=== PATIENT | male | born 1935 | race Caucasian/White ===

== ENCOUNTER 2023-03-10 00:33 | Outpatient (REF) | payer MEDICARE, MEDICAID, SELFPAY ==
[2023-03-10 08:22] LABS: Basophils Absolute Auto 0.1 10^3/uL (0.0-0.1); Basophils Percent Auto 1.4 % (0.2-2.0); Eosinophils Absolute Auto 0.4 10^3/uL (0.0-0.7); Hematocrit 34.1 % (42.0-54.0); Hemoglobin 9.3 g/dL (14.0-18.0); Immature Granulocytes Abs Auto 0.02 10^3/uL (0.00-0.03); Immature Granulocytes Pct Auto 0.3 % (0.0-0.5); Lymphocytes Absolute Auto 2.3 10^3/uL (1.2-3.8); Lymphocytes Percent Auto 32.1 % (20.5-60.0); Mean Corpuscular HGB Conc 27.3 g/dL (29.9-35.2); Mean Corpuscular Hemoglobin 21.5 pg (25.9-34.0); Mean Corpuscular Volume 78.8 fL (80.0-94.0); Mean Platelet Volume 11.3 fL (9.5-13.5); Monocytes Absolute Auto 0.7 10^3/uL (0.3-0.8); Monocytes Percent Auto 9.1 % (1.7-12.0); Neutrophils Absolute Auto 3.7 10^3/uL (1.4-6.5); Neutrophils Percent Auto 52.1 % (43.0-75.0); Platelet Count 313 10^3/uL (150-450); Red Blood Count 4.33 10^6/uL (4.70-6.10); Red Cell Distribution Width 19.9 % (11.0-15.0); White Blood Count 7.1 10^3/uL (4.0-11.0)
[2023-03-10 09:04] LABS: Anion Gap 17.4; BUN Creatinine Ratio 12.2; Carbon Dioxide 26.3 mmol/L (21.0-32.0); Chloride 106 mmol/L (98-107); Estimated GFR (African America 55 (>=60); Estimated GFR (Non-African Ame 45 (>=60); Glucose 89 mg/dL (74-106); Potassium 3.7 mmol/L (3.5-5.1); Sodium 146 mmol/L (136-145)
== END 2023-03-10 00:34 | disposition home or self-care (01) ==
LOC: LAB 00:33
DX: K92.2 Gastrointestinal hemorrhage, unspecified (principal); N17.9 Acute kidney failure, unspecified
CPT/HCPCS: 36415; 80048; 82306; 85025

== ENCOUNTER 2023-03-17 08:45 | Outpatient (OUT) | payer MEDICARE, MEDICAID, SELFPAY ==
[2023-03-17 10:56] LABS: Basophils Absolute Auto 0.1 10^3/uL (0.0-0.1); Eosinophils Absolute Auto 0.4 10^3/uL (0.0-0.7); Eosinophils Percent Auto 7.9 % (0.9-7.0); Hematocrit 29.7 % (42.0-54.0); Hemoglobin 8.2 g/dL (14.0-18.0); Immature Granulocytes Abs Auto 0.02 10^3/uL (0.00-0.03); Immature Granulocytes Pct Auto 0.4 % (0.0-0.5); Lymphocytes Absolute Auto 1.1 10^3/uL (1.2-3.8); Lymphocytes Percent Auto 23.3 % (20.5-60.0); Mean Corpuscular HGB Conc 27.6 g/dL (29.9-35.2); Mean Corpuscular Hemoglobin 21.4 pg (25.9-34.0); Mean Corpuscular Volume 77.3 fL (80.0-94.0); Monocytes Absolute Auto 0.6 10^3/uL (0.3-0.8); Neutrophils Absolute Auto 2.7 10^3/uL (1.4-6.5); Neutrophils Percent Auto 55.4 % (43.0-75.0); Platelet Count 172 10^3/uL (150-450); Red Blood Count 3.84 10^6/uL (4.70-6.10); Red Cell Distribution Width 19.9 % (11.0-15.0); White Blood Count 4.8 10^3/uL (4.0-11.0)
[2023-03-17 10:58] LABS: Percent Iron Saturation 4.3 %
[2023-03-17 11:14] LABS: Alanine Aminotransferase 21 U/L (16-63); Albumin Globulin Ratio 0.9; Albumin Level 3.1 g/dL (3.4-5.0); Alkaline Phosphatase 57 U/L (46-116); Anion Gap 12.2; Aspartate Amino Transferase 18 U/L (15-37); BUN Creatinine Ratio 14.6; Bilirubin Total 0.4 mg/dL (0.2-1.0); Calcium 8.5 mg/dL (8.5-10.1); Carbon Dioxide 28.3 mmol/L (21.0-32.0); Chloride 108 mmol/L (98-107); Estimated GFR (African America 56 (>=60); Estimated GFR (Non-African Ame 46 (>=60); Globulin 3.6 g/dL; Glucose 105 mg/dL (74-106); Potassium 3.5 mmol/L (3.5-5.1); Sodium 145 mmol/L (136-145); Total Protein 6.7 g/dL (6.4-8.2)
[2023-03-18 12:09] LABS: Transferrin 303 mg/dL (149-313)
== END 2023-03-17 08:46 | disposition home or self-care (01) ==
DX: R06.09 Other forms of dyspnea (principal); D64.9 Anemia, unspecified
CPT/HCPCS: 36415; 80053; 82728; 82746; 83540; 83550; 84466; 85025

== ENCOUNTER 2024-01-13 07:51 | Inpatient (IN) | payer MEDICARE, MEDICAID, SELFPAY ==
[2024-01-13] VITALS (68 sets, daily range): BP systolic 82–185; BP diastolic 54–123; PULSE 65–168; RESP 12–20; TEMP 36.3–37.7; O2SAT 89–99; BMI 29.8; BMI 29.7
--- NOTE | 2024-01-13 07:54 | ECG_ITS ---
[facility] Test Date: 2024-01-13 Pat Name: THANH ESPINOZA Department: Room: - Gender: Male [employer]or: : 1935 Requested By: [id number] Order Number: [id number] Reading MD: DOMO SCHROEDER Measurements Intervals [place] Rate: 155 P: -[id number] MO: -98808 QRS: 29 QRSD: 100 T: -77 QT: 326 QTc: 413 Interpretive Statements 01853 Atrial fibrillation with rapid ventricular response 43857 Electronic ventricular pacemaker [address] depression, probably digitalis effect 48928 Twave abnormality, possible inferior ischemia or digitalis effect 0201 -- Analysis based on intrinsic rhythm 9150 abnormal ECG No previous ECG available for comparison Electronically Signed On 01-13-2024 22:31:31 EDT by DOMO SCHROEDER
--- NOTE | 2024-01-13 07:55 | XR_ITS ---
The [address] [address] Patient Name: THANH ESPINOZA MRN: [id number] date: 1935 Sex: M Assigned Patient Location: ER Current Patient Location: ER Accession/Order Number: [id number] Exam Date: 01/13/2024 08:09 Report Date: 01/13/2024 08:29 At the request of: RUDI REGALADO Procedure: XR chest 1V EXAM: Chest one view HISTORY: sob COMPARISON: None. TECHNIQUE: Chest, one view. FINDINGS: There is aortic atherosclerosis and mild to moderate cardiomegaly with cardiac pacemaker device. There is interstitial pulmonary edema with small left effusion and probably a trace right effusion. Bibasilar opacities noted. No pneumothorax. XR/XR chest 1V IMPRESSION: 1. Cardiomegaly with cardiac pacemaker and mild interstitial pulmonary edema with small left effusion. 2. Bibasilar opacities likely related to atelectasis or congestive changes. No lobar consolidation. Electronically authenticated by: NICHOLAS LUND Date: 01/13/2024 08:29
[2024-01-13] MEDS: IPRATROPIUM BROMIDE 0.5 MG/2.5 ML VIAL.NEB IH (08:16)
[2024-01-13] MEDS: METHYLPREDNISOLONE SOD SUCC PF 125 MG/2 ML VIAL IVP (08:22)
--- OUTSIDE RECORDS SUMMARY | 2024-01-13 08:23 | XMS_ITS | CCD ---
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 Name Role Phone CECILIO, YONI E Unavailable Unavailable CECILIO, YONI E Unavailable Unavailable CECILIO, YONI E Unavailable Unavailable CECILIO, YONI E Unavailable Unavailable CECILIO, YONI Unavailable Unavailable CECILIO, YONI Unavailable Unavailable MARINA, BOO L Unavailable Unavailable CECILIO, YONI Unavailable Unavailable CECILIO, YONI Unavailable Unavailable SALAS BOO L Unavailable Unavailable CECILIO, YONI Unavailable Unavailable MARINA BOO L Unavailable Unavailable CECILIO, YONI Unavailable Unavailable Wartmann, Turner Unavailable Unavailable Marina Boo Unavailable Unavailable Warsherwinann, Turner Unavailable Unavailable Boo Marina DO Primary Care Provider Luke Beach DO Unavailable Boo Marina DO Primary Care Provider Luke Beach DO Unavailable BOO MARINA DO Primary Care Physician Boo Marina DO Primary Care Provider CAMRYN DAVILA Attending Unavailable CAMRYN DAVILA Admitting Unavailable BOO MARINA Primary Care Unavailable Boo Marina DO Primary Care Provider Luke Beach DO Unavailable KAREEM SHEN MD Attending Unavailable BOO MARINA DO Primary Care Unavailable KAREEM SHEN MD Admitting Unavailable KAREEM SHEN MD Attending Unavailable BOO MARINA DO Primary Care Unavailable KAREEM SHEN MD Admitting Unavailable PRZYBYSZ MD, SILVIA Consulting Unavailable AC PILLAI, KAREEM Consulting Unavailable MARINA DO, BOO Primary Care Unavailable APRYL METCALF DO Admitting Unavailable DAYLIN PILLAI, COLBY Consulting Unavailable SONU RUEDA DO Attending Unavailable Luke Beach DO Unavailable [phone] John RN, Femi Unavailable Unavailabl e MARINA, BOO DO Referring Unavailable IHEONUNEKWU, CHIZITE Attending Unavailable IHEONUNEKWU, CHIZITE Primary Care Unavailable IHEONUNEKWU, CHIZITE Admitting Unavailable MARINA, BOO DO Consulting Unavailable PROVIDER, UNKNOWN Consulting Unavailable CASS WHARTON MD Attending Unavailable CASS WHARTON MD Primary Care Unavailable CASS WHARTON MD Admitting Unavailable MARINA, BOO DO Consulting Unavailable MARINA, BOO DO Referring Unavailable PROVIDER, UNKNOWN Consulting Unavailable CLEM CARRION MD Attending Unavailable CLEM CARRION MD Primary Care Unavailable CLEM CARRION MD Admitting Unavailable MARINA, BOO DO Consulting Unavailable MARINA, BOO DO Referring Unavailable PROVIDER, UNKNOWN Consulting Unavailable MARINA, BOO DO Referring Unavailable WAYNE, COLBY DO Attending Unavailable WAYNE, COLBY DO Primary Care Unavailable LYLERASHANTI, COLBY DO Admitting Unavailable MARINA, BOO DO Consulting Unavailable PROVIDER, UNKNOWN Consulting Unavailable SATNAM MADRID Attending Unavailable SATNAM MADRID Primary Care Unavailable SATNAM MADRID Admitting Unavailable MARINA, BOO DO Referring Unavailable MARINA, BOO DO Consulting Unavailable PROVIDER, UNKNOWN Consulting Unavailable COLBY MURRAY J Referring Unavailable MARINA, BOO L Primary Care Unavailable ERIC HOFFMAN Admitting Unavailable ERIC HOFFMAN Attending Unavailable TRACEE ESCALONA Referring Unavailable MARINA, BOO David Primary Care Unavailable LUKE SUN Attending Unavailable LUKE SUN Primary Care Unavailable Luke Sun DO Primary Care Provider Nanci Jarvis Primary Care Physician MARINA, BOO L Primary Care Unavailable MARINA, BOO L Referring Unavailable MARINA, BOO L Primary Care Unavailable MARINA, BOO L Attending Unavailable JUAN CARLOS CUADRA Attending Unavailable JUAN CARLOS CUADRA Referring Unavailable MARINA, BOO L Primary Care Unavailable EKTA MANDUJANO Referring Unavailable MARINA, BOO L Primary Care Unavailable EKTA MANDUJANO Attending Unavailable MARINA, BOO L Primary Care Unavailable MARINA, BOO L Primary Care Unavailable CAMRYN DAVILA Attending Unavailable DAVILA CAMRYN Referring Unavailable MARINA, BOO L Referring Unavailable MARINA, BOO L Primary Care Unavailable ZORAIDA HODGE Attending Unavailable MARINA, BOO L Primary Care Unavailable CAMRYN DAVILA Attending Unavailable NIMA DAVILAE Referring Unavailable DAVILACAMRYN Attending Unavailable MARINA, BOO L Primary Care Unavailable ANA MARIA JOLLY Attending Unavailable MARINA, BOO L Primary Care Unavailable DAVILACAMRYN JACINTO Attending Unavailable RIK, ANA MARIA Referring Unavailable MARINA, BOO L Primary Care Unavailable MARINA, BOO L Primary Care Unavailable ZORAIDA HODGE Attending Unavailable MARINA, BOO L Primary Care Unavailable MARINA, BOO L Referring Unavailable Johnny VILLEDA Attending Unavailable Johnny VILLEDA Admitting Unavailable Johnny VILLEDA Referring Unavailable Johnny VILLEDA Attending Unavailable Johnny VILLEDA Admitting Unavailable Pat Castro Attending Unavailable Matheus, Nanci Attending Unavailable Matheus, Nanci Attending Unavailable Nanci Jarvis Attending Unavailable Nanci Jarvis Attending Unavailable Johnny VILLEDA Admitting Unavailable Johnny VILLEDA Attending Unavailable Souleymane BUCK Admitting Unavailable Sourav Canales Attending Unavailable Bela Suero Talal Consulting Unavaila MD Bela Ayers Talal Consulting Unava ilable Bela Suero Talal Consulting Unavaila Bela Ayers Talal Consulting Unavaila ble Johnny VILLEDA Admitting Unavailable Johnny VILLEDA Attending Unavailable Matheus, Nanci Referring Unavailable Johnny VILLEDA Attending Unavailable Johnny VILLEDA Admitting Unavailable NONE, XXXX Referring Unavailable NONE, XXXX Referring Unavailable Elijah Turner Attending Unavailable Elijah Turner Admitting Unavailable Johnny VILLEDA Admitting Unavailable Johnny VILLEDA Attending Unavailable NONE, XXXX Referring Unavailable Johnny VILLEDA Attending Unavailable Johnny VILLEDA Admitting Unavailable NONE, XXXX Referring Unavailable Johnny VILLEDA Admitting Unavailable Johnny VILLEDA Referring Unavailable Johnny VILLEDA Attending Unavailable Johnny VILLEDA Attending Unavailable Johnny VILLEDA Admitting Unavailable Johnny VILLEDA Referring Unavailable Johnny VILLEDA Referring Unavailable Lavell Winters Attending Unavailable Lavell Winters Admitting Unavailable Pat Castro Attending Unavailable Johnny Villeda Referring Unavailable Johnny Villeda Attending Unavailable Johnny Villeda Admitting Unavailable Kareem Epperson Consulting Unavaila Kareem Javier Consulting Unavaila Kareem Javier Consulting Unavaila ble ERIC WILLOUGHBY Attending Unavailable ERIC WILLOUGHBY Attending Unavailable ERIC WILLOUGHBY Attending Unavailable NATALIE TURK Attending Unavailable ERIC WILLOUGHBY Attending Unavailable NATALIE TURK Attending Unavailable ANTONINA ARENAS Attending Unavailable Allergies Allergy Classification Reported Allergen(s) Allergy Type Date of Onset Reaction(s) Facility (20 sources) Dust; 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: [DUST] Propensity to adverse reactions (disorder) 8 Other: See Comments [facility] Repository (20 sources) Grass pollen; 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: [GRASS POLLEN] Propensity to adverse reactions to drug (disorder) 8 Other: See Comments [facility] Repository (20 sources) Mold spore; 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: [MOLD SPORES] Propensity to adverse reactions (disorder) 8 Other: See Comments [facility] Repository (9 sources) Banana Extract; 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: [BANANA] Drug Allergy 3 Itching [facility] (1 source) No Known Medication Allergies; 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: [No Known Medication Allergies] Propensity to adverse reactions (disorder) [facility] Repository Medications Current Medications Medication Drug Class(es) Dates Sig (Normalized) Sig (Original) Adult nebulizer with mask and tubing (8 sources) Start: 03-14-2023 Adult nebulizer with mask and tubing Adult nebulizer with mask and tubing, See Instructions, 1 EA, 0, Adult nebulizer with mask and tubing, uses q4h prn, Supply Start Date: 03/14/23 Status: Ordered Albuterol / Ipratropium (6 sources) Anticholinergic, beta2-Adrenergic Agonist Start: 04-10-2023 take 3 mL by inhalation every six hours as needed albuterol-ipratr opium See Instructions, Refill(s) 0, 3 ml inhale q6h PRN SOB Start Date: 04/10/23 Status: Ordered amiodarone hydrochloride 100 mg oral tablet (1 source) Antiarrhythmic Start: 03-07-2022 amiodarone 100 mg oral tablet Dose : 100 mg = 1 tab(s), Oral, qDay, # 30 tab(s), 11 Refill(s), Pharmacy: [id number], A-fib, 177, cm, 03/07/22 14:11:00 EST, Height Start Date: 03/07/22 Status: Ordered apixaban 2.5 mg oral tablet (20 sources) Factor Xa Inhibitor Start: 12-10-2022 End: 01-09-2023 take 1 tablet by mouth twice daily Eliquis 2.5 mg oral tablet 2.5 mg = 1 tab(s), Oral, BID, # 60 EA, Refills(s) 5, Pharmacy: [facility][id number], 175, cm, 01/03/23 13:27:00 EDT, Height/Length Dosing, 88.4, kg, 01/03/23 13:27:00 EDT, Weight Dosing Start Date: 01/07/23 Status: Ordered Start: 10-06-2020 End: 07-08-2022 take 1 tablet by mouth twice daily apixaban (ELIQUIS) 2.5 mg tab(s) Take 1 tablet by mouth twice daily. 180 tablet 3 07/08/2022 Suspended Comment on above: Take 1 tablet by chris th twice daily. TAKE 1 TABLET BY CHRIS TH TWICE A DAY aspirin 81 mg delayed release oral tablet (20 sources) Platelet Aggregation Inhibitor, Nonsteroidal Anti-inflammatory Drug Start: 12-24-2022 take 1 tablet by mouth once daily aspirin 81 mg Oral EC Tab 81 mg = 1 tab(s), Oral, Daily, # 90 tab(s), Refills(s) 0 Start Date: 12/24/22 Status: Ordered Start: 12-11-2022 End: 01-10-2023 take 1 tablet by mouth once daily aspirin 81 mg chewable tablet Chew 1 tablet by mouth once daily. 30 tablet 0 12/11/2022 Active Start: 03-07-2022 aspirin 81 mg oral delayed release tablet Dose : 81 mg = 1 tab(s), Oral, Daily, 0 Refill(s) Start Date: 03/07/22 Status: Ordered Comment on above: Take 81 mg by mouth once daily. Chew 1 tablet by chris th once daily. atorvastatin 40 mg oral tablet (20 sources) HMG-CoA Reductase Inhibitor Start: 3 End: 3 take 1 tablet by mouth once daily atorvastatin 40 mg Tab 40 mg = 1 tab(s), Oral, Daily, # 30 tab(s), Refills(s) 5, Pharmacy: [id number], 175, cm, 01/03/23 13:27:00 EDT, Height/Length Dosing, 88.4, kg, 01/03/23 13:27:00 EDT, Weight Dosing Start Date: 01/07/23 Status: Ordered Start: 02-06-2021 End: 07-08-2022 take 1 tablet by mouth once daily atorvastatin (LIPITOR) 40 mg tablet Indications: Dyslipidemia Take 1 tablet by mouth once daily. 90 tablet 3 07/08/2022 Suspended Comment on above: Take 1 tablet by chris th once daily. Take 1 tablet by chris th daily at bedtime. benoxinate hydrochloride 4 mg/ml / fluorescein sodium 2.5 mg/ml ophthalmic solution (2 sources) Diagnostic Dye Start: 01-30-20 End: 01-31-20 fluorescein-benox inate 0.25-0.4 % 1 Drop (FLURESS) cefdinir 300 mg oral capsule (1 source) Cephalosporin Antibacterial Start: 07-05-19 End: 07-15-19 take 1 capsule by mouth twice daily cefdinir (OMNICEF) 300 mg capsule Indications: Acute infective otitis externa, bilateral Take 1 capsule by mouth twice daily for 10 days. 20 capsule 0 07/04/2021 07/14/2021 Active Comment on above: Take [address] [facility] twice daily for 10 days. cholecalciferol 0.05 mg oral capsule (18 sources) Vitamin D Start: 07-24-19 End: 03-12-20 take 1 capsule by mouth once daily Cholecalciferol, Vitamin D3, 50 mcg (2,000 unit) cap Take 1 capsule by mouth once daily. 30 capsule 3 12/12/2022 03/12/2023 Active Comment on above: Take [address] [facility] once daily. donepezil hydrochloride 10 mg oral tablet (11 sources) Start: 02-02-20 take 1 tablet by mouth once daily at bedtime donepezil 10 mg Tab 10 mg = 1 tab(s), Oral, Once a day (at bedtime), Refills(s) 0 Start Date: 02/01/23 Status: Ordered Ensure (11 sources) Start: 02-22-20 Ensure 237 mL, Oral, BIDWM, Refill(s) 0 Start Date: 02/21/23 Status: Ordered ezetimibe 10 mg oral tablet (20 sources) Dietary Cholesterol Absorption Inhibitor Start: 12-25-19 take 1 tablet by mouth once daily ezetimibe 10 mg Tab 10 mg = 1 tab(s), Oral, Daily, # 90 tab(s), Refills(s) 0 Start Date: 12/24/22 Status: Ordered Start: 04-05-2021 End: 12-12-2022 take 1 tablet by mouth once daily ezetimibe 10 mg Tab 10 mg = 1 tab(s), Oral, Daily, # 90 tab(s), Refills(s) 0 Start Date: 12/24/22 Status: Ordered Comment on above: Take 1 tablet by chris th once daily. fenofibrate 54 mg oral tablet (20 sources) Peroxisome Proliferator Receptor alpha Agonist Start: take 1 tablet by mouth once daily fenofibrate 54 mg oral tablet 54 mg = 1 tab(s), Oral, Daily, # 90 tab(s), Refills(s) 0 Start Date: 12/24/22 Status: Ordered Start: 06-25-2021 End: 12-12-2022 take 1 tablet by mouth once daily fenofibrate 54 mg oral tablet 54 mg = 1 tab(s), Oral, Daily, # 90 tab(s), Refills(s) 0 Start Date: 12/24/22 Status: Ordered Comment on above: Take 1 tablet by chris th once daily. Johanna (9 sources) Histamine-1 Receptor Antagonist Start: 03-11-2023 Johanna Refills(s) 0 Start Date: 03/11/23 Status: Ordered furosemide 20 mg oral tablet (20 sources) Loop Diuretic Start: 12-24-2022 take 1 tablet by mouth once daily as needed for edema furosemide 20 mg Tab 20 mg = 1 tab(s), Oral, Daily, PRN Edema, # 90 tab(s), Refills(s) 0 Start Date: 12/24/22 Status: Ordered Start: 04-05-2021 End: 12-12-2022 take 1 tablet by mouth once daily as needed for edema furosemide 20 mg Tab 20 mg = 1 tab(s), Oral, Daily, PRN Edema, # 90 tab(s), Refills(s) 0 Start Date: 12/24/22 Status: Ordered Comment on above: Take 1 tablet by chris th daily after breakfast. For swelling TAKE 1 TABLET BY CHRIS TH DAILY AFTER BREAKFAST *FOR SWELLING memantine hydrochloride 10 mg oral tablet (1 source) E-ujuqvq-Y-aspartate Receptor Antagonist Start: 11-13-2023 memantine 10 mg Tab 30 tab(s), 0 Refill(s), Refills(s) 0 Start Date: 11/13/23 Status: Ordered 24 hr nicotine 0.875 mg/hr transdermal system (11 sources) Cholinergic Nicotinic Agonist Start: 09-11-2023 nicotine 21 mg/24 hr Transderm ER Film 1 patch(es), Topical, Daily, 90 EA, Refill(s) 0, [facility], 175, cm, 09/11/23 15:11:00 EDT, Height/Length Dosing, 94.7, kg, 09/11/23 15:29:00 EDT, Weight Dosing Start Date: 09/11/23 Status: Ordered Start: 02-21-2023 nicotine 14 mg /24 hr Transderm ER Film TransDermal, Daily, Refill(s) 0 Start Date: 02/21/23 Status: Ordered nitroglycerin 0.4 mg sublingual tablet (20 sources) Nitrate Vasodilator Start: 12-24-2022 nitroglyce rin 0.4 mg sublingual Tab 0.4 mg = 1 tab(s), SubLingual, q5min, PRN for chest pain, # 100 tab(s), Refills(s) 0 Start Date: 12/24/22 Status: Ordered Start: 04-23-2021 End: 12-12-2022 nitroglycerin 0.4 mg subling ual Tab 0.4 mg = 1 tab(s), SubLingual, q5min, PRN for chest pain, # 100 tab(s), Refills(s) 0 Start Date: 12/24/22 Status: Ordered Comment on above: Dissolve 1 tablet un ranjana the tongue every 5 minutes as needed. pantoprazole 40 mg delayed release oral tablet (20 sources) Proton Pump Inhibitor Start: 3 take 1 tablet by mouth twice daily Pantoprazole [address] Tab 40 mg = 1 tab(s), Oral, BID, # 60 tab(s), Refills(s) 5, Pharmacy: [id number], 175, cm, 01/03/23 13:27:00 EDT, Height/Length Dosing, 88.4, kg, 01/03/23 13:27:00 EDT, Weight Dosing Start Date: 01/07/23 Status: Ordered Start: 12-11-2022 End: 01-10-2023 take 1 tablet by mouth once daily, then take 6 tablets by mouth in the morning pantoprazole DR (PROTONIX) 40 mg tablet Take 1 tablet by mouth DAILY (6 AM). 30 tablet 0 12/11/2022 Active Comment on above: Take 1 tablet by chris th DAILY (6 AM). phenylephrine hydrochloride 25 mg/ml ophthalmic solution (2 sources) alpha-1 Adrenergic Agonist Start: 01-29-2022 End: 01-30-2022 PHENYLephrine 2.5 % 1 Drop (AK-DILATE, RAKESH-SYNEPHRINE) proparacaine hydrochloride 5 mg/ml ophthalmic solution (3 sources) Local Anesthetic Start: 04-10-2022 End: 04-11-2022 proparacaine 0.5 % 1 Drop (ALCAINE) Start: 01-29-2022 End: 01-30-2022 proparacaine 0.5 % 1 Drop (A LCAINE) Psyllium (6 sources) Start: 04-10-2023 Metamucil Refills(s) 0 Start Date: 04/10/23 Status: Ordered tropicamide 10 mg/ml ophthalmic solution (2 sources) Anticholinergic Start: 01-29-2022 End: 01-30-2022 tropicamide 1 % 1 Drop (MYDRIACYL) Vitamin D3 2000 intl units oral Tab (14 sources) Start: 12-24-2022 take 1 tablet by mouth once daily Vitamin D3 2000 intl units oral Tab 50 mcg, Oral, Daily, tab(s), Refills(s) 0 Start Date: 12/24/22 Status: Ordered Completed/Discontinued Medications Medication Drug Class(es) Dates Sig (Normalized) Sig (Original) [id number] 200 actuat albuterol 0.09 mg/actuat metered dose inhaler (20 sources) beta2-Adrenergic Agonist Start: 10-11-2020 End: 12-12-2022 take 2 puff(s) by inhalation every four hours as needed for wheezing albuterol HFA (VENTOLIN HFA) 90 mcg/actuation inhaler Inhale 2 Puffs as instructed every 4 hours as needed for wheezing/shortness of breath. 18 g 2 10/11/2020 12/12/2022 Discontinued Comment on above: Inhale 2 Puffs as in structed every 4 hours as needed for wheezing/shortness of breath. doxycycline hyclate 100 mg oral capsule (3 sources) Tetracycline-class Drug Start: 04-10-2022 End: 04-24-2022 take 1 capsule by mouth twice daily doxycycline hyclate (VIBRAMYCIN) 100 mg capsule Take 1 capsule by mouth twice daily for 14 days. 28 capsule 0 04/10/2022 04/24/2022 Comment on above: Take 1 capsule by [facility] twice daily for 14 days. erythromycin 0.005 mg/mg ophthalmic ointment (20 sources) Macrolide, Macrolide Antimicrobial Start: 03-06-2022 apply 5 mg into the eye(s) twice daily erythromycin (ROMYCIN) 5 mg/gram (0.5 %) ophthalmic ointment In both eyes and on incisions four times a day X 1 wk then twice a day x 1 wk 7 g 2 03/06/2022 Suspended Start: 02-27-2022 erythromycin ( ROMYCIN) 5 mg/gram (0.5 %) ophthalmic ointment Apply 1/2 inch ribbon per application to incision and in eye four times a day X 1 wk then twice a day x 1 wk 7 g 2 02/27/2022 Suspended Comment on above: Apply 1/2 inch ribbo n per application to incision and in eye four times a day X 1 wk then twice a day x 1 wk In both eyes and on incisions four times a day X 1 wk then twice a day x 1 wk fluticasone propionate 0.05 mg/actuat metered dose nasal spray (20 sources) Corticosteroid Start: 07-09-19 19 take 1 spray(s) nasal route once daily at bedtime fluticasone (FLONASE) 50 mcg/actuation nasal spray Indications: Chronic seasonal allergic rhinitis due to pollen Use 1 [place] in each nostril daily at bedtime. 1 Bottle 6 07/08/2018 Suspended Comment on above: Use 1 [place] in each nostril daily at bedtime. gramicidin 0.025 mg/ml / neomycin 1.75 mg/ml / polymyxin b [id number] unt/ml ophthalmic solution (20 sources) Aminoglycoside Antibacterial, Polymyxin-class Antibacterial Start: 09-29-19 neomycin-polymyxin- gramicidin (NEOMYCIN) 1.75 mg-10,000 unit-0.025mg/mL drop Indications: Eczema of both external ears , Chronic eczematous otitis externa of both ears Apply 3 drops to each ear twice daily. 10 mL 2 09/28/2021 Active Comment on above: Apply 3 drops to eac h ear twice daily. hydrocortisone 10 mg/ml / neomycin 3.5 mg/ml / polymyxin b [id number] unt/ml otic suspension (20 sources) Aminoglycoside Antibacterial, Polymyxin-class Antibacterial, Corticosteroid Start: 09-29-19 neomycin-polymyxin- hydrocortisone (CORTISPORIN) 3.5-10,000-1 mg/mL-unit/mL-% otic suspension Indications: Eczema of both external ears , Chronic eczematous otitis externa of both ears Use 4 Drops in the ears four times daily. 10 mL 2 09/28/2021 Active Comment on above: Use 4 Drops in the e ars four times daily. ketoconazole 20 mg/ml topical cream (20 sources) Azole Antifungal Start: 01-08-20 ketoconazole (NIZORAL) 2 % shampoo Indications: Seborrheic dermatitis of scalp Apply to affected area once daily as needed for itching/rash. 120 mL 1 01/07/2022 Suspended Start: 01-07-2022 ketoconazole ( NIZORAL) 2 % cream Indications: Seborrheic dermatitis of scalp Apply to affected area twice daily. To the ear for rash 30 g 1 01/07/2022 Suspended Comment on above: Apply to affected ar ea twice daily. To the ear for rash Apply to affected ar ea once daily as needed for itching/rash. lisinopril 5 mg oral tablet (20 sources) Angiotensin Converting Enzyme Inhibitor Start: 3 take 1 tablet by mouth once daily lisinopril (ZESTRIL) 5 mg tablet Indications: Essential hypertension Take 1 tablet by mouth once daily. For blood pressure 90 tablet 1 10/08/2022 Suspended Start: 12-03-2021 End: 07-08-2022 take 1 tablet by mouth once daily lisinopril (ZESTRIL) 20 mg tablet Indications: Atrial fibrillation, persistent (HCC) Take 1 tablet by mouth once daily. 28 tablet 3 07/08/2022 Active Start: 04-05-2021 End: 10-12-2021 take 1 tablet by mouth once daily lisinopril (ZESTRIL, PRINIVIL) 20 mg tablet Indications: Atrial fibrillation, persistent (HCC) TAKE 1 TABLET BY MOUTH DAILY 30 tablet 2 10/12/2021 Active Comment on above: Take 1 tablet by chris th once daily. TAKE 1 TABLET BY CHRIS TH DAILY Take 1 tablet by chris th once daily. For blood pressure Magnesium (20 sources) take 1 tablet by mouth once daily Magnesium 250 mg tab Take 250 mg by mouth once daily. 0 Suspended take 1 tablet by mouth once hammad y Magnesium 250 mg tab Take 250 mg by mouth once daily. 0 Active Comment on above: Take 250 mg by mouth once daily. metoprolol tartrate 100 mg oral tablet (20 sources) beta-Adrenergic Isha Start: 1 End: 3 take 1 tablet by mouth twice daily metoprolol tartrate, short acting, (LOPRESSOR) 100 mg tablet Indications: Atrial fibrillation, persistent (HCC) Take 1 tablet by mouth twice daily. 180 tablet 3 07/08/2022 Suspended Comment on above: Take 1 tablet by chris th twice daily. mupirocin 0.02 mg/mg topical ointment (3 sources) RNA Synthetase Inhibitor Antibacterial Start: 2 End: 3 mupirocin (BACTROBAN) 2 % ointment Apply to affected area three times daily for 14 days. 15 g 0 04/10/2022 04/24/2022 Comment on above: Apply to affected ar ea three times daily for 14 days. potassium chloride 10 meq extended release oral tablet (20 sources) Start: Potassium Chloride (Eqv-K-Tab) 20 mEq oral tablet, extended release Dose : 20 mEq = 1 tab(s), Oral, qDay, Take with food, # 30 tab(s), 0 Refill(s) Start Date: 12/03/21 Status: Ordered Start: 10-15-2021 End: 07-08-2022 take 1 tablet by mouth once daily potassium chloride (KLOR-CON 10) 10 mEq tablet Take 1 tablet by mouth once daily. 30 tablet 11 07/08/2022 Suspended Start: 12-19-2020 End: 10-12-2021 take 1 tablet by mouth once daily potassium chloride (KLOR-CON 10) 10 mEq tablet Take 1 tablet by mouth once daily. 90 tablet 3 12/19/2020 10/12/2021 Discontinued Comment on above: Take 1 tablet by chris th once daily. POTASSIUM-99 ORAL (3 sources) Start: 12-04-19 POTASSIUM-99 ORAL Take by mouth. 0 12/03/2021 Active Comment on above: Take by mouth. predniSONE 20 mg oral tablet (3 sources) Start: 12-17-19 take 1 tablet by mouth once daily predniSONE (DELTASONE) 20 mg tablet Indications: Pain and swelling of toe of right foot Take 1 tablet by mouth once daily. 5 tablet 0 12/16/2022 Active Comment on above: Take 1 tablet by chris th once daily. sennosides, halfway 8.6 mg oral tablet (20 sources) take 1 tablet by mouth once daily as needed senna (SENOKOT) 8.6 mg tab Take 8.6 mg by mouth once daily as needed. 0 Active Comment on above: Take 8.6 mg by mouth once daily as needed. sertraline 50 mg oral tablet (20 sources) Serotonin Reuptake Inhibitor Start: 10-09-19 End: 12-04-19 take 1 tablet by mouth once daily at dinner sertraline (ZOLOFT) 50 mg tablet Indications: DANIEL (generalized anxiety disorder) Take 1 tablet by mouth daily with dinner. 90 tablet 1 12/04/2022 Suspended Comment on above: Take 1 tablet by chris th daily with dinner. triamcinolone acetonide 1 mg/ml topical lotion (20 sources) Corticosteroid Start: 06-10-20 22 triamcinolone (KENALOG) 0.1 % lotion Indications: Eczema of both external ears , Chronic eczematous otitis externa of both ears Apply to affected area three times daily. 60 mL 2 09/28/2021 Suspended Comment on above: Apply to affected ar ea three times daily. warfarin sodium 4 mg oral tablet (20 sources) Vitamin K Antagonist Start: 01-18-20 12 take 1 tablet by mouth once daily warfarin (COUMADIN) 4 mg tablet Take 1 tablet by mouth once daily. 0 01/18/2012 Suspended Comment on above: Take 1 tablet by chris once daily. Problems Active Problems Problem Classification Problem Date Documented Da te Episodic/Chronic Acute cerebrovascular disease (12 sources) Cerebrovascular accident; 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: [Cerebral infarction, unspecified] Onset: 12-06-2022 12-06-2022 Chronic Administrative/social admission (5 sources) Patient encounter status; 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: [Persons encountering health services in other specified circumstances] Onset: 12-24-2022 Episodic Anxiety disorders (20 sources) Generalized anxiety disorder; 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: [Generalized anxiety disorder] Onset: 10-09-2021 10-09-2021 Chronic Comment on above: noted in 01/16/2023 Transfer In Records page 17. added per [facility] policy. Aortic; peripheral; and visceral artery aneurysms (7 sources) Abdominal aortic aneurysm, without rupture; 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: [Abdominal aortic aneurysm without rupture] Onset: 07-09-2016 12-03-2021 Chronic Cardiac dysrhythmias (20 sources) Paroxysmal atrial fibrillation; 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: [Sick sinus syndrome] Onset: 08-10-2015 08-10-2015 Chronic Cardiac dysrhythmias (20 sources) Palpitations; 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: [Palpitations] Onset: 12-23-2019 09-19-2021 Episodic Cataract (2 sources) Bilateral pseudophakia; 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: [Presence of intraocular lens] Chronic Chronic kidney disease (20 sources) Chronic kidney disease stage 3B ; 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: [Stage 3b chronic kidney disease] Onset: 12-21-2015 07-02-2021 Chronic Comment on above: noted in 01/16/2023 Transfer In Records page 17. added per [facility] policy. Chronic kidney disease (1 source) Chronic kidney disease; 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: [Chronic kidney disease, stage 3 unspecified] Onset: 08-08-2022 Chronic obstructive pulmonary disease and bronchiectasis (20 sources) Chronic obstructive lung disease; 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: [Chronic obstructive pulmonary disease, unspecified] Onset: 01-29-2016 01-29-2016 Chronic Comment on above: noted in 01/16/2023 Transfer In Records page 17. added per [facility] policy. Coagulation and hemorrhagic disorders (20 sources) Platelet count below reference range; 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: [Thrombocytopenia, unspecified] 07-09-2016 Chronic Complication of device; implant or graft (1 source) Pacemaker battery depletion 12-03-2021 Episodic Complications of surgical procedures or medical care (1 source) Wound dehiscence; 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: [Disruption of wound, unspecified, initial encounter] Episodic Conduction disorders (20 sources) Cardiac pacemaker in situ; 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: [Presence of cardiac pacemaker] Onset: 08-10-2015 03-03-2020 Chronic Congestive heart failure; nonhypertensive (20 sources) Chronic combined systolic and diastolic heart failure; 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: [Chronic combined systolic (congestive) and diastolic (congestive) heart failure] Onset: 09-26-2020 09-26-2020 Chronic Coronary atherosclerosis and other heart disease (20 sources) Atherosclerotic heart disease of [place] coronary artery without angina pectoris; 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: [History of myocardial infarction] Onset: 08-10-2015 03-03-2020 Chronic Comment on above: noted in 01/02/2023 Cardiology Consult Note. added per [facility] policy. Deficiency and other anemia (11 sources) Anemia; 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: [Anemia, unspecified] Onset: 03-11-2023 Episodic Delirium, dementia, and amnestic and other cognitive disorders (20 sources) Senile asthenia; 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: [Age-related physical debility] Onset: 12-12-2022 12-12-2022 Chronic Comment on above: noted in 01/08/2023 Neurology Consult Note page 2. added per [facility] policy. Developmental disorders (2 sources) Intellectual disability; 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: [Unspecified intellectual disabilities] Onset: 12-12-2022 12-13-2022 Chronic Diabetes mellitus without complication (20 sources) Impaired fasting glycemia; 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: [Impaired fasting glucose] Onset: 10-09-2021 10-09-2021 Episodic Comment on above: noted in 01/16/2023 Transfer In Records page 17. added per [facility] policy. Disorders of lipid metabolism (20 sources) Other hyperlipidemia; 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: [Dyslipidemia] Onset: 08-10-2015 08-10-2015 Chronic Essential hypertension (20 sources) Essential hypertension; 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: [Essential (primary) hypertension] Onset: 06-19-2016 06-19-2016 Chronic Hyperplasia of prostate (20 sources) Benign prostatic hyperplasia; 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: [Benign prostatic hyperplasia without lower urinary tract symptoms] Onset: 12-30-2020 12-30-2020 Chronic Hypertension with complications and secondary hypertension (20 sources) Hypertensive heart AND chronic kidney disease stage 3; 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: [Hypertensive heart and chronic kidney disease with heart failure and stage 1 through stage 4 chronic kidney disease, or unspecified chronic kidney disease] Onset: 12-23-2019 07-02-2021 Chronic Immunizations and screening for infectious disease (2 sources) Needs influenza immunization; 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: [Encounter for immunization] Episodic Inflammation; infection of eye (except that caused by tuberculosis or sexually transmitteddisease) (2 sources) Squamous blepharitis; 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: [Squamous blepharitis right eye, upper and lower eyelids] Episodic Neoplasms of unspecified nature or uncertain behavior (1 source) Neoplastic disease; 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: [Neoplasm of unspecified behavior of bone, soft tissue, and skin] Episodic Nutritional deficiencies (20 sources) Vitamin D deficiency; 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: [Vitamin D deficiency, unspecified] Onset: 01-09-2022 Chronic Comment on above: noted in 01/16/2023 Transfer In Records page 9. added per [facility] policy. Occlusion or stenosis of precerebral arteries (20 sources) Right carotid artery stenosis; 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: [Occlusion and stenosis of right carotid artery] Onset: 08-10-2015 08-10-2015 Chronic Other and ill-defined heart disease (20 sources) Left ventricular cardiac dysfunction; 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: [Heart disease, unspecified] Onset: 08-10-2015 03-03-2020 Chronic Other circulatory disease (20 sources) Past history of procedure; 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: [Presence of other vascular implants and grafts] Onset: 08-10-2015 03-03-2020 Chronic Other circulatory disease (20 sources) History of insertion of iliac stent; 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: [Presence of other vascular implants and grafts] Onset: 08-10-2015 03-03-2020 Chronic Other circulatory disease (1 source) History of transient ischemic attack; 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: [Personal history of transient ischemic attack (TIA), and cerebral infarction without residual deficits] Onset: 12-24-2022 Episodic Other connective tissue disease (20 sources) Muscle weakness; 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: [Muscle weakness (generalized)] Onset: 10-08-2022 10-08-2022 Episodic Comment on above: noted in 01/16/2023 Transfer In Records page 9. added per [facility] policy. Other connective tissue disease (7 sources) Weakness of face muscles; 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: [Facial weakness] Onset: 12-06-2022 12-06-2022 Episodic Other connective tissue disease (1 source) Pain in right toe(s); 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: [Pain and swelling of toe of right foot] Onset: 12-16-2022 Episodic Other connective tissue disease (1 source) Other specified soft tissue disorders; 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: [Pain and swelling of toe of right foot] Onset: 12-16-2022 Episodic Other connective tissue disease (1 source) Pain in toe; 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: [Pain in right toe(s)] 12-16-2022 Episodic Other connective tissue disease (1 source) Pain in lower limb; 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: [Pain in unspecified lower leg] Onset: 11-13-2023 Episodic Other ear and sense organ disorders (20 sources) Chronic otitis externa; 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: [Unspecified chronic otitis externa, unspecified ear] Onset: 06-30-2014 06-30-2014 Chronic Other ear and sense organ disorders (2 sources) Chronic eczema of external auditory canal; 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: [Other otitis externa, bilateral] Chronic Other eye disorders (1 source) Bilateral vitreous degeneration of eyes; 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: [Vitreous degeneration, bilateral] Chronic Other eye disorders (2 sources) Corneal guttata; 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: [Corneal guttata of both eyes] Episodic Other gastrointestinal disorders (1 source) Abnormal feces; 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: [Other fecal abnormalities] Onset: 03-11-2023 Episodic Other gastrointestinal disorders (9 sources) Loose stool 03-11-2023 Episodic Other nervous system disorders (20 sources) Neuropathy; 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: [Polyneuropathy, unspecified] 07-09-2016 Chronic Comment on above: noted in 01/16/2023 Transfer In Records page 8. added per [facility] policy. Other nervous system disorders (1 source) Polyneuropathy, unspecified; 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: [Neuropathy] Onset: 07-09-2016 Chronic Other nervous system disorders (2 sources) Polyneuropathy; 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: [Polyneuropathy, unspecified] Onset: 02-24-2023 Chronic Other nervous system disorders (20 sources) Abnormal gait; 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: [Unspecified abnormalities of gait and mobility] Onset: 10-08-2022 10-08-2022 Episodic Comment on above: noted in 01/16/2023 Transfer In Records page 9. added per [facility] policy. Other nutritional; endocrine; and metabolic disorders (20 sources) Cholesterol level - finding; 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: [Lipoprotein deficiency] 07-09-2016 Chronic Other nutritional; endocrine; and metabolic disorders (1 source) Obese class I; 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: [Body mass index (BMI) 30.0-30.9, adult] Onset: 09-11-2023 Chronic Other nutritional; endocrine; and metabolic disorders (1 source) Obesity; 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: [Other obesity due to excess calories] Onset: 09-11-2023 Chronic Other nutritional; endocrine; and metabolic disorders (3 sources) Body mass index 30+ - obesity 09-11-2023 Chronic Other nutritional; endocrine; and metabolic disorders (3 sources) Obesity caused by energy imbalance 09-11-2023 Chronic Other nutritional; endocrine; and metabolic disorders (10 sources) Overweight; 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: [Overweight] Onset: 12-24-2022 Episodic Other nutritional; endocrine; and metabolic disorders (2 sources) Overweight in adulthood with body mass index of 25 or more but less than 30; 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: [Body mass index (BMI) 29.0-29.9, adult] Onset: 12-24-2022 Episodic Other screening for suspected conditions (not mental disorders or infectious disease) (20 sources) Hormone level - finding; 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: [Other specified abnormal findings of blood chemistry] Onset: 12-30-2020 12-30-2020 Episodic Other upper respiratory disease (20 sources) Chronic rhinitis; 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: [Chronic rhinitis] Onset: 06-30-2014 06-30-2014 Chronic Other upper respiratory disease (20 sources) Allergic rhinitis due to pollen; 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: [Allergic rhinitis due to pollen] Onset: 07-08-2017 07-08-2017 Chronic Other upper respiratory infections (20 sources) Chronic sinusitis, unspecified; 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: [Chronic sinusitis] Onset: 05-09-2017 09-19-2021 Chronic Peripheral and visceral atherosclerosis (20 sources) Peripheral vascular disease; 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: [Peripheral vascular disease, unspecified] Onset: 10-08-2022 Chronic Comment on above: noted in 01/02/2023 Cardiology Consult Note. added per [facility] policy. Pulmonary heart disease (1 source) Pulmonary hypertension; 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: [Pulmonary hypertension, unspecified] Onset: 09-11-2023 Chronic Residual codes; unclassified (1 source) Postoperative state; 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: [Other specified postprocedural states] Episodic Residual codes; unclassified (1 source) Memory impairment; 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: [Other amnesia] 12-12-2022 Episodic Residual codes; unclassified (1 source) Forgetful; 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: [Other general symptoms and signs] 12-12-2022 Episodic Residual codes; unclassified (1 source) Amnesia; 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: [Other amnesia] Onset: 12-24-2022 Episodic Residual codes; unclassified (1 source) Other amnesia; 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: [Memory changes] Onset: 12-12-2022 Episodic Residual codes; unclassified (1 source) Other general symptoms and signs; 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: [Forgetfulness] Onset: 12-12-2022 Episodic Respiratory failure; insufficiency; arrest (adult) (14 sources) Chronic hypoxemic respiratory failure; 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: [Chronic respiratory failure with hypoxia] Onset: 02-25-2023 Chronic Comment on above: added per 02/24/2023 query response. Retinal detachments; defects; vascular occlusion; and retinopathy (4 sources) Epiretinal membrane of right eye; 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: [Puckering of macula, right eye] Chronic Substance-related disorders (20 sources) Tobacco user; 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: [Nicotine dependence, unspecified, uncomplicated] Onset: 08-10-2015 12-06-2022 Chronic Comment on above: Added secondary to d ocumentation in Social History. Unclassified (1 source) Unknown / UNK(Unknown) Onset: 07-09-2016 Unclassified (1 source) Other persistent atrial fibrillation; 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: [Atrial fibrillation, persistent (HCC)] Onset: 01-09-2022 Unclassified (3 sources) Mild pulmonary hypertension 09-11-2023 Comment on above: Added per Dr. Oumar richardson query response, per outpatient [facility] policy. Past or Other Problems Problem Classification Problem Date Documented Date Episodic/Chronic Coronary atherosclerosis and other heart disease (20 sources) Drug coated stent in circumflex branch of left coronary artery; 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: [Presence of coronary angioplasty implant and graft] Onset: 08-10-2015 03-03-2020 Episodic Malaise and fatigue (20 sources) Fatigue; 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: [Other fatigue] Onset: 10-09-2021 10-09-2021 Episodic Mycoses (20 sources) Tinea corporis; 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: [Tinea corporis] Onset: 09-26-2020 09-26-2020 Episodic Nutritional deficiencies (20 sources) Cobalamin deficiency; 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: [Deficiency of other specified B group vitamins] Onset: 01-09-2022 Episodic Other aftercare (20 sources) Long-term current use of anticoagulant; 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: [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] Onset: 09-19-2021 09-19-2021 Episodic Other aftercare (1 source) 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; 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: [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] Onset: 08-08-2022 Episodic Other connective tissue disease (3 sources) Pain in right leg; 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: [Pain in right leg] Onset: 08-24-2022 Episodic Other disorders of stomach and duodenum (20 sources) Gastrointestinal hemorrhage; 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: [Angiodysplasia of stomach and duodenum with bleeding] Onset: 08-10-2015 08-10-2015 Episodic Other ear and sense organ disorders (20 sources) Eczema of external auditory canal; 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: [Acute eczematoid otitis externa, bilateral] Onset: 04-08-2018 04-08-2018 Episodic Other eye disorders (20 sources) Lesion of eyelid; 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: [Unspecified disorder of eyelid] Onset: 10-09-2021 Episodic Other inflammatory condition of skin (20 sources) Seborrheic dermatitis of scalp; 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: [Seborrheic dermatitis, unspecified] Onset: 01-09-2022 Episodic Other nervous system disorders (20 sources) Numbness of toe; 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: [Anesthesia of skin] Onset: 10-09-2021 Episodic Other nervous system disorders (20 sources) Paresthesia of foot ; 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: [Paresthesia of skin] Onset: 10-09-2021 10-09-2021 Episodic Other non-epithelial cancer of skin (20 sources) Basal cell carcinoma of lower eyelid; 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: [Basal cell carcinoma of skin of left lower eyelid, including canthus] Onset: 02-25-2022 Episodic Other non-traumatic joint disorders (3 sources) Pain in left knee; 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: [Pain in left knee] Onset: 08-08-2022 Episodic Other non-traumatic joint disorders (1 source) Pain in right knee; 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: [Pain in right knee] Onset: 08-08-2022 Episodic Other nutritional; endocrine; and metabolic disorders (13 sources) Weight loss; 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: [Abnormal weight loss] Onset: 10-08-2022 10-08-2022 Episodic Other nutritional; endocrine; and metabolic disorders (1 source) Abnormal weight loss; 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: [Weight loss] Onset: 10-08-2022 Episodic Other skin disorders (20 sources) Actinic keratosis; 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: [Actinic keratosis] Onset: 09-26-2020 09-26-2020 Episodic Residual codes; unclassified (13 sources) Tobacco user; 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: [Tobacco use] Onset: 08-10-2015 08-10-2015 Episodic Residual codes; unclassified (20 sources) History of repair of aneurysm of abdominal aorta; 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: [Other specified postprocedural states] Onset: 08-10-2015 08-10-2015 Episodic Residual codes; unclassified (20 sources) Other specified personal risk factors, not elsewhere classified; 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: [Other specified personal history presenting hazards to health] Onset: 09-19-2021 09-19-2021 Episodic Residual codes; unclassified (20 sources) Tobacco use and exposure - finding; 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: [Tobacco use] Onset: 08-10-2015 10-09-2021 Episodic Residual codes; unclassified (13 sources) Poor short-term memory ; 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: [Other amnesia] Onset: 10-08-2022 10-08-2022 Episodic Residual codes; unclassified (1 source) Other specified postprocedural states; 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: [Post-operative state] Onset: 04-10-2022 Episodic Superficial injury; contusion (20 sources) Tick bite; 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: [Insect bite (nonvenomous) of abdominal wall, initial encounter] Onset: 09-26-2020 09-26-2020 Episodic Tuberculosis (1 source) Personal history of tuberculosis; 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: [Personal history of tuberculosis] Onset: 08-24-2022 Episodic Results Test Name Value Interpretation Reference Range Facil ity Heart and Vascular Office/Cl inic Noteon 11-14-2023 Heart and Vascular Office/Clinic Note Heart and Vascular Office/Clinic Note Chief Complaint 4 month F/U History of Present Illness Patient is an 88-year-old male with past medical history for current smoker with [id number] history, CKD stage III, COPD, CAD with prior PCI, AAA repair, chronic atrial fibrillation status post pacemaker placement, CVA, bilateral carotid stenosis. Patient comes into the office for 4-month follow-up today. Patient comes in with his daughter, who provides some of the history today At last visit, patient saw Dr. Villeda at which time he had patient continue with current medication and patient declined pursuing cardiac cath. Patient reports that he has been feeling pretty well overall other than lower lower extremity pain. Patient states that his legs hurt from his knees down to his ankles. Patient's daughter states that patient has arthritis in his feet and ankles that is known. Patient reports that he has not had any lower extremity testing such as ABIs or PVRs in the past and declines them today. Patient has known CAD with prior PCI although cannot recall when his stents were placed. He did have abnormal stress test in 03/2023 and declined cardiac catheterization at that time. Upon inquiry, patient declines cardiac cath at this time. He does not have any chest pains or significant shortness of breath. Patient has chronic A-fib status post pacemaker placement. He is following with device clinic here at [facility] and his last check was 10/30/2023. Patient had EKG in the office today in which he was ventricularly paced throughout the entirety of the EKG with a heart rate of 70 bpm. Patient denies any dizziness or lightheadedness. Patient also has history of carotid stenosis which she does not want to pursue any further treatment of. He has known 70% blockages in bilateral carotid arteries. Does not want to do anything about it so does not want to get any further ultrasound to assess for a sac currently Blood pressure is elevated in the office today. However, it is usually pretty well-controlled. On her percent sure why his blood pressure would be higher today in the office. Not currently taking any medications for blood pressure. Patient denies swelling to lower extremities and heart palpitations Review of Systems PHQ Score Initial Depression Screen Score: 0 SCORE ROS - Provider Constitutional: no fever, no chills, no sweats, no weakness Respiratory: no shortness of breath, no cough Cardiovascular: no chest pain Neuro: no dizziness. no loss of consciousness Physical Exam Vitals & Measurements HR: 76(Peripheral) RR: 18 BP: 178/52 SpO2: 94% HT: 69 in HT: 175 cm WT: 97.6 kg WT: 214.72 lb BMI: 31.87 General: alert, no acute distress Cardiovascular: regular rate and rhythm, no murmur normal peripheral perfusion Respiratory: Lungs CTAB, respirations non labored Extremities: no edema left lower extremity. no edema right lower extremity Neurological: oriented x 4, LOC appropriate for age, speech normal Skin: Warm, dry, intact- no rash or concerning lesions Cardiac Diagnostics (03/27/2023 15:27 EST NM Myocardial Spect Rest/Stress 1 Day) CONCLUSIONS: 1. Abnormal adequate Lexiscan/MPI. The patient has baseline severe left ventricular dysfunction with severe left ventricular enlargement with severe inferior hypokinesis at rest. 2. The patient has dynamic inferior hypoperfusion demonstrated in two views totalling 18% which is 8% over baseline. 3. Normal TID of 0.99. 4. Based upon these images, this is a high risk study and the results will be conveyed to the Cardiovascular Team. 5. The patient tolerated procedure well. No complications. [1] (01/24/2023 16:10 EDT Echo Transthoracic Complete) Interpretation Summary Ejection Fraction = 60-65%. Normal LV and RV. Pacemaker in RV. No significant valve disease. Mild PA hypertension. Pseudonormal diastolic filling pattern. Dilated aorta. [2] Assessment/Plan 1. Paroxysmal atrial fibrillation (I48.0: Paroxysmal atrial fibrillation) Patient has history of paroxysmal A-fib and is status post pacemaker which is pacing him almost all the time. He is asymptomatic from an A-fib standpoint. He has not any anticoagulation due to his history of anemia. Patient aware of risks of A-fib and not being anticoagulated. He is not taking any rate control medication at this time. Will continue to monitor patient 2. Carotid stenosis, bilateral (I65.23: Occlusion and stenosis of bilateral carotid arteries) Patient was told during hospitalization that he had 70% blockage in one of his carotid arteries. Offered surveillance with ultrasound at this time, but patient declines as he is not having any symptoms at this time. 3. Abnormal stress test (R94.39: Abnormal result of other cardiovascular function study) Patient had abnormal stress test in 03/2023 and was offered left heart cath at that time. Patient is not having anginal symptoms and has declined heart cath again at this time. 4. Lower leg pain (M79.669: Pain (more content not included)... [facility] Comment on above: Result Comment: Elec tronically Signed By: Johnny THOMAS, Elijah Ballesteros\.johana\Date and Time Signed: 11/14/23 14:42 EDT Interdisciplinary Note - Soc ial Workeron 10-07-2023 Interdisciplinary Note - Environmental Engineer Consult received due to patient being in need of transition to a new SNF. At the time of the consult, patient was in a SNF and there would have been a SW/program planner there to assist with identifying a new facility for patient, as they would have had to ensure a safe discharge plan. SW will remain available. [facility] Correction Recordson 09-15 Correction Records [id number] FF [facility] Correction Recordson 09-11 Correction Records [id number] FF [facility] Ambulatory Visit Summaryon 0 09-11-2023 Ambulatory Visit Summary THANH COLEMAN :1935 Visit Date:09/11/2023 Ambulatory Visit Instructions Your Diagnosis Mild pulmonary hypertension BMI 30.0-30.9,adult Alzheimer's disease, unspecified Chronic obstructive pulmonary disease (COPD) Chronic respiratory failure with hypoxia Dementia in other diseases classified elsewhere, unspecified severity, without behavioral disturbance, psychotic disturbance, mood disturbance, and anxiety, Dementia in other diseases classified elsewhere, unspecified severity, without behavioral disturbance, psychotic disturbance, mood disturbance, and anxiety Paroxysmal atrial fibrillation Peripheral vascular disease Stage 3b chronic kidney disease (CKD) Vascular dementia without behavioral disturbance, psychotic disturbance, mood disturbance, or anxiety long-term resident Encounter for smoking cessation counseling Your Care Team Attending Physician - Nanci Jarvis MD Primary Care Physician - Nanci Jarvis MD This Is Your Medications List nicotine (nicotine 21 mg/24 hr Transderm ER Film) Contact prescribing physician if questions or concerns Ensure Misc Prescription (Adult nebulizer with mask and tubing) albuterol-ipratropium atorvastatin (atorvastatin 40 mg Tab) cholecalciferol (Vitamin D3 2000 intl units oral Tab) donepezil (donepezil 10 mg Tab) ezetimibe (ezetimibe 10 mg Tab) fenofibrate (fenofibrate 54 mg oral tablet) fexofenadine (Johanna) furosemide (furosemide 20 mg Tab) nitroglycerin (nitroglycerin 0.4 mg sublingual Tab) pantoprazole (Pantoprazole [address] Tab) psyllium (Metamucil) Procedures Performed Colonoscopy (02/17/2023), EGD - esophagogastroduodenosc opy (02/16/2023), Cardiac pacemaker. Discharge Vitals Temperature (Temporal Artery) 37.1 ?C Heart Rate (Peripheral) 63 Respiratory Rate 15 Blood Pressure 138/82 Height 175 cm Height 69 in Weight 94.7 kg Weight 208.34 lb BMI 30.92 What to do next Scheduled Follow-Up Appointments 2023 2:30 PM EDT Where: [facility] Medications What How Much When Why Instructions Changed nicotine (nicotine 21 mg/ 24 hr Transderm ER Film) 1 Patches Topical Every day Encounter for smoking cessation counseling Pickup at [facility] Unchanged albuterol-ipratropium See instructions 3 ml inhale q6h PRN SOB Contact prescribing physician if questions or concerns Unchanged atorvastatin (atorvastatin 40 mg Tab) 1 Tablets By Mouth Every day Contact prescribing physician if questions or concerns Unchanged cholecalciferol (Vitamin D3 2000 intl units oral Tab) 50 Microgram By Mouth Every day Contact prescribing physician if questions or concerns Unchanged donepezil (donepezil 10 mg Tab) 1 Tablets By Mouth Once a day (at bedtime) Contact prescribing physician if questions or concerns Unchanged Ensure 237 Milliliter By Mouth Twice a day (with meals) Contact prescribing physician if questions or concerns Unchanged ezetimibe (ezetimibe 10 mg Tab) 1 Tablets By Mouth Every day Contact prescribing physician if questions or concerns Unchanged fenofibrate (fenofibrate 54 mg oral tablet) 1 Tablets By Mouth Every day Contact prescribing physician if questions or concerns Unchanged fexofenadine (Johanna) Contact prescribing physician if questions or concerns Unchanged furosemide (furosemide 20 mg Tab) 1 Tablets By Mouth Every day as needed for Edema Contact prescribing physician if questions or concerns Unchanged Misc Prescription (Adult nebulizer with mask and tubing) See instructions Chronic obstructive pulmonary disease (COPD) Adult nebulizer with mask and tubing, uses q4h prn Contact prescribing physician if questions or concerns Unchanged nitroglycerin (nitroglycerin 0.4 mg sublingual Tab) 1 Tablets Sublingual Every 5 minutes as needed for for chest pain Contact prescribing physician if questions or concerns Unchanged pantoprazole (Pantoprazole [address] Tab) 1 Tablets By Mouth 2 times a day Contact prescribing physician if questions or concerns Unchanged psyllium (Metamucil) Contact prescribing physician if questions or concerns Pharmacy Information [facility]: [address] [place], [place] [id number] [phone] Allergies No Known Medication Allergies Problems Ongoing - Any problem that you are currently receiving treatment for. Alzheimer's disease, unspecified Anemia BMI 30.0-30.9,adult Carotid stenosis, bilateral Chronic obstructive pulmonary disease (COPD) Chronic respiratory failure with hypoxia Coronary artery disease Dementia in other diseases classified elsewhere, unspecified severity, without behavioral disturbance, psychotic disturbance, mood disturbance, and anxiety DANIEL (generalized anxiety disorder) Gait disorder Hyperlipidemia IFG (impaired fasting glucose) Loose stools Mild pulmonary hypertension Muscle weakness Neuropathy long-term resident Genna (more content not included)... Normal [facility] Pre-Visit Planningon 024 Pre-Visit Planning - From: Amanda RN, Laurel To: Nanci Jarvis MD; Sent: 09/10/2023 14:04:57 EDT Subject: Pre-Visit Planning Due Date/Time: 09/10/2023 14:04:00 EDT Caller Name: THANH COLEMAN; Caller Number: Bartolo , Sd Dr. Jarvis, *Based on your response below, can you please update the chronic problem list and address during this visit if appropriate?* During a pre-visit planning chart review, I noted the following documentation in the medical record: 01/24/2023 echo- mild pa hypertension Based on your medical judgment, can you please clarify which, if any, of the following conditions are present? -Mild pulmonary hypertension -Other (Please Specify): I can update the problem list with your specified response if you would like. In responding to this request, please exercise your independent professional judgement. The fact that a question is asked does not imply that any particular answer is desired or expected. If you have any questions, please feel free to contact me at [phone]. Thank you! KENROY Pierce, RN, CCM, CCDS, CCDS-O From: Nanci Jarvis MD To: Amanda SPRAGUE, Laurel; Sent: 09/11/2023 08:30:42 EDT Subject: RE: Pre-Visit Planning Caller Name: THANH COLEMAN; Caller Number: Bartolo , Carina please add the following to the problem list -Mild pulmonary hypertension Normal [address] [facility] Formson 09-03-2023 Forms [id number]#1.00T IFF Normal [facility] Consultation Noteon 07-15-19 Consultation Note [id number]#1.00 TIFF [facility] Physician Orderon 07-09-2023 Physician Order [id number]#1.00T IFF [facility] Physician Order [id number]#1.00 TIFF [facility] Consent for Treatmenton 06-19 Consent for Treatment [id number]#1.00T IFF Normal [facility] Heart and Vascular Office/Cl inic Noteon 07-07-2023 Heart and Vascular Office/Clinic Note History of Present Illness Patient is a very pleasant 87-year-old patient of Dr. Schulte and was seen for the first time in December 2022 as an outpatient, nondiabetic current smoker of approximately 75 pack years, with chronic kidney deficiency stage III, COPD, coronary disease status postcardiac stents although he cannot recall where or when, status post open AAA repair, chronic atrial fibrillation previously on Eliquis therapy, status post pacemaker placement. The patient was recently admitted to [facility] in [place] after being transferred from [facility] in the [facility] after presenting with new onset left-sided facial droop. Patient was found to have a CVA, and CT of his carotids demonstrated bilateral carotid stenosis of approximately 7 0%. Patient was treated with Eliquis and aspirin and subsequently discharged. He used to live in the [facility] but recently relocated back up to this area to be with his daughters and 4 assisted living. From a cardiac standpoint he denies any chest pain, angina, shortness of breath or dyspnea on exertion over baseline. He is compliant with his medications. He has had no presyncope or syncopal episodes. Patient claims that he had an echocardiogram in [facility] but he does not have that included in his paperwork today. Unfortunately he continues to smoke. Patient went a 2D echo with Doppler on 01/24/2023 with the following results: (01/24/2023 16:10 EDT Echo Transthoracic Complete) Interpretation Summary Ejection Fraction = 60-65%. Normal LV and RV. Pacemaker in RV. No significant valve disease. Mild PA hypertension. Pseudonormal diastolic filling pattern. Dilated aorta. [1] Patient was admitted and seen in consultation on 02/16/2023 after several days of progressively worsening fatigue, weakness, shortness of breath and recently black tarry stools. He came into the emergency room for evaluation and was found to have a hemoglobin of 4.7. His Eliquis and aspirin have been held. EKG on admission showed normal sinus rhythm with occasional paced ventricular beats, PVCs, no acute changes. Troponins were mildly elevated most likely secondary to his significant anemia. Patient received PRBCs and replenishment. No stress testing or echocardiogram were performed due to his anemia. Patient is now here in follow-up. His last hemoglobin was 8.3 on 02/20/2023. [place]. He is no longer on anticoagulation. Patient underwent a stress test on 03/27/2023 with the following results: (03/27/2023 15:27 EST NM Myocardial Spect Rest/Stress 1 Day) CONCLUSIONS: 1. Abnormal adequate Lexiscan/MPI. The patient has baseline severe left ventricular dysfunction with severe left ventricular enlargement with severe inferior hypokinesis at rest. 2. The patient has dynamic inferior hypoperfusion demonstrated in two views totalling 18% which is 8% over baseline. 3. Normal TID of 0.99. 4. Based upon these images, this is a high risk study and the results will be conveyed to the Cardiovascular Team. 5. The patient tolerated procedure well. No complications. [1] Patient is now here in follow-up to go over his testing. Testing results given to the patient. Patient denies any chest pain, angina, and currently lives in an assisted living center walks with a wheeled walker. He denies any bright red blood per rectum or hematochezia or black tarry stools. Despite his abnormal stress test decision was made for medical management. Unfortunately he continues to smoke.. In our office today's blood pressure is 122/78 and pulse is 86 and regular. Physical exam demonstrates 2+ carotid upstroke with bilateral carotid bruits, irregularly irregular rate and rhythm, normal S1/S2, no S3, S4 or murmurs are noted, he has no edema. Lipids dated 01/04/2023 show an HDL 35 and LDL of 44. EKG dated 01/03/2023 shows background atrial fibrillation with paced ventricular response and PAC. [1] Review of Systems Constitutional: no fever, no chills, no weakness, no fatigue Respiratory: no shortness of breath, no cough, no orthopnea, no wheezing Cardiovascular: no chest pain, no palpitations, no edema Neuro: no dizziness no light headed no syncope Additional ROS info: Except as noted in the above Review of Systems and in the History of Present Illness all other systems have been reviewed and are negative or noncontributory. Physical Exam General: alert, no acute distress Neck: Supple, noJVD yescarotid bruit Cardiovascular: regular rate and rhythm, no murmur normal peripheral perfusion Respiratory: Lungs CTA, respirations non labored Extremities: no edema Neurological: oriented x 4, LOC appropriate for age, sensation equal & normal bilaterally, speech normal Skin: Warm, dry, intact- no rash or concerning lesions Assessment/Plan 1. Atrial fibrillation: Patient is status post pacemaker and is pacing well without any difficulty. He is asymptomatic from an A-fib standpoint. He will continue his current medications of Las (more content not included)... Normal [facility] Comment on above: Result Comment: Elec tronically Signed By: RONAL PILLAI, Johnny Tom.br\Date and Time Signed: 07/07/23 16:28 EDT Physician Orderon 07-07-2023 Physician Order [id number]#1.00 TIFF Normal [facility] Consultation Noteon 07-01-19 Consultation Note [id number]#1.00T IFF Normal [facility] Physician Orderon 06-20-2023 Physician Order [id number]#1.00T IFF Normal [facility] Retail - Clinical Noteon Retail - Clinical Note [id number]#1.00T IFF Normal [facility] Reminderson 05-22-2023 Reminders - From: Domo SPRAGUE, Stanley Hough To: Stanley Oliveros RN; Sent: 05/22/2023 13:34:05 EST Show up: 05/22/2023 13:34:00 EST Subject: check transfer status Reminder/Recall Check pt's carelink transfer status and schedule 10/29/2023 [facility] Consent for Treatmenton 04-21 Consent for Treatment [id number]#1.00T IFF Normal [facility] 04-23-2023 Forms [id number]#1.00T IFF Normal [facility] 04-22-2023 Forms [id number]#1.00T IFF Normal [facility] Auto Diffon 04-10-2023 Basophils/100 WBC (Bld) 1.3 % Normal 0.0-2.0 [facility] Comment on above: Order Comment: Order Added by Discern Expert. Performed By: #### 1 [id number], [id number], [id number], 3736230, [id number] #### [facility] [address] [place] [address] Basophils/Leukocyte s Auto (Bld) [Pure # fraction] 0.1 E9/L Normal 0.0-0.2 [facility] Comment on above: Order Comment: Order Added by Discern Expert. Performed By: #### 1 [id number], [id number], 9791815, 4934405, [id number] #### [facility] [address] [place] [address] Eosinophils/100 WBC (Bld) 3.5 % Normal 0.0-8.0 [facility] Comment on above: Order Comment: Order Added by Cam Expert. Performed By: #### 1 [id number], [id number], 2874752, 7012660, [id number] #### [facility] [address] [place] [address] Eosinophils/Leukocy rosanna Auto (Bld) [Pure # fraction] 0.2 E9/L Normal 0.0-0.5 [facility] Comment on above: Order Comment: Order Added by Cam Expert. Performed By: #### 1 [id number], [id number], 3060451, 7155457, [id number] #### [facility] [address] [place] [address] Lymphocytes/100 WBC (Bld) 26.6 % Normal 14.0-50.0 [facility] Comment on above: Order Comment: Order Added by Discern Expert. Performed By: #### 1 [id number], [id number], 8432845, 6117486, 87140293 #### [facility] [address] [place] [address] Lymphocytes/Leukocy rosanna Auto (Bld) [Pure # fraction] 1.8 E9/L Normal 1.0-4.0 [facility] Comment on above: Order Comment: Order Added by Cam Expert. Performed By: #### 1 [id number], 98621623, 9395044, 8663518, [id number] #### [facility] [address] [place] [address] Monocytes/100 WBC (Bld) 11.1 % Normal 4.0-14.0 [facility] Comment on above: Order Comment: Order Added by Discern Expert. Performed By: #### 1 [id number], 27715203, 0370423, 4619784, [id number] #### [facility] [address] [place] [address] Monocytes/Leukocyte s Auto (Bld) [Pure # fraction] 0.7 E9/L Normal 0.2-1.0 [facility] Comment on above: Order Comment: Order Added by Discern Expert. Performed By: #### 1 [id number], 28837066, 3771986, 6003763, [id number] #### [facility] [address] [place] [address] Neutrophils/100 WBC (Bld) 57.5 % Normal 36.0-75.0 [facility] Comment on above: Order Comment: Order Added by Discern Expert. Performed By: #### 1 [id number], 19080812, 7060757, 0870324, 41391355 #### [facility] [address] [place] [address] Neutrophils/Leukocy rosanna Auto (Bld) [Pure # fraction] 3.8 E9/L Normal 2.0-7.5 [facility] Comment on above: Order Comment: Order Added by Discern Expert. Performed By: #### 1 [id number], 37528570, 5768654, 7221648, [id number] #### [facility] [address] [place] [address] CBC w/ Auto Diffon 3 Erythrocyte distribution width (RBC) [Ratio] 20.9 % High 10.9-14.2 [facility] Comment on above: Performed By: #### 1 [id number], 71025363, 0229491, 3194619, 51216408 #### [facility] [address] [place] [address] Hematocrit (Bld) [Volume fraction] 31.5 % Low 37.7-49.0 [facility] Comment on above: Performed By: #### 1 [id number], 17467141, 3830779, 5808453, 77519195 #### [facility] [address] [place] [address] Hemoglobin (Bld) [Mass/Vol] 9.3 g/dL Low 13.5-17.5 [facility] Comment on above: Performed By: #### 1 [id number], 73817402, 0322702, 1343788, 61198143 #### [facility] [address] [place] [address] MCH (RBC) [Entitic mass] 20.2 pg Low 27.0-34.0 [facility] Comment on above: Performed By: #### 1 [id number], 49807897, 7600575, 0180154, 38177788 #### [facility] [address] [place] [address] MCHC (RBC) [Mass/Vol] 29.4 g/dL Low 31.4-36.0 [facility] Comment on above: Performed By: #### 1 5976752, 82041453, 3770062, 4181065, 67190869 #### [facility] [address] [place] [address] MCV (RBC) [Entitic vol] 68.7 fL Low 80.0-100.0 [facility] Comment on above: Performed By: #### 1 5289475, 02645948, 5271596, 1479119, 13333613 #### [facility] [address] [place] [address] Platelet mean volume (Bld) [Entitic vol] 9.0 fL Normal 6.4-10.8 [facility] Comment on above: Performed By: #### 1 8302889, 76942210, 3026562, 9377378, 80763813 #### [facility] [address] [place] [address] Platelets (Bld) [#/Vol] 217.0 E9/L Normal 150.0-500.0 [facility] Comment on above: Performed By: #### 1 5564487, 22912394, 6467907, 2571464, 90589208 #### [facility] [address] [place] [address] RBC (Bld) [#/Vol] 4.6 E12/L Normal 4.3-5.9 [facility] Comment on above: Performed By: #### 1 [id number], 56525342, 5819889, 9017857, 63069601 #### [facility] [address] [place] [address] WBC corrected for nucl RBC Auto (Bld) [#/Vol] 6.6 E9/L Normal 4.0-11.0 [facility] Comment on above: Performed By: #### 1 7040035, 37315492, 4098923, 6097508, 96744327 #### [facility] [address] [place] [address] Consent for Treatmenton 03-22 Consent for Treatment [id number]#1.00T IFF Normal [facility] Consent for Treatment [id number]#1.00T IFF Normal [facility] HEMATOLOGYOrdered By: Rishi Coulter on 04-10-2023 Anisocytosis Ql (Bld) Present (04/10/23 2:19 PM) Normal [facility] HemeManSS Erythrocyte distribution width (RBC) [Ratio] 20.9 % High 10.9 - 14.2 % [facility] Hematocrit (Bld) [Volume fraction] 31.5 % Low 37.7 - 49.0 % [facility] Hemoglobin (Bld) [Mass/Vol] 9.3 g/dL Low 13.5 - 17.5 gm/dL [facility] Hypochromia Auto Ql (Bld) Present (04/10/23 2:19 PM) Normal [facility] MCH (RBC) [Entitic mass] 20.2 pg Low 27.0 - 34.0 pg [facility] MCHC (RBC) [Mass/Vol] 29.4 g/dL Low 31.4 - 36.0 gm/dL [facility] MCV (RBC) [Entitic vol] 68.7 fL Low 80.0 - 100.0 fL [facility] Microcytes Ql (Bld) Present (04/10/23 2:19 PM) Normal [facility] Morphology Jose (Bld) [Interp] See Morphology 1 (04/10/23 2:19 PM) Normal [facility] Comment on above: Result Comment: Resu lts are consistent with previous path review performed on 02-15-23. Reviewed by RAMBO. Ovalocytes LM Ql (Bld) Present (04/10/23 2:19 PM) Normal [facility] Platelet mean volume (Bld) [Entitic vol] 9.0 fL Normal 6.4 - 10.8 fL [facility] Platelets (Bld) [#/Vol] 217.0 E9/L Normal 150.0 - 500.0 E9/L [facility] Polychromasia LM Ql (Bld) Present (04/10/23 2:19 PM) Normal [facility] RBC (Bld) [#/Vol] 4.6 E12/L Normal 4.3 - 5.9 E12/L [facility] WBC corrected for nucl RBC Auto (Bld) [#/Vol] 6.6 E9/L Normal 4.0 - 11.0 E9/L [facility] HEMATOLOGYOrdered By: SYSTEM SYSTEM on 04-10-2023 Basophils/100 WBC (Bld) 1.3 % Normal 0.0 - 2.0 % [facility] Basophils/Leukocyte s Auto (Bld) [Pure # fraction] 0.1 E9/L Normal 0.0 - 0.2 E9/L [facility] Eosinophils/100 WBC (Bld) 3.5 % Normal 0.0 - 8.0 % [facility] Eosinophils/Leukocy rosanna Auto (Bld) [Pure # fraction] 0.2 E9/L Normal 0.0 - 0.5 E9/L [facility] Lymphocytes/100 WBC (Bld) 26.6 % Normal 14.0 - 50.0 % [facility] Lymphocytes/Leukocy rosanna Auto (Bld) [Pure # fraction] 1.8 E9/L Normal 1.0 - 4.0 E9/L [facility] Monocytes/100 WBC (Bld) 11.1 % Normal 4.0 - 14.0 % [facility] Monocytes/Leukocyte s Auto (Bld) [Pure # fraction] 0.7 E9/L Normal 0.2 - 1.0 E9/L [facility] Neutrophils/100 WBC (Bld) 57.5 % Normal 36.0 - 75.0 % [facility] Neutrophils/Leukocy rosanna Auto (Bld) [Pure # fraction] 3.8 E9/L Normal 2.0 - 7.5 E9/L [facility] Heart and Vascular Office/ in Noteon 04-10-2023 Heart and Vascular Office/Clinic Note History of Present Illness Patient is a very pleasant 87-year-old patient of Dr. Villeda's and was seen for the first time in December 2022 as an outpatient, nondiabetic current smoker of approximately 75 pack years, with chronic kidney deficiency stage III, COPD, coronary disease status postcardiac stents although he cannot recall where or when, status post open AAA repair, chronic atrial fibrillation previously on Eliquis therapy, status post pacemaker placement. The patient was recently admitted to [facility] in [place] after being transferred from [facility] in the [facility] after presenting with new onset left-sided facial droop. Patient was found to have a CVA, and CT of his carotids demonstrated bilateral carotid stenosis of approximately 7 0%. Patient was treated with Eliquis and aspirin and subsequently discharged. He used to live in the [facility] but recently relocated back up to this area to be with his daughters and 4 assisted living. From a cardiac standpoint he denies any chest pain, angina, shortness of breath or dyspnea on exertion over baseline. He is compliant with his medications. He has had no presyncope or syncopal episodes. Patient claims that he had an echocardiogram in [facility] but he does not have that included in his paperwork today. Unfortunately he continues to smoke. Patient went a 2D echo with Doppler on 01/24/2023 with the following results: (01/24/2023 16:10 EDT Echo Transthoracic Complete) Interpretation Summary Ejection Fraction = 60-65%. Normal LV and RV. Pacemaker in RV. No significant valve disease. Mild PA hypertension. Pseudonormal diastolic filling pattern. Dilated aorta. [1] Patient was admitted and seen in consultation on 02/16/2023 after several days of progressively worsening fatigue, weakness, shortness of breath and recently black tarry stools. He came into the emergency room for evaluation and was found to have a hemoglobin of 4.7. His Eliquis and aspirin have been held. EKG on admission showed normal sinus rhythm with occasional paced ventricular beats, PVCs, no acute changes. Troponins have been mildly elevated most likely secondary to his significant anemia. Patient received PRBCs and replenishment. No stress testing or echocardiogram were performed due to his anemia. Patient is now here in follow-up. His last hemoglobin was 8.3 on 02/20/2023. [place]. He is no longer on anticoagulation. Patient underwent a stress test on 03/27/2023 with the following results: (03/27/2023 15:27 EST NM Myocardial Spect Rest/Stress 1 Day) CONCLUSIONS: 1. Abnormal adequate Lexiscan/MPI. The patient has baseline severe left ventricular dysfunction with severe left ventricular enlargement with severe inferior hypokinesis at rest. 2. The patient has dynamic inferior hypoperfusion demonstrated in two views totalling 18% which is 8% over baseline. 3. Normal TID of 0.99. 4. Based upon these images, this is a high risk study and the results will be conveyed to the Cardiovascular Team. 5. The patient tolerated procedure well. No complications. [1] Patient is now here in follow-up to go over his testing. Testing results given to the patient. Patient denies any chest pain, angina, and currently lives in an assisted living center walks with a wheeled walker. He denies any bright red blood per rectum or hematochezia or black tarry stools. Patient does complain of bilateral calf pain, right greater than left. In our office today's blood pressure is 89/50 and pulse is 100 and irregular. Physical exam demonstrates 2+ carotid upstroke with bilateral carotid bruits, irregularly irregular rate and rhythm, normal S1/S2, no S3, S4 or murmurs are noted, he has no edema. Lipids dated 01/04/2023 show an HDL 35 and LDL of 44. EKG dated 01/03/2023 shows background atrial fibrillation with paced ventricular response and PAC. [1] Review of Systems Constitutional: no fever, no chills, no weakness, no fatigue Respiratory: no shortness of breath, no cough, no orthopnea, no wheezing Cardiovascular: no chest pain, no palpitations, no edema Neuro: no dizziness no light headed no syncope Additional ROS info: Except as noted in the above Review of Systems and in the History of Present Illness all other systems have been reviewed and are negative or noncontributory. Physical Exam General: alert, no acute distress Neck: Supple, noJVD nocarotid bruit Cardiovascular: regular rate and rhythm, no murmur normal peripheral perfusion Respiratory: Lungs CTA, respirations non labored Extremities: no edema Neurological: oriented x 4, LOC appropriate for age, sensation equal & normal bilaterally, speech normal Skin: Warm, dry, intact- no rash or concerning lesions Assessment/Plan 1. Abnormal stress test: I had a long and thorough discussion with the patient and his family member regarding going forward with heart catheterization given the fact that he recently was admitted with anemia he is probably not (more content not included)... Normal [facility] Comment on above: Result Comment: Elec tronically Signed By: RONAL PILLAI, Johnny Vega\.br\Date and Time Signed: 04/10/23 14:01 EST Morphon 04-10-2023 Anisocytosis Ql (Bld) Present Normal [facility] Comment on above: Order Comment: Order Added by Discern Expert. Performed By: #### 1 [id number] #### [facility] [address] [place] [address] Hypochromia Auto Ql (Bld) Present Normal [facility] Comment on above: Order Comment: Order Added by Discern Expert. Performed By: #### 1 [id number] #### [facility] [address] [place] [address] Microcytes Ql (Bld) Present Normal [facility] Comment on above: Order Comment: Order Added by Discern Expert. Performed By: #### 1 [id number] #### [facility] [address] [place] [address] Morphology Jose (Bld) [Interp] See Morphology Normal [facility] Comment on above: Order Comment: Order Added by Discern Expert. Result Comment: Resu lts are consistent with previous path review performed on 02-15-23. Reviewed by MA. Performed By: #### 1 [id number] #### [facility] [address] [place] [address] Ovalocytes LM Ql (Bld) Present Normal [facility] Comment on above: Order Comment: Order Added by Discern Expert. Performed By: #### 1 [id number] #### [facility] [address] [place] [address] Polychromasia LM Ql (Bld) Present Normal [facility] Comment on above: Order Comment: Order Added by Discern Expert. Performed By: #### 1 [id number] #### [facility] [address] [place] [address] Physician Orderon 04-10-2023 Physician Order [id number]#1.00 TIFF Normal [facility] Prescriptions/Work Noteson 1 06-04-2022 Prescriptions/Work Notes [id number]#1.00 TIFF Normal [facility] Stress EKG Tracingson 2022 Stress EKG Tracings [id number]#1.00 TIFF Normal [facility] NM Myocardial Spect Rest/Str ess 1 Dayon 03-28-2023 NM Myocardial Spect Rest/Stress 1 Day Exam Date/Time: 03/27/2023 15:27 EST Reason for Exam: Chest pain/anginal equiv, high CAD risk, not treadmill candidate;Other (please specify) Report INDICATIONS: Chest pain and previous coronary disease. STUDY: After informed consent was obtained, the patient was injected with 10.4 mCi of Cardiolite for rest SPECT imaging. The patient then underwent Lexiscan infusion per protocol receiving an additional 28.6 mCi of Cardiolite for stress SPECT imaging. RESTING EKG: The patient has AV pacing with rare premature atrial contractions noted. LEXISCAN EKG: During infusion, the patient's heart rate remained about the same. The patient had AV pacing through most of the study but then transitioned to sinus rhythm with paced ventricular response. IMAGING: The patient appears to have severe left ventricular dilatation with a left ventricular end-diastolic volume of 168 with severe left ventricular dysfunction with an ejection fraction of 32% with severe inferior hypokinesis. TID is normal at 0.99. Rest perfusion imaging demonstrates adequate uptake in all regional lee except for subtle inferior hypoperfusion totalling 10%. With Lexiscan infusion, this worsened to around 18% with significant inferior hypoperfusion seen in two views. CONCLUSIONS: 1. Abnormal adequate Lexiscan/MPI. The patient has baseline severe left ventricular dysfunction with severe left ventricular enlargement with severe inferior hypokinesis at rest. 2. The patient has dynamic inferior hypoperfusion demonstrated in two views totalling 18% which is 8% over baseline. 3. Normal TID of 0.99. 4. Based upon these images, this is a high risk study and the results will be conveyed to the Cardiovascular Team. 5. The patient tolerated procedure well. No complications. FINAL REPORT Signed (Electronic Signature): 03/28/2023 4:39 pm Signed by: Johnny VILLEDA MD Transcribed by: anup Technologist: KEITH Technical Comments Rest Dose (mCi Tc99m Cardiolite): 10.4 Stress Dose (mCi Tc99M Cardiolite): 28.6 Normal [facility] Consent for Treatmenton Consent for Treatment [id number]#1.00T IFF Normal [facility] Home Recordson 03-26 Correction Records [id number]#1.00T IFF Normal [facility] Retail - Clinical Noteon Retail - Clinical Note [id number]#1.00T IFF Normal [facility] Retail - Clinical Noteon Retail - Clinical Note [id number]#1.00T IFF Normal [facility] Outside Labson 03-18-2023 Outside Labs [id number]#1.00T IFF Normal [facility] Consent for Procedure/Surger yon 03-14-2023 Consent for Procedure/Surgery [id number]#1.00 TIFF Normal [facility] Family Medicine Office/Clini c Noteon 03-14-2023 Family Medicine Office/Clinic Note Chief Complaint TCM HPI Staff TCM: Hospital:[facility] Admission date:02/21/23 Discharge date:03/10/23 Symptoms the patient presented with:PT/OT, paperwork Current concerns:issues with breathing and needing rx for nebulizer. overall check up for leaving [facility]. History of Present Illness The patient is coming in for hospital follow-up. He was seen at [facility]. He was admitted from 02/21/2023 to 03/10/2023. He does need a nebulizer. He was admitted to the [place] [facility] with anemia and weakness, diagnosed with shortness of breath, hypertension, CAD, SUMMER secondary to ATN, upper GI bleed requiring IV therapy and blood transfusion. He was at the rehab center for 17 days. The rehab center recommended a repeat chest x-ray due to the history of his TB. He was to also have donepezil prescribed. The patient is a smoker as well. He has a history of TB and had a lobectomy of the left lung at 14 years old. He has a past medical history of A. 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 He does see cardiology. He is accompanied by an adult female. The adult female states they need a prescription for a nebulizer. He has an appointment with his legislative director today at 3:45 PM. The GI doctor was going to check with his legislative director because they want him to take iron supplements. He is able to walk on his own. He is not on a specific diet. He does not wear hearing aids. He wears glasses. He denies any issues with his bowels, constipation, or diarrhea. He denies any issues urinating. He denies any open wounds or sores. He denies any other skin issues. He does feel confused sometimes. He is able to follow instructions. He denies feeling depressed or sad. He does not feel like he lainez a lot. He gets aggravated once in a while. He denies any substance abuse. He smokes 3 cigarettes a day. He was at the [place] [facility] for 2 weeks and then he fell and got the internal bleeding. He is back to the assisted living. He is able to dress himself, eat, take a shower, and go to the bathroom by himself. He uses a walker sometimes if he is going long distances. He needs help taking his medications. He took all of his medications this morning. He feels better and more active. Yesterday, they thought they had to call the ambulance for him because he was pale. His eyes were bulging and his legs were hurting. He was given Tylenol and he was able to get up and eat dinner. He is taking Ensure once a day at lunch. When he went to the GI doctor, they wanted to do a colonoscopy. He has 17 polyps in his colon. They felt it was going to do more harm than good, so they canceled it. Review of Systems PHQ Score Initial Depression Screen Score: 0 SCORE Negative except as above Physical Exam Vitals & Measurements HR: 97(Peripheral) BP: 160/60 SpO2: 98% HT: 69 in HT: 175 cm WT: 88 kg WT: 193.6 lb BMI: 28.73 Gen: No acute distress, sitting comfortably in chair Cardio: RRR, no murmur/rubs/gallops Resp: CTAB, no wheezing/rales/rhonchi Psych: Pleasant, normal mood, normal affect Neuro: CN II-XII intact, normal gait Assessment/Plan 1. Coronary artery disease (I25.10: Atherosclerotic heart disease of [place] coronary artery without angina pectoris) sees cardiology, defer mgmt to them cont atorvastatin 40 mg daily, ezetimibe 10 mg daily, and fenofibrate 54 mg daily cont nitroglycerin prn 2. Peripheral vascular disease (I73.9: Peripheral vascular disease, unspecified) cont atorvastatin 40 mg daily, ezetimibe 10 mg daily, and fenofibrate 54 mg daily 3. Neuropathy (G62.9: Polyneuropathy, unspecified) stable 4. Vitamin D deficiency (E55.9: Vitamin D deficiency, unspecified) cont vit D 2000 units daily 5. Muscle weakness (M62.81: Muscle weakness (generalized)) cont with PT/OT uses can or walker for ambulation occasionally takes lasix 20 mg prn, will likely need to increase potassium in his diet 6. 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 Chronic obstructive pulmonary disease (COPD) (J44.9: Chronic obstructive pulmonary disease, unspecified) nebulizer script given cont albuterol prn Ordered: [facility] Prescription, Adult nebulizer with mask and tubing, See Instructions, 1 EA, 0, Adult nebulizer with mask and tubing, uses q4h prn, Supply 8. IFG (impaired fasting glucose) (R73.01: Impaired fasting glucose) diet controlled 9. DANIEL (generalized anxiety disorder) (F41.1: Generalized anxiety disorder) stable 10. Stage 3b chronic kidney disease (CKD) (N18.32: Chronic kidney disease, stage 3b) eGFR: 53 mL/min/1.73 m2 Low (02/20/23 06:16:00) Creatinine: 1.3 mg/dL (02/20/23 06:16:00) avoid nephrotoxic agents 11. Alzheimer's disease, unspecified (G30.9: Alzheimer's disease, unspecified) cont donepezil 10 mg, refilled today 12. D (more content not included)... Normal [facility] Comment on above: Result Comment: Elec tronically Signed By: Nanci Jarvis MD\.br\Date and Time Signed: 03/14/23 10:25 EST Correction Recordson 03-14 Correction Records [id number]#1.00T IFF Normal [facility] Correction Records [id number]#1.00T IFF Normal [facility] Correction Records [id number]#1.00TI FF [facility] Ambulatory Visit Summaryon 1 05-11-2022 Ambulatory Visit Summary THANH COLEMAN :1935 Visit Date:03/11/2023 Ambulatory Visit Instructions Your Diagnosis Anemia Loose stools Your Care Team Attending Physician - Pat Castro CNP Primary Care Physician - Nanci Jarvis MD This Is Your Medications List Contact prescribing physician if questions or concerns Ensure atorvastatin (atorvastatin 40 mg Tab) cholecalciferol (Vitamin D3 2000 intl units oral Tab) donepezil (donepezil 10 mg Tab) ezetimibe (ezetimibe 10 mg Tab) fenofibrate (fenofibrate 54 mg oral tablet) fexofenadine (Johanna) furosemide (furosemide 20 mg Tab) nicotine (nicotine 14 mg/24 hr Transderm ER Film) nitroglycerin (nitroglycerin 0.4 mg sublingual Tab) pantoprazole (Pantoprazole [address] Tab) Procedures Performed Colonoscopy (02/17/2023), EGD - esophagogastroduodenosc opy (02/16/2023), Cardiac pacemaker. Discharge Vitals Temperature (Temporal Artery) 36.6 ?C Heart Rate (Peripheral) 69 Blood Pressure 117/51 Height 175 cm Height 69 in Weight 87 kg Weight 191.4 lb BMI 28.41 What to do next Scheduled Follow-Up Appointments Friday 9:40 AM EST With: Nanci Jarvis MD Where: [facility] Family Medicine [facility] Gastroenterology Office/Clin ic Noteon 03-11-2023 Gastroenterology Office/Clinic Note Chief Complaint Hospital Follow up. HPI Staff This is a 87 year old male who was seen as a consult on 02/15/23, presents today for a follow up inpatient. Patient had colonoscopy 02/17/23 and EGD 02/16/23. Patient is here today with hie daughter Michelle. Patient lives at [facility] assisted living in [place]. He denies previous EGD or colonoscopy. History of Present Illness Patient is a 87-year-old male who presents for follow-up from inpatient stay at [facility] 02/15/23. Presents with his daughter today. Patient with history of atrial fibrillation, COPD, CKD, CVA. Hx. cardiac pacemaker. ED note indicated patient with hemoglobin of 4.5. Patient was evaluated and had normal EGD 02/16/2023. Patient had colonoscopy with Dr. Israel that revealed no active bleed however showed 17 polyps that were unable to be removed. Patient to have repeat colonoscopy in less than 3 months. Labs completed 02/20/2023 revealed improved H&H of 8.3/27.1. Is currently taking pantoprazole 40mg BID. Family history of colon cancer: Denies. Family history of colon polyps: Denies. Anticoagulation therapy: Denies. Antiplatelet therapy: Denies. During today's visit, patient's daughter reports he is not currently taking blood thinners. Is having 1 BM daily that are loose in consistency. Denies acid reflux, abdominal pain, nausea/vomiting, fevers/chills, and denies having any other GI complaints. Review of Systems PHQ Score Initial Depression Screen Score: 0 SCORE ROS - Provider Constitutional: no fever, no chills. Skin: no Jaundice. ENMT: Denies dysphagia and heartburn. Respiratory: no shortness of breath. Cardiovascular: no chest pain. Gastrointestinal: no nausea, no vomiting, yes loose stools, no GI bleeding. Physical Exam Vitals & Measurements T: 36.6 ?C(Temporal Artery) HR: 69(Peripheral) BP: 117/51 HT: 69 in HT: 175 cm WT: 87 kg WT: 191.4 lb BMI: 28.41 General: Well developed, well nourished, in no acute distress Head: Normocephalic/atraumati c Lungs: Normal respiratory effort and clear to auscultation Cardio: Regular rate and rhythm, normal S1 and S2, no murmur, no rub Abdomen: Soft, non-distended, non-tender. Normoactive bowel sounds present in all 4 abdominal quadrants, bilaterally. Mental Status: Alert and oriented x3. Normal mood and affect Assessment/Plan 1. Anemia (D64.9: Anemia, unspecified) Previous normal EGD 02/16/2023. Patient had colonoscopy with Dr. Israel that revealed no active bleed however showed 17 polyps that were unable to be removed. Patient to have repeat colonoscopy in less than 3 months. Ordered iron studies to evaluate for JANNIE. Labs completed 02/20/2023 revealed improved H&H of 8.3/27.1. Ordered Colonoscopy. Denies anticoagulation therapy. Will request pre-op cardiac clearance prior to colonoscopy. Ordered: Colonoscopy (Hospital Procedure) Ferritin Folate Level Iron Level Iron Percent Saturation TIBC Calculated Transferrin 2. Loose stools (R19.5: Other fecal abnormalities) Is having loose stools daily. Patient had colonoscopy with Dr. Israel that revealed no active bleed however showed 17 polyps that were unable to be removed. Patient to have repeat colonoscopy in less than 3 months. Ordered iron studies to evaluate for JANNIE. Educated to start fiber supplementation daily- 2 capsules of metamucil fiber daily- separate 2 hours from other medications. Labs completed 02/20/2023 revealed improved H&H of 8.3/27.1. Ordered Colonoscopy. Denies anticoagulation therapy. Ordered: Colonoscopy (Hospital Procedure) Educated regarding miralax colon prep. Follow-up With When Contact Information Pat Castro CNP Within 1 to 2 weeks Additional Instructions: Following Colonoscopy. Patient Education Anemia Problem List/Past Medical History Ongoing Alzheimer's disease, unspecified Anemia Carotid stenosis, bilateral Chronic obstructive pulmonary disease (COPD) Chronic respiratory failure with hypoxia Coronary artery disease Dementia in other diseases classified elsewhere, unspecified severity, without behavioral disturbance, psychotic disturbance, mood disturbance, and anxiety DANIEL (generalized anxiety disorder) Gait disorder Hyperlipidemia IFG (impaired fasting glucose) Loose stools Muscle weakness Neuropathy Pacemaker Paroxysmal atrial fibrillation Peripheral vascular disease Smoker 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 Medications Johanna atorvastatin 40 mg Tab, 40 mg= 1 tab(s), Oral, Daily, 5 refills donepezil 10 mg Tab, 10 mg= 1 tab(s), Oral, Once a day (at bedtime) Ensure, 237 mL, Oral, BIDWM ezetimibe 10 mg Tab, 10 mg= 1 tab(s), Oral, Daily fenofibrate 54 m (more content not included)... Normal [facility] Comment on above: Result Comment: Elec tronically Signed By: Pat Castro CNP\.johana\Date and Time Signed: 03/11/23 13:19 EST Patient Educationon 03-11-20 Patient Education Hematology Anemia Anemia is a condition in which there is not enough red blood cells or hemoglobin in the blood. Hemoglobin is a substance in red blood cells that carries oxygen. When you do not have enough red blood cells or hemoglobin (are anemic), your body cannot get enough oxygen and your organs may not work properly. As a result, you may feel very tired or have other problems. What are the causes? Common causes of anemia include: ? Excessive bleeding. Anemia can be caused by excessive bleeding inside or outside the body, including bleeding from the intestines or from heavy menstrual periods in females. ? Poor nutrition. ? Long-lasting (chronic) kidney, thyroid, and liver disease. ? Bone marrow disorders, spleen problems, and blood disorders. ? Cancer and treatments for cancer. ? HIV (human immunodeficiency virus) and AIDS (acquired immunodeficiency syndrome). ? Infections, medicines, and autoimmune disorders that destroy red blood cells. What are the signs or symptoms? Symptoms of this condition include: ? Minor weakness. ? Dizziness. ? Headache, or difficulties concentrating and sleeping. ? Heartbeats that feel irregular or faster than normal (palpitations). ? Shortness of breath, especially with exercise. ? Pale skin, lips, and nails, or cold hands and feet. ? Indigestion and nausea. Symptoms may occur suddenly or develop slowly. If your anemia is mild, you may not have symptoms. How is this diagnosed? This condition is diagnosed based on blood tests, your medical history, and a physical exam. In some cases, a test may be needed in which cells are removed from the soft tissue inside of a bone and looked at under a microscope (bone marrow biopsy). Your health care provider may also check your stool (feces) for blood and may do additional testing to look for the cause of your bleeding. Other tests may include: ? Imaging tests, such as a CT scan or MRI. ? A procedure to see inside your esophagus and stomach (endoscopy). ? A procedure to see inside your colon and rectum (colonoscopy). How is this treated? Treatment for this condition depends on the cause. If you continue to lose a lot of blood, you may need to be treated at a hospital. Treatment may include: ? Taking supplements of iron, vitamin B12, or folic acid. ? Taking a hormone medicine (erythropoietin) that can help to stimulate red blood cell growth. ? Having a blood transfusion. This may be needed if you lose a lot of blood. ? Making changes to your diet. ? Having surgery to remove your spleen. Follow these instructions at home: ? Take ouib-llx-gscqkrw and prescription medicines only as told by your health care provider. ? Take supplements only as told by your health care provider. ? Follow any diet instructions that you were given by your health care provider. ? Keep all follow-up visits as told by your health care provider. This is important. Contact a health care provider if: ? You develop new bleeding anywhere in the body. Get help right away if: ? You are very weak. ? You are short of breath. ? You have pain in your abdomen or chest. ? You are dizzy or feel faint. ? You have trouble concentrating. ? You have bloody stools, black stools, or tarry stools. ? You vomit repeatedly or you vomit up blood. These symptoms may represent a serious problem that is an emergency. Do not wait to see if the symptoms will go away. Get medical help right away. Call your local emergency services (911 in the [place] Do not drive yourself to the hospital. Summary ? Anemia is a condition in which you do not have enough red blood cells or enough of a substance in your red blood cells that carries oxygen (hemoglobin). ? Symptoms may occur suddenly or develop slowly. ? If your anemia is mild, you may not have symptoms. ? This condition is diagnosed with blood tests, a medical history, and a physical exam. Other tests may be needed. ? Treatment for this condition depends on the cause of the anemia. This information is not intended to replace advice given to you by your health care provider. Make sure you discuss any questions you have with your health care provider. Document Revised: 02/19/2022 Document Reviewed: 03/14/2020 Elsevier Patient Education ? 2022 [employer] Normal [facility] Pulmonary Function Studieson 03-10-2023 Pulmonary Function Studies PULMONARY FUNCTION TEST: 03/07/2023 REQUESTING PHYSICIAN: Johnny Villeda M.D. REASON FOR TESTING: Dyspnea on exertion. Spirometry results are acceptable and reproducible. FVC was 3.12 liters or 89% of predicted. FEV1 was 2.33 liters or 91% of predicted with a ratio of 75%. Lung volumes showed a total lung capacity of 59% of predicted, residual volume of 47% of predicted with a ratio of 35%. Diffusion capacity of carbon monoxide was 58% of predicted and when adjusted to alveolar volume at 76% of predicted. IMPRESSION: Pulmonary function test results are suggestive of a moderate degree of restrictive lung disease with a mild decrease in the diffusion capacity. This can be seen in intrinsic lung disease such as pulmonary fibrosis. Clinical correlation is recommended. READ BY: Tova Gore M.D. ca Dictated: 03/08/2023 [id number] Transcribed: 03/08/2023 cc:Johnny Villeda M.D. [facility] Comment on above: Result Comment: Elec tronically Signed By: Sofía PILLAI, Tova Finn\.br\Date and Time Signed: 03/10/23 09:16 EST Consent for Treatmenton 02-19 Consent for Treatment [id number]#1.00T IFF [facility] Outside Recordson 03-07-2023 Outside Records [id number]#1.00 TIFF Normal [facility] Pulmonary Function Testson 05-07-2022 Pulmonary Function Tests [id number]#1.00 TIFF [facility] Coding Queryon 03-01-2023 Coding Query - From: Stephania Stephen RN To: Sourav Canales DO; Sent: 02/28/2023 10:32:06 EST ! Subject: Coding Query Due Date/Time: 03/01/2023 10:32:00 EST Caller Name: THANH COLEMAN; Caller Number: Bartolo , M Documentation per a business analysis consultant in the medical record indicates this patient has been diagnosed as having: CKD stage 3 The following is also documented in the medical record: 02/16 History of Present Illness Patient is a very pleasant 87-year-old patient of Dr. Villeda's and was seen for the first time in December 2022 as an outpatient, nondiabetic current smoker of approximately 75 pack years, with chronic kidney deficiency stage III, COPD, coronary disease status postcardiac stents although he cannot recall where or when, status post open AAA repair, chronic atrial fibrillation on Eliquis therapy, status post pacemaker placement. Dr Villeda Based on your medical judgment of the documented diagnoses by the business analysis consultant, do you agree with the diagnosis? [___]Yes, I agree with the diagnosis documented by the business analysis consultant. [___]No, I do not agree with the diagnosis documented by the business analysis consultant. Reason: In responding to this request, please exercise your independent professional judgement. The fact that a question is asked does not imply that any particular answer is desired or expected. Thank you!stephania [id number] From: Sourav Canales DO To: Stephania Stephen RN; Sent: 03/01/2023 07:21:41 EST Subject: RE: Coding Query Caller Name: THANH COLEMAN; Caller Number: Bartolo , Carina Yes, I agree with the diagnosis documented by the business analysis consultant. Normal [facility] Insurance Correspondenceon 1 04-30-2022 Insurance Correspondence [id number]#1.00 TIFF Normal [facility] Coding Queryon 02-27-2023 Coding Query - From: Stephania Stephen RN To: Sourav Canales DO; Sent: 02/20/2023 09:03:35 EDT ! Subject: Coding Query Due Date/Time: 02/21/2023 09:03:00 EDT Caller Name: THANH COLEMAN; Caller Number: Bartolo , M Documentation in the medical record indicates that this patient has been identified to have and/or is being treated for GI Bleeding. The following is also documented in the medical record: Acute blood loss anemia due to GI bleed -EGD showed normal esophagus and stomach with normal duodenum and examined jejunum; colonoscopy yesterday the showed no obvious source of lower GI bleed; there were 17 polyps noted but no polypectomy was performed as polypectomy would lead to potential bleeding and confound clinical picture Continue holding Eliquis and aspirin Based on your medical judgment, can you further clarify possible/probable cause of the GI bleed ? ____Hemorrhagic disorder d/t anticoagulants [___]Gastrointestinal hemorrhage, unspecified [___]Other: In responding to this request, please exercise your independent professional judgement. The fact that a question is asked does not imply that any particular answer is desired or expected. Thank you!stephania [id number] From: Sourav Canales DO To: Stephania Stephen RN; Sent: 02/27/2023 09:28:13 EST Subject: RE: Coding Query Caller Name: THANH COLEMAN; Caller Number: Bartolo , Carina Gastrointestinal hemorrhage, unspecified Normal [facility] Pre-Visit Planningon 023 Pre-Visit Planning - From: Jojo Watson To: Matheus PILLAI, Nanci; Sent: 02/24/2023 14:41:16 EST Subject: Pre-Visit Planning Due Date/Time: 02/24/2023 14:41:00 EST Caller Name: THANH COLEMAN; Caller Number: Bartolo , Carina Sd Dr. Jarvis. During an annual wellness pre-visit planning chart review, I noted the following documentation in the medical record: Current Problem List: COPD and Smoker. Current Medication List: nicotine patch. 02/19/2023 Oxygen Desaturation Study: Based on your medical judgment, can you please clarify which, if any, of the following conditions are present? I can update the Chronic Problem List with your response if you would like. -Chronic respiratory failure with hypoxia -Chronic respiratory failure with hypercapnia -Other: In responding to this request, please exercise your independent professional judgment. The fact that a question is asked does not imply that any particular answer is desired or expected. If you have any questions, please feel free to contact me at extension [phone]. Thank you! Jojo Watson LPN From: Nanci Jarvis MD To: Jojo Watson; Sent: 02/25/2023 08:11:29 EST Subject: RE: Pre-Visit Planning Caller Name: THANH COLEMAN; Caller Number: Bartolo , Carina please add the following Chronic respiratory failure with hypoxia Normal [address] [place] [address] Blood Bank Slipon 02-24-2023 Blood Bank Slip [id number]#1.00 TIFF Normal [facility] Blood Bank Slip [id number]#1.00 TIFF Normal [facility] Blood Bank Slip [id number]#1.00 TIFF Normal [facility] Consent for Blood Transfusio non 02-24-2023 Consent for Blood Transfusion [id number]#1.00 TIFF Normal [facility] Discharge Instructionson Discharge Instructions [id number]#1.00 TIFF Normal [facility] Medication Listson Medication Lists [id number]#1.00 TIFF Normal [facility] Outside Cardiovascularon Outside Cardiovascular [id number]#1.00 TIFF Normal [facility] Transfer Documentson 023 Transfer Documents [id number]#1.00 TIFF Normal [facility] Transfer Documents [id number]#1.00 TIFF Normal [facility] Transfer Documents [id number]#1.00 TIFF Normal [facility] Ammoniaon 02-21-2023 Ammonia (P) [Moles/Vol] 21 mcmol Normal [facility] Comment on above: Performed By: #### 1 [id number], [id number] #### [facility] [address] [place] [id number] C Urineon 02-21-2023 Bacteria identified Cx Nom (U) Microbiology PROCEDURE: Urine Culture [R1] SOURCE: U CleanCatch BODY SITE: COLLECTED DATE/TIME: 02/19/2023 20:23 EDT RECEIVED DATE/TIME: 02/19/2023 23:27 EDT START DATE/TIME: 02/19/2023 23:27 EDT FREE TEXT SOURCE: Sourav Canales DO, DO, Alexander M. FINAL REPORTS Final Report [] Verified Date/Time: 02/21/2023 09:44 EDT <10,000 cfu/ml Mixed skin contaminants Performing Locations R1: This test was performed at: [facility], [address] [place] [address], [id number] , , [facility] Comment on above: Performed By: #### 2 [id number], [id number] ####[facility] [address] [place] [address] Discharge Note-Nursingon Discharge Note-Nursing THANH COLEMAN :1935 Visit Date:02/15/2023 Inpatient Discharge Instructions Your Care Team Admitting Physician - Lavell Siegel DO Consulting Physician - Pio PILLAI, Bela Cano Reason for Your Visit patient c/o generalized weakness and fatigue that started a few weeks ago and has gotten worse over the past few days. denies chest pain or SOB. hx afib. pt appears pale and easily fatigued. denies blood in stool Your Diagnosis Acute blood loss anemia GI bleed SUMMER (acute kidney injury) Elevated troponin Dyspnea Generalized weakness Atelectasis of both lungs Carotid stenosis, bilateral Smoker Hyperlipidemia Hypertension Coronary artery disease History of cerebrovascular accident Obesity Paroxysmal atrial fibrillation Pacemaker On deep vein thrombosis (DVT) prophylaxis Tachycardia Weakness or fatigue Tests Performed ABO/Rh ABO/Rh Retype Ammonia Level Antibody Screen Automated Diff BMP BMP Capillary Glucose POC CBC w/ Auto Diff CBC w/ Indices CMP Crossmatch eGFR Hemoglobin and Hematocrit Hepatic Function Panel Lytes Magnesium Level Morphology Occult Blood Stl Path. Review PT & PTT Stool Occult Blood -- Results Pending -- Troponin 0 Hr. Troponin 3 Hr. Troponin 6 Hr. Troponin 9 Hr. UA With Cult Reflex Urinalysis with Culture Reflex XR Chest Single View Please visit your patient portal for your results or contact your primary care physician. This Is Your Medications List Ensure atorvastatin (atorvastatin 40 mg Tab) cholecalciferol (Vitamin D3 2000 intl units oral Tab) donepezil (donepezil 10 mg Tab) ezetimibe (ezetimibe 10 mg Tab) fenofibrate (fenofibrate 54 mg oral tablet) furosemide (furosemide 20 mg Tab) nicotine (nicotine 14 mg/24 hr Transderm ER Film) nitroglycerin (nitroglycerin 0.4 mg sublingual Tab) pantoprazole (Pantoprazole [address] Tab) [Image Removed: STOP]Stop taking these medications apixaban (Eliquis 2.5 mg oral tablet) aspirin (aspirin 81 mg Oral EC Tab) Procedure History Colonoscopy (02/17/2023), EGD - esophagogastroduodenosc opy (02/16/2023), Cardiac pacemaker. Discharge Vitals Temperature (Oral) 36.8 ?C Heart Rate (Monitored) 90 Respiratory Rate 18 Blood Pressure 138/64 Weight 87.5 kg What to do next Instructions From Your Doctor Event Name Event Result Discharge Activity Ambulate as tolerated Discharge Diet(s) Fat Modified- Low cholesterol Discharge Instructions HOLD Eliquis and aspirin til F/U with GI Previously Scheduled Follow-Up Appointments Friday 10:00 AM EST With: Nanci Jarvis MD Where: [facility] Medicine [facility] [address] Medical [place] [address] [place] [id number]- \.br\ Friday 3:45 PM EST \.br\ With: RONAL PILLAI, Johnny Vega\.br\ Where: Cardiology Clinic\.br\ New Follow Up Appointments after Discharge\.br\ Follow Up with Blea Suero When: 02/27/2023 10:00 AM EST\.br\ Comments:\.br\ Will be seeing Pat Castro CNP at this appointment.\.br\ Where:\.br\ [address]\.br\ [facility] [address]\.br\ [place] [address]-\.br\ [phone] Business (1)\.br\ Follow Up with Nanci Jarvis When: 02/26/2023 10:00 AM EST\.br\ Where:\.br\ [address] [facility]\.br\ [place] [address]-\.br\ [phone] Business (1)\.br\ Medications\.br\ What How Much When Instructions Next Dose\.br\ New Ensure 237 Milliliter By Mouth Twice a day (with meals) Dinner time\.br\ New nicotine (nicotine 14 mg/ 24 hr Transderm ER Film) Transdermal Every day 02/22\.br\ Changed donepezil (donepezil 10 mg Tab) 1 Tablets By Mouth Once a day (at bedtime) 02/21 9pm\.br\ Changed pantoprazole (Pantoprazole [address] Tab) 1 Tablets By Mouth 2 times a day 02/21 9pm\.br\ Unchanged atorvastatin (atorvastatin 40 mg Tab) 1 Tablets By Mouth Every day 02/22 9am\.br\ Unchanged cholecalciferol (Vitamin D3 2000 intl units oral Tab) 50 Microgram By Mouth Every day 02/22\.br\ Unchanged ezetimibe (ezetimibe 10 mg Tab) 1 Tablets By Mouth Every day 02/22\.br\ Unchanged fenofibrate (fenofibrate 54 mg oral tablet) 1 Tablets By Mouth Every day 02/22\.br\ Unchanged furosemide (furosemide 20 mg Tab) 1 Tablets By Mouth Every day as needed for Edema 02/22\.br\ Unchanged nitroglycerin (nitroglycerin 0.4 mg sublingual Tab) 1 Tablets Sublingual Every 5 minutes as needed for for chest pain as needed for chest pain\.br\ \.br\ What How Much When Comments\.br\ Stop Taking apixaban (Eliquis 2.5 mg oral tablet) 1 Tablets By Mouth 2 times a day\.br\ Stop Taking aspirin (aspirin 81 mg Oral EC Tab) 1 Tablets By Mouth Every day\.br\ Test Results\.br\ CBC \.br\ BMP \.br\ WBC: 5.8 E9/L (02/20/23 06:16:00)\.br\ Glucose Lvl: 97 mg/dL (02/20/23 06:16:00)\.br\ RBC: 3.6 E12/L Low (02/20/23 06:16:00)\.br\ BUN: 21 mg/dL (02/20/23 06:16:00)\.br\ HGB: 8.3 gm/dL Low (02/20/23 06:16:00)\.br\ Creatinine: 1.3 mg/dL (02/20/23 06:16:00)\.br\ Hct: 27.1 % Low (02/20/23 06:16:00)\.br\ BUN/Creat Ratio: 16 (02/20/23 06:16:00)\.br\ MCV: 76.4 fL Low (02/20/23 06:16:00)\.br\ Sodium Lvl: 147 mmol/L High (02/20/23 18:51:00)\.br\ MCH: 23.2 pg Low (02/20/23 06:16:00)\.br\ Potassium Lvl: 4 mmol/L (02/20/23 18:51:00)\.br\ MCHC: 30.4 gm/dL Low (02/20/23 06:16:00)\.br\ Chloride: 109 mmol/L (02/20/23 18:51:00)\.br\ RDW: 24.4 % High (02/20/23 06:16:00)\.br\ CO2: 34 mmol/L High (02/20/23 18:51:00)\.br\ Platelet: 153 E9/L (02/20/23 06:16:00)\.br\ AGAP: 8 mEq/L (02/20/23 18:51:00)\.br\ MPV: 8.9 fL (02/20/23 06:16:00)\.br\ Calcium Lvl: 8.7 mg/dL Low (02/20/23 06:16:00)\.br\ Allergies\.br\ No Known Medication Allergies\.br\ Problems\.br\ Ongoing - Any problem that you are currently receiving treatment for.\.br\ Carotid stenosis, bilateral\.br\ Smoker\.br\ Education Materials\.br\ Anemia\.br\ \.br\ Anemia is a condition in which there is not enough red blood cells or hemoglobin in the blood. Hemoglobin is a substance in red blood cells that carries oxygen.\.br\ When you do not have enough red blood cells or hemoglobin (are anemic), your body cannot get enough oxygen and your organs may not work properly. As a result, you may feel very tired or have other problems.\.br\ What are the causes?\.br\ Common causes of anemia include:\.br\ ? \.br\ Excessive bleeding. Anemia can be caused by excessive bleeding inside or outside the body, including bleeding from the intestines or from heavy menstrual periods in females.\.br\ ? \.br\ Poor nutrition.\.br\ ? \.br\ Long-lasting (chronic) kidney, thyroid, and liver disease.\.br\ ? \.br\ Bone marrow disorders, spleen problems, and blood disorders.\.br\ ? \.br\ Cancer and treatments for cancer.\.br\ ? \.br\ HIV (human immunodeficiency virus) and AIDS (acquired immunodeficiency syndrome).\.br\ ? \.br\ Infections, medicines, and autoimmune disorders that destroy red blood cells.\.br\ What are the signs or symptoms?\.br\ Symptoms of this condition include:\.br\ ? \.br\ Minor weakness.\.br\ ? \.br\ Dizziness.\.br\ ? \.br\ Headache, or difficulties concentrating and sleeping.\.br\ ? \.br\ Heartbeats that feel irregular or faster than normal (palpitations).\. br\ ? \.br\ Shortness of breath, especially with exercise.\.br\ ? \.br\ Pale skin, lips, and nails, or cold hands and feet.\.br\ ? \.br\ Indigestion and nausea.\.br\ Symptoms may occur suddenly or develop slowly. If your anemia is mild, you may not have symptoms.\.br\ How is this diagnosed?\.br\ This condition is diagnosed based on blood tests, your medical history, and a physical exam. In some cases, a test may be needed in which cells are removed from the soft tissue inside of a bone and looked at under a microscope (bone marrow biopsy). Your health care provider may also check your stool (feces) for blood and may do additional testing to look for the cause of your bleeding.\.br\ Other tests may include:\.br\ ? \.br\ Imaging tests, such as a CT scan or MRI.\.br\ ? \.br\ A procedure to see inside your esophagus and stomach (endoscopy).\.br\ ? \.br\ A procedure to see inside your colon and rectum (colonoscopy).\.b r\ How is this treated?\.br\ Treatment for this condition depends on the cause. If you continue to lose a lot of blood, you may need to be treated at a hospital. Treatment may include:\.br\ ? \.br\ Taking supplements of iron, vitamin B12, or folic acid.\.br\ ? \.br\ Taking a hormone medicine (erythropoietin) that can help to stimulate red blood cell growth.\.br\ ? \.br\ Having a blood transfusion. This may be needed if you lose a lot of blood.\.br\ ? \.br\ Making changes to your diet.\.br\ ? \.br\ Having surgery to remove your spleen.\.br\ Follow these instructions at home:\.br\ ? \.br\ Take bneh-dwa-xbaizwf and prescription medicines only as told by your health care provider.\.br\ ? \.br\ Take supplements only as told by your health care provider.\.br\ ? \.br\ Follow any diet instructions that you were given by your health care provider.\.br\ ? \.br\ Keep all follow-up visits as told by your health care provider. This is important.\.br\ Contact a health care provider if:\.br\ ? \.br\ You develop new bleeding anywhere in the body.\.br\ Get help right away if:\.br\ ? \.br\ You are very weak.\.br\ ? \.br\ You are short of breath.\.br\ ? \.br\ You have pain in your abdomen or chest.\.br\ ? \.br\ You are dizzy or feel faint.\.br\ ? \.br\ You have trouble concentrating.\.b r\ ? \.br\ You have bloody stools, black stools, or tarry stools.\.br\ ? \.br\ You vomit repeatedly or you vomit up blood.\.br\ These symptoms may represent a serious problem that is an emergency. Do not wait to see if the symptoms will go away. Get medical help right away. Call your local emergency services (911 in the [place] Do not drive yourself to the hospital.\.br\ Summary\.br\ ? \.br\ Anemia is a condition in which you do not have enough red blood cells or enough [facility] Inpatient Clinical Summaryon 02-21-2023 Inpatient Clinical Summary [place] [id number] Clinical Summary Person Information: Name: THANH COLEMAN Age: 87 Years : 1935 Sex: Male PCP: Nanci Jarvis MD Marital Status: Phone: [phone] Race: White Ethnicity: Non- or Language: Samoan Visit Id: Visit Reason: Tachycardia; Weakness or fatigue; poss asthenia Speciality: Acuity: Enc Type: Inpatient Med Service: Medical Arrival: 02/15/2023 13:33:36 Discharge: Dispo Type: Admitted as IP to this Hosp Address: [address] [place] [id number] Provider Notes: Diagnosis: 1:Acute blood loss anemia; 2:GI bleed; 3:SUMMER (acute kidney injury); 4:Elevated troponin; 5:Dyspnea; 6:Generalized weakness; 7:Atelectasis of both lungs; 8:Carotid stenosis, bilateral; 9:Smoker; 10:Hyperlipidemia; 11:Hypertension; 12:Coronary artery disease; 13:History of cerebrovascular accident; 14:Obesity; 15:Paroxysmal atrial fibrillation; 16:Pacemaker; 17:On deep vein thrombosis (DVT) prophylaxis Problems Active Smoker Carotid stenosis, bilateral Smoking Status: Former Smoker Functional Status: Sensory Deficits: History of Falls: Mobility Assistance Prior to Admission: ADLs: Complete assist Current Level of Assistance for Self-Care/Mobility: Cognitive Status: Oriented x 3 Allergies No Known Medication Allergies Measurements: Height: 180 cm Weight: 87.5 kg Blood Pressure: 138 mmHg / 64 mmHg BMI: 28.4 kg/m2 Procedures Colonoscopy (02/17/2023) EGD - esophagogastroduodenosc opy (02/16/2023) Immunizations No Immunizations Documented This Visit Final Med List: atorvastatin (atorvastatin 40 mg Tab) 1 Tablets By Mouth every day. Refills: 5. cholecalciferol (Vitamin D3 2000 intl units oral Tab) 50 Microgram By Mouth every day. donepezil (donepezil 10 mg Tab) 1 Tablets By Mouth once a day (at bedtime). Ensure 237 Milliliter By Mouth twice a day (with meals). ezetimibe (ezetimibe 10 mg Tab) 1 Tablets By Mouth every day. fenofibrate (fenofibrate 54 mg oral tablet) 1 Tablets By Mouth every day. furosemide (furosemide 20 mg Tab) 1 Tablets By Mouth every day as needed Edema. nicotine (nicotine 14 mg/24 hr Transderm ER Film) Transdermal every day. nitroglycerin (nitroglycerin 0.4 mg sublingual Tab) 1 Tablets Sublingual every 5 minutes as needed for chest pain. pantoprazole (Pantoprazole [address] Tab) 1 Tablets By Mouth 2 times a day. Refills: 5. Care Team Members: Attending Physician: Lavell Siegel DO Physician: Pio PILLAI, Bela Cano Referring Physician: Follow up: With: Address: When: Bela Suero [address] [place] [address], [facility] [address], [address] [address] [phone] Business (1) 02/27/2023 10:00 AM Comments: Will be seeing Pat Castro CNP at this appointment. With: Address: When: Nanci Jarvis [address] [place] [id number] [phone] Business (1) 02/26/2023 10:00 AM Type Location Start [facility] ER/Hospital Follow Up [facility] 02/26/2023 10:00 AM 02/26/2023 10:20 AM Confirmed BADH Follow Up [facility] 02/27/2023 10:00 AM 02/27/2023 10:20 AM Confirmed Cardiology Follow Up (FT) .[facility] 03/14/2023 3:45 PM 03/14/2023 4:00 PM Confirmed Patient Education Information: Normal [facility] Inpatient Patient Summaryon 02-21-2023 Inpatient Patient Summary [address] [address] Patient Discharge Instructions PERSON INFORMATION Name: THANH COLEMAN Date of : 1935 Current Date: 02/21/2023 12:52:01 PHYSICIANS Admitting Physician: Lavell Siegel DO Primary Care Physician: Nanci Jarvis MD PCP Phone Number: [phone] Comment: Discharge Diagnosis: 1:Acute blood loss anemia; 2:GI bleed; 3:SUMMER (acute kidney injury); 4:Elevated troponin; 5:Dyspnea; 6:Generalized weakness; 7:Atelectasis of both lungs; 8:Carotid stenosis, bilateral; 9:Smoker; 10:Hyperlipidemia; 11:Hypertension; 12:Coronary artery disease; 13:History of cerebrovascular accident; 14:Obesity; 15:Paroxysmal atrial fibrillation; 16:Pacemaker; 17:On deep vein thrombosis (DVT) prophylaxis Condition at Discharge: Stable THANH COLEMAN has been given the following list of follow-up instructions, prescriptions, and patient education materials: PATIENT FOLLOW-UP INFORMATION Diet: Fat Modified- Low cholesterol Discharge Activity: Ambulate as tolerated Discharge Restrictions: Wound Care Instructions: Remove Your Dressing In Days Call Your Doctor For: IF UNABLE TO CONTACT YOUR PHYSICIAN AND YOU FEEL IT IS AN EMERGENCY, GO TO THE NEAREST EMERGENCY ROOM OR CALL 911 Home Treatment: Devices/Equipment: Cane Special Services: Additional Instructions: HOLD Eliquis and aspirin til F/U with GI Primary Care Physician to provide the following pending test results: Follow up: With: Address: When: Bela Suero [address] [place] [address], [address], [address] [id number] [phone] Dissolve (1) 02/27/2023 10:00 AM Comments: Will be seeing Pat Castro CNP at this appointment. With: Address: When: Nanci Jarvis [address] [place] [phone] Dissolve () 02/26/2023 10:00 AM In the event that this physician does not participate in your insurance network, please consult with your insurance company to find a nearby participating provider. Type Location Start [facility] ER/Hospital Follow Up [facility] 02/26/2023 10:00 AM 02/26/2023 10:20 AM Confirmed BADH Follow Up [facility] 02/27/2023 10:00 AM 02/27/2023 10:20 AM Confirmed [facility] 03/14/2023 3:45 PM 03/14/2023 4:00 PM Confirmed Comment: VIRGINIA Hopkins DONALD, have received the attached patient education materials/instructions and have verbalized understanding: Patient Signature Date Clinican/Nurse Signature _ Date HERE ARE THE MEDICATION CHANGES THAT OCCURRED DURING YOUR HOSPITAL STAY New Medications Other Medications Ensure 237 Milliliter By Mouth twice a day (with meals). Last Dose: __Next Dose: __ nicotine (nicotine 14 mg/24 hr Transderm ER Film) Transdermal every day. Last Dose: __Next Dose: __ Medications to Continue Taking That Have Changed Other Medications START: donepezil (donepezil 10 mg Tab) 1 Tablets By Mouth once a day (at bedtime)., to take this after taking the 5mg for 30 days Last Dose: __Next Dose: __ STOP: donepezil (donepezil 5 mg Tab) 1 Tablets By Mouth once a day (at bedtime). START: pantoprazole (Pantoprazole [address] Tab) 1 Tablets By Mouth 2 times a day. Refills: 5. Last Dose: __Next Dose: __ STOP: pantoprazole (Pantoprazole [address] Tab) 1 Tablets By Mouth every day. Refills: 5. Medications to Continue with No Changes Other Medications atorvastatin (atorvastatin 40 mg Tab) 1 Tablets By Mouth every day. Refills: 5. Last Dose: __Next Dose: __ cholecalciferol (Vitamin D3 2000 intl units oral Tab) 50 Microgram By Mouth every day. Last Dose: __Next Dose: __ ezetimibe (ezetimibe 10 mg Tab) 1 Tablets By Mouth every day. Last Dose: __Next Dose: __ fenofibrate (fenofibrate 54 mg oral tablet) 1 Tablets By Mouth every day. Last Dose: __Next Dose: __ furosemide (furosemide 20 mg Tab) 1 Tablets By Mouth every day as needed Edema. Last Dose: __Next Dose: __ nitroglycerin (nitroglycerin 0.4 mg sublingual Tab) 1 Tablets Sublingual every 5 minutes as needed for chest pain. Last Dose: __Next Dose: __ No Longer Take the Following Medications apixaban (Eliquis 2.5 mg oral tablet) 1 Tablets By Mouth 2 times a day. Refills: 5. aspirin (aspirin 81 mg Oral EC Tab) 1 Tablets By Mouth every day. Comment: MEDICATION LIST PROVIDED FOR YOU IS A LIST OF YOUR CURRENT MEDICATIONS. PLEASE CARRY THIS WITH YOU AT ALL TIMES. atorvastatin (atorvastatin 40 mg Tab) 1 Tablets By Mouth every day. (more content not included)... Normal [facility] Interdisciplinary Note - Ron e Manageron 02-21-2023 Interdisciplinary Note - Submarine Cable Equipment Technician CRM to room to discuss DC Planning. Patient is drowsy and only opens his eyes to CRM once his name is spoken. Reported to CRM increased confusion and decreased mobility. Patient is from there [facility]. Patient will need transport at [place] . Patient verified PCP, home DME and insurance on admit. Patient is here as inpatient. Patient is here for Anemia, Black Stool. Patient had elevated troponin on admission. Patient is assigned to Dr Canales, see notes. Patient has Cardiology and GI consults on case. Patient on 02/16 had EGD. On 02/17 Colonoscopy. Patient has had blood transfusion this stay. PT/ OT recs HH Vs SNF. Patient is now with referral to [facility] and he is pending precert. Patient would like a FWW and Toilet Riser, this will need arranged post SNF now.. . Patient was provided CRM contact, white board updated. Anticipated DC once cert obtained. CRM following Auth is back, Dr Canales called Daughter and provided her update of DC Normal [facility] Comment on above: Result Comment: Elec tronically Signed By: Natalya Rivas\.br\Date and Time Signed: 02/21/23 13:10 EDT Auto Diffon 02-20-2023 Basophils/100 WBC (Bld) 1.0 % Normal 0.0-2.0 [facility] Comment on above: Order Comment: Order Added by Discern Expert. Performed By: #### 1 [id number], 35107942, 5013643, 9170962, [id number] #### [facility] [address] [place] [address] Basophils/Leukocyte s Auto (Bld) [Pure # fraction] 0.1 E9/L Normal 0.0-0.2 [facility] Comment on above: Order Comment: Order Added by Discern Expert. Performed By: #### 1 [id number], 29791069, 3575786, 6531476, 70850895 #### [facility] [address] [place] [address] Eosinophils/100 WBC (Bld) 3.7 % Normal 0.0-8.0 [facility] Comment on above: Order Comment: Order Added by Discern Expert. Performed By: #### 1 [id number], 90157362, 7452979, 9631413, 57293674 #### [facility] [address] [place] [address] Eosinophils/Leukocy rosanna Auto (Bld) [Pure # fraction] 0.2 E9/L Normal 0.0-0.5 [facility] Comment on above: Order Comment: Order Added by Discern Expert. Performed By: #### 1 3243279, 81387530, 6706373, 4091366, 29052340 #### [facility] [address] [place] [address] Lymphocytes/100 WBC (Bld) 15.0 % Normal 14.0-50.0 [facility] Comment on above: Order Comment: Order Added by Discern Expert. Performed By: #### 1 8939118, 77777671, 1361148, 1053360, 41273310 #### [facility] [address] [place] [address] Lymphocytes/Leukocy rosanna Auto (Bld) [Pure # fraction] 0.9 E9/L Low 1.0-4.0 [facility] Comment on above: Order Comment: Order Added by Discern Expert. Performed By: #### 1 1544432, 32530770, 2558327, 4397736, 73649102 #### [facility] [address] [place] [address] Monocytes/100 WBC (Bld) 12.5 % Normal 4.0-14.0 [facility] Comment on above: Order Comment: Order Added by Discern Expert. Performed By: #### 1 9170015, 48477435, 4801827, 1282526, 22750597 #### [facility] [address] [place] [address] Monocytes/Leukocyte s Auto (Bld) [Pure # fraction] 0.7 E9/L Normal 0.2-1.0 [facility] Comment on above: Order Comment: Order Added by Cam Expert. Performed By: #### 1 7822911, 53332614, 4449949, 7209911, 04182851 #### [facility] [address] [place] [address] Neutrophils/100 WBC (Bld) 67.8 % Normal 36.0-75.0 [facility] Comment on above: Order Comment: Order Added by Discern Expert. Performed By: #### 1 2493637, 21012344, 4110799, 2416994, 20312803 #### [facility] [address] [place] [address] Neutrophils/Leukocy rosanna Auto (Bld) [Pure # fraction] 3.9 E9/L Normal 2.0-7.5 [facility] Comment on above: Order Comment: Order Added by Discern Expert. Performed By: #### 1 0594980, 27545114, 7598865, 6010653, 72263407 #### [facility] [address] [place] [address] CBC w/ Auto Diffon 3 Erythrocyte distribution width (RBC) [Ratio] 24.4 % High 10.9-14.2 [facility] Comment on above: Performed By: #### 1 7368544, 22226151, 0217708, 3434571, 94793242 #### [facility] [address] [place] [address] Hematocrit (Bld) [Volume fraction] 27.1 % Low 37.7-49.0 [facility] Comment on above: Performed By: #### 1 5748435, 12377672, 7053504, 7291363, 30778631 #### [facility] [address] [place] [address] Hemoglobin (Bld) [Mass/Vol] 8.3 g/dL Low 13.5-17.5 [facility] Comment on above: Performed By: #### 1 5525013, 74834122, 6531019, 8106235, 86973935 #### [facility] [address] [place] [address] 45398 MCH (RBC) [Entitic mass] 23.2 pg Low 27.0-34.0 [facility] Comment on above: Performed By: #### 1 7946269, 51535078, 6720424, 5529993, 90390489 #### [facility] [address] [place] [address] MCHC (RBC) [Mass/Vol] 30.4 g/dL Low 31.4-36.0 [facility] Comment on above: Performed By: #### 1 1467594, 98172225, 8551516, 4804992, 77570987 #### [facility] [address] [place] [address] MCV (RBC) [Entitic vol] 76.4 fL Low 80.0-100.0 [facility] Comment on above: Performed By: #### 1 6116605, 57204027, 9440236, 8655416, 78412998 #### [facility] [address] [place] [address] Platelet mean volume (Bld) [Entitic vol] 8.9 fL Normal 6.4-10.8 [facility] Comment on above: Performed By: #### 1 7413175, 27719862, 4842503, 8882838, 69079703 #### [facility] [address] [place] [address] Platelets (Bld) [#/Vol] 153.0 E9/L Normal 150.0-500.0 [facility] Comment on above: Performed By: #### 1 3565348, 95657740, 5016212, 1977950, 06546323 #### [facility] [address] [place] [address] RBC (Bld) [#/Vol] 3.6 E12/L Low 4.3-5.9 [facility] Comment on above: Performed By: #### 1 7680441, 68236810, 3308336, 1112510, 48536388 #### [facility] [address] [place] [address] WBC corrected for nucl RBC Auto (Bld) [#/Vol] 5.8 E9/L Normal 4.0-11.0 [facility] Comment on above: Performed By: #### 1 6848628, 22518112, 8958671, 1667782, 68235485 #### [facility] [address] [place] [address] CMPon 02-20-2023 Albumin [Mass/Vol] 3.2 g/dL Low 3.3-5.0 [facility] Comment on above: Performed By: #### 1 5679608, 82983348, 0844837, 9344499, 92254689 #### [facility] [address] [place] [address] Albumin/Globulin (S) [Mass conc ratio] 1.0 Low 1.1-2.2 [facility] Comment on above: Performed By: #### 1 0944577, 18908465, 4325692, 5029980, 46627345 #### [facility] [address] [place] [address] ALP [Catalytic activity/Vol] 57 Int._Unit/L Normal 21-98 [facility] Comment on above: Performed By: #### 1 1057577, 81403091, 3446594, 7547385, 18486223 #### [facility] [address] [place] [address] ALT No additional P-5'-P [Catalytic activity/Vol] 48 Int._Unit/L High 6-46 [facility] Comment on above: Performed By: #### 1 2685994, 49016890, 3338552, 7351669, 92526757 #### [facility] [address] [place] [address] Anion gap [Moles/Vol] 4 mmol/L Low 6-16 [facility] Comment on above: Performed By: #### 1 0009271, 47443340, 3636073, 6129282, 18212303 #### [facility] [address] [place] [address] AST [Catalytic activity/Vol] 21 Int._Unit/L Normal 5-43 [facility] Comment on above: Performed By: #### 1 2472126, 44987853, 8940718, 0441245, 90197351 #### [facility] [address] [place] [address] Bilirubin [Mass/Vol] 0.9 mg/dL Normal 0.0-1.1 [facility] Comment on above: Performed By: #### 1 0645203, 19260781, 1074127, 0423003, 39683527 #### [facility] [address] [place] [address] Calcium [Mass/Vol] 8.7 mg/dL Low 8.9-11.1 [facility] Comment on above: Performed By: #### 1 8319303, 42126317, 4842767, 0469420, 54873634 #### [facility] [address] [place] [address] Chloride [Moles/Vol] 114 mmol/L High 101-111 [facility] Comment on above: Performed By: #### 1 0176918, 15865035, 3180707, 8996978, 83406845 #### [facility] [address] [place] [address] CO2 [Moles/Vol] 31 mmol/L Normal 21-31 [facility] Comment on above: Performed By: #### 1 6402877, 79038780, 6611068, 0594318, 73688004 #### [facility] [address] [place] [address] Creatinine [Mass/Vol] 1.3 mg/dL Normal 0.5-1.3 [facility] Comment on above: Performed By: #### 1 4325331, 49456669, 4488178, 3353425, 48560884 #### [facility] [address] [place] [address] Globulin (S) [Mass/Vol] 3.2 g/dL Normal 1.4-4.0 [facility] Comment on above: Performed By: #### 1 3872813, 84746335, 8940046, 6719960, 62460460 #### [facility] [address] [place] [address] Glucose [Mass/Vol] 97 mg/dL Normal 55-199 [facility] Comment on above: Result Comment: If t his glucose result represents a fasting glucose, interpretation should refer to the following reference range: 55-99 mg/dL Performed By: #### 1 8142531, 18926691, 1814067, 6229238, 58230448 #### [facility] [address] [place] [address] Potassium [Moles/Vol] 4.4 mmol/L Normal 3.5-5.3 [facility] Comment on above: Performed By: #### 1 4446919, 82976636, 4592980, 2759228, 71667856 #### [facility] [address] [place] [address] Protein [Mass/Vol] 6.4 g/dL Normal 6.0-7.8 [facility] Comment on above: Performed By: #### 1 6023211, 40506506, 3250847, 3674079, 93900411 #### [facility] [address] [place] [address] Sodium [Moles/Vol] 145 mmol/L Normal 135-145 [facility] Comment on above: Performed By: #### 1 4116569, 24488065, 0010347, 5170026, 83753068 #### [facility] [address] [place] [address] Urea nitrogen [Mass/Vol] 21 mg/dL Normal 5-21 [facility] Comment on above: Performed By: #### 1 1902217, 51615559, 4329878, 1881257, 77194569 #### [facility] [address] [place] [address] Urea nitrogen/Creatinine [Mass ratio] 16 No Units Normal 10-20 [facility] Comment on above: Performed By: #### 1 0445842, 66513762, 3569972, 5007757, 58778255 #### [facility] [address] [place] [address] Interdisciplinary Note - Ron e Manageron 02-20-2023 Interdisciplinary Note - Submarine Cable Equipment Technician CRM to room to discuss DC Planning. Patient is drowsy and only opens his eyes to CRM once his name is spoken. Reported to CRM increased confusion and decreased mobility. Dr Canales is aware of confusion and mobility concerns. Patient is from there [facility]. Patient will need transport at [place] . Patient verified PCP, home DME and insurance on admit. Patient is here as inpatient. Patient is here for Anemia, Black Stool. Patient had elevated troponin on admission. Patient is assigned to Dr Canales, see notes. Patient has Cardiology and GI consults on case. Patient on 02/16 had EGD. On 02/17 Colonoscopy. Patient has had blood transfusion this stay. PT/ OT recs HH Vs SNF. Patient is now with referral to [facility] and he is pending precert. Patient would like a FWW and Toilet Riser, this will need arranged post SNF now.. . Patient was provided CRM contact, stacey board updated. Anticipated DC 02/21 or 02/22? CRM following Daughter Michelle Called to provide an update. Normal [facility] Comment on above: Result Comment: Elec tronically Signed By: Natalya Rivas\.br\Date and Time Signed: 02/20/23 11:37 EDT Interdisciplinary Note - Nut ritelliotton 02-20-2023 Interdisciplinary Note - Nutrition Pt rescreened due to LOS. Pt rescreened due to LOS. Pt adm with GIB, has received blood and Hgb stable. Weight reviewed and gain noted 2.3 kg. Tolerating oral diet, but has had a decrease in appetite over the last 2 days. On cardiac diet, will change to regular. Now making arrangement for SNF. No nutrition needs identified at this time. Normal [facility] Comment on above: Result Comment: Elec tronically Signed By: Nichole MEYER, Shelia MACKEY\.br\Date and Time Signed: 02/20/23 09:13 EDT IntraOperative Documentson 04-22-2022 IntraOperative Documents [id number] TIFF Normal [facility] IntraOperative Documents [id number]#1.00 TIFF Normal [facility] Lyteson 02-20-2023 Anion gap [Moles/Vol] 8 mmol/L Normal 6-16 [facility] Comment on above: Performed By: #### 1 5567140, 22210887, 5517218, 3224310, 26290979 #### [facility] [address] [place] [address] Chloride [Moles/Vol] 109 mmol/L Normal 101-111 [facility] Comment on above: Performed By: #### 1 0689567, 45858836, 4674733, 6018387, 16644613 #### [facility] [address] [place] [address] CO2 [Moles/Vol] 34 mmol/L High 21-31 [facility] Comment on above: Performed By: #### 1 4094346, 46928654, 2173860, 8077165, 31372302 #### [facility] [address] [place] [address] Potassium [Moles/Vol] 4.0 mmol/L Normal 3.5-5.3 [facility] Comment on above: Performed By: #### 1 5249993, 53209341, 3637677, 7932104, 88691561 #### [facility] [address] [place] [address] Sodium [Moles/Vol] 147 mmol/L High 135-145 [facility] Comment on above: Performed By: #### 1 8494229, 96049317, 4365898, 8930545, 20176504 #### [facility] [address] [place] [address] Magnesiumon 02-20-2023 Magnesium [Mass/Vol] 1.9 mg/dL Normal 1.3-2.4 [facility] Comment on above: Performed By: #### 1 3231897, 46768558, 5464969, 5374706, 87682708 #### [facility] [address] [place] [address] Main OR Intraoperative Recor don 02-20-2023 Main OR Intraoperative Record IntraOp Document Type FT Summary Primary Physician: Stefan Israel MD Finalized Date/Time: 02/20/23 13:48:50 Pt. Name: THANH COLEMAN/Sex: 1935 Male Med Rec #: [id number] Physician: Lavell Siegel DO Financial #: [id number] Pt. Type: I Room/Bed: N305/01 Admit/Disch: 02/15/23 13:33:36 - Institution: Case Times FT Entry 1 Patient Times In Room 02/17/23 07:24:00 Out Room 02/17/23 07:50:00 Procedure Times Start 02/17/23 07:29:00 Stop 02/17/23 07:45:00 Anesthesia Times Start 02/17/23 07:24:00 Stop 02/17/23 07:50:00 Time at [place] 02/17/23 07:36:00 Last Modified By: Natalie Maki RN 02/17/23 07:50:20 General Comments: 02/18/23 Chart opened to review and send charges LRoth CSFA Case Attendance FT Entry 1 Entry 2 Entry 3 Case Attendee Lindy PILLAI, Stefan AYALA, Stefan Maki RN, Natalie Role Performed Surgeon - Primary Anesthesiologist Zigzag Elastic Attacher - Primary Director Of Leadership Development Time In 02/17/23 07:24:00 02/17/23 07:24:00 02/17/23 07:24:00 Time Out 02/17/23 07:50:00 02/17/23 07:50:00 02/17/23 07:50:00 Procedure COLONOSCOPY(.) COLONOSCOPY(.) COLONOSCOPY(.) Comments Dr. Kolb supervising Last Modified By: Glynn SPRAGUE, Natalie Maki RN, Natalie Ferrara RN 02/17/23 07:50:21 02/17/23 07:50:21 02/17/23 07:50:21 Entry 4 Case Attendee Nettie Wellington Role Performed Scrub - Primary Time In 02/17/23 07:24:00 Time Out 02/17/23 07:50:00 Procedure COLONOSCOPY(.) Comments Last Modified By: Natalie Maki RN 02/17/23 07:50:21 Perioperative Protocols FT Pre-Care Text: Implements protective measures prior to operative or invasive procedure, confirms identity before the operative or invasive procedure, verifies operative procedure, surgical site, and laterality Entry 1 Procedure(s) COLONOSCOPY(.) Patient Identity Birthday, ID Band Verified (select at Check, Patient least 2): Participation Consents / H and P Anesthesia Consent, Operative Site N/A Verified HandP, Surgery/Procedure Marking Verified Consent Surgical Site No Laterality Verified n/a Verified Procedure Verified Yes Correct Patient Yes Position Verified Availability Equipment, Medication Prep Dry n/a Verified (If Applicable) PreOp Antibiotic No Time Out Lindy PILLAI, Stefan Kendrick, Given Participants Stefan Blue Workman RNNatalie Miles, Kirstyn K Time Out Complete 02/17/23 07:28:00 Outcomes Met? Yes Last Modified By: Natalie Maki RN 02/17/23 07:31:50 Post-Care Text: The patient is free from signs and symptoms of injury caused by extraneous objects Allergy Information FT Pre-Care Text: Verifies allergies Entry 1 Allergies Reviewed? Yes Allergies Reviewed Self/Patient With Outcomes Met? Yes Last Modified By: Natalie Maki RN 02/17/23 07:31:56 Post-Care Text: The patient received appropriate medication(s) safely administered during the perioperative period Surgical Procedures FT Entry 1 Procedure Description Procedure COLONOSCOPY Modifiers . Surgeon Description Colonoscopy with tattooing of sigmoid colon polyp x 1 Primary Procedure Yes Primary Surgeon Stefan Israel MD 02/17/23 07:29:00 Stop 02/17/23 07:45:00 Anesthesia Type General Surgical Service General Wound Class 2 - Clean-Contaminated Last Modified By: Natalie Maki RN 02/20/23 13:46:11 General Case Data FT Pre-Care Text: Classifies surgical wound, implements aseptic technique, initiates traffic control Entry 1 Case Information OR ENDO 1 FT Case Level Level 2 Wound Class 2 - Clean-Contaminated Specialty General ASA Class 4 Preop Diagnosis Melena Postop Same As Preop No Postop Diagnosis Cecal polyp, cecal Outcomes Met? Yes lipoma, ascending colon polypsx2, descending colon polyps x9, rectal polyps x2, right sided and sigmoid colon diverticulosis, sigmoid colon polyps x3 Last Modified By: Natalie Maki RN 02/17/23 07:50:15 Post-Care Text: The patient is free from signs and symptoms of infection Skin Assessment (Pre Procedure) FT Pre-Care Text: Implements protective measures to prevent skin/ tissue injury due to thermal or mechanical sources Evaluates for signs and symptoms of physical injury to skin and tissue Entry 1 Skin Integrity Bruised, Cool, [place], Skin Abnormality No Intact Abnormality Location bilat. arms bruised Outcomes Met? Yes Last Modified By: Natalie Maki RN 02/17/23 07:32:47 Post-Care Text: The patient is free from signs and symptoms of injury caused by extraneous objects Patient Positioning FT Pre-Care Text: Identifies physical alterations that require additional precautions for procedure-specific positioning, verifies presence of prosthetics or corrective devices, positions the patient, evaluates the patient for signs and symptoms of injury as a result of positioning Entry 1 Procedure COLONOSCOPY(.) Body Position Lateral, right side up Feet Uncrossed? Yes Left Arm Position (more content not included)... Normal [facility] Message from Medicareon 11-0 Message from Medicare [id number] IFF Normal [facility] Monitor Recordon 02-20-2023 Monitor Record [id number]#1.00 TIFF Normal [facility] Monitor Record [id number] TIFF Normal [facility] Monitor Record [id number]#1.00 TIFF Normal [facility] Monitor Record [id number]#1.00 TIFF Normal [facility] Monitor Record [id number]#1.00 TIFF Normal [facility] Morphon 02-20-2023 Anisocytosis Ql (Bld) Present Normal [facility] Comment on above: Order Comment: Order Added by Discern Expert. Performed By: #### 1 6896571, 89306512, 5734511, 0226516, 32629025 #### [facility] [address] [place] [address] Hypochromia Auto Ql (Bld) Present Normal [facility] Comment on above: Order Comment: Order Added by Discern Expert. Performed By: #### 1 2648775, 76416256, 3773078, 4235665, 43124781 #### [facility] [address] [place] [address] Microcytes Ql (Bld) Present Normal [facility] Comment on above: Order Comment: Order Added by Discern Expert. Performed By: #### 1 3550705, 88859303, 1427689, 0874938, 91821958 #### [facility] [address] [place] [address] Morphology Jose (Bld) [Interp] See Morphology Normal [facility] Comment on above: Order Comment: Order Added by Discern Expert. Performed By: #### 1 9064485, 44325374, 9216584, 7653075, 91666879 #### [facility] [address] [place] [address] Ovalocytes LM Ql (Bld) Present Normal [facility] Comment on above: Order Comment: Order Added by Discern Expert. Performed By: #### 1 8808707, 58781326, 2763091, 3219732, 11558418 #### [facility] [address] [place] [address] Polychromasia LM Ql (Bld) Present Normal [facility] Comment on above: Order Comment: Order Added by Discern Expert. Performed By: #### 1 9120865, 42480145, 5807021, 7454024, 80406239 #### [facility] [address] [place] [address] Schistocytes LM Ql (Bld) Present Normal [facility] Comment on above: Order Comment: Order Added by Discern Expert. Performed By: #### 1 2098132, 60707173, 1874013, 0998073, 85550991 #### [facility] [address] [place] [address] Progress Note-Physicianon Progress Note-Physician Subjective Seen earlier voicing no complaints but he is confused Objective Vitals & Measurements T: 36.2 ?C(Axillary) TMIN: 36.2 ?C(Axillary) TMAX: 36.9 ?C(Oral) HR: 98(Monitored) RR: 21 BP: 120/71 SpO2: 92% WT: 94.3 kg Intake & Output This visit (24 hour periods starting at 07:00 EDT) 02/20/23 * 02/19/23 02/18/23 Total Summary Intake mL 10 730 1,502.69 Output mL -- 400 150 Fluid Balance 10 330 1,352.69 Intake (3) Oral Intake mL -- 710 770 Sodium Chloride 0.9% intravenous solution 1,000 mL mL -- -- 712.69 pantoprazole mL 10 20 20 Total 10 730 1,502.69 Output (1) Urine Voided mL -- 400 150 Total -- 400 150 Counts (1) Urine Count -- 4 -- * This column has not completed the indicated time period. Physical Exam Constitutional: Awake and alert; oriented to person currently but not place or event with no apparent distress or respiratory distress appearing stated age Head/neck: Neck supple with no palpable lymphadenopathy, bruits or masses; trachea midline Chest/lungs: Initial but clear with no wheezes or rhonchi bilaterally Cardiovascular: Regular rate and rhythm; normal S1 and S2 with no murmur; no pitting edema and 1+ pulses bilaterally Gastrointestinal: Soft, nontender, nondistended, positive bowel sounds Neurological: Nonfocal; cranial nerves II through XII appear intact Psychological: Pleasantly confused Lab Results WBC: 5.8 E9/L (02/20/23 06:16:00) RBC: 3.6 E12/L Low (02/20/23 06:16:00) HGB: 8.3 gm/dL Low (02/20/23 06:16:00) Hct: 27.1 % Low (02/20/23 06:16:00) MCV: 76.4 fL Low (02/20/23 06:16:00) MCH: 23.2 pg Low (02/20/23 06:16:00) MCHC: 30.4 gm/dL Low (02/20/23 06:16:00) RDW: 24.4 % High (02/20/23 06:16:00) Platelet: 153 E9/L (02/20/23 06:16:00) MPV: 8.9 fL (02/20/23 06:16:00) Neutro Auto: 67.8 % (02/20/23 06:16:00) Lymph Auto: 15 % (02/20/23 06:16:00) [place] Auto: 12.5 % (02/20/23 06:16:00) Eos Auto: 3.7 % (02/20/23 06:16:00) Basophil Auto: 1 % (02/20/23 06:16:00) Neutro Absolute: 3.9 E9/L (02/20/23 06:16:00) Lymph Absolute: 0.9 E9/L Low (02/20/23 06:16:00) [place] Absolute: 0.7 E9/L (02/20/23 06:16:00) Eos Absolute: 0.2 E9/L (02/20/23 06:16:00) Basophil Absolute: 0.1 E9/L (02/20/23 06:16:00) RBC Morph: See Morphology (02/20/23:16:00) Anisocytosis: Present (02/20/23 06:16:00) Microcyte: Present (02/20/23 06:16:00) Hypochromasia: Present (02/20/23:16:00) Polychromasia: Present (02/20/23:16:00) Schistocytes: Present (02/20/23:16:00) Ovalocytes: Present (02/20/23 06:16:00) Glucose Lvl: 97 mg/dL (02/20/23 06:16:00) BUN: 21 mg/dL (02/20/23 06:16:00) Creatinine: 1.3 mg/dL (02/20/23 06:16:00) eGFR: 53 mL/min/1.73 m2 Low (02/20/23 06:16:00) BUN/Creat Ratio: 16 (02/20/23 06:16:00) Sodium Lvl: 145 mmol/L (02/20/23 06:16:00) Potassium Lvl: 4.4 mmol/L (02/20/23 06:16:00) Chloride: 114 mmol/L High (02/20/23 06:16:00) CO2: 31 mmol/L (02/20/23 06:16:00) AGAP: 4 mEq/L Low (02/20/23 06:16:00) Calcium Lvl: 8.7 mg/dL Low (02/20/23 06:16:00) Alk Phos: 57 Int._Unit/L (02/20/23 06:16:00) ALT: 48 Int._Unit/L High (02/20/23 06:16:00) AST: 21 Int._Unit/L (02/20/23 06:16:00) Total Protein: 6.4 gm/dL (02/20/23 06:16:00) Albumin Lvl: 3.2 gm/dL Low (02/20/23 06:16:00) Globulin: 3.2 gm/dL (02/20/23 06:16:00) A/G Ratio: 1 Low (02/20/23 06:16:00) Bili Total: 0.9 mg/dL (02/20/23 06:16:00) UA Spec Desc: Clean Catch (02/19/23 20:23:00) UA Color: Yellow2 (02/19/23 20:23:00) UA Clarity: SL CLOUDY (02/19/23 20:23:00) UA Spec Grav: 1.025 (02/19/23 20:23:00) UA pH: 6.5 (02/19/23 20:23:00) UA Protein: 1+ Abnormal (02/19/23 20:23:00) UA Glucose: NEGATIVE1 (02/19/23 20:23:00) UA Ketones: NEGATIVE1 (02/19/23 20:23:00) UA Bili: NEGATIVE1 (02/19/23 20:23:00) UA Blood: NEGATIVE1 (02/19/23 20:23:00) UA Nitrite: Positive1 Abnormal (02/19/23 20:23:00) UA Urobilinogen: 0.2 (02/19/23 20:23:00) UA Leuk Est: NEGATIVE1 (02/19/23 20:23:00) UA RBC: 0-3 (02/19/23 20:23:00) UA Squam Epithelial: 0-2 (02/19/23 20:23:00) UA WBC: 0-5 (02/19/23 20:23:00) UA Bacteria: 1+ Abnormal (02/19/23 20:23:00) UA Hyal Cast: 0-3 (02/19/23 20:23:00) Assessment/Plan 87-year-old male admitted for acute blood loss anemia secondary to GI bleed -EGD showed normal esophagus and stomach with normal duodenum and examined jejunum; colonoscopy on the showed no obvious source of lower GI bleed; there were 17 polyps noted but no polypectomy was performed as polypectomy would lead to potential bleeding and confound clinical picture. He has developed some confusion over the last day or so which may be owning. Work-up thus far is unremarkable including urinalysis and CBC and CMP this morning. His comorbidities include tobacco use, hypertension, hyperlipidemia, CAD status post stent placement, history of CVA, carotid artery stenosis, PAF status post pacemaker placement on Eliquis and obesity. 1. Acute blood loss a (more content not included)... Normal [facility] Comment on above: Result Comment: Elec tronically Signed By: Sourav Canales DO\.johana\Date and Time Signed: 02/20/23 15:08 EDT eGFRon 02-20-2023 GFR/1.73 sq M.predicted among non-blacks MDRD (S/P/Bld) [Vol rate/Area] 53 mL/min/1.73 m2 Low >=59 [facility] Comment on above: Order Comment: Order Added by Discern Expert. Result Comment: Prosthodontist/Educator jees kidney disease could be indicated at eGFR's of less than 60 mL/min/1.73m2. Kidney failure is indicated at less than 15 mL/min/1.73m2. Performed By: #### 1 [id number], [id number], 4338467, 8067760, [id number] #### [facility] [address] [place] [address] BMPon 02-19-2023 Anion gap [Moles/Vol] 5 mmol/L Low 6-16 [facility] Comment on above: Performed By: #### 1 [id number], 08013654, 6071222, 5535805, [id number] #### [facility] [address] [place] [address] Calcium [Mass/Vol] 8.2 mg/dL Low 8.9-11.1 [facility] Comment on above: Performed By: #### 1 [id number], 58073433, 9523636, 0763549, [id number] #### [facility] [address] [place] [address] Chloride [Moles/Vol] 110 mmol/L Normal 101-111 [facility] Comment on above: Performed By: #### 1 [id number], 15102954, 1615100, 9316602, 41392021 #### [facility] [address] [place] [address] CO2 [Moles/Vol] 31 mmol/L Normal 21-31 [facility] Comment on above: Performed By: #### 1 3966245, 48200727, 5374695, 5191259, 83971694 #### [facility] [address] [place] [address] Creatinine [Mass/Vol] 1.4 mg/dL High 0.5-1.3 [facility] Comment on above: Performed By: #### 1 3848044, 20128137, 9682509, 1591108, 92738970 #### [facility] [address] [place] [address] Glucose [Mass/Vol] 107 mg/dL Normal 55-199 [facility] Comment on above: Result Comment: If t his glucose result represents a fasting glucose, interpretation should refer to the following reference range: 55-99 mg/dL Performed By: #### 1 [id number], 64678784, 0196492, 4639387, 72368425 #### [facility] [address] [place] [address] Potassium [Moles/Vol] 4.3 mmol/L Normal 3.5-5.3 [facility] Comment on above: Performed By: #### 1 8113235, 81476090, 0495712, 8802334, 18342315 #### [facility] [address] [place] [address] Sodium [Moles/Vol] 142 mmol/L Normal 135-145 [facility] Comment on above: Performed By: #### 1 4977239, 67712326, 1523362, 1658462, 00001120 #### [facility] [address] [place] [address] Urea nitrogen [Mass/Vol] 17 mg/dL Normal 5-21 [facility] Comment on above: Performed By: #### 1 1718194, 73917695, 2789081, 4300491, 08950623 #### [facility] [address] [place] [address] Urea nitrogen/Creatinine [Mass ratio] 12 No Units Normal 10- [facility] Comment on above: Performed By: #### 1 4948538, 86909435, 8489939, 2097655, 41739116 #### [facility] [address] [place] [address] Consenton 02-19-2023 Consent [id number]#[id number] TIFF Normal [facility] Hct & Hgbon 02-19-2023 Hematocrit (Bld) [Volume fraction] 26.3 % Low 37.7-49.0 [facility] Comment on above: Performed By: #### 1 3321560, 68997100, 9505637, 4588472, 46839162 #### [facility] [address] [place] [address] Hemoglobin (Bld) [Mass/Vol] 8.1 g/dL Low 13.5-17.5 [facility] Comment on above: Performed By: #### 1 0405252, 98781474, 4411322, 5508760, 70438597 #### [facility] [address] [place] [address] Interdisciplinary Note - Ron e Manageron 02-19-2023 Interdisciplinary Note - [employer] Equipment Technician CRM to room to discuss DC Planning. Patient is awake , alert and oriented. Patient daughter is in room. They [facility] or [facility] to transport if they can at DC. Patient is from there [place]. Patient verified PCP, home DME and insurance. Patient is here as inpatient, medicare form reviewed. Patient is here for Anemia, Black Stool. Patient had elevated troponin on admission. Patient is assigned to Dr Canales, see notes. Patient has Cardiology and GI consults on case. Patient on 02/16 had EGD. On 02/17 Colonoscopy. Patient has had blood transfusion this stay. PT/ OT recs HH and patient denied. Patient would like a FWW and Toilet Riser. This was ordered 02/17. Awaiting delivery of FWW to room. . Patient was provided CRM contact, white board updated. Anticipated DC 02/19. CRM following Patient will need a desaturation Patient with increased weakness today, now with SNF recommendation Referral to [facility] which is next door to [facility] Comment on above: Result Comment: Elec tronically Signed By: Natalya Rivas\.br\Date and Time Signed: 02/19/23 13:07 EDT Monitor Recordon 02-19-2023 Monitor Record [id number]#1.00 TIFF [facility] Progress Note-Physicianon Progress Note-Physician Subjective Seen earlier this morning for similar complaints Later in the day he was weak per nursing so had PT reevaluated him Review of Systems Constitutional: no fever, no chills, no sweats, no weakness Respiratory: no shortness of breath, no cough, no orthopnea, no wheezing Cardiovascular: no chest pain, no palpitations, no edema Additional ROS info: Except as noted in the above Review of Systems and in the History of Present Illness all other systems have been reviewed and are negative or noncontributory. Objective Vitals & Measurements T: 37.4 ?C(Axillary) TMIN: 36.9 ?C(Axillary) TMAX: 37.8 ?C(Axillary) HR: 74(Monitored) RR: 18 BP: 161/72 SpO2: 92% WT: 93 kg Intake & Output This visit (24 hour periods starting at 07:00 EDT) 02/19/23 * 02/18/23 02/17/23 Total Summary Intake mL 10 1,502.69 791 Output mL -- 150 200 Fluid Balance 10 1,352.69 591 Intake (6) Oral Intake mL -- 770 550 Sodium Chloride 0.9% mL -- -- 200 Sodium Chloride 0.9% intravenous solution 1,000 mL mL -- 712.69 -- lidocaine mL -- -- 3 pantoprazole mL 10 20 20 propofol mL -- -- 18 Total 10 1,502.69 791 Output (1) Urine Voided mL -- 150 200 Total -- 150 200 Counts (1) Urine Count -- -- 4 * This column has not completed the indicated time period. Physical Exam Constitutional: Awake and alert; oriented x3 with no apparent distress or respiratory distress appearing stated age Head/neck: Neck supple with no palpable lymphadenopathy, bruits or masses; trachea midline Chest/lungs: Initial but clear with no wheezes or rhonchi bilaterally Cardiovascular: Regular rate and rhythm; normal S1 and S2 with no murmur; no pitting edema and 1+ pulses bilaterally Gastrointestinal: Soft, nontender, nondistended, positive bowel sounds Neurological: Nonfocal; cranial nerves II through XII appear intact Psychological: Pleasant affect Lab Results HGB: 8.1 gm/dL Low (02/19/23 05:51:00) Hct: 26.3 % Low (02/19/23 05:51:00) Glucose Lvl: 107 mg/dL (02/19/23 05:51:00) BUN: 17 mg/dL (02/19/23 05:51:00) Creatinine: 1.4 mg/dL High (02/19/23 05:51:00) eGFR: 49 mL/min/1.73 m2 Low (02/19/23 05:51:00) BUN/Creat Ratio: 12 (02/19/23 05:51:00) Sodium Lvl: 142 mmol/L (02/19/23 05:51:00) Potassium Lvl: 4.3 mmol/L (02/19/23 05:51:00) Chloride: 110 mmol/L (02/19/23 05:51:00) CO2: 31 mmol/L (02/19/23 05:51:00) AGAP: 5 mEq/L Low (02/19/23 05:51:00) Calcium Lvl: 8.2 mg/dL Low (02/19/23 05:51:00) Glucose Cap: 120 mg/dL High (02/18/23 18:16:00) POC Device SN: [id number] (02/18/23 18:16:00) POC User ID: [id number] (02/18/23 18:16:00) POC Username: POC Username (02/18/23 18:16:00) Assessment/Plan 87-year-old male admitted for acute blood loss anemia secondary to GI bleed -EGD showed normal esophagus and stomach with normal duodenum and examined jejunum; colonoscopy yesterday the showed no obvious source of lower GI bleed; there were 17 polyps noted but no polypectomy was performed as polypectomy would lead to potential bleeding and confound clinical picture. His comorbidities include tobacco use, hypertension, hyperlipidemia, CAD status post stent placement, history of CVA, carotid artery stenosis, PAF status post pacemaker placement on Eliquis and obesity. 1. Acute blood loss anemia (D62: Acute posthemorrhagic anemia) H&H stable today at 8.1 and 26.3 and no further signs of bleeding He did get a liter normal saline overnight mainly for his acute kidney injury (see #3 below) Continue holding Eliquis and aspirin Continue PPI Protonix 40 mg IV push twice daily Ordered: [facility] Care/Day Moderate 35 Minutes 98618 2. GI bleed (K92.2: Gastrointestinal hemorrhage, unspecified) H&H stable Ordered: [facility] Care/Day Moderate 35 Minutes 90426 3. SUMMER (acute kidney injury) (N17.9: Acute kidney failure, unspecified) Serum creatinine better at 1.4 Ordered: [facility] Care/Day Moderate 35 Minutes 90462 4. Elevated troponin (R79.89: Other specified abnormal findings of blood chemistry) Stable Ordered: [facility] Care/Day Moderate 35 Minutes 04403 5. Dyspnea (R06.00: Dyspnea, unspecified) Satting in the 90 to 93% range on 3 L Ordered: [facility] Care/Day Moderate 35 Minutes 94521 6. Generalized weakness (R53.1: Weakness) Continue PT Ordered: [facility] Care/Day Moderate 35 Minutes 37179 7. Atelectasis of both lungs (J98.11: Atelectasis) ICS at the bedside Ordered: [facility] Care/Day Moderate 35 Minutes 38812 8. Carotid stenosis, bilateral (I65.23: Occlusion and stenosis of bilateral carotid arteries) Chronic; continue holding aspirin and Eliquis due to the GI blood loss anemia nicotine replacement therapy Ordered: [facility] Care/Day Moderate 35 Minutes 12599 9. Smoker (F17.200: Nicotine dependence, unspecified, uncomplicated) Ordered: [facility] Care/Day Moderate 35 Min (more content not included)... Normal [facility] Comment on above: Result Comment: Elec tronically Signed By: Sourav Canales DO\Date and Time Signed: 02/19/23 13:58 EDT UA With Cult Reflexon 2022 Bacteria LM Ql (Urine sed) 1+ /HPF Abnormal Trace [facility] Comment on above: Performed By: #### 2 463982, [id number] #### [facility] [address] [place] [address] Bilirubin Ql (U) Negative Normal Negative [facility] Comment on above: Performed By: #### 2 103509, [id number] #### [facility] [address] [place] [address] Clarity (U) SL CLOUDY Invalid Interpretation Code [facility] Comment on above: Performed By: #### 2 048257, [id number] #### [facility] [address] [place] [address] Color (U) YELLOW Normal Yellow [facility] Comment on above: Performed By: #### 2 434013, [id number] #### [facility] [address] [place] [address] Epithelial cells.squamous LM.HPF (Urine sed) [#/Area] 0-2 Normal 0-2 [facility] Comment on above: Performed By: #### 2 546496, [id number] #### [facility] [address] [place] [address] Glucose Test strip (U) [Mass/Vol] Negative Normal Negative [facility] Comment on above: Performed By: #### 2 782428, 74195229 #### [facility] [address] [place] [address] Hemoglobin Ql (U) Negative Normal Negative [facility] Comment on above: Performed By: #### 2 167509, [id number] #### [facility] [address] [place] [address] Ketones (U) [Mass/Vol] Negative Normal Negative [facility] Comment on above: Performed By: #### 2 889020, [id number] #### [facility] [address] [place] [address] Duson.plasma/Lith ium.RBC (Bld) [Mass ratio] 0-3 Normal 0-3 [facility] Comment on above: Performed By: #### 2 384864, 36239849 #### [facility] [address] [place] [address] Nitrite Ql (U) Positive Abnormal Negative [facility] Comment on above: Performed By: #### 2 977934, [id number] #### [facility] [address] [place] [address] pH (U) 6.5 [pH] Invalid Interpretation Code 5.0-9.0 [facility] Comment on above: Performed By: #### 2 891066, [id number] #### [facility] [address] [place] [address] Protein (U) [Mass/Vol] 1+ Abnormal Negative [facility] Comment on above: Performed By: #### 2 221764, 52578886 #### [facility] [address] [place] [address] Specific gravity (U) [Rel density] 1.025 Invalid Interpretation Code 1.005-1.030 [facility] Comment on above: Performed By: #### 2 627846, [id number] #### [facility] [address] [place] [address] Type of Urine collection method Clean Catch Normal [facility] Comment on above: Performed By: #### 2 145418, [id number] #### [facility] [address] [place], [place] [address] Urobilinogen Qn (U) 0.2 {Kenroy'U}/dL Normal 0.0-1.0 [facility] Comment on above: Performed By: #### 2 699412, [id number] #### [facility] [address] [place], [place] [address] WBC Auto Ql (U) Negative Normal Negative [facility] Comment on above: Performed By: #### 2 972432, 38066807 #### [facility] [address] [place], [place] [address] WBC casts LM.LPF (Urine sed) [#/Area] 0-3 Normal [facility] Comment on above: Performed By: #### 2 778119, 39064550 #### [facility] [address] [place] [address] WBC LM.HPF (Urine sed) [#/Area] 0-5 Normal 0-5 [facility] Comment on above: Performed By: #### 2 662790, 71371054 #### [facility] [address] [place] [address] eGFRon 02-19-2023 GFR/1.73 sq M.predicted among non-blacks MDRD (S/P/Bld) [Vol rate/Area] 49 mL/min/1.73 m2 Low >=59 [facility] Comment on above: Order Comment: Order added by Discern Expert. Result Comment: Prosthodontist/Educator jese kidney disease could be indicated at eGFR's of less than 60 mL/min/1.73m2. Kidney failure is indicated at less than 15 mL/min/1.73m2. Performed By: #### 1 [id number], 70951386, 9986178, 1560945, 15563414 #### [facility] [address] [place] [address] BMPon 02-18-2023 Anion gap [Moles/Vol] 5 mmol/L Low 6-16 [facility] Comment on above: Performed By: #### 2 [id number] #### [facility] [address] [place] [address] Calcium [Mass/Vol] 8.1 mg/dL Low 8.9-11.1 [facility] Comment on above: Performed By: #### 2 [id number] #### [facility] [address] [place] [address] Chloride [Moles/Vol] 114 mmol/L High 101-111 [facility] Comment on above: Performed By: #### 2 [id number] #### [facility] [address] [place] [address] CO2 [Moles/Vol] 28 mmol/L Normal 21-31 [facility] Comment on above: Performed By: #### 2 [id number] #### [facility] [address] [place] [address] Creatinine [Mass/Vol] 1.7 mg/dL High 0.5-1.3 [facility] Comment on above: Performed By: #### 2 [id number] #### [facility] [address] [place] [address] Glucose [Mass/Vol] 98 mg/dL Normal 55-199 [facility] Comment on above: Result Comment: If t his glucose result represents a fasting glucose, interpretation should refer to the following reference range: 55-99 mg/dL Performed By: #### 2 [id number] #### [facility] [address] [place] [address] Potassium [Moles/Vol] 4.0 mmol/L Normal 3.5-5.3 [facility] Comment on above: Performed By: #### 2 [id number] #### [facility] [address] [place] [address] Sodium [Moles/Vol] 143 mmol/L Normal 135-145 [facility] Comment on above: Performed By: #### 2 35846975 #### [facility] [address] [place] [address] Urea nitrogen [Mass/Vol] 23 mg/dL High 5-21 [facility] Comment on above: Performed By: #### 2 [id number] #### [facility] [address] [place] [address] Urea nitrogen/Creatinine [Mass ratio] 14 No Units Normal 10-20 [facility] Comment on above: Performed By: #### 2 [id number] #### [facility] [address] [place] [address] CBC w/Indiceson 02-18-2023 Erythrocyte distribution width (RBC) [Ratio] 24.3 % High 10.9-14.2 [facility] Comment on above: Performed By: #### 1 3089282, 25718411, 0173330, 6246936, 47294786 #### [facility] [address] [place] [address] Hematocrit (Bld) [Volume fraction] 25.6 % Low 37.7-49.0 [facility] Comment on above: Performed By: #### 1 4519596, 42559744, 1387275, 9275227, 62491886 #### [facility] [address] [place] [address] Hemoglobin (Bld) [Mass/Vol] 7.9 g/dL Low 13.5-17.5 [facility] Comment on above: Performed By: #### 1 6732060, 85838046, 7016254, 0886119, 90838398 #### [facility] [address] [place] [address] MCH (RBC) [Entitic mass] 23.4 pg Low 27.0-34.0 [facility] Comment on above: Performed By: #### 1 3745191, 64645757, 1863521, 1932079, 98996195 #### [facility] [address] [place] [address] MCHC (RBC) [Mass/Vol] 31.0 g/dL Low 31.4-36.0 [facility] Comment on above: Performed By: #### 1 3105069, 47952036, 4287111, 7495830, 95744459 #### [facility] [address] [place] [address] MCV (RBC) [Entitic vol] 75.7 fL Low 80.0-100.0 [facility] Comment on above: Performed By: #### 1 9978761, 12173420, 0028489, 3618149, 11308651 #### [facility] [address] [place] [address] Platelet mean volume (Bld) [Entitic vol] 9.2 fL Normal 6.4-10.8 [facility] Comment on above: Performed By: #### 1 8317648, 86567809, 8855804, 7443348, 17480394 #### [facility] [address] [place] [address] Platelets (Bld) [#/Vol] 184.0 E9/L Normal 150.0-500.0 [facility] Comment on above: Performed By: #### 1 5033550, 50871302, 9931571, 1378268, 06609712 #### [facility] [address] [place] [address] RBC (Bld) [#/Vol] 3.4 E12/L Low 4.3-5.9 [facility] [facility] Comment on above: Performed By: #### 1 [id number], [id number], [id number], [id number], [id number] #### [facility] [address] [place] [address] WBC corrected for nucl RBC Auto (Bld) [#/Vol] 6.6 E9/L Normal 4.0-11.0 [facility] Comment on above: Performed By: #### 1 [id number], [id number], [id number], [id number], [id number] #### [facility] [address] [place] [address] Capillary Glucose POCon 01-21 Glucose [Mass/Vol] 120 mg/dL High 55-99 [facility] Comment on above: Result Comment: Emmanuelle saldivar RN/ Performed By: #### 2 [id number] #### [facility] [address] [place] [address] Insurance Correspondence Off iceon 02-18-2023 Insurance Correspondence Office [id number]#[id number] TIFF Normal [facility] Interdisciplinary Note - Ron e Manageron 02-18-2023 Interdisciplinary Note - Submarine Cable Equipment Technician Pt is awake in bed, previously rounded with Dr. Canales. Pt is aware of plan to stay in hospital, possible transfer to tertiary facility due to continued GI bleeding. Pt is from [facility] and plan to return at [place]. PT/OT= HH, pt states he does not need, has enough assistance at assisted living. Pt is on 3L oxygen, does not have home oxygen . PCP verified and insurance information reviewed and DME discussed. Contact information provided and white board updated. Normal [facility] Comment on above: Result Comment: Elec tronically Signed By: Sarah SPRAGUE, Jojo\.johana\Date and Time Signed: 02/18/23 10:36 EDT Main OR Intraoperative Recor beto 02-18-2023 Main OR Intraoperative Record IntraOp Document Type FT Summary Primary Physician: Pio PILLAI, Bela Cano Finalized Date/Time: 02/18/23 12:27:24 Pt. Name: THANH COLEMAN /Sex: 1935 Male Med Rec #: [id number] Physician: Lavell Siegel DO Financial #: [id number] Pt. Type: I Room/Bed: [place] [address] Admit/Disch: 02/15/23 13:33:36 - Institution: Case Times FT Entry 1 Patient Times In Room 02/16/23 11:13:00 Out Room 02/16/23 11:32:00 Procedure Times Start 02/16/23 11:19:00 Stop 02/16/23 11:30:00 Anesthesia Times Start 02/16/23 11:13:00 Stop 02/16/23 11:32:00 Last Modified By: Cruzito Schaeffer RN 02/16/23 11:38:12 General Comments: 02/18/23 Chart opened to review and send charges [facility]oth CSFA Case Attendance FT Entry 1 Entry 2 Entry 3 Case Attendee Pio PILLAI, Bela Schaeffer RN, Boom Tran Jr, DO Role Performed Surgeon - Primary Zigzag Elastic Attacher - Primary Anesthesiologist of Record Time In 02/16/23 11:13:00 02/16/23 11:13:00 02/16/23 11:13:00 Time Out 02/16/23 11:32:00 02/16/23 11:32:00 02/16/23 11:32:00 Procedure PUSH ENTEROSCOPY PUSH ENTEROSCOPY PUSH ENTEROSCOPY Comments Last Modified By: Laury SPRAGUE, Cruzito Schaeffer RN, Cruzito Chavis RN 02/16/23 11:38:12 02/16/23 11:38:12 02/16/23 11:38:12 Entry 4 Case Attendee John Rahman Role Performed Scrub - Primary Time In 02/16/23 11:13:00 Time Out 02/16/23 11:32:00 Procedure PUSH ENTEROSCOPY Comments Last Modified By: Cruzito Schaeffer RN 02/16/23 11:38:12 Perioperative Protocols FT Pre-Care Text: Implements protective measures prior to operative or invasive procedure, confirms identity before the operative or invasive procedure, verifies operative procedure, surgical site, and laterality Entry 1 Procedure(s) PUSH ENTEROSCOPY Patient Identity Birthday, ID Band Verified (select at Check, Patient least 2): Participation Consents / H and P Anesthesia Consent, Operative Site N/A Verified HandP, Surgery/Procedure Marking Verified Consent Surgical Site No Laterality Verified n/a Verified Procedure Verified Yes Correct Patient Yes Position Verified Availability Equipment, Medication Prep Dry n/a Verified (If Applicable) PreOp Antibiotic No Time Out Bela Suero MD Given Participants Laury Cano RN, Morgan E, Marsh Jr DO, Josiah Mckeon Micala E Time Out Complete 02/16/23 11:14:00 Outcomes Met? Yes Last Modified By: Cruzito Schaeffer RN 02/16/23 11:30:40 Post-Care Text: The patient is free from signs and symptoms of injury caused by extraneous objects Allergy Information FT Pre-Care Text: Verifies allergies Entry 1 Allergies Reviewed? Yes Allergies Reviewed Self/Patient With Outcomes Met? Yes Last Modified By: Cruzito Schaeffer RN 02/16/23 11:16:58 Post-Care Text: The patient received appropriate medication(s) safely administered during the perioperative period Surgical Procedures FT Entry 1 Procedure Description Procedure PUSH ENTEROSCOPY Surgeon Description Push enteroscopy Primary Procedure Yes Primary Surgeon Bela Suero MD Start 02/16/23 11:19:00 Stop 02/16/23 11:30:00 Anesthesia Type General Surgical Service Gastroenterology Wound Class 2 - Clean-Contaminated Last Modified By: Cruzito Schaeffer RN 02/16/23 11:30:52 General Case Data FT Pre-Care Text: Classifies surgical wound, implements aseptic technique, initiates traffic control Entry 1 Case Information OR ENDO 1 FT Case Level Level 2 Wound Class 2 - Clean-Contaminated Specialty Gastroenterology ASA Class 3E Preop Diagnosis Melena Postop Same As Preop No Postop Diagnosis Hiatal hernia, Schatzki Outcomes Met? Yes ring Last Modified By: Cruzito Schaeffer RN 02/16/23 11:30:02 Post-Care Text: The patient is free from signs and symptoms of infection Skin Assessment (Pre Procedure) FT Pre-Care Text: Implements protective measures to prevent skin/ tissue injury due to thermal or mechanical sources Evaluates for signs and symptoms of physical injury to skin and tissue Entry 1 Skin Integrity Dry, Warm Skin Abnormality No Outcomes Met? Yes Last Modified By: Cruzito Schaeffer RN 02/16/23 11:17:41 Post-Care Text: The patient is free from signs and symptoms of injury caused by extraneous objects Patient Positioning FT Pre-Care Text: Identifies physical alterations that require additional precautions for procedure-specific positioning, verifies presence of prosthetics or corrective devices, positions the patient, evaluates the patient for signs and symptoms of injury as a result of positioning Entry 1 Procedure PUSH ENTEROSCOPY Body Position Lateral, right side up Feet Uncrossed? Yes Left Arm Position Resting at Side Right Arm Position Resting at Side Left Leg Position Extended Right Leg Position Extended Positioning Device Safety Strap, Pillow Under Head Large Press Points Checked Yes By Cruzito Schaeffer RN Outcomes Met? Y (more content not included)... Normal [facility] Monitor Recordon 02-18-2023 Monitor Record [id number]#1.00 TIFF Normal [facility] Monitor Record [id number]#1.00 TIFF Normal [facility] Monitor Record [id number]#1.00 TIFF Normal [facility] Morphon 02-18-2023 Anisocytosis Ql (Bld) Present Normal [facility] Comment on above: Order Comment: Order Added by Discern Expert. Performed By: #### 1 [id number], [id number], [id number], [id number], [id number] #### [facility] [address] [place] [address] Hypochromia Auto Ql (Bld) Present Normal [facility] Comment on above: Order Comment: Order Added by Discern Expert. Performed By: #### 1 [id number], [id number], [id number], [id number], [id number] #### [facility] [address] [place] [address] Microcytes Ql (Bld) Present Normal [facility] Comment on above: Order Comment: Order Added by Discern Expert. Performed By: #### 1 [id number], [id number], 4923553, 8326274, [id number] #### [facility] [address] [place] [address] Morphology Jose (Bld) [Interp] See Morphology Normal [facility] Comment on above: Order Comment: Order Added by Cam Expert. Performed By: #### 1 [id number], [id number], 3505017, 5943452, [id number] #### [facility] [address] [place] [address] Ovalocytes LM Ql (Bld) Present Normal [facility] Comment on above: Order Comment: Order Added by Discern Expert. Performed By: #### 1 [id number], [id number], 8395273, 3664177, [id number] #### [facility] [address] [place] [address] Polychromasia LM Ql (Bld) Present Normal [facility] Comment on above: Order Comment: Order Added by Discern Expert. Performed By: #### 1 [id number], [id number], 4731641, 4333850, [id number] #### [facility] [address] [place] [address] Outside Cardiovascularon Outside Cardiovascular [id number]#[id number] IFF Normal [facility] Progress Note-Nurseon 2022 Progress Note-Nurse This nurse spoke wit h patient's daughter, Michelle, and updated here about the patient's status. This nurse informed Michelle that patient was having confusion and as per her patient is taking a medication for patient's dementia. This nurse asked her then for consent to view and import patient's external Rx history and she consented. This nurse updated the medication history of the patient and Dr. Canales informed. [facility] Progress Note-Physicianon Progress Note-Physician Patient: THANH COLEMAN Age: 87 years Sex: Male : 1935 Associated Diagnoses: None Author: Bomo Kolb Jr, DO Preoperative Information Anesthesia Preop Info: Time patient last ate or drank 02/17/2023 00:00:00. Anesthesia history: Patient history: None. Family history+: None. Informed consent: Signed by patient. Re-evaluation prior to induction: Initial evaluation reviewed: No significant change. Review of Systems Eye: Negative except as documented in history of present illness. Ear/Nose/Mouth/Throat: Negative except as documented in history of present illness. Respiratory: Negative except as documented in history of present illness. Cardiovascular: Negative except as documented in history of present illness. Musculoskeletal: Negative except as documented in history of present illness. Neurologic: Negative except as documented in history of present illness. Health Status Allergies: Allergic Reactions (Selected) No Known Medication Allergies Problem list: All Problems At risk for falls / SNOMED CT 679034482 / Possible Problem added when Risk for Falls Careplan was initiated. Carotid stenosis, bilateral / SNOMED CT 0205890725 / Confirmed Smoker / SNOMED CT 894916870 / Confirmed Added secondary to documentation in Social History. Histories Procedure history: EGD - esophagogastroduodenosc opy (4176624237) on 02/16/2023 at 87 Years. Cardiac pacemaker (00887048). Social History Social & Psychosocial Habits Alcohol 02/15/2023 Risk Assessment: Denies Alcohol Use Substance Abuse 02/15/2023 Risk Assessment: Denies Substance Abuse Tobacco 02/15/2023 Tobacco Use: 10 or more cigarettes (1/ Smokeless tobacco use: Never Type: Cigarettes Ready to change: No Concerns about tobacco use in household: No Smoking Cessation Yes 02/15/2023 Risk Assessment: High Risk . Physical Examination Airway: Mallampati classification: II (soft palate, fauces, uvula visible). Respiratory: adequate air exchange. Cardiovascular: Regular rhythm. Plan [place] [employer]esthesiologists (ASA) physical status classification: Class III, E. Anesthetic Preoperative Plan: Anesthesia General. [facility] Comment on above: Result Comment: Elec tronically Signed By: Boom Kolb Jr, DO\.br\Date and Time Signed: 02/18/23 16:29 EDT Progress Note-Physician Patient: THANH COLEMAN Age: 87 years Sex: Male : 1935 Associated Diagnoses: None Author: Boom Kolb Jr, DO Postoperative Information Postoperative disposition: Postoperative disposition: To PACU. Optimetrix number: Optimetrix number [id number]. Anesthetic utilized: General. Health Status Allergies: Allergic Reactions (Selected) No Known Medication Allergies Physical Examination Vital Signs 02/17/2023 9:18 EDT Hourly Rounding Yes Promise to Return Yes 02/17/2023 8:55 EDT Temperature Oral 36.7 DegC Heart Rate Monitored 89 bpm Respiratory Rate 21 br/min HI Systolic Blood Pressure 152 mmHg HI Diastolic Blood Pressure 80 mmHg Blood Pressure Location Left arm Mean Arterial Pressure, Cuff 104 mmHg Hourly Rounding Yes Pain Assessment: Controlled. General: Awake, Alert, Appropriate. Respiratory: Adequate air exchange. Cardiovascular: Stable, Normal peripheral perfusion. Neurological: Normal sensory function, Normal motor function. Assessment Anesthetic outcome No anesthetic complications noted. Adequate pain relief. able to void without difficulty, able to ambulate with assist, tolerating PO intake, no N/V. Review / Management Condition: Stable. Plan Transfer/Discharge: Transfer/Discharge Discharge when meets criteria ( To home ). [facility] Comment on above: Result Comment: Elec tronically Signed By: Boom Kolb Jr, DO\.br\Date and Time Signed: 02/18/23 16:29 EDT Progress Note-Physician Subjective Seen earlier this AM - no complaints Review of Systems Constitutional: no fever, no chills, no sweats, no weakness Respiratory: no shortness of breath, no cough, no orthopnea, no wheezing Cardiovascular: no chest pain, no palpitations, no edema Additional ROS info: Except as noted in the above Review of Systems and in the History of Present Illness all other systems have been reviewed and are negative or noncontributory. Objective Vitals & Measurements T: 37.3 ?C(Axillary) TMIN: 36.4 ?C(Axillary) TMAX: 37.4 ?C(Axillary) HR: 93(Monitored) RR: 22 BP: 125/72 SpO2: 96% WT: 91.3 kg Intake & Output This visit (24 hour periods starting at 07:00 EDT) 02/18/23 * 02/17/23 02/16/23 Total Summary Intake mL 10 791 949 Output mL 150 200 975 Fluid Balance -140 591 -26 Intake (9) Blood Unit #4 Volume Infused mL -- -- 320 Oral Intake mL -- 550 -- Sodium Chloride 0.9% mL -- 200 190 Sodium Chloride 0.9% intravenous solution 1,000 mL mL -- -- 50 furosemide mL -- -- 2 lidocaine mL -- 3 1 magnesium/potassium/sod ium sulfates mL -- -- 354 pantoprazole mL 10 20 20 propofol mL -- 18 12 Total 10 791 949 Output (1) Urine Voided mL 150 200 975 Total 150 200 975 Counts (2) Stool Count -- -- 3 Urine Count -- 4 -- * This column has not completed the indicated time period. Physical Exam Constitutional: Awake and alert; oriented x3 with no apparent distress or respiratory distress appearing stated age Head/neck: Neck supple with no palpable lymphadenopathy, bruits or masses; trachea midline Chest/lungs: Initial but clear with no wheezes or rhonchi bilaterally Cardiovascular: Regular rate and rhythm; normal S1 and S2 with no murmur; no pitting edema and 1+ pulses bilaterally Gastrointestinal: Soft, nontender, nondistended, positive bowel sounds Neurological: Nonfocal; cranial nerves II through XII appear intact Psychological: Pleasant affect Lab Results WBC: 6.6 E9/L (02/18/23 06:06:00) RBC: 3.4 E12/L Low (02/18/23 06:06:00) HGB: 7.9 gm/dL Low (02/18/23 06:06:00) Hct: 25.6 % Low (02/18/23 06:06:00) MCV: 75.7 fL Low (02/18/23 06:06:00) MCH: 23.4 pg Low (02/18/23 06:06:00) MCHC: 31 gm/dL Low (02/18/23 06:06:00) RDW: 24.3 % High (02/18/23 06:06:00) Platelet: 184 E9/L (02/18/23 06:06:00) MPV: 9.2 fL (02/18/23 06:06:00) RBC Morph: See Morphology (02/18/23 06:06:00) Anisocytosis: Present (02/18/23 06:06:00) Microcyte: Present (02/18/23 06:06:00) Hypochromasia: Present (02/18/23 06:06:00) Polychromasia: Present (02/18/23 06:06:00) Ovalocytes: Present (02/18/23 06:06:00) Glucose Lvl: 98 mg/dL (02/18/23 06:06:00) BUN: 23 mg/dL High (02/18/23:06:00) Creatinine: 1.7 mg/dL High (02/18/23 06:06:00) eGFR: 39 mL/min/1.73 m2 Low (02/18/23:06:00) BUN/Creat Ratio: 14 (02/18/23:06:00) Sodium Lvl: 143 mmol/L (02/18/23 06:06:00) Potassium Lvl: 4 mmol/L (02/18/23 06:06:00) Chloride: 114 mmol/L High (02/18/23:06:00) CO2: 28 mmol/L (02/18/23 06:06:00) AGAP: 5 mEq/L Low (02/18/23 06:06:00) Calcium Lvl: 8.1 mg/dL Low (02/18/23 06:06:00) Assessment/Plan 87-year-old male admitted for acute blood loss anemia secondary to GI bleed -EGD showed normal esophagus and stomach with normal duodenum and examined jejunum; colonoscopy yesterday the showed no obvious source of lower GI bleed; there were 17 polyps noted but no polypectomy was performed as polypectomy would lead to potential bleeding and confound clinical picture. His comorbidities include tobacco use, hypertension, hyperlipidemia, CAD status post stent placement, history of CVA, carotid artery stenosis, PAF status post pacemaker placement on Eliquis and obesity. 1. Acute blood loss anemia (D62: Acute posthemorrhagic anemia) H&H dropped to 7.9 and 25.6 this morning I did talk with him and his daughter by telephone regarding possible transfer to facility that has IR and GI and they agreed Eliquis and aspirin held Continue PPI Protonix 40 mg IV push twice daily Ordered: [facility] Care/Day Moderate 35 Minutes 40744 2. GI bleed (K92.2: Gastrointestinal hemorrhage, unspecified) H&H did drop overnight but there is no overt signs of GI bleed and vital signs are stable Continue IV PPI as above Continue to hold aspirin and Eliquis Ordered: [facility] Care/Day Moderate 35 Minutes 38000 3. SUMMER (acute kidney injury) (N17.9: Acute kidney failure, unspecified) Creatinine did bump up to 1.7 Ordered: [facility] Care/Day Moderate 35 Minutes 02010 4. Elevated troponin (R79.89: Other specified abnormal findings of blood chemistry) May be secondary to type II ischemia secondary to acute blood loss; stable Ordered: [facility] Care/Day Moderate 35 Minutes 22428 5. Dyspnea (R06.00: Dyspnea, unspecified) On 3 L nasal cannula satting into the mid to upper 90s Ordered: [facility] Care/ (more content not included)... Normal [facility] Comment on above: Result Comment: Elec tronically Signed By: Sourav Canales DO\.br\Date and Time Signed: 02/18/23 14:14 EDT eGFRon 02-18-2023 GFR/1.73 sq M.predicted among non-blacks MDRD (S/P/Bld) [Vol rate/Area] 39 mL/min/1.73 m2 Low >=59 [facility] Comment on above: Order Comment: Order added by Discern Expert. Result Comment: Prosthodontist/Educator jese kidney disease could be indicated at eGFR's of less than 60 mL/min/1.73m2. Kidney failure is indicated at less than 15 mL/min/1.73m2. Performed By: #### 1 [id number], [id number], 7898362, 6375484, [id number] #### [facility] [address] [place] [address] BMPon 02-17-2023 Anion gap [Moles/Vol] 8 mmol/L Normal 6-16 [facility] Comment on above: Performed By: #### 1 [id number], 10510970, 3573006, 3548422, [id number] #### [facility] [address] [place] [address] Calcium [Mass/Vol] 8.5 mg/dL Low 8.9-11.1 [facility] Comment on above: Performed By: #### 1 [id number], 01017820, 0845543, 2561674, [id number] #### [facility] [address] [place] [address] Chloride [Moles/Vol] 117 mmol/L High 101-111 [facility] Comment on above: Performed By: #### 1 [id number], 42356616, 5697014, 6574077, [id number] #### [facility] [address] [place] [address] CO2 [Moles/Vol] 26 mmol/L Normal 21-31 [facility] Comment on above: Performed By: #### 1 [id number], 28359667, 9913141, 2323529, [id number] #### [facility] [address] [place] [address] Creatinine [Mass/Vol] 1.6 mg/dL High 0.5-1.3 [facility] Comment on above: Performed By: #### 1 [id number], [id number], 4665601, 1112158, 18574760 #### [facility] [address] [place] [address] Glucose [Mass/Vol] 96 mg/dL Normal 55-199 [facility] Comment on above: Result Comment: If t his glucose result represents a fasting glucose, interpretation should refer to the following reference range: 55-99 mg/dL Performed By: #### 1 [id number], 27258128, 1057100, 2483733, [id number] #### [facility] [address] [place] [address] Potassium [Moles/Vol] 3.7 mmol/L Normal 3.5-5.3 [facility] Comment on above: Performed By: #### 1 [id number], 99555021, 6051342, 5565875, [id number] #### [facility] [address] [place] [address] Sodium [Moles/Vol] 147 mmol/L High 135-145 [facility] Comment on above: Performed By: #### 1 [id number], 62232132, 1376344, 9564473, 47065381 #### [facility] [address] [place] [address] Urea nitrogen [Mass/Vol] 23 mg/dL High 5-21 [facility] Comment on above: Performed By: #### 1 [id number], 81769524, 9835158, 3364926, [id number] #### [facility] [address] [place] [address] Urea nitrogen/Creatinine [Mass ratio] 14 No Units Normal 10-20 [facility] Comment on above: Performed By: #### 1 [id number], [id number], 6816449, 6569831, [id number] #### [facility] [address] [place] [address] Consenton 02-17-2023 Consent [id number]#1.00 TIFF Normal [facility] Hct & Hgbon 02-17-2023 Hematocrit (Bld) [Volume fraction] 26.8 % Low 37.7-49.0 [facility] Comment on above: Performed By: #### 1 [id number], 74269260, 7893587, 6736699, 53259611 #### [facility] [address] [place] [address] Hemoglobin (Bld) [Mass/Vol] 8.4 g/dL Low 13.5-17.5 [facility] Comment on above: Performed By: #### 1 [id number], 25431799, 3911179, 9488441, [id number] #### [facility] [address] [place] [address] Interdisciplinary Note - Ron e Manageron 02-17-2023 Interdisciplinary Note - Submarine Cable Equipment Technician CRM to room to discuss DC Planning. Patient is awake , alert and oriented. Patient daughter is in room. They prefer [facility] to transport if they can at [place]. Patient is from there [place]. Patient verified PCP, home DME and insurance. Patient is here as inpatient, medicare form completed. Patient is here for Anemia, Black Stool. Patient had elevated troponin on admission. Patient is assigned to Dr Canales, see notes. Patient has Cardiology and GI consults on case. Patient on 02/16 had EGD. On 02/17 Colonoscopy. Patient has had blood transfusion this stay. Patient is pending PT/ OT recs. Patient would like a FWW and Toilet Riser. Patient would be okay with HH therapy if recommended. Patient was provided CRM contact, white board updated. Anticipated DC 02/18. CRM following Patient will need weaned off oxygen or desat at [facility] Comment on above: Result Comment: Elec tronically Signed By: Natalya Rivas\.br\Date and Time Signed: 02/17/23 10:08 EDT Interdisciplinary Note - Maggie n 02-17-2023 Interdisciplinary Note - OT OT [facility] six clicks score 17/24 = SNF vs HH services. Patient requires Min A w/ LE self care and cga w/ transfers. Pt is mildly impulsive w/ functional tasks. Inpatient OT services to follow daily to progress as tolerates w/ self help tasks and transfers. [facility] Main OR PACU I Recordon 01-21 Main OR PACU I Record PACU Phase I Document Type FT Summary Primary Physician: Lindy PILLAI, Stefan Kendrick Finalized Date/Time: 02/17/23 09:19:24 Pt. Name: THANH COLEMAN/Sex: 1935 Male Med Rec #: [id number] Physician: Lavell Siegel DO Financial #: [id number] Pt. Type: I Room/Bed: N305/ Admit/Disch: 02/15/23 13:33:36 - Institution: Case Times PACU I FT Pre-Care Text: Identifies barriers to communication and implements measures to provide psychological support Develops individualized plan of care, and ensures continuity of care Maintains patient's dignity and privacy, and maintains patient confidentiality Identifies and reports philosophical, cultural, and spiritual beliefs and values Identifies individual values and wishes concerning care Implements aseptic technique, and administers prescribed antibiotic therapy and immunizing agents as ordered Evaluates postoperative tissue perfusion Implements thermoregulation measures, and monitors body temperature Evaluates postoperative respiratory status Evaluates postoperative cardiac status Evaluates postoperative neurological status Assesses pain control, collaborated in initiating patient-controlled analgesia and implements alternative methods of pain control Verifies allergies, administers prescribed medications and solutions, evaluates response to medications Entry 1 In PACU I 02/17/23 07:51:00 Discharge from PACU 02/17/23 08:21:00 I Outcomes Met? Yes Last Modified By: Darlin Rubi RN 02/17/23 09:19:06 Post-Care Text: The patient demonstrates knowledge of the expected response to the operative or invasive procedure The patient's care is consistent with the individualized perioperative plan of care The patient's right to privacy is maintained The patient's value system, lifestyle, ethnicity, and culture are considered, respected, and incorporated into the perioperative plan of care The patient participates in decisions affecting his or her perioperative plan of care The patient is free from signs and symptoms of infection The patient has wound/tissue perfusion consistent with or improved from baseline levels established preoperatively The patient is at or returning to normothermia at the conclusion of the immediate postoperative period The patient's respiratory function is consistent with or improved from baseline levels established preoperatively The patient's cardiovascular status is consistent with or improved from baseline levels established preoperatively The patient's cardiovascular status is consistent with or improved from baseline levels established preoperatively The patient demonstrates and/or reports adequate pain control throughout the perioperative period The patient received appropriate medication(s), safely administered during the perioperative period Acuity Level PACU I FT Entry 1 Start Time 02/17/23 07:51:00 Stop Time 02/17/23 08:21:00 Acuity Level Acuity Level I Last Modified By: Darlin Rubi RN 02/17/23 09:19:20 Finalized By: Darlin Rubi RN Document Signatures Signed By: Darlin Rubi RN 02/17/23 09:19 Trina [facility] Main OR Preoperative Recordo n 02-17-2023 Main OR Preoperative Record Holding Area Document Type FT Summary Primary Physician: Stefan Israel MD Finalized Date/Time: 02/17/23 06:54:52 Pt. Name: THANH COLEMANO.B./Sex: 1935 Male Med Rec #: [id number] Physician: Lavell Siegel DO Financial #: [id number] Pt. Type: I Room/Bed: N305/01 Admit/Disch: 02/15/23 13:33:36 - Institution: Case Times Holding FT Pre-Care Text: Verifies consent for planned procedure, identifies individual values and wishes concerning care, includes family members in perioperative teaching Secures patient's records' belongings, and valuables, maintains patient's dignity and privacy, and maintains patient confidentiality Entry 1 In Holding 02/17/23 06:49:00 Outcomes Met? Yes Last Modified By: Kerry Mares RN 02/17/23 06:53:31 Post-Care Text: The patient participates in decisions affecting his or her perioperative plan of care The patient's right to privacy is maintained Surgery Checklist FT Entry 1 Patient Birthday, ID Band Procedure History and Physical, Identification: Check, Patient Verification: Surgical Consent, With Participation Patient NPO after Midnight: Yes Date/Time: 02/17/23 04:45:00 Personal Items: Defibrilator, Pacemaker Personal Items pacemaker, defibrilator Comment: Limitations: n/a Complaints of Pain: No Pain Comment: denies Operative Site n/a Marking: Marked By: n/a Availability Equipment Verified: Does Patient Smoke Yes If Yes to Smoking. 3 cigarettes per day Cigars or Cigarettes. How much per day? Patient states Yes Comment - Adult inpatient postop adult Supervision supervision available Case Cancelled in No Holding Area see comments below for reason Last Modified By: Kerry Mares RN 02/17/23 06:54:50 General Comments: Per bedside nurse, pt finished colon prep by 0445, stool is liquid green /,RN Finalized By: Kerry Mares RN Document Signatures Signed By: Kerry Mares RN 02/17/23 06:54 Normal [facility] Message from Medicareon 01-21 Message from Medicare [id number]#1.00TI FF Normal [facility] Monitor Recordon 02-17-2023 Monitor Record [id number]#1.00 TIFF Normal [facility] Monitor Record [id number]#1.00 TIFF Normal [facility] Monitor Record [id number]#1.00 TIFF Normal [facility] Monitor Record [id number]#1.00 TIFF Normal [facility] Monitor Record [id number]#1.00TI FF Normal [facility] Monitor Record [id number]#1.00 TIFF Normal [facility] Monitor Record [id number]#1.00 TIFF Normal [facility] Operative Reporton Operative Report Patient: CHRISS COLEMAN Age: 87 years Sex: Male : 1935 Associated Diagnoses: None Author: Stefan Israel MD Pre-Procedure Procedure Date 02/17/2023 09:34:00 . Procedure Type: Colonoscopy. Procedure provider Performed by Stefan sIrael MD. Current history and physical Documented on chart. Colonoscopy ([id number]) on 02/17/2023 at 87 Years. EGD - esophagogastroduodenosc opy ([id number]) on 02/16/2023 at 87 Years. Cardiac pacemaker ([id number]).. Past Medical History No active or resolved past medical history items have been selected or recorded.. Family History Diabetes mellitus type 2 Father Alcoholism Father . Procedure History Colonoscopy ([id number]) on 02/17/2023 at 87 Years. EGD - esophagogastroduodenosc opy ([id number]) on 02/16/2023 at 87 Years. Cardiac pacemaker ([id number]).. Colorectal neoplasm risk assessment Average risk. Informed Consent After discussing the rationale, risks and benefits, and alternatives to this procedure, the patient provided signed consent for the procedure. Pre-procedure diagnosis: melena, unexplained Medications (Selected) Inpatient Medications Ordered Ambien 5 mg Tab: 5 mg = 1 tab(s), Tab, Oral, Bedtime PRN Sleep, Routine, Start date 02/15/23 16:30:00 EDT, 02/15/23 16:30:00 EDT Benadryl 25 mg Cap: 25 mg = 1 cap(s), Cap, Oral, q6hr PRN Itching, Routine, Start date 02/15/23 16:30:00 EDT, 02/15/23 16:30:00 EDT DuoNeb 2.5 mg-0.5 mg/3 mL Soln-Inh: 3 mL, Soln-Inh, Inhalation, QID PRN Shortness of breath or wheezing, Routine, Start date 02/15/23 16:44:00 EDT Phenergan 25 mg/mL Injection: 12.5 mg = 0.5 mL, Injection, IV Push, q6hr PRN Nausea, Routine, Start date 02/15/23 16:30:00 EDT, 02/15/23 16:30:00 EDT Sodium Chloride 0.9% IV Cherry 1000 mL 1,000 mL: 1,000 mL, IV, 20 mL/hr, STAT, Start date 02/15/23 13:57:00 EDT, 50 hour(s), Total volume (mL): 1,000, 93 kg, 2.13, m2 Sodium Chloride 0.9% IV Cherry 500 mL 500 mL: 500 mL, IV, 20 mL/hr, PRN Other (see comment), STAT, Start date 02/15/23 15:16:00 EDT, 25 hour(s), Total volume (mL): 500, 93 kg, 2.13, m2 Suprep Bowel Prep Kit oral liquid: 177 mL, Liquid, Oral, q8hr for 2 dose(s), Stop date 02/17/23 11:59:00 EDT, Routine, Start date 02/16/23 20:00:00 EDT, Follow Directions on the package. Zofran 4 mg/2 mL Injection: 4 mg = 2 mL, Injection, IV Push, q6hr PRN Nausea, Routine, Start date 02/15/23 16:30:00 EDT, 02/15/23 16:30:00 EDT acetaminophen 325 mg Tab: 650 mg = 2 tab(s), Tab, Oral, q6hr PRN Pain, Routine, Start date 02/15/23 16:30:00 EDT, 02/15/23 16:30:00 EDT hydrALAZINE 20 mg/mL Inj: 10 mg = 0.5 mL, Injection, IV Push, q6hr PRN Other (see comment), Routine, Start date 02/15/23 16:30:00 EDT, 02/15/23 16:30:00 EDT morphine 2 mg/mL Inj: 2 mg = 1 mL, Injection, IV Push, q4hr PRN Pain for 5 day(s), Stop date 02/20/23 16:29:00 EDT, Routine, Start date 02/15/23 16:30:00 EDT, 02/15/23 16:30:00 EDT nicotine 14 mg/24 hr Transderm ER Film: 14 mg, 1 patch(es), Patch-ER, TransDermal, Daily, Routine, Start date 02/16/23 9:00:00 EDT pantoprazole 40 mg IV Inj: 40 mg = 10 mL, Injection, IV Push, BID, Routine, Start date 02/15/23 21:00:00 EDT, 02/15/23 16:26:00 EDT Prescriptions Prescribed Eliquis 2.5 mg oral tablet: 2.5 mg = 1 tab(s), Oral, BID, # 60 EA, Refills(s) 5, Pharmacy: [facility], 175, cm, 01/03/23 13:27:00 EDT, Height/Length Dosing, 88.4, kg, 01/03/23 13:27:00 EDT, Weight Dosing Pantoprazole [address] Tab: 40 mg = 1 tab(s), Oral, Daily, # 30 tab(s), Refills(s) 5, Pharmacy: [facility], 175, cm, 01/03/23 13:27:00 EDT, Height/Length Dosing, 88.4, kg, 01/03/23 13:27:00 EDT, Weight Dosing atorvastatin 40 mg Tab: 40 mg = 1 tab(s), Oral, Daily, # 30 tab(s), Refills(s) 5, Pharmacy: [facility], 175, cm, 01/03/23 13:27:00 EDT, Height/Length Dosing, 88.4, kg, 01/03/23 13:27:00 EDT, Weight Dosing Documented Medications Documented Vitamin D3 2000 intl units oral Tab: 50 mcg, Oral, Daily, tab(s), Refills(s) 0 aspirin 81 mg Oral EC Tab: 81 mg = 1 tab(s), Oral, Daily, # 90 tab(s), Refills(s) 0 ezetimibe 10 mg Tab: 10 mg = 1 tab(s), Oral, Daily, # 90 tab(s), Refills(s) 0 fenofibrate 54 mg oral tablet: 54 mg = 1 tab(s), Oral, Daily, # 90 tab(s), Refills(s) 0 furosemide 20 mg Tab: 20 mg = 1 tab(s), Oral, Daily, PRN Edema, # 90 tab(s), Refills(s) 0 nitroglycerin 0.4 mg sublingual Tab: 0.4 mg = 1 tab(s), SubLingual, q5min, PRN for chest pain, # 100 tab(s), Refills(s) 0 ASA Classification: Class III. . Monitoring: See anesthesia record. . Procedure The procedure was performed in the hospital. See anesthesia record for sedation given during procedure. Rectal exam was performed and was normal. The patient was positioned starting in the left lateral decubitus position. Endoscope type used was an adult-size. The endoscope was lubricated then introduced through the anus. The scope was advanced to the cecum. No difficulties encountered during the procedure. The bowel pr (more content not included)... Normal [facility] Comment on above: Result Comment: Elec tronically Signed By: Lindy PILLAI, Stefan Carney.br\Date and Time Signed: 02/17/23 09:38 EDT Path. Reviewon 02-17-2023 Path Review Microcytic hypochrom ic anemia with anisocytosis, occasional ovalocytes, target cells and polychromasia. Clinical correlation and iron studies are indicated to rule out iron deficiency anemia or blood loss as clinically indicated. Invalid Interpretation Code [facility] Comment on above: Order Comment: Order Added by Discern Expert. Performed By: #### 1 [id number] #### [facility] [address] [place] [address] [place] [address] Progress Note-Physicianon Progress Note-Physician Subjective S/P colonoscopy this AM Doing well overnight and this AM voicing no complaints Review of Systems Constitutional: no fever, no chills, no sweats, no weakness Respiratory: no shortness of breath, no cough, no orthopnea, no wheezing Cardiovascular: no chest pain, no palpitations, no edema Additional ROS info: Except as noted in the above Review of Systems and in the History of Present Illness all other systems have been reviewed and are negative or noncontributory. Objective Vitals & Measurements T: 36.4 ?C(Axillary) TMIN: 36.4 ?C(Axillary) TMAX: 37 ?C(Axillary) HR: 87(Monitored) RR: 21 BP: 116/67 SpO2: 99% WT: 90.8 kg Intake & Output This visit (24 hour periods starting at 07:00 EDT) 02/17/23 * 02/16/23 02/15/23 Total Summary Intake mL 231 949 1,185.51 Output mL -- 975 650 Fluid Balance 231 -26 535.51 Intake (13) Blood Unit #1 Volume Infused mL -- -- 330 Blood Unit #2 Volume Infused mL -- -- 330 Blood Unit #3 Volume Infused mL -- -- 330 Blood Unit #4 Volume Infused mL -- 320 -- Oral Intake mL -- -- -- Sodium Chloride 0.45% intravenous solution 1,000 mL mL -- -- 175.51 Sodium Chloride 0.9% mL 200 190 -- Sodium Chloride 0.9% intravenous solution 1,000 mL mL -- 50 -- furosemide mL -- 2 -- lidocaine mL 3 1 -- magnesium/potassium/sod ium sulfates mL -- 354 -- pantoprazole mL 10 20 20 propofol mL 18 12 -- Total 231 949 1,185.51 Output (1) Urine Voided mL -- 975 650 Total -- 975 650 Counts (1) Stool Count -- 3 1 * This column has not completed the indicated time period. Physical Exam Constitutional: Awake and alert; oriented x3 with no apparent distress or respiratory distress appearing stated age Head/neck: Neck supple with no palpable lymphadenopathy, bruits or masses; trachea midline Chest/lungs: Initial but clear with no wheezes or rhonchi bilaterally Cardiovascular: Regular rate and rhythm; normal S1 and S2 with no murmur; no pitting edema and 1+ pulses bilaterally Gastrointestinal: Soft, nontender, nondistended, positive bowel sounds Neurological: Nonfocal; cranial nerves II through XII appear intact Psychological: Pleasant affect Lab Results HGB: 8.4 gm/dL Low (02/17/23 06:00:00) Hct: 26.8 % Low (02/17/23 06:00:00) Glucose Lvl: 96 mg/dL (02/17/23 06:00:00) BUN: 23 mg/dL High (02/17/23 06:00:00) Creatinine: 1.6 mg/dL High (02/17/23 06:00:00) eGFR: 41 mL/min/1.73 m2 Low (02/17/23 06:00:00) BUN/Creat Ratio: 14 (02/17/23 06:00:00) Sodium Lvl: 147 mmol/L High (02/17/23 06:00:00) Potassium Lvl: 3.7 mmol/L (02/17/23 06:00:00) Chloride: 117 mmol/L High (02/17/23 06:00:00) CO2: 26 mmol/L (02/17/23 06:00:00) AGAP: 8 mEq/L (02/17/23 06:00:00) Calcium Lvl: 8.5 mg/dL Low (02/17/23 06:00:00) Assessment/Plan 87-year-old male admitted for acute blood loss anemia secondary to GI bleed -EGD showed normal esophagus and stomach with normal duodenum and examined jejunum; colonoscopy this morning no obvious source of lower GI bleed; there were 17 polyps noted but no polypectomy was performed as polypectomy would lead to potential bleeding and confound clinical picture. His comorbidities include tobacco use, hypertension, hyperlipidemia, CAD status post stent placement, history of CVA, carotid artery stenosis, PAF status post pacemaker placement on Eliquis and obesity. 1. Acute blood loss anemia (D62: Acute posthemorrhagic anemia) H&H stable this morning and vital signs are stable; no evidence of GI bleed at this time Eliquis and aspirin held at this time 2. GI bleed (K92.2: Gastrointestinal hemorrhage, unspecified) EGD and colonoscopy noted H&H stable Off Eliquis 3. SUMMER (acute kidney injury) (N17.9: Acute kidney failure, unspecified) That need down to 1.6 4. Elevated troponin (R79.89: Other specified abnormal findings of blood chemistry) Elevated troponin secondary to type II non-ST segment elevation myocardial infarction from above acute blood loss anemia 5. Dyspnea (R06.00: Dyspnea, unspecified) Improved; room air satting well 6. Generalized weakness (R53.1: Weakness) Continue PT 7. Atelectasis of both lungs (J98.11: Atelectasis) Is status post right bedside 8. Carotid stenosis, bilateral (I65.23: Occlusion and stenosis of bilateral carotid arteries) Chronic 9. Smoker (F17.200: Nicotine dependence, unspecified, uncomplicated) Nicotine replacement therapy and smoking cessation 10. Hyperlipidemia (E78.5: Hyperlipidemia, unspecified) On Lipitor 11. Hypertension (I10: Essential (primary) hypertension) Diet controlled 12. Coronary artery disease (I25.10: Atherosclerotic heart disease of [place] coronary artery without angina pectoris) Status post stent placement; maintain Lipitor 13. History of cerebrovascular accident (Z86.73: Personal history of transient ischemic attack (TIA), and cerebral infarction without res (more content not included)... Normal [facility] Comment on above: Result Comment: Elec tronically Signed By: Sourav Canales DO.br\Date and Time Signed: 02/17/23 13:34 EDT Progress Note-Physician Patient: THANH COLEMAN Age: 87 years Sex: Male : 1935 Associated Diagnoses: None Author: Boom Kolb Jr, DO Preoperative Information Anesthesia Preop Info: Time patient last ate or drank 02/16/2023 00:00:00. Anesthesia history: Patient history: None. Family history+: None. Informed consent: Signed by patient. Re-evaluation prior to induction: Initial evaluation reviewed: No significant change. Review of Systems Eye: Negative except as documented in history of present illness. Ear/Nose/Mouth/Throat: Negative except as documented in history of present illness. Respiratory: Negative except as documented in history of present illness. Cardiovascular: Negative except as documented in history of present illness. Musculoskeletal: Negative except as documented in history of present illness. Neurologic: Negative except as documented in history of present illness. Health Status Allergies: Allergic Reactions (Selected) No Known Medication Allergies Problem list: All Problems At risk for falls / SNOMED CT 388073800 / Possible Problem added when Risk for Falls Careplan was initiated. Carotid stenosis, bilateral / SNOMED CT 6384700696 / Confirmed Smoker / SNOMED CT 859726639 / Confirmed Added secondary to documentation in Social History. Histories Procedure history: Cardiac pacemaker ([id number]). Social History Social & Psychosocial Habits Alcohol 02/15/2023 Risk Assessment: Denies Alcohol Use Substance Abuse 02/15/2023 Risk Assessment: Denies Substance Abuse Tobacco 02/15/2023 Tobacco Use: 10 or more cigarettes (1/ Smokeless tobacco use: Never Type: Cigarettes Ready to change: No Concerns about tobacco use in household: No Smoking Cessation Yes 02/15/2023 Risk Assessment: High Risk . Physical Examination Airway: Mallampati classification: II (soft palate, fauces, uvula visible). Respiratory: adequate air exchange. Cardiovascular: Regular rhythm. Plan [place] [employer]hesi[employer] (ASA) physical status classification: Class III, E. Anesthetic Preoperative Plan: Anesthesia General. [facility] Comment on above: Result Comment: Elec tronically Signed By: Boom Kolb Jr, DO\.br\Date and Time Signed: 02/17/23 10:42 EDT Progress Note-Physician Patient: THANH COLEMAN Age: 87 years Sex: Male : 1935 Associated Diagnoses: None Author: Boom Kolb Jr, DO Postoperative Information Postoperative disposition: Postoperative disposition: To PACU. Optimetrix number: Optimetrix number [id number]. Anesthetic utilized: General. Health Status Allergies: Allergic Reactions (Selected) No Known Medication Allergies Physical Examination Vital Signs 02/16/2023 11:47 EDT Heart Rate Monitored 88 bpm Respiratory Rate Monitored 25 br/min Systolic Blood Pressure 144 mmHg HI Diastolic Blood Pressure 77 mmHg Blood Pressure Location Left arm Mean Arterial Pressure, Cuff 99 mmHg SpO2 96 % Pain Assessment: Controlled. General: Awake, Alert, Appropriate. Respiratory: Adequate air exchange. Cardiovascular: Stable, Normal peripheral perfusion. Neurological: Normal sensory function, Normal motor function. Assessment Anesthetic outcome No anesthetic complications noted. Adequate pain relief. able to void without difficulty, able to ambulate with assist, tolerating PO intake, no N/V. Review / Management Condition: Stable. Plan Transfer/Discharge: Transfer/Discharge Discharge when meets criteria ( To home ). Normal [facility] Comment on above: Result Comment: Elec tronically Signed By: Boom Kolb Jr, DO\Sarabr\Date and Time Signed: 02/17/23 10:42 EDT Progress Note-Physician Colonoscopy complete, no obvious source of lower GI bleeding detected no evidence of recent bleeding noted in the colon however there were 17 polyps noted. No polypectomy was performed as polypectomy would lead to potential bleeding which would confound clinical picture. The patient will follow-up in close order for outpatient in order to have polypectomies done. Advance to clear liquid diet for today. Should hemoglobin remain stable no signs of bleeding may advance regular diet tomorrow Should patient develop repeat signs of GI bleeding then he will need to be transferred to a center with interventional radiology capability Normal [facility] Comment on above: Result Comment: Elec tronically Signed By: Lindy PILLAI, Stefan Kendrick\.br\Date and Time Signed: 02/17/23 09:40 EDT eGFRon 02-17-2023 GFR/1.73 sq M.predicted among non-blacks MDRD (S/P/Bld) [Vol rate/Area] 41 mL/min/1.73 m2 Low >=59 [facility] Comment on above: Order Comment: Order Added by Discern Expert. Result Comment: Prosthodontist/Educator jese kidney disease could be indicated at eGFR's of less than 60 mL/min/1.73m2. Kidney failure is indicated at less than 15 mL/min/1.73m2. Performed By: #### 1 [id number], [id number], [id number], [id number] #### [facility] [address] [place] [address] Auto Diffon 02-16-2023 Basophils/100 WBC (Bld) 1.1 % Normal 0.0-2.0 [facility] Comment on above: Order Comment: Order Added by Discern Expert. Performed By: #### 1 [id number], [id number], [id number], [id number], [id number] #### [facility] [address] [place] [address] Basophils/Leukocyte s Auto (Bld) [Pure # fraction] 0.1 E9/L Normal 0.0-0.2 [facility] Comment on above: Order Comment: Order Added by Discern Expert. Performed By: #### 1 [id number], [id number], [id number], [id number], [id number] #### [facility] [address] [place] [address]842 Eosinophils/100 WBC (Bld) 2.6 % Normal 0.0-8.0 [facility] Comment on above: Order Comment: Order Added by Cam Expert. Performed By: #### 1 [id number], [id number], 1345643, 6379832, [id number] #### [facility] [address] [place] [address] Eosinophils/Leukocy rosanna Auto (Bld) [Pure # fraction] 0.2 E9/L Normal 0.0-0.5 [facility] Comment on above: Order Comment: Order Added by Cam Expert. Performed By: #### 1 [id number], [id number], [id number], 1331442, [id number] #### [facility] [address] [place] [address] Lymphocytes/100 WBC (Bld) 17.8 % Normal 14.0-50.0 [facility] Comment on above: Order Comment: Order Added by Cam Expert. Performed By: #### 1 [id number], [id number], 1341579, 2282858, [id number] #### [facility] [address] [place] [address] Lymphocytes/Leukocy rosanna Auto (Bld) [Pure # fraction] 1.2 E9/L Normal 1.0-4.0 [facility] Comment on above: Order Comment: Order Added by Cam Expert. Performed By: #### 1 [id number], [id number], 7240504, 0805054, [id number] #### [facility] [address] [place] [address] Monocytes/100 WBC (Bld) 11.0 % Normal 4.0-14.0 [facility] Comment on above: Order Comment: Order Added by Discern Expert. Performed By: #### 1 [id number], [id number], 9185075, [id number], [id number] #### [facility] [address] [place] [address] Monocytes/Leukocyte s Auto (Bld) [Pure # fraction] 0.7 E9/L Normal 0.2-1.0 [facility] Comment on above: Order Comment: Order Added by Discern Expert. Performed By: #### 1 [id number], [id number], 8360664, 5042351, [id number] #### [facility] [address] [place] [address] 20941 Neutrophils/100 WBC (Bld) 67.5 % Normal 36.0-75.0 [facility] Comment on above: Order Comment: Order Added by Discern Expert. Performed By: #### 1 [id number], [id number], 9141016, 6200410, [id number] #### [facility] [address] [place] [address] Neutrophils/Leukocy rosanna Auto (Bld) [Pure # fraction] 4.5 E9/L Normal 2.0-7.5 [facility] Comment on above: Order Comment: Order Added by Discern Expert. Performed By: #### 1 [id number], [id number], 4797597, 0003141, [id number] #### [facility] [address] [place] [address] BMPon 02-16-2023 Anion gap [Moles/Vol] 4 mmol/L Low 6-16 [facility] Comment on above: Performed By: #### 1 [id number], 20057777, 9178578, 3087646, [id number] #### [facility] [address] [place] [address] Calcium [Mass/Vol] 7.8 mg/dL Low 8.9-11.1 [facility] Comment on above: Performed By: #### 1 [id number], [id number], 9557795, 7649551, [id number] #### [facility] [address] [place] [address] Chloride [Moles/Vol] 111 mmol/L Normal 101-111 [facility] [facility] Comment on above: Performed By: #### 1 [id number], [id number], [id number], [id number], [id number] #### [facility] [address] [place] [address] CO2 [Moles/Vol] 25 mmol/L Normal 21-31 [facility] Comment on above: Performed By: #### 1 [id number], [id number], 1526098, [id number], [id number] #### [facility] [address] [place] [address] Creatinine [Mass/Vol] 1.9 mg/dL High 0.5-1.3 [facility] Comment on above: Performed By: #### 1 [id number], [id number], 9956319, 4829963, [id number] #### [facility] [address] [place] [address] Glucose [Mass/Vol] 101 mg/dL Normal 55-199 [facility] Comment on above: Result Comment: If t his glucose result represents a fasting glucose, interpretation should refer to the following reference range: 55-99 mg/dL Performed By: #### 1 [id number], [id number], 7514908, 1507124, [id number] #### [facility] [address] [place] [address] Potassium [Moles/Vol] 3.6 mmol/L Normal 3.5-5.3 [facility] Comment on above: Performed By: #### 1 [id number], [id number], 1295692, 3839933, 32669759 #### [facility] [address] [place] [address] Sodium [Moles/Vol] 136 mmol/L Normal 135-145 [facility] Comment on above: Performed By: #### 1 [id number], [id number], 7612493, 2471746, [id number] #### [facility] [address] [place] [address] Urea nitrogen [Mass/Vol] 31 mg/dL High 5-21 [facility] Comment on above: Performed By: #### 1 [id number], 37344550, 2185374, 5252138, [id number] #### [facility] [address] [place] [address] Urea nitrogen/Creatinine [Mass ratio] 16 No Units Normal 10-20 [facility] Comment on above: Performed By: #### 1 [id number], 68980508, 5982825, 3940523, 73531451 #### [facility] [address] [place] [address] CBC w/ Auto Diffon Erythrocyte distribution width (RBC) [Ratio] 24.0 % High 10.9-14.2 [facility] Comment on above: Performed By: #### 1 [id number], 38456562, 2696533, 7384519, [id number] #### [facility] [address] [place] [address] Hematocrit (Bld) [Volume fraction] 19.3 % Low 37.7-49.0 [facility] Comment on above: Performed By: #### 1 [id number], 10434509, 8872605, 3329559, 46876472 #### [facility] [address] [place] [address] Hemoglobin (Bld) [Mass/Vol] 5.9 g/dL Abnormal 13.5-17.5 [facility] Comment on above: Result Comment: Resu lts Verified By Repeat Analysis Results Called To Celi Mei By Ruma Pinto And Read Back For Confirmation On 02/16/2023 03:05:18 EDT. Performed By: #### 1 [id number], [id number], 4658314, 1347622, [id number] #### [facility] [address] [place] [address] MCH (RBC) [Entitic mass] 21.6 pg Low 27.0-34.0 [facility] Comment on above: Performed By: #### 1 5145947, 62082959, 5075677, 3398173, 58195574 #### [facility] [address] [place] [address] MCHC (RBC) [Mass/Vol] 30.4 g/dL Low 31.4-36.0 [facility] Comment on above: Performed By: #### 1 2298062, 15037183, 8827780, 2628264, 91330684 #### [facility] [address] [place] [address] MCV (RBC) [Entitic vol] 71.1 fL Low 80.0-100.0 [facility] Comment on above: Performed By: #### 1 [id number], 96526833, 8571620, 2143664, 92080094 #### [facility] [address] [place] [address] Platelet mean volume (Bld) [Entitic vol] 8.6 fL Normal 6.4-10.8 [facility] Comment on above: Performed By: #### 1 [id number], 29564918, 2795326, 4134116, 52843393 #### [facility] [address] [place] [address] Platelets (Bld) [#/Vol] 222.0 E9/L Normal 150.0-500.0 [facility] Comment on above: Performed By: #### 1 3106896, 26432896, 5949087, 2026610, 99300153 #### [facility] [address] [place] [address] RBC (Bld) [#/Vol] 2.7 E12/L Low 4.3-5.9 [facility] Comment on above: Performed By: #### 1 9629072, 13776152, 2557990, 6011771, 47709492 #### [facility] [address] [place] [address] WBC corrected for nucl RBC Auto (Bld) [#/Vol] 6.7 E9/L Normal 4.0-11.0 [facility] Comment on above: Performed By: #### 1 [id number], 16654789, 2737379, 2412395, 62237082 #### [facility] [address] [place] [address] Consultation Noteon 02-17-20 Endoscopic Procedure Report - Other Patient: THANH COLEMAN Age: 87 years Sex: Male : 1935 Associated Diagnoses: None Author: Bela Suero MD Pre-Procedure Procedure Date 02/16/2023 11:32:00 . Procedure Type: Esophagogastroduodenosc opy. Procedure provider Performed by Bela Suero MD. Current history and physical Documented on chart. Informed Consent After discussing the rationale, risks and benefits, and alternatives to this procedure, the patient provided signed consent for the procedure. Pre-procedure diagnosis: GI bleeding. Medications Anticoagulant/antiplate let Eliquis 2 days ago. ASA Classification: Class III. . Monitoring: See anesthesia record. . Procedure The procedure was performed in the hospital. See anesthesia record for sedation given during procedure. The patient was positioned starting in the left lateral decubitus position and with safety measures. Endoscope type used was an adult-size, introduced orally, advanced to the 3rd portion of the duodenum. No difficulty was encountered during the procedure. Views were excellent. The patient tolerated the procedure well. Extent reached: Proximal jejunum Findings 1. Normal esophagus 2. Normal examined stomach. No signs of bleeding or old blood noted 3. Normal duodenum and examined jejunum Images Procedure images: Rec1_hd_video__2 [id number].jpg Rec_hd_video__2 [id number]_[id number].jpg Rec1_hd_video__2 9_33_[id number].jpg Rec1_hd_video_2 9T10__34_033.jpg Rec1_hd_video_ 9T10__23_528.jpg Rec1_hd_video_ 9T10_32_39_[id number].jpg Rec1_hd_video_2 9T1__36_364.jpg Rec1_hd_video_2 9T10_25_58_[id number].jpg Rec1_hd_video_2 9T1__21_961.jpg . Post-Procedure Complications: none. Estimated blood loss: minimal. Specimens: sent to pathology. Devices/ implants: none left in place. Impression and Plan 1. Normal esophagus 2. Normal examined stomach. No signs of bleeding or old blood noted 3. Normal duodenum and examined jejunum Recommendations -Clear liquids today, start bowel prep today, n.p.o. after midnight except for bowel prep if needed finish 4 hours before the procedure -Continue to hold anticoagulation if okay from cardiology standpoint -Colonoscopy tomorrow with Dr. Gordon -Can decrease PPI to daily -If severe GI bleeding, consider CTA and notify GI and surgery . Normal [facility] Comment on above: Result Comment: Elec tronically Signed By: Pio PILLAI, Bela Cano\.br\Date and Time Signed: 02/16/23 11:44 EDT Other Comment: Johanna hough Attachment - attachment storage system not supported [id number] Can be viewed in source systemMissing Attachment - attachment storage system not supported [id number] Can be viewed in source systemMissing Attachment - attachment storage system not supported [id number] Can be viewed in source systemMissing Attachment - attachment storage system not supported [id number] Can be viewed in source systemMissing Attachment - attachment storage system not supported [id number] Can be viewed in source systemMissing Attachment - attachment storage system not supported [id number] Can be viewed in source systemMissing Attachment - attachment storage system not supported [id number] Can be viewed in source systemMissing Attachment - attachment storage system not supported [id number] Can be viewed in source systemMissing Attachment - attachment storage system not supported [id number] Can be viewed in source system Consultation Note Patient: CHRISS COLEMAN Age: 87 years Sex: Male : 1935 Associated Diagnoses: None Author: Bela Suero MD Pre-Procedure Procedure Date 02/16/2023 11:32:00 . Procedure Type: Esophagogastroduodenosc opy. Procedure provider Performed by Bela Suero MD. Current history and physical Documented on chart. Informed Consent After discussing the rationale, risks and benefits, and alternatives to this procedure, the patient provided signed consent for the procedure. Pre-procedure diagnosis: GI bleeding. Medications Anticoagulant/antiplate let Eliquis 2 days ago. ASA Classification: Class III. . Monitoring: See anesthesia record. . Procedure The procedure was performed in the hospital. See anesthesia record for sedation given during procedure. The patient was positioned starting in the left lateral decubitus position and with safety measures. Endoscope type used was an adult-size, introduced orally, advanced to the 3rd portion of the duodenum. No difficulty was encountered during the procedure. Views were excellent. The patient tolerated the procedure well. Extent reached: Proximal jejunum Findings 1. Normal esophagus 2. Normal examined stomach. No signs of bleeding or old blood noted 3. Normal duodenum and examined jejunum Images Procedure images: Rec_hd_video_2 [id number].jpg Rec_hd_video_2 9T1_[id number].jpg Rec_hd_video_2 __54_711.jpg Rec_hd_video_2 9T1__34_033.jpg Rec_hd_video_2 9__23_528.jpg Rec1_hd_video__2 [id number]_[id number].jpg Rec1_hd_video_2 9T1__36_364.jpg Rec1_hd_video_ 9T10_25_58_[id number].jpg Rec1_hd_video_2 9T1__21_961.jpg . Post-Procedure Complications: none. Estimated blood loss: minimal. Specimens: sent to pathology. Devices/ implants: none left in place. Impression and Plan 1. Normal esophagus 2. Normal examined stomach. No signs of bleeding or old blood noted 3. Normal duodenum and examined jejunum Recommendations -Clear liquids today, start bowel prep today, n.p.o. after midnight except for bowel prep if needed finish 4 hours before the procedure -Continue to hold anticoagulation if okay from cardiology standpoint -Colonoscopy tomorrow with Dr. Gordon -Can decrease PPI to daily -If severe GI bleeding, consider CTA and notify GI and surgery Normal [facility] Comment on above: Result Comment: Elec tronically Signed By: Pio PILLAI, Bela Cano\.br\Date and Time Signed: 02/16/23 11:44 EDT Other Comment: Johanna hough Attachment - attachment storage system not supported [id number] Can be viewed in source systemMissing Attachment - attachment storage system not supported [id number] Can be viewed in source systemMissing Attachment - attachment storage system not supported [id number] Can be viewed in source systemMissing Attachment - attachment storage system not supported [id number] Can be viewed in source systemMissing Attachment - attachment storage system not supported [id number] Can be viewed in source systemMissing Attachment - attachment storage system not supported [id number] Can be viewed in source systemMissing Attachment - attachment storage system not supported [id number] Can be viewed in source systemMissing Attachment - attachment storage system not supported [id number] Can be viewed in source systemMissing Attachment - attachment storage system not supported [id number] Can be viewed in source system Consultation Note Patient: CHRISS COLEMAN Age: 87 years Sex: Male : 1935 Associated Diagnoses: None Author: Bela Suero MD Basic Information melena History of Present Illness This is an 87-year-old gentleman with past medical history of hypertension, CAD status post stenting, CVA, carotid artery stenosis, A-fib status post pacemaker on Eliquis who presented due to shortness of breath and fatigue. He also reported few weeks of black tarry stools. Does started few weeks ago when he started to have worsening fatigue and shortness of breath. Denies any abdominal pain, nausea, vomiting, fever or chills. No NSAIDs use On admission, hemoglobin was 4.7, normal platelets, INR 2, Vitals were stable He denies previous EGD or colonoscopy Review of Systems All systems reviewed, negative except as mentioned above Physical Examination General: in Nad Abdomen: Soft, NTND Vital Signs (last 24 hrs) Last Charted Temp Oral 37 DegC (FEB 16 06:55) Heart Rate Peripheral 75 bpm (FEB 16 06:55) Resp Rate 15 br/min (FEB 15 15:40) SBP 135 mmHg (FEB 16 06:55) DBP 64 mmHg (FEB 16 06:55) SpO2 93 % (FEB 16 10:14) Weight 93.9 kg (FEB 16 05:19) BMI 28.4 (FEB 15 16:20) Impression and Plan This is an 87-year-old gentleman with past medical history of hypertension, CAD status post stenting, CVA, carotid artery stenosis, A-fib status post pacemaker on Eliquis who presented due to shortness of breath and fatigue. He also reported few weeks of black tarry stools. Does started few weeks ago when he started to have worsening fatigue and shortness of breath. Denies any abdominal pain, nausea, vomiting, fever or chills. No NSAIDs use On admission, hemoglobin was 4.7, normal platelets, INR 2, Responded to transfusion, hemoglobin above 8 this morning, hemodynamically stable, reported melena this morning again -N.p.o. -Trend CBC every 6 hours if continues to bleed, daily BMP -Transfuse as needed -Continue IV PPI twice daily -Avoid NSAIDs -Will proceed with EGD -If severe GI bleed please notify me and consult general surgery Normal [facility] Comment on above: Result Comment: Elec tronically Signed By: Pio PILLAI, Bela Cano\.johana\Date and Time Signed: 02/16/23 10:42 EDT Consultation Note Chief Complaint patient c/o generalized weakness and fatigue that started a few weeks ago and has gotten worse over the past few days. denies chest pain or SOB. hx afib. pt appears pale and easily fatigued. denies blood in stool Reason for Consultation Abnormal troponin, anemia History of Present Illness Patient is a very pleasant 87-year-old patient of Dr. Villeda's and was seen for the first time in December 2022 as an outpatient, nondiabetic current smoker of approximately 75 pack years, with chronic kidney deficiency stage III, COPD, coronary disease status postcardiac stents although he cannot recall where or when, status post open AAA repair, chronic atrial fibrillation on Eliquis therapy, status post pacemaker placement. The patient was recently admitted to [facility] in [place] after being transferred from [facility] in the [facility] after presenting with new onset left-sided facial droop. Patient was found to have a CVA, and CT of his carotids demonstrated bilateral carotid stenosis of approximately 7 0%. Patient was treated with Eliquis and aspirin and subsequently discharged. He used to live in the [facility] but recently relocated back up to this area to be with his daughters and 4 assisted living. From a cardiac standpoint he denies any chest pain, angina, shortness of breath or dyspnea on exertion over baseline. He is compliant with his medications. He has had no presyncope or syncopal episodes. Patient claims that he had an echocardiogram in [facility] but he does not have that included in his paperwork today. Unfortunately he continues to smoke. Patient went a 2D echo with Doppler on 01/24/2023 with the following results: (01/24/2023 16:10 EDT Echo Transthoracic Complete) Interpretation Summary Ejection Fraction = 60-65%. Normal LV and RV. Pacemaker in RV. No significant valve disease. Mild PA hypertension. Pseudonormal diastolic filling pattern. Dilated aorta. [1] Over the last few days the patient has had progressively worsening fatigue, weakness, shortness of breath and recently black tarry stools. He came into the emergency room for evaluation and was found to have a hemoglobin of 4.7. His Eliquis and aspirin have been held. EKG on admission showed normal sinus rhythm with occasional paced ventricular beats, PVCs, no acute changes. Troponins have been mildly elevated most likely secondary to his significant anemia. Patient received PRBCs and replenishment. Review of Systems Constitutional: no fever, no sweats, severe weakness Skin: no rash, no lesions, nobruising/petechiae ENMT: no sore throat, no congestion, no hoarseness Respiratory: no shortness of breath, no cough, no orthopnea, no wheezing Cardiovascular: no chest pain, no palpitations, no edema Gastrointestinal: no nausea, no vomiting, no diarrhea, mild GI bleeding Genitourinary: no anuria/oliguria no hematuria Musculoskeletal: no back pain, no trauma Neurologic: no headache, no dizziness, no numbness, no weakness Psychiatric: no sleeping problems, no irritability, no anxiety/depression. Heme/Lymph: no bleeding tendency, no bruising tendency Allergy/Immunologic: no recurrent infections, no impaired immunity Additional ROS info: Except as noted in the above Review of Systems and in the History of Present Illness all other systems have been reviewed and are negative or noncontributory. Physical Exam Vitals & Measurements T: 37 ?C(Oral) TMIN: 36.2 ?C(Oral) TMAX: 37.3 ?C(Oral) HR: 75(Peripheral) RR: 20 BP: 135/64 SpO2: 92% HT: 180 cm WT: 93.9 kg General: alert, no acute distress Skin: warm, dry intact Head: atraumatic, normocephalic Neck: Trachea midline, no JVD, no bruit Eye: normal conjunctiva, sclera clear ENMT: oral mucosa moist Cardiovascular: regular rate and rhythm, nomurmur normal peripheral perfusion Respiratory: Lungs CTA, respirations non labored Chest wall: no deformity. Gastrointestinal: soft, non distended, no tenderness, no guarding. Back: No tenderness, Normal ROM, Normal alignment. Extremities: no edema, no deformity, no trauma Neurological: oriented x 4, LOC appropriate for agesensation equal & normal bilaterally, speech normal Psychiatric: cooperative, affect appropriate for age, normal judgement, normal psychiatric thoughts. Assessment/Plan 1. Acute blood loss anemia (D62: Acute posthemorrhagic anemia) 2. GI bleed (K92.2: Gastrointestinal hemorrhage, unspecified) 3. SUMMER (acute kidney injury) (N17.9: Acute kidney failure, unspecified) 4. Elevated troponin (R79.89: Other specified abnormal findings of blood chemistry) Patient has minimally elevated troponin superimposed on severe anemia. Would not pursue repeat echocardiogram or stress test at this time. We will hold his baby aspirin and Eliquis. Would recommend replenishing his hemoglobin to at least above 8.0. Patient had evidence of black tarry stools and may require GI assessment. Continue PPI therapy. Patient's recent echocardiogra (more content not included)... Normal [facility] Comment on above: Result Comment: Elec tronically Signed By: RONAL PILLAI, Johnny Tom.br\Date and Time Signed: 02/16/23 08:39 EDT Hct & Hgbon 02-16-2023 Hematocrit (Bld) [Volume fraction] 26.0 % Low 37.7-49.0 [facility] Comment on above: Performed By: #### 2 [id number] #### [facility] [address] [place] [address] Hemoglobin (Bld) [Mass/Vol] 8.2 g/dL Low 13.5-17.5 [facility] Comment on above: Performed By: #### 2 [id number] #### [facility] [address] [place] [address] Hematocrit (Bld) [Volume fraction] 25.1 % Low 37.7-49.0 [facility] Comment on above: Performed By: #### 1 [id number] ####[facility] [id number] [place] [address] Hemoglobin (Bld) [Mass/Vol] 7.9 g/dL Low 13.5-17.5 [facility] Comment on above: Performed By: #### 1 [id number] ####[facility] [id number] [place] [address] Interdisciplinary Note - Ron e Manageron 02-16-2023 Interdisciplinary Note - [employer] Equipment Technician CRM to room and patient is not present in room will have to see patient 02/17, CRM did attempt this date Normal [facility] Comment on above: Result Comment: Elec tronically Signed By: Natalya Rvias\.johana\Date and Time Signed: 02/16/23 15:05 EDT Main OR PACU I Recordon 10 Main OR PACU I Record PACU Phase I Document Type FT Summary Primary Physician: Bela Suero MD Finalized Date/Time: 02/16/23 13:45:45 Pt. Name: THANH COLEMAN /Sex: 1935 Male Med Rec #: [id number] Physician: Lavell Siegel DO Financial #: [id number] Pt. Type: I Room/Bed: [facility] Admit/Disch: 02/15/23 13:33:36 - Institution: Case Times PACU I FT Pre-Care Text: Identifies barriers to communication and implements measures to provide psychological support Develops individualized plan of care, and ensures continuity of care Maintains patient's dignity and privacy, and maintains patient confidentiality Identifies and reports philosophical, cultural, and spiritual beliefs and values Identifies individual values and wishes concerning care Implements aseptic technique, and administers prescribed antibiotic therapy and immunizing agents as ordered Evaluates postoperative tissue perfusion Implements thermoregulation measures, and monitors body temperature Evaluates postoperative respiratory status Evaluates postoperative cardiac status Evaluates postoperative neurological status Assesses pain control, collaborated in initiating patient-controlled analgesia and implements alternative methods of pain control Verifies allergies, administers prescribed medications and solutions, evaluates response to medications Entry 1 In PACU I 02/16/23 11:35:00 Discharge from PACU 02/16/23 12:05:00 I Outcomes Met? Yes Last Modified By: Stephania Abdul RN 02/16/23 13:45:32 Post-Care Text: The patient demonstrates knowledge of the expected response to the operative or invasive procedure The patient's care is consistent with the individualized perioperative plan of care The patient's right to privacy is maintained The patient's value system, lifestyle, ethnicity, and culture are considered, respected, and incorporated into the perioperative plan of care The patient participates in decisions affecting his or her perioperative plan of care The patient is free from signs and symptoms of infection The patient has wound/tissue perfusion consistent with or improved from baseline levels established preoperatively The patient is at or returning to normothermia at the conclusion of the immediate postoperative period The patient's respiratory function is consistent with or improved from baseline levels established preoperatively The patient's cardiovascular status is consistent with or improved from baseline levels established preoperatively The patient's cardiovascular status is consistent with or improved from baseline levels established preoperatively The patient demonstrates and/or reports adequate pain control throughout the perioperative period The patient received appropriate medication(s), safely administered during the perioperative period Acuity Level PACU I FT Entry 1 Start Time 02/16/23 11:35:00 Stop Time 02/16/23 12:05:00 Acuity Level Acuity Level I Last Modified By: Stephania Abdul RN 02/16/23 13:45:44 Finalized By: Stephania Abdul RN Document Signatures Signed By: Stephania Abdul RN 02/16/23 13:45 Normal [facility] Main OR Preoperative Recordo n 02-16-2023 Main OR Preoperative Record Holding Area Document Type FT Summary Primary Physician: Bela Suero MD Finalized Date/Time: 02/16/23 12:32:13 Pt. Name: THANH COLEMAN /Sex: 1935 Male Med Rec #: [id number] Physician: Lavell Siegel DO Financial #: [id number] Pt. Type: I Room/Bed: N3/ Admit/Disch: 02/15/23 13:33:36 - Institution: Case Times Holding FT Pre-Care Text: Verifies consent for planned procedure, identifies individual values and wishes concerning care, includes family members in perioperative teaching Secures patient's records' belongings, and valuables, maintains patient's dignity and privacy, and maintains patient confidentiality Entry 1 In Holding 02/16/23 10:04:00 Outcomes Met? Yes Last Modified By: Cruzito Schaeffer RN 02/16/23 12:29:44 Post-Care Text: The patient participates in decisions affecting his or her perioperative plan of care The patient's right to privacy is maintained Surgery Checklist FT Entry 1 Patient Birthday, ID Band Procedure History and Physical, Identification: Check, Patient Verification: Surgical Consent, With Participation Patient NPO after Midnight: Yes Results Reviewed n/a Comments: Personal Items: Pacemaker Personal Items heart stents, pacemaker Comment: (unknown if defibrilator) Limitations: confused at time. Complaints of Pain: No daughter present at bedside to assist to questions Pain Comment: denies pain at this time Operative Site n/a Marking: Marked By: n/a Location: n/a Availability Equipment Verified: Does Patient Smoke Yes If Yes to Smoking. 3 cigarettes per day Cigars or Cigarettes. How much per day? Patient states Yes Comment - Adult daughter at bedside. postop adult Supervision inpatient room-305 supervision available Case Cancelled in No Holding Area see comments below for reason Last Modified By: Cruzito Schaeffer RN 02/16/23 12:32:10 Finalized By: Cruzito Schaeffer RN Document Signatures Signed By: Cruzito Schaeffer RN 02/16/23 12:32 Normal [facility] Monitor Recordon 02-16-2023 Monitor Record [id number] 000 [id number] TIFF Normal [facility] Monitor Record [id number] 000 [id number] TIFF Normal [facility] Morphon 02-16-2023 Anisocytosis Ql (Bld) Present Normal [facility] Comment on above: Order Comment: Order Added by Discern Expert. Performed By: #### 1 [id number], 00515186, 8004351, 5821849, 64688440 #### [facility] [address] [place] [address] Hypochromia Auto Ql (Bld) Present Normal [facility] Comment on above: Order Comment: Order Added by Discern Expert. Performed By: #### 1 3960523, 73439614, 7859119, 2990018, 03775036 #### [facility] [address] [place] [address] Microcytes Ql (Bld) Present Normal [facility] Comment on above: Order Comment: Order Added by Discern Expert. Performed By: #### 1 2778906, 76319801, 0575848, 5365534, 08346770 #### [facility] [address] [place] [address] Morphology Jose (Bld) [Interp] See Morphology Normal [facility] Comment on above: Order Comment: Order Added by Discern Expert. Performed By: #### 1 0402478, 09331744, 4762815, 7753082, 73626765 #### [facility] [address] [place] [address] Polychromasia LM Ql (Bld) Present Normal [facility] Comment on above: Order Comment: Order Added by Discern Expert. Performed By: #### 1 5081390, 63650206, 6389479, 0493333, 89632027 #### [facility] [address] [place] [address] Progress Note-Physicianon Progress Note-Physician Assessment/Plan 87-year-old male cigarette smoker with history of hypertension, hyperlipidemia, coronary artery disease status post stent, history of cerebrovascular accident, carotid artery stenosis, paroxysmal atrial fibrillation status post pacemaker placement on Eliquis, obesity presented with complaints of generalized weakness, shortness of breath of several weeks duration and black stool today and admitted with acute blood loss anemia secondary to gastrointestinal bleed, suspected acute kidney injury, dyspnea, generalized weakness, elevated troponin. 1. Acute blood loss anemia (D62: Acute posthemorrhagic anemia) Acute blood loss anemia?while on anticoagulation?suspect secondary to upper gastrointestinal bleed. Patient is status post 4 units of packed red blood cell transfusion?hemoglobin improved to 7.9. Eliquis suspended. I spoke with reaming machine operator?cristina ent will undergo EGD today. Ordered: pantoprazole, 40 mg = 10 mL, Injection, IV Push, BID, Routine, Start date 02/15/23 21:00:00 EDT, 02/15/23 16:26:00 EDT Consult to Gastroenterology Hemoglobin and Hematocrit [facility] Care/Day Moderate 35 Minutes 43451 2. GI bleed (K92.2: Gastrointestinal hemorrhage, unspecified) Suspected upper gastrointestinal bleed with black stool?while on Eliquis. Etiologies include gastric ulcer, peptic ulcer AVMs. Gastroenterology following with plans for EGD today. Ordered: pantoprazole, 40 mg = 10 mL, Injection, IV Push, BID, Routine, Start date 02/15/23 21:00:00 EDT, 02/15/23 16:26:00 EDT Consult to Gastroenterology Hemoglobin and Hematocrit [facility] Care/Day Moderate 35 Minutes 76111 Stool Occult Blood Stool Occult Blood Stool Occult Blood 3. SUMMER (acute kidney injury) (N17.9: Acute kidney failure, unspecified) Suspected acute kidney injury?secondary to ATN from gastrointestinal bleed and transient hypotension. Unknown baseline creatinine?no records here. Bladder scan showed 319 mils of urine Patient was able to void 350 mils. Repeat BMP in AM. Creatinine remains the same despite IV hydration and IV blood transfusion. Ordered: Basic Metabolic Panel Bladder Scan [facility]/Day Moderate 35 Minutes 01442 4. Elevated troponin (R79.89: Other specified abnormal findings of blood chemistry) Elevated troponin?secondary to type II non-ST segment elevation myocardial infarction from above acute blood loss anemia. Cardiology consult pending. Ordered: Consult to Cardiology [facility]/Day Moderate 35 Minutes 04334 5. Dyspnea (R06.00: Dyspnea, unspecified) Secondary to acute blood loss anemia. Slowly improving. Ordered: [facility]/Day Moderate 35 Minutes 76017 6. Generalized weakness (R53.1: Weakness) Secondary to generalized debility and acute blood loss anemia. Physical therapy evaluation pending. 7. Atelectasis of both lungs (J98.11: Atelectasis) Incentive spirometry. 8. Carotid stenosis, bilateral (I65.23: Occlusion and stenosis of bilateral carotid arteries) Chronic. Supportive care. 9. Smoker (F17.200: Nicotine dependence, unspecified, uncomplicated) Recommend cessation. Continue nicotine patch. 10. Hyperlipidemia (E78.5: Hyperlipidemia, unspecified) On Lipitor. 11. Hypertension (I10: Essential (primary) hypertension) Diet controlled. 12. Coronary artery disease (I25.10: Atherosclerotic heart disease of kot[place] coronary artery without angina pectoris) Status post stent. Continue on aspirin and Lipitor. 13. History of cerebrovascular accident (Z86.73: Personal history of transient ischemic attack (TIA), and cerebral infarction without residual deficits) Recent cerebrovascular accident with no deficits. 14. Obesity (E66.9: Obesity, unspecified) Recommend therapeutic lifestyle modification changes. 15. Paroxysmal atrial fibrillation (I48.0: Paroxysmal atrial fibrillation) Rate controlled?status post pacemaker placement. Eliquis temporarily on hold. Cardiology consult pending. Ordered: Consult to Cardiology 16. Pacemaker (Z95.0: Presence of cardiac pacemaker) Stable. 17. On deep vein thrombosis (DVT) prophylaxis (Z79.899: Other long goods drier (current) drug therapy) SCDs. Disposition: Pending gastroenterology evaluation with EGD today and possible colonoscopy in a.m. cardiology consult. I discussed the diagnosis and plan of care with the patient at the bedside. Moderate level of MDM based on addressing above issues. This documentation was transcribed using voice recognition software. Several attempts were made to ensure accuracy. However inadvertent computerized reimbursement counselor errors may be present. Souleymane Buck. Hospitalist. Orders: acetaminophen, 650 mg = 2 tab(s), Tab, Oral, q6hr PRN Pain, Routine, Start date 02/15/23 16:30:00 EDT, 02/15/23 16:30:00 EDT albuterol-ipratropium, 3 mL, Soln-Inh, Inhalation, QID PRN Shortness of breath or wheezing, Routine, Start date 02/15/23 16:44:00 EDT dip (more content not included)... Normal [facility] Comment on above: Result Comment: Elec tronically Signed By: LILI PILLAI, Souleymane\.br\Date and Time Signed: 02/16/23 08:27 EDT [facility] 02-16-2023 # of Units 2 Invalid Interpretation Code [facility] Comment on above: Performed By: #### 1 [id number] ####[facility] [address] [place] [address] Date Required [id number] Invalid Interpretation Code [facility] Comment on above: Performed By: #### 1 [id number] ####[facility] [address] [place] [address] Order to Transfuse Yes Normal [facility] Comment on above: Performed By: #### 1 6235657 ####[facility] [address] [place] [address] Product Type None Required Invalid Interpretation Code [facility] Comment on above: Performed By: #### 1 [id number] ####[facility] [address] [place] [address] Stl Oclt [place] 02-16-2023 Occult Bld Stl Positive Abnormal Negative [facility] Comment on above: Performed By: #### 1 8433683, 57988063, 4640423, 9326619, 08555321 #### [facility] [address] [place] [address] Troponin 9 Hr.on 02-16-2023 Troponin I.cardiac [Mass/Vol] 76.90 pg/mL Abnormal 15.90-38.40 [facility] Comment on above: Result Comment: Crit ical Result verified by previous result\ Critical Result I_hsTnI:76.9 Called to CELI HOFFMANN at 3N by RUMA PINTO and read back for confirmation at 02/16/2023 00:07:43 The 95% CI (Confidence Interval) PPV (Positive Predictive Value) for myocardial infarction in females is 38 pg/mL, in males 51 pg/mL. The results should be used in conjunction with clinical conditions of myocardial infarction. (Access High Sensitivity Troponin I Instructions For Use, [employer], November 2017) Performed By: #### 1 0213455, 76158252, 5365366, 3441872, 52715766 #### [facility] [address] [place] [address] UA With Cult Reflexon 2022 Bacteria LM Ql (Urine sed) TRACE Normal Trace [facility] Comment on above: Performed By: #### 1 5167872, 29238870, 3555729, 3113437, 59779350 #### [facility] [address] [place] [address] Bilirubin Ql (U) Negative Normal Negative [facility] Comment on above: Performed By: #### 1 9804956, 32790647, 5449978, 0419389, 12322254 #### [facility] [address] [place] [address] Clarity (U) CLEAR Normal Clear [facility] Comment on above: Performed By: #### 1 6398390, 36990492, 3531986, 8666825, 04435243 #### [facility] [address] [place] [address] Color (U) YELLOW Normal Yellow [facility] Comment on above: Performed By: #### 1 8130979, 98731265, 3513207, 1400437, 86996399 #### [facility] [address] [place] [address] Epithelial cells.squamous LM.HPF (Urine sed) [#/Area] 0-2 Normal 0-2 [facility] Comment on above: Performed By: #### 1 1880248, 01519255, 6670581, 9420248, 73261983 #### [facility] [address] [place] [address] Glucose Test strip (U) [Mass/Vol] Negative Normal Negative [facility] Comment on above: Performed By: #### 1 7804282, 93635119, 6027152, 9772369, 80592177 #### [facility] [address] [place] [address] Hemoglobin Ql (U) Negative Normal Negative [facility] Comment on above: Performed By: #### 1 1938426, 50111073, 3008038, 1755205, 69777749 #### [facility] [address] [place] [address] Ketones (U) [Mass/Vol] Negative Normal Negative [facility] Comment on above: Performed By: #### 1 4583979, 81908312, 8649499, 3341730, 49302434 #### [facility] [address] [place] [address] Duson.plasma/Lith ium.RBC (Bld) [Mass ratio] 0-3 Normal 0-3 [facility] Comment on above: Performed By: #### 1 2358504, 72712115, 5631770, 5289718, 15208464 #### [facility] [address] [place] [address] Nitrite Ql (U) Negative Normal Negative [facility] Comment on above: Performed By: #### 1 6598359, 36786469, 4468093, 3436524, 12668298 #### [facility] [address] [place] [address] pH (U) 5.0 [pH] Invalid Interpretation Code 5.0-9.0 [facility] Comment on above: Performed By: #### 1 6652002, 21689847, 6418384, 8547039, 08681435 #### [facility] [address] [place] [address] Protein (U) [Mass/Vol] Negative Normal Negative [facility] Comment on above: Performed By: #### 1 0608927, 19243077, 4527675, 0764448, 30184587 #### [facility] [address] [place], [place] [address] Specific gravity (U) [Rel density] 1.015 Invalid Interpretation Code 1.005-1.030 [facility] Comment on above: Performed By: #### 1 5724991, 48028467, 1800275, 0000811, 01642795 #### [facility] [address] [place], [place] [address] Type of Urine collection method Clean Catch Normal [facility] Comment on above: Performed By: #### 1 3603899, 16771034, 7195710, 0067813, 27887447 #### [facility] [address] [place] [address] Urobilinogen Qn (U) 0.2 {Kenroy'U}/dL Normal 0.0-1.0 [facility] Comment on above: Performed By: #### 1 4046294, 42308624, 1128986, 6936814, 63250553 #### [facility] [address] [place] [address] WBC Auto Ql (U) Negative Normal Negative [facility] Comment on above: Performed By: #### 1 1664334, 32689755, 4933933, 4763129, 44282281 #### [facility] [address] [place] [address] WBC LM.HPF (Urine sed) [#/Area] 0-5 Normal 0-5 [facility] Comment on above: Performed By: #### 1 1984877, 36921067, 4764369, 0746715, 68365041 #### [facility] [address] [place] [address] eGFRon 02-16-2023 GFR/1.73 sq M.predicted among non-blacks MDRD (S/P/Bld) [Vol rate/Area] 34 mL/min/1.73 m2 Low >=59 [facility] Comment on above: Order Comment: Order Added by Discern Expert. Result Comment: Prosthodontist/Educator jese kidney disease could be indicated at eGFR's of less than 60 mL/min/1.73m2. Kidney failure is indicated at less than 15 mL/min/1.73m2. Performed By: #### 1 1365815, 10703719, 5311394, 1692401, 42149648 #### [facility] [address] [place] [address] ABO/Rhon 02-15-2023 ABO/Rh Positive Invalid Interpretation Code [facility] Comment on above: Performed By: #### 1 5481045, 34934865, 93388143, 9617499 ####[facility] [address] [place] [address] ABO/Rh History Checkon 02-15 ABO/Rh History Check Type verified by second s Normal [facility] Comment on above: Performed By: #### 1 1649838, 57630951, 36786421, 4064775 ####[facility] [address] [place] [address] ABO/Rh Retypeon 02-15-2023 ABO/Rh Retype Interp Positive Invalid Interpretation Code [facility] Comment on above: Performed By: #### 1 6653552, 00626746, 6858206, 1281242, 18842205 #### [facility] [address] [place] [address] ABSCon 02-15-2023 ABSC Gel Interp Negative Normal [facility] Comment on above: Performed By: #### 1 7491378, 04477963, 57869728, 6096482 ####[facility] [address] [place] [address] Auto Diffon 02-15-2023 Basophils/100 WBC (Bld) 1.6 % Normal 0.0-2.0 [facility] Comment on above: Order Comment: Order Added by Discern Expert. Performed By: #### 1 0597361, 80788508, 3313464, 6048541, 12468122 #### [facility] [address] [place] [address] Basophils/Leukocyte s Auto (Bld) [Pure # fraction] 0.1 E9/L Normal 0.0-0.2 [facility] Comment on above: Order Comment: Order Added by Discern Expert. Performed By: #### 1 4344554, 08528748, 8162831, 5971005, 13634125 #### [facility] [address] [place] [address] Eosinophils/100 WBC (Bld) 2.6 % Normal 0.0-8.0 [facility] Comment on above: Order Comment: Order Added by Discern Expert. Performed By: #### 1 7925829, 11220204, 3385038, 7604457, 24881005 #### [facility] [address] [place] [address] Eosinophils/Leukocy rosanna Auto (Bld) [Pure # fraction] 0.2 E9/L Normal 0.0-0.5 [facility] Comment on above: Order Comment: Order Added by Discern Expert. Performed By: #### 1 1432306, 02736147, 1191347, 3595864, 00837766 #### [facility] [address] [place] [address] Lymphocytes/100 WBC (Bld) 17.0 % Normal 14.0-50.0 [facility] Comment on above: Order Comment: Order Added by Discern Expert. Performed By: #### 1 6613150, 82143078, 0577357, 0276414, 57742664 #### [facility] [address] [place] [address] Lymphocytes/Leukocy rosanna Auto (Bld) [Pure # fraction] 1.2 E9/L Normal 1.0-4.0 [facility] Comment on above: Order Comment: Order Added by Discern Expert. Performed By: #### 1 9935738, 05667218, 8927082, 2812451, 36183108 #### [facility] [address] [place] [address] Monocytes/100 WBC (Bld) 14.0 % Normal 4.0-14.0 [facility] Comment on above: Order Comment: Order Added by Discern Expert. Performed By: #### 1 7363040, 05530384, 5583360, 0635918, 82922118 #### [facility] [address] [place] [address] Monocytes/Leukocyte s Auto (Bld) [Pure # fraction] 1.0 E9/L Normal 0.2-1.0 [facility] Comment on above: Order Comment: Order Added by Discern Expert. Performed By: #### 1 0762710, 54345851, 4606250, 3382205, 68827791 #### [facility] [address] [place] [address] Neutrophils/100 WBC (Bld) 64.8 % Normal 36.0-75.0 [facility] Comment on above: Order Comment: Order Added by Discern Expert. Performed By: #### 1 5530421, 72742765, 0952306, 7893022, 39696452 #### [facility] [address] [place] [address] Neutrophils/Leukocy rosanna Auto (Bld) [Pure # fraction] 4.6 E9/L Normal 2.0-7.5 [facility] Comment on above: Order Comment: Order Added by Discern Expert. Performed By: #### 1 2745393, 63909197, 6487069, 6147826, 38868498 #### [facility] [address] [place] [address] BMPon 02-15-2023 Creatinine [Mass/Vol] 1.9 mg/dL High 0.5-1.3 [facility] Comment on above: Performed By: #### 1 8578128, 64957047, 4985016, 0402421, 70816236 #### [facility] [address] [place] [address] Urea nitrogen [Mass/Vol] 33 mg/dL High 5-21 [facility] Comment on above: Performed By: #### 1 0149594, 64760378, 8009897, 5745889, 71486427 #### [facility] [address] [place] [address] Urea nitrogen/Creatinine [Mass ratio] 17 No Units Normal 10-20 [facility] Comment on above: Performed By: #### 1 9839753, 03309497, 0183674, 7005894, 02319166 #### [facility] [address] [place] [address] Anion gap [Moles/Vol] 11 mmol/L Normal 6-16 [facility] Comment on above: Performed By: #### 1 0350824, 25523849, 7783309, 0610827, 21931117 #### [facility] [address] [place] [address] Calcium [Mass/Vol] 8.3 mg/dL Low 8.9-11.1 [facility] Comment on above: Performed By: #### 1 2886859, 42366488, 8932668, 9019035, 81875194 #### [facility] [address] [place] [address] Chloride [Moles/Vol] 107 mmol/L Normal 101-111 [facility] Comment on above: Performed By: #### 1 0566347, 56174741, 5251685, 8615190, 15547960 #### [facility] [address] [place] [address] CO2 [Moles/Vol] 21 mmol/L Normal 21-31 [facility] Comment on above: Performed By: #### 1 0898289, 30540773, 1052195, 9635413, 12899730 #### [facility] [address] [place] [address] Glucose [Mass/Vol] 117 mg/dL Normal 55-199 [facility] Comment on above: Result Comment: If t his glucose result represents a fasting glucose, interpretation should refer to the following reference range: 55-99 mg/dL Performed By: #### 1 2380313, 36292893, 0576120, 6741492, 05378899 #### [facility] [address] [place] [address] Potassium [Moles/Vol] 3.6 mmol/L Normal 3.5-5.3 [facility] Comment on above: Performed By: #### 1 8815174, 92407040, 9341297, 5281929, 16941438 #### [facility] [address] [place] [address] Sodium [Moles/Vol] 135 mmol/L Normal 135-145 [facility] Comment on above: Performed By: #### 1 5050020, 21364643, 8582705, 2003478, 10693154 #### [facility] [address] [place] [address] Blood Bank ID#on 02-15-2023 BBID# [id number] Invalid Interpretation Code [facility] Comment on above: Performed By: #### 1 8148283, 16253563, 62159772, 1810102 ####[facility] [address] [place] [address] CBC w/ Auto Diffon 3 Erythrocyte distribution width (RBC) [Ratio] 24.0 % High 10.9-14.2 [facility] Comment on above: Performed By: #### 1 9658276, 61244249, 6139539, 2485474, 75507908 #### [facility] [address] [place] [address] Hematocrit (Bld) [Volume fraction] 16.3 % Low 37.7-49.0 [facility] Comment on above: Performed By: #### 1 6739074, 30802434, 6049356, 7960444, 89039211 #### [facility] [address] [place] [address] Hemoglobin (Bld) [Mass/Vol] 4.7 g/dL Abnormal 13.5-17.5 [facility] Comment on above: Result Comment: Resu lts Called To Huong Parsons By [facility]_ And Read Back For Confirmation On 02/15/2023 14:54:48 EDT Results Verified By Repeat Analysis_. Performed By: #### 1 9401715, 19011178, 7036158, 5355430, 97306044 #### [facility] [address] [place] [address] MCH (RBC) [Entitic mass] 19.7 pg Low 27.0-34.0 [facility] Comment on above: Performed By: #### 1 1525826, 80902259, 0020138, 6397715, 65376342 #### [facility] [address] [place] [address] MCHC (RBC) [Mass/Vol] 28.8 g/dL Low 31.4-36.0 [facility] Comment on above: Performed By: #### 1 8207724, 00630513, 7724265, 6760057, 00977311 #### [facility] [address] [place] [address] MCV (RBC) [Entitic vol] 68.6 fL Low 80.0-100.0 [facility] Comment on above: Performed By: #### 1 0138280, 55049932, 1213385, 8609171, 38555618 #### [facility] [address] [place] [address] Platelet mean volume (Bld) [Entitic vol] 9.3 fL Normal 6.4-10.8 [facility] Comment on above: Performed By: #### 1 9289077, 35177761, 7555443, 7306401, 58313070 #### [facility] [address] [place] [address] Platelets (Bld) [#/Vol] 273.0 E9/L Normal 150.0-500.0 [facility] Comment on above: Performed By: #### 1 0995276, 66401286, 0647128, 5329593, 12931459 #### [facility] [address] [place] [address] RBC (Bld) [#/Vol] 2.4 E12/L Low 4.3-5.9 [facility] Comment on above: Performed By: #### 1 9509370, 61597352, 8527267, 7085887, 95542026 #### [facility] [address] [place] [address] WBC corrected for nucl RBC Auto (Bld) [#/Vol] 7.0 E9/L Normal 4.0-11.0 [facility] Comment on above: Performed By: #### 1 1940180, 21659899, 5210871, 0619008, 52277916 #### [facility] [address] [place] [address] Consent for Treatmenton 01-20 Consent for Treatment [id number] IFF Normal [facility] ED Clinical Summaryon 2022 ED Clinical Summary (Inserted Image. Deborah ble to display) [address] [address] ED Clinical Summary Person Information Name: THANH COLEMNA/[facility] Age: 87 Years : 1935 Sex: Male Language: Samoan PCP: Nanci Jarvis MD Marital Status: Phone: [phone] Visit Id: Visit Reason: Tachycardia; Weakness or fatigue; poss asthenia Speciality: Acuity: 2 Enc Type: Emergency Med Service: Emergency Arrival: 02/15/2023 13:33:36 Discharge: LOS: 000 02:32 Checkin: 02/15/2023 13:33:36 Checkout: 02/15/2023 16:05:17 Dispo Type: Admitted as IP to this Hosp EVENTS: Event Name Event Status Request Date/Time Start Date/Time Complete Date/Time Arrive Complete 02/15/2023 13:33:36 02/15/2023 13:33:36 02/15/2023 13:33:36 Document Home Meds Request 02/15/2023 13:33:36 Triage Complete 02/15/2023 13:33:36 02/15/2023 13:49:19 02/15/2023 13:49:19 Registration Complete 02/15/2023 13:39:40 02/15/2023 13:39:40 02/15/2023 13:39:40 Reg Complete Request 02/15/2023 13:39:40 Reg Bed Request Complete 02/15/2023 13:39:40 02/15/2023 13:39:40 02/15/2023 13:39:40 Bed Assign Complete 02/15/2023 13:42:34 02/15/2023 13:42:34 02/15/2023 13:42:34 Dr Exam Complete 02/15/2023 13:42:34 02/15/2023 13:44:26 02/15/2023 13:44:26 RN Exam Complete 02/15/2023 13:42:34 02/15/2023 15:39:36 02/15/2023 15:39:36 Registration Request 02/15/2023 13:44:26 Dr Exam Complete 02/15/2023 13:44:51 02/15/2023 13:44:51 02/15/2023 13:44:51 EKG Complete 02/15/2023 13:48:36 02/15/2023 13:56:30 Meds Admin Request 02/15/2023 13:58:09 Pending Labs Request 02/15/2023 13:58:09 Lab Request 02/15/2023 13:58:09 Urine Collect Request 02/15/2023 13:58:09 X-Ray Complete 02/15/2023 13:58:09 02/15/2023 14:22:03 02/15/2023 14:33:46 Pending Labs Complete 02/15/2023 14:13:46 02/15/2023 14:13:46 02/15/2023 14:41:49 Lab Complete 02/15/2023 14:13:46 02/15/2023 14:13:46 02/15/2023 14:41:49 Pending Labs Complete 02/15/2023 14:28:24 02/15/2023 15:31:46 Lab Complete 02/15/2023 14:28:24 02/15/2023 15:31:46 Wet Read Complete 02/15/2023 14:33:46 02/15/2023 14:34:03 02/15/2023 14:34:03 Pending Labs Complete 02/15/2023 14:54:54 02/15/2023 14:54:54 02/15/2023 15:31:46 Pending Labs Complete 02/15/2023 14:54:55 02/15/2023 14:54:55 02/15/2023 15:31:53 Lab Complete 02/15/2023 14:54:55 02/15/2023 14:54:55 02/15/2023 15:31:53 Consult Request 02/15/2023 15:16:38 Meds Admin Request 02/15/2023 15:16:51 Pending Labs Inlab 02/15/2023 15:16:51 02/15/2023 15:16:51 Blood Collect Request 02/15/2023 15:16:51 02/15/2023 15:16:51 Patient Care Request 02/15/2023 15:16:51 Hospitalist Consult Request 02/15/2023 15:16:51 Bed Request Request 02/15/2023 15:24:45 Reg Bed Request Request 02/15/2023 15:24:45 Admit Request 02/15/2023 15:24:45 Meds Admin Complete 02/15/2023 15:26:49 02/15/2023 15:36:37 Pending Labs Inlab 02/15/2023 15:31:53 02/15/2023 15:31:53 Pending Labs Complete 02/15/2023 15:56:40 02/15/2023 15:56:40 02/15/2023 15:56:40 Pending Labs Complete 02/15/2023 15:58:21 02/15/2023 15:58:21 02/15/2023 15:58:21 Inpatient Bed Ready Complete 02/15/2023 16:05:17 02/15/2023 16:05:17 02/15/2023 16:05:17 ADDRESS: [address] [place] [phone] PHYS DOC NOTES: MEDICAL INFORMATION: Prescriptions Given: Medications to Continue with No Changes Other Medications apixaban (Eliquis 2.5 mg oral tablet) 1 Tablets By Mouth 2 times a day. Refills: 5. aspirin (aspirin 81 mg Oral EC Tab) 1 Tablets By Mouth every day. atorvastatin (atorvastatin 40 mg Tab) 1 Tablets By Mouth every day. Refills: 5. cholecalciferol (Vitamin D3 2000 intl units oral Tab) 50 Microgram By Mouth every day. ezetimibe (ezetimibe 10 mg Tab) 1 Tablets By Mouth every day. fenofibrate (fenofibrate 54 mg oral tablet) 1 Tablets By Mouth every day. furosemide (furosemide 20 mg Tab) 1 Tablets By Mouth every day as needed Edema. nitroglycerin (nitroglycerin 0.4 mg sublingual Tab) 1 Tablets Sublingual every 5 minutes as needed for chest pain. pantoprazole (Pantoprazole [address] Tab) 1 Tablets By Mouth every day. Refills: 5. PATIENT EDUCATION INFORMATION: Instructions: Follow up: DIAGNOSIS: SUMMER (acute kidney injury); Abnormal cardiac enzyme level; Anemia; Dyspnea; GI bleed Normal [facility] ED Note-Physicianon 02-16-20 23 ED Note-Physician Basic Information Time Seen: Stefan Grimm DO 02/15/2023 13:44 Chief Complaint patient c/o generalized weakness and fatigue that started a few weeks ago and has gotten worse over the past few days. denies chest pain or SOB. hx afib. pt appears pale and easily fatigued. denies blood in stool History of Present Illness Thanh Coleman is a 87 y/o M with PMHx of Afib, COPD, CKD, and recent stroke in November 2022 presenting for worsening weakness, fatigue, and SOB x2 weeks. His daughter is present in the room, she states she received a call from his [place] [facility] facility that he is having worsening weakness and SOB especially when walking. States he is not able to keep his balance. Thanh states that he feels worn out . 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 He has history of Afib, daughter states he has been in Afib for a while now. He denies chest pain, radiating pain, headaches, fever, chills, and abd pain. He does have a cough, but believes this is from smoking. He does not use oxygen at home. Daughter also notes he is developing signs of dementia. Further questioning: Patient does take Eliquis for his history of A-fib. He is denying any sources of bleeding no bloody stools but after specific questioning he did state that he had some black stools today. No history of GI bleed no history of blood transfusion required. Review of Systems Constitutional: no fever, no chills, no sweats, moderate weakness Skin: no Jaundice, no rash, no lesions, nopetechiae Respiratory: mild shortness of breath, chronic mild cough, no orthopnea, no wheezing Cardiovascular: no chest pain, no palpitations, no edema Gastrointestinal: no nausea, no vomiting, no diarrhea, no GI bleeding Genitourinary: no dysuria, no hematuria, no discharge, no pain Musculoskeletal: no back pain, no trauma Neurologic: no headache, no dizziness, no numbness, mild weakness Allergy/Immunologic: no seasonal allergies, no food allergies, no recurrent infections, no impaired immunity Additional ROS info: Except as noted in the above Review of Systems and in the History of Present Illness all other systems have been reviewed and are negative or noncontributory. Physical Exam Vitals & Measurements T: 36.5 ?C(Oral) HR: 116(Peripheral) RR: 20 BP: 128/74 SpO2: 100% HT: 175 cm WT: 93 kg BMI: 30.37 General: alert, no acute distress Skin: warm, dry moderate to severe pallor Head: no trauma, normocephalic Neck: Trachea midline, no adenopathy, no tenderness Eye: normal conjunctiva, sclera clear Cardiovascular: +tachycardia, irregular rhythm (known Afib), normal peripheral perfusion Respiratory: Lungs CTA, respirations non labored Chest wall: no deformity. Gastrointestinal: soft, non distended, no tenderness, no guarding. Neurological: Alert and oriented, LOC appropriate for age, speech normal Psychiatric: cooperative, affect appropriate for age, Medical Decision Making Work-up in the ER has been reviewed and noted. Patient is found to have anemia with hemoglobin of 4.5. Blood transfusion is ordered here. Chest x-ray does reveal bilateral atelectasis versus infiltrate. He reports no cough or fever with this. Case discussed with hospitalist patient is admitted for additional evaluation and treatment. Critical care time 30 minutes exclusive from separate billable procedures I, Dr. Grimm had a [id number] interaction with the patient. I personally performed a physical exam and medical decision making. I have verified the documentation by the student as accurately representing the information obtained. Assessment/Plan Abnormal cardiac enzyme level (R74.8: Abnormal levels of other serum enzymes) SUMMER (acute kidney injury) (N17.9: Acute kidney failure, unspecified) Anemia (D64.9: Anemia, unspecified) Dyspnea (R06.00: Dyspnea, unspecified) GI bleed (K92.2: Gastrointestinal hemorrhage, unspecified) Orders: Sodium Chloride 0.9% intravenous solution 1,000 mL, 1,000 mL, IV, 20 mL/hr, STAT, Start date 02/15/23 13:57:00 EDT, 50 hour(s), Total volume (mL): 1,000, 93 kg, 2.13, m2 Sodium Chloride 0.9% intravenous solution 500 mL, 500 mL, IV, 20 mL/hr, PRN Other (see comment), STAT, Start date 02/15/23 15:16:00 EDT, 25 hour(s), Total volume (mL): 500, 93 kg, 2.13, m2 ABO/Rh ABO/Rh History Check Antibody Screen Automated Diff Basic Metabolic Panel Blood Bank ID# CBC w/ Auto Diff ED Physician consult Hospitalist for continued care eGFR Hepatic Function Panel Morphology PT & PTT Red Cell Order Troponin 0 Hr. Troponin 3 Hr. Troponin 6 Hr. Troponin 9 Hr. UA With Cult Reflex XR Chest Single View Disposition Plan Discharge Prescription List Prescriptions No active prescription medications Follow-up No qualifying data available Problem List/Past Medical History Ongoing Carotid stenosis, bilateral Historical No qualifying data Procedure/Surgical History (more content not included)... Normal [facility] Comment on above: Result Comment: Elec tronically Signed By: Yamileth Chang\.br\Date and Time Signed: 02/15/23 14:36 EDT\.br\Electronically Co-Signed By: Stefan Grimm DO\.br\Date and Time Co-Signed: 02/15/23 15:19 EDT ED Patient Education Noteon 02-15-2023 ED Patient Education Note Normal [facility] ED Patient Summaryon 023 ED Patient Summary (Inserted Image. Deborah ble to display) [place] [id number] Patient Discharge Instructions Person Information Name: THANH COLEMAN Age: 87 Years Arrival Date: 02/15/2023 13:33:36 Discharge Diagnosis: SUMMER (acute kidney injury); Abnormal cardiac enzyme level; Anemia; Dyspnea; GI bleed Primary Care Physician: Nanci Jarvis MD Provider Information Primary Provider: Stefan Grimm DO Advanced Entertainment Dancer:None The exam and treatment you received in the Emergency Department were for an urgent problem and are not intended as complete care. It is important that you follow up with a doctor, nurse practitioner, or physician?s permit review assistant for ongoing care. If your symptoms become worse or you do not improve as expected and you are unable to reach your usual health care provider, you should return to the Emergency Department. We are available 24 hours a day. THANH COLEMAN has been given the following list of patient education materials, prescriptions and follow-up instructions: Follow-up Instructions: In the event that this physician does not participate in your insurance network, please consult with your insurance company to find a nearby participating provider. Patient Education Materials: A MESSAGE TO ALL PATIENTS REGARDING OPIOIDS PRESCRIPTION OPIOIDS: WHAT YOU NEED TO KNOW Prescription opioids can be used to help relieve hguqocfv-fo-jcymgk pain and are often prescribed following a surgery or injury, or for certain health conditions. These medications can be an important part of the treatment but also come with serious risks. It is important to work with your healthcare provider to make sure you are getting the safest, most effective care. WHAT ARE THE RISKS AND SIDE EFFECTS OF OPIOID USE? Prescription opioids carry serious risks of addiction and overdose, especially with prolonged use. An opioid overdose, often marked by slowed breathing, can cause sudden . The use of prescription opioids can have a number of side effects as well, even when taken as directed: ? Tolerance?meaning you might need to take more of the medication for the same pain relief ? Physical dependence?meaning you have symptoms of withdrawal when a medication is stopped ? Increased sensitivity to pain ? Constipation ? Nausea, vomiting, and dry mouth ? Sleepiness and dizziness ? Confusion ? Depression ? Low levels of testosterone that can result in lower sex drive, energy, and strength ? Itching and sweating RISKS ARE GREATER WITH: ? History of drug misuse, substance use disorder, or overdose ? Mental health conditions (such as depression or anxiety) ? Sleep apnea ? Older age (65 years and older) ? Avoid alcohol while taking prescription opioids. Also, unless specifically advised by your health care provider, medications to avoid include: ? Benzodiazepines (such as Xanax or Valium) ? Muscle relaxants (such as Soma or Flexeril) ? Hypnotics (such as Ambien or Lunesta) ? Other prescription opioids KNOW YOUR OPTIONS Talk to your health care provider about ways to manage your pain that don?t involve prescription opioids. Some of these options may actually work better and have fewer risks and side effects. Options may include: ? Pain relievers such as acetaminophen, ibuprofen, and naproxen ? Some medication that are also used for depression or seizures ? Physical therapy and exercise ? Cognitive behavioral therapy, a psychological, goal-directed approach, in which patients learn how to modify physical, behavioral, and emotional triggers of pain and stress. IF YOU ARE PRESCRIBED OPIOIDS FOR PAIN: ? Never take opioids in greater amounts or more often than prescribed. ? Follow up with your primary health care provider. o Work together to create a plan on how to manage your pain. o Talk about ways to help manage your pain that don?t involve prescription opioids. o Talk about any and all concerns and side effects. ? Help prevent misuse and abuse o Never sell or share prescription opioids. o Never use another person?s prescription opioids. ? Store prescription opioids in a secure place and out of reach of others (this may include visitors, children, friends, and family). ? Safely dispose of unused prescription opioids: Find your community drug take-back program or your pharmacy mail-back program, or flush them down the toilet, following guidance from the Food and Drug Administration (www.fda.gov/Drugs/Reso urcesForYou). ? Visit www.cdc.gov/drugoverdos e to learn about the risks of opioids abuse and overdose. ? If you believe you may be struggling with addiction, tell your health post acute care registered nurse and ask for guidance or call [facility]?S National Helpline at 1-180-677-SDCM. s Source: [place] Department of Health and Human Services/Center for Disease Control & Prevention [facility] (more content not included)... Normal [facility] Hep Func Panelon 02-15-2023 Albumin [Mass/Vol] 3.5 g/dL Normal 3.3-5.0 [facility] Comment on above: Performed By: #### 1 [id number], [id number], 0657238, 8296315, [id number] #### [facility] [address] [place] [address] Albumin/Globulin (S) [Mass conc ratio] 1.0 Low 1.1-2.2 [facility] Comment on above: Performed By: #### 1 [id number], [id number], 0478124, 4641925, [id number] #### [facility] [address] [place] [address] ALP [Catalytic activity/Vol] 59 Int._Unit/L Normal 21-98 [facility] Comment on above: Performed By: #### 1 [id number], 44798968, 9007439, 7192744, [id number] #### [facility] [address] [place] [address] ALT No additional P-5'-P [Catalytic activity/Vol] 117 Int._Unit/L High 6-46 [facility] Comment on above: Performed By: #### 1 [id number], [id number], 5450902, 7497296, 58943956 #### [facility] [address] [place] [address] AST [Catalytic activity/Vol] 173 Int._Unit/L High 5-43 [facility] Comment on above: Performed By: #### 1 [id number], 86205323, 8466150, 7715406, 51888846 #### [facility] [address] [place] [address] Bilirubin [Mass/Vol] 0.8 mg/dL Normal 0.0-1.1 [facility] Comment on above: Performed By: #### 1 4570887, 80428662, 8962362, 1624641, 93380368 #### [facility] [address] [place] [address] Bilirubin.direct [Mass/Vol] 0.2 mg/dL Normal 0.1-0.4 [facility] Comment on above: Performed By: #### 1 1999192, 33474345, 1340784, 0656699, 92403249 #### [facility] [address] [place] [address] Bilirubin.indirect [Mass or moles/Vol] 0.6 mg/dL Normal 0.1-0.9 [facility] Comment on above: Performed By: #### 1 7683409, 18205118, 7757806, 7151807, 58371274 #### [facility] [address] [place] [address] Globulin (S) [Mass/Vol] 3.5 g/dL Normal 1.4-4.0 [facility] Comment on above: Performed By: #### 1 7150663, 63850330, 0690292, 9964589, 27221332 #### [facility] [address] [place] [address] Protein [Mass/Vol] 7.0 g/dL Normal 6.0-7.8 [facility] Comment on above: Performed By: #### 1 1843775, 50751730, 1277139, 0927997, 30307870 #### [facility] [address] [place] [address] Monitor Recordon 02-15-2023 Monitor Record [id number]#1.00 TIFF Normal [facility] Monitor Record [id number]#1.00 TIFF Normal [facility] Morphon 02-15-2023 Anisocytosis Ql (Bld) Present Normal [facility] Comment on above: Order Comment: Order Added by Discern Expert. Performed By: #### 1 [id number], 13130237, 6629111, 9350131, 57122568 #### [facility] [address] [place] [address] Hypochromia Auto Ql (Bld) Present Normal [facility] Comment on above: Order Comment: Order Added by Discern Expert. Performed By: #### 1 3937546, 20956072, 1202199, 8015088, 24848533 #### [facility] [address] [place] [address] Microcytes Ql (Bld) Present Normal [facility] Comment on above: Order Comment: Order Added by Discern Expert. Performed By: #### 1 [id number], 45610733, 4727281, 6852910, 76856131 #### [facility] [address] [place] [address] Morphology Jose (Bld) [Interp] See Morphology Normal [facility] Comment on above: Order Comment: Order Added by Discern Expert. Performed By: #### 1 8625132, 91195342, 1528494, 4297079, 48840134 #### [facility] [address] [place] [address] Polychromasia LM Ql (Bld) Present Normal [facility] Comment on above: Order Comment: Order Added by Discern Expert. Performed By: #### 1 [id number], 01239241, 3312986, 9701629, 06471109 #### [facility] [address] [place] [address] Correction Recordson 02-15 Correction Records [id number]#1.00TIF F Normal [facility] PT & PTTon 02-15-2023 aPTT Coag (PPP) [Time] 35.2 second(s) Normal 25.1-36.5 [facility] Comment on above: Result Comment: Para meter 15 days - 4 weeks 1 - 5 months 6 - 11 months 1 - 5 years 6 - 10 years 11 - 17 years PTT Mean: 35.4 (27.6-45.6) Mean: 33.5 (24.8-40.7) Mean: 32.4 (25.1-40.7) Mean: 31.6 (24.0-39.2) Mean: 31.6 (26.9-38.7) Mean: 31.0 (24.6-38.4) Pediatric Reference ranges were obtained from a study by giacomo Wetzel. prepared from 1437 samples obtained at 7 different centers using the same coagulation reagent and instrumentation as [facility]. Currently there are no coagulation studies available worldwide for children to 14 days, and no normal ranges. Heparin therapeutic range (represented by Anti-Factor Xa activity of 0.2 - 0.4 U/mL) corresponds to PTT of 56.6 - 109.0 sec. Performed By: #### 1 [id number], 33374883, 1194121, 2514111, 78849523 #### [facility] [address] [place] [address] INR Coag (PPP) [Relative time] 2.0 {INR} Invalid Interpretation Code [facility] Comment on above: Result Comment: INR results are specifically intended to assess patients stabilized on long-term Anticoagulation therapy suggested INR?s ?Less Intensive Anticoagulation? 2.0 ? 3.0 Conventional Range 3.0 ? 4.5 Performed By: #### 1 3924001, 42764633, 9294092, 8342690, 36751354 #### [facility] [address] [place] [address] PT Coag (PPP) [Time] 23.3 second(s) High 9.4-12.5 [facility] Comment on above: Result Comment: 15 d ays - 4 weeks 1 - 5 months 6 -11 months 1- 5 years 6-10 years 11 -17 years Mean: 11.2 (9.5-12.6) Mean: 11.0 (9.7-12.8) Mean: 11.0 (9.8-13.0) Mean: 11.3 (9.9-13.4) Mean: 11.7 (10.0-14.6) Mean: 11.8 (10.0 - 14.1) Pediatric Reference ranges were obtained from a study by Jose Antonio Loyalton, et al. prepared from 1437 samples obtained at 7 different centers using the same coagulation reagent and instrumentation as [facility]. Currently there are no coagulation studies available worldwide for children to 14 days, and no normal ranges. Performed By: #### 1 [id number], 56171382, 0209026, 5641382, 41351181 #### [facility] [address] [place] [address] RCOon 02-15-2023 # of Units 2 Invalid Interpretation Code [facility] Comment on above: Performed By: #### 1 [id number] ####[facility] [id number] [place] [address] Date Required [id number] Invalid Interpretation Code [facility] Comment on above: Performed By: #### 1 [id number] ####[facility] [id number] [place] [address] Order to Transfuse Yes Normal [facility] Comment on above: Performed By: #### 1 9866530 ####[facility] [id number] [place] [address] Product Type None Required Invalid Interpretation Code [facility] Comment on above: Performed By: #### 1 [id number] ####[facility] [id number] [place] [address] Troponin 0 Hr.on 02-15-2023 Troponin I.cardiac [Mass/Vol] 61.10 pg/mL Abnormal 15.90-38.40 [facility] Comment on above: Result Comment: Crit ical Result I_hsTnI:61.1 Called to CRUZITO DELVALLE at ER by PEEWEE CARLISLE and read back for confirmation at 02/15/2023 15:10:47\Critical Result verified by repeat analysis The 95% CI (Confidence Interval) PPV (Positive Predictive Value) for myocardial infarction in females is 38 pg/mL, in males 51 pg/mL. The results should be used in conjunction with clinical conditions of myocardial infarction. (Access High Sensitivity Troponin I Instructions For Use, Candice Denton, November 2017) Performed By: #### 1 [id number], 44243895, 9520475, 3946385, [id number] #### [facility] [address] [place] [address] Troponin 3 Hr.on 02-15-2023 Troponin I.cardiac [Mass/Vol] 68.40 pg/mL Abnormal 15.90-38.40 [facility] Comment on above: Order Comment: Pt mo penelope to 305. Tape Rules Printing Machine Operator on the floor has been notified, [id number] 02/15/2023 16:08:43 EDT Result Comment: Crit ical Result I_hsTnI:68.4 Called to CRUZITO GERBER at 3N by PEEWEE CARLISLE and read back for confirmation at 02/15/2023 17:37:12\Critical Result verified by previous result The 95% CI (Confidence Interval) PPV (Positive Predictive Value) for myocardial infarction in females is 38 pg/mL, in males 51 pg/mL. The results should be used in conjunction with clinical conditions of myocardial infarction. (Access High Sensitivity Troponin I Instructions For Use, [employer], November 2017) Performed By: #### 1 [id number], 05386494, 7656986, 1145298, 89450089 #### [facility] [address] [place] [address] Troponin 6 Hr.on 02-15-2023 Troponin I.cardiac [Mass/Vol] 68.90 pg/mL Abnormal 15.90-38.40 [facility] Comment on above: Result Comment: Crit ical Result I_hsTnI:68.9 Called to DYLON BRITO at 3S by PEEWEE CARLISLE and read back for confirmation at 02/15/2023 20:25:58\Critical Result verified by previous result The 95% CI (Confidence Interval) PPV (Positive Predictive Value) for myocardial infarction in females is 38 pg/mL, in males 51 pg/mL. The results should be used in conjunction with clinical conditions of myocardial infarction. (Access High Sensitivity Troponin I Instructions For Use, [employer], November 2017) Performed By: #### 1 [id number] #### [facility] [address] [place] [address] XR Chest Single Viewon 02-15 XR Chest Single View Exam Date/Time: 02/15/2023 14:33 EDT Reason for Exam: Shortness of breath (SOB) Report IMPRESSION: Areas of patchy opacity versus atelectasis. Coarsened interstitial lung markings, which could be chronic or seen with interstitial pulmonary edema. EXAMINATION: XR Chest Single View Clinical History: Shortness of breath (SOB) weakness. Comparison: None RESULT: Areas of patchy opacity versus atelectasis, especially at the right lung base. Coarsened interstitial lung markings. Possible trace left pleural effusion versus pleural thickening. No pneumothorax. Borderline enlarged cardiomediastinal silhouette, accentuated by technique. Aortic vascular calcifications. No distinct acute osseous findings. Left-sided pacemaker. Ordering Provider: Stefan Grimm FINAL REPORT Dictated: 02/15/2023 3:22 pm Johnny Roebrts MD. Signed (Electronic Signature): 02/15/2023 3:22 pm Signed by: Johnny oRberts MD Transcribed by: ADELAIDE Technologist: KAYLIE Technical Comments Radiation Dose: Ka,r in mGy = na DAP = na Normal [facility] eGFRon 02-15-2023 GFR/1.73 sq M.predicted among non-blacks MDRD (S/P/Bld) [Vol rate/Area] 34 mL/min/1.73 m2 Low >=59 [facility] Comment on above: Order Comment: Order added by Discern Expert. Result Comment: Prosthodontist/Educator jese kidney disease could be indicated at eGFR's of less than 60 mL/min/1.73m2. Kidney failure is indicated at less than 15 mL/min/1.73m2. Performed By: #### 1 [id number] #### [facility] [address] [place] [address] Consent for Treatmenton 01-20 Consent for Treatment [id number]#1.00T IFF Normal [facility] Heart and Vascular Office/Cl inic Noteon 02-11-2023 Heart and Vascular Office/Clinic Note History of Present Illness Patient is a very pleasant 87-year-old nondiabetic current smoker of approximately 75 pack years, with chronic kidney deficiency stage III, COPD, coronary disease status post cardiac stents although he cannot recall where or when, status post open AAA repair, chronic atrial fibrillation on Eliquis therapy, status post pacemaker placement. The patient was recently admitted to [facility] in [place] after being transferred from [facility] in the [facility] after presenting with new onset left-sided facial droop. Patient was found to have a CVA, and CT of his carotids demonstrated bilateral carotid stenosis of approximately 70%. Patient was treated with Eliquis and aspirin and subsequently discharged. He used to live in the [facility] but recently relocated back up to this area to be with his daughters and 4 assisted living. Patient underwent 2D echo with Doppler on 01/24/2023 with the following results: (01/24/2023 16:10 EDT Echo Transthoracic Complete) Interpretation Summary Ejection Fraction = 60-65%. Normal LV and RV. Pacemaker in RV. No significant valve disease. Mild PA hypertension. Pseudonormal diastolic filling pattern. Dilated aorta. [1] Patient is now here in follow-up. From a cardiac standpoint he denies any chest pain, angina, but does complain of worsening fatigue, tiredness, and dyspnea on exertion. Patient looks slightly pale and today's visit. He is compliant with his medications. He has had no presyncope or syncopal episodes. Patient claims that he had an echocardiogram in [facility] but he does not have that included in his paperwork today. Unfortunately he continues to smoke. In our office today's blood pressure is 126/64 and pulse is 88 and irregular. Physical exam demonstrates 2+ carotid upstroke with bilateral carotid bruits, regular rate and rhythm, normal S1/S2, no S3, S4 or murmurs are noted, he has no edema. Lipids dated 01/04/2023 show an HDL 35 and LDL of 44. EKG dated 01/03/2023 shows background atrial fibrillation with paced ventricular response and PAC. [1] Review of Systems Constitutional: no fever, no chills, no weakness, no fatigue Respiratory: no shortness of breath, no cough, no orthopnea, no wheezing Cardiovascular: no chest pain, no palpitations, no edema Neuro: no dizziness no light headed no syncope Additional ROS info: Except as noted in the above Review of Systems and in the History of Present Illness all other systems have been reviewed and are negative or noncontributory. Physical Exam General: alert, no acute distress Neck: Supple, noJVD nocarotid bruit Cardiovascular: regular rate and rhythm, no murmur normal peripheral perfusion Respiratory: Lungs CTA, respirations non labored Extremities: no edema Neurological: oriented x 4, LOC appropriate for age, sensation equal & normal bilaterally, speech normal Skin: Warm, dry, intact- no rash or concerning lesions Assessment/Plan 1. Dyspnea on exertion: I am concerned the patient may have undiagnosed coronary artery disease, would recommend he undergo a Lexiscan/MPI. In addition he will undergo a CBC today to determine if he has anemia as he appears to be somewhat pale on today's visit. In addition he is on Eliquis therapy. If this is grossly abnormal, the patient may require diagnostic coronary angiogram. 2. Hyperlipidemia: His LDL and HDL cholesterol are fairly well controlled. Continue antilipid therapy. 3. Atrial fibrillation: Patient's heart rate is fairly well controlled. We will check a CBC today to ensure he is not anemic. Continue Eliquis therapy. His heart rate is fairly well controlled. He does have a pacemaker. 4. Return office with Dr. Villeda in 1 month. Follow-up No qualifying data available Problem List/Past Medical History Ongoing Carotid stenosis, bilateral Historical No qualifying data Procedure/Surgical History Cardiac pacemaker. Medications aspirin 81 mg Oral EC Tab, 81 mg= 1 tab(s), Oral, Daily atorvastatin 40 mg Tab, 40 mg= 1 tab(s), Oral, Daily, 5 refills Eliquis 2.5 mg oral tablet, 2.5 mg= 1 tab(s), Oral, BID, 5 refills ezetimibe 10 mg Tab, 10 mg= 1 tab(s), Oral, Daily fenofibrate 54 mg oral tablet, 54 mg= 1 tab(s), Oral, Daily furosemide 20 mg Tab, 20 mg= 1 tab(s), Oral, Daily, PRN nitroglycerin 0.4 mg sublingual Tab, 0.4 mg= 1 tab(s), SubLingual, q5min, PRN Pantoprazole [address] Tab, 40 mg= 1 tab(s), Oral, Daily, 5 refills Vitamin D3 2000 intl units oral Tab, 50 mcg, Oral, Daily Allergies No Known Medication Allergies Social History Alcohol - Denies Alcohol Use, 12/24/2022 Substance Abuse - Denies Substance Abuse, 12/24/2022 Tobacco 10 or more cigarettes (1/2 pack or more)/day in last 30 days Tobacco Use:. Never Smokeless Tobacco Use:. Cigarettes, Ready to change: No. Household tobacco concerns: No. Yes, 01/03/2023 Family History Alcoholism: Father. Diabetes mellitus type 2: Father. Immunizations Vaccine Date Status Comments i (more content not included)... [facility] Comment on above: Result Comment: Elec tronically Signed By: RONAL PILLAI, Johnny Tom.br\Date and Time Signed: 02/11/23 16:08 EDT Physician Orderon 02-11-2023 Physician Order [id number]#1.00T IFF [facility] RAD - MISCon 02-05-2023 RAD - MISC [id number]#1.00T IFF [facility] Formson 01-30-2023 Forms [id number]#1.00T IFF [facility] Consultation Noteon 01-30-20 Consultation Note [id number]#1.00T IFF [facility] Consent for Treatmenton Consent for Treatment [id number]#1.00T IFF [facility] Transfer Inon 01-16-2023 Transfer In [id number]#1.00C D:127 [facility] CNPLatanya 01-14-2023 CNPN Telephone (FAMPWS) THANH [id number]) 1935 M Date Time Provider Department 01/14/23 BOO MARINA During your visit today, we recorded the following information about you: Allergies As of Date: 01/14/2023 Noted Allergy Reaction BANANA 12/10/2022 9 - Itching DUST 05/29/2017 14 - Other: See Comments GRASS POLLEN 05/29/2017 14 - Other: See Comments MOLD SPORES 05/29/2017 14 - Other: See Comments Date Reviewed: 12/16/2022 Reviewed by: Shelia Sharp MA - Fully Assessed Prescriptions as of 02/24/2023 - POTASSIUM-99 ORAL Take by mouth. - predniSONE (DELTASONE) 20 mg tablet Take 1 tablet by mouth once daily. - nitroglycerin sublingual (NITROQUICK) 0.4 mg SL tablet Dissolve 1 tablet under the tongue every 5 minutes as needed. - ezetimibe (ZETIA) 10 mg tablet Take 1 tablet by mouth once daily. - Cholecalciferol, Vitamin D3, 50 mcg (2,000 unit) cap Take 1 capsule by mouth once daily. - furosemide (LASIX) 20 mg tablet TAKE 1 TABLET BY MOUTH DAILY AFTER BREAKFAST *FOR SWELLING - Fenofibrate (LOFIBRA) 54 mg tablet Take 1 tablet by mouth once daily. - aspirin 81 mg chewable tablet Chew 1 tablet by mouth once daily. - atorvastatin (LIPITOR) 40 mg tablet Take 1 tablet by mouth daily at bedtime. - pantoprazole DR (PROTONIX) 40 mg tablet Take 1 tablet by mouth DAILY (6 AM). Problem List As Of Date 01/14/2023 Noted Resolved Chronic rhinitis [J31.0] 06/30/2014 Cerumen impaction [H61.20] 06/30/2014 06/22/2020 Chronic otitis externa [H60.60] 06/30/2014 Presence of drug coated stent in left circumfle*08/10/2015 Asymptomatic LV dysfunction [I51.9] 08/10/2015 History of AR (myocardial infarction) [I25.2] 08/10/2015 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] 08/10/2015 S/P insertion of iliac artery stent [Z95.828] 08/10/2015 Presence of cardiac pacemaker [Z95.0] 08/10/2015 Sick sinus syndrome (HCC) [I49.5] 08/10/2015 Atrial fibrillation (HCC) [I48.91] 08/10/2015 Gastrointestinal hemorrhage associated with ang*08/10/2015 Dyslipidemia [E78.5] 08/10/2015 Tobacco use disorder [F17.200] 08/10/2015 Encounter for monitoring anti-arrhythmic therap*08/10/2015 06/22/2020 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] 08/10/2015 Chronic obstructive pulmonary disease (HCC) [J4*01/29/2016 CKD (chronic kidney disease) [N18.9] 06/19/2016 06/22/2020 Allergic rhinitis [J30.9] 06/19/2016 06/22/2020 Essential hypertension [I10] 06/19/2016 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] 12/21/2015 CAD (coronary artery disease) [I25.10] 12/23/2019 Aortic aneurysm (HCC) [I71.9] 06/22/2020 Abnormal cholesterol test [E78.9] 06/22/2020 COPD (chronic obstructive pulmonary disease) (H* 06/22/2020 H/O right heart catheterization [Z98.890] 06/22/2020 High blood pressure [I10] 07/29/2016 History of heart attack [I25.2] 06/22/2020 Neuropathy (HCC) [G62.9] Thrombocytopenia (HCC) [D69.6] Hypertriglyceridemia [E78.1] Low HDL (under 40) [E78.6] 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]07/29/2016 06/22/2020 History of abdominal aortic aneurysm repair [Z9*07/29/2016 06/22/2020 COPD (chronic obstructive pulmonary disease) wi*07/08/2017 Chronic seasonal allergic rhinitis due to polle*07/08/2017 Stage 3 chronic kidney disease (HCC) [N18.30] 10/08/2017 06/22/2020 Coronary artery disease due to lipid rich plaqu*10/08/2017 06/22/2020 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] 04/08/2018 Albuminuria [R80.9] 05/18/2018 06/22/2020 Paroxysmal atrial fibrillation (HCC) [I48.0] 01/14/2020 06/22/2020 Atrial flutter (HCC) [I48.92] 03/03/2020 Chronic combined systolic and diastolic congest*09/26/2020 Tinea corporis [B35.4] 09/26/2020 Tick bite of abdomen [S30.861A, W57.XXXA] 09/26/2020 Actinic keratosis [L57.0] 09/26/2020 Benign prostatic hyperplasia without lower urin*12/30/2020 Elevated brain natriuretic peptide (BNP) level *12/30/2020 Hypertensive heart and kidney disease with certified ethical hacker*07/02/2021 Palpitations [R00.2] 12/23/2019 Hypertensive chronic kidney disease with stage *12/23/2019 Chronic sinusitis, unspecified [J32.9] 05/09/2017 Hyperlipidemia, unspecified [E78.5] 12/23/2019 At risk for stroke [Z91.89] 09/19/2021 Anticoagulant long-term use [Z79.01] 09/19/2021 Numbness of toes [R20.0] 10/09/2021 IFG (impaired fasting glucose) [R73.01] 10/09/2021 DANIEL (generalized anxiety disorder) [F41.1] 10/09/2021 Fatigue [R53.83] 10/09/2021 Paresthesia of foot, bilateral [R20.2] 10/09/2021 Eyelid lesion [H02.9] 10/09/2021 Atrial fibrillation, persistent (HCC) [I48.19] 01/09/2022 Vitamin D deficiency [E55.9] 01/09/2022 Vitamin B12 deficiency [E53.8] 01/09/2022 Seborrheic dermatitis of scalp [L21.9] 01/09/2022 Basal cell carcinoma (BCC) of skin of left lowe*02/27/2022 Memory loss, short term [R41.3] 10/08/2022 Gait disorder [R26.9] 10/08/2022 Muscle weakness [M62.81] 10/08/2022 Weight (more content not included)... Normal [facility] Consultation Noteon 01-11-20 Consultation Note [id number]#1.00C D:127 Normal [facility] Echocardiographyon Echocardiography [id number]#1.00C D:127 [facility] Outside HPon 01-10-2023 Outside HP [id number]#1.00C D:127 Normal [facility] Outside Progress Noteon 12-21 Outside Progress Note [id number]#1.00C D:127 Normal [facility] Outside Progress Note [id number]#1.00C D:127 Normal [facility] Outside Progress Note [id number]#1.00C D:127 Normal [facility] Outside Recordson 01-10-2023 Outside Records [id number]#1.00C D:127 [facility] Auth for Release of Medical Recordson 01-08-2023 Auth for Release of Medical Records [id number]#1.00C D:127 [facility] Insurance Correspondenceon 0 01-08-2023 Insurance Correspondence [id number]#1.0 0CD:127 [facility] Consent for Treatmenton 12-20 Consent for Treatment [id number]#1.00C D:127 [facility] Lipid Panelon 01-04-2023 Cholesterol [Mass/Vol] 101 mg/dL Low 120-200 [facility] Comment on above: Performed By: #### 2 [id number] #### [facility] [address] [place] [address] Cholesterol in HDL [Mass/Vol] 35 mg/dL Invalid Interpretation Code [facility] Comment on above: Result Comment: HDL > or equal to 60 mg/dL: Low cardiovascular risk HDL < 40 mg/dL : High cardiovascular risk Performed By: #### 2 [id number] #### [facility] [address] [place] [address] Cholesterol in LDL [Mass/Vol] 44 mg/dL Normal <=129 [facility] Comment on above: Performed By: #### 2 [id number] #### [facility] [address] [place] [address] Cholesterol in VLDL [Mass/Vol] 21 mg/dL Normal 7-40 [facility] Comment on above: Performed By: #### 2 [id number] #### [facility] [address] [facility] [place] [address] Triglyceride [Mass/Vol] 105 mg/dL Normal <=149 [facility] Comment on above: Performed By: #### 2 [id number] #### [facility] [address] [place] [address] Consent for Treatmenton 12-20 Consent for Treatment [id number]#1.00C D:127 Normal [facility] Heart and Vascular Office/Cl inic Noteon 01-03-2023 Heart and Vascular Office/Clinic Note History of Present Illness Patient is a very pleasant 87-year-old nondiabetic current smoker of approximately 75 pack years, with chronic kidney deficiency stage III, COPD, coronary disease status postcardiac stents although he cannot recall where or when, status post open AAA repair, chronic atrial fibrillation on Eliquis therapy, status post pacemaker placement. The patient was recently admitted to [facility] in [place] after being transferred from [facility] in the [facility] after presenting with new onset left-sided facial droop. Patient was found to have a CVA, and CT of his carotids demonstrated bilateral carotid stenosis of approximately 7 0%. Patient was treated with Eliquis and aspirin and subsequently discharged. He used to live in the [facility] but recently relocated back up to this area to be with his daughters and 4 assisted living. From a cardiac standpoint he denies any chest pain, angina, shortness of breath or dyspnea on exertion over baseline. He is compliant with his medications. He has had no presyncope or syncopal episodes. Patient claims that he had an echocardiogram in [facility] but he does not have that included in his paperwork today. Unfortunately he continues to smoke. In our office today's blood pressure is 126/64 and pulse is 88 and regular. Physical exam demonstrates 2+ carotid upstroke with bilateral carotid bruits, regular rate and rhythm, normal S1/S2, no S3, S4 or murmurs are noted, he has no edema. Lipids are pending.. EKG dated 01/03/2023 shows background atrial fibrillation with paced ventricular response and PAC. Review of Systems Constitutional: no fever, no sweats, no weakness Skin: no rash, no lesions, nobruising/petechiae ENMT: no sore throat, no congestion, no hoarseness Respiratory: no shortness of breath, no cough, no orthopnea, no wheezing Cardiovascular: no chest pain, no palpitations, no edema Gastrointestinal: no nausea, no vomiting, no diarrhea, no GI bleeding Genitourinary: no anuria/oliguria no hematuria Musculoskeletal: no back pain, no trauma Neurologic: no headache, no dizziness, no numbness, no weakness Psychiatric: no sleeping problems, no irritability, no anxiety/depression. Heme/Lymph: no bleeding tendency, no bruising tendency Allergy/Immunologic: no recurrent infections, no impaired immunity Additional ROS info: Except as noted in the above Review of Systems and in the History of Present Illness all other systems have been reviewed and are negative or noncontributory. Physical Exam General: alert, no acute distress Skin: warm, dry intact Head: atraumatic, normocephalic Neck: Trachea midline, no JVD, mild bruit Eye: normal conjunctiva, sclera clear ENMT: oral mucosa moist Cardiovascular: regular rate and rhythm, nomurmur normal peripheral perfusion Respiratory: Lungs CTA, respirations non labored Chest wall: no deformity. Gastrointestinal: soft, non distended, no tenderness, no guarding. Back: No tenderness, Normal ROM, Normal alignment. Extremities: no edema, no deformity, no trauma Neurological: oriented x 4, LOC appropriate for agesensation equal & normal bilaterally, speech normal Psychiatric: cooperative, affect appropriate for age, normal judgement, normal psychiatric thoughts. Assessment/Plan 1. Coronary artery disease: Patient comes with a diagnosis of coronary artery disease and cardiac stents although I do not have any documentation of that. He denies any chest pain or anginal symptoms. We will hold off on stress testing at this time. In the meantime we will continue his baby aspirin, Lasix. 2. Peripheral vascular disease: Patient has significant peripheral vascular disease including AAA repair, iliac stent, and bilateral carotid stenosis in the face of recent CVA. He has residual left-sided facial droop. He may require carotid endarterectomy. He is going to see neurology in the near future and determine next course of action. Patient wishes to go back to [facility] in [place] for any carotid endarterectomy. 3. Hyperlipidemia: We will obtain a fasting lipid profile. His LDL should be less than 70. Continue Lipitor, Zetia and fenofibrate. 4. Atrial fibrillation: Patient is status post pacemaker placement and is asymptomatic from an atrial fibrillation standpoint. He will continue lifelong Eliquis therapy given his recent CVA. 5. Tobacco cessation: I strongly recommended the patient discontinue all tobacco products. Patient does not wish to quit. 6. Return office in [address] Villeda. Thank you very much for the opportunity to participate in cardiac care of your patient. HTN (hypertension) (I10: Essential (primary) hypertension) Ordered: ECG 12 Lead Adult Follow-up No qualifying data available Problem List/Past Medical History Ongoing Carotid stenosis, bilateral Historical No qualifying data Procedure/Surgical History Cardiac pacemaker. Medications aspirin 81 mg Oral EC Tab, 81 mg= 1 tab(s), Oral, Daily a (more content not included)... Normal [facility] Comment on above: Result Comment: Elec tronically Signed By: RONAL PILLAI, Johnny Vega\.br\Date and Time Signed: 01/03/23 13:53 EDT Outside Recordson 01-03-2023 Outside Records [id number]#1.00 CD:127 Normal [facility] Physician Orderon 01-03-2023 Physician Order [id number]#1.00 CD:127 [facility] Physician Referralon 023 Physician Referral [id number]#1.00C D:127 Normal [facility] Physician Referral [id number]#1.00C D:127 [facility] Ambulatory Visit Summaryon 0 12-24-2022 Ambulatory Visit Summary THANH COLEMAN :1935 Visit Date:12/24/2022 Ambulatory Visit Instructions Your Diagnosis Establishing care with new doctor, encounter for Hx of stroke without residual deficits Hx of myocardial infarction Pacemaker Hypertension Hyperlipidemia Memory loss Carotid stenosis, bilateral BMI 29.0-29.9,adult Smoker Overweight Your Care Team Attending Physician - Nanci Jarvis MD Primary Care Physician - Nanci Jarvis MD This Is Your Medications List Contact prescribing physician if questions or concerns apixaban (Eliquis 2.5 mg oral tablet) aspirin (aspirin 81 mg Oral EC Tab) atorvastatin (atorvastatin 40 mg Tab) cholecalciferol (Vitamin D3 2000 intl units oral Tab) ezetimibe (ezetimibe 10 mg Tab) fenofibrate (fenofibrate 54 mg oral tablet) furosemide (furosemide 20 mg Tab) nitroglycerin (nitroglycerin 0.4 mg sublingual Tab) pantoprazole (Pantoprazole [address] Tab) Procedures Performed Cardiac pacemaker. Discharge Vitals Heart Rate (Peripheral) 68 Blood Pressure 120/84 Height 175 cm Height 69 in Weight 89.2 kg Weight 196.24 lb BMI 29.13 What to do next You Need to Schedule the Following Appointments Follow Up with Nanci Jarvis MD, FAM, MED When: In 3 months Where: [address] [place] [phone] [facility] (1) Someone Will Contact You Regarding These Appointments [facility] External Ambulatory Referral, Neurology, 12/24/22 14:18:00 EDT, Hx of stroke without residual deficits [facility] Auth for Release of Medical Recordson 12-24-2022 Auth for Release of Medical Records [id number]#1.00CD :127 [facility] Consent for Flu Vaccineon Consent for Flu Vaccine [id number]#1.00C D:127 Normal [facility] Family Medicine Office/Clini c Noteon 12-24-2022 Family Medicine Office/Clinic Note Chief Complaint est care HPI Staff Establish Care: History: Last provider:Dr. Marina Any recent labs:UTD Acute: Current issues/complaints:[facility] 12/06-12/10 for stroke. would like to discuss referrals. Was told he can not live alone and is looking for assisted living. Needs to find a new legislative director and neurologist. History of Present Illness THANH COLEMAN is a 87 Years White Male presenting to clinic today for establishing care PMHx: Afib on Eliquis, HTN, CKD stage 3, COPD, CHF, CAD with multiple stents, AR x4, hx of CVA, descending AAA with stent placement, pacemaker admitted to hospital in [place], [place] for stroke CT brain negative CTA head mild irregular narrowing at right M1 segment of MCA and carotid calcification CTA carotid showed >70% right carotid artery Hx of TB, had lobectomy of left lung at 14yo Review of Systems PHQ Score Initial Depression Screen Score: 0 Negative except as above Physical Exam Vitals & Measurements HR: 68(Peripheral) BP: 120/84 SpO2: 97% HT: 69 in HT: 175 cm WT: 89.2 kg WT: 196.24 lb BMI: 29.13 Gen: No acute distress, sitting comfortably in chair Cardio: RRR, no murmur/rubs/gallops Resp: CTAB, no wheezing/rales/rhonchi Psych: Pleasant, normal mood, normal affect Neuro: CN II-XII intact, normal gait Assessment/Plan 1. Establishing care with new doctor, encounter for (Z76.89: Persons encountering health services in other specified circumstances) flu shot given today patient to go to assisted living, waiting on housing case manager to start placement process 2. Hx of stroke without residual deficits (Z86.73: Personal history of transient ischemic attack (TIA), and cerebral infarction without residual deficits) referral to cardiology and neurology placed cont aspirin 81 mg, eliquis 2.5 mg bid, atorvastatin 40 mg, fenofibrate Ordered: [facility] External Ambulatory Referral [facility] Internal Ambulatory Referral 3. Hx of myocardial infarction (I25.2: Old myocardial infarction) referral to cardiology placed cont aspirin 81 mg, eliquis 2.5 mg bid, atorvastatin 40 mg, fenofibrate Ordered: [facility] Internal Ambulatory Referral 4. Pacemaker (Z95.0: Presence of cardiac pacemaker) referral to cardiology placed cont aspirin 81 mg, eliquis 2.5 mg bid, atorvastatin 40 mg, fenofibrate Ordered: [facility] Internal Ambulatory Referral 5. Hypertension (I10: Essential (primary) hypertension) referral to cardiology placed well controlled diet controlled Ordered: [facility] Internal Ambulatory Referral 6. Hyperlipidemia (E78.5: Hyperlipidemia, unspecified) referral to cardiology placed cont ezetimibe, atorvastatin, fenofibrate Ordered: [facility] Internal Ambulatory Referral 7. Memory loss (R41.3: Other amnesia) referral to neurology placed Ordered: [facility] External Ambulatory Referral 8. Carotid stenosis, bilateral (I65.23: Occlusion and stenosis of bilateral carotid arteries) >70% stenosis bilaterally cont aspirin, eliquis, ezetimibe, fenofibrate, atorvastatin referral to cardiology placed 9. BMI 29.0-29.9,adult (Z68.29: Body mass index [BMI] 29.0-29.9, adult) The standard range for ages 18 and older is >=18.5 and < 25 kg/m2. Your BMI today was above this range, this falls in the overweight to obese category and there are medical benefits to weight loss. We can offer counselling, referral, and/or medical support in addressing this problem. Your BMI and weight management will be followed at subsequent visits. 10. Smoker (F17.200: Nicotine dependence, unspecified, uncomplicated) smoking cigarettes more, declines quitting 11. Overweight (E66.3: Overweight) increase whole foods, decrease processed foods exercise at least 2.5 hours weekly Follow-up With When Contact Information Nanci Jarvis MD, FAM, MED In [address] [place] [phone] Business (1) Additional Instructions: Problem List/Past Medical History Ongoing Carotid stenosis, bilateral Historical No qualifying data Procedure/Surgical History Cardiac pacemaker. Medications aspirin 81 mg Oral EC Tab, 81 mg= 1 tab(s), Oral, Daily atorvastatin 40 mg Tab, 40 mg= 1 tab(s), Oral, Daily Eliquis 2.5 mg oral tablet, 2.5 mg= 1 tab(s), Oral, BID ezetimibe 10 mg Tab, 10 mg= 1 tab(s), Oral, Daily fenofibrate 54 mg oral tablet, 54 mg= 1 tab(s), Oral, Daily furosemide 20 mg Tab, 20 mg= 1 tab(s), Oral, Daily, PRN nitroglycerin 0.4 mg sublingual Tab, 0.4 mg= 1 tab(s), SubLingual, q5min, PRN Pantoprazole [address] Tab, 40 mg= 1 tab(s), Oral, Daily Vitamin D3 2000 intl units oral Tab, 50 mcg, Oral, Daily Allergies No Known Medication Allergies Social History Alcohol - Denies Alcohol Use, 12/24/2022 Substance Abuse - Denies Substance Abuse, 12/24/2022 Tobacco 10 or more cigarettes (1/2 pack or more)/day in last 30 days Tobacco Use:. Never Smokeless Tobacco Use:. Cigarettes, Ready to change: No. Household tobacco concerns: No. Yes, 12/24/2022 Fa (more content not included)... Normal [facility] Comment on above: Result Comment: Elec tronically Signed By: Nanci Jarvis MD\.br\Date and Time Signed: 12/24/22 14:47 EDT Formson 12-24-2022 Forms [id number] :127 [facility] CNOVon 12-16-2022 CNOV Office Visit (DOMINICKSTP ) THANH COLEMAN ([id number]) 1935 M Date Time Provider Department 12/16/22 11:00 AM LUKE SUN During your visit today, we recorded the following information about you: Pulse Respiration Blood pressure Weight 91/minute 18/minute 120/78 86.7 kg Height 1.803 m Luke Sun DO 12/16/2022 1:59 PM Signed Subjective Thanh Coleman is a 87 year old male. 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 Dyslipidemia Tobacco Use Disorder H/O Abdominal Aortic Aneurysm Repair Chronic Obstructive Pulmonary Disease (Hcc) Essential Hypertension Stage 3b Chronic Kidney Disease (Hcc) Cad (Coronary Artery Disease) Neuropathy Thrombocytopenia (Hcc) Hypertriglyceridemia Low Hdl (Under 40) Copd (Chronic Obstructive Pulmonary Disease) With Chronic Bronchitis (Hcc) 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 Atrial Flutter (Hcc) Chronic Combined Systolic and Diastolic Congestive Heart Failure (Hcc) Tinea Corporis Tick Bite of Abdomen Actinic Keratosis Benign Prostatic Hyperplasia Without Lower Urinary Tract Symptoms Elevated Brain Natriuretic Peptide (Bnp) Level Hypertensive Heart and Kidney Disease With Chronic Combined Systolic and Diastolic Congestive Heart Failure and Stage 3b Chronic Kidney Disease (Hcc) Palpitations Hypertensive Chronic Kidney Disease With Stage 1 Through Stage 4 Chronic Kidney Disease, Or Unspecified Chronic Kidney Disease Chronic Sinusitis, Unspecified Hyperlipidemia, Unspecified At Risk for Stroke Anticoagulant Long-Term Use Numbness of Toes Ifg (Impaired Fasting Glucose) Daniel (Generalized Anxiety Disorder) Fatigue Paresthesia of Foot, Bilateral Eyelid Lesion Atrial Fibrillation, Persistent (Hcc) Vitamin D Deficiency Vitamin B12 Deficiency 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 Including [place]hus Memory Loss, Short Term Gait Disorder Muscle Weakness Weight Loss Pvd (Peripheral Vascular Disease) (Hcc) Cva (Cerebral Vascular Accident) (Hcc) Atherosclerosis of Both Carotid Arteries Facial Weakness Abdominal Aortic Aneurysm (Aaa) (Hcc) Bradycardia Pacemaker Battery Depletion PAST MEDICAL HISTORY Diagnosis Date Anticoagulant long-term use Aortic aneurysm (HCC) s/p repair AAA Atrial flutter (HCC) 03/03/2020 CAD (coronary artery disease) pacemaker, hyperlipidemia, hyperlipidemia Chronic combined systolic and diastolic congestive heart failure (HCC) 09/26/2020 CKD (chronic kidney disease) stage 3, GFR 30-59 ml/min ([facility]) 12/2015 COPD (chronic obstructive pulmonary disease) (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) 07/02/2021 Hypertriglyceridemia Low HDL (under 40) Neuropathy Palpitations 12/23/2019 Permanent atrial fibrillation ([facility]) 08/10/2015 Presence of cardiac pacemaker 08/10/2015 Presence of drug coated stent in left circumflex coronary artery 08/10/2015 Sick sinus syndrome ([facility]) 08/10/2015 Stage 3b chronic kidney disease ([facility]) 12/21/2015 TB (pulmonary tuberculosis) Thrombocytopenia ([facility]) PAST SURGICAL HISTORY Procedure Laterality Date ABD AORTIC ANEURYSM REPAIR CORONARY STENT EA VESSEL 3-2008 x 2, drug eluting ILIAC SLEEPING BAG FILLER W/WO STENT PACEMAKER DUAL CHAMBER TIER 0 -2012 PAST SURGICAL HISTORY OF resection lobe of lung,,AAA FAMILY HISTORY Problem Relation Age of Onset No Ocular Disease Mother other (TB) Mother Stroke Father No Ocular Disease Father Cancer Brother Kidney Disease Sister Social History Tobacco Use Smoking status: Every Day Types: Cigarettes Smokeless tobacco: Never Tobacco comments: PK EVERY 3 DAYS Vaping Use Vaping Use: Former Substances: Nicotine Devices: Disposable Substance Use Topics Alcohol use: No Drug (more content not included)... Normal [facility] EMERGENCY REPORTon 3 EMERGENCY REPORT [facility] EMERGENCY ROOM REPORT NAME ACCOUNT SEX AGE ADMIT DISCHARGE PT MED. RECORD# NUMBER DATE DATE TYPE THANH COLEMAN [id number] M 87 12/05/22 3 [id number] ROOM: [facility] DATE OF : 1935 DICTATING PHYSICIAN: Colby Murray CHIEF COMPLAINT: Possible stroke. HISTORY OF PRESENT ILLNESS: This is an 87-year-old male brought in by EMS from home with possible stroke. The patient was not answering the door. Apparently, a visiting nurse came to check on the patient, could not get in the room. The neighbor across the lopez had a cabello. She opened the door and let them in. They found him sitting there not really very responsive, with some slurred speech and left facial droop. Last known well time was sometime yesterday, unclear exactly when yesterday. The patient was transported here. On arrival, his symptoms seem to have improved somewhat. The patient denies any headache, denies any chest pain or shortness of breath. He denies abdominal pain, nausea or vomiting. He states that he does smoke half a pack of cigarettes per day. It is unclear whether he is on a blood thinner. He says he takes an aspirin, but then he also stated Yes when we asked him if he took Eliquis. I do not have a medication list at this time. PAST MEDICAL HISTORY: Hypertension, hyperlipidemia, cardiac disease, previous AR and pacemaker. PAST SURGICAL HISTORY: No recent surgeries. He had previous surgery for TB as a child, and he had previous abdominal surgery he thinks for an aneurysm but he is uncertain. ALLERGIES: The patient denies any significant allergies. FAMILY HISTORY: Denied. SOCIAL HISTORY: Positive for half pack of cigarettes per day. He denies alcohol use, denies marijuana use or recreational drug use. REVIEW OF SYSTEMS: The patient denies any fever or chills, cough, sore throat, runny nose. No nausea, vomiting, diarrhea, constipation. He denies any pain in general. A complete review of systems is otherwise negative, except as noted above. PHYSICAL EXAMINATION: Vital signs: Initial vital signs obtained, BP was 142/80 on arrival, pulse 58, respirations 18 and unlabored, pulse oximetry 97% on room air, temperature 97.7. Head is normocephalic, atraumatic. Eyes: PERRLA, EOMI. Conjunctival are clear. No icterus, no jaundice. Neck: Supple. No gross adenopathy. Page 1 of 3 THANH COLEMAN Emergency Room Report THANH COLEMAN : 1935 Trachea is midline. No obvious carotid bruits are heard. Heart: Regular. No murmur, click, gallop or rub. He does have a pacemaker. Lungs: Essentially clear. No rales, rhonchi or wheezes. No accessory muscles of respiration used. No conversational dyspnea. Abdomen: Soft, nontender. No masses, guarding, rigidity, rebound. No hepatosplenomegaly. NIH initial score is 3. He missed one question. Initially, he was unable to tell us the month, but then later he did tell us the month after we told him what it was. He also got one point for minor asymmetry of the left face, and he also got one point for mild dysarthria. The remainder of his NIH scale is unremarkable. DIAGNOSTIC DATA: The patient was taken urgently to CT on arrival. CT of the brain without contrast was interpreted by radiology and reviewed by me. This showed no evidence of acute intracranial abnormality. CTA of the head showed mild irregular narrowing of the right M1 segment of the MCA. There is no significant stenosis or aneurysmal dilatation. There is carotid calcification present in the paraclinoid portion. A CT angiography of the neck was obtained. Impression of that as read by radiology reveals hard plaque present at the carotid bulb and the origin of the internal carotid arteries bilaterally. There is severe narrowing at the origin of the right carotid artery, which is greater than 70%. The patient is given aspirin 325 mg orally after passing a swallow test. The patient is also given Plavix 75 mg orally x1. The patient's EKG showed a paced dual-chamber paced rhythm. There is good capture, no evidence of acute ischemia. Rate is 61 beats per minute. CBC is unremarkable, white count 7.4, hemoglobin 13, hematocrit 40, platelet count 209,000. BUN 24, creatinine 1.31, sodium 144, potassium 4.1, chloride 106, bicarbonate 27.4. GFR is greater than 60. LFTs are unremarkable. EMERGENCY DEPARTMENT COURSE AND TREATMENT: The patient was seen by the stroke expert via Skype. The patient was examined, and neurology felt that the patient probably had a stroke/transient ischemic attack. They recommended that we get a CTA of the head and neck. I discussed the case with Dr. Morejon from [facility]. The patient was accepted in transfer there to [facility]. DIAGNOSES: 1. Stroke with left facial droop. 2. Hypertension. 3. Carotid disease. 4. Tobacco use. PLAN/DISPOSITION: I have explained to the patient he needs transfer to prevent possible further stroke. He needs (more content not included)... Normal [facility] CNOVon 12-12-2022 CNOV Office Visit (FAMPWS ) THANH COLEMAN ([id number]) 1935 M Date Time Provider Department 12/12/22 1:00 PM ZORAIDA HODGE During your visit today, we recorded the following information about you: Pulse Respiration Blood pressure Weight 90/minute 20/minute 128/80 87.8 kg Zoraida Hodge, RIDGE.HEALTH INFORMATION SPECIALIST 12/13/2022 9:40 AM Signed Chief Complaint Patient presents with: Hospital F/U: Stroke, Dementia, needs 11/11 home care HPI Thanh Coleman is a 87 year old male who presents here today for Above Complaints.. Today: Was admitted to [facility] for stroke, has 75% blockage in his carotid artery. Was there from 12/06 to 12/10/2022. Originally one side of his face was drooping, arm and leg wasn't working well. Asked him questions and he didn't know simple answers-such as how many kids he had and their names. Called two of his sisters his daughters' names. Memory changes. Short term memory is 1/2 and 1/2. skilled nursing memory is confused, specifically with people. Is very repetitive. Patient does not think there are any concerns and does not recognize he is having any of the sx but daughter is present and states she and her sister have noticed these significant changes that have been progressing over the past several months. Is not able to cook for himself, clean house, do his laundry. Does shower, dress self, basic ADLs. Neighbor Nanci was helping take care of him. Kept his family away from him. She was throwing pills away. Home care nurse knew x2 months and was reporting in her paperwork. clean up worker was aware as well and family was not informed. Neighbor was controlling and made it difficult for family to be involved in patient's care. Family is requesting guardianship. Was recommended that he move to assisted living and needs help making sure he takes his medications, etc. Seeing heart doctor in 4 days-Dr. Sun in [place]. Past medical history, appointments, medications, allergies reviewed. Previous Medical History PAST MEDICAL HISTORY Diagnosis Date Anticoagulant long-term use Aortic aneurysm ([facility]) s/p repair AAA Atrial flutter ([facility]) 03/03/2020 CAD (coronary artery disease) pacemaker, hyperlipidemia, hyperlipidemia Chronic combined systolic and diastolic congestive heart failure (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) 12/2015 COPD (chronic obstructive pulmonary disease) (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) 07/02/2021 Hypertriglyceridemia Low HDL (under 40) Neuropathy Palpitations 12/23/2019 Permanent atrial fibrillation ([facility]) 08/10/2015 Presence of cardiac pacemaker 08/10/2015 Presence of drug coated stent in left circumflex coronary artery 08/10/2015 Sick sinus syndrome ([facility]) 08/10/2015 Stage 3b chronic kidney disease ([facility]) 12/21/2015 TB (pulmonary tuberculosis) Thrombocytopenia ([facility]) Previous Surgical History PAST SURGICAL HISTORY Procedure Laterality Date ABD AORTIC ANEURYSM REPAIR CORONARY STENT EA VESSEL 3-2008 x 2, drug eluting ILIAC SLEEPING BAG FILLER W/WO STENT PACEMAKER DUAL CHAMBER TIER 0 4-2012 PAST SURGICAL HISTORY OF resection lobe of lung,,AAA Family History FAMILY HISTORY Problem Relation Age of Onset No Ocular Disease Mother other (TB) Mother Stroke Father No Ocular Disease Father Cancer Brother Kidney Disease Sister Patient Allergies ALLERGIES Allergen Reactions Banana Itching Dust Other: See Comments Grass Pollen Other: See Comments Mold Spores Other: See Comments Current Medications Current Outpatient Medications on File Prior to Visit Medication Sig aspirin 81 mg chewable tablet Chew 1 tablet by mouth once daily. atorvastatin (LIPITOR) 40 mg tablet Take 1 tablet by mouth daily at bedtime. pantoprazole DR (PROTONIX) 40 mg tablet Take 1 tablet by mouth DAILY (6 AM). apixaban (ELIQUIS) 2.5 mg tab(s) Take 1 tablet by mouth twice daily. furosemide (LASIX) 20 mg tablet TAKE 1 TABLET BY MOUTH DAILY AFTER BREAKFAST *FOR SWELLING Cholecalciferol, Vitamin D3, 50 mcg (2,000 unit) cap Take 1 capsule by mouth once daily. ezetimibe (ZETIA) 10 mg tablet Take 1 tablet by mouth once daily. Fenofibrate (LOFIBRA) 54 mg tablet Take 1 tablet by mouth once daily. nitroglycerin sublingual (NITROQUICK) 0.4 mg SL tablet Dissolve 1 tablet under the tongue every 5 minutes as needed. albuterol HFA (VENTOL (more content not included)... Normal [facility] 12-12-2022 [facility] Telephone (JESUSITAWST) THANH COLEMAN ([id number]) 1935 M Date Time Provider Department 12/12/22 CHERY FREITAS During your visit today, we recorded the following information about you: Chery Freitas MSW 12/12/2022 3:49 PM Signed Andre called and briefly spoke with patient daughter Tiffany. Tiffany asks that Andre reach back out to her in the morning. Tiffany reports that she is driving home and there is high water in some areas, so wants to watch where she is going. Andre will try call again tomorrow morning. Chery Freitas MSW 12/13/2022 10:21 AM Signed Andre spoke with patient daughter Tiffany about older adult programs. Tiffany notes that patient is staying with her right now in [place]. Patient has been a resident of [place], until now going to [place]. Tiffany notes that patient reports that he would like to be located between Tiffany and her sister Peggy. Ty would be in between. Tiffany reports that she has been able to cardroom worker doing her medical billing. Concerns from patient stroke: falls/memory impairment. Andre and Tiffany discussed that some [place] accept Medicaid/Waiver upon entry. Tiffany and Andre also discussed Guardianship and probate court. Discussed benefits by utilizing [employer] Environmental Field Office Manager. Tiffany notes that one of her sisters used to be patient POA. This sister though now does not have contact with family. Andre discussed with Tiffany that [employer] also may provide assistance for guardianship corporate associate attorney needs. Andre provided Tiffany with AAA 9 phone number for [facility]. Patient has been [facility] resident and this would be a good place to start searching for patient resources. Andre provided Tiffany with her direct number for further patient care needs. Tiffany also noted that she would pass along direct number to her sister Peggy. Peggy is listed as a patient contact as well. Allergies As of Date: 12/12/2022 Noted Allergy Reaction BANANA 12/10/2022 9 - Itching DUST 05/29/2017 14 - Other: See Comments GRASS POLLEN 05/29/2017 14 - Other: See Comments MOLD SPORES 05/29/2017 14 - Other: See Comments Date Reviewed: 12/12/2022 Reviewed by: Meseret Reyes - Fully Assessed Prescriptions as of 12/13/2022 - nitroglycerin sublingual (NITROQUICK) 0.4 mg SL tablet Dissolve 1 tablet under the tongue every 5 minutes as needed. - ezetimibe (ZETIA) 10 mg tablet Take 1 tablet by mouth once daily. - Cholecalciferol, Vitamin D3, 50 mcg (2,000 unit) cap Take 1 capsule by mouth once daily. - furosemide (LASIX) 20 mg tablet TAKE 1 TABLET BY MOUTH DAILY AFTER BREAKFAST *FOR SWELLING - Fenofibrate (LOFIBRA) 54 mg tablet Take 1 tablet by mouth once daily. - aspirin 81 mg chewable tablet Chew 1 tablet by mouth once daily. - atorvastatin (LIPITOR) 40 mg tablet Take 1 tablet by mouth daily at bedtime. - pantoprazole DR (PROTONIX) 40 mg tablet Take 1 tablet by mouth DAILY (6 AM). - apixaban (ELIQUIS) 2.5 mg tab(s) Take 1 tablet by mouth twice daily. 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] 08/10/2015 S/P insertion of iliac artery stent [Z95.828] 08/10/2015 Presence of cardiac pacemaker [Z95.0] 08/10/2015 Sick sinus syndrome (HCC) [I49.5] 08/10/2015 Atrial fibrillation (HCC) [I48.91] 08/10/2015 Gastrointestinal hemorrhage associated with ang*08/10/2015 Dyslipidemia [E78.5] 08/10/2015 Tobacco use disorder [F17.200] 08/10/2015 Encounter for monitoring anti-arrhythmic therap*08/10/2015 06/22/2020 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] 08/10/2015 Chronic obstructive pulmonary disease (HCC) [J4*01/29/2016 CKD (chronic kidney disease) [N18.9] 06/19/2016 06/22/2020 Allergic rhinitis [J30.9] 06/19/2016 06/22/2020 Essential hypertension [I10] 06/19/2016 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] 12/21/2015 CAD (coronary artery disease) [I25.10] 12/23/2019 Aortic aneurysm (HCC) [I71.9] 06/22/2020 Abnormal cholesterol test [E78.9] 06/22/2020 COPD (chronic obstructive pulmonary disease) (H* 06/22/2020 H/O right heart catheterization [Z98.890] 06/22/2020 High blood pressure [I10] 07/29/2016 History of heart attack [I25.2] 06/22/2020 Neuropathy (HCC) [G62.9] Thrombocytopenia (HCC) [D69.6] Hypertriglyceridemia [E78.1] Low HDL (under 40) [E78.6] 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]07/29/2016 06/22/2020 History of abdominal aortic aneurysm repair [Z9*07/29/2016 06/22/2020 COPD (chronic obstructive pulmonary disease) wi*07/08/2017 Chronic seasonal allergic rhinitis due to polle*07/08/2017 Stage 3 c (more content not included)... [facility] CASE MANAGEMon 12-10-2022 CASE MANAGEM HNO ID: [id number] Author: Mulu Willoughby RN Service: ? Author Type: Registered Nurse Type: Care Mgt Progress Note Filed: 12/10/2022 12:45 PM Note Text: CARE MANAGEMENT DISCHARGE NOTE SERVICE DATE: December 10, 2022 SERVICE TIME: 12:40 PM Admission Date: 12/06/2022 LOS: 4 days Discharge Arrangement Discharge Arrangement: Home with Relative Services Arranged PCP appointment Provider Name: N/A Phone: N/A Caregiver Assessment Caregiver is ready, willing and able to meet the patient's needs as recommended by the inter-professional team: Yes Name of Caregiver: mesha Purdy Transportation Arrangements Transportation Arrangements: Car Date of Trip: 12/10/22 Destination: home Handoff Communication: Handoff to: Necktie Stitcher Necktie Stitcher Name/Phone: Dr Marina Additional Information: N/A Discharge Information Row Name Admission (Current) from 12/06/2022 in [facility] PEDS/ADULT Medical Follow-Up Appointment Specialty primary care Provider Name Dr Luke Sun Address [address] [place] [address], [place] [address] Appointment Date 12/16/22 Appointment Time 10:45AM Additional Instructions please arrive 15 minutes early, bring photo ID, insurance card, discharge instructions. Patient discharged this date home with daughterMichelle, Mesha to transport home this date. DaughterMichelle, resides in [place], [place], so family requested this CM to set up new PCP in [place], [place]. CM set patient up with new PCP. Since patient will be set up with new PCP, if family wanting skilled home care, home care will need set up through new PCP, or set up through [facility] case management coordinator since [facility] CM is the one who has set up current [facility] services. Since patient going from his home in [place] to [place], his current HHC company does not service the [place] area so HHC unable to be set up. Family notified. Family also provided assisted living facility list per request. Medications sent to [facility] for family to chart picker on the way out of the hospital. No further needs noted. Case closed. SIGNATURE: Mulu Willoughby RN PATIENT NAME: Thanh Coleman DATE: December 10, 2022 TIME: 12:40 PM CONTACT #: [id number] [facility] Enrrique 12-10-2022 CNDS HNO ID: [id number] Author: Rudy Bang MD Service: Hospital Medicine Author Type: Physician Type: Discharge Summary Filed: 12/10/2022 1:31 PM Note Text: DISCHARGE SUMMARY PATIENT NAME: Thanh Coleman ADMISSION DATE: 12/06/2022 DISCHARGE DATE: 12/10/2022 ATTENDING PHYSICIAN: Rudy Bang MD Code Status: Full Code Highest Readmission Risk Score: 14 The 30 day readmissions risk score is derived from an internally validated risk model which evaluates patient level characteristics, utilization history, medication orders and lab results up until the day of discharge. Patients with a score of 40 or above are considered highest risk for readmission. Specific patient level drivers will be listed at the bottom of the summary. CONSULTING TEAMS DURING HOSPITALIZATION: Neurology: Treatment Team: Attending Provider: Rudy Bang MD Attending: MR CHAGO COLBY Consulting: Young Magallon MD Attending: Dennis Navarrete MD Consulting: Anil Red, PhD REASON FOR HOSPITALIZATION: slurred speech DIAGNOSIS: Slurred speech Concern for CVA/TIA Hypertension Atrial fibrillation on Eliquis CKD stage III COPD History of CHF, not in exacerbation History of descending AAA. HOSPITAL COURSE: This is an 87-year-old male. The patient was admitted with a chief complaint as follows: Left-sided facial droop, slurred speech. PMH is as follows: HTN, CKD stage III, COPD, CHF, CAD, A-fib on Eliquis, descending AAA. He was transferred as an admission from [facility], where he went with a chief complaint of left-sided facial droop and slurred speech.In the ER, initial NIH was at 3. Teleneurology evaluated the patient and felt that the patient needed to be transferred to higher level of care for further neurological work-up. Therefore he was transferred to [facility]. CT brain showed no acute abnormalities. CTA head and neck showed mild irregular narrowing at right M1 segment of MCA. There was also hard plaque present at the carotid bulb and origin of the ICA bilaterally. 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 Here at [facility], the patient was evaluated by neurology. Per neurology, the patient is unable to get MRI, due to iliac stents. However, it is felt that this is unlikely to private branch exchange service advisor. It is thought that he had TIA versus small stroke. Currently on Eliquis 2.5 Mg twice daily, as prescribed on an outpatient basis. He has also been placed on aspirin 81 mg daily, as well as Lipitor 40 Mg daily. During hospital stay, the patient was evaluated by vascular surgery. per vascular surgery, I will see him as a vascular surgical candidate and would recommend compliance with his medical therapy be happy to see the patient in follow-up to review films and long-term surveillance however I think medical therapy long-term is good to be the best option for the patient . Cardiac echocardiogram done while in-house showed results as follows: CONCLUSIONS: - Exam indication: Stroke - The left ventricle is normal in size. There is mild concentric left ventricular hypertrophy. Left ventricular systolic function is mildly decreased. EF = 52 ? 5% (2D 4-ch.) Grade I left ventricular diastolic dysfunction due to normal for age. - The right ventricle is normal in size. Right ventricular systolic function is normal. - There is no patent foramen ovale as detected by agitated saline contrast. - No significant valvular dysfunction. - The patient has not had a prior CC echocardiographic exam for comparison. At this time, the patient is doing well. He is being discharged in stable condition, in the care of his daughter. Physical exam: General: Laying in bed, in no distress HEENT: Head atraumatic, PERRLA, no icterus Cardiovascular: S1-S2 normal, no murmurs Chest: Bilateral air entry equal, chest clear bilaterally , no crackles distinguished Abdomen: soft, non tender Neuro: Aox3, moving all 4 extremities well Extremities: no edema Transitions of Care Critical Issues: PATIENT CONDITION AT DISCHARGE: Stable DISCHARGE DISPOSITION: Home DIET: Resume pre-hospital diet ACTIVITY: Resume pre-hospital activity ALLERGIES Allergen Reactions Dust Other: See Comments Grass Pollen Other: See Comments Mold Spores Other: See Comments DISCHARGE MEDICATION: Medication List START taking these medications aspirin 81 mg chewable tablet Chew 1 tablet by mouth once daily. Start taking on: December 11, 2022 Replaces: aspirin, enteric coated 81 mg EC tablet pantoprazole DR 40 mg tablet Commonly known as: PROTONIX Take 1 tablet by mouth DAILY (6 AM). Start taking on: December 11, 2022 CHANGE how you take these medications atorvastatin 40 mg tablet Commonly known as: LIPITOR Take 1 tablet by mouth daily at bedtime. What changed: when to take this CONTINUE taking these medicat (more content not included)... [facility] THERAPY NTon 12-10-2022 THERAPY NT HNO ID: [id number] Author: Tracee Allen PTA Service: Physical Therapy Author Type: Sales Floor Team Leader Type: Therapy (PT/OT/Speech/Resp) Filed: 12/10/2022 12:59 PM Note Text: Attestation signed by Cristal Salazar PT at 12/10/2022 1:19 PM I reviewed and agree with the documentation corresponding to this therapy visit. SIGNATURE: Cristal Salazar PT DATE: December 10, 2022 TIME: 1:19 PM Physical Therapy Treatment SERVICE DATE: 12/10/2022 SERVICE TIME: 937 to 1010 ROOM: [place] [id number] Total Joint Replacement Discharge Readiness: Not Applicable Recommended Discharge Disposition: Home PT Recommended Discharge Disposition Comments: Pt would benefit from HHPT to improve independence and decrease fall risk. Anticipated Discharge Needs: Supervision at Home Supervision at Home due to: Decreased safety awareness Recommended Discharge Equipment: To Be Determined PT 6 Clicks Score: 24 Precautions/Activity Restrictions: Fall Risk Current Hospital Course: stroke work up Reason for Hospital Admission: CVA Relevant Past Medical History: hypertension, hypercholesterolemia, pacemaker in place, coronary artery disease, chronic kidney disease, COPD, descending AAA Response to Therapy Interventions: Good Participation in Activities Assessment Comments: Patient did well with standing balance activities. He had no LOB with amb and was pleasant. 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 CURRENT FUNCTIONAL STATUS: Most recent performance Current Functional Mobility Assist Level Additional Information Rolling Independent Supine to Sit Independent Sit to Supine Independent Scooting Supervision Sit to Stand Supervision Stand to Sit Supervision Bed to Chair Supervision Bed To Chair Transfer Type: Stepping Bed To Chair Transfer Equipment: (none) Toilet/Commode Supervision Gait Supervision Gait Device: None Gait Distance (feet): >300ft Stairs Supervision Stairs Device: Rail Number of Stairs: 9 Curb Step Car Transfer Blank tomlinson indicate activity not attempted General Deviations/Observations : Constance decreased, Narrow Base of Support, Step length decreased Balance: Static Sitting, Dynamic Sitting, Static Standing, Dynamic Standing Static Sitting Balance: Normal Patient able to maintain steady balance without handhold support Dynamic Sitting Balance: Normal Patient accepts maximal challenge and can shift weight easily within full range in all directions Static Standing Balance: Good Patient able to maintain balance without handhold support, limited postural sway Dynamic Standing Balance: Good Patient accepts moderate challenge, able to maintain balance while picking up object off floor Activity Tolerance: Sitting Activity Sitting Activity: B LE exercises including ankle pumps, marches, and LAQ. JH-HLM: 8: Walk 250 feet or more Learning/Educational Needs: Functional Activities/Mobility, Plan of Care, Rehabilitation Techniques and Procedures Goals for Plan of Care: Patient/Caregiver Goals: Go Home Goals: Patient will demonstrate progress to optimize functional mobility, maximize activity tolerance and endurance to maximize function upon discharge. Able to Perform HEP with: Independent Rolling with: Modified Independent Transfer Supine to/from Sit with: Modified Independent Transfer Sit to/from Stand with: Modified Independent Ambulate with: Modified Independent Distance: 80ft Device: Wheeled Walker Ambulate Up and Down Steps with: Modified Independent Number of Steps: 8 Device: Rail Progress Toward Goals: Progressing as expected Rehab Potential: Good Patient will be discontinued from Physical Therapy when no further skilled needs are identified in this setting. PLAN: PT Frequency: 6 Times Per Week Plan of Care developed with: Patient TREATMENT INTERVENTIONS: Therapy Diagnosis: Reduced mobility-other, Muscle Weakness (generalized), Unsteadiness on feet Interventions Provided: Therapeutic Activity (48450), (more content not included)... [facility] CASE MANAGEMon 12-09-2022 CASE MANAGEM HNO ID: [id number] Author: Mulu Willoughby RN Service: ? Author Type: Registered Nurse Type: Care Mgt Progress Note Filed: 12/09/2022 1:59 PM Note Text: CARE MANAGEMENT PROGRESS NOTE SERVICE DATE: 12/09/2022 SERVICE TIME: 1:48 PM LOS: 3 days Patient admitted from home alone for CVS workup d/t left facial droop, slurred speech. Neuro and vascular consults following. Pending echo. PT/OT recommending [facility] CM attempted to call [facility] to find phone number for daughter, Ana Maria Church, as per daughter, Ana Maria Morales has medical POA but Ana Maria has been unable to be found for 10+ years, last known where abouts were in [place]. [facility] provided this CM phone numbers as follows; [phone] (Left VM, went straight to VM) [phone] CM called all numbers and all were disconnected aside from the one CM listed above that VM was left. Since reported HCPOA unable to be found, CM will need to obtain decision from majority of patient's children. 4/5 children met this CM for a meeting at 1pm to discuss dc planning. Children Garret, Jannie, michelle, peggy present in room. CM informed children about CM concerns, documented confusion, documented concerns from home care about the neighbor intentionally sabotaging patient medication regimen. Patient did not recognize 2 of the children in the room and repeatedly stated he was going home. CM expressed concerns for home going and need for 24/7 care. CM explained options of patient returning home with [facility] as previous to admission, or going home with a family member to manage medications/medical issues. Family concerned about patient returning home alone and will have discussion as to what is the best option. CM recommended family seek an elder law corporate associate attorney to seek potential guardianship of patient due to confusion and also assisted living facility placement as patient has [place] medicaid with likely waiver program to pay for [facility]. Family to make decision on dc planning. Patient able to answer orientation questions for this CM this date but still unable to recognize 2 children in the room, displays confusion for this CM in regards to medical care and confusion as to how he will get home or where he lives. MD updated and planning for dc tomorrow. CM will follow. SIGNATURE: Mulu Willoughby RN PATIENT NAME: Thanh Keens DATE: December 09, 2022 TIME: 1:48 PM PAGER/CONTACT #: [phone] [facility] 12-09-2022 [facility] Telephone ([id number]) VIRGINIATHANH Shelton ([id number]) 1935 M Date Time Provider Department 12/09/22 [facility] During your visit today, we recorded the following information about you: Carina Keyes RN 12/11/2022 2:46 PM Addendum Daughter, Michelle Quach, reports patient was transported via ambulance to [facility] early Friday morning. [facility] [place] transferred patient to [facility] to r/o stroke. CT showed patient had stroke and blockage in the neck. MRI was not done b/c patient has stents, but he, or family do not know where the stents are. [facility] was doing an ECHO today when family left. Hospital informed family today, patient will be d/c'd tomorrow, and will need 11/11 care. Family is trying to work on this. Reports patient needs a dementia test, so family can file for guardianship, and make needed decisions. Reports patient may need to go to assisted living. Reports patient still drives, so that will need to be addressed. Reports patient has a [facility] case management coordinator, and [facility] case management coordinator. Reports the biggest problem is patient is not taking his medications correctly. Reports patient is confused and doesn't always know his family members. Reports patient is able to walk and able to take himself to the bathroom. Scheduled hosp f/u appt with Senior Online Marketing Manager on , this week. Ekta Mandujano APRN.MADY 12/12/2022 2:00 PM Signed Being addressed in office today. Closing this encounter. Thank you, Ekta Mandujano APRN.HEALTH INFORMATION SPECIALIST Allergies As of Date: 12/09/2022 Noted Allergy Reaction DUST 05/29/2017 14 - Other: See Comments GRASS POLLEN 05/29/2017 14 - Other: See Comments MOLD SPORES 05/29/2017 14 - Other: See Comments Date Reviewed: 12/09/2022 Reviewed by: Marbiel Liu RN - Fully Assessed Reason for Visit: [facility] Main follow up [Other] Prescriptions as of 12/12/2022 - aspirin 81 mg chewable tablet Chew 1 tablet by mouth once daily. - atorvastatin (LIPITOR) 40 mg tablet Take 1 tablet by mouth daily at bedtime. - pantoprazole DR (PROTONIX) 40 mg tablet Take 1 tablet by mouth DAILY (6 AM). - apixaban (ELIQUIS) 2.5 mg tab(s) Take 1 tablet by mouth twice daily. - furosemide (LASIX) 20 mg tablet TAKE 1 TABLET BY MOUTH DAILY AFTER BREAKFAST *FOR SWELLING - Cholecalciferol, Vitamin D3, 50 mcg (2,000 unit) cap Take 1 capsule by mouth once daily. - ezetimibe (ZETIA) 10 mg tablet Take 1 tablet by mouth once daily. - Fenofibrate (LOFIBRA) 54 mg tablet Take 1 tablet by mouth once daily. - nitroglycerin sublingual (NITROQUICK) 0.4 mg SL tablet Dissolve 1 tablet under the tongue every 5 minutes as needed. - albuterol HFA (VENTOLIN HFA) 90 mcg/actuation inhaler Inhale 2 Puffs as instructed every 4 hours as needed for wheezing/shortness of breath. 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] 08/10/2015 S/P insertion of iliac artery stent [Z95.828] 08/10/2015 Presence of cardiac pacemaker [Z95.0] 08/10/2015 Sick sinus syndrome (HCC) [I49.5] 08/10/2015 Atrial fibrillation (HCC) [I48.91] 08/10/2015 Gastrointestinal hemorrhage associated with ang*08/10/2015 Dyslipidemia [E78.5] 08/10/2015 Tobacco use disorder [F17.200] 08/10/2015 Encounter for monitoring anti-arrhythmic therap*08/10/2015 06/22/2020 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] 08/10/2015 Chronic obstructive pulmonary disease (HCC) [J4*01/29/2016 CKD (chronic kidney disease) [N18.9] 06/19/2016 06/22/2020 Allergic rhinitis [J30.9] 06/19/2016 06/22/2020 Essential hypertension [I10] 06/19/2016 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] 12/21/2015 CAD (coronary artery disease) [I25.10] 12/23/2019 Aortic aneurysm (HCC) [I71.9] 06/22/2020 Abnormal cholesterol test [E78.9] 06/22/2020 COPD (chronic obstructive pulmonary disease) (H* 06/22/2020 H/O right heart catheterization [Z98.890] 06/22/2020 High blood pressure [I10] 07/29/2016 History of heart attack [I25.2] 06/22/2020 Neuropathy (HCC) [G62.9] Thrombocytopenia (HCC) [D69.6] Hypertriglyceridemia [E78.1] Low HDL (under 40) [E78.6] 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]07/29/2016 06/22/2020 History of abdominal aortic aneurysm repair [Z9*07/29/2016 06/22/2020 COPD (chronic obstructive pulmonary disease) wi*07/08/2017 Chronic seasonal allergic rhinitis due to polle*07/08/2017 Stage 3 chronic kidney disease (HCC) [N18.30] 10/08/2017 06/22/2020 Coronary artery disease due to lipid rich plaqu*10/08/2017 06/22/2020 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 [facility] ECHOon 12-09-2022 Echocardiography Echocardiography Report: Transthoracic Echo [facility] Date of service: 12/09/2022 1:58:22 PM Ordering physician: TRACEE ESCALONA Indication: Stroke Technologist: Silvia Frey RDCS Interpreting physician: Luke Daniel MD PATIENT: Name: MR. THANH COLEMAN : 1935 Age: 87 years Gender: M History of hypertension and arrhythmia. Previous cardiovascular interventions: AV pacemaker implant Primary rhythm: sinus. Height: 180.30 cm BSA: 2.13 m Weight: 90.63 kg BMI: 27.9 kg/m Heart rate 79 bpm Blood pressure 144/71 mmHg Agitated saline was administered to assess source of emboli. Color Doppler was utilized to interrogate the cardiac valves assessed and spectral Doppler was utilized to determine the flow velocities and pressure gradients reported in this exam. MEASUREMENTS: Value Indexed Normal Max aortic dimension 3.2 cm Ao < 3.8 Left atrium diameter 3.2 cm (M-Mode) Left atrial volume 45 ml (biplane A-L) 21 ml/m Billie <= 34 LV ID (diastole) 3.3 cm (2D) 1.55 cm/m LV ID (systole) 2.4 cm (2D) 1.13 cm/m IVS, leaflet tips 1.3 cm (2D) Posterior wall thickness 1.1 cm (2D) Left ventricular mass 125 g (2D) 59 g/m LV stroke volume 27 ml (2D 4-ch.) LVOT stroke volume 59 ml 28 ml/m LV end diastolic volume 53 ml (2D 4-ch.) 25.0 ml/m 34<=EDVi<75 LV end systolic volume 26 ml (2D 4-ch.) 12.1 ml/m Ejection Fraction 52 % (2D 4-ch.) EF > 52 FINDINGS: LEFT VENTRICLE The left ventricle is normal in size. There is mild concentric left ventricular hypertrophy. Left ventricular systolic function is mildly decreased. Grade I left ventricular diastolic dysfunction due to normal for age. Mitral annular lateral E/e': 3.9. Mitral annular septal E/e': 9.1. Wall Motion: All scored segments are normal. RIGHT VENTRICLE The right ventricle is normal in size. Pacer wires are noted in the right ventricle. Right ventricular systolic function is normal. RV systolic tissue Doppler velocity is 12.9 cm/s. Tricuspid annular displacement is 1.4 cm. Estimated right ventricular systolic pressure is 29 mmHg consistent with normal pulmonary artery pressures. Estimated right atrial pressure is 3 mmHg based on IVC assessment. LEFT ATRIUM The left atrial cavity is normal in size. RIGHT ATRIUM The right atrial cavity is normal in size. Inferior Vena Cava: The inferior vena cava appears normal measuring 1.1 cm. The vessel decreases greater than 50 percent with inspiration. MITRAL VALVE There is no mitral stenosis. There is trace mitral valve regurgitation. The peak mitral valve gradient is 3 mmHg. The mean mitral valve gradient is 2 mmHg. The pressure half time is 75 msec. The peak mitral E/A ratio is 0.78. The average mitral E/e' ratio is 6.5. The mitral flow deceleration time is 259 msec. TRICUSPID VALVE There is no tricuspid stenosis. There is mild (1+) tricuspid valve regurgitation. AORTIC VALVE There is no aortic valve stenosis. There is no aortic valve regurgitation. There is mild thickening. There is mild calcification. The peak gradient is 9 mmHg (peak velocity = 154.0 cm/s). The mean gradient is 5 mmHg. The LVOT mean velocity is 59.7 cm/s. The LVOT diameter is 2.1 cm. The aortic VTI is 29.4 cm. The mean velocity in the aortic valve is 104.0 cm/s. The dimensionless valve index is 0.58. AV area is 2.00 cm (0.94 cm /m ) by continuity, VTI. The LVOT stroke volume index is 28 ml/m . PULMONIC VALVE There is no pulmonic stenosis. There is trace pulmonic valve regurgitation. The peak gradient is 3 mmHg. AORTA The visualized aorta is normal in size. Measurements - Sinus: 3.2 cm. Sinotubular junction 2.3 cm. Mid ascending aorta 3.2 cm. INTERATRIAL SEPTUM There is no patent foramen ovale as detected by agitated saline contrast. PERICARDIUM There is no pericardial effusion. CONCLUSIONS: - Exam indication: Stroke - The left ventricle is normal in size. There is mild concentric left ventricular hypertrophy. Left ventricular systolic function is mildly decreased. EF = 52 5% (2D 4-ch.) Grade I left ventricular diastolic dysfunction due to normal for age. - The right ventricle is normal in size. Right ventricular systolic function is normal. - There is no patent foramen ovale as detected by agitated saline contrast. - No significant valvular dysfunction. - The patient has not had a prior CC echocardiographic exam for comparison. * * * Final * * * CC [facility] Medical Image : [id number] [facility] THERAPY NTon 12-09-2022 THERAPY NT HNO ID: [id number] Author: Sydnee Domingo PTA Service: Physical Therapy Author Type: Sales Floor Team Leader Type: Therapy (PT/OT/Speech/Resp) Filed: 12/09/2022 1:41 PM Note Text: Attestation signed by Young Henry PT at 12/09/2022 6:19 PM I reviewed and agree with the documentation corresponding to this therapy visit. SIGNATURE: Young Henry, PT DATE: December 09, 2022 TIME: 6:19 PM PHYSICAL THERAPY MISSED VISIT SERVICE DATE: 12/09/2022 SERVICE TIME: 1338 to 1338 ROOM: [place] [address] Patient not seen due to Test / Procedure (Echo). SIGNATURE: Sydnee Domingo PTA PATIENT NAME: Thanh Coleman DATE: December 09, 2022 TIME: 1:[address] [facility] THERAPY NTon 12-08-2022 THERAPY NT HNO ID: [id number] Author: Jayjay Nixon PTA Service: Physical Therapy Author Type: Sales Floor Team Leader Type: Therapy (PT/OT/Speech/Resp) Filed: 12/08/2022 9:38 AM Note Text: Attestation signed by Nataliya Flower PT at 12/08/2022 12:16 PM I reviewed and agree with the documentation corresponding to this therapy visit. SIGNATURE: Nataliya Flower PT DATE: December 08, 2022 TIME: 12:16 PM Physical Therapy Treatment SERVICE DATE: 12/08/2022 SERVICE TIME: 921 to 933 ROOM: [id number] Total Joint Replacement Discharge Readiness: Not Applicable Recommended Discharge Disposition: Home PT Recommended Discharge Disposition Comments: Pt would benefit from HHPT to improve independence and decrease fall risk. Anticipated Discharge Needs: Supervision at Home Supervision at Home due to: Decreased safety awareness Recommended Discharge Equipment: To Be Determined PT 6 Clicks Score: 23 Precautions/Activity Restrictions: Fall Risk Current Hospital Course: stroke work up Reason for Hospital Admission: CVA Relevant Past Medical History: hypertension, hypercholesterolemia, pacemaker in place, coronary artery disease, chronic kidney disease, COPD, descending AAA Response to Therapy Interventions: Good Participation in Activities Assessment Comments: Pt tolerated session well. Pt is WALLY/SUPV for all aspects of functioanl mobility. Pt is safe for home going upon discharge. Continued Skilled Needs Due to: Functional Mobility/Skill Impairments Physical Therapy Problem List: Decreased Activity Tolerance Treatment Interventions: Strengthening, Functional Mobility Training Plan for Next Visit: Gait Training Home Environment Patient Lives With: Self/Alone Assistance Available: PRN, Pan Puller Entry To Home: No Stairs Number Of Stairs To Bed/Bath: 0 Tub/Shower Type: tub/shower combo Laundry: aide completes Equipment Owned: Cane Prior Functional Level: Within Functional Limits Prior Functional Level Comments: pt reports independence with ADLs, [employer] completes IADLs, pt denies device use, denies falls, drives and completes is own grocery shopping Baseline Cognition: Oriented to self, Oriented to time, Oriented to place, Oriented to situation Subjective: Pt agreeable to therapy CURRENT FUNCTIONAL STATUS: Most recent performance Current Functional Mobility Assist Level Additional Information Rolling Independent Supine to Sit Modified Independent Sit to Supine Modified Independent Scooting Sit to Stand Supervision Stand to Sit Supervision Bed to Chair Supervision Bed To Chair Transfer Type: Stepping Bed To Chair Transfer Equipment: (none) Toilet/Commode Gait Supervision Gait Device: None Gait Distance (feet): >300ft Stairs Supervision Stairs Device: Rail Number of Stairs: 8 Curb Step Car Transfer Blank tomlinson indicate activity not attempted General Deviations/Observations : Constance decreased, Narrow Base of Support, Step length decreased Balance: Static Sitting, Dynamic Sitting, Static Standing, Dynamic Standing Static Sitting Balance: Normal Patient able to maintain steady balance without handhold support Dynamic Sitting Balance: Normal Patient accepts maximal challenge and can shift weight easily within full range in all directions Static Standing Balance: Good Patient able to maintain balance without handhold support, limited postural sway Dynamic Standing Balance: Good Patient accepts moderate challenge, able to maintain balance while picking up object off floor Activity Tolerance: Sitting Activity Sitting Activity: B LE exercises including ankle pumps, marches, and LAQ. JH-HLM: 8: Walk 250 feet or more Learning/Educational Needs: Functional Activities/Mobility, Plan of Care, Rehabilitation Techniques and Procedures Goals for Plan of Care: Patient/Caregiver Goals: Go Home Goals: Patient will demonstrate progress to optimize functional mobility, maximize activity tolerance and endurance to maximize function upon discharge. Able to Perform HEP with: Independent Rolling with: Modified Independent Transfer Supine to/from Sit with: Modified Independent Transfer Sit to/from Stand with: Modified Independent Ambulate with: Modified Independent Distance: 80ft Device: Wheeled Walker Ambulate Up and Down Steps with: Modified Independent Number of Steps: 8 Device: Rail Progress Toward Goals: Progressing as expected Rehab Potential: Good Patient will be discontinued from Physical Therapy when no further skilled needs are identified in this setting. PLAN: PT Frequency: 6 Times Per Week Plan of Care developed with: Patient TREATMENT INTERVENTIONS: Therapy Diagnosis: Reduced mobility-other Interventions Provided: Gait Training (60974) Gait Training (18554 (more content not included)... Normal [facility] Basic metabolic 2000 panelon 12-07-2022 Anion gap [Moles/Vol] 9 mmol/L Normal -16 [facility] Comment on above: Order Comment: Speci men Type: BLOOD SPECIMEN Ordering Facility: [facility] Address: [address] [place] [address] Performed By: #### 5 7021-8, 58309-5 #### [facility] CLIA [id number] [address] [place] [address] [place] Calcium [Mass/Vol] 9.1 mg/dL Normal 8.5-10.5 [facility] Comment on above: Order Comment: Speci men Type: BLOOD SPECIMEN Ordering Facility: [facility] Address: [address] [place] [address] Performed By: #### 5 7021-8, 68742-3 #### [facility] CLIA [id number] [address] [place] [address] [place] Chloride [Moles/Vol] 109 mmol/L High 98-107 [facility] Comment on above: Order Comment: Speci men Type: BLOOD SPECIMEN Ordering Facility: [facility] Address: [address] [place] [address] Performed By: #### 5 7021-8, 82769-0 #### [facility] CLIA [id number] [address] [place] [address] [place] CO2 [Moles/Vol] 26 mmol/L Normal 21-32 [facility] Comment on above: Order Comment: Speci men Type: BLOOD SPECIMEN Ordering Facility: [facility] Address: [address] [place] [address] Performed By: #### 5 7021-8, 86849-3 #### [facility] CLIA [id number] [address] [place] [address] [place] Creatinine [Mass/Vol] 1.28 mg/dL Normal 0.50-1.40 [facility] Comment on above: Order Comment: Speci men Type: BLOOD SPECIMEN Ordering Facility: [facility] Address: [address] [place] [address] Result Comment: Cristina ents receiving either N-Acetylcysteine (NAC) or Metamizole prior to venipuncture, may have falsely depressed results. Performed By: #### 5 7021-8, 44093-6 #### [facility] CLIA [id number] [address] [place] [address] [place] Creatinine and Glomerular filtration rate.predicted panel (S/P/Bld) 54 mL/min/1.73m??? Low >=60 [facility] Comment on above: Order Comment: Speci men Type: BLOOD SPECIMEN Ordering Facility: [facility] Address: [address] [place] [address] Result Comment: Rosalba mated Glomerular Filtration Rate (eGFR) is calculated using the 2020 CKD-EPI creatinine equation. This equation utilizes serum creatinine, sex, and age as parameters. The creatinine assay has traceable calibration to isotope dilution-mass spectrometry. Refer to KDIGO guidelines for clinical interpretation. In patients with unstable renal function, e.g. those with acute kidney injury, the eGFR may not accurately reflect actual GFR. Performed By: #### 5 7021-8, 42020-7 #### [facility] CLIA [id number] [address] [place] [address] [place] Glucose [Mass/Vol] 90 mg/dL Normal 70-100 [facility] Comment on above: Order Comment: Fariba vivar Type: BLOOD SPECIMEN Ordering Facility: [facility] Address: [address] [place], [place] [address] Result Comment: The [place] Diabetes Association (ADA) provides guidance for cutoff values for fasting glucose and random glucose. The ADA defines fasting as no caloric intake for at least 8 hours. Fasting plasma glucose results between 100 to 125 mg/dL indicate increased risk for diabetes (prediabetes). Fasting plasma glucose results greater than or equal to 126 mg/dL meet the criteria for diagnosis of diabetes. In the absence of unequivocal hyperglycemia, results should be confirmed by repeat testing. In a patient with classic symptoms of hyperglycemia or hyperglycemic crisis, random plasma glucose results greater than or equal to 200 mg/dL meet the criteria for diagnosis of diabetes. Reference: Standards of Medical Care in Diabetes 2016, [place] Diabetes Association. Diabetes Care. 2016.39(Suppl 1). Results may be falsely elevated after the administration of Sulfapyridine. Results may be falsely depressed after the administration of Sulfasalazine. Performed By: #### 5 7021-8, 73265-2 #### [facility] CLIA [id number] [address] [place], [place] [address] [place] Potassium [Moles/Vol] 3.9 mmol/L Normal 3.5-5.1 [facility] Comment on above: Order Comment: Fariba vivar Type: BLOOD SPECIMEN Ordering Facility: [facility] Address: [address] [place] [address] Performed By: #### 5 7021-8, 21581-9 #### [facility] CLIA [id number] [address] [place] [address] [place] Sodium [Moles/Vol] 144 mmol/L Normal 136-145 [facility] Comment on above: Order Comment: Speci men Type: BLOOD SPECIMEN Ordering Facility: [facility] Address: [address] [place] [address] Performed By: #### 5 7021-8, 99799-0 #### [facility] CLIA [id number] [address] [place] [address] [place] Urea nitrogen [Mass/Vol] 22 mg/dL Normal 7- [facility] Comment on above: Order Comment: Speci men Type: BLOOD SPECIMEN Ordering Facility: [facility] Address: [address] [place] [address] Performed By: #### 5 7021-8, 79773-9 #### [facility] CLIA [id number] [address] [place] [address] [place] CBC W Auto Differential pane l (Bld)on 12-07-2022 Basophils (Bld) [#/Vol] 0.07 10*3/uL Normal <0.11 [facility] Comment on above: Order Comment: Speci men Type: BLOOD SPECIMEN Ordering Facility: [facility] Address: [address] [place] [address] Performed By: #### 5 7021-8, 00274-9 #### [facility] CLIA [id number] [address] [place] [address] [place] Basophils/100 WBC (Bld) 1.0 % Normal [facility] Comment on above: Order Comment: Speci men Type: BLOOD SPECIMEN Ordering Facility: [facility] Address: [address] [place] [address] Performed By: #### 5 7021-8, 95865-3 #### [facility] CLIA [id number] [address] [place] [address] [place] Differential cell count method Nom (Bld) Auto Normal [facility] Comment on above: Order Comment: Speci men Type: BLOOD SPECIMEN Ordering Facility: [facility] Address: [address] [place] [address] Performed By: #### 5 7021-8, 69052-4 #### [facility] CLIA [id number] [address] [place] [address] [place] Eosinophils (Bld) [#/Vol] 0.33 10*3/uL Normal <0.46 [facility] Comment on above: Order Comment: Speci men Type: BLOOD SPECIMEN Ordering Facility: [facility] Address: [address] [place] [address] Performed By: #### 5 7021-8, 02248-0 #### [facility] CLIA [id number] [address] [place] [address] [place] Eosinophils/100 WBC (Bld) 4.5 % Normal [facility] Comment on above: Order Comment: Speci men Type: BLOOD SPECIMEN Ordering Facility: [facility] Address: [address] [place] [address] Performed By: #### 5 7021-8, 92882-6 #### [facility] CLIA [id number] [address] [place] [address] [place] Erythrocyte distribution width (RBC) [Ratio] 13.0 % Normal 11.5-15.0 [facility] Comment on above: Order Comment: Speci men Type: BLOOD SPECIMEN Ordering Facility: [facility] Address: [address] [place] [address] Performed By: #### 5 7021-8, 51366-2 #### [facility] CLIA [id number] [address] [place] [address] [place] Hematocrit (Bld) [Volume fraction] 37.9 % Low 39.0-51.0 [facility] Comment on above: Order Comment: Speci men Type: BLOOD SPECIMEN Ordering Facility: [facility] Address: [address] [place] [address] Performed By: #### 5 7021-8, 57259-3 #### [facility] CLIA [id number] [address] [place] [address] [place] Hemoglobin (Bld) [Mass/Vol] 12.2 g/dL Low 13.0-17.0 [facility] Comment on above: Order Comment: Speci men Type: BLOOD SPECIMEN Ordering Facility: [facility] Address: [address] [place] [address] Performed By: #### 5 7021-8, 60794-4 #### [facility] CLIA [id number] [address] [place] [address] [place] Immature granulocytes (Bld) [#/Vol] 0.04 10*3/uL Normal <0.10 [facility] Comment on above: Order Comment: Speci men Type: BLOOD SPECIMEN Ordering Facility: [facility] Address: [address] [place] [address] Performed By: #### 5 7021-8, 38986-6 #### [facility] CLIA [id number] [address] [place] [address] [place] Immature granulocytes/100 WBC (Bld) 0.6 % Normal [facility] Comment on above: Order Comment: Speci men Type: BLOOD SPECIMEN Ordering Facility: [facility] Address: [address] [place] [address] Performed By: #### 5 7021-8, 48265-4 #### [facility] CLIA [id number] [address] [place] [address] [place] Lymphocytes (Bld) [#/Vol] 1.57 10*3/uL Normal 1.00-4.00 [facility] Comment on above: Order Comment: Speci men Type: BLOOD SPECIMEN Ordering Facility: [facility] Address: [address] [place] [address] Performed By: #### 5 7021-8, 86702-8 #### [facility] CLIA [id number] [address] [place] [address] [place] Lymphocytes/100 WBC (Bld) 21.6 % Normal [facility] Comment on above: Order Comment: Speci men Type: BLOOD SPECIMEN Ordering Facility: [facility] Address: [address] [place] [address] Performed By: #### 5 7021-8, 16988-8 #### [facility] CLIA [id number] [address] [place] [address] MCH (RBC) [Entitic mass] 28.6 pg Normal 26.0-34.0 [facility] Comment on above: Order Comment: Speci men Type: BLOOD SPECIMEN Ordering Facility: [facility] Address: [address] [place] [address] Performed By: #### 5 7021-8, 91294-6 #### [facility] CLIA [id number] [address] [place] [address] [place] MCHC (RBC) [Mass/Vol] 32.2 g/dL Normal 30.5-36.0 [facility] Comment on above: Order Comment: Speci men Type: BLOOD SPECIMEN Ordering Facility: [facility] Address: [address] [address] Performed By: #### 5 7021-8, 78220-8 #### [facility] CLIA [id number] [address] [place] [address] [place] MCV (RBC) [Entitic vol] 89.0 fL Normal 80.0-100.0 [facility] Comment on above: Order Comment: Speci men Type: BLOOD SPECIMEN Ordering Facility: [facility] Address: [address] [place] [address] Performed By: #### 5 7021-8, 88905-9 #### [facility] CLIA [id number] [address] [place] [address] [place] Monocytes (Bld) [#/Vol] 0.77 10*3/uL Normal <0.87 [facility] Comment on above: Order Comment: Speci men Type: BLOOD SPECIMEN Ordering Facility: [facility] Address: [address] [place] [address] Performed By: #### 5 7021-8, 90562-9 #### [facility] CLIA [id number] [address] [place] [address] [place] Monocytes/100 WBC (Bld) 10.6 % Normal [facility] Comment on above: Order Comment: Speci men Type: BLOOD SPECIMEN Ordering Facility: [facility] Address: [address] [address] Performed By: #### 5 7021-8, 15125-5 #### [facility] CLIA [id number] [address] [place] [address] [place] Neutrophils (Bld) [#/Vol] 4.48 10*3/uL Normal 1.45-7.50 [facility] Comment on above: Order Comment: Speci men Type: BLOOD SPECIMEN Ordering Facility: [facility] Address: [address] [place] [address] Performed By: #### 5 7021-8, 39335-7 #### [facility] CLIA [id number] [address] [place] [address] [place] Neutrophils/100 WBC (Bld) 61.7 % Normal [facility] Comment on above: Order Comment: Speci men Type: BLOOD SPECIMEN Ordering Facility: [facility] Address: [address] [place] [address] Performed By: #### 5 7021-8, 17008-4 #### [facility] CLIA [id number] [address] [place] [address] [place] Nucleated RBC (Bld) [#/Vol] 10*3/uL Normal <0.01 [facility] Comment on above: Order Comment: Speci men Type: BLOOD SPECIMEN Ordering Facility: [facility] Address: [address] [place] [address] Performed By: #### 5 7021-8, 70131-9 #### [facility] CLIA [id number] [address] [place] [address] [place] Nucleated RBC/100 WBC (Bld) [Ratio] 0.0 /100 WBC Normal [facility] Comment on above: Order Comment: Speci men Type: BLOOD SPECIMEN Ordering Facility: [facility] Address: [address] [place] [address] Performed By: #### 5 7021-8, 57072-3 #### [facility] CLIA [id number] [address] [place] [address] [place] Platelet mean volume (Bld) [Entitic vol] 11.2 fL Normal 9.0-12.7 [facility] Comment on above: Order Comment: Speci men Type: BLOOD SPECIMEN Ordering Facility: [facility] Address: [address] [place] [address] Performed By: #### 5 7021-8, 70402-8 #### [facility] CLIA [id number] [address] [place] [address] [place] Platelets (Bld) [#/Vol] 175 10*3/uL Normal 150-400 [facility] Comment on above: Order Comment: Speci men Type: BLOOD SPECIMEN Ordering Facility: [facility] Address: [address] [place] [address] Performed By: #### 5 7021-8, 03562-9 #### [facility] CLIA [id number] [address] [place] [address] [place] RBC (Bld) [#/Vol] 4.26 10*6/uL Normal 4.20-6.00 [facility] Comment on above: Order Comment: Speci men Type: BLOOD SPECIMEN Ordering Facility: [facility] Address: [address] [place] [address] Performed By: #### 5 7021-8, 07286-0 #### [facility] CLIA [id number] [address] [place] [address] [place] WBC (Bld) [#/Vol] 7.26 10*3/uL Normal 3.70-11.00 [facility] Comment on above: Order Comment: Speci men Type: BLOOD SPECIMEN Ordering Facility: [facility] Address: [address] [place] [address] [place] [address] Performed By: #### 5 7021-8, 31573-4 #### [facility] CLIA [id number] [address] [place], [place] [address] [facility] [place] CONSULTon 12-07-2022 CONSULT HNO ID: [id number] Author: Sebas Garcia MD Service: Vascular Surgery Author Type: Physician Type: Consults Filed: 12/07/2022 9:40 AM Note Text: VASCULAR SURGERY CONSULT HISTORY AND PHYSICAL SERVICE DATE: 12/07/2022 SERVICE TIME: 830a Subjective CHIEF COMPLAINT: None HPI: Thanh Coleman is a 87 year old White male is being seen at the request of Dr. Dubose for a consultation and evaluation/management of carotid vascular disease possible TIA versus CVA. he reports the following symptoms: Reported to have some Dinah facial drooping and weakness. Found at home he lives independently. Patient's symptoms are resolved seen by neurology as well known carotid disease previous work-up at [facility] . no films to resume review however are on our system. . CARDIOVASCULAR RISK FACTORS: hypertension and hyperlipidemia PAST MEDICAL HISTORY: PAST MEDICAL HISTORY Diagnosis Date Anticoagulant long-term use Aortic aneurysm ([facility]) s/p repair AAA Atrial flutter (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) 12/2015 COPD (chronic obstructive pulmonary disease) (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 (HCC) 07/02/2021 Hypertriglyceridemia Low HDL (under 40) Neuropathy Palpitations 12/23/2019 Permanent atrial fibrillation (HCC) 08/10/2015 Presence of cardiac pacemaker 08/10/2015 Presence of drug coated stent in left circumflex coronary artery 08/10/2015 Sick sinus syndrome (HCC) 08/10/2015 Stage 3b chronic kidney disease (HCC) 12/21/2015 TB (pulmonary tuberculosis) Thrombocytopenia (HCC) PAST SURGICAL HISTORY: PAST SURGICAL HISTORY Procedure Laterality Date ABD AORTIC ANEURYSM REPAIR CORONARY STENT EA VESSEL 3-2008 x 2, drug eluting ILIAC SLEEPING BAG FILLER W/WO STENT PACEMAKER DUAL CHAMBER TIER 0 -2012 PAST SURGICAL HISTORY OF resection lobe of lung,,AAA FAMILY HISTORY: FAMILY HISTORY Problem Relation Age of Onset No Ocular Disease Mother other (TB) Mother Stroke Father No Ocular Disease Father Cancer Brother Kidney Disease Sister SOCIAL HISTORY: Social History Tobacco Use Smoking status: Every Day Types: Cigarettes Smokeless tobacco: Never Tobacco comments: PK EVERY 3 DAYS Vaping Use Vaping Use: Former Substances: Nicotine Devices: Disposable Substance Use Topics Alcohol use: No Drug use: No MEDICATIONS: Prior to Admission Medications: furosemide (LASIX) 20 mg tabletTAKE 1 TABLET BY MOUTH DAILY AFTER BREAKFAST *FOR SWELLINGDisp: 30 tabletRfl: 2 ezetimibe (ZETIA) 10 mg tabletTake 1 tablet by mouth once daily.Disp: 90 tabletRfl: 3 atorvastatin (LIPITOR) 40 mg tabletTake 1 tablet by mouth once daily.Disp: 90 tabletRfl: 3 metoprolol tartrate, short acting, (LOPRESSOR) 100 mg tabletTake 1 tablet by mouth twice daily.Disp: 180 tabletRfl: 3 potassium chloride (KLOR-CON 10) 10 mEq tabletTake 1 tablet by mouth once daily.Disp: 30 tabletRfl: 11 Fenofibrate (LOFIBRA) 54 mg tabletTake 1 tablet by mouth once daily.Disp: 90 tabletRfl: 3 apixaban (ELIQUIS) 2.5 mg tab(s)Take 1 tablet by mouth twice daily.Disp: 180 tabletRfl: 3 Cholecalciferol, Vitamin D3, 50 mcg (2,000 unit) capTake 1 capsule by mouth once daily.Disp: 30 capsuleRfl: 3 nitroglycerin sublingual (NITROQUICK) 0.4 mg SL tabletDissolve 1 tablet under the tongue every 5 minutes as needed.Disp: 1 Bottle of 25Rfl: 4 albuterol HFA (VENTOLIN HFA) 90 mcg/actuation inhalerInhale 2 Puffs as instructed every 4 hours as needed for wheezing/shortness of breath.Disp: 18 gRfl: 2 aspirin, enteric coated (ASPIRIN, ENTERIC COATED) 81 mg EC tabletTake 81 mg by mouth once daily.Disp: Rfl: Current Facility-Administered Medications Medication Dose Route Frequency NaCl 0.9% iv flush bag 20 mL INTRAVENOUS PRN aspirin 81 mg chewable tab(s) 81 mg ORAL/FEEDING TUBE DAILY pantoprazole DR 40 mg tab(s) (PROTONIX) 40 mg ORAL DAILY (6 AM) ondansetron (PF) 4 mg injection (ZOFRAN) 4 mg INTRAVENOUS q 6 H PRN nicotine 14 mg/24 hr 1 Patch (NICODERM) 1 Patch TRANSDERMAL DAILY And nicotine -- REMOVE patch OTHER DAILY And nicotine - verify patch OTHER q 8 H sodium chloride 0.9 % (flush) 2-10 mL (BD POSIFLUSH) 2-10 mL INTRAVENOUS DIRECTED PRN And perflutren lipid microspheres 1.1 mg/mL 1.3 mL in (more content not included)... Normal [facility] Magnesium SerPl-mCncon 12-07 Magnesium [Mass/Vol] 1.9 mg/dL Normal 1.6-2.6 [facility] Comment on above: Order Comment: Speci men Type: BLOOD SPECIMEN Ordering Facility: [facility] Address: [address] [place] [id number] Performed By: #### 5 7021-8, 27615-9 #### [facility] CLIA [id number] [address] [place] [address] [place] THERAPY NTon 12-07-2022 THERAPY NT HNO ID: [id number] Author: Jayjay Nixon PTA Service: Physical Therapy Author Type: Sales Floor Team Leader Type: Therapy (PT/OT/Speech/Resp) Filed: 12/07/2022 9:51 AM Note Text: Attestation signed by Nataliya Flower PT at 12/07/2022 3:52 PM I reviewed and agree with the documentation corresponding to this therapy visit. SIGNATURE: Nataliya Flower PT DATE: December 07, 2022 TIME: 3:52 PM Physical Therapy Treatment SERVICE DATE: 12/07/2022 SERVICE TIME: 935 to 45 ROOM: [place] [address] Total Joint Replacement Discharge Readiness: Not Applicable Recommended Discharge Disposition: Home PT Recommended Discharge Disposition Comments: Pt would benefit from HHPT to improve independence and decrease fall risk. Anticipated Discharge Needs: Supervision at Home Supervision at Home due to: Decreased safety awareness Recommended Discharge Equipment: To Be Determined PT 6 Clicks Score: 22 Precautions/Activity Restrictions: Fall Risk Current Hospital Course: stroke work up Reason for Hospital Admission: CVA Relevant Past Medical History: hypertension, hypercholesterolemia, pacemaker in place, coronary artery disease, chronic kidney disease, COPD, descending AAA Response to Therapy Interventions: Good Participation in Activities Assessment Comments: Pt tolerated session well. Pt SUPV/SBA for all aspects of fucntional mobility. Pt is demonstrating fair overall safety with minimal cues, slight instability no true LOB noted. Pt would benefit from continued HHPT to increase safety, strength/endurance to improve overall functional mobility. 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, pt denies device use, denies falls, drives and completes is own grocery shopping Baseline Cognition: Oriented to self, Oriented to time, Oriented to place, Oriented to situation Subjective: Pt agreeable to therapy CURRENT FUNCTIONAL STATUS: Most recent performance Current Functional Mobility Assist Level Additional Information Rolling Independent Supine to Sit Modified Independent Sit to Supine Modified Independent Scooting Sit to Stand Supervision Stand to Sit Supervision Bed to Chair Toilet/Commode Gait Supervision Gait Device: None, Wheeled Walker Gait Distance (feet): [id number] Stairs Supervision Stairs Device: Rail Number of Stairs: 8 Curb Step Car Transfer Blank tomlinson indicate activity not attempted General Deviations/Observations : Constance decreased, Narrow Base of Support, Step length decreased Balance: Static Sitting, Dynamic Sitting, Static Standing, Dynamic Standing Static Sitting Balance: Normal Patient able to maintain steady balance without handhold support Dynamic Sitting Balance: Normal Patient accepts maximal challenge and can shift weight easily within full range in all directions Static Standing Balance: Good Patient able to maintain balance without handhold support, limited postural sway Dynamic Standing Balance: Good Patient accepts moderate challenge, able to maintain balance while picking up object off floor Activity Tolerance: Sitting Activity Sitting Activity: B LE exercises including ankle pumps, marches, and LAQ. -M: 7: Walk 25 feet or more Learning/Educational Needs: Functional Activities/Mobility, Plan of Care, Rehabilitation Techniques and Procedures Goals for Plan of Care: Patient/Caregiver Goals: Go Home Goals: Patient will demonstrate progress to optimize functional mobility, maximize activity tolerance and endurance to maximize function upon discharge. Able to Perform HEP with: Independent Rolling with: Modified Independent Transfer Supine to/from Sit with: Modified Independent Transfer Sit to/from Stand with: Modified Independent Ambulate with: Modified Independent Distance: 80ft Device: Wheeled Walker Ambulate Up and Down Steps with: Modified Independent Number of Steps: 8 Device: Rail Progress Toward Goals: Progressing as expected Rehab Potential: Good Patient will be discontinued from Physical Therapy when no further skilled needs are identified in this setting. PLAN: PT Frequency: 6 Times Per Week Plan of Care developed with: Patient TREATMENT INTERVENTIONS: Th (more content not included)... Normal [facility] Urinalysis complete panel (U )on 12-07-2022 Bacteria LM.HPF (Urine sed) [#/Area] None Seen Normal None Seen [facility] Comment on above: Order Comment: Speci men Type: BLOOD SPECIMEN Ordering Facility: [facility] Address: [address] [place] [id number] Performed By: #### 5 7021-8, 89555-5 #### [facility] CLIA [id number] [address] [place] [address] [place] Bilirubin Ql (U) Negative Normal Negative [facility] Comment on above: Order Comment: Speci men Type: BLOOD SPECIMEN Ordering Facility: [facility] Address: [address] [place] [address] Performed By: #### 5 7021-8, 69010-4 #### [facility] CLIA [id number] [address] [place] [address] [place] Clarity (Unsp spec) Clear Normal Clear [facility] Comment on above: Order Comment: Speci men Type: BLOOD SPECIMEN Ordering Facility: [facility] Address: [address] [place] [address] Performed By: #### 5 7021-8, 36001-0 #### [facility] CLIA [id number] [address] [place] [address] [place] Color (U) Yellow Normal Yellow [facility] Comment on above: Order Comment: Speci men Type: BLOOD SPECIMEN Ordering Facility: [facility] Address: [address] [place] [address] Performed By: #### 5 7021-8, 62403-8 #### [facility] CLIA [id number] [address] [place] [address] [place] Epithelial cells LM.HPF (Urine sed) [#/Area] None Seen Normal [facility] Comment on above: Order Comment: Speci men Type: BLOOD SPECIMEN Ordering Facility: [facility] Address: [address] [place] [address] Performed By: #### 5 7021-8, 57171-8 #### [facility] CLIA [id number] [address] [place] [address] [place] Glucose Test strip (U) [Mass/Vol] Negative Normal Negative [facility] Comment on above: Order Comment: Speci men Type: BLOOD SPECIMEN Ordering Facility: [facility] Address: [address] [address] Performed By: #### 5 7021-8, 51189-7 #### [facility] CLIA [id number] [address] [place] [address] Hemoglobin Ql (U) 1+ Abnormal Negative [facility] Comment on above: Order Comment: Speci men Type: BLOOD SPECIMEN Ordering Facility: [facility] Address: [address] [address] Performed By: #### 5 7021-8, 47335-5 #### [facility] CLIA [id number] [address] [place] [address] Ketones Ql (U) Negative Normal Negative [facility] Comment on above: Order Comment: Speci men Type: BLOOD SPECIMEN Ordering Facility: [facility] Address: [address] [place] [address] Performed By: #### 5 7021-8, 74896-0 #### [facility] CLIA [id number] [address] [place] [address] [place] Leukocyte esterase Test strip Ql (U) Negative Normal Negative [facility] Comment on above: Order Comment: Speci men Type: BLOOD SPECIMEN Ordering Facility: [facility] Address: [address] [place] [address] Performed By: #### 5 7021-8, 58084-8 #### [facility] CLIA [id number] [address] [place] [address] [place] Nitrite Ql (U) Negative Normal Negative [facility] Comment on above: Order Comment: Speci men Type: BLOOD SPECIMEN Ordering Facility: [facility] Address: [address] [place] [address] Performed By: #### 5 7021-8, 21535-9 #### [facility] CLIA [id number] [address] [place] [address] [place] pH (U) 6.0 [pH] Normal 5.0-8.0 [facility] Comment on above: Order Comment: Speci men Type: BLOOD SPECIMEN Ordering Facility: [facility] Address: [address] [address] Performed By: #### 5 7021-8, 42033-3 #### [facility] CLIA [id number] [address] [place] [address] Protein (U) [Mass/Vol] Negative Normal Negative [facility] Comment on above: Order Comment: Speci men Type: BLOOD SPECIMEN Ordering Facility: [facility] Address: [address] [address] Performed By: #### 5 7021-8, 51851-3 #### [facility] CLIA [id number] [address] [place] [address] [place] RBC LM.HPF (Urine sed) [#/Area] 0-3 /HPF Normal 0-3 /HPF [facility] Comment on above: Order Comment: Speci men Type: BLOOD SPECIMEN Ordering Facility: [facility] Address: [address] [place] [address] Performed By: #### 5 7021-8, 86412-2 #### [facility] CLIA [id number] [address] [place] [address] [place] Specific gravity (U) [Rel density] 1.011 Normal 1.005-1.030 [facility] Comment on above: Order Comment: Speci men Type: BLOOD SPECIMEN Ordering Facility: [facility] Address: [address] [address] Performed By: #### 5 7021-8, 37832-4 #### [facility] CLIA [id number] [address] [place] [address] [place] Urobilinogen Ql (U) Negative Normal Negative [facility] Comment on above: Order Comment: Speci men Type: BLOOD SPECIMEN Ordering Facility: [facility] Address: [address] [address] Performed By: #### 5 7021-8, 32868-3 #### [facility] CLIA [id number] [address] WBC LM.HPF (Urine sed) [#/Area] 0-5 /HPF Normal 0-5 /HPF [facility] Comment on above: Order Comment: Speci men Type: BLOOD SPECIMEN Ordering Facility: [facility] Address: [address] [place], [place] [id number] Performed By: #### 5 7021-8, 75273-6 #### [facility] CLIA [id number] [address] [address] [facility] CASE MGT INIT ASSESon 2022 CASE MGT INIT ASSES HNO ID: [id number] Author: Mulu Willoughby RN Service: ? Author Type: Registered Nurse Type: Care Mgt Initial Assessment Filed: 12/06/2022 1:50 PM Note Text: CARE MANAGEMENT: ASSESSMENT AND DISCHARGE PLAN SERVICE DATE: December 06, 2022 SERVICE TIME: 1:15 PM PCP: Boo Marina DO Primary Contact: Extended Emergency Contact Information Primary Emergency Contact: JonaPriyanka Mobile Relation: Friend Secondary Emergency Contact: Peggy Harrington Mobile Relation: Daughter Admission Status: Inpatient Insurance Provider: [place] Discharge Planning requested by: Per Department Practice Potential Transition Plans To Be Determined Advance Directives Current Advance Directive: Health Care Power of Environmental Field Office Manager In Chart: No Current Living Arrangements and Support Lives with: Alone Type of Residence: Private Residence (House) Support: Home care staff How do you manage to accomplish the following: Independent: Ambulation;Bathe/Shower ;Dress;Meals/Meal Prep;Going to the bathroom;Transportation to appointments/community Dependent: Medication Management Current Services/Equipment Current Post-Acute Service(s): DME Current DME Type: Other: See Comment (electronic medication dispenser) Discharge Planning Patient Goal(s): General wellness [place] of Choice Explained: Are you interested in bedside delivery of your medications? No Discharge Planning Participant(s): Patient;Children Patient/Family Comments: Caregiver Assessment: Caregiver is ready, willing and able to meet the patient's needs as recommended by the inter-professional team: No Transport at Discharge: TBD Needs Prior to Discharge: Discharge plan Post-Acute Discharge Plan: Chart reviewed Patient admitted from home alone for CVA workup d/t left facial droop, slurred speech. Per documentation, patient found by neighbor who called EMS. Neuro, vascular consulted Psych consulted for competency eval. CM met with patient to perform initial assessment this AM. Patient able to answer name, that he was in a hospital, and the year. Patient unable to explain how he got to this hospital or why he is here. As conversation goes on, patient displayed confusion, stating, I don't know multiple times. Patient was able to tell this CM he resides home alone, no DME use ,drives. Patient could tell this CM he has someone who comes to the house every so often but was unsure why or what they did when they were there. Patient stated he has 6 children, could only remember 4 of their names, and stated he is estranged form children for >6 years CM and HEALTH INFORMATION SPECIALIST with neuroNicole, performed chart review. It was discovered that patient is active with HHC through [facility] (used to be called [facility]). CM got number for a case management coordinator through that [facility] agency through our [facility] liason, Sydni, here at hospital for a Lucinda Araujo ([phone]). There were documents from home care nurse, Ellen Taylor RN, expressing concern for patient mental capacity from 10/08/22 stating [employer] Administrator calls and states that they are only able to do a level of care if it is requested by patient. Even if they could it would not get kicked up to state. They have to abide by patient's wishes. Patient would need a guardian appointment. That would require a mental competency test as well as a Statement of Expert Evaluation to help courts to redeem patient unfit and unable to care for himself. APS would then have to contacted and provider would have to provide this information. Tia states that APS would have a hard time seeing issues. From the outside looking in everything looks good. CM called CM with HHC, Lucindabarry Araujo ([phone]) in regards to patient. Lucinda explained that patient is active with [facility] SN once weekly for pill box fills. Ela expressed concern in regards to a neighbor, Nanci, as every time patient pill box alarms, the neighbor comes over to empty the pill box and takes certain pills out because the neighbor feels the medications harm the patient. Lucinda, the case management coordinator, states nursing staff have physically watched the neighbor do this and have educated the neighbor against this. CM asked Lucinda if APS has been called and she stated, No we didn't think it was that bad yet and we were instructed by her direction home case management coordinator, Balbina, not to call because it won't help. CM instructed Lucinda APS needs called by their [facility] agency as they are mandated reporters and they have witnessed things first hand. Lucinda stated she will call APS today. ____ Around 1200, CM notified that a daughter, Peggy, showed up to bedside. CM met with daughter whom reported she was called by the neighbor and notified about patient being admitted to hospital. Daughter, Peggy, reports there are 6 siblings including herself, none of which live close, everyone resides >3 hours away (more content not included)... Normal [facility] CBC W Auto Differential pane l (Bld)on 12-06-2022 Basophils (Bld) [#/Vol] 0.06 10*3/uL Normal <0.11 [facility] Comment on above: Order Comment: Speci men Type: BLOOD SPECIMEN Ordering Facility: [facility] Address: [address] [id number] Performed By: #### 5 7021-8, 79009-0 #### [facility] CLIA [id number] [address] [place] [address] [place] Basophils/100 WBC (Bld) 0.8 % Normal [facility] Comment on above: Order Comment: Speci men Type: BLOOD SPECIMEN Ordering Facility: [facility] Address: [address] [phone] Performed By: #### 5 7021-8, 96550-8 #### [facility] CLIA [id number] [address] [place] [address] [place] Differential cell count method Nom (Bld) Auto Normal [facility] Comment on above: Order Comment: Speci men Type: BLOOD SPECIMEN Ordering Facility: [facility] Address: [address] [address] Performed By: #### 5 7021-8, 20129-6 #### [facility] CLIA [id number] [address] [place] [address] [place] Eosinophils (Bld) [#/Vol] 0.35 10*3/uL Normal <0.46 [facility] Comment on above: Order Comment: Speci men Type: BLOOD SPECIMEN Ordering Facility: [facility] Address: [address] [address] Performed By: #### 5 7021-8, 08175-6 #### [facility] CLIA [id number] [address] [place] [address] [place] Eosinophils/100 WBC (Bld) 4.6 % Normal [facility] Comment on above: Order Comment: Speci men Type: BLOOD SPECIMEN Ordering Facility: [facility] Address: [address] [address] Performed By: #### 5 7021-8, 80095-4 #### [facility] CLIA [id number] [address] [place] [address] [place] Erythrocyte distribution width (RBC) [Ratio] 13.2 % Normal 11.5-15.0 [facility] Comment on above: Order Comment: Speci men Type: BLOOD SPECIMEN Ordering Facility: [facility] Address: [address] [address] Performed By: #### 5 7021-8, 95089-1 #### [facility] CLIA [id number] [address] [place] [address] [place] Hematocrit (Bld) [Volume fraction] 40.8 % Normal 39.0-51.0 [facility] Comment on above: Order Comment: Speci men Type: BLOOD SPECIMEN Ordering Facility: [facility] Address: [address] [address] Performed By: #### 5 7021-8, 69031-5 #### [facility] CLIA [id number] [address] [place] [address] [place] Hemoglobin (Bld) [Mass/Vol] 13.2 g/dL Normal 13.0-17.0 [facility] Comment on above: Order Comment: Speci men Type: BLOOD SPECIMEN Ordering Facility: [facility] Address: [address] [place] [address] Performed By: #### 5 7021-8, 83755-8 #### [facility] CLIA [id number] [address] [place] [address] [place] Immature granulocytes (Bld) [#/Vol] 0.05 10*3/uL Normal <0.10 [facility] Comment on above: Order Comment: Speci men Type: BLOOD SPECIMEN Ordering Facility: [facility] Address: [address] [place] [address] Performed By: #### 5 7021-8, 67331-5 #### [facility] CLIA [id number] [address] [place] [address] [place] Immature granulocytes/100 WBC (Bld) 0.7 % Normal [facility] Comment on above: Order Comment: Speci men Type: BLOOD SPECIMEN Ordering Facility: [facility] Address: [address] [place] [address] Performed By: #### 5 7021-8, 64844-7 #### [facility] CLIA [id number] [address] [place] [address] [place] Lymphocytes (Bld) [#/Vol] 1.66 10*3/uL Normal 1.00-4.00 [facility] Comment on above: Order Comment: Speci men Type: BLOOD SPECIMEN Ordering Facility: [facility] Address: [address] [place] [address] Performed By: #### 5 7021-8, 31351-3 #### [facility] CLIA [id number] [address] [place] [address] [place] Lymphocytes/100 WBC (Bld) 21.9 % Normal [facility] Comment on above: Order Comment: Speci men Type: BLOOD SPECIMEN Ordering Facility: [facility] Address: [address] [address] Performed By: #### 5 7021-8, 66791-3 #### [facility] CLIA [id number] [address] [place] [address] [place] MCH (RBC) [Entitic mass] 28.8 pg Normal 26.0-34.0 [facility] Comment on above: Order Comment: Speci men Type: BLOOD SPECIMEN Ordering Facility: [facility] Address: [address] [address] Performed By: #### 5 7021-8, 28582-7 #### [facility] CLIA [id number] [address] [place] [address] [place] MCHC (RBC) [Mass/Vol] 32.4 g/dL Normal 30.5-36.0 [facility] Comment on above: Order Comment: Speci men Type: BLOOD SPECIMEN Ordering Facility: [facility] Address: [address] [address] Performed By: #### 5 7021-8, 68326-1 #### [facility] CLIA [id number] [address] [place] [address] [place] MCV (RBC) [Entitic vol] 89.1 fL Normal 80.0-100.0 [facility] Comment on above: Order Comment: Speci men Type: BLOOD SPECIMEN Ordering Facility: [facility] Address: [address] [address] Performed By: #### 5 7021-8, 21431-3 #### [facility] CLIA [id number] [address] [place] [address] [place] Monocytes (Bld) [#/Vol] 0.71 10*3/uL Normal <0.87 [facility] Comment on above: Order Comment: Speci men Type: BLOOD SPECIMEN Ordering Facility: [facility] Address: [address] [address] Performed By: #### 5 7021-8, 00047-8 #### [facility] CLIA [id number] [address] [place] [address] [place] Monocytes/100 WBC (Bld) 9.4 % Normal [facility] Comment on above: Order Comment: Speci men Type: BLOOD SPECIMEN Ordering Facility: [facility] Address: [address] [address] Performed By: #### 5 7021-8, 47070-0 #### [facility] CLIA [id number] [address] [place] [address] [place] Neutrophils (Bld) [#/Vol] 4.75 10*3/uL Normal 1.45-7.50 [facility] Comment on above: Order Comment: Speci men Type: BLOOD SPECIMEN Ordering Facility: [facility] Address: [address] [address] Performed By: #### 5 7021-8, 05240-8 #### [facility] CLIA [id number] [address] [place] [address] [place] Neutrophils/100 WBC (Bld) 62.6 % Normal [facility] Comment on above: Order Comment: Speci men Type: BLOOD SPECIMEN Ordering Facility: [facility] Address: [address] [address] Performed By: #### 5 7021-8, 71392-8 #### [facility] CLIA [id number] [address] [place] [address] [place] Nucleated RBC (Bld) [#/Vol] 10*3/uL Normal <0.01 [facility] Comment on above: Order Comment: Speci men Type: BLOOD SPECIMEN Ordering Facility: [facility] Address: [address] [place] [address] Performed By: #### 5 7021-8, 25261-5 #### [facility] CLIA [id number] [address] [place] [address] [place] Nucleated RBC/100 WBC (Bld) [Ratio] 0.0 /100 WBC Normal [facility] Comment on above: Order Comment: Speci men Type: BLOOD SPECIMEN Ordering Facility: [facility] Address: [address] [address] Performed By: #### 5 7021-8, 08877-7 #### [facility] CLIA [id number] [address] [place] [address] [place] Platelet mean volume (Bld) [Entitic vol] 11.3 fL Normal 9.0-12.7 [facility] Comment on above: Order Comment: Speci men Type: BLOOD SPECIMEN Ordering Facility: [facility] Address: [address] [place] [address] Performed By: #### 5 7021-8, 92028-3 #### [facility] CLIA [id number] [address] [place] [address] [place] Platelets (Bld) [#/Vol] 201 10*3/uL Normal 150-400 [facility] Comment on above: Order Comment: Speci men Type: BLOOD SPECIMEN Ordering Facility: [facility] Address: [address] [address] Performed By: #### 5 7021-8, 28151-7 #### [facility] CLIA [id number] [address] [place] [address] [place] RBC (Bld) [#/Vol] 4.58 10*6/uL Normal 4.20-6.00 [facility] Comment on above: Order Comment: Speci men Type: BLOOD SPECIMEN Ordering Facility: [facility] Address: [address] Performed By: #### 5 7021-8, 74302-7 #### [facility] CLIA [id number] [address] [place] [address] [place] WBC (Bld) [#/Vol] 7.58 10*3/uL Normal 3.70-11.00 [facility] Comment on above: Order Comment: Speci men Type: BLOOD SPECIMEN Ordering Facility: [facility] Address: [address], [place] [address] Performed By: #### 5 7021-8, 34480-2 #### [facility] CLIA [id number] [address] [place] [address] [place] CONSULTon 12-06-2022 CONSULT HNO ID: [id number] Author: Matias Lebron MD Service: Neurology General Author Type: Physician Type: Consults Filed: 12/06/2022 3:32 PM Note Text: NEUROLOGY CONSULT NOTE SERVICE DATE: 12/06/2022 Current Attending Provider: Raffy Daly MD Subjective HPI: Patient is a 87 year old male for whom neurology was consulted to evaluate for stroke symptoms. Patient lives alone at baseline but there are reports of concerns for his memory for at least a year. Also concerns about his compliance. He has atrial fibrillation and supposed to be taking Eliquis 2.5 mg twice daily but he seems to forget to take his medication. He also has known carotid stenosis, coronary artery disease, pacemaker, hypertension, hyperlipidemia. He was found yesterday by a neighbor with slurred speech and a left-sided facial droop. He was taken to [facility] where head CT was unremarkable. CTA demonstrated 70% stenosis of left ICA and greater than 70% stenosis of right ICA. Also mild narrowing in left M1. He was transferred here for further evaluation. His symptoms seem mostly resolved though he does have mild left nasolabial flattening. Patient does not recall having symptoms yesterday. He lives in [place] thought he was taken directly to a hospital in [place]. He does not know who his legislative director is or where their office is located. He said he knows he has been told he has memory issues but does not think it is an issue. He said it has been a while since he saw his legislative director and that is why he does not remember who exactly they are. 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) 12/2015 COPD (chronic obstructive pulmonary disease) (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) 07/02/2021 Hypertriglyceridemia Low HDL (under 40) Neuropathy Palpitations 12/23/2019 Permanent atrial fibrillation ([facility]) 08/10/2015 Presence of cardiac pacemaker 08/10/2015 Presence of drug coated stent in left circumflex coronary artery 08/10/2015 Sick sinus syndrome ([facility]) 08/10/2015 Stage 3b chronic kidney disease ([facility]) 12/21/2015 TB (pulmonary tuberculosis) Thrombocytopenia ([facility]) PAST SURGICAL HISTORY Procedure Laterality Date ABD AORTIC ANEURYSM REPAIR CORONARY STENT EA VESSEL 3-2008 x 2, drug eluting ILIAC SLEEPING BAG FILLER W/WO STENT PACEMAKER DUAL CHAMBER TIER 0 -2012 PAST SURGICAL HISTORY OF resection lobe of lung,,AAA Social History Tobacco Use Smoking status: Every Day Types: Cigarettes Smokeless tobacco: Never Tobacco comments: PK EVERY 3 DAYS Vaping Use Vaping Use: Former Substances: Nicotine Devices: Disposable Substance Use Topics Alcohol use: No Drug use: No FAMILY HISTORY Problem Relation Age of Onset No Ocular Disease Mother other (TB) Mother Stroke Father No Ocular Disease Father Cancer Brother Kidney Disease Sister ALLERGIES Allergen Reactions Dust Other: See Comments Grass Pollen Other: See Comments Mold Spores Other: See Comments Prior to Admission Medications Prescriptions Last Dose Informant Patient Reported? Taking? Cholecalciferol, Vitamin D3, 50 mcg (2,000 unit) cap No No Sig: Take 1 capsule by mouth once daily. Fenofibrate (LOFIBRA) 54 mg tablet No Yes Sig: Take 1 tablet by mouth once daily. albuterol HFA (VENTOLIN HFA) 90 mcg/actuation inhaler No No Sig: Inhale 2 Puffs as instructed every 4 hours as needed for wheezing/shortness of breath. apixaban (ELIQUIS) 2.5 mg tab(s) No Yes Sig: Take 1 tablet by mouth twice daily. aspirin, enteric coated (ASPIRIN, ENTERIC COATED) 81 mg EC tablet Yes No Sig: Take 81 mg by mouth once daily. atorvastatin (LIPITOR) 40 mg tablet No Yes Sig: Take 1 tablet by mouth once daily. ezetimibe (ZETIA) 10 mg tablet No Yes Sig: Take 1 tablet by mouth once daily. furosemide (LASIX) 20 mg tablet No Yes Sig: TAKE 1 TABLET BY MOUTH DAILY AFTER BREAKFAST *FOR SWELLING metoprolol tartrate, short acting, (LOPRESSOR) 100 mg tablet No Yes Sig: Take 1 tablet by mouth twice daily. nitroglycerin sublingual (NITROQUICK) 0.4 mg SL tablet No No Sig: Dissolve 1 tablet under the tongue every 5 minutes as neede (more content not included)... Normal [facility] CONSULT HNO ID: [id number] Author: Nicole Muniz APRN.HEALTH INFORMATION SPECIALIST Service: Neurology Stroke Author Type: Nurse Practitioner Type: Consults Filed: 12/06/2022 11:02 AM Note Text: Legal Research Analyst Note SERVICE DATE: 12/06/2022 SERVICE TIME: 10:10 AM PCP: Boo Marina DO REASON FOR STROKE EVALUATION: facial droop Subjective HPI: 87 year old WM who didn't answer the door for his home health aide yesterday. His neighbor (Priyanka), who lives across the [place], unlocked the door and he was found with left facial weakness and dysarthria. EMS was called. He was [facility] and then transferred here for further evaluation. He continues with left facial weakness. No hemiparesis reported. CTA from [facility] obtained yesterday reporting 70% stenosis of the left ICA and greater than 70% stenosis of the right ICA. I called his pharmacy ([facility]) who reported that they ship him blister packs of his medications. Lucinda Araujo RN Clinical Fisheries Diver for his Home Care Agency says they load the pills into a medication dispensing machine with alarm reminders. She expressed concerns that the neighbor/friend removes some of the pills from the dispenser and he does not take them. His medication list from the pharmacy includes, to name a few, Eliquis 2.5mg, Atorvastatin 40mg and Zetia 10mg, however it is unclear if he is taking these ad Mr. Coleman cannot tell me. Lucinda lara shared that her staff has expressed concerns about his memory for more than a year. PAST MEDICAL HISTORY Diagnosis Date Anticoagulant long-term use Aortic aneurysm ([facility]) s/p repair AAA Atrial flutter ([facility]) 03/03/2020 CAD (coronary artery disease) pacemaker, hyperlipidemia, hyperlipidemia Chronic combined systolic and diastolic congestive heart failure (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) 12/2015 COPD (chronic obstructive pulmonary disease) (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) 07/02/2021 Hypertriglyceridemia Low HDL (under 40) Neuropathy Palpitations 12/23/2019 Permanent atrial fibrillation ([facility]) 08/10/2015 Presence of cardiac pacemaker 08/10/2015 Presence of drug coated stent in left circumflex coronary artery 08/10/2015 Sick sinus syndrome ([facility]) 08/10/2015 Stage 3b chronic kidney disease ([facility]) 12/21/2015 TB (pulmonary tuberculosis) Thrombocytopenia ([facility]) PAST SURGICAL HISTORY Procedure Laterality Date ABD AORTIC ANEURYSM REPAIR CORONARY STENT EA VESSEL 3-2008 x 2, drug eluting ILIAC SLEEPING BAG FILLER W/WO STENT PACEMAKER DUAL CHAMBER TIER 0 4-2012 PAST SURGICAL HISTORY OF resection lobe of lung,,AAA SOCIAL HISTORY Social History Tobacco Use Smoking status: Every Day Types: Cigarettes Smokeless tobacco: Never Tobacco comments: PK EVERY 3 DAYS Vaping Use Vaping Use: Former Substances: Nicotine Devices: Disposable Substance Use Topics Alcohol use: No Drug use: No FAMILY HISTORY Problem Relation Age of Onset No Ocular Disease Mother other (TB) Mother Stroke Father No Ocular Disease Father Cancer Brother Kidney Disease Sister ALLERGIES Allergen Reactions Dust Other: See Comments Grass Pollen Other: See Comments Mold Spores Other: See Comments MEDICATION Pre-admission sertraline (ZOLOFT) 50 mg tablet, Take 1 tablet by mouth daily with dinner., Disp: 90 tablet, Rfl: 1 furosemide (LASIX) 20 mg tablet, TAKE 1 TABLET BY MOUTH DAILY AFTER BREAKFAST *FOR SWELLING, Disp: 30 tablet, Rfl: 2 lisinopril (ZESTRIL) 5 mg tablet, Take 1 tablet by mouth once daily. For blood pressure, Disp: 90 tablet, Rfl: 1 Cholecalciferol, Vitamin D3, 50 mcg (2,000 unit) cap, Take 1 capsule by mouth once daily., Disp: 30 capsule, Rfl: 3 ezetimibe (ZETIA) 10 mg tablet, Take 1 tablet by mouth once daily., Disp: 90 tablet, Rfl: 3 atorvastatin (LIPITOR) 40 mg tablet, Take 1 tablet by mouth once daily., Disp: 90 tablet, Rfl: 3 metoprolol tartrate, short acting, (LOPRESSOR) 100 mg tablet, Take 1 tablet by mouth twice daily., Disp: 180 tablet, Rfl: 3 potassium chloride (KLOR-CON 10) 10 mEq tablet, Take 1 tablet by mouth once daily., Disp: 30 tablet, Rfl: 11 Fenofibrate (LOFIBRA) 54 mg tablet, Take 1 tablet by mouth once daily., Disp: 90 tablet, Rfl: 3 apixaban (ELIQUIS) 2.5 mg tab(s), Take 1 tablet by mouth twice daily., Disp: 180 tablet, Rfl: 3 erythromycin (ROMYCIN) 5 mg/gram (0.5 %) ophthalmic ointment, In both eye (more content not included)... Normal [facility] Comprehensive metabolic 2000 panelon 12-06-2022 Albumin [Mass/Vol] 3.4 g/dL Normal 3.2-5.0 [facility] Comment on above: Order Comment: Specmarsha vivar Type: BLOOD SPECIMEN Ordering Facility: [facility] Address: [address] [place], [place] [address] Performed By: #### 2 4323-8, LIPNF, , 3 #### [facility] CLIA [id number] [address] [place] [address] [place] ALP [Catalytic activity/Vol] 68 U/L Normal 45-117 [facility] Comment on above: Order Comment: Speci men Type: BLOOD SPECIMEN Ordering Facility: [facility] Address: [address] [place] [address] Performed By: #### 2 4323-8, LIPNF, , 3 #### [facility] CLIA [id number] [address] [place], [place] [address] [place] ALT [Catalytic activity/Vol] 10 U/L Low 13-61 [facility] Comment on above: Order Comment: Speci men Type: BLOOD SPECIMEN Ordering Facility: [facility] Address: [address] [place] [address] Result Comment: Resu lts may be falsely depressed after the administration of Sulfasalazine and/or Sulfapyridine. Performed By: #### 2 4323-8, LIPNF, 33087-5, 6-3 #### [facility] CLIA [id number] [address] [place] [address] [place] Anion gap [Moles/Vol] 7 mmol/L Normal 5-16 [facility] Comment on above: Order Comment: Namitai cb Type: BLOOD SPECIMEN Ordering Facility: [facility] Address: [address] [place] [address] Performed By: #### 2 4323-8, LIPNF, , 6-3 #### [facility] CLIA [id number] [address] [place] [address] [place] AST [Catalytic activity/Vol] 15 U/L Normal 8-34 [facility] Comment on above: Order Comment: Speci cb Type: BLOOD SPECIMEN Ordering Facility: [facility] Address: [address] [place] [address] Result Comment: Resu lts may be falsely depressed after the administration of Sulfasalazine and/or Sulfapyridine. Performed By: #### 2 4323-8, LIPNF, 49329-4, 6-3 #### [facility] CLIA [id number] [address] [place] [address] [place] Bilirubin [Mass/Vol] 0.6 mg/dL Normal 0.2-1.0 [facility] Comment on above: Order Comment: Namitai cb Type: BLOOD SPECIMEN Ordering Facility: [facility] Address: [address] [place] [address] Performed By: #### 2 4323-8, LIPNF, 18438-0, 3015-3 #### [facility] CLIA [id number] [address] [place], [place] [address] [place] Calcium [Mass/Vol] 9.6 mg/dL Normal 8.5-10.5 [facility] Comment on above: Order Comment: Speci men Type: BLOOD SPECIMEN Ordering Facility: [facility] Address: [address] [place] [address] Performed By: #### 2 4323-8, LIPNF, , 3 #### [facility] CLIA [id number] [address] [place], [place] [address] [place] Chloride [Moles/Vol] 110 mmol/L High 98-107 [facility] Comment on above: Order Comment: Speci men Type: BLOOD SPECIMEN Ordering Facility: [facility] Address: [address] [place] [address] Performed By: #### 2 4323-8, LIPNF, , 3 #### [facility] CLIA [id number] [address] [place], [place] [address] [place] CO2 [Moles/Vol] 27 mmol/L Normal 21-32 [facility] Comment on above: Order Comment: Speci men Type: BLOOD SPECIMEN Ordering Facility: [facility] Address: [address] [place] [address] Performed By: #### 2 4323-8, LIPNF, , 3 #### [facility] CLIA [id number] [address] [place], [place] [address] [place] Creatinine [Mass/Vol] 1.30 mg/dL Normal 0.50-1.40 [facility] Comment on above: Order Comment: Speci men Type: BLOOD SPECIMEN Ordering Facility: [facility] Address: [address] [place] [address] Result Comment: Cristina ents receiving either N-Acetylcysteine (NAC) or Metamizole prior to venipuncture, may have falsely depressed results. Performed By: #### 2 4323-8, LIPNF, 88063-9, 3016-3 #### [facility] CLIA [id number] [address] [place] [address] [place] Creatinine and Glomerular filtration rate.predicted panel (S/P/Bld) 53 mL/min/1.73m??? Low >=60 [facility] Comment on above: Order Comment: Fariba vivar Type: BLOOD SPECIMEN Ordering Facility: [facility] Address: [address] [place], [place] [address] Result Comment: Rosalba mated Glomerular Filtration Rate (eGFR) is calculated using the 2020 CKD-EPI creatinine equation. This equation utilizes serum creatinine, sex, and age as parameters. The creatinine assay has traceable calibration to isotope dilution-mass spectrometry. Refer to KDIGO guidelines for clinical interpretation. In patients with unstable renal function, e.g. those with acute kidney injury, the eGFR may not accurately reflect actual GFR. Performed By: #### 2 4323-8, LIPJAME, 86223-6, 3016-3 #### [facility] CLIA [id number] [address] [place] [address] [place] Glucose [Mass/Vol] 94 mg/dL Normal 70-100 [facility] Comment on above: Order Comment: Fariba vivar Type: BLOOD SPECIMEN Ordering Facility: [facility] Address: [address] [place], [place] [address] Result Comment: The [place] Diabetes Association (ADA) provides guidance for cutoff values for fasting glucose and random glucose. The ADA defines fasting as no caloric intake for at least 8 hours. Fasting plasma glucose results between 100 to 125 mg/dL indicate increased risk for diabetes (prediabetes). Fasting plasma glucose results greater than or equal to 126 mg/dL meet the criteria for diagnosis of diabetes. In the absence of unequivocal hyperglycemia, results should be confirmed by repeat testing. In a patient with classic symptoms of hyperglycemia or hyperglycemic crisis, random plasma glucose results greater than or equal to 200 mg/dL meet the criteria for diagnosis of diabetes. Reference: Standards of Medical Care in Diabetes 2016, [place] Diabetes Association. Diabetes Care. 2016.39(Suppl 1). Results may be falsely elevated after the administration of Sulfapyridine. Results may be falsely depressed after the administration of Sulfasalazine. Performed By: #### 2 4323-8, LIPNF, 82954-9, 6-3 #### [facility] CLIA [id number] [address] [place], [place] [address] [place] Potassium [Moles/Vol] 3.5 mmol/L Normal 3.5-5.1 [facility] Comment on above: Order Comment: Speci men Type: BLOOD SPECIMEN Ordering Facility: [facility] Address: [address] [address] Performed By: #### 2 4323-8, LIPNF, 92858-6, 6-3 #### [facility] CLIA [id number] [address] [place], [place] [address] [place] Protein [Mass/Vol] 6.6 g/dL Normal 6.0-8.5 [facility] Comment on above: Order Comment: Speci men Type: BLOOD SPECIMEN Ordering Facility: [facility] Address: [address] [address] Performed By: #### 2 4323-8, LIPNF, , 6-3 #### [facility] CLIA [id number] [address] [place], [place] [address] [place] Sodium [Moles/Vol] 144 mmol/L Normal 136-145 [facility] Comment on above: Order Comment: Speci men Type: BLOOD SPECIMEN Ordering Facility: [facility] Address: [address] [address] Performed By: #### 2 4323-8, LIPNF, 20366-9, 6-3 #### [facility] CLIA [id number] [address] [place], [place] [address] [place] Urea nitrogen [Mass/Vol] 23 mg/dL Normal 7-26 [facility] Comment on above: Order Comment: Speci men Type: BLOOD SPECIMEN Ordering Facility: [facility] Address: [address] [address] Performed By: #### 2 4323-8, LIPNF, 70470-9, 6-3 #### [facility] CLIA [id number] [address] [place], [place] [address] [place] HIGH SENSITIVITY TROPONIN Io n 12-06-2022 Tropinin I.cardiac panel High sensitivity method 10.6 pg/mL Normal 0.0-54.0 [facility] Comment on above: Order Comment: Speci men Type: BLOOD SPECIMEN Ordering Facility: [facility] Address: [address], [place] [address] Result Comment: This assay uses different antibodies than our current assay, and assays, even by the same pipe organ technician may recognize different regions of the antibody and cannot be used interchangeably. Expect results of this assay to run higher than the previous assay. Performed By: #### H KOSTAS #### [facility] CLIA [id number] [address] [place], [place] [id number] [place] HISTORY PHYSICALon HISTORY PHYSICAL HNO ID: [id number] Author: Tracee Escalona APRN.HEALTH INFORMATION SPECIALIST Service: Hospital Medicine Author Type: Nurse Practitioner Type: HANDP Filed: 12/06/2022 3:31 AM Note Text: Attestation signed by Eric Hoffman DO at 12/06/2022 3:37 AM Attending Note I have personally performed a face to face assessment of the patient and have reviewed the KETAN note. I performed a substantive portion of the visit. Presents as a transfer for stroke work-up from outside facility. He was experiencing left-sided facial droop and slurred speech. Work-up did show showed right carotid artery stenosis at 70%. Patient does have an ultrasound from 2019 that showed 60 to 79% stenosis. He will continue stroke work-up and obtain MRI of the brain, echocardiogram, and consult neurology. He will need to follow-up with vascular surgery outpatient if he were to need elective carotid endarterectomy performed for his carotid stenosis. Signature: Eric Hoffman DO Date: 12/06/2022 Time: 3:35 AM HISTORY AND PHYSICAL EXAMINATION SERVICE DATE: 12/06/2022 SERVICE TIME: 3:06 AM PRIMARY CARE PHYSICIAN: Boo Marina DO SUBJECTIVE: CHIEF COMPLAINT: Left-sided facial droop, slurred speech HPI: This is a 87 year old male with a past medical history significant for atrial fibrillation on Eliquis, hypertension, stage III chronic kidney disease, COPD, heart failure, coronary artery disease, and descending AAA who presents as a direct admission from [facility] after he presented there with sided facial droop and slurred speech. Patient lives alone but has neighbors and caregivers he frequently check on him. He did not answer the door yesterday when home health came to visit her for neighbor gained access to apartment via [place] and patient was found to be sitting in a chair with left-sided facial droop and slurred speech. Unknown last time normal but neighbor seen patient afternoon of December 04, 2022 in his normal state of health. The patient currently alert and oriented. He denies any fever, chills, shortness of breath, chest pain, abdominal pain, or dysuria. Symptoms have subsequently resolved. In the ER, initial NIH score noted to be a 3. Telehealth did evaluate the patient and felt the patient needed transfer to higher level of care for further neurological work-up. Twelve-lead EKG showed AV dual paced rhythm with a rate of 61. Lab work significant for BUN 24, creatinine 1.31, GFR 52. Glucose 91. INR 1.2. CT of the brain showed no acute intercranial abnormality. CT angiogram of the head showed mild irregular narrowing at right M1 segment of the MCA and carotid calcification. CT angiogram of the carotids demonstrated hard plaque present at the carotid bulb and origin of the ICA bilaterally. There is also severe narrowing at the origin of the right carotid artery greater than 70%. Patient was given 324 mg aspirin x1 and 75 mg of Plavix. He was subsequently transferred here as a direct admission to the telemetry unit for further evaluation and treatment for MRI imaging of the brain and consultation to neurology. FUNCTIONAL STATUS: Independent PAST MEDICAL HISTORY Diagnosis Date Abnormal cholesterol test Anticoagulant long-term use Aortic aneurysm ([facility]) s/p repair AAA Arteriosclerosis of coronary artery 12/23/2019 pacemaker, hyperlipidemia, hyperlipidemia At risk for stroke Atrial flutter ([facility]) 03/03/2020 CAD (coronary artery disease) pacemaker, hyperlipidemia, hyperlipidemia Chronic combined systolic and diastolic congestive heart failure (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) 12/2015 COPD (chronic obstructive pulmonary disease) (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) 07/02/2021 Hypertriglyceridemia Low HDL (under 40) Neuropathy Palpitations 12/23/2019 Permanent atrial fibrillation ([facility]) 08/10/2015 Presence of cardiac pacemaker 08/10/2015 Presence of drug coated stent in left circumflex coronary artery 08/10/2015 Sick sinus syndrome ([facility]) 08/10/2015 Stage 3b chronic kidney disease ([facility]) 12/21/2015 TB (pulmonary tuberculosis) Thrombocytopenia ([facility]) PAST SURGICAL HISTORY Procedure Late (more content not included)... Normal [facility] HbA1c (Bld)on 12-06-2022 Average glucose Estimated from glycated hemoglobin (Bld) [Mass/Vol] 103 mg/dL Normal [facility] Comment on above: Order Comment: Speci men Type: BLOOD SPECIMEN Ordering Facility: [facility] Address: [place] [address] Result Comment: eAG: (Estimated average glucose) is a calculated value from HgbA1c and is payable representative of the average blood glucose level in the last 2-3 month period. Performed By: #### 5 7021-8, 00953-7 #### [facility] CLIA [id number] [address] [place] [address] [place] HbA1c (Bld) [Mass fraction] 5.2 % Normal 4.3-6.0 [facility] Comment on above: Order Comment: Fariba vivar Type: BLOOD SPECIMEN Ordering Facility: [facility] Address: [address] [address] Result Comment: Amer ican Diabetes Association guidelines indicate that patients with HgbA1c in the range 5.7-6.4% are at increased risk for development of diabetes, and intervention by lifestyle modification may be beneficial. HgbA1c greater or equal to 6.5% is considered diagnostic of diabetes. Performed By: #### 5 7021-8, 52848-6 #### [facility] CLIA [id number] [address] [place] [address] [place] LIPID PANEL, NONFASTINGon Cholesterol [Mass/Vol] 103 mg/dL Normal <200 [facility] Comment on above: Order Comment: Fariba vivar Type: BLOOD SPECIMEN Ordering Facility: [facility] Address: [address] [address] Result Comment: <200 mg/dL, Desirable 200-239 mg/dL, Borderline high >239 mg/dL, High Performed By: #### 2 4323-8, LIPNF, 21556-6, 6-3 #### [facility] CLIA [id number] [address] [place] [address] [place] HDL CHOLESTEROL, NF 34 mg/dL Low >39 [facility] Comment on above: Order Comment: Fariba [facility] Type: BLOOD SPECIMEN Ordering Facility: [facility] Address: [address] [id number] Result Comment: 40-5 9 mg/dL, Acceptable >59 mg/dL, High: Negative risk factor for coronary heart disease <40 mg/dL, Low: Positive risk factor for coronary heart disease Performed By: #### 2 4323-8, LIPNF, , 6-3 #### [facility] CLIA [id number] [address] [place], [place] [address] [place] LDL CHOLESTEROL, NF 41 mg/dL Normal <100 [facility] Comment on above: Order Comment: Fariba vivar Type: BLOOD SPECIMEN Ordering Facility: [facility] Address: [address] [place], [place] [address] Result Comment: <100 mg/dL, Optimal 100-129 mg/dL, Near optimal/above optimal 130-159 mg/dL, Borderline high 160-189 mg/dL, High >189 mg/dL, Very high Secondary prevention optimal LDL Cholesterol levels are recommended to be < 70 mg/dL Performed By: #### 2 4323-8, LIPNF, 52982-2, 6-3 #### [facility] CLIA [id number] [address] [place] [address] LDL/HDL RATIO, NF 1.21 mg/dL Normal <2.54 [facility] Comment on above: Order Comment: Fariba vivar Type: BLOOD SPECIMEN Ordering Facility: [facility] Address: [address] [place], [place] [address] Result Comment: Refe rence: 1. National Cholesterol Education Program ATP III Guideline At-A-Glance Quick Desk Reference: National Heart, Lung, and Blood [place]. National Institutes of Health. 2001: NIH Publication No. 01-3305. 2. An International Atherosclerosis Society position paper: global recommendations for the management of dyslipidemia: executive summary, Atherosclerosis. 2014: 232(2):410-413. Performed By: #### 2 4323-8, LIPNF, 88089-7, 3015-3 #### [facility] CLIA [id number] [address] [place], [place] [address] [place] NON HDL CHOL, NF 69 mg/dL Normal <130 [facility] Comment on above: Order Comment: Fariba vivar Type: BLOOD SPECIMEN Ordering Facility: [facility] Address: [address] [place], [place] [address] Result Comment: <130 mg/dL, Optimal 130-159 mg/dL, Near optimal/above optimal 160-189 mg/dL, Borderline high 190-219 mg/dL, High >219 mg/dL, Very high Secondary prevention optimal non HDL Cholesterol levels are recommended to be <100 mg/dL Performed By: #### 2 4323-8, LIPNF, 96201-4, 6-3 #### [facility] CLIA [id number] [address] [place] [address] [place] T CHOL/HDL RATIO NF 3.03 mg/dL Normal <5.10 [facility] Comment on above: Order Comment: Speci men Type: BLOOD SPECIMEN Ordering Facility: [facility] Address: [address] [place] [address] Performed By: #### 2 4323-8, LIPNF, 44696-8, 3015-3 #### [facility] CLIA [id number] [address] [place] [address] [place] TRIGLYCERIDES, NF 139 mg/dL Normal <150 [facility] Comment on above: Order Comment: Speci men Type: BLOOD SPECIMEN Ordering Facility: [facility] Address: [address] [place] [address] Result Comment: <150 mg/dL, Normal 150-199 mg/dL, Borderline high 200-499 mg/dL, High >499 mg/dL, Very high Performed By: #### 2 4323-8, LIPNF, 82015-6, 3015-3 #### [facility] CLIA [id number] [address] [place] [address] [place] VLDL CHOLESTEROL, NF 28 mg/dL Normal <30 [facility] Comment on above: Order Comment: Speci men Type: BLOOD SPECIMEN Ordering Facility: [facility] Address: [address] [place] [address] Performed By: #### 2 4323-8, LIPNF, 57949-3, 3015-3 #### [facility] CLIA [id number] [address] [place] [address] [place] Magnesium SerPl-mCncon 12-06 Magnesium [Mass/Vol] 1.8 mg/dL Normal 1.6-2.6 [facility] Comment on above: Order Comment: Speci men Type: BLOOD SPECIMEN Ordering Facility: [facility] Address: [place] [address] Performed By: #### 2 4323-8, LIPNF, 54021-1, 3016-3 #### [facility] CLIA [id number] [address] [place], [place] [address] [place] THERAPY NTon 12-06-2022 THERAPY NT HNO ID: [id number] Author: Claritza Roman, OTR/L Service: Occupational Therapy Author Type: Occupational Therapist Type: Therapy (PT/OT/Speech/Resp) Filed: 12/06/2022 1:59 PM Note Text: Occupational Therapy Evaluation SERVICE DATE: 12/06/2022 SERVICE TIME: 1331 to 1356 ROOM: [place] [address] Recommended Discharge Disposition: Home OT Recommended Discharge Disposition Comments: pt presents at supervision level for all ADLs, funcitonal transfers and safety. pt scored a 16/30 on the SLUMs exam indiciating dementia. pt would benefit from further dementia work up. no further skilled OT needs Anticipated Discharge Needs: Supervision at Home Supervision at Home due to: Decreased safety awareness OT 6 Clicks Score: 19 Precautions/Activity Restrictions: Fall Risk Current Hospital Course: stroke work up Reason for Hospital Admission: CVA Relevant Past Medical History: hypertension, hypercholesterolemia, pacemaker in place, coronary artery disease, chronic kidney disease, COPD, descending AAA Response to Therapy Interventions: Good Participation in Activities Cognition/Communication Deficits Responsiveness: Alert Follows Commands: 3-step Commands Cognitive Clinical Tests and Screens: SLUMS SLUMS Level of Education: High school Orientation (week): 1 Orientation (year): 1 Orientation (state): 1 Calculations: 1 Namin Short-Term Memory: 3 Attention/Sequencin Visual-Spatial Skills (clock): 0 Visual-Spatial Skills: 2 Attention/Memory: 4 SLUMS Total Score ( /30): 16 Treatment Interventions: Education, Self Care/Home Management Home Environment Patient Lives With: Self/Alone Assistance Available: PRN, Pan Puller Entry To Home: No Stairs Number Of Stairs To Bed/Bath: 0 Tub/Shower Type: tub/shower combo Laundry: aide completes Equipment Owned: Cane Prior Functional Level: Within Functional Limits Prior Functional Level Comments: pt reports independence with ADLs, [employer] completes IADLs, pt denies device use, denies falls, drives and completes is own grocery shopping Baseline Cognition: Oriented to self, Oriented to time, Oriented to place, Oriented to situation Current and/or Former Occupation: retired Highest Level of Education: High School Occupational Factors Life Roles: Family Member, Parent Identified Strengths: Good Support System Identified Barriers: Difficulty with ADLs/IADLs Subjective: I feel normal CURRENT FUNCTIONAL STATUS: Most recent performance Current Activities of Daily Living Assist Level Additional Information Feeding Independent Grooming Supervision Bathing Upper Body Supervision Bathing Lower Body Supervision Dressing Upper Body Supervision Dressing Lower Body Supervision Toileting Supervision Instrumental Activities of Daily Living Assist Level Additional Information Meal/Beverage Prep Cleaning Laundry Medication Management with Strategies Functional Mobility Assist Level Additional Information Rolling Supine to Sit Independent Sit to Supine Scooting Sit to Stand Supervision Stand to Sit Supervision Bed to Chair Toilet/Commode Shower Functional Mobility Supervision, Additional Information None no LOB, denied dizziness; in home funcitonal distances ~60ft x2 Blank tomlinson indicate activity not attempted Hand Dominance: Right Range of Motion: WFL Strength: WFL Coordination Deficits: In hand manipulation, Finger opposition Finger Opposition Impairment: Right Hand Manipulation Impairment: Right (pt demos gross tremors when attempting to hold pen - limiting his ability to hold objects or write - pt notes this has been going on for many years) Balance: Dynamic Sitting, Static Sitting, Static Standing, Dynamic Standing Static Sitting Balance: Normal Patient able to maintain steady balance without handhold support Dynamic Sitting Balance: Good Patient accepts moderate challenge, able to maintain balance while picking up object off floor Static Standing Balance: Good Patient able to maintain balance without handhold support, limited postural sway Dynamic Standing Balance: Fair Patient accepts minimal challenge, able to maintain balance while turning head/trunk Activity Tolerance: Sitting Activity Sitting Activity: pt sitting on EOB to complete SLUMs assessment unsupported Sitting Activity Tolerance (in minutes): 8 Learning/Educational Needs: Safety, Self Care, Plan of Care, Precautions Goals for Plan of Care: Patient/Caregiver Goals: Participate in meaningful activities Goals: Patient will demonstrate understanding of importance of mobility during hospital stay and resolve all self-care, cognitive and/or coping needs identified. Rehab Potential: Good Patient will be discontinued from Occupational Therapy when no further skilled needs are identified in this setting. PLAN: OT Frequency: Discontinue Therapy Services Reasons Therapy Services Discontinued: Goals met Plan of (more content not included)... Normal [facility] THERAPY NT HNO ID: [id number] Author: Malinda Yoo PT Service: ? Author Type: Physical Therapist Type: Therapy (PT/OT/Speech/Resp) Filed: 12/06/2022 10:49 AM Note Text: Physical Therapy Evaluation SERVICE DATE: 12/06/2022 SERVICE TIME: 1019 to 1035 ROOM: [place] [address] Total Joint Replacement Discharge Readiness: Not Applicable Recommended Discharge Disposition: Home PT Recommended Discharge Disposition Comments: Pt would benefit from HHPT to improve independence and decrease fall risk. Anticipated Discharge Needs: Supervision at Home Supervision at Home due to: Decreased safety awareness Recommended Discharge Equipment: To Be Determined PT 6 Clicks Score: 19 Precautions/Activity Restrictions: Fall Risk, Pacemaker Current Hospital Course: stroke work up Reason for Hospital Admission: CVA Relevant Past Medical History: hypertension, hypercholesterolemia, pacemaker in place, coronary artery disease, chronic kidney disease, COPD, descending AAA Response to Therapy Interventions: Good Participation in Activities Assessment Comments: Pt tolerated eval well. He demonstrates minimal balance impairments, SOB upon exertion, and confusion. Pt educated on use of WW as needed. Pt performed mobility with supervision. Recommend HHPT upon discharge. Continued Skilled Needs Due to: Functional Mobility/Skill Impairments Physical Therapy Problem List: Decreased Activity Tolerance Treatment Interventions: Strengthening, Functional Mobility Training Plan for Next Visit: Gait Training, Exercise Instruction/Handout, Stair Training Home Environment Patient Lives With: Self/Alone Assistance Available: PRN, Pan Puller (Pt reports an aide comes to perform cleaning/laundry) Entry To Home: No Stairs Number Of Stairs To Bed/Bath: 0 Tub/Shower Type: tub/shower combo Laundry: aide completes Equipment Owned: Cane Prior Functional Level: Within Functional Limits Prior Functional Level Comments: Pt reports IND with ADLs; aide completes laundry/cleaning; driving; denies recent falls; ambulation without device CURRENT FUNCTIONAL STATUS: Most recent performance Current Functional Mobility Assist Level Additional Information Rolling Independent Supine to Sit Modified Independent (use of bedrail) Sit to Supine Scooting Sit to Stand Supervision Stand to Sit Supervision Bed to Chair Toilet/Commode Gait Supervision Gait Device: None Gait Distance (feet): 100ft Stairs Supervision (step to pattern) Stairs Device: Rail Number of Stairs: 8 Curb Step Car Transfer Blank tomlinson indicate activity not attempted General Deviations/Observations : Lateral sway increased (SOB upon exertion) Range of Motion: WFL Strength: Strength Limitation Comments Strength Limitation Comments: B LE strength grossly 4+/5 Balance: Static Sitting, Dynamic Sitting, Static Standing, Dynamic Standing Static Sitting Balance: Normal Patient able to maintain steady balance without handhold support Dynamic Sitting Balance: Normal Patient accepts maximal challenge and can shift weight easily within full range in all directions Static Standing Balance: Good Patient able to maintain balance without handhold support, limited postural sway Dynamic Standing Balance: Good Patient accepts moderate challenge, able to maintain balance while picking up object off floor Activity Tolerance: Sitting Activity Sitting Activity: B LE exercises including ankle pumps, marches, and LAQ. JH-HLM: 7: Walk 25 feet or more Learning/Educational Needs: Functional Activities/Mobility, Plan of Care, Rehabilitation Techniques and Procedures Goals for Plan of Care: Patient/Caregiver Goals: Go Home Goals: Patient will demonstrate progress to optimize functional mobility, maximize activity tolerance and endurance to maximize function upon discharge. Able to Perform HEP with: Independent Rolling with: Modified Independent Transfer Supine to/from Sit with: Modified Independent Transfer Sit to/from Stand with: Modified Independent Ambulate with: Modified Independent Distance: 80ft Device: Wheeled Walker Ambulate Up and Down Steps with: Modified Independent Number of Steps: 8 Device: Rail Rehab Potential: Good Patient will be discontinued from Physical Therapy when no further skilled needs are identified in this setting. PLAN: PT Frequency: 6 Times Per Week Plan of Care developed with: Patient TREATMENT INTERVENTIONS: Therapy Diagnosis: Reduced mobility-other Interventions Provided: Evaluation $ Evaluation-Low (96740) Billed Units: 1 unit Training AND Education Provided in: Benefits of In-Hospital Mobility, Discharge Planning, Falls Prevention, Gait Pattern, Reduction of Deviations, Home Safety, Transfers, Role of Physical Therapy The Following Therapeutic Skills Were Used: Cues for Sequencing/Proper Technique for Activity, Cuing Tactile, Cuing Verbal, Cuing Visual Skilled Treatment Time (minutes): 16 P (more content not included)... Normal [facility] TSH SerPl-aCncon 12-06-2022 TSH Qn 1.792 m[IU]/L Normal 0.358-3.740 [facility] Comment on above: Order Comment: Speci men Type: BLOOD SPECIMEN Ordering Facility: [facility] Address: [place] [address] Result Comment: 3rd generation ultra sensitive TSH. Performed By: #### 2 4323-8, LIPNF, 96146-8, 3016-3 #### [facility] CLIA [id number] [address] [place] [address] [place] CBC + DIFFon 12-05-2022 Baso # 0.00 x10EE3/UL Normal 0.00 - 0.10 [facility] Comment on above: Performed By: #### 2 61943 #### [facility],[address] [place] [address] Basophils/100 WBC (Bld) 0.1 % Normal 0.0 - 2.0 [facility] Comment on above: Performed By: #### 2 18634 #### [facility],[address] [place] [address] CBC + DIFF Normal [facility] Comment on above: Result Comment: CBC- COMPLETE BLOOD COUNT Performed By: #### 2 99824 #### [facility],[address] [place] [address] EO # 0.40 x10EE3/UL Normal 0.00 - 0.50 [facility] Comment on above: Performed By: #### 2 24070 #### [facility],[address] [place] [address] Eosinophils/100 WBC (Bld) 5.1 % Normal 0.0 - 7.0 [facility] Comment on above: Performed By: #### 2 08742 #### [facility],[address] [place], [place] [id number] Erythrocyte distribution width (RBC) [Ratio] 14.3 % Normal 12.0 - 15.6 [facility] Comment on above: Performed By: #### 2 00325 #### [facility],[address] [place] [address] Hematocrit (Bld) [Volume fraction] 40.6 % Normal 40.0 - 52.0 [facility] Comment on above: Performed By: #### 2 49609 #### [facility],[address] [place] [address] Hemoglobin (Bld) [Mass/Vol] 13.1 g/dL Normal 13.0 - 17.5 [facility] Comment on above: Performed By: #### 2 37218 #### [facility],[address] [place] [address] Lymph # 1.60 x10EE3/UL Normal 0.80 - 2.80 [facility] Comment on above: Performed By: #### 2 05706 #### [facility],[address] [place] [address] Lymphocytes/100 WBC (Bld) 21.4 % Normal 20.0 - 45.0 [facility] Comment on above: Performed By: #### 2 73550 #### [facility],[address] [place] [address] MANUAL DIFF N/A Normal [facility] Comment on above: Performed By: #### 2 72292 #### [facility] [facility],[address] [place] [address] MCH (RBC) [Entitic mass] 29 pg Normal 27 - 33 [facility] Comment on above: Performed By: #### 2 16858 #### [facility],[address] [place] [address] MCHC 32 X10 3 Normal 32 - 36 [facility] Comment on above: Performed By: #### 2 08338 #### [facility],[address] [place], [place] [id number] MCV (RBC) [Entitic vol] 90 fL Normal 81 - 98 [facility] Comment on above: Performed By: #### 2 19077 #### [facility],[address] [place] [address] [place]oula # 0.90 x10EE3/UL Normal 0.20 - 1.00 [facility] Comment on above: Performed By: #### 2 88212 #### [place] [address] MONOS % 12.7 % High 0.0 - 10.0 [facility] Comment on above: Performed By: #### 2 50060 #### [facility],[address] [place] [address] Morphology Jose (Bld) [Interp] N/A Normal [facility] Comment on above: Result Comment: {CD] Performed By: #### 2 75459 #### [place] [address] Neut # 4.50 x10EE3/UL Normal 1.50 - 7.10 [facility] Comment on above: Performed By: #### 2 41599 #### [place] [address] Neutrophils/100 WBC (Bld) 60.7 % Normal 46.0 - 76.0 [facility] Comment on above: Performed By: #### 2 16719 #### [place] [address] PLATELET 209 x10EE3/UL Normal 150 - 450 [facility] Comment on above: Performed By: #### 2 44840 #### [place] [address] Platelet mean volume (Bld) [Entitic vol] 9.3 fL Normal 6.4 - 10.5 [facility] Comment on above: Result Comment: AUTO MATED DIFFERENTIAL Performed By: #### 2 61558 #### [place] [address] RBC 4.54 x 10EE6/UL Normal 4.50 - 6.00 [facility] Comment on above: Performed By: #### 2 93157 #### [facility],[address] [place] [address] WBC 7.4 x 10EE3/UL Normal 4.5 - 10.8 [facility] Comment on above: Performed By: #### 2 14674 #### [facility],[address] [place] [address] CMP with eGFRon 12-05-2022 AGE 87 years Normal [facility] Comment on above: Performed By: #### 2 82790 #### [facility],[address] [place] [address] Albumin [Mass/Vol] 3.4 g/dL Normal 3.4 - 5.0 [facility] Comment on above: Performed By: #### 2 90182 #### [facility],[address] [place] [address] Albumin/Globulin [Mass ratio] 0.9 {ratio} Normal 0.9 - 1.6 [facility] Comment on above: Performed By: #### 2 10063 #### [facility],[address] [place] [address] ALK PHOS 69 U/L Normal 46 - 116 [facility] Comment on above: Performed By: #### 2 36727 #### [facility],[address] [place] [address] ALT [Catalytic activity/Vol] 8 U/L Low 16 - 63 [facility] Comment on above: Performed By: #### 2 22862 #### [facility],[address] [place] [address] Anion gap [Moles/Vol] 15 mmol/L Normal 10 - 20 [facility] Comment on above: Performed By: #### 2 26461 #### [facility],[address] [place] [address] AST [Catalytic activity/Vol] 21 U/L Normal 15 - 37 [facility] Comment on above: Performed By: #### 2 21748 #### [facility],[address] [place] [address] B/C RATIO 18 ratio Normal 0 - 30 [facility] Comment on above: Performed By: #### 2 69823 #### [facility],[address] [place], [place] [id number] Bilirubin [Mass/Vol] 0.3 mg/dL Normal 0.2 - 1.0 [facility] Comment on above: Performed By: #### 2 73258 #### [facility],[address] [place] [address] Calcium [Mass/Vol] 9.2 mg/dL Normal 8.5 - 10.1 [facility] Comment on above: Performed By: #### 2 60271 #### [facility],[address] [place] [address] Chloride [Moles/Vol] 106 mmol/L Normal 98 - 107 [facility] Comment on above: Performed By: #### 2 31542 #### [facility],[address] [place] [address] CMP with eGFR Normal [facility] Comment on above: Result Comment: COMP REHENSIVE METABOLIC PANEL Performed By: #### 2 08717 #### [facility],[address] [place] [address] CO2 [Moles/Vol] 27.4 mmol/L Normal 21.0 - 32.0 [facility] Comment on above: Performed By: #### 2 04981 #### [facility],[address] [place], [place] [id number] Creatinine [Mass/Vol] 1.31 mg/dL High 0.70 - 1.30 [facility] Comment on above: Performed By: #### 2 15349 #### [facility],[address] [place] [address] eGFR 52 ML/MINUTE Low 60 - 999 [facility] Comment on above: Performed By: #### 2 52201 #### [facility],[address],[place] [address] GFR/1.73 sq M.predicted among non-blacks MDRD (S/P/Bld) [Vol rate/Area] mL/min/{1.73_m2} Normal 60 - 999 [facility] Comment on above: Result Comment: ACCO RDING TO THE NATIONAL KIDNEY DISEASE EDUCATION PROGRAM(NKDE), A NORMAL eGFR IS A VALUE GREATER THAN OR EQUAL TO 60 ML/MIN/1.73 SQ METERS. CHRONIC KIDNEY DISEASE: <60mL/MIN/1.73 SQ METERS KIDNEY FAILURE: <15mL/MIN/1.73 SQ METERS THIS TEST SHOULD ONLY BE USED FOR PATIENTS 18 YEARS OF AGE AND OLDER. Performed By: #### 2 82709 #### [address] [address] Globulin (S) [Mass/Vol] 4.0 g/dL High 1.5 - 3.8 [facility] Comment on above: Performed By: #### 2 16098 #### [address] [address] Glucose [Mass/Vol] 88 mg/dL Normal 74 - 106 [facility] Comment on above: Performed By: #### 2 78873 #### [address] [address] Potassium [Moles/Vol] 4.1 mmol/L Normal 3.5 - 5.1 [facility] Comment on above: Performed By: #### 2 65400 #### [address] [address] Protein [Mass/Vol] 7.4 g/dL Normal 6.4 - 8.2 [facility] Comment on above: Performed By: #### 2 49003 #### [address] [address] Sodium [Moles/Vol] 144 mmol/L Normal 136 - 145 [facility] Comment on above: Performed By: #### 2 06966 #### [address] [address] Urea nitrogen [Mass/Vol] 24 mg/dL High 7 - 18 [facility] Comment on above: Performed By: #### 2 69481 #### [facility],[address] [place] [address] Rissa 12-05-2022 CNPN Telephone (FAMPWS) THANH COLEMAN ([id number]) 1935 M Date Time Provider Department 12/05/22 BOO MARINA FAMPWS During your visit today, we recorded the following information about you: Vivienne Villarreal RN 12/05/2022 2:49 PM Signed Lucinda SPRAGUEmarine photographer with [facility] calls to let provider know that today when home health aide showed up to home patient was disoriented with slurred speech. 911 was contacted and patient was transported to [facility] where he is currently at for evaluation. CELESTINE Kaur Alyson, APRN.MADY 12/05/2022 3:37 PM Signed Noted. Thank you for update. Ekta Mandujano APRN.HEALTH INFORMATION SPECIALIST Allergies As of Date: 12/05/2022 Noted Allergy Reaction DUST 05/29/2017 14 - Other: See Comments GRASS POLLEN 05/29/2017 14 - Other: See Comments MOLD SPORES 05/29/2017 14 - Other: See Comments Date Reviewed: 10/08/2022 Reviewed by: Graciela Manzano LPN - Fully Assessed Reason for Visit: Patient Update [1234] Prescriptions as of 12/05/2022 - sertraline (ZOLOFT) 50 mg tablet Take 1 tablet by mouth daily with dinner. - furosemide (LASIX) 20 mg tablet TAKE 1 TABLET BY MOUTH DAILY AFTER BREAKFAST *FOR SWELLING - lisinopril (ZESTRIL) 5 mg tablet Take 1 tablet by mouth once daily. For blood pressure - Cholecalciferol, Vitamin D3, 50 mcg (2,000 unit) cap Take 1 capsule by mouth once daily. - ezetimibe (ZETIA) 10 mg tablet Take 1 tablet by mouth once daily. - atorvastatin (LIPITOR) 40 mg tablet Take 1 tablet by mouth once daily. - metoprolol tartrate, short acting, (LOPRESSOR) 100 mg tablet Take 1 tablet by mouth twice daily. - potassium chloride (KLOR-CON 10) 10 mEq tablet Take 1 tablet by mouth once daily. - Fenofibrate (LOFIBRA) 54 mg tablet Take 1 tablet by mouth once daily. - apixaban (ELIQUIS) 2.5 mg tab(s) Take 1 tablet by mouth twice daily. - erythromycin (ROMYCIN) 5 mg/gram (0.5 %) ophthalmic ointment In both eyes and on incisions four times a day X 1 wk then twice a day x 1 wk - erythromycin (ROMYCIN) 5 mg/gram (0.5 %) ophthalmic ointment Apply 1/2 inch ribbon per application to incision and in eye four times a day X 1 wk then twice a day x 1 wk - ketoconazole (NIZORAL) 2 % cream Apply to affected area twice daily. To the ear for rash - ketoconazole (NIZORAL) 2 % shampoo Apply to affected area once daily as needed for itching/rash. - triamcinolone (KENALOG) 0.1 % lotion Apply to affected area three times daily. - warfarin (COUMADIN) 4 mg tablet Take 1 tablet by mouth once daily. - nitroglycerin sublingual (NITROQUICK) 0.4 mg SL tablet Dissolve 1 tablet under the tongue every 5 minutes as needed. - albuterol HFA (VENTOLIN HFA) 90 mcg/actuation inhaler Inhale 2 Puffs as instructed every 4 hours as needed for wheezing/shortness of breath. - fluticasone (FLONASE) 50 mcg/actuation nasal spray Use 1 [place] in each nostril daily at bedtime. - aspirin, enteric coated (ASPIRIN, ENTERIC COATED) 81 mg EC tablet Take 81 mg by mouth once daily. - Magnesium 250 mg tab Take 250 mg by mouth once daily. 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] 08/10/2015 S/P insertion of iliac artery stent [Z95.828] 08/10/2015 Presence of cardiac pacemaker [Z95.0] 08/10/2015 Sick sinus syndrome (HCC) [I49.5] 08/10/2015 Permanent atrial fibrillation (HCC) [I48.21] 08/10/2015 Gastrointestinal hemorrhage associated with ang*08/10/2015 Dyslipidemia [E78.5] 08/10/2015 Tobacco use [Z72.0] 08/10/2015 Encounter for monitoring anti-arrhythmic therap*08/10/2015 06/22/2020 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] 08/10/2015 Chronic obstructive pulmonary disease (HCC) [J4*01/29/2016 CKD (chronic kidney disease) [N18.9] 06/19/2016 06/22/2020 Allergic rhinitis [J30.9] 06/19/2016 06/22/2020 Essential hypertension [I10] 06/19/2016 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] 12/21/2015 Arteriosclerosis of coronary artery [I25.10] 12/23/2019 Aortic aneurysm (HCC) [I71.9] 06/22/2020 Abnormal cholesterol test [E78.9] 06/22/2020 COPD (chronic obstructive pulmonary disease) (H* 06/22/2020 H/O right heart catheterization [Z98.890] 06/22/2020 High blood pressure [I10] 07/29/2016 History of heart attack [I25.2] 06/22/2020 Neuropathy (HCC) [G62.9] Thrombocytopenia (HCC) [D69.6] Hypertriglyceridemia [E78.1] Low HDL (under 40) [E78.6] 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]07/29/2016 06/22/2020 History of abdominal aortic aneurysm repair [Z9*07/29/2016 06/22/2020 COPD (chronic obstructive pul (more content not included)... Normal [facility] CT ANGIOGRAPHY HEAD W/CONTRA STon 12-05-2022 CT ANGIOGRAPHY HEAD W/CONTRAST [address] [address] Patient: THANH COLEMAN Phone#: : 1935 Age: 87 Gender: M Pt. Type: ER Account: [id number] Location: 052 Ordering: COLBY MURRAY Exam Date: 12/05/2022/16:46 Family Phys: DR. BOO MARINA D.O. Charge Code: [id number] Physician: [place] Order #: [id number] Dose#: 8.60 PROCEDURE: CT ANGIOGRAPHY HEAD WITH CONTRAST COMPARISON: None. INDICATIONS: Slurred speech. TECHNIQUE: After obtaining the patient's consent, CT images of the head were obtained with non- ionic contrast, and MPR and 3D imaging were created and interpreted to optimize visualization of vascular anatomy. All CT scans at this facility use dose modulation, iterative reconstruction, and/or weight based dosing when appropriate to reduce radiation dose to as low as reasonably achievable. IV CONTRAST: Omnipaque 350,100ml TOTAL DOSE: 8.60 CTDIvol(mGy) FINDINGS: VASCULATURE: Calcification is present involving the paraclinoid carotid arteries. There is mild irregular thinning of the right M1 segment of the MCA. No other focal stenosis or aneurysmal dilatation is identified. VENTRICLES: Normal for age. No enlargement or displacement. CEREBRUM: Normal for age. No excessive atrophy, mass, or hemorrhage, or abnormal enhancement. CEREBELLUM: Normal for age. No excessive atrophy, mass, or hemorrhage, or abnormal enhancement. BRAINSTEM: Normal for age. No excessive atrophy, mass, or hemorrhage, or abnormal enhancement. BASAL CISTERNS: Normal. No subarachnoid hemorrhage or effacement. SKULL: Negative. CONCLUSION: 1. There is mild irregular narrowing of the right M1 segment of the MCA. There is no significant stenosis or aneurysmal dilatation. 2. Carotid calcification is present at the paraclinoid portion. Continued Report - Page 2 of 2 Patient: THANH COLEMAN Phone#: : 1935 Age: 87 Gender: M Pt. Type: ER Account: [id number] Location: 052 Ordering: COLBY MURRAY Exam Date: 12/05/2022/16:46 Family Phys: DR. BOO MARINA D.O. Charge Code: [id number] Physician: [place] Order #: [id number] Dose#: 8.60 Dictated by: Francine Rosas MD on 12/05/2022 at 17:39 Approved by: Francine Rosas MD on 12/05/2022 at 17:46 Normal [facility] CT ANGIOGRAPHY [facility] 2022 CT ANGIOGRAPHY [place] [address] Patient: THANH COLEMAN Phone#: : 1935 Age: 87 Gender: M Pt. Type: ER Account: [id number] Location: 052 Ordering: COLBY MURRAY Exam Date: 12/05/2022/16:46 Family Phys: DR. BOO MARINA D.O. Charge Code: [id number] Physician: [place] Order #: [id number] Dose#: 8.60 PROCEDURE: CT ANGIOGRAPHY CAROTIDS WITH CONTRAST COMPARISON: None. INDICATIONS: Slurred speech. TECHNIQUE: After obtaining the patient's consent, CT images of the neck were obtained with non- ionic intravenous contrast material. MPR/MIPS and 3D images were created to optimize visualization of vascular anatomy. All CT scans at this facility use dose modulation, iterative reconstruction, and/or weight based dosing when appropriate to reduce radiation dose to as low as reasonably achievable. IV CONTRAST: Omnipaque 350,100ml TOTAL DOSE: 8.60 CTDIvol(mGy) FINDINGS: LEFT INTERNAL CAROTID: Hard plaque is present at the carotid bulb and origin the internal carotid artery. There is approximately 70% narrowing of the origin of the internal carotid artery. EXTERNAL CAROTID: No hemodynamically significant stenosis or dissection. COMMON CAROTID: Hard plaque is present at the bulb. VERTEBRAL: No hemodynamically significant stenosis or dissection. RIGHT INTERNAL CAROTID: Hard plaque is present at the origin the internal carotid artery with greater than 70% stenosis. Degenerative changes are present at the temporomandibular joints. EXTERNAL CAROTID: No hemodynamically significant stenosis or dissection. COMMON CAROTID: No hemodynamically significant stenosis or dissection. VERTEBRAL: No hemodynamically significant stenosis or dissection. OTHER: The visualized soft tissues of the neck are also unremarkable. 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 Attenuation is heterogeneous in the right thyroid lobe. Continued Report - Page 2 of 2 Patient: THANH COLEMAN Phone#: : 1935 Age: 87 Gender: M Pt. Type: ER Account: [id number] Location: 052 Ordering: COLBY WAYNE Exam Date: 12/05/2022/16:46 Family Phys: DR. BOO MARINA D.O. Charge Code: [id number] Physician: [place] Order #: [id number] Dose#: 8.60 CONCLUSION: 1. Hard plaque is present at the carotid bulb in origin of the internal carotid arteries bilaterally. 2. There is severe narrowing at the origin of the right carotid artery, greater than 70%. Dictated by: Francine Rosas MD on 12/05/2022 at 17:30 Approved by: Francine Rosas MD on 12/05/2022 at 17:39 Normal [facility] CT BRAIN W/O CONTRASTon 08- CT BRAIN W/O CONTRAST [place] [address] Patient: THANH COLEMAN Phone#: : 1935 Age: 87 Gender: M Pt. Type: ER Account: [id number] Location: 052 Ordering: COLBY WAYNE Exam Date: 12/05/2022/14:51 Family Phys: DR. BOO MARINA D.O. Charge Code: [id number] Physician: [place] Order #: [id number] Dose#: 52.30 mGy PROCEDURE: CT BRAIN WITHOUT CONTRAST COMPARISON: None. INDICATIONS: Slurred speech. TECHNIQUE: CT images were obtained without contrast material. All CT scans at this facility use dose modulation, iterative reconstruction, and/or weight based dosing when appropriate to reduce radiation dose to as low as reasonably achievable. IV CONTRAST: No IV contrast used,ml TOTAL DOSE: 52.30 CTDIvol(mGy) FINDINGS: CEREBRUM: Age-appropriate atrophy is present, without visible acute hemorrhage or lesion. Small vessel disease changes are present. CEREBELLUM: No edema, hemorrhage, mass, acute infarction, or inappropriate atrophy. BRAINSTEM: No edema, hemorrhage, mass, acute infarction, or inappropriate atrophy. CSF SPACES: Ventricles, cisterns, and sulci are appropriate for age. No hydrocephalus, subarachnoid hemorrhage, or mass. SKULL: No mass or other significant visible lesion. SINUSES: Mucosal thickening is present in the maxillary sinuses. ORBITS: Limited views are unremarkable. OTHER: Negative. CONCLUSION: 1. There is no evidence of acute intracranial abnormality. Dictated by: Francine Rosas MD on 12/05/2022 at 15:01 Approved by: Francine Rosas MD on 12/05/2022 at 15:03 Normal [facility] PROTHROMBIN TIME AND INRon 0 12-05-2022 INR Coag (PPP) [Relative time] 1.2 {INR} Normal 0.8 - 1.2 [facility] Comment on above: Result Comment: T HE HEMOSIL THROMBOPLASTIN REAGENT USED IN THE PROTHROMBIN TIME TEST INTERACTS WITH THE DRUG CUBICIN (DAPTOMYCIN) AND WILL RESULT IN FALSELY ELEVATED PT / INR RESULTS INR INTERPRETATION INR INDICATION PREVENTION AND TREATMENT OF THROMBOEMBOLISM ASSOCIATED WITH: 2.0 - 3.0 ATRIAL FIBRILLATION, BIOPROSTHETIC HEART VALVES, PULMONARY EMBOLISM, VENOUS THROMBOSIS, SYSTEMIC EMBOLISM POST MYOCARDIAL INFARCTION 2.5 - 3.5 MECHANICAL HEART VALVES Performed By: #### 2 82414 #### [facility],[address] [place] [address] PROTHROMBIN TIME AND INR Normal [facility] Comment on above: Result Comment: PROT HROMBIN TIME AND INR Performed By: #### 2 90823 #### [facility],[address] [place], [place] [id number] PT-COUMADIN 14.1 sec Normal 9.3 - 14.1 [facility] Comment on above: Performed By: #### 2 12618 #### [facility],[address] [place] [address] Rissa 10-21-2022 [place] Telephone (ZAIDWS) VIRGINIATHANH Yee ([id number]) 1935 M Date Time Provider Department 10/21/22 ZORAIDA HODGE During your visit today, we recorded the following information about you: Zoraida Hodge APRN.MADY 10/21/2022 3:33 PM Signed Please let him know that his kidney function has improved. He does still need to get in to see nephrology as soon as he can as well as continue to push fluids as she instructed in her previous telephone message. Zoraida Hodge APRN.MADY Manzano LPN 10/21/2022 5:18 PM Signed Pt. informed. Allergies As of Date: 10/21/2022 Noted Allergy Reaction DUST 05/29/2017 14 - Other: See Comments GRASS POLLEN 05/29/2017 14 - Other: See Comments MOLD SPORES 05/29/2017 14 - Other: See Comments Date Reviewed: 10/08/2022 Reviewed by: Graciela Manzano LPN - Fully Assessed Reason for Visit: Results [95] Prescriptions as of 10/21/2022 - furosemide (LASIX) 20 mg tablet TAKE 1 TABLET BY MOUTH DAILY AFTER BREAKFAST *FOR SWELLING - lisinopril (ZESTRIL) 5 mg tablet Take 1 tablet by mouth once daily. For blood pressure - Cholecalciferol, Vitamin D3, 50 mcg (2,000 unit) cap Take 1 capsule by mouth once daily. - ezetimibe (ZETIA) 10 mg tablet Take 1 tablet by mouth once daily. - atorvastatin (LIPITOR) 40 mg tablet Take 1 tablet by mouth once daily. - metoprolol tartrate, short acting, (LOPRESSOR) 100 mg tablet Take 1 tablet by mouth twice daily. - potassium chloride (KLOR-CON 10) 10 mEq tablet Take 1 tablet by mouth once daily. - sertraline (ZOLOFT) 50 mg tablet Take 1 tablet by mouth daily with dinner. - Fenofibrate (LOFIBRA) 54 mg tablet Take 1 tablet by mouth once daily. - apixaban (ELIQUIS) 2.5 mg tab(s) Take 1 tablet by mouth twice daily. - erythromycin (ROMYCIN) 5 mg/gram (0.5 %) ophthalmic ointment In both eyes and on incisions four times a day X 1 wk then twice a day x 1 wk - erythromycin (ROMYCIN) 5 mg/gram (0.5 %) ophthalmic ointment Apply 1/2 inch ribbon per application to incision and in eye four times a day X 1 wk then twice a day x 1 wk - ketoconazole (NIZORAL) 2 % cream Apply to affected area twice daily. To the ear for rash - ketoconazole (NIZORAL) 2 % shampoo Apply to affected area once daily as needed for itching/rash. - triamcinolone (KENALOG) 0.1 % lotion Apply to affected area three times daily. - warfarin (COUMADIN) 4 mg tablet Take 1 tablet by mouth once daily. - nitroglycerin sublingual (NITROQUICK) 0.4 mg SL tablet Dissolve 1 tablet under the tongue every 5 minutes as needed. - albuterol HFA (VENTOLIN HFA) 90 mcg/actuation inhaler Inhale 2 Puffs as instructed every 4 hours as needed for wheezing/shortness of breath. - fluticasone (FLONASE) 50 mcg/actuation nasal spray Use 1 [place] in each nostril daily at bedtime. - aspirin, enteric coated (ASPIRIN, ENTERIC COATED) 81 mg EC tablet Take 81 mg by mouth once daily. - Magnesium 250 mg tab Take 250 mg by mouth once daily. 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] 08/10/2015 Sick sinus syndrome (HCC) [I49.5] 08/10/2015 Permanent atrial fibrillation (HCC) [I48.21] 08/10/2015 Gastrointestinal hemorrhage associated with ang*08/10/2015 Dyslipidemia [E78.5] 08/10/2015 Tobacco use [Z72.0] 08/10/2015 Encounter for monitoring anti-arrhythmic therap*08/10/2015 06/22/2020 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] 08/10/2015 Chronic obstructive pulmonary disease (HCC) [J4*01/29/2016 CKD (chronic kidney disease) [N18.9] 06/19/2016 06/22/2020 Allergic rhinitis [J30.9] 06/19/2016 06/22/2020 Essential hypertension [I10] 06/19/2016 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] 12/21/2015 Arteriosclerosis of coronary artery [I25.10] 12/23/2019 Aortic aneurysm (HCC) [I71.9] 06/22/2020 Abnormal cholesterol test [E78.9] 06/22/2020 COPD (chronic obstructive pulmonary disease) (H* 06/22/2020 H/O right heart catheterization [Z98.890] 06/22/2020 High blood pressure [I10] 07/29/2016 History of heart attack [I25.2] 06/22/2020 Neuropathy (HCC) [G62.9] Thrombocytopenia (HCC) [D69.6] Hypertriglyceridemia [E78.1] Low HDL (under 40) [E78.6] 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 Normal [facility] Basic metabolic 2000 panelon 10-18-2022 Anion gap [Moles/Vol] 16 mmol/L 9 - 18 mmol/L [facility] Calcium [Mass/Vol] 9.7 mg/dL 8.5 - 10.2 mg/dL [facility] Chloride [Moles/Vol] 103 mmol/L 97 - 105 mmol/L [facility] [facility] CO2 [Moles/Vol] 24 mmol/L 22 - 30 mmol/L [facility] Creatinine [Mass/Vol] 2.05 mg/dL High 0.73 - 1.22 mg/dL [facility] Estimated Glomerular Filtration Rate 31 mL/min/1.73m Low >=60 mL/min/1.73m [facility] Glucose [Mass/Vol] 90 mg/dL 74 - 99 mg/dL [facility] Potassium [Moles/Vol] 5.1 mmol/L 3.7 - 5.1 mmol/L [facility] Sodium [Moles/Vol] 143 mmol/L 136 - 144 mmol/L [facility] Urea nitrogen [Mass/Vol] 43 mg/dL High 9 - 24 mg/dL [facility] Anion gap [Moles/Vol] 16 mmol/L Normal 9-18 [facility] Comment on above: Order Comment: Speci men Type: BLOOD SPECIMENOrdering Facility: [facility] Address: [address] [address] Performed By: #### 2 885-2, 41366-5 ####[facility] LABCLIA [id number] [place] [address] [place] Calcium [Mass/Vol] 9.7 mg/dL Normal 8.5-10.2 [facility] Comment on above: Order Comment: Speci men Type: BLOOD SPECIMENOrdering Facility: [facility] Address: [address] [address] Performed By: #### 2 885-2, 10922-0 ####[facility] LABCLIA [id number] [facility] [place] [address] [place] Chloride [Moles/Vol] 103 mmol/L Normal 97-105 [facility] Comment on above: Order Comment: Speci men Type: BLOOD SPECIMENOrdering Facility: [facility] Address: [address] [place] [address] Performed By: #### 2 885-2, 23870-8 ####[facility] LABCLIA [id number] [place] [address] [place] CO2 [Moles/Vol] 24 mmol/L Normal 22-30 [facility] Comment on above: Order Comment: Speci men Type: BLOOD SPECIMENOrdering Facility: [facility] Address: [address] [place] [address] Performed By: #### 2 885-2, 33313-3 ####[facility] LABIA [id number] [place] [address] [place] Creatinine [Mass/Vol] 2.05 mg/dL High 0.73-1.22 [facility] Comment on above: Order Comment: Speci men Type: BLOOD SPECIMENOrdering Facility: [facility] Address: [address] [place] [address] Performed By: #### 2 885-2, 00618-5 ####[facility] LABIA [id number] [address] [place] ESTIMATED GLOMERULAR FILTRATION RATE 31 mL/min/1.73m??? Low >=60 [facility] Comment on above: Order Comment: Speci men Type: BLOOD SPECIMENOrdering Facility: [facility] Address: [address] [place] [address] Result Comment: Rosalba mated Glomerular Filtration Rate (eGFR) is calculated using the 2020 CKD-EPI creatinine equation. This equation utilizes serum creatinine, sex, and age as parameters. The creatinine assay has traceable calibration to isotope dilution-mass spectrometry. Refer to KDIGO guidelines for clinical interpretation. In patients with unstable renal function, e.g. those with acute kidney injury, the eGFR may not accurately reflect actual GFR. Performed By: #### 2 885-2, 86229-0 ####[facility] LABCLIA [id number] [place] [address] [place] Glucose [Mass/Vol] 90 mg/dL Normal 74-99 [facility] Comment on above: Order Comment: Speci men Type: BLOOD SPECIMENOrdering Facility: [facility] Address: [address] [place] [address] Result Comment: The [place] Diabetes Association (ADA) provides guidance for cutoff values for fasting glucose and random glucose. The ADA defines fasting as no caloric intake for at least 8 hours. Fasting plasma glucose results between 100 to 125 mg/dL indicate increased risk for diabetes (prediabetes). Fasting plasma glucose results greater than or equal to 126 mg/dL meet the criteria for diagnosis of diabetes. In the absence of unequivocal hyperglycemia, results should be confirmed by repeat testing. In a patient with classic symptoms of hyperglycemia or hyperglycemic crisis, random plasma glucose results greater than or equal to 200 mg/dL meet the criteria for diagnosis of diabetes. Reference: Standards of Medical Care in Diabetes 2016, [place] Diabetes Association. Diabetes Care. 2016.39(Suppl 1). Performed By: #### 2 885-2, 33100-9 ####[facility] LABIA [id number] [place] [address] [place] Potassium [Moles/Vol] 5.1 mmol/L Normal 3.7-5.1 [facility] Comment on above: Order Comment: Speci men Type: BLOOD SPECIMENOrdering Facility: [facility] Address: [address] [place] [address] Performed By: #### 2 885-2, 17442-6 ####[facility] LABIA [id number] [place] [address] [place] Sodium [Moles/Vol] 143 mmol/L Normal 136-144 [facility] Comment on above: Order Comment: Speci men Type: BLOOD SPECIMENOrdering Facility: [facility] Address: [address] [place] [address] Performed By: #### 2 885-2, 60796-8 ####[facility] LABCLIA [id number] [place] [address] [place] Urea nitrogen [Mass/Vol] 43 mg/dL High 9-24 [facility] Comment on above: Order Comment: Speci men Type: BLOOD SPECIMENOrdering Facility: [facility] Address: [address] [place] [address] Performed By: #### 2 885-2, 64541-2 ####[facility] LABCLIA [id number] [place] [address] [place] PROTEIN ELECTROPHORESIS SERU M (P)on 10-18-2022 Albumin [Mass/Vol] 3.91 g/dL Normal 3.43-5.41 [facility] Comment on above: Order Comment: Speci men Type: BLOOD SPECIMENOrdering Facility: [facility] Address: [address] [place] [address] Performed By: #### L [id number] ####[facility] LABIA [id number] [place] [address] [place] Alpha 1 globulin Elph [Mass/Vol] 0.44 g/dL High 0.18-0.43 [facility] Comment on above: Order Comment: Speci men Type: BLOOD SPECIMENOrdering Facility: [facility] Address: [address] [place] [address] Performed By: #### L [id number] ####[facility] LABCLIA [id number] [place] [address] [place] Alpha 2 globulin Elph [Mass/Vol] 0.90 g/dL Normal 0.42-0.98 [facility] Comment on above: Order Comment: Speci men Type: BLOOD SPECIMENOrdering Facility: [facility] Address: [address] [place] [address] Performed By: #### L [id number] ####[facility] LABIA [id number] [address] Beta globulin Elph [Mass/Vol] 1.04 g/dL Normal 0.61-1.17 [facility] Comment on above: Order Comment: Speci men Type: BLOOD SPECIMENOrdering Facility: [facility] Address: [address] [place] [address] Performed By: #### L [id number] ####[facility] LABCLIA [id number] [address] Gamma globulin Elph [Mass/Vol] 0.90 g/dL Normal 0.53-1.51 [facility] Comment on above: Order Comment: Speci men Type: BLOOD SPECIMENOrdering Facility: [facility] Address: [address] [place] [address] Performed By: #### L [id number] ####[facility] LABCLIA [id number] [address] M-PROTEIN LOCATION Normal [facility] Comment on above: Order Comment: Speci men Type: BLOOD SPECIMENOrdering Facility: [facility] Address: [address] [place] [address] Result Comment: Not Applicable. Performed By: #### L [id number] ####[facility] LABCLIA [id number] [address] [place] Protein Fractions [Interp] No definitive M protein is identified on protein electrophoresis. Normal No definitive M protein is identified on protein electrophoresis. [facility] Comment on above: Order Comment: Speci men Type: BLOOD SPECIMENOrdering Facility: [facility] Address: [address] [place] [address] Performed By: #### L [id number] ####[facility] LABCLIA [id number] [address] [place] Protein.monoclonal Elph [Mass/Vol] 0.00 g/dL Normal <=0.00 [facility] Comment on above: Order Comment: Speci men Type: BLOOD SPECIMENOrdering Facility: [facility] Address: [address] [place] [address] Performed By: #### L [id number] ####[facility] LABIA [id number] [address] SPE STAFF REVIEW Reviewed by Heike Jenkins MD [facility] Comment on above: Order Comment: Speci men Type: BLOOD SPECIMENOrdering Facility: [facility] Address: [address] [place] [address] Performed By: #### L [id number] ####[facility] LABIA [id number] [address] Prot SerPl-mCncon 10-18-2022 Protein [Mass/Vol] 7.2 g/dL Normal 6.3-8.0 [facility] Comment on above: Order Comment: Speci men Type: BLOOD SPECIMENOrdering Facility: [facility] Address: [address] [place] [address] Performed By: #### 2 885-2, 75886-2 ####[facility] LABIA [id number] [address] CNPLatanya 10-17-20[facility] COLEMAN ([id number]) 1935 M Date Time Provider Department 10/17/22 BOO MARINA During your visit today, we recorded the following information about you: Boo Marina DO 10/17/2022 9:45 AM Signed Please inform patient that his recent labs are showing high BUN and creatinine. He needs to have these repeated this week and get opinion by Retail Sales Clerk as soon as possible Avoid NSAIDs, needs to be drinking 40-60 oz of water a day as well as limiting sodium and eating renal diet. DO Wanda Lyles LPN 10/17/2022 11:41 AM Signed T/c to pt voicemail not set up yet. Will need to try back. Wanda Lim ANDRESSA Mccollum 10/17/2022 2:02 PM Signed Spoke with pt gave information provided. Explained these are kidney function labs. Importance of getting more water in as suggested by doctor and cuitting as much salt out of diet as possible. He voices understanding and will come for labs tomorrow. Please assist in getting in with nephrology young as Suggests. Allergies As of Date: 10/17/2022 Noted Allergy Reaction DUST 05/29/2017 14 - Other: See Comments GRASS POLLEN 05/29/2017 14 - Other: See Comments MOLD SPORES 05/29/2017 14 - Other: See Comments Date Reviewed: 10/08/2022 Reviewed by: Graciela Manzano LPN - Fully Assessed Reason for Visit: Results [95] Primary Visit Diagnosis:Elevated serum creatinine [R79.89] Order(s):BASIC METABOLIC PNL [SQBMP] Order #: [id number] FUTURE CONSULT TO NEPHROLOGY [9018] Order #: [id number]: 1 FUTURE Prescriptions as of 10/21/2022 - furosemide (LASIX) 20 mg tablet TAKE 1 TABLET BY MOUTH DAILY AFTER BREAKFAST *FOR SWELLING - lisinopril (ZESTRIL) 5 mg tablet Take 1 tablet by mouth once daily. For blood pressure - Cholecalciferol, Vitamin D3, 50 mcg (2,000 unit) cap Take 1 capsule by mouth once daily. - ezetimibe (ZETIA) 10 mg tablet Take 1 tablet by mouth once daily. - atorvastatin (LIPITOR) 40 mg tablet Take 1 tablet by mouth once daily. - metoprolol tartrate, short acting, (LOPRESSOR) 100 mg tablet Take 1 tablet by mouth twice daily. - potassium chloride (KLOR-CON 10) 10 mEq tablet Take 1 tablet by mouth once daily. - sertraline (ZOLOFT) 50 mg tablet Take 1 tablet by mouth daily with dinner. - Fenofibrate (LOFIBRA) 54 mg tablet Take 1 tablet by mouth once daily. - apixaban (ELIQUIS) 2.5 mg tab(s) Take 1 tablet by mouth twice daily. - erythromycin (ROMYCIN) 5 mg/gram (0.5 %) ophthalmic ointment In both eyes and on incisions four times a day X 1 wk then twice a day x 1 wk - erythromycin (ROMYCIN) 5 mg/gram (0.5 %) ophthalmic ointment Apply 1/2 inch ribbon per application to incision and in eye four times a day X 1 wk then twice a day x 1 wk - ketoconazole (NIZORAL) 2 % cream Apply to affected area twice daily. To the ear for rash - ketoconazole (NIZORAL) 2 % shampoo Apply to affected area once daily as needed for itching/rash. - triamcinolone (KENALOG) 0.1 % lotion Apply to affected area three times daily. - warfarin (COUMADIN) 4 mg tablet Take 1 tablet by mouth once daily. - nitroglycerin sublingual (NITROQUICK) 0.4 mg SL tablet Dissolve 1 tablet under the tongue every 5 minutes as needed. - albuterol HFA (VENTOLIN HFA) 90 mcg/actuation inhaler Inhale 2 Puffs as instructed every 4 hours as needed for wheezing/shortness of breath. - fluticasone (FLONASE) 50 mcg/actuation nasal spray Use 1 [place] in each nostril daily at bedtime. - aspirin, enteric coated (ASPIRIN, ENTERIC COATED) 81 mg EC tablet Take 81 mg by mouth once daily. - Magnesium 250 mg tab Take 250 mg by mouth once daily. 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] 08/10/2015 Sick sinus syndrome (HCC) [I49.5] 08/10/2015 Permanent atrial fibrillation (HCC) [I48.21] 08/10/2015 Gastrointestinal hemorrhage associated with ang*08/10/2015 Dyslipidemia [E78.5] 08/10/2015 Tobacco use [Z72.0] 08/10/2015 Encounter for monitoring anti-arrhythmic therap*08/10/2015 06/22/2020 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] 08/10/2015 Chronic obstructive pulmonary disease (HCC) [J4*01/29/2016 CKD (chronic kidney disease) [N18.9] 06/19/2016 06/22/2020 Allergic rhinitis [J30.9] 06/19/2016 06/22/2020 Essential hypertension [I10] 06/19/2016 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] 12/21/2015 Arteriosclerosis of coronary artery [I25.10] 12/23/2019 Aortic aneurysm (HCC) [I71.9 (more content not included)... Normal [facility] CBC W Auto Differential pane l (Bld)on 10-08-2022 Basophils (Bld) [#/Vol] 0.10 10*3/uL Normal <0.11 [facility] Comment on above: Order Comment: Speci men Type: BLOOD SPECIMENOrdering Facility: [facility] Address: [address] [address] Performed By: #### 5 7021-8 ####[facility] LABCLIA [id number] [place] [address] [place] Basophils/100 WBC (Bld) 0.9 % Normal [facility] Comment on above: Order Comment: Speci men Type: BLOOD SPECIMENOrdering Facility: [facility] Address: [address] [address] Performed By: #### 5 7021-8 ####[facility] LABCLIA [id number] [place] [address] [place] Differential cell count method Nom (Bld) Auto Normal [facility] Comment on above: Order Comment: Speci men Type: BLOOD SPECIMENOrdering Facility: [facility] Address: [address] Performed By: #### 5 7021-8 ####[facility] LABCLIA [id number] [place] [address] [place] Eosinophils (Bld) [#/Vol] 0.24 10*3/uL Normal <0.46 [facility] Comment on above: Order Comment: Speci men Type: BLOOD SPECIMENOrdering Facility: [facility] Address: [address] Performed By: #### 5 7021-8 ####[facility] LABCLIA [id number] [address] [place] Eosinophils/100 WBC (Bld) 2.1 % Normal [facility] Comment on above: Order Comment: Speci men Type: BLOOD SPECIMENOrdering Facility: [facility] Address: [address] [place], [place] [address] Performed By: #### 5 7021-8 ####[facility] LABCLIA [id number] [place] [address] [place] Erythrocyte distribution width (RBC) [Ratio] 13.6 % Normal 11.5-15.0 [facility] Comment on above: Order Comment: Speci men Type: BLOOD SPECIMENOrdering Facility: [facility] Address: [address] Performed By: #### 5 7021-8 ####[facility] LABCLIA [id number] [address] [place] Hematocrit (Bld) [Volume fraction] 46.1 % Normal 39.0-51.0 [facility] Comment on above: Order Comment: Speci men Type: BLOOD SPECIMENOrdering Facility: [facility] Address: [address] [place], [place] [address] Performed By: #### 5 7021-8 ####[facility] LABCLIA [id number] [place] [address] [place] Hemoglobin (Bld) [Mass/Vol] 14.4 g/dL Normal 13.0-17.0 [facility] Comment on above: Order Comment: Speci men Type: BLOOD SPECIMENOrdering Facility: [facility] Address: [address] [place] [address] Performed By: #### 5 7021-8 ####[facility] LABCLIA [id number] [place] [address] [place] Immature granulocytes (Bld) [#/Vol] 0.16 10*3/uL High <0.10 [facility] Comment on above: Order Comment: Speci men Type: BLOOD SPECIMENOrdering Facility: [facility] Address: [address] [place] [address] Performed By: #### 5 7021-8 ####[facility] LABIA [id number] [place] [address] [place] Immature granulocytes/100 WBC (Bld) 1.4 % Normal [facility] Comment on above: Order Comment: Speci men Type: BLOOD SPECIMENOrdering Facility: [facility] Address: [address] [place] [address] Performed By: #### 5 7021-8 ####[facility] LABIA [id number] [place] [address] [place] Lymphocytes (Bld) [#/Vol] 2.46 10*3/uL Normal 1.00-4.00 [facility] Comment on above: Order Comment: Speci men Type: BLOOD SPECIMENOrdering Facility: [facility] Address: [address] [place] [address] Performed By: #### 5 7021-8 ####[facility] LABIA [id number] [place] [address] [place] Lymphocytes/100 WBC (Bld) 21.4 % Normal [facility] Comment on above: Order Comment: Speci men Type: BLOOD SPECIMENOrdering Facility: [facility] Address: [address] [place], [place] [address] Performed By: #### 5 7021-8 ####[facility] LABIA [id number] [address] [place] [facility] MCH (RBC) [Entitic mass] 30.3 pg Normal 26.0-34.0 [facility] Comment on above: Order Comment: Speci men Type: BLOOD SPECIMENOrdering Facility: [facility] Address: [address] [place], [place] [address] Performed By: #### 5 7021-8 ####[facility] LABCLIA [id number] [address] [place] MCHC (RBC) [Mass/Vol] 31.2 g/dL Normal 30.5-36.0 [facility] Comment on above: Order Comment: Speci men Type: BLOOD SPECIMENOrdering Facility: [facility] Address: [address] [place], [place] [address] Performed By: #### 5 7021-8 ####[facility] LABIA [id number] [place] [address] [place] MCV (RBC) [Entitic vol] 97.1 fL Normal 80.0-100.0 [facility] Comment on above: Order Comment: Speci men Type: BLOOD SPECIMENOrdering Facility: [facility] Address: [address] [place], [place] [address] Performed By: #### 5 7021-8 ####[facility] LABIA [id number] [place] [address] [place] Monocytes (Bld) [#/Vol] 1.46 10*3/uL High <0.87 [facility] Comment on above: Order Comment: Speci men Type: BLOOD SPECIMENOrdering Facility: [facility] Address: [address] Performed By: #### 5 7021-8 ####[facility] LABCLIA [id number] [place] [address] [place] Monocytes/100 WBC (Bld) 12.7 % Normal [facility] Comment on above: Order Comment: Speci men Type: BLOOD SPECIMENOrdering Facility: [facility] Address: [address] Performed By: #### 5 7021-8 ####[facility] LABCLIA [id number] [place] [address] [place] Neutrophils (Bld) [#/Vol] 7.05 10*3/uL Normal 1.45-7.50 [facility] Comment on above: Order Comment: Speci men Type: BLOOD SPECIMENOrdering Facility: [facility] Address: [address] Performed By: #### 5 7021-8 ####[facility] LABCLIA [id number] [place] [address] [place] Neutrophils/100 WBC (Bld) 61.5 % Normal [facility] Comment on above: Order Comment: Speci men Type: BLOOD SPECIMENOrdering Facility: [facility] Address: [address] Performed By: #### 5 7021-8 ####[facility] LABCLIA [id number] [place] [address] [place] Nucleated RBC (Bld) [#/Vol] 10*3/uL Normal <0.01 [facility] Comment on above: Order Comment: Speci men Type: BLOOD SPECIMENOrdering Facility: [facility] Address: [address] Performed By: #### 5 7021-8 ####[facility] LABCLIA [id number] [place] [address] [place] Nucleated RBC/100 WBC (Bld) [Ratio] 0.0 /100 WBC Normal [facility] Comment on above: Order Comment: Speci men Type: BLOOD SPECIMENOrdering Facility: [facility] Address: [address] [place] [address] Performed By: #### 5 7021-8 ####[facility] LABIA [id number] [place] [address] [place] Platelet mean volume (Bld) [Entitic vol] 11.9 fL Normal 9.0-12.7 [facility] Comment on above: Order Comment: Speci men Type: BLOOD SPECIMENOrdering Facility: [facility] Address: [address] [place] [address] Performed By: #### 5 7021-8 ####[facility] LABCLIA [id number] [place] [address] [place] Platelets (Bld) [#/Vol] 251 10*3/uL Normal 150-400 [facility] Comment on above: Order Comment: Speci men Type: BLOOD SPECIMENOrdering Facility: [facility] Address: [address] [place], [place] [address] Performed By: #### 5 7021-8 ####[facility] LABIA [id number] [place] [address] [place] RBC (Bld) [#/Vol] 4.75 10*6/uL Normal 4.20-6.00 [facility] Comment on above: Order Comment: Speci men Type: BLOOD SPECIMENOrdering Facility: [facility] Address: [address] [place], [place] [address] Performed By: #### 5 7021-8 ####[facility] LABCLIA [id number] [place] [address] [place] WBC (Bld) [#/Vol] 11.47 10*3/uL High 3.70-11.00 [facility] Comment on above: Order Comment: Speci men Type: BLOOD SPECIMENOrdering Facility: [facility] Address: [address] [id number] Performed By: #### 5 7021-8 ####[facility] LABCLIA [id number] [id number] [id number] [facility] CNOVon 10-08-2022 CNOV Office Visit (FAMPWS ) THANH COLMEAN ([id number]) 1935 M Date Time Provider Department 10/08/22 2:20 PM [facility] visit today, we recorded the following information about you: Temperature Pulse Respiration Blood pressure 97.6 degrees 64/minute 24/minute 85/49 Weight 89.8 kg Boo Marina DO 10/08/2022 3:12 PM Addendum STOP the Sennakot for now since you are having loose stools. Only take this medication if you have constipation STOP the lisinopril 20 mg a day START the lisinopril 5 mg a day For blood pressure Boo Marina DO 10/08/2022 5:30 PM Signed CC: Thanhmariah Coleman is a 87 year old male who presents to the office for follow up HPI: Mood, he is currently taking Zoloft 50 mg daily. Stable and well controlled on this regimen. He does admit that he is frustrated with lack of help and contact from his 6 grown children whom don't come to help him or visit him routinely ADLs-- Lives alone in his apartment- does have help from his friend Priyanka but she feels that he is really recently struggling with difficulty in being able to get out of his chair, is developing muscle weakness in his arms and legs since he doesn't do any routine exercise or movement. He admits that she isn't cooking many meals and sometimes not eating regularly at all Also Priyanka is helping him with trying to shower once a week because otherwise he is refusing to do this and not taking good care of his hygiene recently. Has cleaning company clean apartment once per week. Uses [facility] for medicaiton management. No recent falls. Reports minimal support system as he is not in contact with his children much anymore even thought they live nearby. HLD -- Lipitor 40 mg daily, zetia 10 mg daily, and fenofibrate 54 mg daily. Stable. No symptoms. Willing to recheck with blood work. Hx of Afib -- Well controlled, on eliquis routinely. 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 PAST MEDICAL HISTORY Diagnosis Date Abnormal cholesterol test Anticoagulant long-term use Aortic aneurysm ([facility]) s/p repair AAA Arteriosclerosis of coronary artery 12/23/2019 pacemaker, hyperlipidemia, hyperlipidemia At risk for stroke Atrial flutter ([facility]) 03/03/2020 CAD (coronary artery disease) pacemaker, hyperlipidemia, hyperlipidemia Chronic combined systolic and diastolic congestive heart failure (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) 12/2015 COPD (chronic obstructive pulmonary disease) (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) 08/10/2015 Presence of cardiac pacemaker 08/10/2015 Presence of drug coated stent in left circumflex coronary artery 08/10/2015 Sick sinus syndrome (HCC) 08/10/2015 Stage 3b chronic kidney disease ([facility]) 12/21/2015 TB (pulmonary tuberculosis) Thrombocytopenia ([facility]) PAST SURGICAL HISTORY Procedure Laterality Date ABD AORTIC ANEURYSM REPAIR CORONARY STENT EA VESSEL 3-2009 x 2, drug eluting ILIAC SLEEPING BAG FILLER W/WO STENT PACEMAKER DUAL CHAMBER TIER 0 -2012 PAST SURGICAL HISTORY OF resection lobe of lung,,AAA Current Outpatient Medications Medication Sig Cholecalciferol, Vitamin D3, 50 mcg (2,000 unit) cap Take 1 capsule by mouth once daily. ezetimibe (ZETIA) 10 mg tablet Take 1 tablet by mouth once daily. atorvastatin (LIPITOR) 40 mg tablet Take 1 tablet by mouth once daily. metoprolol tartrate, short acting, (LOPRESSOR) 100 mg tablet Take 1 tablet by mouth twice daily. potassium chloride (KLOR-CON 10) 10 mEq tablet Take 1 tablet by mouth once daily. sertraline (ZOLOFT) 50 mg tablet Take 1 tablet by mouth daily with dinner. furosemide (LASIX) 20 mg tablet TAKE 1 TABLET BY MOUTH DAILY AFTER BREAKFAST *FOR SWELLING Fenofibrate (LOFIBRA) 54 mg tablet Take 1 tablet by mouth once daily. apixaban (ELIQUIS) 2.5 mg tab(s) Take 1 tablet by mouth twice daily. ketoconazole (NIZORAL) 2 % cream Apply to affected area twice daily. To the ear for rash ketoconazole (NIZORAL) 2 % shampoo Apply to affected area once daily as needed for itching/rash. triamcinolone (KENALOG) 0.1 % lotion Apply to (more content not included)... Normal [facility] 10-08-2022 [facility] Telephone (FAMPWS) THANH COLEMAN ([id number]) 1935 M Date Time Provider Department 10/08/22 BOO MARINA During your visit today, we recorded the following information about you: Boo Marina DO 10/08/2022 5:32 PM Signed Please call home health agency and let them know that I am concerned that he needs to be in a rehab facility such as at [place] [facility] close to his home. He is struggling with her ADLs and IADLs at home, hygiene, has lost 15 lbs in 6 months and not doing great self care. DO Raya Lyles Ma 10/09/2022 3:00 PM Signed Spoke to [facility] and they agree he is struggling with ADLs. Advised he is not taking medication like he is supposed to. They did order him an alert med box. Nurse advised they do not have high school social science teacher who can step in for patient to go to rehab facility. Called [facility] 9 and spoke to Balbina [phone]. Requested level of care assessment. Balbina is going to look into this an call office back Raya Taylor RN 10/09/2022 4:00 PM Signed Balbina [employer] Senior [employer] Systems Administrator calls and states that they are only able to do a level of care if it is requested by patient. Even if they could it would not get kicked up to state. They have to abide by patient's wishes. Patient would need a guardian appointment. That would require a mental competency test as well as a Statement of Expert Evaluation to help courts to redeem patient unfit and unable to care for himself. APS would then have to contacted and provider would have to provide this information. Balbina states that APS would have a hard time seeing issues. From the outside looking in everything looks good. CELESTINE Nguyen DO 10/10/2022 6:26 AM Signed Noted Boo Marina DO Allergies As of Date: 10/08/2022 Noted Allergy Reaction DUST 05/29/2017 14 - Other: See Comments GRASS POLLEN 05/29/2017 14 - Other: See Comments MOLD SPORES 05/29/2017 14 - Other: See Comments Date Reviewed: 10/08/2022 Reviewed by: Graciela Manzano LPN - Fully Assessed Reason for Visit: Patient Update [1234] Prescriptions as of 10/10/2022 - furosemide (LASIX) 20 mg tablet TAKE 1 TABLET BY MOUTH DAILY AFTER BREAKFAST *FOR SWELLING - lisinopril (ZESTRIL) 5 mg tablet Take 1 tablet by mouth once daily. For blood pressure - Cholecalciferol, Vitamin D3, 50 mcg (2,000 unit) cap Take 1 capsule by mouth once daily. - ezetimibe (ZETIA) 10 mg tablet Take 1 tablet by mouth once daily. - atorvastatin (LIPITOR) 40 mg tablet Take 1 tablet by mouth once daily. - metoprolol tartrate, short acting, (LOPRESSOR) 100 mg tablet Take 1 tablet by mouth twice daily. - potassium chloride (KLOR-CON 10) 10 mEq tablet Take 1 tablet by mouth once daily. - sertraline (ZOLOFT) 50 mg tablet Take 1 tablet by mouth daily with dinner. - Fenofibrate (LOFIBRA) 54 mg tablet Take 1 tablet by mouth once daily. - apixaban (ELIQUIS) 2.5 mg tab(s) Take 1 tablet by mouth twice daily. - erythromycin (ROMYCIN) 5 mg/gram (0.5 %) ophthalmic ointment In both eyes and on incisions four times a day X 1 wk then twice a day x 1 wk - erythromycin (ROMYCIN) 5 mg/gram (0.5 %) ophthalmic ointment Apply 1/2 inch ribbon per application to incision and in eye four times a day X 1 wk then twice a day x 1 wk - ketoconazole (NIZORAL) 2 % cream Apply to affected area twice daily. To the ear for rash - ketoconazole (NIZORAL) 2 % shampoo Apply to affected area once daily as needed for itching/rash. - triamcinolone (KENALOG) 0.1 % lotion Apply to affected area three times daily. - warfarin (COUMADIN) 4 mg tablet Take 1 tablet by mouth once daily. - nitroglycerin sublingual (NITROQUICK) 0.4 mg SL tablet Dissolve 1 tablet under the tongue every 5 minutes as needed. - albuterol HFA (VENTOLIN HFA) 90 mcg/actuation inhaler Inhale 2 Puffs as instructed every 4 hours as needed for wheezing/shortness of breath. - fluticasone (FLONASE) 50 mcg/actuation nasal spray Use 1 [place] in each nostril daily at bedtime. - aspirin, enteric coated (ASPIRIN, ENTERIC COATED) 81 mg EC tablet Take 81 mg by mouth once daily. - Magnesium 250 mg tab Take 250 mg by mouth once daily. 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 Normal [facility] Telephone (PERN) THANH COLEMAN ([id number]) 1935 M Date Time Provider Department 10/08/[address] [facility] [address] [facility] During your visit today, we recorded the following information about you: Jojo Arango 10/08/2022 6:46 PM Signed October 08, 2022 Patient Contact Number: [phone] (home) Reason For Call: Followed up on consult order to [facility] dated 11/29/21 by Zoraida Hodge APRN, CMP STATUS: declined ( already scheduled / no answer / Scheduled, sent to Desk F14 / Declined / No Answer ) Pt had difficulty hearing me and was unable to schedule. Jojo [id number] Allergies As of Date: 10/08/2022 Noted Allergy Reaction DUST 05/29/2017 14 - Other: See Comments GRASS POLLEN 05/29/2017 14 - Other: See Comments MOLD SPORES 05/29/2017 14 - Other: See Comments Date Reviewed: 10/08/2022 Reviewed by: Graciela Manzano LPN - Fully Assessed Reason for Visit: Appointment [186] Cmt: Prescriptions as of 10/08/2022 - lisinopril (ZESTRIL) 5 mg tablet Take 1 tablet by mouth once daily. For blood pressure - Cholecalciferol, Vitamin D3, 50 mcg (2,000 unit) cap Take 1 capsule by mouth once daily. - ezetimibe (ZETIA) 10 mg tablet Take 1 tablet by mouth once daily. - atorvastatin (LIPITOR) 40 mg tablet Take 1 tablet by mouth once daily. - metoprolol tartrate, short acting, (LOPRESSOR) 100 mg tablet Take 1 tablet by mouth twice daily. - potassium chloride (KLOR-CON 10) 10 mEq tablet Take 1 tablet by mouth once daily. - sertraline (ZOLOFT) 50 mg tablet Take 1 tablet by mouth daily with dinner. - furosemide (LASIX) 20 mg tablet TAKE 1 TABLET BY MOUTH DAILY AFTER BREAKFAST *FOR SWELLING - Fenofibrate (LOFIBRA) 54 mg tablet Take 1 tablet by mouth once daily. - apixaban (ELIQUIS) 2.5 mg tab(s) Take 1 tablet by mouth twice daily. - erythromycin (ROMYCIN) 5 mg/gram (0.5 %) ophthalmic ointment In both eyes and on incisions four times a day X 1 wk then twice a day x 1 wk - erythromycin (ROMYCIN) 5 mg/gram (0.5 %) ophthalmic ointment Apply 1/2 inch ribbon per application to incision and in eye four times a day X 1 wk then twice a day x 1 wk - ketoconazole (NIZORAL) 2 % cream Apply to affected area twice daily. To the ear for rash - ketoconazole (NIZORAL) 2 % shampoo Apply to affected area once daily as needed for itching/rash. - triamcinolone (KENALOG) 0.1 % lotion Apply to affected area three times daily. - warfarin (COUMADIN) 4 mg tablet Take 1 tablet by mouth once daily. - nitroglycerin sublingual (NITROQUICK) 0.4 mg SL tablet Dissolve 1 tablet under the tongue every 5 minutes as needed. - albuterol HFA (VENTOLIN HFA) 90 mcg/actuation inhaler Inhale 2 Puffs as instructed every 4 hours as needed for wheezing/shortness of breath. - fluticasone (FLONASE) 50 mcg/actuation nasal spray Use 1 [place] in each nostril daily at bedtime. - aspirin, enteric coated (ASPIRIN, ENTERIC COATED) 81 mg EC tablet Take 81 mg by mouth once daily. - Magnesium 250 mg tab Take 250 mg by mouth once daily. 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] 08/10/2015 S/P insertion of iliac artery stent [Z95.828] 08/10/2015 Presence of cardiac pacemaker [Z95.0] 08/10/2015 Sick sinus syndrome (HCC) [I49.5] 08/10/2015 Permanent atrial fibrillation (HCC) [I48.21] 08/10/2015 Gastrointestinal hemorrhage associated with ang*08/10/2015 Dyslipidemia [E78.5] 08/10/2015 Tobacco use [Z72.0] 08/10/2015 Encounter for monitoring anti-arrhythmic therap*08/10/2015 06/22/2020 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] 08/10/2015 Chronic obstructive pulmonary disease (HCC) [J4*01/29/2016 CKD (chronic kidney disease) [N18.9] 06/19/2016 06/22/2020 Allergic rhinitis [J30.9] 06/19/2016 06/22/2020 Essential hypertension [I10] 06/19/2016 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] 12/21/2015 Arteriosclerosis of coronary artery [I25.10] 12/23/2019 Aortic aneurysm (HCC) [I71.9] 06/22/2020 Abnormal cholesterol test [E78.9] 06/22/2020 COPD (chronic obstructive pulmonary disease) (H* 06/22/2020 H/O right heart catheterization [Z98.890] 06/22/2020 High blood pressure [I10] 07/29/2016 History of heart attack [I25.2] 06/22/2020 Neuropathy (HCC) [G62.9] Thrombocytopenia (HCC) [D69.6] Hypertriglyceridemia [E78.1] Low HDL (under 40) [E78.6] 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]07/29/2016 06/22/2020 History of abdominal aortic aneurysm repair [Z9*07/29/2016 06/22/2020 COPD (chronic obstructive pulmonary disease) wi*07/08/2017 Chronic seasonal al (more content not included)... Normal [facility] Comprehensive metabolic 2000 panelon 10-08-2022 Albumin [Mass/Vol] 4.1 g/dL Normal 3.9-4.9 [facility] Comment on above: Order Comment: Speci men Type: BLOOD SPECIMENOrdering Facility: [facility] Address: [address] [place] [address] Performed By: #### 3 024-7, 3016-3, 23473-0, 2131-12 ####[facility] LABCLIA [id number] [place] [address] [place] ALP [Catalytic activity/Vol] 65 U/L Normal 38-113 [facility] Comment on above: Order Comment: Speci men Type: BLOOD SPECIMENOrdering Facility: [facility] Address: [address] [place] [address] Performed By: #### 3 024-7, 3016-3, 94085-1, 2131-12 ####[facility] LABCLIA [id number] [place] [id number] [place] ALT [Catalytic activity/Vol] 13 U/L Normal 10-54 [facility] Comment on above: Order Comment: Speci men Type: BLOOD SPECIMENOrdering Facility: [facility] Address: [address] [address] Performed By: #### 3 024-7, 3016-3, 29961-2, 9 ####[facility] LABCLIA [id number] [place] [address] [place] Anion gap [Moles/Vol] 14 mmol/L Normal 9-18 [facility] Comment on above: Order Comment: Speci men Type: BLOOD SPECIMENOrdering Facility: [facility] Address: [address] [place] [address] Performed By: #### 3 024-7, 3016-3, 94199-3, 2131-12 ####[facility] LABCLIA [id number] [place] [address] [place] AST [Catalytic activity/Vol] 15 U/L Normal 14-40 [facility] Comment on above: Order Comment: Speci men Type: BLOOD SPECIMENOrdering Facility: [facility] Address: [address] [place] [address] Performed By: #### 3 024-7, 3016-3, 95415-3, 2131-12 ####[facility] LABCLIA [id number] [place] [address] [place] Bilirubin [Mass/Vol] 0.4 mg/dL Normal 0.2-1.3 [facility] Comment on above: Order Comment: Speci men Type: BLOOD SPECIMENOrdering Facility: [facility] Address: [address] [place] [address] Performed By: #### 3 024-7, 3016-3, 70095-3, 2131-12 ####[facility] LABCLIA [id number] [place] [address] [place] Calcium [Mass/Vol] 10.2 mg/dL Normal 8.5-10.2 [facility] Comment on above: Order Comment: Speci men Type: BLOOD SPECIMENOrdering Facility: [facility] Address: [address] [place] [address] Performed By: #### 3 024-7, 3016-3, 81787-0, 9 ####[facility] LABCLIA [id number] [place] [address] [place] Chloride [Moles/Vol] 103 mmol/L Normal 97-105 [facility] Comment on above: Order Comment: Speci men Type: BLOOD SPECIMENOrdering Facility: [facility] Address: [address] [place] [address] Performed By: #### 3 024-7, 3016-3, 76361-9, 2131-12 ####[facility] LABIA [id number] [place] [address] [place] CO2 [Moles/Vol] 23 mmol/L Normal 22-30 [facility] Comment on above: Order Comment: Speci men Type: BLOOD SPECIMENOrdering Facility: [facility] Address: [address] [place] [address] Performed By: #### 3 024-7, 3016-3, 71599-5, 2131-12 ####[facility] LABIA [id number] [place] [address] [place] Creatinine [Mass/Vol] 3.49 mg/dL High 0.73-1.22 [facility] Comment on above: Order Comment: Speci men Type: BLOOD SPECIMENOrdering Facility: [facility] Address: [address] [place] [address] Performed By: #### 3 024-7, 3016-3, 90341-1, 2131-12 ####[facility] LABIA [id number] [place] [address] [place] ESTIMATED GLOMERULAR FILTRATION RATE 16 mL/min/1.73m??? Low >=60 [facility] Comment on above: Order Comment: Speci men Type: BLOOD SPECIMENOrdering Facility: [facility] Address: [address] [place] [address] Result Comment: Rosalba mated Glomerular Filtration Rate (eGFR) is calculated using the 2020 CKD-EPI creatinine equation. This equation utilizes serum creatinine, sex, and age as parameters. The creatinine assay has traceable calibration to isotope dilution-mass spectrometry. Refer to KDIGO guidelines for clinical interpretation. In patients with unstable renal function, e.g. those with acute kidney injury, the eGFR may not accurately reflect actual GFR. Performed By: #### 3 024-7, 6-3, 64329-4, 2131-12 ####[facility] LABCLIA [id number] [address] [address] [place] Glucose [Mass/Vol] 89 mg/dL Normal 74-99 [facility] Comment on above: Order Comment: Fariba vivar Type: BLOOD SPECIMENOrdering Facility: [facility] Address: [address] [place] [address] Result Comment: The [place] Diabetes Association (ADA) provides guidance for cutoff values for fasting glucose and random glucose. The ADA defines fasting as no caloric intake for at least 8 hours. Fasting plasma glucose results between 100 to 125 mg/dL indicate increased risk for diabetes (prediabetes). Fasting plasma glucose results greater than or equal to 126 mg/dL meet the criteria for diagnosis of diabetes. In the absence of unequivocal hyperglycemia, results should be confirmed by repeat testing. In a patient with classic symptoms of hyperglycemia or hyperglycemic crisis, random plasma glucose results greater than or equal to 200 mg/dL meet the criteria for diagnosis of diabetes. Reference: Standards of Medical Care in Diabetes 2016, [place] Diabetes Association. Diabetes Care. 2016.39(Suppl 1). Performed By: #### 3 024-7, 6-3, , 2131-12 ####[facility] LABCLIA [id number] [place] [id number] [place] Potassium [Moles/Vol] 5.2 mmol/L High 3.7-5.1 [facility] Comment on above: Order Comment: Fariba vivar Type: BLOOD SPECIMENOrdering Facility: [facility] Address: [address] [id number] Performed By: #### 3 024-7, 6-3, 41191-9, 2131-12 ####[facility] LABCLIA [id number] [place] [address] [place] Protein [Mass/Vol] 7.4 g/dL Normal 6.3-8.0 [facility] Comment on above: Order Comment: Speci men Type: BLOOD SPECIMENOrdering Facility: [facility] Address: [address] [place] [address] Performed By: #### 3 024-7, 3016-3, 58351-0, 2131-12 ####[facility] LABCLIA [id number] [place] [address] [place] Sodium [Moles/Vol] 140 mmol/L Normal 136-144 [facility] Comment on above: Order Comment: Speci men Type: BLOOD SPECIMENOrdering Facility: [facility] Address: [address] [place] [address] Performed By: #### 3 024-7, 3016-3, , 2131-12 ####[facility] LABCLIA [id number] [place] [address] [place] Urea nitrogen [Mass/Vol] 47 mg/dL High 9-24 [facility] Comment on above: Order Comment: Speci men Type: BLOOD SPECIMENOrdering Facility: [facility] Address: [address] [place] [address] Performed By: #### 3 024-7, 3016-3, 33692-5, 2131-12 ####[facility] LABCLIA [id number] [place] [address] [place] T4 Free SerPl-mCncon 20-2 023 Free T4 [Mass/Vol] 1.3 ng/dL Normal 0.9-1.7 [facility] Comment on above: Order Comment: Speci men Type: BLOOD SPECIMENOrdering Facility: [facility] Address: [address] [place], [place] [address] Performed By: #### 3 024-7, 3016-3, 11222-1, 2131-12 ####[facility] LABCLIA [id number] [address] [place] TSH SerPl-aCncon 10-08-2022 TSH Qn 1.970 m[IU]/L Normal 0.270-4.200 [facility] Comment on above: Order Comment: Speci men Type: BLOOD SPECIMENOrdering Facility: [facility] Address: [address] [place] [address] Performed By: #### 3 024-7, 3016-3, 05618-6, 2131-12 ####[facility] [id number] [address] Vit B12 SerPl-mCncon 023 Cobalamin (Vitamin B12) [Mass/Vol] 647 pg/mL Normal 232-1245 [facility] Comment on above: Order Comment: Speci men Type: BLOOD SPECIMENOrdering Facility: [facility] Address: [address] [place] [address] Performed By: #### 3 024-7, 3016-3, 82374-3, 2131-12 ####[facility] [id number] [address] CNPLatanya 09-20-2022 CNPN Telephone (FAMWS) THANH COLEMAN ([id number]) 1935 M Date Time Provider Department [facility]/20[facility]22 [facility] During your visit today, we recorded the following information about you: Vivienne Villarreal RN 09/20/2022 3:15 PM Signed [facility] calls to report patient was admitted to their services today for HH d/t previous HH company closing. They will be faxing over orders with a request for PT eval and TX for ambulation d/t weakness and leg pain. No verbal call back needed if provider agrees forms can be faxed back to number on request. Vivienne Villarreal RN Allergies As of Date: 09/20/2022 Noted Allergy Reaction DUST 05/29/2017 14 - Other: See Comments GRASS POLLEN 05/29/2017 14 - Other: See Comments MOLD SPORES 05/29/2017 14 - Other: See Comments Date Reviewed: 08/06/2022 Reviewed by: Juan Carlos Cuadra OD - Fully Assessed Reason for Visit: Patient Update [1234] Prescriptions as of 09/27/2022 - Cholecalciferol, Vitamin D3, 50 mcg (2,000 unit) cap Take 1 capsule by mouth once daily. - lisinopril (ZESTRIL) 20 mg tablet Take 1 tablet by mouth once daily. - ezetimibe (ZETIA) 10 mg tablet Take 1 tablet by mouth once daily. - atorvastatin (LIPITOR) 40 mg tablet Take 1 tablet by mouth once daily. - metoprolol tartrate, short acting, (LOPRESSOR) 100 mg tablet Take 1 tablet by mouth twice daily. - potassium chloride (KLOR-CON 10) 10 mEq tablet Take 1 tablet by mouth once daily. - sertraline (ZOLOFT) 50 mg tablet Take 1 tablet by mouth daily with dinner. - furosemide (LASIX) 20 mg tablet TAKE 1 TABLET BY MOUTH DAILY AFTER BREAKFAST *FOR SWELLING - Fenofibrate (LOFIBRA) 54 mg tablet Take 1 tablet by mouth once daily. - apixaban (ELIQUIS) 2.5 mg tab(s) Take 1 tablet by mouth twice daily. - erythromycin (ROMYCIN) 5 mg/gram (0.5 %) ophthalmic ointment In both eyes and on incisions four times a day X 1 wk then twice a day x 1 wk - erythromycin (ROMYCIN) 5 mg/gram (0.5 %) ophthalmic ointment Apply 1/2 inch ribbon per application to incision and in eye four times a day X 1 wk then twice a day x 1 wk - ketoconazole (NIZORAL) 2 % cream Apply to affected area twice daily. To the ear for rash - ketoconazole (NIZORAL) 2 % shampoo Apply to affected area once daily as needed for itching/rash. - triamcinolone (KENALOG) 0.1 % lotion Apply to affected area three times daily. - ejlbdots-ryjyqxlrb-zmvg icidin (NEOMYCIN) 1.75 mg-10,000 unit-0.025mg/mL drop Apply 3 drops to each ear twice daily. - pnvhksio-lextwrgtu-llmp ocortisone (CORTISPORIN) 3.5-10,000-1 mg/mL-unit/mL-% otic suspension Use 4 Drops in the ears four times daily. - warfarin (COUMADIN) 4 mg tablet Take 1 tablet by mouth once daily. - nitroglycerin sublingual (NITROQUICK) 0.4 mg SL tablet Dissolve 1 tablet under the tongue every 5 minutes as needed. - albuterol HFA (VENTOLIN HFA) 90 mcg/actuation inhaler Inhale 2 Puffs as instructed every 4 hours as needed for wheezing/shortness of breath. - fluticasone (FLONASE) 50 mcg/actuation nasal spray Use 1 [place] in each nostril daily at bedtime. - aspirin, enteric coated (ASPIRIN, ENTERIC COATED) 81 mg EC tablet Take 81 mg by mouth once daily. - senna (SENOKOT) 8.6 mg tab Take 8.6 mg by mouth once daily as needed. - Magnesium 250 mg tab Take 250 mg by mouth once daily. 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] 08/10/2015 S/P insertion of iliac artery stent [Z95.828] 08/10/2015 Presence of cardiac pacemaker [Z95.0] 08/10/2015 Sick sinus syndrome (HCC) [I49.5] 08/10/2015 Permanent atrial fibrillation (HCC) [I48.21] 08/10/2015 Gastrointestinal hemorrhage associated with ang*08/10/2015 Dyslipidemia [E78.5] 08/10/2015 Tobacco use [Z72.0] 08/10/2015 Encounter for monitoring anti-arrhythmic therap*08/10/2015 06/22/2020 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] 08/10/2015 Chronic obstructive pulmonary disease (HCC) [J4*01/29/2016 CKD (chronic kidney disease) [N18.9] 06/19/2016 06/22/2020 Allergic rhinitis [J30.9] 06/19/2016 06/22/2020 Essential hypertension [I10] 06/19/2016 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 Normal [facility] EMERGENCY REPORTon 3 EMERGENCY REPORT [facility] EMERGENCY ROOM REPORT NAME ACCOUNT SEX AGE ADMIT DISCHARGE PT MED. RECORD# NUMBER DATE DATE TYPE THANH COLEMAN [id number] M 86 08/29/22 3 [id number] ROOM: ER DATE OF : 1935 DICTATING PHYSICIAN: Satnam Madrid CHIEF COMPLAINT: Abdominal pain weak lower extremities and back pain. HISTORY OF PRESENT ILLNESS: Patient is a somewhat poor historian. His main complaint seems to be abdominal pain that has developed over the last couple of days. He basically states that his symptoms had started a couple of weeks ago. He was seen in the Emergency Department about a week ago for some lower leg pain. Had an x-ray that was negative. He states that he has had persistent pain in his legs but they seem to have become painful. He has been able to get up and ambulate until today when today he could not walk because his 'legs would not work'. He states that he has not really been able urinate since yesterday and is complaining of abdominal pain. He states that it feels like his bladder is full. Additionally, he is complaining of some pain to his upper back radiating just to the right of the midline area of the scapula. Did not have any fall or injuries. He said no fever or chills. No chest pain of shortness of breath. PAST MEDICAL HISTORY: Significant for multiple medical problems. Has known coronary artery disease with a previous AR. Known CHF, hypertension. 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 Does have a history of aortic aneurysm with some sort of patch to that. Has had previous pacemaker placed. MEDICATIONS: A number of medications including Eliquis. SOCIAL HISTORY: He lives at home although he has a neighbor that lives right beside him that is a partner that stays with him a lot and is with him much of the time. He smokes a half a pack a day. He does not drink alcohol. REVIEW OF SYSTEMS: He has not had fever or chills. No headache or dizziness. No diarrhea or bleeding disorders. No swelling to his extremities. States he has not had any recent illnesses or immunizations. Patient was admitted to the hospital about 3 weeks ago with bilateral knee pain. He had a significantly elevated sed rate, the concern was possible polymyalgia rheumatica or rheumatoid arthritis. Was referred to Rheumatology. Unsure if whether he has seen them yet. PHYSICAL EXAMINATION: Elderly 86-year-old male who is awake and alert. He appears quite uncomfortable but is able to respond appropriately to questions and commands. His skin is pink, warm and dry. HEENT exam: No acute abnormalities . His neck is supple without adenopathy. Moves it well without pain. No masses or Page 1 of 2 THANH COLEMAN Emergency Room Report THANH COLEMAN : 1935 bruits. He has some tenderness with palpation to the right scapular area but no midline back pain focal to any areas. No masses noted. His lungs are clear without crackles or wheezes. Cardiac: Regular rhythm without ectopy or murmurs. Abdomen is somewhat distended, particularly to the lower abdomen and is somewhat tender but no masses or rebound. He moves upper extremities well. He really has limited movement of his lower legs; is unable to extend them. He does seem to have good sensation and can plantar flex somewhat but is unable to dorsiflex. I cannot really elicit any significant deep tendon reflexes to his ankles or knees bilaterally. EMERGENCY DEPARTMENT COURSE AND TREATMENT: IV was placed. We did a bladder scan which showed greater than 800 mL. Garcia catheter was placed and he felt very much improved after his bladder was emptied with greater than 800 mL of urine. CBC showed a white count of 9,100. Unremarkable differential. Normal H&H. His sed rate was 53. PT and PT INR were unremarkable . Sodium 128. Potassium 3.8. BUN and creatinine 25 and 1.37. These are a bit lower than what they were a couple of weeks ago. CPK is 30. CRP is 4.3. Urinalysis generally unremarkable. Chest and abdominal CT showed extensive aortic calcifications. Thrombus present but unchanged from any previous exam. No evidence of any acute hemorrhage or acute dissection. Cholelithiasis was noted. IMPRESSION: Patient presents with leg weakness with diminished deep tendon reflexes and urinary retention. The cause of this is unclear, but I would think Guillain [place] would certainly need to be in the differential. Feel that admission where special availability would be indicated. He has been in [place] previously. I talked to Dr. Metcalf, the hospitalist there, who did accept the patient in transfer. DIAGNOSIS: 1. Bilateral leg weakness . 2. Urinary retention. Dictated By: Satnam Madrid MD 08/29/22 19:32 JOB #: [id number] Transcribed By: israel 08/29/22 20:59 Electronically signed by: CHEMO Madrid M.D. 09/12/22 07:31 Page 2 of 2 THANH COLEMAN Emergency Room Report Normal [facility] 09-10-2022 [facility] Telephone (ZAIDWS) THANH COLEMAN ([id number]) 1935 M Date Time Provider Department 09/10/22 [facility] During your visit today, we recorded the following information about you: Pat Miranda [facility] 09/10/2022 11:26 AM Signed Patient friend Kavitha calling asking for order for Transfer bench to use sits outside tub and he can slide over to get in the tub to shower, his legs are very painful. Asking to have [facility] Is [phone] and also copy of last office notes to be faxed. Pending order Please advise Boo Marina DO 09/11/2022 8:28 PM Signed Order printed, please fax and notify Boo Marina DO Wanda Mccollum [employer]ISTER[employer] MIDWIFE 09/13/2022 10:34 AM Signed Order and notes faxed as requested. Allergies As of Date: 09/10/2022 Noted Allergy Reaction DUST 05/29/2017 14 - Other: See Comments GRASS POLLEN 05/29/2017 14 - Other: See Comments MOLD SPORES 05/29/2017 14 - Other: See Comments Date Reviewed: 08/06/2022 Reviewed by: Juan Carlos Cuadra OD - Fully Assessed Reason for Visit: Orders [681] Primary Visit Diagnosis:Neuropathy [G62.9] Other Visit Diagnosis:PVD (peripheral vascular disease) ([facility]) [I73.9] Order(s):TRANS W/WO COMM OPEN [[id number]] Order #: [id number] Prescriptions as of 09/13/2022 - Cholecalciferol, Vitamin D3, 50 mcg (2,000 unit) cap Take 1 capsule by mouth once daily. - lisinopril (ZESTRIL) 20 mg tablet Take 1 tablet by mouth once daily. - ezetimibe (ZETIA) 10 mg tablet Take 1 tablet by mouth once daily. - atorvastatin (LIPITOR) 40 mg tablet Take 1 tablet by mouth once daily. - metoprolol tartrate, short acting, (LOPRESSOR) 100 mg tablet Take 1 tablet by mouth twice daily. - potassium chloride (KLOR-CON 10) 10 mEq tablet Take 1 tablet by mouth once daily. - sertraline (ZOLOFT) 50 mg tablet Take 1 tablet by mouth daily with dinner. - furosemide (LASIX) 20 mg tablet TAKE 1 TABLET BY MOUTH DAILY AFTER BREAKFAST *FOR SWELLING - Fenofibrate (LOFIBRA) 54 mg tablet Take 1 tablet by mouth once daily. - apixaban (ELIQUIS) 2.5 mg tab(s) Take 1 tablet by mouth twice daily. - erythromycin (ROMYCIN) 5 mg/gram (0.5 %) ophthalmic ointment In both eyes and on incisions four times a day X 1 wk then twice a day x 1 wk - erythromycin (ROMYCIN) 5 mg/gram (0.5 %) ophthalmic ointment Apply 1/2 inch ribbon per application to incision and in eye four times a day X 1 wk then twice a day x 1 wk - ketoconazole (NIZORAL) 2 % cream Apply to affected area twice daily. To the ear for rash - ketoconazole (NIZORAL) 2 % shampoo Apply to affected area once daily as needed for itching/rash. - triamcinolone (KENALOG) 0.1 % lotion Apply to affected area three times daily. - fpjhazlj-ihflweiiz-qydg icidin (NEOMYCIN) 1.75 mg-10,000 unit-0.025mg/mL drop Apply 3 drops to each ear twice daily. - slksvwef-oqkqhnsns-hsjd ocortisone (CORTISPORIN) 3.5-10,000-1 mg/mL-unit/mL-% otic suspension Use 4 Drops in the ears four times daily. - warfarin (COUMADIN) 4 mg tablet Take 1 tablet by mouth once daily. - nitroglycerin sublingual (NITROQUICK) 0.4 mg SL tablet Dissolve 1 tablet under the tongue every 5 minutes as needed. - albuterol HFA (VENTOLIN HFA) 90 mcg/actuation inhaler Inhale 2 Puffs as instructed every 4 hours as needed for wheezing/shortness of breath. - fluticasone (FLONASE) 50 mcg/actuation nasal spray Use 1 [place] in each nostril daily at bedtime. - aspirin, enteric coated (ASPIRIN, ENTERIC COATED) 81 mg EC tablet Take 81 mg by mouth once daily. - senna (SENOKOT) 8.6 mg tab Take 8.6 mg by mouth once daily as needed. - Magnesium 250 mg tab Take 250 mg by mouth once daily. 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] 08/10/2015 S/P insertion of iliac artery stent [Z95.828] 08/10/2015 Presence of cardiac pacemaker [Z95.0] 08/10/2015 Sick sinus syndrome (HCC) [I49.5] 08/10/2015 Permanent atrial fibrillation (HCC) [I48.21] 08/10/2015 Gastrointestinal hemorrhage associated with ang*08/10/2015 Dyslipidemia [E78.5] 08/10/2015 Tobacco use [Z72.0] 08/10/2015 Encounter for monitoring anti-arrhythmic therap*08/10/2015 06/22/2020 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] 08/10/2015 Chronic obstructive pulmonary disease (HCC) [J4*01/29/2016 CKD (chronic kidney disease) [N18.9] 06/19/2016 06/22/2020 Allergic rhinitis [J30.9] 06/19/2016 06/22/2020 Essential hypertension [I10] 06/19/2016 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 Normal [facility] .Auto Diffon 09-04-2022 Basophil, Absolute 0.0 10 3/mcL Normal 0.0-0.3 [facility] [place] Comment on above: Performed By: #### G , BMP #### [address] [address] Basophils/100 WBC (Bld) 0.1 % Normal 0.0-2.5 [facility] ([place]) Comment on above: Performed By: #### G FR, BMP #### [facility] [address] [place] [address] Eosinophil, Absolute 0.1 10 3/mcL Normal 0.0-0.7 [facility] ([place] Comment on above: Performed By: #### G , BMP #### [address] [address] Eosinophils/100 WBC (Bld) 1.1 % Normal 0.0-6.0 [facility] ([place] Comment on above: Performed By: #### [place] FR, BMP #### [address] [address] Lymphocyte, Absolute 1.8 10 3/mcL Normal 0.9-4.3 [facility] ([place] Comment on above: Performed By: #### [place] KHAN, BMP #### [address] [address] Lymphocytes/100 WBC (Bld) 15.1 % Low 20.0-40.0 [facility] ([place] Comment on above: Performed By: #### [place] KHAN, BMP #### [address] [address] Monocyte, Absolute 1.1 10 3/mcL Normal 0.1-1.4 [facility] [place] Comment on above: Performed By: #### [place] KHAN, BMP #### [address] [address] Monocytes/100 WBC (Bld) 9.5 % Normal 2.0-13.0 [facility] ([place] Comment on above: Performed By: #### [place] KHAN, BMP #### [address] [address] Neutrophils/100 WBC (Bld) 74.2 % Normal 50.0-75.0 [facility] ([place] Comment on above: Performed By: #### [place] KHAN, BMP #### [address] [address] .GFRon 09-04-2022 GFR Non- 54 ml/min/1.73sqm Normal [facility] ([place] Comment on above: Result Comment: GFR Population mean for , Non- Americans Ages 20-29 = 116 mL/min/1.73 sq.m. Ages 30-39 = 107 mL/min/1.73 sq.m. Ages 40-49 = 99 mL/min/1.73 sq.m. Ages 50-59 = 93 mL/min/1.73 sq.m. Ages 60-69 = 85 mL/min/1.73 sq.m. Ages 70+ = 75 mL/min/1.73 sq.m. Chronic Kidney Disease: Less than 60 mL/min/1.73 square meters End Stage Renal Disease: Less than 15 mL/min/1.73 square meters Performed By: #### P RO #### [address] [address] GFR >60 Normal [facility] [place] Comment on above: Result Comment: GFR Population mean for , Non- Americans Ages 20-29 = 116 mL/min/1.73 sq.m. Ages 30-39 = 107 mL/min/1.73 sq.m. Ages 40-49 = 99 mL/min/1.73 sq.m. Ages 50-59 = 93 mL/min/1.73 sq.m. Ages 60-69 = 85 mL/min/1.73 sq.m. Ages 70+ = 75 mL/min/1.73 sq.m. Chronic Kidney Disease: Less than 60 mL/min/1.73 square meters End Stage Renal Disease: Less than 15 mL/min/1.73 square meters Performed By: #### P RO #### [address] [address] .NEUABSon 09-04-2022 Neutrophil, Absolute 8.7 10 3/mcL High 2.3-8.1 [facility] ([place] Comment on above: Performed By: #### P RO #### [address] [address] CBCon 09-04-2022 Erythrocyte distribution width (RBC) [Ratio] 14.6 % Normal 11.5-15.5 [facility] ([place] Comment on above: Performed By: #### CHLOE SINGH #### [address] [address] Hematocrit (Bld) [Volume fraction] 42.0 % Normal 40.0-52.0 [facility] ([place] Comment on above: Performed By: #### G FR BMP #### [address] [address] Hgb 13.1 G/dL Normal 13.0-17.5 [facility] ([place] Comment on above: Performed By: #### [place] KHAN, BMP #### [place] [id number] MCH (RBC) [Entitic mass] 30.9 pg Normal 27.0-33.0 [facility] ([place] Comment on above: Performed By: #### Savannah FR, BMP #### [place] [address] MCHC 31.2 G/dL Low 32.0-36.0 [facility] ([place] Comment on above: Performed By: #### Savannah KHAN, BMP #### [place] [address] MCV (RBC) [Entitic vol] 99.0 fL Normal 81.0-100.0 [facility] ([place] Comment on above: Performed By: #### [place] FR, BMP #### [place] [address] Platelet 188 10 3/mcL Normal 150-450 [facility] ([place] Comment on above: Performed By: #### [place] FR, BMP #### [place] [address] Platelet mean volume (Bld) [Entitic vol] 9.0 fL Normal 6.4-10.5 [facility] ([place] Comment on above: Performed By: #### [place] FR, BMP #### [place] [address] RBC 4.24 10 6/mcL Low 4.50-6.00 [facility] ([place] Comment on above: Performed By: #### G FR, BMP #### [place] [address] WBC 11.8 10 3/mcL High 4.5-10.8 [facility] ([place] Comment on above: Performed By: #### [place] FR, BMP #### [place] [address] CMPon 09-04-2022 Albumin Level 3.1 G/dL Low 3.2-4.8 [facility] ([place] Comment on above: Performed By: #### P RO #### [address] [address] Albumin/Globulin [Mass ratio] 1.0 {ratio} Normal 0.9-1.6 [facility] ([place] Comment on above: Performed By: #### P RO #### [address] [address] ALP [Catalytic activity/Vol] 52 U/L Normal 38-126 [facility] ([place] Comment on above: Performed By: #### P RO #### [address] [address] ALT [Catalytic activity/Vol] 28 U/L Normal 12-55 [facility] ([place] Comment on above: Performed By: #### P RO #### [place] [id number] AST [Catalytic activity/Vol] 20 U/L Normal 8-34 [facility] ([place] Comment on above: Performed By: #### P RO #### [address] [address] Bili Total 0.30 mg/dL Normal 0.20-1.20 [facility] ([place] Comment on above: Result Comment: Use of this assay is not recommended for patients undergoing treatment with eltrombopag due to the potential for falsely elevated results. Performed By: #### P RO #### [place] [id number] BUN/Creatinine Ratio 32.3 ratio High 10.0-22.0 [facility] ([place] Comment on above: Performed By: #### P RO #### [address] [address] Calcium [Mass/Vol] 9.0 mg/dL Normal 8.7-10.4 [facility] ([place]) Comment on above: Performed By: #### P RO #### [address] [address] Chloride [Moles/Vol] 109 mmol/L Normal 98-110 [facility] ([place] Comment on above: Performed By: #### P RO #### [address] [address] CO2 [Moles/Vol] 30 mmol/L Normal 22-32 [facility] ([place] Comment on above: Performed By: #### P RO #### [address] [address] Creatinine [Mass/Vol] 1.27 mg/dL Normal 0.60-1.40 [facility] ([place] Comment on above: Performed By: #### P RO #### [address] [address] Electrolyte Balance 5.0 mEq/L Normal 4.0-15.0 [facility] [place] Comment on above: Performed By: #### P RO #### [address] [address] Globulin 3.1 G/dL Normal 1.5-3.8 [facility] ([place] Comment on above: Performed By: #### P RO #### [address] [address] Glucose [Mass/Vol] 89 mg/dL Normal 82-115 [facility] ([place]) Comment on above: Performed By: #### P RO #### [address] [address] Potassium [Moles/Vol] 4.5 mmol/L Normal 3.5-5.0 [facility] ([place] Comment on above: Performed By: #### P RO #### [address] [address] Sodium [Moles/Vol] 144 mmol/L Normal 136-145 [facility] ([place] Comment on above: Performed By: #### P RO #### [address] [address] Total Protein 6.2 G/dL Normal 5.7-8.2 [facility] ([place] Comment on above: Result Comment: No te - New Reference Range in effect 19 Performed By: #### P RO #### [address] [address] Urea nitrogen [Mass/Vol] 41.0 mg/dL High 8.0-22.0 [facility] ([place] Comment on above: Performed By: #### P RO #### [address] [address] MGon 09-04-2022 Magnesium [Mass/Vol] 1.9 mg/dL Normal 1.6-2.4 [facility] ([place] Comment on above: Performed By: #### P RO #### [address] [address] .GFRon 09-03-2022 GFR 58 ml/min/1.73sqm Normal [facility] ([place] Comment on above: Result Comment: GFR Population mean for , Non- Americans Ages 20-29 = 116 mL/min/1.73 sq.m. Ages 30-39 = 107 mL/min/1.73 sq.m. Ages 40-49 = 99 mL/min/1.73 sq.m. Ages 50-59 = 93 mL/min/1.73 sq.m. Ages 60-69 = 85 mL/min/1.73 sq.m. Ages 70+ = 75 mL/min/1.73 sq.m. Chronic Kidney Disease: Less than 60 mL/min/1.73 square meters End Stage Renal Disease: Less than 15 mL/min/1.73 square meters Performed By: #### P RO #### [address] [address] GFR Non- 48 ml/min/1.73sqm Normal [facility] ([place] Comment on above: Result Comment: GFR Population mean for , Non- Americans Ages 20-29 = 116 mL/min/1.73 sq.m. Ages 30-39 = 107 mL/min/1.73 sq.m. Ages 40-49 = 99 mL/min/1.73 sq.m. Ages 50-59 = 93 mL/min/1.73 sq.m. Ages 60-69 = 85 mL/min/1.73 sq.m. Ages 70+ = 75 mL/min/1.73 sq.m. Chronic Kidney Disease: Less than 60 mL/min/1.73 square meters End Stage Renal Disease: Less than 15 mL/min/1.73 square meters Performed By: #### P RO #### [address] [address] [facility] BUN/Creatinine Ratio 29.8 ratio High 10.0-22.0 [facility] ([place] Comment on above: Performed By: #### P RO #### [address] [address] Calcium [Mass/Vol] 8.9 mg/dL Normal 8.7-10.4 [facility] ([place]) Comment on above: Performed By: #### P RO #### [address] [address] Chloride [Moles/Vol] 108 mmol/L Normal 98-110 [facility] ([place] Comment on above: Performed By: #### P RO #### [place] [id number] CO2 [Moles/Vol] 26 mmol/L Normal 22-32 [facility] ([place] Comment on above: Performed By: #### P RO #### [place] [id number] Creatinine [Mass/Vol] 1.41 mg/dL High 0.60-1.40 [facility] ([place] Comment on above: Performed By: #### P RO #### [address] [address] Electrolyte Balance 9.0 mEq/L Normal 4.0-15.0 [facility] [place] Comment on above: Performed By: #### P RO #### [place] [id number] Glucose [Mass/Vol] 106 mg/dL Normal 82-115 [facility] ([place]) Comment on above: Performed By: #### P RO #### [address] [address] Potassium [Moles/Vol] 4.6 mmol/L Normal 3.5-5.0 [facility] ([place] Comment on above: Result Comment: Spec imen slightly hemolyzed. Performed By: #### P RO #### [address] [address] Sodium [Moles/Vol] 143 mmol/L Normal 136-145 [facility] ([place]) Comment on above: Performed By: #### P RO #### [address] [address] Urea nitrogen [Mass/Vol] 42.0 mg/dL High 8.0-22.0 [facility] ([place] Comment on above: Performed By: #### P RO #### [place] [address] SPEon 09-03-2022 SPE Interpretation The total protein and/or albumin is/are decreased. This may occur in liver disease, malnutrition, malabsorption syndromes, selective renal loss and following removal of large effusions, hemodialysis or apheresis. Normal [facility] ([place] Comment on above: Result Comment: Elec tronically Signed by: CANDY JAMA 09/03/2022 14:50 EDT Performed By: #### B MP, GFR #### [address] [address] Albumin 3.1 G/dL Low 3.3-5.0 [facility] ([place] Comment on above: Performed By: #### B MP, GFR #### [place] [id number] Alpha 1 0.3 G/dL Normal 0.1-0.4 [facility] ([place] Comment on above: Performed By: #### B MP, GFR #### [place] [id number] Alpha 2 1.0 G/dL Normal 0.6-1.2 [facility] ([place]) Comment on above: Performed By: #### B MP, GFR #### [address] [address] Beta 1.1 G/dL Normal 0.6-1.3 [facility] ([place]) Comment on above: Performed By: #### B MP, GFR #### [place] [id number] Gamma 1.0 G/dL Normal 0.7-1.6 [facility] ([place] Comment on above: Performed By: #### B MP, GFR #### [place] [address] Rissa 09-02-2022 CNPN Telephone (FAMPWS) VIRGINIATHANH E ([id number]) 1935 M Date Time Provider Department 09/02/22 [facility] During your visit today, we recorded the following information about you: Sahara Pathak RN 09/02/2022 9:20 AM Signed Jocelyn with [facility] called and asked to have Pts last OV note faxed to them. Faxed to # [phone]. Allergies As of Date: 09/02/2022 Noted Allergy Reaction DUST 05/29/2017 14 - Other: See Comments GRASS POLLEN 05/29/2017 14 - Other: See Comments MOLD SPORES 05/29/2017 14 - Other: See Comments Date Reviewed: 08/06/2022 Reviewed by: Juan Carlos Cuadra OD - Fully Assessed Reason for Visit: Fax Last OV note [Other] Prescriptions as of 09/02/2022 - Cholecalciferol, Vitamin D3, 50 mcg (2,000 unit) cap Take 1 capsule by mouth once daily. - lisinopril (ZESTRIL) 20 mg tablet Take 1 tablet by mouth once daily. - ezetimibe (ZETIA) 10 mg tablet Take 1 tablet by mouth once daily. - atorvastatin (LIPITOR) 40 mg tablet Take 1 tablet by mouth once daily. - metoprolol tartrate, short acting, (LOPRESSOR) 100 mg tablet Take 1 tablet by mouth twice daily. - potassium chloride (KLOR-CON 10) 10 mEq tablet Take 1 tablet by mouth once daily. - sertraline (ZOLOFT) 50 mg tablet Take 1 tablet by mouth daily with dinner. - furosemide (LASIX) 20 mg tablet TAKE 1 TABLET BY MOUTH DAILY AFTER BREAKFAST *FOR SWELLING - Fenofibrate (LOFIBRA) 54 mg tablet Take 1 tablet by mouth once daily. - apixaban (ELIQUIS) 2.5 mg tab(s) Take 1 tablet by mouth twice daily. - erythromycin (ROMYCIN) 5 mg/gram (0.5 %) ophthalmic ointment In both eyes and on incisions four times a day X 1 wk then twice a day x 1 wk - erythromycin (ROMYCIN) 5 mg/gram (0.5 %) ophthalmic ointment Apply 1/2 inch ribbon per application to incision and in eye four times a day X 1 wk then twice a day x 1 wk - ketoconazole (NIZORAL) 2 % cream Apply to affected area twice daily. To the ear for rash - ketoconazole (NIZORAL) 2 % shampoo Apply to affected area once daily as needed for itching/rash. - triamcinolone (KENALOG) 0.1 % lotion Apply to affected area three times daily. - rgimnbba-qxrbknars-ydbg icidin (NEOMYCIN) 1.75 mg-10,000 unit-0.025mg/mL drop Apply 3 drops to each ear twice daily. - lekgyvfx-tbnwyjjah-fhwv ocortisone (CORTISPORIN) 3.5-10,000-1 mg/mL-unit/mL-% otic suspension Use 4 Drops in the ears four times daily. - warfarin (COUMADIN) 4 mg tablet Take 1 tablet by mouth once daily. - nitroglycerin sublingual (NITROQUICK) 0.4 mg SL tablet Dissolve 1 tablet under the tongue every 5 minutes as needed. - albuterol HFA (VENTOLIN HFA) 90 mcg/actuation inhaler Inhale 2 Puffs as instructed every 4 hours as needed for wheezing/shortness of breath. - fluticasone (FLONASE) 50 mcg/actuation nasal spray Use 1 [place] in each nostril daily at bedtime. - aspirin, enteric coated (ASPIRIN, ENTERIC COATED) 81 mg EC tablet Take 81 mg by mouth once daily. - senna (SENOKOT) 8.6 mg tab Take 8.6 mg by mouth once daily as needed. - Magnesium 250 mg tab Take 250 mg by mouth once daily. 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] 08/10/2015 Sick sinus syndrome (HCC) [I49.5] 08/10/2015 Permanent atrial fibrillation (HCC) [I48.21] 08/10/2015 Gastrointestinal hemorrhage associated with ang*08/10/2015 Dyslipidemia [E78.5] 08/10/2015 Tobacco use [Z72.0] 08/10/2015 Encounter for monitoring anti-arrhythmic therap*08/10/2015 06/22/2020 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] 08/10/2015 Chronic obstructive pulmonary disease (HCC) [J4*01/29/2016 CKD (chronic kidney disease) [N18.9] 06/19/2016 06/22/2020 Allergic rhinitis [J30.9] 06/19/2016 06/22/2020 Essential hypertension [I10] 06/19/2016 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] 12/21/2015 Arteriosclerosis of coronary artery [I25.10] 12/23/2019 Aortic aneurysm (HCC) [I71.9] 06/22/2020 Abnormal cholesterol test [E78.9] 06/22/2020 COPD (chronic obstructive pulmonary disease) (H* 06/22/2020 H/O right heart catheterization [Z98.890] 06/22/2020 High blood pressure [I10] 07/29/2016 History of heart attack [I25.2] 06/22/2020 Neuropathy (HCC) [G62.9] Thrombocytopenia (HCC) [D69.6] Hypertriglyceridemia [E78.1] Low HDL (under 40) [E78.6] 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 Normal [facility] IFESon 09-02-2022 IFES Interpretation Immunofixation electrophoresis of serum shows the presence of only polyclonal immunoglobulins (IgG,A,M,[place] and Lambda), No monoclonal protein detected. Normal [facility] ([place]) Comment on above: Result Comment: Elec tronically Signed by: CANDY JAMA 09/02/2022 14:04 EDT Performed By: #### B MP, GFR #### [address] [address] .GFRon 09-01-2022 GFR >60 Normal [facility] ([place]) Comment on above: Result Comment: GFR Population mean for , Non- Americans Ages 20-29 = 116 mL/min/1.73 sq.m. Ages 30-39 = 107 mL/min/1.73 sq.m. Ages 40-49 = 99 mL/min/1.73 sq.m. Ages 50-59 = 93 mL/min/1.73 sq.m. Ages 60-69 = 85 mL/min/1.73 sq.m. Ages 70+ = 75 mL/min/1.73 sq.m. Chronic Kidney Disease: Less than 60 mL/min/1.73 square meters End Stage Renal Disease: Less than 15 mL/min/1.73 square meters Performed By: #### G FR, BMP #### [place] [address] GFR Non- 52 ml/min/1.73sqm Normal [facility] ([place]) Comment on above: Result Comment: GFR Population mean for , Non- Americans Ages 20-29 = 116 mL/min/1.73 sq.m. Ages 30-39 = 107 mL/min/1.73 sq.m. Ages 40-49 = 99 mL/min/1.73 sq.m. Ages 50-59 = 93 mL/min/1.73 sq.m. Ages 60-69 = 85 mL/min/1.73 sq.m. Ages 70+ = 75 mL/min/1.73 sq.m. Chronic Kidney Disease: Less than 60 mL/min/1.73 square meters End Stage Renal Disease: Less than 15 mL/min/1.73 square meters Performed By: #### [place] KHAN, BMP #### [address] [address] [facility] BUN/Creatinine Ratio 24.4 ratio High 10.0-22.0 [facility] ([place]) Comment on above: Performed By: #### [place] KHAN, BMP #### [address] [address] Calcium [Mass/Vol] 8.7 mg/dL Normal 8.7-10.4 [facility] ([place]) Comment on above: Performed By: #### [place] KHAN, BMP #### [address] [address] Chloride [Moles/Vol] 109 mmol/L Normal 98-110 [facility] ([place]) Comment on above: Performed By: #### [place] KHAN, BMP #### [address] [address] CO2 [Moles/Vol] 26 mmol/L Normal 22-32 [facility] ([place] Comment on above: Performed By: #### [place] KHAN, BMP #### [address] [address] Creatinine [Mass/Vol] 1.31 mg/dL Normal 0.60-1.40 [facility] ([place] Comment on above: Performed By: #### [place] KHAN, BMP #### [address] [address] Electrolyte Balance 6.0 mEq/L Normal 4.0-15.0 [facility] [place] Comment on above: Performed By: #### [place] KHAN, BMP #### [address] [address] Glucose [Mass/Vol] 217 mg/dL High 82-115 [facility] ([place]) Comment on above: Performed By: #### [place] KHAN, BMP #### [address] [address] Potassium [Moles/Vol] 4.6 mmol/L Normal 3.5-5.0 [facility] ([place]) Comment on above: Performed By: #### [place] FR, BMP #### [address] [address] Sodium [Moles/Vol] 141 mmol/L Normal 136-145 [facility] ([place]) Comment on above: Performed By: #### G FR, BMP #### [address] [address] Urea nitrogen [Mass/Vol] 32.0 mg/dL High 8.0-22.0 [facility] ([place] Comment on above: Performed By: #### [place] KHAN, BMP #### [address] [address] .GFRon 08-31-2022 GFR >60 Normal [facility] ([place]) Comment on above: Result Comment: GFR Population mean for , Non- Americans Ages 20-29 = 116 mL/min/1.73 sq.m. Ages 30-39 = 107 mL/min/1.73 sq.m. Ages 40-49 = 99 mL/min/1.73 sq.m. Ages 50-59 = 93 mL/min/1.73 sq.m. Ages 60-69 = 85 mL/min/1.73 sq.m. Ages 70+ = 75 mL/min/1.73 sq.m. Chronic Kidney Disease: Less than 60 mL/min/1.73 square meters End Stage Renal Disease: Less than 15 mL/min/1.73 square meters Performed By: #### B MP, GFR #### [address] [address] GFR Non- 51 ml/min/1.73sqm Normal [facility] ([place]) Comment on above: Result Comment: GFR Population mean for , Non- Americans Ages 20-29 = 116 mL/min/1.73 sq.m. Ages 30-39 = 107 mL/min/1.73 sq.m. Ages 40-49 = 99 mL/min/1.73 sq.m. Ages 50-59 = 93 mL/min/1.73 sq.m. Ages 60-69 = 85 mL/min/1.73 sq.m. Ages 70+ = 75 mL/min/1.73 sq.m. Chronic Kidney Disease: Less than 60 mL/min/1.73 square meters End Stage Renal Disease: Less than 15 mL/min/1.73 square meters Performed By: #### B MP, GFR #### [address] [address] ALDOon 08-31-2022 Aldolase 3.0 U/L Normal 1.5-8.1 [facility] ([place]) Comment on above: Result Comment: This test was developed and its performance characteristics determined by [facility] [place] ([facility]). It has not been cleared or approved by the FDA. -[facility] is regulated under CLIA as qualified to perform high-complexity testing. This test is used for clinical purposes. It should not be regarded as investigational or for research. Performed By: [facility] [address] [place] [address] Production Material Handler: Reggie Seth III, M.D. CLIA#: [id number] Performed By: #### B MP, GFR #### [address] [address] BMPon 08-31-2022 BUN/Creatinine Ratio 20.3 ratio Normal 10.0-22.0 [facility] ([place]) Comment on above: Performed By: #### B MP, GFR #### [address] [address] Calcium [Mass/Vol] 8.8 mg/dL Normal 8.7-10.4 [facility] ([place]) Comment on above: Performed By: #### B MP, GFR #### [address] [address] Chloride [Moles/Vol] 111 mmol/L High 98-110 [facility] ([place] Comment on above: Performed By: #### B MP, GFR #### [address] [address] CO2 [Moles/Vol] 29 mmol/L Normal 22-32 [facility] ([place] Comment on above: Performed By: #### B MP, GFR #### [address] [address] Creatinine [Mass/Vol] 1.33 mg/dL Normal 0.60-1.40 [facility] ([place] Comment on above: Performed By: #### B MP, GFR #### [address] [address] Electrolyte Balance 1.0 mEq/L Low 4.0-15.0 [facility] [place] Comment on above: Performed By: #### B MP, GFR #### [address] [address] Glucose [Mass/Vol] 155 mg/dL High 82-115 [facility] ([place]) Comment on above: Performed By: #### B MP, GFR #### [place] [address] Potassium [Moles/Vol] 4.2 mmol/L Normal 3.5-5.0 [facility] ([place] Comment on above: Performed By: #### B MP, GFR #### [address] [address] Sodium [Moles/Vol] 141 mmol/L Normal 136-145 [facility] ([place]) Comment on above: Performed By: #### B MP, GFR #### [address] [address] Urea nitrogen [Mass/Vol] 27.0 mg/dL High 8.0-22.0 [facility] ([place] Comment on above: Performed By: #### B MP, GFR #### [address] [address] CRYOon 08-31-2022 Cryoglobulin Negative Normal Negative [facility] ([place] Comment on above: Performed By: #### B MP, GFR #### [address] [address] .Auto Diffon 08-30-2022 Basophil, Absolute 0.0 10 3/mcL Normal 0.0-0.3 [facility] [place] Comment on above: Performed By: #### C BC, GFR, BMP, ANEU, ADIFF #### [address] [address] Basophils/100 WBC (Bld) 0.6 % Normal 0.0-2.5 [facility] ([place]) Comment on above: Performed By: #### C BC, GFR, BMP, ANEU, ADIFF #### [address] [address] Eosinophil, Absolute 0.2 10 3/mcL Normal 0.0-0.7 [facility] ([place]) Comment on above: Performed By: #### C BC, GFR, BMP, ANEU, ADIFF #### [address] [address] Eosinophils/100 WBC (Bld) 2.5 % Normal 0.0-6.0 [facility] ([place]) Comment on above: Performed By: #### C BC, GFR, BMP, ANEU, ADIFF #### [address] [address] Lymphocyte, Absolute 1.3 10 3/mcL Normal 0.9-4.3 [facility] ([place]) Comment on above: Performed By: #### C BC, GFR, BMP, ANEU, ADIFF #### [address] [address] Lymphocytes/100 WBC (Bld) 15.7 % Low 20.0-40.0 [facility] ([place] Comment on above: Performed By: #### C BC, GFR, BMP, ANEU, ADIFF #### [address] [address] Monocyte, Absolute 1.1 10 3/mcL Normal 0.1-1.4 [facility] [place] Comment on above: Performed By: #### C BC, GFR, BMP, ANEU, ADIFF #### [address] [address] Monocytes/100 WBC (Bld) 13.3 % High 2.0-13.0 [facility] ([place] Comment on above: Performed By: #### C BC, GFR, BMP, ANEU, ADIFF #### [address] [address] Neutrophils/100 WBC (Bld) 67.9 % Normal 50.0-75.0 [facility] ([place] Comment on above: Performed By: #### C BC, GFR, BMP, ANEU, ADIFF #### [address] [address] .GFRon 08-30-2022 GFR >60 Normal [facility] ([place] Comment on above: Result Comment: GFR Population mean for , Non- Americans Ages 20-29 = 116 mL/min/1.73 sq.m. Ages 30-39 = 107 mL/min/1.73 sq.m. Ages 40-49 = 99 mL/min/1.73 sq.m. Ages 50-59 = 93 mL/min/1.73 sq.m. Ages 60-69 = 85 mL/min/1.73 sq.m. Ages 70+ = 75 mL/min/1.73 sq.m. Chronic Kidney Disease: Less than 60 mL/min/1.73 square meters End Stage Renal Disease: Less than 15 mL/min/1.73 square meters Performed By: #### C BC, GFR, BMP, ANEU, ADIFF #### [place] [address] GFR Non- 56 ml/min/1.73sqm Normal [facility] ([place] Comment on above: Result Comment: GFR Population mean for , Non- Americans Ages 20-29 = 116 mL/min/1.73 sq.m. Ages 30-39 = 107 mL/min/1.73 sq.m. Ages 40-49 = 99 mL/min/1.73 sq.m. Ages 50-59 = 93 mL/min/1.73 sq.m. Ages 60-69 = 85 mL/min/1.73 sq.m. Ages 70+ = 75 mL/min/1.73 sq.m. Chronic Kidney Disease: Less than 60 mL/min/1.73 square meters End Stage Renal Disease: Less than 15 mL/min/1.73 square meters Performed By: #### C BC, GFR, BMP, ANEU, ADIFF #### [address] [address] .NEUABSon 08-30-2022 Neutrophil, Absolute 5.4 10 3/mcL Normal 2.3-8.1 [facility] ([place] Comment on above: Performed By: #### C BC, GFR, BMP, ANEU, ADIFF #### [address] [address] A1Con 08-30-2022 HbA1c (Bld) [Mass fraction] 5.5 % Normal 4.0-6.0 [facility] ([place] Comment on above: Performed By: #### B MP, GFR #### [address] [address] HbA1c (Bld) [Mass fraction] 5.5 % Normal 4.0-6.0 [facility] ([place] Comment on above: Performed By: #### B MP, GFR #### [address] [address] B12on 08-30-2022 Cobalamin (Vitamin B12) [Mass/Vol] 339 pg/mL Normal 211-911 [facility] ([place] Comment on above: Performed By: #### B MP, GFR #### [address] [address] BMPon 08-30-2022 BUN/Creatinine Ratio 20.5 ratio Normal 10.0-22.0 [facility] ([place] Comment on above: Performed By: #### C BC, GFR, BMP, ANEU, ADIFF #### [address] [address] Calcium [Mass/Vol] 8.6 mg/dL Low 8.7-10.4 [facility] ([place]) Comment on above: Performed By: #### C BC, GFR, BMP, ANEU, ADIFF #### [address] [address] Chloride [Moles/Vol] 110 mmol/L Normal 98-110 [facility] ([place] Comment on above: Performed By: #### C BC, GFR, BMP, ANEU, ADIFF #### [address] [address] CO2 [Moles/Vol] 27 mmol/L Normal 22-32 [facility] ([place] Comment on above: Performed By: #### C BC, GFR, BMP, ANEU, ADIFF #### [address] [address] Creatinine [Mass/Vol] 1.22 mg/dL Normal 0.60-1.40 [facility] ([place] Comment on above: Performed By: #### C BC, GFR, BMP, ANEU, ADIFF #### [address] [address] Electrolyte Balance 7.0 mEq/L Normal 4.0-15.0 [facility] [place] Comment on above: Performed By: #### C BC, GFR, BMP, ANEU, ADIFF #### [address] [address] Glucose [Mass/Vol] 94 mg/dL Normal 82-115 [facility] ([place]) Comment on above: Performed By: #### C BC, GFR, BMP, ANEU, ADIFF #### [address] [address] Potassium [Moles/Vol] 4.0 mmol/L Normal 3.5-5.0 [facility] ([place] Comment on above: Performed By: #### C BC, GFR, BMP, ANEU, ADIFF #### [address] [address] Sodium [Moles/Vol] 144 mmol/L Normal 136-145 [facility] ([place]) Comment on above: Performed By: #### C BC, GFR, BMP, ANEU, ADIFF #### [address] [address] Urea nitrogen [Mass/Vol] 25.0 mg/dL High 8.0-22.0 [facility] ([place] Comment on above: Performed By: #### C BC, GFR, BMP, ANEU, ADIFF #### [address] [address] CBCon 08-30-2022 Erythrocyte distribution width (RBC) [Ratio] 14.0 % Normal 11.5-15.5 [facility] ([place] Comment on above: Performed By: #### C BC, GFR, BMP, ANEU, ADIFF #### [place] [address] Hematocrit (Bld) [Volume fraction] 39.2 % Low 40.0-52.0 [facility] ([place] Comment on above: Performed By: #### C BC, GFR, BMP, ANEU, ADIFF #### [place] [address] Hgb 13.0 G/dL Normal 13.0-17.5 [facility] ([place] Comment on above: Performed By: #### C BC, GFR, BMP, ANEU, ADIFF #### [place] [address] MCH (RBC) [Entitic mass] 30.4 pg Normal 27.0-33.0 [facility] ([place] Comment on above: Performed By: #### C BC, GFR, BMP, ANEU, ADIFF #### [place] [address] MCHC 33.3 G/dL Normal 32.0-36.0 [facility] ([place] Comment on above: Performed By: #### C BC, GFR, BMP, ANEU, ADIFF #### [place] [address] MCV (RBC) [Entitic vol] 91.5 fL Normal 81.0-100.0 [facility] ([place] Comment on above: Performed By: #### C BC, GFR, BMP, ANEU, ADIFF #### [place] [address] Platelet 161 10 3/mcL Normal 150-450 [facility] ([place] Comment on above: Performed By: #### C BC, GFR, BMP, ANEU, ADIFF #### [place] [address] Platelet mean volume (Bld) [Entitic vol] 8.9 fL Normal 6.4-10.5 [facility] ([place] Comment on above: Performed By: #### C BC, GFR, BMP, ANEU, ADIFF #### [place] [address] RBC 4.28 10 6/mcL Low 4.50-6.00 [facility] ([place] Comment on above: Performed By: #### C BC, GFR, BMP, ANEU, ADIFF #### [facility] [address] [place] [address] WBC 8.0 10 3/mcL Normal 4.5-10.8 [facility] ([place] Comment on above: Performed By: #### C BC, GFR, BMP, ANEU, ADIFF #### [facility] [address] [place] [address] CKon 08-30-2022 CK [Catalytic activity/Vol] 114 U/L Normal 7-185 [facility] ([place] Comment on above: Performed By: #### B MP, GFR #### [address] [address] CNPNon 08-30-2022 [facility] Telephone (FAMWS) THANH COLEMAN ([id number]) 1935 M Date Time Provider Department 08/30/22 [facility] During your visit today, we recorded the following information about you: Pam Goff RN 08/30/2022 2:09 PM Signed Jocelyn Lopez LPN with [facility] calling and requesting pt's most recent PCP OV note be faxed to her at [phone]. Contacted patient to verify services being received by this company and pt reports he does receive services from them and gives his consent to fax information as requested. Faxed as requested. Pam Goff RN Allergies As of Date: 08/30/2022 Noted Allergy Reaction DUST 05/29/2017 14 - Other: See Comments GRASS POLLEN 05/29/2017 14 - Other: See Comments MOLD SPORES 05/29/2017 14 - Other: See Comments Date Reviewed: 08/06/2022 Reviewed by: Juan Carlos Cuadra OD - Fully Assessed Reason for Visit: Request [Other] Prescriptions as of 08/30/2022 - Cholecalciferol, Vitamin D3, 50 mcg (2,000 unit) cap Take 1 capsule by mouth once daily. - lisinopril (ZESTRIL) 20 mg tablet Take 1 tablet by mouth once daily. - ezetimibe (ZETIA) 10 mg tablet Take 1 tablet by mouth once daily. - atorvastatin (LIPITOR) 40 mg tablet Take 1 tablet by mouth once daily. - metoprolol tartrate, short acting, (LOPRESSOR) 100 mg tablet Take 1 tablet by mouth twice daily. - potassium chloride (KLOR-CON 10) 10 mEq tablet Take 1 tablet by mouth once daily. - sertraline (ZOLOFT) 50 mg tablet Take 1 tablet by mouth daily with dinner. - furosemide (LASIX) 20 mg tablet TAKE 1 TABLET BY MOUTH DAILY AFTER BREAKFAST *FOR SWELLING - Fenofibrate (LOFIBRA) 54 mg tablet Take 1 tablet by mouth once daily. - apixaban (ELIQUIS) 2.5 mg tab(s) Take 1 tablet by mouth twice daily. - erythromycin (ROMYCIN) 5 mg/gram (0.5 %) ophthalmic ointment In both eyes and on incisions four times a day X 1 wk then twice a day x 1 wk - erythromycin (ROMYCIN) 5 mg/gram (0.5 %) ophthalmic ointment Apply 1/2 inch ribbon per application to incision and in eye four times a day X 1 wk then twice a day x 1 wk - ketoconazole (NIZORAL) 2 % cream Apply to affected area twice daily. To the ear for rash - ketoconazole (NIZORAL) 2 % shampoo Apply to affected area once daily as needed for itching/rash. - triamcinolone (KENALOG) 0.1 % lotion Apply to affected area three times daily. - awueykvm-qanwilzto-nkaq icidin (NEOMYCIN) 1.75 mg-10,000 unit-0.025mg/mL drop Apply 3 drops to each ear twice daily. - dwtkoemo-aytixtalp-muyj ocortisone (CORTISPORIN) 3.5-10,000-1 mg/mL-unit/mL-% otic suspension Use 4 Drops in the ears four times daily. - warfarin (COUMADIN) 4 mg tablet Take 1 tablet by mouth once daily. - nitroglycerin sublingual (NITROQUICK) 0.4 mg SL tablet Dissolve 1 tablet under the tongue every 5 minutes as needed. - albuterol HFA (VENTOLIN HFA) 90 mcg/actuation inhaler Inhale 2 Puffs as instructed every 4 hours as needed for wheezing/shortness of breath. - fluticasone (FLONASE) 50 mcg/actuation nasal spray Use 1 [place] in each nostril daily at bedtime. - aspirin, enteric coated (ASPIRIN, ENTERIC COATED) 81 mg EC tablet Take 81 mg by mouth once daily. - senna (SENOKOT) 8.6 mg tab Take 8.6 mg by mouth once daily as needed. - Magnesium 250 mg tab Take 250 mg by mouth once daily. 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] 08/10/2015 Sick sinus syndrome (HCC) [I49.5] 08/10/2015 Permanent atrial fibrillation (HCC) [I48.21] 08/10/2015 Gastrointestinal hemorrhage associated with ang*08/10/2015 Dyslipidemia [E78.5] 08/10/2015 Tobacco use [Z72.0] 08/10/2015 Encounter for monitoring anti-arrhythmic therap*08/10/2015 06/22/2020 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] 08/10/2015 Chronic obstructive pulmonary disease (HCC) [J4*01/29/2016 CKD (chronic kidney disease) [N18.9] 06/19/2016 06/22/2020 Allergic rhinitis [J30.9] 06/19/2016 06/22/2020 Essential hypertension [I10] 06/19/2016 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) [G62.9] Thrombocytopenia (HCC) [D69.6] Hypertr (more content not included)... Normal [facility] CRPon 08-30-2022 C-Reactive Protein 9.4 mg/dL High 0.0-1.0 [facility] ([place]) Comment on above: Result Comment: No te - New Reference Range in effect 19 Performed By: #### B MP, GFR #### [address] [address] ESRon 08-30-2022 Erythrocyte Sed Rate 82 mm/hr High 0-20 [facility] ([place]) Comment on above: Performed By: #### B MP, GFR #### [address] [address] LIPIDon 08-30-2022 Cholesterol [Mass/Vol] 102 mg/dL Normal 50-199 [facility] ([place] Comment on above: Result Comment: Chol esterol Reference Interval: Less than 200 Desirable 200-239 Borderline high risk 240 and above High risk Performed By: #### B MP, GFR #### [address] [address] Cholesterol in HDL [Mass/Vol] 33 mg/dL Low 40-59 [facility] ([place]) Comment on above: Performed By: #### B MP, GFR #### [address] [address] Cholesterol in LDL [Mass/Vol] 41 mg/dL Normal 0-129 [facility] ([place]) Comment on above: Performed By: #### B MP, GFR #### [facility] [address] [place] [address] Triglyceride [Mass/Vol] 138 mg/dL Normal 3-149 [facility] ([place]) Comment on above: Performed By: #### B MP, GFR #### [facility] [address] [place] [address] SPEon 08-30-2022 Total Protein 6.6 G/dL Normal 5.7-8.2 [facility] ([place]) Comment on above: Result Comment: No te - New Reference Range in effect 19 Performed By: #### B MP, GFR #### [address] [address] APTTon 08-29-2022 aPTT Coag (Bld) [Time] 29.6 s Normal 25.4 - 38.4 [facility] Comment on above: Performed By: #### 2 71653 #### [facility],[address] [place] [address] C-REACTIVE PROTEINon 023 CRP 4.30 mg/dl High 0.00 - 0.90 [facility] Comment on above: Performed By: #### 2 98839 #### [facility],[address] [place] [address] CBC + DIFFon 08-29-2022 Baso # 0.00 x10EE3/UL Normal 0.00 - 0.10 [facility] Comment on above: Performed By: #### 2 12521 #### [facility],[address] [place] [address] Basophils/100 WBC (Bld) 0.5 % Normal 0.0 - 2.0 [facility] Comment on above: Performed By: #### 2 70303 #### [facility],[address] [place] [address] CBC + DIFF Normal [facility] Comment on above: Result Comment: CBC- COMPLETE BLOOD COUNT Performed By: #### 2 90698 #### [facility],[address] [place] [address] EO # 0.20 x10EE3/UL Normal 0.00 - 0.50 [facility] Comment on above: Performed By: #### 2 48052 #### [facility],[address] [place] [address] Eosinophils/100 WBC (Bld) 2.0 % Normal 0.0 - 7.0 [facility] Comment on above: Performed By: #### 2 31908 #### [facility],[address] [place] [address] Erythrocyte distribution width (RBC) [Ratio] 14.0 % Normal 12.0 - 15.6 [facility] Comment on above: Performed By: #### 2 51266 #### [facility],[address] [place] [address] Hematocrit (Bld) [Volume fraction] 46.0 % Normal 40.0 - 52.0 [facility] Comment on above: Performed By: #### 2 00622 #### [facility],[address] [place] [address] Hemoglobin (Bld) [Mass/Vol] 15.2 g/dL Normal 13.0 - 17.5 [facility] Comment on above: Performed By: #### 2 71517 #### [facility],[address] [place] [address] Lymph # 1.00 x10EE3/UL Normal 0.80 - 2.80 [facility] Comment on above: Performed By: #### 2 86420 #### [facility],[address] [place] [address] Lymphocytes/100 WBC (Bld) 11.3 % Low 20.0 - 45.0 [facility] Comment on above: Performed By: #### 2 71385 #### [facility],[address] [place], [place] [address] MANUAL DIFF N/A Normal [facility] Comment on above: Performed By: #### 2 83309 #### [facility],[address] [place] [address]773 MCH (RBC) [Entitic mass] 30 pg Normal 27 - 33 [facility] Comment on above: Performed By: #### 2 63992 #### [facility],[address] [place] [address] MCHC 33 X10 3 Normal 32 - 36 [facility] Comment on above: Performed By: #### 2 34585 #### [facility],[address] [place] [address] MCV (RBC) [Entitic vol] 92 fL Normal 81 - 98 [facility] Comment on above: Performed By: #### 2 36640 #### [facility],[address] [place] [address] [place] # 0.90 x10EE3/UL Normal 0.20 - 1.00 [facility] Comment on above: Performed By: #### 2 78748 #### [facility],[address] [place] [address] MONOS % 9.6 % Normal 0.0 - 10.0 [facility] Comment on above: Performed By: #### 2 25148 #### [facility],[address] [place] [address] Morphology Jose (Bld) [Interp] N/A Normal [facility] Comment on above: Performed By: #### 2 87442 #### [facility],[address] [place] [address] Neut # 7.00 x10EE3/UL Normal 1.50 - 7.10 [facility] Comment on above: Performed By: #### 2 41341 #### [facility],[address] [place] [address] Neutrophils/100 WBC (Bld) 76.6 % High 46.0 - 76.0 [facility] Comment on above: Performed By: #### 2 41363 #### [facility],[address] [place] [address] PLATELET 206 x10EE3/UL Normal 150 - 450 [facility] Comment on above: Performed By: #### 2 12792 #### [facility],[address] [place] [address] Platelet mean volume (Bld) [Entitic vol] 9.2 fL Normal 6.4 - 10.5 [facility] Comment on above: Result Comment: AUTO MATED DIFFERENTIAL Performed By: #### 2 57335 #### [facility],[address] [place] [address] RBC 5.03 x 10EE6/UL Normal 4.50 - 6.00 [facility] Comment on above: Performed By: #### 2 69510 #### [facility],[address] [place] [address] WBC 9.1 x 10EE3/UL Normal 4.5 - 10.8 [facility] Comment on above: Performed By: #### 2 39136 #### [facility],[address] [place], [place] [phone] CMP with eGFRon 08-29-2022 AGE 86 years Normal [facility] Comment on above: Performed By: #### 2 26160 #### [facility],[address] [place] [address] Albumin [Mass/Vol] 3.8 g/dL Normal 3.4 - 5.0 [facility] Comment on above: Performed By: #### 2 85032 #### [facility],[address] [place] [address] Albumin/Globulin [Mass ratio] 0.9 {ratio} Normal 0.9 - 1.6 [facility] Comment on above: Performed By: #### 2 70308 #### [facility],[address] [place], [place] [phone] ALK PHOS 84 U/L Normal 46 - 116 [facility] Comment on above: Performed By: #### 2 10176 #### [facility],[address] [place] [address] ALT [Catalytic activity/Vol] 16 U/L Normal 16 - 63 [facility] Comment on above: Performed By: #### 2 28036 #### [facility],[address] [place], [place] [address] Anion gap [Moles/Vol] 9 mmol/L Low 10 - 20 [facility] Comment on above: Performed By: #### 2 37226 #### [facility],[address] [place] [address] AST [Catalytic activity/Vol] 19 U/L Normal 15 - 37 [facility] Comment on above: Performed By: #### 2 81492 #### [facility],[address] [place] [address] B/C RATIO 18 ratio Normal 0 - 30 [facility] Comment on above: Performed By: #### 2 14748 #### [facility],[address] [place] [address] Bilirubin [Mass/Vol] 0.8 mg/dL Normal 0.2 - 1.0 [facility] Comment on above: Performed By: #### 2 55392 #### [facility],[address] [place] [address] Calcium [Mass/Vol] 9.5 mg/dL Normal 8.5 - 10.1 [facility] Comment on above: Performed By: #### 2 04194 #### [facility],[address] [place] [address] Chloride [Moles/Vol] 94 mmol/L Low 98 - 107 [facility] Comment on above: Performed By: #### 2 12613 #### [facility],[address] [place] [address] CMP with eGFR Normal [facility] Comment on above: Result Comment: COMP REHENSIVE METABOLIC PANEL Performed By: #### 2 31173 #### [facility],[address] [place] [address] CO2 [Moles/Vol] 28.8 mmol/L Normal 21.0 - 32.0 [facility] Comment on above: Performed By: #### 2 22325 #### [place] [address] Creatinine [Mass/Vol] 1.37 mg/dL High 0.70 - 1.30 [facility] Comment on above: Performed By: #### 2 66514 #### [place] [address] eGFR 49 ML/MINUTE Low 60 - 999 [facility] Comment on above: Performed By: #### 2 04757 #### [place] [address] eGFR(AA) 60 ML/MINUTE Normal 60 - 999 [facility] Comment on above: Result Comment: ACCO RDING TO THE NATIONAL KIDNEY DISEASE EDUCATION PROGRAM(NKDE), A NORMAL eGFR IS A VALUE GREATER THAN OR EQUAL TO 60 ML/MIN/1.73 SQ METERS. CHRONIC KIDNEY DISEASE: <60mL/MIN/1.73 SQ METERS KIDNEY FAILURE: <15mL/MIN/1.73 SQ METERS THIS TEST SHOULD ONLY BE USED FOR PATIENTS 18 YEARS OF AGE AND OLDER. Performed By: #### 2 18812 #### [facility],[address] [place], [place] [address] Globulin (S) [Mass/Vol] 4.4 g/dL High 1.5 - 3.8 [facility] Comment on above: Performed By: #### 2 14342 #### [place] [id number] Glucose [Mass/Vol] 102 mg/dL Normal 74 - 106 [facility] Comment on above: Performed By: #### 2 71623 #### [facility],[address] [place] [address] Potassium [Moles/Vol] 3.8 mmol/L Normal 3.5 - 5.1 [facility] Comment on above: Performed By: #### 2 69535 #### [facility],[address] [place] [address] Protein [Mass/Vol] 8.2 g/dL Normal 6.4 - 8.2 [facility] Comment on above: Performed By: #### 2 30666 #### [facility],[address] [place] [address] Sodium [Moles/Vol] 128 mmol/L Low 136 - 145 [facility] Comment on above: Performed By: #### 2 48916 #### [facility],[address] [place] [address] Urea nitrogen [Mass/Vol] 25 mg/dL High 7 - 18 [facility] Comment on above: Performed By: #### 2 49653 #### [facility],[address] [place] [address] CPKon 08-29-2022 CPK 30 U/L Low 39 - 308 [facility] Comment on above: Performed By: #### 2 64737 #### [facility],[address] [place] [address] [address] CHEST/ABD/PELVIS C+on CT CHEST/ABD/PELVIS C+ [place] [address] Patient: THANH COLEMAN Phone#: : 1935 Age: 86 Gender: M Pt. Type: ER Account: [id number] Location: [facility] Ordering: SATNAM MADRID Exam Date: 08/29/2022/14:59 Family Phys: DR. BOO MARINA D.O. Charge Code: 041665 Physician: [place] Order #: [id number] Dose#: 26.10 mGy PROCEDURE: CT CHEST/ABD/PELVIS W COMPARISON: [facility], CT, CHEST/ABDOMEN/PELVIS W CON, 12/23/2019, 19:53. INDICATIONS: Pain. TECHNIQUE: After obtaining the patient's consent, CT images were obtained with intravenous contrast material. All CT scans at this facility use dose modulation, iterative reconstruction, and/or weight based dosing when appropriate to reduce radiation dose to as low as reasonably achievable. IV CONTRAST: Omnipaque 350,80ml CHEST DOSE: 8.30 CTDIvol(mGy) ABDOMEN DOSE: 17.8 CTDIvol(mGy) FINDINGS: LUNGS: Bullous changes are present. No visible pulmonary disease. VASCULATURE: Normal. No visible pulmonary arterial thrombus or attenuation. JENNY: Normal. No mass or adenopathy. MEDIASTINUM: Normal. No mass or adenopathy. CARDIAC: Normal. No enlargement, pericardial thickening, or significant calcification. PLEURA: Normal. No mass or effusion. CHEST WALL: Normal. No mass or axillary adenopathy. LIVER: Normal. No enlargement, atrophy, abnormal density, or significant focal lesion. BILIARY: Gallbladder calculi are present. PANCREAS: Normal. No lesion, fluid collection, ductal dilatation, or atrophy. SPLEEN: Normal. No enlargement or focal lesion. KIDNEYS: Bilateral renal cysts are present.. No mass, obstruction, or calcification. ADRENALS: Normal. No mass or enlargement. AORTA/VASCULAR: The ascending aorta measures 4.3 centimeters in diameter and unchanged from prior exam. Extensive peripheral calcification is present. 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 Type: ER Account: [id number] Location: 052 Ordering: SATNAM MADRID Exam Date: 08/29/2022/14:59 Family Phys: DR. BOO MARINA D.O. Charge Code: 151942 Physician: [place] Order #: [id number] Dose#: 26.10 mGy prior exam of 4.5 centimeters. Calcification is present within the thrombus and similar to previous exam. RETROPERITONEUM: Normal. No mass or adenopathy. BOWEL/MESENTERY: There is a large amount of stool at the rectosigmoid colon.. No visible mass, obstruction, or bowel wall thickening. ABDOMINAL WALL: Tiny midline abdominal wall defects are present with herniation of fat but unchanged from previous exam. URINARY BLADDER: The bladder is decompressed. Garcia catheter is present. PELVIC NODES: Normal. No adenopathy. PELVIC ORGANS: Normal. No visible mass. Pelvic organs appropriate for patient age. BONES: Degenerative changes are present at the lumbar level.. No bony lesion or fracture. OTHER: Negative. CONCLUSION: 1. Extensive aortic calcifications present. 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 There is calcification within the thrombus but unchanged from prior exam. There is no evidence of acute hemorrhage. 2. Cholelithiasis. 3. Fecal impaction at the rectosigmoid colon. Dictated by: Francine Rosas MD on 08/29/2022 at 15:24 Approved by: Francine Rosas MD on 08/29/2022 at 15:33 Normal [facility] LIPASEon 08-29-2022 Lipase [Catalytic activity/Vol] 88.0 U/L Normal 73.0 - 393 [facility] Comment on above: Performed By: #### 2 18252 #### [place] [address] PROTHROMBIN TIME AND INRon 0 08-29-2022 INR Coag (PPP) [Relative time] 1.1 {INR} Normal 0.8 - 1.2 [facility] Comment on above: Result Comment: T HE HEMOSIL THROMBOPLASTIN REAGENT USED IN THE PROTHROMBIN TIME TEST INTERACTS WITH THE DRUG CUBICIN (DAPTOMYCIN) AND WILL RESULT IN FALSELY ELEVATED PT / INR RESULTS INR INTERPRETATION INR INDICATION PREVENTION AND TREATMENT OF THROMBOEMBOLISM ASSOCIATED WITH: 2.0 - 3.0 ATRIAL FIBRILLATION, BIOPROSTHETIC HEART VALVES, PULMONARY EMBOLISM, VENOUS THROMBOSIS, SYSTEMIC EMBOLISM POST MYOCARDIAL INFARCTION 2.5 - 3.5 MECHANICAL HEART VALVES Performed By: #### 2 71372 #### [place] [address] PROTHROMBIN TIME AND INR Normal [facility] Comment on above: Result Comment: PROT HROMBIN TIME AND INR Performed By: #### 2 47971 #### [facility],[address] [place] [address] PT-COUMADIN 13.2 sec Normal 9.3 - 14.1 [facility] Comment on above: Performed By: #### 2 20036 #### [facility],[address] [place] [address] SEDRATEon 08-29-2022 SEDRATE 53 mm/hr High 0 - 20 [facility] Comment on above: Performed By: #### 2 19743 #### [facility],[address] [place] [address] URINALYSISon 08-29-2022 Amorphous NONE Normal [facility] Comment on above: Performed By: #### 2 71128 #### [facility],[address] [place] [address] Bacteria 1+ Normal [facility] Comment on above: Performed By: #### 2 15378 #### [facility],[address] [place], [place] [address] Bilirubin Ql (U) Negative Normal NORMAL: NEGATIVE [facility] Comment on above: Performed By: #### 2 10318 #### [facility],[address] [place] [address] Casts NONE Normal [facility] Comment on above: Performed By: #### 2 86764 #### [facility],[address] [place], [place] [address] Clarity (U) clear Normal NORMAL: CLEAR [facility] Comment on above: Performed By: #### 2 05816 #### [facility],[address] [place], [place] [address] Color (U) p.yel Normal NORMAL: YELLOW [facility] Comment on above: Performed By: #### 2 89652 #### [facility],[address] [place] [address] Crystals LM Nom (Urine sed) NONE Normal [facility] Comment on above: Performed By: #### 2 90276 #### [facility],[address] [place] [address] 50015 Epi Cells NONE Normal [facility] Comment on above: Performed By: #### 2 81672 #### [facility],[address] [place] [address]107 Glucose Ql (U) NORM Normal NORMAL: NORMAL [facility] Comment on above: Performed By: #### 2 96916 #### [facility],[address] [place] [address]277 Hemoglobin Ql (U) 50 Abnormal NORMAL: NEGATIVE [facility] Comment on above: Performed By: #### 2 71251 #### [facility],[address] [place] [address] 52673 Ketone Negative Normal NORMAL: NEGATIVE [facility] Comment on above: Performed By: #### 2 89579 #### [facility],[address] [place] [address]47[address] Leukocytes Negative Normal NORMAL: NEGATIVE [facility] Comment on above: Performed By: #### 2 80957 #### [facility],[address] [place] [address] 88339 Mucous NONE Normal [facility] Comment on above: Performed By: #### 2 80893 #### [facility],[address] [place] [address] 22511 Nitrite Ql (U) Negative Normal NORMAL: NEGATIVE [facility] Comment on above: Performed By: #### 2 31960 #### [facility],[address] [place] [address] 26468 pH (U) 8 [pH] Normal NORMAL: 5.0-8.0 [facility] Comment on above: Performed By: #### 2 81718 #### [facility],[address] [place] [address] Protein Ql (U) Negative Normal NORMAL: NEGATIVE [facility] Comment on above: Performed By: #### 2 16521 #### [facility],[address] [place] [address] Rbc 5-10 Normal 0-3/hpf [facility] Comment on above: Performed By: #### 2 73783 #### [facility],[address] [place] [address] Sp [place] 1.010 Normal NORMAL: 1.010-1.030 [facility] Comment on above: Performed By: #### 2 80355 #### [facility],[address] [place] [address] Specimen Type Void Normal [facility] Comment on above: Performed By: #### 2 15487 #### [facility],[address] [place] [address] Urinalysis dipstick W Reflex Microscopic panel (U) SEE BELOW Normal [facility] Comment on above: Result Comment: MICR OSCOPIC Performed By: #### 2 70680 #### [facility],[address] [place] [address] Urobilinog NORM Normal NORMAL: NORMAL [facility] Comment on above: Performed By: #### 2 53332 #### [facility],[address] [place] [address] Wbc NONE Normal 0-5/hpf [facility] Comment on above: Performed By: #### 2 98691 #### [facility],[address] [place] [address] Yeast NONE Normal [facility] Comment on above: Performed By: #### 2 42139 #### [facility],[address] [place] [address] FOOT 2 VIEW RTon 08-24-2022 FOOT 2 VIEW RT [address] [address] Patient: THANH COLEMAN Phone#: : 1935 Age: 86 Gender: M Pt. Type: ER Account: [id number] Location: 052 Ordering: DR. LADAN REYES Exam Date: 08/24/2022/0:53 Family Phys: DR. BOO MARINA D.O. Charge Code: [id number] Physician: [place] Order #: [id number] Dose#: PROCEDURE: X-RAY FOOT RT 2 VIEWS COMPARISON: None. INDICATIONS: Pain FINDINGS: Study limited by patient inability to position for exam. BONES: Diffuse bony demineralization. Evidence of remote healed 5th metatarsal fracture. No acute osseous abnormality. Prominent posterior process of the talus. SOFT TISSUES: Negative. No visible soft tissue swelling. EFFUSION: None visible. OTHER: Negative. CONCLUSION: 1. No acute osseous abnormality Dictated by: Jewels Martinez MD on 08/24/2022 at 16:51 Approved by: Jewels Martinez MD on 08/24/2022 at 16:53 Normal [facility] TIBIA-FIBULA RTon 08-24-2022 TIBIA-FIBULA RT [address] [address] Patient: THANH COLEMAN Phone#: : [phone] Age: 86 Gender: M Pt. Type: ER Account: [id number] Location: 052 Ordering: DR. LADAN REYES Exam Date: 08/24/2022/0:49 Family Phys: DR. BOO MARINA D.O. Charge Code: [id number] Physician: [place] Order #: [id number] Dose#: PROCEDURE: X-RAY TIB FIB RT 2 VIEWS COMPARISON: None. INDICATIONS: Pain. FINDINGS: BONES: Normal. No significant arthropathy or acute abnormality. Prominent posterior process of the talus. SOFT TISSUES: Negative. No visible soft tissue swelling. EFFUSION: None visible. OTHER: Negative. CONCLUSION: 1. No acute osseous abnormality Dictated by: Jewels Martinez MD on 08/24/2022 at 16:46 Approved by: Jewels Martinez MD on 08/24/2022 at 16:48 Normal [facility] EMERGENCY REPORTon 3 EMERGENCY REPORT [facility] EMERGENCY ROOM REPORT NAME ACCOUNT SEX AGE ADMIT DISCHARGE PT MED. RECORD# NUMBER DATE DATE TYPE THANH COLEMAN [id number] M 86 08/08/22 2 [id number] ROOM: [facility] DATE OF : 1935 DICTATING PHYSICIAN: Mitra Walalce HISTORY OF PRESENT ILLNESS: The patient is an 86-year-old male with a history significant for high blood pressure, coronary artery disease status post stenting, high cholesterol, who presents for the inability to ambulate after about 1 week of worsening bilateral knee pain, left shoulder pain, and right wrist pain. The patient states that the pain has progressed to the point where he was unable to get out of his chair to go to bed today. He feels that the pain is slightly worse in his right knee compared to his left knee. He denies fevers, local swelling, trauma/falls, numbness, weakness, tingling, back pain, inability to urinate or change in bowel or bladder habits, or sick contacts. The patient has never had this happen to him before. He has not been having headaches or vision changes. REVIEW OF SYSTEMS: The patient denies other specific complaints. PHYSICAL EXAMINATION: VITAL SIGNS: Temperature 98.4, blood pressure 171/103, pulse 89, respirations 15, and saturation 95% on room air. GENERAL APPEARANCE: The patient is an elderly male in no distress. HEENT: Head is normocephalic and atraumatic. The patient has palpable cord without tenderness over the left temporal artery distribution. Eyes: Normal sclerae. Normal conjunctivae. Extraocular motions intact. Nose is normal. Mouth: Moist mucous membranes. NECK: No JVD. Trachea is midline. CARDIOVASCULAR: Irregular rhythm with normal rate and 2+ bilateral radial and DP pulse. RESPIRATORY: No increased work of breathing. No tachypnea. The patient has scattered wheezes with deep inspiration, but has no rhonchi, rales, or decreased breath sounds. ABDOMEN: Soft, nontender, and nondistended. MUSCULOSKELETAL: The patient has pain with palpation of the left shoulder, bilateral knees right greater than left, and with right wrist. There is no swelling at these joints. There is no erythema. The patient does have intact range of motion despite pain at shoulder, wrist, and left knee, but does not allow me to range the right knee. Distal strength at the feet is intact on neurologic examination with intact sensation to face, proximal and distal upper and lower extremities. NIHSS of 0 with the patient having no significant dysmetria on [id number] testing. The patient does have baseline tremor to right hand that is apparently unchanged. SKIN: No erythema, warmth, or rashes. DIAGNOSTIC DATA: EKG, interpreted by me, shows AV dual-paced rhythm at 61 beats per minute. There is no significant ST elevations or depressions. There appears to be a non-paced PVC present. The patient's blood work showed a very elevated ESR at 80 without leukocytosis, Page 1 of 2 THANH COLEMAN Emergency Room Report THANH COLEMAN : 1935 anemia, electrolyte disturbance, and his renal function was improved from last time. MEDICAL DECISION MAKING/EMERGENCY DEPARTMENT COURSE AND TREATMENT: This is an 86-year-old male who presents with polyarthropathy in mainly knees, left shoulder, and right wrist joints. The patient is afebrile, hypertensive, but not tachycardic. The patient does not appear acutely ill. He has been unable to ambulate due to this pain. There is no appreciable swelling or erythema to suggest septic joints, and I do not believe that he would have multiple septic joints. The only area of range of motion I am unable to test is his right knee because he does not want me to move it. I do not suspect clear vascular or neurologic cause. The patient does not have back pain or midline cervical tenderness to suggest a cause such as cauda equina or spinal epidural abscess. The patient will be treated for pain with Tylenol and low-dose of Toradol IV. He will be assessed for the above causes and also possible polymyalgia rheumatica with screening laboratories of CBC, BMP, and ESR. Reassessment/evaluation : The patient has persistent pain after Tylenol, Toradol, and will be given Roxicodone. PLAN/DISPOSITION: I suspect that the patient may indeed have polymyalgia rheumatic and steroids will be initiated in the ER. The patient still feels unable to ambulate, and will be admitted for this. Dictated By: Mitra Wallace, 08/08/22 02:20 JOB #: [id number] Transcribed By: am 08/08/22 08:00 Electronically signed by: Dr. Mitra Wallace, 08/18/22 19:28 Page 2 of 2 THANH COLEMAN Emergency Room Report Normal [facility] BMP with eGFRon 08-09-2022 AGE 86 years Normal [facility] Comment on above: Performed By: #### 2 65228 #### [facility],[address] [place] [address] 11091 Anion gap [Moles/Vol] 14 mmol/L Normal 10 - 20 [facility] Comment on above: Performed By: #### 2 54367 #### [facility],[address] [place] [address] 75643 BMP with eGFR Normal [facility] Comment on above: Result Comment: BASI C METABOLIC PANEL Performed By: #### 2 33384 #### [facility],[address] [place] [address] 73120 Calcium [Mass/Vol] 9.0 mg/dL Normal 8.5 - 10.1 [facility] Comment on above: Performed By: #### 2 18875 #### [facility],[address] [place] [address] 40893 Chloride [Moles/Vol] 103 mmol/L Normal 98 - 107 [facility] Comment on above: Performed By: #### 2 89870 #### [facility],[address] [place] [address] 99340 CO2 [Moles/Vol] 23.9 mmol/L Normal 21.0 - 32.0 [facility] Comment on above: Performed By: #### 2 02856 #### [facility],[address] [place] [address] 65675 Creatinine [Mass/Vol] 1.65 mg/dL High 0.70 - 1.30 [facility] Comment on above: Performed By: #### 2 45757 #### [facility],[address] [place] [address] 33084 eGFR 40 ML/MINUTE Low 60 - 999 [facility] Comment on above: Performed By: #### 2 34478 #### [facility],[address] [place] [address] 82241 eGFR(AA) 48 ML/MINUTE Low 60 - 999 [facility] Comment on above: Result Comment: ACCO RDING TO THE NATIONAL KIDNEY DISEASE EDUCATION PROGRAM(NKDE), A NORMAL eGFR IS A VALUE GREATER THAN OR EQUAL TO 60 ML/MIN/1.73 SQ METERS. CHRONIC KIDNEY DISEASE: <60mL/MIN/1.73 SQ METERS KIDNEY FAILURE: <15mL/MIN/1.73 SQ METERS THIS TEST SHOULD ONLY BE USED FOR PATIENTS 18 YEARS OF AGE AND OLDER. Performed By: #### 2 24402 #### [address] [address] Glucose [Mass/Vol] 90 mg/dL Normal 74 - 106 [facility] Comment on above: Performed By: #### 2 01122 #### [address] [address] Potassium [Moles/Vol] 4.0 mmol/L Normal 3.5 - 5.1 [facility] Comment on above: Performed By: #### 2 75868 #### [address] [address] Sodium [Moles/Vol] 137 mmol/L Normal 136 - 145 [facility] Comment on above: Performed By: #### 2 15597 #### [address] [address] Urea nitrogen [Mass/Vol] 51 mg/dL High 7 - 18 [facility] Comment on above: Performed By: #### 2 40150 #### [address] [address] CBC + DIFFon 04-21-2023 Baso # 0.10 x10EE3/UL Normal 0.00 - 0.10 [facility] Comment on above: Performed By: #### 2 77156 #### [facility],[address] [place] [address] 02536 Basophils/100 WBC (Bld) 0.6 % Normal 0.0 - 2.0 [facility] Comment on above: Performed By: #### 2 21486 #### [facility],[address] [place] [address] 81055 CBC + DIFF Normal [facility] Comment on above: Result Comment: CBC- COMPLETE BLOOD COUNT Performed By: #### 2 47443 #### [facility],[address] [place] [address] 39312 EO # 0.10 x10EE3/UL Normal 0.00 - 0.50 [facility] Comment on above: Performed By: #### 2 17090 #### [facility],[address] [place] [address] 14343 Eosinophils/100 WBC (Bld) 1.6 % Normal 0.0 - 7.0 [facility] Comment on above: Performed By: #### 2 39601 #### [facility],[address] [place] [address] 40800 Erythrocyte distribution width (RBC) [Ratio] 14.4 % Normal 12.0 - 15.6 [facility] Comment on above: Performed By: #### 2 45755 #### [facility],[address] [place] [address] 75924 Hematocrit (Bld) [Volume fraction] 39.9 % Low 40.0 - 52.0 [facility] Comment on above: Performed By: #### 2 49689 #### [facility],[address] [place] [address] 94574 Hemoglobin (Bld) [Mass/Vol] 13.5 g/dL Normal 13.0 - 17.5 [facility] Comment on above: Performed By: #### 2 35006 #### [facility],[address] [place] [address] 33378 Lymph # 2.00 x10EE3/UL Normal 0.80 - 2.80 [facility] Comment on above: Performed By: #### 2 48609 #### [facility],[address] [place] [address] 45226 Lymphocytes/100 WBC (Bld) 21.9 % Normal 20.0 - 45.0 [facility] Comment on above: Performed By: #### 2 07353 #### [facility],[address] [place] [address] 41833 MANUAL DIFF N/A Normal [facility] Comment on above: Performed By: #### 2 52490 #### [facility],[address] [place], [place] [address] MCH (RBC) [Entitic mass] 31 pg Normal 27 - 33 [facility] Comment on above: Performed By: #### 2 00105 #### [facility],[address] [place] [address] 99318 MCHC 34 X10 3 Normal 32 - 36 [facility] Comment on above: Performed By: #### 2 36223 #### [facility],[address] [place] [address] 36029 MCV (RBC) [Entitic vol] 93 fL Normal 81 - 98 [facility] Comment on above: Performed By: #### 2 84161 #### [facility],[address] [place] [address] 78461 Catahoula # 0.80 x10EE3/UL Normal 0.20 - 1.00 [facility] Comment on above: Performed By: #### 2 22195 #### [facility],[address] [place] [address] 86895 MONOS % 8.8 % Normal 0.0 - 10.0 [facility] Comment on above: Performed By: #### 2 84721 #### [facility],[address] [place] [address] 52984 Morphology Jose (Bld) [Interp] N/A Normal [facility] Comment on above: Performed By: #### 2 61880 #### [facility],[address] [place] [address] 37071 Neut # 6.00 x10EE3/UL Normal 1.50 - 7.10 [facility] Comment on above: Performed By: #### 2 19633 #### [facility],[address] [place] [address] 64864 Neutrophils/100 WBC (Bld) 67.1 % Normal 46.0 - 76.0 [facility] Comment on above: Performed By: #### 2 54975 #### [facility],[address] [place] [address] 85853 PLATELET 171 x10EE3/UL Normal 150 - 450 [facility] Comment on above: Performed By: #### 2 18460 #### [facility],[address] [place] [address] 32592 Platelet mean volume (Bld) [Entitic vol] 9.8 fL Normal 6.4 - 10.5 [facility] Comment on above: Result Comment: AUTO MATED DIFFERENTIAL Performed By: #### 2 26174 #### [facility],[address] [place] [address] 93152 RBC 4.30 x 10EE6/UL Low 4.50 - 6.00 [facility] Comment on above: Performed By: #### 2 92707 #### [facility],[address] [place] [address] 43660 WBC 8.9 x 10EE3/UL Normal 4.5 - 10.8 [facility] Comment on above: Performed By: #### 2 69354 #### [facility],[address] [place] [address] 94734 BMP with eGFRon 08-08-2022 AGE 86 years Normal [facility] Comment on above: Performed By: #### 2 38163 #### [facility],[address] [place] [address] 94097 Anion gap [Moles/Vol] 15 mmol/L Normal 10 - 20 [facility] Comment on above: Performed By: #### 2 11109 #### [facility],[address] [place] [address] 40385 BMP with eGFR Normal [facility] Comment on above: Result Comment: BASI C METABOLIC PANEL Performed By: #### 2 93550 #### [facility],[address] [place] [address] 08950 Calcium [Mass/Vol] 9.2 mg/dL Normal 8.5 - 10.1 [facility] Comment on above: Performed By: #### 2 87641 #### [facility],[address] [place] [address] 81587 Chloride [Moles/Vol] 106 mmol/L Normal 98 - 107 [facility] Comment on above: Performed By: #### 2 81700 #### [facility],[address] [place] [address] 61901 CO2 [Moles/Vol] 26.0 mmol/L Normal 21.0 - 32.0 [facility] Comment on above: Performed By: #### 2 40362 #### [facility],[address] [place] [address] 85165 Creatinine [Mass/Vol] 1.49 mg/dL High 0.70 - 1.30 [facility] Comment on above: Performed By: #### 2 47126 #### [facility],[address] [place] [address] 31217 eGFR 45 ML/MINUTE Low 60 - 999 [facility] Comment on above: Performed By: #### 2 97528 #### [facility],[address] [place] [address] 80144 eGFR(AA) 54 ML/MINUTE Low 60 - 999 [facility] Comment on above: Result Comment: ACCO RDING TO THE NATIONAL KIDNEY DISEASE EDUCATION PROGRAM(NKDE), A NORMAL eGFR IS A VALUE GREATER THAN OR EQUAL TO 60 ML/MIN/1.73 SQ METERS. CHRONIC KIDNEY DISEASE: <60mL/MIN/1.73 SQ METERS KIDNEY FAILURE: <15mL/MIN/1.73 SQ METERS THIS TEST SHOULD ONLY BE USED FOR PATIENTS 18 YEARS OF AGE AND OLDER. Performed By: #### 2 11271 #### [address] [address] Glucose [Mass/Vol] 92 mg/dL Normal 74 - 106 [facility] Comment on above: Performed By: #### 2 62174 #### [address] [address] Potassium [Moles/Vol] 4.2 mmol/L Normal 3.5 - 5.1 [facility] Comment on above: Performed By: #### 2 24802 #### [address] [address] Sodium [Moles/Vol] 143 mmol/L Normal 136 - 145 [facility] Comment on above: Performed By: #### 2 20753 #### [address] [address] Urea nitrogen [Mass/Vol] 34 mg/dL High 7 - 18 [facility] Comment on above: Performed By: #### 2 75318 #### [address] [address] CBC + DIFFon 08-08-2022 Baso # 0.10 x10EE3/UL Normal 0.00 - 0.10 [facility] Comment on above: Performed By: #### 2 63043 #### [address] [address] Basophils/100 WBC (Bld) 1.0 % Normal 0.0 - 2.0 [facility] Comment on above: Performed By: #### 2 30023 #### [place] [address],[place] [address] CBC + DIFF Normal [facility] Comment on above: Result Comment: CBC- COMPLETE BLOOD COUNT Performed By: #### 2 66480 #### [facility],[address] [place] [address] 02372 EO # 0.30 x10EE3/UL Normal 0.00 - 0.50 [facility] Comment on above: Performed By: #### 2 05319 #### [facility],[address] [place] [address] 43460 Eosinophils/100 WBC (Bld) 3.0 % Normal 0.0 - 7.0 [facility] Comment on above: Performed By: #### 2 31579 #### [facility],[address] [place] [address] 07022 Erythrocyte distribution width (RBC) [Ratio] 13.9 % Normal 12.0 - 15.6 [facility] Comment on above: Performed By: #### 2 91410 #### [facility],[address] [place] [address] 06111 Hematocrit (Bld) [Volume fraction] 45.6 % Normal 40.0 - 52.0 [facility] Comment on above: Performed By: #### 2 69168 #### [facility],[address] [place] [address] 69980 Hemoglobin (Bld) [Mass/Vol] 15.2 g/dL Normal 13.0 - 17.5 [facility] Comment on above: Performed By: #### 2 68910 #### [facility],[address] [place] [address] 20851 Lymph # 1.20 x10EE3/UL Normal 0.80 - 2.80 [facility] Comment on above: Performed By: #### 2 05375 #### [facility],[address] [place] [address] 73954 Lymphocytes/100 WBC (Bld) 13.6 % Low 20.0 - 45.0 [facility] Comment on above: Performed By: #### 2 46031 #### [facility],[address] [place] [address] 81021 MANUAL DIFF N/A Normal [facility] Comment on above: Performed By: #### 2 25268 #### [facility],[address] [place] [address] MCH (RBC) [Entitic mass] 31 pg Normal 27 - 33 [facility] Comment on above: Performed By: #### 2 51077 #### [facility],[address] [place] [address] MCHC 33 X10 3 Normal 32 - 36 [facility] Comment on above: Performed By: #### 2 57683 #### [facility],[address] [place] [address] MCV (RBC) [Entitic vol] 92 fL Normal 81 - 98 [facility] Comment on above: Performed By: #### 2 78006 #### [facility],[address] [place] [address] Catahoula # 0.90 x10EE3/UL Normal 0.20 - 1.00 [facility] Comment on above: Performed By: #### 2 37939 #### [facility],[address] [place] [address] MONOS % 10.9 % High 0.0 - 10.0 [facility] Comment on above: Performed By: #### 2 74720 #### [facility],[address] [place] [address] 27786 Morphology Jose (Bld) [Interp] N/A Normal [facility] Comment on above: Performed By: #### 2 70618 #### [facility],[address] [place] [address] Neut # 6.00 x10EE3/UL Normal 1.50 - 7.10 [facility] Comment on above: Performed By: #### 2 69860 #### [facility],[address] [place] [address] 06858 Neutrophils/100 WBC (Bld) 71.5 % Normal 46.0 - 76.0 [facility] Comment on above: Performed By: #### 2 73343 #### [facility],[address] [place], [place] [address] PLATELET 177 x10EE3/UL Normal 150 - 450 [facility] Comment on above: Performed By: #### 2 31362 #### [facility],[address] [place] [address] Platelet mean volume (Bld) [Entitic vol] 9.3 fL Normal 6.4 - 10.5 [facility] Comment on above: Result Comment: AUTO MATED DIFFERENTIAL Performed By: #### 2 69555 #### [place] [address] RBC 4.94 x 10EE6/UL Normal 4.50 - 6.00 [facility] Comment on above: Performed By: #### 2 17222 #### [facility],[address] [place], [place] [address] WBC 8.4 x 10EE3/UL Normal 4.5 - 10.8 [facility] Comment on above: Performed By: #### 2 46492 #### [facility],[address] [place], [place] [address] CORONAVIRUS PCR - [facility] 08-08-2022 SARS-CoV-2 (COVID-19) RNA LAURA+probe Ql (Unsp spec) Negative Normal NORMAL: NEGATIVE [facility] Comment on above: Performed By: #### 2 61752 #### [facility],[address] [place], [place] [address] SEND TO IC? NO Normal [facility] Comment on above: Result Comment: RESU LTS FAXED TO INFECTION CONTROL. SARS-CoV-2 THIS TEST IS BEING USED UNDER THE FDA EUA PROCEDURE. THIS ASSAY HAS BEEN VALIDATED IN THE [facility] FOR USE WITH NASOPHARYNGEAL SPECIMENS IN [facility]. INTERPRETIVE DATA LABORATORY TEST RESULTS SHOULD ALWAYS BE CONSIDERED IN THE CONTEXT OF CLINICAL OBSERVATIONS AND EPIDEMIOLOGICAL DATA IN MAKING FINAL DIAGNOSIS AND PATIENT MANAGEMENT DECISIONS. PATIENT MANAGEMENT SHOULD FOLLOW CURRENT CDC GUIDELINES. A POSITIVE TEST RESULT FOR COVID-19 INDICATES THAT RNA FROM SARS-CoV-2 WAS DETECTED, AND THE PATIENT IS INFECTED WITH THE VIRUS AND PRESUMED TO BE CONTAGIOUS. A NEGATIVE TEST RESULT FOR THIS TEST MEANS THAT SARS-CoV-2 RNA WAS NOT PRESENT IN THE SPECIMEN ABOVE THE LIMIT OF DETECTION. HOWEVER, A NEGATVIE RESULT DOES NOT RULE OUT COVID-19 AND SHOULD NOT BE USED THE SOLE BASIS FOR TREATMENT OR PATIENT MANAGEMENT DECISIONS. A NEGATIVE RESULT DOES NOT EXCLUDE THE POSSIBILITY OF COVID-19. WHEN DIAGNOSTIC TESTING IS NEGATIVE, THE POSSIBLILTY OF A FALSE NEGATIVE RESULT SHOULD BE CONSIDERED IN THE CONTEXT OF A PATIENT'S RECENT EXPOSURES AND THE PRESENCE OF CLINICAL SIGNS AND SYMPTOMS CONSISTENT WITH COVID-19. THE POSSIBILITY OF A FALSE NEGATIVE RESULT SHOULD ESPECIALLY BE CONSIDERED IF THE PATIENT'S RECENT EXPOSURES OR CLINICAL PRESENTATION INDICATE THAT COVID-19 IS LIKELY, AND DIAGNOSTIC TESTS FOR OTHER CAUSES OF ILLNESS (e.g., OTHER RESPIRATORY ILLNESS) ARE NEGATIVE. IF COVID-19 IS STILL SUSPECTED BASED ON EXPOSURE HISTORY TOGETHER WITH OTHER CLINICAL FINDINGS, RE-TESTED SHOULD BE CONSIDERED BY HEALTHCARE PROVIDERS IN CONSULTATION WITH PUBLIC HEALTH AUTHORITIES. Performed By: #### 2 68215 #### [place] [address] KNEE 2 VIEWS RTon 08-08-2022 KNEE 2 VIEWS [place] [address] Patient: THANH COLEMAN Phone#: : [phone] Age: 86 Gender: M Pt. Type: ER Account: [id number] Location: [facility] Ordering: DR. MITRA WALLACE Exam Date: 08/08/2022/1:22 Family Phys: DR. BOO MARINA D.O. Charge Code: [id number] Physician: [place] Order #: [id number] Dose#: PROCEDURE: X-RAY KNEE RT 2 VIEWS COMPARISON: None. INDICATIONS: Pain. FINDINGS: BONES: Mild degenerative changes of knee are present. There is narrowing of the medial compartment. SOFT TISSUES: Negative. No visible soft tissue swelling. EFFUSION: Small suprapatellar effusion is present. OTHER: Negative. CONCLUSION: No acute disease. Dictated by: Francine Rosas MD on 08/08/2022 at 7:05 Approved by: Francine Rosas MD on 08/08/2022 at 7:06 Normal [facility] SEDRATEon 08-08-2022 SEDRATE 80 mm/hr High 0 - 20 [facility] Comment on above: Performed By: #### 2 94139 #### [facility],[address] [place] [address] [place] 07-23-2022 [place] Telephone (TRACIE) THANH COLEMAN ([id number]) 1935 M Date Time Provider Department 07/23/22 ZORAIDA HODGE During your visit today, we recorded the following information about you: Zoraida Hodge APRN.CNP 07/23/2022 9:13 PM Signed Please let Thanh know that we received his lab results. His kidney function is stable. His vitamin D level is low. I'm sending in a daily vitamin D3 supplement for him to begin taking. His lipid/cholesterol levels have improved. No other concerns. The following approved medication requests have been transmitted electronically. Requested Prescriptions Signed Prescriptions Disp Refills Cholecalciferol, Vitamin D3, 50 mcg (2,000 unit) cap 30 capsule 3 Sig: Take 1 capsule by mouth once daily. Authorizing Provider: ZORAIDA HODGE APRN.CNP Susan Detwiler-Green LPN 07/24/2022 9:40 AM Signed Attempted to notify Cell phone off. Celi Anshul CRISOSTOMO 07/24/2022 4:08 PM Signed Attempted to reach pt, recording states 'the Jesscia customer is not avail at this time, try again later.' Celi Landers ANDRESSA Allergies As of Date: 07/23/2022 Noted Allergy Reaction DUST 05/29/2017 14 - Other: See Comments GRASS POLLEN 05/29/2017 14 - Other: See Comments MOLD SPORES 05/29/2017 14 - Other: See Comments Date Reviewed: 07/08/2022 Reviewed by: Ekta Mandujano APRN.HEALTH INFORMATION SPECIALIST - Fully Assessed Reason for Visit: Results [95] Order(s):Cholecalcifero l, Vitamin D3, 50 mcg (2,000 unit) capTake 1 capsule by mouth once daily.Disp: 30 capsuleRfl: 3 Prescriptions as of 07/24/2022 - Cholecalciferol, Vitamin D3, 50 mcg (2,000 unit) cap Take 1 capsule by mouth once daily. - lisinopril (ZESTRIL) 20 mg tablet Take 1 tablet by mouth once daily. - ezetimibe (ZETIA) 10 mg tablet Take 1 tablet by mouth once daily. - atorvastatin (LIPITOR) 40 mg tablet Take 1 tablet by mouth once daily. - metoprolol tartrate, short acting, (LOPRESSOR) 100 mg tablet Take 1 tablet by mouth twice daily. - potassium chloride (KLOR-CON 10) 10 mEq tablet Take 1 tablet by mouth once daily. - sertraline (ZOLOFT) 50 mg tablet Take 1 tablet by mouth daily with dinner. - furosemide (LASIX) 20 mg tablet TAKE 1 TABLET BY MOUTH DAILY AFTER BREAKFAST *FOR SWELLING - Fenofibrate (LOFIBRA) 54 mg tablet Take 1 tablet by mouth once daily. - apixaban (ELIQUIS) 2.5 mg tab(s) Take 1 tablet by mouth twice daily. - erythromycin (ROMYCIN) 5 mg/gram (0.5 %) ophthalmic ointment In both eyes and on incisions four times a day X 1 wk then twice a day x 1 wk - erythromycin (ROMYCIN) 5 mg/gram (0.5 %) ophthalmic ointment Apply 1/2 inch ribbon per application to incision and in eye four times a day X 1 wk then twice a day x 1 wk - ketoconazole (NIZORAL) 2 % cream Apply to affected area twice daily. To the ear for rash - ketoconazole (NIZORAL) 2 % shampoo Apply to affected area once daily as needed for itching/rash. - triamcinolone (KENALOG) 0.1 % lotion Apply to affected area three times daily. - wqebsyey-jijvpeihu-oros icidin (NEOMYCIN) 1.75 mg-10,000 unit-0.025mg/mL drop Apply 3 drops to each ear twice daily. - ataaoclk-jspjbtykj-acha ocortisone (CORTISPORIN) 3.5-10,000-1 mg/mL-unit/mL-% otic suspension Use 4 Drops in the ears four times daily. - warfarin (COUMADIN) 4 mg tablet Take 1 tablet by mouth once daily. - nitroglycerin sublingual (NITROQUICK) 0.4 mg SL tablet Dissolve 1 tablet under the tongue every 5 minutes as needed. - albuterol HFA (VENTOLIN HFA) 90 mcg/actuation inhaler Inhale 2 Puffs as instructed every 4 hours as needed for wheezing/shortness of breath. - fluticasone (FLONASE) 50 mcg/actuation nasal spray Use 1 [place] in each nostril daily at bedtime. - aspirin, enteric coated (ASPIRIN, ENTERIC COATED) 81 mg EC tablet Take 81 mg by mouth once daily. - senna (SENOKOT) 8.6 mg tab Take 8.6 mg by mouth once daily as needed. - Magnesium 250 mg tab Take 250 mg by mouth once daily. 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 Normal [facility] 25(OH)D3 SerPl-mCncon 2022 25-hydroxyvitamin D3 [Mass/Vol] 26.8 ng/mL Low 31.0-80.0 [facility] Comment on above: Order Comment: Speci men Type: BLOOD SPECIMENOrdering Facility: [facility] Address: [address] [place] [address] Result Comment: Clas sification of 25 OH Vitamin D status: Deficiency/Insufficiency: < or = 30 ng/ml. Sufficiency/Optimal Levels: 31-80 ng/mL Toxicity: > 100 ng/mL. Test performed by chemiluminescent immunoassay. Performed By: #### 1 989-3 ####[facility] [id number] [place] [address] [place] CBC W Auto Differential pane l (Bld)on 07-22-2022 Basophils (Bld) [#/Vol] 0.07 10*3/uL Normal <0.11 [facility] Comment on above: Order Comment: Speci men Type: BLOOD SPECIMENOrdering Facility: [facility] Address: [address] [address] Performed By: #### 5 7021-8 ####[facility] [id number] [address] [place] Basophils/100 WBC (Bld) 0.9 % Normal [facility] Comment on above: Order Comment: Speci men Type: BLOOD SPECIMENOrdering Facility: [facility] Address: [address] [address] Performed By: #### 5 7021-8 ####[facility] LABCLIA [id number] [place] [address] [place] Differential cell count method Nom (Bld) Auto Normal [facility] Comment on above: Order Comment: Speci men Type: BLOOD SPECIMENOrdering Facility: [facility] Address: [address] [place], [place] [address] Performed By: #### 5 7021-8 ####[facility] LABCLIA [id number] [place] [address] [place] Eosinophils (Bld) [#/Vol] 0.27 10*3/uL Normal <0.46 [facility] Comment on above: Order Comment: Speci men Type: BLOOD SPECIMENOrdering Facility: [facility] Address: [address] [place], [place] [address] Performed By: #### 5 7021-8 ####[facility] LABCLIA [id number] [place] [address] [place] Eosinophils/100 WBC (Bld) 3.4 % Normal [facility] Comment on above: Order Comment: Speci men Type: BLOOD SPECIMENOrdering Facility: [facility] Address: [address] [place], [place] [address] Performed By: #### 5 7021-8 ####[facility] LABCLIA [id number] [place] [address] [place] Erythrocyte distribution width (RBC) [Ratio] 13.8 % Normal 11.5-15.0 [facility] Comment on above: Order Comment: Speci men Type: BLOOD SPECIMENOrdering Facility: [facility] Address: [address] [place], [place] [address] Performed By: #### 5 7021-8 ####[facility]CLIA [id number] [place] [address] [place] Hematocrit (Bld) [Volume fraction] 47.8 % Normal 39.0-51.0 [facility] Comment on above: Order Comment: Speci men Type: BLOOD SPECIMENOrdering Facility: [facility] Address: [address] [place], [place] [address] Performed By: #### 5 7021-8 ####[facility] LABCLIA [id number] [place] [address] [place] Hemoglobin (Bld) [Mass/Vol] 15.3 g/dL Normal 13.0-17.0 [facility] Comment on above: Order Comment: Speci men Type: BLOOD SPECIMENOrdering Facility: [facility] Address: [address] [place] [address] Performed By: #### 5 7021-8 ####[facility] LABCLIA [id number] [place] [address] [place] Immature granulocytes (Bld) [#/Vol] 0.04 10*3/uL Normal <0.10 [facility] Comment on above: Order Comment: Speci men Type: BLOOD SPECIMENOrdering Facility: [facility] Address: [address] [place], [place] [address] Performed By: #### 5 7021-8 ####[facility] LABCLIA [id number] [place] [address] [place] Immature granulocytes/100 WBC (Bld) 0.5 % Normal [facility] Comment on above: Order Comment: Speci men Type: BLOOD SPECIMENOrdering Facility: [facility] Address: [address] [place], [place] [address] Performed By: #### 5 7021-8 ####[facility]CLIA [id number] [place] [address] [place] Lymphocytes (Bld) [#/Vol] 1.61 10*3/uL Normal 1.00-4.00 [facility] Comment on above: Order Comment: Speci men Type: BLOOD SPECIMENOrdering Facility: [facility] Address: [address] Performed By: #### 5 7021-8 ####[facility] LABIA [id number] [address] [place] [facility] Lymphocytes/100 WBC (Bld) 20.1 % Normal [facility] Comment on above: Order Comment: Speci men Type: BLOOD SPECIMENOrdering Facility: [facility] Address: [address] Performed By: #### 5 7021-8 ####[facility] LABIA [id number] [address] [place] MCH (RBC) [Entitic mass] 30.6 pg Normal 26.0-34.0 [facility] Comment on above: Order Comment: Speci men Type: BLOOD SPECIMENOrdering Facility: [facility] Address: [address] [place], [place] [address] Performed By: #### 5 7021-8 ####[facility] LABIA [id number] [address] [place] MCHC (RBC) [Mass/Vol] 32.0 g/dL Normal 30.5-36.0 [facility] Comment on above: Order Comment: Speci men Type: BLOOD SPECIMENOrdering Facility: [facility] Address: [address] Performed By: #### 5 7021-8 ####[facility] LABIA [id number] [address] [place] MCV (RBC) [Entitic vol] 95.6 fL Normal 80.0-100.0 [facility] Comment on above: Order Comment: Speci men Type: BLOOD SPECIMENOrdering Facility: [facility] Address: [address] [place], [place] [address] Performed By: #### 5 7021-8 ####[facility] LABIA [id number] [place] [address] [place] Monocytes (Bld) [#/Vol] 0.94 10*3/uL High <0.87 [facility] Comment on above: Order Comment: Speci men Type: BLOOD SPECIMENOrdering Facility: [facility] Address: [address] [place] [address] Performed By: #### 5 7021-8 ####[facility]CLIA [id number] [place] [address] [place] Monocytes/100 WBC (Bld) 11.8 % Normal [facility] Comment on above: Order Comment: Speci men Type: BLOOD SPECIMENOrdering Facility: [facility] Address: [address] [place] [address] Performed By: #### 5 7021-8 ####[facility]CLIA [id number] [place] [address] [place] Neutrophils (Bld) [#/Vol] 5.07 10*3/uL Normal 1.45-7.50 [facility] Comment on above: Order Comment: Speci men Type: BLOOD SPECIMENOrdering Facility: [facility] Address: [address] [place], [place] [address] Performed By: #### 5 7021-8 ####[facility] LABCLIA [id number] [place] [address] [place] Neutrophils/100 WBC (Bld) 63.3 % Normal [facility] Comment on above: Order Comment: Speci men Type: BLOOD SPECIMENOrdering Facility: [facility] Address: [address] [place], [place] [address] Performed By: #### 5 7021-8 ####[facility]CLIA [id number] [place] [address] [place] Nucleated RBC (Bld) [#/Vol] 10*3/uL Normal <0.01 [facility] Comment on above: Order Comment: Speci men Type: BLOOD SPECIMENOrdering Facility: [facility] Address: [address] Performed By: #### 5 7021-8 ####[facility] [id number] [place] [address] [place] Nucleated RBC/100 WBC (Bld) [Ratio] 0.0 /100 WBC Normal [facility] Comment on above: Order Comment: Speci men Type: BLOOD SPECIMENOrdering Facility: [facility] Address: [address] Performed By: #### 5 7021-8 ####[facility] [id number] [place] [address] [place] Platelet mean volume (Bld) [Entitic vol] 12.4 fL Normal 9.0-12.7 [facility] Comment on above: Order Comment: Speci men Type: BLOOD SPECIMENOrdering Facility: [facility] Address: [address] [place], [place] [address] Performed By: #### 5 7021-8 ####[facility] LABIA [id number] [place] [address] [place] Platelets (Bld) [#/Vol] 144 10*3/uL Low 150-400 [facility] Comment on above: Order Comment: Speci men Type: BLOOD SPECIMENOrdering Facility: [facility] Address: [address] Performed By: #### 5 7021-8 ####[facility] [id number] [place] [address] [place] RBC (Bld) [#/Vol] 5.00 10*6/uL Normal 4.20-6.00 [facility] Comment on above: Order Comment: Speci men Type: BLOOD SPECIMENOrdering Facility: [facility] Address: [address] [place], [place] [address] Performed By: #### 5 7021-8 ####[facility] LABCLIA [id number] [place] [address] [place] WBC (Bld) [#/Vol] 8.00 10*3/uL Normal 3.70-11.00 [facility] Comment on above: Order Comment: Speci men Type: BLOOD SPECIMENOrdering Facility: [facility] Address: [address] [address] Performed By: #### 5 7021-8 ####[facility] LABCLIA [id number] [place] [address] [facility] Comprehensive metabolic 2000 panelon 07-22-2022 Albumin [Mass/Vol] 4.2 g/dL Normal 3.9-4.9 [facility] Comment on above: Order Comment: Speci men Type: BLOOD SPECIMENOrdering Facility: [facility] Address: [address] [place] [address] Performed By: #### 2 4331-1, 77253-2 ####[facility] LABCLIA [id number] [place] [address] [place] ALP [Catalytic activity/Vol] 60 U/L Normal 38-113 [facility] Comment on above: Order Comment: Speci men Type: BLOOD SPECIMENOrdering Facility: [facility] Address: [address] Performed By: #### 2 4331-1, 47069-7 ####[facility] LABCLIA [id number] [address] [place] ALT [Catalytic activity/Vol] 13 U/L Normal 10-54 [facility] Comment on above: Order Comment: Speci men Type: BLOOD SPECIMENOrdering Facility: [facility] Address: [address] Performed By: #### 2 4331-1, 65997-9 ####[facility] LABCLIA [id number] [place] [address] [place] Anion gap [Moles/Vol] 12 mmol/L Normal 9-18 [facility] Comment on above: Order Comment: Speci men Type: BLOOD SPECIMENOrdering Facility: [facility] Address: [address] [place] [address] Performed By: #### 2 4331-1, 50397-4 ####[facility] LABCLIA [id number] [place] [address] [place] AST [Catalytic activity/Vol] 18 U/L Normal 14-40 [facility] Comment on above: Order Comment: Speci men Type: BLOOD SPECIMENOrdering Facility: [facility] Address: [address] [place] [address] Performed By: #### 2 4331-1, 42543-3 ####[facility] LABCLIA [id number] [place] [address] [place] Bilirubin [Mass/Vol] 0.6 mg/dL Normal 0.2-1.3 [facility] Comment on above: Order Comment: Speci men Type: BLOOD SPECIMENOrdering Facility: [facility] Address: [address] [place], [place] [address] Performed By: #### 2 4331-1, 39651-1 ####[facility]CLIA [id number] [place] [address] [place] Calcium [Mass/Vol] 9.8 mg/dL Normal 8.5-10.2 [facility] Comment on above: Order Comment: Speci men Type: BLOOD SPECIMENOrdering Facility: [facility] Address: [address] [place], [place] [address] Performed By: #### 2 4331-1, 15373-8 ####[facility]CLIA [id number] [place] [address] [place] Chloride [Moles/Vol] 103 mmol/L Normal 97-105 [facility] Comment on above: Order Comment: Speci men Type: BLOOD SPECIMENOrdering Facility: [facility] Address: [address] [address] Performed By: #### 2 4331-1, 12891-5 ####[facility] LABCLIA [id number] [place] [address] [place] CO2 [Moles/Vol] 27 mmol/L Normal 22-30 [facility] Comment on above: Order Comment: Speci men Type: BLOOD SPECIMENOrdering Facility: [facility] Address: [address] [address] Performed By: #### 2 4331-, ####[facility] LABCLIA [id number] [address] [place] [facility] Creatinine [Mass/Vol] 1.59 mg/dL High 0.73-1.22 [facility] Comment on above: Order Comment: Speci men Type: BLOOD SPECIMENOrdering Facility: [facility] Address: [address] [address] Performed By: #### 2 4331-, 67312-5 ####[facility] LABCLIA [id number] [address] ESTIMATED GLOMERULAR FILTRATION RATE 42 mL/min/1.73m??? Low >=60 [facility] Comment on above: Order Comment: Speci men Type: BLOOD SPECIMENOrdering Facility: [facility] Address: [address] [place] [address] Result Comment: Rosalba mated Glomerular Filtration Rate (eGFR) is calculated using the 2020 CKD-EPI creatinine equation. This equation utilizes serum creatinine, sex, and age as parameters. The creatinine assay has traceable calibration to isotope dilution-mass spectrometry. Refer to KDIGO guidelines for clinical interpretation. In patients with unstable renal function, e.g. those with acute kidney injury, the eGFR may not accurately reflect actual GFR. Performed By: #### 2 4331-1, 38234-5 ####[facility]CLIA [id number] [place] [address] [place] Glucose [Mass/Vol] 81 mg/dL Normal 74-99 [facility] Comment on above: Order Comment: Speci men Type: BLOOD SPECIMENOrdering Facility: [facility] Address: [address] [place] [address] Result Comment: The [place] Diabetes Association (ADA) provides guidance for cutoff values for fasting glucose and random glucose. The ADA defines fasting as no caloric intake for at least 8 hours. Fasting plasma glucose results between 100 to 125 mg/dL indicate increased risk for diabetes (prediabetes). Fasting plasma glucose results greater than or equal to 126 mg/dL meet the criteria for diagnosis of diabetes. In the absence of unequivocal hyperglycemia, results should be confirmed by repeat testing. In a patient with classic symptoms of hyperglycemia or hyperglycemic crisis, random plasma glucose results greater than or equal to 200 mg/dL meet the criteria for diagnosis of diabetes. Reference: Standards of Medical Care in Diabetes 2016, [place] Diabetes Association. Diabetes Care. 2016.39(Suppl 1). Performed By: #### 2 4331-1, 39046-1 ####[facility] LABCLIA [id number] [place] [address] [place] Potassium [Moles/Vol] 4.7 mmol/L Normal 3.7-5.1 [facility] Comment on above: Order Comment: Speci men Type: BLOOD SPECIMENOrdering Facility: [facility] Address: [address] [place], [place] [address] Performed By: #### 2 4331-, 04024-1 ####[facility]CLIA [id number] [place] [address] [place] Protein [Mass/Vol] 7.5 g/dL Normal 6.3-8.0 [facility] Comment on above: Order Comment: Speci men Type: BLOOD SPECIMENOrdering Facility: [facility] Address: [address] [place] [address] Performed By: #### 2 4331-, ####[facility] LABIA [id number] [place] [address] [place] Sodium [Moles/Vol] 142 mmol/L Normal 136-144 [facility] Comment on above: Order Comment: Speci men Type: BLOOD SPECIMENOrdering Facility: [facility] Address: [address] [place] [address] Performed By: #### 2 4331-1, 42097-3 ####[facility] LABIA [id number] [place] [address] [place] Urea nitrogen [Mass/Vol] 29 mg/dL High 9-24 [facility] Comment on above: Order Comment: Speci men Type: BLOOD SPECIMENOrdering Facility: [facility] Address: [address] [place] [address] Performed By: #### 2 4331-1, 27504-3 ####[facility] [id number] [place] [address] [place] HbA1c (Bld)on 07-22-2022 Average glucose Estimated from glycated hemoglobin (Bld) [Mass/Vol] 111 mg/dL Normal [facility] Comment on above: Order Comment: Speci men Type: BLOOD SPECIMENOrdering Facility: [facility] Address: [address] [place] [address] Result Comment: eAG: (Estimated average glucose) is a calculated value from HgbA1c and is payable representative of the average blood glucose level in the last 2-3 month period. Performed By: #### 5 5454-3 ####[facility] [id number] [place] [address] [place] HbA1c (Bld) [Mass fraction] 5.5 % Normal 4.3-5.6 [facility] Comment on above: Order Comment: Speci men Type: BLOOD SPECIMENOrdering Facility: [facility] Address: [address] [place] [address] Result Comment: [place] Diabetes Association guidelines indicate that patients with HgbA1c in the range 5.7-6.4% are at increased risk for development of diabetes, and intervention by lifestyle modification may be beneficial. HgbA1c greater or equal to 6.5% is considered diagnostic of diabetes. Performed By: #### 5 5454-3 ####[facility] LABCLIA [id number] [address] [place] Lipid 1996 panelon 3 Cholesterol [Mass/Vol] 117 mg/dL Normal <200 [facility] Comment on above: Order Comment: Fariba vivar Type: BLOOD SPECIMENOrdering Facility: [facility] Address: [address] [place] [address] Result Comment: <200 mg/dL, Desirable 200-239 mg/dL, Borderline high >239 mg/dL, High Performed By: #### 2 4331-1, 08874-0 ####[facility]CLIA [id number] [address] Cholesterol in HDL [Mass/Vol] 39 mg/dL Low >39 [facility] Comment on above: Order Comment: Fariba vivar Type: BLOOD SPECIMENOrdering Facility: [facility] Address: [address] Result Comment: 40-5 9 mg/dL, Acceptable >59 mg/dL, High: Negative risk factor for coronary heart disease <40 mg/dL, Low: Positive risk factor for coronary heart disease Performed By: #### 2 4331-1, 82420-1 ####[facility]CL[facility] [id number] [address] Cholesterol in LDL [Mass/Vol] 50 mg/dL Normal <100 [facility] Comment on above: Order Comment: Fariba vivar Type: BLOOD SPECIMENOrdering Facility: [facility] Address: [address] Result Comment: <100 mg/dL, Optimal 100-129 mg/dL, Near optimal/above optimal 130-159 mg/dL, Borderline high 160-189 mg/dL, High >189 mg/dL, Very high Secondary prevention optimal LDL Cholesterol levels are recommended to be < 70 mg/dL Performed By: #### 2 433-, ####[facility] LABCLIA [id number] [address] [place] Cholesterol in LDL/Cholesterol in HDL [Mass ratio] 1.28 {ratio} Normal <2.54 [facility] Comment on above: Order Comment: Speci men Type: BLOOD SPECIMENOrdering Facility: [facility] Address: [address] [place] [address] Result Comment: Refe rence: 1. National Cholesterol Education Program ATP III Guideline At-A-Glance Quick Desk Reference: National Heart, Lung, and Blood [place]. National Institutes of Health. 2001: NIH Publication No. 01-3305. 2. An International Atherosclerosis Society position paper: global recommendations for the management of dyslipidemia: executive summary, Atherosclerosis. 2014: 232(2):410-413. Performed By: #### 2 433-, ####[facility] LABCLIA [id number] [place] [address] [place] Cholesterol in VLDL [Mass/Vol] 28 mg/dL Normal <30 [facility] Comment on above: Order Comment: Speci men Type: BLOOD SPECIMENOrdering Facility: [facility] Address: [address] [place] [address] Performed By: #### 2 4331-, ####[facility] LABIA [id number] [place] [address] [place] Cholesterol non HDL [Mass/Vol] 78 mg/dL Normal <130 [facility] Comment on above: Order Comment: Speci men Type: BLOOD SPECIMENOrdering Facility: [facility] Address: [address] [place] [address] Result Comment: <130 mg/dL, Optimal 130-159 mg/dL, Near optimal/above optimal 160-189 mg/dL, Borderline high 190-219 mg/dL, High >219 mg/dL, Very high Secondary prevention optimal non HDL Cholesterol levels are recommended to be <100 mg/dL Performed By: #### 2 4331-1, 86053-5 ####[facility] LABCLIA [id number] [place] [address] [place] Cholesterol.total/C holesterol in HDL [Mass ratio] 3.00 {ratio} Normal <5.10 [facility] Comment on above: Order Comment: Speci men Type: BLOOD SPECIMENOrdering Facility: [facility] Address: [address] [address] Performed By: #### 2 4331-1, 31412-2 ####[facility] LABCLIA [id number] [place] [address] [place] FASTING TIME 12 hrs Normal [facility] Comment on above: Order Comment: Speci men Type: BLOOD SPECIMENOrdering Facility: [facility] Address: [address] [address] Performed By: #### 2 4331-1, ####[facility] LABCLIA [id number] [address] [place] Triglyceride [Mass/Vol] 139 mg/dL Normal <150 [facility] Comment on above: Order Comment: Speci men Type: BLOOD SPECIMENOrdering Facility: [facility] Address: [address] [place] [address] Result Comment: <150 mg/dL, Normal 150-199 mg/dL, Borderline high 200-499 mg/dL, High >499 mg/dL, Very high Performed By: #### 2 4331-1, 79312-5 ####[facility] LABCLIA [id number] [place] [address] [place] PSA/PROSTSPECAG SCRNon 07-22 Prostate specific Ag [Mass/Vol] 1.03 ng/mL Normal <2.60 [facility] Comment on above: Order Comment: Speci men Type: BLOOD SPECIMENOrdering Facility: [facility] Address: [address] [place] [address] Result Comment: Raúl l PSA test methodology used is the Electrochemiluminescence Immunoassay by [employer]. Total PSA values by differing methodologies cannot be interchanged. Performed By: #### P SAS1 ####[facility] LABCLIA [id number] [id number] [id number] [place] CNCOon 07-17-2022 CNCO Letter Text Normal [facility] CNOVon 07-08-2022 CNOV Office Visit (FAMPWS ) VIRGINIATHANH ([id number]) 1935 M Date Time Provider Department 07/08/22 1:20 PM EKTA MANDUJANO During your visit today, we recorded the following information about you: Pulse Respiration Blood pressure Weight 80/minute 14/minute 120/68 94.2 kg Ekta Mandujano APRN.HEALTH INFORMATION SPECIALIST 07/08/2022 2:58 PM Signed Chief Complaint Patient presents with: 3 month f/up HPI Thanh Nakia Coleman is a 86 year old male who presents here today for Above Complaints.. Thanh is an established patient of Dr. Salas DO. He is a new patient to me today. Concerns today.... HTN -- Metorpolol 100 mg BID and lisinopril 20 mg daily. He states compliant with current blood pressure medication(s). He does check BP at home, normally on Tuesdays and Fridays. Average home readings: 120s/60s. He denies chest pain, shortness of breath, palpitations, dizziness, leg edema, headaches, or vision changes. Last 14 Encounter BP Readings: Date: BP: 07/08/2022 120/68 04/08/2022 110/70 02/27/2022 156/89 02/20/2022 141/74 01/07/2022 100/60 10/08/2021 90/60 09/28/2021 102/68 07/04/2021 100/60 06/21/2021 122/76 06/15/2021 124/60 04/23/2021 114/60 12/29/2020 90/60 10/30/2020 110/60 10/19/2020 100/66 Mood--- Zoloft 50 mg daily. Stable and well controlled on this regimen. ADLs-- Lives alone in his apartment. Has cleaning company clean apartment once per week. Uses [facility] for medicaiton management. No recent falls. Hygiene and cooking is done independently on his own. Reports minimal support system as he is not in contact with his children much anymore even thought they live nearby. HLD -- Lipitor 40 mg daily, zetia 10 mg daily, and fenofibrate 54 mg daily. Stable. No symptoms. Willing to recheck with blood work. Hx of Afib -- Well controlled, on eliquis routinely. 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 Past medical history, appointments, medications, allergies reviewed. Previous Medical History PAST MEDICAL HISTORY Diagnosis Date Abnormal cholesterol test Anticoagulant long-term use Aortic aneurysm ([facility]) s/p repair AAA Arteriosclerosis of coronary artery 12/23/2019 pacemaker, hyperlipidemia, hyperlipidemia At risk for stroke Atrial flutter (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) 12/2015 COPD (chronic obstructive pulmonary disease) (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 (HCC) 07/02/2021 Hypertriglyceridemia Low HDL (under 40) Neuropathy Palpitations 12/23/2019 Permanent atrial fibrillation (HCC) 08/10/2015 Presence of cardiac pacemaker 08/10/2015 Presence of drug coated stent in left circumflex coronary artery 08/10/2015 Sick sinus syndrome (HCC) 08/10/2015 Stage 3b chronic kidney disease (HCC) 12/21/2015 TB (pulmonary tuberculosis) Thrombocytopenia (HCC) Previous Surgical History PAST SURGICAL HISTORY Procedure Laterality Date ABD AORTIC ANEURYSM REPAIR CORONARY STENT EA VESSEL 3-2009 x 2, drug eluting ILIAC SLEEPING BAG FILLER W/WO STENT PACEMAKER DUAL CHAMBER TIER 0 4-2012 PAST SURGICAL HISTORY OF resection lobe of lung,,AAA Family History FAMILY HISTORY Problem Relation Age of Onset No Ocular Disease Mother other (TB) Mother Stroke Father No Ocular Disease Father Cancer Brother Kidney Disease Sister Patient Allergies ALLERGIES Allergen Reactions Dust Other: See Comments Grass Pollen Other: See Comments Mold Spores Other: See Comments Current Medications Current Outpatient Medications on File Prior to Visit Medication Sig Fenofibrate (LOFIBRA) 54 mg tablet Take 1 tablet by mouth once daily. furosemide (LASIX) 20 mg tablet TAKE 1 TABLET BY MOUTH DAILY AFTER BREAKFAST *FOR SWELLING lisinopril (ZESTRIL, PRINIVIL) 20 mg tablet Take 1 tablet by mouth once daily. erythromycin (ROMYCIN) 5 mg/gram (0.5 %) ophthalmic ointment In both eyes and on incisions four times a day X 1 wk then twice a day x 1 wk ezetimibe (ZETIA) 10 mg tablet Take 1 tablet by mouth once daily. erythromycin (ROMYCIN) 5 mg/gram (0.5 %) ophthalmic ointment Apply 1 (more content not included)... Normal [facility]issa [facility]-03-2022 [facility] THANH COLEMAN ([id number]) 1935 M Date Time Provider Department 07/03/22 [facility] During your visit today, we recorded the following information about you: Vivienne Villarreal RN 07/03/2022 2:44 PM Signed Jocelyn with [facility] calls to let provider know that on Friday06/30/2022 patient had a fall. Patient was lying down, woke up, went to get up and his legs gave out, falling to the ground landing on knees then buttocks. Patient reports knee was hurting prior to falling. Jocelyn reports knee is slightly swollen, warm to touch, and patient is having difficulty standing and walking. Patient is able to walk around his apartment but not longer distances outside per his normal. Patient is using a heating pad, tylenol, and an analgesic pain rub with some relief. Patient reports he is slowly getting better. Jocelyn was with patient. Had her offer an appointment for evaluation and possible x-ray but patient declines at this time. CELESTINE Kaur APRN.MADY 07/03/2022 6:37 PM Signed Agree with below. Ekta Mandujano APRN.MADY Allergies As of Date: 07/03/2022 Noted Allergy Reaction DUST 05/29/2017 14 - Other: See Comments GRASS POLLEN 05/29/2017 14 - Other: See Comments MOLD SPORES 05/29/2017 14 - Other: See Comments Date Reviewed: 04/10/2022 Reviewed by: Camryn Davila MD - Fully Assessed Reason for Visit: Patient Update [1234] Prescriptions as of 07/03/2022 - Fenofibrate (LOFIBRA) 54 mg tablet Take 1 tablet by mouth once daily. - furosemide (LASIX) 20 mg tablet TAKE 1 TABLET BY MOUTH DAILY AFTER BREAKFAST *FOR SWELLING - lisinopril (ZESTRIL, PRINIVIL) 20 mg tablet Take 1 tablet by mouth once daily. - erythromycin (ROMYCIN) 5 mg/gram (0.5 %) ophthalmic ointment In both eyes and on incisions four times a day X 1 wk then twice a day x 1 wk - ezetimibe (ZETIA) 10 mg tablet Take 1 tablet by mouth once daily. - erythromycin (ROMYCIN) 5 mg/gram (0.5 %) ophthalmic ointment Apply 1/2 inch ribbon per application to incision and in eye four times a day X 1 wk then twice a day x 1 wk - ketoconazole (NIZORAL) 2 % cream Apply to affected area twice daily. To the ear for rash - ketoconazole (NIZORAL) 2 % shampoo Apply to affected area once daily as needed for itching/rash. - atorvastatin (LIPITOR) 40 mg tablet Take 1 tablet by mouth once daily. - metoprolol tartrate, short acting, (LOPRESSOR) 100 mg tablet Take 1 tablet by mouth twice daily. - potassium chloride (KLOR-CON 10) 10 mEq tablet Take 1 tablet by mouth once daily. - sertraline (ZOLOFT) 50 mg tablet Take 1 tablet by mouth daily with dinner. - triamcinolone (KENALOG) 0.1 % lotion Apply to affected area three times daily. - iinprmay-xlaleyogk-drhr icidin (NEOMYCIN) 1.75 mg-10,000 unit-0.025mg/mL drop Apply 3 drops to each ear twice daily. - mdcolxcv-sijfkyjkd-uwkl ocortisone (CORTISPORIN) 3.5-10,000-1 mg/mL-unit/mL-% otic suspension Use 4 Drops in the ears four times daily. - warfarin (COUMADIN) 4 mg tablet Take 1 tablet by mouth once daily. - ELIQUIS 2.5 mg tab(s) TAKE 1 TABLET BY MOUTH TWICE A DAY - nitroglycerin sublingual (NITROQUICK) 0.4 mg SL tablet Dissolve 1 tablet under the tongue every 5 minutes as needed. - albuterol HFA (VENTOLIN HFA) 90 mcg/actuation inhaler Inhale 2 Puffs as instructed every 4 hours as needed for wheezing/shortness of breath. - fluticasone (FLONASE) 50 mcg/actuation nasal spray Use 1 [place] in each nostril daily at bedtime. - aspirin, enteric coated (ASPIRIN, ENTERIC COATED) 81 mg EC tablet Take 81 mg by mouth once daily. - senna (SENOKOT) 8.6 mg tab Take 8.6 mg by mouth once daily as needed. - Magnesium 250 mg tab Take 250 mg by mouth once daily. 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] 08/10/2015 S/P insertion of iliac artery stent [Z95.828] 08/10/2015 Presence of cardiac pacemaker [Z95.0] 08/10/2015 Sick sinus syndrome (HCC) [I49.5] 08/10/2015 Permanent atrial fibrillation (HCC) [I48.21] 08/10/2015 Gastrointestinal hemorrhage associated with ang*08/10/2015 Dyslipidemia [E78.5] 08/10/2015 Tobacco use [Z72.0] 08/10/2015 Encounter for monitoring anti-arrhythmic therap*08/10/2015 06/22/2020 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] 08/10/2015 Chronic obstructive pulmonary disease (HCC) [J4*01/29/2016 CKD (chronic kidney disease) [N18.9] 06/19/2016 06/22/2020 Allergic rhinitis [J30.9] 06/19/2016 06/22/2020 Essential hypertension [I10] 06/19/2016 Stage 3b chronic kidney disease ( (more content not included)... Normal [facility] .Auto Diffon 04-23-2022 Basophil, Absolute 0.1 10 3/mcL Normal 0.0-0.3 [facility] [place] Comment on above: Performed By: #### P RO #### [address] [address] Basophils/100 WBC (Bld) 0.7 % Normal 0.0-2.5 [facility] ([place]) Comment on above: Performed By: #### P RO #### [address] [address] Eosinophil, Absolute 0.3 10 3/mcL Normal 0.0-0.7 [facility] ([place]) Comment on above: Performed By: #### P RO #### [address] [address] Eosinophils/100 WBC (Bld) 3.7 % Normal 0.0-6.0 [facility] ([place] Comment on above: Performed By: #### P RO #### [id number] [place] [address] Lymphocyte, Absolute 1.5 10 3/mcL Normal 0.9-4.3 [facility] ([place] Comment on above: Performed By: #### P RO #### [id number] [place] [address] Lymphocytes/100 WBC (Bld) 19.7 % Low 20.0-40.0 [facility] ([place] Comment on above: Performed By: #### P RO #### [address] [address] Monocyte, Absolute 0.7 10 3/mcL Normal 0.1-1.4 [facility] [place] Comment on above: Performed By: #### P RO #### [address] [address] Monocytes/100 WBC (Bld) 9.8 % Normal 2.0-13.0 [facility] ([place] Comment on above: Performed By: #### P RO #### [address] [address] Neutrophils/100 WBC (Bld) 66.1 % Normal 50.0-75.0 [facility] ([place] Comment on above: Performed By: #### P RO #### [address] [address] .GFRon 04-23-2022 GFR 50 ml/min/1.73sqm Normal [facility] ([place] Comment on above: Result Comment: GFR Population mean for , Non- Americans Ages 20-29 = 116 mL/min/1.73 sq.m. Ages 30-39 = 107 mL/min/1.73 sq.m. Ages 40-49 = 99 mL/min/1.73 sq.m. Ages 50-59 = 93 mL/min/1.73 sq.m. Ages 60-69 = 85 mL/min/1.73 sq.m. Ages 70+ = 75 mL/min/1.73 sq.m. Chronic Kidney Disease: Less than 60 mL/min/1.73 square meters End Stage Renal Disease: Less than 15 mL/min/1.73 square meters Performed By: #### B MP, GFR #### [address] [address] GFR Non- 41 ml/min/1.73sqm Normal [facility] ([place] Comment on above: Result Comment: GFR Population mean for , Non- Americans Ages 20-29 = 116 mL/min/1.73 sq.m. Ages 30-39 = 107 mL/min/1.73 sq.m. Ages 40-49 = 99 mL/min/1.73 sq.m. Ages 50-59 = 93 mL/min/1.73 sq.m. Ages 60-69 = 85 mL/min/1.73 sq.m. Ages 70+ = 75 mL/min/1.73 sq.m. Chronic Kidney Disease: Less than 60 mL/min/1.73 square meters End Stage Renal Disease: Less than 15 mL/min/1.73 square meters Performed By: #### B MP, GFR #### [address] [address] .NEUABSon 04-23-2022 Neutrophil, Absolute 5.0 10 3/mcL Normal 2.3-8.1 [facility] ([place] Comment on above: Performed By: #### P RO #### [address] [address] ABO/Rh (Gel)on 04-23-2022 ABO/Rh Interp Positive Invalid Interpretation Code [facility] ([place] Comment on above: Performed By: #### B MP, GFR #### [address] [address] ABS (Gel)on 04-23-2022 ABSC Interp (Gel) Negative Normal [facility] ([place] Comment on above: Performed By: #### B MP, GFR #### [address] [address] BMPon 04-23-2022 BUN/Creatinine Ratio 21.2 ratio Normal 10.0-22.0 [facility] ([place] Comment on above: Performed By: #### B MP, GFR #### [address] [address] Calcium [Mass/Vol] 9.8 mg/dL Normal 8.7-10.4 [facility] ([place]) Comment on above: Performed By: #### B MP, GFR #### [address] [address] Chloride [Moles/Vol] 111 mmol/L High 98-110 [facility] ([place] Comment on above: Performed By: #### B MP, GFR #### [address] [address] CO2 [Moles/Vol] 28 mmol/L Normal 22-32 [facility] ([place] Comment on above: Performed By: #### B MP, GFR #### [address] [address] Creatinine [Mass/Vol] 1.60 mg/dL High 0.60-1.40 [facility] ([place] Comment on above: Performed By: #### B MP, GFR #### [address] [address] Electrolyte Balance 6.0 mEq/L Normal 4.0-15.0 [facility] [place] Comment on above: Performed By: #### B MP, GFR #### [address] [address] Glucose [Mass/Vol] 97 mg/dL Normal 82-115 [facility] ([place]) Comment on above: Performed By: #### B MP, GFR #### [address] [address] Potassium [Moles/Vol] 4.4 mmol/L Normal 3.5-5.0 [facility] ([place] Comment on above: Performed By: #### B MP, GFR #### [address] [address] Sodium [Moles/Vol] 145 mmol/L Normal 136-145 [facility] ([place]) Comment on above: Performed By: #### B MP, GFR #### [address] [address] Urea nitrogen [Mass/Vol] 34.0 mg/dL High 8.0-22.0 [facility] ([place] Comment on above: Performed By: #### B MP, GFR #### [place] [address] CBCon 04-23-2022 Erythrocyte distribution width (RBC) [Ratio] 14.5 % Normal 11.5-15.5 [facility] ([place] Comment on above: Performed By: #### P RO #### [address] [place] [address] Hematocrit (Bld) [Volume fraction] 50.5 % Normal 40.0-52.0 [facility] ([place] Comment on above: Performed By: #### P RO #### [address] [place] [address] Hgb 16.7 G/dL Normal 13.0-17.5 [facility] ([place] Comment on above: Performed By: #### P RO #### [address] [place] [address] MCH (RBC) [Entitic mass] 30.7 pg Normal 27.0-33.0 [facility] ([place] Comment on above: Performed By: #### P RO #### [address] [place] [address] MCHC 33.2 G/dL Normal 32.0-36.0 [facility] ([place] Comment on above: Performed By: #### P RO #### [place] [address] MCV (RBC) [Entitic vol] 92.4 fL Normal 81.0-100.0 [facility] ([place] Comment on above: Performed By: #### P RO #### [place] [address] Platelet 116 10 3/mcL Low 150-450 [facility] ([place] Comment on above: Performed By: #### P RO #### [place] [address] Platelet mean volume (Bld) [Entitic vol] 9.8 fL Normal 6.4-10.5 [facility] ([place] Comment on above: Performed By: #### P RO #### [address] [place] [id number] [place] [address] RBC 5.46 10 6/mcL Normal 4.50-6.00 [facility] ([place] Comment on above: Performed By: #### P RO #### [facility] [address] [place] [address] WBC 7.5 10 3/mcL Normal 4.5-10.8 [facility] ([place] Comment on above: Performed By: #### P RO #### [address] [place] [id number] [place] [address] LABORATORYOrdered By: Kateryna Khan on 04-23-2022 INR Coag (PPP) [Relative time] 1.1 {INR} Invalid Interpretation Code AH Auto Coag SS PT Coag (PPP) [Time] 12.9 s Invalid Interpretation Code 9.0 - 14.9 seconds AH Auto Coag SS LABORATORYOrdered By: Khanh Mascorro on 04-23-2022 ABO and Rh group Nom (Bld) Blood group A Rh(D) positive Invalid Interpretation Code BB Auto SS Blood group antibody screen Ql NEG (04/23/22 9:24 AM) Invalid Interpretation Code AH BB Auto SS LABORATORYOrdered By: [employer] on 04-23-2022 Basophils (Bld) [#/Vol] 0.1 103/mcL Invalid Interpretation Code 0.0 - 0.3 10^3/mcL Workflow SS Basophils/100 WBC (Bld) 0.7 % Invalid Interpretation Code 0.0 - 2.5 % AH Workflow SS Calcium [Mass/Vol] 9.8 mg/dL Invalid Interpretation Code 8.7 - 10.4 mg/dL ADM SS Chloride [Moles/Vol] 111 mmol/L Invalid Interpretation Code 98 - 110 mEq/L ADM SS CO2 [Moles/Vol] 28 mmol/L Invalid Interpretation Code 22 - 32 mEq/L ADM SS Creatinine [Mass/Vol] 1.60 mg/dL Invalid Interpretation Code 0.60 - 1.40 mg/dL ADM SS Electrolyte Balance 6.0 mEq/L Invalid Interpretation Code 4.0 - 15.0 mEq/L ADM SS Eosinophils (Bld) [#/Vol] 0.3 103/mcL Invalid Interpretation Code 0.0 - 0.7 10^3/mcL Workflow SS Eosinophils/100 WBC (Bld) 3.7 % Invalid Interpretation Code 0.0 - 6.0 % AH Workflow SS Erythrocyte distribution width (RBC) [Ratio] 14.5 % Invalid Interpretation Code 11.5 - 15.5 % AH Workflow SS GFR/1.73 sq M.predicted among blacks MDRD (S/P/Bld) [Vol rate/Area] 50 ml/min/1.73sqm Invalid Interpretation Code Chemistry S GFR/1.73 sq M.predicted among non-blacks MDRD (S/P/Bld) [Vol rate/Area] 41 ml/min/1.73sqm Invalid Interpretation Code Chemistry S Glucose [Mass/Vol] 97 mg/dL Invalid Interpretation Code 82 - 115 mg/dL AH ADM SS Hematocrit (Bld) [Volume fraction] 50.5 % Invalid Interpretation Code 40.0 - 52.0 % AH Workflow SS Hemoglobin (Bld) [Mass/Vol] 16.7 G/dL Invalid Interpretation Code 13.0 - 17.5 G/dL AH Workflow SS Lymphocytes (Bld) [#/Vol] 1.5 103/mcL Invalid Interpretation Code 0.9 - 4.3 10^3/mcL AH Workflow SS Lymphocytes/100 WBC (Bld) 19.7 % Invalid Interpretation Code 20.0 - 40.0 % AH Workflow SS MCH (RBC) [Entitic mass] 30.7 pg Invalid Interpretation Code 27.0 - 33.0 pg AH Workflow SS MCHC 33.2 G/dL Invalid Interpretation Code 32.0 - 36.0 G/dL AH Workflow SS MCV (RBC) [Entitic vol] 92.4 fL Invalid Interpretation Code 81.0 - 100.0 fL AH Workflow SS Monocytes (Bld) [#/Vol] 0.7 103/mcL Invalid Interpretation Code 0.1 - 1.4 10^3/mcL AH Workflow SS Monocytes/100 WBC (Bld) 9.8 % Invalid Interpretation Code 2.0 - 13.0 % AH Workflow SS Neutrophils (Bld) [#/Vol] 5.0 103/mcL Invalid Interpretation Code 2.3 - 8.1 10^3/mcL AH Workflow SS Neutrophils/100 WBC (Bld) 66.1 % Invalid Interpretation Code 50.0 - 75.0 % AH Workflow SS Platelet mean volume (Bld) [Entitic vol] 9.8 fL Invalid Interpretation Code 6.4 - 10.5 fL AH Workflow SS Platelets (Bld) [#/Vol] 116 103/mcL Invalid Interpretation Code 150 - 450 10^3/mcL AH Workflow SS Potassium [Moles/Vol] 4.4 mmol/L Invalid Interpretation Code 3.5 - 5.0 mEq/L AH ADM SS RBC (Bld) [#/Vol] 5.46 106/mcL Invalid Interpretation Code 4.50 - 6.00 10^6/mcL AH Workflow SS Sodium [Moles/Vol] 145 mmol/L Invalid Interpretation Code 136 - 145 mEq/L AH ADM SS Urea nitrogen [Mass/Vol] 34.0 mg/dL Invalid Interpretation Code 8.0 - 22.0 mg/dL AH ADM SS Urea nitrogen/Creatinine [Mass ratio] 21.2 ratio Invalid Interpretation Code 10.0 - 22.0 ratio AH ADM SS WBC (Bld) [#/Vol] 7.5 103/mcL Invalid Interpretation Code 4.5 - 10.8 10^3/mcL Workflow SS PROon 04-23-2022 INR Coag (PPP) [Relative time] 1.1 {INR} Normal [facility] ([place] Comment on above: Result Comment: The [employer] (CHEST, 1992, 102:312S-25S) recommended therapeutic range for oral anticoagulant therapy is: LOW RISK: Prophylaxis of venous thrombosis INR: 2.0-3.0 Treatment of pulmonary embolism 2.0-3.0 Prevention of systemic embolism 2.0-3.0 HIGH RISK: Mechanical prosthetic valves 2.5-3.5 Performed By: #### P RO #### [address] [address] PT Coag (PPP) [Time] 12.9 s Normal 9.0-14.9 [facility] ([place]) Comment on above: Result Comment: Effe ctive 11/03/07, Protime results may be affected by some antibiotics (i.e. Ciprofloxacin, Azithromycin, Bactrim) which may potentiate the action of oral anticoagulants, with further increases in Protime/INR. Performed By: #### P RO #### [address] [address] Rissa 04-12-2022 CNPN Telephone ([facility]) THANH COLEMAN ([id number]) 1935 M Date Time Provider Department 04/12/22 JOB MORRISON During your visit today, we recorded the following information about you: Job Morrison PA-C 04/12/2022 11:30 AM Signed Called pt with updated culture results. He states he is doing well, currently on Doxycycline. Will call back if any new or worsening symptoms. WOUND CULTURE Moderate Staphylococcus aureus Abnormal For wound culture, tissue or aspirates are superior to swab specimens. If a swab must be used, eSwab is preferred ([place] No. [id number]). This test was developed and its performance characteristics determined by the [facility] [place] ([facility]). It has not been cleared or approved by the FDA. [facility] is regulated under CLIA as qualified to perform high-complexity testing. This test is used for clinical purposes. It should not be regarded as investigational or for research. Smear Result Abnormal Few Gram positive cocci No Polymorphonuclear Leukocytes Resulting Agency: [facility] Susceptibility Staphylococcus aureus MINIMUM INHIBITORY CONCENTRATION(VITEK) Clindamycin Resistant Doxycycline Susceptible Erythromycin Resistant Gentamicin Susceptible Oxacillin Susceptible 1 Rifampin Susceptible 2 Tetracycline Susceptible Trimeth sulfameth Susceptible Vancomycin Susceptible Job Morrison PA-C Allergies As of Date: 04/12/2022 Noted Allergy Reaction DUST 05/29/2017 14 - Other: See Comments GRASS POLLEN 05/29/2017 14 - Other: See Comments MOLD SPORES 05/29/2017 14 - Other: See Comments Date Reviewed: 04/10/2022 Reviewed by: Camryn Davila MD - Fully Assessed Reason for Visit: Patient Update [1234] Prescriptions as of 04/12/2022 - doxycycline hyclate (VIBRAMYCIN) 100 mg capsule Take 1 capsule by mouth twice daily for 14 days. - mupirocin (BACTROBAN) 2 % ointment Apply to affected area three times daily for 14 days. - erythromycin (ROMYCIN) 5 mg/gram (0.5 %) ophthalmic ointment In both eyes and on incisions four times a day X 1 wk then twice a day x 1 wk - ezetimibe (ZETIA) 10 mg tablet Take 1 tablet by mouth once daily. - furosemide (LASIX) 20 mg tablet TAKE 1 TABLET BY MOUTH DAILY AFTER BREAKFAST *FOR SWELLING - erythromycin (ROMYCIN) 5 mg/gram (0.5 %) ophthalmic ointment Apply 1/2 inch ribbon per application to incision and in eye four times a day X 1 wk then twice a day x 1 wk - ketoconazole (NIZORAL) 2 % cream Apply to affected area twice daily. To the ear for rash - ketoconazole (NIZORAL) 2 % shampoo Apply to affected area once daily as needed for itching/rash. - lisinopril (ZESTRIL, PRINIVIL) 20 mg tablet TAKE 1 TABLET BY MOUTH DAILY - atorvastatin (LIPITOR) 40 mg tablet Take 1 tablet by mouth once daily. - metoprolol tartrate, short acting, (LOPRESSOR) 100 mg tablet Take 1 tablet by mouth twice daily. - potassium chloride (KLOR-CON 10) 10 mEq tablet Take 1 tablet by mouth once daily. - sertraline (ZOLOFT) 50 mg tablet Take 1 tablet by mouth daily with dinner. - triamcinolone (KENALOG) 0.1 % lotion Apply to affected area three times daily. - vhmgddmk-yzuecgxrm-ejab icidin (NEOMYCIN) 1.75 mg-10,000 unit-0.025mg/mL drop Apply 3 drops to each ear twice daily. - eaerooeh-edjiynrqr-uesu ocortisone (CORTISPORIN) 3.5-10,000-1 mg/mL-unit/mL-% otic suspension Use 4 Drops in the ears four times daily. - warfarin (COUMADIN) 4 mg tablet Take 1 tablet by mouth once daily. - ELIQUIS 2.5 mg tab(s) TAKE 1 TABLET BY MOUTH TWICE A DAY - Fenofibrate (LOFIBRA) 54 mg tablet Take 1 tablet by mouth once daily. - nitroglycerin sublingual (NITROQUICK) 0.4 mg SL tablet Dissolve 1 tablet under the tongue every 5 minutes as needed. - albuterol HFA (VENTOLIN HFA) 90 mcg/actuation inhaler Inhale 2 Puffs as instructed every 4 hours as needed for wheezing/shortness of breath. - fluticasone (FLONASE) 50 mcg/actuation nasal spray Use 1 [place] in each nostril daily at bedtime. - aspirin, enteric coated (ASPIRIN, ENTERIC COATED) 81 mg EC tablet Take 81 mg by mouth once daily. - senna (SENOKOT) 8.6 mg tab Take 8.6 mg by mouth once daily as needed. - Magnesium 250 mg tab Take 250 mg by mouth once daily. Problem List As Of Date 04/12/2022 Noted Resolved Chronic rhinitis [J31.0] 06/30/2014 Cerumen impaction [H61.20] 06/30/2014 06/22/2020 Chronic otitis externa [H60.60] 06/30/2014 Presence of drug coated stent in left circumfle*08/10/2015 Asymptomatic LV dysfunction [I51.9] 08/10/2015 History of AR (myocardial infarction) [I25.2] 08/10/2015 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] 08/10/2015 S/P insertion of iliac artery stent [Z95.828] 08/10/2015 Presence of cardiac pacemaker [Z95.0] 08/10/2015 Sick sinus syndrome (HCC) [I49.5] 08/10/2015 Permanent atrial fibrillat (more content not included)... [facility] THANH COLEMAN ([id number]) 1935 M Date Time Provider Department 04/11/22 JOB MORRISON During your visit today, we recorded the following information about you: Job Morrison PA-C 04/11/2022 12:23 PM Signed Called pt to inform him of prelim culture results Smear Result Abnormal Few Gram positive cocci No Polymorphonuclear Leukocytes For wound culture, tissue or aspirates are superior to swab specimens. If a swab must be used, eSwab is preferred ([place] No. [id number]). Pt doing well Covered with oral Doxycycline, no sensitivity results yet Pt understands, will call back if any new or worsening symptoms Will update pt on further results Job Morrison PA-C Allergies As of Date: 04/11/2022 Noted Allergy Reaction DUST 05/29/2017 14 - Other: See Comments GRASS POLLEN 05/29/2017 14 - Other: See Comments MOLD SPORES 05/29/2017 14 - Other: See Comments Date Reviewed: 04/10/2022 Reviewed by: Camryn Davila MD - Fully Assessed Reason for Visit: Results [95] Prescriptions as of 04/11/2022 - doxycycline hyclate (VIBRAMYCIN) 100 mg capsule Take 1 capsule by mouth twice daily for 14 days. - mupirocin (BACTROBAN) 2 % ointment Apply to affected area three times daily for 14 days. - erythromycin (ROMYCIN) 5 mg/gram (0.5 %) ophthalmic ointment In both eyes and on incisions four times a day X 1 wk then twice a day x 1 wk - ezetimibe (ZETIA) 10 mg tablet Take 1 tablet by mouth once daily. - furosemide (LASIX) 20 mg tablet TAKE 1 TABLET BY MOUTH DAILY AFTER BREAKFAST *FOR SWELLING - erythromycin (ROMYCIN) 5 mg/gram (0.5 %) ophthalmic ointment Apply 1/2 inch ribbon per application to incision and in eye four times a day X 1 wk then twice a day x 1 wk - ketoconazole (NIZORAL) 2 % cream Apply to affected area twice daily. To the ear for rash - ketoconazole (NIZORAL) 2 % shampoo Apply to affected area once daily as needed for itching/rash. - lisinopril (ZESTRIL, PRINIVIL) 20 mg tablet TAKE 1 TABLET BY MOUTH DAILY - atorvastatin (LIPITOR) 40 mg tablet Take 1 tablet by mouth once daily. - metoprolol tartrate, short acting, (LOPRESSOR) 100 mg tablet Take 1 tablet by mouth twice daily. - potassium chloride (KLOR-CON 10) 10 mEq tablet Take 1 tablet by mouth once daily. - sertraline (ZOLOFT) 50 mg tablet Take 1 tablet by mouth daily with dinner. - triamcinolone (KENALOG) 0.1 % lotion Apply to affected area three times daily. - hljimnxh-amilwdujb-gcxt icidin (NEOMYCIN) 1.75 mg-10,000 unit-0.025mg/mL drop Apply 3 drops to each ear twice daily. - fbiofuxc-emlgvhiuf-ywgt ocortisone (CORTISPORIN) 3.5-10,000-1 mg/mL-unit/mL-% otic suspension Use 4 Drops in the ears four times daily. - warfarin (COUMADIN) 4 mg tablet Take 1 tablet by mouth once daily. - ELIQUIS 2.5 mg tab(s) TAKE 1 TABLET BY MOUTH TWICE A DAY - Fenofibrate (LOFIBRA) 54 mg tablet Take 1 tablet by mouth once daily. - nitroglycerin sublingual (NITROQUICK) 0.4 mg SL tablet Dissolve 1 tablet under the tongue every 5 minutes as needed. - albuterol HFA (VENTOLIN HFA) 90 mcg/actuation inhaler Inhale 2 Puffs as instructed every 4 hours as needed for wheezing/shortness of breath. - fluticasone (FLONASE) 50 mcg/actuation nasal spray Use 1 [place] in each nostril daily at bedtime. - aspirin, enteric coated (ASPIRIN, ENTERIC COATED) 81 mg EC tablet Take 81 mg by mouth once daily. - senna (SENOKOT) 8.6 mg tab Take 8.6 mg by mouth once daily as needed. - Magnesium 250 mg tab Take 250 mg by mouth once daily. 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] 08/10/2015 S/P insertion of iliac artery stent [Z95.828] 08/10/2015 Presence of cardiac pacemaker [Z95.0] 08/10/2015 Sick sinus syndrome (HCC) [I49.5] 08/10/2015 Permanent atrial fibrillation (HCC) [I48.21] 08/10/2015 Gastrointestinal hemorrhage associated with ang*08/10/2015 Dyslipidemia [E78.5] 08/10/2015 Tobacco use [Z72.0] 08/10/2015 Encounter for monitoring anti-arrhythmic therap*08/10/2015 06/22/2020 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] 08/10/2015 Chronic obstructive pulmonary disease (HCC) [J4*01/29/2016 CKD (chronic kidney disease) [N18.9] 06/19/2016 06/22/2020 Allergic rhinitis [J30.9] 06/19/2016 06/22/2020 Essential hypertension [I10] 06/19/2016 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] 12/21/2015 Arteriosclerosis of coronary artery [I25.10] 12/23/2019 Aortic aneurysm (HCC) [I71.9] 06/22/2020 Abnormal cholesterol test [E78.9] 06/22/2020 COPD (chronic obstructive (more content not included)... Normal [facility] Bacteria d Culton 04-10-20 Bacteria identified Cx Nom (Wound) ORGANISM ID: 1 Moderate Staphylococcus aureus GRAM STAIN: Few Gram positive cocci No Polymorphonuclear Leukocytes ORGANISM ID: 1 (STAPHYLOCOCCUS AUREUS) ANTIBIOTIC INTERPRETATION MODESTO STATUS REFERENCE RANGE Oxacillin S <=0.25 F Susceptible <=2 , Resistant >2 Oxacillin-susceptible staphylococci are susceptible to other penicilllinase-stable penicillins, beta-lactam/beta-lactam ase inhibitor combinations, anti-staphylococcal cephems, and carbapenems. Gentamicin S <=0.5 F Susceptible <=4 , Intermediate >4 , Resistant >8 Erythromycin R >=8 F Susceptible <=0.5 , Intermediate >.5 , Resistant >4 Clindamycin R >=4 F Susceptible <=0.5 , Intermediate >.5 , Resistant >2 Trimeth sulfameth S <=10 F Susceptible <=40 , Resistant >40 Vancomycin S 1 F Susceptible <=2 , Intermediate >2 , Resistant >8 Rifampin S <=0.5 F Susceptible <=1 , Intermediate >1 , Resistant >2 Rifampin should not be used alone for antimicrobial therapy. Tetracycline S <=1 F Susceptible <=4 , Intermediate >4 , Resistant >8 Doxycycline S <=0.5 F Susceptible <=4 , Intermediate >4 , Resistant >8 Abnormal [facility] Comment on above: Performed By: #### [id number] ####[facility] [id number] [address] [facility] CNOVon 04-08-2022 CNOV Office Visit (FAMWS ) THANH COLEMAN ([id number]) 1935 M Date Time Provider Department 04/08/22 3:00 PM [facility] During your visit today, we recorded the following information about you: Pulse Respiration Blood pressure Weight 72/minute 16/minute 110/70 96.8 kg Zoraida Hodge APRN.CNP 04/10/2022 4:48 PM Signed Chief Complaint Patient presents with: F/U 3 Month HPI Thanh Yee [place] is a 86 year old male who presents here today for Above Complaints.. Today: Here for a 3 months check up. Denies any concerns, is doing well. Is still smoking, but has cut way back. Has only had 2 today. Past medical history, appointments, medications, allergies reviewed. Previous Medical History PAST MEDICAL HISTORY Diagnosis Date Abnormal cholesterol test Anticoagulant long-term use Aortic aneurysm ([facility]) s/p repair AAA Arteriosclerosis of coronary artery 12/23/2019 pacemaker, hyperlipidemia, hyperlipidemia At risk for stroke Atrial flutter ([facility]) 03/03/2020 CAD (coronary artery disease) pacemaker, hyperlipidemia, hyperlipidemia Chronic combined systolic and diastolic congestive heart failure (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) 12/2015 COPD (chronic obstructive pulmonary disease) (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) 07/02/2021 Hypertriglyceridemia Low HDL (under 40) Neuropathy Palpitations 12/23/2019 Permanent atrial fibrillation ([facility]) 08/10/2015 Presence of cardiac pacemaker 08/10/2015 Presence of drug coated stent in left circumflex coronary artery 08/10/2015 Sick sinus syndrome ([facility]) 08/10/2015 Stage 3b chronic kidney disease ([facility]) 12/21/2015 TB (pulmonary tuberculosis) Thrombocytopenia ([facility]) Previous Surgical History PAST SURGICAL HISTORY Procedure Laterality Date ABD AORTIC ANEURYSM REPAIR CORONARY STENT EA VESSEL 3-2008 x 2, drug eluting ILIAC SLEEPING BAG FILLER W/WO STENT PACEMAKER DUAL CHAMBER TIER 0 4-2012 PAST SURGICAL HISTORY OF resection lobe of lung,,AAA Family History FAMILY HISTORY Problem Relation Age of Onset No Ocular Disease Mother other (TB) Mother Stroke Father No Ocular Disease Father Cancer Brother Kidney Disease Sister Patient Allergies ALLERGIES Allergen Reactions Dust Other: See Comments Grass Pollen Other: See Comments Mold Spores Other: See Comments Current Medications Current Outpatient Medications on File Prior to Visit Medication Sig erythromycin (ROMYCIN) 5 mg/gram (0.5 %) ophthalmic ointment In both eyes and on incisions four times a day X 1 wk then twice a day x 1 wk ezetimibe (ZETIA) 10 mg tablet Take 1 tablet by mouth once daily. furosemide (LASIX) 20 mg tablet TAKE 1 TABLET BY MOUTH DAILY AFTER BREAKFAST *FOR SWELLING erythromycin (ROMYCIN) 5 mg/gram (0.5 %) ophthalmic ointment Apply 1/2 inch ribbon per application to incision and in eye four times a day X 1 wk then twice a day x 1 wk ketoconazole (NIZORAL) 2 % cream Apply to affected area twice daily. To the ear for rash ketoconazole (NIZORAL) 2 % shampoo Apply to affected area once daily as needed for itching/rash. lisinopril (ZESTRIL, PRINIVIL) 20 mg tablet TAKE 1 TABLET BY MOUTH DAILY atorvastatin (LIPITOR) 40 mg tablet Take 1 tablet by mouth once daily. metoprolol tartrate, short acting, (LOPRESSOR) 100 mg tablet Take 1 tablet by mouth twice daily. potassium chloride (KLOR-CON 10) 10 mEq tablet Take 1 tablet by mouth once daily. sertraline (ZOLOFT) 50 mg tablet Take 1 tablet by mouth daily with dinner. triamcinolone (KENALOG) 0.1 % lotion Apply to affected area three times daily. jeuvaafo-fmlkzhjcw-umvn icidin (NEOMYCIN) 1.75 mg-10,000 unit-0.025mg/mL drop Apply 3 drops to each ear twice daily. iutrjjta-jucmwybsd-kznj ocortisone (CORTISPORIN) 3.5-10,000-1 mg/mL-unit/mL-% otic suspension Use 4 Drops in the ears four times daily. warfarin (COUMADIN) 4 mg tablet Take 1 tablet by mouth once daily. ELIQUIS 2.5 mg tab(s) TAKE 1 TABLET BY MOUTH TWICE A DAY Fenofibrate (LOFIBRA) 54 mg tablet Take 1 tablet by mouth once daily. nitroglycerin sublingual (NITROQUICK) 0.4 mg SL tablet Dissolve 1 tablet under the tongue every 5 minutes as needed. albuterol HFA (VENTOLIN HFA) 90 mcg/actuation inhaler Inhale 2 Puffs (more content not included)... Normal [facility] Rissa 03-13-2022 MADYN Telephone ([facility]) THANH COLEMAN ([id number]) 1935 M Date Time Provider Department 03/13/22 BOO MARINA During your visit today, we recorded the following information about you: Ellen Taylor RN 03/13/2022 8:42 AM Signed Jocelyn from [facility] calls and states that she had faxed over a plan of care that she needs provider to sign and fax back. Jocelyn states to make sure to fax all 3 pages back. CELESTINE Nguyen RN 03/18/2022 10:13 AM Signed Jocelyn with [facility] calls to check on status of request. Jocelyn giving a second fax number to fax POC to if first one doesn't go through. Fax number is [phone]. CELESTINE Kaur LPN 03/18/2022 3:06 PM Signed Forms were faxed to other fax number below. Allergies As of Date: 03/13/2022 Noted Allergy Reaction DUST 05/29/2017 14 - Other: See Comments GRASS POLLEN 05/29/2017 14 - Other: See Comments MOLD SPORES 05/29/2017 14 - Other: See Comments Date Reviewed: 03/06/2022 Reviewed by: Camryn Davila MD - Fully Assessed Reason for Visit: Plan of Care [Other] Prescriptions as of 03/18/2022 - erythromycin (ROMYCIN) 5 mg/gram (0.5 %) ophthalmic ointment In both eyes and on incisions four times a day X 1 wk then twice a day x 1 wk - ezetimibe (ZETIA) 10 mg tablet Take 1 tablet by mouth once daily. - furosemide (LASIX) 20 mg tablet TAKE 1 TABLET BY MOUTH DAILY AFTER BREAKFAST *FOR SWELLING - erythromycin (ROMYCIN) 5 mg/gram (0.5 %) ophthalmic ointment Apply 1/2 inch ribbon per application to incision and in eye four times a day X 1 wk then twice a day x 1 wk - ketoconazole (NIZORAL) 2 % cream Apply to affected area twice daily. To the ear for rash - ketoconazole (NIZORAL) 2 % shampoo Apply to affected area once daily as needed for itching/rash. - lisinopril (ZESTRIL, PRINIVIL) 20 mg tablet TAKE 1 TABLET BY MOUTH DAILY - atorvastatin (LIPITOR) 40 mg tablet Take 1 tablet by mouth once daily. - metoprolol tartrate, short acting, (LOPRESSOR) 100 mg tablet Take 1 tablet by mouth twice daily. - potassium chloride (KLOR-CON 10) 10 mEq tablet Take 1 tablet by mouth once daily. - sertraline (ZOLOFT) 50 mg tablet Take 1 tablet by mouth daily with dinner. - triamcinolone (KENALOG) 0.1 % lotion Apply to affected area three times daily. - jczpznxq-milmpcrkf-rras icidin (NEOMYCIN) 1.75 mg-10,000 unit-0.025mg/mL drop Apply 3 drops to each ear twice daily. - cwcrtnsy-eqnbxsjhc-zwcu ocortisone (CORTISPORIN) 3.5-10,000-1 mg/mL-unit/mL-% otic suspension Use 4 Drops in the ears four times daily. - warfarin (COUMADIN) 4 mg tablet Take 1 tablet by mouth once daily. - ELIQUIS 2.5 mg tab(s) TAKE 1 TABLET BY MOUTH TWICE A DAY - Fenofibrate (LOFIBRA) 54 mg tablet Take 1 tablet by mouth once daily. - nitroglycerin sublingual (NITROQUICK) 0.4 mg SL tablet Dissolve 1 tablet under the tongue every 5 minutes as needed. - albuterol HFA (VENTOLIN HFA) 90 mcg/actuation inhaler Inhale 2 Puffs as instructed every 4 hours as needed for wheezing/shortness of breath. - fluticasone (FLONASE) 50 mcg/actuation nasal spray Use 1 [place] in each nostril daily at bedtime. - aspirin, enteric coated (ASPIRIN, ENTERIC COATED) 81 mg EC tablet Take 81 mg by mouth once daily. - senna (SENOKOT) 8.6 mg tab Take 8.6 mg by mouth once daily as needed. - Magnesium 250 mg tab Take 250 mg by mouth once daily. 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] 08/10/2015 Sick sinus syndrome (HCC) [I49.5] 08/10/2015 Permanent atrial fibrillation (HCC) [I48.21] 08/10/2015 Gastrointestinal hemorrhage associated with ang*08/10/2015 Dyslipidemia [E78.5] 08/10/2015 Tobacco use [Z72.0] 08/10/2015 Encounter for monitoring anti-arrhythmic therap*08/10/2015 06/22/2020 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] 08/10/2015 Chronic obstructive pulmonary disease (HCC) [J4*01/29/2016 CKD (chronic kidney disease) [N18.9] 06/19/2016 06/22/2020 Allergic rhinitis [J30.9] 06/19/2016 06/22/2020 Essential hypertension [I10] 06/19/2016 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 Normal [facility] EMERGENCY REPORTon 2 EMERGENCY REPORT [facility] EMERGENCY ROOM REPORT NAME ACCOUNT SEX AGE ADMIT DISCHARGE PT MED. RECORD# NUMBER DATE DATE TYPE THANH COLEMAN [id number] M 86 02/26/22 02/26/22 3 [id number] ROOM: ER DATE OF : 1935 DICTATING PHYSICIAN: Cass Wharton COMPLETION OF CHART: I was unable to complete the previous dictation but most of the dictation should be present. EMERGENCY DEPARTMENT COURSE AND TREATMENT: Patient tolerated the procedure well. He will have the Gelfoam dressing in place and is to keep that in place until he sees the plastic surgeon tomorrow and he will hold pressure 15 - 20 minutes if he has any further bleeding. DIAGNOSIS: Postoperative bleeding. Status post skin cancer excision. Dictated By: Cass Wharton MD 02/26/22 16:14 JOB #: [id number] Transcribed By: israel 02/26/22 19:06 Electronically signed by: Cass Wharton M.D. 03/03/22 19:05 Page 1 of 1 THANH COLEMAN Emergency Room Report Normal [facility] EMERGENCY REPORT [facility] EMERGENCY ROOM REPORT NAME ACCOUNT SEX AGE ADMIT DISCHARGE PT MED. RECORD# NUMBER DATE DATE TYPE THANH COLEMAN [id number] Carina 86 02/26/22 02/26/22 3 [id number] ROOM: ER DATE OF : 1935 DICTATING PHYSICIAN: Cass Wharton CHIEF COMPLAINT: Postoperative bleeding. HISTORY OF PRESENT ILLNESS: 86-year-old gentleman who had an excision of a skin cancer just below the left eye earlier this morning at the [facility]. This afternoon it started bleeding and he could not get it stopped so he came to the Emergency Department. He indicates he is on Eliquis as well as Coumadin and did not stop the medication for the surgery. He is due to follow up with Plastic Surgery at the [facility] tomorrow for revision of the surgery. He denies any pain associated with this. He could just not get the bleeding stopped. No change in his vision. PAST MEDICAL HISTORY: Significant for him being on anticoagulants as well as the recent excision of the skin cancer. SOCIAL HISTORY: Does not smoke or drink excessively. REVIEW OF SYSTEMS: He complains of the bleeding from the excision site on the face. Chest: No pain. Cardiovascular: No shortness of breath. Abdomen: No abdominal pain. All other review of systems are negative except as noted above. PHYSICAL EXAMINATION: On examination he has a dime sized cutaneous excision site just below the left lower eyelid. There is some bleeding at the superior margin of the excision that can not be stopped with direct pressure. Extraocular movements are intact and pupils are equal and reactive. Mouth and pharynx is clear. The neck shows no JVD. The chest is clear. Cardiovascular examination: Regular rate and rhythm. Abdomen is soft and nontender. EMERGENCY DEPARTMENT COURSE AND TREATMENT: Procedure note: The area of excision with bleeding was anesthetized using 1% lidocaine. Verbal permission was obtained for repair of the wound. Once anesthetized and prepared with Chlorhexidine the wound was then sutured on the superior aspect of the excision line with 3 x 5-O Rapide sutures. This controlled the bleeding and hemostasis was obtained. Patient tolerated the procedure well. A Gelfoam dressing was then placed over the wound. DIAGNOSIS: Postoperative bleeding after skin cancer excision. PLAN/DISPOSITION: Discharge instructions were discussed with the patient and his Page 1 of 2 THANH COLEMAN Emergency Room Report THANH COLEMAN : 1935 and they include: 1. He is to keep the Gelfoam on until seen tomorrow. 2. If any further bleeding hold direct pressure for at least 15 minutes. 3. Follow up with his plastic surgeon tomorrow as scheduled. Dictated By: Cass Wharton MD 02/26/22 16:08 JOB #: [id number] Transcribed By: israel 02/26/22 18:10 Electronically signed by: Cass Wharton M.D. 03/03/22 19:04 Page 2 of 2 THANH COLEMAN Emergency Room Report Normal [facility] 03-01-2022 [place] Tele[place] (OPHTLN) THANH COLEMAN ([id number]) 1935 M Date Time Provider Department 03/01/22 JACKY SANCHEZ During your visit today, we recorded the following information about you: Jacky Sanchez APRN.CNP 03/05/2022 1:56 PM Addendum Returning patient's phone call regarding eye patch. Discussed with and patient that it's ok the patch came off. He needs to start using the ointment four times a day. Offered to be seen today, patient declined. Offered to video, patient declined. They will send us a photo of the eye to Nupur's email ([email or web address]) Patient states he is doing well, no issues. All questions answered, return precautions given. Call office at with any questions or concerns. This is a telephone encounter initiated for an established patient, parent or guardian not originating from a related Evaluation AND Management service provided within the previous 7 days nor leading to an Evaluation AND Management service or procedure within the next 24 hours or soonest available appointment. Thanh Coleman consented to this telephone encounter. The following people were present for the encounter: patient. Chief complaint and HPI have been documented and reviewed. Total Time Spent: 5-10 minutes Allergies As of Date: 03/01/2022 Noted Allergy Reaction DUST 05/29/2017 14 - Other: See Comments GRASS POLLEN 05/29/2017 14 - Other: See Comments MOLD SPORES 05/29/2017 14 - Other: See Comments Date Reviewed: 02/27/2022 Reviewed by: Kristi Ledezma RN - Fully Assessed Reason for Visit: Returning Patient's Call [408] Prescriptions as of 03/05/2022 - ezetimibe (ZETIA) 10 mg tablet Take 1 tablet by mouth once daily. - furosemide (LASIX) 20 mg tablet TAKE 1 TABLET BY MOUTH DAILY AFTER BREAKFAST *FOR SWELLING - erythromycin (ROMYCIN) 5 mg/gram (0.5 %) ophthalmic ointment Apply 1/2 inch ribbon per application to incision and in eye four times a day X 1 wk then twice a day x 1 wk - ketoconazole (NIZORAL) 2 % cream Apply to affected area twice daily. To the ear for rash - ketoconazole (NIZORAL) 2 % shampoo Apply to affected area once daily as needed for itching/rash. - lisinopril (ZESTRIL, PRINIVIL) 20 mg tablet TAKE 1 TABLET BY MOUTH DAILY - atorvastatin (LIPITOR) 40 mg tablet Take 1 tablet by mouth once daily. - metoprolol tartrate, short acting, (LOPRESSOR) 100 mg tablet Take 1 tablet by mouth twice daily. - potassium chloride (KLOR-CON 10) 10 mEq tablet Take 1 tablet by mouth once daily. - sertraline (ZOLOFT) 50 mg tablet Take 1 tablet by mouth daily with dinner. - triamcinolone (KENALOG) 0.1 % lotion Apply to affected area three times daily. - mwklnqrt-ntmwrojty-yvot icidin (NEOMYCIN) 1.75 mg-10,000 unit-0.025mg/mL drop Apply 3 drops to each ear twice daily. - maonojie-eaargynen-zqps ocortisone (CORTISPORIN) 3.5-10,000-1 mg/mL-unit/mL-% otic suspension Use 4 Drops in the ears four times daily. - warfarin (COUMADIN) 4 mg tablet Take 1 tablet by mouth once daily. - ELIQUIS 2.5 mg tab(s) TAKE 1 TABLET BY MOUTH TWICE A DAY - Fenofibrate (LOFIBRA) 54 mg tablet Take 1 tablet by mouth once daily. - nitroglycerin sublingual (NITROQUICK) 0.4 mg SL tablet Dissolve 1 tablet under the tongue every 5 minutes as needed. - albuterol HFA (VENTOLIN HFA) 90 mcg/actuation inhaler Inhale 2 Puffs as instructed every 4 hours as needed for wheezing/shortness of breath. - fluticasone (FLONASE) 50 mcg/actuation nasal spray Use 1 [place] in each nostril daily at bedtime. - aspirin, enteric coated (ASPIRIN, ENTERIC COATED) 81 mg EC tablet Take 81 mg by mouth once daily. - senna (SENOKOT) 8.6 mg tab Take 8.6 mg by mouth once daily as needed. - Magnesium 250 mg tab Take 250 mg by mouth once daily. 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] 08/10/2015 Sick sinus syndrome (HCC) [I49.5] 08/10/2015 Permanent atrial fibrillation (HCC) [I48.21] 08/10/2015 Gastrointestinal hemorrhage associated with ang*08/10/2015 Dyslipidemia [E78.5] 08/10/2015 Tobacco use [Z72.0] 08/10/2015 Encounter for monitoring anti-arrhythmic therap*08/10/2015 06/22/2020 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] 08/10/2015 Chronic obstructive pulmonary disease (HCC) [J4*01/29/2016 CKD (chronic kidney disease) [N18.9] 06/19/2016 06/22/2020 Allergic rhinitis [J30.9] 06/19/2016 06/22/2020 Essential hypertension [I10] 06/19/2016 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 [facility] ([id number]) 1935 M Date Time Provider Department 02/28/22 AKILAH ESPINOSA [facility] During your visit today, we recorded the following information about you: Akilah Espinosa PA-C 02/28/2022 8:50 AM Signed POD#1 Attempted to call and check on patient. Went straight to voicemail and mailbox is full. Call office at with any questions or concerns. Akilah Espinosa PA-C February 28, 2022 Allergies As of Date: 02/28/2022 Noted Allergy Reaction DUST 05/29/2017 14 - Other: See Comments GRASS POLLEN 05/29/2017 14 - Other: See Comments MOLD SPORES 05/29/2017 14 - Other: See Comments Date Reviewed: 02/27/2022 Reviewed by: Kristi Ledezma RN - Fully Assessed Reason for Visit: Post Op Call [1185] Prescriptions as of 02/28/2022 - erythromycin (ROMYCIN) 5 mg/gram (0.5 %) ophthalmic ointment Apply 1/2 inch ribbon per application to incision and in eye four times a day X 1 wk then twice a day x 1 wk - ketoconazole (NIZORAL) 2 % cream Apply to affected area twice daily. To the ear for rash - ketoconazole (NIZORAL) 2 % shampoo Apply to affected area once daily as needed for itching/rash. - lisinopril (ZESTRIL, PRINIVIL) 20 mg tablet TAKE 1 TABLET BY MOUTH DAILY - furosemide (LASIX) 20 mg tablet TAKE 1 TABLET BY MOUTH DAILY AFTER BREAKFAST *FOR SWELLING - atorvastatin (LIPITOR) 40 mg tablet Take 1 tablet by mouth once daily. - metoprolol tartrate, short acting, (LOPRESSOR) 100 mg tablet Take 1 tablet by mouth twice daily. - potassium chloride (KLOR-CON 10) 10 mEq tablet Take 1 tablet by mouth once daily. - sertraline (ZOLOFT) 50 mg tablet Take 1 tablet by mouth daily with dinner. - triamcinolone (KENALOG) 0.1 % lotion Apply to affected area three times daily. - viwjazfz-zlizuvwer-fxhy icidin (NEOMYCIN) 1.75 mg-10,000 unit-0.025mg/mL drop Apply 3 drops to each ear twice daily. - jnatcryk-gsqysmnsk-xhzf ocortisone (CORTISPORIN) 3.5-10,000-1 mg/mL-unit/mL-% otic suspension Use 4 Drops in the ears four times daily. - warfarin (COUMADIN) 4 mg tablet Take 1 tablet by mouth once daily. - ELIQUIS 2.5 mg tab(s) TAKE 1 TABLET BY MOUTH TWICE A DAY - Fenofibrate (LOFIBRA) 54 mg tablet Take 1 tablet by mouth once daily. - nitroglycerin sublingual (NITROQUICK) 0.4 mg SL tablet Dissolve 1 tablet under the tongue every 5 minutes as needed. - ezetimibe (ZETIA) 10 mg tablet Take 1 tablet by mouth once daily. - albuterol HFA (VENTOLIN HFA) 90 mcg/actuation inhaler Inhale 2 Puffs as instructed every 4 hours as needed for wheezing/shortness of breath. - fluticasone (FLONASE) 50 mcg/actuation nasal spray Use 1 [place] in each nostril daily at bedtime. - aspirin, enteric coated (ASPIRIN, ENTERIC COATED) 81 mg EC tablet Take 81 mg by mouth once daily. - senna (SENOKOT) 8.6 mg tab Take 8.6 mg by mouth once daily as needed. - Magnesium 250 mg tab Take 250 mg by mouth once daily. 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] 08/10/2015 Sick sinus syndrome (HCC) [I49.5] 08/10/2015 Permanent atrial fibrillation (HCC) [I48.21] 08/10/2015 Gastrointestinal hemorrhage associated with ang*08/10/2015 Dyslipidemia [E78.5] 08/10/2015 Tobacco use [Z72.0] 08/10/2015 Encounter for monitoring anti-arrhythmic therap*08/10/2015 06/22/2020 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] 08/10/2015 Chronic obstructive pulmonary disease (HCC) [J4*01/29/2016 CKD (chronic kidney disease) [N18.9] 06/19/2016 06/22/2020 Allergic rhinitis [J30.9] 06/19/2016 06/22/2020 Essential hypertension [I10] 06/19/2016 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] 12/21/2015 Arteriosclerosis of coronary artery [I25.10] 12/23/2019 Aortic aneurysm (HCC) [I71.9] 06/22/2020 Abnormal cholesterol test [E78.9] 06/22/2020 COPD (chronic obstructive pulmonary disease) (H* 06/22/2020 H/O right heart catheterization [Z98.890] 06/22/2020 High blood pressure [I10] 07/29/2016 History of heart attack [I25.2] 06/22/2020 Neuropathy (HCC) [G62.9] Thrombocytopenia (HCC) [D69.6] Hypertriglyceridemia [E78.1] Low HDL (under 40) [E78.6] 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 [facility] VIRGINIATHANH Nakia ([id number]) 1935 M Date Time Provider Department 02/28/22 ANA MARIA JOLLY [facility] During your visit today, we recorded the following information about you: Hallie Sánchez RN 02/28/2022 9:47 AM Signed ----- Message from Ana Maria Jolly MD sent at 02/28/2022 7:38 AM EST ----- Please call patient - inflammation of a hair follicle. No additional treatment needed. Thanks Hallie Sánchez RN 02/28/2022 9:48 AM Signed Attempted to call patient to inform of results from biopsy on neck. Phone number went straight to voicemail, stating you were unable to leave message. Hallie Sánchez RN Allergies As of Date: 02/28/2022 Noted Allergy Reaction DUST 05/29/2017 14 - Other: See Comments GRASS POLLEN 05/29/2017 14 - Other: See Comments MOLD SPORES 05/29/2017 14 - Other: See Comments Date Reviewed: 02/27/2022 Reviewed by: Kristi Ledezma RN - Fully Assessed Reason for Visit: Post Op Call [1185] Prescriptions as of 02/28/2022 - erythromycin (ROMYCIN) 5 mg/gram (0.5 %) ophthalmic ointment Apply 1/2 inch ribbon per application to incision and in eye four times a day X 1 wk then twice a day x 1 wk - ketoconazole (NIZORAL) 2 % cream Apply to affected area twice daily. To the ear for rash - ketoconazole (NIZORAL) 2 % shampoo Apply to affected area once daily as needed for itching/rash. - lisinopril (ZESTRIL, PRINIVIL) 20 mg tablet TAKE 1 TABLET BY MOUTH DAILY - furosemide (LASIX) 20 mg tablet TAKE 1 TABLET BY MOUTH DAILY AFTER BREAKFAST *FOR SWELLING - atorvastatin (LIPITOR) 40 mg tablet Take 1 tablet by mouth once daily. - metoprolol tartrate, short acting, (LOPRESSOR) 100 mg tablet Take 1 tablet by mouth twice daily. - potassium chloride (KLOR-CON 10) 10 mEq tablet Take 1 tablet by mouth once daily. - sertraline (ZOLOFT) 50 mg tablet Take 1 tablet by mouth daily with dinner. - triamcinolone (KENALOG) 0.1 % lotion Apply to affected area three times daily. - wciyxiyp-qkqvrshif-eqjp icidin (NEOMYCIN) 1.75 mg-10,000 unit-0.025mg/mL drop Apply 3 drops to each ear twice daily. - sesmqqhl-rcivehhtq-zxem ocortisone (CORTISPORIN) 3.5-10,000-1 mg/mL-unit/mL-% otic suspension Use 4 Drops in the ears four times daily. - warfarin (COUMADIN) 4 mg tablet Take 1 tablet by mouth once daily. - ELIQUIS 2.5 mg tab(s) TAKE 1 TABLET BY MOUTH TWICE A DAY - Fenofibrate (LOFIBRA) 54 mg tablet Take 1 tablet by mouth once daily. - nitroglycerin sublingual (NITROQUICK) 0.4 mg SL tablet Dissolve 1 tablet under the tongue every 5 minutes as needed. - ezetimibe (ZETIA) 10 mg tablet Take 1 tablet by mouth once daily. - albuterol HFA (VENTOLIN HFA) 90 mcg/actuation inhaler Inhale 2 Puffs as instructed every 4 hours as needed for wheezing/shortness of breath. - fluticasone (FLONASE) 50 mcg/actuation nasal spray Use 1 [place] in each nostril daily at bedtime. - aspirin, enteric coated (ASPIRIN, ENTERIC COATED) 81 mg EC tablet Take 81 mg by mouth once daily. - senna (SENOKOT) 8.6 mg tab Take 8.6 mg by mouth once daily as needed. - Magnesium 250 mg tab Take 250 mg by mouth once daily. 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] 08/10/2015 Sick sinus syndrome (HCC) [I49.5] 08/10/2015 Permanent atrial fibrillation (HCC) [I48.21] 08/10/2015 Gastrointestinal hemorrhage associated with ang*08/10/2015 Dyslipidemia [E78.5] 08/10/2015 Tobacco use [Z72.0] 08/10/2015 Encounter for monitoring anti-arrhythmic therap*08/10/2015 06/22/2020 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] 08/10/2015 Chronic obstructive pulmonary disease (HCC) [J4*01/29/2016 CKD (chronic kidney disease) [N18.9] 06/19/2016 06/22/2020 Allergic rhinitis [J30.9] 06/19/2016 06/22/2020 Essential hypertension [I10] 06/19/2016 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] 12/21/2015 Arteriosclerosis of coronary artery [I25.10] 12/23/2019 Aortic aneurysm (HCC) [I71.9] 06/22/2020 Abnormal cholesterol test [E78.9] 06/22/2020 COPD (chronic obstructive pulmonary disease) (H* 06/22/2020 H/O right heart catheterization [Z98.890] 06/22/2020 High blood pressure [I10] 07/29/2016 History of heart attack [I25.2] 06/22/2020 Neuropathy (HCC) [G62.9] Thrombocytopenia (HCC) [D69.6] Hypertriglyceridemia [E78.1] Low HDL (under 40) [E78.6] 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 Normal [facility] [place] Tele[place] ([place]) THANH COLEMAN ([id number]) 1935 M Date Time Provider Department 02/28/22 CAMRYN DAVILA During your visit today, we recorded the following information about you: Nupur Rudy Hines 02/28/2022 4:17 PM Signed They'd like to have his post op at the [facility] location on Fri instead of at the [place] Location on Friday. The [facility] schedule is locked. They were looking at coming in anytime after 3:00 for his follow up. Okay to add? Nupur Hines 03/01/2022 8:36 AM Signed Camryn Davila MD You; Jacky Sanchez APRN.HEALTH INFORMATION SPECIALIST; Job Morrison PA-C; Pamela Dave MD; Akilah Espinosa PA-C; Ana Cespedes; Luke Lange Mgr 15 hours ago (4:34 PM) Ok sure ok to add 4:15pm Thanks Jamie [facility] 03/01/2022 8:36 AM Signed Attempted to call the patient back but the mailbox was full and not accepting messages. Nupur [facility] 03/01/2022 1:30 PM Signed His is calling today stating that his bandage came off in bed last night. She tried to put it back on and use the tape, but it's not really staying. What should she do? 's cell: [phone] [place]upur [facility] 03/01/2022 1:56 PM Signed Jacky Sanchez APRN.HEALTH INFORMATION SPECIALIST You; Camryn Davila MD; Job Morrison PA-C; Pamela Dave MD; Akilah Espinosa PA-C 3 minutes ago (1:51 PM) RH I spoke with him and his . They do not want to come out in this weather. I asked if they would like to do a video, she laughed and said no sweetie, I'm sorry, I don't know how to figure that out. So sweet. He says he feels great, no bleeding. I told him to start using the ointment. They are going to send a picture of his eye through Nupur's email. Mana Davila MD You; Job Morrison PA-C; Jacky Sanchez APRN.HEALTH INFORMATION SPECIALIST; Pamela Dave MD; Akilah Espinosa PA-C 14 minutes ago (1:40 PM) Have him come to [place] to see me today Or I think job in [place] Before 2:30pm Allergies As of Date: 02/28/2022 Noted Allergy Reaction DUST 05/29/2017 14 - Other: See Comments GRASS POLLEN 05/29/2017 14 - Other: See Comments MOLD SPORES 05/29/2017 14 - Other: See Comments Date Reviewed: 02/27/2022 Reviewed by: Kristi Ledezma RN - Fully Assessed Reason for Visit: Follow Up [171] Prescriptions as of 03/05/2022 - ezetimibe (ZETIA) 10 mg tablet Take 1 tablet by mouth once daily. - furosemide (LASIX) 20 mg tablet TAKE 1 TABLET BY MOUTH DAILY AFTER BREAKFAST *FOR SWELLING - erythromycin (ROMYCIN) 5 mg/gram (0.5 %) ophthalmic ointment Apply 1/2 inch ribbon per application to incision and in eye four times a day X 1 wk then twice a day x 1 wk - ketoconazole (NIZORAL) 2 % cream Apply to affected area twice daily. To the ear for rash - ketoconazole (NIZORAL) 2 % shampoo Apply to affected area once daily as needed for itching/rash. - lisinopril (ZESTRIL, PRINIVIL) 20 mg tablet TAKE 1 TABLET BY MOUTH DAILY - atorvastatin (LIPITOR) 40 mg tablet Take 1 tablet by mouth once daily. - metoprolol tartrate, short acting, (LOPRESSOR) 100 mg tablet Take 1 tablet by mouth twice daily. - potassium chloride (KLOR-CON 10) 10 mEq tablet Take 1 tablet by mouth once daily. - sertraline (ZOLOFT) 50 mg tablet Take 1 tablet by mouth daily with dinner. - triamcinolone (KENALOG) 0.1 % lotion Apply to affected area three times daily. - ululdddv-xlxudrrrd-ogeb icidin (NEOMYCIN) 1.75 mg-10,000 unit-0.025mg/mL drop Apply 3 drops to each ear twice daily. - lapdesok-snyclicqx-gvpe ocortisone (CORTISPORIN) 3.5-10,000-1 mg/mL-unit/mL-% otic suspension Use 4 Drops in the ears four times daily. - warfarin (COUMADIN) 4 mg tablet Take 1 tablet by mouth once daily. - ELIQUIS 2.5 mg tab(s) TAKE 1 TABLET BY MOUTH TWICE A DAY - Fenofibrate (LOFIBRA) 54 mg tablet Take 1 tablet by mouth once daily. - nitroglycerin sublingual (NITROQUICK) 0.4 mg SL tablet Dissolve 1 tablet under the tongue every 5 minutes as needed. - albuterol HFA (VENTOLIN HFA) 90 mcg/actuation inhaler Inhale 2 Puffs as instructed every 4 hours as needed for wheezing/shortness of breath. - fluticasone (FLONASE) 50 mcg/actuation nasal spray Use 1 [place] in each nostril daily at bedtime. - aspirin, enteric coated (ASPIRIN, ENTERIC COATED) 81 mg EC tablet Take 81 mg by mouth once daily. - senna (SENOKOT) 8.6 mg tab Take 8.6 mg by mouth once daily as needed. - Magnesium 250 mg tab Take 250 mg by mouth once daily. Problem List As Of Date 02/28/2022 Noted Resolved Chronic rhinitis [J31.0] 06/30/2014 Cerumen impaction [H61.20] 06/30/2014 06/22/2020 Chronic otitis externa [H60.60] 06/30/2014 Presence of drug coated stent in left circumfle*08/10/2015 Asymptomatic LV dysfunction [I51.9] 08/10/2015 History of AR (myocardial infarction) [I25.2] 08/10/2015 Stenosis of right (more content not included)... Normal [facility] ANES POSTPROC EVALon 022 ANES POSTPROC EVAL HNO ID: [id number] Author: Juan Carlos Huffman MD Service: Anesthesiology Author Type: Physician Type: Anesthesia Postprocedure Evaluation Filed: 02/27/2022 1:31 PM Note Text: POST ANESTHESIA EVALUATION NOTE : 1935 Procedure Summary Date: 02/27/22 Room / Location: OR / AV OR Anesthesia Start: 1022 Anesthesia Stop: 1135 Procedures: EXCISION/REPAIR EYELID W/ADJACENT TISSUE TRANSFER /UP TO 1/4 LID MARGIN (Left: Eye lid) TRANSFER / REARRANGEMENT ADJACENT TISSUE EYELIDS 10SQCM OR LESS (Left: Eye lid) TEMPORARY CLOSURE OF EYELIDS BY SUTURE (Left: Eye lid) PROBING NASOLACRIMAL DUCT W/ INSERTION LACRIMAL TUBE OR LACRIMAL STENT (Left: Eye lid) GRAFT SKIN FULL THICKNESS FREE, INCL DIRECT CLOSURE DONOR SITE, NOSE, EARS, EYELIDS, AND/OR LIPS; 20 SQ CM OR LESS (Left: Face) Diagnosis: Basal cell carcinoma (BCC) of skin of left lower eyelid including canthus (Basal cell carcinoma (BCC) of skin of left lower eyelid including canthus [C44.1192]) Surgeons: Camryn Davila MD Responsible Provider: Juan Carlos Huffman MD Anesthesia Type: MAC ASA Status: 3 Anesthesia Type: MAC Last Vitals Vitals Value Taken Time BP 141/74 02/27/22 1215 Temp 36.4 ?C (97.6 ?F) 02/27/22 1136 HR SpO2 116 02/27/22 1136 Resp 26 02/27/22 1217 SpO2 96 % 02/27/22 1217 Vitals shown include unvalidated device data. Post Anesthesia Patient Status Patient Evaluation: PACU. PACU/ICU Patient Condition: stable. Anticipated Disposition: phase 2 then home. Neurological Status: aware and responsive. Pulmonary Status: breathing comfortably on room air Airway Control: returned to baseline unsupported. Cardiovascular Status: stable. Pain Management: satisfactory to patient Postoperative Hydration: acceptable. Intraoperative Events: no significant anesthesia events Recommendation: continue current plan of care. Anesthesia Observations No Documentation SIGNATURE: Juan Carlos Huffman MD PATIENT NAME: Thanh Coleman DATE: February 27, 2022 TIME: 1:31 PM CSN: [id number] [facility] ANES PRE-OPon 02-27-2022 ANES PRE-OP HNO ID: [id number] Author: Juan Carlos Huffman MD Service: Anesthesiology Author Type: Physician Type: Anesthesia Preprocedure Evaluation Filed: 02/27/2022 9:24 AM Note Text: ANESTHESIOLOGY DAY OF SURGERY NOTE : 1935 Procedure Information Date/Time: 02/27/22 1005 Procedures: EXCISION/REPAIR EYELID W/ADJACENT TISSUE TRANSFER /UP TO 1/4 LID MARGIN (Left: Eye lid) TRANSFER / REARRANGEMENT ADJACENT TISSUE EYELIDS 10SQCM OR LESS (Left: Eye lid) TEMPORARY CLOSURE OF EYELIDS BY SUTURE (Left: Eye lid) PROBING NASOLACRIMAL DUCT W/ INSERTION LACRIMAL TUBE OR LACRIMAL STENT (Left: Eye lid) GRAFT SKIN FULL THICKNESS FREE, INCL DIRECT CLOSURE DONOR SITE, NOSE, EARS, EYELIDS, AND/OR LIPS; 20 SQ CM OR LESS (Left: Face) Location: AV OR / AV OR Surgeons: Camryn Davila MD Estimated body mass index is 30.42 kg/m? as calculated from the following: Height as of 04/23/21: 177.8 cm (5' 10 ). Weight as of this encounter: 96.2 kg (212 lb). Most recent hematocrit and potassium results: HCT 48.5 01/07/2022 K 4.5 01/07/2022 Relevant Problems CARDIO (+) Arteriosclerosis of coronary artery (+) Atrial fibrillation, persistent (HCC) (+) Atrial flutter (HCC) (+) Chronic combined systolic and diastolic congestive heart failure (HCC) (+) Essential hypertension (+) Permanent atrial fibrillation (HCC) (+) Presence of cardiac pacemaker (+) Presence of drug coated stent in left circumflex coronary artery (+) Sick sinus syndrome (HCC) (+) Stenosis of right carotid artery -RENAL (+) Hypertensive chronic kidney disease with stage 1 through stage 4 chronic kidney disease, or unspecified chronic kidney disease (+) 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 Tracheostomy tube not present Mallampati: II. TM distance: >3 FB. Neck ROM: full. Mouth opening: adequate. Short neck: no. Thick neck: no Weathers present: no DENTAL Normal dental observations. Dental findings: teeth intact. Additional exam findings: no II - ANESTHESIA PLAN ASA Score: 3 Anesthetic Plan: MAC NPO Status: adequate Beta Isha Monitoring Plan Monitoring plan: Standard ASA. Post Procedure Analgesic Plan Postoperative analgesic plan: parenteral or oral opioids. Informed Consent Anesthetic risks, benefits, alternatives, personnel and consent discussed: yes. Patient / Responsible Constitution Party agrees to proceed: yes Patient / Surrogate agrees to blood products: blood products not planned Significant changes in the patient condition since the History and Physical, not otherwise documented in primary service progress note: no. Potential Anesthesia issues that may suggest increased risk of complications or contraindication to planned procedure: none. Vitals Value Taken Time BP Pulse 111 02/27/22 0857 Resp 18 02/27/22 0857 Temp 36.1 ?C (97 ?F) 02/27/22 0857 SpO2 99 % 02/27/22 0857 Facility-Administered Medications as of 02/27/2022 Medication Dose Route Frequency - lactated ringers iv infusion 30 mL/hr INTRAVENOUS CONTINUOUS - ceFAZolin iv piggyback 2 g in D5W (iso-osmotic) 100 mL (ANCEF) 2 g INTRAVENOUS ONCE Outpatient Medications as of 02/27/2022 Medication Sig - ketoconazole (NIZORAL) 2 % cream Apply to affected area twice daily. To the ear for rash - ketoconazole (NIZORAL) 2 % shampoo Apply to affected area once daily as needed for itching/rash. - lisinopril (ZESTRIL, PRINIVIL) 20 mg tablet TAKE 1 TABLET BY MOUTH DAILY - furosemide (LASIX) 20 mg tablet TAKE 1 TABLET BY MOUTH DAILY AFTER BREAKFAST *FOR SWELLING - atorvastatin (LIPITOR) 40 mg tablet Take 1 tablet by mouth once daily. - metoprolol tartrate, short acting, (LOPRESSOR) 100 mg tablet Take 1 tablet by mouth twice daily. - potassium chloride (KLOR-CON 10) 10 mEq tablet Take 1 tablet by mouth once daily. - sertraline (ZOLOFT) 50 mg tablet Take 1 tablet by mouth daily with dinner. - triamcinolone (KENALOG) 0.1 % lotion Apply to affected area three times daily. - gfudybpe-rxsdnhatx-ibty icidin (NEOMYCIN) 1.75 mg-10,000 unit-0.025mg/mL drop Apply 3 drops to each ear twice daily. - inumfaoy-invpwwqba-ooet ocortisone (CORTISPORIN) 3.5-10,000-1 mg/mL-unit/mL-% otic suspension Use 4 Drops in the ears four times daily. - warfarin (COUMADIN) 4 mg tablet Take 1 tablet by mouth once daily. - ELIQUIS 2.5 mg tab(s) TAKE 1 TABLET BY MOUTH TWICE A DAY - Fenofibrate (LOFIBRA) 54 mg tablet Take 1 tablet by mouth once daily. - nitroglycerin sublingual (NITROQUICK) 0.4 mg SL tablet Dissolve 1 tablet under the tongue every 5 minutes as needed. - ezetimibe (ZETIA) 10 mg tablet Take 1 tablet by mouth once daily. (more content not included)... [facility] BRIEF OP NOTon 02-27-2022 BRIEF OP NOT HNO ID: [id number] Author: Camryn Davila MD Service: Ophthalmology Author Type: Physician Type: Brief Op Note Filed: 02/27/2022 11:30 AM Note Text: BRIEF OP NOTE LOG ID: [id number] Surgery/Procedure Date: 02/27/2022 Incision/Procedure Start Time: 10:35 AM Incision Close/Procedure End Time: 11:28AM Surgeon(s)/Proceduralis t(s) and Director Of Leadership Development(s): Surgeon(s) and Role: * Camryn Davila MD - Primary * Benita Mccormack MD - Resident - Assisting * Pamela Dave MD - Resident - Assisting Procedure(s): left lower lid mohs reconstruction with horizontal eyelid tightening, skin graft from right postauricular Anesthesia: Monitored Anesthesia Care Findings: Mohs defect left lower medial eyelid Estimated Blood Loss: <10 cc Specimens: None Complications: None Pre-Op/Pre-Procedure Diagnosis: mohs defect left lower lid medial and ectropion Post-Op/Post-Procedure Diagnosis: same SIGNATURE: Camryn Davila MD PATIENT NAME: Thanh Keens DATE: February 27, 2022 TIME: PAGER/CONTACT #: [facility] VIRGINIATHANH Shelton ([id number]) 1935 M Date Time Provider Department 02/27/22 JAYJAY SWEENEY During your visit today, we recorded the following information about you: Ana Thomas RN 02/27/2022 12:13 PM Signed Called patient, no answer, unable to leave message, will attempt again later. Per Dr Sweeney: BB This pt's PPM was at the elective replacement interval (KYLAH) as of September 2021. Typically we estimate 3 month of battery left at that point. Our last communication with him was as follows: KYLAH was triggered on 10/02/21. Patient was previously scheduled for a change out, then canceled in favor of having device change done locally. Called patient today and he reports having an appointment on 12/03/21 with a local EP. Apparently this was not done. Can you check with him to see what is going on and if he wants the PPM change to be rescheduled with us. thanks bb Ana Thomas RN 02/28/2022 4:50 PM Signed Called patient, no answer, unable to leave message, will attempt again later. Ana Thomas RN 03/01/2022 3:22 PM Signed Spoke to patient who reports getting device done locally, he thinks at [place]. Patient asks if he still needs home monitor from old device. Recommended following up with whoever placed device to obtain new home monitor. Ana Thomas RN Allergies As of Date: 02/27/2022 Noted Allergy Reaction DUST 05/29/2017 14 - Other: See Comments GRASS POLLEN 05/29/2017 14 - Other: See Comments MOLD SPORES 05/29/2017 14 - Other: See Comments Date Reviewed: 02/27/2022 Reviewed by: Kristi Ledezma RN - Fully Assessed Reason for Visit: Patient Update [1234] Prescriptions as of 03/01/2022 - erythromycin (ROMYCIN) 5 mg/gram (0.5 %) ophthalmic ointment Apply 1/2 inch ribbon per application to incision and in eye four times a day X 1 wk then twice a day x 1 wk - ketoconazole (NIZORAL) 2 % cream Apply to affected area twice daily. To the ear for rash - ketoconazole (NIZORAL) 2 % shampoo Apply to affected area once daily as needed for itching/rash. - lisinopril (ZESTRIL, PRINIVIL) 20 mg tablet TAKE 1 TABLET BY MOUTH DAILY - furosemide (LASIX) 20 mg tablet TAKE 1 TABLET BY MOUTH DAILY AFTER BREAKFAST *FOR SWELLING - atorvastatin (LIPITOR) 40 mg tablet Take 1 tablet by mouth once daily. - metoprolol tartrate, short acting, (LOPRESSOR) 100 mg tablet Take 1 tablet by mouth twice daily. - potassium chloride (KLOR-CON 10) 10 mEq tablet Take 1 tablet by mouth once daily. - sertraline (ZOLOFT) 50 mg tablet Take 1 tablet by mouth daily with dinner. - triamcinolone (KENALOG) 0.1 % lotion Apply to affected area three times daily. - zjxkhhmz-zujphixia-yiyj icidin (NEOMYCIN) 1.75 mg-10,000 unit-0.025mg/mL drop Apply 3 drops to each ear twice daily. - csxfdzlx-rvawfldoe-zjxj ocortisone (CORTISPORIN) 3.5-10,000-1 mg/mL-unit/mL-% otic suspension Use 4 Drops in the ears four times daily. - warfarin (COUMADIN) 4 mg tablet Take 1 tablet by mouth once daily. - ELIQUIS 2.5 mg tab(s) TAKE 1 TABLET BY MOUTH TWICE A DAY - Fenofibrate (LOFIBRA) 54 mg tablet Take 1 tablet by mouth once daily. - nitroglycerin sublingual (NITROQUICK) 0.4 mg SL tablet Dissolve 1 tablet under the tongue every 5 minutes as needed. - ezetimibe (ZETIA) 10 mg tablet Take 1 tablet by mouth once daily. - albuterol HFA (VENTOLIN HFA) 90 mcg/actuation inhaler Inhale 2 Puffs as instructed every 4 hours as needed for wheezing/shortness of breath. - fluticasone (FLONASE) 50 mcg/actuation nasal spray Use 1 [place] in each nostril daily at bedtime. - aspirin, enteric coated (ASPIRIN, ENTERIC COATED) 81 mg EC tablet Take 81 mg by mouth once daily. - senna (SENOKOT) 8.6 mg tab Take 8.6 mg by mouth once daily as needed. - Magnesium 250 mg tab Take 250 mg by mouth once daily. Problem List As Of Date 02/27/2022 Noted Resolved Chronic rhinitis [J31.0] 06/30/2014 Cerumen impaction [H61.20] 06/30/2014 06/22/2020 Chronic otitis externa [H60.60] 06/30/2014 Presence of drug coated stent in left circumfle*08/10/2015 Asymptomatic LV dysfunction [I51.9] 08/10/2015 History of AR (myocardial infarction) [I25.2] 08/10/2015 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] 08/10/2015 S/P insertion of iliac artery stent [Z95.828] 08/10/2015 Presence of cardiac pacemaker [Z95.0] 08/10/2015 Sick sinus syndrome (HCC) [I49.5] 08/10/2015 Permanent atrial fibrillation (HCC) [I48.21] 08/10/2015 Gastrointestinal hemorrhage associated with ang*08/10/2015 Dyslipidemia [E78.5] 08/10/2015 Tobacco use [Z72.0] 08/10/2015 Encounter for monitoring anti-arrhythmic therap*08/10/2015 06/22/2020 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] 08/10/2015 Chronic obstructive pulmonary disease (HCC) [J4*01/29/2016 CKD (chronic kidney disease) [N18.9] 06/19/2016 06/22/2020 (more content not included)... [facility] CNPN Telephone (OPHTMN) THANH COLEMAN ([id number]) 1935 M Date Time Provider Department 02/27/22 PAMELA DIAZ During your visit today, we recorded the following information about you: Pamela Dave MD 02/27/2022 8:39 PM Signed Called patient re: restarting Eliquis after oculoplastic surgery earlier today. Informed patient that he should restart it 2 days after surgery. He understood. Allergies As of Date: 02/27/2022 Noted Allergy Reaction DUST 05/29/2017 14 - Other: See Comments GRASS POLLEN 05/29/2017 14 - Other: See Comments MOLD SPORES 05/29/2017 14 - Other: See Comments Date Reviewed: 02/27/2022 Reviewed by: Kristi Ledezma RN - Fully Assessed Reason for Visit: Medication Problem [65] Prescriptions as of 02/27/2022 - erythromycin (ROMYCIN) 5 mg/gram (0.5 %) ophthalmic ointment Apply 1/2 inch ribbon per application to incision and in eye four times a day X 1 wk then twice a day x 1 wk - ketoconazole (NIZORAL) 2 % cream Apply to affected area twice daily. To the ear for rash - ketoconazole (NIZORAL) 2 % shampoo Apply to affected area once daily as needed for itching/rash. - lisinopril (ZESTRIL, PRINIVIL) 20 mg tablet TAKE 1 TABLET BY MOUTH DAILY - furosemide (LASIX) 20 mg tablet TAKE 1 TABLET BY MOUTH DAILY AFTER BREAKFAST *FOR SWELLING - atorvastatin (LIPITOR) 40 mg tablet Take 1 tablet by mouth once daily. - metoprolol tartrate, short acting, (LOPRESSOR) 100 mg tablet Take 1 tablet by mouth twice daily. - potassium chloride (KLOR-CON 10) 10 mEq tablet Take 1 tablet by mouth once daily. - sertraline (ZOLOFT) 50 mg tablet Take 1 tablet by mouth daily with dinner. - triamcinolone (KENALOG) 0.1 % lotion Apply to affected area three times daily. - qxqsvyrs-ccsxmwxyx-btvu icidin (NEOMYCIN) 1.75 mg-10,000 unit-0.025mg/mL drop Apply 3 drops to each ear twice daily. - jahbjkzk-zfuarcmbl-yxuy ocortisone (CORTISPORIN) 3.5-10,000-1 mg/mL-unit/mL-% otic suspension Use 4 Drops in the ears four times daily. - warfarin (COUMADIN) 4 mg tablet Take 1 tablet by mouth once daily. - ELIQUIS 2.5 mg tab(s) TAKE 1 TABLET BY MOUTH TWICE A DAY - Fenofibrate (LOFIBRA) 54 mg tablet Take 1 tablet by mouth once daily. - nitroglycerin sublingual (NITROQUICK) 0.4 mg SL tablet Dissolve 1 tablet under the tongue every 5 minutes as needed. - ezetimibe (ZETIA) 10 mg tablet Take 1 tablet by mouth once daily. - albuterol HFA (VENTOLIN HFA) 90 mcg/actuation inhaler Inhale 2 Puffs as instructed every 4 hours as needed for wheezing/shortness of breath. - fluticasone (FLONASE) 50 mcg/actuation nasal spray Use 1 [place] in each nostril daily at bedtime. - aspirin, enteric coated (ASPIRIN, ENTERIC COATED) 81 mg EC tablet Take 81 mg by mouth once daily. - senna (SENOKOT) 8.6 mg tab Take 8.6 mg by mouth once daily as needed. - Magnesium 250 mg tab Take 250 mg by mouth once daily. Problem List As Of Date 02/27/2022 Noted Resolved Chronic rhinitis [J31.0] 06/30/2014 Cerumen impaction [H61.20] 06/30/2014 06/22/2020 Chronic otitis externa [H60.60] 06/30/2014 Presence of drug coated stent in left circumfle*08/10/2015 Asymptomatic LV dysfunction [I51.9] 08/10/2015 History of AR (myocardial infarction) [I25.2] 08/10/2015 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] 08/10/2015 S/P insertion of iliac artery stent [Z95.828] 08/10/2015 Presence of cardiac pacemaker [Z95.0] 08/10/2015 Sick sinus syndrome (HCC) [I49.5] 08/10/2015 Permanent atrial fibrillation (HCC) [I48.21] 08/10/2015 Gastrointestinal hemorrhage associated with ang*08/10/2015 Dyslipidemia [E78.5] 08/10/2015 Tobacco use [Z72.0] 08/10/2015 Encounter for monitoring anti-arrhythmic therap*08/10/2015 06/22/2020 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] 08/10/2015 Chronic obstructive pulmonary disease (HCC) [J4*01/29/2016 CKD (chronic kidney disease) [N18.9] 06/19/2016 06/22/2020 Allergic rhinitis [J30.9] 06/19/2016 06/22/2020 Essential hypertension [I10] 06/19/2016 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] 12/21/2015 Arteriosclerosis of coronary artery [I25.10] 12/23/2019 Aortic aneurysm (HCC) [I71.9] 06/22/2020 Abnormal cholesterol test [E78.9] 06/22/2020 COPD (chronic obstructive pulmonary disease) (H* 06/22/2020 H/O right heart catheterization [Z98.890] 06/22/2020 High blood pressure [I10] 07/29/2016 History of heart attack [I25.2] 06/22/2020 Neuropathy (HCC) [G62.9] Thrombocytopenia (HCC) [D69.6] Hypertriglyceridemia [E78.1] Low HDL (under 40) [E78.6] 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]07/29/2016 06/22/2020 History of abdominal aortic aneurysm repair [Z9*07/29/2016 06/22/2020 COPD (chronic obstructive pulmonary disease) wi*07/08/2017 Chronic seasonal allergic rhinitis due to polle*07/08/2017 Stage 3 chronic kidney disease (HCC) [N18.30] 10/08/2017 06/22/2020 Coronary a (more content not included)... [facility] CNPN Telephone (OPHTMN) VIRGINIATHANH Yee ([id number]) 1935 M Date Time Provider Department 02/27/22 BENITA MCCORMACK During your visit today, we recorded the following information about you: Benita Mccormack MD 02/27/2022 2:24 PM Signed Called senior oracle developer ([place], [place]) to discuss patient's post-op instructions for resuming anticoagulation. Patient's legislative director is Dr. Shen. Discussed with Bee Flores RN, one of Dr. Shen's nurses. Patient reported he is taking both Eliquis and Coumadin. Per Bee, patient should only be taking Eliquis 2.5mg BID. OK for patient to hold Eliquis for 5 days after surgery. Called patient to discuss. However, voicemail box was full. Attempted call to Priyanka Tenorio, other point of contact for patient, however voicemail unavailable. Will call again later. Benita Mccormack MD Ophthalmology Resident Allergies As of Date: 02/27/2022 Noted Allergy Reaction DUST 05/29/2017 14 - Other: See Comments GRASS POLLEN 05/29/2017 14 - Other: See Comments MOLD SPORES 05/29/2017 14 - Other: See Comments Date Reviewed: 02/27/2022 Reviewed by: Kristi Ledezma RN - Fully Assessed Reason for Visit: Post-op Instructions [Other] Prescriptions as of 02/27/2022 - erythromycin (ROMYCIN) 5 mg/gram (0.5 %) ophthalmic ointment Apply 1/2 inch ribbon per application to incision and in eye four times a day X 1 wk then twice a day x 1 wk - ketoconazole (NIZORAL) 2 % cream Apply to affected area twice daily. To the ear for rash - ketoconazole (NIZORAL) 2 % shampoo Apply to affected area once daily as needed for itching/rash. - lisinopril (ZESTRIL, PRINIVIL) 20 mg tablet TAKE 1 TABLET BY MOUTH DAILY - furosemide (LASIX) 20 mg tablet TAKE 1 TABLET BY MOUTH DAILY AFTER BREAKFAST *FOR SWELLING - atorvastatin (LIPITOR) 40 mg tablet Take 1 tablet by mouth once daily. - metoprolol tartrate, short acting, (LOPRESSOR) 100 mg tablet Take 1 tablet by mouth twice daily. - potassium chloride (KLOR-CON 10) 10 mEq tablet Take 1 tablet by mouth once daily. - sertraline (ZOLOFT) 50 mg tablet Take 1 tablet by mouth daily with dinner. - triamcinolone (KENALOG) 0.1 % lotion Apply to affected area three times daily. - ejyxxgvx-jonehwcid-wauy icidin (NEOMYCIN) 1.75 mg-10,000 unit-0.025mg/mL drop Apply 3 drops to each ear twice daily. - mujwjjgn-eyypcbxqk-sjbh ocortisone (CORTISPORIN) 3.5-10,000-1 mg/mL-unit/mL-% otic suspension Use 4 Drops in the ears four times daily. - warfarin (COUMADIN) 4 mg tablet Take 1 tablet by mouth once daily. - ELIQUIS 2.5 mg tab(s) TAKE 1 TABLET BY MOUTH TWICE A DAY - Fenofibrate (LOFIBRA) 54 mg tablet Take 1 tablet by mouth once daily. - nitroglycerin sublingual (NITROQUICK) 0.4 mg SL tablet Dissolve 1 tablet under the tongue every 5 minutes as needed. - ezetimibe (ZETIA) 10 mg tablet Take 1 tablet by mouth once daily. - albuterol HFA (VENTOLIN HFA) 90 mcg/actuation inhaler Inhale 2 Puffs as instructed every 4 hours as needed for wheezing/shortness of breath. - fluticasone (FLONASE) 50 mcg/actuation nasal spray Use 1 [place] in each nostril daily at bedtime. - aspirin, enteric coated (ASPIRIN, ENTERIC COATED) 81 mg EC tablet Take 81 mg by mouth once daily. - senna (SENOKOT) 8.6 mg tab Take 8.6 mg by mouth once daily as needed. - Magnesium 250 mg tab Take 250 mg by mouth once daily. Facility-Administered Medications as of 02/27/2022 - fentaNYL 50 mcg/mL 50 mcg injection (SUBLIMAZE) - HYDROmorphone 0.5 mg injection (DILAUDID) - oxyCODONE-acetaminophen 5-325 mg 1-2 tablet (PERCOCET) - ondansetron 4 mg tab(s) (ZOFRAN) - ondansetron (PF) 4 mg injection (ZOFRAN) - prochlorperazine 10 mg injection (COMPAZINE) - meperidine (PF) 12.5 mg injection (DEMEROL) - acetaminophen 650 mg tab(s) (TYLENOL) Problem List As Of Date 02/27/2022 Noted Resolved Chronic rhinitis [J31.0] 06/30/2014 Cerumen impaction [H61.20] 06/30/2014 06/22/2020 Chronic otitis externa [H60.60] 06/30/2014 Presence of drug coated stent in left circumfle*08/10/2015 Asymptomatic LV dysfunction [I51.9] 08/10/2015 History of AR (myocardial infarction) [I25.2] 08/10/2015 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] 08/10/2015 S/P insertion of iliac artery stent [Z95.828] 08/10/2015 Presence of cardiac pacemaker [Z95.0] 08/10/2015 Sick sinus syndrome (HCC) [I49.5] 08/10/2015 Permanent atrial fibrillation (HCC) [I48.21] 08/10/2015 Gastrointestinal hemorrhage associated with ang*08/10/2015 Dyslipidemia [E78.5] 08/10/2015 Tobacco use [Z72.0] 08/10/2015 Encounter for monitoring anti-arrhythmic therap*08/10/2015 06/22/2020 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] 08/10/2015 Chronic obstructive pulmonary disease (HCC) [J4*01/29/2016 CKD (chronic kidney disease) [N18.9] 06/19/2016 06/22/2020 Allergic rhinitis [J30.9] 06/19/2016 06/22/2020 Essential hypertension [I10] 06/19/2016 S (more content not included)... [facility] HISTORY PHYSICALon HISTORY PHYSICAL HNO ID: [id number] Author: Benita Mccormack MD Service: Ophthalmology Author Type: Resident Type: HANDP Filed: 02/27/2022 10:12 AM Note Text: Attestation signed by Camryn Davila MD at 02/27/2022 10:26 AM This is a resident/fellow only encounter. I have reviewed the chart and agree with the assessment and plan as stated above and agree with all of its relevant components. Pre-Operative History and Physical CC: pre-operative history and physical exam HPI: A 86 year old male will be undergoing left lower eyelid Mohs reconstruction. Functional Status: Can climb two flights of stairs without getting short of breath. 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 CV: Denies angina, recent AR/PCI/CABG, dyspnea on exertion, peripheral edema Abdomen: Denies diarrhea, constipation, melena, hematemesis, ascities Endo: Denies recent steroid use and diabetes Hematologic: Denies easy bruising/bleeding, antiplatelet/anticoagul ation use. Denies history of cancer. PMH PAST MEDICAL HISTORY Diagnosis Date Abnormal cholesterol test Anticoagulant long-term use Aortic aneurysm (HCC) s/p repair AAA Arteriosclerosis of coronary artery 12/23/2019 pacemaker, hyperlipidemia, hyperlipidemia At risk for stroke Atrial flutter ([facility]) 03/03/2020 CAD (coronary artery disease) pacemaker, hyperlipidemia, hyperlipidemia Chronic combined systolic and diastolic congestive heart failure (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) 12/2015 COPD (chronic obstructive pulmonary disease) (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) 07/02/2021 Hypertriglyceridemia Low HDL (under 40) Neuropathy Palpitations 12/23/2019 Permanent atrial fibrillation ([facility]) 08/10/2015 Presence of cardiac pacemaker 08/10/2015 Presence of drug coated stent in left circumflex coronary artery 08/10/2015 Sick sinus syndrome ([facility]) 08/10/2015 Stage 3b chronic kidney disease ([facility]) 12/21/2015 TB (pulmonary tuberculosis) Thrombocytopenia ([facility]) PSH PAST SURGICAL HISTORY Procedure Laterality Date ABD AORTIC ANEURYSM REPAIR CORONARY STENT EA VESSEL 3-2008 x 2, drug eluting ILIAC SLEEPING BAG FILLER W/WO STENT PACEMAKER DUAL CHAMBER TIER 0 4-2012 PAST SURGICAL HISTORY OF resection lobe of lung,,AAA SOCIAL HISTORY Social History Tobacco Use Smoking status: Every Day Types: Cigarettes Smokeless tobacco: Never Tobacco comments: PK EVERY 3 DAYS Vaping Use Vaping Use: Former Substances: Nicotine Devices: Disposable Substance Use Topics Alcohol use: No Drug use: No MEDICATIONS Prior to Admission erythromycin (ROMYCIN) 5 mg/gram (0.5 %) ophthalmic ointmentApply 1/2 inch ribbon per application to incision and in eye four times a day X 1 wk then twice a day x 1 wkDisp: 7 gRfl: 2 ketoconazole (NIZORAL) 2 % creamApply to affected area twice daily. To the ear for rashDisp: 30 gRfl: 1 ketoconazole (NIZORAL) 2 % shampooApply to affected area once daily as needed for itching/rash.Disp: 120 mLRfl: 1 lisinopril (ZESTRIL, PRINIVIL) 20 mg tabletTAKE 1 TABLET BY MOUTH DAILYDisp: 28 tabletRfl: 3 furosemide (LASIX) 20 mg tabletTAKE 1 TABLET BY MOUTH DAILY AFTER BREAKFAST *FOR SWELLINGDisp: 30 tabletRfl: 2 atorvastatin (LIPITOR) 40 mg tabletTake 1 tablet by mouth once daily.Disp: 90 tabletRfl: 3 metoprolol tartrate, short acting, (LOPRESSOR) 100 mg tabletTake 1 tablet by mouth twice daily.Disp: 180 tabletRfl: 3 potassium chloride (KLOR-CON 10) 10 mEq tabletTake 1 tablet by mouth once daily.Disp: 30 tabletRfl: 11 sertraline (ZOLOFT) 50 mg tabletTake 1 tablet by mouth daily with dinner.Disp: 90 tabletRfl: 1 triamcinolone (KENALOG) 0.1 % lotionApply to affected area three times daily.Disp: 60 mLRfl: 2 vxvaoruh-eanwamsqw-zzon icidin (NEOMYCIN) 1.75 mg-10,000 unit-0.025mg/mL dropApply 3 drops to each ear twice daily.Disp: 10 mLRfl: 2 xmsdrecw-uypojcfoo-ejhi ocortisone (CORTISPORIN) 3.5-10,000-1 mg/mL-unit/mL-% otic suspensionUse 4 Drops in the ears four times daily.Disp: 10 mLRfl: 2 warf (more content not included)... [facility] HISTORY PHYSICAL HNO ID: [id number] Author: Pallavi Barrett PA-C Service: ? Author Type: Physician Director Of Leadership Development Type: HANDP Filed: 02/27/2022 10:10 AM Note Text: Preoperative HISTORY AND PHYSICAL EXAM SERVICE DATE: 02/27/2022 SERVICE TIME: 9:04 AM Subjective HPI: Patient is a 86 year old male who is a poor historian presents for excision of BCC of left lower eyelid. Denies any pain or other skin changes besides Mohs procedure yesterday. PAST MEDICAL HISTORY Diagnosis Date Abnormal cholesterol test Anticoagulant long-term use Aortic aneurysm (HCC) s/p repair AAA Arteriosclerosis of coronary artery 12/23/2019 pacemaker, hyperlipidemia, hyperlipidemia At risk for stroke Atrial flutter ([facility]) 03/03/2020 CAD (coronary artery disease) pacemaker, hyperlipidemia, hyperlipidemia Chronic combined systolic and diastolic congestive heart failure (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) 12/2015 COPD (chronic obstructive pulmonary disease) (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) 07/02/2021 Hypertriglyceridemia Low HDL (under 40) Neuropathy Palpitations 12/23/2019 Permanent atrial fibrillation ([facility]) 08/10/2015 Presence of cardiac pacemaker 08/10/2015 Presence of drug coated stent in left circumflex coronary artery 08/10/2015 Sick sinus syndrome ([facility]) 08/10/2015 Stage 3b chronic kidney disease ([facility]) 12/21/2015 TB (pulmonary tuberculosis) Thrombocytopenia ([facility]) PAST SURGICAL HISTORY Procedure Laterality Date ABD AORTIC ANEURYSM REPAIR CORONARY STENT EA VESSEL 3-2008 x 2, drug eluting ILIAC SLEEPING BAG FILLER W/WO STENT PACEMAKER DUAL CHAMBER TIER 0 4-2012 PAST SURGICAL HISTORY OF resection lobe of lung,,AAA FAMILY HISTORY Problem Relation Age of Onset No Ocular Disease Mother other (TB) Mother Stroke Father No Ocular Disease Father Cancer Brother Kidney Disease Sister Social History Tobacco Use Smoking status: Every Day Types: Cigarettes Smokeless tobacco: Never Tobacco comments: PK EVERY 3 DAYS Vaping Use Vaping Use: Former Substances: Nicotine Devices: Disposable Substance Use Topics Alcohol use: No Drug use: No No current facility-administered medications on file prior to encounter. Current Outpatient Medications on File Prior to Encounter Medication Sig ketoconazole (NIZORAL) 2 % cream Apply to affected area twice daily. To the ear for rash ketoconazole (NIZORAL) 2 % shampoo Apply to affected area once daily as needed for itching/rash. lisinopril (ZESTRIL, PRINIVIL) 20 mg tablet TAKE 1 TABLET BY MOUTH DAILY furosemide (LASIX) 20 mg tablet TAKE 1 TABLET BY MOUTH DAILY AFTER BREAKFAST *FOR SWELLING atorvastatin (LIPITOR) 40 mg tablet Take 1 tablet by mouth once daily. metoprolol tartrate, short acting, (LOPRESSOR) 100 mg tablet Take 1 tablet by mouth twice daily. potassium chloride (KLOR-CON 10) 10 mEq tablet Take 1 tablet by mouth once daily. sertraline (ZOLOFT) 50 mg tablet Take 1 tablet by mouth daily with dinner. triamcinolone (KENALOG) 0.1 % lotion Apply to affected area three times daily. qbxeguct-dxpocbcnv-fuak icidin (NEOMYCIN) 1.75 mg-10,000 unit-0.025mg/mL drop Apply 3 drops to each ear twice daily. kmrvjqxp-acpvqsibl-kmpg ocortisone (CORTISPORIN) 3.5-10,000-1 mg/mL-unit/mL-% otic suspension Use 4 Drops in the ears four times daily. warfarin (COUMADIN) 4 mg tablet Take 1 tablet by mouth once daily. ELIQUIS 2.5 mg tab(s) TAKE 1 TABLET BY MOUTH TWICE A DAY Fenofibrate (LOFIBRA) 54 mg tablet Take 1 tablet by mouth once daily. nitroglycerin sublingual (NITROQUICK) 0.4 mg SL tablet Dissolve 1 tablet under the tongue every 5 minutes as needed. ezetimibe (ZETIA) 10 mg tablet Take 1 tablet by mouth once daily. albuterol HFA (VENTOLIN HFA) 90 mcg/actuation inhaler Inhale 2 Puffs as instructed every 4 hours as needed for wheezing/shortness of breath. fluticasone (FLONASE) 50 mcg/actuation nasal spray Use 1 [place] in each nostril daily at bedtime. aspirin, enteric coated (ASPIRIN, ENTERIC COATED) 81 mg EC tablet Take 81 mg by mouth once daily. senna (SENOKOT) 8.6 mg tab Take 8.6 mg by mouth once daily as needed. Magnesium 250 mg tab Take 250 mg by mouth once daily. ALLERGIES Allergen Reactions Dust Other: See Comments Grass Pollen Other: See Comments Mold Spores Other: See Comments REVIEW (more content not included)... [facility] OPERATIVE NOon 02-27-2022 OPERATIVE NO HNO ID: [id number] Author: Camryn Davila MD Service: Ophthalmology Author Type: Physician Type: Operative Report Filed: 02/27/2022 11:42 AM Note Text: OPERATIVE/PROCEDURE REPORT LOG ID: [id number] Surgery/Procedure Date: 02/27/2022 Incision/Procedure Start Time: 10:35 AM Incision Close/Procedure End Time: 11:28 AM Surgeon(s)/Proceduralis t(s) and Director Of Leadership Development(s): Surgeon(s) and Role: * Camryn Davila MD - Primary * Benita Mccormack MD - Resident - Assisting * Pamela Dave MD - Resident - Assisting No Additional Staff Preoperative Diagnosis: left lower lid medial defect after excision of cutaneous malignancy initial defect 3.0 x 1.2 cm , left lower lid ectropion Postoperative Diagnosis: SAME Procedure(s): right postauricular full thickness skin graft 3 x 1.2 cm to left lower lid adjacent tissue transfer flap right postauricular 4x2cm Left full thickness excision and repair greater than one-quarter mohs repair left lower lid medial initial defect 3.0 x 1.2 cm, left lower lid horizontal tightening > 1/4 eyelid, full thickness skin graft from right postauricular for Basal cell carcinoma Procedure indication(s): -The patient requires a full thickness skin graft to correct a left lower lid medial full thickness defect. -The patient requires adjacent tissue transpfer flap postauricular 4x2cm (8 cm2) to close the postauricular site that could not be close primarily. The patient requires full thickness excision and repair left lower lid to repair a full thickness eyelid defect Anesthesia: [facility] Procedure Details: After the risks and benefits of the planned procedure were explained to the patient, fully informed consent was obtained. The patient was then identified by the attending surgeon, Dr. Camryn Davila, and taken to the operating room, where a sign-in and time-out was performed. Local anesthesia was achieved with a total of approximately 4 mL of 2% lidocaine with 1:100,000 epinephrine containing 50 units per 10 mL of hyaluronidase solution. The patient was then prepped and draped in standard sterile fashion. Patient had a defect of the left lower lid that could not be closed primarily. In addition patient had mohamud ectropion. Attention was then turned to left lower eyelid full-thickness excision and repair greater than one-quarter. A lateral canthotomy and cantholysis was created in the standard fashion. Full-thickness eyelid was excised approximately 5 mm in horizontal length. A tongue of tarsus was created and the mucocutaneous junction was excised. The tongue of tarsus was reapproximated at the inner aspect of the zygomatic periosteum with 5-0 PDS suture in mattress fashion such that the eyelid was in the appropriate height, contour, and tension. Next attention was placed to the lateral canthus. A 6-0 vicryl suture was used to reform the canthal angle thru the upper and lower eyelid turk line, with the knot laterally. The previously placed double armed 5-0 PDS suture was then tied to physiologic tension. The angle was symmetric to the other side. A deep orbicularis suture was used to close the incision over the maxon suture. The lateral canthus skin was then closed with several interrupted 6-0 plain gut sutures. Attention was turned to full thickness skin graft from the right postauricular area to the left lower lid medial. The graft was taken from the right postauricular area by making an incision in an ellipse. The graft measured 3 x 1.2 cm in the postauricular region. The skin graft was excised with a #15 blade and Ginette scissors. The graft was then fashioned trimmed and sutured into position with 6-0 plain gut sutures in the left lower lid medially. Attention was then turned to right adjacent tissue transfer flap postauricular 4x2cm (8cm2) to close the postauricular site that could not be close primarily. Extensive undermining was undertaken subcutaneously for 4 x 2cm (8cm2) posterior to the wound to create an adavancment flap that was then advanced to the anterior edge with deep 4-0 polysorb sutures. The cutaneous incision was closed with running 4-0 mild chromic suture and wound was dressed with antibiotic ointment. The eye and wounds were dressed with antibiotic ointment, telfa and a light patch. A sign-out was performed. The patient returned to recovery room in stable condition having tolerated the procedure well. Participation: Dr. Mccormack performed local infiltration, prep and drape under indirect supervision with staff out of room and immediately available. Dr. Camryn Davila was then scrubbed with assistance for the entire remainder of the case. SIGNATURE: Camryn Davila MD PATIENT NAME: Thanh Coleman DATE: February 27, 2022 TIME: PAGER/CONTACT #: [facility] 02-26-2022 [facility] Office Visit ([facility] ) THANH COLEMAN ([id number]) 1935 M Date Time Provider Department 02/26/22 9:40 AM ANA MARIA JOLLY [facility] During your visit today, we recorded the following information about you: Ana Maria Jolly MD 02/26/2022 1:01 PM Signed MOHS MICROGRAPHIC OPERATIVE REPORT - 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 DAVILA) SERVICE DATE: 02/26/2022 SERVICE TIME: 939 LOCATION: [address] [place] [address] REFERRING PROVIDER: Dr Kang PROCEDURE START TIME: 939 PROCEDURE END TIME: 1139 SURGEON: Dr. Ana Maria Jolly RESIDENT: Dr. Eric Crowe (observation only) REGISTERED NURSE: Jaz Vaughn RN ANTICOAGULANTS: ASA Coumadin Eliquis IMPLANTED DEVICES: Pacemaker ANTIBIOTIC PROPHYLAXIS: Not required TRANSPLANT PATIENT: No PHOTOS: Photos taken VERIFICATION OF PROCEDURE: Procedure to be Performed: Mohs Surgery Patient Verified By: Name and Date of Site(s) Confirmed: Patient confirmed site from image in the EMR. Patient verbalized agreement of surgical site(s). Site(s) Marked: Provider marking the site with patient involvement. Relevant documentation, images, implants or special equipment present: Yes SIGN IN COMMUNICATION: Completed Time Out: Team Confirms the Correct Patient, Correct Procedure, Correct Site(s) and Site Marked, Correct Position (if applicable). Time: 940 Affirmation of Time Out: Yes Sign out Discussion: Completed UNIVERSAL PROTOCOL / SAFETY CHECKLIST Procedure to be Performed: MOHS Sign In: A Moment of CARE was completed. Personnel directly involved with the procedure wore the appropriate PPE (Personal Protective Equipment). Patient/Surrogate Stated/Verified: PATIENT VERIFIED(optional for EMERGENT procedures): Patient name, Date of , Relevant allergies, and The intended procedure Time Out Communication: Intended patient and procedure match the source documents. Consent documented and matches the intended procedure. Sign Out: SIGN OUT (optional for EMERGENT procedures): All specimen containers correctly labeled. All instruments, equipment, possible retained foreign bodies accounted for. 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 Anesthesia was obtained with local infiltration. The clinically apparent tumor was then debulked with a curette. A 1-2 mm rim of tissue was marked circumferentially around the defect. The area thus outlined was excised deep to the subcutis. Hemostasis was achieved with electrocautery. The specimen was oriented, subdivided into 2 sections, chromacoded and submitted for horizontal frozen sections. The patient tolerated the procedure well and no complications were noted. Upon review of the horizontal frozen sections for Layer A, residual Basal Cell Carcinoma was identified in pieces A1 and A2 Depth of Invasion:dermis Perineural invasion: No LVI: No . MICRONODULAR BASAL CELL CARCINOMA: Emanating from the epidermis and infiltrating the dermis are irregularly shaped islands of basaloid keratinocytes. The cells have scant cytoplasm and round dark nuclei. Mitotic figures and apoptotic bodies are evident. The nuclei at the periphery of the islands have a palisaded arrangement. The islands are associated with a fibromyxoid stroma and there is cleft formation between some of the islands and stroma. In areas the tumor breaks up into a small, micronodular, infiltrative growth pattern with deeper extension into the. LAYER B A 1-2 mm rim of tissue was marked to encompass the positive margins noted in the frozen section. The area thus outlined was excised deep to the subcutis. Hemostasis was achieved with electrocautery. The specimen was oriented, subdivided into 2 sections, chromacoded and submitted for horizontal frozen sections. The patient tolerated the procedure well and no complications were noted. Upon review of the horizontal frozen sections for Layer B, no residual tumor was identified . B1 and B2 negative CLOSURE Rationale for DELAYED REPAIR WITH DR. DAVILA Diagnosis: Surgical defect secondary to Mohs micrographic surgery on a Primary tumor type from left malar cheek (location of tumor). Post-op Defect Size: 2.0 x 1.2cm Closure Type/Final Size: TBD by Dr. Davila at closure tomorrow 02/27/22 SCC Staging N/A N/A LOCAL ANESTHETIC: 4cc 1 (more content not included)... [facility] CNPNon 02-26-2022 CNPN Telephone (JOANIE) THANH COLEMAN ([id number]) 1935 M Date Time Provider Department 02/26/22 SOTO NAILS During your visit today, we recorded the following information about you: Allergies As of Date: 02/26/2022 Noted Allergy Reaction DUST 05/29/2017 14 - Other: See Comments GRASS POLLEN 05/29/2017 14 - Other: See Comments MOLD SPORES 05/29/2017 14 - Other: See Comments Date Reviewed: 02/26/2022 Reviewed by: Jaz Vaughn RN - Fully Assessed Reason for Visit: Pre-Op Teaching [134] Prescriptions as of 02/26/2022 - ketoconazole (NIZORAL) 2 % cream Apply to affected area twice daily. To the ear for rash - ketoconazole (NIZORAL) 2 % shampoo Apply to affected area once daily as needed for itching/rash. - lisinopril (ZESTRIL, PRINIVIL) 20 mg tablet TAKE 1 TABLET BY MOUTH DAILY - furosemide (LASIX) 20 mg tablet TAKE 1 TABLET BY MOUTH DAILY AFTER BREAKFAST *FOR SWELLING - atorvastatin (LIPITOR) 40 mg tablet Take 1 tablet by mouth once daily. - metoprolol tartrate, short acting, (LOPRESSOR) 100 mg tablet Take 1 tablet by mouth twice daily. - potassium chloride (KLOR-CON 10) 10 mEq tablet Take 1 tablet by mouth once daily. - sertraline (ZOLOFT) 50 mg tablet Take 1 tablet by mouth daily with dinner. - triamcinolone (KENALOG) 0.1 % lotion Apply to affected area three times daily. - uazodinr-lhcwcndno-jtgw icidin (NEOMYCIN) 1.75 mg-10,000 unit-0.025mg/mL drop Apply 3 drops to each ear twice daily. - fctonxzg-mwnfpnbts-pqak ocortisone (CORTISPORIN) 3.5-10,000-1 mg/mL-unit/mL-% otic suspension Use 4 Drops in the ears four times daily. - warfarin (COUMADIN) 4 mg tablet Take 1 tablet by mouth once daily. - ELIQUIS 2.5 mg tab(s) TAKE 1 TABLET BY MOUTH TWICE A DAY - Fenofibrate (LOFIBRA) 54 mg tablet Take 1 tablet by mouth once daily. - nitroglycerin sublingual (NITROQUICK) 0.4 mg SL tablet Dissolve 1 tablet under the tongue every 5 minutes as needed. - ezetimibe (ZETIA) 10 mg tablet Take 1 tablet by mouth once daily. - albuterol HFA (VENTOLIN HFA) 90 mcg/actuation inhaler Inhale 2 Puffs as instructed every 4 hours as needed for wheezing/shortness of breath. - fluticasone (FLONASE) 50 mcg/actuation nasal spray Use 1 [place] in each nostril daily at bedtime. - aspirin, enteric coated (ASPIRIN, ENTERIC COATED) 81 mg EC tablet Take 81 mg by mouth once daily. - senna (SENOKOT) 8.6 mg tab Take 8.6 mg by mouth once daily as needed. - Magnesium 250 mg tab Take 250 mg by mouth once daily. 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] 08/10/2015 Sick sinus syndrome (HCC) [I49.5] 08/10/2015 Permanent atrial fibrillation (HCC) [I48.21] 08/10/2015 Gastrointestinal hemorrhage associated with ang*08/10/2015 Dyslipidemia [E78.5] 08/10/2015 Tobacco use [Z72.0] 08/10/2015 Encounter for monitoring anti-arrhythmic therap*08/10/2015 06/22/2020 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] 08/10/2015 Chronic obstructive pulmonary disease (HCC) [J4*01/29/2016 CKD (chronic kidney disease) [N18.9] 06/19/2016 06/22/2020 Allergic rhinitis [J30.9] 06/19/2016 06/22/2020 Essential hypertension [I10] 06/19/2016 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] 12/21/2015 Arteriosclerosis of coronary artery [I25.10] 12/23/2019 Aortic aneurysm (HCC) [I71.9] 06/22/2020 Abnormal cholesterol test [E78.9] 06/22/2020 COPD (chronic obstructive pulmonary disease) (H* 06/22/2020 H/O right heart catheterization [Z98.890] 06/22/2020 High blood pressure [I10] 07/29/2016 History of heart attack [I25.2] 06/22/2020 Neuropathy (HCC) [G62.9] Thrombocytopenia (HCC) [D69.6] Hypertriglyceridemia [E78.1] Low HDL (under 40) [E78.6] 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]07/29/2016 06/22/2020 History of abdominal aortic aneurysm repair [Z9*07/29/2016 06/22/2020 COPD (chronic obstructive pulmonary disease) wi*07/08/2017 Chronic seasonal allergic rhinitis due to polle*07/08/2017 Stage 3 chronic kidney disease (HCC) [N18.30] 10/08/2017 06/22/2020 Coronary artery disease due to lipid rich plaqu*10/08/2017 06/22/2020 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 [facility] CNPN Telephone ([place]) THANH COLEMAN ([id number]) 1935 M Date Time Provider Department 02/26/22 SOTO NAILS During your visit today, we recorded the following information about you: Soto Nails RN 02/26/2022 1:12 PM Signed PACC appt 02-25-22 and NO SHOW. No appts available today for procedure scheduled tomorrow, 02-27-22 @ [facility]. Per Malathi Brody: HANDP to be completed on DOS. Received message from Sangeeta-due diligence coordinator: Please note for pt instructions- since he was not aware to stop pt did take his eliquis today, but Dr Davila is aware and said to just have him stop tomorrow. ADDENDUM 02/26/22: Ok per Dr. Sweeney to hold Eliquis. Jacky Sanchez APRN.[facility] [employer] PPM-check in [facility] 11-17-21 BATTERY STATUS: KYLAH was triggered on 10/02/21. Patient was previously scheduled for a change out, then canceled in favor of having device change done locally. Called patient today and he reports having an appointment on 12/03/21 with a local EP. Chart reviewed by Dr. Dougherty (anesthesia), he did have the battery/generator changed in November, so we're definitely good to go! Patient contacted and preoperative instructions given. Soto Nails RN PACC February 26, 2022 1:12 PM Allergies As of Date: 02/26/2022 Noted Allergy Reaction DUST 05/29/2017 14 - Other: See Comments GRASS POLLEN 05/29/2017 14 - Other: See Comments MOLD SPORES 05/29/2017 14 - Other: See Comments Date Reviewed: 02/26/2022 Reviewed by: Jaz Vaughn RN - Fully Assessed Reason for Visit: Preparations For Surgery [898] Prescriptions as of 02/26/2022 - ketoconazole (NIZORAL) 2 % cream Apply to affected area twice daily. To the ear for rash - ketoconazole (NIZORAL) 2 % shampoo Apply to affected area once daily as needed for itching/rash. - lisinopril (ZESTRIL, PRINIVIL) 20 mg tablet TAKE 1 TABLET BY MOUTH DAILY - furosemide (LASIX) 20 mg tablet TAKE 1 TABLET BY MOUTH DAILY AFTER BREAKFAST *FOR SWELLING - atorvastatin (LIPITOR) 40 mg tablet Take 1 tablet by mouth once daily. - metoprolol tartrate, short acting, (LOPRESSOR) 100 mg tablet Take 1 tablet by mouth twice daily. - potassium chloride (KLOR-CON 10) 10 mEq tablet Take 1 tablet by mouth once daily. - sertraline (ZOLOFT) 50 mg tablet Take 1 tablet by mouth daily with dinner. - triamcinolone (KENALOG) 0.1 % lotion Apply to affected area three times daily. - texwfcvq-hbsccpuct-zlyu icidin (NEOMYCIN) 1.75 mg-10,000 unit-0.025mg/mL drop Apply 3 drops to each ear twice daily. - siulblhs-tiynvtvmv-cczv ocortisone (CORTISPORIN) 3.5-10,000-1 mg/mL-unit/mL-% otic suspension Use 4 Drops in the ears four times daily. - warfarin (COUMADIN) 4 mg tablet Take 1 tablet by mouth once daily. - ELIQUIS 2.5 mg tab(s) TAKE 1 TABLET BY MOUTH TWICE A DAY - Fenofibrate (LOFIBRA) 54 mg tablet Take 1 tablet by mouth once daily. - nitroglycerin sublingual (NITROQUICK) 0.4 mg SL tablet Dissolve 1 tablet under the tongue every 5 minutes as needed. - ezetimibe (ZETIA) 10 mg tablet Take 1 tablet by mouth once daily. - albuterol HFA (VENTOLIN HFA) 90 mcg/actuation inhaler Inhale 2 Puffs as instructed every 4 hours as needed for wheezing/shortness of breath. - fluticasone (FLONASE) 50 mcg/actuation nasal spray Use 1 [place] in each nostril daily at bedtime. - aspirin, enteric coated (ASPIRIN, ENTERIC COATED) 81 mg EC tablet Take 81 mg by mouth once daily. - senna (SENOKOT) 8.6 mg tab Take 8.6 mg by mouth once daily as needed. - Magnesium 250 mg tab Take 250 mg by mouth once daily. 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] 08/10/2015 Sick sinus syndrome (HCC) [I49.5] 08/10/2015 Permanent atrial fibrillation (HCC) [I48.21] 08/10/2015 Gastrointestinal hemorrhage associated with ang*08/10/2015 Dyslipidemia [E78.5] 08/10/2015 Tobacco use [Z72.0] 08/10/2015 Encounter for monitoring anti-arrhythmic therap*08/10/2015 06/22/2020 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] 08/10/2015 Chronic obstructive pulmonary disease (HCC) [J4*01/29/2016 CKD (chronic kidney disease) [N18.9] 06/19/2016 06/22/2020 Allergic rhinitis [J30.9] 06/19/2016 06/22/2020 Essential hypertension [I10] 06/19/2016 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] 12/21/2015 Arteriosclerosis of coronary artery [I25.10] 12/23/2019 Aortic aneurysm (HCC) [I71.9] 06/22/2020 Abnormal cholesterol test [E78.9] 06/22/2020 COPD (chroni (more content not included)... [facility] NURSING PROGon 02-26-2022 NURSING PROG HNO ID: [id number] Author: Soto Nails RN Service: Anesthesiology Author Type: Registered Nurse Type: Nursing Progress Note Filed: 02/26/2022 12:50 PM Note Text: PATIENT PREOPERATIVE INSTRUCTIONS Dr. Davila has scheduled you for your procedure at this surgery center: [facility]: [phone] --[address] [place] [address]. Please enter through the entrance closest to [facility]. Please read below carefully for your personalized instructions. Dietary Restrictions: - No solid food after midnight. - You may have 12 ounces of clear liquids (water, clear juices such as apple juice or gatorade, carbonated beverages, clear tea, black coffee, jello) until 2 hours before scheduled arrival at facility. - Do not drink any alcohol after midnight the night before your surgery. Medications: Unless instructed differently below, stay on all of your medications until your surgery. Approved medications to take the morning of surgery with a sip of water: Metoprolol If you start any new medications after today's visit, please contact the surgeon's office. Blood Thinning Medications: ADDENDUM 02/26/22: Ok per Dr. Sweeney to hold Lyn. Jacky Sanchez APRN.HEALTH INFORMATION SPECIALIST Important Reminders: - If you use CPAP/BIPAP, bring the machine with you to the surgery center. - If you are prescribed inhalers for breathing, continue using them. - Candy, mints, and tobacco products are NOT permitted the morning of surgery. - Hearing aids, dentures and glasses may be worn the morning of surgery. - NO jewelry, body piercings, makeup, hairpins or contacts are to be worn the day of surgery. If you develop symptoms such as a fever, cold, or flu, or have other changes to your health within TWO DAYS of scheduled surgery or the morning of surgery, please contact the surgery center above. Personal Belongings: -Please have photo ID and insurance cards. -If you do not have a copy of advance directives on file with us, please bring a copy with you on the day of surgery. - Leave ALL valuables and money at home or with family members. For Outpatient Procedures: - YOU MUST HAVE A RESPONSIBLE JIG GRINDER TAKE YOU HOME. A PHARMACOVIGILANCE SPECIALIST OR SOLUTION ENGINEER CANNOT BE MADE A RESPONSIBLE JIG GRINDER. - We recommend that a responsible person stays with you overnight to take care of you. - You cannot stay in a hotel alone after outpatient surgery. You will not be permitted to have your surgery, if you do not have someone to take care of you. Arrival Time for Surgery: - The Surgery Center or hospital where you are having surgery will call the afternoon before surgery (or Friday for Friday surgery) with a scheduled arrival time. - If you have not heard by 4 pm, please contact the surgery center above. Please be aware that emergency situations arise, which may delay or change your surgical time. If this happens, we will notify you as soon as possible and regret any inconvenience. If you already have an Advance Directive, please fax a copy to [phone] or email to [email or web address] for it to be added to your chart. If you do not have an Advance Directive, you can find the appropriate form and more information at [email or web address]. We recommend that you complete the Advance Directive form found on the website and bring it with you the day of your surgery. It can be witnessed and scanned into your chart that day. Soto Nails RN Normal [facility] SURGICAL PATHOLOGYon CASE REPORT Normal [facility] Comment on above: Order Comment: Speci men Type: TISSUE SPECIMENOrdering Facility: [facility] Address: [address] [place] [address] Result Comment: Surg ica Pathology Report Case: [id number] Authorizing Provider: Ana Maria Jolly MD Collected: 02/26/2022 11:52 AM Ordering Location: Dermatology Received: 02/26/2022 09:30 PM Pathologist: Baldemar Nails MD, PhD Specimen: SKIN SHAVE BIOPSY, A) left neck, R/O BCC Performed By: #### S ####[facility] LABCLIA [id number] [place] [address] [place] CLINICAL HISTORY n/a Normal [facility] Comment on above: Order Comment: Speci men Type: TISSUE SPECIMENOrdering Facility: [facility] Address: [address] [place] [address] Performed By: #### S ####[facility] LABCLIA [id number] [address] [place] FINAL DIAGNOSIS Normal [facility] Comment on above: Order Comment: Speci men Type: TISSUE SPECIMENOrdering Facility: [facility] Address: [address] [place] [address] Result Comment: A. S kin, left neck, shave biopsy: -Chronic folliculitis. AF/CK 02/27/2022 Performed By: #### S ####[facility] LABCLIA [id number] [address] [place] FINAL PERFORMING LAB Normal [facility] Comment on above: Order Comment: Speci men Type: TISSUE SPECIMENOrdering Facility: [facility] Address: [address] [place] [address] Result Comment: Diag nostic interpretation performed at [facility], [address] [address] CLIA# [id number] Junior Java Developer: Reggie Seth M.D. Performed By: #### S ####[facility] LABCLIA [id number] [place] [address] [place] GROSS DESCRIPTION Normal [facility] Comment on above: Order Comment: Speci men Type: TISSUE SPECIMENOrdering Facility: [facility] Address: [address] [place], [place] [address] [place] [address] Result Comment: A. S KIN SHAVE BIOPSY Received in alcoholic formalin is a 0.8 x 0.6 x 0.2 cm shave of skin. On the skin surface there is a 0.8 cm morgan, slightly elevated area. The specimen is bisected. Totally submitted in one cassette. Gross examination performed at [facility], [address] [facility], [place] [id number] [facility] 02/27/2022 12:54 AM Performed By: #### S ####[facility] LABCLIA [id number] [facility] [id number] [id number] [facility] Rissa 02-25-2022 [place] Telephone (BAN) THANH COLEMAN ([id number]) 1935 M Date Time Provider Department 02/25/22 ILEANA TORRES During your visit today, we recorded the following information about you: Tonia Tobin LPN 02/25/2022 3:58 PM Signed Called and spoke to both patient and friend Priyanka. They were not aware patient had an appointment today with [facility]. Please call them on the home number to reschedule today's appointment. Tonia Tobin LPN Allergies As of Date: 02/25/2022 Noted Allergy Reaction DUST 05/29/2017 14 - Other: See Comments GRASS POLLEN 05/29/2017 14 - Other: See Comments MOLD SPORES 05/29/2017 14 - Other: See Comments Date Reviewed: 01/29/2022 Reviewed by: Raya Dorsey LPN - Fully Assessed Reason for Visit: Appointment [186] Cmt: Missed appointment Prescriptions as of 02/27/2022 - ketoconazole (NIZORAL) 2 % cream Apply to affected area twice daily. To the ear for rash - ketoconazole (NIZORAL) 2 % shampoo Apply to affected area once daily as needed for itching/rash. - lisinopril (ZESTRIL, PRINIVIL) 20 mg tablet TAKE 1 TABLET BY MOUTH DAILY - furosemide (LASIX) 20 mg tablet TAKE 1 TABLET BY MOUTH DAILY AFTER BREAKFAST *FOR SWELLING - atorvastatin (LIPITOR) 40 mg tablet Take 1 tablet by mouth once daily. - metoprolol tartrate, short acting, (LOPRESSOR) 100 mg tablet Take 1 tablet by mouth twice daily. - potassium chloride (KLOR-CON 10) 10 mEq tablet Take 1 tablet by mouth once daily. - sertraline (ZOLOFT) 50 mg tablet Take 1 tablet by mouth daily with dinner. - triamcinolone (KENALOG) 0.1 % lotion Apply to affected area three times daily. - ktilqiqy-qlfwxdhpl-rkjv icidin (NEOMYCIN) 1.75 mg-10,000 unit-0.025mg/mL drop Apply 3 drops to each ear twice daily. - pjtcbpox-jjhojbggj-glnm ocortisone (CORTISPORIN) 3.5-10,000-1 mg/mL-unit/mL-% otic suspension Use 4 Drops in the ears four times daily. - warfarin (COUMADIN) 4 mg tablet Take 1 tablet by mouth once daily. - ELIQUIS 2.5 mg tab(s) TAKE 1 TABLET BY MOUTH TWICE A DAY - Fenofibrate (LOFIBRA) 54 mg tablet Take 1 tablet by mouth once daily. - nitroglycerin sublingual (NITROQUICK) 0.4 mg SL tablet Dissolve 1 tablet under the tongue every 5 minutes as needed. - ezetimibe (ZETIA) 10 mg tablet Take 1 tablet by mouth once daily. - albuterol HFA (VENTOLIN HFA) 90 mcg/actuation inhaler Inhale 2 Puffs as instructed every 4 hours as needed for wheezing/shortness of breath. - fluticasone (FLONASE) 50 mcg/actuation nasal spray Use 1 [place] in each nostril daily at bedtime. - aspirin, enteric coated (ASPIRIN, ENTERIC COATED) 81 mg EC tablet Take 81 mg by mouth once daily. - senna (SENOKOT) 8.6 mg tab Take 8.6 mg by mouth once daily as needed. - Magnesium 250 mg tab Take 250 mg by mouth once daily. 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] 08/10/2015 Sick sinus syndrome (HCC) [I49.5] 08/10/2015 Permanent atrial fibrillation (HCC) [I48.21] 08/10/2015 Gastrointestinal hemorrhage associated with ang*08/10/2015 Dyslipidemia [E78.5] 08/10/2015 Tobacco use [Z72.0] 08/10/2015 Encounter for monitoring anti-arrhythmic therap*08/10/2015 06/22/2020 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] 08/10/2015 Chronic obstructive pulmonary disease (HCC) [J4*01/29/2016 CKD (chronic kidney disease) [N18.9] 06/19/2016 06/22/2020 Allergic rhinitis [J30.9] 06/19/2016 06/22/2020 Essential hypertension [I10] 06/19/2016 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] 12/21/2015 Arteriosclerosis of coronary artery [I25.10] 12/23/2019 Aortic aneurysm (HCC) [I71.9] 06/22/2020 Abnormal cholesterol test [E78.9] 06/22/2020 COPD (chronic obstructive pulmonary disease) (H* 06/22/2020 H/O right heart catheterization [Z98.890] 06/22/2020 High blood pressure [I10] 07/29/2016 History of heart attack [I25.2] 06/22/2020 Neuropathy (HCC) [G62.9] Thrombocytopenia (HCC) [D69.6] Hypertriglyceridemia [E78.1] Low HDL (under 40) [E78.6] 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 Normal [facility] CBC W Auto Differential pane l (Bld)on 01-08-2022 Abs Immature Gran 0.03 k/uL <0.10 k/uL [facility] Basophils (Bld) [#/Vol] 0.07 10*3/uL <0.11 k/uL [facility] Basophils/100 WBC (Bld) 1.0 % [facility] Differential cell count method Nom (Bld) Auto [facility] Eosinophils (Bld) [#/Vol] 0.43 10*3/uL <0.46 k/uL [facility] Eosinophils/100 WBC (Bld) 5.9 % [facility] Erythrocyte distribution width (RBC) [Ratio] 13.5 % 11.5 - 15.0 % [facility] Hematocrit (Bld) [Volume fraction] 48.5 % 39.0 - 51.0 % [facility] Hemoglobin (Bld) [Mass/Vol] 15.6 g/dL 13.0 - 17.0 g/dL [facility] Immature Gran % 0.4 % [facility] Lymphocytes (Bld) [#/Vol] 2.21 10*3/uL 1.00 - 4.00 k/uL [facility] Lymphocytes/100 WBC (Bld) 30.5 % [facility] MCH (RBC) [Entitic mass] 31.3 pg 26.0 - 34.0 pg [facility] MCHC (RBC) [Mass/Vol] 32.2 g/dL 30.5 - 36.0 g/dL [facility] MCV (RBC) [Entitic vol] 97.4 fL 80.0 - 100.0 fL [facility] Monocytes (Bld) [#/Vol] 0.70 10*3/uL <0.87 k/uL [facility] Monocytes/100 WBC (Bld) 9.7 % [facility] Neutrophils (Bld) [#/Vol] 3.80 10*3/uL 1.45 - 7.50 k/uL [facility] Neutrophils/100 WBC (Bld) 52.5 % [facility] Nucleated RBC (Bld) [#/Vol] <0.01 k/uL [facility] Nucleated RBC/100 WBC (Bld) [Ratio] 0.0 /100 WBC [facility] Platelet mean volume (Bld) [Entitic vol] 12.7 fL 9.0 - 12.7 fL [facility] Platelets (Bld) [#/Vol] 135 10*3/uL Low 150 - 400 k/uL [facility] RBC (Bld) [#/Vol] 4.98 10*6/uL 4.20 - 6.00 m/uL [facility] WBC (Bld) [#/Vol] 7.24 10*3/uL 3.70 - 11.00 k/u L [facility] Comprehensive metabolic 2000 panelon 01-08-2022 Albumin [Mass/Vol] 4.3 g/dL 3.9 - 4.9 g/dL [facility] ALP [Catalytic activity/Vol] 54 U/L 38 - 113 U/L [facility] ALT [Catalytic activity/Vol] 21 U/L 10 - 54 U/L [facility] Anion gap [Moles/Vol] 11 mmol/L 9 - 18 mmol/L [facility] AST [Catalytic activity/Vol] 25 U/L 14 - 40 U/L [facility] Bilirubin [Mass/Vol] 0.5 mg/dL 0.2 - 1.3 mg/dL [facility] Calcium [Mass/Vol] 9.7 mg/dL 8.5 - 10.2 mg/dL [facility] Chloride [Moles/Vol] 104 mmol/L 97 - 105 mmol/L [facility] CO2 [Moles/Vol] 27 mmol/L 22 - 30 mmol/L [facility] Creatinine [Mass/Vol] 1.80 mg/dL High 0.73 - 1.22 mg/dL [facility] Estimated Glomerular Filtration Rate 36 mL/min/1.73m Low >=60 mL/min/1.73m [facility] Glucose [Mass/Vol] 117 mg/dL High 74 - 99 mg/dL [facility] Potassium [Moles/Vol] 4.5 mmol/L 3.7 - 5.1 mmol/L [facility] Protein [Mass/Vol] 7.3 g/dL 6.3 - 8.0 g/dL [facility] Sodium [Moles/Vol] 142 mmol/L 136 - 144 mmol/L [facility] Urea nitrogen [Mass/Vol] 29 mg/dL High 9 - 24 mg/dL [facility] NT PRO BNPon 01-08-2022 Natriuretic peptide.B prohormone N-Terminal [Mass/Vol] 1295 pg/mL High <450 pg/mL [facility] VITAMIN B12 BLOODon 01-09-20 Cobalamin (Vitamin B12) [Mass/Vol] 353 pg/mL 232 - 1,245 pg/mL [facility] VITAMIN D 25 HYDROXYon 01-08 25-hydroxyvitamin D3 [Mass/Vol] 27.3 ng/mL Low 31.0 - 80.0 ng/mL [facility] XR CHEST 2 VIEWSon 2 XR CHEST 2 VIEWS ORIGINAL EXAMINATION: TWO XRAY VIEWS OF THE CHEST 12/04/2021 6:29 pm COMPARISON: None. HISTORY: ORDERING SYSTEM PROVIDED HISTORY: Reason for Exam: Evaluate for pneumothorax/lead position post pacer/ICD insertion FINDINGS: Left-sided cardiac pacemaker with leads projecting at the right atrium and right ventricle. Cardiomediastinal silhouette is within normal limits. Atherosclerotic aorta. No focal lung consolidation, pleural effusion, or pneumothorax. Mild bibasilar linear opacities favor atelectasis. No acute osseous abnormality. IMPRESSION: Left-sided cardiac pacemaker and leads projecting at the right atrium and right ventricle. No pneumothorax. Mild bibasilar atelectasis. I have personally reviewed the images of this examination and agree with the resident's findings and interpretation. Interpreted by: Pavan Valencia MD Preliminary Report By: Kareem Escobar Electronically signed By Pavan Valencia MD Dictated Date: 12/05/2021 4:07:25 AM Prelim Date: 12/05/2021 4:10:23 AM Sign Date: 12/05/2021 6:35:07 AM Ordering Provider: KAREEM KOENE [facility] ([place]) .Auto Diffon 12-04-2021 Basophil, Absolute 0.1 10 3/mcL Normal 0.0-0.3 [facility] [place] Comment on above: Performed By: #### Savannah FR, BMP #### [address] [address] Basophils/100 WBC (Bld) 0.9 % Normal 0.0-2.5 [facility] ([place]) Comment on above: Performed By: #### [place] FR, BMP #### [address] [address] Eosinophil, Absolute 0.4 10 3/mcL Normal 0.0-0.7 [facility] ([place] Comment on above: Performed By: #### [place] FR, BMP #### [address] [address] Eosinophils/100 WBC (Bld) 4.5 % Normal 0.0-6.0 [facility] ([place] Comment on above: Performed By: #### Sav[place] FR, BMP #### [address] [address] Lymphocyte, Absolute 1.9 10 3/mcL Normal 0.9-4.3 [facility] ([place] Comment on above: Performed By: #### [place] FR, BMP #### [address] [address] Lymphocytes/100 WBC (Bld) 24.0 % Normal 20.0-40.0 [facility] ([place] Comment on above: Performed By: #### [place] FR, BMP #### [address] [address] Monocyte, Absolute 0.9 10 3/mcL Normal 0.1-1.4 [facility] [place] Comment on above: Performed By: #### G FR, BMP #### [address] [address] Monocytes/100 WBC (Bld) 11.1 % Normal 2.0-13.0 [facility] ([place] Comment on above: Performed By: #### G FR, BMP #### [address] [address] Neutrophils/100 WBC (Bld) 59.5 % Normal 50.0-75.0 [facility] ([place]) Comment on above: Performed By: #### G FR, BMP #### [facility] [address] [place] [address] .GFRon 12-04-2021 GFR Non- 37 ml/min/1.73sqm Normal [facility] ([place] Comment on above: Result Comment: GFR Population mean for , Non- Americans Ages 20-29 = 116 mL/min/1.73 sq.m. Ages 30-39 = 107 mL/min/1.73 sq.m. Ages 40-49 = 99 mL/min/1.73 sq.m. Ages 50-59 = 93 mL/min/1.73 sq.m. Ages 60-69 = 85 mL/min/1.73 sq.m. Ages 70+ = 75 mL/min/1.73 sq.m. Chronic Kidney Disease: Less than 60 mL/min/1.73 square meters End Stage Renal Disease: Less than 15 mL/min/1.73 square meters Performed By: #### G FR, BMP #### [address] [address] GFR 45 ml/min/1.73sqm Normal [facility] ([place] Comment on above: Result Comment: GFR Population mean for , Non- Americans Ages 20-29 = 116 mL/min/1.73 sq.m. Ages 30-39 = 107 mL/min/1.73 sq.m. Ages 40-49 = 99 mL/min/1.73 sq.m. Ages 50-59 = 93 mL/min/1.73 sq.m. Ages 60-69 = 85 mL/min/1.73 sq.m. Ages 70+ = 75 mL/min/1.73 sq.m. Chronic Kidney Disease: Less than 60 mL/min/1.73 square meters End Stage Renal Disease: Less than 15 mL/min/1.73 square meters Performed By: #### G FR, BMP #### [place] [address] [place] [address] .MDWon 08-16-2022 Monocyte Distribution Width Not performed Normal 0.00-20.00 [facility] ([place] Comment on above: Result Comment: MDW testing performed only on adult ER patients between the ages of 18-89 years. Performed By: #### Savannah KHAN, BMP #### [address] [address] .NEUABSon 12-04-2021 Neutrophil, Absolute 4.8 10 3/mcL Normal 2.3-8.1 [facility] ([place]) Comment on above: Performed By: #### Savannah KHAN, BMP #### [address] [address] ABO/Rh (Gel)on 12-04-2021 ABO/Rh Interp Positive Invalid Interpretation Code [facility] ([place] Comment on above: Performed By: #### Savannah KHAN, BMP #### [address] [address] ABS (Gel)on 12-04-2021 ABSC Interp (Gel) Negative Normal [facility] ([place] Comment on above: Performed By: #### Savannah KHAN, BMP #### [address] [address] BMPon 12-04-2021 BUN/Creatinine Ratio 25.3 ratio High 10.0-22.0 [facility] ([place] Comment on above: Performed By: #### Savannah KHAN, BMP #### [address] [address] Calcium [Mass/Vol] 9.6 mg/dL Normal 8.7-10.4 [facility] ([place]) Comment on above: Performed By: #### Savannah KHAN, BMP #### [address] [address] Chloride [Moles/Vol] 112 mmol/L High 98-110 [facility] ([place]) Comment on above: Performed By: #### Savannah KHAN, BMP #### [address] [address] CO2 [Moles/Vol] 30 mmol/L Normal 22-32 [facility] ([place] Comment on above: Performed By: #### Savannah KHAN, BMP #### [address] [address] Creatinine [Mass/Vol] 1.74 mg/dL High 0.60-1.40 [facility] ([place] Comment on above: Performed By: #### Savannah KHAN, BMP #### [address] [address] Electrolyte Balance 5.0 mEq/L Normal 4.0-15.0 [facility] [place] Comment on above: Performed By: #### Savannah KHAN, BMP #### [address] [address] Glucose [Mass/Vol] 93 mg/dL Normal 82-115 [facility] ([place]) Comment on above: Performed By: #### Savannah KHAN, BMP #### [place] [id number] Potassium [Moles/Vol] 4.1 mmol/L Normal 3.5-5.0 [facility] ([place] Comment on above: Performed By: #### Savannah KHAN, BMP #### [place] [id number] Sodium [Moles/Vol] 147 mmol/L High 136-145 [facility] ([place]) Comment on above: Performed By: #### Savannah KHAN, BMP #### [address] [address] Urea nitrogen [Mass/Vol] 44.0 mg/dL High 8.0-22.0 [facility] ([place]) Comment on above: Performed By: #### Savannah KHAN, BMP #### [address] [address] CBCon 12-04-2021 Erythrocyte distribution width (RBC) [Ratio] 14.2 % Normal 11.5-15.5 [facility] ([place] Comment on above: Performed By: #### Savannah KHAN, BMP #### [address] [address] Hematocrit (Bld) [Volume fraction] 48.0 % Normal 40.0-52.0 [facility] ([place] Comment on above: Performed By: #### Savannah KHAN, BMP #### [address] [address] Hgb 16.0 G/dL Normal 13.0-17.5 [facility] ([place] Comment on above: Performed By: #### Savannah KHAN, BMP #### [place] [address] MCH (RBC) [Entitic mass] 31.4 pg Normal 27.0-33.0 [facility] ([place] Comment on above: Performed By: #### Savannah KHAN, BMP #### [place] [address] MCHC 33.3 G/dL Normal 32.0-36.0 [facility] ([place] Comment on above: Performed By: #### Savannah KHAN, BMP #### [place] [address] MCV (RBC) [Entitic vol] 94.3 fL Normal 81.0-100.0 [facility] ([place] Comment on above: Performed By: #### Savannah KHAN, BMP #### [place] [address] Platelet 122 10 3/mcL Low 150-450 [facility] ([place] Comment on above: Performed By: #### Savannah KHAN, BMP #### [place] [address] Platelet mean volume (Bld) [Entitic vol] 9.7 fL Normal 6.4-10.5 [facility] ([place] Comment on above: Performed By: #### Savannah KHAN, BMP #### [place] [address] RBC 5.09 10 6/mcL Normal 4.50-6.00 [facility] ([place] Comment on above: Performed By: #### Savannah FR, BMP #### [place] [address] WBC 8.1 10 3/mcL Normal 4.5-10.8 [facility] ([place] Comment on above: Performed By: #### Savannah KHAN, BMP #### [place] [address] LABORATORYOrdered By: Ginny Anderson on 12-04-2021 ABO and Rh group Nom (Bld) Blood group A Rh(D) positive Invalid Interpretation Code BB Auto SS Blood group antibody screen Ql NEG (12/04/21 7:41 AM) Invalid Interpretation Code BB Auto SS LABORATORYOrdered By: SYSTEM SYSTEM on 12-04-2021 Basophils (Bld) [#/Vol] 0.1 103/mcL Invalid Interpretation Code 0.0 - 0.3 10^3/mcL AH Workflow SS Basophils/100 WBC (Bld) 0.9 % Invalid Interpretation Code 0.0 - 2.5 % AH Workflow SS Calcium [Mass/Vol] 9.6 mg/dL Invalid Interpretation Code 8.7 - 10.4 mg/dL ADM SS Chloride [Moles/Vol] 112 mmol/L Invalid Interpretation Code 98 - 110 mEq/L ADM SS CO2 [Moles/Vol] 30 mmol/L Invalid Interpretation Code 22 - 32 mEq/L ADM SS Creatinine [Mass/Vol] 1.74 mg/dL Invalid Interpretation Code 0.60 - 1.40 mg/dL ADM SS Electrolyte Balance 5.0 mEq/L Invalid Interpretation Code 4.0 - 15.0 mEq/L ADM SS Eosinophils (Bld) [#/Vol] 0.4 103/mcL Invalid Interpretation Code 0.0 - 0.7 10^3/mcL Workflow SS Eosinophils/100 WBC (Bld) 4.5 % Invalid Interpretation Code 0.0 - 6.0 % Workflow SS Erythrocyte distribution width (RBC) [Ratio] 14.2 % Invalid Interpretation Code 11.5 - 15.5 % Workflow SS GFR/1.73 sq M.predicted among blacks MDRD (S/P/Bld) [Vol rate/Area] 45 ml/min/1.73sqm Invalid Interpretation Code Chemistry S GFR/1.73 sq M.predicted among non-blacks MDRD (S/P/Bld) [Vol rate/Area] 37 ml/min/1.73sqm Invalid Interpretation Code Chemistry S Glucose [Mass/Vol] 93 mg/dL Invalid Interpretation Code 82 - 115 mg/dL ADM SS Hematocrit (Bld) [Volume fraction] 48.0 % Invalid Interpretation Code 40.0 - 52.0 % Workflow SS Hemoglobin (Bld) [Mass/Vol] 16.0 G/dL Invalid Interpretation Code 13.0 - 17.5 G/dL AH Workflow SS Lymphocytes (Bld) [#/Vol] 1.9 103/mcL Invalid Interpretation Code 0.9 - 4.3 10^3/mcL AH Workflow SS Lymphocytes/100 WBC (Bld) 24.0 % Invalid Interpretation Code 20.0 - 40.0 % AH Workflow SS MCH (RBC) [Entitic mass] 31.4 pg Invalid Interpretation Code 27.0 - 33.0 pg AH Workflow SS MCHC 33.3 G/dL Invalid Interpretation Code 32.0 - 36.0 G/dL AH Workflow SS MCV (RBC) [Entitic vol] 94.3 fL Invalid Interpretation Code 81.0 - 100.0 fL AH Workflow SS Monocyte distribution width Auto (Bld) [Entitic vol] Not Performed 1 *NA* (12/04/21 7:41 AM) Invalid Interpretation Code 0.00 - 20.00 Hematology S Comment on above: Result Comment: MDW testing performed only on adult ER patients between the ages of 18-89 years. Monocytes (Bld) [#/Vol] 0.9 103/mcL Invalid Interpretation Code 0.1 - 1.4 10^3/mcL AH Workflow SS Monocytes/100 WBC (Bld) 11.1 % Invalid Interpretation Code 2.0 - 13.0 % AH Workflow SS Neutrophils (Bld) [#/Vol] 4.8 103/mcL Invalid Interpretation Code 2.3 - 8.1 10^3/mcL AH Workflow SS Neutrophils/100 WBC (Bld) 59.5 % Invalid Interpretation Code 50.0 - 75.0 % AH Workflow SS Platelet mean volume (Bld) [Entitic vol] 9.7 fL Invalid Interpretation Code 6.4 - 10.5 fL AH Workflow SS Platelets (Bld) [#/Vol] 122 103/mcL Invalid Interpretation Code 150 - 450 10^3/mcL AH Workflow SS Potassium [Moles/Vol] 4.1 mmol/L Invalid Interpretation Code 3.5 - 5.0 mEq/L AH ADM SS RBC (Bld) [#/Vol] 5.09 106/mcL Invalid Interpretation Code 4.50 - 6.00 10^6/mcL AH Workflow SS Sodium [Moles/Vol] 147 mmol/L Invalid Interpretation Code 136 - 145 mEq/L ADM SS Urea nitrogen [Mass/Vol] 44.0 mg/dL Invalid Interpretation Code 8.0 - 22.0 mg/dL AH ADM SS Urea nitrogen/Creatinine [Mass ratio] 25.3 ratio Invalid Interpretation Code 10.0 - 22.0 ratio AH ADM SS WBC 8.1 103/mcL Invalid Interpretation Code 4.5 - 10.8 10^3/mcL AH Workflow SS No Panel Informationon 11-20 BLANK _ [facility] Implant Date 08/17/2012 [facility] Model 5086MRI CapSureFix M RI SureScan [facility] PACEMAKER REMOTE CHECKon Battery Voltage (volts) 2.8 V [facility] Filipe RA Sensing Amplitude (mvolts) 0.15 mV [facility] Filipe RA Sensing Blanking Period (ms) 150 ms [facility] Filipe RA Sensing Polarity BI [facility] Filipe RV Pacing Amplitude (volts) 2 V [facility] Filipe RV Pacing Polarity BI [facility] Filipe RV Pacing Pulse Width (ms) 0.4 ms [facility] Filipe RV Sensing Amplitude (mvolts) 2.8 mV [facility] Filipe RV Sensing Blanking Period (ms) 200 ms [facility] Filipe RV Sensing Polarity UNI [facility] Hysteresis Rate (bpm) DISABLED [facility] Lead1 Mfg MDT [facility] Lead2 Mfg MDT [facility] Location RA [facility] Location RV [facility] Lower Rate (bpm) 65 {beats}/min [facility] Model [id number] DUNN [facility] Pacing Mode VVI [facility] PM-Device Mfg MDT [facility] PM-Percent Pacing (A) 0 % [facility] PM-Percent Pacing (V) 98.41 % [facility] RA Bipolar Impedance ohms 361 ohm [facility] RA Unipolar Impedance ohms 285 ohm [facility] RV Bipolar Impedance ohms 551 ohm [facility] RV Unipolar Impedance 475 ohm [facility] Serial Number [id number] [facility] Serial Number [id number] [facility] Serial Number [id number] [facility] Thresh RA Capture Amplitude (volts) 1.125 V [facility] Thresh RA Capture Duration (ms) 0.4 ms [facility] Thresh RA Sensing Amplitude (mvolts) 0.5 mV [facility] Thresh RV Capture Amplitude (volts) 0.75 V [facility] Thresh RV Capture Duration (ms) 0.4 ms [facility] Thresh RV Sensing Amplitude (mvolts) 11.25 mV [facility] No Panel Informationon 09-13 BLANK _ [facility] Implant Date 08/17/2012 [facility] Model 5086MRI CapSureFix M RI Pepper [facility] PACEMAKER REMOTE CHECKon AV Delay Adaptive Paced Minimum (ms) 180 ms [facility] AV Delay Adaptive Status DISABLED [facility] Battery Voltage (volts) 2.81 V [facility] Filipe RA Pacing Amplitude (volts) 2.25 V [facility] Filipe RA Pacing Polarity BI [facility] Filipe RA Pacing Pulse Width (ms) 0.4 ms [facility] Filipe RA Sensing Amplitude (mvolts) 0.15 mV [facility] Filipe RA Sensing Blanking Period (ms) 150 ms [facility] Filipe RA Sensing Polarity BI [facility] Filipe RA Sensing Refractory Period (ms) Auto [facility] Filipe RV Pacing Amplitude (volts) 2 V [facility] Filipe RV Pacing Polarity BI [facility] Filipe RV Pacing Pulse Width (ms) 0.4 ms [facility] Filipe RV Sensing Amplitude (mvolts) 2.8 mV [facility] Filipe RV Sensing Blanking Period (ms) 200 ms [facility] Filipe RV Sensing Polarity UNI [facility] Hysteresis Rate (bpm) DISABLED [facility] Lead1 Mfg MDT [facility] Lead2 Mfg MDRd [facility] Location RA [facility] Location RV [facility] Lower Rate (bpm) 60 {beats}/min [facility] Max Sensor Rate (bmp) 110 {beats}/min [facility] Model [id number] MONA [facility] Pacing Mode DDIR [facility] PM-Device Mfg MDT [facility] PM-Percent Pacing (A) 19.72 % [facility] PM-Percent Pacing (V) 41.17 % [facility] PM-PVC Intervention ENABLED [facility] PM-Rate Modulation Acceleration Reaction 30 s [facility] PM-Rate Modulation ADL Rate (bpm) 95 {beats}/min [facility] PM-Rate Modulation Deceleration Exercise [facility] PM-Rate Modulation Zavala 3 [facility] PM-Rate Modulation Threshold MediumLow [facility] RA Bipolar Impedance ohms 380 ohm [facility] RA Unipolar Impedance ohms 304 ohm [facility] RV Bipolar Impedance ohms 570 ohm [facility] RV Unipolar Impedance 475 ohm [facility] Serial Number [id number] [facility] Serial Number [id number] [facility] Serial Number [id number] [facility] Thresh RA Capture Amplitude (volts) 1.125 V [facility] Thresh RA Capture Duration (ms) 0.4 ms [facility] Thresh RA Sensing Amplitude (mvolts) 1 mV [facility] Thresh RV Capture Amplitude (volts) 0.75 V [facility] Thresh RV Capture Duration (ms) 0.4 ms [facility] Thresh RV Sensing Amplitude (mvolts) 14.25 mV [facility] No Panel Informationon 09-04 BLANK _ [facility] Implant Date 08/17/2012 [facility] Model 5086MRI CapSureFix M RI SureScan [facility] PACEMAKER REMOTE CHECKon AV Delay Adaptive Paced Minimum (ms) 180 ms [facility] AV Delay Adaptive Status DISABLED [facility] Battery Voltage (volts) 2.81 V [facility] Filipe RA Pacing Amplitude (volts) 2.25 V [facility] Filipe RA Pacing Polarity BI [facility] Filipe RA Pacing Pulse Width (ms) 0.4 ms [facility] Filipe RA Sensing Amplitude (mvolts) 0.15 mV [facility] Filipe RA Sensing Blanking Period (ms) 150 ms [facility] Filipe RA Sensing Polarity BI [facility] Filipe RA Sensing Refractory Period (ms) Auto [facility] Filipe RV Pacing Amplitude (volts) 2 V [facility] Filipe RV Pacing Polarity BI [facility] Filipe RV Pacing Pulse Width (ms) 0.4 ms [facility] Filipe RV Sensing Amplitude (mvolts) 2.8 mV [facility] Filipe RV Sensing Blanking Period (ms) 200 ms [facility] Filipe RV Sensing Polarity UNI [facility] Hysteresis Rate (bpm) DISABLED [facility] Lead1 Mfg MDT [facility] Lead2 Mfg MDT [facility] Location RA [facility] Location RV [facility] Lower Rate (bpm) 60 {beats}/min [facility] Max Sensor Rate (bmp) 110 {beats}/min [facility] Model [id number] DUNN [facility] Pacing Mode DDIR [facility] PM-Device Mfg ANNA [facility] PM-Percent Pacing (A) 94.79 % [facility] PM-Percent Pacing (V) 98.22 % [facility] PM-PVC Intervention ENABLED [facility] PM-Rate Modulation Acceleration Reaction 30 s [facility] PM-Rate Modulation ADL Rate (bpm) 95 {beats}/min [facility] PM-Rate Modulation Deceleration Exercise [facility] PM-Rate Modulation Zavala 3 [facility] PM-Rate Modulation Threshold MediumLow [facility] RA Bipolar Impedance ohms 361 ohm [facility] RA Unipolar Impedance ohms 304 ohm [facility] RV Bipolar Impedance ohms 532 ohm [facility] RV Unipolar Impedance 456 ohm [facility] Serial Number [id number] [facility] Serial Number [id number] [facility] Serial Number [id number] [facility] Thresh RA Capture Amplitude (volts) 1.125 V [facility] Thresh RA Capture Duration (ms) 0.4 ms [facility] Thresh RA Sensing Amplitude (mvolts) 0.625 mV [facility] Thresh RV Capture Amplitude (volts) 0.75 V [facility] Thresh RV Capture Duration (ms) 0.4 ms [facility] Thresh RV Sensing Amplitude (mvolts) 15.25 mV [facility] No Panel Informationon 08-16 BLANK _ [facility] Implant Date 08/17/2012 [facility] Model 5086MRI CapSureFix M RI SureScan [facility] PACEMAKER REMOTE CHECKon AV Delay Adaptive Paced Minimum (ms) 180 ms [facility] AV Delay Adaptive Status DISABLED [facility] Battery Voltage (volts) 2.82 V [facility] Filipe RA Pacing Amplitude (volts) 2.25 V [facility] Filipe RA Pacing Polarity BI [facility] Filipe RA Pacing Pulse Width (ms) 0.4 ms [facility] Filipe RA Sensing Amplitude (mvolts) 0.15 mV [facility] Filipe RA Sensing Blanking Period (ms) 150 ms [facility] Filipe RA Sensing Polarity BI [facility] Filipe RA Sensing Refractory Period (ms) Auto [facility] Filipe RV Pacing Amplitude (volts) 2 V [facility] Filipe RV Pacing Polarity BI [facility] Filipe RV Pacing Pulse Width (ms) 0.4 ms [facility] Filipe RV Sensing Amplitude (mvolts) 2.8 mV [facility] Filipe RV Sensing Blanking Period (ms) 200 ms [facility] Filipe RV Sensing Polarity UNI [facility] Hysteresis Rate (bpm) DISABLED [facility] Lead1 Mfg MDT [facility] Lead2 Mfg MDT [facility] Location RA [facility] Location RV [facility] Lower Rate (bpm) 60 {beats}/min [facility] Max Sensor Rate (bmp) 110 {beats}/min [facility] Model [id number] DUNN [facility] Pacing Mode DDIR [facility] PM-Device Mfg MDT [facility] PM-Percent Pacing (A) 53.9 % [facility] PM-Percent Pacing (V) 69.39 % [facility] PM-PVC Intervention ENABLED [facility] PM-Rate Modulation Acceleration Reaction 30 s [facility] PM-Rate Modulation ADL Rate (bpm) 95 {beats}/min [facility] PM-Rate Modulation Deceleration Exercise [facility] PM-Rate Modulation Zavala 3 [facility] PM-Rate Modulation Threshold MediumLow [facility] RA Bipolar Impedance ohms 361 ohm [facility] RA Unipolar Impedance ohms 304 ohm [facility] RV Bipolar Impedance ohms 532 ohm [facility] RV Unipolar Impedance 456 ohm [facility] Serial Number [id number] [facility] Serial Number [id number] [facility] Serial Number [id number] [facility] Thresh RA Capture Amplitude (volts) 1.125 V [facility] Thresh RA Capture Duration (ms) 0.4 ms [facility] Thresh RA Sensing Amplitude (mvolts) 0.875 mV [facility] Thresh RV Capture Amplitude (volts) 0.75 V [facility] Thresh RV Capture Duration (ms) 0.4 ms [facility] Thresh RV Sensing Amplitude (mvolts) 14.125 mV [facility] Coronavirus 2019on 1 COVID 19 Result [employer] Abnormal Negative for COVID19 (SARS CoV2) by PCR. [facility] Comment on above: Result Comment: Posi tive for This test was developed and its performance characteristics determined by [facility] [place]. This test has been authorized by FDA under an Emergency Use Authorization (EUA). This test has been validated in accordance with the FDA's Guidance Document Policy for Diagnostics Testing in Laboratories Certified to Perform High Complexity Testing under CLIA prior to Emergency use Authorization for Coronavirus Disease 2019 during the Public Health Emergency issued on June 19, 2019. COVID19 (SARS This test was developed and its performance characteristics determined by [facility] [place]. This test has been authorized by FDA under an Emergency Use Authorization (EUA). This test has been validated in accordance with the FDA's Guidance Document Policy for Diagnostics Testing in Laboratories Certified to Perform High Complexity Testing under CLIA prior to Emergency use Authorization for Coronavirus Disease 2019 during the Public Health Emergency issued on June 19, 2019. CoV2) by This test was developed and its performance characteristics determined by [facility] [place]. This test has been authorized by FDA under an Emergency Use Authorization (EUA). This test has been validated in accordance with the FDA's Guidance Document Policy for Diagnostics Testing in Laboratories Certified to Perform High Complexity Testing under CLIA prior to Emergency use Authorization for Coronavirus Disease 2019 during the Public Health Emergency issued on June 19, 2019. PCR.(*) This test was developed and its performance characteristics determined by [facility] [place]. This test has been authorized by FDA under an Emergency Use Authorization (EUA). This test has been validated in accordance with the FDA's Guidance Document Policy for Diagnostics Testing in Laboratories Certified to Perform High Complexity Testing under CLIA prior to Emergency use Authorization for Coronavirus Disease 2019 during the Public Health Emergency issued on June 19, 2019. COVID 19 Source [employer] Normal [facility] Comment on above: Result Comment: Naso pharyngeal Corrected on 04/26 AT 0234: Previously reported as [employer] SWAB Swab Corrected on 04/26 AT 0234: Previously reported as [employer] SWAB ANES POSTPROC EVALon 020 ANES POSTPROC EVAL HNO ID: [id number] Author: Jose Soriano Service: ? Author Type: Anesthesiologist Type: Anesthesia Postprocedure Evaluation Filed: 03/03/2020 11:03 AM Note Text: POST ANESTHESIA EVALUATION NOTE : 1935 Procedure Summary Date: 03/03/20 Room / Location: [facility] PACU / [facility] Anesthesia Start: 1039 Anesthesia Stop: 1052 Procedure: CARDIOVERSION EXTERNAL ELECTIVE (N/A ) Diagnosis: Atrial fibrillation, persistent (HCC) Surgeons: Merline Noland Responsible Provider: Jose Soriano Anesthesia Type: MAC ASA Status: 3 Anesthesia Type: MAC Last vitals Vitals Value Taken Time BP 97/55 03/03/20 1100 Temp 37 03/03/20 1103 Pulse 77 03/03/20 1101 Resp 20 03/03/20 1101 SpO2 99 % 03/03/20 1101 Vitals shown include unvalidated device data. Post Anesthesia Patient Status Patient Evaluation: PACU. PACU/ICU Patient Condition: stable. Anticipated Disposition: inpatient floor planned admission. Neurological Status: aware and responsive. Pulmonary Status: breathing comfortably on room air Airway Control: returned to baseline unsupported. Cardiovascular Status: stable. Pain Management: clinically adequate - multimodal analgesia pain management approach Postoperative Hydration: acceptable. Intraoperative Events: no significant anesthesia events Post Operative Nausea/Vomiting Status: Anesthetic Observations: no significant anesthetic observations Recommendation: continue current plan of care and further care per PACU/ICU/floor team. SIGNATURE: Jose Soriano MD PATIENT NAME: Thanh Coleman DATE: March 03, 2020 TIME: 11:03 AM CSN: [id number] [facility] ANES PRE-OPon 03-03-2020 ANES PRE-OP HNO ID: [id number] Author: Jose Soriano Service: ? Author Type: Anesthesiologist Type: Anesthesia Preprocedure Evaluation Filed: 03/03/2020 10:30 AM Note Text: ANESTHESIOLOGY DAY OF SURGERY NOTE : 1935 Procedure(s) (LRB): CARDIOVERSION EXTERNAL ELECTIVE (N/A) Surgeon(s): Merline Noland Estimated body mass index is 29.41 kg/m? as calculated from the following: Height as of this encounter: 177.8 cm (5' 10 ). Weight as of this encounter: 93 kg (205 lb). 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 Tracheostomy tube not present Mallampati: II. TM distance: >3 FB. Neck ROM: full ROM without neurological symptoms. Mouth opening: adequate. Additional exam findings: no II - ANESTHESIA PLAN ASA Score: 3 Anesthetic Plan: MAC NPO Status: adequate Monitoring plan: standard ASA. Postoperative analgesic plan: parenteral or oral opioids and multimodal analgesia. Anesthetic Risks, Benefits, Alternatives, Personnel Discussed. Consent obtained from: patient. Patient / Surrogate agrees to blood products: blood products not planned Significant changes in the patient condition since the History and Physical, not otherwise documented in primary service progress note: no. Vitals Value Taken Time BP 125/90 03/03/20 0858 Pulse Resp 18 03/03/20 0858 Temp 36.7 ?C (98.1 ?F) 03/03/20 0858 SpO2 95 % 03/03/20 0858 Facility-Administered Medications as of 03/03/2020 Medication Dose Route Frequency - [COMPLETED] apixaban 2.5 mg tab(s) (ELIQUIS) 2.5 mg ORAL ONCE Outpatient Medications as of 03/03/2020 Medication Sig - amiodarone (PACERONE) 200 mg tablet Take 1 tablet by mouth once daily. - metoprolol tartrate, short acting, (LOPRESSOR) 50 mg tablet Take 1 tablet by mouth twice daily. - Fenofibrate (LOFIBRA) 54 mg tablet Take 1 tablet by mouth once daily. - potassium chloride (KLOR-CON 10) 10 mEq tablet Take 1 tablet by mouth once daily. - apixaban (ELIQUIS) 2.5 mg tab tab(s) Take 1 tablet by mouth twice daily. - lisinopril (ZESTRIL, PRINIVIL) 20 mg tablet Take 1 tablet by mouth once daily. - ezetimibe (ZETIA) 10 mg tablet Take 1 tablet by mouth once daily. - albuterol HFA (VENTOLIN HFA) 90 mcg/actuation inhaler Inhale 2 Puffs as instructed every 4 hours as needed for Wheezing/Shortness of Breath. - fluticasone (FLONASE) 50 mcg/actuation nasal spray Use 1 [place] in each nostril daily at bedtime. - nitroglycerin sublingual (NITROQUICK) 0.4 mg SL tablet Dissolve 0.4 mg under the tongue every 5 minutes as needed. - aspirin, enteric coated (ASPIRIN, ENTERIC COATED) 81 mg EC tablet Take 81 mg by mouth once daily. - senna (SENOKOT) 8.6 mg tab Take 8.6 mg by mouth once daily as needed. - Magnesium 250 mg tab Take 250 mg by mouth once daily. I have interviewed and examined the patient. I have reviewed the medical record and/or the pre-anesthesia evaluation, pertinent labs, and test results. This contains updated information obtained within 48 hours of Surgery/Procedure. SIGNATURE: Jose Soriano MD PATIENT NAME: Thanh Coleman DATE: March 03, 2020 TIME: 10:29 AM CSN: [id number] Normal [facility] Basic Metabolic Panlon 03-03 Anion gap [Moles/Vol] 13 mmol/L Normal 9-18 [facility] Comment on above: Performed By: #### C BC, BMP ####[facility] [address] [place] [address] Calcium [Mass/Vol] 9.6 mg/dL Normal 8.5-10.2 [facility] Comment on above: Performed By: #### C BC, BMP ####[facility] [address] [place] [address] Chloride [Moles/Vol] 107 mmol/L High 97-105 [facility] Comment on above: Performed By: #### C BC, BMP ####[facility] [address] [place] [address] CO2 [Moles/Vol] 26 mmol/L Normal 22-30 [facility] Comment on above: Performed By: #### C BC, BMP ####[facility] [address] [place] [address] Creatinine [Mass/Vol] 1.39 mg/dL High 0.73-1.22 [facility] Comment on above: Performed By: #### C BC, BMP ####[facility] [address] [place] [id number] eGFR- Amer. 59 [facility] Comment on above: Performed By: #### C MARK, BMP ####[facility] [address] [place] [id number] GFR/1.73 sq M predicted among non-blacks MDRD (S/P/Bld) [Vol rate/Area] 49 . Normal [facility] Comment on above: Result Comment: eGFR (Estimated GFR) Units of measure: mL/min/1.73 meters squared eGFR is derived from the reexpressed MDRD Study equation using the following parameters: serum creatinine, age, gender and race. The creatinine assay has been calibrated to be traceable to IDMS. An eGFR <60 mL/min/1.73m2 for >3 months is consistent with chronic kidney disease. Refer to KDOQI guidelines for clinical interpretation. In patients with unstable renal function, e.g. those with acute kidney injury, the eGFR may not accurately reflect actual GFR. Performed By: #### C MARK, BMP ####[facility] [address] [place] [id number] Glucose [Mass/Vol] 103 mg/dL High 74-99 [facility] Comment on above: Result Comment: The [place] Diabetes Association (ADA) provides guidance for cutoff values for fasting glucose and random glucose. The ADA defines fasting as no caloric intake for at least 8 hours. Fasting plasma glucose results between 100 to 125 mg/dL indicate increased risk for diabetes (prediabetes). Fasting plasma glucose results greater than or equal to 126 mg/dL meet the criteria for diagnosis of diabetes. In the absence of unequivocal hyperglycemia, results should be confirmed by repeat testing. In a patient with classic symptoms of hyperglycemia or hyperglycemic crisis, random plasma glucose results greater than or equal to 200 mg/dL meet the criteria for diagnosis of diabetes. Reference: Standards of Medical Care in Diabetes 2016, [place] Diabetes Association. Diabetes Care. 2016.39(Suppl 1). Performed By: #### C BC, BMP ####[facility] [address] [place] [id number] Potassium [Moles/Vol] 4.4 mmol/L Normal 3.7-5.1 [facility] Comment on above: Performed By: #### C BC, BMP ####[facility] [address] [place] [phone] Sodium [Moles/Vol] 146 mmol/L High 136-144 [facility] Comment on above: Performed By: #### C BC, BMP ####[facility] [address] [place] [address] Urea nitrogen [Mass/Vol] 28 mg/dL High 9-24 [facility] Comment on above: Performed By: #### C BC, BMP ####[facility] [address] [place] [address] CBCon 03-03-2020 Absolute nRBC <0.01 Normal <0.01 [facility] Comment on above: Performed By: #### C MARK, BMP ####[facility] [address] [place] [address] Erythrocyte distribution width (RBC) [Ratio] 13.2 % Normal 11.5-15.0 [facility] Comment on above: Performed By: #### C MARK, BMP ####[facility] [address] [place] [address] Hematocrit (Bld) [Volume fraction] 52.6 % High 39.0-51.0 [facility] Comment on above: Performed By: #### C MARK, BMP ####[facility] [address] [place] [address] Hemoglobin (Bld) [Mass/Vol] 16.4 g/dL Normal 13.0-17.0 [facility] Comment on above: Performed By: #### C BC, BMP ####[facility] [address] [place] [address] MCH (RBC) [Entitic mass] 29.4 pG Normal 26.0-34.0 [facility] Comment on above: Performed By: #### C BC, BMP ####[facility] [address] [place] [address] MCHC (RBC) [Mass/Vol] 31.2 g/dL Normal 30.5-36.0 [facility] Comment on above: Performed By: #### C BC, BMP ####[facility] [address] [place] [address] MCV (RBC) [Entitic vol] 94.3 fL Normal 80.0-100.0 [facility] Comment on above: Performed By: #### C BC, BMP ####[facility] [address] Platelet mean volume (Bld) [Entitic vol] 12.2 fL Normal 9.0-12.7 [facility] Comment on above: Performed By: #### C BC, BMP ####[facility] [address] Platelets (Bld) [#/Vol] 123 10*3/uL Low 150-400 [facility] Comment on above: Result Comment: No c lot detected. Performed By: #### C BC, BMP ####[facility] [address] [place] [id number] RBC (Bld) [#/Vol] 5.58 10*6/uL Normal 4.20-6.00 [facility] Comment on above: Performed By: #### C MARK, BMP ####[facility] [address] [place] [id number] WBC (Bld) [#/Vol] 8.55 10*3/uL Normal 3.70-11.00 [facility] Comment on above: Performed By: #### C MARK, BMP ####[facility] [address] HISTORY PHYSICALon 0 HISTORY PHYSICAL HNO ID: [id number] Author: Merline Noland Service: Cardiovascular Disease Author Type: Physician Type: HANDP Filed: 03/03/2020 9:19 AM Note Text: HANDP: CARDIOLOGY SERVICE SERVICE DATE: 03/03/2020 SERVICE TIME: 9:07 AM Consult requested by: Merline Noland PCP: Boo Marina DO REASON FOR CONSULT: Atrial fibrillation, persistent. HISTORY OF PRESENT ILLNESS: Mr. Coleman is 84 year old male who is here today for follow up with a history of persistent atrial fibrillation and subsequent [employer] pacemaker in July 2012 due to sinus pauses up to 10 seconds. Atrial fibrillation had been controlled with amiodarone and metoprolol. Known 70% right carotid stenosis. He had an acute coronary syndrome in June 2008 with MISAEL to the first diagonal and mid circumflex. Right coronary artery was totally occluded. LAD 25%. Ejection fraction 45%. Nuclear stress test 09/2014 demonstrated a small area of mid basal myocardial infarction and small area of inferolateral ischemia. Ejection fraction 42% with recommendation for continued medical therapy. Previous abdominal aortic aneurysm repair and bilateral iliac stenting. Despite all this he continued to smoke approximately one half pack daily. ? Denies exertional chest discomfort, unusual shortness of breath, signs or symptoms of congestive heart failure nor palpitations. No near-syncope or syncopal episodes. No focal neurologic deficits. ?TSH was mildly elevated. ?He also remains on digoxin with some mild renal insufficiency. ?Additional risk factors include hypertension, dyslipidemia, age. Additional comorbidities include COPD, neuropathy, thrombocytopenia, GI bleed secondary to AV malformations. ? The patient is involved in sporadic irregular exercise Patient is currently asymptomatic. Patient denies SOB, chest pain, dizziness, lightheadedness, palpitations, lower extremity edema, PND, orthopnea, presyncope, syncope or claudication symptoms. 84 y/o with CAD, iCM EF 47% and SND s/p placement of a PPM at an OSH 2012. Last device check demonstrated a low burden of PAF. He presents today to establish PPM care. Last device check with a small burden of PAF - maintained on Amio. Primarily AP. QRS 1.6 msec. Today he is noted to be in persistent AF - not acutely symptomatic - but more fatigued as of recent. CHADS VASc - HTN, Agex2, Vasc - 4 - he is not on AC. Rate control marginal. Prior creatinine 1.52 He had prior DCCV on 01/14/20. Patient is not currently having any symptoms. He denies any epistaxis, hematuria, or blood in the stool. PAST MEDICAL HISTORY Diagnosis Date - Abnormal cholesterol test - Aortic aneurysm (HCC) s/p repair AAA - CAD (coronary artery disease) pacemaker, hyperlipidemia, hyperlipidemia - CKD (chronic kidney disease) stage 3, GFR 30-59 ml/min ([facility]) 12/2015 - COPD (chronic obstructive pulmonary disease) ([facility]) - H/O right heart catheterization - High blood pressure - History of heart attack - Hypertriglyceridemia - Low HDL (under 40) - Neuropathy - TB (pulmonary tuberculosis) - Thrombocytopenia ([facility]) PAST SURGICAL HISTORY Procedure Laterality Date - ABD AORTIC ANEURYSM REPAIR - CORONARY STENT EA VESSEL 3-2008 x 2, drug eluting - ILIAC SLEEPING BAG FILLER W/WO STENT - PACEMAKER DUAL CHAMBER TIER 0 -2012 - PAST SURGICAL HISTORY OF resection lobe of lung,,AAA FAMILY HISTORY Problem Relation Age of Onset - No Ocular Disease Mother - other (TB) Mother - Stroke Father - No Ocular Disease Father - Cancer Brother - Kidney Disease Sister Social History Tobacco Use - Smoking status: Current Every Day Smoker Types: Cigarettes - Smokeless tobacco: Never Used - Tobacco comment: PK EVERY 3 DAYS Substance Use Topics - Alcohol use: No - Drug use: No Prior to Admission Medications Prescriptions Last Dose Informant Patient Reported? Taking? Fenofibrate (LOFIBRA) 54 mg tablet 03/02/2020 at 0800 No Yes Sig: Take 1 tablet by mouth once daily. Magnesium 250 mg tab 03/02/2020 at 0800 Yes Yes Sig: Take 250 mg by mouth once daily. albuterol HFA (VENTOLIN HFA) 90 mcg/actuation inhaler Past Week at Unknown time No Yes Sig: Inhale 2 Puffs as instructed every 4 hours as needed for Wheezing/Shortness of Breath. amiodarone (PACERONE) 200 mg tablet 03/02/2020 at 0800 No Yes Sig: Take 1 tablet by mouth once daily. apixaban (ELIQUIS) 2.5 mg tab tab(s) 03/02/2020 at 2100 No Yes Sig: Take 1 tablet by mouth twice daily. aspirin, enteric coated (ASPIRIN, ENTERIC COATED) 81 mg EC tablet 03/02/2020 at 0800 Yes Yes Sig: Take 81 mg by mouth once daily. atorvastatin (LIPITOR) 40 mg tablet 03/02/2020 at 0800 No Yes Sig: Take 1 tablet by mouth once daily. ezetimibe (ZETIA) 10 mg tablet 03/02/2020 at 0800 No Yes Sig: Take 1 tablet by mouth once daily. fluticasone (FLONASE) 50 mcg/actuation nasal spray 03/02/2020 at 0800 No Yes Sig: Use 1 [place] in each nostril daily at bedtime. lisinopril (ZESTRIL, PRINIVIL) 20 mg tablet 03/02/2020 at 0800 No Yes Sig: Take 1 tablet by mouth once daily. metoprolol tartrate, short acting, (LOPRESSOR) 50 mg tablet 03/02/2020 at 2100 No Yes Sig: Take 1 tablet by mouth twice daily. nitroglycerin sublingual (NITROQUICK) 0.4 mg SL tablet Yes Yes Sig: Dissolve 0.4 mg under the tongue every 5 minutes as needed. potassium chloride (KLOR-CON 10) 10 mEq tablet 03/02/2020 at 0800 No Yes Sig: Take 1 tablet by mouth once daily. senna (SENOKOT) 8.6 mg tab 03/02/2020 at 0800 Yes Yes Sig: Take 8.6 mg by mouth once daily as needed. Facility-Administered Medications: None Current Facility-Administered Medications Medication Dose Route Frequency - apixaban 2.5 mg tab(s) (ELIQUIS) 2.5 mg ORAL ONCE ALLERGIES Allergen Reactions - Dust Other: See Comments - Grass Pollen Other: See Comments - Mold Spores Other: See Comments REVIEW OF SYSTEMS: SYSTEMIC: No fever, chills, or change in weight or appetite HEENT: No recent change in vision or hearing. Respiratory: No hemoptysis, cough. Mild exertional SOB is present CARDIOVASCULAR: See HPI. GI: No recent nausea, vomiting or diarrhea. : No recent hematuria or dysuria. SKIN: No recent itching or eruption. PSYCH: No recent active anxiety or depression. HEMATOLOGY/ONCOLOGY: No recent diagnosis of bleeding or cancer. ENDOCRINE: No recent polyuria or heat intolerance. NEURO: No recent TIA, stroke or seizures. RHEUMATOLOGY: No recent active connective tissue disease. REST OF THE REVIEW OF SYSTEMS IS UNREMARKABLE. Objective PHYSICAL EXAM: Patient Vitals for the past 24 hrs: BP Temp Temp src Resp SpO2 Height Weight 03/03/20 0858 125/90 36.7 ?C (98.1 ?F) Temporal Art 18 95 % 177.8 cm (5' 10 ) 93 kg (205 lb) Body mass index is 29.41 kg/m?. No intake or output data in the 24 hours ending 03/03/20 0918 General: Pt is able to communicate. Patient is not in acute respiratory distress. SKIN: No rash or lumps. Eyes. Pupils are round and accommodative to light. HEENT: Normocephalic, face symmetrical. Normal pinna. Throat is without congestion. NECK: Supple, no JVD, no carotid bruit, no thyromegaly. LUNGS: Clear to auscultation bilaterally. CARDIAC:Regular rhythm with normal S1 and S2, LSB systolic murmur. ABDOMEN: Soft, nontender, bowel sounds present. EXTREMITIES: No cyanosis, clubbing, edema. PULSES: Peripheral pulses are palpable in Dorsalis pedis and Posterior tibial arteries bilaterally. NEURO: Non-focal. Awake, alert and oriented. Moves all extremities. MUSCULOSKELETAL: No fracture or dislocation of the bones or joints. Labs: TSH 4.960 10/06/2018 Triglycerides, Nonfasting 211 04/01/2019 HDL Cholesterol, Nonfasting 32 04/01/2019 LDL Cholesterol, Nonfasting 41 04/01/2019 Total Cholesterol, Nonfasting 115 04/01/2019 Diagnostic tests reviewed by me personally. DUAL LEAD PACEMAKER EVALUATION 02/21/20 PRESENTS FOR: routine device check PRESENTING EGM: AFL/VS UNDERLYING RHYTHM: AFL with 2:1 conduction, ventricular rate ~150bpm. Dr. Sweeney aware and he attempted to atrial ATP (lowest interval 140ms), unsuccessful, however converted rhythm to AF with slightly better rate control in 120-130s. Pt to increase lopressor and Amio and return for cardioversion. Undersensing pf PVCs noted, so RV sensitivity changed to unipolar, 2.8mV. Undersensing of AF also noted, sensitivity adjusted from 0.3mV to 0.15mV. BATTERY STATUS: Normal with no significant depletion, longevity remaining 15 months COUNTERS SINCE 12/06/19 ATRIAL ARRHYTHMIAS: AF burden 87.1%. Anticoagulants listed: eliquis VENTRICULAR ARRHYTHMIAS: There have been 1458 VT and 2179 Fast A/V detections, available EGMs show AFL with RVR. LEAD MEASUREMENTS: Capture and sensing are appropriate. The pacing outputs maintain safety margin. Review of the lead impedance trends are normal. IMPLANT SITE/ SYMPTOMS: The incision and pocket are pain-free (0/10), well healed and without signs of erosion or infection. No arm swelling, syncope, pre-syncope or device related pocket stimulation. OTHER DIAGNOSTICS: RV pacing 8.2 %. ? Stress Echo The exercise stress echo was non-diagnostic due to sub-optimal heart rate response at 79 % of MPHR (4.1 METS). Fair functional capacity for age and gender. - The left ventricle is normal in size. There is moderate upper septal left ventricular hypertrophy. Left ventricular systolic function is mildly decreased. EF = 47 ? 5% (2D 4-ch.) Definity contrast used for endocardial border detection. - Exam was compared with the prior CC 2 D echocardiographic exam performed on 06/11/17, no significant change is noted. EKG 06/21/19 ELECTRONIC ATRIAL PACEMAKER INFERIOR MYOCARDIAL INFARCTION , AGE UNDETERMINED Impression/Recommendati ons Patient Active Hospital Problem List: Presence of drug coated stent in left circumflex coronary artery (08/10/2015) Asymptomatic LV dysfunction (08/10/2015) History of AR (myocardial infarction) (08/10/2015) S/P insertion of iliac artery stent (08/10/2015) Pacemaker (08/10/2015) Atrial flutter (HCC) (03/03/2020) Pt has remained in persistent AF and has been on Amio plus Eliquis He has given consent for DCCV. SIGNATURE: Merline Noland MD [facility] PATIENT NAME: Thanh Coleman DATE: March 03, 2020 TIME: 9:07 AM Cell phone #: [phone] [facility] NURSING PROGon 03-03-2020 NURSING PROG HNO ID: [id number] Author: Santo (Rn) CELESTINE Willams Service: Nursing Author Type: Registered Nurse Type: Nursing Progress Note Filed: 03/03/2020 9:26 AM Note Text: 12 lead ekg complete . Labs drawn and sent [facility] OPERATIVE NOon 03-03-2020 OPERATIVE NO HNO ID: [id number] Author: Merline Noland Service: Cardiovascular Testing Author Type: Physician Type: Operative Report Filed: 03/03/2020 10:53 AM Note Text: OPERATIVE/PROCEDURE REPORT LOG ID: [id number] Surgery/Procedure Date: 03/03/2020 Incision/Procedure Start Time: 10:41 AM Incision Close/Procedure End Time: 10:45 AM Surgeon(s)/Proceduralis t(s) and Director Of Leadership Development(s): Surgeon(s) and Role: * Merline Noland - Primary No Additional Staff Procedure(s): DC Cardioversion Anesthesia: Monitored Anesthesia Care Procedure Details: The patient was monitored and administered supplemental oxygen. The NPO status and anticoagulation status were confirmed. Pt has been compliant with anticoagulation. Functioning intravenous access was in place. Adjunct airway equipment and suction were at the bedside and ready to use. Pacemaker equipment was at the bedside and ready to use. Self-adhesive countershock/pacing pads were applied in the anterior/posterior configuration. The patient was sedated with propofol. The patient underwent a single external synchronized biphasic countershock with a maximal energy of 200 J. The patient converted to normal sinus rhythm. The patient tolerated the procedure without apparent complications. Pre-Op/Pre-Procedure Diagnosis: A Flutter Post-Op/Post-Procedure Diagnosis: NSR with sinus tracking and V pacing Impression: Successful Cardioversion. Plan. Continue Anticoagulation and present medical therapy. Pt to see Dr Rizzo on Friday next week Estimated Blood Loss: 0 ml Specimens: None Implantable Devices: None Drains: None Complications: None Implantable Devices: None Drains: None Complications: None I performed the entire procedure without any resident or fellow trainee. SIGNATURE: Merline Noland MD [facility] PATIENT NAME: Thanh Coleman DATE: March 03, 2020 TIME: 10:51 AM MOBILE / CONTACT #: [phone] [facility] 02-22-2020 [facility] Patient:Thanh Coleman MRN: Height:5' 10 (1.778 m) Weight:No patient weight recorded within the last 30 days. Outpatient Medications as of 03/03/20: atorvastatin (LIPITOR) 40 mg tablet amiodarone (PACERONE) 200 mg tablet metoprolol tartrate, short acting, (LOPRESSOR) 50 mg tablet Fenofibrate (LOFIBRA) 54 mg tablet potassium chloride (KLOR-CON 10) 10 mEq tablet apixaban (ELIQUIS) 2.5 mg tab tab(s) lisinopril (ZESTRIL, PRINIVIL) 20 mg tablet ezetimibe (ZETIA) 10 mg tablet albuterol HFA (VENTOLIN HFA) 90 mcg/actuation inhaler fluticasone (FLONASE) 50 mcg/actuation nasal spray nitroglycerin sublingual (NITROQUICK) 0.4 mg SL tablet aspirin, enteric coated (ASPIRIN, ENTERIC COATED) 81 mg EC tablet senna (SENOKOT) 8.6 mg tab Magnesium 250 mg tab Admission/Clinic Administered Medications as of 03/03/20: Patient has no admission medications. 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 [K31.811] Dyslipidemia [E78.5] Tobacco abuse [Z72.0] Encounter for monitoring anti-arrhythmic therapy [Z51.81, Z79.899] 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] Chronic obstructive pulmonary disease (HCC) [J44.9] CKD (chronic kidney disease) [N18.9] Allergic rhinitis [J30.9] Essential hypertension [I10] CKD (chronic kidney disease) stage 3, GFR 30-59 ml/min [N18.30] CAD (coronary artery disease) [I25.10] Aortic aneurysm (HCC) [I71.9] Abnormal cholesterol test [E78.9] COPD (chronic obstructive pulmonary disease) (HCC) [J44.9] H/O right heart catheterization [Z98.890] History of heart attack [I25.2] Neuropathy [G62.9] Thrombocytopenia (HCC) [D69.6] Hypertriglyceridemia [E78.1] Low HDL (under 40) [E78.6] 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] History of abdominal aortic aneurysm repair [Z98.890] COPD (chronic obstructive pulmonary disease) with chronic bronchitis (HCC) [J44.9] Chronic seasonal allergic rhinitis due to pollen [J30.1] Stage 3 chronic kidney disease [N18.30] Coronary artery disease due to lipid rich plaque [I25.10, I25.83] 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 Lab Values No results within the last 30 days for the following basenames: K,HCT Progress Notes ([facility]): Delphine Nur Ma 02/25/2020 3:05 PM Signed Patient has been identified by name and date of : Yes Pending Prescriptions Disp Refills ATORVASTATIN 40 MG TABLET 90 tablet 3 Sig: Take 1 tablet by mouth once daily. MEENA: No RX INSTRUCTIONS: Patient aware RX will be sent to pharmacy. No need to notify patient. Delphine Nur Ma Last ov: 12/2019 Last refill; 03/2019 Nov: 03/2020 Progress Notes ([facility]): Jayjay Sweeney MD, 02/21/2020 4:20 PM Signed presented to device clinic today - in AFL with RVR at 150 bpm. Not acutely symptomatic Reviewed management - agreed to the following Increase Amio to 200 mg daily Increase Metoprolol to 50 mg BId Repeat DCC attempted - tentatively scheduled for 03-03-20. 2 week nurse follow up after that with EKG to assess rhythm control. Jayjay Sweeney MD [facility] ANE POSTPROC EVALon 020 ANES POSTPROC EVAL HNO ID: [id number] Author: Jose Soriano Service: ? Author Type: Anesthesiologist Type: Anesthesia Postprocedure Evaluation Filed: 01/14/2020 2:04 PM Note Text: POST ANESTHESIA EVALUATION NOTE : 1935 Procedure Summary Date: 01/14/20 Room / Location: [facility] PACU / [facility] Anesthesia Start: 1250 Anesthesia Stop: 1301 Procedure: CARDIOVERSION EXTERNAL ELECTIVE (N/A Chest) Diagnosis: Atrial fibrillation, persistent (HCC) Surgeons: Tk Zambrano DO Responsible Provider: Jose Soriano Anesthesia Type: MAC ASA Status: 3 Anesthesia Type: MAC Last vitals Vitals Value Taken Time BP 112/69 01/14/20 1345 Temp 36.7 ?C (98.1 ?F) 01/14/20 1310 HR SpO2 67 01/14/20 1345 Resp 16 01/14/20 1345 SpO2 95 % 01/14/20 1345 Post Anesthesia Patient Status Patient Evaluation: PACU. PACU/ICU Patient Condition: stable. Anticipated Disposition: phase 2 then home. Neurological Status: aware and responsive. Pulmonary Status: breathing comfortably on room air Airway Control: returned to baseline unsupported. Cardiovascular Status: stable. Pain Management: clinically adequate - multimodal analgesia pain management approach Postoperative Hydration: acceptable. Intraoperative Events: no significant anesthesia events Post Operative Nausea/Vomiting Status: Anesthetic Observations: no significant anesthetic observations Recommendation: continue current plan of care. SIGNATURE: Jose Soriano MD PATIENT NAME: Thanh Coleman DATE: January 14, 2020 TIME: 2:04 PM CSN: [id number] [facility] ANES PRE-OPon 01-14-2020 ANES PRE-OP HNO ID: [id number] Author: Jose Soriano Service: ? Author Type: Anesthesiologist Type: Anesthesia Preprocedure Evaluation Filed: 01/14/2020 11:42 AM Note Text: ANESTHESIOLOGY DAY OF SURGERY NOTE : 1935 Procedure(s) (LRB): CARDIOVERSION EXTERNAL ELECTIVE (N/A) Surgeon(s): Tk Zambrano DO Estimated body mass index is 29.41 kg/m? as calculated from the following: Height as of this encounter: 177.8 cm (5' 10 ). Weight as of this encounter: 93 kg (205 lb). Most recent hematocrit and potassium results: Hematocrit 48.5 12/23/2019 Potassium 3.9 12/23/2019 Relevant Problems CARDIO (+) Aortic aneurysm (HCC) (+) Atrial fibrillation, persistent (HCC) (+) CAD (coronary artery disease) (+) Coronary artery disease due to lipid rich plaque (+) Essential hypertension (+) Multiple vessel coronary artery disease (+) Pacemaker (+) Presence of drug coated stent in left circumflex coronary artery (+) Sick sinus syndrome (HCC) (+) Stenosis of right carotid artery -RENAL (+) CKD (chronic kidney disease) (+) CKD (chronic kidney disease) stage 3, GFR 30-59 ml/min (+) Stage 3 chronic kidney disease NEURO-PSYCH (+) History of AR (myocardial infarction) (+) History of heart attack PULMONARY (+) COPD (chronic obstructive pulmonary disease) (HCC) (+) Chronic obstructive pulmonary disease (HCC) I - PHYSICAL EVALUATION AIRWAY Patient intubated: No. Tracheostomy tube not present Mallampati: II. TM distance: >3 FB. Neck ROM: full ROM without neurological symptoms. Mouth opening: adequate. Additional exam findings: no II - ANESTHESIA PLAN ASA Score: 3 Anesthetic Plan: MAC NPO Status: adequate Monitoring plan: standard ASA. Postoperative analgesic plan: parenteral or oral opioids and multimodal analgesia. Anesthetic Risks, Benefits, Alternatives, Personnel Discussed. Consent obtained from: patient. Patient / Surrogate agrees to blood products: blood products not planned Significant changes in the patient condition since the History and Physical, not otherwise documented in primary service progress note: no. Vitals Value Taken Time BP 136/84 01/14/20 1121 Pulse 152 01/14/20 1121 Resp 16 01/14/20 1121 Temp 36.3 ?C (97.3 ?F) 01/14/20 1121 SpO2 97 % 01/14/20 1121 Facility-Administered Medications as of 01/14/2020 Medication Dose Route Frequency - lidocaine 10 mg/mL (1 %) 1-2 mg injection (XYLOCAINE) 0.1-0.2 mL INTRADERMAL PRN - lactated ringers infusion 5-30 mL/hr INTRAVENOUS CONTINUOUS - apixaban 2.5 mg tab(s) (ELIQUIS) 2.5 mg ORAL ONCE - metoprolol tartrate (short acting) 25 mg tab(s) (LOPRESSOR) 25 mg ORAL ONCE Outpatient Medications as of 01/14/2020 Medication Sig - potassium chloride (KLOR-CON 10) 10 mEq tablet Take 1 tablet by mouth once daily. - apixaban (ELIQUIS) 2.5 mg tab tab(s) Take 1 tablet by mouth twice daily. - lisinopril (ZESTRIL, PRINIVIL) 20 mg tablet Take 1 tablet by mouth once daily. - amiodarone (PACERONE) 100 mg tablet Take 1 tablet by mouth once daily. - atorvastatin (LIPITOR) 40 mg tablet Take 1 tablet by mouth once daily. - metoprolol tartrate, short acting, (LOPRESSOR) 25 mg tablet Take 1 tablet by mouth twice daily. - ezetimibe (ZETIA) 10 mg tablet Take 1 tablet by mouth once daily. - albuterol HFA (VENTOLIN HFA) 90 mcg/actuation inhaler Inhale 2 Puffs as instructed every 4 hours as needed for Wheezing/Shortness of Breath. - Fenofibrate (LOFIBRA) 54 mg tablet Take 1 tablet by mouth once daily. - fluticasone (FLONASE) 50 mcg/actuation nasal spray Use 1 [place] in each nostril daily at bedtime. - nitroglycerin sublingual (NITROQUICK) 0.4 mg SL tablet Dissolve 0.4 mg under the tongue every 5 minutes as needed. - aspirin, enteric coated (ASPIRIN, ENTERIC COATED) 81 mg EC tablet Take 81 mg by mouth once daily. - senna (SENOKOT) 8.6 mg tab Take 8.6 mg by mouth once daily as needed. - Magnesium 250 mg tab Take 250 mg by mouth once daily. I have interviewed and examined the patient. I have reviewed the medical record and/or the pre-anesthesia evaluation, pertinent labs, and test results. This contains updated information obtained within 48 hours of Surgery/Procedure. SIGNATURE: Jose Soriano MD PATIENT NAME: Thanh Coleman DATE: January 14, 2020 TIME: 11:41 AM CSN: [id number] [facility] HISTORY PHYSICALon 0 HISTORY PHYSICAL HNO ID: [id number] Author: Tk Zambrano DO Service: Cardiovascular Medicine Author Type: Physician Type: HANDP Filed: 01/14/2020 12:54 PM Note Text: Plan: For CV for persistent A. Fib. No changes in HANDP. HPI: Thanh Coleman is (an) 83 year old male who is here today for follow up with a history of persistent atrial fibrillation and subsequent [employer] pacemaker in July 2012 due to sinus pauses up to 10 seconds. Atrial fibrillation had been controlled with amiodarone and metoprolol. No anticoagulation due to a GI bleed. Known 70% right carotid stenosis. He had an acute coronary syndrome and June 2008 with MISAEL to the first diagonal and mid circumflex. Right coronary artery was totally occluded. LAD 25%. Ejection fraction 45%. Nuclear stress test 09/2014 demonstrated a small area of mid basal myocardial infarction and small area of inferolateral ischemia. Ejection fraction 42% with recommendation for continued medical therapy. Previous abdominal aortic aneurysm repair and bilateral iliac stenting. Despite all this he continued to smoke approximately one half pack daily. ? Denies exertional chest discomfort, unusual shortness of breath, signs or symptoms of congestive heart failure nor palpitations. No near-syncope or syncopal episodes. No focal neurologic deficits. ?TSH was mildly elevated. ?He also remains on digoxin with some mild renal insufficiency. ?Additional risk factors include hypertension, dyslipidemia, age. Additional comorbidities include COPD, neuropathy, thrombocytopenia, GI bleed secondary to AV malformations. ? He did see Dr. Patel and Dr. Tapia remotely. ? The patient is involved in sporadic irregular exercise Patient is currently asymptomatic. Patient denies SOB, chest pain, dizziness, lightheadedness, palpitations, lower extremity edema, PND, orthopnea, presyncope, syncope or claudication symptoms. ? PAST MEDICAL HISTORY PAST MEDICAL HISTORY Diagnosis Date - Abnormal cholesterol test ? - Aortic aneurysm (HCC) ? ? s/p repair AAA - CAD (coronary artery disease) ? ? pacemaker, hyperlipidemia, hyperlipidemia - CKD (chronic kidney disease) stage 3, GFR 30-59 ml/min ([facility]) 12/2015 - COPD (chronic obstructive pulmonary disease) ([facility]) ? - H/O right heart catheterization ? - High blood pressure ? - History of heart attack ? - Hypertriglyceridemia ? - Low HDL (under 40) ? - Neuropathy (HCC) ? - TB (pulmonary tuberculosis) ? - Thrombocytopenia (HCC) ? ? PAST SURGICAL HISTORY PAST SURGICAL HISTORY Procedure Laterality Date - ABD AORTIC ANEURYSM REPAIR ? ? - CORONARY STENT EA VESSEL ? 3-2008 ? x 2, drug eluting - ILIAC SLEEPING BAG FILLER W/WO STENT ? ? - PACEMAKER DUAL CHAMBER TIER 0 ? 4-2012 - PAST SURGICAL HISTORY OF ? ? ? resection lobe of lung,,AAA ? FAMILY HISTORY FAMILY HISTORY Problem Relation Age of Onset - No Ocular Disease Mother ? - other (TB) Mother ? - Stroke Father ? - No Ocular Disease Father ? - Cancer Brother ? - Kidney Disease Sister ? ? SOCIAL HISTORY SOCIAL HISTORY Social History ? Tobacco Use - Smoking status: Current Every Day Smoker - Smokeless tobacco: Never Used - Tobacco comment: PK EVERY 4 DAYS Substance Use Topics - Alcohol use: No - Drug use: No ? ALLERGIES: Dust; Grass Pollen; Mold Spores ? CURRENT MEDICATIONS: CURRENT MEDICATIONS Current Outpatient Medications Medication Sig - atorvastatin (LIPITOR) 40 mg tablet Take 1 tablet by mouth once daily. - metoprolol tartrate, short acting, (LOPRESSOR) 25 mg tablet Take 1 tablet by mouth twice daily. - ezetimibe (ZETIA) 10 mg tablet Take 1 tablet by mouth once daily. - albuterol HFA (VENTOLIN HFA) 90 mcg/actuation inhaler Inhale 2 Puffs as instructed every 4 hours as needed for Wheezing/Shortness of Breath. - lisinopril (ZESTRIL, PRINIVIL) 20 mg tablet Take 1 tablet by mouth once daily. - Fenofibrate (LOFIBRA) 54 mg tablet Take 1 tablet by mouth once daily. - potassium chloride (KLOR-CON 10) 10 mEq tablet Take 1 tablet by mouth once daily. - fluticasone (FLONASE) 50 mcg/actuation nasal spray Use 1 [place] in each nostril daily at bedtime. - PACERONE 100 mg tablet TAKE ONE TABLET BY MOUTH ONCE DAILY - nitroglycerin sublingual (NITROQUICK) 0.4 mg SL tablet Dissolve 0.4 mg under the tongue every 5 minutes as needed. - aspirin, enteric coated (ASPIRIN, ENTERIC COATED) 81 mg EC tablet Take 81 mg by mouth once daily. - senna (SENOKOT) 8.6 mg tab Take 8.6 mg by mouth once daily as needed. - Magnesium 250 mg tab Take 250 mg by mouth once daily. - triamcinolone acetonide (KENALOG) 0.1 % cream Apply 1 application to affected area three times daily. Apply sparingly to area for rash/itching. (Patient not taking: Reported on 06/21/2019 ) ? No current facility-administered medications for this visit. ? ? ? ROS: Card: See present history. Pulm: Negative for cough, hemoptysis, wheezing, COPD, dyspnea or shortness of breath Gastro: No nausea, vomiting, or diarrhea GenUr: No history of dysuria, frequency or incontinence Endo: Negative for cold or heat intolerance, polyuria or polydipsia. Neuro: no focal weakness, focal sensory loss, headache, visual changes, seizure activity, ataxia, speech/language loss. Musculoskeletal: Negative for joint or muscle pain, back pain, or swelling. Infect: no fevers, chills, rigors or night sweats. Skin: Negative for lesions, rash, and itching. Heme: Negative for prolonged bleeding, bruising easily or swollen nodes. The remainder of the review of systems is negative. ? PHYSICAL EXAMINATION: GENERAL: alert cooperative, pleasant oriented x 3 (self, time and place) in no acute distress overweight BP 116/82 Resp 16 Ht 177.8 cm (5' 10 ) Wt 94.3 kg (208 lb) BMI 29.84 kg/m? ? Last 3 Encounter BP Readings: Date: BP: 12/14/2018 110/60 10/09/2018 90/60 07/08/2018 90/60 Last 3 Encounter Pulse Readings: Date: Pulse: 12/14/2018 66 10/09/2018 80 07/08/2018 80 Last 3 Encounter Wt Readings: Date: Wt: 12/14/2018 92.8 kg (204 lb 8 oz) 10/09/2018 93.9 kg (207 lb) 07/08/2018 92.1 kg (203 lb) ? SKIN: warm, dry, no rash. NECK: supple, no palpable masses, no JVD, carotids well felt, no bruits. CARDIAC: Gibson palpable in the 5th intercostal space mid clavicular line, normal S1 and S2, no murmurs, gallops, or rubs. CHEST: Normal respiratory efforts, lungs clear to auscultation bilaterally. ABDOMEN: Soft, no tenderness, rigidity, or masses. No palpable liver or spleen. Normal bowel sounds, no bruits. NEURO: intact cranial nerves II through XII, no motor or sensory deficits in all 4 extremities. EXTREMITIES: No cyanosis, clubbing, or edema. Peripheral pulses well felt. CARDIAC (AND OTHER IMPORTANT) TESTING: PPM Interrogation 07/20/18 Dual lead Pacemaker EVALUATION UNDERLYING RHYTHM: ?Sinus Bradycardia? BATTERY STATUS: Normal with no significant depletion/ longevity remaining 3 years. COUNTERS SINCE 11/24/17: ATRIAL ARRHYTHMIAS: There have been 2 triggered episodes of atrial high rates with no EGMs each lasting VENTRICULAR ARRHYTHMIAS: There have been no ventricular detections since the last evaluation. LEAD MEASUREMENTS: Capture and sensing are appropriate. The pacing outputs maintain safety margin. Review of the lead impedance trends are normal. ? IMPLANT SITE/ SYMPTOMS: The incision and pocket are pain-free (0/10), well healed and without signs of erosion or infection. No arm swelling, syncope, pre-syncope or device related pocket stimulation.? OTHER DIAGNOSTICS: RV pacing ???<1%.? PROGRAMMING CHANGES MADE TODAY: None FOLLOW UP: 6 month in clinic. ?skruchanRN ? ? Carotid 06/15/18: IMPRESSION ? RIGHT?SIDE Common carotid artery: Plaque visualized without evidence of hemodynamically significant stenosis. Internal carotid artery: 60-79% stenosis. Vertebral artery: Patent and antegrade flow noted.? Subclavian artery: Plaque visualized without evidence of hemodynamically significant stenosis. LEFT SIDE ? Common carotid artery: Plaque visualized without evidence of hemodynamically significant stenosis. Internal carotid artery: 20-39% stenosis. Vertebral artery: Patent and antegrade flow noted. Technologist: Tiffany Ahuja RVT, [facility] Ordering physician: YONI TAPIA Interpreting physician: Shen Barriga MD, RVT ? ? ECHO 06/11/17: CONCLUSIONS: - Technically difficult exam due to body habitus. - Exam indication: Atrial fibrillation - The left ventricle is normal in size. There is moderate septal left ventricular hypertrophy. Left ventricular systolic function is mildly decreased. EF = 46 ? 5% (2D biplane) Left ventricular diastolic function was not evaluated due to AF. - The right ventricle is normal in size. Right ventricular systolic function is mildly decreased. - There is aortic valve sclerosis, no stenosis - Ascending aorta measures 4.2 cm - Patient was tachycardic throughout the exam with HR 110-125 bpm - The patient has not had a prior CC echocardiographic exam for comparison. ? LABS: Cholesterol, Total (mg/dL) Date Value 04/01/2019 115 ? HDL Cholesterol (mg/dL) Date Value 04/01/2019 32 ? LDL Cholesterol (mg/dL) Date Value 04/01/2019 41 ? Triglyceride (mg/dL) Date Value 04/01/2019 211 ? Normal [facility] OPERATIVE NOon 01-14-2020 OPERATIVE NO HNO ID: [id number] Author: Tk Zambrano DO Service: Cardiovascular Medicine Author Type: Physician Type: Operative Report Filed: 01/14/2020 1:01 PM Note Text: OPERATIVE/PROCEDURE REPORT LOG ID: [id number] Surgery/Procedure Date: 01/14/2020 Incision/Procedure Start Time: Incision Close/Procedure End Time: Surgeon(s)/Proceduralis t(s) and Director Of Leadership Development(s): Surgeon(s) and Role: * Tk Zambrano DO - Primary No Additional Staff Procedure(s): DC Cardioversion Anesthesia: Monitored Anesthesia Care Procedure Details: The patient was monitored and administered supplemental oxygen. The NPO status and anticoagulation status were confirmed. Pt has been compliant with anticoagulation. Functioning intravenous access was in place. Adjunct airway equipment and suction were at the bedside and ready to use. Pacemaker equipment was at the bedside and ready to use. Self-adhesive countershock/pacing pads were applied in the anterior/posterior configuration. The patient was sedated with propofol. The patient underwent a single external synchronized biphasic countershock with a maximal energy of 200 J. The patient converted to normal sinus rhythm. The patient tolerated the procedure without apparent complications. Pre-Op/Pre-Procedure Diagnosis: AF Post-Op/Post-Procedure Diagnosis: NSR Estimated Blood Loss: 0 ml Specimens: None Implantable Devices: None Drains: None Complications: None I performed the entire procedure without any resident or fellow trainee. SIGNATURE: Tk Zambrano DO [facility] PATIENT NAME: Thanh Coleman DATE: January 14, 2020 TIME: 1:01 PM MOBILE / CONTACT #: [facility] PT EDon 01-14-2020 PT ED HNO ID: [id number] Author: Johnna StylesRn) CELESTINE Wang Service: Nursing Author Type: Registered Nurse Type: Patient Education Filed: 01/14/2020 2:21 PM Note Text: POST OP LEARNING RESPONSE INSTRUCTION PROVIDED TO: Patient METHOD OF INSTRUCTION: Written instruction - handouts Verbal instruction PATIENT / FAMILY RESPONSE: Information received as demonstrated by interest and questions FOLLOW-UP PLAN: Patient instructed to call with any further issues SUPPLEMENTAL MATERIAL: None REFERRAL (RECOMMENDATION): None Electronically Signed By: Johnna Wang RN In Department: [facility] PT ED HNO ID: [id number] Author: Coral StylesRn) CELESTINE Manzo Service: ? Author Type: Registered Nurse Type: Patient Education Filed: 01/14/2020 11:10 AM Note Text: PRE OP LEARNING ASSESSMENT PROCEDURE/SURGERY: Cardioversion READINESS TO LEARN COGNITIVE ABILITY: Alert and oriented MOTIVATION TO LEARN: Interested FAMILY SUPPORT: Unable to assess - Family not present PATIENT LEARNS BEST BY: Verbal Instruction FACTORS AFFECTING LEARNING: None PHYSICAL LIMITATIONS AFFECTING LEARNING: None Electronically Signed By: Coral Manzo RN In Department: [facility] HOSPon 01-04-2020 HOSP Patient:Thanh Coleman MRN: Height:5' 10 (1.778 m) Weight:No patient weight recorded within the last 30 days. Outpatient Medications as of 01/14/20: potassium chloride (KLOR-CON 10) 10 mEq tablet apixaban (ELIQUIS) 2.5 mg tab tab(s) lisinopril (ZESTRIL, PRINIVIL) 20 mg tablet amiodarone (PACERONE) 100 mg tablet atorvastatin (LIPITOR) 40 mg tablet metoprolol tartrate, short acting, (LOPRESSOR) 25 mg tablet ezetimibe (ZETIA) 10 mg tablet albuterol HFA (VENTOLIN HFA) 90 mcg/actuation inhaler Fenofibrate (LOFIBRA) 54 mg tablet fluticasone (FLONASE) 50 mcg/actuation nasal spray nitroglycerin sublingual (NITROQUICK) 0.4 mg SL tablet aspirin, enteric coated (ASPIRIN, ENTERIC COATED) 81 mg EC tablet senna (SENOKOT) 8.6 mg tab Magnesium 250 mg tab Admission/Clinic Administered Medications as of 01/14/20: Patient has no admission medications. 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 [K31.811] Dyslipidemia [E78.5] Tobacco abuse [Z72.0] Encounter for monitoring anti-arrhythmic therapy [Z51.81, Z79.899] 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] Chronic obstructive pulmonary disease (HCC) [J44.9] CKD (chronic kidney disease) [N18.9] Allergic rhinitis [J30.9] Essential hypertension [I10] CKD (chronic kidney disease) stage 3, GFR 30-59 ml/min (HCC) [N18.3] CAD (coronary artery disease) [I25.10] Aortic aneurysm (HCC) [I71.9] Abnormal cholesterol test [E78.9] COPD (chronic obstructive pulmonary disease) (HCC) [J44.9] H/O right heart catheterization [Z98.890] History of heart attack [I25.2] Neuropathy [G62.9] Thrombocytopenia (HCC) [D69.6] Hypertriglyceridemia [E78.1] Low HDL (under 40) [E78.6] 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] History of abdominal aortic aneurysm repair [Z98.890] COPD (chronic obstructive pulmonary disease) with chronic bronchitis (HCC) [J44.9] Chronic seasonal allergic rhinitis due to pollen [J30.1] Stage 3 chronic kidney disease (HCC) [N18.3] Coronary artery disease due to lipid rich plaque [I25.10, I25.83] 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 His BP was 107/64 HR 120 and irregularly irregular. Patient is asymptomatic. She is aware patient is scheduled for cardioversion on 01/13. Leslie Marina DO 01/05/2020 5:13 PM Signed Noted Boo Marina DO Progress Notes ([facility]): Lucrecia Kruger RN, RN 01/03/2020 1:33 PM Signed Pt scheduled for cardioversion 01/12 at 1pm in [place]. Reminded to be NPO after midnight and continue to take eliquis every day and to let us know if he misses a dose. Pt states understanding. 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 Lucrecia Kruger RN, RN 01/03/2020 1:57 PM Signed Pt called to reschedule cardioversion to the 25th d/t ride Normal [facility] STRESS TEST EXERCISEon 07-07 STRESS TEST EXERCISE NAME : THANH COLEMAN PID : [id number] : 1935 Gender : Male Race : ORD : [id number] Procedure Date : Jul 08 2019 13:03:23 Edit Date : Jul 12 2019 14:44:05 Protocol Name : MODBRUCE Time In Exercise Phase : 00:07:14 Max. Systolic BP : 140 mmHg Max Diastolic BP : 86 mmHg Max Heart Rate : 112 BPM Max Predicted Heart Rate : 137 BPM Recovery ECG Response (OLD) : Reason For Termination : Shortness of breath Test Reason : CAD without Angina Location :[facility] Overread By : MD JORGE,QARAB Edited By : Keli Ovalle Referred By : LUKE [place]ACH Acquired by : BRITTANY HOBBS [facility] 07-07-2019 [facility] Telephone ([facility]) THANH COLEMAN ([id number]) 1935 M Date Time Provider Department 07/07/19 SANGEETA MERINO (RN) [facility] During your visit today, we recorded the following information about you: Sangeeta Merino RN, RN 07/07/2019 12:37 PM Signed Spoke with patient regarding reminder for stress test tomorrow and given instructions. Allergies As of Date: 07/07/2019 Noted Allergy Reaction DUST 05/29/2017 14 - Other: See Comments GRASS POLLEN 05/29/2017 14 - Other: See Comments MOLD SPORES 05/29/2017 14 - Other: See Comments Date Reviewed: 06/21/2019 Reviewed by: Darlin Magallon - Fully Assessed Reason for Visit: Reminder Call [[id number]] Prescriptions as of 07/07/2019 Sig: PERFLUTREN LIPID MICROSPHERES* Inject 1.3 mL intravenously a* ATORVASTATIN 40 MG TABLET Take 1 tablet by mouth once d* METOPROLOL TARTRATE 25 MG TAB* Take 1 tablet by mouth twice * EZETIMIBE 10 MG TABLET Take 1 tablet by mouth once d* ALBUTEROL SULFATE HFA 90 MCG/* Inhale 2 Puffs as instructed * LISINOPRIL 20 MG TABLET Take 1 tablet by mouth once d* FENOFIBRATE 54 MG TABLET Take 1 tablet by mouth once d* POTASSIUM CHLORIDE ER 10 MEQ * Take 1 tablet by mouth once d* FLUTICASONE PROPIONATE 50 MCG* Use 1 [place] in each nostril d* PACERONE 100 MG TABLET TAKE ONE TABLET BY MOUTH ONCE* TRIAMCINOLONE ACETONIDE 0.1 %* Apply 1 application to affect* Patient not taking: Reported on 06/21/2019 NITROGLYCERIN 0.4 MG SUBLINGU* Dissolve 0.4 mg under the ton* ASPIRIN 81 MG TABLET,DELAYED * Take 81 mg by mouth once hammad* SENNOSIDES 8.6 MG TABLET Take 8.6 mg by mouth once niko* MAGNESIUM 250 MG TABLET Take 250 mg by mouth once niko* Problem List As Of Date 07/07/2019 Noted Resolved Chronic rhinitis [J31.0] 06/30/2014 Cerumen impaction [H61.20] 06/30/2014 Chronic otitis externa [H60.60] 06/30/2014 Presence of drug coated stent in left circumfle*08/10/2015 Asymptomatic LV dysfunction [I51.9] 08/10/2015 History of AR (myocardial infarction) [I25.2] 08/10/2015 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] 08/10/2015 S/P insertion of iliac artery stent [Z95.828] 08/10/2015 Pacemaker [Z95.0] 08/10/2015 Sick sinus syndrome (HCC) [I49.5] 08/10/2015 Atrial fibrillation, persistent (HCC) [I48.19] 08/10/2015 Gastrointestinal hemorrhage associated with ang*08/10/2015 Dyslipidemia [E78.5] 08/10/2015 Tobacco abuse [Z72.0] 08/10/2015 Encounter for monitoring anti-arrhythmic therap*08/10/2015 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] 08/10/2015 Chronic obstructive pulmonary disease (HCC) [J4*01/29/2016 CKD (chronic kidney disease) [N18.9] 06/19/2016 Allergic rhinitis [J30.9] 06/19/2016 Essential hypertension [I10] 06/19/2016 CKD (chronic kidney disease) stage 3, GFR 30-59*12/21/2015 CAD (coronary artery disease) [I25.10] More... Aortic aneurysm (HCC) [I71.9] More... 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]07/29/2016 History of abdominal aortic aneurysm repair [Z9*07/29/2016 COPD (chronic obstructive pulmonary disease) wi*07/08/2017 Chronic seasonal allergic rhinitis due to polle*07/08/2017 Stage 3 chronic kidney disease (HCC) [N18.3] 10/08/2017 Coronary artery disease due to lipid rich plaqu*10/08/2017 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] 04/08/2018 Albuminuria [R80.9] 05/18/2018 Encounter Status:Closed by SANGEETA MERINO on 07/07/19 [facility] 07-05-2019 [facility] Telephone ([facility]) THANH COLEMAN ([id number]) 1935 M Date Time Provider Department 07/05/19 SANGEETA MERINO (RN) [facility] During your visit today, we recorded the following information about you: Allergies As of Date: 07/05/2019 Noted Allergy Reaction DUST 05/29/2017 14 - Other: See Comments GRASS POLLEN 05/29/2017 14 - Other: See Comments MOLD SPORES 05/29/2017 14 - Other: See Comments Date Reviewed: 06/21/2019 Reviewed by: Darlin Magallon - Fully Assessed Reason for Visit: Reminder Call [[id number]] Prescriptions as of 07/05/2019 Sig: PERFLUTREN LIPID MICROSPHERES* Inject 1.3 mL intravenously a* ATORVASTATIN 40 MG TABLET Take 1 tablet by mouth once d* METOPROLOL TARTRATE 25 MG TAB* Take 1 tablet by mouth twice * EZETIMIBE 10 MG TABLET Take 1 tablet by mouth once d* ALBUTEROL SULFATE HFA 90 MCG/* Inhale 2 Puffs as instructed * LISINOPRIL 20 MG TABLET Take 1 tablet by mouth once d* FENOFIBRATE 54 MG TABLET Take 1 tablet by mouth once d* POTASSIUM CHLORIDE ER 10 MEQ * Take 1 tablet by mouth once d* FLUTICASONE PROPIONATE 50 MCG* Use 1 [place] in each nostril d* PACERONE 100 MG TABLET TAKE ONE TABLET BY MOUTH ONCE* TRIAMCINOLONE ACETONIDE 0.1 %* Apply 1 application to affect* Patient not taking: Reported on 06/21/2019 NITROGLYCERIN 0.4 MG SUBLINGU* Dissolve 0.4 mg under the ton* ASPIRIN 81 MG TABLET,DELAYED * Take 81 mg by mouth once hammad* SENNOSIDES 8.6 MG TABLET Take 8.6 mg by mouth once niko* MAGNESIUM 250 MG TABLET Take 250 mg by mouth once niko* Problem List As Of Date 07/05/2019 Noted Resolved Chronic rhinitis [J31.0] 06/30/2014 Cerumen impaction [H61.20] 06/30/2014 Chronic otitis externa [H60.60] 06/30/2014 Presence of drug coated stent in left circumfle*08/10/2015 Asymptomatic LV dysfunction [I51.9] 08/10/2015 History of AR (myocardial infarction) [I25.2] 08/10/2015 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] 08/10/2015 S/P insertion of iliac artery stent [Z95.828] 08/10/2015 Pacemaker [Z95.0] 08/10/2015 Sick sinus syndrome (HCC) [I49.5] 08/10/2015 Atrial fibrillation, persistent (HCC) [I48.19] 08/10/2015 Gastrointestinal hemorrhage associated with ang*08/10/2015 Dyslipidemia [E78.5] 08/10/2015 Tobacco abuse [Z72.0] 08/10/2015 Encounter for monitoring anti-arrhythmic therap*08/10/2015 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] 08/10/2015 Chronic obstructive pulmonary disease (HCC) [J4*01/29/2016 CKD (chronic kidney disease) [N18.9] 06/19/2016 Allergic rhinitis [J30.9] 06/19/2016 Essential hypertension [I10] 06/19/2016 CKD (chronic kidney disease) stage 3, GFR 30-59*12/21/2015 CAD (coronary artery disease) [I25.10] More... Aortic aneurysm (HCC) [I71.9] More... 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]07/29/2016 History of abdominal aortic aneurysm repair [Z9*07/29/2016 COPD (chronic obstructive pulmonary disease) wi*07/08/2017 Chronic seasonal allergic rhinitis due to polle*07/08/2017 Stage 3 chronic kidney disease (HCC) [N18.3] 10/08/2017 Coronary artery disease due to lipid rich plaqu*10/08/2017 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] 04/08/2018 Albuminuria [R80.9] 05/18/2018 Encounter Status:Closed by SANGEETA MERINO on 07/05/19 [facility] 06-16-2017 [facility] Office Visit (AGCARDWST) S THANH LOPEZ ([id number]) 1935 MDate Time Provider Department06/16/17 3:00 PM YONI TAPIA During your visit today, we recorded the following information about you: Pulse Blood pressure Weight Height 84/minute 114/80 93 kg 1.803 Latonia Tapia MD 06/16/2017 4:36 PM SignedPERTINENT CARDIAC HISTORYASHD - PCI Cx, D1 2008Cardiomyopathy - ischemic EF 45%Carotid artery diseasePAFSSS - PPM 08/01GI bleed - angiodysplasia of stomach and duodenum, no a/cHTNHLTobaccoismAAA - repair, including iliacsADHERENCE TO GUIDELINESACE-I or ARB for HF with prior LVEFANDlt;40 (NQF 0081) - N/AASA or Plavix for ASHD (NQF 0067) - metBeta isha for ASHD with prior AR or prior LVEFANDlt;40 (NQF 0070) - N/ABeta isha for HF with prior LVEFANDlt;40 (NQF 0083) - N/AACE-I or ARB for ASHD with DM or prior LVEFANDlt;40 (NQF 0066) - metStatin therapy for ASHD or FHL or DM - metBMI documented and plan if ANDgt;25 (NQF 0421) - lifestyle recommendation formTobacco use screening and referral (NQF 0028) - lifestyle recommendation formRecommendation for whole food, plant based diet - lifestyle recommendation formCLINICAL IMPRESSION/PLAN:Thanh Coleman had an episode of tachycardia which was picked up duringechocardiogram. Most recent pacemaker checks have shown no events. He is a poorcandidate for warfarin anyway due to angiodysplasia of the stomach. We willcontinue to monitor for arrhythmias during his pacemaker checks. We will notrestart digoxin at this timeHe's been advised to continue his current medication. He will continueamiodarone at the current dose. If he has palpitations, he has been advised tocontact me.Written and verbal health teaching given to patient, patient verbalizesunderstanding and agrees with treatment plan.This note was generated using Encision voice recognition system, and there may besome incorrect words, spellings, and punctuation that were not noted inchecking the note before saving.DIAGNOSIS FOR VISIT:TachycardiaASHDHI STORY OF PRESENT ILLNESSThanh Coleman returns for follow-up of his atrial arrhythmia. He was notedduring his echocardiogram last week to have a heart rate in the 120 range. Hewas unaware of this. Upon discussion, he has discontinued his amiodarone andhas not picked up his refill. He was advised to load load himself with 200milligrams twice daily over the weekend and then restart at 100 milligramsdaily. He reports that he did just. He was unaware of any irregular heartbeat.He reports that his numbness in his toes is better. He has had no chestdiscomfort. He denies orthopnea, edema, palpitations, TIAs, amaurosis. Hisexercise tolerance has been stable.ALLERGIES:ALLERG IESAllergen Reactions- Dust Other: See Comments- Grass Pollen Other: See Comments- Mold Spores Other: See CommentsCURRENT OUTPATIENT MEDICATIONS:amiodarone (PACERONE) 100 mg tablet Take 1 tablet by mouth once daily.amoxicillin-clavu lanic acid (AUGMENTIN) 875-125 mg per tablet Take 1 tablet bymouth twice daily for 7 days.lisinopril (ZESTRIL, PRINIVIL) 20 mg tablet TAKE ONE TABLET BY MOUTH ONCE DAILYKLOR-CON M10 10 mEq tablet TAKE ONE TABLET BY MOUTH ONCE DAILYfluticasone (FLONASE) 50 mcg/actuation nasal spray Use 1 [place] in each nostrildaily at bedtime.atorvastatin (LIPITOR) 40 mg tablet Take 1 tablet by mouth once daily.Fenofibrate (LOFIBRA) 54 mg tablet Take 1 tablet by mouth once daily.metoprolol tartrate, short acting, (LOPRESSOR) 25 mg tablet Take 1 tablet bymouth twice daily.albuterol HFA (PROAIR HFA) 90 mcg/actuation inhaler Inhale 2 Puffs asinstructed.nitroglyce rin sublingual (NITROQUICK) 0.4 mg SL tablet Dissolve 0.4 mg underthe tongue every 5 minutes as needed.aspirin, enteric coated (ASPIRIN, ENTERIC COATED) 81 mg EC tablet Take 81 mg bymouth once daily.senna (SENOKOT) 8.6 mg tab Take 8.6 mg by mouth once daily as needed.POTASSIUM CHLORIDE (KLOR-CON 10 ORAL) Take by mouth.Magnesium 250 mg tab Take 250 mg by mouth once daily.PHYSICAL EXAMINATION:VITAL SIGNS: BP 114/80 Pulse 84 Ht 5' 11ANDquot; (1.80m) Wt 205 lb 1.6 oz(93.0kg) BMI 28.62 kg/(m2).Chest: Clear to percussion and auscultation. Trachea is midline. Air entry isequal. Cardiac: Regular rhythm. S1 and S2 are normal. PMI is nondisplaced.There is a 2/6 systolic ejection murmur. Carotids are brisk with soft earlybilateral bruits. JVP is less than 10 cm. Abdomen: Soft and nontender. Thereare no pulsatile masses or bruits. No liver enlargement. Bowel sounds areactive. Extremities: No edema. Pulses are diminished but symmetrical.EKG today shows atrial pacemaker. There is no change in QRS.Echocardiogram shows slight improvement in his ejection fraction. Heart ratewas 120 during the study.Electronically Signed:Yoni Tapia MDFebruary 2017 3:10 PMCC: Jose Lyles MD 06/16/2017 3:10 PM SignedLIFESTYLE CHANGEA healthy lifestyle is the most important component of your overall treatmentplan. Please give serious thought to the following areas and commit to makinglong term changes.EAT A WHOLE FOOD, PLANT BASED DIETThe nutrition your body gets is more important than the medicine you take.What matters most is the overall way you eat. We encourage you to minimize theuse of animal products (which include dairy and all meats except fatty fish)and use whole, unprocessed plant foods to provide your protein, vitamins andother nutrients. We have a lot of information to share with you on this topic. We also hold Shared Medical Appointments, where you can come visit with in the company of other patients and spend over an hour talking aboutthe challenges of changing the way you eat. This is not a ANDquot;dietANDquot;.It is a way of life that you will keep with you.EXERCISE REGULARLYIt is not important to spend hours in the gym, lifting weights and perspiringheavily. A total of 2-3 hours per week of aerobic (causing you to bemoderately short of breath) exercise is sufficient to improve your health.Talk to us before you begin a new exercise program, if you have heart diseaseor experience shortness of breath or chest pain.REDUCE STRESSChronic emotional and physical stress leads to disease. Ways of reducingstress include meditation, visualization, prayer, yoga and other forms ofrelaxation therapy. Consistency is the cabello. Find a technique that works foryou and do it every day.CULTIVATE RELATIONSHIPSLoneliness and isolation have a major negative impact on health. Seek outothers who can love, care for and nurture you. Avoid hurtful relationships.MAINTAIN IDEAL BODY WEIGHTThe best way to do this is to do all the things above. Our bodies naturallyfind the right weight if we keep moving and feed ourselves the right food. Ifyour BMI is greater than 25, we strongly recommend a referral to a weightmanagement program. Please speak to us or your family physician aboutavailable programs.AVOID NICOTINE IN ALL FORMSThis includes all tobacco products, whether chewed, smoked, vaped, or rubbed onthe skin. Smoking cessation programs, which can make use of tobaccosubstitutes, medications to suppress cravings and behavior management, areavailable. Please contact your family physician about programs in your area.Referring Provider: YONI TAPIA [[id number]]Allergies As of Date: 06/16/2017 Noted Allergy ReactionDUST 05/29/2017 14 - Other: See CommentsGRASS POLLEN 05/29/2017 14 - Other: See CommentsMOLD SPORES 05/29/2017 14 - Other: See CommentsDate Reviewed: 06/16/2017Reviewed by: Juan Carlos (Rn) CELESTINE Hammond - Fully AssessedReason for Visit: Follow Up [171]Primary Visit Diagnosis:PAF (paroxysmal atrial fibrillation) ([facility]) [I48.0]Order(s):ECG B/O W INTERP (MED OFFICE) [ECG06] Order #: [id number] as of 06/16/2017 Sig: AMIODARONE 100 MG TABLET Take 1 tablet by mouth once d* AMOXICILLIN 875 MG-POTASSIUM * Take 1 tablet by mouth twice * LISINOPRIL 20 MG TABLET TAKE ONE TABLET BY MOUTH ONCE* KLOR-CON M10 MEQ TABLET,EXTEN* TAKE ONE TABLET BY MOUTH ONCE* FLUTICASONE 50 MCG/ACTUATION * Use 1 [place] in each nostril d* ATORVASTATIN 40 MG TABLET Take 1 tablet by mouth once d* FENOFIBRATE 54 MG TABLET Take 1 tablet by mouth once d* METOPROLOL TARTRATE 25 MG TAB* Take 1 tablet by mouth twice * ALBUTEROL SULFATE HFA 90 MCG/* Inhale 2 Puffs as instructed. NITROGLYCERIN 0.4 MG SUBLINGU* Dissolve 0.4 mg under the ton* ASPIRIN 81 MG TABLET,DELAYED * Take 81 mg by mouth once hammad* SENNOSIDES 8.6 MG TABLET Take 8.6 mg by mouth once niko* KLOR-CON 10 ORAL Take by mouth. 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] INVALID FOR* S/P insertion of iliac artery stent [Z95.828] INVALID FOR* Pacemaker [Z95.0] INVALID FOR* Sick sinus syndrome (HCC) [I49.5] INVALID FOR* Atrial fibrillation, persistent (HCC) [I48.1] INVALID FOR* Gastrointestinal hemorrhage associated with ang*INVALID FOR* Dyslipidemia [E78.5] INVALID FOR* Tobacco abuse [Z72.0] INVALID FOR* Encounter for monitoring anti-arrhythmic therap*INVALID FOR* 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] INVALID FOR* Chronic obstructive pulmonary disease (HCC) [J4*INVALID FOR* CKD (chronic kidney disease) [N18.9] INVALID FOR* Allergic rhinitis [J30.9] INVALID FOR* Essential hypertension [I10] INVALID FOR* CKD (chronic kidney disease) stage 3, GFR 30-59*INVALID FOR* CAD (coronary artery disease) [I25.10] More... Aortic aneurysm (HCC) [I71.9] More... 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 Please give serious thought to the following areas and commit to making long goods drier changes. EAT A WHOLE FOOD, PLANT BASED DIET The nutrition your body gets is more important than the medicine you take. What matters most is the overall way you eat. We encourage you to minimize the use of animal products (which include dairy and all meats except fatty fish) and use whole, unprocessed plant foods to provide your protein, vitamins and other nutrients. We have a lot of information to share with you on this topic. We also hold Shared Medical Appointments, where you can come visit with Dr. Tapia in the company of other patients and spend over an hour talking about the challenges of changing the way you eat. This is not a diet . It is a way of life that you will keep with you. EXERCISE REGULARLY It is not important to spend hours in the gym, lifting weights and perspiring heavily. A total of 2-3 hours per week of aerobic (causing you to be moderately short of breath) exercise is sufficient to improve your health. Talk to us before you begin a new exercise program, if you have heart disease or experience shortness of breath or chest pain. REDUCE STRESS Chronic emotional and physical stress leads to disease. Ways of reducing stress include meditation, visualization, prayer, yoga and other forms of relaxation therapy. Consistency is the cabello. Find a technique that works for you and do it every day. CULTIVATE RELATIONSHIPS Loneliness and isolation have a major negative impact on health. Seek out others who can love, care for and nurture you. Avoid hurtful relationships. MAINTAIN IDEAL BODY WEIGHT The best way to do this is to do all the things above. Our bodies naturally find the right weight if we keep moving and feed ourselves the right food. If your BMI is greater than 25, we strongly recommend a referral to a weight management program. Please speak to us or your family physician about available programs. AVOID NICOTINE IN ALL FORMS This includes all tobacco products, whether chewed, smoked, vaped, or rubbed on the skin. Smoking cessation programs, which can make use of tobacco substitutes, medications to suppress cravings and behavior management, are available. Please contact your family physician about programs in your area.Classic SmartForms filed during this visit:Extended VitalsEncounter Number: [id number] Status:Closed by YONI TAPIA MD on 06/16/17 [facility] PROGRESSon 06-16-2017 PROGRESS HNO ID: [id number]: Yoni Dunaway: (none)Author Type: PhysicianType: Progress NotesFiled: 06/16/2017 4:36 PMNote Text:PERTINENT CARDIAC HISTORYASHD - PCI Cx, D1 2009Cardiomyopathy - ischemic EF 45%Carotid artery diseasePAFSSS - PPM 08/01GI bleed - angiodysplasia of stomach and duodenum, no a/cHTNHLTobaccoismAAA - repair, including iliacsADHERENCE TO GUIDELINESACE-I or ARB for HF with prior LVEF<40 (NQF 0081) - N/AASA or Plavix for ASHD (NQF 0067) - metBeta isha for ASHD with prior AR or prior LVEF<40 (NQF 0070) - N/ABeta isha for HF with prior LVEF<40 (NQF 0083) - N/AACE-I or ARB for ASHD with DM or prior LVEF<40 (NQF 0066) - metStatin therapy for ASHD or FHL or DM - metBMI documented and plan if >25 (NQF 0421) - lifestyle recommendation formTobacco use screening and referral (NQF 0028) - lifestyle recommendationformRecom mendation for whole food, plant based diet - lifestyle recommendationformCLINI EFRAIN IMPRESSION/PLAN:Thanh Coleman had an episode of tachycardia which was picked up duringechocardiogram. Most recent pacemaker checks have shown no events. He is apoor candidate for warfarin anyway due to angiodysplasia of the stomach.We will continue to monitor for arrhythmias during his pacemaker checks.We will not restart digoxin at this timeHe's been advised to continue his current medication. He will continueamiodarone at the current dose. If he has palpitations, he has beenadvised to contact me.Written and verbal health teaching given to patient, patient verbalizesunderstanding and agrees with treatment plan.This note was generated using Flypad recognition system, and theremay be some incorrect words, spellings, and punctuation that were notnoted in checking the note before saving.DIAGNOSIS FOR VISIT:TachycardiaASHDHI STORY OF PRESENT ILLNESSThanh Coleman returns for follow-up of his atrial arrhythmia. He was notedduring his echocardiogram last week to have a heart rate in the 120 range.He was unaware of this. Upon discussion, he has discontinued hisamiodarone and has not picked up his refill. He was advised to load loadhimself with 200 milligrams twice daily over the weekend and then restartat 100 milligrams daily. He reports that he did just. He was unaware ofany irregular heartbeat.He reports that his numbness in his toes is better. He has had no chestdiscomfort. He denies orthopnea, edema, palpitations, TIAs, amaurosis. Hisexercise tolerance has been stable.ALLERGIES:ALLERG IESAllergen Reactions- Dust Other: See Comments- Grass Pollen Other: See Comments- Mold Spores Other: See CommentsCURRENT OUTPATIENT MEDICATIONS:amiodarone (PACERONE) 100 mg tablet Take 1 tablet by mouth once daily.amoxicillin-clavu lanic acid (AUGMENTIN) 875-125 mg per tablet Take 1tablet by mouth twice daily for 7 days.lisinopril (ZESTRIL, PRINIVIL) 20 mg tablet TAKE ONE TABLET BY MOUTH ONCEDAILYKLOR-CON M10 10 mEq tablet TAKE ONE TABLET BY MOUTH ONCE DAILYfluticasone (FLONASE) 50 mcg/actuation nasal spray Use 1 [place] in eachnostril daily at bedtime.atorvastatin (LIPITOR) 40 mg tablet Take 1 tablet by mouth once daily.Fenofibrate (LOFIBRA) 54 mg tablet Take 1 tablet by mouth once daily.metoprolol tartrate, short acting, (LOPRESSOR) 25 mg tablet Take 1 tabletby mouth twice daily.albuterol HFA (PROAIR HFA) 90 mcg/actuation inhaler Inhale 2 Puffs asinstructed.nitroglyce rin sublingual (NITROQUICK) 0.4 mg SL tablet Dissolve 0.4 mgunder the tongue every 5 minutes as needed.aspirin, enteric coated (ASPIRIN, ENTERIC COATED) 81 mg EC tablet Take 81mg by mouth once daily.senna (SENOKOT) 8.6 mg tab Take 8.6 mg by mouth once daily as needed.POTASSIUM CHLORIDE (KLOR-CON 10 ORAL) Take by mouth.Magnesium 250 mg tab Take 250 mg by mouth once daily.PHYSICAL EXAMINATION:VITAL SIGNS: BP 114/80 Pulse 84 Ht 5' 11 (1.80m) Wt 205 lb 1.6 oz(93.0kg) BMI 28.62 kg/(m2).Chest: Clear to percussion and auscultation. Trachea is midline. Airentry is equal. Cardiac: Regular rhythm. S1 and S2 are normal. PMI isnondisplaced. There is a 2/6 systolic ejection murmur. Carotids arebrisk with soft early bilateral bruits. JVP is less than 10 cm. Abdomen:Soft and nontender. There are no pulsatile masses or bruits. No liverenlargement. Bowel sounds are active. Extremities: No edema. Pulses arediminished but symmetrical.EKG today shows atrial pacemaker. There is no change in QRS.Echocardiogram shows slight improvement in his ejection fraction. Heartrate was 120 during the study.Electronically Signed:Trinity Ramirezuary 2017 3:10 [facility]: DO Trina Lyles [facility] Rissa 06-11-2017 [facility] Telephone (AGCARDWST) THANH Shelton AMS ([id number]) 1935 [facility] YNOI TAPIA AGCARDWST During your visit today, we recorded the following information about you:Hudson Hagen LPN 06/11/2017 4:10 PM SignedPatient states that he has been noticing some numbness type feeling in histoes. He states that if you brush against them you can feel that, however theyjust feel different. He denies injury, discoloration or other complaints. Hestates that they look 'normal'. Came on about a week ago. He states he wasconcerned that this could be from medication. Please advise further. Advised tocall promptly or to go to the ER for discoloration or other major changes inthe toes.Jered Dorsey MD 06/11/2017 4:44 PM SignedNoted and agree. He mentioned this in the office. He is likely developing aneuropathy and I recommended that he be seen in primary care for this.Hardy Ramirez RN 06/12/2017 9:[address] S[address]Patient notified of Dr. Tapia's instructions.Jimbo Rocha RN 06/12/2017 11:07 AM SignedPatient returned call and was notified of Dr Tapia's recommendations.Ronald Phamergies As of Date: 06/11/2017 Noted Allergy ReactionDUST 05/29/2017 14 - Other: See CommentsGRASS POLLEN 05/29/2017 14 - Other: See CommentsMOLD SPORES 05/29/2017 14 - Other: See CommentsDate Reviewed: 05/29/2017Reviewed by: Hudson Hagen - Fully AssessedReason for Visit: toe problem [Other]Prescriptions as of 06/11/2017 Sig: AMIODARONE 100 MG TABLET Take 1 tablet by mouth once d* LISINOPRIL 20 MG TABLET TAKE ONE TABLET BY MOUTH ONCE* KLOR-CON M10 MEQ TABLET,EXTEN* TAKE ONE TABLET BY MOUTH ONCE* DIGOXIN 125 MCG TABLET Take 0.125 mg by mouth once d* FLUTICASONE 50 MCG/ACTUATION * Use 1 [place] in each nostril d* ATORVASTATIN 40 MG TABLET Take 1 tablet by mouth once d* FENOFIBRATE 54 MG TABLET Take 1 tablet by mouth once d* METOPROLOL TARTRATE 25 MG TAB* Take 1 tablet by mouth twice * ALBUTEROL SULFATE HFA 90 MCG/* Inhale 2 Puffs as instructed. NITROGLYCERIN 0.4 MG SUBLINGU* Dissolve 0.4 mg under the ton* ASPIRIN 81 MG TABLET,DELAYED * Take 81 mg by mouth once hammad* SENNOSIDES 8.6 MG TABLET Take 8.6 mg by mouth once niko* KLOR-CON 10 ORAL Take by mouth. MAGNESIUM 250 MG TABLET Take 250 mg by mouth once niko*Problem List As Of Date 06/11/2017 Noted Resolved Chronic rhinitis [J31.0] INVALID FOR* Cerumen impaction [H61.20] INVALID FOR* Chronic otitis externa [H60.60] INVALID FOR* Presence of drug coated stent in left circumfle*INVALID FOR* Asymptomatic LV dysfunction [I51.9] INVALID FOR* History of AR (myocardial infarction) [I25.2] INVALID FOR* 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] INVALID FOR* S/P insertion of iliac artery stent [Z95.828] INVALID FOR* Pacemaker [Z95.0] INVALID FOR* Sick sinus syndrome (HCC) [I49.5] INVALID FOR* Atrial fibrillation, persistent (HCC) [I48.1] INVALID FOR* Gastrointestinal hemorrhage associated with ang*INVALID FOR* Dyslipidemia [E78.5] INVALID FOR* Tobacco abuse [Z72.0] INVALID FOR* Encounter for monitoring anti-arrhythmic therap*INVALID FOR* 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] INVALID FOR* Chronic obstructive pulmonary disease (HCC) [J4*INVALID FOR* CKD (chronic kidney disease) [N18.9] INVALID FOR* Allergic rhinitis [J30.9] INVALID FOR* Essential hypertension [I10] INVALID FOR* CKD (chronic kidney disease) stage 3, GFR 30-59*INVALID FOR* CAD (coronary artery disease) [I25.10] More... Aortic aneurysm (HCC) [I71.9] More... 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]INVALID FOR* History of abdominal aortic aneurysm repair [Z9*INVALID FOR* Status:Closed by CELI CORNELIUS on 06/12/17 [facility] Miguel 05-29-2017 OV [facility]AGCARDWST[facility] ([id number][facility] 1935 MDate Time Provider Department05/29/17 1:30 PM YONI TAPIA AGCARDWST During your visit today, we recorded the following information about you: Pulse Blood pressure Weight 78/minute 107/68 92.8 kgYoni Tapia MD 05/29/2017 5:53 PM SignedPERTINENT CARDIAC HISTORYASHD - PCI Cx, D1 2009Cardiomyopathy - ischemic EF 45%Carotid artery diseasePAFSSS - PPM 08/01GI bleed - angiodysplasia of stomach and duodenum, no a/cHTNHLTobaccoismAAA - repair, including iliacsADHERENCE TO GUIDELINESACE-I or ARB for HF with prior LVEFANDlt;40 (NQF 0081) - N/AASA or Plavix for ASHD (NQF 0067) - metBeta isha for ASHD with prior AR or prior LVEFANDlt;40 (NQF 0070) - N/ABeta isha for HF with prior LVEFANDlt;40 (NQF 0083) - N/AACE-I or ARB for ASHD with DM or prior LVEFANDlt;40 (NQF 0066) - metStatin therapy for ASHD or FHL or DM - metBMI documented and plan if ANDgt;25 (NQF 0421) - lifestyle recommendation formTobacco use screening and referral (NQF 0028) - lifestyle recommendation formRecommendation for whole food, plant based diet - lifestyle recommendation formCLINICAL IMPRESSION/PLAN:Thanh Coleman has multiple vascular and cardiac issues, all of which appearstable. He will undergo echocardiogram for reassessment of LV function andvalvular heart disease. Abdominal aortic aneurysm will be assessed withultrasound. Carotid Doppler will be done in the future. His exam today does notsuggest severe disease.We will consider discontinuing digoxin. The indication for this is not clear jose antonio.I advised him to continue his other medication. Blood pressure iswell-controlled. He will continue his active lifestyle. There is no evidence ofactive ischemia.Pacemaker therapy is well tolerated and effective.He's been encouraged to discontinue smoking.I've advised him to contact primary care regarding workup of his peripheralneuropathy.I will see him in 6 months or as needed. If there is increased chest pain orshortness of breath, he is advised to contact me.Written and verbal health teaching given to patient, patient verbalizesunderstanding and agrees with treatment plan.This note was generated using Encision voice recognition system, and there may besome incorrect words, spellings, and punctuation that were not noted inchecking the note before saving.DIAGNOSIS FOR VISIT:ASHDHypertensionH ISTORY OF PRESENT ILLNESSThanh Coleman is a 81-year-old gentleman who is seen in follow-up for multiplecardiac issues, as noted above. He was previously a patient of Dr. aPtel.He reports that he has been very active. He is shoveling snow. He denies chestdiscomfort. Exercise tolerance has been stable. He's had no orthopnea. Hedenies edema, syncope, palpitations, TIAs, amaurosis and claudication.He has developed some numbness in his toes. [facility] . He is not known to be diabetic.He reportedly had pacemaker evaluation done earlier this week at [place].ALLERGIES:ALLERG IESAllergen Reactions- Dust Other: See Comments- Grass Pollen Other: See Comments- Mold Spores Other: See CommentsCURRENT OUTPATIENT MEDICATIONS:amiodarone (PACERONE) 100 mg tablet Take 1 tablet by mouth once daily.lisinopril (ZESTRIL, PRINIVIL) 20 mg tablet TAKE ONE TABLET BY MOUTH ONCE DAILYKLOR-CON M10 10 mEq tablet TAKE ONE TABLET BY MOUTH ONCE DAILYfluticasone (FLONASE) 50 mcg/actuation nasal spray Use 1 [place] in each nostrildaily at bedtime.atorvastatin (LIPITOR) 40 mg tablet Take 1 tablet by mouth once daily.Fenofibrate (LOFIBRA) 54 mg tablet Take 1 tablet by mouth once daily.metoprolol tartrate, short acting, (LOPRESSOR) 25 mg tablet Take 1 tablet bymouth twice daily.albuterol HFA (PROAIR HFA) 90 mcg/actuation inhaler Inhale 2 Puffs asinstructed.nitroglyce rin sublingual (NITROQUICK) 0.4 mg SL tablet Dissolve 0.4 mg underthe tongue every 5 minutes as needed.aspirin, enteric coated (ASPIRIN, ENTERIC COATED) 81 mg EC tablet Take 81 mg bymouth once daily.senna (SENOKOT) 8.6 mg tab Take 8.6 mg by mouth once daily as needed.Magnesium 250 mg tab Take 250 mg by mouth once daily.digoxin (LANOXIN) 125 mcg tablet Take 0.125 mg by mouth once dailyPOTASSIUM CHLORIDE (KLOR-CON 10 ORAL) Take by mouth.PAST MEDICAL HISTORYDiagnosis Date- Abnormal cholesterol test- Aortic aneurysm (HCC) s/p repair AAA- CAD (coronary artery disease) pacemaker, hyperlipidemia, hyperlipidemia- CKD (chronic kidney disease) stage 3, GFR 30-59 ml/min 12/2015- COPD (chronic obstructive pulmonary disease) ([facility])- H/O right heart catheterization- High blood pressure- History of heart attack- Hypertriglyceridemia- Low HDL (under 40)- Neuropathy (HCC)- TB (pulmonary tuberculosis)- Thrombocytopenia (HCC)PAST SURGICAL HISTORYProcedure Laterality Date- ABD AORTIC ANEURYSM REPAIR- CORONARY STENT EA VESSEL 3-2008 x 2, drug eluting- ILIAC SLEEPING BAG FILLER W/WO STENT- PACEMAKER DUAL CHAMBER TIER 0 -2012- PAST SURGICAL HISTORY OF resection lobe of lung,,AAAFAMILY HISTORYProblem Relation Age of Onset- TB [Other] [OTHER] Mother- Stroke Father- Cancer Brother- Kidney Disease SisterSocial History Marital status: Spouse name: Years of education: Number of children:Social History Main Topics Smoking status: Current Every Day Smoker Packs/day: 0.00 Years: 0.00 Smokeless status: Never Used Comment: PK EVERY 3 DAYS Alcohol use: No Drug use: NoREVIEW OF SYSTEMS: General: No chills, fever, weight loss, night sweats.Respiratory: No productive cough. Cardiac: As noted above. GI: No melena.: No dysuria. Musculoskeletal: No myalgias.PHYSICAL EXAMINATION: S/he is alert and in no distress.VITAL SIGNS: BP 107/68 Pulse 78 Wt 204 lb 8 oz (92.8kg)SHEENT: Skin is warm and dry. No xanthelasmas appreciated. Pharynx isbenign. There is no oral cyanosis. Neck: supple. No adenopathy or thyroidenlargement. Chest: Clear to percussion and auscultation. Trachea is midline. Air entry is equal. There is no chest wall tenderness. Cardiac: Regularrhythm. S1 and S2 are normal. PMI is nondisplaced. There is a 2/6 systolicejection murmur. Carotids are brisk with soft bilateral early systolic bruits. JVP is less than 10 cm. Abdomen: Soft and nontender. Obesity limits theexamination. There are no pulsatile masses or bruits. No liver enlargement.Bowel sounds are active. Extremities: Trace edema. Pulses are diminished butsymmetrical. No clubbing or cyanosis. No femoral bruits. Neurologic: Thereis decreased sensation to light touch in the feet. Exam is otherwise grosslynormal S/he is alert and oriented x4.Labs were reviewed. Renal function is moderately impaired. CBC is normal. TSHis normal. LDL was 87.Most recent device check is not available. Prior report describes no episodesof atrial high rate. He has minimal right ventricular pacing.EKG today shows atrial pacing with normal conduction. There is no evidence ofischemia.Electronical ly Signed:Yoni Tapia MDFeuary 2017 2:03 PMCC:Jose Lyles MD 05/29/2017 2:03 PM SignedLIFESTYLE CHANGEA healthy lifestyle is the most important component of your overall treatmentplan. Please give serious thought to the following areas and commit to makinglong term changes.EAT A WHOLE FOOD, PLANT BASED DIETThe nutrition your body gets is more important than the medicine you take.What matters most is the overall way you eat. We encourage you to minimize theuse of animal products (which include dairy and all meats except fatty fish)and use whole, unprocessed plant foods to provide your protein, vitamins andother nutrients. We have a lot of information to share with you on this topic. We also hold Shared Medical Appointments, where you can come visit with in the company of other patients and spend over an hour talking aboutthe challenges of changing the way you eat. This is not a ANDquot;dietANDquot;.It is a way of life that you will keep with you.EXERCISE REGULARLYIt is not important to spend hours in the gym, lifting weights and perspiringheavily. A total of 2-3 hours per week of aerobic (causing you to bemoderately short of breath) exercise is sufficient to improve your health.Talk to us before you begin a new exercise program, if you have heart diseaseor experience shortness of breath or chest pain.REDUCE STRESSChronic emotional and physical stress leads to disease. Ways of reducingstress include meditation, visualization, prayer, yoga and other forms ofrelaxation therapy. Consistency is the cabello. Find a technique that works foryou and do it every day.CULTIVATE RELATIONSHIPSLoneliness and isolation have a major negative impact on health. Seek outothers who can love, care for and nurture you. Avoid hurtful relationships.MAINTAIN IDEAL BODY WEIGHTThe best way to do this is to do all the things above. Our bodies naturallyfind the right weight if we keep moving and feed ourselves the right food. Ifyour BMI is greater than 25, we strongly recommend a referral to a weightmanagement program. Please speak to us or your family physician aboutavailable programs.AVOID NICOTINE IN ALL FORMSThis includes all tobacco products, whether chewed, smoked, vaped, or rubbed onthe skin. Smoking cessation programs, which can make use of tobaccosubstitutes, medications to suppress cravings and behavior management, areavailable. Please contact your family physician about programs in your area.Referring Provider: YONI TAPIA [[id number]]Allergies As of Date: 05/29/2017 Noted Allergy ReactionDUST 05/29/2017 14 - Other: See CommentsGRASS POLLEN 05/29/2017 14 - Other: See CommentsMOLD SPORES 05/29/2017 14 - Other: See CommentsDate Reviewed: 05/29/2017Reviewed by: Hudson Hagen - Fully AssessedReason for Visit: Recheck [92]Primary Visit Diagnosis:ASHD (arteriosclerotic heart disease) [I25.10] Other Visit Diagnoses:Other hyperlipidemia [E78.4] PAF (paroxysmal atrial fibrillation) (HCC) [I48.0] Abdominal aortic aneurysm (AAA) without rupture (HCC) [I71.4]Order(s):ECG B/O W INTERP (MED OFFICE) [ECG06] Order #: [id number] US ABD AORTA COMPLETE VAS LAB [6432040] Order #: [id number] FUTURE ECHO [[id number]] Order #: [id number]: 1 FUTUREPrescriptions as of 05/29/2017 Sig: AMIODARONE 100 MG TABLET Take 1 tablet by mouth once d* LISINOPRIL 20 MG TABLET TAKE ONE TABLET BY MOUTH ONCE* KLOR-CON M10 MEQ TABLET,EXTEN* TAKE ONE TABLET BY MOUTH ONCE* FLUTICASONE 50 MCG/ACTUATION * Use 1 [place] in each nostril d* ATORVASTATIN 40 MG TABLET Take 1 tablet by mouth once d* FENOFIBRATE 54 MG TABLET Take 1 tablet by mouth once d* METOPROLOL TARTRATE 25 MG TAB* Take 1 tablet by mouth twice * ALBUTEROL SULFATE HFA 90 MCG/* Inhale 2 Puffs as instructed. NITROGLYCERIN 0.4 MG SUBLINGU* Dissolve 0.4 mg under the ton* ASPIRIN 81 MG TABLET,DELAYED * Take 81 mg by mouth once hammad* SENNOSIDES 8.6 MG TABLET Take 8.6 mg by mouth once niko* MAGNESIUM 250 MG TABLET Take 250 mg by mouth once niko* DIGOXIN 125 MCG TABLET Take 0.125 mg by mouth once d* KLOR-CON 10 ORAL Take by mouth.Medication notes this encounter DIGOXIN 125 MCG TABLET >> Hudson Hagen LPN 05/29/2017 1:37 PM >> HUDSON HAGEN LPN [facility] May 29, 2017 1:37 PM Not takingProblem List As Of Date 05/29/2017 Noted Resolved Chronic rhinitis [J31.0] INVALID FOR* Cerumen impaction [H61.20] INVALID FOR* Chronic otitis externa [H60.60] INVALID FOR* Presence of drug coated stent in left circumfle*INVALID FOR* Asymptomatic LV dysfunction [I51.9] INVALID FOR* History of AR (myocardial infarction) [I25.2] INVALID FOR* 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] INVALID FOR* S/P insertion of iliac artery stent [Z95.828] INVALID FOR* Pacemaker [Z95.0] INVALID FOR* Sick sinus syndrome (HCC) [I49.5] INVALID FOR* Atrial fibrillation, persistent (HCC) [I48.1] INVALID FOR* Gastrointestinal hemorrhage associated with ang*INVALID FOR* Dyslipidemia [E78.5] INVALID FOR* Tobacco abuse [Z72.0] INVALID FOR* Encounter for monitoring anti-arrhythmic therap*INVALID FOR* 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] INVALID FOR* Chronic obstructive pulmonary disease (HCC) [J4*INVALID FOR* CKD (chronic kidney disease) [N18.9] INVALID FOR* Allergic rhinitis [J30.9] INVALID FOR* Essential hypertension [I10] INVALID FOR* CKD (chronic kidney disease) stage 3, GFR 30-59*INVALID FOR* CAD (coronary artery disease) [I25.10] More... Aortic aneurysm (HCC) [I71.9] More... 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 Please give serious thought to the following areas and commit to making residential changes. EAT A WHOLE FOOD, PLANT BASED DIET The nutrition your body gets is more important than the medicine you take. What matters most is the overall way you eat. We encourage you to minimize the use of animal products (which include dairy and all meats except fatty fish) and use whole, unprocessed plant foods to provide your protein, vitamins and other nutrients. We have a lot of information to share with you on this topic. We also hold Shared Medical Appointments, where you can come visit with Dr. Tapia in the company of other patients and spend over an hour talking about the challenges of changing the way you eat. This is not a diet . It is a way of life that you will keep with you. EXERCISE REGULARLY It is not important to spend hours in the gym, lifting weights and perspiring heavily. A total of 2-3 hours per week of aerobic (causing you to be moderately short of breath) exercise is sufficient to improve your health. Talk to us before you begin a new exercise program, if you have heart disease or experience shortness of breath or chest pain. REDUCE STRESS Chronic emotional and physical stress leads to disease. Ways of reducing stress include meditation, visualization, prayer, yoga and other forms of relaxation therapy. Consistency is the cabello. Find a technique that works for you and do it every day. CULTIVATE RELATIONSHIPS Loneliness and isolation have a major negative impact on health. Seek out others who can love, care for and nurture you. Avoid hurtful relationships. MAINTAIN IDEAL BODY WEIGHT The best way to do this is to do all the things above. Our bodies naturally find the right weight if we keep moving and feed ourselves the right food. If your BMI is greater than 25, we strongly recommend a referral to a weight management program. Please speak to us or your family physician about available programs. AVOID NICOTINE IN ALL FORMS This includes all tobacco products, whether chewed, smoked, vaped, or rubbed on the skin. Smoking cessation programs, which can make use of tobacco substitutes, medications to suppress cravings and behavior management, are available. Please contact your family physician about programs in your area. Status:Closed by YONI TAPIA MD on 05/29/17 [facility] PROGRESSon 05-29-2017 PROGRESS HNO ID: [id number]: Yoni Dunaway: (none)Author Type: PhysicianType: Progress NotesFiled: 05/29/2017 5:53 PMNote Text:PERTINENT CARDIAC HISTORYASHD - PCI Cx, D1 2009Cardiomyopathy - ischemic EF 45%Carotid artery diseasePAFSSS - PPM 08/01GI bleed - angiodysplasia of stomach and duodenum, no a/cHTNHLTobaccoismAAA - repair, including iliacsADHERENCE TO GUIDELINESACE-I or ARB for HF with prior LVEF<40 (NQF 0081) - N/AASA or Plavix for ASHD (NQF 0067) - metBeta isha for ASHD with prior AR or prior LVEF<40 (NQF 0070) - N/ABeta isha for HF with prior LVEF<40 (NQF 0083) - N/AACE-I or ARB for ASHD with DM or prior LVEF<40 (NQF 0066) - metStatin therapy for ASHD or FHL or DM - metBMI documented and plan if >25 (NQF 0421) - lifestyle recommendation formTobacco use screening and referral (NQF 0028) - lifestyle recommendationformRecom mendation for whole food, plant based diet - lifestyle recommendationformCLINI EFRAIN IMPRESSION/PLAN:Thanh Coleman has multiple vascular and cardiac issues, all of whichappear stable. He will undergo echocardiogram for reassessment of LVfunction and valvular heart disease. Abdominal aortic aneurysm will beassessed with ultrasound. Carotid Doppler will be done in the future. Hisexam today does not suggest severe disease.We will consider discontinuing digoxin. The indication for this is notclear to me.I advised him to continue his other medication. Blood pressure iswell-controlled. He will continue his active lifestyle. There is noevidence of active ischemia.Pacemaker therapy is well tolerated and effective.He's been encouraged to discontinue smoking.I've advised him to contact primary care regarding workup of hisperipheral neuropathy.I will see him in 6 months or as needed. If there is increased chest painor shortness of breath, he is advised to contact me.Written and verbal health teaching given to patient, patient verbalizesunderstanding and agrees with treatment plan.This note was generated using Encision voice recognition system, and theremay be some incorrect words, spellings, and punctuation that were notnoted in checking the note before saving.DIAGNOSIS FOR VISIT:ASHDHypertensionH ISTORY OF PRESENT ILLNESSThanh Coleman is a 81-year-old gentleman who is seen in follow-up formultiple cardiac issues, as noted above. He was previously a patient ofDr. Patel.He reports that he has been very active. He is shoveling snow. He denieschest discomfort. Exercise tolerance has been stable. He's had noorthopnea. He denies edema, syncope, palpitations, TIAs, amaurosis andclaudication.He has developed some numbness in his toes. He has not discussed this withprimary care . He is not known to be diabetic.He reportedly had pacemaker evaluation done earlier this week at [place].ALLERGIES:ALLERG IESAllergen Reactions- Dust Other: See Comments- Grass Pollen Other: See Comments- Mold Spores Other: See CommentsCURRENT OUTPATIENT MEDICATIONS:amiodarone (PACERONE) 100 mg tablet Take 1 tablet by mouth once daily.lisinopril (ZESTRIL, PRINIVIL) 20 mg tablet TAKE ONE TABLET BY MOUTH ONCEDAILYKLOR-CON M10 10 mEq tablet TAKE ONE TABLET BY MOUTH ONCE DAILYfluticasone (FLONASE) 50 mcg/actuation nasal spray Use 1 [place] in eachnostril daily at bedtime.atorvastatin (LIPITOR) 40 mg tablet Take 1 tablet by mouth once daily.Fenofibrate (LOFIBRA) 54 mg tablet Take 1 tablet by mouth once daily.metoprolol tartrate, short acting, (LOPRESSOR) 25 mg tablet Take 1 tabletby mouth twice daily.albuterol HFA (PROAIR HFA) 90 mcg/actuation inhaler Inhale 2 Puffs asinstructed.nitroglyce rin sublingual (NITROQUICK) 0.4 mg SL tablet Dissolve 0.4 mgunder the tongue every 5 minutes as needed.aspirin, enteric coated (ASPIRIN, ENTERIC COATED) 81 mg EC tablet Take 81mg by mouth once daily.senna (SENOKOT) 8.6 mg tab Take 8.6 mg by mouth once daily as needed.Magnesium 250 mg tab Take 250 mg by mouth once daily.digoxin (LANOXIN) 125 mcg tablet Take 0.125 mg by mouth once dailyPOTASSIUM CHLORIDE (KLOR-CON 10 ORAL) Take by mouth.PAST MEDICAL HISTORYDiagnosis Date- Abnormal cholesterol test- Aortic aneurysm ([facility]) s/p repair AAA- CAD (coronary artery disease) pacemaker, hyperlipidemia, hyperlipidemia- CKD (chronic kidney disease) stage 3, GFR 30-59 ml/min 12/2015- COPD (chronic obstructive pulmonary disease) ([facility])- H/O right heart catheterization- High blood pressure- History of heart attack- Hypertriglyceridemia- Low HDL (under 40)- Neuropathy ([facility])- TB (pulmonary tuberculosis)- Thrombocytopenia ([facility])PAST SURGICAL HISTORYProcedure Laterality Date- ABD AORTIC ANEURYSM REPAIR- CORONARY STENT EA VESSEL 3-2008 x 2, drug eluting- ILIAC SLEEPING BAG FILLER W/WO STENT- PACEMAKER DUAL CHAMBER TIER 0 -2012- PAST SURGICAL HISTORY OF resection lobe of lung,,AAAFAMILY HISTORYProblem Relation Age of Onset- TB [Other] [OTHER] Mother- Stroke Father- Cancer Brother- Kidney Disease SisterSocial History Marital status: Spouse name: Years of education: Number of children:Social History Main Topics Smoking status: Current Every Day Smoker Packs/day: 0.00 Years: 0.00 Smokeless status: Never Used Comment: PK EVERY 3 DAYS Alcohol use: No Drug use: NoREVIEW OF SYSTEMS: General: No chills, fever, weight loss, night sweats. Respiratory: No productive cough. Cardiac: As noted above. GI: Nomelena. : No dysuria. Musculoskeletal: No myalgias.PHYSICAL EXAMINATION: S/he is alert and in no distress.VITAL SIGNS: BP 107/68 Pulse 78 Wt 204 lb 8 oz (92.8kg)SHEENT: Skin is warm and dry. No xanthelasmas appreciated. Pharynx isbenign. There is no oral cyanosis. Neck: supple. No adenopathy orthyroid enlargement. Chest: Clear to percussion and auscultation.Trachea is midline. Air entry is equal. There is no chest walltenderness. Cardiac: Regular rhythm. S1 and S2 are normal. PMI isnondisplaced. There is a 2/6 systolic ejection murmur. Carotids arebrisk with soft bilateral early systolic bruits. JVP is less than 10 cm.Abdomen: Soft and nontender. Obesity limits the examination. There are nopulsatile masses or bruits. No liver enlargement. Bowel sounds areactive. Extremities: Trace edema. Pulses are diminished butsymmetrical. No clubbing or cyanosis. No femoral bruits. Neurologic:There is decreased sensation to light touch in the feet. Exam is otherwisegrossly normal S/he is alert and oriented x4.Labs were reviewed. Renal function is moderately impaired. CBC is normal.TSH is normal. LDL was 87.Most recent device check is not available. Prior report describes noepisodes of atrial high rate. He has minimal right ventricular pacing.EKG today shows atrial pacing with normal conduction. There is no evidenceof ischemia.Electronically Signed:Yoni Tapia MDFebruary 2017 2:03 [facility]:Boo Marina, DO [facility] OBSOLETEon 05-14-2017 OBSOLETE Refill (AGCARDWST) S THANH LOPEZ ([id number]) 1935 MDate Time Provider Department05/14/17 YONI TAPIAWST During your visit today, we recorded the following information about you:Hudson Hagen LPN 05/14/2017 3:50 PM SignedPatient will be seeing you early May and needs a refill of amiodarone. is wanting to know if they make a 100mg tablet? I could not find this inEpic. Please advise and send RX.Jered Dorsey MD 05/14/2017 3:54 PM SignedThe following approved medication requests have been transmitted electronically.Signed Prescriptions Disp Refills amiodarone (PACERONE) 100 mg tablet 30 tablet 11 Sig: Take 1 tablet by mouth once daily. MEENA: No Authorizing Provider: YONI TAPIA MDAllergies As of Date: 05/14/2017(No Known Allergies)Date Reviewed: 01/01/2017Reviewed by: Graciela Manzano LPN - Fully AssessedReason for Visit: Refill Request [94]Order(s):amiodarone (PACERONE) 100 mg tabletTake 1 tablet by mouth once daily.Disp: 30 tabletRfl: 11Prescriptions as of 05/14/2017 Sig: AMIODARONE 100 MG TABLET Take 1 tablet by mouth once d* LISINOPRIL 20 MG TABLET TAKE ONE TABLET BY MOUTH ONCE* KLOR-CON M10 MEQ TABLET,EXTEN* TAKE ONE TABLET BY MOUTH ONCE* DIGOXIN 125 MCG TABLET Take 0.125 mg by mouth once d* FLUTICASONE 50 MCG/ACTUATION * Use 1 [place] in each nostril d* ATORVASTATIN 40 MG TABLET Take 1 tablet by mouth once d* FENOFIBRATE 54 MG TABLET Take 1 tablet by mouth once d* METOPROLOL TARTRATE 25 MG TAB* Take 1 tablet by mouth twice * ALBUTEROL SULFATE HFA 90 MCG/* Inhale 2 Puffs as instructed. NITROGLYCERIN 0.4 MG SUBLINGU* Dissolve 0.4 mg under the ton* ASPIRIN 81 MG TABLET,DELAYED * Take 81 mg by mouth once hammad* SENNOSIDES 8.6 MG TABLET Take 8.6 mg by mouth once niko* KLOR-CON 10 ORAL Take by mouth. MAGNESIUM 250 MG TABLET Take 250 mg by mouth once niko*Problem List As Of Date 05/14/2017 Noted Resolved Chronic rhinitis [J31.0] INVALID FOR* Cerumen impaction [H61.20] INVALID FOR* Chronic otitis externa [H60.60] INVALID FOR* Presence of drug coated stent in left circumfle*INVALID FOR* Asymptomatic LV dysfunction [I51.9] INVALID FOR* History of AR (myocardial infarction) [I25.2] INVALID FOR* 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] INVALID FOR* S/P insertion of iliac artery stent [Z95.828] INVALID FOR* Pacemaker [Z95.0] INVALID FOR* Sick sinus syndrome (HCC) [I49.5] INVALID FOR* Atrial fibrillation, persistent (HCC) [I48.1] INVALID FOR* Gastrointestinal hemorrhage associated with ang*INVALID FOR* Dyslipidemia [E78.5] INVALID FOR* Tobacco abuse [Z72.0] INVALID FOR* Encounter for monitoring anti-arrhythmic therap*INVALID FOR* 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] INVALID FOR* Chronic obstructive pulmonary disease (HCC) [J4*INVALID FOR* CKD (chronic kidney disease) [N18.9] INVALID FOR* Allergic rhinitis [J30.9] INVALID FOR* Essential hypertension [I10] INVALID FOR* CKD (chronic kidney disease) stage 3, GFR 30-59*INVALID FOR* CAD (coronary artery disease) [I25.10] More... Aortic aneurysm (HCC) [I71.9] More... 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]INVALID FOR* History of abdominal aortic aneurysm repair [Z9*INVALID FOR*Prescriptions ordered this encounter Disp Refills Start End AMIODARONE 100 MG TABLET 30 t* 11 05/14/2017 Route: ORAL Sig: Take 1 tablet by mouth once daily.Medications Discontinued During This Encounter amiodarone (PACERONE) 200 mg tablet 0 01/29/2016 05/14/2017 Class: Med Update Route: ORAL Sig: Take 0.5 tablets by mouth once daily. Disc: Reason for discontinue is not on file. Status:Closed by HUDSON HAGEN LPN on 05/14/17 [facility] Sinus/Facial Boneon 04-29-19 Sinus/Facial Bone [facility] [id number] [place], [place] [address]Fwgsh/Facial BoneMR#: [id number] Acct: [id number]: THANH COLEMAN Rep #: [id number]: 1935 M 81 From: Cedric Lee MDPCP: Boo Marina DO Status: REG CLIStudy: Sinus/Facial Bone Date of Exam: 04/29/17Exam# [id number] Ordering Dr: Turner Syed MDSTUDY: CT MAXILLOFACIAL SINUSESREASON FOR EXAM: Male, 81 years old. Sinusitis. Palpable abnormalityalong the posterior aspect of the left side of the neck.RADIATION DOSAGE (If Supplied By Facility): CTDIvol = ( 33.06 ) mGy, DLP =( 862.77 ) mGycmTECHNIQUE: The patient was scanned in a multi detector CT scanner. Highresolution axial imaging was performed without the administration ofintravenous contrast material. Sagittal and coronal images werereconstructed.Indiv idualized dose optimization techniques were used for this CT.COMPARISON: None. FINDIN GS:FRONTAL SINUSES: Partial opacification of the left frontal sinus.ETHMOIDAL SINUSES: Partial opacification of the ethmoid sinusesbilaterally.MAXI LLARY SINUSES: Partial opacification of the left maxillary sinus.Focal mucosal thickening along the medial wall of the right maxillarysinus.SPHENOID AL SINUSES: Normal aeration, without mucosal inflammatory disease.There is obliteration of the left ostiomeatal complex as well as the rightostiomeatal complex due to mucosal hypertrophy.Normal bilateral middle turbinates. Normal bilateral inferior turbinates.There is a left sided nasal septal deviation, but without a nasal septalspur. There is patency of the bilateral nasal airways.The visualized osseous structures are normal. The visualized bilateralorbital contents are normal. ORDE R #: [id number] CT/Sinus/Facial BoneIMPRESSION:Sinusiti s as described above.Electronically Signed:Cedric Lee MD at 14:28 ESTTel [phone], Service support , XY: Randell Syed MD; Boo Marina DO Nonprofit Fundraiser:Signed Normal [facility] No Panel Information [facility] Vital Signs Date Time Vital Sign Value Performing Clinician Facility 11-13-2023 16:00-0400 Diastolic blood pressure 52 mm[Hg] Elijah Turner [facility] 11-13-2023 16:00-0400 Mean blood pressure 94 mm[Hg] Elijah Turner [facility] 11-13-2023 16:00-0400 Systolic blood pressure 178 mm[Hg] Elijah Turner [facility] 11-13-2023 15:48-0400 Blood Pressure Location Elijah Turner [facility] 11-13-2023 15:48-0400 Diastolic blood pressure 80 mm[Hg] Elijah Turner [facility] 11-13-2023 15:48-0400 Heart rate 76 /min Elijah Turner [facility] 11-13-2023 15:48-0400 Respiratory rate 18 /min Elijah Turner [facility] 11-13-2023 15:48-0400 SaO2% (BldA) [Mass fraction] 94 % Elijah Turner [facility] 11-13-2023 15:48-0400 Systolic blood pressure 169 mm[Hg] Elijah Turner [facility] 09-11-2023 15:10-0400 Blood Pressure Location Nanci Gudimella [facility] 09-11-2023 15:10-0400 Body temperature 98.78 [degF] Nanci Gudimella [facility] 09-11-2023 15:10-0400 Diastolic blood pressure 82 mm[Hg] Nanci Gudimella [facility] 09-11-2023 15:10-0400 Heart rate 63 /min Nanci Gudimella [facility] 09-11-2023 15:10-0400 Respiratory rate 15 /min Nanci Gudimella [facility] 09-11-2023 15:10-0400 SaO2% (BldA) [Mass fraction] 92 % Nanci Gudimella [facility] 09-11-2023 15:10-0400 Systolic blood pressure 138 mm[Hg] Nanci Gudimella [facility] 07-07-2023 15:43-0400 Diastolic blood pressure 78 mm[Hg] Johnny VILLEDA [facility] 07-07-2023 15:43-0400 Heart rate 86 /min Johnny VILLEDA [facility] 07-07-2023 15:43-0400 SaO2% (BldA) [Mass fraction] 97 % Johnny VILLEDA [facility] 07-07-2023 15:43-0400 Systolic blood pressure 122 mm[Hg] Johnny VILLEDA [facility] 04-10-2023 13:40-0500 Blood Pressure Location Johnny VILLEDA [facility] 04-10-2023 13:40-0500 Diastolic blood pressure 50 mm[Hg] Johnny VILLEDA [facility] 04-10-2023 13:40-0500 Heart rate 100 /min Johnny VILLEDA [facility] 04-10-2023 13:40-0500 SaO2% (BldA) [Mass fraction] 100 % Johnny VILLEDA [facility] 04-10-2023 13:40-0500 Systolic blood pressure 89 mm[Hg] Johnny VILLEDA [facility] 03-14-2023 09:33-0500 Blood Pressure Location Nanci Gudimella [facility] 03-14-2023 09:33-0500 Diastolic blood pressure 60 mm[Hg] Nanci Gudimella [facility] 03-14-2023 09:33-0500 Heart rate 97 /min Nanci Gudimella [facility] 03-14-2023 09:33-0500 SaO2% (BldA) [Mass fraction] 98 % Nanci Gudimella [facility] 03-14-2023 09:33-0500 Systolic blood pressure 160 mm[Hg] Nanci Gudimella [facility] 03-11-2023 12:52-0500 Blood Pressure Location Pat Castro [facility] 03-11-2023 12:52-0500 Body temperature 97.88 [degF] Pat Castro [facility] 03-11-2023 12:52-0500 Diastolic blood pressure 51 mm[Hg] Pat Castro [facility] 03-11-2023 12:52-0500 Heart rate 69 /min Pat Castro [facility] 03-11-2023 12:52-0500 Systolic blood pressure 117 mm[Hg] Pat Castro [facility] 02-11-2023 15:39-0400 Diastolic blood pressure 76 mm[Hg] Johnny VILLEDA [facility] 02-11-2023 15:39-0400 Heart rate 105 /min Johnny VILLEDA [facility] 02-11-2023 15:39-0400 SaO2% (BldA) [Mass fraction] 98 % Johnny VILLEDA [facility] 02-11-2023 15:39-0400 Systolic blood pressure 126 mm[Hg] Johnny VILLEDA [facility] 01-03-2023 13:18-0400 Diastolic blood pressure 64 mm[Hg] Johnny VILLEDA [facility] 01-03-2023 13:18-0400 Heart rate 88 /min Johnny VILLEDA [facility] 01-03-2023 13:18-0400 SaO2% (BldA) [Mass fraction] 97 % Johnny VILLEDA [facility] 01-03-2023 13:18-0400 Systolic blood pressure 126 mm[Hg] Johnny VILLEDA [facility] 12-24-2022 13:56-0400 Blood Pressure Location Nanci Gudimella [facility] 12-24-2022 13:56-0400 Diastolic blood pressure 84 mm[Hg] Nanci Gudimella [facility] 12-24-2022 13:56-0400 Heart rate 68 /min Nanci Gudimella [facility] 12-24-2022 13:56-0400 SaO2% (BldA) [Mass fraction] 97 % Nanci Gudimella [facility] 12-24-2022 13:56-0400 Systolic blood pressure 120 mm[Hg] Nanci Gudimella [facility] 12-16-2022 10:25-0400 Body height 180.3 cm Luke Sun DO Work Phone: [facility] 12-16-2022 10:25-0400 Body weight 86.73 kg Luke Sun DO Work Phone: [facility] 12-16-2022 10:25-0400 Diastolic blood pressure 78 mm[Hg] Luke uSn DO Work Phone: [facility] 12-16-2022 10:25-0400 Heart rate 91 /min Luke Sun DO Work Phone: [facility] 12-16-2022 10:25-0400 Respiratory rate 18 /min Luke Sun DO Work Phone: [facility] 12-16-2022 10:25-0400 SaO2% (BldA) [Mass fraction] 99 % Luke Sun DO Work Phone: [facility] 12-16-2022 10:25-0400 Systolic blood pressure 120 mm[Hg] Luke Corinne DO Work Phone: [facility] 12-12-2022 13:20-0400 Body weight 87.82 kg Zoraida Christiano SPA EXPERIENCE COORDINATOR.HEALTH INFORMATION SPECIALIST Work Phone: [facility] 12-12-2022 13:20-0400 Diastolic blood pressure 80 mm[Hg] Zoraida Christiano SPA EXPERIENCE COORDINATOR.HEALTH INFORMATION SPECIALIST Work Phone: [facility] 12-12-2022 13:20-0400 Heart rate 90 /min Zoraida Christiano SPA EXPERIENCE COORDINATOR.HEALTH INFORMATION SPECIALIST Work Phone: [facility] 12-12-2022 13:20-0400 Respiratory rate 20 /min Zoraida Christiano SPA EXPERIENCE COORDINATOR.HEALTH INFORMATION SPECIALIST Work Phone: [facility] 12-12-2022 13:20-0400 SaO2% (BldA) [Mass fraction] 97 % Zoraida Christiano SPA EXPERIENCE COORDINATOR.HEALTH INFORMATION SPECIALIST Work Phone: [facility] 12-12-2022 13:20-0400 Systolic blood pressure 128 mm[Hg] Zoraida Christiano SPA EXPERIENCE COORDINATOR.HEALTH INFORMATION SPECIALIST Work Phone: [facility] 07-08-2022 13:27-0400 Body weight 94.17 kg Ekta Mandujnao SPA EXPERIENCE COORDINATOR.HEALTH INFORMATION SPECIALIST Work Phone: [facility] 07-08-2022 13:27-0400 Diastolic blood pressure 68 mm[Hg] Ekta Mandujano SPA EXPERIENCE COORDINATOR.HEALTH INFORMATION SPECIALIST Work Phone: [facility] 07-08-2022 13:27-0400 Heart rate 80 /min Ekta Mandujano SPA EXPERIENCE COORDINATOR.HEALTH INFORMATION SPECIALIST Work Phone: [facility] 07-08-2022 13:27-0400 Respiratory rate 14 /min Ekta Mandujano SPA EXPERIENCE COORDINATOR.HEALTH INFORMATION SPECIALIST Work Phone: [facility] 07-08-2022 13:27-0400 Systolic blood pressure 120 mm[Hg] Ekta Mandujano SPA EXPERIENCE COORDINATOR.HEALTH INFORMATION SPECIALIST Work Phone: [facility] 04-24-2022 09:03-0500 Body temperature 97.88 [degF] KAREEM SHEN MD [facility] 04-24-2022 09:03-0500 Diastolic Blood Pressure Non-Invasive 66 1 KAREEM SHEN MD [address] [place] [address] 04-24-2022 09:03-0500 Heart rate 66 /min KAREEM SHEN MD [address] [place] [address] 04-24-2022 09:03-0500 Respiratory rate 18 /min KAREEM SHEN MD [address] [place] [address] 04-24-2022 09:03-0500 Systolic Blood Pressure Non-Invasive 120 1 KAREEM SHEN MD [address] [place] [address] 04-24-2022 03:30-0500 Body temperature 98.06 [degF] KAREEM SHEN MD [address] [place] [address] 04-24-2022 03:30-0500 Diastolic Blood Pressure Non-Invasive 61 1 KAREEM SHEN MD [address] [place] [address] 04-24-2022 03:30-0500 Heart rate 65 /min KAREEM SHEN MD [address] [place] [address] 04-24-2022 03:30-0500 Reason For Taking VItal Signs KAREEM SHEN MD [address] [place] [address] 04-24-2022 03:30-0500 Respiratory rate 16 /min KAREEM SHEN MD [address] [place] [address] 04-24-2022 03:30-0500 Systolic Blood Pressure Non-Invasive 110 1 KAREEM SHEN MD [address] [place] [address] 04-24-2022 02:35-0500 Heart rate 64 /min KAREEM SHEN MD [address] [place] [address] 04-24-2022 02:35-0500 Respiratory rate 16 /min KAREEM SHEN MD [address] [place] [address] 04-23-2022 23:05-0500 Heart rate 60 /min KAREEM SHEN MD [address] [place] [address] 04-23-2022 21:31-0500 Heart rate 86 /min KAREEM SHEN MD [address] [place] [address] 01-03-2023 21:26-0500 Diastolic Blood Pressure Non-Invasive 70 1 KAREEM SHEN MD [address] [place] [address] 04-23-2022 21:26-0500 Heart rate 83 /min KAREEM SHEN MD [address] [place] [address] 04-23-2022 21:26-0500 Systolic Blood Pressure Non-Invasive 124 1 KAREEM SHEN MD [address] [place] [address] 04-23-2022 19:30-0500 Body temperature 97.52 [degF] KAREEM SHEN MD [address] [place] [address] 04-23-2022 19:30-0500 Reason For Taking VItal Signs KAREEM SHEN MD [address] [place] [address] 04-23-2022 14:15-0500 Body temperature 97.34 [degF] KAREEM SHEN MD [address] [place] [address] 04-23-2022 14:05-0500 Respiratory Rate - Anes 0 br/min KAREEM SHEN MD [address] [place] [address] 04-23-2022 14:00-0500 Respiratory Rate - Anes 11 br/min KAREEM SHEN MD [address] [place] [address] 04-23-2022 13:55-0500 Respiratory Rate - Anes 31 br/min KAREEM SHEN MD [address] [place] [address] 04-23-2022 13:40-0500 Body temperature 96.24 [degF] KAREEM SHEN MD [address] [place] [address] 04-23-2022 13:35-0500 Body temperature 96.69 [degF] KAREEM SHEN MD [address] [place] [address] 04-23-2022 13:30-0500 Body temperature 96.53 [degF] KAREEM SHEN MD [address] [place] [address] 04-23-2022 09:28-0500 Blood Pressure Cuff Size KAREEM SHEN MD [address] [place] [address] 04-23-2022 09:28-0500 Blood Pressure Location KAREEM SHEN MD [facility] 04-23-2022 09:28-0500 Blood Pressure Method KAREEM SHEN MD [address] 04-23-2022 09:28-0500 Body height 180 cm KAREEM SHEN MD [address] [place] [address] 04-23-2022 09:28-0500 Body temperature 97.88 [degF] KAREEM SHEN MD [address] [place] [address] 04-23-2022 09:28-0500 Body weight 97.3 kg KAREEM SHEN MD [address] [place] [address] 04-23-2022 09:28-0500 Body weight 30.03 kg/m2 KAREEM SHEN MD [address] 04-23-2022 09:28-0500 Heart rate 93 /min KAREEM SHEN MD [facility] 01-07-2022 15:04-0400 Body temperature 96.8 [degF] Boo Marina DO Work Phone: [facility] 01-07-2022 15:04-0400 Body weight 96.16 kg Boo Marina DO Work Phone: [facility] 01-07-2022 15:04-0400 Diastolic blood pressure 60 mm[Hg] Boo Marina DO Work Phone: [facility] 01-07-2022 15:04-0400 Heart rate 64 /min Boo Marina DO Work Phone: [facility] 01-07-2022 15:04-0400 Respiratory rate 24 /min Boo Marina DO Work Phone: [facility] 01-07-2022 15:04-0400 Systolic blood pressure 100 mm[Hg] Boo Marina DO Work Phone: [facility] 12-05-2021 10:03-0400 Heart rate 62 /min KAREEM SHEN MD [facility] 12-05-2021 09:45-0400 Heart rate 62 /min KAREEM SHEN MD [address] [place] [address] 12-05-2021 09:45-0400 Reason For Taking VItal Signs KAREEM SHEN MD [address] [place] [address] 12-05-2021 04:30-0400 Body temperature 96.8 [degF] KAREEM SHEN MD [address] [place] [address] 12-05-2021 04:30-0400 Diastolic Blood Pressure NBP 66 1 KAREEM SHEN MD [address] [place] [address] 12-05-2021 04:30-0400 Heart rate 61 /min KAREEM SHEN MD [address] [place] [address] 12-05-2021 04:30-0400 Reason For Taking VItal Signs KAREEM SHEN MD [address] [place] [address] 12-05-2021 04:30-0400 Respiratory rate 18 /min KAREEM SHEN MD [address] [place] [address] 12-05-2021 04:30-0400 Systolic Blood Pressure NBP 144 1 KAREEM SHEN MD [address] [place] [address] 12-05-2021 03:40-0400 Heart rate 60 /min KAREEM SHEN MD [address] [place] [address] 12-05-2021 03:40-0400 Reason For Taking VItal Signs KAREEM SHEN MD [address] [place] [address] 12-04-2021 19:37-0400 Body temperature 97.52 [degF] KAREEM SHEN MD [address] [place] [address] 12-04-2021 19:37-0400 Diastolic Blood Pressure NBP 64 1 KAREEM SHEN MD [address] [place] [address] 12-04-2021 19:37-0400 Respiratory rate 18 /min KAREEM SHEN MD [address] [place] [address] 12-04-2021 19:37-0400 Systolic Blood Pressure NBP 113 1 KAREEM SHEN MD [address] [place] [address] 12-04-2021 17:50-0400 Heart rate 60 /min KAREEM SHEN MD [address] [place] [address] 12-04-2021 17:13-0400 Heart rate 62 /min KAREEM SHEN MD [address] [place] [address] 12-04-2021 17:11-0400 Diastolic blood pressure 72 mm[Hg] KAREEM SHEN MD [address] [place] [address] 12-04-2021 17:11-0400 Mean blood pressure 94 mm[Hg] KAREEM SHEN MD [address] [place] [address] 12-04-2021 17:11-0400 Systolic blood pressure 137 mm[Hg] KAREEM SHEN MD [address] [place] [address] 12-04-2021 12:45-0400 diastolic 66 mm[Hg] KAREEM SHEN MD [address] [place] [address] 12-04-2021 12:45-0400 systolic 131 mm[Hg] KAREEM SHEN MD [address] [place] [address] 12-04-2021 12:26-0400 diastolic 66 mm[Hg] KAREEM SHEN MD [address] [place] [address] 12-04-2021 12:26-0400 Respiratory rate 16 /min KAREEM SHEN MD [address] [place] [address] 12-04-2021 12:26-0400 systolic 129 mm[Hg] KAREEM SHEN MD [address] [place] [address] 12-04-2021 12:15-0400 diastolic 72 mm[Hg] KAREEM SHEN MD [address] [place] [address] 12-04-2021 12:15-0400 systolic 130 mm[Hg] KAREEM SHEN MD [address] [place] [address] 12-04-2021 07:42-0400 Body height 182.9 cm KAREEM SHEN MD [address] [place] [address] 12-04-2021 07:42-0400 Body temperature 98.06 [degF] KAREEM SHEN MD [facility] 12-04-2021 07:42-0400 Body weight 95.1 kg KAREEM SHEN MD [facility] 09-28-2021 14:06-0400 Body weight 96.16 kg Zoraida Christiano SPA EXPERIENCE COORDINATOR.HEALTH INFORMATION SPECIALIST Work Phone: [facility] 09-28-2021 14:06-0400 Diastolic blood pressure 68 mm[Hg] Zoraida Christiano SPA EXPERIENCE COORDINATOR.HEALTH INFORMATION SPECIALIST Work Phone: [facility] 09-28-2021 14:06-0400 Heart rate 79 /min Zoraida Christiano SPA EXPERIENCE COORDINATOR.HEALTH INFORMATION SPECIALIST Work Phone: [facility] 09-28-2021 14:06-0400 Respiratory rate 16 /min Zoraida Christiano SPA EXPERIENCE COORDINATOR.HEALTH INFORMATION SPECIALIST Work Phone: [facility] 09-28-2021 14:06-0400 SaO2% (BldA) [Mass fraction] 95 % Zoraida Christiano SPA EXPERIENCE COORDINATOR.HEALTH INFORMATION SPECIALIST Work Phone: [facility] 09-28-2021 14:06-0400 Systolic blood pressure 102 mm[Hg] Zoraida Christiano SPA EXPERIENCE COORDINATOR.HEALTH INFORMATION SPECIALIST Work Phone: [facility] Encounters Encounter Date Encounter Type Care Provider Facility Start: 01-06-2024 End: 01-06-2024 ambulatory ANTONINA ARENAS Not Available Start: 11-17-2023 End: 11-17-2023 ambulatory NATALIE TURK Not Available Start: 11-13-2023 End: 11-13-2023 ambulatory XXXX NONE Facility:[facility] Start: 11-13-2023 End: 11-13-2023 Patient encounter procedure Elijah Turner [facility] Start: 10-30-2023 End: 10-30-2023 ambulatory Johnny VILLEDA Facility:[facility] Start: 10-30-2023 End: 10-30-2023 Patient encounter procedure Lavell Winters [facility] Start: 09-11-2023 End: 09-11-2023 ambulatory Nanci Gudimella Facility:[facility] Start: 09-11-2023 End: 09-11-2023 Patient encounter procedure Nanci Gudimella [facility] Start: 09-10-2023 End: 09-10-2023 ambulatory ERIC WILLOUGHBY Not Available Start: 09-04-2023 End: 09-04-2023 ambulatory NATALIE TEALTHEA Not Available Start: 08-27-2023 End: 08-27-2023 ambulatory ERIC WILLOUGHBY Not Available Start: 08-13-2023 End: 08-13-2023 ambulatory ERIC Ballesteros BROWN Not Available Start: 07-22-2023 End: 07-22-2023 ambulatory ERIC WILLOUGHBY Not Available Start: 07-07-2023 End: 07-07-2023 ambulatory Johnny VILLEDA Facility:[facility] Start: 07-07-2023 End: 07-07-2023 Patient encounter procedure Johnny VILLEDA [facility] Start: 05-01-2023 End: 05-01-2023 ambulatory Johnny VILLEDA Facility:[facility] Start: 04-10-2023 End: 04-10-2023 ambulatory Johnny VILLEDA Facility:[facility] Start: 04-10-2023 End: 04-10-2023 Patient encounter procedure Johnny VILLEDA [facility] Start: 03-27-2023 End: 03-27-2023 ambulatory Johnny VILLEDA Facility:[facility] Start: 03-27-2023 End: 03-27-2023 Patient encounter procedure Johnny VILLEDA [facility] Start: 03-14-2023 End: 03-14-2023 ambulatory Nanci Gudimella Facility:[facility] Start: 03-14-2023 End: 03-14-2023 Patient encounter procedure Nanci Gudimella [facility] Start: 03-12-2023 ambulatory Johnny VILLEDA Facility: [facility] Start: 03-11-2023 End: 03-11-2023 ambulatory Pat Castro Facility:[facility] Start: 03-11-2023 End: 03-11-2023 Patient encounter procedure Pat Castro [facility] Start: 03-07-2023 End: 03-07-2023 ambulatory Johnny VILLEDA Facility:[facility] Start: 03-07-2023 End: 03-07-2023 Patient encounter procedure Johnny VILLEDA [facility] Start: 02-27-2023 ambulatory Pat Castro [facility] ty:[facility] Start: 02-26-2023 End: 02-26-2023 ambulatory Nanci Gudimella Facility:[facility] Start: 02-26-2023 End: 02-26-2023 Patient encounter procedure Nanci Gudimella [facility] Start: 02-17-2023 ambulatory Johnny VILLEDA Facility: [facility] Start: 02-15-2023 End: 02-21-2023 Evaluation and management of inpatient Mbanefo OJUKWU Facility:[facility] Start: 02-11-2023 End: 02-11-2023 ambulatory Johnny VILLEDA Facility:[facility] Start: 02-11-2023 End: 02-11-2023 Patient encounter procedure Johnny VILLEDA [facility] Start: 01-24-2023 End: 01-24-2023 ambulatory Johnny Villeda Facility:[facility] Start: 01-14-2023 Telephone encounter Boo armstrong DO Work Phone: [facility] Start: 01-04-2023 End: 01-04-2023 ambulatory Johnny VILLEDA Facility:[facility] Start: 01-03-2023 End: 01-03-2023 ambulatory Johnny VILLEDA Facility:[facility] Start: 01-03-2023 End: 01-03-2023 Patient encounter procedure Johnny J RONAL [facility] Start: 12-24-2022 End: 12-24-2022 ambulatory Nanci Gudimella Facility:[facility] Start: 12-24-2022 End: 12-24-2022 Patient encounter procedure Nanci [facility] Start: 12-18-2022 ambulatory Femi Olivera RN IN [facility] Start: 12-18-2022 Follow-up encounter Femi echevarria RN [facility] [employer] Comment on above: Transition Of Care ( TCM Follow-up day 8) Start: 12-16-2022 ambulatory Johnny VILLEDA Facility: [facility] Start: 12-16-2022 End: 12-16-2022 Evaluation and management of inpatient LUKE SUN Facility:[id number] Start: 12-16-2022 End: 12-16-2022 Office outpatient new 60 minutes Luke Sun DO Work Phone: [facility] Comment on above: 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) (Primary Dx); Pain and swelling of toe of right foot; Chronic combined systolic and diastolic congestive heart failure (HCC); Stage 3b chronic kidney disease (HCC) Start: 12-12-2022 End: 12-13-2022 ambulatory BOO MARINA Facility:[facility] Start: 12-12-2022 Telephone encounter Chery Marte Start: 12-12-2022 End: 12-12-2022 Patient encounter procedure Zoraida Hodge APRN.HEALTH INFORMATION SPECIALIST Work Phone: [facility] Comment on above: Memory changes (Prim noel Dx); Age-related physical debility; Ischemic stroke (HCC); Forgetfulness; DANIEL (generalized anxiety disorder); Mental disability; Hypertriglyceridemia Start: 12-11-2022 Patient Outreach Femi Ahmadi [employer] [facility] Comment on above: Transition Of Care ( [facility] Bibiana d/c 12/10/22) Start: 12-10-2022 End: 12-10-2022 Evaluation and management of inpatient TRACEE ESCALONA Facility:[id number] Start: 12-09-2022 Telephone encounter Boo L G arrison DO Work Phone: [facility] Comment on above: [facility] Main follow up Start: 12-06-2022 Evaluation and manag ement of inpatient COLBY MURRAY Facility:[id number] Start: 12-05-2022 End: 12-06-2022 Emergency department patient visit BOO PENA [facility] Start: 12-05-2022 Telephone encounter Boo L G arrison DO Work Phone: [facility] [place] Comment on above: Patient Update Start: 12-03-2022 Refill Boo David Bermanri son DO Work Phone: [facility] [place] Comment on above: Refill Request Start: 10-21-2022 Telephone encounter Zoraida Cohen APRN.HEALTH INFORMATION SPECIALIST Work Phone: [facility] [place] Comment on above: Results Start: 10-18-2022 End: 10-19-2022 ambulatory BOO L MARINA Facility:[facility] Start: 10-17-2022 Telephone encounter Boo L G arrison DO Work Phone: [facility] [place] Comment on above: Results Start: 10-09-2022 Refill Boo David Garri son DO Work Phone: [facility] [place] Comment on above: Refill Request Start: 10-08-2022 End: 10-09-2022 ambulatory BOO L MARINA Facility:[facility] Start: 10-08-2022 End: 10-08-2022 ambulatory BOO L MARINA Facility:[facility] Start: 10-08-2022 Telephone encounter [facility] Provider Tiffany salamancaar Heather Comment on above: Appointment (/) Start: 09-20-2022 Telephone encounter Boo armstrong DO Work Phone: [facility] [place] Comment on above: Patient Update Start: 09-02-2022 Telephone encounter Boo armstrong DO Work Phone: [facility] [place] Comment on above: Fax Last OV note Start: 08-30-2022 Telephone encounter Boo armstrong DO Work Phone: [facility] [place] Comment on above: Request Start: 08-30-2022 End: 09-04-2022 ambulatory BOO MARINA DO Facility:A Start: 08-29-2022 End: 08-29-2022 Emergency department patient visit SATNAM MADRID [facility] Start: 08-24-2022 End: 08-24-2022 Emergency department patient visit BOO GENAO [facility] Start: 08-08-2022 End: 08-09-2022 ambulatory CLEM PILLAI [facility] Start: 08-06-2022 End: 08-06-2022 ambulatory JUAN CARLOS CUADRA Facility:[facility] Start: 07-23-2022 Telephone encounter Zoraida Cohen APRN.HEALTH INFORMATION SPECIALIST Work Phone: [facility] [place] Comment on above: Results Start: 07-22-2022 End: 07-23-2022 ambulatory EKTA MANDUJANO Facility:[facility] Start: 07-08-2022 End: 07-09-2022 ambulatory EKTA MANDUJANO Facility:[facility] Start: 07-08-2022 End: 07-08-2022 Patient encounter procedure Ektacesilia Bradenson SPA EXPERIENCE COORDINATOR.HEALTH INFORMATION SPECIALIST Work Phone: [facility] [place] Comment on above: Essential hypertensi on (Primary Dx); COPD (chronic obstructive pulmonary disease) with chronic bronchitis (HCC); Hypertriglyceridemia; Vitamin D deficiency; Dyslipidemia; Atrial fibrillation, persistent (HCC); Screening for prostate cancer; DANIEL (generalized anxiety disorder) Start: 07-03-2022 Telephone encounter Boo armstrong DO Work Phone: [facility] [place] Comment on above: Patient Update Start: 05-22-2022 Refill Boo watkins DO Work Phone: [facility] [place] Comment on above: Refill Request Start: 04-24-2022 Refill Boo watkins DO Work Phone: [facility] [place] Comment on above: Refill Request Start: 04-23-2022 End: 04-24-2022 ambulatory KAREEM SHEN MD Facility:A Start: 04-23-2022 End: 04-24-2022 Observation KAREEM SHEN MD [facility] Start: 04-12-2022 Telephone encounter Job bridges PA-C Work Phone: Ophthalmology Comment on above: Patient Update Start: 04-10-2022 End: 04-10-2022 ambulatory BOO L MARINA Facility:[facility] Start: 04-10-2022 End: 04-10-2022 Patient encounter procedure Camryn Davila MD Work Phone: Ophthalmology Comment on above: Post-operative state (Primary Dx); Wound dehiscence Start: 04-08-2022 End: 04-08-2022 ambulatory BOO L MARINA Facility:[facility] Start: 03-25-2022 End: 03-25-2022 ambulatory BOO L MARINA Facility:[facility] Start: 03-13-2022 Telephone encounter Boo armstrong DO Work Phone: [facility] [place] Comment on above: Plan of Care Start: 03-06-2022 End: 03-06-2022 ambulatory CAMRYN DAVILA Facility:[facility] Start: 03-01-2022 Refill Ekta meneses SPA EXPERIENCE COORDINATOR.HEALTH INFORMATION SPECIALIST Work Phone: [facility] [place] Comment on above: Refill Request Start: 03-01-2022 Telephone encounter Jacky Cortes mmad SPA EXPERIENCE COORDINATOR.HEALTH INFORMATION SPECIALIST Work Phone: Ophthalmology Comment on above: Returning Patient's Call Refill Request Start: 02-28-2022 Telephone encounter Akilah pérez PA-C Work Phone: Ophthalmology Comment on above: Post Op Call Follow Up Start: 02-27-2022 Telephone encounter Jayjay smith MD Work Phone: Cardiology Comment on above: Patient Update Medication Problem Start: 02-27-2022 End: 02-27-2022 ambulatory CAMRYN DAVILA Facility:[facility] Start: 02-26-2022 End: 02-26-2022 Emergency department patient visit CASS PILLAI [facility] Start: 02-26-2022 End: 02-26-2022 ambulatory ANA MARIA JOLLY Facility:[facility] Start: 02-25-2022 End: 02-25-2022 ambulatory Camryn Davila MD Work Phone: Ophthalmology Comment on above: Basal cell carcinoma (BCC) of skin of left lower eyelid including canthus (Primary Dx) Start: 02-25-2022 End: 02-25-2022 Telemedicine consultation with patient Camryn Davial MD Work Phone: [facility] Start: 02-19-2022 Orders Only Jacky Sanchez SPA EXPERIENCE COORDINATOR.HEALTH INFORMATION SPECIALIST Work Phone: [place] [facility] Comment on above: Basal cell carcinoma (BCC) of skin of left lower eyelid including canthus (Primary Dx) Start: 02-13-2022 Telephone encounter Camryn Davila MD Work Phone: Ophthalmology Comment on above: Question Start: 02-01-2022 Telephone encounter Young paz MD Work Phone: Dermatology Comment on above: Results Start: 01-29-2022 End: 01-29-2022 Patient encounter procedure Juan Carlos Cuadra OD Work Phone: Ophthalmology Comment on above: 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 (Primary Dx); Corneal guttata of both eyes; Eyelid lesion; Squamous blepharitis of upper and lower eyelids of both eyes; Pseudophakia of both eyes; Right epiretinal membrane; Vitreous degeneration and detachment of both eyes Neoplasm of unspecif ied behavior of bone, soft tissue, and skin (Primary Dx) Start: 01-09-2022 Telephone encounter Boo armstrong DO Work Phone: Family [facility] [place] Comment on above: Results Start: 01-07-2022 End: 01-07-2022 Patient encounter procedure Boo Marina DO Work Phone: Family [facility] [place] Comment on above: 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) (Primary Dx); Need for influenza vaccination; Need for COVID-19 vaccine; Seborrheic dermatitis of scalp; Vitamin B12 deficiency; Vitamin D deficiency; Atrial fibrillation, persistent (HCC); Elevated brain natriuretic peptide (BNP) level; Dyslipidemia; Neuropathy; Eyelid lesion; COPD (chronic obstructive pulmonary disease) with chronic bronchitis (HCC); IFG (impaired fasting glucose); DANIEL (generalized anxiety disorder); Tobacco use; Stage 3b chronic kidney disease (HCC) Start: 12-07-2021 Refill Ekta Saira meneses SPA EXPERIENCE COORDINATOR.HEALTH INFORMATION SPECIALIST Work Phone: [facility] [place] Comment on above: Refill Request Start: 12-07-2021 Refill Boo watkins DO Work Phone: [facility] Comment on above: Refill Request Start: 12-04-2021 End: 12-05-2021 ambulatory KAREEM SHEN MD Facility:A Start: 12-04-2021 End: 12-05-2021 Observation KAREEM SHEN MD [facility] Start: 11-30-2021 Telephone encounter Boo armstrong DO Work Phone: [facility] [place] Comment on above: Fax Requested Start: 11-29-[address] SPA EXPERIENCE COORDINATOR.HEALTH INFORMATION SPECIALIST Work Phone: [facility] [place] Comment on above: Results Start: 11-17-2021 Follow-up encounter Jayjay smith MD Work Phone: [facility] Start: 11-17-2021 Pacemaker Remote F/U Jayjay Johnson MD Work Phone: [facility] Start: 10-16-2021 Telephone encounter Giuliana Tegey RN C ardiology Comment on above: Patient Update Start: 10-12-2021 Refill Ekta Saira meneses SPA EXPERIENCE COORDINATOR.HEALTH INFORMATION SPECIALIST Work Phone: [facility] [place] Comment on above: Refill Request Start: 10-12-2021 Refill Boo watkins DO Work Phone: [facility] [place] Comment on above: Refill Request Start: 10-10-2021 Telephone encounter Boo David armstrong DO Work Phone: [facility] [place] Comment on above: Results Start: 10-09-2021 End: 10-09-2021 Patient encounter procedure Luh Rojas OD Work Phone: Ophthalmology Comment on above: Eyelid lesion (Prima ry Dx); Squamous blepharitis of upper and lower eyelids of both eyes; Pseudophakia of both eyes; Right epiretinal membrane; Intermediate stage nonexudative age-related macular degeneration of both eyes; Corneal guttata of both eyes Start: 10-01-2021 ambulatory Boo watkins DO Work Phone: [facility] [place] Comment on above: Blood Pressure Start: 09-28-2021 End: 09-28-2021 Patient encounter procedure Zoraida Hodge APRN.CNP Work Phone: [facility] [place] Comment on above: Numbness of toes (Pr imary Dx); Neuropathy; Eczema of both external ears; Chronic eczematous otitis externa of both ears Start: 09-28-2021 Telephone encounter Zoraida Cohen APRN.MADY Work Phone: [facility] [place] Comment on above: pharmacy questioning ear drop rx Start: 09-27-2021 ambulatory Boo watkins DO Work Phone: [facility] [place] Comment on above: Musculoskeletal Prob eugenio Start: 09-14-2021 Refill Ekta meneses SPA EXPERIENCE COORDINATOR.HEALTH INFORMATION SPECIALIST Work Phone: [facility] [place] Comment on above: Refill Request Start: 09-12-2021 Telephone encounter Jayjay smith MD Work Phone: Cardiology Comment on above: Appointment (Patient can't come to [place]) Start: 09-11-2021 Follow-up encounter Jayjay smith MD Work Phone: [facility] Start: 09-11-2021 Pacemaker Remote F/U Jayjay Johnson MD Work Phone: [facility] Start: 09-11-2021 Telephone encounter Boo armstrong DO Work Phone: Family [facility] [place] Comment on above: Appt concerns Start: 09-03-2021 Follow-up encounter Jayjay smith MD Work Phone: [facility] Start: 09-03-2021 Pacemaker Remote F/U Jayjay Johnson MD Work Phone: [facility] Start: 08-22-2021 Orders Only Jayjay schrader MD Work Phone: Cardiology Comment on above: Chronic systolic con gestive heart failure (HCC) (Primary Dx) Schedule Surgery (ad d CS lead to PPM) Start: 08-20-2021 Chart abstracting Jayjay rodríguez MD Work Phone: Cardiology Start: 08-15-2021 Follow-up encounter Jayjay smith MD Work Phone: [facility] Start: 08-15-2021 Pacemaker Remote F/U Jayjay Johnson MD Work Phone: [facility] Start: 07-12-2021 Telephone encounter Boo armstrong DO Work Phone: [facility] [place] Comment on above: Plan of Care Start: 12-10-2017 Ambulatory YONI TAPIA Facility :[facility] Start: 06-16-2017 End: 06-16-2017 Ambulatory YONI TAPIA [facility] Start: 05-29-2017 End: 05-29-2017 Ambulatory YONI TAPIA [facility] Start: 04-29-2017 Ambulatory Turner Syed Fac ility:[facility] Procedures Date Procedure Procedure Detail Performing Clinician Start: 02-17-2023 Colonoscopy Nanci Judimella Start: 02-16-2023 Esophagogastroduodenoscopy Nanci Brandindime lla Start: 08-29-2022 Urinalysis BOO MARINA Comment on above: Result Comment: URINALYSIS Performed By: #### [id number] #### [facility],[address] [place] [address] Start: 04-10-2022 Simple repair f/e/e/n/l/m 2.5cm/< Gloriaer estefani Davila MD Work Phone: Start: 01-29-2022 SKIN / NAIL BIOPSY Young Kang MD Work Phone: Start: 01-29-2022 Computerized ophthalmic imaging retina Juan Carlos Cuadra OD Work Phone: Start: 01-07-2022 [employer] COVID-19 BIVALENT BOOSTER VACCINE, AGE 12+ YR Boo Marina DO Work Phone: Start: 01-07-2022 INFLUENZA SEASONAL QUADRIVALENT HIGH DOSE AGE 65+ Boo Marina DO Work Phone: Start: 11-17-2021 PACEMAKER REMOTE CHECK Jayjay Sweeney MD Work Phone: Start: 09-11-2021 PACEMAKER REMOTE CHECK Jayjay Sweeney MD Work Phone: Start: 09-03-2021 PACEMAKER REMOTE CHECK Jayjay Sweeney MD Work Phone: Start: 08-15-2021 PACEMAKER REMOTE CHECK Jayjay Sweeney MD Work Phone: Start: 03-03-2020 Cardioversion KAREEM SHEN MD Comment on above: 12/2019 Cardiac pacemakerjose juan (physical object) KAREEM SHEN MD Comment on above: 08-17-2012- [facility]- Now followi ng with Dr. Shen as of 12-03-2021. [employer]onic PPM Advisa- A2DR01, SN: [id number]. RA lead 5086, SN: [id number]. RV lead 5086, SN: [id number] Cardiac pacemaker, d evice (physical object) KAREEM SHEN MD Comment on above: 08-17-2012- [facility]- Now followi ng with Dr. Shen as of 12-03-2021. [employer] PPM Advisa- A2DR01, SN: [id number]. RA lead 5086, SN: [id number]. RV lead 5086, SN: [id number] 12-04-2021 Upgrade to EMBEDDED PROCESSOR-P LV lead added 4798, SN: [id number]. Cardiac pacemaker, d evice (physical object) Nanci Jarvis Echocardiography KAREEM SHEN MD Comment on above: CONCLUSION: 1. Left ventricle is normal in size and thickness. There is prominent sigmoid septum. Systolic ejection fraction is50-55%. There are no regional wall motion abnormality seen. 2. Right atrium is moderately enlarged 3. There is mild mitral valve regurgitation 4. Aortic valve is trileaflet with diffuse sclerosis. There is trivial aortic valve regurgitation and no stenosis5. There is mild tricuspid and pulmonic valve regurgitation 6. Right ventricle is normal in size and systolic function. There is pacemaker/ICD lead seen 7. Estimated right ventricular systolic pressure is 38 mm Hg. 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 Malignant neoplasm o f skin (disorder) KAREEM SHEN MD Comment on above: removal under left eye Plan of Treatment Date Care Activity Detail Author Start: 12-07-2025 DIABETES SCREEN DIABETES SCREEN [facility] Start: 12-07-2025 Diabetes Screening Diabetes Screening [facility] Start: 10-18-2025 DIABETES SCREEN DIABETES SCREEN [facility] Start: 10-08-2025 DIABETES SCREEN DIABETES SCREEN [facility] Start: 07-22-2025 DIABETES SCREEN DIABETES SCREEN [facility] Start: 01-07-2025 DIABETES SCREEN DIABETES SCREEN [facility] Start: 10-08-2024 DIABETES SCREEN DIABETES SCREEN [facility] Start: 07-04-2024 DIABETES SCREEN DIABETES SCREEN [facility] Start: 12-07-2023 Hepatitis B surface antibody level LDL CHOLESTEROL [facility] Start: 07-23-2023 Hepatitis B surface antibody level LDL CHOLESTEROL [facility] Start: 07-09-2023 Urine microalbumin profile [facility] Comment on above: Postponed from 09/29/1954 (Declined at t his time) Start: 12-20-2022 Covid-19 Vaccine () Covid-19 Vaccine () [facility] Start: 12-20-2022 Influenza vaccination [facility] Start: 07-08-2022 End: 09-07-2022 25-hydroxyvitamin D3 [Mass/volume] in Serum or Plasma VITAMIN D 25 HYDROXY Lab Routine Vitamin D deficiency Expected: 07/08/2022, Expires: 09/07/2022 [facility] Work Phone: Comment on above: Expected: 07/08/2022, Expires: 3 Start: 07-08-2022 End: 09-07-2022 CBC W Auto Differential panel - Blood CBC + DIFF Lab Routine Essential hypertension Expected: 07/08/2022, Expires: 09/07/2022 [facility] Work Phone: Comment on above: Expected: 07/08/2022, Expires: 3 Start: 07-08-2022 End: 09-07-2022 Comprehensive metabolic 2000 panel - Serum or Plasma COMP METABOLIC PANEL Lab Routine Essential hypertension Expected: 07/08/2022, Expires: 09/07/2022 [facility] Work Phone: Comment on above: Expected: 07/08/2022, Expires: 3 Start: 07-08-2022 End: 09-07-2022 Hemoglobin A1c in Blood HGB A1C Lab Routine Hypertriglyceridemia Dyslipidemia Expected: 07/08/2022, Expires: 09/07/2022 [facility] Work Phone: Comment on above: Expected: 07/08/2022, Expires: 3 Start: 07-08-2022 End: 09-07-2022 Lipid 1996 panel - Serum or Plasma LIPID PANEL BASIC Lab Routine Hypertriglyceridemia Dyslipidemia Expected: 07/08/2022, Expires: 09/07/2022 [facility] Work Phone: Comment on above: Expected: 07/08/2022, Expires: 3 Start: 07-08-2022 End: 09-07-2022 PSA/PROSTSPECAG SCRN PSA/PROSTSPECAG SCRN Lab Routine Screening for prostate cancer Expected: 07/08/2022, Expires: 09/07/2022 [facility] Work Phone: Comment on above: Expected: 07/08/2022, Expires: 3 Start: 07-04-2022 Hepatitis B surface antibody level LDL CHOLESTEROL [facility] Start: 06-15-2022 Urine microalbumin profile DTAP,TDAP,TD (1 - Tdap) [facility] Comment on above: Postponed from 09/29/1954 (Declined at t his time) Start: 05-11-2022 COVID-19 VACCINE (7 - Moderna series) COVID-19 VACCINE (7 - Moderna series) [facility] Start: 04-21-2022 DEPRESSION ASSESSMENT DEPRESSION ASSESSMENT [facility] Start: 12-20-2021 Influenza vaccination INFLUENZA (#1) [facility] Start: 08-22-2021 End: 08-22-2022 SARS-CoV-2 (COVID-19) RNA [Presence] in Respiratory specimen by LAURA with probe detection PRE-PROCEDURE & PRE-OPERATIVE COVID Microbiology Routine Chronic systolic congestive heart failure (HCC) Expected: 08/22/2021, Expires: 08/22/2022 [facility] Work Phone: Comment on above: Expected: 08/22/2021, Expires: 3 Start: 08-02-2021 COVID-19 VACCINE (4 - Booster for Moderna series) COVID-19 VACCINE (4 - Booster for Moderna series) [facility] Start: 01-01-2022 ADVANCE DIRECTIVE DISCUSSION ADVANCE DIRECTIVE DISCUSSION [facility] Start: 04-21-2021 DEPRESSION ASSESSMENT DEPRESSION ASSESSMENT [facility] Start: 12-20-2017 SHINGRIX VACCINE (2 of 2) SHINGRIX VACCINE (2 of 2) [facility] Start: 1995 RSV Vaccine (1 - 1-dose 60+ series) RSV Vaccine (1 - 1-dose 60+ series) [facility] Start: 09-29-1954 Urine microalbumin profile DTAP,TDAP,TD (1 - Tdap) [facility] Bacteria identified in Wound by Culture WOUND CULTURE AND GRAM STAIN Microbiology Routine Post-operative state Wound dehiscence 04/10/2022 3:59 PM EST [facility] Work Phone: End: 09-28-2022 PVR ANK PRESS [facility] PVR ANK PRESS [facility] Vascular Lab Routine Numbness of toes Neuropathy 1 Occurrences starting 09/28/2021 until 09/28/2022 [facility] Work Phone: Comment on above: 1 Occurrences starting 09/28/2021 until 09/28/2022 SURGICAL PATHOLOGY SKIN ONLY SURGICAL PATHOLOGY SKIN ONLY Lab Routine Neoplasm of unspecified behavior of bone, soft tissue, and skin Release Upon Ordering for 1 Occurrences starting 01/29/2022 [facility] Work Phone: Comment on above: Release Upon Ordering for 1 Occurrences starting 01/29/2022 [facility] Immunizations Immunization Date Immunization Notes Care Provider Tabby anderson 12-24-2022 influenza, high dose seasonal, preservative-free Nanci Gudimella [facility] [place] 01-09-2022 COVID-19 booster vaccine, age 12+ yr, bivalent ([employer]) Boo Bermanrison DO Work Phone: [facility] Work Phone: Comment on above: Result Comment: 2022: [id number] 01-07-2022 influenza virus vacc ine, unspecified formulation [facility] 01-07-2022 influenza, high-dose , quadrivalent vaccine (FLUZONE HIGH DOSE QUADRIVALENT) Boo Marina DO Work Phone: [facility] Work Phone: 04-03-2021 SARS-CoV-2 (COVID-19 ) mRNA-[id number] [facility] 12-29-2020 influenza virus vacc ine, unspecified formulation [facility] 12-29-2020 influenza, high-dose , quadrivalent vaccine (FLUZONE HIGH DOSE QUADRIVALENT) Boo Marina DO Work Phone: [facility] Work Phone: 06-22-2020 COVID-19 vaccine, fu ll dose (MODERNA) Zoraida Hodge SPA EXPERIENCE COORDINATOR.HEALTH INFORMATION SPECIALIST Work Phone: [facility] Work Phone: 06-21-2020 COVID-19 vaccine, fu ll dose (MODERNA) Boo Blakeon DO Work Phone: [facility] Work Phone: 05-25-2020 COVID-19 vaccine, fu ll dose (MODERNA) Zoraida Hodge APRN.HEALTH INFORMATION SPECIALIST Work Phone: [facility] Work Phone: 05-24-2020 COVID-19 vaccine, fu ll dose (MODERNA) Boo Bermanrison DO Work Phone: [facility] Work Phone: 12-15-2019 influenza virus vacc ine, unspecified formulation Nanci Gudimella [facility] 12-15-2019 influenza, high-dose , quadrivalent vaccine (FLUZONE HIGH DOSE QUADRIVALENT) Zoraida Christiano SPA EXPERIENCE COORDINATOR.HEALTH INFORMATION SPECIALIST Work Phone: [facility] Work Phone: 12-14-2019 influenza, high dose seasonal, preservative-free Boo Marina DO Work Phone: [facility] Work Phone: 01-05-2019 influenza virus vacc ine, unspecified formulation [facility] Gudimella [facility] 01-05-2019 influenza, high dose seasonal, preservative-free Boo Marina DO Work Phone: [facility] 02-24-2018 zoster vaccine recombinant Zoraida Christiano SPA EXPERIENCE COORDINATOR.HEALTH INFORMATION SPECIALIST Work Phone: [facility] Work Phone: 01-07-2018 influenza virus vacc ine, unspecified formulation [facility] Gudimella [facility] 01-07-2018 influenza, high dose seasonal, preservative-free Boo Marina DO Work Phone: [facility] Work Phone: 10-25-2017 zoster vaccine recombinant Boo Marina DO Work Phone: [facility] 02-04-2017 influenza virus vacc ine, unspecified formulation Nanci Gudimella [facility] 02-04-2017 influenza, high dose seasonal, preservative-free Zoraida Christiano SPA EXPERIENCE COORDINATOR.HEALTH INFORMATION SPECIALIST Work Phone: [facility] Work Phone: 06-19-2016 pneumococcal conjuga te vaccine, 13 valent Boo Marina DO Work Phone: [facility] Work Phone: 02-20-2016 influenza virus vacc ine, unspecified formulation Nanci Matheus [facility] [place] 02-20-2016 influenza, high dose seasonal, preservative-free Boo Marina DO Work Phone: [facility] 01-19-2015 pneumococcal polysaccharide vaccine, 23 valsandeep Sweeney MD Work Phone: [facility] Work Phone: Payers Date Payer Category Payer Private Health Insurance [id number] 2020 Medicaid MEDICAID [facility] MEDICAID [id number] 2020-Present [phone] [address] [place] [address] Medicaid [id number] 2019 Medicaid [id number] 2019 Medicaid [id number] 2019 Medicare [employer] MED[employer]ARE [employer] DUAL COMPLETE HMO SNP [id number] 2019-Present [phone] [address] [place] [address] Medicare [id number] 2019 Medicare [id number]. [id number] .[id number] 2019 Unknown [id number] 2017 Medicare [id number] 1935 Unknown [id number] 2.16.840.1.092606.3.579.2.6 1935 Unknown [id number] 2.16.840.1.137366.3.579.2.6 1935 Unknown [id number] 2.16.840.1.475933.3.579.2.6 27 1935 Unknown [id number] 2.16.840.1.896938.3.579.2.6 51 1935 Unknown [id number] 2.16.840.1.330804.3.579.2.6 51 1935 Unknown [id number] 2.16.840.1.069544.3.579.2.6 51 1935 Unknown [id number] 2.16.840.1.482282.3.579.2.6 51 1935 Unknown [id number] 2.16.840.1.991819.3.579.2.6 51 1935 Unknown [id number] 2.16.840.1.295590.3.579.2.7 27 1935 Unknown [id number] 2.16.840.1.120473.3.579.2.7 27 1935 Unknown [id number] 2.16.840.1.712140.3.579.2.7 27 1935 Unknown [id number] 2.16.840.1.934127.3.579.2.7 27 1935 Unknown [id number] 2.16.840.1.537984.3.579.2.7 27 1935 Unknown [id number] 2.16.840.1.291830.3.579.2.7 27 1935 Unknown [id number] 2.16.840.1.228978.3.579.2.7 27 1935 Unknown [id number] 2.16.840.1.027189.3.579.2.7 27 1935 Unknown [id number] 2.16.840.1.961249.3.579.2.7 27 1935 Unknown [id number] 2.16.840.1.440850.3.579.2.7 27 1935 Unknown [id number] 2.16.840.1.436041.3.579.2.7 27 1935 Unknown [id number] 2.16.840.1.799389.3.579.2.7 27 1935 Unknown [id number] 2.16.840.1.620993.3.579.2.7 27 1935 Unknown [id number] 2.16.840.1.675505.3.579.2.7 27 1935 Unknown [id number] 2.16.840.1.843494.3.579.2.7 27 1935 Unknown [id number] 2.16.840.1.758904.3.579.2.7 27 1935 Unknown [id number] 2.16.840.1.822084.3.579.2.7 27 1935 Unknown [id number] 2.16.840.1.325656.3.579.2.7 27 1935 Unknown [id number] 2.16.840.1.952416.3.579.2.7 27 1935 Unknown [id number] 2.16.840.1.480239.3.579.2.1 259 1935 Unknown [id number] 2.16.840.1.256537.3.579.2.1 259 1935 Unknown [id number] 2.16.840.1.798012.3.579.2.1 259 1935 Unknown [id number] 2.16.840.1.395546.3.579.2.1 259 1935 Unknown [id number] 2.16.840.1.112657.3.579.2.1 259 1935 Unknown [id number] 2.16.840.1.894794.3.579.2.1 259 1935 Unknown [id number] 2.16.840.1.979284.3.579.2.1 259 Medicare [id number] Social History Date Type Detail Facility Start: 11-30-2019 End: 12-16-2022 Tobacco smoking status NHIS Smokes tobacco daily [facility] History of tobacco use Cigarette Smoker C [facility] Start: 07-04-2021 End: 12-16-2022 Alcohol intake Current non-drinker of alcohol (finding) [facility] Start: 11-30-2019 End: 01-07-2022 Tobacco Comment PK EVERY 3 DAYS [facility] Start: 1935 Sex Assigned At Not on file [facility] Start: 06-24-2021 End: 03-06-2022 Exposure to SARS-CoV-2 (event) Not sure [facility] Work Phone: Start: 08-12-2021 End: 08-22-2021 Exposure to SARS-CoV-2 (event) Unable to assess [facility] Start: 11-30-2019 End: 12-16-2022 Tobacco use and exposure Smokeless tobacco non-user [facility] Tobacco Nicotine Use: unknown. [facility] Tobacco smoking status [facility] Start: 10-08-2022 End: 12-12-2022 History of Social function [facility] Work Phone: Start: 10-08-2022 End: 12-12-2022 Tobacco use panel [facility] Work Phone: Adult Depression Scr eening Assessment 1 [facility] Work Phone: (I/We) worried wheth er (my/our) food would run out before (I/we) got money to buy more. Never true [facility] Do you belong to any clubs or organizations such as spiritism groups, unions, fraternal or athletic groups, or school groups? No [facility] Are you now , , , , never or living with a partner? [facility] How often to you hav e a drink containing alcohol? Never [facility] Do you feel stress - tense, restless, nervous, or anxious, or unable to sleep at night because your mind is troubled all the time - these days [OSQ] Only a little [facility] Start: 12-24-2022 End: 03-14-2023 Tobacco smoking status Heavy tobacco smoker (finding) [facility] Start: 04-10-2023 End: 11-13-2023 Tobacco smoking status Light tobacco smoker (finding) [facility] Functional Status Date Assessment Result Facility 11-13-2023 Functional Status No [facility] 09-11-2023 Functional Status N/A [facility] 07-07-2023 Functional Status N/A [facility] 04-10-2023 Functional Status No [facility] 03-14-2023 Functional Status N/A [facility] 03-11-2023 Functional Status N/A [facility] 02-11-2023 Functional Status No [facility] 01-03-2023 Functional Status No [facility] 12-24-2022 Functional Status N/A [facility] 04-24-2022 Functional Status Ambulating in lopez, Ambulating in room [facility] 04-24-2022 Functional Status Breakfast Percent 100 A [facility] 04-24-2022 Functional Status Room located n ear nursing station, Room check performed [facility] 04-23-2022 Functional Status [facility] 04-23-2022 Functional Status [facility] 04-23-2022 Functional Status [facility] 04-23-2022 Functional Status Patient Identi fied Identification band, Verbal [facility] 04-23-2022 Functional Status [facility] 04-23-2022 Functional Status Maintained [facility] 12-05-2021 Functional Status Ambulating in lopez, Ambulating in room [facility] 12-05-2021 Functional Status Room located n ear nursing station, Door open, Reoriented [facility] 12-05-2021 Functional Status [facility] 12-04-2021 Functional Status [facility] 12-04-2021 Functional Status [facility] 12-04-2021 Functional Status Patient Identi fied Identification band, Verbal [facility] 12-04-2021 Functional Status Maintained, More than 8 hours [facility] Mental Status Date Assessment Result Facility 04-24-2022 Mental Status Orientation Oriented x 4, F orgetful [facility] 04-24-2022 [facility] 12-05-2021 Mental Status Orientation Oriented x 4 [facility] 12-05-2021 [facility] 12-04-[address] [facility] 12-04-[address] Mental [address] [facility] Clinical Notes 01-14-2020 to 09-11-2023 Hess-Femi Magallon RN - 12/18/2022 12:59 PM EDTPatient Luke Rowell DO - 12/16/2022 10:29 AM EDTTelephone Encounter - Chery Freitas MSW - 12/13/2022 10:07 AM EDT Note Date & Type Note Facility 09-11-2023 Note HPI Staff Lina Davies presents today for evaluation for HH or assisted living Currently at [facility] in [place]. [facility] is discharging patient [facility] informed daughter Michelle they are no longer accepting Thanh here for evaluation to determine what care needs to be determined for the next place he gets accepted at pt has till September 25 to find a new assisted living or home health cpt/Ht:175 History of Present Illness The patient is an 87-year-old male who currently needs to be evaluated for home health or assisted living. He was living [place] [facility] the [place]. They gave him 30 days. He will be kicked out on 09/26/2023. He was going to be transferred to [facility], but the daughter was just informed on the way to the office visit today that they are no longer accepting the patient. So, the patient is here to determine where to go for placement and for help to find placement as well by the time he is kicked out of [facility] on 09/26/2023. He is accompanied by his son. The patient was discharged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 of : NO Spoke to n/a Discharge Network Status: In-Network Discharge Summary: Concerns: Facility Sales And Admin plan for next outreach: Will follow up tcm MERT Education Ordered -: No Signature Femi Olivera, RN December 18, 2022 Allergies As of Date: 12/18/2022 Noted Allergy Reaction BANANA 12/10/2022 9 - Itching DUST 05/29/2017 14 - Other: See Comments GRASS POLLEN 05/29/2017 14 - Other: See Comments MOLD SPORES 05/29/2017 14 - Other: See Comments Date Reviewed: 12/16/2022 Reviewed by: Shelia Sharp MA - Fully Assessed Reason for Visit: Transition Of Care [4074] Cmt: TCM Follow-up day 8 Prescriptions as of 12/18/2022 - POTASSIUM-99 ORAL Take by mouth. - predniSONE (DELTASONE) 20 mg tablet Take 1 tablet by mouth once daily. - nitroglycerin sublingual (NITROQUICK) 0.4 mg SL tablet Dissolve 1 tablet under the tongue every 5 minutes as needed. - ezetimibe (ZETIA) 10 mg tablet Take 1 tablet by mouth once daily. - Cholecalciferol, Vitamin D3, 50 mcg (2,000 unit) cap Take 1 capsule by mouth once daily. - furosemide (LASIX) 20 mg tablet TAKE 1 TABLET BY MOUTH DAILY AFTER BREAKFAST *FOR SWELLING - Fenofibrate (LOFIBRA) 54 mg tablet Take 1 tablet by mouth once daily. - aspirin 81 mg chewable tablet Chew 1 tablet by mouth once daily. - atorvastatin (LIPITOR) 40 mg tablet Take 1 tablet by mouth daily at bedtime. - pantoprazole DR (PROTONIX) 40 mg tablet Take 1 tablet by mouth DAILY (6 AM). - apixaban (ELIQUIS) 2.5 mg tab(s) Take 1 tablet by mouth twice daily. Problem List As Of Date 12/18/2022 Noted Resolved Chronic rhinitis [J31.0] 06/30/2014 Cerumen impaction [H61.20] 06/30/2014 06/22/2020 Chronic otitis externa [H60.60] 06/30/2014 Presence of drug coated stent in left circumfle*08/10/2015 Asymptomatic LV dysfunction [I51.9] 08/10/2015 History of AR (myocardial infarction) [I25.2] 08/10/2015 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] 08/10/2015 S/P insertion of iliac artery stent [Z95.828] 08/10/2015 Presence of cardiac pacemaker [Z95.0] 08/10/2015 Sick sinus syndrome (HCC) [I49.5] 08/10/2015 Atrial fibrillation (HCC) [I48.91] 08/10/2015 Gastrointestinal hemorrhage associated with ang*08/10/2015 Dyslipidemia [E78.5] 08/10/2015 Tobacco use disorder [F17.200] 08/10/2015 Encounter for monitoring anti-arrhythmic therap*08/10/2015 06/22/2020 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] 08/10/2015 Chronic obstructive pulmonary disease (HCC) [J4*01/29/2016 CKD (chronic kidney disease) [N18.9] 06/19/2016 06/22/2020 Allergic rhinitis [J30.9] 06/19/2016 06/22/2020 Essential hypertension [I10] 06/19/2016 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] 12/21/2015 CAD (coronary artery disease) [I25.10] 12/23/2019 Aortic aneurysm (HCC) [I71.9] 06/22/2020 Abnormal cholesterol test [E78.9] 06/22/2020 COPD (chronic obstructive pulmonary disease) (H* 06/22/2020 H/O right heart catheterization [Z98.890] 06/22/2020 High blood pressure [I10] 07/29/2016 History of heart attack [I25.2] 06/22/2020 Neuropathy (HCC) [G62.9] Thrombocytopenia (HCC) [D69.6] Hypertriglyceridemia [E78.1] Low HDL (under 40) [E78.6] 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]07/29/2016 06/22/2020 History of abdominal aortic aneurysm repair [Z9*07/29/2016 06/22/2020 COPD (chronic obstructive pulmonary disease) wi*07/08/2017 Chronic seasonal allergic rhinitis due to polle*07/08/2017 Stage 3 chronic kidney disease (HCC) [N18.30] 10/08/2017 06/22/2020 Coronary artery disease due to lipid rich plaqu*10/08/2017 06/22/2020 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] 04/08/2018 Albuminuria [R80.9] 05/18/2018 06/22/2020 Paroxysmal atrial fibrillation (HCC) [I48.0] 01/14/2020 06/22/2020 Atrial flutter (HCC) [I48.92] 03/03/2020 Chronic combined systolic and diastolic congest*09/26/2020 Tinea corporis [B35.4] 09/26/2020 Tick bite of abdomen [S30.861A, W57.XXXA] 09/26/2020 Actinic keratosis [L57.0] 09/26/2020 Benign prostatic hyperplasia without lower urin*12/30/2020 Elevated brain natriuretic peptide (BNP) level *12/30/2020 Hypertensive heart and kidney disease with certified ethical hacker*07/02/2021 Palpitations [R00.2] 12/23/2019 Hypertensive chronic kidney disease with stage *12/23/2019 Chronic sinusitis, unspecified [J32.9] 05/09/2017 Hyperlipidemia, unspecified [E78.5] 12/23/2019 At [facility] (more content not included)... [facility] 12-18-2022 History of Present illness Narrative TRANSITION CARE MANAGEMENT (TCM) FOLLOW-UP NOTE Provider Action/FYI Tcm Follow - Up Day 8 Future Appts None Defer Call Per Chart review Patient had office visit on 12/16/22 with Family Medicine Will follow-up next week Patient identified by name and date of : NO Spoke to n/a Discharge Network Status: In-Network Discharge Summary: Concerns: Facility Sales And Admin plan for next outreach: Will follow up tcm MERT Education Ordered -: No Signature Femi Olivera RN December 18, 2022 documented in this encounter [facility] 12-16-2022 Hospital Discharge instructions Follow Up Care 12/16/2022 16:30:13 With:Nanci Jarvis MD, [facility] Address: [address] [place], [place] [id number]- [phone] Business (1) When:Within 3 Month(s) [facility] [place] 12-16-2022 Note HNO ID: [id number] Author: Luke Sun, DO Service: ? Author Type: Physician Type: Progress Notes Filed: 12/16/2022 1:59 PM Note Text: Sriram Coleman is a 87 year old male. 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 Dyslipidemia Tobacco Use Disorder H/O Abdominal Aortic Aneurysm Repair Chronic Obstructive Pulmonary Disease (Hcc) Essential Hypertension Stage 3b Chronic Kidney Disease (Hcc) Cad (Coronary Artery Disease) Neuropathy Thrombocytopenia (Hcc) Hypertriglyceridemia Low Hdl (Under 40) Copd (Chronic Obstructive Pulmonary Disease) With Chronic Bronchitis (Hcc) 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 Atrial Flutter (Hcc) Chronic Combined Systolic and Diastolic Congestive Heart Failure (Hcc) Tinea Corporis Tick Bite of Abdomen Actinic Keratosis Benign Prostatic Hyperplasia Without Lower Urinary Tract Symptoms Elevated Brain Natriuretic Peptide (Bnp) Level Hypertensive Heart and Kidney Disease With Chronic Combined Systolic and Diastolic Congestive Heart Failure and Stage 3b Chronic Kidney Disease ([facility]) Palpitations Hypertensive Chronic Kidney Disease With Stage 1 Through Stage 4 Chronic Kidney Disease, Or Unspecified Chronic Kidney Disease Chronic Sinusitis, Unspecified Hyperlipidemia, Unspecified At Risk for Stroke Anticoagulant Long-Term Use Numbness of Toes Ifg (Impaired Fasting Glucose) Daniel (Generalized Anxiety Disorder) Fatigue Paresthesia of Foot, Bilateral Eyelid Lesion Atrial Fibrillation, Persistent ([facility]) Vitamin D Deficiency Vitamin B12 Deficiency 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) s/p repair AAA Atrial flutter ([facility]) 03/03/2020 CAD (coronary artery disease) pacemaker, hyperlipidemia, hyperlipidemia Chronic combined systolic and diastolic congestive heart failure (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) 12/2015 COPD (chronic obstructive pulmonary disease) (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) 07/02/2021 Hypertriglyceridemia Low HDL (under 40) Neuropathy Palpitations 12/23/2019 Permanent atrial fibrillation ([facility]) 08/10/2015 Presence of cardiac pacemaker 08/10/2015 Presence of drug coated stent in left circumflex coronary artery 08/10/2015 Sick sinus syndrome ([facility]) 08/10/2015 Stage 3b chronic kidney disease ([facility]) 12/21/2015 TB (pulmonary tuberculosis) Thrombocytopenia ([facility]) PAST SURGICAL HISTORY Procedure Laterality Date ABD AORTIC ANEURYSM REPAIR CORONARY STENT EA VESSEL 3-2009 x 2, drug eluting ILIAC SLEEPING BAG FILLER W/WO STENT PACEMAKER DUAL CHAMBER TIER 0 -2012 PAST SURGICAL HISTORY OF resection lobe of lung,,AAA FAMILY HISTORY Problem Relation Age of Onset No Ocular Disease Mother other (TB) Mother Stroke Father No Ocular Disease Father Cancer Brother Kidney Disease Sister Social History Tobacco Use Smoking status: Every Day Types: Cigarettes Smokeless tobacco: Never Tobacco comments: PK EVERY 3 DAYS Vaping Use Vaping Use: Former Substances: Nicotine Devices: Disposable Substance Use Topics Alcohol use: No Drug use: No Tobacco Use Every Day; Types: Cigarettes Smokeless Tobacco: Never used smokeless tobacco. Comments: PK EVERY 3 DAYS Vaping Use Former; Substances: Nicotine; Devices: Disposable Alcohol Use No. Drug Use: No ALLERGIES Allergen Reactions Banana Itching (more content not included)... [facility] 12-16-2022 Instructions Luke Sun DO - 12/16/2022 10:30 AM EDT We discussed a healthcare plan Remember if you have any questions you can call the office or reach Dr. Sun on MyChart Take all medications and supplements as prescribed Remember a healthy diet with minimal processed foods and half a plate of vegetables Establish with primary care doctor Have them connect you with neurology and cardiology closeby Take all your medications as prescribed documented in this encounter [facility] 12-16-2022 History of Present illness Narrative Sriram Coleman is a 87 year old male. 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 Dyslipidemia Tobacco Use Disorder H/O Abdominal Aortic Aneurysm Repair Chronic Obstructive Pulmonary Disease (Hcc) Essential Hypertension Stage 3b Chronic Kidney Disease (Hcc) Cad (Coronary Artery Disease) Neuropathy Thrombocytopenia (Hcc) Hypertriglyceridemia Low Hdl (Under 40) Copd (Chronic Obstructive Pulmonary Disease) With Chronic Bronchitis (Hcc) 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 Atrial Flutter (Hcc) Chronic Combined Systolic and Diastolic Congestive Heart Failure ([facility]) Tinea Corporis Tick Bite of Abdomen Actinic Keratosis Benign Prostatic Hyperplasia Without Lower Urinary Tract Symptoms Elevated Brain Natriuretic Peptide (Bnp) Level Hypertensive Heart and Kidney Disease With Chronic Combined Systolic and Diastolic Congestive Heart Failure and Stage 3b Chronic Kidney Disease (Hcc) Palpitations Hypertensive Chronic Kidney Disease With Stage 1 Through Stage 4 Chronic Kidney Disease, Or Unspecified Chronic Kidney Disease Chronic Sinusitis, Unspecified Hyperlipidemia, Unspecified At Risk for Stroke Anticoagulant Long-Term Use Numbness of Toes Ifg (Impaired Fasting Glucose) Daniel (Generalized Anxiety Disorder) Fatigue Paresthesia of Foot, Bilateral Eyelid Lesion Atrial Fibrillation, Persistent ([facility]) Vitamin D Deficiency Vitamin B12 Deficiency 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) s/p repair AAA Atrial flutter ([facility]) 03/03/2020 CAD (coronary artery disease) pacemaker, hyperlipidemia, hyperlipidemia Chronic combined systolic and diastolic congestive heart failure (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) 12/2015 COPD (chronic obstructive pulmonary disease) (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) 07/02/2021 Hypertriglyceridemia Low HDL (under 40) Neuropathy Palpitations 12/23/2019 Permanent atrial fibrillation ([facility]) 08/10/2015 Presence of cardiac pacemaker 08/10/2015 Presence of drug coated stent in left circumflex coronary artery 08/10/2015 Sick sinus syndrome ([facility]) 08/10/2015 Stage 3b chronic kidney disease (HCC) 12/21/2015 TB (pulmonary tuberculosis) Thrombocytopenia (HCC) PAST SURGICAL HISTORY Procedure Laterality Date ABD AORTIC ANEURYSM REPAIR CORONARY STENT EA VESSEL 3-2008 x 2, drug eluting ILIAC SLEEPING BAG FILLER W/WO STENT PACEMAKER DUAL CHAMBER TIER 0 -2012 PAST SURGICAL HISTORY OF resection lobe of lung,,AAA FAMILY HISTORY Problem Relation Age of Onset No Ocular Disease Mother other (TB) Mother Stroke Father No Ocular Disease Father Cancer Brother Kidney Disease Sister Social History Tobacco Use Smoking status: Every Day Types: Cigarettes Smokeless tobacco: Never Tobacco comments: PK EVERY 3 DAYS Vaping Use Vaping Use: Former Substances: Nicotine Devices: Disposable Substance Use Topics Alcohol use: No Drug use: No Tobacco Use Every Day; Types: Cigarettes Smokeless Tobacco: Never used smokeless tobacco. Comments: PK EVERY 3 DAYS Vaping Use Former; Substances: Nicotine; Devices: Disposable Alcohol Use No. Drug Use: No ALLERGIES Allergen Reactions Banana Itching Dust Other: See Comments Grass Pollen Other: See Comments Mold Spores Other: See Comments MEDICATIONS: nitroglycerin sublingual (NITROQUICK) 0.4 mg SL tablet Dissolve 1 tablet under the tongue every 5 minutes as needed. ezetimibe (ZETIA) 10 mg tablet Take 1 tablet by mouth once daily. Cholecalciferol, Vitamin D3, 50 mcg (2,000 unit) cap Take 1 capsule by mouth once daily. furosemide (LASIX) 20 mg tablet TAKE 1 TABLET BY MOUTH DAILY AFTER BREAKFAST *FOR SWELLING Fenofibrate (LOFIBRA) 54 mg tablet Take 1 tablet by mouth once daily. aspirin 81 mg chewable tablet Chew 1 tablet by mouth once daily. atorvastatin (LIPITOR) 40 mg tablet Take 1 tablet by mouth daily at bedtime. pantoprazole DR (PROTONIX) 40 mg tablet Take 1 tablet by mouth DAILY (6 AM). apixaban (ELIQUIS) 2.5 mg tab(s) Take 1 tablet by mouth twice daily. Allergies, medications, past surgical history, family history and past medical history were reviewed per this encounter. Patient is a 87-year-old male former smoker and user of walker with a past medical history significant for AR heart failure atrial fibrillation and CVA resenting as a hospital discharge. Patient was hospitalized for new onset CVA: CT brain showed no acute abnormalities. CTA head and neck showed mild irregular narrowing at right M1 segment of MCA. There was also hard plaque present at the carotid bulb and origin of the ICA bilaterally. 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 And treatment includes aspirin and Eliquis and Lipitor. Patient came in today using a walker and is accompanied by his daughter. Today patient feels better. He is able to balance well not concerned about getting physical therapy but was concerned about the long drive it took to get here for his daughter's. Patient lives in [place] and so this is 2 hours away from home. Today patient's concern was far more about his right second toe pain and swelling. Patient believes this is happened may be a couple days ago. In addition to a mass on the lateral side of his foot close to his ankle. Patient could not wear shoe but was able to wear a sock and tolerate manipulation. The history is provided by the patient and medical records. No high school social science teacher was used. Review of Systems Constitutional: Positive for activity change (pt moving slower) and fatigue. Negative for chills, fever and unexpected weight change. HENT: Positive for hearing loss (with age). Negative for ear discharge, ear pain and tinnitus. Eyes: Negative for pain, discharge, redness and visual disturbance. Respiratory: Negative for cough, chest tightness, shortness of breath and wheezing. Cardiovascular: Positive for leg swelling. Negative for chest pain and palpitations. Gastrointestinal: Negative for abdominal pain, diarrhea, nausea and vomiting. Genitourinary: Negative for difficulty urinating. Musculoskeletal: Positive for back pain, gait problem, joint swelling and myalgias. Neurological: Negative for dizziness, seizures, syncope, facial asymmetry, speech difficulty, weakness, light-headedness, numbness and headaches. Psychiatric/Behavioral: Negative for agitation and confusion. Objective Ht 180.3 cm (5' 11 ) Wt 86.7 kg (191 lb 3.2 oz) BMI 26.67 kg/m Physical Exam Vitals and nursing note reviewed. Constitutional: General: He is not in acute distress. Appearance: Normal appearance. He is not ill-appearing. HENT: Head: Normocephalic and atraumatic. Nose: Nose normal. No congestion or rhinorrhea. Eyes: Pupils: Pupils are equal, round, and reactive to light. Cardiovascular: Rate and Rhythm: Tachycardia present. Rhythm irregular. Pulses: Normal pulses. Heart sounds: Normal heart sounds. No murmur heard. Pulmonary: Effort: Pulmonary effort is normal. No respiratory distress. Breath sounds: Normal breath sounds. No wheezing, rhonchi or rales. Abdominal: General: Bowel sounds are normal. Palpations: Abdomen is soft. There is no mass. Tenderness: There is no abdominal tenderness. Hernia: No hernia is present. Musculoskeletal: General: Swelling (right 2nd toe) and tenderness present. No deformity or signs of injury. Normal range of motion. Cervical back: Normal range of motion and neck supple. Right lower leg: No edema. Left lower leg: No edema. Lymphadenopathy: Cervical: No cervical adenopathy. Skin: General: Skin is warm and dry. Findings: No bruising, lesion or rash. Neurological: General: No focal deficit present. Mental Status: He is alert and oriented to person, place, and time. Cranial Nerves: No cranial nerve deficit. Sensory: No sensory deficit. Motor: No weakness. Gait: Gait normal. Psychiatric: Mood and Affect: Mood normal. Behavior: Behavior normal. Assessment and Plan ASSESSMENT/PLAN: 1. 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 2. Pain and swelling of toe of right foot - ICD9: 729.5, 729.81, ICD10: M79.674, M79.89 There is concern the patient could have gout or pseudogout however given the long distance and the possibility of being lost to follow-up and the recent CVA, yielding a relative contraindication to NSAIDs, decided to give patient a steroid burst. - PREDNISONE 20 MG TABLET 3. Chronic combined systolic and diastolic congestive heart failure (HCC) - ICD9: 428.42, 428.0, ICD10: I50.42 4. Stage 3b chronic kidney disease (HCC) - ICD9: 585.3, ICD10: N18.32 - eGFR: Stable LUKE SUN DO documented in this encounter [facility] 12-13-2022 Miscellaneous Notes Andre spoke with patient daughter Tiffany about older adult programs. Tiffany notes that patient is staying with her right now in [place]. Patient has been a resident of [place], until now going to [place]. Tiffany notes that patient reports that he would like to be located between Tiffany and her sister Peggy. [place] would be in between. Tiffany reports that she has been able to cardroom worker doing her medical billing. Concerns from patient stroke: falls/memory impairment. Andre and Tiffany discussed that some AL accept Medicaid/Waiver upon entry. Tiffany and Andre also discussed Guardianship and probate court. Discussed benefits by utilizing [employer] Environmental Field Office Manager. Tiffany notes that one of her sisters used to be patient POLesli. This sister though now does not have contact with family. Andre discussed with Tiffany that [employer] also may provide assistance for guardianship corporate associate attorney needs. Andre provided Tiffany with AAA 9 phone number for [facility]. Patient has been [facility] resident and this would be a good place to start searching for patient resources. Andre provided Tiffany with her direct number for further patient care needs. Tiffany also noted that she would pass along direct number to her sister Peggy. Peggy is listed as a patient contact as well. Andre called and briefly spoke with patient daughter Tiffany. Tiffany asks that Sw reach back out to her in the morning. Tiffany reports that she is driving home and there is high water in some areas, so wants to watch where she is going. Andre will try call again tomorrow morning. documented in this encounter [facility] 12-12-2022 Note HNO ID: [id number] Author: Zoraida Hodge APRN.HEALTH INFORMATION SPECIALIST Service: ? Author Type: Nurse Practitioner Type: Progress Notes Filed: 12/13/2022 9:40 AM Note Text: Chief Complaint Patient presents with: Hospital F/U: Stroke, Dementia, needs 11/11 home care HPI Thanh Coleman is a 87 year old male who presents here today for Above Complaints.. Today: Was admitted to [facility] for stroke, has 75% blockage in his carotid artery. Was there from 12/06 to 12/10/2022. Originally one side of his face was drooping, arm and leg wasn't working well. Asked him questions and he didn't know simple answers-such as how many kids he had and their names. Called two of his sisters his daughters' names. Memory changes. Short term memory is 1/2 and 1/2. skilled nursing memory is confused, specifically with people. Is very repetitive. Patient does not think there are any concerns and does not recognize he is having any of the sx but daughter is present and states she and her sister have noticed these significant changes that have been progressing over the past several months. Is not able to cook for himself, clean house, do his laundry. Does shower, dress self, basic ADLs. Neighbor Nanci was helping take care of him. Kept his family away from him. She was throwing pills away. Home care nurse knew x2 months and was reporting in her paperwork. clean up worker was aware as well and family was not informed. Neighbor was controlling and made it difficult for family to be involved in patient's care. Family is requesting guardianship. Was recommended that he move to assisted living and needs help making sure he takes his medications, etc. Seeing heart doctor in 4 days-Dr. Sun in [place]. Past medical history, appointments, medications, allergies reviewed. Previous Medical History PAST MEDICAL HISTORY Diagnosis Date Anticoagulant long-term use Aortic aneurysm ([facility]) s/p repair AAA Atrial flutter ([facility]) 03/03/2020 CAD (coronary artery disease) pacemaker, hyperlipidemia, hyperlipidemia Chronic combined systolic and diastolic congestive heart failure (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) 12/2015 COPD (chronic obstructive pulmonary disease) (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 (HCC) 07/02/2021 Hypertriglyceridemia Low HDL (under 40) Neuropathy Palpitations 12/23/2019 Permanent atrial fibrillation (HCC) 08/10/2015 Presence of cardiac pacemaker 08/10/2015 Presence of drug coated stent in left circumflex coronary artery 08/10/2015 Sick sinus syndrome (HCC) 08/10/2015 Stage 3b chronic kidney disease (HCC) 12/21/2015 TB (pulmonary tuberculosis) Thrombocytopenia (HCC) Previous Surgical History PAST SURGICAL HISTORY Procedure Laterality Date ABD AORTIC ANEURYSM REPAIR CORONARY STENT EA VESSEL 3-2008 x 2, drug eluting ILIAC SLEEPING BAG FILLER W/WO STENT PACEMAKER DUAL CHAMBER TIER 0 -2012 PAST SURGICAL HISTORY OF resection lobe of lung,,AAA Family History FAMILY HISTORY Problem Relation Age of Onset No Ocular Disease Mother other (TB) Mother Stroke Father No Ocular Disease Father Cancer Brother Kidney Disease Sister Patient Allergies ALLERGIES Allergen Reactions Banana Itching Dust Other: See Comments Grass Pollen Other: See Comments Mold Spores Other: See Comments Current Medications Current Outpatient Medications on File Prior to Visit Medication Sig aspirin 81 mg chewable tablet Chew 1 tablet by mouth once daily. atorvastatin (LIPITOR) 40 mg tablet Take 1 tablet by mouth daily at bedtime. pantoprazole DR (PROTONIX) 40 mg tablet Take 1 tablet by mouth DAILY (6 AM). apixaban (ELIQUIS) 2.5 mg tab(s) Take 1 tablet by mouth twice daily. furosemide (LASIX) 20 mg tablet TAKE 1 TABLET BY MOUTH DAILY AFTER BREAKFAST *FOR SWELLING Cholecalciferol, Vitamin D3, 50 mcg (2,000 unit) cap Take 1 capsule by mouth once daily. ezetimibe (ZETIA) 10 mg tablet Take 1 tablet by mouth once daily. Fenofibrate (LOFIBRA) 54 mg tablet Take 1 tablet by mouth once daily. nitroglycerin sublingual (NITROQUICK) 0.4 mg SL tablet Dissolve 1 tablet under the tongue every 5 minutes as needed. albuterol HFA (VENTOLIN HFA) 90 mcg/actuation inhaler Inhale 2 Puffs as instructed every 4 hours as needed for wheezing/shortness of breath. (Patient not taking: Reported on 12/12/2022) No current facility-administered medications on file prior to visit. Social Histor (more content not included)... [facility] 12-12-[facility] Miscellaneous Notes Being addressed in office today. Closing this encounter. Thank you, Ekta Mandujano APRN.HEALTH INFORMATION SPECIALIST Daughter, Michelle Quach, reports patient was transported via ambulance to [facility] early Friday morning. [facility] [place] transferred patient to [facility] to r/o stroke. CT showed patient had stroke and blockage in the neck. MRI was not done b/c patient has stents, but he, or family do not know where the stents are. [facility] was doing an ECHO today when family left. Hospital informed family today, patient will be d/c'd tomorrow, and will need 24/7 care. Family is trying to work on this. Reports patient needs a dementia test, so family can file for guardianship, and make needed decisions. Reports patient may need to go to assisted living. Reports patient still drives, so that will need to be addressed. Reports patient has a [facility] case management coordinator, and [facility] home case management coordinator. Reports the biggest problem is patient is not taking his medications correctly. Reports patient is confused and doesn't always know his family members. Reports patient is able to walk and able to take himself to the bathroom. Scheduled hosp f/u appt with Senior Online Marketing Manager on , this week. documented in this encounter [facility] 12-12-2022 History of Present illness Narrative Chief Complaint Patient presents with: Hospital F/U: Stroke, Dementia, needs 24/7 home care HPI Thanh Coleman is a 87 year old male who presents here today for Above Complaints.. Today: Was admitted to [facility] for stroke, has 75% blockage in his carotid artery. Was there from 12/06 to 12/10/2022. Originally one side of his face was drooping, arm and leg wasn't working well. Asked him questions and he didn't know simple answers-such as how many kids he had and their names. Called two of his sisters his daughters' names. Memory changes. Short term memory is 1/2 and 1/2. 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 Is very repetitive. Patient does not think there are any concerns and does not recognize he is having any of the sx but daughter is present and states she and her sister have noticed these significant changes that have been progressing over the past several months. Is not able to cook for himself, clean house, do his laundry. Does shower, dress self, basic ADLs. Neighbor Nanci was helping take care of him. Kept his family away from him. She was throwing pills away. Home care nurse knew x2 months and was reporting in her paperwork. clean up worker was aware as well and family was not informed. Neighbor was controlling and made it difficult for family to be involved in patient's care. Family is requesting guardianship. Was recommended that he move to assisted living and needs help making sure he takes his medications, etc. Seeing heart doctor in 4 days-Dr. Sun in [place]. Past medical history, appointments, medications, allergies reviewed. Previous Medical History PAST MEDICAL HISTORY Diagnosis Date Anticoagulant long-term use Aortic aneurysm ([facility]) s/p repair AAA Atrial flutter ([facility]) 03/03/2020 CAD (coronary artery disease) pacemaker, hyperlipidemia, hyperlipidemia Chronic combined systolic and diastolic congestive heart failure (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) 12/2015 COPD (chronic obstructive pulmonary disease) (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 (HCC) 07/02/2021 Hypertriglyceridemia Low HDL (under 40) Neuropathy Palpitations 12/23/2019 Permanent atrial fibrillation (HCC) 08/10/2015 Presence of cardiac pacemaker 08/10/2015 Presence of drug coated stent in left circumflex coronary artery 08/10/2015 Sick sinus syndrome (HCC) 08/10/2015 Stage 3b chronic kidney disease (HCC) 12/21/2015 TB (pulmonary tuberculosis) Thrombocytopenia (HCC) Previous Surgical History PAST SURGICAL HISTORY Procedure Laterality Date ABD AORTIC ANEURYSM REPAIR CORONARY STENT EA VESSEL 3-2008 x 2, drug eluting ILIAC SLEEPING BAG FILLER W/WO STENT PACEMAKER DUAL CHAMBER TIER 0 -2012 PAST SURGICAL HISTORY OF resection lobe of lung,,AAA Family History FAMILY HISTORY Problem Relation Age of Onset No Ocular Disease Mother other (TB) Mother Stroke Father No Ocular Disease Father Cancer Brother Kidney Disease Sister Patient Allergies ALLERGIES Allergen Reactions Banana Itching Dust Other: See Comments Grass Pollen Other: See Comments Mold Spores Other: See Comments Current Medications Current Outpatient Medications on File Prior to Visit Medication Sig aspirin 81 mg chewable tablet Chew 1 tablet by mouth once daily. atorvastatin (LIPITOR) 40 mg tablet Take 1 tablet by mouth daily at bedtime. pantoprazole DR (PROTONIX) 40 mg tablet Take 1 tablet by mouth DAILY (6 AM). apixaban (ELIQUIS) 2.5 mg tab(s) Take 1 tablet by mouth twice daily. furosemide (LASIX) 20 mg tablet TAKE 1 TABLET BY MOUTH DAILY AFTER BREAKFAST *FOR SWELLING Cholecalciferol, Vitamin D3, 50 mcg (2,000 unit) cap Take 1 capsule by mouth once daily. ezetimibe (ZETIA) 10 mg tablet Take 1 tablet by mouth once daily. Fenofibrate (LOFIBRA) 54 mg tablet Take 1 tablet by mouth once daily. nitroglycerin sublingual (NITROQUICK) 0.4 mg SL tablet Dissolve 1 tablet under the tongue every 5 minutes as needed. albuterol HFA (VENTOLIN HFA) 90 mcg/actuation inhaler Inhale 2 Puffs as instructed every 4 hours as needed for wheezing/shortness of breath. (Patient not taking: Reported on 12/12/2022) No current facility-administered medications on file prior to visit. Social History Social History Tobacco Use Smoking status: Every Day Types: Cigarettes Smokeless tobacco: Never Tobacco comments: PK EVERY 3 DAYS Vaping Use Vaping Use: Former Substances: Nicotine Devices: Disposable Substance Use Topics Alcohol use: No Drug use: No Review of Symptoms REVIEW OF SYSTEMS See HPI, otherwise negative EXAM: BP 128/80 (BP Site: Left Arm, BP Position: Sitting, BP Cuff Size: Regular Adult) Pulse 90 Resp 20 Wt 87.8 kg (193 lb 9.6 oz) SpO2 97% BMI 27.00 kg/m MINI-MENTAL STATE EXAMINATION (MMSE) Make the patient comfortable and establish rapport. Ask questions in the order listed. Total possible score is 30. ORIENTATION 1. What is the (year) (season) (date) (day) (month)? Max score=5 Patient's score=1 2. Where are we? (state) (county) (town or city) (hospital) (floor)? Max score=5 Patient's score=3 REGISTRATION Ask the patient if you may test his/her memory. Then say the names of 3 unrelated objects, clearly and slowly, about one second for each (eg, apple, table, renetta). After you have said all 3, ask him/her to repeat them. This first repetition determines the score(0-3), but keep saying them until he/she can repeat all 3, up to 6 trials. Max score=3 Patient's score=3 ATTENTION AND CALCULATION Ask the patient to begin with 100 and count backwards by 7. Stop after 5 subtractions (93, 86, 79, 72, 65). Score the total number of correct answers. If the patient cannot or will not perform the serial 7s task, ask him/her to spell the word WORLD backwards. The score is the number of letters in the correct order (eg, DLROW=5; DLRW=4; DLORW, DLW=3; OW=2; DRLWO=1). Max score=5 Patient's score=0 RECALL Ask the patient to recall the 3 items repeated above (eg, apple, table, renetta). Max score=3 Patient's score=1 and 3 LANGUAGE Naming: Show the patient a wristwatch and ask him/her what it is. Repeat for pencil. Max score=2 Patient's score=2 Repetition: Ask the patient to repeat the phrase No ifs, ands, or buts: after you. Max score=1 Patient's score=1 3-Stage Command: Give the patient a piece of blank paper and ask him/her to take a piece of paper in your right hand, fold it in half, put it on the floor. Score 1 point for each part correctly executed. Max score=3 Patient's score=3 Reading: On a blank piece of paper, print the sentence CLOSE YOUR EYES in letters large enough for the patient to see clearly. Ask him/her to read it and do what it says. Score 1 point only if he/she actually closes his/her eyes. Max score=1 Patient's score=1 Writing: Give the patient a blank piece of paper and ask him/her to write a sentence. Do not dictate a sentence; it is to be written spontaneously. It must contain a subject and verb and be sensible. Correct grammar and punctuation are not necessary. Max score=1 Patient's score=1 Copying: Ask the patient to copy the figure of intersecting pentagons exactly as it is. All 10 angles must be present and 2 must intersect to form a 4-sided figure to score 1 point. Tremor and rotation are ignored. Max score=1 Patient's score=0 MAXIMUM TOTAL SCORE = 30 TOTAL SCORE = 17/30 Results may be slightly skewed due to patient's recent hospitalization with not realizing date, day of the week because blended together in hospital. Was unable to copy picture due to inability to write well due to extremely shaky hands. Suggested guideline for determining the severity of cognitive impairment: Mild: MMSE>21 Moderate: MMSE 10-20 Severe: MMSE<9 Expected decline in MMSE scores in untreated mild to moderate Alzheimer's patient is 2 to 4 points per year. *Adapted from Folstein et al.1 and Mary Lou and Folstein2. (c) 1974, 1997 [employer] Used with permission. References: 1. Folstein MF, Folstein SE, Jeremy [place]. Mini-Mental State: a practical method for grading the cognitive state of patients for the clinician. J Psychiatr Res. 1975; 12:189-198. 2. JR Mary Lou, Leonardo MF, Mini-Mental State Examination (MMSE). Psychopharm Bull. 1988;24:689-692. 3. Judah JT, Yolie FJ, Lakshmi RD, Kash A, Jose Miguel F. Neuropsychological function in Alzheimer's disease: pattern of impairment and rates of progression. Arch Neurol. 1988;45:263-268. 4. Kirt JA, Phoebe B, Dewayne S-P, Vinnie PILLAI. Predictors of cognitive and functional progression in patients with probable Alzheimer's disease. Neurology. 1992;42:8784-8737. General Appearance: Well appearing, alert, in no acute distress, well-hydrated, well nourished.. Eyes: Anicteric sclera. Pupils are equally round and reactive to light. Extraocular movements are intact. . Lungs: Lungs clear to auscultation. No wheezing, rhonchi, rales.. Heart: RRR without murmur, gallop, or rubs. No ectopy. Neurologic: Gait normal. Reflexes normal and symmetric. Sensation grossly intact.. Psychiatric: pleasant, cooperative, forgetful, repetitive speech. Health Maintenance List COVID-19 VACCINE(7 - Moderna series) due on 05/11/2022 DTAP,TDAP,TD(1 - Tdap) due on 07/09/2023 INFLUENZA(1) due on 12/20/2022 LDL CHOLESTEROL due on 12/07/2023 DIABETES SCREEN due on 12/07/2025 SPIROMETRY Completed DEPRESSION ASSESSMENT Completed SHINGRIX VACCINE Completed PNEUMOCOCCAL: 65+ Completed HPV VACCINE Aged Out ADVANCE DIRECTIVE DISCUSSION Discontinued Data reviewed Previous records, office notes ASSESSMENT/PLAN: 1. Memory changes - ICD9: 780.93, ICD10: R41.3 (primary diagnosis) Scored poorly on MMSE, 17/30. Agree with family and previous provider assessments, patient likely needs assisted living situation. Social work will contact daughter for assistance on process of guardianship. - PRIMARY CARE SOCIAL WORK CONSULT 2. Age-related physical debility - ICD9: 797, ICD10: R54 Scored poorly on MMSE, 17/30. Agree with family and previous provider assessments, patient likely needs assisted living situation. Social work will contact daughter for assistance on process of guardianship. - PRIMARY CARE SOCIAL WORK CONSULT 3. Ischemic stroke (HCC) - ICD9: 434.91, ICD10: I63.9 Scored poorly on MMSE, 17/30. Agree with family and previous provider assessments, patient likely needs assisted living situation. Social work will contact daughter for assistance on process of guardianship. - PRIMARY CARE SOCIAL WORK CONSULT 4. Forgetfulness - ICD9: 780.99, ICD10: R68.89 Scored poorly on MMSE, 17/30. Agree with family and previous provider assessments, patient likely needs assisted living situation. Social work will contact daughter for assistance on process of guardianship. - PRIMARY CARE SOCIAL WORK CONSULT 5. DANIEL (generalized anxiety disorder) - ICD9: 300.02, ICD10: F41.1 Scored poorly on MMSE, 17/30. Agree with family and previous provider assessments, patient likely needs assisted living situation. Social work will contact daughter for assistance on process of guardianship. - PRIMARY CARE SOCIAL WORK CONSULT 6. Mental disability - ICD9: 319, ICD10: F79 Scored poorly on MMSE, 17/30. Agree with family and previous provider assessments, patient likely needs assisted living situation. Social work will contact daughter for assistance on process of guardianship. - PRIMARY CARE SOCIAL WORK CONSULT 7. Hypertriglyceridemia - ICD9: 272.1, ICD10: E78.1 - EZETIMIBE 10 MG TABLET Zoraida Hodge APRN.HEALTH INFORMATION SPECIALIST documented in this encounter [facility] 12-11-2022 Note Patient Outreach (AM [facility]) ---- THANH COLEMAN ([id number]) 1935 M Date Time Provider Department 12/11/22 FEMI OLIVERA During your visit today, we recorded the following information about you: Femi Olivera RN 12/11/2022 10:54 AM Signed TCM Home Visit Referral Source of Stratification: [facility] Admission Status: Discharged Readmission Risk Score: 14 ULI Score: 19 Patient meets program referral criteria: No Patient does not qualify for High Risk TCM Home Visit program due to: Discharged home, does not meet program criteria Femi Olivera RN December 11, 2022 10:40 AM TRANSITIONAL CARE MANAGEMENT (TCM) COMMUNITY MONITORING PROGRAM Provider Action/FYI: Initial TCM Outreach Navigation Please assist with scheduling TCM Hospital Discharge Follow up. TCM Eligible Until 12/24/22 Thank you Future Appts 12/12 [facility] 12/[address] [facility] 01[facility]14 [facility] Patient states is feeling better Slurred speech, left sided facial drooping better Denies chest pain/pressure,sob, cough ,wheezing, fever/chills, n/v Appetite good eating and hydrating Voiding and bm without difficulty Ambulating up ad chely Fatigue better Denies questions, concerns regarding medications, self care , no issues, stable Currently on Eliquis 2.5 Mg twice daily, as prescribed on an outpatient basis. He has also been placed on aspirin 81 mg daily, as well as Lipitor 40 Mg daily SUMMARY: Discharge Network Status: In-Network Discharge Pt discharged from [facility] on 12/10/22. Admitted for: CVA slurred speech It is thought that he had TIA versus small stroke. Contact made with patient: Yes Hi my name is Femi Olivera RN and I am calling from the [facility] on behalf of your PCP, Boo Marina, DO I understand you were recently in the hospital so I am calling to check in with you to ensure you are feeling well now that you're home. May I ask you a few questions related to your hospital stay and well-being? Yes Contact with patient post discharge, spoke to patient. Patient identified by name and . Do you feel your health is BETTER, WORSE, or the SAME since leaving the hospital? Better ACTION TAKEN: Patient indicated symptoms are better or same, no action required. Continue outreach. MEDICATIONS: Many patients have questions or concerns about their medications once they are home. Do you have any questions about taking your medications or which medication you should be on? No Do you need any medication refills at this time, including any of the medications you might take only when needed? No ACTION TAKEN: No action required For RNs or Pharmacy completing outreach ONLY, was a medication review completed? Yes SOCIAL: We would like to make sure you have what you need so that your basics needs are met - including your personal safety, food, housing and medications. Would you like to speak with a social work pilot steam yacht to help give you support for any of these needs? No It can be normal to feel anxious or down during a time like this. Would you like to talk to a mental health professional about how you have been feeling? No ACTION TAKEN: No action taken DISCHARGE INTRUCTIONS: Your discharge instructions / After Visit Summary (AVS) are important in guiding you through the recovery process. Do you have any questions related to your discharge instructions? No Do you have all the necessary equipment and supplies at home? Yes ACTION TAKEN: No action required I would like to help you schedule a hospital follow-up virtual or telephone visit with your PCP. This is a great way for you to connect with your provider to ensure you have safely transitioned home. If you are agreeable, I will send your request to a boat crew deck hand who will contact and assist you with that appointment. This will give you an opportunity to ask any questions or address any concerns you may have with your PCP. Inform the patient that if they have any questions or concerns prior to that appointment, to call their PCP's office right away. ACTION TAKEN: No action required, patient already has an appointment scheduled. Your doctor would like us to remind you of the recommendations regarding the coronavirus (Covid19) outbreak: Avoid public places as much as possible. Avoid close contact (within 6 feet) with others you don?t live with, especially if they are sick. Stay home if you are sick. Wash your hands regularly for at least 20 seconds with soap and water. Wear a cloth mask in public places to help reduce community spread. Do not go to your Doctor?s office unless instructed to do so. For any non-emergency symptoms, call your Doctor?s office to get instructions on how to manage (we might recommend a telephone or virtual visit). For emergency symptoms, proceed to Emergency Department as usual but (more content not included)... [facility] 12-11-2022 Note HNO ID: [id number] Author: Femi Olivera RN Service: ? Author Type: Registered Nurse Type: Progress Notes Filed: 12/11/2022 10:54 AM Note Text: TCM Home Visit Referral Source of Stratification: [facility] Admission Status: Discharged Readmission Risk Score: 14 ULI Score: 19 Patient meets program referral criteria: No Patient does not qualify for High Risk TCM Home Visit program due to: Discharged home, does not meet program criteria Femi Olivera RN December 11, 2022 10:40 AM TRANSITIONAL CARE MANAGEMENT (TCM) COMMUNITY MONITORING PROGRAM Provider Action/FYI: Initial TCM Outreach Navigation Please assist with scheduling TCM Hospital Discharge Follow up. TCM Eligible Until 12/24/22 Thank you Future Appts 12/12 [facility] 12/[address] [facility] 01/14 [facility] Patient states is feeling better Slurred speech, left sided facial drooping better Denies chest pain/pressure,sob, cough ,wheezing, fever/chills, n/v Appetite good eating and hydrating Voiding and bm without difficulty Ambulating up ad chely Fatigue better Denies questions, concerns regarding medications, self care , no issues, stable Currently on Eliquis 2.5 Mg twice daily, as prescribed on an outpatient basis. He has also been placed on aspirin 81 mg daily, as well as Lipitor 40 Mg daily SUMMARY: Discharge Network Status: In-Network Discharge Pt discharged from [facility] on 12/10/22. Admitted for: CVA slurred speech It is thought that he had TIA versus small stroke. Contact made with patient: Yes Hi my name is Femi Olivera RN and I am calling from the [facility] on behalf of your PCP, Boo Marina, DO I understand you were recently in the hospital so I am calling to check in with you to ensure you are feeling well now that you're home. May I ask you a few questions related to your hospital stay and well-being? Yes Contact with patient post discharge, spoke to patient. Patient identified by name and . Do you feel your health is BETTER, WORSE, or the SAME since leaving the hospital? Better ACTION TAKEN: Patient indicated symptoms are better or same, no action required. Continue outreach. MEDICATIONS: Many patients have questions or concerns about their medications once they are home. Do you have any questions about taking your medications or which medication you should be on? No Do you need any medication refills at this time, including any of the medications you might take only when needed? No ACTION TAKEN: No action required For RNs or Pharmacy completing outreach ONLY, was a medication review completed? Yes SOCIAL: We would like to make sure you have what you need so that your basics needs are met - including your personal safety, food, housing and medications. Would you like to speak with a social work pilot steam yacht to help give you support for any of these needs? No It can be normal to feel anxious or down during a time like this. Would you like to talk to a mental health professional about how you have been feeling? No ACTION TAKEN: No action taken DISCHARGE INTRUCTIONS: Your discharge instructions / After Visit Summary (AVS) are important in guiding you through the recovery process. Do you have any questions related to your discharge instructions? No Do you have all the necessary equipment and supplies at home? Yes ACTION TAKEN: No action required I would like to help you schedule a hospital follow-up virtual or telephone visit with your PCP. This is a great way for you to connect with your provider to ensure you have safely transitioned home. If you are agreeable, I will send your request to a boat crew deck hand who will contact and assist you with that appointment. This will give you an opportunity to ask any questions or address any concerns you may have with your PCP. Inform the patient that if they have any questions or concerns prior to that appointment, to call their PCP's office right away. ACTION TAKEN: No action required, patient already has an appointment scheduled. Your doctor would like us to remind you of the recommendations regarding the coronavirus (Covid19) outbreak: Avoid public places as much as possible. Avoid close contact (within 6 feet) with others you don?t live with, especially if they are sick. Stay home if you are sick. Wash your hands regularly for at least 20 seconds with soap and water. Wear a cloth mask in public places to help reduce community spread. Do not go to your Doctor?s office unless instructed to do so. For any non-emergency symptoms, call your Doctor?s office to get instructions on how to manage (we might recommend a telephone or virtual visit). For emergency symptoms, proceed to Emergency Department as usual but inform them of cough and fever symptoms YOUNG if present (or call on the way if possible). MERT Education Ordered -: No [facility] 12-11-2022 History of Present illness Narrative TCM Home Visit Referral Source of Stratification: [facility] Admission Status: Discharged Readmission Risk Score: 14 ULI Score: 19 Patient meets program referral criteria: No Patient does not qualify for High Risk TCM Home Visit program due to: Discharged home, does not meet program criteria Femi Olivera RN December 11, 2022 10:40 AM TRANSITIONAL CARE MANAGEMENT (TCM) COMMUNITY MONITORING PROGRAM Provider Action/FYI: Initial TCM Outreach Navigation Please assist with scheduling TCM Hospital Discharge Follow up. TCM Eligible Until 12/24/22 Thank you Future Appts 12/12 [facility] 12[facility] [facility] 01[facility] Patient states is feeling better Slurred speech, left sided facial drooping better Denies chest pain/pressure,sob, cough ,wheezing, fever/chills, n/v Appetite good eating and hydrating Voiding and bm without difficulty Ambulating up ad chely Fatigue better Denies questions, concerns regarding medications, self care , no issues, stable Currently on Eliquis 2.5 Mg twice daily, as prescribed on an outpatient basis. He has also been placed on aspirin 81 mg daily, as well as Lipitor 40 Mg daily SUMMARY: Discharge Network Status: In-Network Discharge Pt discharged from [facility] on 12/10/22. Admitted for: CVA slurred speech It is thought that he had TIA versus small stroke. Contact made with patient: Yes Hi my name is Femi Olivera RN and I am calling from the [facility] on behalf of your PCP, Boo Marina, DO I understand you were recently in the hospital so I am calling to check in with you to ensure you are feeling well now that you're home. May I ask you a few questions related to your hospital stay and well-being? Yes Contact with patient post discharge, spoke to patient. Patient identified by name and . Do you feel your health is BETTER, WORSE, or the SAME since leaving the hospital? Better ACTION TAKEN: Patient indicated symptoms are better or same, no action required. Continue outreach. MEDICATIONS: Many patients have questions or concerns about their medications once they are home. Do you have any questions about taking your medications or which medication you should be on? No Do you need any medication refills at this time, including any of the medications you might take only when needed? No ACTION TAKEN: No action required For RNs or Pharmacy completing outreach ONLY, was a medication review completed? Yes SOCIAL: We would like to make sure you have what you need so that your basics needs are met - including your personal safety, food, housing and medications. Would you like to speak with a social work pilot steam yacht to help give you support for any of these needs? No It can be normal to feel anxious or down during a time like this. Would you like to talk to a mental health professional about how you have been feeling? No ACTION TAKEN: No action taken DISCHARGE INTRUCTIONS: Your discharge instructions / After Visit Summary (AVS) are important in guiding you through the recovery process. Do you have any questions related to your discharge instructions? No Do you have all the necessary equipment and supplies at home? Yes ACTION TAKEN: No action required I would like to help you schedule a hospital follow-up virtual or telephone visit with your PCP. This is a great way for you to connect with your provider to ensure you have safely transitioned home. If you are agreeable, I will send your request to a boat crew deck hand who will contact and assist you with that appointment. This will give you an opportunity to ask any questions or address any concerns you may have with your PCP. Inform the patient that if they have any questions or concerns prior to that appointment, to call their PCP's office right away. ACTION TAKEN: No action required, patient already has an appointment scheduled. Your doctor would like us to remind you of the recommendations regarding the coronavirus (Covid19) outbreak: Avoid public places as much as possible. Avoid close contact (within 6 feet) with others you don t live with, especially if they are sick. Stay home if you are sick. Wash your hands regularly for at least 20 seconds with soap and water. Wear a cloth mask in public places to help reduce community spread. Do not go to your Doctor s office unless instructed to do so. For any non-emergency symptoms, call your Doctor s office to get instructions on how to manage (we might recommend a telephone or virtual visit). For emergency symptoms, proceed to Emergency Department as usual but inform them of cough and fever symptoms YOUNG if present (or call on the way if possible). MERT Education Ordered -: No documented in this encounter [facility] 12-09-2022 Note HNO ID: [id number] Author: Anil Red, PhD Service: Psychology Author Type: Psychologist Type: Progress Notes Filed: 12/09/2022 10:21 AM Note Text: Reason for referral: Confusion and agitation. I reviewed the patient's records and got a report from the nurse in charge of his care. I met with the patient. He was cooperative. He knew he was at [facility] and he knew also it was Friday and knew the month was November. He described to me his current residential arrangements. He also discussed with me his relationship with his 6 children. Reportedly he relies on a friend who lives [place] him. They help each other. His kids had not been showing any interest and do not get in touch with him. The patient discussed with me his work history. His memory was good. The patient did not show any signs of agitation, restlessness or tension. He did not exhibit any signs of confusion. Based on this interview, from a psychological and cognitive standpoint, there were no issues that required specific attention. [facility] 12-09-2022 Note HNO ID: [id number] Author: Rudy Bang MD Service: Hospital Medicine Author Type: Physician Type: Progress Notes Filed: 12/09/2022 6:23 PM Note Text: DEPARTMENT OF HOSPITAL MEDICINE PROGRESS NOTE SERVICE DATE: 12/09/2022 SERVICE TIME: 9:19 AM Hospital Medicine/Primary Attending: Rudy Bang MD Subjective INTERVAL HPI: Shortness of breath when seen at bedside today, the patient is sitting up in bed. He is in good spirits. He has no acute complaints at this time. Per high school social science teacher, her family is working on discharge plan for him, and he is a likely discharge tomorrow. MEDICATIONS: Reviewed Objective PHYSICAL EXAM: BP 144/71 Pulse 68 Temp (Src) 97.6 (Oral) Resp 16 Ht 5' 11 (1.80m) Wt 199 lb 14.4 oz (90.7kg) SpO2 95% BMI 27.89 kg/(m2). O2 Therapy: Room Air Physical Exam Performed General: Laying in bed, in no distress HEENT: Head atraumatic, PERRLA, no icterus Cardiovascular: S1-S2 normal, no murmurs Chest: Bilateral air entry equal, chest clear bilaterally , no crackles distinguished Abdomen: soft, non tender Neuro: Aox3, moving all 4 extremities well Extremities: no edema Lines, Drains, and Airways Line Duration Peripheral 12/09/22 0542 Short Left Forearm 22 Gauge <1 day DATA: Diagnostic tests reviewed for today's visit: Most recent labs and imaging results. Assessment/Plan Concern for CVA/TIA Hypertension Atrial fibrillation on Eliquis CKD stage III COPD History of CHF, not in exacerbation History of descending AAA. DVT prophylaxis- CODE STATUS-listed as full code. This is an 87-year-old male, currently on day 4 of admission. The patient was admitted with a chief complaint as follows: Left-sided facial droop, slurred speech. PMH is as follows: HTN, CKD stage III, COPD, CHF, CAD, A-fib on Eliquis, descending AAA. He was transferred as an admission from [facility] in hospital, where he went with a chief complaint of left-sided facial droop and slurred speech. In the ER, initial NIH was at 3. Teleneurology evaluated the patient and felt that the patient needed to be transferred to higher level of care for further neurological work-up. Therefore he was transferred to [facility]. CT brain showed no acute abnormalities. CTA head and neck showed mild irregular narrowing at right M1 segment of MCA. There was also hard plaque present at the carotid bulb and origin of the ICA bilaterally. 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 The patient was given aspirin 3 deformity as well as 75 mg of Plavix. Per neurology, the patient is unable to get MRI, due to iliac stents. However, it is felt that this is unlikely to private branch exchange service advisor. It is thought that he had TIA versus small stroke. Currently on Eliquis 2.5 Mg twice daily, as prescribed on an outpatient basis. Vascular surgery on consult. Progress neurosurgery, I will see him as a vascular surgical candidate and would recommend compliance with his medical therapy be happy to see the patient in follow-up to review films and long-term surveillance however I think medical therapy long-term is good to be the best option for the patient . Patient has been evaluated by PT, and recommended home PT. Over the last 24 hours, noted no acute findings. -Unable to obtain MRI. Per neuro, it is not likely to contribute to management anyway. Results of echocardiogram pending. - Continue with aspirin, Lipitor. - Continue with 2.5 mg Eliquis twice daily, for stroke prophylaxis for A-fib. - Per high school social science teacher, likely discharge home tomorrow after discussion with family. Disposition: Likely discharge home tomorrow. Results of echocardiogram pending. Medication and Non-Pharmacologic VTE Prophylaxis/Anticoagulants Anticoagulant AND Antiplatelet Medications (From admission, onward) Start Dose Route Frequency Last Action Ordered Stop 12/06/22 1500 apixaban 2.5 mg tab(s) (ELIQUIS) (apixaban tab(s) (ELIQUIS)) 2.5 mg ORAL 2 TIMES DAILY Given, 12/09 0847 12/06/22 1450 -- 12/06/22 0900 aspirin 81 mg chewable tab(s) (aspirin non-enteric coated 81mg ORAL OR 300mg [place]) See Hyperspace for full Linked Orders Report. 81 mg PO/FT DAILY Given, 12/09 0847 12/06/22 0305 -- 12/06/22 0315 activity - mobilize patient (sc,or) Plan of care discussed with: SIGNATURE: Rudy Bang MD PATIENT NAME: Thanh Coleman DATE: December 09, 2022 TIME: 9:19 AM etx [id number] [facility] 12-08-2022 Note HNO ID: [id number] Author: Dennis Navarrete MD Service: General Internal Medicine Author Type: Physician Type: Progress Notes Filed: 12/08/2022 11:53 AM Note Text: INTERNAL MEDICINE progress note SERVICE DATE: 12/08/2022 SERVICE TIME: 0 845 PRIMARY CARE PHYSICIAN: Boo Marina DO Subjective HISTORY OF PRESENT ILLNESS: Mr. Coleman is a 87 year old male who presents for no new complaints overnight. PAST MEDICAL HISTORY Diagnosis Date Anticoagulant long-term use Aortic aneurysm ([facility]) s/p repair AAA Atrial flutter ([facility]) 03/03/2020 CAD (coronary artery disease) pacemaker, hyperlipidemia, hyperlipidemia Chronic combined systolic and diastolic congestive heart failure (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) 12/2015 COPD (chronic obstructive pulmonary disease) (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) 07/02/2021 Hypertriglyceridemia Low HDL (under 40) Neuropathy Palpitations 12/23/2019 Permanent atrial fibrillation ([facility]) 08/10/2015 Presence of cardiac pacemaker 08/10/2015 Presence of drug coated stent in left circumflex coronary artery 08/10/2015 Sick sinus syndrome (HCC) 08/10/2015 Stage 3b chronic kidney disease (HCC) 12/21/2015 TB (pulmonary tuberculosis) Thrombocytopenia ([facility]) PAST SURGICAL HISTORY Procedure Laterality Date ABD AORTIC ANEURYSM REPAIR CORONARY STENT EA VESSEL x 2, drug eluting ILIAC SLEEPING BAG FILLER W/WO STENT PACEMAKER DUAL CHAMBER TIER 0 -2012 PAST SURGICAL HISTORY OF resection lobe of lung,,AAA FAMILY HISTORY Problem Relation Age of Onset No Ocular Disease Mother other (TB) Mother Stroke Father No Ocular Disease Father Cancer Brother Kidney Disease Sister Social History Tobacco Use Smoking status: Every Day Types: Cigarettes Smokeless tobacco: Never Tobacco comments: PK EVERY 3 DAYS Vaping Use Vaping Use: Former Substances: Nicotine Devices: Disposable Substance Use Topics Alcohol use: No Drug use: No furosemide (LASIX) 20 mg tablet, TAKE 1 TABLET BY MOUTH DAILY AFTER BREAKFAST *FOR SWELLING, Disp: 30 tablet, Rfl: 2 ezetimibe (ZETIA) 10 mg tablet, Take 1 tablet by mouth once daily., Disp: 90 tablet, Rfl: 3 atorvastatin (LIPITOR) 40 mg tablet, Take 1 tablet by mouth once daily., Disp: 90 tablet, Rfl: 3 metoprolol tartrate, short acting, (LOPRESSOR) 100 mg tablet, Take 1 tablet by mouth twice daily., Disp: 180 tablet, Rfl: 3 potassium chloride (KLOR-CON 10) 10 mEq tablet, Take 1 tablet by mouth once daily., Disp: 30 tablet, Rfl: 11 Fenofibrate (LOFIBRA) 54 mg tablet, Take 1 tablet by mouth once daily., Disp: 90 tablet, Rfl: 3 apixaban (ELIQUIS) 2.5 mg tab(s), Take 1 tablet by mouth twice daily., Disp: 180 tablet, Rfl: 3 Cholecalciferol, Vitamin D3, 50 mcg (2,000 unit) cap, Take 1 capsule by mouth once daily., Disp: 30 capsule, Rfl: 3 nitroglycerin sublingual (NITROQUICK) 0.4 mg SL tablet, Dissolve 1 tablet under the tongue every 5 minutes as needed., Disp: 1 Bottle of 25, Rfl: 4 albuterol HFA (VENTOLIN HFA) 90 mcg/actuation inhaler, Inhale 2 Puffs as instructed every 4 hours as needed for wheezing/shortness of breath., Disp: 18 g, Rfl: 2 aspirin, enteric coated (ASPIRIN, ENTERIC COATED) 81 mg EC tablet, Take 81 mg by mouth once daily., Disp: , Rfl: Current Facility-Administered Medications Medication Dose Route Frequency NaCl 0.9% iv flush bag 20 mL INTRAVENOUS PRN aspirin 81 mg chewable tab(s) 81 mg ORAL/FEEDING TUBE DAILY pantoprazole DR 40 mg tab(s) (PROTONIX) 40 mg ORAL DAILY (6 AM) ondansetron (PF) 4 mg injection (ZOFRAN) 4 mg INTRAVENOUS q 6 H PRN nicotine 14 mg/24 hr 1 Patch (NICODERM) 1 Patch TRANSDERMAL DAILY And nicotine -- REMOVE patch OTHER DAILY And nicotine - verify patch OTHER q 8 H sodium chloride 0.9 % (flush) 2-10 mL (BD POSIFLUSH) 2-10 mL INTRAVENOUS DIRECTED PRN And perflutren lipid microspheres 1.1 mg/mL 1.3 mL injection (DEFINITY) 1.3 mL INTRAVENOUS DIRECTED PRN apixaban 2.5 mg tab(s) (ELIQUIS) 2.5 mg ORAL BID ezetimibe 10 mg tab(s) (ZETIA) 10 mg ORAL DAILY atorvastatin 40 mg tab(s) (LIPITOR) 40 mg ORAL AT BEDTIME ALLERGIES Allergen Reactions Dust Other: See Comments Grass Pollen Other: See Comments Mold Spores Other: See Comments Objective PHYSICAL EXAM: Patient Vitals for the past 24 hrs: BP Temp Temp src Pulse Resp SpO2 Weight 12/08/22 1142 150/72 36.4 ?C (97.6 ?F) Oral 89 16 96 (more content not included)... [facility] 12-07-2022 Note HNO ID: [id number] Author: Dennis Navarrete MD Service: General Internal Medicine Author Type: Physician Type: Progress Notes Filed: 12/07/2022 10:30 AM Note Text: INTERNAL MEDICINE progress SERVICE DATE: 12/07/2022 SERVICE TIME: 729 PRIMARY CARE PHYSICIAN: Boo Marina DO Subjective HISTORY OF PRESENT ILLNESS: no new complaints overnight. Denies pain or shortness of breath. Transthoracic echocardiogram pending PAST MEDICAL HISTORY Diagnosis Date Anticoagulant long-term use Aortic aneurysm (HCC) s/p repair AAA Atrial flutter (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) 12/2015 COPD (chronic obstructive pulmonary disease) (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 (HCC) 07/02/2021 Hypertriglyceridemia Low HDL (under 40) Neuropathy Palpitations 12/23/2019 Permanent atrial fibrillation (HCC) 08/10/2015 Presence of cardiac pacemaker 08/10/2015 Presence of drug coated stent in left circumflex coronary artery 08/10/2015 Sick sinus syndrome (HCC) 08/10/2015 Stage 3b chronic kidney disease (HCC) 12/21/2015 TB (pulmonary tuberculosis) Thrombocytopenia (HCC) PAST SURGICAL HISTORY Procedure Laterality Date ABD AORTIC ANEURYSM REPAIR CORONARY STENT EA VESSEL 3-2008 x 2, drug eluting ILIAC SLEEPING BAG FILLER W/WO STENT PACEMAKER DUAL CHAMBER TIER 0 -2012 PAST SURGICAL HISTORY OF resection lobe of lung,,AAA FAMILY HISTORY Problem Relation Age of Onset No Ocular Disease Mother other (TB) Mother Stroke Father No Ocular Disease Father Cancer Brother Kidney Disease Sister Social History Tobacco Use Smoking status: Every Day Types: Cigarettes Smokeless tobacco: Never Tobacco comments: PK EVERY 3 DAYS Vaping Use Vaping Use: Former Substances: Nicotine Devices: Disposable Substance Use Topics Alcohol use: No Drug use: No furosemide (LASIX) 20 mg tablet, TAKE 1 TABLET BY MOUTH DAILY AFTER BREAKFAST *FOR SWELLING, Disp: 30 tablet, Rfl: 2 ezetimibe (ZETIA) 10 mg tablet, Take 1 tablet by mouth once daily., Disp: 90 tablet, Rfl: 3 atorvastatin (LIPITOR) 40 mg tablet, Take 1 tablet by mouth once daily., Disp: 90 tablet, Rfl: 3 metoprolol tartrate, short acting, (LOPRESSOR) 100 mg tablet, Take 1 tablet by mouth twice daily., Disp: 180 tablet, Rfl: 3 potassium chloride (KLOR-CON 10) 10 mEq tablet, Take 1 tablet by mouth once daily., Disp: 30 tablet, Rfl: 11 Fenofibrate (LOFIBRA) 54 mg tablet, Take 1 tablet by mouth once daily., Disp: 90 tablet, Rfl: 3 apixaban (ELIQUIS) 2.5 mg tab(s), Take 1 tablet by mouth twice daily., Disp: 180 tablet, Rfl: 3 Cholecalciferol, Vitamin D3, 50 mcg (2,000 unit) cap, Take 1 capsule by mouth once daily., Disp: 30 capsule, Rfl: 3 nitroglycerin sublingual (NITROQUICK) 0.4 mg SL tablet, Dissolve 1 tablet under the tongue every 5 minutes as needed., Disp: 1 Bottle of 25, Rfl: 4 albuterol HFA (VENTOLIN HFA) 90 mcg/actuation inhaler, Inhale 2 Puffs as instructed every 4 hours as needed for wheezing/shortness of breath., Disp: 18 g, Rfl: 2 aspirin, enteric coated (ASPIRIN, ENTERIC COATED) 81 mg EC tablet, Take 81 mg by mouth once daily., Disp: , Rfl: Current Facility-Administered Medications Medication Dose Route Frequency NaCl 0.9% iv flush bag 20 mL INTRAVENOUS PRN aspirin 81 mg chewable tab(s) 81 mg ORAL/FEEDING TUBE DAILY pantoprazole DR 40 mg tab(s) (PROTONIX) 40 mg ORAL DAILY (6 AM) ondansetron (PF) 4 mg injection (ZOFRAN) 4 mg INTRAVENOUS q 6 H PRN nicotine 14 mg/24 hr 1 Patch (NICODERM) 1 Patch TRANSDERMAL DAILY And nicotine -- REMOVE patch OTHER DAILY And nicotine - verify patch OTHER q 8 H sodium chloride 0.9 % (flush) 2-10 mL (BD POSIFLUSH) 2-10 mL INTRAVENOUS DIRECTED PRN And perflutren lipid microspheres 1.1 mg/mL 1.3 mL injection (DEFINITY) 1.3 mL INTRAVENOUS DIRECTED PRN apixaban 2.5 mg tab(s) (ELIQUIS) 2.5 mg ORAL BID ezetimibe 10 mg tab(s) (ZETIA) 10 mg ORAL DAILY atorvastatin 40 mg tab(s) (LIPITOR) 40 mg ORAL AT BEDTIME ALLERGIES Allergen Reactions Dust Other: See Comments Grass Pollen Other: See Comments Mold Spores Other: See Comments Objective PHYSICAL EXAM: Patient Vitals for the past 24 hrs: BP Temp Temp src Pulse Resp SpO2 Weight 12/07/22 0658 139/73 36.6 ?C (97.9 (more content not included)... [facility] 12-06-2022 Note HNO ID: [id number] Author: Sydni Magallon RN Service: Care Management Author Type: Registered Nurse Type: Allied Health Filed: 12/06/2022 12:22 PM Note Text: ANCILLARY HOME HEALTH LIAISON PROGRESS NOTE SERVICE DATE: 12/06/2022 SERVICE TIME: 1219 Patient is active with [facility] out of [place]. They are not in [employer] so any paperwork needs to be faxed to [phone]. Lucinda Araujo is the RN Clinical Fisheries Diver and can be reached at [phone]. Will follow and update [facility] with d/c plans. SIGNATURE: Sydni Magallon RN PATIENT NAME: Thanh Coleman DATE: December 06, 2022 TIME: 12:19 PM PAGER/CONTACT #: [phone] [facility] 12-05-2022 Miscellaneous Notes Noted. Thank you for update. Ekta Mandujano APRN.HEALTH INFORMATION SPECIALIST Lucinda SPRAGUEmarine photographer with [facility] calls to let provider know that today when home health aide showed up to home patient was disoriented with slurred speech. 911 was contacted and patient was transported to [facility] where he is currently at for evaluation. Vivienne Villarreal RN documented in this encounter [facility] 12-03-2022 Miscellaneous Notes Patient has been identified by name and date of : Yes, Vivienne Villarreal RN Date 12/03/2022 Time 4:50 pm Patient phones for refill(s): Requested Prescriptions Pending Prescriptions Disp Refills sertraline (ZOLOFT) 50 mg tablet 90 tablet 1 Sig: Take 1 tablet by mouth daily with dinner. Date of last office visit with pcp: 10/08/2022 Future appt: 01/14/2023 Last 2 Encounter Wt Readings: Date: Wt: 10/08/2022 89.8 kg (198 lb) 07/08/2022 94.2 kg (207 lb 9.6 oz) Previous labs/tests for medication: Blood Pressure: BUN (mg/dL) Date Value 10/18/2022 43 12/29/2020 31 Sodium (mmol/L) Date Value 10/18/2022 143 12/29/2020 143 Last 1 Encounter BP Readings: Date: BP: 10/08/2022 85/49 Liver Function: ALT (U/L) Date Value 10/08/2022 13 12/29/2020 30 AST (U/L) Date Value 10/08/2022 15 12/29/2020 29 Please advise. Thank you. Vivienne Villarreal RN documented in this encounter [facility] 10-21-2022 Miscellaneous Notes Pt. informed. Please let him know that his kidney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) 07/02/2021 Hypertriglyceridemia Low HDL (under 40) Neuropathy Palpitations 12/23/2019 Permanent atrial fibrillation ([facility]) 08/10/2015 Presence of cardiac pacemaker 08/10/2015 Presence of drug coated stent in left circumflex coronary artery 08/10/2015 Sick sinus syndrome ([facility]) 08/10/2015 Stage 3b chronic kidney disease ([facility]) 12/21/2015 TB (pulmonary tuberculosis) Thrombocytopenia ([facility]) Previous Surgical History PAST SURGICAL HISTORY Procedure Laterality Date ABD AORTIC ANEURYSM REPAIR CORONARY STENT EA VESSEL 3-2008 x 2, drug eluting ILIAC SLEEPING BAG FILLER W/WO STENT PACEMAKER DUAL CHAMBER TIER 0 4-2012 PAST SURGICAL HISTORY OF resection lobe of lung,,AAA Family History FAMILY HISTORY Problem Relation Age of Onset No Ocular Disease Mother other (TB) Mother Stroke Father No Ocular Disease Father Cancer Brother Kidney Disease Sister Patient Allergies ALLERGIES Allergen Reactions Dust Other: See Comments Grass Pollen Other: See Comments Mold Spores Other: See Comments Current Medications Current Outpatient Medications on File Prior to Visit Medication Sig Fenofibrate (LOFIBRA) 54 mg tablet Take 1 tablet by mouth once daily. furosemide (LASIX) 20 mg tablet TAKE 1 TABLET BY MOUTH DAILY AFTER BREAKFAST *FOR SWELLING lisinopril (ZESTRIL, PRINIVIL) 20 mg tablet Take 1 tablet by mouth once daily. erythromycin (ROMYCIN) 5 mg/gram (0.5 %) ophthalmic ointment In both eyes and on incisions four times a day X 1 wk then twice a day x 1 wk ezetimibe (ZETIA) 10 mg tablet Take 1 tablet by mouth once daily. erythromycin (ROMYCIN) 5 mg/gram (0.5 %) ophthalmic ointment Apply 1/2 inch ribbon per application to incision and in eye four times a day X 1 wk then twice a day x 1 wk ketoconazole (NIZORAL) 2 % cream Apply to affected area twice daily. To the ear for rash ketoconazole (NIZORAL) 2 % shampoo Apply to affected (more content not included)... [facility] 07-08-2022 History of Present illness Narrative Chief Complaint Patient presents with: 3 month f/up HPI Thanh Coleman is a 86 year old male who presents here today for Above Complaints.. Thanh is an established patient of Dr. Salas DO. He is a new patient to me today. Concerns today.... HTN -- Metorpolol 100 mg BID and lisinopril 20 mg daily. He states compliant with current blood pressure medication(s). He does check BP at home, normally on Tuesdays and Fridays. Average home readings: 120s/60s. He denies chest pain, shortness of breath, palpitations, dizziness, leg edema, headaches, or vision changes. Last 14 Encounter BP Readings: Date: BP: 07/08/2022 120/68 04/08/2022 110/70 02/27/2022 156/89 02/20/2022 141/74 01/07/2022 100/60 10/08/2021 90/60 09/28/2021 102/68 07/04/2021 100/60 06/21/2021 122/76 06/15/2021 124/60 04/23/2021 114/60 12/29/2020 90/60 10/30/2020 110/60 10/19/2020 100/66 Mood--- Zoloft 50 mg daily. Stable and well controlled on this regimen. ADLs-- Lives alone in his apartment. Has cleaning company clean apartment once per week. Uses [facility] for medicaiton management. No recent falls. Hygiene and cooking is done independently on his own. Reports minimal support system as he is not in contact with his children much anymore even thought they live nearby. HLD -- Lipitor 40 mg daily, zetia 10 mg daily, and fenofibrate 54 mg daily. Stable. No symptoms. Willing to recheck with blood work. Hx of Afib -- Well controlled, on eliquis routinely. 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 Past medical history, appointments, medications, allergies reviewed. Previous Medical History PAST MEDICAL HISTORY Diagnosis Date Abnormal cholesterol test Anticoagulant long-term use Aortic aneurysm (HCC) s/p repair AAA Arteriosclerosis of coronary artery 12/23/2019 pacemaker, hyperlipidemia, hyperlipidemia At risk for stroke Atrial flutter ([facility]) 03/03/2020 CAD (coronary artery disease) pacemaker, hyperlipidemia, hyperlipidemia Chronic combined systolic and diastolic congestive heart failure (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) 12/2015 COPD (chronic obstructive pulmonary disease) (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) 07/02/2021 Hypertriglyceridemia Low HDL (under 40) Neuropathy Palpitations 12/23/2019 Permanent atrial fibrillation ([facility]) 08/10/2015 Presence of cardiac pacemaker 08/10/2015 Presence of drug coated stent in left circumflex coronary artery 08/10/2015 Sick sinus syndrome ([facility]) 08/10/2015 Stage 3b chronic kidney disease ([facility]) 12/21/2015 TB (pulmonary tuberculosis) Thrombocytopenia ([facility]) Previous Surgical History PAST SURGICAL HISTORY Procedure Laterality Date ABD AORTIC ANEURYSM REPAIR CORONARY STENT EA VESSEL 3-2009 x 2, drug eluting ILIAC SLEEPING BAG FILLER W/WO STENT PACEMAKER DUAL CHAMBER TIER 0 4-2012 PAST SURGICAL HISTORY OF resection lobe of lung,,AAA Family History FAMILY HISTORY Problem Relation Age of Onset No Ocular Disease Mother other (TB) Mother Stroke Father No Ocular Disease Father Cancer Brother Kidney Disease Sister Patient Allergies ALLERGIES Allergen Reactions Dust Other: See Comments Grass Pollen Other: See Comments Mold Spores Other: See Comments Current Medications Current Outpatient Medications on File Prior to Visit Medication Sig Fenofibrate (LOFIBRA) 54 mg tablet Take 1 tablet by mouth once daily. furosemide (LASIX) 20 mg tablet TAKE 1 TABLET BY MOUTH DAILY AFTER BREAKFAST *FOR SWELLING lisinopril (ZESTRIL, PRINIVIL) 20 mg tablet Take 1 tablet by mouth once daily. erythromycin (ROMYCIN) 5 mg/gram (0.5 %) ophthalmic ointment In both eyes and on incisions four times a day X 1 wk then twice a day x 1 wk ezetimibe (ZETIA) 10 mg tablet Take 1 tablet by mouth once daily. erythromycin (ROMYCIN) 5 mg/gram (0.5 %) ophthalmic ointment Apply 1/2 inch ribbon per application to incision and in eye four times a day X 1 wk then twice a day x 1 wk ketoconazole (NIZORAL) 2 % cream Apply to affected area twice daily. To the ear for rash ketoconazole (NIZORAL) 2 % shampoo Apply to affected area once daily as needed for itching/rash. atorvastatin (LIPITOR) 40 mg tablet Take 1 tablet by mouth once daily. metoprolol tartrate, short acting, (LOPRESSOR) 100 mg tablet Take 1 tablet by mouth twice daily. potassium chloride (KLOR-CON 10) 10 mEq tablet Take 1 tablet by mouth once daily. sertraline (ZOLOFT) 50 mg tablet Take 1 tablet by mouth daily with dinner. triamcinolone (KENALOG) 0.1 % lotion Apply to affected area three times daily. kzkbhvfq-vxvxrdvyd-tnxiztztsl (NEOMYCIN) 1.75 mg-10,000 unit-0.025mg/mL drop Apply 3 drops to each ear twice daily. luhqjzbo-zyvzwsqxm-ghqfwoamhsxrer (CORTISPORIN) 3.5-10,000-1 mg/mL-unit/mL-% otic suspension Use 4 Drops in the ears four times daily. warfarin (COUMADIN) 4 mg tablet Take 1 tablet by mouth once daily. ELIQUIS 2.5 mg tab(s) TAKE 1 TABLET BY MOUTH TWICE A DAY nitroglycerin sublingual (NITROQUICK) 0.4 mg SL tablet Dissolve 1 tablet under the tongue every 5 minutes as needed. albuterol HFA (VENTOLIN HFA) 90 mcg/actuation inhaler Inhale 2 Puffs as instructed every 4 hours as needed for wheezing/shortness of breath. fluticasone (FLONASE) 50 mcg/actuation nasal spray Use 1 [place] in each nostril daily at bedtime. aspirin, enteric coated (ASPIRIN, ENTERIC COATED) 81 mg EC tablet Take 81 mg by mouth once daily. senna (SENOKOT) 8.6 mg tab Take 8.6 mg by mouth once daily as needed. Magnesium 250 mg tab Take 250 mg by mouth once daily. No current facility-administered medications on file prior to visit. Social History Social History Tobacco Use Smoking status: Every Day Types: Cigarettes Smokeless tobacco: Never Tobacco comments: PK EVERY 3 DAYS Vaping Use Vaping Use: Former Substances: Nicotine Devices: Disposable Substance Use Topics Alcohol use: No Drug use: No REVIEW OF SYSTEMS: as above Reviewed relevant PMHx, PSHx, Social Hx, current medications and allergies. Review of Symptoms REVIEW OF SYSTEMS See HPI. All other systems are negative. EXAM: BP 120/68 (BP Site: Left Arm, BP Position: Sitting, BP Cuff Size: Large Adult) Pulse 80 Resp 14 Wt 94.2 kg (207 lb 9.6 oz) BMI 29.79 kg/m General Appearance: Well appearing, alert, in no acute distress, well-hydrated, well nourished.. Skin: Skin color, texture, turgor normal, no suspicious rashes or lesions. Head: Normocephalic, no masses, lesions, tenderness or abnormalities. Lungs: Lungs clear to auscultation. No wheezing, rhonchi, rales.. Heart: RRR without murmur, gallop, or rubs. No ectopy. Abdomen: Normal abdominal exam, Abdomen soft, non-tender. Bowel sounds normal. No masses, organomegaly. Neurologic: Gait normal. Reflexes normal and symmetric. Sensation grossly intact.. Health Maintenance List DTAP,TDAP,TD(1 - Tdap) Never done DEPRESSION ASSESSMENT Never done LDL CHOLESTEROL due on 07/04/2022 DIABETES SCREEN due on 01/07/2025 SPIROMETRY Completed INFLUENZA Completed SHINGRIX VACCINE Completed COVID-19 VACCINE Completed PNEUMOCOCCAL: 65+ Completed ADVANCE DIRECTIVE DISCUSSION Discontinued ASSESSMENT/PLAN: 1. Essential hypertension - ICD9: 401.9, ICD10: I10 (primary diagnosis) - good control - Continue current medication(s) - Encouraged dietary sodium restriction/DASH diet - Recommended regular aerobic exercise. - Recommend home blood pressure monitoring, to bring results in on next visit - Discussed need and benefit for weight loss. - Goal of BP <130/80 - Recommend home or pharmacy blood pressure monitoring - Recommended no refined sugar, low refined starch, healthy oil intake (olive oil), healthy protein (fish) along the lines of the Mediterranean diet. - COMP METABOLIC PANEL - CBC + DIFF 2. COPD (chronic obstructive pulmonary disease) with chronic bronchitis (HCC) - ICD9: 491.20, ICD10: J44.9 Stable. Well controlled. 3. Hypertriglyceridemia - ICD9: 272.1, ICD10: E78.1 - to be determined upon return of lab results - Continue current medication. - Encouraged following a low fat, low cholesterol diet. - Discussed the benefits of regular aerobic exercise and weight loss. - Check fasting lipid panel and ALT. - Encouraged following a low carbohydrate, healthy oil intake diet. - Continue current therapy. - HGB A1C - LIPID PANEL BASIC - EZETIMIBE 10 MG TABLET 4. Vitamin D deficiency - ICD9: 268.9, ICD10: E55.9 - VITAMIN D 25 HYDROXY 5. Dyslipidemia - ICD9: 272.4, ICD10: E78.5 - to be determined upon return of lab results - Continue current medication. - Encouraged following a low fat, low cholesterol diet. - Discussed the benefits of regular aerobic exercise and weight loss. - Check fasting lipid panel and ALT. - Encouraged following a low carbohydrate, healthy oil intake diet. - Continue current therapy. - HGB A1C - LIPID PANEL BASIC - ATORVASTATIN 40 MG TABLET 6. Atrial fibrillation, persistent (HCC) - ICD9: 427.31, ICD10: I48.19 Stable. Well controlled. - LISINOPRIL 20 MG TABLET - METOPROLOL TARTRATE 100 MG TABLET 7. Screening for prostate cancer - ICD9: V76.44, ICD10: Z12.5 - PSA/PROSTSPECAG SCRN 8. DANIEL (generalized anxiety disorder) - ICD9: 300.02, ICD10: F41.1 Stable. Well controlled on current regimen. - SERTRALINE 50 MG TABLET RTO in 3 months, sooner if needed. Prescription instructions reviewed with patient as applicable. Potential red flag symptoms discussed with the patient. Reviewed appropriate action plan to take if red flag symptoms occur. Patient agreeable to treatment plan. Ekta Schmidt APRN.HEALTH INFORMATION SPECIALIST [address] [place] [address] documented in this encounter [facility] [place] 07-03-2022 Miscellaneous Notes Agree with below. Ekta Mandujano APRN.MADY Jocelyn with [facility] calls to let provider know that on Friday06/30/2022 patient had a fall. Patient was lying down, woke up, went to get up and his legs gave out, falling to the ground landing on knees then buttocks. Patient reports knee was hurting prior to falling. Jocelyn reports knee is slightly swollen, warm to touch, and patient is having difficulty standing and walking. Patient is able to walk around his apartment but not longer distances outside per his normal. Patient is using a heating pad, tylenol, and an analgesic pain rub with some relief. Patient reports he is slowly getting better. Jocelyn was with patient. Had her offer an appointment for evaluation and possible x-ray but patient declines at this time. Vivienne Villarreal RN documented in this encounter [facility] [place] 05-22-2022 Miscellaneous Notes Patient has been identified by name and date of : Yes Pharmacy phones for refill(s): Requested Prescriptions Pending Prescriptions Disp Refills Fenofibrate (LOFIBRA) 54 mg tablet 90 tablet 3 Sig: Take 1 tablet by mouth once daily. furosemide (LASIX) 20 mg tablet 30 tablet 2 Sig: TAKE 1 TABLET BY MOUTH DAILY AFTER BREAKFAST *FOR SWELLING Date of last office visit in primary care: 04/08/22 Last 2 Encounter Wt Readings: Date: Wt: 04/08/2022 96.8 kg (213 lb 6.4 oz) 02/20/2022 96.2 kg (212 lb) Previous labs/tests for medication: Blood Pressure: BUN (mg/dL) Date Value 01/07/2022 29 12/29/2020 31 Sodium (mmol/L) Date Value 01/07/2022 142 12/29/2020 143 Last 1 Encounter BP Readings: Date: BP: 04/08/2022 110/70 Blood Counts: WBC (k/uL) Date Value 01/07/2022 7.24 12/29/2020 8.91 RBC (m/uL) Date Value 01/07/2022 4.98 12/29/2020 5.68 Hematocrit (%) Date Value 01/07/2022 48.5 12/29/2020 54.5 Hemoglobin (g/dL) Date Value 01/07/2022 15.6 12/29/2020 17.7 Platelet Count (k/uL) Date Value 01/07/2022 135 12/29/2020 132 Liver Function: ALT (U/L) Date Value 01/07/2022 21 12/29/2020 30 AST (U/L) Date Value 01/07/2022 25 12/29/2020 29 Potassium: No components found for: POT Please advise. Thank you. Pam Goff RN documented in this encounter [facility] [place] 04-24-2022 Miscellaneous Notes Patient has been identified by name and date of : Pharmacy phones for refill(s): Requested Prescriptions Pending Prescriptions Disp Refills lisinopril (ZESTRIL, PRINIVIL) 20 mg tablet 28 tablet 3 Sig: Take 1 tablet by mouth once daily. Date of last office visit in primary care: 04/08/2022, has appt 07/08/2022 Last 2 Encounter Wt Readings: Date: Wt: 04/08/2022 96.8 kg (213 lb 6.4 oz) 02/20/2022 96.2 kg (212 lb) Previous labs/tests for medication: Blood Pressure: BUN (mg/dL) Date Value 01/07/2022 29 12/29/2020 31 Sodium (mmol/L) Date Value 01/07/2022 142 12/29/2020 143 Last 1 Encounter BP Readings: Date: BP: 04/08/2022 110/70 Please advise. Thank you. Pat Miranda LPN documented in this encounter [facility] [place] 04-24-2022 Hospital Discharge instructions Patient Education 04/24/2022 08:45:43 3-- EP Study/Ablation (01/2018) (CUSTOM) ELECTROPHYSIOLOGY STUDY/ABLATION Discharge Instructions DIET INSTRUCTIONS Resume diet as prior to procedure ACTIVITIES Do not drive FOR 24 HOURS No heavy lifting GREATER THAN 20 POUNDS or pushing or straining FOR 3 DAYS BATHING/SHOWERING May tub bathe in 4 days Do not sit in hot tub, whirlpool, or swim for 4 days May shower today WOUND CARE You may go home with a Band-Aid over your procedure site. Keep this Band-Aid on for the next 24 hours and then remove it leaving the site open to air. Some degree of bruising and tenderness is normal around the procedure site. It will take a while for any bruising to completely resolve. Keep your site clean and dry. You need to report the following to your almond cutting machine tender: Any draining or oozing from the site Any swelling at the site Any increased pain or tenderness at the site Any numbness in your leg where the procedure was done Any sign of infection WATCH FOR SIGNS OF INFECTION: Elevated temperature above 100.5 Redness or swelling Increased pain Foul odor or drainage. If you have any questions, please call your doctor at the number listed on your follow up instructions. Follow all instructions given to you by your physician. Document Released: 04/07/2006 Document Revised: 03/24/2013 Document Reviewed: 04/08/2014 ExitCare Patient Information 2014 [employer]. This information is not intended to replace advice given to you by your health care provider. Make sure you discuss any questions you have with your health care provider. Follow Up Care 03/07/2022 15:16:39 With:KAREEM SHEN MD Address: [address] [facility] [place] [address]- [phone] When:06/06/2022 14:30:00 [facility] 04-24-2022 Summary of episode note Discharge Instructions Thank you for allowing [facility] to assist you with your healthcare needs. The following is important discharge information regarding your hospital visit. Your Care Team BOO MARINA DO Your Diagnosis A-fib, Atrial fibrillation What to do next Scheduled Follow-Up Appointments Appointment Type When Where Contact InformationCV Remote Procedure HM 06/06/2022 10:00 AM EST [facility] CV OV 06/06/2022 02:30 PM EST [facility] Follow Up Appointments Follow Up with KAREEM SHEN MD When 06/06/2022 02:30 PM EST Where: [address] [facility] [place] [address]- [phone] The Following Activity and Diet Have Been Ordered for You Discharge Activity - Ordered -- May Shower, No heavy lifting for 3 days (nothing > 20 lbs), 04/24/22 8:32:00 EST No qualifying data available. Allergies NKA Medications Please ask your primary doctor or pharmacist before taking any other medication not listed, including over the counter drugs, herbal medications, vitamins and or supplements as they may interact with your home medications. What How Much When Why Instructions Last Dose Unchanged amiodarone (amiodarone 100 mg oral tablet) 1 tab(s) by mouth Once a day A-fib Unchanged apixaban (Eliquis 2.5 mg oral tablet) 1 tab(s) by mouth Two (2) times a day Unchanged aspirin (aspirin 81 mg oral delayed release tablet) 1 tab(s) by mouth Every day Unchanged atorvastatin (atorvastatin 40 mg oral tablet) 1 tab(s) by mouth Once a day Unchanged ezetimibe (ezetimibe 10 mg oral tablet) 1 tab(s) by mouth Once a day Unchanged fenofibrate (fenofibrate 54 mg oral tablet) 1 tab(s) by mouth Once a day with a meal Unchanged furosemide (furosemide 20 mg oral tablet) 1 tab(s) by mouth Once a day Unchanged lisinopril (lisinopril 20 mg oral tablet) 1 tab(s) by mouth Once a day Unchanged metoprolol (metoprolol tartrate 100 mg oral tablet) 1 tab(s) by mouth Two (2) times a day Unchanged potassium chloride (Potassium Chloride (Eqv-K-Tab) 20 mEq oral tablet, extended release) 1 tab(s) by mouth Once a day Take with food Please take this list to your next doctor s visit. Bring all medications you take, including over the counter medications, herbals and other supplements with you to your doctor s visit. Patients and families are reminded to discard old lists and to update any records with all medication providers or retail pharmacies. Education Materials ELECTROPHYSIOLOGY STUDY/ABLATION Discharge Instructions DIET INSTRUCTIONS Resume diet as prior to procedure ACTIVITIES Do not drive FOR 24 HOURS No heavy lifting GREATER THAN 20 POUNDS or pushing or straining FOR 3 DAYS BATHING/SHOWERING May tub bathe in 4 days Do not sit in hot tub, whirlpool, or swim for 4 days May shower today WOUND CARE You may go home with a Band-Aid over your procedure site. Keep this Band-Aid on for the next 24 hours and then remove it leaving the site open to air. Some degree of bruising and tenderness is normal around the procedure site. It will take a while for any bruising to completely resolve. Keep your site clean and dry. You need to report the following to your almond cutting machine tender: Any draining or oozing from the site Any swelling at the site Any increased pain or tenderness at the site Any numbness in your leg where the procedure was done Any sign of infection WATCH FOR SIGNS OF INFECTION: Elevated temperature above 100.5 Redness or swelling Increased pain Foul odor or drainage. If you have any questions, please call your doctor at the number listed on your follow up instructions. Follow all instructions given to you by your physician. Document Released: 04/07/2006 Document Revised: 03/24/2013 Document Reviewed: 04/08/2014 ExitCare Patient Information 2015 [facility]. This information is not intended to replace advice given to you by your health care provider. Make sure you discuss any questions you have with your health care provider. Additional Information VACCINATE! IT SAVES LIVES! Members of the community who have not yet received the COVID-19 vaccine and would like to receive it can visit one of [facility] vaccine clinics. There are many vaccine clinic locations within the [facility]. For locations and available times, please visit [email or web address] It is important to note that some COVID mobile vaccine clinics are held outdoors and may be canceled in rainy or stormy conditions. To learn more about pediatric vaccinations (ages 5-11), we invite you to visit the [facility] webpage. [email or web address]/[email or web address]-Frequently-[email or web address] -Questions.html To learn more about the COVID-19 vaccine, we invite you to visit the [facility] website for a list of frequently asked questions. [email or web address] [email or web address] [facility] Patient Portal Access Instructions: Stay connected with your healthcare team and access your personal medical information anytime with the [facility] [employer] Patient Portal.If you would like a full copy of your medical records, please contact the [facility] Medical Records Department, Friday through Friday between 8a.m. and 4:30p.m. Please follow the directions below to access the portal: 1.Access the email account you provided upon registration to the [facility].2.Look for an invitation email from [facility].3.Open the email and access the invitation link: Accept Invitation to [facility] [employer]4.Fill in the required tomlisnon to create your account. Sign into www.Topera with your username and password that you created in the above steps to stay up to date. You can then view a summary of results, a summary of your visits, and the ability to download your summaries to your computer or send the information securely to a physician. Remember that your healthcare information is confidential, so carefully consider who you will allow to register on the [facility] Patient Portal for access to your information. You can also access the [facility] Patient Portal on the [employer]. Simply click on Health Records under Health Data and then click on the [employer] logo. HOW TO SAFELY DISPOSE OF PRESCRIPTION MEDICATIONS Please use one of the following methods to safely dispose of your unused medications. 1.Use a drug disposal kit: the drug disposal pouch allows you to safely discard your old and unused drugs. Ask your nurse to give you one when you are discharged.2.Visit a local take-back location: Many local pharmacies and police departments have programs that collect old and unwanted prescription drugs. Call your local pharmacy or go to http://ReferStar.Conexus-IT/4F8Qd3e to find one close to you.3.Make use of household items: Use cat litter or old coffee grounds to dispose medications if other options are not available. Mix your drugs with these household products, seal them in an airtight container and throw it into the garbage. Call [facility]: [phone] to be sure your drugs can be disposed of in this way. Some medicines may require a different approach.4.Never flush your medications down the toilet. IF YOU HAVE BEEN PRESCRIBED AN OPIOID FOR PAIN If you have been prescribed an opioid (such as hydrocodone, oxycodone or morphine), it is critical to understand the possible side effects and risks of opioid pain medications. Even when taken as directed, opioids can have several side effects including: Tolerance, meaning you might need to take more of a medication for the same pain relief. Nausea, vomiting and/or constipation. Sleepiness, dizziness, dry mouth, confusion, depression or itching. Physical dependence, meaning you have withdrawal symptoms when a medication is stopped, can develop within a few days. KNOW YOUR RESPONSIBILITIES It is important to know exactly how much and how often to take the opioid pain medications you are prescribed. Never take opioids in higher amounts or more often than prescribed. Do not combine opioids with alcohol or other drugs that cause drowsiness, such as benzodiazepines, also known as benzos, including diazepam and alprazolam, muscle relaxants or sleep aids. Never sell or share prescription opioids. This is illegal. Store opioids in a secure place and out of reach of others (including children, family, friends and visitors). The last page of this document has been signed and retained as a CHART COPY. Signatures Patient Education Materials 3-- EP Study/Ablation (01/2018) (CUSTOM) Medication Leaflets My discharge plan and instructions have been reviewed and explained to me and I,THANH COLEMAN understand my current condition and have read and understand these discharge instructions. I have received a written copy of the plan/instructions. If I have questions, I am aware that I should contact my doctor. 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 Patient having a lot of atrial fibrillation with RVR, with reduced biventricular pacing. Patient does have some mild dyspnea on exertion. He is now here for ablation. Course: The patient underwent successful atrial fibrillation ablation. He did well overnight. Maintained sinus rhythm. No issues. Ready for discharge home. Allergies NKA Procedures atrial fibrillation ablation (RF-PVI; RF-posterosuperior wall ablation) Consults none Imaging Results and Diagnostics none Objective Vitals and Measurements T: 36.7 C (Oral) TMIN: 35.69 C TMAX: 36.7 C (Oral) HR: 65(Apical) RR: 16 BP: 110/61 SpO2: 93% HT: 180.0 cm WT: 97.3 kg BMI: 30.03 BMI: 30.03 Weight Dosing Weight: 97.3 kg (04/23/22) General Appearance: Alert and oriented x3, no apparent distress Head: Normocephalic, atraumatic EENT: EOMI, PERRLA, mucous membranes moist Neck: Supple, no thyromegaly. Cardiac: rrr, no mrg. Lungs: Clear to auscultation bilaterally, no wheezing, rales, rhonchi. Abdomen: Nondistended, nontender, bowel sounds present. Musculoskeletal: No gross deformities. Extremities: no significant lower extremity edema, no calf tenderness, pedal pulses are present bilaterally Neurological: No focal deficits Skin: Warm, dry, intact Psychiatric: Mood congruent, cooperative Pending Labs and Studies none Code Status Code Status - Ordered -- 04/23/22 15:33:00 EST, Full Code, Constant Order Admission Date 04/23/22 Discharge Date 04/24/22 Medications Unchanged amiodarone (amiodarone 100 mg oral tablet)1 tab(s) by mouth once a day. Refills: 11. apixaban (Eliquis 2.5 mg oral tablet)1 tab(s) by mouth two (2) times a day. aspirin (aspirin 81 mg oral delayed release tablet)1 tab(s) by mouth every day. atorvastatin (atorvastatin 40 mg oral tablet)1 tab(s) by mouth once a day. ezetimibe (ezetimibe 10 mg oral tablet)1 tab(s) by mouth once a day. fenofibrate (fenofibrate 54 mg oral tablet)1 tab(s) by mouth once a day with a meal. furosemide (furosemide 20 mg oral tablet)1 tab(s) by mouth once a day. lisinopril (lisinopril 20 mg oral tablet)1 tab(s) by mouth once a day. metoprolol (metoprolol tartrate 100 mg oral tablet)1 tab(s) by mouth two (2) times a day. potassium chloride (Potassium Chloride (Eqv-K-Tab) 20 mEq oral tablet, extended release)1 tab(s) by mouth once a day. Take with food. Follow Up Follow Up with KAREEM SHEN MD When 06/06/2022 02:30 PM EST Where: [address] [facility] [place] [address]- [phone] Follow Up Labs/Studies Discharge Labs No Follow-up Labs Discharge Studies No Follow-up Studies Discharge Diet resume prior Discharge Activity Discharge Activity - Ordered -- May Shower, No heavy lifting for 3 days (nothing > 20 lbs), 04/24/22 8:32:00 EST Condition on Discharge stable Discharge Disposition home Information Provided To patient Digitally Signed by KAREEM SHEN MD on 04/24/2022 08:36 AM [facility] 04-24-2022 History and physical note Date of Service 04/23/2022 Chief Complaint a-fib -- here for ablation History of Present Illness 86-year-old with history of CAD, s/p PCI (2008) cardiac pacemaker 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 Patient having a lot of atrial fibrillation with RVR, with reduced biventricular pacing. Patient does have some mild dyspnea on exertion. He is now here for ablation. Patient denies palpitations or rapid heart beat sensation. No dizziness. No syncope. Dyspnea on exertion (yes). No orthopnea, PND, rest/exertional chest pain. No significant LE Review of Systems edema or increased abdominal girth. 12 point ros is o/w completely negative Physical Exam Vitals and Measurements T: 36.7 C (Oral) TMIN: 35.69 C TMAX: 36.7 C (Oral) HR: 65(Apical) RR: 16 BP: 110/61 SpO2: 93% HT: 180.0 cm WT: 97.3 kg BMI: 30.03 BMI: 30.03 Weight Dosing Weight: 97.3 kg (04/23/22) General Appearance: Alert and oriented x2-3, no apparent distress Head: Normocephalic, atraumatic EENT: EOMI, PERRLA, mucous membranes moist Neck: Supple, no thyromegaly. Cardiac: rrr, no mrg. Lungs: Clear to auscultation bilaterally, no wheezing, rales, rhonchi. Abdomen: Nondistended, nontender, bowel sounds present. Musculoskeletal: No gross deformities. Extremities: no significant lower extremity edema, no calf tenderness, pedal pulses are present bilaterally Neurological: No focal deficits Skin: Warm, dry, intact Psychiatric: Mood congruent, cooperative Lab Results 04/23 09:25 Protime: 12.9 PT International Ratio: 1.1 04/23 09:24 WBC: 7.5 Hgb: 16.7 Hct: 50.5 Platelet: 116 L Neutrophil %: 66.1 Glucose Level: 97 Sodium Level: 145 Potassium Level: 4.4 BUN: 34.0 H Creatinine Lvl (s): 1.60 H Imaging Results and Diagnostics none today EKG afig with intermittent pacing Assessment/Plan 86-year-old with history of CAD, s/p PCI (2008) cardiac pacemaker 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 Patient having a lot of atrial fibrillation with RVR, with reduced biventricular pacing. Patient does have some mild dyspnea on exertion. He is now here for ablation. 1. AFib. - held blood thinner - to EP lab for ablation 2. LV systolic dysfunction. No CHF on exam today 3. 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 [employer]. Will reprogram after the procedure 4. Comorbid disease as above. Kareem Shen MD Cardiac Electrophysiology [phone] Problem List/Past Medical History Ongoing A-fib AAA (abdominal aortic aneurysm) Bradycardia CKD (chronic kidney disease) Hypercholesterolemia LV dysfunction Historical Pacemaker at end of battery life Procedure/Surgical History Cardioversion: 03/03/20 Cancer of skin Echocardiogram Hernia Lung Cardiac pacemaker Medications Home Medications (10) Active amiodarone 100 mg oral tablet 100 mg = 1 tab(s), Oral, qDay aspirin 81 mg oral delayed release tablet 81 mg = 1 tab(s), Oral, Daily atorvastatin 40 mg oral tablet 40 mg = 1 tab(s), Oral, qDay Eliquis 2.5 mg oral tablet 2.5 mg = 1 tab(s), Oral, BID ezetimibe 10 mg oral tablet 10 mg = 1 tab(s), Oral, qDay fenofibrate 54 mg oral tablet 54 mg = 1 tab(s), Oral, qDayM furosemide 20 mg oral tablet 20 mg = 1 tab(s), Oral, qDay lisinopril 20 mg oral tablet 20 mg = 1 tab(s), Oral, qDay metoprolol tartrate 100 mg oral tablet 100 mg = 1 tab(s), Oral, BID Potassium Chloride (Eqv-K-Tab) 20 mEq oral tablet, extended release 20 mEq = 1 tab(s), Oral, qDay Allergies NKA Social History Employment/School Status: Retired., 12/03/2021 Home/Environment Marital Status: Unmarried., 12/03/2021 Nutrition/Health Caffeine intake amount: 2-3 cups qd., 12/03/2021 Tobacco Nicotine Use: unknown., 12/04/2021 Family History Tuberculosis: Mother. Immunizations No qualifying data available. 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 Patient having a lot of atrial fibrillation with RVR, with reduced biventricular pacing. Patient does have some mild dyspnea on exertion. He is now here for ablation. 1. AFib. - held blood thinner - to EP lab for ablation 2. LV systolic dysfunction. No CHF on exam today 3. 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 [employer]. Will reprogram after the procedure 4. Comorbid disease as above. Kareem Shen MD Cardiac Electrophysiology [phone] Future Appointments Appointment Date:06/06/2022 10:00:00 AM Scheduled Provider: Location:[facility] Appointment Type:CV Remote Procedure Appointment Date:06/06/2022 02:30:00 PM Scheduled Provider: Location:[facility] Appointment Type:CV OV [facility] 01-03-2023 Anesthesiology Consult note Patient: THANH COLEMAN Age: 86 years Sex: Male : 1935 Associated Diagnoses: None Author: SILVIA KEENE MD Preoperative Information > 8 hours Anesthesia history Patient's history: negative. Family's history: negative. Health Status Allergies: Allergic Reactions (Selected) NKA, Allergies (1) ActiveReaction NKANone Documented Current medications: (Selected) Inpatient Medications Ordered NS 1,000 mL: 20 mL/hr, Intravenous lidocaine 1% preservative-free injectable solution: 2.5 mg, 0.25 mL, Intradermal, prep pharm Prescriptions Prescribed amiodarone 100 mg oral tablet: 100 mg, 1 tab(s), Oral, qDay, 30 tab(s), 11 Refill(s) Documented Medications Documented Eliquis 2.5 mg oral tablet: 2.5 mg, 1 tab(s), Oral, BID, 60 tab(s), 0 Refill(s) Potassium Chloride (Eqv-K-Tab) 20 mEq oral tablet, extended release: 20 mEq, 1 tab(s), Oral, qDay, Take with food, 30 tab(s), 0 Refill(s) aspirin 81 mg oral delayed release tablet: 81 mg, 1 tab(s), Oral, Daily, 0 Refill(s) atorvastatin 40 mg oral tablet: 40 mg, 1 tab(s), Oral, qDay, 30 tab(s), 0 Refill(s) ezetimibe 10 mg oral tablet: 10 mg, 1 tab(s), Oral, qDay, 30 tab(s), 0 Refill(s) fenofibrate 54 mg oral tablet: 54 mg, 1 tab(s), Oral, qDayM, 0 Refill(s) furosemide 20 mg oral tablet: 20 mg, 1 tab(s), Oral, qDay, 30 tab(s), 0 Refill(s) lisinopril 20 mg oral tablet: 20 mg, 1 tab(s), Oral, qDay, 30 tab(s), 0 Refill(s) metoprolol tartrate 100 mg oral tablet: 100 mg, 1 tab(s), Oral, BID, 60 tab(s), 0 Refill(s), Medications (2) Active Scheduled: (1) lidocaine 1% (MPF) 2 mL vial pf 2.5 mg 0.25 mL, Intradermal, prep pharm Continuous: (1) NS (0.9% nacl) 1,000 mL 1,000 mL, Intravenous, 20 mL/hr PRN: (0) Problem list: Medical AAA (abdominal aortic aneurysm) / SNOMED CT 230806868 / Confirmed A-fib / SNOMED CT 61285821 / Confirmed Bradycardia / SNOMED CT 35887663 / Confirmed CKD (chronic kidney disease) / SNOMED CT 7058700517 / Confirmed Hypercholesterolemia / SNOMED CT 60904104 / Confirmed LV dysfunction / SNOMED CT 6537145178 / Confirmed, Active Problems (6) A-fib AAA (abdominal aortic aneurysm) Bradycardia CKD (chronic kidney disease) Hypercholesterolemia LV dysfunction Histories Past Medical History: Resolved Pacemaker at end of battery life ([id number]): Resolved. Procedure history: Cardioversion ([id number]) on 03/03/2020 at 84 Years. Comments: 11/22/2021 15:28 Pallavi Hernandez RN 12/2019 Echocardiogram ([id number]). Comments: 11/22/2021 15:26 Pallavi Hernandez RN CONCLUSION: 1. Left ventricle is normal in size and thickness. There is prominent sigmoid septum. Systolic ejection fraction is50-55%. There are no regional wall motion abnormality seen. 2. Right atrium is moderately enlarged 3. There is mild mitral valve regurgitation 4. Aortic valve is trileaflet with diffuse sclerosis. There is trivial aortic valve regurgitation and no stenosis5. There is mild tricuspid and pulmonic valve regurgitation 6. Right ventricle is normal in size and systolic function. There is pacemaker/ICD lead seen 7. Estimated right ventricular systolic pressure is 38 mm Hg. Cardiac pacemaker ([id number]). Comments: 12/18/2021 10:29 Erlinda Hoffman RN. 12-04-2021 Upgrade to EMBEDDED PROCESSOR-P LV lead added 4798, SN: [id number]. 12/03/2021 10:59 Erlinda Hoffman RN. 08-17-2012- [facility]- Now following with Dr. Shen as of 12-03-2021. [employer] PPM Advisa- [id number], SN: [id number]. RA lead 5086, SN: [id number]. RV lead 5086, SN: [id number] Hernia ([id number]). Comments: 12/03/2021 11:01 Elizabeth Atwood LPN Hernia Repair Lung ([id number]). 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 Comments: 03/07/2022 14:14 EST - Digna Merchant REGISTERED MIDWIFE removal under left eye Social History Social & Psychosocial Habits Employment/School 12/03/2021 Status: Retired Tobacco 12/04/2021 Tobacco Use: unknown Home/Environment 12/03/2021 Marital Status of Patient if Patient Independent Adult: Unmarried Nutrition/Health 12/03/2021 Caffeine intake amount: 2-3 cups qd . Physical Examination Measurements from flowsheet : Measurements 04/23/2022 9:28 EST Height 180.0 cm Height in inches 70.9 inch(es) Admission Weight 97.3 kg Weight Lbs 214.1 lb Weight Method Actual [place] Body Weight 74.99 kg Body Mass Index 30.03 kg/m2 Body Mass Index 30.03 kg/m2 Admission Body Mass Index 30.03 m2 General: Alert and oriented, No acute distress. Airway: Mallampati classification: III (soft palate, base of uvula visible). Head: Normocephalic, Atraumatic. Dentition Evaluation: edentulous. Respiratory: Respirations are non-labored. Cardiovascular: Normal rate. Review / Management Cardiology Results Left ventricular ejection fraction: Is normal (greater than or equal to 50%), prominent sigmoid septume, otherwise normal LV thickness. Documentation reviewed: Current records, Reviewed prior records. Assessment and Plan [place] [employer] Anesthesiologists (ASA) physical status classification: Class IV. Anesthetic Preoperative Plan Anesthetic technique: General. Maintenance airway: Oral endotracheal tube. Special Monitoring: Arterial line. Postoperative pain management: Per surgeon. Risks discussed: nausea, vomiting, headache, sore throat, dental injury, hypotension, allergic reaction, serious complications. Informed consent: signed by patient. Notes: H/o AICD/pacer, aflutter, on apixaban. Last took asa and apixaban on 04/22/22. No recent viralillness. No recent HF symptoms or exacerbations. Does not use supplemental O2 at home. Denies STEPHENIE. STOPBANG score places patient at risk for obstruction sleep apnea. H/o chronic kidney disease. Acceptable hgb and platelets. H/o CAD, s/p pci in 2008, AAA repair, HTN, HLD, PAD, carotid artery stenosis, tobacco use. . Digitally Signed by SILVIA KEENE MD on 04/23/2022 10:53 AM [id number] Miscellaneous Notes* Telephone Encounter - Job Morrison PA-C - 04/12/2022 11:29 AM EST Called pt with updated culture results. He states he is doing well, currently on Doxycycline. Will call back if any new or worsening symptoms. WOUND CULTURE Moderate Staphylococcus aureus Abnormal For wound culture, tissue or aspirates are superior to swab specimens. If a swab must be used, eSwab is preferred ([place] No. [id number]). This test was developed and its performance characteristics determined by the [facility] [place] ([facility]). It has not been cleared or approved by the FDA. [facility] is regulated under CLIA as qualified to perform high-complexity testing. This test is used for clinical purposes. It should not be regarded as investigational or for research. Smear Result Abnormal Few Gram positive cocci No Polymorphonuclear Leukocytes Resulting Agency: [facility] Susceptibility Staphylococcus aureus MINIMUM INHIBITORY CONCENTRATION(VITEK) Clindamycin Resistant Doxycycline Susceptible Erythromycin Resistant Gentamicin Susceptible Oxacillin Susceptible 1 Rifampin Susceptible 2 Tetracycline Susceptible Trimeth sulfameth Susceptible Vancomycin Susceptible Job Morrison PA-C documented in this encounterHol[facility] [place]22 NoteHNO ID: [id number] Author: Camryn Davila MD Service: ? Author Type: Physician Type: Progress Notes Filed: 04/10/2022 4:31 PM Note Text: Pt. her for po visit. Healing well per pt. No pain or problems. A/P: 1. s/p mohs repair left lower lid medial initial defect 3.0 x 1.2 cm, left lower lid horizontal tightening > 1/4 eyelid, full thickness skin graft from right postauricular for Basal cell carcinoma 02/27/22 Patient on eliquis and aspirin Noticed 2 nights ago that he had blood on his pillow Doing well at this time. Excellent result Patient happy with results Exam: Healed well Mild left lower lid ectropion with hypertrophic scar left lower lid medially skin graft Right postauricular donor site inferior wound dehiscence ~ 1cm with spitting vicryl x 2 No Superficial punctate keratopathy (SPK) both eyes No sign of recurrence Patient had inferior wound dehiscence of right postauricular donor site, spitting vicryl Cultured today Start - Take Doxycycline 100 mg by mouth 2 times a day x 14 days , stop if diarrhea. Doxycycline may cause some stomach upset in some people. If so, please call and stop medication. You may get sunburned more easily with this medication. Avoid sun, sunlamps, and tanning beds. Use sunscreen and wear clothing and eyewear that protects you from the sun. Do not use if . Start mupirocin ointment three times a day to incision x 2 wks Start vitamin C 1000mg to help with healing Try to cut down on smoking to help with healing Discussed repair of right postauricular incision Risks, benefits, alternatives discussed and patient wishes to proceed. Consent obtained Left lower lid medial hypertrophic scar and ectropion Massage area Recc art tears four times a day left eye Discussed intralesional kenalog for hypertrophic scar; patient defers today F/u 2-4 wks recheck postauricular area and left lower lid medial hypertrophic scar Recc derm skin checks every 6 mo Outcome: S/P Eyelid Surgery Outcomes: Improved position Post-op Diagnoses: None The documentation for this note was completed by Akilah Espinosa PA-C acting as a scribe for Camryn Davila MD. 04/10/2022 3:42 PM. I have confirmed and edited as necessary the relevant ophthalmic history, ROS, and the neuro exam findings as obtained by others. I have seen and examined Thanh Coleman. I have discussed the case and the management of this patient's care with the Resident/Fellow, if applicable. I also have reviewed and agree with the assessment and plan as stated above and agree with all of its relevant components. I, Camryn Davila MD, personally performed the services described in this documentation. All medical record entries made by the scribe were at my direction and in my presence. I have reviewed the chart and discharge instructions (if applicable) and agree that the record reflects my personal performance and is accurate and complete. Electronically Signed: Camryn Davila MD, April 10, 2022 3:42 PM.[place] [id number] Instructions* Patient Instructions* Camryn Davila MD - 04/10/2022 3:51 PM EST Patient had inferior wound dehiscence of right postauricular donor site, spitting vicryl Cultured today Start - Take Doxycycline 100 mg by mouth 2 times a day x 14 days , stop if diarrhea. Doxycycline may cause some stomach upset in some people. If so, please call and stop medication. You may get sunburned more easily with this medication. Avoid sun, sunlamps, and tanning beds. Use sunscreen and wear clothing and eyewear that protects you from the sun. Do not use if . Start mupirocin ointment three times a day to incision x 2 wks Start vitamin C 1000mg to help with healing Try to cut down on smoking to help with healing Discussed repair of right postauricular incision Risks, benefits, alternatives discussed and patient wishes to proceed. Consent obtained Left lower lid medial hypertrophic scar and ectropion Massage area Recc art tears four times a day left eye Discussed intralesional kenalog for hypertrophic scar; patient defers today F/u 2-4 wks recheck postauricular area and left lower lid medial hypertrophic scar Recc derm skin checks every 6 mo documented in this encounterHol[facility] [place] History of Present illness Narrative* Camryn Davila MD - 04/10/2022 3:45 PM EST Pt. her for po visit. Healing well per pt. No pain or problems. A/P: 1. s/p mohs repair left lower lid medial initial defect 3.0 x 1.2 cm, left lower lid horizontal tightening > 1/4 eyelid, full thickness skin graft from right postauricular for Basal cell /9/22 Patient on eliquis and aspirin Noticed 2 nights ago that he had blood on his pillow Doing well at this time. Excellent result Patient happy with results Exam: Healed well Mild left lower lid ectropion with hypertrophic scar left lower lid medially skin graft Right postauricular donor site inferior wound dehiscence ~ 1cm with spitting vicryl x 2 No Superficial punctate keratopathy (SPK) both eyes No sign of recurrence Patient had inferior wound dehiscence of right postauricular donor site, spitting vicryl Cultured today Start - Take Doxycycline 100 mg by mouth 2 times a day x 14 days , stop if diarrhea. Doxycycline may cause some stomach upset in some people. If so, please call and stop medication. You may get sunburned more easily with this medication. Avoid sun, sunlamps, and tanning beds. Use sunscreen and wear clothing and eyewear that protects you from the sun. Do not use if . Start mupirocin ointment three times a day to incision x 2 wks Start vitamin C 1000mg to help with healing Try to cut down on smoking to help with healing Discussed repair of right postauricular incision Risks, benefits, alternatives discussed and patient wishes to proceed. Consent obtained Left lower lid medial hypertrophic scar and ectropion Massage area Recc art tears four times a day left eye Discussed intralesional kenalog for hypertrophic scar; patient defers today F/u 2-4 wks recheck postauricular area and left lower lid medial hypertrophic scar Recc derm skin checks every 6 mo Outcome: S/P Eyelid Surgery Outcomes: Improved position Post-op Diagnoses: None The documentation for this note was completed by Akilah Espinosa PA-C acting as a scribe for Camryn Davila MD. 04/10/2022 3:42 PM. I have confirmed and edited as necessary the relevant ophthalmic history, ROS, and the neuro exam findings as obtained by others. I have seen and examined Thanh Coleman. I have discussed the case and the management of this patient's care with the Resident/Fellow, if applicable. I also have reviewed and agree with the assessment and plan as stated above and agree withall of its relevant components. I, Camryn Davila MD, personally performed the services described in this documentation. All medical record entries made by the scribe were at my direction and in my presence. I have reviewed the chart and discharge instructions (if applicable) and agree that the record reflects my personal performance and is accurate and complete. Electronically Signed: Camryn Davila MD, April 10, 2022 3:42 PM. documented in this encounterHol[facility] [place]-2022 NoteHNO ID: [id number] Author: Zoraida Hodge APRN.MADY Service: ? Author Type: Nurse Practitioner Type: Progress Notes Filed: 04/10/2022 4:48 PM Note Text: Chief Complaint Patient presents with: F/U 3 Month HPI Thanh Coleman is a 86 year old male who presents here today for Above Complaints.. Today: Here for a 3 months check up. Denies any concerns, is doing well. Is still smoking, but has cut way back. Has only had 2 today. Past medical history, appointments, medications, allergies reviewed. Previous Medical History PAST MEDICAL HISTORY Diagnosis Date Abnormal cholesterol test Anticoagulant long-term use Aortic aneurysm ([facility]) s/p repair AAA Arteriosclerosis of coronary artery 12/23/2019 pacemaker, hyperlipidemia, hyperlipidemia At risk for stroke Atrial flutter ([facility]) 03/03/2020 CAD (coronary artery disease) pacemaker, hyperlipidemia, hyperlipidemia Chronic combined systolic and diastolic congestive heart failure (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) 12/2015 COPD (chronic obstructive pulmonary disease) (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) 08/10/2015 Presence of cardiac pacemaker 08/10/2015 Presence of drug coated stent in left circumflex coronary artery 08/10/2015 Sick sinus syndrome (HCC) 08/10/2015 Stage 3b chronic kidney disease (HCC) 12/21/2015 TB (pulmonary tuberculosis) Thrombocytopenia ([facility]) Previous Surgical History PAST SURGICAL HISTORY Procedure Laterality Date ABD AORTIC ANEURYSM REPAIR CORONARY STENT EA VESSEL 3-2009 x 2, drug eluting ILIAC SLEEPING BAG FILLER W/WO STENT PACEMAKER DUAL CHAMBER TIER 0 -2012 PAST SURGICAL HISTORY OF resection lobe of lung,,AAA Family History FAMILY HISTORY Problem Relation Age of Onset No Ocular Disease Mother other (TB) Mother Stroke Father No Ocular Disease Father Cancer Brother Kidney Disease Sister Patient Allergies ALLERGIES Allergen Reactions Dust Other: See Comments Grass Pollen Other: See Comments Mold Spores Other: See Comments Current Medications Current Outpatient Medications on File Prior to Visit Medication Sig erythromycin (ROMYCIN) 5 mg/gram (0.5 %) ophthalmic ointment In both eyes and on incisions four times a day X 1 wk then twice a day x 1 wk ezetimibe (ZETIA) 10 mg tablet Take 1 tablet by mouth once daily. furosemide (LASIX) 20 mg tablet TAKE 1 TABLET BY MOUTH DAILY AFTER BREAKFAST *FOR SWELLING erythromycin (ROMYCIN) 5 mg/gram (0.5 %) ophthalmic ointment Apply 1/2 inch ribbon per application to incision and in eye four times a day X 1 wk then twice a day x 1 wk ketoconazole (NIZORAL) 2 % cream Apply to affected area twice daily. To the ear for rash ketoconazole (NIZORAL) 2 % shampoo Apply to affected area once daily as needed for itching/rash. lisinopril (ZESTRIL, PRINIVIL) 20 mg tablet TAKE 1 TABLET BY MOUTH DAILY atorvastatin (LIPITOR) 40 mg tablet Take 1 tablet by mouth once daily. metoprolol tartrate, short acting, (LOPRESSOR) 100 mg tablet Take 1 tablet by mouth twice daily. potassium chloride (KLOR-CON 10) 10 mEq tablet Take 1 tablet by mouth once daily. sertraline (ZOLOFT) 50 mg tablet Take 1 tablet by mouth daily with dinner. triamcinolone (KENALOG) 0.1 % lotion Apply to affected area three times daily. iduuuutk-ilxbudhrc-vbxvbxbkds (NEOMYCIN) 1.75 mg-10,000 unit-0.025mg/mL drop Apply 3 drops to each ear twice daily. uzslunyd-kdiykmxty-fdskldvggsxlgb (CORTISPORIN) 3.5-10,000-1 mg/mL-unit/mL-% otic suspension Use 4 Drops in the ears four times daily. warfarin (COUMADIN) 4 mg tablet Take 1 tablet by mouth once daily. ELIQUIS 2.5 mg tab(s) TAKE 1 TABLET BY MOUTH TWICE A DAY Fenofibrate (LOFIBRA) 54 mg tablet Take 1 tablet by mouth once daily. nitroglycerin sublingual (NITROQUICK) 0.4 mg SL tablet Dissolve 1 tablet under the tongue every 5 minutes as needed. albuterol HFA (VENTOLIN HFA) 90 mcg/actuation inhaler Inhale 2 Puffs as instructed every 4 hours as needed for wheezing/shortness of breath. fluticasone (FLONASE) 50 mcg/actuation nasal spray Use 1 [place] in each nostril daily at bedtime. aspirin, enteric coated (ASPIRIN, ENTERIC COATED) 81 mg EC tablet Take 81 mg b (more content not included)...[facility]12-05-2022 NoteHNO ID: [id number] Author: Camryn Davila MD Service: ? Author Type: Physician Type: Progress Notes Filed: 03/25/2022 12:32 PM Note Text: Phone call today No issues with dryness No pain Using ointment A/P: 1. s/p mohs repair left lower lid medial initial defect 3.0 x 1.2 cm, left lower lid horizontal tightening > 1/4 eyelid, full thickness skin graft from right postauricular for Basal cell carcinoma 02/27/22 Patient on eliquis and aspirin Doing well at this time. Has been using erythromycin ointment four times a day No pain Reports area not dark anymore and eyelid in good place Recc ointment twice daily x w more week, then stop. Patient lives in [facility], 2 hrs away Patient will try to get photo sent in to [email or web address] In person appt 04/10/22 Sooner if issues I spent 5-10 minutes minutes providing this service. The patient or patient?s payable representative consented to this telephone encounter. I reviewed all pertinent data.[facility]11-28-2022 Miscellaneous Notes* Telephone Encounter - Wanda Mccollum LPN - 03/18/2022 3:05 PM EST Forms were faxed to other fax number below. * Telephone Encounter - Vivienne Villarreal RN - 03/18/2022 10:10 AM EST Jocelyn with [employer] calls to check on status of request. Jocelyn giving a second fax number to faxPOC to if first one doesn't go through. Fax number is [phone]. Vivienne Villarreal RN * Telephone Encounter - Ellen Taylor RN - 03/13/2022 8:41 AM EST Jocelyn from [employer] [facility] calls and states that she had faxed over a plan of care that she needs provider to sign and fax back. Jocelyn states to make sure to fax all 3 pages back. Ellen Taylor RN documented in this encounterHol[facility] [place]11-16-2022 NoteHNO ID: [id number] Author: Camryn Davila MD Service: ? Author Type: Physician Type: Progress Notes Filed: 03/06/2022 4:20 PM Note Text: A/P: 1. s/p mohs repair left lower lid medial initial defect 3.0 x 1.2 cm, left lower lid horizontal tightening > 1/4 eyelid, full thickness skin graft from right postauricular for Basal cell carcinoma 02/27/22 Doing well at this time. Patch fell off day of surgery Has been using erythromycin ointment twice a day No pain Exam: Left lower lid medial skin graft with ecchymoses Right postauricular incision clean/dry/and intact; no discharge Anticipated postsurgical ecchymosis and edema Incisions healing well No erythema or warmth Good contour of eyelids No lagophthalmos No spk No sign of infection. Left lower lid skin graft slightly more dark (patient on blood thinners) Patient forgot to restart eliquis-->advised patient to start restart today and aspirin Patient has been using erythromycin ointment twice a day ; [facility] patient taking erythromycin ointment to left lower lid skin graft and right postauricular incision four times a day x 1 week then twice daily x 1 more week, then stop. Warm compresses twice a day x 2 wks Patient lives in [facility], 2 hrs away Patient will have friend send photo in 1 week Friday ([email or web address]) or via [employer] Set up telephone call (patient without smart phone ) for 2-3 wks In person appt in 4-6 wks The documentation for this note was completed by Jacky Sanchez APRN, CNP acting as a scribe for Camryn Davila MD. 03/06/2022 4:12 PM. I have confirmed and edited as necessary the relevant ophthalmic history, ROS, and the neuro exam findings as obtained by others. I have seen and examined Thanh Coleman. I have discussed the case and the management of this patient's care with the Resident/Fellow, if applicable. I also have reviewed and agree with the assessment and plan as stated above and agree with all of its relevant components. I, Camryn Davila MD, personally performed the services described in this documentation. All medical record entries made by the scribe were at my direction and in my presence. I have reviewed the chart and discharge instructions (if applicable) and agree that the record reflects my personal performance and is accurate and complete. Electronically Signed: Camryn Davila MD, March 06, 2022 4:12 PM.[facility]11-11-2022 Miscellaneous Notes* Telephone Encounter - Ellen Taylor RN - 03/01/2022 3:29 PM EST Last Office Visit: 01/07/2022 Future Office Visit: 04/08/2022 Requested Prescriptions Pending Prescriptions Disp Refills ezetimibe (ZETIA) 10 mg tablet 90 tablet 3 Sig: Take 1 tablet by mouth once daily. furosemide (LASIX) 20 mg tablet 30 tablet 2 Sig: TAKE 1 TABLET BY MOUTH DAILY AFTER BREAKFAST *FOR SWELLING Date of Last Labs: 10/08/2021 documented in this encounterHol[facility] [place]-2022 Miscellaneous Notes* Telephone Encounter - [facility] 03/01/2022 1:55 PM EST Images from the original note were not included. Jacky Sanchez APRN.HEALTH INFORMATION SPECIALIST You; Camryn Davila MD; Job Morrison PA-C; Pamela Dave MD; Akilah Espinosa PA-C 3 minutes ago (1:51 PM) RH I spoke with him and his . They do not want to come out in this weather. I asked if they would like to do a video, she laughedand said no sweetie, I'm sorry, I don't know how to figure that out. So sweet. He says he feels great, no bleeding. I told him to start using the ointment. They are going to send a picture of his eye through [facility] email. Mana Davila MD You; Job Morrison PA-C; Jacky Sanchez APRN.HEALTH INFORMATION SPECIALIST; Pamela Dave MD; Akilah Espinosa PA-C 14 minutes ago (1:40 PM) Have him come to [place] to see me today Or I think job in [place] Before 2:30pm * Telephone Encounter - Nupur Hines - 03/01/2022 1:28 PM EST His is calling today stating that his bandage came off in bed last night. She tried to put it back on and use the tape, but it's not really staying. What should she do? 's cell: [phone] * Telephone Encounter - Nupur Hines - 03/01/2022 8:36 AM EST Attempted to call the patient back but the mailbox was full and not accepting messages. * Telephone Encounter - Nupur Hines - 03/01/2022 8:36 AM EST Images from the original note were not included. Camryn Davila MD You; Jacky Sanchez APRN.CNP; Job Morrison PA-C; Pamela Dave MD; Akilah Espinosa PA-C; Ana Cespedes; Luke Lange Mgr 15 hours ago (4:34 PM) Ok sure ok to add 4:15pm Thanks Jamie * Telephone Encounter - Nupur Escalante - 02/28/2022 4:16 PM EST They'd like to have his post op at the [place] location on Fri instead of at the [place] Location on Friday. The [facility] schedule is locked. They were looking at coming in anytime after 3:00 for his follow up. Okay to add? documented in this encounterHol[facility] Miscellaneous Notes* Telephone Encounter - Jacky Sanchez APRN.CNP - 03/01/2022 1:52 PM EST Returning patient's phone call regarding eye patch. Discussed with and patient that it's ok the patch came off. He needs to start using the ointment four times a day. Offered to be seen today, patient declined. Offered to video, patient declined. They will send us aphoto of the eye to [facility]'s email ([email or web address]) Patient states he is doing well, no issues. All questions answered, return precautions given. Call office at with any questions or concerns. Jacky Sanchez APRN.CNP documented in this encounterHolzer Medical Center [facility]11-10-2022 Miscellaneous Notes* Telephone Encounter - Hallie Sánchez RN - 02/28/2022 9:47 AM EST Attempted to call patient to inform of results from biopsy on neck. Phone number went straight to voicemail, stating you were unable to leave message. Hallie Sánchez RN * Telephone Encounter - Hallie Sánchez RN - 02/28/2022 9:47 AM EST ----- Message from Ana Maria Jolly MD sent at 02/28/2022 7:38 AM EST ----- Please call patient - inflammation of a hair follicle. No additional treatment needed. Thanks documented in this encounterHolzer [facility] Center [facility]11-10-2022 Miscellaneous Notes* Telephone Encounter - Akilah Espinosa PA-C - 02/28/2022 8:48 AM EST POD#1 Attempted to call and check on patient. Went straight to voicemail and mailbox is full. Call office at with any questions or concerns. Akilah Espinosa PA-C February 28, 2022 documented in this encounterHolzer [facility] Center [facility]11-09-2022 Miscellaneous Notes* Telephone Encounter - Pamela Dave MD - 02/27/2022 8:38 PM EST Called patient re: restarting Eliquis after oculoplastic surgery earlier today. Informed patient that he should restart it 2 days after surgery. He understood. documented in this encounterHolzer [facility] Center [facility]11-09-2022 Miscellaneous Notes* Telephone Encounter - Ana Thomas RN - 02/27/2022 12:10 PM EST Called patient, no answer, unable to leave message, will attempt again later. Per Dr Sweeney: BB This pt's PPM was at the elective replacement interval (KYLAH) as of September 2021. Typically we estimate 3 month of battery left at that point. Our last communication with him was as follows: KYLAH was triggered on 10/02/21. Patient was previously scheduled for a change out, then canceled in favor of having device change done locally. Called patient today and he reports having an appointment on 12/03/21 with a local EP. Apparently this was not done. Can you check with him to see what is going on and if he wants the PPM change to be rescheduled with us. thanks bb Ana Thomas RN documented in this encounterHolzer Medical Center [facility]11-08-2022 NoteHNO ID: [id number] Author: Ana Maria Jolly MD Service: ? 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 DAVILA) SERVICE DATE: 02/26/2022 SERVICE TIME: 939 [place]ATION[place] [address] [place] [address] REFERRING PROVIDER: Dr Kang PROCEDURE START TIME: 939 PROCEDURE END TIME: 1140 SURGEON: Dr. Ana Maria Jolly RESIDENT: Dr. Eric Crowe (observation only) REGISTERED NURSE: Jaz Vaughn RN ANTICOAGULANTS: ASA Coumadin Eliquis IMPLANTED DEVICES: Pacemaker ANTIBIOTIC PROPHYLAXIS: Not required TRANSPLANT PATIENT: No PHOTOS: Photos taken VERIFICATION OF PROCEDURE: Procedure to be Performed: Mohs Surgery Patient Verified By: Name and Date of Site(s) Confirmed: Patient confirmed site from image in the EMR. Patient verbalized agreement of surgical site(s). Site(s) Marked: Provider marking the site with patient involvement. Relevant documentation, images, implants or special equipment present: Yes SIGN IN COMMUNICATION: Completed Time Out: Team Confirms the Correct Patient, Correct Procedure, Correct Site(s) and Site Marked, Correct Position (if applicable). Time: 940 Affirmation of Time Out: Yes Sign out Discussion: Completed UNIVERSAL PROTOCOL / SAFETY CHECKLIST Procedure to be Performed: MOHS Sign In: A Moment of CARE was completed. Personnel directly involved with the procedure wore the appropriate PPE (Personal Protective Equipment). Patient/Surrogate Stated/Verified: PATIENT VERIFIED(optional for EMERGENT procedures): Patient name, Date of , Relevant allergies, and The intended procedure Time Out Communication: Intended patient and procedure match the source documents. Consent documented and matches the intended procedure. Sign Out: SIGN OUT (optional for EMERGENT procedures): All specimen containers correctly labeled. All instruments, equipment, possible retained foreign bodies accounted for. Hallie Sánchez RN LESION #1 Preoperative Diagnosis: BCC Nodular and Trichoepitheliomatous of the left malar cheek Tumor Type: Primary Path Report Available at Bedside: Inside pathology report # [id number] Pre-op Size: 1.1 cm - 2 cm, (1.3cm X 0.7cm) Lymphadenopathy: None Indication for Mohs: Anatomic Location where lesion is prone to recur Location: Area M: (Includes Cheeks, Forehead, Scalp, Neck, Jawline and Pretibial Surface) Preparation: Povidone-iodine LAYER A The patient was positioned, prepped with alcohol and draped in the usual manner. Anesthesia was obtained with local infiltration. The clinically apparent tumor was then debulked with a curette. A 1-2 mm rim of tissue was marked circumferentially around the defect. The area thus outlined was excised deep to the subcutis. Hemostasis was achieved with electrocautery. The specimen was oriented, subdivided into 2 sections, chromacoded and submitted for horizontal frozen sections. The patient tolerated the procedure well and no complications were noted. Upon review of the horizontal frozen sections for Layer A, residual Basal Cell Carcinoma was identified in pieces A1 and A2 Depth of Invasion:dermis Perineural invasion: No LVI: No . MICRONODULAR BASAL CELL CARCINOMA: Emanating from the epidermis and infiltrating the dermis are irregularly shaped islands of basaloid keratinocytes. The cells have scant cytoplasm and round dark nuclei. Mitotic figures and apoptotic bodies are evident. The nuclei at the periphery of the islands have a palisaded arrangement. The islands are associated with a fibromyxoid stroma and there is cleft formation between some of the islands and stroma. In areas the tumor breaks up into a small, micronodular, infiltrative growth pattern with deeper extension into the. LAYER B A 1-2 mm rim of tissue was marked to encompass the positive margins noted in the frozen section. The area thus outlined was excised deep to the subcutis. Hemostasis was achieved with electrocautery. The specimen was oriented, subdivided into 2 sections, chromacoded and submitted for horizontal frozen sections. The patient tolerated the procedure well and no complications were noted. Upon review of the horizontal frozen sections for Layer B, no residual tumor was identified . B1 and B2 negative CLOSURE Rationale for DELAYED REPAIR WITH DR. DAVILA Diagnosis: Surgical defect secondary to Mohs micrographic surgery on a Primary tumor type from left malar cheek (location of tumor). Post-op Defect Size: 2.0 x 1.2cm Closure Type/Final Size: TBD by Dr. Davila at closure tomorrow 02/27/22 SCC Staging N/A N/A LOCAL ANESTHETIC: 4cc 1% Lidocaine HCl with Epinephrine 1:100,000 ESTIMATED BLOOD LOSS: Less Than Minimal Unless Noted Here. COMPLICATIONS: None, patient tolerated procedure well. TOTAL OPERATIVE TIME: (more content not included)...[facility] 02-25-[facility]22 NoteHNO ID: [id number] Author: Camryn Davila MD Service: ? Author Type: Physician Type: Progress Notes Filed: 03/05/2022 12:56 PM Note Text: Telephone visit S/p biopsy 01/29/22: Dr. Jorge Luis Rasmussen Skin, left malar cheek, shave biopsy: - Basal cell carcinoma, nodular and trichoepitheliomatous types. review of systems: neg FH/SH: noncontributory A/P: 1. Left lower lid/cheek Basal cell carcinoma S/p biopsy 01/29/22: Dr. Jorge Luis Rasmussen Skin, left malar cheek, shave biopsy: - Basal cell carcinoma, nodular and trichoepitheliomatous types. Coordinated mohs surgery with dr. Jolly ([facility]) 02/26/22 02/27/22 [facility] Discussed Mohs surgery Will coordinate with Mohs surgeon (either day before or same day), if same day Mohs surgery will be in morning and reconstruction in the afternoon to give enough time to remove the skin cancer; plan on being here the entire day If not same day you will have a patch/bandage until reconstruction Depending on size of defect will determine reconstruction which can include flaps from adjacent tissues or grafts from either or both upper eyelids, postauricular, inner arm areas, lid sharing procedure May need patch or temporary tarsorrhaphy x 1 week (eye may be closed) Plan: Left lower lid/cheek Mohs reconstruction with adjacent tissue transfer, possible myocutaneous flap, skin graft from left or right upper eyelid, inner arm, postauricular, temporary tarsorrhaphy, lid sharing procedure, lacrimal stent Mac 1 hr *iv abx +pacemaker --bipolar only + patient on eliquis-->not sure if have stopped before; will try and contact legislative director to see if can hold ; patient has h/o afib ADDENDUM 02/26/22: Ok per Dr. Sweeney to hold Eliquis. Jacky Sanchez APRN.HEALTH INFORMATION SPECIALIST Avoid aspirin, ibuprofen, nsaids, vitamin e , fish oil 2 wks prior and 1 wk post Stop Eliquis 2 days prior and 5 days post if ok with legislative director - Dr. 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 The surgeon/proceduralist and patient have discussed in detail the risk of exposure to and/or potential harm posed by the COVID-19 virus with having a surgery/procedure at this time versus the risk of delaying the surgery/procedure. It is not possible to know either the risk of delaying the surgery or procedure or chance of getting an infection with perfect accuracy, but a joint decision was made between the patient and the surgeon/proceduralist to proceed at this time with the scheduled surgery/procedure as indicated on the consent form. An extensive discussion of the risks, benefits, alternatives of the above surgeries was conducted with the patient. The patient understood the risks including, but not limited to: bleeding, infection, scarring, asymmetry, need for future additional surgery, poor cosmesis, worsening dry eyes, orbital hemorrhage causing loss of vision, nerve damage, muscle damage, double vision, complications of anesthesia including loss of life. Discussed with patient these surgeries in most cases are performed with resident and/or fellow participation at the level deemed fit by Dr. Davila. Patient verbalizes an understanding. The patient wished to proceed with surgery. Post operative course reviewed. 1-2 wks of bruising and swelling. Ice compresses (ie: frozen peas in Ziploc bag with cloth between bag and skin) for15 min every hour for the first 3 days after surgery; then warm compresses as needed for bruising (from post op days 3-7) Avoid blood thinners including aspirin, Advil, Motrin, Aleve, vitamin E, fish oil at least 2 wks prior to surgery. Antibiotic ointment to eyes and incisions four times a day after surgery for 1 week. No heavy lifting over 15 lbs or any strenuous exercise for 1 wk after surgery. Walking is okay after surgery. Do not drive if you have a patch on the one eye, depth perception will be decreased This is a virtual visit requiring patient-provider interaction for the medical decision making. Thanh Coleman has consented to this virtual visit. Chief Complaint, HPI, ROS, Patient History, and Exam have been documented and reviewed. This is a telephone encounter initiated for an established patient, parent or guardian not originating from a related Evaluation AND Management service provided within the previous 7 days nor leading to an Evaluation AND Management service or procedure within the next 24 hours or soonest available appointment. Thanh Coleman consented to this telephone encounter. The following people were present for the encounter: patient. Chief complaint and HPI have been documented and reviewed. Total Time Spent: [facility] History of Present illness Narrative* Camryn Davila MD - 02/25/2022 12:52 PM EST Telephone visit S/p biopsy 01/29/22: Dr. Jorge Luis Rasmussen Skin, left malar cheek, shave biopsy: - Basal cell carcinoma, nodular and trichoepitheliomatous types. review of systems: neg FH/SH: noncontributory A/P: 1. Left lower lid/cheek Basal cell carcinoma S/p biopsy 01/29/22: Dr. Jorge Luis Rasmussen Skin, left malar cheek, shave biopsy: - Basal cell carcinoma, nodular and trichoepitheliomatous types. Coordinated mohs surgery with dr. Jolly ([facility]) 02/26/22 02/27/22 [facility] Discussed Mohs surgery Will coordinate with Mohs surgeon (either day before or same day), if same day Mohs surgery will bein morning and reconstruction in the afternoon to give enough time to remove the skin cancer; plan on being here the entire day If not same day you will have a patch/bandage until reconstruction Depending on size of defect will determine reconstruction which can include flaps from adjacent tissues or grafts from either or both upper eyelids, postauricular, inner arm areas, lid sharing procedure May need patch or temporary tarsorrhaphy x 1 week (eye may be closed) Plan: Left lower lid/cheek Mohs reconstruction with adjacent tissue transfer, possible myocutaneous flap,skin graft from left or right upper eyelid, inner arm, postauricular, temporary tarsorrhaphy, lid sharing procedure, lacrimal stent Mac 1 hr *iv abx +pacemaker --bipolar only + patient on coumadin and eliquis-->not sure if have stopped before; will try and contact legislative director to see if can hold ; patient has h/o afib Avoid aspirin, ibuprofen, nsaids, vitamin e , fish oil 2 wks prior and 1 wk post Stop Eliquis 2 days prior and 5 days post if ok with legislative director Stop Coumadin 5 days prior and restart day of surgery if ok with cardiology Nothing to eat or drink 8 hrs prior to surgery except medicines day of with small sip of water 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 The surgeon/proceduralist and patient have discussed in detail the risk of exposure to and/or potential harm posed by the COVID-19 virus with having a surgery/procedure at this time versus the risk of delaying the surgery/pr ocedure. It is not possible to know either the risk of delaying the surgery or procedure or chance of getting an infection with perfect accuracy, but a joint decision was made between the patient andthe surgeon/proceduralist to proceed at this time with the scheduled surgery/procedure as indicatedon the consent form. An extensive discussion of the risks, benefits, alternatives of the above surgeries was conducted with the patient. The patient understood the risks including, but not limited to: bleeding, infection, scarring, asymmetry, need for future additional surgery, poor cosmesis, worsening dry eyes, orbital hemorrhage causing loss of vision, nerve damage, muscle damage, double vision, complications of anesthesia including loss of life. Discussed with patient these surgeries in most cases are performed with resident and/or fellow participation at the level deemed fit by Dr. Davila. Patient verbalizes an understanding. The patient wished to proceed with surgery. Post operative course reviewed. 1-2 wks of bruising and swelling. Ice compresses (ie: frozen peas in Ziploc bag with cloth between bag and skin) for15 min every hourfor the first 3 days after surgery; then warm compresses as needed for bruising (from post op days 3-7) Avoid blood thinners including aspirin, Advil, Motrin, Aleve, vitamin E, fish oil at least 2 wks prior to surgery. Antibiotic ointment to eyes and incisions four times a day after surgery for 1 week. No heavy lifting over 15 lbs or any strenuous exercise for 1 wk after surgery. Walking is okay after surgery. Do not drive if you have a patch on the one eye, depth perception will be decreased This is a virtual visit requiring patient-provider interaction for the medical decision making. Thanh Coleman has consented to this virtual visit. Chief Complaint, HPI, ROS, Patient History, and Examhave been documented and reviewed. documented in this encounterHolzer [facility]10-27-2022 Miscellaneous Notes* Telephone Encounter - [facility] [place] 02/14/2022 2:14 PM EDT Images from the original note were not included. MD Cj Chiu; Camryn Davila MD; Job Morrison PA-C; Amy Mccloud; Jacky Sanchez APRN.HEALTH INFORMATION SPECIALIST; Doreen Opht Surg Sales Planner; Wing Mohs Nurse Pool; [facility] Clinical Pool 11 minutes ago (2:02 PM) All- I have Mohs slots on 03/05, 03/07, and 03/08 in [place]. Let me know if any of these is most convenient with Dr. Davila's OR schedule and we will book patient for Mohs. Ana Maria Christianson * Telephone Encounter - [facility] - 02/14/2022 1:49 PM EDT Images from the original note were not included. MD Cj Scott; Job Morrison PA-C; Aym Mccloud; Jacky Sanchez APRN.HEALTH INFORMATION SPECIALIST; Ln Opht Surg Sales Planner; Ana Maria Jolly MD; Avw Mohs Nurse Pool 1 minute ago (1:47 PM) FINAL DIAGNOSIS A. Skin, left malar cheek, shave biopsy: - Basal cell carcinoma, nodular and trichoepitheliomatous types. Please coordiante mohs recon with me I think Dr. Jolly/s office? B, please place surg request Thanks C * Telephone Encounter - [facility] - 02/14/2022 10:27 AM EDT The patient has an appt with Dr. Davila set for 03/01 at the [facility]. * [facility] - 02/14/2022 10:26 AM EDT Images from the original note were not included. Job Morrison PA-C You; Amy Mccloud; Jacky Sanchez APRN.HEALTH INFORMATION SPECIALIST; Camryn Davila MD 2 hours ago (7:58 AM) When is Mohs scheduled? Dr. Davila has not seen the patient, can we please get him scheduled to see her. Can add to a day with less than 50pts, do not triple book Thanks Job * Telephone Encounter - Amy Mccloud - 02/13/2022 3:[address] Jolly's office will be doing surgery on patient and requests MOHS to be coordinated at time of surgery. Please advise documented in this encounterHolzer [facility]10-26-2022 Miscellaneous Notes* Telephone Encounter - Hallie Sánchez RN - 02/13/2022 3:39 PM EDT Called and spoke with oculoplastic surgery office for Dr Davila questioning coordination for Mohs surgery. Office stated they would message Dr Davila for direction due to the fact they do not have any openings on their schedule till the end of March. Return number given. * Telephone Encounter - Hallie Sánchez RN - 02/05/2022 1:20 PM EDT Call placed to Dr Neely office to arrange coordination for repair post Mohs surgery. Awaiting return call. Called patient and reviewed plan for Mohs and oculoplastic surgeon repair. Will call and inform him of time as soon as possible. Hallie Sánchez RN * Telephone Encounter - Young Kang MD - 02/01/2022 7:41 AM EDT FINAL DIAGNOSIS A. Skin, left malar cheek, shave biopsy: - Basal cell carcinoma, nodular and trichoepitheliomatous types. WFB/SMA 01/30/2022 Will need mohs Please refer to pre op photo to see if oculoplastics needed We discussed bcc and mohs at time of biopsy documented in this encounterHolzer Medical Center [facility]10-11-20[facility] History of Present illness Narrative* Young Kang MD - 01/29/2022 3:23 PM EDT Images from the original note were not included. 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) 12/2015 COPD (chronic obstructive pulmonary disease) (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) 07/02/2021 Hypertriglyceridemia Low HDL (under 40) Neuropathy Palpitations 12/23/2019 Permanent atrial fibrillation ([facility]) 08/10/2015 Presence of cardiac pacemaker 08/10/2015 Presence of drug coated stent in left circumflex coronary artery 08/10/2015 Sick sinus syndrome ([facility]) 08/10/2015 Stage 3b chronic kidney disease ([facility]) 12/21/2015 TB (pulmonary tuberculosis) Thrombocytopenia ([facility]) Social History Tobacco Use Smoking status: Every Day Types: Cigarettes Smokeless tobacco: Never Tobacco comments: PK EVERY 3 DAYS Vaping Use Vaping Use: Former Substances: Nicotine Devices: Disposable Substance Use Topics Alcohol use: No Drug use: No Allergies: ALLERGIES Allergen Reactions Dust Other: See Comments Grass Pollen Other: See Comments Mold Spores Other: See Comments Current Outpatient Medications on File Prior to Visit Medication Sig ketoconazole (NIZORAL) 2 % cream Apply to affected area twice daily. To the ear for rash ketoconazole (NIZORAL) 2 % shampoo Apply to affected area once daily as needed for itching/rash. lisinopril (ZESTRIL, PRINIVIL) 20 mg tablet TAKE 1 TABLET BY MOUTH DAILY furosemide (LASIX) 20 mg tablet TAKE 1 TABLET BY MOUTH DAILY AFTER BREAKFAST *FOR SWELLING atorvastatin (LIPITOR) 40 mg tablet Take 1 tablet by mouth once daily. metoprolol tartrate, short acting, (LOPRESSOR) 100 mg tablet Take 1 tablet by mouth twice daily. potassium chloride (KLOR-CON 10) 10 mEq tablet Take 1 tablet by mouth once daily. sertraline (ZOLOFT) 50 mg tablet Take 1 tablet by mouth daily with dinner. triamcinolone (KENALOG) 0.1 % lotion Apply to affected area three times daily. ifmmupwp-jetnawuof-xbsdlpuczw (NEOMYCIN) 1.75 mg-10,000 unit-0.025mg/mL drop Apply 3 drops to each ear twice daily. gerixssh-wjaomdqnz-nsethpciytdhfb (CORTISPORIN) 3.5-10,000-1 mg/mL-unit/mL-% otic suspension Use 4 Drops in the ears four times daily. warfarin (COUMADIN) 4 mg tablet Take 1 tablet by mouth once daily. ELIQUIS 2.5 mg tab(s) TAKE 1 TABLET BY MOUTH TWICE A DAY Fenofibrate (LOFIBRA) 54 mg tablet Take 1 tablet by mouth once daily. nitroglycerin sublingual (NITROQUICK) 0.4 mg SL tablet Dissolve 1 tablet under the tongue every 5 minutes as needed. ezetimibe (ZETIA) 10 mg tablet Take 1 tablet by mouth once daily. albuterol HFA (VENTOLIN HFA) 90 mcg/actuation inhaler Inhale 2 Puffs as instructed every 4 hours asneeded for wheezing/shortness of breath. fluticasone (FLONASE) 50 mcg/actuation nasal spray Use 1 [place] in each nostril daily at bedtime. aspirin, enteric coated (ASPIRIN, ENTERIC COATED) 81 mg EC tablet Take 81 mg by mouth once daily. senna (SENOKOT) 8.6 mg tab Take 8.6 mg by mouth once daily as needed. Magnesium 250 mg tab Take 250 mg by mouth once daily. Current Facility-Administered Medications on File Prior to Visit Medication tropicamide 1 % 1 Drop (MYDRIACYL) PHENYLephrine 2.5 % 1 Drop (AK-DILATE, RAKESH-SYNEPHRINE) fluorescein-benoxinate 0.25-0.4 % 1 Drop (FLURESS) proparacaine 0.5 % 1 Drop (ALCAINE) PE: Limited exam. With Aldo General: no acute distress Mood: alert and oriented X's 3 Hair/Scalp: normal Face: Lt malar cheek photos taken Eyes/eyelids: normal Lips/Oral mucosa: normal Neck: normal Digits/Nails: normal Left Malar Cheek 12 mm UNIVERSAL PROTOCOL / SAFETY CHECKLIST Procedure to be Performed: Shave Biopsy Sign In: A Moment of CARE was completed. Personnel directly involved with the procedure wore the appropriate PPE (Personal Protective Equipment). Patient/Surrogate Stated/Verified: PATIENT VERIFIED(optional for EMERGENT procedures): Patient name, Date of , Relevant allergies, and The intended procedure Time Out Communication: Intended patient and procedure match the source documents. Consent documented and matches the intended procedure. Sign Out: SIGN OUT (optional for EMERGENT procedures): All specimen containers correctly labeled. All instruments, equipment, possible retained foreign bodies accounted for. Post-procedure follow-up management communicated and Plan of Care Visit completed when applicable. Young Kang MD A/P: Neoplasm of unspecified behavior of bone, soft tissue, and skin Left Malar Cheek SKIN / NAIL BIOPSY Type of biopsy: tangential Informed consent: discussed and consent obtained Timeout: patient name, date of , surgical site, and procedure verified Anesthesia: the lesion was anesthetized in a standard fashion Anesthetic: 1% lidocaine w/ epinephrine 1-100,000 buffered w/ 8.4% NaHCO3 Instrument used: DermaBlade Hemostasis achieved with: aluminum chloride Outcome: patient tolerated procedure well Post-procedure details: sterile dressing applied and wound care instructions given Dressing type: petrolatum and bandage Additional details: R/o bcc Specimen A - SURGICAL PATHOLOGY SKIN ONLY Sun protection and avoidance discussed with patient SPF 30 and higher recommended Bcc discussed Mohs discussed RTC Pending path results Pt voiced understanding The documentation for this note was completed by Raya Dorsey LPN acting as scribe for MD Ana. January 29, 2022 3:47 PM. I agree with the Chief Complaint, ROS, and Past Histories independently gathered by the clinical call center support representative and the remaining scribed note accurately describes my personal service to the patient. 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 Stable ocular examination findings without emboli both eyes. Vascularized lesion with ?ulcerated center inferior to lid left eye. Previously noted to have bleeding center (October 10). Recommended patient see dermatology today (Dr. Kang has opening at 4pm). Questionable thinning inferior left eye? No adjacent inflammation presents; not previously noted. Recommended warm compresses/lid scrubs and artificial tears. Signs and symptoms reviewed; call/returnpromptly with changes. Stable macular scans both eyes. Patient instructed to check the Amsler Grid daily (each eye separately) and to return promptly for any noted changes in the grid or otherwise with the vision. AREDS protocol discussed with patient. Patient was instructed to return promptly for any change in floaters, new or additional flashes or any change in peripheral vision. Patient instructed to check each eye separately and daily. Return to clinic 6-9 months dilated and OCT; sooner with changes to vision or ocular health. I have confirmed and edited as necessary the relevant ophthalmic history, ROS, and the exam findings as obtained by others. I have seen and examined this patient. I have discussed the case and the management of this patient's care with the resident or fellow as appropriate. I also have reviewed andagree with the assessment and plan as stated above and agree with all of its relevant components. Juan Carlos Cuadra, JOYCE January 29, 2022 3:04 PM documented in this encounterHolzer [facility] [place]10-11-2022 Instructions* Patient Instructions* Juan Carlos Cuadra, OD - 01/29/2022 3:03 PM EDT Artificial Tears Use preserved artificial tears (bottles) 4-6 times/day and before bed in both eyes. If used more frequently, use the preservative-free form (single dose droperettes). Avoid drops that get the red out like visine, clear eyes, etc. Artificial Tears (in bottles or single-use droperettes): Systane Ultra, Systane Balance, Systane Complete, Systane Gel Drops* Refresh Optive, Refresh Optive Advanced, Refresh Liquigel or Celluvisc* Theratears Soothe, Soothe XP Genteal (mild, moderate, severe*) ? Ointments* (in tubes): Systane Nighttime Ointment Refresh PM Ointment Soothe Night Time Ointment Genteal PM Ointment ? *Thicker drops, ointments, and gels last longer but may blur vision more than thinner options Warm Compresses & Lid Scrubs Frequency: two times per day; warm compresses followed by lid scrubs Warm Compresses: Run a clean washcloth under warm/hot water. Wring the washcloth nearly dry and hold it over your eyes for 5-10 minutes or until heat has dissipated. -- or -- Pour 1 cup of uncooked white rice into a clean tube sock; microwave for 30 seconds. Test heat on arm or back of hand to ensure it's not too hot. Apply to closed eyes for 5-10 minutes or until heat has dissipated. Therapearl Eye Mask (B[employer]ch [employer] Lomb) and Austin Mask are also commercially available. Lid Scrubs: Dip the corner of a clean washcloth in a solution of diluted baby shampoo. Gently rub upper and lower eyelid margins, where the eyelashes meet the lid margin to remove debris and oil. Be careful not to apply too much pressure. Rinse eyes gently with warm water. Commercially prepared lid scrubs in the form of a moistened towelette or foam are also available asOcuSoft, Systane Lid Wipes, and SteriLid. Signs and symptoms of inflammation in the operative eye can include the following: - Increased pain - Increased redness - Increased light sensitivity - A sudden decrease in vision Please immediately call our office at if these symptoms occur. These are possible signs of infection or retinal detachment and may require immediate medical attention. documented in this encounterHolzer Medical Center – [place]09-22-2022 Miscellaneous Notes* Telephone Encounter - Tamera Washington Ma - 01/10/2022 11:29 AM EDT Referral, demo, labs, ov faxed to Dr. Sydni Wallace's office. Pt notified, will have Dr. Wallace's office call pt to schedule. Tamera Delarosa Ma * Telephone Encounter - Ana Lilia Eason Pss - 01/10/2022 11:14 AM EDT Patient returned office call and would like to have order faxed to [facility] for scheduling. Patient doesn't want to travel outside of [place]. * Telephone Encounter - Tamera Delarosa Ma - 01/10/2022 11:11 AM EDT Pt notified and transferred to [facility] to set up Nephrology appt. Tamera Delarosa Ma * Telephone Encounter - Boo Marina DO - 01/09/2022 8:25 PM EDT Please inform patient that his labs are showing that his serum creatinine renal function is continuing to be impaired, showing around stage 3-b chronic kidney disease concerns. Would recommend that he follows up with Retail Sales Clerk. BNP is elevated but stable, he has a known history of systolic chronic heart failure. Also his vitamin D levels are low. He needs to be taking vitamin D3 2000 international unit(s) oncea day supplement with a meal. Boo Marina DO documented in this encounterHolzer Medical Center – [place]09-21-2022 History of Present illness Narrative* Boo Marina DO - 01/09/2022 7:15 AM EDT CC: Thanh Coleman is a 86 year old male who presents to the office for follow up HPI: Hx of CAD, multiple diagnoses with HPL, pacemaker hx, s/p aortic aneurysm repair, atrial fibrillation, taking ASA and Eliquis as prescribed. Taking Lasix once a day as prescribed, taking Lipitor and Zetia and Metoprolol. Overall BLOOD PRESSURE well controlled, no recent chest pressure or dyspnea ordizziness/LH or leg edema. Still smoking, refuses to quit. Continues to see Student Outreach Coordinator regularly, denies any new symptoms as above. Recently had pacemaker replacement about [address] Shen, tolerated procedure well CKD, stage 3, no new changes in symptoms, asymptomatic. Has had some tingling in feet, mostly in toes distally, comes and goes. No leg cramping or sorenesswith ambulation. Is a long time smoker. Has been seen by LOCKSTITCH LINING MAKER and an ANTONIA/PVR is ordered for him to have completed. PAST MEDICAL HISTORY Diagnosis Date Abnormal cholesterol test Anticoagulant long-term use Aortic aneurysm ([facility]) s/p repair AAA Arteriosclerosis of coronary artery 12/23/2019 pacemaker, hyperlipidemia, hyperlipidemia At risk for stroke Atrial flutter ([facility]) 03/03/2020 CAD (coronary artery disease) pacemaker, hyperlipidemia, hyperlipidemia Chronic combined systolic and diastolic congestive heart failure (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) 12/2015 COPD (chronic obstructive pulmonary disease) (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) 07/02/2021 Hypertriglyceridemia Low HDL (under 40) Neuropathy Palpitations 12/23/2019 Permanent atrial fibrillation ([facility]) 08/10/2015 Presence of cardiac pacemaker 08/10/2015 Presence of drug coated stent in left circumflex coronary artery 08/10/2015 Sick sinus syndrome (HCC) 08/10/2015 Stage 3b chronic kidney disease ([facility]) 12/21/2015 TB (pulmonary tuberculosis) Thrombocytopenia ([facility]) PAST SURGICAL HISTORY Procedure Laterality Date ABD AORTIC ANEURYSM REPAIR CORONARY STENT EA VESSEL 3-2008 x 2, drug eluting ILIAC SLEEPING BAG FILLER W/WO STENT PACEMAKER DUAL CHAMBER TIER 0 4-2012 PAST SURGICAL HISTORY OF resection lobe of lung,,AAA Current Outpatient Medications Medication Sig lisinopril (ZESTRIL, PRINIVIL) 20 mg tablet TAKE 1 TABLET BY MOUTH DAILY furosemide (LASIX) 20 mg tablet TAKE 1 TABLET BY MOUTH DAILY AFTER BREAKFAST *FOR SWELLING atorvastatin (LIPITOR) 40 mg tablet Take 1 tablet by mouth once daily. metoprolol tartrate, short acting, (LOPRESSOR) 100 mg tablet Take 1 tablet by mouth twice daily. potassium chloride (KLOR-CON 10) 10 mEq tablet Take 1 tablet by mouth once daily. sertraline (ZOLOFT) 50 mg tablet Take 1 tablet by mouth daily with dinner. triamcinolone (KENALOG) 0.1 % lotion Apply to affected area three times daily. ufomgwdr-mfhcoppbm-eggbvurygp (NEOMYCIN) 1.75 mg-10,000 unit-0.025mg/mL drop Apply 3 drops to each ear twice daily. fueauwdq-yxezsarhv-xmmwsgdzghzcas (CORTISPORIN) 3.5-10,000-1 mg/mL-unit/mL-% otic suspension Use 4 Drops in the ears four times daily. warfarin (COUMADIN) 4 mg tablet Take 1 tablet by mouth once daily. ELIQUIS 2.5 mg tab(s) TAKE 1 TABLET BY MOUTH TWICE A DAY Fenofibrate (LOFIBRA) 54 mg tablet Take 1 tablet by mouth once daily. nitroglycerin sublingual (NITROQUICK) 0.4 mg SL tablet Dissolve 1 tablet under the tongue every 5 minutes as needed. ezetimibe (ZETIA) 10 mg tablet Take 1 tablet by mouth once daily. albuterol HFA (VENTOLIN HFA) 90 mcg/actuation inhaler Inhale 2 Puffs as instructed every 4 hours asneeded for wheezing/shortness of breath. fluticasone (FLONASE) 50 mcg/actuation nasal spray Use 1 [place] in each nostril daily at bedtime. aspirin, enteric coated (ASPIRIN, ENTERIC COATED) 81 mg EC tablet Take 81 mg by mouth once daily. senna (SENOKOT) 8.6 mg tab Take 8.6 mg by mouth once daily as needed. Magnesium 250 mg tab Take 250 mg by mouth once daily. ketoconazole (NIZORAL) 2 % cream Apply to affected area twice daily. To the ear for rash ketoconazole (NIZORAL) 2 % shampoo Apply to affected area once daily as needed for itching/rash. No current facility-administered medications for this visit. ALLERGIES Allergen Reactions Dust Other: See Comments Grass Pollen Other: See Comments Mold Spores Other: See Comments Social History Tobacco Use Smoking status: Every Day Types: Cigarettes Smokeless tobacco: Never Tobacco comments: PK EVERY 3 DAYS Vaping Use Vaping Use: Former Substances: Nicotine Devices: Disposable Substance Use Topics Alcohol use: No Drug use: No ROS: See HPI PE: BP 100/60 Pulse 64 Temp (Src) 96.8 (Right Tympanic) Resp 24 Wt 212 lb (96.2kg) Gen: A&OX3, NAD, non-toxic appearing, Hard of hearing HEENT: PERRLA, EOMs intact b/l, nares without drainage, pharynx without erythema, exudate, lesions,or drainage. Uvula midline. Slightly dry mucous membranes, Neck: No LAD, no thyromegaly, no meningismus. EAC with eczema changes, TM wnl CV: RRR, 1/6 HSM RUSB murmur Pacemaker in place left chest wall Lungs: CTA b/l, no wheezing Skin: dry skin, seborrheic dermatitis scalp and ears. Atypical squamoproliferative skin lesion on right medial lower eyelid without ulceration or bleeding. Slowed gait, balance mostly intact No edema legs ASSESSMENT/PLAN: 1. Chronic combined systolic and diastolic congestive heart failure (HCC) - ICD9: 428.42, 428.0, ICD10: I50.42 (primary diagnosis) Overall sypmtoms are stable, had recent pacemaker replacement surgery - NT PRO BNP - COMP METABOLIC PANEL - CBC + DIFF 2. Need for influenza vaccination - ICD9: V04.81, ICD10: Z23 - INFLUENZA SEASONAL QUADRIVALENT HIGH DOSE AGE 65+ 3. Need for COVID-19 vaccine - ICD9: V04.89, ICD10: Z23 - PFIZER-BIONTECH COVID-19 BIVALENT BOOSTER VACCINE, AGE 12+ YR 4. Seborrheic dermatitis of scalp - ICD9: 690.18, ICD10: L21.9 - rx as below prn - KETOCONAZOLE 2 % TOPICAL CREAM - KETOCONAZOLE 2 % SHAMPOO 5. Vitamin B12 deficiency - ICD9: 266.2, ICD10: E53.8 - continue supplement, recheck labs - VITAMIN B12 BLOOD 6. Vitamin D deficiency - ICD9: 268.9, ICD10: E55.9 - continue supplement, recheck labs - VITAMIN D 25 HYDROXY 7. Atrial fibrillation, persistent (HCC) - ICD9: 427.31, ICD10: I48.19 Overall doing well, no new symptoms, has a pacemaker in place 8. Elevated brain natriuretic peptide (BNP) level - ICD9: 790.99, ICD10: R79.89 - no edema currently, stable symptoms, had recent pacemaker replacement surgery, f/u with Student Outreach Coordinator - NT PRO BNP - COMP METABOLIC PANEL - CBC + DIFF 9. Dyslipidemia - ICD9: 272.4, ICD10: E78.5 - to be determined upon return of lab results - Encouraged following a low fat, low cholesterol diet. - Discussed the benefits of regular aerobic exercise and weight loss. 10. Neuropathy - ICD9: 355.9, ICD10: G62.9 - stable 11. Eyelid lesion - ICD9: 374.9, ICD10: H02.9 - needs to see Applications Chemist or echocardiography technologist for removal as d/w him again today 12. COPD (chronic obstructive pulmonary disease) with chronic bronchitis (HCC) - ICD9: 491.20, ICD10: J44.9 - needs tobacco cessation which he refuses, he is aware of risks. 13. IFG (impaired fasting glucose) - ICD9: 790.21, ICD10: R73.01 - stable 14. DANIEL (generalized anxiety disorder) - ICD9: 300.02, ICD10: F41.1 - stable 15. Tobacco use - ICD9: 305.1, ICD10: Z72.0 - Cessation encouraged. - Physiologic and physical aspects of tobacco addiction as well as strategies for quitting were discussed. - Counseling was given focusing on the harmful effects of this addiction especially given the patient's medical condition(s) which will be worsened because of the chemicals in tobacco. 16. Stage 3b chronic kidney disease (HCC) - ICD9: 585.3, ICD10: N18.32 - eGFR: Stable - Counseled on avoiding regular use of NSAIDs, adequate hydration, potential risk of IV dye Boo Marina DO Return if no improvement. Follow up with Boo Marina DO. To ER if develops chest pain, shortness of breath Discussed risks, benefits, alternatives, and potential side effects of medications. Patient/Guardian expressed understanding and agreed with the plan. See patient instructions. Boo Marina DO [address] [place] [address] documented in this encounterHolzer Medical Center – [place]08-19-2022 Miscellaneous Notes* Telephone Encounter - [place] [facility] [place] 12/07/2021 2:55 PM EDT Patient has been identified by name and date of : Yes Requested Prescriptions Pending Prescriptions Disp Refills atorvastatin (LIPITOR) 40 mg tablet 90 tablet 3 Sig: Take 1 tablet by mouth once daily. metoprolol tartrate, short acting, (LOPRESSOR) 100 mg tablet 180 tablet 3 Sig: Take 1 tablet by mouth twice daily. RX INSTRUCTIONS: Pharmacy initiated this request. No need to notify patient. [facility] documented in this encounterHolzer Medical Center – [place]08-19-2022 Miscellaneous Notes* Telephone Encounter - Amy Hernandez LPN - 12/07/2021 2:43 PM EDT Patient phones requesting refills as follows: Requested Prescriptions Pending Prescriptions Disp Refills furosemide (LASIX) 20 mg tablet [Pharmacy Med Name: Furosemide 20MG TABS] 30 tablet 2 Sig: TAKE 1 TABLET BY MOUTH DAILY AFTER BREAKFAST *FOR SWELLING [place]-10/08/21 Labs-10/08/21 NOV-01/07/22 med filled 09/14/21 Please review and advise. Amy Hernandez LPN documented in this encounterHolzer Medical Center – [place]08-17-2022 Summary of episode note Discharge Instructions Thank you for allowing [facility] to assist you with your healthcare needs. The following is importantdischarge information regarding your hospital visit. Your Care Team BOO MARINA DO What to do next Scheduled Follow-Up Appointments Appointment Type When Where Contact InformationCV OV Incision Check 12/18/2021 10:45 AM EDT [facility] CV Office Procedure ICD 03/06/2022 11:15 AM EST [facility] CV Remote Procedure HM 06/06/2022 10:00 AM EST [facility] Follow Up Appointments Follow Up with KAREEM SHEN MD When 03/06/2022 11:15 AM EST Why: This is your hospital follow up in the [facility]. Where: [address] [facility] [address] [place] [address]- [phone] Follow Up with KAREEM SHEN MD When 12/18/2021 10:45 AM EDT Why: This is your incision check in the [facility]. Where: [address] [facility] [address] [place] [address]- [phone] The Following Activity and Diet Have Been Ordered for You Discharge Activity - Ordered -- May Shower, No strenuous pushing, pulling, or tugging with the left arm for 4 weeks., 12/05/21 8:02:00 EDT No qualifying data available. The Following Equipment Has Been Ordered for You Discharge Home Equipment Discharge Communication Order - Ordered -- Do not resume eliquis until Friday., 12/05/21 8:30:18 EDT Discharge Communication Order - Ordered -- Keep pressure dressing/gauze on till Friday. Keep them Aquacel dressing on till 12/11/21., 12/05/21 8:30:57 EDT Allergies NKA Medications Please ask your primary doctor or pharmacist before taking any other medication not listed, including over the counter drugs, herbal medications, vitamins and or supplements as they may interact withyour home medications. What How Much When Instructions Last Dose Unchanged apixaban (Eliquis 2.5 mg oral tablet) 1 tab(s) by mouth Two (2) times a day Unchanged atorvastatin (atorvastatin 40 mg oral tablet) 1 tab(s) by mouth Once a day Unchanged ezetimibe (ezetimibe 10 mg oral tablet) 1 tab(s) by mouth Once a day 1000 Unchanged fenofibrate (fenofibrate 54 mg oral tablet) 1 tab(s) by mouth Once a day with a meal Unchanged furosemide (furosemide 20 mg oral tablet) 1 tab(s) by mouth Once a day 1000 Unchanged lisinopril (lisinopril 20 mg oral tablet) 1 tab(s) by mouth Once a day 1000 Unchanged metoprolol (metoprolol tartrate 100 mg oral tablet) 1 tab(s) by mouth Two (2) times a day 1000 Unchanged potassium chloride (Potassium Chloride (Eqv-K-Tab) 20 mEq oral tablet, extended release) 1 tab(s) by mouth Once a day Take with food 1000 Please take this list to your next doctor s visit. Bring all medications you take, including over the counter medications, herbals and other supplements with you to your doctor s visit. Patients and families are reminded to discard old lists and to update any records with all medication providers or retail pharmacies. Education Materials PACEMAKER INSERTION Discharge Instructions WOUND CARE DO NOT place any ointments, creams, powders or lotions on the incision. Call your pacemaker doctor s office immediately if you have: o Increased redness o Drainage from the incision o Increased pain, warmth or swelling on or around the site o Fever or chills that you cannot connect with a cold or flu If an Aquacel Ag surgical dressing has been applied: o You may take a shower as long as the dressing is sealed well to your skin. o You may remove the bandage in 6 days: To do this, press down on your skin with one hand and carefully lift an edge of the bandage with your other hand. Stretch the dressing to break the adhesive sealand gently pull it off. o If the bandage becomes loose or falls off in less than 5 days, you will not be able to take any showers or baths. You must keep the incision dry for the first 5 days after your procedure. DO NOT clean the incision with any soap, water, peroxide or alcohol. Leave it dry and uncovered for 5 days, then you may shower using soap and water. o Wear loose fitting clothes over the incisional site to avoid irritation until it is healed. If you do not have a dressing: o DO NOT shower or get the incision wet for 5 days. o DO NOT clean the incision with any soap, water, peroxide or alcohol. o Leave it dry and uncovered for 5 days, then you may shower using soap and water. o Wear loose fitting clothes over the incisional site to avoid irritation until it is healed. MEDICATIONS Take antibiotics as prescribed by your physician (if prescribed) Take medications as directed until prescription is finished Avoid alcohol while taking medications You may take Tylenol (acetaminophen) for incisional pain or discomfort. ACTIVITY RESTRICTIONS DO NOT lift anything heavier than 5 lbs with the arm on the side of the Pacemaker for one month. DO NOT raise the arm on the side of the Pacemaker above shoulder level for one month. You may resume normal driving after a day unless otherwise restricted. Driving may cause soreness at the incision site. FOLLOW UP Follow up with the Pacemaker center for routine evaluation of your device. Your appointment to haveyour device checked and to see the doctor in 12-14 weeks has been scheduled and is listed above in the follow up section of these discharge instructions. Device Monitor Now that you have a permanent pacemaker, ICD, and/or loop recorder (all called a device ) it shouldbe checked regularly. This is done with a monitor that sends information from the device to your legislative director (heart doctor) office. How will I get my monitor? The monitor will be shipped to your home within 6 weeks after you are discharged. But, if you are given the monitor before discharge, please take it home. You may get other equipment (such as a bloodpressure cuff and weight scale) shipped as well. There is no charge for this equipment. How does the monitor work? The monitor needs to be set up close to where you sleep. The monitor will automatically chart picker heart signals and send the information to your doctor. Or you may be asked to push a button to send theinformation. What are the next steps? You will have an appointment with the nurse at the Device Clinic in about 2 weeks and the nurse will check your device (you will not see your doctor). The nurses will talk to you about the monitor atthat time. When you get the monitor, there will be clear instructions with how to set it up. Please call the Device Clinic if you have questions. [facility]: [phone] Ask for the Device Clinic or cabello-in extension [phone] when prompted. Device Clinic Location: [facility] (not the physician office building). Enter the [facility] and take the elevators to the 2nd floor. Take the lopez to the slight left labeled [facility] . If you are interested, you may find information about your device on the web, including videos thatwill help you understand and set up your monitor. The monitor you will get is based on the company that manufactured your device. Your device card will tell you the pipe organ technician. Using the search box: [employer]: Natalia Bensonator quick start Patient Help: Medtronic: MyCareLink quick start Patient Help: St Kush[employer] (H[place]mann): [email or web address] quick start Patient Help: Other important information about your device: Always carry your device card with you. Your device may set off a metal detector. Be sure you have your device card with you if you plan togo through any area, such as an airport that may have a metal detector. Before having any test or procedure, make sure you tell the healthcare professional that you have an implanted device. Biventricular Pacemaker Implantation A biventricular pacemaker implantation is a procedure to place (implant) a pacemaker near the heart. A pacemaker is a small, battery-powered device that helps control the heartbeat. If the heart beats irregularly or too slowly (bradycardia), the pacemaker will pace the heart so that it beats at a normal rate or a programmed rate. The parts of a biventricular pacemaker include: The pulse generator. The pulse generator contains a small computer and a memory system that is programmed to keep the heart beating at a certain rate. The pulse generator also produces the electricalsignal that triggers the heart to beat. This is implanted under the skin of the upper chest, near the collarbone. Wires (leads). There may be two or three leads placed in the heart one to the right atrium, one to the right ventricle, and one through the coronary sinus to reach the left ventricle of the heart. The leads are connected to the pulse generator. They transmit electrical pulses from the pulse generator to the heart. A biventricular pacemaker is used in people with heart failure due to weak heart muscles. The pacemaker can help the heart chambers pump more efficiently. This procedure may be done to treat: Symptoms of severe heart failure, such as shortness of breath (dyspnea). Loss of consciousness that happens repeatedly (syncope) because of an irregular heart rate. summary A pacemaker is a small, battery-powered device that helps control the heartbeat. A biventricular pacemaker is used in people with heart failure due to weak heart muscles. Follow instructions from your health care provider about taking medicines and about eating and drinking before the procedure. You will be given a pacemaker identification card that lists the implant date, device model, and pipe organ technician of your pacemaker. This information is not intended to replace advice given to you by your health care provider. Make sure you discuss any questions you have with your health care provider. Document Released: 12/30/2012 Document Revised: 03/10/2019 Document Reviewed: 03/10/2019 ElseThinkfuse Patient Education 2020 BackOps. Additional Information VACCINATE! IT SAVES LIVES! Members of the community who have not yet received the COVID-19 vaccine and would like to receive it can visit one of [facility] vaccine clinics. There are many vaccine clinic locations within the [facility]. For locations and available times, please visit [email or web address] It is important to note that some COVID mobile vaccine clinics are held outdoors and may be canceled in rainy or stormy conditions. To learn more about pediatric vaccinations (ages 5-11), we invite you to visit the [facility] webpage. [email or web address]/[email or web address]-Jsg [email or web address].htmlTo learn more about the COVID-19 vaccine, we invite you to visit the [employer] website for a list of frequently asked questions. [email or web address]-[email or web address]-[email or web address] _[email or web address]-Questions.pdf [employer] Patient Portal Access Instructions: Stay connected with your healthcare team and access your personal medical information anytime with the [employer] Patient Portal.If you would like a full copy of your medical records, please contact the [facility] Medical Records Department, Friday through Friday between 8a.m. and 4:30p.m. Please follow the directions below to access the portal: 1.Access the email account you provided upon registration to the [facility].2.Look for an invitation email from [facility].3.Open the email and access the invitation link: Accept Invitation to [employer]4.Fill in the required tomlinson to create your account. Sign into www.Topera with your username and password that you created in the above steps to stay up to date. You can then view a summary of results, a summary of your visits, and the ability to download your summaries to your computer or send the information securely to a physician. Remember that your healthcare information is confidential, so carefully consider who you will allow to register on the [facility] Patient Portal for access to your information. You can also access the [facility] Patient Portal on the MIGSIF ketan. Simply click on Health Records under [employer] and then click on the [employer] logo. HOW TO SAFELY DISPOSE OF PRESCRIPTION MEDICATIONS Please use one of the following methods to safely dispose of your unused medications. 1.Use a drug disposal kit: the drug disposal pouch allows you to safely discard your old and unuseddrugs. Ask your nurse to give you one when you are discharged.2.Visit a local take-back location: Many local pharmacies and police departments have programs that collect old and unwanted prescriptiondrugs. Call your local pharmacy or go to http://ReferStar.Conexus-IT/9S7Jr6p to find one close to you.3.Make use of household items: Use cat litter or old coffee grounds to dispose medications if other options arenot available. Mix your drugs with these household products, seal them in an airtight container andthrow it into the garbage. Call [facility]: [phone] to be sure your drugs can be disposed of in this way. Some medicines may require a different approach.4.Never flush your medications down the toilet. IF YOU HAVE BEEN PRESCRIBED AN OPIOID FOR PAIN If you have been prescribed an opioid (such as hydrocodone, oxycodone or morphine), it is critical to understand the possible side effects and risks of opioid pain medications. Even when taken as directed, opioids can have several side effects including: Tolerance, meaning you might need to take more of a medication for the same pain relief. Nausea, vomiting and/or constipation. Sleepiness, dizziness, dry mouth, confusion, depression or itching. Physical dependence, meaning you have withdrawal symptoms when a medication is stopped, can develop within a few days. KNOW YOUR RESPONSIBILITIES It is important to know exactly how much and how often to take the opioid pain medications you are prescribed. Never take opioids in higher amounts or more often than prescribed. Do not combine opioids with alcohol or other drugs that cause drowsiness, such as benzodiazepines, also known as benzos, including diazepam and alprazolam, muscle relaxants or sleep aids. Never sell or share prescription opioids. This is illegal. Store opioids in a secure place and out of reach of others (including children, family, friends and visitors). The last page of this document has been signed and retained as a CHART COPY. Signatures Patient Education Materials 3- Pacemaker New Device (no ICD) 05/2019 (CUSTOM) Biventricular Pacemaker Implantation Medication Leaflets My discharge plan and instructions have been reviewed and explained to me and I,THANH COLEMAN understand my current condition and have read and understand these discharge instructions. I have received a written copy of the plan/instructions. If I have questions, I am aware that I should contact my doctor. 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 Signature: Date/Time: Relationship to Patient: Witness Name/Signature: [id number] Discharge instructions Patient Education 12/05/2021 07:21:25 3- Pacemaker New Device (no ICD) 05/2019 (CUSTOM) PACEMAKER INSERTION Discharge Instructions WOUND CARE DO NOT place any ointments, creams, powders or lotions on the incision. Call your pacemaker doctor s office immediately if you have: oIncreased redness oDrainage from the incision oIncreased pain, warmth or swelling on or around the site oFever or chills that you cannot connect with a cold or flu If an Aquacel Ag surgical dressing has been applied: oYou may take a shower as long as the dressing is sealed well to your skin. oYou may remove the bandage in 6 days: To do this, press down on your skin with one hand and carefully lift an edge of the bandage with your other hand. Stretch the dressing to break the adhesive seal and gently pull it off. oIf the bandage becomes loose or falls off in less than 5 days, you will not be able to take any showers or baths. You must keep the incision dry for the first 5 days after your procedure. DO NOT clean the incision with any soap, water, peroxide or alcohol. Leave it dry and uncovered for 5 days, then you may shower using soap and water. oWear loose fitting clothes over the incisional site to avoid irritation until it is healed. If you do not have a dressing: oDO NOT shower or get the incision wet for 5 days. oDO NOT clean the incision with any soap, water, peroxide or alcohol. oLeave it dry and uncovered for 5 days, then you may shower using soap and water. oWear loose fitting clothes over the incisional site to avoid irritation until it is healed. MEDICATIONS Take antibiotics as prescribed by your physician (if prescribed) Take medications as directed until prescription is finished Avoid alcohol while taking medications You may take Tylenol (acetaminophen) for incisional pain or discomfort. ACTIVITY RESTRICTIONS DO NOT lift anything heavier than 5 lbs with the arm on the side of the Pacemaker for one month. DO NOT raise the arm on the side of the Pacemaker above shoulder level for one month. You may resume normal driving after a day unless otherwise restricted. Driving may cause soreness at the incision site. FOLLOW UP Follow up with the Pacemaker center for routine evaluation of your device. Your appointment to haveyour device checked and to see the doctor in 12-14 weeks has been scheduled and is listed above in the follow up section of these discharge instructions. Device Monitor Now that you have a permanent pacemaker, ICD, and/or loop recorder (all called a device ) it shouldbe checked regularly. This is done with a monitor that sends information from the device to your legislative director (heart doctor) office. How will I get my monitor? The monitor will be shipped to your home within 6 weeks after you are discharged. But, if you are given the monitor before discharge, please take it home. You may get other equipment (such as a bloodpressure cuff and weight scale) shipped as well. There is no charge for this equipment. How does the monitor work? The monitor needs to be set up close to where you sleep. The monitor will automatically chart picker heart signals and send the information to your doctor. Or you may be asked to push a button to send theinformation. What are the next steps? You will have an appointment with the nurse at the Device Clinic in about 2 weeks and the nurse will check your device (you will not see your doctor). The nurses will talk to you about the monitor atthat time. When you get the monitor, there will be clear instructions with how to set it up. Please call the Device Clinic if you have questions. [facility]: [phone] Ask for the Device Clinic or cabello-in extension [phone] when prompted. Device Clinic Location: [facility] (not the physician office building). [facility] and [facility] elevators to the 2nd floor. Take the lopez to the slight left labeled [facility] . If you are interested, you may find information about your device on the web, including videos thatwill help you understand and set up your monitor. The monitor you will get is based on the company that manufactured your device. Your device card will tell you the pipe organ technician. Using the search box: On The Net Yet: Lattitude Communicator quick start Patient Help: Medtronic: MyCareLink quick start Patient Help: St Kushal (Herrmann): [email or web address] quick start Patient Help: Other important information about your device: Always carry your device card with you. Your device may set off a metal detector. Be sure you have your device card with you if you plan togo through any area, such as an airport that may have a metal detector. Before having any test or procedure, make sure you tell the healthcare professional that you have an implanted device. 12/05/2021 07:21:25 Biventricular Pacemaker Implantation Biventricular Pacemaker Implantation A biventricular pacemaker implantation is a procedure to place (implant) a pacemaker near the heart. A pacemaker is a small, battery-powered device that helps control the heartbeat. If the heart beats irregularly or too slowly (bradycardia), the pacemaker will pace the heart so that it beats at a normal rate or a programmed rate. The parts of a biventricular pacemaker include: The pulse generator. The pulse generator contains a small computer and a memory system that is programmed to keep the heart beating at a certain rate. The pulse generator also produces the electricalsignal that triggers the heart to beat. This is implanted under the skin of the upper chest, near the collarbone. Wires (leads). There may be two or three leads placed in the heart one to the right atrium, one to the right ventricle, and one through the coronary sinus to reach the left ventricle of the heart. The leads are connected to the pulse generator. They transmit electrical pulses from the pulse generator to the heart. A biventricular pacemaker is used in people with heart failure due to weak heart muscles. The pacemaker can help the heart chambers pump more efficiently. This procedure may be done to treat: Symptoms of severe heart failure, such as shortness of breath (dyspnea). Loss of consciousness that happens repeatedly (syncope) because of an irregular heart rate. summary A pacemaker is a small, battery-powered device that helps control the heartbeat. A biventricular pacemaker is used in people with heart failure due to weak heart muscles. Follow instructions from your health care provider about taking medicines and about eating and drinking before the procedure. You will be given a pacemaker identification card that lists the implant date, device model, and pipe organ technician of your pacemaker. This information is not intended to replace advice given to you by your health care provider. Make sure you discuss any questions you have with your health care provider. Document Released: 12/30/2012 Document Revised: 03/10/2019 Document Reviewed: 03/10/2019 AirPR Patient Education 2020 BackOps. Follow Up Care 12/03/2021 12:07:27 With:KAREEM SHEN MD Address: [address] [place] [address]- [phone] When:12/18/2021 10:45:00 Comments:This is your incision check in the Device Clinic. With:KAREEM SHEN MD Address: [address] [place] [address]- [phone] When:03/06/2022 11:15:00 Comments:This is your hospital follow up in the Device Clinic. [facility] 08-17-2022 Note ORIGINAL EXAMINATION: TWO XRAY VIEWS OF THE CHEST 12/04/2021 6:29 pm COMPARISON: None. HISTORY: ORDERING SYSTEM PROVIDED HISTORY: Reason for Exam: Evaluate for pneumothorax/lead position post pacer/ICD insertion FINDINGS: Left-sided cardiac pacemaker with leads projecting at the right atrium and right ventricle. Cardiomediastinal silhouette is within normal limits. Atherosclerotic aorta. No focal lung consolidation, pleural effusion, or pneumothorax. Mild bibasilar linear opacities favor atelectasis. No acute osseous abnormality. IMPRESSION: Left-sided cardiac pacemaker and leads projecting at the right atrium and right ventricle. No pneumothorax. Mild bibasilar atelectasis. I have personally reviewed the images of this examination and agree with the resident's findings and interpretation. Interpreted by: Pavan Valencia MD Preliminary Report By: Kareem Escobar Electronically signed By Pavan Valencia MD Dictated Date: 12/05/2021 4:07:25 AM Prelim Date: 12/05/2021 4:10:23 AM Sign Date: 12/05/2021 6:35:07 AM Ordering Provider: [facility]08-16-2022 Note ORIGINAL EXAMINATION: TWO XRAY VIEWS OF THE CHEST 12/04/2021 6:29 pm COMPARISON: None. HISTORY: ORDERING SYSTEM PROVIDED HISTORY: Reason for Exam: Evaluate for pneumothorax/lead position post pacer/ICD insertion FINDINGS: Left-sided cardiac pacemaker with leads projecting at the right atrium and right ventricle. Cardiomediastinal silhouette is within normal limits. Atherosclerotic aorta. No focal lung consolidation, pleural effusion, or pneumothorax. Mild bibasilar linear opacities favor atelectasis. No acute osseous abnormality. IMPRESSION: Left-sided cardiac pacemaker and leads projecting at the right atrium and right ventricle. No pneumothorax. Mild bibasilar atelectasis. I have personally reviewed the images of this examination and agree with the resident's findings and interpretation. Interpreted by: Pavan Valencia MD Preliminary Report By: Kareem Escobar Electronically signed By Pavan Valencia MD Dictated Date: 12/05/2021 4:07:25 AM Prelim Date: 12/05/2021 4:10:23 AM Sign Date: 12/05/2021 6:35:07 AM Ordering Provider: [facility]08-12-2022 Miscellaneous Notes* Telephone Encounter - Vivienne Villarreal RN - 11/30/2021 4:27 PM EDT Elizabeth with [facility] calls to request most recent OV note and pacemaker information. Patient is a self referral for pacemaker check/replacement. Faxed per request to [phone]. Vivienne Villarreal RN documented in [facility]Hol[facility] Miscellaneous Notes* Telephone Encounter - Vivienne Villarreal RN - 11/29/2021 12:14 PM EDT Patient calls and notified of results and providers instructions. Patient verbalizes understanding.Patient given number to schedule with vascular medicine and transferred call. Vivienne Villarreal RN * Telephone Encounter - Sahara Pathak RN - 11/29/2021 12:00 PM EDT Pts voicemail was full and his friend Priyanka did not have a voicemail set up. Will have to try and call again later. * Telephone Encounter - Zoraida Hodge APRN.CNP - 11/29/2021 11:35 AM EDT Please let Thanh know that his testing on his legs does show that he has some decreased circulation to his legs and feet. I'd like him to see a vascular specialist for their opinion. Please assist him to schedule this appointment. Zoraida Hodge APRN.MADY documented in this encounterHolzer [facility] [place]07-05-2022 Miscellaneous Notes* Telephone Encounter - Ana Herndon MA - 10/23/2021 2:12 PM EDT Patient notified of results, verbalizes understanding of instructions. Ana Herndon MA * Telephone Encounter - Sahara Pathak RN - 10/11/2021 9:51 AM EDT Voicemail is full will need to try and call back. Sahara Pathak RN * Telephone Encounter - Boo Marina DO - 10/10/2021 9:04 PM EDT Please inform patient that there are a lot of chronic changes with his lab results His BNP levels remain elevated and sodium and electrolyte levels slightly abnormal, also elevated serum BUN and creatinine levels. This is likely directly related to his CHF heart failure presence. Needs to continue routine follow up with his cardiologists for close care. His vitamin D levels are low. Needs to be taking at least 2000 international unit(s) A day of vitamin D3 with a meal. Boo Marina DO documented in this encounterHolzer [facility] [place]06-28-2022 Miscellaneous Notes* Telephone Encounter - Giuliana Moore RN - 10/16/2021 4:50 PM EDT I was following up with patient due to canceled generator change out. Patient states that due to gas prices, he is unable to come to [place] and that is why he canceled 09/25/21 procedure. Patient was asked if he has rescheduled? He stated that he was under the impression that [facility] was going to reschedule him closer to home. Patient was educated that [facility] EP service provides services to the [facility] and that Dr. Sweeney does not perform procedures at [place]. Patient stated that he will need to find a provider, to perform gen change procedure with CS vs LBB lead implant. Update sent to Dr. Sweeney. documented in this encounterHolzer Medical Center – [place] Miscellaneous Notes* Telephone Encounter - Vivienne Villarreal RN - 10/12/2021 4:34 PM EDT Patient has been identified by name and date of : Yes Pharmacy phones for refill(s): Pending Prescriptions Disp Refills POTASSIUM CHLORIDE ER 10 MEQ TABLET,EXTENDED RELEASE 90 tablet 3 Sig: Take 1 tablet by mouth once daily. MEENA: No Date of last office visit with pcp: 10/08/2021 Future appt: 01/07/2022 Last 2 Encounter Wt Readings: Date: Wt: 10/08/2021 97.1 kg (214 lb) 09/28/2021 96.2 kg (212 lb) Previous labs/tests for medication: Blood Pressure: BUN (mg/dL) Date Value 10/08/2021 31 12/29/2020 31 Sodium (mmol/L) Date Value 10/08/2021 145 12/29/2020 143 Last 1 Encounter BP Readings: Date: BP: 10/08/2021 90/60 Liver Function: ALT (U/L) Date Value 10/08/2021 16 12/29/2020 30 AST (U/L) Date Value 10/08/2021 19 12/29/2020 29 Potassium: 4.8 on 10/08/21 Please advise. Thank you. Vivienne Villarreal RN documented in this encounterHolzer [facility] – [place] Miscellaneous Notes* Telephone Encounter - Anil Perry LPN - 10/12/2021 3:12 PM EDT Patient phones requesting refills as follows: Pending Prescriptions Disp Refills LISINOPRIL 20 MG TABLET 30 tablet Sig: TAKE 1 TABLET BY MOUTH DAILY MEENA: Yes YUDELKA 10/08/21 NOV 01/07/22 Please review and advise. Anil Perry LPN documented in this encounterHolzer [facility] Center – [place] History of Present illness Narrative* Luh Rojas OD - 10/09/2021 2:43 PM EDT 1. Eyelid lesion 11x9mm lesion upper cheek/below lower eyelid left eye x [address] [facility] Recommended consultation with Dr. Davila for possible biopsy/removal, but patient does not want to travel Will follow-up with Dr. Marina regarding local dermatology referral since lesion below lower lid 2. Squamous blepharitis of upper and lower eyelids of both eyes Continue warm compresses and artificial tears 3. Pseudophakia of both eyes 4. Right epiretinal membrane 5. Intermediate stage nonexudative age-related macular degeneration of both eyes 6. Corneal guttata of both eyes Follow-up as scheduled with Dr. Cuadra in January Luh Rojas, OD October 09, 2021 2:43 PM documented in this encounterHolzer Medical Center – [place]06[facility]13[place]2022 Miscellaneous Notes* Telephone Encounter - Boo Marina DO - 10/01/2021 5:39 PM EDT Noted, agree with below Boo Marina DO * Telephone Encounter - Leslie Matute RN - 10/01/2021 3:13 PM EDT Reviewed triage protocol guidelines with DENA Cowan and patient. Disposition: ER evaluation. Patient agreeable. Camryn states patient was to schedule appointment to have his pacemaker battery replaced but did not want to go to [facility] so has not scheduled. Leslie Matute, RN Reason for Disposition [1] Systolic BP < 80 AND [2] NOT dizzy, lightheaded or weak Answer Assessment - Initial Assessment Questions 1. BLOOD PRESSURE :DENA Cowan @ [facility] calling to report Low BP readings taken x 3 BP 72/50 Pulse 60 2. ONSET: within the last 30 minutes and 5 minutes apart 3. HOW: automatic BP monitor 4. HISTORY: BP at last OV on 09/28 102/68 Last PT visit was 120/70 5. MEDICATIONS: Took Lisinopril, Metoprolol and Lasix @ 0830 AM No recent changes in BP medication 6. PULSE RATE: Pulse 60 7. OTHER SYMPTOMS: No recent illness or injury Denies feeling dehydrated. Drank 3 bottles of water and 2 cups of coffee so far today. Denies feeling dizzy or lightheaded. Protocols used: LOW BLOOD [id number] documented in this encounterHolzer Medical Center – [place]06-10-2022 Miscellaneous Notes* Telephone Encounter - Zoraida Hodge APRN.CNP - 09/28/2021 4:13 PM EDT The following approved medication requests have been transmitted electronically. Signed Prescriptions Disp Refills hrhhfvbn-qcoxnmpba-otcbnnjmcingcp (CORTISPORIN) 3.5-10,000-1 mg/mL-unit/mL-% otic suspension 10 mL 2 Sig: Use 4 Drops in the ears four times daily. Authorizing Provider: ZORAIDA HODGE APRN.CNP * Telephone Encounter - Pat Miranda LPN - 09/28/2021 3:25 PM EDT Irena from [facility] pharmacy calling the drop that was sent in for patient is an eye drop. Asking if you wanted the Hzrrbhzm-uxnxalbrt-kefpsqlvcekqzq for the ears? Please advise documented in this encounterHolzer Medical Center – [place]06-10-2022 History of Present illness Narrative* Zoraida Hodge APRN.CNP - 09/28/2021 2:19 PM EDT Chief Complaint Patient presents with: Numbness: bilateral feet x days Ear Problem: dry skin on bilateral ears HPI Thanh Coleman is a 85 year old male who presents here today for Above Complaints. Today: Toes on both feet feel numb and tingly. Can still feel well when touching them. Present for a couple weeks. Feet are always cold. This is not a new thing. No pain. Both ears are chronically dry. Has been going on for several months. Are not painful. Are itchy. Occasionally will have some drainage from the left ear. Was seen in Urgent Care on 06/21 and given Nystatin cream to use. Does seem to be a bit better. Past medical history, appointments, medications, allergies reviewed. Previous Medical History PAST MEDICAL HISTORY Diagnosis Date Abnormal cholesterol test Anticoagulant long-term use Aortic aneurysm ([facility]) s/p repair AAA Arteriosclerosis of coronary artery 12/23/2019 pacemaker, hyperlipidemia, hyperlipidemia At risk for stroke Atrial flutter ([facility]) 03/03/2020 CAD (coronary artery disease) pacemaker, hyperlipidemia, hyperlipidemia Chronic combined systolic and diastolic congestive heart failure (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) 12/2015 COPD (chronic obstructive pulmonary disease) (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) 07/02/2021 Hypertriglyceridemia Low HDL (under 40) Neuropathy Palpitations 12/23/2019 Permanent atrial fibrillation ([facility]) 08/10/2015 Presence of cardiac pacemaker 08/10/2015 Presence of drug coated stent in left circumflex coronary artery 08/10/2015 Sick sinus syndrome ([facility]) 08/10/2015 Stage 3b chronic kidney disease ([facility]) 12/21/2015 TB (pulmonary tuberculosis) Thrombocytopenia ([facility]) Previous Surgical History PAST SURGICAL HISTORY Procedure Laterality Date ABD AORTIC ANEURYSM REPAIR CORONARY STENT EA VESSEL 3-2008 x 2, drug eluting ILIAC SLEEPING BAG FILLER W/WO STENT PACEMAKER DUAL CHAMBER TIER 0 -2012 PAST SURGICAL HISTORY OF resection lobe of lung,,AAA Family History FAMILY HISTORY Problem Relation Age of Onset No Ocular Disease Mother other (TB) Mother Stroke Father No Ocular Disease Father Cancer Brother Kidney Disease Sister Patient Allergies ALLERGIES Allergen Reactions Dust Other: See Comments Grass Pollen Other: See Comments Mold Spores Other: See Comments Current Medications Current Outpatient Medications on File Prior to Visit Medication Sig warfarin (COUMADIN) 4 mg tablet Take 1 tablet by mouth once daily. ELIQUIS 2.5 mg tab(s) TAKE 1 TABLET BY MOUTH TWICE A DAY furosemide (LASIX) 20 mg tablet TAKE 1 TABLET BY MOUTH DAILY AFTER BREAKFAST *FOR SWELLING Fenofibrate (LOFIBRA) 54 mg tablet Take 1 tablet by mouth once daily. nitroglycerin sublingual (NITROQUICK) 0.4 mg SL tablet Dissolve 1 tablet under the tongue every 5 minutes as needed. lisinopril (ZESTRIL, PRINIVIL) 20 mg tablet Take 1 tablet by mouth once daily. ezetimibe (ZETIA) 10 mg tablet Take 1 tablet by mouth once daily. metoprolol tartrate, short acting, (LOPRESSOR) 100 mg tablet Take 1 tablet by mouth twice daily. atorvastatin (LIPITOR) 40 mg tablet Take 1 tablet by mouth once daily. potassium chloride (KLOR-CON 10) 10 mEq tablet Take 1 tablet by mouth once daily. albuterol HFA (VENTOLIN HFA) 90 mcg/actuation inhaler Inhale 2 Puffs as instructed every 4 hours asneeded for wheezing/shortness of breath. fluticasone (FLONASE) 50 mcg/actuation nasal spray Use 1 [place] in each nostril daily at bedtime. aspirin, enteric coated (ASPIRIN, ENTERIC COATED) 81 mg EC tablet Take 81 mg by mouth once daily. senna (SENOKOT) 8.6 mg tab Take 8.6 mg by mouth once daily as needed. Magnesium 250 mg tab Take 250 mg by mouth once daily. No current facility-administered medications on file prior to visit. Social History Social History Tobacco Use Smoking status: Current Every Day Smoker Types: Cigarettes Smokeless tobacco: Never Used Tobacco comment: PK EVERY 3 DAYS Vaping Use Vaping Use: Former Substances: Nicotine Devices: Disposable Substance Use Topics Alcohol use: No Drug use: No Review of Symptoms REVIEW OF SYSTEMS see HPI, otherwise negative EXAM: BP 102/68 (BP Site: Left Arm, BP Position: Sitting, BP Cuff Size: Regular Adult) Pulse 79 Resp 16 Wt 96.2 kg (212 lb) SpO2 95% BMI 30.42 kg/m General Appearance: Well appearing, alert, in no acute distress, well-hydrated, well nourished.. Skin: bilateral external ears dry with crusting flaking skin, L>R. Ears: Positive findings: dry flaking skin to external ear canals, small amount white drainage appreciated. Heart: RRR without murmur, gallop, or rubs. No ectopy. Extremities: Pulses: 1+, bilateral toes cool, poor capillary refill, purple color. Health Maintenance List ADVANCE DIRECTIVE DISCUSSION Never done DTAP,TDAP,TD(1 - Tdap) due on 06/15/2022 LDL CHOLESTEROL due on 07/04/2022 DIABETES SCREEN due on 07/04/2024 SPIROMETRY Completed INFLUENZA Completed SHINGRIX VACCINE Completed COVID-19 VACCINE Completed PNEUMOCOCCAL: 65+ Completed Data reviewed Previous records, office notes ASSESSMENT/PLAN: 1. Numbness of toes - ICD9: 782.0, ICD10: R20.0 (primary diagnosis) - PVR ANK PRESS [facility] 2. Neuropathy - ICD9: 355.9, ICD10: G62.9 - PVR ANK PRESS [facility] 3. Eczema of both external ears - ICD9: 380.22, ICD10: H60.543 - TRIAMCINOLONE ACETONIDE 0.1 % LOTION - NEOMYCIN 1.75 MG-POLYMYXIN 10,000 UNIT-GRAMICIDIN 0.025MG/ML EYE DROPS 4. Chronic eczematous otitis externa of both ears - ICD9: 380.23, ICD10: H60.8X3 - TRIAMCINOLONE ACETONIDE 0.1 % LOTION - NEOMYCIN 1.75 MG-POLYMYXIN 10,000 UNIT-GRAMICIDIN 0.025MG/ML EYE DROPS Zoraida Hodge APRN.HEALTH INFORMATION SPECIALIST documented in this encounterHolzer Medical Center – [place]06-09-2022 Miscellaneous Notes* Telephone Encounter - Vivienne Villarreal RN - 09/27/2021 11:39 AM EDT nurse (Jocelyn) calls with patient to notify provider that he has numbness and tingling to toes on bilateral feet. Nurse triage completed. Protocol recommends see provider within 3 days. Patient agreeable. Appointment Scheduled. Care advice reviewed. Patient verbalizes understanding. Patient to call back if symptoms worsen or change. Reason for Disposition [1] Numbness or tingling on both sides of body AND [2] is a new symptom present > 24 hours Answer Assessment - Initial Assessment Questions 1. SYMPTOM: All toes on both feet numbness and tingling. 2. ONSET: Last night 3. LAST NORMAL: Yesterday 4. PATTERN: Constant and present now. 5. CARDIAC SYMPTOMS: No chest pain, difficulty breathing, or palpitations. 6. NEUROLOGIC SYMPTOMS: No headache, dizziness, vision loss, double vision, changes in speech, Or unsteadiness on your feet. 7. OTHER SYMPTOMS: None HH nurse (Jocelyn) reports patient has an equally strong pulse to both feet. No discoloration or warmth noted. Afebrile. Protocols used: NEUROLOGIC [id number] documented in this encounterHolzer Medical Center – [place]05-27-2022 Miscellaneous Notes* Telephone Encounter - Ana Thomas RN - 09/14/2021 12:07 PM EDT Spoke to patient who reports not being able to come to [facility] [place] for device change out due tocost prohibitive. Asking about [facility]. Will discuss with Dr Sweeney and update patient accordingly. Ana Thomas RN * Telephone Encounter - Prisca Grove - 09/12/2021 2:54 PM EDT September 12, 2021 Patient Contact Number: [phone] Patient last seen within the last year: Yes Reason For Call: Other Issue: Upcoming Surgery- Patient called to speak with Nurse or Dr. Sweeney- He has some concerns & questions. Physician:Jayjay Sweeney MD Patient was informed that non-urgent calls may be returned within the next two business days. Yes Prisca Grove documented in this encounterHolzer Medical Center – [place]05-27-2022 Miscellaneous Notes* Telephone Encounter - Amy Hernandez LPN - 09/14/2021 10:52 AM EDT Patient phones requesting refills as follows: Pending Prescriptions Disp Refills FUROSEMIDE 20 MG TABLET 30 tablet Sig: TAKE 1 TABLET BY MOUTH DAILY AFTER BREAKFAST *FOR SWELLING MEENA: Yes YUDELKA-07/04/21 Labs-07/04/21 NOV-10/08/21 med filled 04/05/21 Please review and advise. Amy Hernandez LPN documented in this encounterHolzer Medical Center – [place]05-25-2022 Miscellaneous Notes* Telephone Encounter - Graciela Manzano LPN - 09/12/2021 4:40 PM EDT Pt. informed. Graciela Manzano LPN * Telephone Encounter - Boo Marina DO - 09/11/2021 3:22 PM EDT This will need to be addressed by Student Outreach Coordinator group as I can't do these procedures in primary care Boo Marina DO * Telephone Encounter - Raya Teixeira Ma - 09/11/2021 1:[address] Marina did review his appointment history 09/21 patient is getting EKG/Xray/and pacemaker checked with cardio. Than 09/25 patient is having surgery for pacemaker removal. [facility] can not do these since invasive. [facility] said in order to do there patient need a new appointment which couldn't be til end . Raya Teixeira Ma * Telephone Encounter - Boo Marina DO - 09/11/2021 12:10 PM EDT Please help patient with coordination of below requests. This is all with Cardiology group needs/follow up Boo Marina DO * Telephone Encounter - Carina Keyes RN - 09/11/2021 11:24 AM EDT Patient reports he received a list of all of his appts from [facility]. Patient noticed there are several appts for him in [place]. Reports there is absolutely no way he can go to [place]- reports he has no money for gas. Asking pcp to call him to discuss this: [phone]. Asking if he can get thesetests done closer to home? documented in this encounterHolzer Medical Center – [place]05-04-2022 Miscellaneous Notes* Telephone Encounter - Kaylyn Loza RN - 08/22/2021 1:44 PM EDT The date of 09-25-[address] Sweeney offered & accepted by patient. Needs OPD, Device Clinic,CXR, & Labs (CBC,BMP,30 day T&S with Confirm) within 30 days prior to procedure date. Please call patient to schedule. * Telephone Encounter - Kaylyn Loza RN - 08/22/2021 1:44 PM EDT ----- Message from Jayjay Sweeney MD sent at 08/20/2021 8:40 AM EDT ----- EPS Lab Request: Device Patient: Thanh Coleman Requested by: Jayjay Sweeney MD Requesting Physician: Jayjay Sweeney MD Procedure Physician: Jayjay Sweeney MD Procedure Requested: PPM upgrade to BIV Indications / Dx for Procedure: CHF Procedure Time Frame: Patient's Convenience Estimated length of case: 1 HOUR Device Company: [employer] Patient: No Type of Bed: LESS THAN 23 HOURS Medication to be stopped(please specify medication/timeframe): Yes hold Elijaneis 1 full day prior. documented in this encounterHolzer Medical Center – [place]05-02-2022 History of Present illness Narrative* Jayjay Sweeney MD - 08/20/2021 8:39 AM EDT device at [facility] RV pacing 60%. EF 45% by OSH TTE. Proceed with generator change with possible LV or LBB lead addition if SC vein is patent. hold Eliquis 1 full day prior. Jayjay Sweeney MD documented in this encounterHolzer Medical Center – [place]03-24-2022 Miscellaneous Notes* Telephone Encounter - Eliza Kay Ma - 07/12/2021 3:44 PM EDT POC was faxed 07/04. Will refax today. 07/12 * Telephone Encounter - Sahara Pathak RN - 07/12/2021 3:23 PM EDT Faith from [facility] called in and reports that she faxed over and POC on 06/29/21. The POC was for 06/28/21 through 08/26/21. She is asking if provider can approve and fax back to the number on the papers. If it cannot be found call her back. Thank you. documented in this encounterHolzer Medical Center – [place]09-25-2020 History of Past illness Narrative* Problem Noted Date Resolved Date Paroxysmal atrial fibrillation 01/14/2020 0 06/22/2020 Albuminuria 05/18/2018 06/22/2020 Stage 3 chronic kidney disease 10/08/2017 0 06/22/2020 Coronary artery disease due to lipid rich plaque 10/08/2017 06/22/2020 COPD (chronic obstructive pu lmonary disease) with chronic bronchitis 07/08/2017 07/02/2021 Multiple vessel coronary artery disease 07/30/19 17 06/22/2020 History of abdominal aortic aneurysm repair 07/2006/22/2020 CKD (chronic kidney disease) 06/19/201607/2020 Allergic rhinitis 06/19/2016 06/22/2020 Encounter for monitoring anti-arrhythmic therapy 08/10/2015 06/22/2020 Cerumen impaction 06/30/2014 06/22/2020 Aortic aneurysm 06/22/2020 Overview: s/p repair AAA Abnormal cholesterol test 2020 COPD (chronic obstructive pulmonary disease) 06/22/2020 H/O right heart catheterization 06/22/2020 High blood pressure 07/29/2016 History of heart attack 06/23/19 21 documented as of this encounter (statuses as of 07/12/2021) [facility] [place] History of Past illness Narrative* Problem Noted Date Resolved Date Paroxysmal atrial fibrillation 01/14/2020 0 06/22/2020 Albuminuria 05/18/2018 06/22/2020 Stage 3 chronic kidney disease 10/08/2017 0 06/22/2020 Coronary artery disease due to lipid rich plaque 10/08/2017 06/22/2020 COPD (chronic obstructive pu lmonary disease) with chronic bronchitis 07/08/2017 07/02/2021 Multiple vessel coronary artery disease 07/30/19 17 06/22/2020 History of abdominal aortic aneurysm repair 07/2006/22/2020 CKD (chronic kidney disease) 06/19/201607/2020 Allergic rhinitis 06/19/2016 06/22/2020 Encounter for monitoring anti-arrhythmic therapy 08/10/2015 06/22/2020 Cerumen impaction 06/30/2014 06/22/2020 Aortic aneurysm 06/22/2020 Overview: s/p repair AAA Abnormal cholesterol test 2020 COPD (chronic obstructive pulmonary disease) 06/22/2020 H/O right heart catheterization 06/22/2020 High blood pressure 07/29/2016 History of heart attack 06/23/19 21 documented as of this encounter (statuses as of 08/16/2021) [facility] [place] of Past illness Narrative* Problem Noted Date Resolved Date Paroxysmal atrial fibrillation 01/14/2020 0 06/22/2020 Albuminuria 05/18/2018 06/22/2020 Stage 3 chronic kidney disease 10/08/2017 0 06/22/2020 Coronary artery disease due to lipid rich plaque 10/08/2017 06/22/2020 COPD (chronic obstructive pu lmonary disease) with chronic bronchitis 07/08/2017 07/02/2021 Multiple vessel coronary artery disease 07/30/1906/22/2020 History of abdominal aortic aneurysm repair 07/2006/22/2020 CKD (chronic kidney disease) 06/19/201607/2020 Allergic rhinitis 06/19/2016 06/22/2020 Encounter for monitoring anti-arrhythmic therapy 08/10/2015 06/22/2020 Cerumen impaction 06/30/2014 06/22/2020 Aortic aneurysm 06/22/2020 Overview: s/p repair AAA Abnormal cholesterol test 2020 COPD (chronic obstructive pulmonary disease) 06/22/2020 H/O right heart catheterization 06/22/2020 High blood pressure 07/29/2016 History of heart attack 06/23/19 21 documented as of this encounter (statuses as of 08/20/2021) [facility] [place] of Past illness Narrative* Problem Noted Date Resolved Date Paroxysmal atrial fibrillation 01/14/2020 0 06/22/2020 Albuminuria 05/18/2018 06/22/2020 Stage 3 chronic kidney disease 10/08/2017 0 06/22/2020 Coronary artery disease due to lipid rich plaque 10/08/2017 06/22/2020 COPD (chronic obstructive pu lmonary disease) with chronic bronchitis 07/08/2017 07/02/2021 Multiple vessel coronary artery disease 07/30/19 17 06/22/2020 History of abdominal aortic aneurysm repair 07/2006/22/2020 CKD (chronic kidney disease) 06/19/201607/2020 Allergic rhinitis 06/19/2016 06/22/2020 Encounter for monitoring anti-arrhythmic therapy 08/10/2015 06/22/2020 Cerumen impaction 06/30/2014 06/22/2020 Aortic aneurysm 06/22/2020 Overview: s/p repair AAA Abnormal cholesterol test 2020 COPD (chronic obstructive pulmonary disease) 06/22/2020 H/O right heart catheterization 06/22/2020 High blood pressure 07/29/2016 History of heart attack 06/23/19 21 documented as of this encounter (statuses as of 08/22/2021) [facility] [place] of Past illness Narrative* Problem Noted Date Resolved Date Paroxysmal atrial fibrillation 01/14/2020 0 06/22/2020 Albuminuria 05/18/2018 06/22/2020 Stage 3 chronic kidney disease 10/08/2017 0 06/22/2020 Coronary artery disease due to lipid rich plaque 10/08/2017 06/22/2020 COPD (chronic obstructive pu lmonary disease) with chronic bronchitis 07/08/2017 07/02/2021 Multiple vessel coronary artery disease 07/30/19 17 06/22/2020 History of abdominal aortic aneurysm repair 07/2006/22/2020 CKD (chronic kidney disease) 06/19/201607/2020 Allergic rhinitis 06/19/2016 06/22/2020 Encounter for monitoring anti-arrhythmic therapy 08/10/2015 06/22/2020 Cerumen impaction 06/30/2014 06/22/2020 Aortic aneurysm 06/22/2020 Overview: s/p repair AAA Abnormal cholesterol test 2020 COPD (chronic obstructive pulmonary disease) 06/22/2020 H/O right heart catheterization 06/22/2020 High blood pressure 07/29/2016 History of heart attack 06/23/19 21 documented as of this encounter (statuses as of 08/22/2021) [facility] [place] of Past illness Narrative* Problem Noted Date Resolved Date Paroxysmal atrial fibrillation 01/14/2020 0 06/22/2020 Albuminuria 05/18/2018 06/22/2020 Stage 3 chronic kidney disease 10/08/2017 0 06/22/2020 Coronary artery disease due to lipid rich plaque 10/08/2017 06/22/2020 COPD (chronic obstructive pu lmonary disease) with chronic bronchitis 07/08/2017 07/02/2021 Multiple vessel coronary artery disease 07/30/19 17 06/22/2020 History of abdominal aortic aneurysm repair 07/2006/22/2020 CKD (chronic kidney disease) 06/19/201607/2020 Allergic rhinitis 06/19/2016 06/22/2020 Encounter for monitoring anti-arrhythmic therapy 08/10/2015 06/22/2020 Cerumen impaction 06/30/2014 06/22/2020 Aortic aneurysm 06/22/2020 Overview: s/p repair AAA Abnormal cholesterol test 2020 COPD (chronic obstructive pulmonary disease) 06/22/2020 H/O right heart catheterization 06/22/2020 High blood pressure 07/29/2016 History of heart attack 06/23/19 21 documented as of this encounter (statuses as of 09/04/2021) [facility] [place] of Past illness Narrative* Problem Noted Date Resolved Date Paroxysmal atrial fibrillation 01/14/2020 0 06/22/2020 Albuminuria 05/18/2018 06/22/2020 Stage 3 chronic kidney disease 10/08/2017 0 06/22/2020 Coronary artery disease due to lipid rich plaque 10/08/2017 06/22/2020 COPD (chronic obstructive pu lmonary disease) with chronic bronchitis 07/08/2017 07/02/2021 Multiple vessel coronary artery disease 07/30/19 17 06/22/2020 History of abdominal aortic aneurysm repair 07/2006/22/2020 CKD (chronic kidney disease) 06/19/201607/2020 Allergic rhinitis 06/19/2016 06/22/2020 Encounter for monitoring anti-arrhythmic therapy 08/10/2015 06/22/2020 Cerumen impaction 06/30/2014 06/22/2020 Aortic aneurysm 06/22/2020 Overview: s/p repair AAA Abnormal cholesterol test 2020 COPD (chronic obstructive pulmonary disease) 06/22/2020 H/O right heart catheterization 06/22/2020 High blood pressure 07/29/2016 History of heart attack 06/23/19 21 documented as of this encounter (statuses as of 09/12/2021) [facility] [place] of Past illness Narrative* Problem Noted Date Resolved Date Paroxysmal atrial fibrillation 01/14/2020 0 06/22/2020 Albuminuria 05/18/2018 06/22/2020 Stage 3 chronic kidney disease 10/08/2017 0 06/22/2020 Coronary artery disease due to lipid rich plaque 10/08/2017 06/22/2020 COPD (chronic obstructive pu lmonary disease) with chronic bronchitis 07/08/2017 07/02/2021 Multiple vessel coronary artery disease 07/30/19 17 06/22/2020 History of abdominal aortic aneurysm repair 07/2006/22/2020 CKD (chronic kidney disease) 06/19/201607/2020 Allergic rhinitis 06/19/2016 06/22/2020 Encounter for monitoring anti-arrhythmic therapy 08/10/2015 06/22/2020 Cerumen impaction 06/30/2014 06/22/2020 Aortic aneurysm 06/22/2020 Overview: s/p repair AAA Abnormal cholesterol test 2020 COPD (chronic obstructive pulmonary disease) 06/22/2020 H/O right heart catheterization 06/22/2020 High blood pressure 07/29/2016 History of heart attack 06/23/19 21 documented as of this encounter (statuses as of 09/13/2021) [facility] [place]2020 History of Past illness Narrative* Problem Noted Date Resolved Date Paroxysmal atrial fibrillation 01/14/2020 0 06/22/2020 Albuminuria 05/18/2018 06/22/2020 Stage 3 chronic kidney disease 10/08/2017 0 06/22/2020 Coronary artery disease due to lipid rich plaque 10/08/2017 06/22/2020 COPD (chronic obstructive pu lmonary disease) with chronic bronchitis 07/08/2017 07/02/2021 Multiple vessel coronary artery disease 07/30/19 17 06/22/2020 History of abdominal aortic aneurysm repair 07/2006/22/2020 CKD (chronic kidney disease) 06/19/201607/2020 Allergic rhinitis 06/19/2016 06/22/2020 Encounter for monitoring anti-arrhythmic therapy 08/10/2015 06/22/2020 Cerumen impaction 06/30/2014 06/22/2020 Aortic aneurysm 06/22/2020 Overview: s/p repair AAA Abnormal cholesterol test 2020 COPD (chronic obstructive pulmonary disease) 06/22/2020 H/O right heart catheterization 06/22/2020 High blood pressure 07/29/2016 History of heart attack 06/23/19 21 documented as of this encounter (statuses as of 09/14/2021) [facility] [place]2020 History of Past illness Narrative* Problem Noted Date Resolved Date Paroxysmal atrial fibrillation 01/14/2020 0 06/22/2020 Albuminuria 05/18/2018 06/22/2020 Stage 3 chronic kidney disease 10/08/2017 0 06/22/2020 Coronary artery disease due to lipid rich plaque 10/08/2017 06/22/2020 COPD (chronic obstructive pu lmonary disease) with chronic bronchitis 07/08/2017 07/02/2021 Multiple vessel coronary artery disease 07/30/19 17 06/22/2020 History of abdominal aortic aneurysm repair 07/2006/22/2020 CKD (chronic kidney disease) 06/19/201607/2020 Allergic rhinitis 06/19/2016 06/22/2020 Encounter for monitoring anti-arrhythmic therapy 08/10/2015 06/22/2020 Cerumen impaction 06/30/2014 06/22/2020 Aortic aneurysm 06/22/2020 Overview: s/p repair AAA Abnormal cholesterol test 2020 COPD (chronic obstructive pulmonary disease) 06/22/2020 H/O right heart catheterization 06/22/2020 High blood pressure 07/29/2016 History of heart attack 06/23/19 21 documented as of this encounter (statuses as of 09/14/2021) [facility] [place]2020 History of Past illness Narrative* Problem Noted Date Resolved Date Paroxysmal atrial fibrillation 01/14/2020 0 06/22/2020 Albuminuria 05/18/2018 06/22/2020 Stage 3 chronic kidney disease 10/08/2017 0 06/22/2020 Coronary artery disease due to lipid rich plaque 10/08/2017 06/22/2020 COPD (chronic obstructive pu lmonary disease) with chronic bronchitis 07/08/2017 07/02/2021 Multiple vessel coronary artery disease 07/30/19 17 06/22/2020 History of abdominal aortic aneurysm repair 07/2006/22/2020 CKD (chronic kidney disease) 06/19/201607/2020 Allergic rhinitis 06/19/2016 06/22/2020 Encounter for monitoring anti-arrhythmic therapy 08/10/2015 06/22/2020 Cerumen impaction 06/30/2014 06/22/2020 Aortic aneurysm 06/22/2020 Overview: s/p repair AAA Abnormal cholesterol test 2020 COPD (chronic obstructive pulmonary disease) 06/22/2020 H/O right heart catheterization 06/22/2020 High blood pressure 07/29/2016 History of heart attack 06/23/19 21 documented as of this encounter (statuses as of 09/28/2021) [facility] [place]2020 History of Past illness Narrative* Problem Noted Date Resolved Date Paroxysmal atrial fibrillation 01/14/2020 0 06/22/2020 Albuminuria 05/18/2018 06/22/2020 Stage 3 chronic kidney disease 10/08/2017 0 06/22/2020 Coronary artery disease due to lipid rich plaque 10/08/2017 06/22/2020 COPD (chronic obstructive pu lmonary disease) with chronic bronchitis 07/08/2017 07/02/2021 Multiple vessel coronary artery disease 07/30/19 17 06/22/2020 History of abdominal aortic aneurysm repair 07/2006/22/2020 CKD (chronic kidney disease) 06/19/201607/2020 Allergic rhinitis 06/19/2016 06/22/2020 Encounter for monitoring anti-arrhythmic therapy 08/10/2015 06/22/2020 Cerumen impaction 06/30/2014 06/22/2020 Aortic aneurysm 06/22/2020 Overview: s/p repair AAA Abnormal cholesterol test 2020 COPD (chronic obstructive pulmonary disease) 06/22/2020 H/O right heart catheterization 06/22/2020 High blood pressure 07/29/2016 History of heart attack 06/23/19 21 documented as of this encounter (statuses as of 09/28/2021) [facility] [place]2020 History of Past illness Narrative* Problem Noted Date Resolved Date Paroxysmal atrial fibrillation 01/14/2020 0 06/22/2020 Albuminuria 05/18/2018 06/22/2020 Stage 3 chronic kidney disease 10/08/2017 0 06/22/2020 Coronary artery disease due to lipid rich plaque 10/08/2017 06/22/2020 COPD (chronic obstructive pu lmonary disease) with chronic bronchitis 07/08/2017 07/02/2021 Multiple vessel coronary artery disease 07/30/19 17 06/22/2020 History of abdominal aortic aneurysm repair 07/2006/22/2020 CKD (chronic kidney disease) 06/19/201607/2020 Allergic rhinitis 06/19/2016 06/22/2020 Encounter for monitoring anti-arrhythmic therapy 08/10/2015 06/22/2020 Cerumen impaction 06/30/2014 06/22/2020 Aortic aneurysm 06/22/2020 Overview: s/p repair AAA Abnormal cholesterol test 2020 COPD (chronic obstructive pulmonary disease) 06/22/2020 H/O right heart catheterization 06/22/2020 High blood pressure 07/29/2016 History of heart attack 06/23/19 21 documented as of this encounter (statuses as of 10/01/2021) [facility] [place]2020 History of Past illness Narrative* Problem Noted Date Resolved Date Paroxysmal atrial fibrillation 01/14/2020 0 06/22/2020 Albuminuria 05/18/2018 06/22/2020 Stage 3 chronic kidney disease 10/08/2017 0 06/22/2020 Coronary artery disease due to lipid rich plaque 10/08/2017 06/22/2020 Multiple vessel coronary artery disease 07/30/19 17 06/22/2020 History of abdominal aortic aneurysm repair 07/2006/22/2020 CKD (chronic kidney disease) 06/19/201607/2020 Allergic rhinitis 06/19/2016 06/22/2020 Encounter for monitoring anti-arrhythmic therapy 08/10/2015 06/22/2020 Cerumen impaction 06/30/2014 06/22/2020 Aortic aneurysm 06/22/2020 Overview: s/p repair AAA Abnormal cholesterol test 2020 COPD (chronic obstructive pulmonary disease) 06/22/2020 H/O right heart catheterization 06/22/2020 High blood pressure 07/29/2016 History of heart attack 06/23/19 21 documented as of this encounter (statuses as of 10/09/2021) [facility] [place]2020 History of Past illness Narrative* Problem Noted Date Resolved Date Paroxysmal atrial fibrillation 01/14/2020 0 06/22/2020 Albuminuria 05/18/2018 06/22/2020 Stage 3 chronic kidney disease 10/08/2017 0 06/22/2020 Coronary artery disease due to lipid rich plaque 10/08/2017 06/22/2020 Multiple vessel coronary artery disease 07/30/19 17 06/22/2020 History of abdominal aortic aneurysm repair 07/2006/22/2020 CKD (chronic kidney disease) 06/19/201607/2020 Allergic rhinitis 06/19/2016 06/22/2020 Encounter for monitoring anti-arrhythmic therapy 08/10/2015 06/22/2020 Cerumen impaction 06/30/2014 06/22/2020 Aortic aneurysm 06/22/2020 Overview: s/p repair AAA Abnormal cholesterol test 2020 COPD (chronic obstructive pulmonary disease) 06/22/2020 H/O right heart catheterization 06/22/2020 High blood pressure 07/29/2016 History of heart attack 06/23/19 21 documented as of this encounter (statuses as of 10/12/2021) [facility] [place]2020 History of Past illness Narrative* Problem Noted Date Resolved Date Paroxysmal atrial fibrillation 01/14/2020 0 06/22/2020 Albuminuria 05/18/2018 06/22/2020 Stage 3 chronic kidney disease 10/08/2017 0 06/22/2020 Coronary artery disease due to lipid rich plaque 10/08/2017 06/22/2020 Multiple vessel coronary artery disease 07/30/19 17 06/22/2020 History of abdominal aortic aneurysm repair 07/2006/22/2020 CKD (chronic kidney disease) 06/19/201607/2020 Allergic rhinitis 06/19/2016 06/22/2020 Encounter for monitoring anti-arrhythmic therapy 08/10/2015 06/22/2020 Cerumen impaction 06/30/2014 06/22/2020 Aortic aneurysm 06/22/2020 Overview: s/p repair AAA Abnormal cholesterol test 2020 COPD (chronic obstructive pulmonary disease) 06/22/2020 H/O right heart catheterization 06/22/2020 High blood pressure 07/29/2016 History of heart attack 06/23/19 21 documented as of this encounter (statuses as of 10/15/2021) [facility] [place] History of Past illness Narrative* Problem Noted Date Resolved Date Paroxysmal atrial fibrillation 01/14/2020 0 06/22/2020 Albuminuria 05/18/2018 06/22/2020 Stage 3 chronic kidney disease 10/08/2017 0 06/22/2020 Coronary artery disease due to lipid rich plaque 10/08/2017 06/22/2020 Multiple vessel coronary artery disease 07/30/19 17 06/22/2020 History of abdominal aortic aneurysm repair 07/2006/22/2020 CKD (chronic kidney disease) 06/19/201607/2020 Allergic rhinitis 06/19/2016 06/22/2020 Encounter for monitoring anti-arrhythmic therapy 08/10/2015 06/22/2020 Cerumen impaction 06/30/2014 06/22/2020 Aortic aneurysm 06/22/2020 Overview: s/p repair AAA Abnormal cholesterol test 2020 COPD (chronic obstructive pulmonary disease) 06/22/2020 H/O right heart catheterization 06/22/2020 High blood pressure 07/29/2016 History of heart attack 06/23/19 21 documented as of this encounter (statuses as of 10/16/2021) [facility] [place] History of Past illness Narrative* Problem Noted Date Resolved Date Paroxysmal atrial fibrillation 01/14/2020 0 06/22/2020 Albuminuria 05/18/2018 06/22/2020 Stage 3 chronic kidney disease 10/08/2017 0 06/22/2020 Coronary artery disease due to lipid rich plaque 10/08/2017 06/22/2020 Multiple vessel coronary artery disease 07/30/19 17 06/22/2020 History of abdominal aortic aneurysm repair 07/2006/22/2020 CKD (chronic kidney disease) 06/19/201607/2020 Allergic rhinitis 06/19/2016 06/22/2020 Encounter for monitoring anti-arrhythmic therapy 08/10/2015 06/22/2020 Cerumen impaction 06/30/2014 06/22/2020 Aortic aneurysm 06/22/2020 Overview: s/p repair AAA Abnormal cholesterol test 2020 COPD (chronic obstructive pulmonary disease) 06/22/2020 H/O right heart catheterization 06/22/2020 High blood pressure 07/29/2016 History of heart attack 06/23/19 21 documented as of this encounter (statuses as of 10/23/2021) [facility] [place]2020 History of Past illness Narrative* Problem Noted Date Resolved Date Paroxysmal atrial fibrillation 01/14/2020 0 06/22/2020 Albuminuria 05/18/2018 06/22/2020 Stage 3 chronic kidney disease 10/08/2017 0 06/22/2020 Coronary artery disease due to lipid rich plaque 10/08/2017 06/22/2020 Multiple vessel coronary artery disease 07/30/19 17 06/22/2020 History of abdominal aortic aneurysm repair 07/2006/22/2020 CKD (chronic kidney disease) 06/19/201607/2020 Allergic rhinitis 06/19/2016 06/22/2020 Encounter for monitoring anti-arrhythmic therapy 08/10/2015 06/22/2020 Cerumen impaction 06/30/2014 06/22/2020 Aortic aneurysm 06/22/2020 Overview: s/p repair AAA Abnormal cholesterol test 2020 COPD (chronic obstructive pulmonary disease) 06/22/2020 H/O right heart catheterization 06/22/2020 High blood pressure 07/29/2016 History of heart attack 06/23/19 21 documented as of this encounter (statuses as of 11/20/2021) [facility] [place] History of Past illness Narrative* Problem Noted Date Resolved Date Paroxysmal atrial fibrillation 01/14/2020 0 06/22/2020 Albuminuria 05/18/2018 06/22/2020 Stage 3 chronic kidney disease 10/08/2017 0 06/22/2020 Coronary artery disease due to lipid rich plaque 10/08/2017 06/22/2020 Multiple vessel coronary artery disease 07/30/19 17 06/22/2020 History of abdominal aortic aneurysm repair 07/2006/22/2020 CKD (chronic kidney disease) 06/19/201607/2020 Allergic rhinitis 06/19/2016 06/22/2020 Encounter for monitoring anti-arrhythmic therapy 08/10/2015 06/22/2020 Cerumen impaction 06/30/2014 06/22/2020 Aortic aneurysm 06/22/2020 Overview: s/p repair AAA Abnormal cholesterol test 2020 COPD (chronic obstructive pulmonary disease) 06/22/2020 H/O right heart catheterization 06/22/2020 High blood pressure 07/29/2016 History of heart attack 06/23/19 21 documented as of this encounter (statuses as of 11/29/2021) [facility] [place] History of Past illness Narrative* Problem Noted Date Resolved Date Paroxysmal atrial fibrillation 01/14/2020 0 06/22/2020 Albuminuria 05/18/2018 06/22/2020 Stage 3 chronic kidney disease 10/08/2017 0 06/22/2020 Coronary artery disease due to lipid rich plaque 10/08/2017 06/22/2020 Multiple vessel coronary artery disease 07/30/19 17 06/22/2020 History of abdominal aortic aneurysm repair 07/2006/22/2020 CKD (chronic kidney disease) 06/19/201607/2020 Allergic rhinitis 06/19/2016 06/22/2020 Encounter for monitoring anti-arrhythmic therapy 08/10/2015 06/22/2020 Cerumen impaction 06/30/2014 06/22/2020 Aortic aneurysm 06/22/2020 Overview: s/p repair AAA Abnormal cholesterol test 2020 COPD (chronic obstructive pulmonary disease) 06/22/2020 H/O right heart catheterization 06/22/2020 High blood pressure 07/29/2016 History of heart attack 06/23/19 21 documented as of this encounter (statuses as of 11/30/2021) [facility] [place] History of Past illness Narrative* Problem Noted Date Resolved Date Paroxysmal atrial fibrillation 01/14/2020 0 06/22/2020 Albuminuria 05/18/2018 06/22/2020 Stage 3 chronic kidney disease 10/08/2017 0 06/22/2020 Coronary artery disease due to lipid rich plaque 10/08/2017 06/22/2020 Multiple vessel coronary artery disease 07/30/19 17 06/22/2020 History of abdominal aortic aneurysm repair 07/2006/22/2020 CKD (chronic kidney disease) 06/19/201607/2020 Allergic rhinitis 06/19/2016 06/22/2020 Encounter for monitoring anti-arrhythmic therapy 08/10/2015 06/22/2020 Cerumen impaction 06/30/2014 06/22/2020 Aortic aneurysm 06/22/2020 Overview: s/p repair AAA Abnormal cholesterol test 2020 COPD (chronic obstructive pulmonary disease) 06/22/2020 H/O right heart catheterization 06/22/2020 High blood pressure 07/29/2016 History of heart attack 06/23/19 21 documented as of this encounter (statuses as of 12/07/2021) [facility] [place] History of Past illness Narrative* Problem Noted Date Resolved Date Paroxysmal atrial fibrillation 01/14/2020 0 06/22/2020 Albuminuria 05/18/2018 06/22/2020 Stage 3 chronic kidney disease 10/08/2017 0 06/22/2020 Coronary artery disease due to lipid rich plaque 10/08/2017 06/22/2020 Multiple vessel coronary artery disease 07/30/19 17 06/22/2020 History of abdominal aortic aneurysm repair 07/2006/22/2020 CKD (chronic kidney disease) 06/19/201607/2020 Allergic rhinitis 06/19/2016 06/22/2020 Encounter for monitoring anti-arrhythmic therapy 08/10/2015 06/22/2020 Cerumen impaction 06/30/2014 06/22/2020 Aortic aneurysm 06/22/2020 Overview: s/p repair AAA Abnormal cholesterol test 2020 COPD (chronic obstructive pulmonary disease) 06/22/2020 H/O right heart catheterization 06/22/2020 High blood pressure 07/29/2016 History of heart attack 06/23/19 21 documented as of this encounter (statuses as of 12/07/2021) [facility] [place] History of Past illness Narrative* Problem Noted Date Resolved Date Paroxysmal atrial fibrillation 01/14/2020 0 06/22/2020 Albuminuria 05/18/2018 06/22/2020 Stage 3 chronic kidney disease 10/08/2017 0 06/22/2020 Coronary artery disease due to lipid rich plaque 10/08/2017 06/22/2020 Multiple vessel coronary artery disease 07/30/19 17 06/22/2020 History of abdominal aortic aneurysm repair 07/2006/22/2020 CKD (chronic kidney disease) 06/19/201607/2020 Allergic rhinitis 06/19/2016 06/22/2020 Encounter for monitoring anti-arrhythmic therapy 08/10/2015 06/22/2020 Cerumen impaction 06/30/2014 06/22/2020 Aortic aneurysm 06/22/2020 Overview: s/p repair AAA Abnormal cholesterol test 2020 COPD (chronic obstructive pulmonary disease) 06/22/2020 H/O right heart catheterization 06/22/2020 High blood pressure 07/29/2016 History of heart attack 06/23/19 21 documented as of this encounter (statuses as of 12/07/2021) [facility] [place] History of Past illness Narrative* Problem Noted Date Resolved Date Paroxysmal atrial fibrillation 01/14/2020 0 06/22/2020 Albuminuria 05/18/2018 06/22/2020 Stage 3 chronic kidney disease 10/08/2017 0 06/22/2020 Coronary artery disease due to lipid rich plaque 10/08/2017 06/22/2020 Multiple vessel coronary artery disease 07/30/19 17 06/22/2020 History of abdominal aortic aneurysm repair 07/2006/22/2020 CKD (chronic kidney disease) 06/19/201607/2020 Allergic rhinitis 06/19/2016 06/22/2020 Encounter for monitoring anti-arrhythmic therapy 08/10/2015 06/22/2020 Cerumen impaction 06/30/2014 06/22/2020 Aortic aneurysm 06/22/2020 Overview: s/p repair AAA Abnormal cholesterol test 2020 COPD (chronic obstructive pulmonary disease) 06/22/2020 H/O right heart catheterization 06/22/2020 High blood pressure 07/29/2016 History of heart attack 06/23/19 21 documented as of this encounter (statuses as of 01/09/2022) [facility] [place] History of Past illness Narrative* Problem Noted Date Resolved Date Paroxysmal atrial fibrillation 01/14/2020 0 06/22/2020 Albuminuria 05/18/2018 06/22/2020 Stage 3 chronic kidney disease 10/08/2017 0 06/22/2020 Coronary artery disease due to lipid rich plaque 10/08/2017 06/22/2020 Multiple vessel coronary artery disease 07/30/19 17 06/22/2020 History of abdominal aortic aneurysm repair 07/2006/22/2020 CKD (chronic kidney disease) 06/19/201607/2020 Allergic rhinitis 06/19/2016 06/22/2020 Encounter for monitoring anti-arrhythmic therapy 08/10/2015 06/22/2020 Cerumen impaction 06/30/2014 06/22/2020 Aortic aneurysm 06/22/2020 Overview: s/p repair AAA Abnormal cholesterol test 2020 COPD (chronic obstructive pulmonary disease) 06/22/2020 H/O right heart catheterization 06/22/2020 High blood pressure 07/29/2016 History of heart attack 06/23/19 21 documented as of this encounter (statuses as of 01/10/2022) [facility] [place] History of Past illness Narrative* Problem Noted Date Resolved Date Paroxysmal atrial fibrillation 01/14/2020 0 06/22/2020 Albuminuria 05/18/2018 06/22/2020 Stage 3 chronic kidney disease 10/08/2017 0 06/22/2020 Coronary artery disease due to lipid rich plaque 10/08/2017 06/22/2020 Multiple vessel coronary artery disease 07/30/19 17 06/22/2020 History of abdominal aortic aneurysm repair 07/2006/22/2020 CKD (chronic kidney disease) 06/19/201607/2020 Allergic rhinitis 06/19/2016 06/22/2020 Encounter for monitoring anti-arrhythmic therapy 08/10/2015 06/22/2020 Cerumen impaction 06/30/2014 06/22/2020 Aortic aneurysm 06/22/2020 Overview: s/p repair AAA Abnormal cholesterol test 2020 COPD (chronic obstructive pulmonary disease) 06/22/2020 H/O right heart catheterization 06/22/2020 High blood pressure 07/29/2016 History of heart attack 06/23/19 21 documented as of this encounter (statuses as of 01/29/2022) [facility] [place] History of Past illness Narrative* Problem Noted Date Resolved Date Paroxysmal atrial fibrillation 01/14/2020 0 06/22/2020 Albuminuria 05/18/2018 06/22/2020 Stage 3 chronic kidney disease 10/08/2017 0 06/22/2020 Coronary artery disease due to lipid rich plaque 10/08/2017 06/22/2020 Multiple vessel coronary artery disease 07/30/19 17 06/22/2020 History of abdominal aortic aneurysm repair 07/2006/22/2020 CKD (chronic kidney disease) 06/19/201607/2020 Allergic rhinitis 06/19/2016 06/22/2020 Encounter for monitoring anti-arrhythmic therapy 08/10/2015 06/22/2020 Cerumen impaction 06/30/2014 06/22/2020 Aortic aneurysm 06/22/2020 Overview: s/p repair AAA Abnormal cholesterol test 2020 COPD (chronic obstructive pulmonary disease) 06/22/2020 H/O right heart catheterization 06/22/2020 High blood pressure 07/29/2016 History of heart attack 06/23/19 21 documented as of this encounter (statuses as of 01/29/2022) [facility] [place] History of Past illness Narrative* Problem Noted Date Resolved Date Paroxysmal atrial fibrillation 01/14/2020 0 06/22/2020 Albuminuria 05/18/2018 06/22/2020 Stage 3 chronic kidney disease 10/08/2017 0 06/22/2020 Coronary artery disease due to lipid rich plaque 10/08/2017 06/22/2020 Multiple vessel coronary artery disease 07/30/19 17 06/22/2020 History of abdominal aortic aneurysm repair 07/2006/22/2020 CKD (chronic kidney disease) 06/19/201607/2020 Allergic rhinitis 06/19/2016 06/22/2020 Encounter for monitoring anti-arrhythmic therapy 08/10/2015 06/22/2020 Cerumen impaction 06/30/2014 06/22/2020 Aortic aneurysm 06/22/2020 Overview: s/p repair AAA Abnormal cholesterol test 2020 COPD (chronic obstructive pulmonary disease) 06/22/2020 H/O right heart catheterization 06/22/2020 High blood pressure 07/29/2016 History of heart attack 06/23/19 21 documented as of this encounter (statuses as of 02/13/2022) [facility] [place] History of Past illness Narrative* Problem Noted Date Resolved Date Paroxysmal atrial fibrillation 01/14/2020 0 06/22/2020 Albuminuria 05/18/2018 06/22/2020 Stage 3 chronic kidney disease 10/08/2017 0 06/22/2020 Coronary artery disease due to lipid rich plaque 10/08/2017 06/22/2020 Multiple vessel coronary artery disease 07/30/19 17 06/22/2020 History of abdominal aortic aneurysm repair 07/2006/22/2020 CKD (chronic kidney disease) 06/19/201607/2020 Allergic rhinitis 06/19/2016 06/22/2020 Encounter for monitoring anti-arrhythmic therapy 08/10/2015 06/22/2020 Cerumen impaction 06/30/2014 06/22/2020 Aortic aneurysm 06/22/2020 Overview: s/p repair AAA Abnormal cholesterol test 2020 COPD (chronic obstructive pulmonary disease) 06/22/2020 H/O right heart catheterization 06/22/2020 High blood pressure 07/29/2016 History of heart attack 06/23/19 21 documented as of this encounter (statuses as of 02/14/2022) [facility] [place] History of Past illness Narrative* Problem Noted Date Resolved Date Paroxysmal atrial fibrillation 01/14/2020 0 06/22/2020 Albuminuria 05/18/2018 06/22/2020 Stage 3 chronic kidney disease 10/08/2017 0 06/22/2020 Coronary artery disease due to lipid rich plaque 10/08/2017 06/22/2020 Multiple vessel coronary artery disease 07/30/19 17 06/22/2020 History of abdominal aortic aneurysm repair 07/2006/22/2020 CKD (chronic kidney disease) 06/19/201607/2020 Allergic rhinitis 06/19/2016 06/22/2020 Encounter for monitoring anti-arrhythmic therapy 08/10/2015 06/22/2020 Cerumen impaction 06/30/2014 06/22/2020 Aortic aneurysm 06/22/2020 Overview: s/p repair AAA Abnormal cholesterol test 2020 COPD (chronic obstructive pulmonary disease) 06/22/2020 H/O right heart catheterization 06/22/2020 High blood pressure 07/29/2016 History of heart attack 06/23/19 21 documented as of this encounter (statuses as of 02/19/2022) [facility] [place] History of Past illness Narrative* Problem Noted Date Resolved Date Paroxysmal atrial fibrillation 01/14/2020 0 06/22/2020 Albuminuria 05/18/2018 06/22/2020 Stage 3 chronic kidney disease 10/08/2017 0 06/22/2020 Coronary artery disease due to lipid rich plaque 10/08/2017 06/22/2020 Multiple vessel coronary artery disease 07/30/19 17 06/22/2020 History of abdominal aortic aneurysm repair 07/2006/22/2020 CKD (chronic kidney disease) 06/19/201607/2020 Allergic rhinitis 06/19/2016 06/22/2020 Encounter for monitoring anti-arrhythmic therapy 08/10/2015 06/22/2020 Cerumen impaction 06/30/2014 06/22/2020 Aortic aneurysm 06/22/2020 Overview: s/p repair AAA Abnormal cholesterol test 2020 COPD (chronic obstructive pulmonary disease) 06/22/2020 H/O right heart catheterization 06/22/2020 High blood pressure 07/29/2016 History of heart attack 06/23/19 21 documented as of this encounter (statuses as of 02/25/2022) [facility] [place]2020 History of Past illness Narrative* Problem Noted Date Resolved Date Paroxysmal atrial fibrillation 01/14/2020 0 06/22/2020 Albuminuria 05/18/2018 06/22/2020 Stage 3 chronic kidney disease 10/08/2017 0 06/22/2020 Coronary artery disease due to lipid rich plaque 10/08/2017 06/22/2020 Multiple vessel coronary artery disease 07/30/19 17 06/22/2020 History of abdominal aortic aneurysm repair 07/2006/22/2020 CKD (chronic kidney disease) 06/19/201607/2020 Allergic rhinitis 06/19/2016 06/22/2020 Encounter for monitoring anti-arrhythmic therapy 08/10/2015 06/22/2020 Cerumen impaction 06/30/2014 06/22/2020 Aortic aneurysm 06/22/2020 Overview: s/p repair AAA Abnormal cholesterol test 2020 COPD (chronic obstructive pulmonary disease) 06/22/2020 H/O right heart catheterization 06/22/2020 High blood pressure 07/29/2016 History of heart attack 06/23/19 21 documented as of this encounter (statuses as of 02/27/2022) [facility] [place]2020 History of Past illness Narrative* Problem Noted Date Resolved Date Paroxysmal atrial fibrillation 01/14/2020 0 06/22/2020 Albuminuria 05/18/2018 06/22/2020 Stage 3 chronic kidney disease 10/08/2017 0 06/22/2020 Coronary artery disease due to lipid rich plaque 10/08/2017 06/22/2020 Multiple vessel coronary artery disease 07/30/19 17 06/22/2020 History of abdominal aortic aneurysm repair 07/2006/22/2020 CKD (chronic kidney disease) 06/19/201607/2020 Allergic rhinitis 06/19/2016 06/22/2020 Encounter for monitoring anti-arrhythmic therapy 08/10/2015 06/22/2020 Cerumen impaction 06/30/2014 06/22/2020 Aortic aneurysm 06/22/2020 Overview: s/p repair AAA Abnormal cholesterol test 2020 COPD (chronic obstructive pulmonary disease) 06/22/2020 H/O right heart catheterization 06/22/2020 High blood pressure 07/29/2016 History of heart attack 06/23/19 21 documented as of this encounter (statuses as of 02/28/2022) [facility] [place]2020 History of Past illness Narrative* Problem Noted Date Resolved Date Paroxysmal atrial fibrillation 01/14/2020 0 06/22/2020 Albuminuria 05/18/2018 06/22/2020 Stage 3 chronic kidney disease 10/08/2017 0 06/22/2020 Coronary artery disease due to lipid rich plaque 10/08/2017 06/22/2020 Multiple vessel coronary artery disease 07/30/19 17 06/22/2020 History of abdominal aortic aneurysm repair 07/2006/22/2020 CKD (chronic kidney disease) 06/19/201607/2020 Allergic rhinitis 06/19/2016 06/22/2020 Encounter for monitoring anti-arrhythmic therapy 08/10/2015 06/22/2020 Cerumen impaction 06/30/2014 06/22/2020 Aortic aneurysm 06/22/2020 Overview: s/p repair AAA Abnormal cholesterol test 2020 COPD (chronic obstructive pulmonary disease) 06/22/2020 H/O right heart catheterization 06/22/2020 High blood pressure 07/29/2016 History of heart attack 06/23/19 21 documented as of this encounter (statuses as of 03/01/2022) [facility] [place]2020 History of Past illness Narrative* Problem Noted Date Resolved Date Paroxysmal atrial fibrillation 01/14/2020 0 06/22/2020 Albuminuria 05/18/2018 06/22/2020 Stage 3 chronic kidney disease 10/08/2017 0 06/22/2020 Coronary artery disease due to lipid rich plaque 10/08/2017 06/22/2020 Multiple vessel coronary artery disease 07/30/19 17 06/22/2020 History of abdominal aortic aneurysm repair 07/2006/22/2020 CKD (chronic kidney disease) 06/19/201607/2020 Allergic rhinitis 06/19/2016 06/22/2020 Encounter for monitoring anti-arrhythmic therapy 08/10/2015 06/22/2020 Cerumen impaction 06/30/2014 06/22/2020 Aortic aneurysm 06/22/2020 Overview: s/p repair AAA Abnormal cholesterol test 2020 COPD (chronic obstructive pulmonary disease) 06/22/2020 H/O right heart catheterization 06/22/2020 High blood pressure 07/29/2016 History of heart attack 06/23/19 21 documented as of this encounter (statuses as of 03/01/2022) [facility] [place]2020 History of Past illness Narrative* Problem Noted Date Resolved Date Paroxysmal atrial fibrillation 01/14/2020 0 06/22/2020 Albuminuria 05/18/2018 06/22/2020 Stage 3 chronic kidney disease 10/08/2017 0 06/22/2020 Coronary artery disease due to lipid rich plaque 10/08/2017 06/22/2020 Multiple vessel coronary artery disease 07/30/19 17 06/22/2020 History of abdominal aortic aneurysm repair 07/2006/22/2020 CKD (chronic kidney disease) 06/19/201607/2020 Allergic rhinitis 06/19/2016 06/22/2020 Encounter for monitoring anti-arrhythmic therapy 08/10/2015 06/22/2020 Cerumen impaction 06/30/2014 06/22/2020 Aortic aneurysm 06/22/2020 Overview: s/p repair AAA Abnormal cholesterol test 2020 COPD (chronic obstructive pulmonary disease) 06/22/2020 H/O right heart catheterization 06/22/2020 High blood pressure 07/29/2016 History of heart attack 06/23/19 21 documented as of this encounter (statuses as of 03/01/2022) [facility] [place]2020 History of Past illness Narrative* Problem Noted Date Resolved Date Paroxysmal atrial fibrillation 01/14/2020 0 06/22/2020 Albuminuria 05/18/2018 06/22/2020 Stage 3 chronic kidney disease 10/08/2017 0 06/22/2020 Coronary artery disease due to lipid rich plaque 10/08/2017 06/22/2020 Multiple vessel coronary artery disease 07/30/19 17 06/22/2020 History of abdominal aortic aneurysm repair 07/2006/22/2020 CKD (chronic kidney disease) 06/19/201607/2020 Allergic rhinitis 06/19/2016 06/22/2020 Encounter for monitoring anti-arrhythmic therapy 08/10/2015 06/22/2020 Cerumen impaction 06/30/2014 06/22/2020 Aortic aneurysm 06/22/2020 Overview: s/p repair AAA Abnormal cholesterol test 2020 COPD (chronic obstructive pulmonary disease) 06/22/2020 H/O right heart catheterization 06/22/2020 High blood pressure 07/29/2016 History of heart attack 06/23/19 21 documented as of this encounter (statuses as of 03/05/2022) [facility] [place]2020 History of Past illness Narrative* Problem Noted Date Resolved Date Paroxysmal atrial fibrillation 01/14/2020 0 06/22/2020 Albuminuria 05/18/2018 06/22/2020 Stage 3 chronic kidney disease 10/08/2017 0 06/22/2020 Coronary artery disease due to lipid rich plaque 10/08/2017 06/22/2020 Multiple vessel coronary artery disease 07/30/19 17 06/22/2020 History of abdominal aortic aneurysm repair 07/2006/22/2020 CKD (chronic kidney disease) 06/19/201607/2020 Allergic rhinitis 06/19/2016 06/22/2020 Encounter for monitoring anti-arrhythmic therapy 08/10/2015 06/22/2020 Cerumen impaction 06/30/2014 06/22/2020 Aortic aneurysm 06/22/2020 Overview: s/p repair AAA Abnormal cholesterol test 2020 COPD (chronic obstructive pulmonary disease) 06/22/2020 H/O right heart catheterization 06/22/2020 High blood pressure 07/29/2016 History of heart attack 06/23/19 documented as of this encounter (statuses as of 03/18/2022) [facility] [place]2020 History of Past illness Narrative* Problem Noted Date Resolved Date Paroxysmal atrial fibrillation 01/14/2020 0 06/22/2020 Albuminuria 05/18/2018 06/22/2020 Stage 3 chronic kidney disease 10/08/2017 0 06/22/2020 Coronary artery disease due to lipid rich plaque 10/08/2017 06/22/2020 Multiple vessel coronary artery disease 07/30/19 17 06/22/2020 History of abdominal aortic aneurysm repair 07/2006/22/2020 CKD (chronic kidney disease) 06/19/201607/2020 Allergic rhinitis 06/19/2016 06/22/2020 Encounter for monitoring anti-arrhythmic therapy 08/10/2015 06/22/2020 Cerumen impaction 06/30/2014 06/22/2020 Aortic aneurysm 06/22/2020 Overview: s/p repair AAA Abnormal cholesterol test 2020 COPD (chronic obstructive pulmonary disease) 06/22/2020 H/O right heart catheterization 06/22/2020 High blood pressure 07/29/2016 History of heart attack 06/23/19 21 documented as of this encounter (statuses as of 04/10/2022) [facility] [place]2020 History of Past illness Narrative* Problem Noted Date Resolved Date Paroxysmal atrial fibrillation 01/14/2020 0 06/22/2020 Albuminuria 05/18/2018 06/22/2020 Stage 3 chronic kidney disease 10/08/2017 0 06/22/2020 Coronary artery disease due to lipid rich plaque 10/08/2017 06/22/2020 Multiple vessel coronary artery disease 07/30/19 17 06/22/2020 History of abdominal aortic aneurysm repair 07/2006/22/2020 CKD (chronic kidney disease) 06/19/201607/2020 Allergic rhinitis 06/19/2016 06/22/2020 Encounter for monitoring anti-arrhythmic therapy 08/10/2015 06/22/2020 Cerumen impaction 06/30/2014 06/22/2020 Aortic aneurysm 06/22/2020 Overview: s/p repair AAA Abnormal cholesterol test 2020 COPD (chronic obstructive pulmonary disease) 06/22/2020 H/O right heart catheterization 06/22/2020 High blood pressure 07/29/2016 History of heart attack 06/23/19 21 documented as of this encounter (statuses as of 04/14/2022) [facility] [place]2020 History of Past illness Narrative* Problem Noted Date Resolved Date Paroxysmal atrial fibrillation 01/14/2020 0 06/22/2020 Albuminuria 05/18/2018 06/22/2020 Stage 3 chronic kidney disease 10/08/2017 0 06/22/2020 Coronary artery disease due to lipid rich plaque 10/08/2017 06/22/2020 Multiple vessel coronary artery disease 07/30/1906/22/2020 History of abdominal aortic aneurysm repair 07/2006/22/2020 CKD (chronic kidney disease) 06/19/201607/2020 Allergic rhinitis 06/19/2016 06/22/2020 Encounter for monitoring anti-arrhythmic therapy 08/10/2015 06/22/2020 Cerumen impaction 06/30/2014 06/22/2020 Aortic aneurysm 06/22/2020 Overview: s/p repair AAA Abnormal cholesterol test 2020 COPD (chronic obstructive pulmonary disease) 06/22/2020 H/O right heart catheterization 06/22/2020 High blood pressure 07/29/2016 History of heart attack 06/23/19 21 documented as of this encounter (statuses as of 04/26/2022) [facility] [place]2020 History of Past illness Narrative* Problem Noted Date Resolved Date Paroxysmal atrial fibrillation 01/14/2020 0 06/22/2020 Albuminuria 05/18/2018 06/22/2020 Stage 3 chronic kidney disease 10/08/2017 0 06/22/2020 Coronary artery disease due to lipid rich plaque 10/08/2017 06/22/2020 Multiple vessel coronary artery disease 07/30/19 17 06/22/2020 History of abdominal aortic aneurysm repair 07/2006/22/2020 CKD (chronic kidney disease) 06/19/201607/2020 Allergic rhinitis 06/19/2016 06/22/2020 Encounter for monitoring anti-arrhythmic therapy 08/10/2015 06/22/2020 Cerumen impaction 06/30/2014 06/22/2020 Aortic aneurysm 06/22/2020 Overview: s/p repair AAA Abnormal cholesterol test 2020 COPD (chronic obstructive pulmonary disease) 06/22/2020 H/O right heart catheterization 06/22/2020 High blood pressure 07/29/2016 History of heart attack 06/23/19 21 documented as of this encounter (statuses as of 05/22/2022) [facility] [place]2020 History of Past illness Narrative* Problem Noted Date Resolved Date Paroxysmal atrial fibrillation 01/14/2020 0 06/22/2020 Albuminuria 05/18/2018 06/22/2020 Stage 3 chronic kidney disease 10/08/2017 0 06/22/2020 Coronary artery disease due to lipid rich plaque 10/08/2017 06/22/2020 Multiple vessel coronary artery disease 07/30/19 17 06/22/2020 History of abdominal aortic aneurysm repair 07/2006/22/2020 CKD (chronic kidney disease) 06/19/201607/2020 Allergic rhinitis 06/19/2016 06/22/2020 Encounter for monitoring anti-arrhythmic therapy 08/10/2015 06/22/2020 Cerumen impaction 06/30/2014 06/22/2020 Aortic aneurysm 06/22/2020 Overview: s/p repair AAA Abnormal cholesterol test 2020 COPD (chronic obstructive pulmonary disease) 06/22/2020 H/O right heart catheterization 06/22/2020 High blood pressure 07/29/2016 History of heart attack 06/23/19 21 documented as of this encounter (statuses as of 07/04/2022) [facility] [place]2020 History of Past illness Narrative* Problem Noted Date Resolved Date Paroxysmal atrial fibrillation 01/14/2020 0 06/22/2020 Albuminuria 05/18/2018 06/22/2020 Stage 3 chronic kidney disease 10/08/2017 0 06/22/2020 Coronary artery disease due to lipid rich plaque 10/08/2017 06/22/2020 Multiple vessel coronary artery disease 07/30/19 17 06/22/2020 History of abdominal aortic aneurysm repair 07/2006/22/2020 CKD (chronic kidney disease) 06/19/201607/2020 Allergic rhinitis 06/19/2016 06/22/2020 Encounter for monitoring anti-arrhythmic therapy 08/10/2015 06/22/2020 Cerumen impaction 06/30/2014 06/22/2020 Aortic aneurysm 06/22/2020 Overview: s/p repair AAA Abnormal cholesterol test 2020 COPD (chronic obstructive pulmonary disease) 06/22/2020 H/O right heart catheterization 06/22/2020 High blood pressure 07/29/2016 History of heart attack 06/23/19 21 documented as of this encounter (statuses as of 07/08/2022) [facility] [place]2020 History of Past illness Narrative* Problem Noted Date Resolved Date Paroxysmal atrial fibrillation 01/14/2020 0 06/22/2020 Albuminuria 05/18/2018 06/22/2020 Stage 3 chronic kidney disease 10/08/2017 0 06/22/2020 Coronary artery disease due to lipid rich plaque 10/08/2017 06/22/2020 Multiple vessel coronary artery disease 07/30/19 17 06/22/2020 History of abdominal aortic aneurysm repair 07/2006/22/2020 CKD (chronic kidney disease) 06/19/201607/2020 Allergic rhinitis 06/19/2016 06/22/2020 Encounter for monitoring anti-arrhythmic therapy 08/10/2015 06/22/2020 Cerumen impaction 06/30/2014 06/22/2020 Aortic aneurysm 06/22/2020 Overview: s/p repair AAA Abnormal cholesterol test 2020 COPD (chronic obstructive pulmonary disease) 06/22/2020 H/O right heart catheterization 06/22/2020 High blood pressure 07/29/2016 History of heart attack 06/23/19 21 documented as of this encounter (statuses as of 07/25/2022) [facility] [place]2020 History of Past illness Narrative* Problem Noted Date Resolved Date Paroxysmal atrial fibrillation 01/14/2020 0 06/22/2020 Albuminuria 05/18/2018 06/22/2020 Stage 3 chronic kidney disease 10/08/2017 0 06/22/2020 Coronary artery disease due to lipid rich plaque 10/08/2017 06/22/2020 Multiple vessel coronary artery disease 07/30/19 17 06/22/2020 History of abdominal aortic aneurysm repair 07/2006/22/2020 CKD (chronic kidney disease) 06/19/201607/2020 Allergic rhinitis 06/19/2016 06/22/2020 Encounter for monitoring anti-arrhythmic therapy 08/10/2015 06/22/2020 Cerumen impaction 06/30/2014 06/22/2020 Aortic aneurysm 06/22/2020 Overview: s/p repair AAA Abnormal cholesterol test 2020 COPD (chronic obstructive pulmonary disease) 06/22/2020 H/O right heart catheterization 06/22/2020 High blood pressure 07/29/2016 History of heart attack 06/23/19 21 documented as of this encounter (statuses as of 08/30/2022) [facility] [place]2020 History of Past illness Narrative* Problem Noted Date Resolved Date Paroxysmal atrial fibrillation 01/14/2020 0 06/22/2020 Albuminuria 05/18/2018 06/22/2020 Stage 3 chronic kidney disease 10/08/2017 0 06/22/2020 Coronary artery disease due to lipid rich plaque 10/08/2017 06/22/2020 Multiple vessel coronary artery disease 07/30/19 17 06/22/2020 History of abdominal aortic aneurysm repair 07/2006/22/2020 CKD (chronic kidney disease) 06/19/201607/2020 Allergic rhinitis 06/19/2016 06/22/2020 Encounter for monitoring anti-arrhythmic therapy 08/10/2015 06/22/2020 Cerumen impaction 06/30/2014 06/22/2020 Aortic aneurysm 06/22/2020 Overview: s/p repair AAA Abnormal cholesterol test 2020 COPD (chronic obstructive pulmonary disease) 06/22/2020 H/O right heart catheterization 06/22/2020 High blood pressure 07/29/2016 History of heart attack 06/23/19 documented as of this encounter (statuses as of 09/02/2022) [facility] [place]2020 History of Past illness Narrative* Problem Noted Date Resolved Date Paroxysmal atrial fibrillation 01/14/2020 0 06/22/2020 Albuminuria 05/18/2018 06/22/2020 Stage 3 chronic kidney disease 10/08/2017 0 06/22/2020 Coronary artery disease due to lipid rich plaque 10/08/2017 06/22/2020 Multiple vessel coronary artery disease 07/30/19 17 06/22/2020 History of abdominal aortic aneurysm repair 07/2006/22/2020 CKD (chronic kidney disease) 06/19/201607/2020 Allergic rhinitis 06/19/2016 06/22/2020 Encounter for monitoring anti-arrhythmic therapy 08/10/2015 06/22/2020 Cerumen impaction 06/30/2014 06/22/2020 Aortic aneurysm 06/22/2020 Overview: s/p repair AAA Abnormal cholesterol test 2020 COPD (chronic obstructive pulmonary disease) 06/22/2020 H/O right heart catheterization 06/22/2020 High blood pressure 07/29/2016 History of heart attack 06/23/19 21 documented as of this encounter (statuses as of 09/27/2022) [facility] [place]2020 History of Past illness Narrative* Problem Noted Date Resolved Date Paroxysmal atrial fibrillation 01/14/2020 0 06/22/2020 Albuminuria 05/18/2018 06/22/2020 Stage 3 chronic kidney disease 10/08/2017 0 06/22/2020 Coronary artery disease due to lipid rich plaque 10/08/2017 06/22/2020 Multiple vessel coronary artery disease 07/30/19 17 06/22/2020 History of abdominal aortic aneurysm repair 07/2006/22/2020 CKD (chronic kidney disease) 06/19/201607/2020 Allergic rhinitis 06/19/2016 06/22/2020 Encounter for monitoring anti-arrhythmic therapy 08/10/2015 06/22/2020 Cerumen impaction 06/30/2014 06/22/2020 Aortic aneurysm 06/22/2020 Overview: s/p repair AAA Abnormal cholesterol test 2020 COPD (chronic obstructive pulmonary disease) 06/22/2020 H/O right heart catheterization 06/22/2020 High blood pressure 07/29/2016 History of heart attack 06/23/19 21 documented as of this encounter (statuses as of 10/09/2022) [facility] [place]2020 History of Past illness Narrative* Problem Noted Date Resolved Date Paroxysmal atrial fibrillation 01/14/2020 0 06/22/2020 Albuminuria 05/18/2018 06/22/2020 Stage 3 chronic kidney disease 10/08/2017 0 06/22/2020 Coronary artery disease due to lipid rich plaque 10/08/2017 06/22/2020 Multiple vessel coronary artery disease 07/30/19 17 06/22/2020 History of abdominal aortic aneurysm repair 07/2006/22/2020 CKD (chronic kidney disease) 06/19/201607/2020 Allergic rhinitis 06/19/2016 06/22/2020 Encounter for monitoring anti-arrhythmic therapy 08/10/2015 06/22/2020 Cerumen impaction 06/30/2014 06/22/2020 Aortic aneurysm 06/22/2020 Overview: s/p repair AAA Abnormal cholesterol test 2020 COPD (chronic obstructive pulmonary disease) 06/22/2020 H/O right heart catheterization 06/22/2020 High blood pressure 07/29/2016 History of heart attack 06/23/19 21 documented as of this encounter (statuses as of 10/09/2022) [facility] [place]2020 History of Past illness Narrative* Problem Noted Date Resolved Date Paroxysmal atrial fibrillation 01/14/2020 0 06/22/2020 Albuminuria 05/18/2018 06/22/2020 Stage 3 chronic kidney disease 10/08/2017 0 06/22/2020 Coronary artery disease due to lipid rich plaque 10/08/2017 06/22/2020 Multiple vessel coronary artery disease 07/30/19 17 06/22/2020 History of abdominal aortic aneurysm repair 07/2006/22/2020 CKD (chronic kidney disease) 06/19/201607/2020 Allergic rhinitis 06/19/2016 06/22/2020 Encounter for monitoring anti-arrhythmic therapy 08/10/2015 06/22/2020 Cerumen impaction 06/30/2014 06/22/2020 Aortic aneurysm 06/22/2020 Overview: s/p repair AAA Abnormal cholesterol test 2020 COPD (chronic obstructive pulmonary disease) 06/22/2020 H/O right heart catheterization 06/22/2020 High blood pressure 07/29/2016 History of heart attack 06/23/19 21 documented as of this encounter (statuses as of 10/22/2022) [facility] [place]2020 History of Past illness Narrative* Problem Noted Date Resolved Date Paroxysmal atrial fibrillation 01/14/2020 0 06/22/2020 Albuminuria 05/18/2018 06/22/2020 Stage 3 chronic kidney disease 10/08/2017 0 06/22/2020 Coronary artery disease due to lipid rich plaque 10/08/2017 06/22/2020 Multiple vessel coronary artery disease 07/30/19 17 06/22/2020 History of abdominal aortic aneurysm repair 07/2006/22/2020 CKD (chronic kidney disease) 06/19/201607/2020 Allergic rhinitis 06/19/2016 06/22/2020 Encounter for monitoring anti-arrhythmic therapy 08/10/2015 06/22/2020 Cerumen impaction 06/30/2014 06/22/2020 Aortic aneurysm 06/22/2020 Overview: s/p repair AAA Abnormal cholesterol test 2020 COPD (chronic obstructive pulmonary disease) 06/22/2020 H/O right heart catheterization 06/22/2020 High blood pressure 07/29/2016 History of heart attack 06/23/19 21 documented as of this encounter (statuses as of 10/22/2022) [facility] [place]2020 History of Past illness Narrative* Problem Noted Date Diagnosed Date Resolved Date Paroxysmal atrial fibrillation 01/14/2020 06/22/2020 Albuminuria 05/18/2018 06/22/2020 Stage 3 chronic kidney disease 10/08/2017 06/22/2020 Coronary artery disease due to lipid rich plaque 10/08/2017 06/22/2020 Multiple vessel coronary artery disease 07/29/2016 06/22/2020 History of abdominal aortic aneurysm repair 07/29/2016 06/22/2020 CKD (chronic kidney disease) 06/19/2016 06/22/2020 Allergic rhinitis 06/19/2016 06/22/2020 Encounter for monitoring ant i-arrhythmic therapy 08/10/2015 06/22/2020 Cerumen impaction 06/30/2014 06/22/2020 Aortic aneurysm 06/22/2020 Overview: s/p repair AAA Abnormal cholesterol test COPD (chronic obstructive pulmonary disease) 06/22/2020 H/O right heart catheterization 06/22/2020 High blood pressure 07/30/19 17 History of heart attack 03/0 07/2020 documented as of this encounter (statuses as of 12/04/2022) [facility] [place]2020 History of Past illness Narrative* Problem Noted Date Diagnosed Date Resolved Date Paroxysmal atrial fibrillation 01/14/2020 06/22/2020 Albuminuria 05/18/2018 06/22/2020 Stage 3 chronic kidney disease 10/08/2017 06/22/2020 Coronary artery disease due to lipid rich plaque 10/08/2017 06/22/2020 Multiple vessel coronary artery disease 07/29/2016 06/22/2020 History of abdominal aortic aneurysm repair 07/29/2016 06/22/2020 CKD (chronic kidney disease) 06/19/2016 06/22/2020 Allergic rhinitis 06/19/2016 06/22/2020 Encounter for monitoring ant i-arrhythmic therapy 08/10/2015 06/22/2020 Cerumen impaction 06/30/2014 06/22/2020 Aortic aneurysm 06/22/2020 Overview: s/p repair AAA Abnormal cholesterol test COPD (chronic obstructive pulmonary disease) 06/22/2020 H/O right heart catheterization 06/22/2020 High blood pressure 07/30/19 17 History of heart attack 03/0 07/2020 documented as of this encounter (statuses as of 12/06/2022) [facility] [place]2020 History of Past illness Narrative* Problem Noted Date Diagnosed Date Resolved Date Paroxysmal atrial fibrillation 01/14/2020 06/22/2020 Albuminuria 05/18/2018 06/22/2020 Stage 3 chronic kidney disease 10/08/2017 06/22/2020 Coronary artery disease due to lipid rich plaque 10/08/2017 06/22/2020 Multiple vessel coronary artery disease 07/29/2016 06/22/2020 History of abdominal aortic aneurysm repair 07/29/2016 06/22/2020 CKD (chronic kidney disease) 06/19/2016 06/22/2020 Allergic rhinitis 06/19/2016 06/22/2020 Encounter for monitoring ant i-arrhythmic therapy 08/10/2015 06/22/2020 Cerumen impaction 06/30/2014 06/22/2020 Aortic aneurysm 06/22/2020 Overview: s/p repair AAA Abnormal cholesterol test COPD (chronic obstructive pulmonary disease) 06/22/2020 H/O right heart catheterization 06/22/2020 High blood pressure 07/30/19 17 History of heart attack 07/2020 documented as of this encounter (statuses as of 12/11/2022) [facility] [place]2020 History of Past illness Narrative* Problem Noted Date Diagnosed Date Resolved Date Paroxysmal atrial fibrillation 01/14/2020 06/22/2020 Albuminuria 05/18/2018 06/22/2020 Stage 3 chronic kidney disease 10/08/2017 06/22/2020 Coronary artery disease due to lipid rich plaque 10/08/2017 06/22/2020 Multiple vessel coronary artery disease 07/29/2016 06/22/2020 History of abdominal aortic aneurysm repair 07/29/2016 06/22/2020 CKD (chronic kidney disease) 06/19/2016 06/22/2020 Allergic rhinitis 06/19/2016 06/22/2020 Encounter for monitoring ant i-arrhythmic therapy 08/10/2015 06/22/2020 Cerumen impaction 06/30/2014 06/22/2020 Aortic aneurysm 06/22/2020 Overview: s/p repair AAA Abnormal cholesterol test COPD (chronic obstructive pulmonary disease) 06/22/2020 H/O right heart catheterization 06/22/2020 High blood pressure 07/30/19 17 History of heart attack 03/0 07/2020 documented as of this encounter (statuses as of 12/12/2022) [facility] History of Past illness Narrative* Problem Noted Date Diagnosed Date Resolved Date Paroxysmal atrial fibrillation 01/14/2020 06/22/2020 Albuminuria 05/18/2018 06/22/2020 Stage 3 chronic kidney disease 10/08/2017 06/22/2020 Coronary artery disease due to lipid rich plaque 10/08/2017 06/22/2020 Multiple vessel coronary artery disease 07/29/2016 06/22/2020 History of abdominal aortic aneurysm repair 07/29/2016 06/22/2020 CKD (chronic kidney disease) 06/19/2016 06/22/2020 Allergic rhinitis 06/19/2016 06/22/2020 Encounter for monitoring ant i-arrhythmic therapy 08/10/2015 06/22/2020 Cerumen impaction 06/30/2014 06/22/2020 Aortic aneurysm 06/22/2020 Overview: s/p repair AAA Abnormal cholesterol test COPD (chronic obstructive pulmonary disease) 06/22/2020 H/O right heart catheterization 06/22/2020 High blood pressure 07/30/19 17 History of heart attack 03/0 07/2020 documented as of this encounter (statuses as of 12/13/2022) [facility] History of Past illness Narrative* Problem Noted Date Diagnosed Date Resolved Date Paroxysmal atrial fibrillation 01/14/2020 06/22/2020 Albuminuria 05/18/2018 06/22/2020 Stage 3 chronic kidney disease 10/08/2017 06/22/2020 Coronary artery disease due to lipid rich plaque 10/08/2017 06/22/2020 Multiple vessel coronary artery disease 07/29/2016 06/22/2020 History of abdominal aortic aneurysm repair 07/29/2016 06/22/2020 CKD (chronic kidney disease) 06/19/2016 06/22/2020 Allergic rhinitis 06/19/2016 06/22/2020 Encounter for monitoring ant i-arrhythmic therapy 08/10/2015 06/22/2020 Cerumen impaction 06/30/2014 06/22/2020 Aortic aneurysm 06/22/2020 Overview: s/p repair AAA Abnormal cholesterol test COPD (chronic obstructive pulmonary disease) 06/22/2020 H/O right heart catheterization 06/22/2020 High blood pressure 07/30/19 17 History of heart attack 03/0 07/2020 documented as of this encounter (statuses as of 12/13/2022) [facility] History of Past illness Narrative* Problem Noted Date Diagnosed Date Resolved Date Paroxysmal atrial fibrillation 01/14/2020 06/22/2020 Albuminuria 05/18/2018 06/22/2020 Stage 3 chronic kidney disease 10/08/2017 06/22/2020 Coronary artery disease due to lipid rich plaque 10/08/2017 06/22/2020 Multiple vessel coronary artery disease 07/29/2016 06/22/2020 History of abdominal aortic aneurysm repair 07/29/2016 06/22/2020 CKD (chronic kidney disease) 06/19/2016 06/22/2020 Allergic rhinitis 06/19/2016 06/22/2020 Encounter for monitoring ant i-arrhythmic therapy 08/10/2015 06/22/2020 Cerumen impaction 06/30/2014 06/22/2020 Aortic aneurysm 06/22/2020 Overview: s/p repair AAA Abnormal cholesterol test COPD (chronic obstructive pulmonary disease) 06/22/2020 H/O right heart catheterization 06/22/2020 High blood pressure 07/30/19 17 History of heart attack 03/0 07/2020 documented as of this encounter (statuses as of 12/16/2022) [facility] History of Past illness Narrative* Problem Noted Date Diagnosed Date Resolved Date Paroxysmal atrial fibrillation 01/14/2020 06/22/2020 Albuminuria 05/18/2018 06/22/2020 Stage 3 chronic kidney disease 10/08/2017 06/22/2020 Coronary artery disease due to lipid rich plaque 10/08/2017 06/22/2020 Multiple vessel coronary artery disease 07/29/2016 06/22/2020 History of abdominal aortic aneurysm repair 07/29/2016 06/22/2020 CKD (chronic kidney disease) 06/19/2016 06/22/2020 Allergic rhinitis 06/19/2016 06/22/2020 Encounter for monitoring ant i-arrhythmic therapy 08/10/2015 06/22/2020 Cerumen impaction 06/30/2014 06/22/2020 Aortic aneurysm 06/22/2020 Overview: s/p repair AAA Abnormal cholesterol test COPD (chronic obstructive pulmonary disease) 06/22/2020 H/O right heart catheterization 06/22/2020 High blood pressure 07/30/19 17 History of heart attack 03/0 07/2020 documented as of this encounter (statuses as of 12/18/2022) [facility] History of Past illness Narrative* Problem Noted Date Diagnosed Date Resolved Date Paroxysmal atrial fibrillation 01/14/2020 06/22/2020 Albuminuria 05/18/2018 06/22/2020 Stage 3 chronic kidney disease 10/08/2017 06/22/2020 Coronary artery disease due to lipid rich plaque 10/08/2017 06/22/2020 Multiple vessel coronary artery disease 07/29/2016 06/22/2020 History of abdominal aortic aneurysm repair 07/29/2016 06/22/2020 CKD (chronic kidney disease) 06/19/2016 06/22/2020 Allergic rhinitis 06/19/2016 06/22/2020 Encounter for monitoring ant i-arrhythmic therapy 08/10/2015 06/22/2020 Cerumen impaction 06/30/2014 06/22/2020 Aortic aneurysm 06/22/2020 Overview: s/p repair AAA Abnormal cholesterol test COPD (chronic obstructive pulmonary disease) 06/22/2020 H/O right heart catheterization 06/22/2020 High blood pressure 07/30/19 17 History of heart attack 03/0 07/2020 documented as of this encounter (statuses as of 02/25/2023) [facility]ments Appointment Date:12/18/2021 10:45:00 AM Scheduled Provider: Location:[facility] Appointment Type:CV OV Incision Check Appointment Date:03/06/2022 11:15:00 AM Scheduled Provider: Location:[facility] Appointment Type:CV Office Procedure ICD Appointment Date:06/06/2022 10:00:00 AM Scheduled Provider: Location:[facility] Appointment Type:CV Remote Procedure [facility] Evaluation + Plan [facility] Evaluation + Plan note Future Appointments Appointment Date:02/11/2023 03:45:00 PM Scheduled Provider:Johnny VILLEDA MD [facility] Type:Cardiology Follow Up (FT) Future Scheduled Tests Laboratory* Lipid Panel 01/03/23 Radiology* Echo Transthoracic [facility]03[facility] Future App[facility]ments Appointment Date:03/14/2023 03:45:00 PM Scheduled Provider:Johnny [facility]ILLEDA MD [facility] Type:Cardiology Follow Up (FT) Future Scheduled Tests Laboratory* CBC w/ Auto Diff 02/11/23 Radiology* NM Myocardial Spect Rest/Stress 1 Day 02/11/23 [facility] Future Appointments Appointment Date:03/11/2023 01:00:00 PM Scheduled Provider:Pat Castro CNP Location:[facility] Appointment Type:BADH Follow Up Appointment Date:03/14/2023 03:45:00 PM Scheduled Provider:Johnny VILLEDA MD [facility] Type:Cardiology Follow Up (FT) Future Scheduled Tests Laboratory* CBC w/ Auto Diff 02/11/23 Radiology* NM Myocardial Spect Rest/Stress 1 Day 02/11/23 [facility] Evaluation + Plan note Future Appointments Appointment Date:03/11/2023 01:00:00 PM Scheduled Provider:Pat Castro CNP Location:[facility] Appointment Type:BADH Follow Up Appointment Date:03/27/2023 01:00:00 PM Scheduled Provider: [facility] Appoint[facility] Type:NM Myocard Spect Multi Rest/Stress-Res Appointment Date:03/27/2023 02:00:00 PM Scheduled Provider: [facility] Appoint[facility] Type:NM Myocard Spect Multi Rest/Stress - R Appointment Date:03/27/2023 02:30:00 PM Scheduled Provider: [facility] Appointment Type:NM Myocard Spect Multi Rest/Stress-Str Appointment Date:03/27/2023 03:30:00 PM Scheduled Provider: [facility] Appointment Type:NM Myocar Spect Multi Rest/Stress - St Future Scheduled Tests Laboratory* CBC w/ Auto Diff 02/11/23 Radiology* NM Myocardial Spect Rest/Stress 1 Day 03/27/23 [facility] Future Appointments Appointment Date:03/14/2023 09:40:00 AM Scheduled Provider:Nanci Jarvis MD Location:[facility] Appointment Type: Hospital Follow Up w/TCM Appointment Date:03/27/2023 01:00:00 PM Scheduled Provider: [facility] Appointment Type:NM Myocard Spect Multi Rest/Stress-Res Appointment Date:03/27/2023 02:00:00 PM Scheduled Provider: [facility] Appointment Type:NM Myocard Spect Multi Rest/Stress - R Appointment Date:03/27/2023 02:30:00 PM Scheduled Provider: [facility] Appointment Type:NM Myocard Spect Multi Rest/Stress-Str Appointment Date:03/27/2023 03:30:00 PM Scheduled Provider: [facility] Appointment Type:NM Myocar Spect Multi Rest/Stress - St Appointment Date:04/10/2023 01:30:00 PM Scheduled Provider:Johnny VILLEDA MD [facility] Type:Cardiology Follow Up (FT) Appointment Date:05/07/2023 10:45:00 AM Scheduled Provider: Location:[facility] Appointment Type:Surgery FT Future Scheduled Tests Laboratory* TIBC Calculated 03/11/23 * CBC w/ Auto Diff 02/11/23 * Ferritin 03/11/23 * Folate Level 03/11/23 * Iron Level 03/11/23 * Iron Percent Saturation 03/11/23 * Transferrin 03/11/23 Radiology* NM Myocardial Spect Rest/Stress 1 Day 03/27/23 [facility] Evaluation + Plan note Future Appointments Appointment Date:03/27/2023 01:00:00 PM Scheduled Provider: [facility] Appointment Type:NM Myocard Spect Multi Rest/Stress-Res Appointment Date:03/27/2023 02:00:00 PM Scheduled Provider: [facility] Appointment Type:NM Myocard Spect Multi Rest/Stress - R Appointment Date:03/27/2023 02:30:00 PM Scheduled Provider: [facility] Appointment Type:NM Myocard Spect Multi Rest/Stress-Str Appointment Date:03/27/2023 03:30:00 PM Scheduled Provider: [facility] Appointment Type:NM Myocar Spect Multi Rest/Stress - St Appointment Date:04/10/2023 01:30:00 PM Scheduled Provider:Johnny VILLEDA MD [facility] Type:Cardiology Follow Up (FT) Future Scheduled Tests Laboratory* TIBC Calculated 03/11/23 * CBC w/ Auto Diff 02/11/23 * Ferritin 03/11/23 * Folate Level 03/11/23 * Iron Level 03/11/23 * Iron Percent Saturation 03/11/23 * Transferrin 03/11/23 Radiology* NM Myocardial Spect Rest/Stress 1 Day 03/27/23 [facility] [place] Evaluation + Plan note Future Appointments Appointment Date:04/10/2023 01:30:00 PM Scheduled Provider:Johnny VILLEDA MD [facility] Type:Cardiology Follow Up (FT) Future Scheduled Tests Laboratory* TIBC Calculated 03/11/23 * CBC w/ Auto Diff 02/11/23 * Ferritin 03/11/23 * Folate Level 03/11/23 * Iron Level 03/11/23 * Iron Percent Saturation 03/11/23 * Transferrin 03/11/23 [facility] Future Appointments Appointment Date:07/07/2023 03:45:00 PM Scheduled Provider:Johnny VILLEDA MD [facility] Type:Cardiology Follow Up (FT) Future Scheduled Tests Laboratory* TIBC Calculated 03/11/23 * CBC w/ Auto Diff 02/11/23 * Ferritin 03/11/23 * Folate Level 03/11/23 * Iron Level 03/11/23 * Iron Percent Saturation 03/11/23 * Transferrin 03/11/23 [facility] Future Appointments Appointment Date:10/30/2023 02:30:00 PM Scheduled Provider: Location[facility] Appointment Type:NCV Pacemaker (FT) Future Scheduled Tests Laboratory* TIBC Calculated 03/11/23 * CBC w/ Auto Diff 02/11/23 * Ferritin 03/11/23 * Folate Level 03/11/23 * Iron Level 03/11/23 * Iron Percent Saturation 03/11/23 * Transferrin 03/11/23 [facility] Future Appointments Appointment Date:11/13/2023 03:30:00 PM Scheduled Provider:Elijah Turner PA-C Location[facility] Appointment Type:Cardiology Follow Up (FT) Appointment Date:04/22/2024 02:30:00 PM Scheduled Provider: Location:.[facility] Appointment Type:NCV Pacemaker (FT) Future Scheduled Tests Laboratory* TIBC Calculated 03/11/23 * CBC w/ Auto Diff 02/11/23 * Ferritin 03/11/23 * Folate Level 03/11/23 * Iron Level 03/11/23 * Iron Percent Saturation 03/11/23 * Transferrin 03/11/23 [facility] Future Appointments Appointment Date:02/16/2024 03:45:00 PM Scheduled Provider:Brady Marquez MD Location[facility] Appointment Type:Cardiology Follow Up (FT) Appointment Date:04/22/2024 02:30:00 PM Scheduled Provider: Location[facility] Appointment Type:NCV Pacemaker (FT) Future Scheduled Tests Laboratory* TIBC Calculated 03/11/23 * CBC w/ Auto Diff 02/11/23 * Ferritin 03/11/23 * Folate Level 03/11/23 * Iron Level 03/11/23 * Iron Percent Saturation 03/11/23 * Transferrin 03/11/23 [facility] Evaluation note* Diagnosis Chronic systolic congestive heart failure (HCC)- Primary Chronic systolic heart failure [facility] Diagnosis Numbness of toes- Primary Disturbance of skin sensation Neuropathy Mononeuritis of unspecified site 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 [facility] Diagnosis Eczema of both external ears- Primary Chronic eczematous otitis externa of both ears [facility] Eyelid lesion- Primary Unspecified disorder of eyelid Squamous blepharitis of upper and lower eyelids of both eyes Pseudophakia of both eyes Lens replaced by other means Right epiretinal membrane Macular puckering of 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) Peripheral vascular disease, unspecified [facility] Diagnosis Dyslipidemia Other and unspecified hyperlipidemia Atrial fibrillation, persistent (HCC) Atrial fibrillation [facility] Diagnosis Chronic combined systolic and diastolic congestive heart failure (HCC)- Primary Chronic combined systolic and diastolic heart failure Need for influenza vaccination Need for prophylactic vaccination and inoculation against influenza Need for COVID-19 vaccine Seborrheic dermatitis of scalp Other seborrheic dermatitis Vitamin B12 deficiency Other B-complex deficiencies Vitamin D deficiency Unspecified vitamin D deficiency Atrial fibrillation, persistent (HCC) Atrial fibrillation Elevated brain natriuretic peptide (BNP) level Other nonspecific findings on examination of blood Dyslipidemia Other and unspecified hyperlipidemia Neuropathy Mononeuritis of unspecified site Eyelid lesion Unspecified disorder of eyelid 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 without exacerbation IFG (impaired fasting glucose) Impaired fasting glucose DANIEL (generalized anxiety disorder) Generalized anxiety disorder Tobacco use Tobacco use disorder Stage 3b chronic kidney disease (HCC) [facility] Elevated serum creatinine- Primary Other nonspecific findings on examination of blood Stage 3b chronic kidney disease (HCC) [facility] Diagnosis Intermediate stage nonexudative age-related macular degeneration of both eyes- Primary Corneal guttata of both eyes Eyelid lesion Unspecified disorder of eyelid Squamous blepharitis of upper and lower eyelids of both eyes Pseudophakia of both eyes Lens replaced by other means Right epiretinal membrane Macular puckering of retina Vitreous degeneration and detachment of both eyes [facility] Neoplasm of unspecified behavior of bone, soft tissue, and skin- Primary [facility] Diagnosis Basal cell carcinoma (BCC) of skin of left lower eyelid including canthus- Primary [facility] Diagnosis Basal cell carcinoma (BCC) of skin of left lower eyelid including canthus- Primary Basal cell carcinoma (BCC) of skin of left lower eyelid including canthus [facility]* Diagnosis Hypertriglyceridemia Pure hyperglyceridemia [facility] Diagnosis Hypertriglyceridemia Pure hyperglyceridemia [facility]* Diagnosis Post-operative state- Primary Other postprocedural status Wound dehiscence Disruption of external operation (surgical) wound [facility]* Diagnosis Atrial fibrillation, persistent (HCC) Atrial fibrillation [facility]* Diagnosis Essential hypertension- Primary Unspecified essential hypertension 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 without exacerbation Hypertriglyceridemia Pure hyperglyceridemia Vitamin D deficiency Unspecified vitamin D deficiency Dyslipidemia Other and unspecified hyperlipidemia Atrial fibrillation, persistent (HCC) Atrial fibrillation Screening for prostate cancer Special screening for malignant neoplasm of prostate DANIEL (generalized anxiety disorder) Generalized anxiety disorder [facility] Diagnosis Elevated serum creatinine- Primary Other nonspecific findings on examination of blood [facility] Diagnosis DANIEL (generalized anxiety disorder) Generalized anxiety disorder [facility]* Diagnosis Memory changes- Primary Memory loss Age-related physical debility 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 of psychosis Ischemic stroke (HCC) Forgetfulness Other general symptoms DANIEL (generalized anxiety disorder) Generalized anxiety disorder Mental disability Unspecified intellectual disabilities Hypertriglyceridemia Pure hyperglyceridemia [facility]* Diagnosis 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)- Primary Pain and swelling of toe of right foot Chronic combined systolic and diastolic congestive heart failure (HCC) Chronic combined systolic and diastolic heart failure Stage 3b chronic kidney disease (HCC) documented in this encounter [facility] course Narrative No data available for this section [facility] Discharge instructions No data available for this section [facility] KAREEM SHEN MD: SIGN, VERIFY Event Display: Pacemaker Removal to EMBEDDED PROCESSOR-P - CV Authored Date: [facility] Note* KAREEM SHEN MD: SIGN, VERIFY Event Display: Ablation RF-CARTO - CV [facility] Progress note No data available for this section [facility] Reason for referral (narrative)* Outpatient Procedure (Routine) - Authorized Specialty Diagnoses / Procedures Referred By Contac t Referred To [facility] Diagnoses Numbness of toes Neuropathy Procedures PVR ANK PRESS [facility] NON-INVAS PHYSIOLOGIC STD EXTREMITY ART 2 LEVEL Zoraida Hodge APRN.CNP [address] [place] [address] [facility] [address] [place] [address] Referral ID Status Reason Start Date Expiration Date Visits Requested Visits Authorized [id number] Authorized Auto-Generat ed Referral 09/28/2021 04/20/2022 1 1 [facility] Referred by: Nanci Jarvis MD [facility] Summary Purpose Family History No Family History Records FoundNo Family History Records FoundNo Family History Records FoundNo Family History Records FoundNo Family History Records FoundNo Family History Records FoundNo Family History Records FoundNo Family History Records FoundNo Family History Records FoundNo Family History Records Found No data available for this section No Family History Records Found No data available for this section No data available for this section No data available for this section No data available for this section No data available for this section No data available for this section No data available for this section No data available for this section No data available for this section No data available for this section No data available for this section No Family History Records FoundNo Family History Records Found Advance Directives No Advanced Directives Records FoundDocuments on File Type Date Recorded 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 Advance Directive(s) 02/25/2020 11:53 AM Advance Directive(s) 01/14/2020 10:59 AM Documents on File Type Date Recorded 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 Advance Directive(s) 02/25/2020 11:53 AM Advance Directive(s) 01/14/2020 10:59 AM Latest Code Status on File Code Status Date Activated Date Inactivated Comments Full Code 12/06/2022 3:06 AM 12/10/2022 8:54 PM Question Answer Comments Full Code Order Discussed With: Patient Reason for Referral Specialty Diagnoses / Procedures Referred By Contac t Referred To Contact Vascular Medicine Diagnoses Numbness of toes Neuropathy Paresthesia of foot, bilateral PVD (peripheral vascular disease) (HCC) Procedures CONSULT TO VASCULAR MEDICINE OFFICE/OUTPATIENT [facility] 60-74 MINUTES Zoraida Hodge APRN.HEALTH INFORMATION SPECIALIST [address] [place] [address] Referral ID Status Reason Start Date Expiration Date Visits Requested Visits Authorized [id number] Pending Review PCP Requested Referral 11/29/2021 11/29/2022 1 1 Specialty Diagnoses / Procedures Referred By Contac t Referred To Contact Nephrology Diagnoses Elevated serum creatinine Stage 3b chronic kidney disease (HCC) Procedures CONSULT TO NEPHROLOGY OFFICE/OUTPATIENT [facility] 60-74 MINUTES Boo Marina, DO [address] [place] [address] Referral ID Status Reason Start Date Expiration Date Visits Requested Visits Authorized [id number] Pending Review PCP Requested Referral 01/09/2022 01/09/2023 1 1 Specialty Diagnoses / Procedures Referred By Contac t Referred To Contact Nephrology Diagnoses Elevated serum creatinine Procedures CONSULT TO NEPHROLOGY OFFICE/OUTPATIENT [facility] 60-74 MINUTES Boo Marina, DO [address] [place] [address] Referral ID Status Reason Start Date Expiration Date Visits Requested Visits Authorized [id number] Authorized PCP Requested Referral 10/17/2022 10/17/2023 1 1 Medications Administered Section Active Administered Medications - up to 3 most recent administrations Medication Order MAR Action Action Date Dose Rate Site fluorescein-benoxinate 0.25-0.4 % 1 Drop (FLURESS) 1 Drop, BOTH EYES, DIRECTED, Starting on Fri01/29/22 at 1430, Until Fri01/30/22 at 0159, Administer for applanation tonometry. In the event of a Fluress shortage, administer Valarie-Fluor 1 drop into both eyes as directed for applanation tonometry Given 01/29/2022 2:30 PM EDT 1 Drop PHENYLephrine 2.5 % 1 Drop (AK-DILATE, RAKESH-SYNEPHRINE) 1 Drop, BOTH EYES, DIRECTED, Starting on Fri01/29/22 at 1430, Until Fri01/30/22 at 0159, Administer for dilation PROTECT FROM LIGHT Given 01/29/2022 2:30 PM EDT 1 Drop proparacaine 0.5 % 1 Drop (ALCAINE) 1 Drop, BOTH EYES, DIRECTED, Starting on Fri01/29/22 at 1430, Until Fri01/30/22 at 0159, Administer for pneumo tonometry, tonopen tonometry, or pachymetry. In the event of a proparacaine shortage, administer tetracaine 0.5% ophthalmic drops 1 drop in both eyes as directed for pneumo tonometry, tonopen tonometry, or pachymetry Given 01/29/2022 2:30 PM EDT 1 Drop tropicamide 1 % 1 Drop (MYDRIACYL) 1 Drop, BOTH EYES, DIRECTED, Starting on Fri01/29/22 at 1430, Until Fri01/30/22 at 0159, Administer for dilation Given 01/29/2022 2:30 PM EDT 1 Drop Active Administered Medications - up to 3 most recent administrations Medication Order MAR Action Action Date Dose Rate Site proparacaine 0.5 % 1 Drop (ALCAINE) 1 Drop, BOTH EYES, DIRECTED, Starting on Fri04/10/22 at 1530, Until Fri04/11/22 at 0329, Administer for pneumo tonometry, tonopen tonometry, or pachymetry. In the event of a proparacaine shortage, administer tetracaine 0.5% ophthalmic drops 1 drop in both eyes as directed for pneumo tonometry, tonopen tonometry, or pachymetry Given 04/10/2022 3:30 PM EST 1 Drop Additional Source Comments (unrecognized sect ion and content) No Status Records FoundNo Status Records FoundNo Status Records FoundNo Status Records FoundNo Status Records FoundNo Status Records FoundNo Status Records FoundNo Status Records FoundNo Status Records FoundNo Status Records FoundNo Status Records FoundNo Status Records FoundNo Status Records Found INFORMATION SOURCE (unrecogn ized section and content) DATE CREATED AUTHOR 10/10/2017 [facility] DATE CREATED AUTHOR AUTHOR'S ORGANIZ ATION 10/10/2017 [facility] DATE CREATED AUTHOR AUTHOR'S ORGANIZ ATION 10/13/2017 [facility] DATE CREATED AUTHOR AUTHOR'S ORGANIZ ATION 10/14/2017 [facility] DATE CREATED AUTHOR AUTHOR'S ORGANIZ ATION 03/03/2020 [facility] DATE CREATED AUTHOR AUTHOR'S ORGANIZ ATION 04/27/2020 [facility] DATE CREATED AUTHOR AUTHOR'S ORGANIZ ATION 02/28/2022 [facility] DATE CREATED AUTHOR AUTHOR'S ORGANIZ ATION 09/04/2022 [facility] DATE CREATED AUTHOR AUTHOR'S ORGANIZ ATION 12/15/2022 [facility] DATE CREATED AUTHOR AUTHOR'S ORGANIZ ATION 12/16/2022 [facility] DATE CREATED AUTHOR AUTHOR'S ORGANIZ ATION 02/24/2023 [facility] DATE CREATED AUTHOR AUTHOR'S ORGANIZ ATION 12/05/2023 [facility] DATE CREATED AUTHOR AUTHOR'S ORGANIZ ATION 01/08/2024 [facility] EPIC Source Comments (unrecognize d section and content) In the event this informatio n is protected by the Federal Confidentiality of Alcohol and Drug Abuse Patient Records regulations: The Federal rules restrict any use of the information to criminally investigate or prosecute any alcohol or drug abuse patient.[facility] the event this information is protected by the Federal Confidentiality of Alcohol and Drug Abuse Patient Records regulations: The Federal rules restrict any use of the information to criminally investigate or prosecute any alcohol or drug abuse patient.[facility] the event this information is protected by the Federal Confidentiality of Alcohol and Drug Abuse Patient Records regulations: The Federal rules restrict any use of the information to criminally investigate or prosecute any alcohol or drug abuse patient.[facility] the event this information is protected by the Federal Confidentiality of Alcohol and Drug Abuse Patient Records regulations: The Federal rules restrict any use of the information to criminally investigate or prosecute any alcohol or drug abuse patient.[facility] the event this information is protected by the Federal Confidentiality of Alcohol and Drug Abuse Patient Records regulations: The Federal rules restrict any use of the information to criminally investigate or prosecute any alcohol or drug abuse patient.[facility] the event this information is protected by the Federal Confidentiality of Alcohol and Drug Abuse Patient Records regulations: The Federal rules restrict any use of the information to criminally investigate or prosecute any alcohol or drug abuse patient.[facility] the event this information is protected by the Federal Confidentiality of Alcohol and Drug Abuse Patient Records regulations: The Federal rules restrict any use of the information to criminally investigate or prosecute any alcohol or drug abuse patient.[facility] Jackson[facility] the event this information is protected by the Federal Confidentiality of Alcohol and Drug Abuse Patient Records regulations: The Federal rules restrict any use of the information to criminally investigate or prosecute any alcohol or drug abuse patient.[facility] the event this information is protected by the Federal Confidentiality of Alcohol and Drug Abuse Patient Records regulations: The Federal rules restrict any use of the information to criminally investigate or prosecute any alcohol or drug abuse patient.[facility] the event this information is protected by the Federal Confidentiality of Alcohol and Drug Abuse Patient Records regulations: The Federal rules restrict any use of the information to criminally investigate or prosecute any alcohol or drug abuse patient.[facility] Jackson[facility] the event this information is protected by the Federal Confidentiality of Alcohol and Drug Abuse Patient Records regulations: The Federal rules restrict any use of the information to criminally investigate or prosecute any alcohol or drug abuse patient.[facility] Jackson[facility] the event this information is protected by the Federal Confidentiality of Alcohol and Drug Abuse Patient Records regulations: The Federal rules restrict any use of the information to criminally investigate or prosecute any alcohol or drug abuse patient.[facility] Jackson[facility] the event this information is protected by the Federal Confidentiality of Alcohol and Drug Abuse Patient Records regulations: The Federal rules restrict any use of the information to criminally investigate or prosecute any alcohol or drug abuse patient.[facility] JacksonIn the event this information is protected by the Federal Confidentiality of Alcohol and Drug Abuse Patient Records regulations: The Federal rules restrict any use of the information to criminally investigate or prosecute any alcohol or drug abuse patient.[facility] JacksonIn the event this information is protected by the Federal Confidentiality of Alcohol and Drug Abuse Patient Records regulations: The Federal rules restrict any use of the information to criminally investigate or prosecute any alcohol or drug abuse patient.[facility] JacksonIn the event this information is protected by the Federal Confidentiality of Alcohol and Drug Abuse Patient Records regulations: The Federal rules restrict any use of the information to criminally investigate or prosecute any alcohol or drug abuse patient.[facility] JacksonIn the event this information is protected by the Federal Confidentiality of Alcohol and Drug Abuse Patient Records regulations: The Federal rules restrict any use of the information to criminally investigate or prosecute any alcohol or drug abuse patient.[facility] JacksonIn the event this information is protected by the Federal Confidentiality of Alcohol and Drug Abuse Patient Records regulations: The Federal rules restrict any use of the information to criminally investigate or prosecute any alcohol or drug abuse patient.[facility] JacksonIn the event this information is protected by the Federal Confidentiality of Alcohol and Drug Abuse Patient Records regulations: The Federal rules restrict any use of the information to criminally investigate or prosecute any alcohol or drug abuse patient.[facility] JacksonIn the event this information is protected by the Federal Confidentiality of Alcohol and Drug Abuse Patient Records regulations: The Federal rules restrict any use of the information to criminally investigate or prosecute any alcohol or drug abuse patient.[facility] JacksonIn the event this information is protected by the Federal Confidentiality of Alcohol and Drug Abuse Patient Records regulations: The Federal rules restrict any use of the information to criminally investigate or prosecute any alcohol or drug abuse patient.[facility] JacksonIn the event this information is protected by the Federal Confidentiality of Alcohol and Drug Abuse Patient Records regulations: The Federal rules restrict any use of the information to criminally investigate or prosecute any alcohol or drug abuse patient.[facility] JacksonIn the event this information is protected by the Federal Confidentiality of Alcohol and Drug Abuse Patient Records regulations: The Federal rules restrict any use of the information to criminally investigate or prosecute any alcohol or drug abuse patient.[facility] JacksonIn the event this information is protected by the Federal Confidentiality of Alcohol and Drug Abuse Patient Records regulations: The Federal rules restrict any use of the information to criminally investigate or prosecute any alcohol or drug abuse patient.[facility] JacksonIn the event this information is protected by the Federal Confidentiality of Alcohol and Drug Abuse Patient Records regulations: The Federal rules restrict any use of the information to criminally investigate or prosecute any alcohol or drug abuse patient.[facility] JacksonIn the event this information is protected by the Federal Confidentiality of Alcohol and Drug Abuse Patient Records regulations: The Federal rules restrict any use of the information to criminally investigate or prosecute any alcohol or drug abuse patient.[facility] JacksonIn the event this information is protected by the Federal Confidentiality of Alcohol and Drug Abuse Patient Records regulations: The Federal rules restrict any use of the information to criminally investigate or prosecute any alcohol or drug abuse patient.[facility] JacksonIn the event this information is protected by the Federal Confidentiality of Alcohol and Drug Abuse Patient Records regulations: The Federal rules restrict any use of the information to criminally investigate or prosecute any alcohol or drug abuse patient.[facility] JacksonIn the event this information is protected by the Federal Confidentiality of Alcohol and Drug Abuse Patient Records regulations: The Federal rules restrict any use of the information to criminally investigate or prosecute any alcohol or drug abuse patient.[facility] JacksonIn the event this information is protected by the Federal Confidentiality of Alcohol and Drug Abuse Patient Records regulations: The Federal rules restrict any use of the information to criminally investigate or prosecute any alcohol or drug abuse patient.[facility] JacksonIn the event this information is protected by the Federal Confidentiality of Alcohol and Drug Abuse Patient Records regulations: The Federal rules restrict any use of the information to criminally investigate or prosecute any alcohol or drug abuse patient.[facility] JacksonIn the event this information is protected by the Federal Confidentiality of Alcohol and Drug Abuse Patient Records regulations: The Federal rules restrict any use of the information to criminally investigate or prosecute any alcohol or drug abuse patient.[facility] JacksonIn the event this information is protected by the Federal Confidentiality of Alcohol and Drug Abuse Patient Records regulations: The Federal rules restrict any use of the information to criminally investigate or prosecute any alcohol or drug abuse patient.[facility] JacksonIn the event this information is protected by the Federal Confidentiality of Alcohol and Drug Abuse Patient Records regulations: The Federal rules restrict any use of the information to criminally investigate or prosecute any alcohol or drug abuse patient.[facility] JacksonIn the event this information is protected by the Federal Confidentiality of Alcohol and Drug Abuse Patient Records regulations: The Federal rules restrict any use of the information to criminally investigate or prosecute any alcohol or drug abuse patient.[facility] JacksonIn the event this information is protected by the Federal Confidentiality of Alcohol and Drug Abuse Patient Records regulations: The Federal rules restrict any use of the information to criminally investigate or prosecute any alcohol or drug abuse patient.[facility] JacksonIn the event this information is protected by the Federal Confidentiality of Alcohol and Drug Abuse Patient Records regulations: The Federal rules restrict any use of the information to criminally investigate or prosecute any alcohol or drug abuse patient.[facility] JacksonIn the event this information is protected by the Federal Confidentiality of Alcohol and Drug Abuse Patient Records regulations: The Federal rules restrict any use of the information to criminally investigate or prosecute any alcohol or drug abuse patient.[facility] JacksonIn the event this information is protected by the Federal Confidentiality of Alcohol and Drug Abuse Patient Records regulations: The Federal rules restrict any use of the information to criminally investigate or prosecute any alcohol or drug abuse patient.[facility] JacksonIn the event this information is protected by the Federal Confidentiality of Alcohol and Drug Abuse Patient Records regulations: The Federal rules restrict any use of the information to criminally investigate or prosecute any alcohol or drug abuse patient.[facility] JacksonIn the event this information is protected by the Federal Confidentiality of Alcohol and Drug Abuse Patient Records regulations: The Federal rules restrict any use of the information to criminally investigate or prosecute any alcohol or drug abuse patient.[facility] JacksonIn the event this information is protected by the Federal Confidentiality of Alcohol and Drug Abuse Patient Records regulations: The Federal rules restrict any use of the information to criminally investigate or prosecute any alcohol or drug abuse patient.[facility] JacksonIn the event this information is protected by the Federal Confidentiality of Alcohol and Drug Abuse Patient Records regulations: The Federal rules restrict any use of the information to criminally investigate or prosecute any alcohol or drug abuse patient.[facility] JacksonIn the event this information is protected by the Federal Confidentiality of Alcohol and Drug Abuse Patient Records regulations: The Federal rules restrict any use of the information to criminally investigate or prosecute any alcohol or drug abuse patient.[facility] JacksonIn the event this information is protected by the Federal Confidentiality of Alcohol and Drug Abuse Patient Records regulations: The Federal rules restrict any use of the information to criminally investigate or prosecute any alcohol or drug abuse patient.[facility] JacksonIn the event this information is protected by the Federal Confidentiality of Alcohol and Drug Abuse Patient Records regulations: The Federal rules restrict any use of the information to criminally investigate or prosecute any alcohol or drug abuse patient.[facility] JacksonIn the event this information is protected by the Federal Confidentiality of Alcohol and Drug Abuse Patient Records regulations: The Federal rules restrict any use of the information to criminally investigate or prosecute any alcohol or drug abuse patient.[facility] JacksonIn the event this information is protected by the Federal Confidentiality of Alcohol and Drug Abuse Patient Records regulations: The Federal rules restrict any use of the information to criminally investigate or prosecute any alcohol or drug abuse patient.[facility] JacksonIn the event this information is protected by the Federal Confidentiality of Alcohol and Drug Abuse Patient Records regulations: The Federal rules restrict any use of the information to criminally investigate or prosecute any alcohol or drug abuse patient.[facility] JacksonIn the event this information is protected by the Federal Confidentiality of Alcohol and Drug Abuse Patient Records regulations: The Federal rules restrict any use of the information to criminally investigate or prosecute any alcohol or drug abuse patient.[facility] JacksonIn the event this information is protected by the Federal Confidentiality of Alcohol and Drug Abuse Patient Records regulations: The Federal rules restrict any use of the information to criminally investigate or prosecute any alcohol or drug abuse patient.[facility] JacksonIn the event this information is protected by the Federal Confidentiality of Alcohol and Drug Abuse Patient Records regulations: The Federal rules restrict any use of the information to criminally investigate or prosecute any alcohol or drug abuse patient.[facility] JacksonIn the event this information is protected by the Federal Confidentiality of Alcohol and Drug Abuse Patient Records regulations: The Federal rules restrict any use of the information to criminally investigate or prosecute any alcohol or drug abuse patient.[facility] JacksonIn the event this information is protected by the Federal Confidentiality of Alcohol and Drug Abuse Patient Records regulations: The Federal rules restrict any use of the information to criminally investigate or prosecute any alcohol or drug abuse patient.[facility] JacksonIn the event this information is protected by the Federal Confidentiality of Alcohol and Drug Abuse Patient Records regulations: The Federal rules restrict any use of the information to criminally investigate or prosecute any alcohol or drug abuse patient.[facility] JacksonIn the event this information is protected by the Federal Confidentiality of Alcohol and Drug Abuse Patient Records regulations: The Federal rules restrict any use of the information to criminally investigate or prosecute any alcohol or drug abuse patient.[facility] JacksonIn the event this information is protected by the Federal Confidentiality of Alcohol and Drug Abuse Patient Records regulations: The Federal rules restrict any use of the information to criminally investigate or prosecute any alcohol or drug abuse patient.[facility] JacksonIn the event this information is protected by the Federal Confidentiality of Alcohol and Drug Abuse Patient Records regulations: The Federal rules restrict any use of the information to criminally investigate or prosecute any alcohol or drug abuse patient.[facility] JacksonIn the event this information is protected by the Federal Confidentiality of Alcohol and Drug Abuse Patient Records regulations: The Federal rules restrict any use of the information to criminally investigate or prosecute any alcohol or drug abuse patient.[facility] JacksonIn the event this information is protected by the Federal Confidentiality of Alcohol and Drug Abuse Patient Records regulations: The Federal rules restrict any use of the information to criminally investigate or prosecute any alcohol or drug abuse patient.[facility] JacksonIn the event this information is protected by the Federal Confidentiality of Alcohol and Drug Abuse Patient Records regulations: The Federal rules restrict any use of the information to criminally investigate or prosecute any alcohol or drug abuse patient.[facility] JacksonIn the event this information is protected by the Federal Confidentiality of Alcohol and Drug Abuse Patient Records regulations: The Federal rules restrict any use of the information to criminally investigate or prosecute any alcohol or drug abuse patient.[facility] JacksonIn the event this information is protected by the Federal Confidentiality of Alcohol and Drug Abuse Patient Records regulations: The Federal rules restrict any use of the information to criminally investigate or prosecute any alcohol or drug abuse patient.[facility] JacksonIn the event this information is protected by the Federal Confidentiality of Alcohol and Drug Abuse Patient Records regulations: The Federal rules restrict any use of the information to criminally investigate or prosecute any alcohol or drug abuse patient.[facility] Reason for Visit (unrecogniz ed section and content) Reason Comments Plan of Care Reason Comments Schedule Surgery add CS lead to PPM Reason Comments Appt concerns Reason Comments Refill Request Reason Comments Appointment Patient can't come t o [place] Reason Comments Numbness bilateral feet x day s Ear Problem dry skin on bilatera l ears Specialty Diagnoses / Procedures Referred By Contac t Referred To Contact Family Practice / FAMILY MEDICINE Diagnoses Numbness/tingling bilateral toes--See Triage Note Procedures 4C EST Self Zoraida Hodge APRN.HEALTH INFORMATION SPECIALIST [address] [place] [address] Referral ID Status Reason Start Date Expiration Date Visits Re quested Visits Authorized [id number] Closed 09/28/2021 04/20/2022 1 1 Reason Comments pharmacy questioning ear drop rx Reason Comments Blood Pressure Reason Comments Lump Specialty Diagnoses / Procedures Referred By Contac t Referred To Contact Ophthalmology Diagnoses Eyelid lesion Procedures CONSULT TO OPHTHALMOLOGY OFFICE/OUTPATIENT NEW HIGH MDM 60-74 MINUTES Boo Marina, DO [address] [place] [address] Referral ID Status Reason Start Date Expiration Date V isits Requested Visits Authorized [id number] Closed PCP Requested Referral 10/08/2021 10/08/2022 1 1 Reason Onset Date Comments Refill Request 10/12/2021 Reason Comments Patient Update Reason Comments Results Reason Comments Results Reason Comments Fax Requested Reason Comments Musculoskeletal Problem Reason Onset Date Comments F/U 3 Month Immunizations 01/07/2022 Flu vaccination Specialty Diagnoses / Procedures Referred By Shani xavier Referred To Contact Family Medicine / FAMILY MEDICINE Diagnoses 3 Month follow-up Procedures 4C EST Self Boo Marina DO [address] [place] [address] Referral ID Status Reason Start Date Expiration Date Visits Re quested Visits Authorized [id number] Closed 01/07/2022 04/20/2022 1 1 Reason Comments Non-exudative ARMD Reason Comments LESION, SKIN Reason Comments Question Reason Comments bcc eyelid Reason Comments Medication Problem Reason Comments Post Op Call Reason Onset Date Comments Post Op Call 02/28/2022 Reason Comments Returning Patient's Call Reason Onset Date Comments Refill Request 03/01/2022 Reason Comments Follow Up Reason Comments Post-Op Visit s/p mohs repair left lower lid medial initial defect 02/27/22 Reason Onset Date Comments Refill Request 04/24/2022 Reason Onset Date Comments Refill Request 05/22/2022 Reason Comments 3 month f/up Reason Comments Request Reason Comments Fax Last OV note Reason Comments Appointment Reason Onset Date Comments Refill Request 10/09/2022 Reason Onset Date Comments Refill Request 12/03/2022 Reason Onset Date Comments Transition Of Care 12/11/2022 TCM [facility]10[facility]22 Reason Comments [facility] Main follow up Reason Comments Hospital F/U Stroke, Dementia, ne eds 11/11 home care Reason Comments New Patient New pt here to [facility] follow up from [facility] last FridayDEC 13 from [facility] Reason Onset Date Comments Transition Of Care 12/18/2022 TCM Follow-up day 8 Care Teams (unrecognized sec tion and content) Head Char Filter Tank Tender Relationship Specialty Start Date End Date Boo Marina DO [address] [place], [place] [id number] PCP - General Family Practice 05/27/16 Head Char Filter Tank Tender Relationship Specialty Start Date End Date Boo Marina DO [address] [place] [address] PCP - General Family Practice 05/27/16 Head Char Filter Tank Tender Relationship Specialty Start Date End Date Boo Marina, DO [address] [place] [address] PCP - General Family Practice 05/27/16 Head Char Filter Tank Tender Relationship Specialty Start Date End Date Boo Marina, DO [address] [place] [address] PCP - General Family Practice 05/27/16 Head Char Filter Tank Tender Relationship Specialty Start Date End Date Boo Marina, DO [address] [place] [address] PCP - General Family Practice 05/27/16 Head Char Filter Tank Tender Relationship Specialty Start Date End Date Boo Marina, DO [address] [place] [address] PCP - General Family Practice 05/27/16 Head Char Filter Tank Tender Relationship Specialty Start Date End Date Boo Marina, DO [address] [place] [address] PCP - General Family Practice 05/27/16 Head Char Filter Tank Tender Relationship Specialty Start Date End Date Boo Marina, DO [address] [place] [address] PCP - General Family Practice 05/27/16 Head Char Filter Tank Tender Relationship Specialty Start Date End Date Boo Marina, DO [address] [place] [address] PCP - General Family Practice 05/27/16 Head Char Filter Tank Tender Relationship Specialty Start Date End Date Boo Marina, DO [address] [place] [address] PCP - General Family Practice 05/27/16 Head Char Filter Tank Tender Relationship Specialty Start Date End Date Boo Marina, DO [address] [place] [address] PCP - General Family Practice 05/27/16 Luke Beach, DO [address] [address] Specialty Chief Operating Officer Cardiology 09/19/21 Head Char Filter Tank Tender Relationship Specialty Start Date End Date Boo Marina, DO [address] [place] [address] PCP - General Family Practice 05/27/16 Luke Beach, DO [address] [address] Specialty Chief Operating Officer Cardiology 09/19/21 Head Char Filter Tank Tender Relationship Specialty Start Date End Date Boo Marina, DO [address] [place] [address] PCP - General Family Practice 05/27/16 Luke Beach, DO [address] [address] Specialty Chief Operating Officer Cardiology 09/19/21 Head Char Filter Tank Tender Relationship Specialty Start Date End Date Boo Marina, DO [address] [place] [address] PCP - General Family Practice 05/27/16 Luke Beach, DO [address] [address] Specialty Chief Operating Officer Cardiology 09/19/21 Head Char Filter Tank Tender Relationship Specialty Start Date End Date Boo Marina, DO [address] [place] [address] PCP - General Family Practice 05/27/16 Luke Beach, DO [address] [address] Specialty Chief Operating Officer Cardiology 09/19/21 Head Char Filter Tank Tender Relationship Specialty Start Date End Date Boo Marina, DO [address] [facility] [place] [address] PCP - General Family Practice 05/27/16 Luke Beach, DO [address] [address] Specialty Chief Operating Officer Cardiology 09/19/21 Head Char Filter Tank Tender Relationship Specialty Start Date End Date Boo Marina, DO [address] [facility] [place] [address] PCP - General Family Practice 05/27/16 Luke Beach, DO [address] [address] Specialty Chief Operating Officer Cardiology 09/19/21 Head Char Filter Tank Tender Relationship Specialty Start Date End Date Boo Marina, DO [address] [place] [address] PCP - General Family Practice 05/27/16 Luke Beach, DO [address] [address] Specialty Chief Operating Officer Cardiology 09/19/21 Head Char Filter Tank Tender Relationship Specialty Start Date End Date Boo Marina, DO [address] [place] [address] PCP - General Family Practice 05/27/16 Luke Beach, DO [address] [address] Specialty Chief Operating Officer Cardiology 09/19/21 Head Char Filter Tank Tender Relationship Specialty Start Date End Date Boo Marina, DO [address] [place] [address] PCP - General Family Practice 05/27/16 Luke Beach, DO [address] [address] Specialty Chief Operating Officer Cardiology 09/19/21 Head Char Filter Tank Tender Relationship Specialty Start Date End Date Boo Marina, DO [address] [place] [address] PCP - General Family Practice 05/27/16 Luke Beach, DO [address] [address] Specialty Chief Operating Officer Cardiology 09/19/21 Head Char Filter Tank Tender Relationship Specialty Start Date End Date Boo Marina, DO [address] [place] [address] PCP - General Family Practice 05/27/16 Luke Beach, DO [address] [address] Specialty Chief Operating Officer Cardiology 09/19/21 Head Char Filter Tank Tender Relationship Specialty Start Date End Date Boo Marina, DO [address] [place] [address] PCP - General Family Medicine 05/27/16 Luke Beach, DO [address] [address] Specialty Chief Operating Officer Cardiology 09/19/21 Head Char Filter Tank Tender Relationship Specialty Start Date End Date Boo Marina, DO [address] [place] [address] PCP - General Family Medicine 05/27/16 Luke Beach, DO [address] [address] Specialty Chief Operating Officer Cardiology 09/19/21 Head Char Filter Tank Tender Relationship Specialty Start Date End Date Boo Marina, DO [address] [place] [address] PCP - General Family Medicine 05/27/16 Luke Beach, DO [address] [address] Specialty Chief Operating Officer Cardiology 09/19/21 Head Char Filter Tank Tender Relationship Specialty Start Date End Date Boo Marina, DO [address] [place] [address] PCP - General Family Medicine 05/27/16 Luke Beach, DO [address] [address] Specialty Chief Operating Officer Cardiology 09/19/21 Head Char Filter Tank Tender Relationship Specialty Start Date End Date Boo Marina, DO [address] [place] [address] PCP - General Family Medicine 05/27/16 Luke Beach, DO [address] [address] Specialty Chief Operating Officer Cardiology 09/19/21 Head Char Filter Tank Tender Relationship Specialty Start Date End Date Boo Marina, DO [address] [place] [address] PCP - General Family Medicine 05/27/16 Luke Beach, DO [address] [address] Specialty Chief Operating Officer Cardiology 09/19/21 Head Char Filter Tank Tender Relationship Specialty Start Date End Date Boo Marina, DO [address] [place] [address] PCP - General Family Medicine 05/27/16 Luke Beach, DO [address] [address] Specialty Chief Operating Officer Cardiology 09/19/21 Head Char Filter Tank Tender Relationship Specialty Start Date End Date Boo Marina, DO [address] [facility] [place] [address] PCP - General Family Medicine 05/27/16 Luke Beach, DO [address] [address] Specialty Chief Operating Officer Cardiology 09/19/21 Head Char Filter Tank Tender Relationship Specialty Start Date End Date Boo Marina, DO [address] [place] [address] PCP - General Family Medicine 05/27/16 Luke Beach, DO [address] [address] Specialty Chief Operating Officer Cardiology 09/19/21 Head Char Filter Tank Tender Relationship Specialty Start Date End Date Boo Marina, DO [address] [place] [address] PCP - General Family Medicine 05/27/16 Luke Beach, DO [address] [address] Specialty Chief Operating Officer Cardiology 09/19/21 Head Char Filter Tank Tender Relationship Specialty Start Date End Date Boo Marina, DO [address] [place] [address] PCP - General Family Medicine 05/27/16 Luke Beach, DO [address] [address] Specialty Chief Operating Officer Cardiology 09/19/21 Head Char Filter Tank Tender Relationship Specialty Start Date End Date Boo Marina, DO [address] [place] [address] PCP - General Family Medicine 05/27/16 Luke Beach DO [address] [address] Specialty Chief Operating Officer Cardiology 09/19/21 Head Char Filter Tank Tender Relationship Specialty Start Date End Date Boo Marina, DO [address] [place] [address] PCP - General Family Medicine 05/27/16 Luke Beach DO [address] [address] Specialty Chief Operating Officer Cardiology 09/19/21 Head Char Filter Tank Tender Relationship Specialty Start Date End Date Boo Marina DO [address] [place] [address] PCP - General Family Medicine 05/27/16 Luke Beach DO [address] [address] Specialty Chief Operating Officer Cardiology 09/19/21 Head Char Filter Tank Tender Relationship Specialty Start Date End Date Boo Marina DO [address] [place] [address] PCP - General Family Medicine 05/27/16 Luke Beach DO [address] [address] Specialty Chief Operating Officer Cardiology 09/19/21 Head Char Filter Tank Tender Relationship Specialty Start Date End Date Boo Marina DO [address] [place] [address] PCP - General Family Medicine 05/27/16 Luke Beach DO [address] [address] Specialty Chief Operating Officer Cardiology 09/19/21 Head Char Filter Tank Tender Relationship Specialty Start Date End Date Boo Marina DO [address] [place] [address] PCP - General Family Medicine 05/27/16 Luke Beach DO [address] [address] Specialty Chief Operating Officer Cardiology 09/19/21 Femi Olivera, territory sales manager medical Sheet Mill Supervisor 12/10/22 01/10/23 Head Char Filter Tank Tender Relationship Specialty Start Date End Date Boo Marina DO [address] [place] [address] PCP - General Family Medicine 05/27/16 Luke Beach DO [address] [address] Specialty Chief Operating Officer Cardiology 09/19/21 Femi Olivera, territory sales manager medical Sheet Mill Supervisor 12/10/22 01/10/23 Head Char Filter Tank Tender Relationship Specialty Start Date End Date Boo Marina DO [address] [place] [address] PCP - General Family Medicine 05/27/16 Luke Beach DO [address] [address] Specialty Chief Operating Officer Cardiology 09/19/21 Femi Olivera, territory sales manager medical Sheet Mill Supervisor 12/10/22 01/10/23 Head Char Filter Tank Tender Relationship Specialty Start Date End Date Boo Marina DO [address] [place] [address] PCP - General Family Medicine 05/27/16 Luke Beach DO [address] [address] Specialty Chief Operating Officer Cardiology 09/19/21 Femi Olivera, territory sales manager medical Sheet Mill Supervisor 12/10/22 01/10/23 Head Char Filter Tank Tender Relationship Specialty Start Date End Date Luke Sun DO [address] [place] [address] PCP - General Primary Care 12/16/22 Luke Beach DO [address] [address] Specialty Chief Operating Officer Cardiology 09/19/21 Femi Olivera, territory sales manager medical Sheet Mill Supervisor 12/10/22 01/10/23 Head Char Filter Tank Tender Relationship Specialty Start Date End Date Luke Sun DO [address] [place] [address] PCP - General Primary Care 12/16/22 Luke Beach DO [address] [address] Specialty Chief Operating Officer Cardiology 09/19/21 Femi Olivera, territory sales manager medical Sheet Mill Supervisor 12/10/22 01/10/23 Head Char Filter Tank Tender Relationship Specialty Start Date End Date Luke Sun DO [address] [place] [address] PCP - General Primary Care 12/16/22 Luke Beach DO [address] [address] Specialty Chief Operating Officer Cardiology 09/19/21 Care Team (unrecognized sect ion and content) Care Team Personnel Name: BOO MARINA DO Member Role: Primary Care Physician Address: Address: [address] [place] [address]- Care Team Related Persons Name: PRIYANKA TENORIO Care Team Personnel Name: BOO MARINA Member Role: Primary Care Physician Address: Address: [address] [place] [address] Care Team Related Persons Name: JONA PRIYANKA FOR RECORDS PERTAINING TO PATIENTS WHO ARE OR HAVE BEEN ENROLLED IN A CHEMICAL DEPENDENCY/SUBSTANCEABUSE PROGRAM, SOME INFORMATION MAY BE OMITTED. This clinical summary was aggregated from multiple sources. Caution should be exercised in using it in the provision of clinical care. This summary normalizes information from multiple sources, and as a consequence, information in this document may materially change the coding, format and clinical context of patient data. In addition, data may be omitted in some cases. CLINICAL DECISIONS SHOULD BE BASED ON THE PRIMARY CLINICAL RECORDS. [facility]. provides no warranty or guarantee of the accuracy or completeness of information in this document.
--- NOTE | 2024-01-13 08:27 | ED_ITS ---
HPI - SOB/Dyspnea General Chief Complaint: Shortness of Breath/Dyspnea Stated Complaint: SOB Time Seen by Provider: 01/13/24 07:54 Source: patient Mode of arrival: ambulance Limitations: no limitations History of Present Illness HPI Narrative: The patient does have a history of Alzheimer as well as COPD coming to us from assisted living facility after he was noted to be short of breath this morning, according to the staff he was saturating 77% and short of breath when he gave him 1 breathing treatment it was enough to bring him up to 84% by the time the EMS arrived and gave him another breathing treatment he was up to 96% The patient upon arrival mentioned that he has been feeling sick since yesterday and there is multiple people who are sick around him. The patient had normal appetite yesterday he is denying any fever but has been having cough that is productive Also denying any chest pain or any nausea vomiting or any other concerns Related Data Home Medications ?Medication ?Instructions ?Recorded ?Confirmed aspirin 81 mg chewable tablet 1 tab PO DAILY 01/13/24 01/13/24 atorvastatin 40 mg tablet 40 mg PO BEDTIME 01/13/24 01/13/24 cholecalciferol (vitamin D3) 50 2,000 unit PO DAILY 01/13/24 01/13/24 mcg (2,000 unit) capsule cholecalciferol (vitamin D3) 50 50 mcg PO DAILY 01/13/24 01/13/24 mcg (2,000 unit) tablet donepezil 10 mg tablet 10 mg PO BEDTIME 01/13/24 01/13/24 ezetimibe 10 mg tablet 10 mg PO DAILY 01/13/24 01/13/24 fenofibrate 54 mg tablet 54 mg PO BEDTIME 01/13/24 01/13/24 ipratropium 0.5 mg-albuterol 3 mg 3 ml inhalation Q4H PRN shortness 01/13/24 01/13/24 (2.5 mg base)/3 mL nebulization of breath soln loratadine 10 mg tablet 10 mg PO DAILY 01/13/24 01/13/24 memantine 10 mg tablet 10 mg PO DAILY 01/13/24 01/13/24 nicotine 21 mg/24 hr daily 1 patch transdermal DAILY 01/13/24 01/13/24 transdermal patch pantoprazole 40 mg tablet,delayed 40 mg PO Q12H 01/13/24 01/13/24 release psyllium husk 0.4 gram capsule 0.4 g PO BID 01/13/24 01/13/24 Allergies Allergy/AdvReac Type Severity Reaction Status Date / Time banana Allergy Mild Abdominal Verified 01/13/24 08:43 Pain pollen extracts Allergy Mild Abdominal Verified 01/13/24 08:43 Pain Review of Systems ROS Status of ROS 10 or more systems reviewed and unremark able except as noted in history and below [facility] Medical History (Updated 01/13/24 @ 11:43 by Anastacia Carlson MD) Anxiety ?F41.9 - Anxiety disorder, unspecified (ICD-10) Hyperlipemia ?E78.5 - Hyperlipidemia, unspecified (ICD-10) Anemia ?D64.9 - Anemia, unspecified (ICD-10) Abdominal aneurysm without mention of rupture ?I71.40 - Abdominal aortic aneurysm, without rupture, unspecified (ICD-10) COPD (chronic obstructive pulmonary disease) ?J44.9 - Chronic obstructive pulmonary disease, unspecified (ICD-10) Social History Little interest or pleasure in doing things: not at all Feeling down, depressed, or hopeless: not at all Exam Narrative Exam Narrative: Nurses notes and vital signs reviewed and patient is not hypoxic. General: Well-appearing and in no apparent distress. Skin: Warm, dry, no pallor noted. No rash. Head: Normocephalic, atraumatic. Neck: Supple, non-tender. Eye: Pupils are equal, round and EOMI. No scleral icterus. Ears, Nose, Mouth, and Throat: TM are clear, no nasal mucosal hypertrophy. Oral mucosa is moist, no posterior oropharynx erythema, uvula is mid-line Cardiovascular: Regular Rate and Rhythm without murmur, gallop or rub. Respiratory: Patient was tachypneic upon arrival still able to provide full sentences Lungs are bilateral expiratory lung wheezes Chest Wall: no tenderness Back: No midline thoracic or lumbar vertebral tenderness. No CVA tenderness Musculoskeletal: normal ROM, no calf or popliteal tenderness, no lower extremity edema/swelling GI: Abdomen is soft, non-distended. Normal bowel sounds. No masses appreciated. No tenderness to palpation. No rebound, guarding, or rigidity noted. Neurological: A&O x1. No cranial nerve dysfunction observed. Moves all extremities. Sensation intact. Psychiatric: Cooperative and interactive. Normal mood and affect. Constitutional Vital Signs, click to edit/add: Last Vital Signs Temp 100 F 01/13/24 07:57 Pulse 65 01/13/24 11:14 Resp 35 H 01/13/24 10:00 BP 148/78 H 01/13/24 11:14 Pulse Ox 98 01/13/24 11:14 O2 Del Method Nasal Cannula 01/13/24 11:10 O2 Flow Rate 3 01/13/24 11:10 FiO2 25 01/13/24 09:35 Course Vital Signs Vital signs: Vital Signs Pulse Rate 118 H 01/13/24 07:56 Respiratory Rate 33 H 01/13/24 07:56 Pulse Oximetry 94 L 01/13/24 07:56 Temperature 100 F 01/13/24 07:57 Pulse Rate 65 01/13/24 11:14 Respiratory Rate 35 H 01/13/24 10:00 Blood Pressure 148/78 H 01/13/24 11:14 Pulse Oximetry 98 01/13/24 11:14 Oxygen Delivery Method Nasal Cannula 01/13/24 11:10 Oxygen Delivery Flow Rate 3 01/13/24 11:10 Fraction of Inspired Oxygen 01/13/24 09:35 MDM - SOB/Dyspnea MDM Narrative Medical decision making narrative: The patient EKG upon arrival showing A-fib rhythm with a heart rate of 155 The patient have a paced rhythm too It was noted that the patient was tachypneic upon arrival and in distress The patient presented to us with the COPD exacerbation and A-fib RVR picture Upon presentation the patient was in A-fib RVR with a heart rate of 155 after giving him steroids and put him on BiPAP the patient feeling better specially with the ABGs was showing some CO2 retention The patient case was discussed with the Dr. Miranda and the cardiology service and he recommended the patient to be started on Cardizem 30 mg p.o. 3 times daily and also Xarelto The patient will be admitted for further evaluation of his CHF exacerbation specially with his BNP is elevated and there is a picture of mixed CHF exacerbation COPD exacerbation and his A-fib RVR could be the reason for the CHF exacerbation as well The patient was provided with Cardizem IV 5 mg and then started on 30 mg p.o. 3 times daily The patient case was discussed with and he agreed to admit the patient at the stepdown Lab Data Labs: Lab Results 01/13/24 01/13/24 01/13/24 Range/Units 08:10 08:15 08:47 WBC 9.6 (4.0-11.0) 10^3/uL RBC 6.09 (4.70-6.10) 10^6/uL Hgb 13.6 L (14.0-18.0) g/dL Hct 48.1 (42.0-54.0) % MCV 79.0 L (80.0-94.0) fL MCH 22.3 L (25.9-34.0) pg MCHC 28.3 L (29.9-35.2) g/dL RDW 18.9 H (11.0-15.0) % Plt Count 153 (150-450) 10^3/uL Neut % (Auto) 74.6 (43.0-75.0) % Lymph % (Auto) 13.2 L (20.5-60.0) % Burnett % (Auto) 10.8 (1.7-12.0) % Eos % (Auto) 0.5 L (0.9-7.0) % Baso % (Auto) 0.6 (0.2-2.0) % Neut # (Auto) 7.1 H (1.4-6.5) 10^3/uL Lymph # (Auto) 1.3 (1.2-3.8) 10^3/uL Burnett # (Auto) 1.0 H (0.3-0.8) 10^3/uL Eos # (Auto) 0.1 (0.0-0.7) 10^3/uL Baso # (Auto) 0.1 (0.0-0.1) 10^3/uL Abs Immat Gran (auto) 0.03 (0.00-0.03) 10^3/uL Imm/Tot Granulo (auto) 0.3 (0.0-0.5) % PT 10.9 (9.0-11.6) sec INR 1.03 Puncture Site ABG pH (7.350-7.450) ABG pCO2 (35.0-45.0) mmHg ABG pO2 (80.0-100.0) mmHg ABG HCO3 (22.0-26.0) mmol/L ABG O2 Saturation % ABG Base Excess (-2.0-2.0) mmol/L Josue Test (POSITIVE) O2 Liters/Min Sodium 142 (136-145) mmol/L Potassium 3.9 (3.5-5.1) mmol/L Chloride 105 (98-107) mmol/L Carbon Dioxide 30.1 (21.0-32.0) mmol/L Anion Gap 10.8 BUN 22.0 H (7.0-18.0) mg/dL Creatinine 1.29 (0.70-1.30) mg/dL Est GFR ( Amer) >60 (>=60) Est GFR (Non-Af Amer) 53 L (>=60) BUN/Creatinine Ratio 17.1 Glucose 130 H (74-106) mg/dL Calcium 9.3 (8.5-10.1) mg/dL Total Bilirubin 1.2 H (0.2-1.0) mg/dL AST 19 (15-37) U/L ALT 21 (16-63) U/L Alkaline Phosphatase 98 (46-116) U/L Troponin I High Sens 54.1 (4.0-76.1) pg/mL NT-Pro-B Natriuret Pep 2626.0 H* (<=1800.0) pg/mL Total Protein 7.8 (6.4-8.2) g/dL Albumin 3.6 (3.4-5.0) g/dL Globulin 4.2 g/dL Albumin/Globulin Ratio 0.9 SARS-CoV-2 Ag (CV2AG) Negative (NEGATIVE) 01/13/24 Range/Units 08:50 WBC (4.0-11.0) 10^3/uL RBC (4.70-6.10) 10^6/uL Hgb (14.0-18.0) g/dL Hct (42.0-54.0) % MCV (80.0-94.0) fL MCH (25.9-34.0) pg MCHC (29.9-35.2) g/dL RDW (11.0-15.0) % Plt Count (150-450) 10^3/uL Neut % (Auto) (43.0-75.0) % Lymph % (Auto) (20.5-60.0) % Burnett % (Auto) (1.7-12.0) % Eos % (Auto) (0.9-7.0) % Baso % (Auto) (0.2-2.0) % Neut # (Auto) (1.4-6.5) 10^3/uL Lymph # (Auto) (1.2-3.8) 10^3/uL Burnett # (Auto) (0.3-0.8) 10^3/uL Eos # (Auto) (0.0-0.7) 10^3/uL Baso # (Auto) (0.0-0.1) 10^3/uL Abs Immat Gran (auto) (0.00-0.03) 10^3/uL Imm/Tot Granulo (auto) (0.0-0.5) % PT (9.0-11.6) sec INR Puncture Site Lr ABG pH 7.329 L (7.350-7.450) ABG pCO2 56.6 H* (35.0-45.0) mmHg ABG pO2 70.5 L (80.0-100.0) mmHg ABG HCO3 29.8 H (22.0-26.0) mmol/L ABG O2 Saturation 93.1 % ABG Base Excess 3.8 H (-2.0-2.0) mmol/L Josue Test Positive (POSITIVE) O2 Liters/Min 2 Sodium (136-145) mmol/L Potassium (3.5-5.1) mmol/L Chloride (98-107) mmol/L Carbon Dioxide (21.0-32.0) mmol/L Anion Gap BUN (7.0-18.0) mg/dL Creatinine (0.70-1.30) mg/dL Est GFR ( Amer) (>=60) Est GFR (Non-Af Amer) (>=60) BUN/Creatinine Ratio Glucose (74-106) mg/dL Calcium (8.5-10.1) mg/dL Total Bilirubin (0.2-1.0) mg/dL AST (15-37) U/L ALT (16-63) U/L Alkaline Phosphatase (46-116) U/L Troponin I High Sens (4.0-76.1) pg/mL NT-Pro-B Natriuret Pep (<=1800.0) pg/mL Total Protein (6.4-8.2) g/dL Albumin (3.4-5.0) g/dL Globulin g/dL Albumin/Globulin Ratio SARS-CoV-2 Ag (CV2AG) (NEGATIVE) Discharge Plan Discharge Chief Complaint: Shortness of Breath/Dyspnea Clinical Impression: Pulmonary edema with congestive heart failure, COPD exacerbation, Atrial fibrillation with RVR Patient Disposition: Admitted As Inpatient Time of Disposition Decision: 11:42
[2024-01-13 08:31] LABS: Basophils Absolute Auto 0.1 10^3/uL (0.0-0.1); Basophils Percent Auto 0.6 % (0.2-2.0); Eosinophils Absolute Auto 0.1 10^3/uL (0.0-0.7); Eosinophils Percent Auto 0.5 % (0.9-7.0); Hematocrit 48.1 % (42.0-54.0); Hemoglobin 13.6 g/dL (14.0-18.0); Immature Granulocytes Abs Auto 0.03 10^3/uL (0.00-0.03); Immature Granulocytes Pct Auto 0.3 % (0.0-0.5); Lymphocytes Absolute Auto 1.3 10^3/uL (1.2-3.8); Lymphocytes Percent Auto 13.2 % (20.5-60.0); Mean Corpuscular HGB Conc 28.3 g/dL (29.9-35.2); Mean Corpuscular Hemoglobin 22.3 pg (25.9-34.0); Monocytes Percent Auto 10.8 % (1.7-12.0); Neutrophils Absolute Auto 7.1 10^3/uL (1.4-6.5); Neutrophils Percent Auto 74.6 % (43.0-75.0); Platelet Count 153 10^3/uL (150-450); Red Blood Count 6.09 10^6/uL (4.70-6.10); Red Cell Distribution Width 18.9 % (11.0-15.0); White Blood Count 9.6 10^3/uL (4.0-11.0)
[2024-01-13 08:45] LABS: Internal Control Within Normal Limits; SARS-CoV-2 Ag NEGATIVE (NEGATIVE)
[2024-01-13 08:51] LABS: Alanine Aminotransferase 21 U/L (16-63); Albumin Globulin Ratio 0.9; Albumin Level 3.6 g/dL (3.4-5.0); Alkaline Phosphatase 98 U/L (46-116); Anion Gap 10.8; Aspartate Amino Transferase 19 U/L (15-37); BUN Creatinine Ratio 17.1; Bilirubin Total 1.2 mg/dL (0.2-1.0); Calcium 9.3 mg/dL (8.5-10.1); Carbon Dioxide 30.1 mmol/L (21.0-32.0); Chloride 105 mmol/L (98-107); Estimated GFR (African America >60 (>=60); Estimated GFR (Non-African Ame 53 (>=60); Globulin 4.2 g/dL; Glucose 130 mg/dL (74-106); Potassium 3.9 mmol/L (3.5-5.1); Sodium 142 mmol/L (136-145); Total Protein 7.8 g/dL (6.4-8.2); Troponin I High Sensitivity 54.1 pg/mL (4.0-76.1)
[2024-01-13 08:56] LABS: PO2 ABG 70.5 mmHg (80.0-100.0); pH ABG 7.329 (7.350-7.450)
[2024-01-13 08:57] LABS: Allen Test POSITIVE (POSITIVE); Base Excess ABG 3.8 mmol/L (-2.0-2.0); HCO3 ABG 29.8 mmol/L (22.0-26.0); Liters per Minute 2; O2 Mode NC; Oxygen Saturation ABG 93.1 %; Puncture Site LR
[2024-01-13 08:58] LABS: ABG PCO2 56.6 mmHg (35.0-45.0)
--- NOTE | 2024-01-13 08:58 | RESP.RT ---
Treatment given per nursing
[2024-01-13 09:07] LABS: INR 1.03; Prothrombin Time 10.9 sec (9.0-11.6)
[2024-01-13] MEDS: FUROSEMIDE 40 MG/4 ML VIAL IVP ×2 (09:12→20:56)
--- NOTE | 2024-01-13 09:30 | PC.NURSE ---
PCO2 56.6
[2024-01-13] MEDS: DILTIAZEM HCL 25 MG/5 ML VIAL 5 MG IV (10:53)
--- NOTE | 2024-01-13 11:16 | CA_ITS ---
Patient Name: THANH ESPINOZA MR#: [id number] : 1935 Exam Date: 01/14/2024 Ordering Doctor: SHAIKH Ashley OLVERA . ECHOCARDIOGRAM REPORT PROCEDURE: CA ECHO DOPPLER COMPLETE INDICATIONS: Afib with RVR, elevated BNP, pacemaker, COPD, Alzheimer COMPARISON: None. DESCRIPTION: COMPLETE ECHOCARDIOGRAM Real-time transthoracic echocardiography with 2D, M-mode, spectral and color flow Doppler performed. QUALITY: Technical quality was good. LEFT VENTRICLE: Normal chamber size. Thickened septal wall. LV EF: Global left ventricular systolic function is severely reduced; visually estimated ejection fraction is 15 to 20%. Global hypokinesis. DIASTOLIC: Not adequately assessed due to heart rhythm. ATRIAL SEPTUM: Visually appears intact. LEFT ATRIUM: Mild dilatation. RIGHT ATRIUM: Moderate dilatation. Pacer wire present. RIGHT VENTRICLE: Normal chamber size. Systolic function appears reduced. Pacer wire present. TRICUSPID VALVE: Normal mobility and thickness. No stenosis with mild regurgitation. Doppler studies reveal moderately (45-60) elevated right sided pressures. RVSP 48 mmHg MITRAL VALVE: Mildly thickened with normal mobility. No evidence of mitral valve stenosis. There is no mitral annular calcification. Moderate mitral regurgitation. AORTIC VALVE: Normal trileaflet appearance. Mildly calcified aortic valve. Normal leaflet mobility. No evidence of aortic valve stenosis. No aortic regurgitation. AORTIC ROOT: Normal diameter and appearance. Ascending aorta is normal in size. PULMONIC VALVE: Normal thickness and mobility. No stenosis. Trivial regurgitation. PERICARDIUM: No evidence of pericardial effusion. IVC: IVC is dilated (2.9 cm) with no collapse. CONCLUSION: 1. Global left ventricular systolic function is severely reduced; visually estimated ejection fraction is 15 to 20% 2. Normal right ventricular size with reduced systolic function 3. Biatrial dilatation 4. Mild tricuspid regurgitation 5. Moderately elevated right ventricular systolic pressure; RVSP 48 mmHg 6. Moderate mitral regurgitation Adult Echocardiography Procedure Report Left Ventricle LVEDD (3.7 - 5.6 cm): 5.63 cm LVESD (2.2 - 4.0 cm): 5.20 cm LVIVS thickness (0.6 - 1.2 cm): 1.30 cm LVPW thickness (0.5 - 1.0 cm): 0.85 cm LVOT Max Gradient: 3.78 mm[Hg], 3.67 mm[Hg] LVOT Area (cm2): 0.96 m/s Peak Velocity (LVOT): 0.97 m/s, 0.96 m/s Mean Velocity (LVOT): 0.57 m/s LVOT Diameter 2.38 cm Left Atrium LA Volume Index (2D A2C): 38.86 ml/m2 Left Atrium Systolic Dimension: 3.91 cm Mitral Valve Right Ventricle Aorta AO Root Diam: 3.60 cm Ascending Ao Diam: 3.01 cm Aortic Valve AoV Area (Peak Cole): 2.93 cm2, 2.95 cm2, 2.91 cm2 AoV Area (VTI): 2.86 cm2, 2.99 cm2, 2.74 cm2 Peak Velocity(Antegrade Flow): 1.46 m/s, 1.46 m/s Peak Gradient(Antegrade Flow): 8.56 mm[Hg], 8.56 mm[Hg] Mean Velocity(Antegrade Flow): 1.00 m/s, 0.98 m/s Mean Gradient(Antegrade Flow): 4.62 mm[Hg], 4.54 mm[Hg] Velocity Time Integral: 23.71 cm, 23.68 cm Tricuspid Valve Peak Velocity (Regurgitant Flow): 2.68 m/s, 2.85 m/s, 2.51 m/s Pulmonic Valve Mean Gradient: 0.82 mm[Hg] Mean Velocity: 0.42 m/s Peak Velocity: 0.66 m/s, 0.74 m/s Peak Gradient: 2.21 mm[Hg], 1.76 mm[Hg] Right Atrium Right Atrium Systolic Pressure: 86.55 ml, 86.55 ml Dictated by: Diane Stahl M.D. on 01/14/2024 at 08:54 Approved by: Diane Stahl M.D. on 01/14/2024 at 08:59
[2024-01-13] MEDS: DILTIAZEM HCL 60 MG TABLET 30 MG PO (11:26)
--- NOTE | 2024-01-13 11:38 | PC.NURSE ---
i called alf and informed them thia patient will be admitted to this hospital,
--- NOTE | 2024-01-13 12:24 | SWNOTE1 ---
PILY reached out to Bee at [facility] and patient is from [facility].
--- NOTE | 2024-01-13 13:13 | P.HP_ITS ---
HPI H&P: HPI History of Present Illness Chief complaint: SOB/A FIB W/RVR/ COPD EXACERBATION Narrative: 88 y o male with dementia, COPD, Afib s/p PPM, presented to ED with rapid HR, worsening SOB. He does not use O2 at assisted living facility and according to the report his pulse Ox was as low as 77 % that prompted staff to call EMS. Patient on arrival had increased work of breathing with tachypnea, was using accessory muscle of respiration and was placed on BIPAP but kept removing it so he was transitioned to SD. Patient's respiratory status improved a little after initial treatment with duonebs, IV lasix, and IV cardizem. Patient admitted for acute resp failure with hypoxia sec to COPD exacerbation/acute on chronic diastolic HF along with Afib with RVR His case was d/w Cardiology who recommended PO Cardizem for him to try and control his HR. We do not have any records on this patient as he usually gets his care at [facility]. 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 Patient has hx of dementia, is a poor historian and unable to provide reliable information. I spoke with patient's daughter also who was not familiar with patient's hx. Patient is unsure of how long he has been sick for. Previously he told RN that he has been feeling this way for a few weeks. His daughter though thinks that this is all acute and likely started a few days ago. Opioid HPI Opioid Management Most Recent Pain and Opioid Data: No Data to Display Review of Systems ROS Status of ROS 10 or more systems reviewed and unremark able except as noted in history and below [facility] Medical History (Updated 01/13/24 @ 13:28 by Shaikh Edvin MD) Dementia ?F03.90 - Unspecified dementia, unspecified severity, without behavioral disturbance, psychotic disturbance, mood disturbance, and anxiety (ICD-10) Presence of permanent cardiac pacemaker ?Z95.0 - Presence of cardiac pacemaker (ICD-10) Afib ?I48.91 - Unspecified atrial fibrillation (ICD-10) CAD (coronary artery disease) ?I25.10 - Atherosclerotic heart disease of three affiliated coronary artery without angina pectoris (ICD-10) Anxiety ?F41.9 - Anxiety disorder, unspecified (ICD-10) Hyperlipemia ?E78.5 - Hyperlipidemia, unspecified (ICD-10) Anemia ?D64.9 - Anemia, unspecified (ICD-10) Abdominal aneurysm without mention of rupture ?I71.40 - Abdominal aortic aneurysm, without rupture, unspecified (ICD-10) COPD (chronic obstructive pulmonary disease) ?J44.9 - Chronic obstructive pulmonary disease, unspecified (ICD-10) Surgical History (Updated 01/13/24 @ 13:25 by Shaikh Edvin MD) H/O abdominal aortic aneurysm repair ?Z98.890 - Other specified postprocedural states (ICD-10) Social History (Updated 01/13/24 @ 13:25 by Shaikh Edvin MD) Within the past year, how often did you have a drink containing alcohol: never Score interpretation: A score less than 4 is consistent with normal alcohol consumption. Smoking status: Former smoker Non-prescribed substance use: denies use Little interest or pleasure in doing things: not at all Feeling down, depressed, or hopeless: not at all Gender Identity: male Meds Home Medications and Allergies Home Medications ?Medication ?Instructions ?Recorded ?Confirmed ?Type aspirin 81 mg chewable tablet 1 tab PO DAILY 01/13/24 01/13/24 History atorvastatin 40 mg tablet 40 mg PO BEDTIME 01/13/24 01/13/24 History cholecalciferol (vitamin D3) 50 50 mcg PO DAILY 01/13/24 01/13/24 History mcg (2,000 unit) tablet donepezil 10 mg tablet 10 mg PO BEDTIME 01/13/24 01/13/24 History ezetimibe 10 mg tablet 10 mg PO DAILY 01/13/24 01/13/24 History fenofibrate 54 mg tablet 54 mg PO BEDTIME 01/13/24 01/13/24 History ipratropium 0.5 mg-albuterol 3 mg 3 ml inhalation Q4H PRN shortness 01/13/24 01/13/24 History (2.5 mg base)/3 mL nebulization of breath soln loratadine 10 mg tablet 10 mg PO DAILY 01/13/24 01/13/24 History memantine 10 mg tablet 10 mg PO DAILY 01/13/24 01/13/24 History nicotine 21 mg/24 hr daily 1 patch transdermal DAILY 01/13/24 01/13/24 History transdermal patch pantoprazole 40 mg tablet,delayed 40 mg PO Q12H 01/13/24 01/13/24 History release psyllium husk 0.4 gram capsule 0.4 g PO BID 01/13/24 01/13/24 History Allergies Allergy/AdvReac Type Severity Reaction Status Date / Time banana Allergy Mild Abdominal Verified 01/13/24 08:43 Pain pollen extracts Allergy Mild Abdominal Verified 01/13/24 08:43 Pain Exam Constitutional Vital Signs, click to edit/add: Last Vital Signs Temp 97.8 F 01/13/24 12:30 Pulse 119 H 01/13/24 12:30 Resp 40 H 01/13/24 12:30 BP 113/69 01/13/24 12:30 Pulse Ox 93 L 01/13/24 12:30 O2 Del Method Nasal Cannula 01/13/24 12:30 O2 Flow Rate 3 01/13/24 12:30 FiO2 25 01/13/24 09:35 General appearance: cooperative, comfortable, in distress respiratory and frail appearing Respiratory Effort & inspection: tachypneic, respiratory distress and uses accessory muscles (using accessory neck muscles ) Auscultation: rhonchi left lower Cardio Common normals: S1 normal heart sound and S2 normal heart sound Jugular venous distention: JVD Rate: tachycardic Rhythm: abnormal rhythm GI Common normals: Normal to inspection, nondistended, normoactive bowel sounds present, soft to palpation, non-tender and no hepatosplenomegaly Palpation: hernia other (incisional hernia - soft. ) Extremity Common normals: normal to inspection and full ROM Neuro Common normals: oriented x3, moves all extremities and no sensory deficits noted Gait (neuro): unable to assess gait Other: Facial asymmetry/mild dysarthria noted. Psych Common normals: denies homicidal ideation and denies suicidal ideation Other: Mild confusion, poor memory. AAOX 3. Results Labs Labs: Short CBC 01/13/24 Range/Units 08:10 WBC 9.6 (4.0-11.0) 10^3/uL Hgb 13.6 L (14.0-18.0) g/dL Hct 48.1 (42.0-54.0) % Plt Count 153 (150-450) 10^3/uL BMP 01/13/24 08:10 Sodium 142 Potassium 3.9 Chloride 105 Carbon Dioxide 30.1 BUN 22.0 H Creatinine 1.29 Glucose 130 H Calcium 9.3 Liver Function 01/13/24 Range/Units 08:10 Total Bilirubin 1.2 H (0.2-1.0) mg/dL AST 19 (15-37) U/L ALT 21 (16-63) U/L Alkaline Phosphatase 98 (46-116) U/L Albumin 3.6 (3.4-5.0) g/dL ABG ABG results: 01/13/24 08:50 ABG pH 7.329 L ABG pCO2 56.6 H* ABG pO2 70.5 L ABG HCO3 29.8 H ABG O2 Saturation 93.1 ABG Base Excess 3.8 H Assessment and Plan Assessment and Plan (1) Acute respiratory failure with hypoxia: Assessment and Plan: Secondary to COPD exacerbation, acute on chronic diastolic heart failure. Wean off oxygen as tolerated. Treat underlying COPD exacerbation and acute on chronic diastolic heart failure as discussed separately (2) COPD exacerbation: Assessment and Plan: Current IV Solu-Medrol, inhaled bronchodilators. Monitor closely. (3) Acute on chronic diastolic (congestive) heart failure: Assessment and Plan: Volume overload on exam with elevated BNP and increased vascular congestion noted on chest x-ray. Started patient on IV Lasix 40 twice daily. Echocardiogram ordered. Repeat chest x-ray tomorrow. (4) Atrial fibrillation with RVR: Assessment and Plan: A-fib with RVR likely exacerbated because of COPD exacerbation. Started patient on oral Cardizem 60 4 times daily. IV Lopressor as needed. Hold anticoagulation against stroke prophylaxis because of recent history of intra- abdominal bleeding last year that required prolonged hospital admission and blood transfusion. If needed, he might need IV Cardizem continuous infusion. (5) CAD (coronary artery disease): Assessment and Plan: No evidence of active cardiac ischemia. Troponins are negative. Monitor closely Qualifiers: Associated angina: without angina Coronary Disease-Associated Artery/Lesion type: three affiliated artery [place] vs. transplanted heart: three affiliated heart Qualified Code(s): I25.10 - Atherosclerotic heart disease of three affiliated coronary artery without angina pectoris (6) Dementia: Assessment and Plan: According to daughter, he is confused at baseline with poor memory. Continue with home medications. Qualifiers: Alzheimer's disease onset: late onset Dementia behavioral or psychological symptom: without behavioral, psychotic, or mood disturbance or anxiety Dementia severity: moderate Dementia type: Alzheimer's Qualified Code(s): G30.1 - Alzheimer's disease with late onset; F02.B0 - Dementia in other diseases classified elsewhere, moderate, without behavioral disturbance, psychotic disturbance, mood disturbance, and anxiety (7) Hyperlipemia: Assessment and Plan: Continue with statin. Qualifiers: Hyperlipidemia type: unspecified Qualified Code(s): E78.5 - Hyperlipidemia, unspecified Urinary Catheter Management Urinary Catheter Management Urethral: Cath placed during this visit: yes Urethral indwelling: No Insertion date: 01/13/24 Insertion time: 09:27
[2024-01-13] MEDS: CETIRIZINE HCL 10 MG TABLET PO (13:46)
[2024-01-13] MEDS: EZETIMIBE 10 MG TABLET PO (13:46)
[2024-01-13] MEDS: AZITHROMYCIN 250 MG TABLET PO (13:46)
[2024-01-13] MEDS: IPRATROPIUM/ALBUTEROL SULFATE 3 ML AMPUL.NEB IH ×2 (16:07→22:14)
[2024-01-13] MEDS: METHYLPREDNISOLONE SOD SUCC PF 40 MG/ML VIAL IVP (16:11)
[2024-01-13] MEDS: METOPROLOL TARTRATE 5 MG/5 ML VIAL IVP (16:11)
[2024-01-13] MEDS: DILTIAZEM HCL 60 MG TABLET PO (17:33)
[2024-01-13 18:49] LABS: Glucometer 206 mg/dL (74-106)
--- NOTE | 2024-01-13 19:00 | PC.NURSE ---
190: Called to room because staff states that pt is unresponsive and attempting sternal rub. When get to room pt has eyes closed, when raise arms in air then let go, pt does not stop arms from falling but arms do go down toward his side more that on his torso. Pupils are pin point and pt does roll eyes up when attempt to assess. When stroke bottom of feet, pt does respond by slight jerk of leg. Pt's name yelled in his ear and he does open his eyes but then promptly closes them again with no verbal response. 190: ER Dr called to come to room to evaluate the pt after contacting tele hospitalist. Pulse ox 94-95% with Nasal cannula placed in his mouth because was mouth breathing and sat was holding between 85-88% when in his nose. Resp 32 and shallow. pulse 112 1904: Dr Hernadez here to evaluate pt. Orders from the tele hospitalist being put in. BP 139/82 Pulse 101 resp 32 and shallow Sat remains 96% with 3L per cannula in mouth. ABG being drawn and EKG also being done. Pt will then go down for CT scan 1914: taking pt down for CT
--- NOTE | 2024-01-13 19:02 | CT_ITS ---
The [place] [id number] Patient Name: THANH ESPINOZA MRN: [id number] date: 1935 Sex: M Assigned Patient Location: MS Current Patient Location: MS Accession/Order Number: [id number] Exam Date: 01/13/2024 19:25 Report Date: 01/13/2024 19:59 At the request of: MARY GARCIAS Procedure: CT stroke head/brain wo con EXAM: CT stroke head/brain wo con HISTORY: Unresponsive. TECHNIQUE: Axial CT scans through the head were obtained without IV contrast administration. Dose reduction techniques were achieved by using: automated exposure control and/or adjustment of mA and/or kV according to patient size and/or use of an iterative reconstruction technique. COMPARISON: None. FINDINGS: Severe confluent periventricular and subcortical low attenuation in the cerebral hemispheres without associated mass effect. 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 The brainstem and the cerebellum appear normal. The ventricular system and cortical sulci are prominent, secondary to cerebral volume loss. No area of abnormal mass effect, edema, or intracranial hemorrhage is shown. The visualized orbits show no abnormal mass. The visualized paranasal sinuses show no air-fluid level. Mastoid air cells are clear. CT/CT stroke head/brain wo con IMPRESSION: 1. Severe old microvascular ischemic change and age-related cerebral atrophy. 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 2. No acute intracranial process. Electronically authenticated by: DIANE CHEUNG Date: 01/13/2024 19:59
--- NOTE | 2024-01-13 19:07 | ECG_ITS ---
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: : 1935 Requested By: [id number] Order Number: [id number] Reading MD: DOMO SCHROEDER Measurements Intervals [place] Rate: 123 P: NM: QRS: 4 QRSD: 105 T: 265 QT: 315 QTc: 452 Interpretive Statements ATRIAL FIBRILLATION WITH RAPID VENTRICULAR RESPONSE VOLTAGE CRITERIA FOR LVH [MEETS CRITERIA IN ONE OF: R(aVL), S(V1), R(V5), R(V5/V6)+S(V1)] ST DEVIATION AND MODERATE T-WAVE ABNORMALITY, CONSIDER LATERAL ISCHEMIA [-0.1+ mV T WAVE IN I/aVL/V5/V6] ST DEVIATION AND MODERATE T-WAVE ABNORMALITY, CONSIDER INFERIOR ISCHEMIA [-0.1+ mV T WAVE IN II/aVF] Electronically Signed On 01-14-2024 6:47:29 EDT by DOMO SCHROEDER
[2024-01-13 19:25] LABS: Base Excess ABG 3.5 mmol/L (-2.0-2.0); HCO3 ABG 30.9 mmol/L (22.0-26.0); Oxygen Saturation ABG 97.8 %
[2024-01-13 19:26] LABS: Allen Test POSITIVE (POSITIVE); Liters per Minute 3; O2 Mode NASAL CANNULA; Puncture Site LR
[2024-01-13 19:28] LABS: ABG PCO2 73.1 mmHg (35.0-45.0); pH ABG 7.235 (7.350-7.450)
--- NOTE | 2024-01-13 20:02 | PC.NURSE ---
Went in to patient room for hourly rounding at 1840, patient appeared to be sleeping, his dinner had arrived so this RN attempted to wake the patient up to eat. Patient did not respond to sternal rubs, pupils did not respond to light, vitals were checked BP 121/80, HR 95, pulse ox 90% on 3L NC, axillary temp 97.3, respirations 38/min, poc blood glucose checked at 206. Hospital notified, Nursing irrigation supervisor called to bedside, orders received from Karen Redd for CT head, ABG's, EKG, trop, CMP, CBC, and to have ER doc and respiratory come put eyes on patient. ER doc came to bedside and agreed with orders received from the hospitalist. Respiratory kristin ABG's, EKG done by RN and Cargo Worker. Patient taken to CT scan, report given to oncoming nurse Shelia at CT.
[2024-01-13 20:11] LABS: Hematocrit 47.4 % (42.0-54.0); Hemoglobin 13.1 g/dL (14.0-18.0); Mean Corpuscular HGB Conc 27.6 g/dL (29.9-35.2); Mean Corpuscular Hemoglobin 22.3 pg (25.9-34.0); Mean Corpuscular Volume 80.7 fL (80.0-94.0); Platelet Count 149 10^3/uL (150-450); Red Blood Count 5.87 10^6/uL (4.70-6.10); Red Cell Distribution Width 19.1 % (11.0-15.0); White Blood Count 6.2 10^3/uL (4.0-11.0)
[2024-01-13 20:34] LABS: Alanine Aminotransferase 16 U/L (16-63); Albumin Globulin Ratio 0.8; Albumin Level 3.3 g/dL (3.4-5.0); Alkaline Phosphatase 93 U/L (46-116); Anion Gap 9.1; Aspartate Amino Transferase 13 U/L (15-37); BUN Creatinine Ratio 18.5; Calcium 9.2 mg/dL (8.5-10.1); Carbon Dioxide 31.3 mmol/L (21.0-32.0); Chloride 103 mmol/L (98-107); Estimated GFR (African America 49 (>=60); Estimated GFR (Non-African Ame 40 (>=60); Globulin 4.4 g/dL; Glucose 198 mg/dL (74-106); Potassium 4.4 mmol/L (3.5-5.1); Sodium 139 mmol/L (136-145); Total Protein 7.7 g/dL (6.4-8.2)
[2024-01-13 20:37] LABS: Troponin I High Sensitivity 34.4 pg/mL (4.0-76.1)
[2024-01-13 21:08] LABS: Lymphocytes Absolute Manual 0.43 10^3/uL (1.20-3.80); Monocytes Absolute Manual 0.12 10^3/uL (0.30-0.80); Segmented Neut Absolute Manual 5.64 10^3/uL (1.4-6.5)
[2024-01-13 21:10] LABS: Anisocytosis 1+; Hypochromasia 1+
[2024-01-14] VITALS (63 sets, daily range): BP systolic 91–134; BP diastolic 58–82; PULSE 84–141; RESP 20; TEMP 36.3–36.7; O2SAT 88–112
[2024-01-14] MEDS: METHYLPREDNISOLONE SOD SUCC PF 40 MG/ML VIAL IVP ×3 (04:00→19:46)
[2024-01-14] MEDS: IPRATROPIUM/ALBUTEROL SULFATE 3 ML AMPUL.NEB IH ×4 (04:11→22:39)
[2024-01-14 04:42] LABS: HCO3 ABG 29.6 mmol/L (22.0-26.0); pH ABG 7.305 (7.350-7.450)
[2024-01-14 04:43] LABS: Allen Test POSITIVE (POSITIVE); Base Excess ABG 3.2 mmol/L (-2.0-2.0); Fractionated Inspired Oxygen 30 %; Liters per Minute 20; O2 Mode BIPAP; Oxygen Saturation ABG 98.6 %; Puncture Site RR
[2024-01-14 04:45] LABS: BIPAP Pressure 16/8
[2024-01-14 04:47] LABS: ABG PCO2 59.4 mmHg (35.0-45.0)
--- NOTE | 2024-01-14 06:00 | XR_ITS ---
The [address] [address] Patient Name: THANH ESPINOZA MRN: [id number] date: 1935 Sex: M Assigned Patient Location: ICU Current Patient Location: ICU Accession/Order Number: [id number] Exam Date: 01/14/2024 06:08 Report Date: 01/14/2024 07:47 At the request of: SHAIKH WADE Procedure: XR chest 1V EXAMINATION: XR chest 1V HISTORY: SOB COMPARISON: XR chest 01/13/2024 FINDINGS: LUNGS: Mild haziness and stranding within lung bases and slight peripheral septal thickening. VASCULATURE: No increased pulmonary vasculature. PLEURA: Trace amount left pleural fluid. CARDIAC: Borderline mild cardiomegaly. Stable cardiac pacer. MEDIASTINUM: No visible mass or adenopathy. BONES: No fracture or visible bone lesion. OTHER: Negative. XR/XR chest 1V IMPRESSION: 1. Small left pleural effusion and mild bilateral infiltrates suggestive of pulmonary edema. Findings have improved compared to yesterday. Electronically authenticated by: RINA HANSON Date: 01/14/2024 07:47
[2024-01-14 06:07] LABS: Basophils Percent Auto 0.1 % (0.2-2.0); Hematocrit 45.4 % (42.0-54.0); Hemoglobin 12.6 g/dL (14.0-18.0); Immature Granulocytes Abs Auto 0.03 10^3/uL (0.00-0.03); Immature Granulocytes Pct Auto 0.3 % (0.0-0.5); Lymphocytes Absolute Auto 0.7 10^3/uL (1.2-3.8); Lymphocytes Percent Auto 7.3 % (20.5-60.0); Mean Corpuscular HGB Conc 27.8 g/dL (29.9-35.2); Mean Corpuscular Hemoglobin 22.5 pg (25.9-34.0); Mean Corpuscular Volume 81.1 fL (80.0-94.0); Monocytes Absolute Auto 0.4 10^3/uL (0.3-0.8); Monocytes Percent Auto 4.7 % (1.7-12.0); Neutrophils Absolute Auto 7.8 10^3/uL (1.4-6.5); Neutrophils Percent Auto 87.6 % (43.0-75.0); Platelet Count 147 10^3/uL (150-450); Red Cell Distribution Width 18.8 % (11.0-15.0); White Blood Count 8.9 10^3/uL (4.0-11.0)
[2024-01-14] MEDS: DILTIAZEM HCL 60 MG TABLET PO (06:20)
[2024-01-14 06:26] LABS: Alanine Aminotransferase 15 U/L (16-63); Albumin Globulin Ratio 0.8; Albumin Level 3.1 g/dL (3.4-5.0); Alkaline Phosphatase 80 U/L (46-116); Anion Gap 8.5; Aspartate Amino Transferase 10 U/L (15-37); BUN Creatinine Ratio 18.1; Bilirubin Total 0.8 mg/dL (0.2-1.0); Calcium 8.9 mg/dL (8.5-10.1); Carbon Dioxide 30.4 mmol/L (21.0-32.0); Chloride 104 mmol/L (98-107); Estimated GFR (African America 34 (>=60); Estimated GFR (Non-African Ame 28 (>=60); Glucose 170 mg/dL (74-106); Potassium 3.9 mmol/L (3.5-5.1); Sodium 139 mmol/L (136-145); Total Protein 7.1 g/dL (6.4-8.2)
--- NOTE | 2024-01-14 06:39 | PC.NURSE ---
SPO2 at 89% with patient on 1 LNC. Oxygen increased to 2 lNC.
[2024-01-14] MEDS: FUROSEMIDE 40 MG/4 ML VIAL IVP ×3 (08:46→19:46)
--- NOTE | 2024-01-14 09:28 | CM.NOTE ---
Rounds made with Dr. Pardo. Dr. Pardo discusses plan of care and findings with Mr. Coleman. Would like Mr. Coleman to continue on BiPap. Cardiology consulted.
[2024-01-14] MEDS: ASPIRIN 81 MG TAB.CHEW PO (10:26)
[2024-01-14] MEDS: CETIRIZINE HCL 10 MG TABLET PO (10:26)
[2024-01-14] MEDS: AZITHROMYCIN 250 MG TABLET PO (10:26)
[2024-01-14] MEDS: CHOLECALCIFEROL (VITAMIN D3) 25 MCG/1,000 UNITS TABLET 50 MCG PO (10:26)
[2024-01-14] MEDS: EZETIMIBE 10 MG TABLET PO (10:27)
[2024-01-14] MEDS: MEMANTINE HCL 7 MG CAP XR 14 MG PO (10:27)
[2024-01-14] MEDS: OMEPRAZOLE 40 MG CAPSULE.DR PO ×2 (10:27→21:42)
[2024-01-14] MEDS: METOPROLOL SUCCINATE 50 MG TAB.ER.24H PO ×2 (10:28→21:43)
[2024-01-14] MEDS: DIGOXIN 500 MCG/2 ML AMPUL 125 MCG IV ×2 (10:28→19:47)
--- NOTE | 2024-01-14 10:36 | REH.PTDLY ---
Physical Therapy Daily Note PT Daily Note/Assess Start: 01/14/24 10:29 Freq: Status: Active Protocol: Document 01/14/24 10:29 JOLANTA (Rec: 01/14/24 10:35 JOLANTA [id number]) Physical Therapy Daily Note/Assessment Time In 09:50 Time Out 10:24 Subjective Pt sleeping upon arrival on bipap, but easily aroused. Nursing states it is ok to work with patient. Pt is agreeable to therapy. Therapeutic Exercise Minutes (minutes) 10 Therapeutic Exercise Units 1 Therapeutic Exercise Treatment Pt performs AROM B LE supine exs 15x ea for improved strength with cues for pt to slow down with exs and rest as to not get HR too elevated. Instructed in B LE seated exs 10x ea bedside with LAQ, marching, and hip abd. Therapeutic Activity Minutes (minutes) 13 Therapeutic Activity Units 1 Therapeutic Activity Comments Supine to sit transfers Min A. Good bedside seated balance noted while performing exs. Sit to stand transfers CGA. Pt ambulates with RW 5 steps to and from bedside commode. Static standing for 2 minsx2. Min A with sit to supine transfer to avoid leg getting tangled in munoz. Total Therapy Minutes 23 Total Physical Therapy Units 2 Daily Note Summary Pt mildly impulsive with transfers and gait, cues needed for safety. Cues needed as well with exs for pt to perform at slower rate. Continue to progress gait distance as tolerated.
--- NOTE | 2024-01-14 11:07 | PM.IMPN1 ---
Progress Note: A&P Assessment and Plan (1) Acute respiratory failure with hypercapnia: Assessment and Plan: Acute resp failure with hypercapnia. ABG last evening showed PCO2 73, improved to 59 but still quite high for him. Patient is lethargic, drowsy. BIPAP was taken off this morning. Asked RN to place BIPAP back on. Repeat ABG in one hour. (2) Acute respiratory failure with hypoxia: Assessment and Plan: Comfortable on 2 L and maintains his sats while on 2 needs BIPAP for acute resp failure with hypercapnia. (3) COPD exacerbation: Assessment and Plan: Improved air entry, minimal wheezing. C/w duonebs, steroids. (4) Acute on chronic systolic (congestive) heart failure: Assessment and Plan: Volume overload still, elevated BNP. IVC dilated on ECHO. ECHO shows severely reduced EF. Previously his EF was normal on ECHO 02/10 C/w Lasix 40 q12, monitor I/o, daily weight. Cardiology consulted. (5) Atrial fibrillation with RVR: Assessment and Plan: HR Poorly controlled but remained below 130. D/c cardizem as patient has low ED. Started on Toprol 50 q12, IV digoxin load. Monitor HR, BP closely. Cardiology consult pending. (6) CAD (coronary artery disease): Assessment and Plan: No evidence of active cardiac ischemia. Denies CP. Monitor. Qualifiers: Coronary Disease-Associated Artery/Lesion type: [place] artery [place] vs. transplanted heart: [place] heart Associated angina: without angina Qualified Code(s): I25.10 - Atherosclerotic heart disease of [place] coronary artery without angina pectoris (7) Dementia: Assessment and Plan: Monitor. precautions for sundowning/delirium Qualifiers: Dementia type: Alzheimer's Alzheimer's disease onset: late onset Dementia severity: moderate Dementia behavioral or psychological symptom: without behavioral, psychotic, or mood disturbance or anxiety Qualified Code(s): G30.1 - Alzheimer's disease with late onset; F02.B0 - Dementia in other diseases classified elsewhere, moderate, without behavioral disturbance, psychotic disturbance, mood disturbance, and anxiety (8) Hyperlipemia: Assessment and Plan: c/w home medications. Qualifiers: Hyperlipidemia type: unspecified Qualified Code(s): E78.5 - Hyperlipidemia, unspecified Plan 35 minutes of critical care time spent on patient's evaluation, clinical assessment, co ordination of care with RN, RT, formulation of treatment plan. Patient has acute resp failure with hypoxia, hypercapnia and is at high risk of clinical worsening and risk of respiratory compromise/. Internal Medicine - PN: Subj Subjective Interval history: Seen and examined. Lethargic/drowsy. Wakes up on stimulus but goes back to sleep right away. Last evening, he became obtunded and required transfer to ICU for acute resp failure with hypercapnia. He was placed on BIPAP and his mental status has improved overnight alongwith hypercapnia as measured on ABG this morning. Exam Constitutional Vital Signs, click to edit/add: Last Vital Signs Temp 98.0 F 01/14/24 08:20 Pulse 113 H 01/14/24 10:40 Resp 33 H 01/14/24 10:30 BP 108/75 01/14/24 09:00 Pulse Ox 96 01/14/24 10:41 O2 Del Method Nasal Cannula 01/14/24 10:41 O2 Flow Rate 2 01/14/24 10:41 FiO2 30 01/14/24 09:00 General appearance: cooperative, lethargic, ill appearing and frail appearing Orientation/consciousness: Yes confused Respiratory Common normals: normal respiratory effort and clear to auscultation bilaterally Effort & inspection: able to speak in complete sentences Auscultation: diminished lung sounds Cardio Common normals: S1 normal heart sound and S2 normal heart sound Jugular venous distention: JVD Rate: tachycardic Rhythm: abnormal rhythm GI Common normals: Normal to inspection, nondistended, normoactive bowel sounds present, soft to palpation, non-tender and no hepatosplenomegaly Palpation: hernia other (incisional hernia - soft. ) Extremity Common normals: normal to inspection and full ROM Neuro Common normals: moves all extremities Sensorium/orientation: orientation impaired, lethargic and somnolent Speech: speech normal Gait (neuro): unable to assess gait Psych Common normals: cooperative, denies homicidal ideation and denies suicidal ideation Internal Medicine - PN: Obj Da Labs Labs: Laboratory Results - last 24 hr 01/13/24 01/13/24 01/13/24 18:47 19:10 19:46 WBC 6.2 RBC 5.87 Hgb 13.1 L Hct 47.4 MCV 80.7 MCH 22.3 L MCHC 27.6 L RDW 19.1 H Plt Count 149 L Neut % (Auto) Lymph % (Auto) [place] % (Auto) Eos % (Auto) Baso % (Auto) Neut # (Auto) Lymph # (Auto) [place] # (Auto) Eos # (Auto) Baso # (Auto) Abs Immat Gran (auto) Seg Neuts % (Manual) 91.0 H Lymphocytes % (Manual) 7.0 L Monocytes % (Manual) 2.0 Eosinophils % (Manual) 0.0 L Basophils % (Manual) 0.0 L Imm/Tot Granulo (auto) Neutrophils # (Manual) 5.64 Lymphocytes # (Manual) 0.43 L Monocytes # (Manual) 0.12 L Eosinophils # (Manual) 0.00 Basophils # (Manual) 0.00 Hypochromasia 1+ Anisocytosis 1+ Puncture Site Lr ABG pH 7.235 L* ABG pCO2 73.1 H* ABG pO2 105.0 H ABG HCO3 30.9 H ABG O2 Saturation 97.8 ABG Base Excess 3.5 H Josue Test Positive O2 Liters/Min 3 FiO2 BiPAP Sodium 139 Potassium 4.4 Chloride 103 Carbon Dioxide 31.3 Anion Gap 9.1 BUN 30.0 H Creatinine 1.62 H Est GFR ( Amer) 49 L Est GFR (Non-Af Amer) 40 L BUN/Creatinine Ratio 18.5 Glucose 198 H Calcium 9.2 Total Bilirubin 1.0 AST 13 L ALT 16 Alkaline Phosphatase 93 Troponin I High Sens 34.4 NT-Pro-B Natriuret Pep Total Protein 7.7 Albumin 3.3 L Globulin 4.4 Albumin/Globulin Ratio 0.8 POC Glucose 206 H 01/14/24 01/14/24 04:25 05:55 WBC 8.9 RBC 5.60 Hgb 12.6 L Hct 45.4 MCV 81.1 MCH 22.5 L MCHC 27.8 L RDW 18.8 H Plt Count 147 L Neut % (Auto) 87.6 H Lymph % (Auto) 7.3 L [place] % (Auto) 4.7 Eos % (Auto) 0.0 L Baso % (Auto) 0.1 L Neut # (Auto) 7.8 H Lymph # (Auto) 0.7 L [place] # (Auto) 0.4 Eos # (Auto) 0.0 Baso # (Auto) 0.0 Abs Immat Gran (auto) 0.03 Seg Neuts % (Manual) Lymphocytes % (Manual) Monocytes % (Manual) Eosinophils % (Manual) Basophils % (Manual) Imm/Tot Granulo (auto) 0.3 Neutrophils # (Manual) Lymphocytes # (Manual) Monocytes # (Manual) Eosinophils # (Manual) Basophils # (Manual) Hypochromasia Anisocytosis Puncture Site Rr ABG pH 7.305 L ABG pCO2 59.4 H* ABG pO2 104.0 H ABG HCO3 29.6 H ABG O2 Saturation 98.6 ABG Base Excess 3.2 H Josue Test Positive O2 Liters/Min 20 FiO2 30 BiPAP 16/8 Sodium 139 Potassium 3.9 Chloride 104 Carbon Dioxide 30.4 Anion Gap 8.5 BUN 40.0 H Creatinine 2.21 H Est GFR ( Amer) 34 L Est GFR (Non-Af Amer) 28 L BUN/Creatinine Ratio 18.1 Glucose 170 H Calcium 8.9 Total Bilirubin 0.8 AST 10 L ALT 15 L Alkaline Phosphatase 80 Troponin I High Sens NT-Pro-B Natriuret Pep 2663.0 H* Total Protein 7.1 Albumin 3.1 L Globulin 4.0 Albumin/Globulin Ratio 0.8 POC Glucose Urinary Catheter Management Urinary Catheter Management Urethral: Cath placed during this visit: yes Urethral indwelling: No Insertion date: 01/13/24 Insertion time: 09:27
--- NOTE | 2024-01-14 11:22 | SWNOTE1 ---
Pt does have moments of confusion. SW to complete assessment with pt, but also spoke with daughter, Rajwinder, over the phone. She voiced he is happy with his care at [facility] and plan is for him to return. She stated he has been for for around 1 year. He does not wear oxygen at [facility], may need at discharge. Pt's daughter did ask if he will continue breathing treatments at [facility], SW advised that the doctor will determine this when he is closer to being medically stable for discharge. Rajwinder had no further questions. Important Message from Medicare reviewed and discussed with patient's daughter over the phone. Pt's daughter verbalized understanding and gave permission for social sciences professor to sign. Original placed in pt's room and copy placed in patient?s chart. PILY did reach out to Bee at [facility] to see what pt's baseline is at [facility]? She did send message back and pt does use a front wheeled walker to get around at [facility].
[2024-01-14 16:11] LABS: Allen Test POS (POSITIVE); Base Excess ABG 1.3 mmol/L (-2.0-2.0); Fractionated Inspired Oxygen 30 %; HCO3 ABG 27.6 mmol/L (22.0-26.0); O2 Mode BIPAP; Oxygen Saturation ABG 98.2 %; pH ABG 7.308 (7.350-7.450)
[2024-01-14 16:12] LABS: BIPAP Pressure 16/8; Minute Volume 14.4; Pressure Support 8; Puncture Site L RADIAL; Rate 20; Tidal Volume 503
[2024-01-14] MEDS: ATORVASTATIN CALCIUM 40 MG TABLET PO (21:42)
[2024-01-14] MEDS: FENOFIBRATE 54 MG TABLET PO (21:43)
[2024-01-14] MEDS: DONEPEZIL HCL 10 MG TABLET PO (21:43)
[2024-01-15] VITALS (46 sets, daily range): BP systolic 88–131; BP diastolic 49–80; PULSE 83–106; TEMP 36.6–36.8; O2SAT 84–95
[2024-01-15] MEDS: DIGOXIN 500 MCG/2 ML AMPUL 125 MCG IV (01:33)
[2024-01-15] MEDS: IPRATROPIUM/ALBUTEROL SULFATE 3 ML AMPUL.NEB IH ×3 (04:40→23:14)
[2024-01-15 06:02] LABS: Basophils Percent Auto 0.2 % (0.2-2.0); Hematocrit 39.9 % (42.0-54.0); Hemoglobin 11.6 g/dL (14.0-18.0); Immature Granulocytes Abs Auto 0.12 10^3/uL (0.00-0.03); Lymphocytes Absolute Auto 0.6 10^3/uL (1.2-3.8); Lymphocytes Percent Auto 5.1 % (20.5-60.0); Mean Corpuscular HGB Conc 29.1 g/dL (29.9-35.2); Mean Corpuscular Hemoglobin 22.7 pg (25.9-34.0); Mean Corpuscular Volume 78.1 fL (80.0-94.0); Monocytes Absolute Auto 0.7 10^3/uL (0.3-0.8); Monocytes Percent Auto 5.5 % (1.7-12.0); Neutrophils Absolute Auto 11.1 10^3/uL (1.4-6.5); Neutrophils Percent Auto 88.2 % (43.0-75.0); Platelet Count 163 10^3/uL (150-450); Red Blood Count 5.11 10^6/uL (4.70-6.10); Red Cell Distribution Width 18.5 % (11.0-15.0); White Blood Count 12.6 10^3/uL (4.0-11.0)
[2024-01-15 06:17] LABS: Alanine Aminotransferase 18 U/L (16-63); Albumin Globulin Ratio 0.8; Albumin Level 2.7 g/dL (3.4-5.0); Alkaline Phosphatase 66 U/L (46-116); Anion Gap 11.5; Aspartate Amino Transferase 24 U/L (15-37); BUN Creatinine Ratio 27.3; Bilirubin Total 0.5 mg/dL (0.2-1.0); Calcium 8.6 mg/dL (8.5-10.1); Carbon Dioxide 28.2 mmol/L (21.0-32.0); Chloride 103 mmol/L (98-107); Estimated GFR (African America 31 (>=60); Estimated GFR (Non-African Ame 26 (>=60); Globulin 3.4 g/dL; Glucose 214 mg/dL (74-106); Potassium 4.7 mmol/L (3.5-5.1); Sodium 138 mmol/L (136-145); Total Protein 6.1 g/dL (6.4-8.2)
[2024-01-15] MEDS: OMEPRAZOLE 40 MG CAPSULE.DR PO ×2 (08:14→21:04)
[2024-01-15] MEDS: AZITHROMYCIN 250 MG TABLET PO (08:14)
[2024-01-15] MEDS: CETIRIZINE HCL 10 MG TABLET PO (08:14)
[2024-01-15] MEDS: MEMANTINE HCL 7 MG CAP XR 14 MG PO (08:14)
[2024-01-15] MEDS: METHYLPREDNISOLONE SOD SUCC PF 40 MG/ML VIAL IVP (08:14)
[2024-01-15] MEDS: CHOLECALCIFEROL (VITAMIN D3) 25 MCG/1,000 UNITS TABLET 50 MCG PO (08:14)
[2024-01-15] MEDS: EZETIMIBE 10 MG TABLET PO (08:14)
[2024-01-15] MEDS: ASPIRIN 81 MG TAB.CHEW PO (08:14)
[2024-01-15] MEDS: METOPROLOL SUCCINATE 50 MG TAB.ER.24H 75 MG PO ×2 (08:18→21:04)
[2024-01-15] MEDS: FUROSEMIDE 40 MG/4 ML VIAL IVP (08:18)
--- NOTE | 2024-01-15 10:15 | CM.NOTE ---
Rounds made with Dr. Pardo, awaiting cardiology consult for further recommendations. Pt HR remains tachycardic, discussed plan of care with pt. Pt will transfer to Med-surg on telemetry today.
--- NOTE | 2024-01-15 10:23 | PM.IMPN1 ---
Progress Note: A&P Assessment and Plan (1) Acute respiratory failure with hypercapnia: Assessment and Plan: Acute resp failure with hypercapnia. Improved now. BIPAP qhs and as needed. Due to underlying COPD exacerbation/CHF exacerbation (2) Acute respiratory failure with hypoxia: Assessment and Plan: Comfortable on 2 L and maintains his sats while on 2 L (3) COPD exacerbation: Assessment and Plan: Improved air entry, minimal wheezing. Switch to PO Prednisone, albuterol to Q8H and as needed. (4) Acute on chronic systolic (congestive) heart failure: Assessment and Plan: Appears euvolemic today. Hold lasix. ECHO shows severely reduced EF. Previously his EF was normal on ECHO 02/10 Monitor I/o, daily weight. Cardiology consulted. (5) Atrial fibrillation with RVR: Assessment and Plan: HR is now well controlled. Previously was on PO Cardizem that was switched to Toprol due to new finding of systolic dysfunction on ECHO. Switch IV dig to PO dig. Switch to 75 mg Toprol. He was started on 50 mg Toprol yesterday. Cardiology consult pending. (6) CAD (coronary artery disease): Assessment and Plan: No evidence of active cardiac ischemia. Denies CP. Monitor. Qualifiers: Coronary Disease-Associated Artery/Lesion type: [place] artery [place] vs. transplanted heart: [place] heart Associated angina: without angina Qualified Code(s): I25.10 - Atherosclerotic heart disease of [place] coronary artery without angina pectoris (7) Dementia: Assessment and Plan: Monitor. precautions for sundowning/delirium Qualifiers: Dementia type: Alzheimer's Alzheimer's disease onset: late onset Dementia severity: moderate Dementia behavioral or psychological symptom: without behavioral, psychotic, or mood disturbance or anxiety Qualified Code(s): G30.1 - Alzheimer's disease with late onset; F02.B0 - Dementia in other diseases classified elsewhere, moderate, without behavioral disturbance, psychotic disturbance, mood disturbance, and anxiety (8) Hyperlipemia: Assessment and Plan: c/w home medications. Qualifiers: Hyperlipidemia type: unspecified Qualified Code(s): E78.5 - Hyperlipidemia, unspecified Plan Stable for transfer to med surg floor. Internal Medicine - PN: Subj Subjective Interval history: Seen and examined. No overnight events. HR is now well controlled. Still in Afib. Patient is awake and alert. Doing well overall. Good UO on lasix, had about 800 ml overnight. Exam Constitutional Vital Signs, click to edit/add: Last Vital Signs Temp 98.3 F 01/15/24 07:58 Pulse 87 01/15/24 10:00 Resp 28 H 01/15/24 08:00 BP 88/49 L 01/15/24 07:42 Pulse Ox 93 L 01/15/24 08:00 O2 Del Method Nasal Cannula 01/15/24 07:58 O2 Flow Rate 2 01/15/24 07:58 FiO2 30 01/14/24 22:39 General appearance: cooperative and frail appearing Orientation/consciousness: Yes confused Respiratory Common normals: normal respiratory effort Effort & inspection: able to speak in complete sentences Auscultation: crackles (only at the bases) Laterality: bilateral Cardio Common normals: S1 normal heart sound and S2 normal heart sound Rhythm: abnormal rhythm GI Common normals: Normal to inspection, nondistended, normoactive bowel sounds present, soft to palpation, non-tender and no hepatosplenomegaly Palpation: hernia other (incisional hernia - soft. ) Extremity Common normals: normal to inspection and full ROM Neuro Common normals: moves all extremities Sensorium/orientation: orientation impaired Speech: speech normal Gait (neuro): unable to assess gait Psych Common normals: cooperative, denies homicidal ideation and denies suicidal ideation Internal Medicine - PN: Obj Da Labs Labs: Laboratory Results - last 24 hr 01/14/24 01/15/24 15:55 05:16 WBC 12.6 H RBC 5.11 Hgb 11.6 L Hct 39.9 L MCV 78.1 L MCH 22.7 L MCHC 29.1 L RDW 18.5 H Plt Count 163 Neut % (Auto) 88.2 H Lymph % (Auto) 5.1 L [place] % (Auto) 5.5 Eos % (Auto) 0.0 L Baso % (Auto) 0.2 Neut # (Auto) 11.1 H Lymph # (Auto) 0.6 L [place] # (Auto) 0.7 Eos # (Auto) 0.0 Baso # (Auto) 0.0 Abs Immat Gran (auto) 0.12 H Imm/Tot Granulo (auto) 1.0 H Puncture Site L radial ABG pH 7.308 L ABG pCO2 55.0 H* ABG pO2 102.0 H ABG HCO3 27.6 H ABG O2 Saturation 98.2 ABG Base Excess 1.3 Josue Test Pos Minute Volume 14.4 FiO2 30 Tidal Volume 503 Pressure Support 8 BiPAP 16/8 Sodium 138 Potassium 4.7 Chloride 103 Carbon Dioxide 28.2 Anion Gap 11.5 BUN 65.0 H Creatinine 2.38 H Est GFR ( Amer) 31 L Est GFR (Non-Af Amer) 26 L BUN/Creatinine Ratio 27.3 Glucose 214 H Calcium 8.6 Total Bilirubin 0.5 AST 24 ALT 18 Alkaline Phosphatase 66 Total Protein 6.1 L Albumin 2.7 L Globulin 3.4 Albumin/Globulin Ratio 0.8 Urinary Catheter Management Urinary Catheter Management Urethral: Cath placed during this visit: yes Urethral indwelling: No Insertion date: 01/13/24 Insertion time: 09:27
--- NOTE | 2024-01-15 10:31 | REH.PTDLY ---
Physical Therapy Daily Note PT Daily Note/Assess Start: 01/14/24 10:29 Freq: Status: Active Protocol: Document 01/15/24 09:50 NICOLLENATY (Rec: 01/15/24 10:31 JOLANTA [id number]) Physical Therapy Daily Note/Assessment Time In 09:30 Time Out 09:48 Subjective No new complaints, pt is awake and on 2 L of O2 sitting up in bed. Therapeutic Exercise Minutes (minutes) 7 Therapeutic Exercise Units 0 Therapeutic Exercise Treatment Instructed in B LE seated exs 10x ea for improved strength. Exs include LAQ, marching, hip abd, and hip add Therapeutic Activity Minutes (minutes) 8 Therapeutic Activity Units 1 Therapeutic Activity Comments Min A with supine to sit transfers. Sit to stand transfers CGA with bed not raises. Gait training with RW 30 feet in room with 2 L of O2 . Cues with turning to not get tangled in O2 cord. Sits in chair with cues for pt to reach back for chair. Total Therapy Minutes 15 Total Physical Therapy Units 1 Daily Note Summary Pt does well with gait using RW. Minimal assistance needed to transfer out of bed. Pt denies any increase in pain or SOB with treatment.
--- NOTE | 2024-01-15 12:54 | XR_ITS ---
[address] [address] Patient Name: THAHN ESPINOZA MRN: [id number] date: 1935 Sex: M Assigned Patient Location: ICU Current Patient Location: ICU Accession/Order Number: [id number] Exam Date: 01/15/2024 12:55 Report Date: 01/15/2024 13:59 At the request of: SHAIKH WADE Procedure: XR chest 2V EXAMINATION: XR chest 2V HISTORY: fluid overload COMPARISON: XR chest 01/14/2024 FINDINGS: LUNGS: Mild haziness and stranding within right lung base and lateral left lingula. VASCULATURE: No increased pulmonary vasculature. PLEURA: No pneumothorax, effusion, or pleural thickening. CARDIAC: Suspect mild cardiomegaly. Stable cardiac pacer and leads. MEDIASTINUM: No visible mass or adenopathy. BONES: No fracture or visible bone lesion. OTHER: Negative. XR/XR chest 2V IMPRESSION: 1. Underexpanded lungs with mild bibasilar atelectasis versus infiltrates, left slightly greater than right. 2. Stable mild cardiomegaly. Electronically authenticated by: RINA HANSON Date: 01/15/2024 13:59
--- NOTE | 2024-01-15 12:55 | PC.NURSE ---
cardiology microbiology manager at bedside. stat cxr ordered per verbal. microbiology manager contacting daughter michelle to discuss plan of care
--- NOTE | 2024-01-15 14:26 | SWNOTE1 ---
Updated physician notes, diagnostic imaging, labs, vitals, and therapy notes sent to Bee at [facility], she will provide to Caden Evans. SW did ask Bee what they would need if pt does need HH/therapy? Waiting for response.
--- NOTE | 2024-01-15 16:45 | P.CACN_ITS ---
History of Present Illness History of Present Illness Consult date: 01/15/24 Requesting physician: Shaikh Edvin Consult reason: atrial fibrillation and congestive heart failure Chief complaint: SOB/A FIB W/RVR/ COPD EXACERBATION Narrative: Patient is a 88 y/o M with known PMHx of CAD with prior hx of stents (unsure of when or where), a.fib, pacemaker, AAA s/p repair, diastolic heart failure, COPD, hx of GI bleed last year, dementia, carotid artery stenosis who presented to [facility] with c/o increased SOB. He was found to have acute hypoxic respiratory failure along with COPD exacerbation, HFpEF exacerbation and a.fib with RVR. He is a kn own patient to cardiology at [facility]. Patient was last seen by his consumer studies professor in October,. At that time they reviewed his stress test from 03/2023 which was abnormal and showed severely reduced EF. Cardiac cath was discussed but patient had declined any procedures. Cardiology consulted during this admission for management of a.fib and heart failure. He remains in a.fib, HR currently controlled. He is on Toprol 75mg BID and digoxin 125mcg daily. His ECHO yesterday showed severely reduced EF of 15- 20%, moderately elevated right sided pressures with RVSP at 48, dilated IVC, mod MR, mild TR. He has been on IVP lasix 40mg BID. His renal function has been increasing, currently at 2.38 today. He remains on O2 via NC, he does not wear O2 at home. Patient states he feels okay. Denies c/o CP, dyspnea, orthopnea, PND, dizziness/LH, palpitations. Patient is a poor historian. Discussed ischemic evaluation with patient, he would consider a heart cath. Review of Systems ROS Status of ROS 10 or more systems reviewed and unremark able except as noted in history and below Respiratory Reports: shortness of breath [facility] Medical History (Updated 01/14/24 @ 14:19 by Shaikh Edvin MD) Dementia ?F03.90 - Unspecified dementia, unspecified severity, without behavioral disturbance, psychotic disturbance, mood disturbance, and anxiety (ICD-10) Presence of permanent cardiac pacemaker ?Z95.0 - Presence of cardiac pacemaker (ICD-10) Afib ?I48.91 - Unspecified atrial fibrillation (ICD-10) CAD (coronary artery disease) ?I25.10 - Atherosclerotic heart disease of [place] coronary artery without angina pectoris (ICD-10) Anxiety ?F41.9 - Anxiety disorder, unspecified (ICD-10) Hyperlipemia ?E78.5 - Hyperlipidemia, unspecified (ICD-10) Anemia ?D64.9 - Anemia, unspecified (ICD-10) Abdominal aneurysm without mention of rupture ?I71.40 - Abdominal aortic aneurysm, without rupture, unspecified (ICD-10) COPD (chronic obstructive pulmonary disease) ?J44.9 - Chronic obstructive pulmonary disease, unspecified (ICD-10) Surgical History (Updated 01/13/24 @ 13:25 by Shaikh Edvin MD) H/O abdominal aortic aneurysm repair ?Z98.890 - Other specified postprocedural states (ICD-10) Social History (Updated 01/13/24 @ 13:25 by Shaikh Edvin MD) Within the past year, how often did you have a drink containing alcohol: never Score interpretation: A score less than 4 is consistent with normal alcohol consumption. Smoking status: Former smoker Non-prescribed substance use: denies use Highest level of school completed/degree received: high school graduate Little interest or pleasure in doing things: not at all Feeling down, depressed, or hopeless: not at all Gender Identity: male Meds Home Medications and Allergies Home Medications ?Medication ?Instructions ?Recorded ?Confirmed ?Type aspirin 81 mg chewable tablet 1 tab PO DAILY 01/13/24 01/13/24 History atorvastatin 40 mg tablet 40 mg PO BEDTIME 01/13/24 01/13/24 History cholecalciferol (vitamin D3) 50 50 mcg PO DAILY 01/13/24 01/13/24 History mcg (2,000 unit) tablet donepezil 10 mg tablet 10 mg PO BEDTIME 01/13/24 01/13/24 History ezetimibe 10 mg tablet 10 mg PO DAILY 01/13/24 01/13/24 History fenofibrate 54 mg tablet 54 mg PO BEDTIME 01/13/24 01/13/24 History ipratropium 0.5 mg-albuterol 3 mg 3 ml inhalation Q4H PRN shortness 01/13/24 01/13/24 History (2.5 mg base)/3 mL nebulization of breath soln loratadine 10 mg tablet 10 mg PO DAILY 01/13/24 01/13/24 History memantine 10 mg tablet 10 mg PO DAILY 01/13/24 01/13/24 History nicotine 21 mg/24 hr daily 1 patch transdermal DAILY 01/13/24 01/13/24 History transdermal patch pantoprazole 40 mg tablet,delayed 40 mg PO Q12H 01/13/24 01/13/24 History release psyllium husk 0.4 gram capsule 0.4 g PO BID 01/13/24 01/13/24 History Allergies Allergy/AdvReac Type Severity Reaction Status Date / Time banana Allergy Mild Abdominal Verified 01/13/24 08:43 Pain pollen extracts Allergy Mild Abdominal Verified 01/13/24 08:43 Pain Exam Constitutional Vital Signs, click to edit/add: Last Vital Signs Temp 98.3 F 01/15/24 07:58 Pulse 90 01/15/24 14:35 Resp 18 01/15/24 14:35 BP 109/64 01/15/24 11:02 Pulse Ox 95 01/15/24 14:35 O2 Del Method Nasal Cannula 01/15/24 14:35 O2 Flow Rate 2 01/15/24 14:35 FiO2 30 01/14/24 22:39 Common normals: no apparent distress and alert Orientation/consciousness: Yes oriented to person and Yes oriented to place Other: forgetful HENMT Common normals: normocephalic and head/scalp atraumatic Nose: external nose normal Eye Common normals: PERRL and EOMs intact bilaterally Neck & C-Spine Common normals: supple General: JVD (mildly elevated) Respiratory Common normals: normal respiratory effort Auscultation: crackles Laterality: right in the lower lung [place] Cardio Common normals: S1 normal heart sound and no murmurs Rhythm: abnormal rhythm irregularly irregular GI Common normals: Normal to inspection, nondistended, normoactive bowel sounds present Extremity Common normals: full ROM General: edema (+1-2 BLE edema) Neuro Common normals: moves all extremities Sensorium/orientation: awake, alert, oriented to person and oriented to place Speech: speech normal Psych Common normals: cooperative Attitude: calm Other: forgetful Results Labs and Meds Lab results: Cardiac Enzymes 01/15/24 Range/Units 05:16 AST 24 (15-37) U/L CBC 01/15/24 Range/Units 05:16 WBC 12.6 H (4.0-11.0) 10^3/uL RBC 5.11 (4.70-6.10) 10^6/uL Hgb 11.6 L (14.0-18.0) g/dL Hct 39.9 L (42.0-54.0) % Plt Count 163 (150-450) 10^3/uL Neut # (Auto) 11.1 H (1.4-6.5) 10^3/uL Lymph # (Auto) 0.6 L (1.2-3.8) 10^3/uL [place] # (Auto) 0.7 (0.3-0.8) 10^3/uL Eos # (Auto) 0.0 (0.0-0.7) 10^3/uL Baso # (Auto) 0.0 (0.0-0.1) 10^3/uL Comprehensive Metabolic Panel 01/15/24 Range/Units 05:16 Sodium 138 (136-145) mmol/L Potassium 4.7 (3.5-5.1) mmol/L Chloride 103 (98-107) mmol/L Carbon Dioxide 28.2 (21.0-32.0) mmol/L BUN 65.0 H (7.0-18.0) mg/dL Creatinine 2.38 H (0.70-1.30) mg/dL Glucose 214 H (74-106) mg/dL Calcium 8.6 (8.5-10.1) mg/dL AST 24 (15-37) U/L ALT 18 (16-63) U/L Alkaline Phosphatase 66 (46-116) U/L Total Protein 6.1 L (6.4-8.2) g/dL Albumin 2.7 L (3.4-5.0) g/dL Intake and Output 01/15/24 01/15/24 01/15/24 07:59 15:59 23:59 Intake Total 600 / 1480 120 / 120 Output Total 850 / 1150 Balance -250 / 330 120 / 120 Intake: Oral 600 / 1480 120 / 120 Output: Urine Amount (Catheter) 850 / 1150 Urethral 850 / 1150 Assessment and Plan Assessment and Plan (1) Acute respiratory failure with hypercapnia: (2) Acute respiratory failure with hypoxia: (3) COPD exacerbation: (4) Acute on chronic systolic (congestive) heart failure: (5) Atrial fibrillation with RVR: (6) CAD (coronary artery disease): Qualifiers: Associated angina: without angina Coronary Disease-Associated Artery/Lesion type: [place] artery [place] vs. transplanted heart: [place] heart Qualified Code(s): I25.10 - Atherosclerotic heart disease of [place] coronary artery without angina pectoris (7) Dementia: Qualifiers: Alzheimer's disease onset: late onset Dementia behavioral or ps ychological symptom: without behavioral, psychotic, or mood disturbance or anxiety Dementia severity: moderate Dementia type: Alzheimer's Qualified Code(s): G30.1 - Alzheimer's disease with late onset; F02.B0 - Dementia in other diseases classified elsewhere, moderate, without behavioral disturbance, psychotic disturbance, mood disturbance, and anxiety (8) Hyperlipemia: Qualifiers: Hyperlipidemia type: unspecified Qualified Code(s): E78.5 - Hyperlipidemia, unspecified Plan #Acute on chronic systolic heart failure -EF 01/2023: preserved -EF 03/2023 on stress test severly reduced -ECHO 01/14/24 showed EF severely reduced at 15-20% -He appears to still have fluid overload on exam. CXR ordered, no vascular congestion or pleural effusions noted. His renal function has worsened since admission. Discussed with hospitalist, will reduce lasix IVP from 40mg BID to 40mg daily. -Discussed with patient and family regarding ischemic evaluation vs medical ma nagement - pt had denied ischemic evaluation earlier this year. He is currently a DNR-CCA. Family will confirm with patient his wishes and if they want to pursue coronary angiogram. If they decide to proceed with coronary angiogram, will likely need to wait to do as an outpatient and renal function returns to baseline as his CAD appears to be stable. Patient currently denies c/o CP, dyspnea, and his troponin levels have been negative. Hospitalist believes his baseline Cr is 1.5. -GDMT: continue toprol 75mg BID for rate control of a.fib. Recommend adding an SGLT2i once renal function returns to baseline. Can consider ACEi/ARB/MRA as an outpatient when renal function recovers. -Monitor strict I/Os, daily weights, renal function, maintain K+ >4 and mag >2. -Maintain 1.5L daily fluid allowance. #A.fib with RVR -HR is better controlled -Continue Toprol 75mg BID. Recommend decreasing digoxin to 125mcg every other day given renal impairment with follow-up digoxin level in 1 week. -Patient not currently on OAC due to hx of GI bleed last year requiring blood transfusion. Can consider LAAO device as an outpatient. #CAD with hx of stent -Patient denies c/o chest pain or dyspnea. -Troponin levels negative. -Continue aspirin, atorvastatin, Toprol. #Pacemaker -Intermittent pacing. Discussed plan with patient, daughter Tiffany, primary RN, and hospitalist Dr. Pardo. Patient to follow-up with primary consumer studies professor or [facility] if he wishes to transfer care - follow-up within 1 week of discharge. Thank you for the consult. Please let us know if any further questions or con cerns. Carmen Canales APRN-INSURANCE LICENSING SUPERVISOR [facility] Cardiovascular Medicine
--- NOTE | 2024-01-15 19:29 | PC.NURSE ---
Patient did not have nasal cannula in nose - reapplied 2 lts oxygen. SPO@ 87-90% on room air. SPO2 now up to 92-92 % on 2 lts.
[2024-01-15] MEDS: DONEPEZIL HCL 10 MG TABLET PO (21:04)
[2024-01-15] MEDS: FENOFIBRATE 54 MG TABLET PO (21:04)
[2024-01-15] MEDS: ATORVASTATIN CALCIUM 40 MG TABLET PO (21:04)
--- NOTE | 2024-01-15 22:23 | PC.NURSE ---
Report received from TALEND DEVELOPER. Pt care assumed. Pt transferred to room per pt bed. RN to bedside. Pt oriented to bed, room and call light. Pt repositioned in bed to position of comfort.
--- NOTE | 2024-01-15 23:50 | RESP.RT ---
Pt refused to wear BIPAP tonight.
[2024-01-16] VITALS (13 sets, daily range): BP systolic 115–126; BP diastolic 70–78; PULSE 82–108; TEMP 36.4–36.6; O2SAT 87–96
--- NOTE | 2024-01-16 03:38 | PC.NURSE ---
Pt up to the BSC for a large soft brown BM. Pt returns to bed. Call light in reach and bed alarm on
[2024-01-16 06:11] LABS: Basophils Percent Auto 0.1 % (0.2-2.0); Hematocrit 41.5 % (42.0-54.0); Immature Granulocytes Abs Auto 0.09 10^3/uL (0.00-0.03); Immature Granulocytes Pct Auto 0.8 % (0.0-0.5); Lymphocytes Absolute Auto 0.9 10^3/uL (1.2-3.8); Lymphocytes Percent Auto 7.3 % (20.5-60.0); Mean Corpuscular HGB Conc 28.9 g/dL (29.9-35.2); Mean Corpuscular Hemoglobin 22.6 pg (25.9-34.0); Mean Corpuscular Volume 78.3 fL (80.0-94.0); Mean Platelet Volume 11.2 fL (9.5-13.5); Monocytes Percent Auto 8.1 % (1.7-12.0); Neutrophils Absolute Auto 9.9 10^3/uL (1.4-6.5); Neutrophils Percent Auto 83.7 % (43.0-75.0); Platelet Count 179 10^3/uL (150-450); Red Cell Distribution Width 18.7 % (11.0-15.0); White Blood Count 11.8 10^3/uL (4.0-11.0)
[2024-01-16 06:32] LABS: Alanine Aminotransferase 22 U/L (16-63); Albumin Globulin Ratio 0.9; Albumin Level 2.9 g/dL (3.4-5.0); Alkaline Phosphatase 67 U/L (46-116); Anion Gap 8.3; Aspartate Amino Transferase 15 U/L (15-37); BUN Creatinine Ratio 31.4; Bilirubin Total 0.5 mg/dL (0.2-1.0); Calcium 8.6 mg/dL (8.5-10.1); Carbon Dioxide 32.3 mmol/L (21.0-32.0); Chloride 105 mmol/L (98-107); Estimated GFR (African America 33 (>=60); Estimated GFR (Non-African Ame 27 (>=60); Globulin 3.4 g/dL; Glucose 145 mg/dL (74-106); Potassium 4.6 mmol/L (3.5-5.1); Sodium 141 mmol/L (136-145); Total Protein 6.3 g/dL (6.4-8.2)
[2024-01-16] MEDS: FUROSEMIDE 40 MG/4 ML VIAL IVP (08:28)
[2024-01-16] MEDS: METOPROLOL SUCCINATE 50 MG TAB.ER.24H 75 MG PO (08:28)
[2024-01-16] MEDS: MEMANTINE HCL 7 MG CAP XR 14 MG PO (08:29)
[2024-01-16] MEDS: PREDNISONE 20 MG TABLET 40 MG PO (08:29)
[2024-01-16] MEDS: ASPIRIN 81 MG TAB.CHEW PO (08:29)
[2024-01-16] MEDS: DIGOXIN 125 MCG TABLET PO (08:29)
[2024-01-16] MEDS: AZITHROMYCIN 250 MG TABLET PO (08:29)
[2024-01-16] MEDS: CETIRIZINE HCL 10 MG TABLET PO (08:29)
[2024-01-16] MEDS: CHOLECALCIFEROL (VITAMIN D3) 25 MCG/1,000 UNITS TABLET 50 MCG PO (08:29)
[2024-01-16] MEDS: EZETIMIBE 10 MG TABLET PO (08:29)
[2024-01-16] MEDS: OMEPRAZOLE 40 MG CAPSULE.DR PO (08:29)
--- NOTE | 2024-01-16 09:00 | CM.NOTE ---
Discussed with pt 2nd Notice of Important Message From Medicare with pt, pt denies questions or concerns.
--- NOTE | 2024-01-16 09:10 | CM.NOTE ---
Rounds made with Dr. Pardo, pt will discharge to home today. Pt on RA, Dr. Pardo checks SPO2 and pt oxygen sat 93% on RA.
[2024-01-16] MEDS: IPRATROPIUM/ALBUTEROL SULFATE 3 ML AMPUL.NEB IH (09:31)
--- NOTE | 2024-01-16 09:54 | PM.DS1 ---
DS: Providers Provider Date of admission: 01/13/24 11:50 Primary care physician: Non-Staff PhysicianMD Admitting clinician: Shaikh Edvin Attending physician on admission: Shaikh Edvin Consults: 01/13/24 11:11 Occupational Therapy Eval and Treat Routine Reason for consultation: Ambulatory dysfunction/weakness Physical Therapy Eval and Treat Routine Reason for consultation: Ambulatory dysfunction/weakness 01/14/24 09:10 Consult to Cardiology Routine Reason for consultation: HFrEF/Afib Attending physician on discharge: Shaikh Edvin Discharging clinician: Shaikh Edvin Anticipated date of discharge: 01/16/24 DS: Diagnosis Discharge Diagnosis (1) Acute respiratory failure with hypercapnia: (2) Acute respiratory failure with hypoxia: (3) COPD exacerbation: (4) Acute on chronic systolic (congestive) heart failure: (5) Atrial fibrillation with RVR: (6) CAD (coronary artery disease): Qualifiers: Associated angina: without angina Coronary Disease-Associated Artery/Lesion type: [place] artery [place] vs. transplanted heart: [place] heart Qualified Code(s): I25.10 - Atherosclerotic heart disease of [place] coronary artery without angina pectoris (7) Dementia: Qualifiers: Alzheimer's disease onset: late onset Dementia behavioral or psychological symptom: without behavioral, psychotic, or mood disturbance or anxiety Dementia severity: moderate Dementia type: Alzheimer's Qualified Code(s): G30.1 - Alzheimer's disease with late onset; F02.B0 - Dementia in other diseases classified elsewhere, moderate, without behavioral disturbance, psychotic disturbance, mood disturbance, and anxiety (8) Hyperlipemia: Qualifiers: Hyperlipidemia type: unspecified Qualified Code(s): E78.5 - Hyperlipidemia, unspecified DS: Summary Hospital Course Hospital Course: 88 y o male with dementia, COPD, Afib s/p PPM, presented to ED with rapid HR, worsening SOB. His pulse Ox at assisted living facility was 77 % that prompted staff to call EMS. Patient on arrival had increased work of breathing with tachypnea, was using accessory muscle of respiration and was placed on BIPAP but kept removing it so he was transitioned to NC. Patient was admitted for acute respiratory failure with hypoxia sec to COPD exacerbation/acute on chronic congestive HF along with Afib with RVR. He was initially started on PO Cardizem for rate control but once it was discovered that he has systolic dysfunction, Cardizem was discontinued. He was placed on Toprol,with IV dig and his HR gradually improved during the course of admission. His rate is now well controlled on PO Toprol 100 Q12. Will not discharge on Digoxin due to his renal function. Patient's volume status also improved with IV lasix and he is felt to be euvolemic today on exam. He was treated with systemic steroids, duonebs for COPD exacerbation. Of note, he was transferred to ICU on day of admission for acute resp failure with hypercapnia as he was placed on BIPAP with gradual improvement in hypercapnia while on BIPAP and his mental status/neurological function. Patient was not started on any GDMT due to his renal function and will need to f/u with Cardiology as outpatient. He was seen by Cardiology during this admission also and their recommendation was LHC once renal fx improves vs medical management. He will benefit from outpatient PT once he is discharged that he can participate in at his residence. Patient is medically stable for discharge. Status at Discharge Functional status at discharge: uses cane/walker Overall status at discharge: patient is back to baseline Time Spent with Patient Time attestation: Total time spent providing and/or coordinating discharge services: Time spent: greater than 30 minutes Exam Constitutional Vital Signs, click to edit/add: Last Vital Signs Temp 97.8 F 01/16/24 08:20 Pulse 84 01/16/24 09:34 Resp 18 01/16/24 08:20 BP 115/70 01/16/24 08:20 Pulse Ox 94 L 01/16/24 09:34 O2 Del Method Room Air 01/16/24 09:34 O2 Flow Rate 1 01/16/24 08:20 FiO2 30 01/14/24 22:39 Common normals: oriented x3 General appearance: cooperative, comfortable and frail appearing Respiratory Common normals: normal respiratory effort Effort & inspection: able to speak in complete sentences Auscultation: crackles (only at the bases) Laterality: bilateral and wheezes expiratory wheezes and scattered wheezes Cardio Common normals: S1 normal heart sound and S2 normal heart sound Rate: regular rate Rhythm: abnormal rhythm GI Common normals: Normal to inspection, nondistended, normoactive bowel sounds present, soft to palpation, non-tender and no hepatosplenomegaly Palpation: hernia other (incisional hernia - soft. ) Extremity Common normals: normal to inspection and full ROM Neuro Common normals: moves all extremities Sensorium/orientation: awake, alert, oriented to person, oriented to place and oriented to time Speech: speech normal Gait (neuro): unable to assess gait Psych Common normals: mental status grossly normal, thought process normal, cooperative, denies homicidal ideation and denies suicidal ideation DS: Data Data Completed and Pending Labs on day of discharge: Labs from last 24 hours 01/16/24 05:54 WBC 11.8 H RBC 5.30 Hgb 12.0 L Hct 41.5 L MCV 78.3 L MCH 22.6 L MCHC 28.9 L RDW 18.7 H Plt Count 179 MPV 11.2 Neut % (Auto) 83.7 H Lymph % (Auto) 7.3 L [place] % (Auto) 8.1 Eos % (Auto) 0.0 L Baso % (Auto) 0.1 L Neut # (Auto) 9.9 H Lymph # (Auto) 0.9 L [place] # (Auto) 1.0 H Eos # (Auto) 0.0 Baso # (Auto) 0.0 Abs Immat Gran (auto) 0.09 H Imm/Tot Granulo (auto) 0.8 H Sodium 141 Potassium 4.6 Chloride 105 Carbon Dioxide 32.3 H Anion Gap 8.3 BUN 72.0 H Creatinine 2.29 H Est GFR ( Amer) 33 L Est GFR (Non-Af Amer) 27 L BUN/Creatinine Ratio 31.4 Glucose 145 H Calcium 8.6 Total Bilirubin 0.5 AST 15 ALT 22 Alkaline Phosphatase 67 Total Protein 6.3 L Albumin 2.9 L Globulin 3.4 Albumin/Globulin Ratio 0.9 Discharge Plan Discharge Disposition: Home, Self-Care Discharge Medications: New prednisone 20 mg tablet 20 mg PO BID 5 Days Qty: 10 0RF metoprolol succinate [Toprol XL] 100 mg tablet extended release 24 hr 100 mg PO BID Qty: 60 0RF furosemide [Lasix] 40 mg tablet 40 mg PO DAILY Qty: 30 0RF albuterol sulfate 90 mcg/actuation aerosol powdr breath activated 2 inh inhalation Q6H PRN (Reason: shortness of breath or wheezing) Qty: 1 0RF Continued aspirin 81 mg tablet,chewable 1 tab PO DAILY atorvastatin 40 mg tablet 40 mg PO BEDTIME donepezil 10 mg tablet 10 mg PO BEDTIME ezetimibe 10 mg tablet 10 mg PO DAILY fenofibrate 54 mg tablet 54 mg PO BEDTIME ipratropium-albuterol 0.5 mg-3 mg(2.5 mg base)/3 mL solution for nebulization 3 ml inhalation Q4H PRN (Reason: shortness of breath) loratadine 10 mg tablet 10 mg PO DAILY memantine 10 mg tablet 10 mg PO DAILY pantoprazole 40 mg tablet,delayed release (DR/EC) 40 mg PO Q12H cholecalciferol (vitamin D3) 50 mcg (2,000 unit) tablet 50 mcg PO DAILY nicotine 21 mg/24 hr patch 24 hour 1 patch transdermal DAILY psyllium husk 0.4 gram capsule 0.4 g PO BID Activity: increase activity as tolerated Diet: advance to your usual diet Print Language: Cook Islander Forms: Portal Instructions Follow Up Appointments: F/u with PCP in one week F/u with Cardiology in 2-3 weeks
--- NOTE | 2024-01-16 10:27 | PT.DAILY ---
Physical Therapy Daily Note PT Daily Note/Assess Start: 01/14/24 10:29 Freq: Status: Active Protocol: Document 01/16/24 10:25 NERI (Rec: 01/16/24 10:27 NERI [id number]) Physical Therapy Daily Note/Assessment Time In/Time Out Time In 09:55 Time Out 10:10 Pain In Pain N/A Pain Out Pain N/A Subjective Subjective Pt sitting in BS chair upon arrival. Agrees to PT. Transferred to Med Surg from ICU this morning. Therapeutic Exercise Time Therapeutic Exercise Minutes (minutes) 3 Therapeutic Exercise Units 0 Therapeutic Exercise Treatment Therapeutic Exercise Treatment Pt performs bilat LE strengthening ex prior to improve functional mobility prior to gait. Therapeutic Activity Time Therapeutic Activity Minutes (minutes) 9 Therapeutic Activity Units 1 Therapeutic Activity Treatment Chair Transfer Ability Minimum Assist Therapeutic Activity Comments Sit>sit 2x posterior LOB with Kassi on third attempt. Pt amb 100' with RW, CGA. Decreased chloe and slow on turns. Pt returned to BS chair upon arrival with call light in reach and chair alarm activated. Total Physical Therapy Time Total Therapy Minutes 12 Total Physical Therapy Units 1 Summary Daily Note Summary IMproved gait endurance.
--- NOTE | 2024-01-16 10:30 | CM.NOTE ---
Called pt's daughter about pt's discharge status. Daughter will pick pt up after work today and transport to [facility]. wood room supervisor will be around 4:00pm, notified RN.
--- NOTE | 2024-01-16 10:53 | CM.NOTE ---
Discharge summary and med list sent secure to Bee for pt to return to [facility].
--- NOTE | 2024-01-16 12:45 | CM.NOTE ---
Discussed with Bee at [facility] need for PT and order sent via secure email.
--- NOTE | 2024-01-19 15:30 | CM.DCFOLLOWU ---
No call- pt is in [place] at [facility].
== END 2024-01-16 13:13 | disposition home or self-care (01) | DRG 190 ==
LOC: ER 11:43 → MS 12:06 → ICU 20:41 → MS 01-15 22:12
PROVIDERS: Registered Nurse; Admitting Provider Internal Medicine; Emergency Provider Emergency Medicine; Visit Provider Internal Medicine
DX: J44.1 Chronic obstructive pulmonary disease with (acute) exacerbation (principal); I50.23 Acute on chronic systolic (congestive) heart failure; J96.01 Acute respiratory failure with hypoxia; J96.02 Acute respiratory failure with hypercapnia; N17.9 Acute kidney failure, unspecified; I48.91 Unspecified atrial fibrillation; I25.10 Atherosclerotic heart disease of native coronary artery without angina pectoris; G30.1 Alzheimer's disease with late onset; F02.B0 Dementia in other diseases classified elsewhere, moderate, without behavioral disturbance, psychotic disturbance, mood disturbance, and anxiety; E78.5 Hyperlipidemia, unspecified; Z87.891 Personal history of nicotine dependence; Z95.0 Presence of cardiac pacemaker; Z98.890 Other specified postprocedural states; Z79.82 Long term (current) use of aspirin; Z79.899 Other long term (current) drug therapy; Z95.5 Presence of coronary angioplasty implant and graft; Z20.822 Contact with and (suspected) exposure to COVID-19
CPT/HCPCS: 36415; 36600; 51702; 70450; 71045; 71046; 80053; 82805; 82948; 83880; 84484; 85007; 85025; 85027; 85610; 87811; 93005; 93306; 93356; 94640; 94660; 94761; 97110; 97162; 97165; 97530; 99285; J1160; J1940; J2919; J7512

== ENCOUNTER 2024-04-06 20:16 | Emergency (ER) | payer MEDICARE, MEDICAID, SELFPAY ==
[2024-04-06] VITALS (15 sets, daily range): BP systolic 180–195; BP diastolic 83–94; PULSE 60–87; TEMP 36.9; O2SAT 93–97; BMI 70.1
--- NOTE | 2024-04-06 20:23 | ECG_ITS ---
[facility] Test Date: 2024-04-06 Pat Name: THANH ESPINOZA Department: Room: - Gender: Male Bariatric Surgeon: : 1935 Requested By: [id number] Order Number: [id number] Reading MD: DOMO SCHROEDER Measurements Intervals [place] Rate: 66 P: 55 PA: 190 QRS: 264 QRSD: 154 T: 60 QT: 462 QTc: 475 Interpretive Statements [id number] Electronic atrial pacemaker [id number] Electronic ventricular pacemaker t Electronically Signed On 04-07-2024 6:49:01 EST by DOMO SCHROEDER
--- NOTE | 2024-04-06 20:29 | ED.GENADUL1 ---
HPI HPI - General Adult General Chief complaint: Dizziness Stated complaint: blood pressure Time Seen by Provider: 04/06/24 20:21 Source: patient Mode of arrival: ambulance History of Present Illness HPI narrative: 88-year-old male to the emergency department with chief complaint of episode of dizziness. Patient reports that he has been at his baseline health throughout the day today. Patient reports that he woke up from a nap sat up and had vertigo. He reports that only lasted a few minutes. He reported this to staff at the facility who took his vitals and found his blood pressure to be elevated. Patient reports he has a history of high blood pressure. He was given his medications just prior to EMS arrival. He denies any vision changes, numbness, weakness, tingling, difficulty walking, chest pain, shortness of breath, trouble speaking or any other concerns. Patient reports that he did not want to come to the emergency department but was told he had to by staff. He has no complaints at this time. No recent falls or injuries. No new medications. He reports that he has had episodes like this in the past. Related Data Home Medications ?Medication ?Instructions ?Recorded ?Confirmed aspirin 81 mg chewable tablet 1 tab PO DAILY 01/13/24 04/06/24 atorvastatin 40 mg tablet 40 mg PO BEDTIME 01/13/24 04/06/24 cholecalciferol (vitamin D3) 50 50 mcg PO DAILY 01/13/24 04/06/24 mcg (2,000 unit) tablet donepezil 10 mg tablet 10 mg PO BEDTIME 01/13/24 04/06/24 ezetimibe 10 mg tablet 10 mg PO DAILY 01/13/24 04/06/24 fenofibrate 54 mg tablet 54 mg PO BEDTIME 01/13/24 04/06/24 ipratropium 0.5 mg-albuterol 3 mg 3 ml inhalation Q4H PRN shortness 01/13/24 04/06/24 (2.5 mg base)/3 mL nebulization of breath soln loratadine 10 mg tablet 10 mg PO DAILY 01/13/24 04/06/24 memantine 10 mg tablet 10 mg PO DAILY 01/13/24 04/06/24 pantoprazole 40 mg tablet,delayed 40 mg PO Q12H 01/13/24 04/06/24 release Previous Rx's ?Medication ?Instructions ?Recorded albuterol sulfate 90 mcg/actuation 2 inh inhalation Q6H PRN shortness 01/16/24 breath activated powder inhaler of breath or wheezing #1 ea furosemide 40 mg tablet (Lasix) 40 mg PO DAILY #30 tabs 01/16/24 metoprolol succinate 100 mg 100 mg PO BID #60 tabs 01/16/24 tablet,extended release 24 hr (Toprol XL) Allergies Allergy/AdvReac Type Severity Reaction Status Date / Time banana Allergy Mild Abdominal Verified 01/13/24 08:43 Pain pollen extracts Allergy Mild Abdominal Verified 01/13/24 08:43 Pain Opioid HPI Opioid Management Most Recent Opioid Data: Last ORT Total Score 3 01/13/24 12:30 01/13/24 Last ORT Risk Category Low Risk 01/13/24 12:30 01/13/24 Review of Systems ROS Status of ROS 10 or more systems reviewed and unremarkable except as noted in history and below [facility] (Updated 04/06/24 @ 20:32 by Dat Jane MD) Acute on chronic systolic (congestive) heart failure ?I50.23 - Acute on chronic systolic (congestive) heart failure (ICD-10) Atrial fibrillation with RVR ?I48.91 - Unspecified atrial fibrillation (ICD-10) Dementia ?F03.90 - Unspecified dementia, unspecified severity, without behavioral disturbance, psychotic disturbance, mood disturbance, and anxiety (ICD-10) Presence of permanent cardiac pacemaker ?Z95.0 - Presence of cardiac pacemaker (ICD-10) Afib ?I48.91 - Unspecified atrial fibrillation (ICD-10) CAD (coronary artery disease) ?I25.10 - Atherosclerotic heart disease of [place] coronary artery without angina pectoris (ICD-10) Anxiety ?F41.9 - Anxiety disorder, unspecified (ICD-10) Hyperlipemia ?E78.5 - Hyperlipidemia, unspecified (ICD-10) Anemia ?D64.9 - Anemia, unspecified (ICD-10) Abdominal aneurysm without mention of rupture ?I71.40 - Abdominal aortic aneurysm, without rupture, unspecified (ICD-10) COPD (chronic obstructive pulmonary disease) ?J44.9 - Chronic obstructive pulmonary disease, unspecified (ICD-10) Surgical History (Updated 01/13/24 @ 13:25 by Shaikh Edvin MD) H/O abdominal aortic aneurysm repair ?Z98.890 - Other specified postprocedural states (ICD-10) Social History (Updated 01/13/24 @ 13:25 by Shaikh Edvin MD) Within the past year, how often did you have a drink containing alcohol: never Score interpretation: A score less than 4 is consistent with normal alcohol consumption. Smoking status: Former smoker Non-prescribed substance use: denies use Highest level of school completed/degree received: high school graduate Little interest or pleasure in doing things: not at all Feeling down, depressed, or hopeless: not at all Gender Identity: male Exam Narrative Exam Narrative: VITALS: I have reviewed the triage vital signs. GENERAL: Well developed, well appearing elderly male in no acute distress. Wearing baseball cap. NEURO: Alert and oriented x4. Moves all extremities. Face is symmetric and expressive. Cranial nerves II through XII grossly intact as tested. Muscular strength and sensation grossly intact upper and lower extremities bilaterally. No dysarthria. No aphasia. No ataxia. Normal gait. NIHSS 0. EYES: PERRL. No scleral icterus or conjunctival injection. No discharge. HENT: Normocephalic, atraumatic. Hearing is grossly intact. Nares grossly patent and without discharge. Mucous membranes moist. NECK: No JVD. Patient moves neck without restriction. CARDIO: Rhythm regular. Normal rate. No murmur, rub, or gallop. Pulses equal bilaterally in the upper and lower extremity. No lower extremity edema. PULM: Lungs clear to auscultation in all [place]. No wheezes, rales, or rhonchi. No conversational dyspnea. No splinting, stridor, or accessory muscle use. GI/: Abdomen is soft and non-tender. Normoactive bowel sounds. EXTREMITIES: Symmetric muscle bulk. No joint swelling. No clubbing, cyanosis, or deformity. SKIN: Warm and dry. Normal turgor. No rash or lesions appreciated. PSYCH: Mood, affect, and interaction is appropriate to the setting. Constitutional Vital Signs, click to edit/add: Last Vital Signs Temp 98.4 F 04/06/24 20:20 Pulse 77 04/06/24 20:20 Resp 20 04/06/24 20:20 BP 195/94 H 04/06/24 20:20 Pulse Ox 97 04/06/24 20:20 O2 Del Method Room Air 04/06/24 20:20 Course Vital Signs Vital signs: Vital Signs Temperature 98.4 F 04/06/24 20:20 Pulse Rate 77 04/06/24 20:20 Respiratory Rate 20 04/06/24 20:20 Blood Pressure 195/94 H 04/06/24 20:20 Pulse Oximetry 97 04/06/24 20:20 Oxygen Delivery Method Room Air 04/06/24 20:20 Temperature 98.4 F 04/06/24 20:20 Pulse Rate 77 04/06/24 20:20 Respiratory Rate 20 04/06/24 20:20 Blood Pressure 195/94 H 04/06/24 20:20 Pulse Oximetry 97 04/06/24 20:20 Oxygen Delivery Method Room Air 04/06/24 20:20 Medical Decision Making MDM Narrative Medical decision making narrative: Pleasant 88-year-old male to the emergency department chief complaint of resolved episode of vertigo. Vital stable, the patient is afebrile. His neurologic examination is nonfocal. He has no symptoms at this time. He has no complaints. Will obtain basic labs and EKG. No indication for CT imaging. Hypertension is asymptomatic, medicated. Medical Records Medical records reviewed: Yes I reviewed the patient's medical records Discharge Plan Discharge Chief Complaint: Dizziness Clinical Impression: Benign paroxysmal vertigo Patient Disposition: Home, Self-Care Prescriptions / Home Meds: No Action aspirin 81 mg tablet,chewable 1 tab PO DAILY atorvastatin 40 mg tablet 40 mg PO BEDTIME donepezil 10 mg tablet 10 mg PO BEDTIME ezetimibe 10 mg tablet 10 mg PO DAILY fenofibrate 54 mg tablet 54 mg PO BEDTIME ipratropium-albuterol 0.5 mg-3 mg(2.5 mg base)/3 mL solution for nebulization 3 ml inhalation Q4H PRN (Reason: shortness of breath) loratadine 10 mg tablet 10 mg PO DAILY memantine 10 mg tablet 10 mg PO DAILY pantoprazole 40 mg tablet,delayed release (DR/EC) 40 mg PO Q12H cholecalciferol (vitamin D3) 50 mcg (2,000 unit) tablet 50 mcg PO DAILY metoprolol succinate [Toprol XL] 100 mg tablet extended release 24 hr 100 mg PO BID Qty: 60 0RF furosemide [Lasix] 40 mg tablet 40 mg PO DAILY Qty: 30 0RF albuterol sulfate 90 mcg/actuation aerosol powdr breath activated 2 inh inhalation Q6H PRN (Reason: shortness of breath or wheezing) Qty: 1 0RF Print Language: [place] Referrals: Physician,Non-Staff, MD [Primary Care Provider] - 1 week
--- OUTSIDE RECORDS SUMMARY | 2024-04-06 20:30 | XMS_ITS | CCD ---
Author Organization [facility] Care Team Providers Care Chemical Etching Processor Name Role Phone CECILIO, YONI E Unavailable Unavailable CECILIO, YONI E Unavailable Unavailable CECILIO, YONI E Unavailable Unavailable CECILIO, YONI E Unavailable Unavailable CECILIO, YONI Unavailable Unavailable CECILIO, YONI Unavailable Unavailable MARINA, BOO L Unavailable Unavailable CECILIO, YONI Unavailable Unavailable CECILIO, YONI Unavailable Unavailable MARINA, BOO L Unavailable Unavailable CECILIO, YONI Unavailable Unavailable MARINA, BOO L Unavailable Unavailable CECILIO, YONI Unavailable Unavailable Wartmann, Turner Unavailable Unavailable Marina, Boo Unavailable Unavailable Wartmann, Turner Unavailable Unavailable Marina DO, Boo L Primary Care Provider Amalnick GENAO Luke L Unavailable Marinaleann GENAO Boo L Primary Care Provider Amalfitanthony GENAO Luke L Unavailable MARINA DOBOO Primary Care Physician Marina DO Boo L Primary Care Provider CAMRYN DAVILA Attending Unavailable CAMRYN DAVILA Admitting Unavailable MARINA, BOO L Primary Care Unavailable Marina DO, Boo L Primary Care Provider Amalinck GENAO Luke L Unavailable KAREEM SHEN MD Attending Unavailable MARINA DOBOO Primary Care Unavailable KAREEM SHEN MD Admitting Unavailable KAREEM SHEN MD Attending Unavailable MARINA DOBOO Primary Care Unavailable KAREEM SHEN MD Admitting Unavailable YECENIA PILLAI, SILVIA Consulting Unavailable KAREEM SHEN MD Consulting Unavailable MARINA DO BOO Primary Care Unavailable APRYL METCALF DO Admitting Unavailable COLBY MAO MD Consulting Unavailable SONU RUEDA DO Attending Unavailable Luke Beach DO Unavailable John SPRAGUE, Femi Unavailable Unavailabl e MARINA, BOO DO [...] Consulting Unavailable MARINA, BOO DO Referring Unavailable COLBY MURRAY DO Attending Unavailable COLBY MURRAY DO Primary Care Unavailable COLBY MURRAY DO Admitting Unavailable MARINA, BOO DO Consulting Unavailable PROVIDER, UNKNOWN Consulting Unavailable SATNAM MADRID Attending Unavailable SATNAM MADRID Primary Care Unavailable SATNAM MADRID Admitting Unavailable MARINA, BOO DO Referring Unavailable MARINA, BOO DO Consulting Unavailable PROVIDER, UNKNOWN Consulting Unavailable COLBY MURRAY Referring Unavailable MARINA, BOO L Primary Care [...] JUAN CARLOS CUADRA Referring Unavailable MARINA, BOO David Primary Care Unavailable EKTA MANDUJANO Referring Unavailable MARINA, BOO David Primary Care Unavailable ANDRIA MANDUJANOON Attending Unavailable MARINA, BOO L Primary Care Unavailable MARINA, BOO L Primary Care Unavailable DAVILA, CARMYN Attending Unavailable DAVILA, CAMRYN Referring Unavailable MARINA, BOO L Referring Unavailable MARINA, BOO L Primary Care Unavailable NAVEEN, ZORAIDA Attending Unavailable MARINA, BOO L Primary Care Unavailable DAVILA, CAMRYN Attending Unavailable DAVILA, CAMRYN Referring Unavailable DAVILA, CAMRYN Attending Unavailable MARINA, BOO L Primary Care Unavailable ANA MARIA JOLLY Attending Unavailable MARINA, BOO L Primary Care Unavailable DAVILA, CAMRYN Attending Unavailable JOLLY, ANA MARIA Referring Unavailable MARINA, BOO L Primary Care Unavailable MARINA, BOO L Primary Care Unavailable NAVEEN, ZORAIDA Attending Unavailable MARINA, BOO L Primary Care Unavailable MARINA, BOO L Referring Unavailable Marina DO, Boo L Primary Care Provider Lavell Siegel Admitting Unavailable Lavell Siegel. Attending Unavailable [facility] Cardio, XXXX Consulting Unavailable Marquez Martinez Consulting Unavailable MD Marquez Martinez Consulting Unavailable Tomah, Marquez Consulting Unavailable Tomah, Marquez Consulting Unavailable Tomah Marquez Consulting Unavailable Tomah, Marquez Consulting Unavailable Tomah, Marquez Consulting Unavailable Tomah, Marquez Consulting Unavailable Tomah, Marquez Consulting Unavailable Stew Blount Consulting Unavailable Stew Blount Consulting Unavailable MD Stew Blount Consulting Unavailable Matheus PILLAI, [facility] Primary Care Provider MD Johnny VILLEDA Admitting Unavailable NONE, XXXX Referring Unavailable MD Johnny VILLEDA Attending Unavailable MD Johnny VILLEDA Admitting Unavailable MD Johnny VILLEDA Referring Unavailable MD Johnny VILLEDA Attending Unavailable MD Matheus Nanci Admitting Unavailable WILLIAM Turner Attending Unavailable WILLIAM Turner Admitting Unavailable NONE, XXXX Referring Unavailable WILLIAM Turner Attending Unavailable WILLIAM Turner Admitting Unavailable NONE, XXXX Referring Unavailable Carlos Castro Attending Unavailable Carlos Castro Attending Unavailable MD Matheus Nanci Attending Unavailable MD Matheus Nanci Attending Unavailable MD Matheus Nanci Attending Unavailable MD Matheus Nanci Attending Unavailable MD Johnny VILLEDA Admitting Unavailable MD Johnny VILLEDA Referring Unavailable MD Johnny VILLEDA Attending Unavailable MD Johnny VILLEDA Referring Unavailable Lavell Winters Attending Unavailable Lavell Winters Admitting Unavailable MD Johnny VILLEDA Admitting Unavailable MD Johnny VILLEDA Referring Unavailable MD Johnny VILLEDA Attending Unavailable MD Johnny VILLEDA Admitting Unavailable RONAL, MD Johnny Vega Attending Unavailable Stefan Grimm Attending Unavailable MD Johnny VILLEDA Admitting Unavailable RONAL, MD Johnny Vega Attending Unavailable NONE, XXXX Referring Unavailable MD Brady Marquez Attending Unavailable Alma, MD Brady Cuenca Admitting Unavailable NONE, XXXX Referring Unavailable Lavell Siegel. Attending Unavailable Marquez Martinez Consulting Unavailable Lavell Siegel Admitting Unavailable MD Marquez Martinez Consulting Unavailable Tomah, Marquez Consulting Unavailable Tomah, Marquez Consulting Unavailable Tomah, Marquez Consulting Unavailable Tomah, Marquez Consulting Unavailable Tomah, Marquez Consulting Unavailable Tomah, Marquez Consulting Unavailable Tomah, Marquez Consulting Unavailable Gudimella, Nanci Admitting Unavailable Gudimella, Nanci Attending Unavailable ERIC WILLOUGHBY Attending Unavailable ERIC WILLOUGHBY Attending Unavailable EIRC WILLOUGHBY Attending Unavailable ROSALEE, NATALIE Attending Unavailable ERIC WILLOUGHBY Attending Unavailable NATALIE DEL RIO Attending Unavailable ZAHRA ARENAS Attending Unavailable NATALIE DEL RIO Attending Unavailable SILVESTRE, PAMELA Attending Unavailable SILVESTRE, PAMELA Attending Unavailable ERIC WILLOUGHBY Attending Unavailable ERIC WILLOUGHBY Attending Unavailable ERIC WILLOUGHBY Attending Unavailable Allergies Allergy Classification Reported Allergen(s) Allergy Type Date of Onset Reaction(s) Facility (20 sources) Dust; 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: [DUST] Propensity to adverse reactions (disorder) 8 Other: See Comments [facility] Repository (20 sources) Grass pollen; 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: [GRASS POLLEN] Propensity to adverse reactions to drug (disorder) 8 Other: See Comments [facility] Repository (20 sources) Mold spore; 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: [MOLD SPORES] Propensity to adverse reactions (disorder) 8 Other: See Comments [facility] Repository (9 sources) Banana Extract; 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: [BANANA] Drug Allergy 3 Itching [facility] (5 sources) No Known Medication Allergies; 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: [No Known Medication Allergies] Propensity to adverse reactions (disorder) [facility] Repository (18 sources) Bananas Allergy to substance 3 Itching [facility] (18 sources) Grass pollen Drug Allergy 8 Unknown [facility] (18 sources) House dust mite Allergy to substance 8 Unknown [facility] (18 sources) Mold Extract Drug Allergy 8 Unknown [facility] Medications Current Medications Medication Drug Class(es) Dates Sig (Normalized) Sig (Original) Adult nebulizer with mask and tubing (12 sources) Start: 03-14-2023 Adult nebulizer with mask and tubing Adult nebulizer with mask and tubing, See Instructions, 1 EA, 0, Adult nebulizer with mask and tubing, uses q4h prn, Supply Start Date: 03/14/23 Status: Ordered Albuterol (20 sources) beta2-Adrenergic Agonist Start: 01-19-2024 albuterol See Instructions, albuterol sulfate 90mcg/actuation aerosol powder - 2 puffs Q6hrs prn, Refills(s) 0 Start Date: 01/19/24 Status: Ordered Start: 01-16-2024 take 2 puff(s) by in halation every six hours as needed albuterol HFA 90 mcg/act inhaler INHALE 2 PUFFS EVERY 6 HOURS NEEDED FOR WHEEZE OR FOR SHORTNESS OF BREATH 01/16/2024 Active Start: 10-11-2020 End: 12-12-2022 take 2 puff(s) by inhalation every four hours as needed for wheezing albuterol HFA (VENTOLIN HFA) 90 mcg/actuation inhaler Inhale 2 Puffs as instructed every 4 hours as needed for wheezing/shortness of breath. 18 g 2 10/11/2020 12/12/2022 Discontinued Start: 04-09-2019 End: 10-10-2020 take 2 puff(s) by inhalation every four hours as needed for wheezing albuterol HFA (VENTOLIN HFA) 90 mcg/actuation inhaler Inhale 2 Puffs as instructed every 4 hours as needed for Wheezing/Shortness of Breath. 2 Inhaler 3 04/09/2019 10/10/2020 Discontinued Comment on above: Inhale 2 Puffs as in structed every 4 hours as needed for wheezing/shortness of breath. albuterol 0.833 mg/ml / ipratropium bromide 0.167 mg/ml inhalation solution (20 sources) Anticholinergic, beta2-Adrenergic Agonist Start: 01-27-2024 ipratropium-albuterol (Duo-Neb) 0.5-2.5 mg/3 mL nebulizer solution Take 3 mL by nebulization every 8 (eight) hours if needed for shortness of breath 01/27/2024 Active Start: 04-10-2023 take 3 mL by inhalat ion every six hours as needed albuterol-ipratropium See Instructions, Refill(s) 0, 3 ml inhale q6h PRN SOB Start Date: 04/10/23 Status: Ordered amiodarone hydrochloride 200 mg oral tablet (20 sources) Antiarrhythmic Start: 01-27-2024 take 1 tablet by mouth once daily amiodarone (Pacerone) 200 MG tablet Take 200 mg by mouth Daily 02/15/2024 Active Start: 01-27-2024 End: 02-08-2024 take 1 tablet by mouth twice daily amiodarone 200 mg Tab 200 mg = 1 tab(s), Oral, BID, # 26 tab(s), Refills(s) 0, Pharmacy: [facility]/pharmacy #[id number], 182, cm, 01/23/24 10:10:00 EDT, Height/Length Dosing, 97.1, kg, 01/23/24 10:10:00 EDT, Weight Dosing Start Date: 01/27/24 Stop Date: 02/08/24 Status: Ordered Start: 01-21-2024 take 1 tablet by chris th once daily amiodarone 200 mg Tab 200 mg = 1 tab(s), Oral, As Directed, Patient to take 2 tablets twice daily x 7 days. Then patient can take 1 tablet twice daily x 7 days. And patient can take 1 tab daily ongoing from that., # 56 tab(s), Refills(s) 0, Pharmacy: [facility]/pharmacy #[id number], 175, cm, 01/21/24 13:40:00 EDT, Height/Length Dosing, 96, kg, 01/21/24 13:45:00 EDT, Weight Dosing Start Date: 01/21/24 Status: Ordered Start: 03-07-2022 amiodarone 100 mg oral tablet Dose : 100 mg = 1 tab(s), Oral, qDay, # 30 tab(s), 11 Refill(s), Pharmacy: [id number], A-fib, 177, cm, 03/07/22 14:11:00 EST, Height Start Date: 03/07/22 Status: Ordered apixaban 2.5 mg oral tablet (20 sources) Factor Xa Inhibitor Start: 01-27-2024 take 1 tablet by mouth in the morning Eliquis 2.5 MG tablet Take 2.5 mg by mouth in the morning and 2.5 mg before bedtime. 01/27/2024 Active Start: 12-10-2022 End: 01-09-2023 take 1 tablet by mouth twice daily Eliquis 2.5 mg oral tablet 2.5 mg = 1 tab(s), Oral, BID, # 60 EA, Refills(s) 5, Pharmacy: [facility] #[id number], 175, cm, 01/03/23 13:27:00 EDT, Height/Length Dosing, 88.4, kg, 01/03/23 13:27:00 EDT, Weight Dosing Start Date: 01/07/23 Status: Ordered Start: 12-06-2019 End: 07-08-2022 take 1 tablet by mouth twice daily apixaban (ELIQUIS) 2.5 mg tab tab(s) Take 1 tablet by mouth twice daily. 180 tablet 3 10/06/2020 09/14/2021 Discontinued Comment on above: Take 1 tablet by chris th twice daily. TAKE 1 TABLET BY CHRIS TH TWICE A DAY aspirin 81 mg oral tablet (20 sources) Platelet Aggregation Inhibitor, Nonsteroidal Anti-inflammatory Drug Start: 01-21-2024 Aspirin Low Dose 81 mg oral tablet, chewable 30 tab(s), 0 Refill(s), Refills(s) 0 Start Date: 01/21/24 Status: Ordered Start: 11-17-2023 End: 11-16-2024 take 1 tablet by mouth once daily aspirin 81 MG EC tablet Indications: Cerebral infarction, unspecified mechanism (CMS/HCC) Take 1 tablet (81 mg) by mouth Daily 30 tablet 11 11/17/2023 11/16/2024 Active Start: 12-24-2022 take 1 tablet by chris th once daily aspirin 81 mg Oral EC Tab 81 mg = 1 tab(s), Oral, Daily, # 90 tab(s), Refills(s) 0 Start Date: 12/24/22 Status: Ordered Start: 12-11-2022 End: 01-10-2023 take 1 tablet by mouth once daily aspirin 81 mg chewable tablet Chew 1 tablet by mouth once daily. 30 tablet 0 12/11/2022 Active Start: 03-07-2022 End: 12-10-2022 aspirin 81 mg oral delayed r elease tablet Dose : 81 mg = 1 [...] Daily, # 30 tab(s), Refills(s) 5, Pharmacy: [facility] #[id number], 175, cm, 01/03/23 13:27:00 EDT, Height/Length Dosing, 88.4, kg, 01/03/23 13:27:00 EDT, Weight Dosing Start Date: 01/07/23 Status: Ordered Start: 02-26-2020 End: 07-08-2022 take 1 tablet by mouth once daily atorvastatin (LIPITOR) 40 mg tablet Indications: Dyslipidemia Take 1 tablet by mouth once daily. 90 tablet 3 02/06/2021 12/07/2021 Discontinued Comment on above: Take 1 tablet by chris th once daily. Take 1 tablet by chris th daily at bedtime. benoxinate hydrochloride 4 mg/ml / fluorescein sodium 2.5 mg/ml ophthalmic solution (2 sources) Diagnostic Dye Start: 01-30-20 End: 01-31-20 fluorescein-benoxin ate 0.25-0.4 % 1 Drop (FLURESS) cefdinir 300 mg oral capsule (1 source) Cephalosporin Antibacterial Start: 07-05-19 End: 07-15-19 take 1 capsule by mouth twice daily cefdinir (OMNICEF) 300 mg capsule Indications: Acute infective otitis externa, bilateral Take 1 capsule by mouth twice daily for 10 days. 20 capsule 0 07/04/2021 07/14/2021 Active Comment on above: Take 1 capsule by mo [facility] twice daily for 10 days. cephalexin 500 mg oral capsule (7 sources) Cephalosporin Antibacterial Start: 03-12-20 End: 03-22-20 take 1 capsule by mouth in the morning, then take 1 capsule by mouth in the evening, then take 1 capsule by mouth at bedtime, then take 1 capsule by mouth three times daily cephalexin (Keflex) 500 MG capsule Indications: Abscess, toe, left Take 1 capsule (500 mg) by mouth in the morning and 1 capsule (500 mg) in the evening and 1 capsule (500 mg) before bedtime. Do all this for 10 days. Take one tablet by mouth three times daily. 30 capsule 03/12/2024 03/22/2024 Active clindamycin 300 mg oral capsule (5 sources) Lincosamide Antibacterial Start: 03-15-20 End: 03-25-20 take 1 capsule by mouth in the morning, then take 1 capsule by mouth in the evening, then take 1 capsule by mouth at bedtime clindamycin (Cleocin) 300 MG capsule Indications: Abscess, toe, left Take 1 capsule (300 mg) by mouth in the morning and 1 capsule (300 mg) in the evening and 1 capsule (300 mg) before bedtime. Do all this for 10 days. 30 capsule 03/15/2024 03/25/2024 Active donepezil hydrochloride 10 mg oral tablet (20 sources) Start: 02-02-20 take 1 tablet by mouth once daily at bedtime donepezil 10 mg Tab 10 mg = 1 tab(s), Oral, Once a day (at bedtime), Refills(s) 0 Start Date: 02/01/23 Status: Ordered Ensure (11 sources) Start: 02-22-20 Ensure 237 mL, Oral, BIDWM, Refill(s) 0 Start Date: 02/21/23 Status: Ordered ezetimibe 10 mg oral tablet (20 sources) Dietary Cholesterol Absorption Inhibitor Start: 04-05-20 End: 12-13-19 take 1 tablet by mouth in the morning ezetimibe (Zetia) 10 MG tablet Take 10 mg by mouth in the morning. 12/12/2022 Active Start: 06-01-2020 End: 04-03-2021 take 1 tablet by mouth once daily ezetimibe (ZETIA) 10 mg tablet Indications: Hypertriglyceridemia Take 1 tablet by mouth once daily. 90 tablet 3 06/01/2020 04/03/2021 Discontinued Comment on above: Take 1 tablet by chris th once daily. fenofibrate 54 mg oral tablet (20 sources) Peroxisome Proliferator Receptor alpha Agonist Start: End: take 1 tablet by mouth in the morning fenofibrate (Tricor) 54 MG tablet Take 54 mg by mouth in the morning. 12/12/2022 Active Start: 01-24-2021 End: 06-22-2021 take 1 tablet by mouth once daily Fenofibrate (LOFIBRA) 54 mg tablet Take 1 tablet by mouth once daily. 90 tablet 3 01/24/2021 06/22/2021 Discontinued Start: 01-27-2020 End: 01-22-2021 take 1 tablet by mouth once daily Fenofibrate (LOFIBRA) 54 mg tablet Take 1 tablet by mouth once daily. 90 tablet 3 01/27/2020 01/22/2021 Discontinued Comment on above: Take 1 tablet by chris th once daily. Johanna (20 sources) Histamine-1 Receptor Antagonist Start: 03-11-2023 Johanna Refills(s) 0 Start Date: 03/11/23 Status: Ordered take 1 tablet by mouth in the mo rning fexofenadine (Johanna) 60 MG tablet Take 60 mg by mouth in the morning and 60 mg before bedtime. Active furosemide 40 mg oral tablet (20 sources) Loop Diuretic Start: 12-12-2022 take 1 tablet by mouth in the morning furosemide (Lasix) 40 MG tablet Take 40 mg by mouth in the morning and 40 mg before bedtime. 12/12/2022 Active Start: 04-05-2021 End: 12-12-2022 take 1 tablet by mouth once daily after breakfast furosemide (Lasix) 20 MG tablet TAKE 1 TABLET BY MOUTH DAILY AFTER BREAKFAST *FOR SWELLING 12/12/2022 Active Comment on above: Take 1 tablet by chris th daily after breakfast. For swelling TAKE 1 TABLET BY CHRIS TH DAILY AFTER BREAKFAST *FOR SWELLING gabapentin 300 mg oral capsule (18 sources) Anti-epileptic Agent Start: 3 take 1 capsule by mouth in the morning, then take 1 capsule by mouth in the evening, then take 1 capsule by mouth at bedtime gabapentin (Neurontin) 300 MG capsule Take 300 mg by mouth in the morning and 300 mg in the evening and 300 mg before bedtime. 09/04/2022 Active hydrALAZINE hydrochloride 10 mg oral tablet (18 sources) Arteriolar Vasodilator Start: 4 take 1 tablet by mouth in the morning, then take 1 tablet by mouth in the evening, then take 1 tablet by mouth at bedtime hydrALAZINE (Apresoline) 10 MG tablet Take 10 mg by mouth in the morning and 10 mg in the evening and 10 mg before bedtime. 01/27/2024 Active isosorbide dinitrate 10 mg oral tablet (18 sources) Nitrate Vasodilator Start: 4 take 1 tablet by mouth in the morning, then take 1 tablet by mouth in the evening, then take 1 tablet by mouth at bedtime isosorbide dinitrate (Isordil) 10 MG tablet Take 10 mg by mouth in the morning and 10 mg in the evening and 10 mg before bedtime. 01/27/2024 Active loratadine 10 mg oral capsule (20 sources) Start: 4 take 1 capsule by mouth once daily loratadine 10 mg oral capsule 10 mg = 1 cap(s), Oral, Daily, # 10 cap(s), Refills(s) 0 Start Date: 02/05/24 Status: Ordered Start: 07-08-2023 take 1 tablet by chris th once daily loratadine (Claritin) 10 MG tablet Take 10 mg by mouth Daily 07/08/2023 Active memantine hydrochloride 10 mg oral tablet (20 sources) A-xmxldz-W-aspartate Receptor Antagonist Start: 11-13-2023 memantine 10 mg Tab 30 tab(s), 0 Refill(s), Refills(s) 0 Start Date: 11/13/23 Status: Ordered methylPREDNISolone (20 sources) Corticosteroid Start: 03-15-2024 methylPREDNISolone (Medrol Dospak) 4 MG tablets Indications: Capsulitis of metatarsophalangeal (MTP) joint of right foot Follow schedule on MEDROL PACK package instructions to be used as directed 21 tablet 03/15/2024 Active Start: 07-22-2023 End: 03-15-2024 methylPREDNISolone (Medrol D ospak) 4 MG tablets Indications: Hallux rigidus of left foot Follow schedule on MEDROL PACK package instructions to be used as directed 21 tablet 07/22/2023 03/15/2024 Discontinued (Therapy completed) Start: 07-22-2023 methylPREDNISo lone (Medrol Dospak) 4 MG tablets Indications: Hallux rigidus of left foot Follow schedule on MEDROL PACK package instructions to be used as directed 21 tablet 07/22/2023 Active 24 hr metoprolol succinate 25 mg extended release oral tablet (20 sources) beta-Adrenergic Isha Start: 01-27-2024 End: 01-27-2024 take 1 tablet by mouth twice daily metoprolol succinate 25 mg ER Tab 25 mg = 1 tab(s), Oral, BID, # 60 tab(s), Refills(s) 0, Pharmacy: [facility]/pharmacy #[id number], 182, cm, 01/23/24 10:10:00 EDT, Height/Length Dosing, 97.1, kg, 01/23/24 10:10:00 EDT, Weight Dosing Start Date: 01/27/24 Status: Ordered Start: 01-26-2024 End: 01-26-2024 take 1 tablet by mouth twice daily metoprolol succinate 25 mg ER Tab 25 mg = 1 tab(s), Oral, BID, # 60 tab(s), Refills(s) 0, Pharmacy: [facility]/pharmacy #[id number], 182, cm, 01/23/24 10:10:00 EDT, Height/Length Dosing, 97.1, kg, 01/23/24 10:10:00 EDT, Weight Dosing Start Date: 01/27/24 Status: Ordered Start: 01-26-2024 End: 01-26-2024 metoprolol succinate 25 mg E R Tab 25 mg = 1 tab(s), Tab-ER, Oral, Start date 01/26/24 9:00:00 AM EDT, 01/23/24 16:37:00 EDT Start Date: 01/26/24 Stop Date: 01/26/24 Status: Completed Start: 01-21-2024 take 1 tablet by chris th twice daily metoprolol succinate 100 mg ER Tab 100 mg = 1 tab(s), Oral, BID, Refills(s) 0 Start Date: 01/21/24 Status: Ordered Start: 01-16-2024 take 1 tablet by chris th every twenty-four hours in the morning metoprolol succinate XL (Toprol-XL) 100 MG 24 hr tablet Take 100 mg by mouth in the morning and 100 mg before bedtime. 01/16/2024 Active Start: 03-06-2020 End: 07-08-2022 take 1 tablet by mouth twice daily metoprolol tartrate, short acting, (LOPRESSOR) 100 mg tablet Indications: Atrial fibrillation, persistent (HCC) Take 1 tablet by mouth twice daily. 180 tablet 3 02/06/2021 12/07/2021 Discontinued Comment on above: Take 1 tablet by chris th twice daily. 24 hr nicotine 0.875 mg/hr transdermal system (20 sources) Cholinergic Nicotinic Agonist Start: 01-07-2024 nicotine 21 mg/24 hr Transderm ER Film 1 patch(es), Topical, Daily, 90 EA, [facility]ill[facility]s) 0, [facility], [facility], cm, 11/13/23 15:49:00 EDT, Height/Length Dosing, 97.6, kg, 11/13/23 15:55:00 EDT, Weight Dosing Start Date: 01/07/24 Status: Ordered Start: 09-11-2023 nicotine 21 mg /24 hr Transderm ER Film 1 patch(es), Topical, Daily, 90 EA, Refill(s) 0, [facility], [facility], cm, 09/11/23 15:11:00 EDT, Height/Length Dosing, 94.7, kg, 09/11/23 15:29:00 EDT, Weight Dosing Start Date: 09/11/23 Status: Ordered Start: 08-12-2023 nicotine (Jewel derm, Step 2) 14 MG/24HR patch Place 1 patch on the skin 1 (one) time each day at the same time 08/12/2023 Active Start: 02-21-2023 nicotine 14 mg /24 hr Transderm ER Film TransDermal, Daily, Refill(s) 0 Start Date: 02/21/23 Status: Ordered nitroglycerin 0.4 mg sublingual tablet (20 sources) Nitrate Vasodilator Start: 04-23-2021 End: 12-12-2022 nitroglycerin (Nitrostat) 0.[address] 0.4 mg under the tongue 12/12/2022 Active Comment on above: Dissolve 1 tablet un ranjana the tongue every 5 minutes as needed. pantoprazole 40 mg delayed release oral tablet (20 sources) Proton Pump Inhibitor Start: 01-07-2023 take 1 tablet by mouth twice daily Pantoprazole [address] Tab 40 mg = 1 tab(s), Oral, BID, # 60 tab(s), Refills(s) 5, Pharmacy: [facility] #[id number], 175, cm, 01/03/23 13:27:00 EDT, Height/Length [...] solution (2 sources) alpha-1 Adrenergic Agonist Start: 2 End: 2 PHENYLephrine 2.5 % 1 Drop (AK-DILATE, RAKESH-SYNEPHRINE) predniSONE 20 mg oral tablet (4 sources) Start: 4 take 1 tablet by mouth twice daily predniSONE 20 mg Tab TAKE 1 TABLET BY MOUTH TWICE A DAY FOR 5 DAYS Start Date: 01/21/24 Status: Ordered Start: 12-16-2022 take 1 tablet by chris th once daily predniSONE (DELTASONE) 20 mg tablet Indications: Pain and swelling of toe of right foot Take 1 tablet by mouth once daily. 5 tablet 0 12/16/2022 Active Comment on above: Take 1 tablet by chris th once daily. proparacaine hydrochloride 5 mg/ml ophthalmic solution (3 sources) Local Anesthetic Start: 04-10-2022 End: 04-11-2022 proparacaine 0.5 % 1 Drop (ALCAINE) Start: 01-29-2022 End: 01-30-2022 proparacaine 0.5 % 1 Drop (A LCAINE) psyllium 520 mg oral capsule (20 sources) Start: 06-17-2023 Reguloid 0.52 g capsule 2 capsules Daily 06/17/2023 Active Start: 04-10-2023 Metamucil Refi lls(s) 0 Start Date: 04/10/23 Status: Ordered PSYLLIUM HUSK PO (15 sources) take 0.4 g by mouth in the morning PSYLLIUM HUSK PO Take 0.4 g by mouth in the morning and 0.4 g before bedtime. Active tropicamide 10 mg/ml ophthalmic solution (2 sources) Anticholinergic Start: 01-29-2022 End: 01-30-2022 tropicamide 1 % 1 Drop (MYDRIACYL) Vitamin D3 2000 intl units oral Tab (18 sources) Start: 12-24-2022 take 1 tablet by mouth once daily Vitamin D3 2000 intl units oral Tab 50 mcg, Oral, Daily, tab(s), Refills(s) 0 Start Date: 12/24/22 Status: Ordered Completed/Discontinued Medications Medication Drug Class(es) Dates Sig (Normalized) Sig (Original) cholecalciferol 0.05 mg oral tablet (20 sources) Vitamin D Start: 07-03-2023 End: 02-16-2024 cholecalciferol 50 MCG (1999 UT) tablet 07/03/2023 02/16/2024 Discontinued (Duplicate order) Start: 12-12-2022 take 1 capsule by mo ut in the morning cholecalciferol (Vitamin D-3) 50 MCG (1999 UT) capsule Take 2,000 Units by mouth in the morning. 12/12/2022 Active Start: 07-23-2022 End: 03-12-2023 take 1 capsule by mouth once daily Cholecalciferol, Vitamin D3, 50 mcg (2,000 unit) cap Take 1 capsule by mouth once daily. 30 capsule 3 12/12/2022 03/12/2023 Active Comment on above: Take 1 capsule by mo uth once daily. doxycycline hyclate 100 mg oral capsule (3 sources) Tetracycline-class Drug Start: 04-10-20 End: 04-24-19 take 1 capsule by mouth twice daily doxycycline hyclate (VIBRAMYCIN) 100 mg capsule Take 1 capsule by mouth twice daily for 14 days. 28 capsule 0 04/10/2022 04/24/2022 Comment on above: Take 1 capsule by [facility] twice daily for 14 days. erythromycin 0.005 mg/mg ophthalmic ointment (20 sources) Macrolide, Macrolide Antimicrobial Start: 03-06-20 apply 5 mg into the eye(s) twice [...] nasal spray (20 sources) Corticosteroid Start: 07-09-19 End: 12-07-19 take 1 spray(s) nasal route once daily at bedtime fluticasone (FLONASE) 50 mcg/actuation nasal spray Indications: Chronic seasonal allergic rhinitis due to pollen Use 1 Duncan in each nostril daily at bedtime. 1 Bottle 6 07/08/2018 12/06/2022 Discontinued Comment on above: Use 1 Duncan in each nostril daily at bedtime. gramicidin 0.025 mg/ml / neomycin 1.75 mg/ml / polymyxin b [id number] unt/ml ophthalmic solution (20 sources) Aminoglycoside Antibacterial, [...] / neomycin 3.5 mg/ml / polymyxin b [id number] unt/ml otic suspension (20 sources) Aminoglycoside Antibacterial, [...] (20 sources) Angiotensin Converting Enzyme Inhibitor Start: take 1 tablet by mouth once [...] tablet by mouth once daily. 90 tablet 1 04/05/2021 10/12/2021 Discontinued Start: 06-01-2020 End: 11-28-2020 take 1 tablet by mouth once daily lisinopril (ZESTRIL, PRINIVIL) 20 mg tablet Indications: Atrial fibrillation, persistent (HCC) Take 1 tablet by mouth once daily. 90 tablet 1 06/01/2020 11/28/2020 Discontinued Comment on above: Take 1 tablet by chris th once daily. TAKE 1 TABLET BY CHRIS TH DAILY Take 1 tablet by chris th once daily. For blood pressure Magnesium (20 sources) End: 12-06-2022 take 1 tablet by mouth once daily Magnesium 250 mg tab Take 250 mg by mouth once daily. 12/06/2022 Discontinued take 1 tablet by mouth once hammad y Magnesium 250 mg tab Take 250 mg by mouth once daily. 0 Suspended take 1 tablet by mouth once hammad y Magnesium 250 mg tab Take 250 mg by mouth once daily. 0 Active Comment on above: Take 250 mg by mouth once daily. mupirocin 0.02 mg/mg topical ointment (3 sources) RNA Synthetase Inhibitor Antibacterial Start: 04-10-2022 End: 04-24-2022 mupirocin (BACTROBAN) 2 % ointment Apply to affected area three times daily for 14 days. 15 g 0 04/10/2022 04/24/2022 Comment on above: Apply to affected ar ea three times daily for 14 days. potassium chloride 10 meq extended release oral tablet (20 sources) Start: 12-03-2021 Potassium Chloride (Eqv-K-Tab) 20 mEq oral tablet, extended release Dose : 20 mEq = 1 tab(s), Oral, qDay, Take with food, # 30 tab(s), 0 Refill(s) Start Date: 12/03/21 Status: Ordered Start: 10-15-2021 End: 07-08-2022 take 1 tablet by mouth once daily potassium chloride (KLOR-CON 10) 10 mEq tablet Take 1 tablet by mouth once daily. 30 tablet 11 07/08/2022 Suspended Start: 12-15-2019 End: 10-12-2021 take 1 tablet by mouth once daily potassium chloride (KLOR-CON 10) 10 mEq tablet Take 1 tablet by mouth once daily. 90 tablet 3 12/19/2020 10/12/2021 Discontinued Comment on above: Take 1 tablet by chris th once daily. POTASSIUM-99 ORAL (3 sources) Start: 12-04-19 POTASSIUM-99 ORAL Take by mouth. 0 12/03/2021 Active Comment on above: Take by mouth. sennosides, fci 8.6 mg oral tablet (20 sources) End: 10-09-19 take 1 tablet by mouth once daily as needed senna (SENOKOT) 8.6 mg tab Take 8.6 mg by mouth once daily as needed. 10/08/2022 Discontinued Comment on above: Take 8.6 mg by [...] mg/ml topical lotion (20 sources) Corticosteroid Start: 09-29-19 triamcinolone (KENALOG) 0.1 % lotion Indications: Eczema of both external ears , Chronic eczematous otitis externa of both ears Apply to affected area three times daily. 60 mL 2 09/28/2021 Suspended Comment on above: Apply to affected ar ea three times daily. warfarin sodium 4 mg oral tablet (20 sources) Vitamin K Antagonist Start: 01-18-20 take 1 tablet by mouth once daily warfarin (COUMADIN) 4 mg tablet Take 1 tablet by mouth once daily. 0 01/18/2012 Suspended Comment on above: Take 1 tablet by chris th once daily. 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, left foot] 03-12-2024 Chronic Acquired foot deformities (6 sources) Toe joint rigid; 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: [Hallux rigidus, right foot] 03-12-2024 Chronic Acute cerebrovascular disease (20 sources) Cerebrovascular accident; 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: [Cerebral infarction, unspecified] Onset: 3 12-06-2022 Chronic Administrative/social admission (9 sources) Patient encounter status; 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: [Persons encountering health services in other specified circumstances] Onset: 3 Episodic Anxiety disorders (20 sources) Generalized anxiety disorder; 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: [Generalized anxiety disorder] Onset: 2 10-09-2021 Chronic Comment on above: noted in 01/16/2023 Transfer In Records page 17. added per [facility] policy. Cardiac dysrhythmias (20 sources) Paroxysmal atrial fibrillation; 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: [Sick sinus syndrome] Onset: 6 Resolved: 1 08-10-2015 Chronic Cataract (2 sources) Bilateral pseudophakia; 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: [Presence of intraocular lens] Chronic Chronic kidney disease (20 sources) Chronic kidney disease stage 3B ; 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: [Stage 3b chronic kidney disease] Onset: 6 Resolved: 1 07-02-2021 Chronic Comment on above: noted in 01/16/2023 Transfer In Records page 17. added per OP [facility] policy. Chronic kidney disease (1 source) Chronic kidney disease; 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: [Chronic kidney disease, stage 3 unspecified] Onset: 3 Chronic obstructive pulmonary disease and bronchiectasis (20 sources) Chronic obstructive lung disease; 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: [Chronic obstructive pulmonary disease, unspecified] Onset: 6 Resolved: 1 01-29-2016 Chronic Comment on above: noted in [...] situ; 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: [Presence of cardiac pacemaker] Onset: 6 03-03-2020 Chronic Congestive heart failure; nonhypertensive (20 sources) Chronic combined systolic and diastolic heart failure; 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: [Chronic combined systolic (congestive) and diastolic (congestive) heart failure] Onset: 1 09-26-2020 Chronic Coronary atherosclerosis and other heart disease (20 sources) Atherosclerotic heart disease of [place] coronary artery without angina pectoris; 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: [History of myocardial infarction] Onset: 6 Resolved: 1 03-03-2020 Chronic Comment on above: noted in 01/02/2023 Cardiology Consult Note. added per OP [facility] policy. Deficiency and other anemia (15 sources) Anemia; 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: [Anemia, unspecified] Onset: 3 Episodic Delirium, dementia, and amnestic and other cognitive disorders (20 sources) Senile asthenia; 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: [Age-related physical debility] Onset: 3 12-12-2022 Chronic Comment on above: noted in 01/08/2023 Neurology Consult Note page 2. added per [facility] policy. Developmental disorders (2 sources) Intellectual disability; 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: [Unspecified intellectual disabilities] Onset: 3 12-13-2022 Chronic Diabetes mellitus without complication (20 sources) Impaired fasting glycemia; 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: [Impaired fasting glucose] Onset: 2 10-09-2021 Episodic Comment on above: noted in 01/16/2023 Transfer In Records page 17. added per OP [facility] policy. Disorders of lipid metabolism (20 sources) Other hyperlipidemia; 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: [Dyslipidemia] Onset: 6 08-10-2015 Chronic Essential hypertension (20 sources) Essential hypertension; 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: [Essential (primary) hypertension] Onset: 7 Resolved: 7 06-19-2016 Chronic Gout and other crystal arthropathies (4 sources) Gouty arthritis of left foot; 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: [Gout, unspecified] 03-15-2024 Chronic Hyperplasia of prostate (20 sources) Benign prostatic hyperplasia; 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: [Benign prostatic hyperplasia without lower urinary tract symptoms] Onset: 1 12-30-2020 Chronic Hypertension with complications and secondary hypertension (20 sources) Hypertensive heart AND chronic kidney disease stage 3; 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: [Hypertensive heart and chronic kidney disease with heart failure and stage 1 through stage 4 chronic kidney disease, or unspecified chronic kidney disease] Onset: 0 07-02-2021 Chronic Immunizations and screening for infectious disease (2 sources) Needs influenza immunization; 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: [Encounter for immunization] Episodic Inflammation; infection of eye (except that caused by tuberculosis or sexually transmitteddisease) (2 sources) Squamous blepharitis; 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: [Squamous blepharitis right eye, upper and lower eyelids] Episodic Malaise and fatigue (20 sources) Fatigue; 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: [Other fatigue] Onset: 2 10-09-2021 Episodic Neoplasms of unspecified nature or uncertain behavior (1 source) Neoplastic disease; 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: [Neoplasm of unspecified behavior of bone, soft tissue, and skin] Episodic Nutritional deficiencies (20 sources) Vitamin D deficiency; 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: [Vitamin D deficiency, unspecified] Onset: 2 Chronic Comment on above: noted in 01/16/2023 Transfer In Records page 9. added per OP [facility] policy. Occlusion or stenosis of precerebral arteries (20 sources) Right carotid artery stenosis; 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: [Occlusion and stenosis of right carotid artery] Onset: 6 08-10-2015 Chronic Other aftercare (1 source) Follow-up status; 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: [Encounter for follow-up examination after completed treatment for conditions other than malignant neoplasm] Onset: 4 Episodic Other aftercare (2 sources) Post-discharge follow-up 02-05-2024 Episodi c Other and ill-defined heart disease (20 sources) Left ventricular cardiac dysfunction; 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: [Heart disease, unspecified] Onset: 6 03-03-2020 Chronic Other circulatory disease (20 sources) Past history of procedure; 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: [Presence of other vascular implants and grafts] Onset: 6 03-03-2020 Chronic Other circulatory disease (20 sources) History of insertion of iliac stent; 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: [Presence of other vascular implants and grafts] Onset: 6 03-03-2020 Chronic Other circulatory disease (1 source) History of transient ischemic attack; 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: [Personal history of transient ischemic attack (TIA), and cerebral infarction without residual deficits] Onset: 3 Episodic Other circulatory disease (1 source) Wheeze - rhonchi; 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: [Other specified symptoms and signs involving the circulatory and respiratory systems] 06-26-2020 Episodic Other connective tissue disease (20 sources) Muscle weakness; 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: [Muscle weakness (generalized)] Onset: 3 10-08-2022 Episodic Comment on above: noted in 01/16/2023 Transfer In Records page 9. added per [facility] policy. Other connective tissue disease (7 sources) Weakness of face muscles; 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: [Facial weakness] Onset: 3 12-06-2022 Episodic Other connective tissue disease (1 source) Pain in right toe(s); 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: [Pain and swelling of toe of right foot] Onset: 3 Episodic Other connective tissue disease (1 source) Other specified soft tissue disorders; 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: [Pain and swelling of toe of right foot] Onset: 3 Episodic Other connective tissue disease (1 source) Pain in toe; 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: [Pain in right toe(s)] 12-16-2022 Episodic Other connective tissue disease (1 source) Pain in lower limb; 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: [Pain in unspecified lower leg] Onset: 4 Episodic Other connective tissue disease (1 source) Swelling of hand; 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: [Other specified soft tissue disorders] 06-15-2021 Episodic Other connective tissue disease (4 sources) Capsulitis of metatarsophalangeal joint of right foot; 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: [Other enthesopathy of right foot and ankle] 03-12-2024 Episodic Other connective tissue disease (4 sources) Capsulitis of metatarsophalangeal joint of left foot; 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: [Other enthesopathy of left foot and ankle] 03-12-2024 Episodic Other connective tissue disease (2 sources) Pain of toe of left foot; 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: [Pain in left toe(s)] 03-12-2024 Episodic Other ear and sense organ disorders (20 sources) Chronic otitis externa; 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: [Unspecified chronic otitis externa, unspecified ear] Onset: 5 06-30-2014 Chronic Other ear and sense organ disorders (2 sources) Chronic eczema of external auditory canal; 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: [Other otitis externa, bilateral] Chronic Other eye disorders (1 source) Bilateral vitreous degeneration of eyes; 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: [Vitreous degeneration, bilateral] Chronic Other eye disorders (2 sources) Corneal guttata; 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 added per OP [facility] policy. Other nervous system disorders (1 source) Polyneuropathy, unspecified; 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: [Neuropathy] Onset: 7 Chronic Other nervous system disorders (8 sources) Polyneuropathy; 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: [Polyneuropathy, unspecified] Onset: 3 Chronic Other nervous system disorders (3 sources) Idiopathic peripheral neuropathy; 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: [Hereditary and idiopathic neuropathy, unspecified] 03-01-2024 Chronic Other nervous system disorders (20 sources) Abnormal gait; 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: [Unspecified abnormalities of gait and mobility] Onset: 3 10-08-2022 Episodic Comment on above: noted in 01/16/2023 Transfer In Records page 9. added per OP [facility] policy. Other nervous system disorders (1 source) Anesthesia of skin; 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: [Anesthesia of skin] Onset: 4 Episodic Other nervous system disorders (3 sources) Paresthesia; 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: [Paresthesia of skin] 02-24-2024 Episodic Other nutritional; endocrine; and metabolic disorders (20 sources) Cholesterol level - finding; 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: [Lipoprotein deficiency] 07-09-2016 Chronic Other nutritional; endocrine; and metabolic disorders (1 source) Obese class I; 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: [Body mass index (BMI) 30.0-30.9, adult] Onset: 4 Chronic Other nutritional; endocrine; and metabolic disorders (1 source) Obesity; 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: [Other obesity due to excess calories] Onset: 4 Chronic Other nutritional; endocrine; and metabolic disorders (7 sources) Body mass index 30+ - obesity 09-11-2023 Chronic Other nutritional; endocrine; and metabolic disorders (7 sources) Obesity caused by energy imbalance 09-11-2023 Chronic Other nutritional; endocrine; and metabolic disorders (15 sources) Overweight; 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: [Overweight] Onset: 3 Episodic Other nutritional; endocrine; and metabolic disorders (5 sources) Overweight in adulthood with body mass index of 25 or more but less than 30; 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: [Body mass index (BMI) 29.0-29.9, adult] Onset: 3 Episodic Other skin disorders (20 sources) Actinic keratosis; 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: [Actinic keratosis] Onset: 1 09-26-2020 Episodic Other skin disorders (4 sources) Ingrowing nail; 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: [Ingrowing nail] 03-12-2024 Episodic Other upper respiratory disease (20 sources) Chronic rhinitis; 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: [Chronic rhinitis] Onset: 5 06-30-2014 Chronic Other upper respiratory disease (20 sources) Allergic rhinitis due to pollen; 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: [Allergic rhinitis due to pollen] Onset: 8 07-08-2017 Chronic Other upper respiratory infections (20 sources) Chronic sinusitis, unspecified; 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: [Chronic sinusitis] Onset: 8 09-19-2021 Chronic Nadeen-; endo-; and myocarditis; cardiomyopathy (except that caused by tuberculosis or sexually transmitted disease) (1 source) Cardiomyopathy; 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: [Cardiomyopathy, unspecified] Onset: 4 Chronic Peripheral and visceral atherosclerosis (20 sources) Peripheral vascular disease; 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: [Peripheral vascular disease, unspecified] Onset: 3 Chronic Comment on above: noted in 01/02/2023 Cardiology Consult Note. added per OP [facility] policy. Pulmonary heart disease (2 sources) Pulmonary hypertension; 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: [Pulmonary hypertension, unspecified] Onset: 4 Chronic Residual codes; unclassified (1 source) Postoperative state; 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: [Other specified postprocedural states] Episodic Residual codes; unclassified (1 source) Memory impairment; 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: [Other amnesia] 12-12-2022 Episodic Residual codes; unclassified (1 source) Forgetful; 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: [Other general symptoms and signs] 12-12-2022 Episodic Residual codes; unclassified (1 source) Other amnesia; 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: [Memory changes] Onset: 3 Episodic Residual codes; unclassified (1 source) Other general symptoms and signs; 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: [Forgetfulness] Onset: 3 Episodic Respiratory failure; insufficiency; arrest (adult) (18 sources) Chronic hypoxemic respiratory failure; 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: [Chronic respiratory failure with hypoxia] Onset: 3 Chronic Comment on above: added per 02/24/2023 query response. Retinal detachments; defects; vascular occlusion; and retinopathy (4 sources) Epiretinal membrane of right eye; 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: [Puckering of macula, right eye] Chronic Skin and subcutaneous tissue infections (4 sources) Abscess of toe of left foot; 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: [Cutaneous abscess of left foot] 03-12-2024 Episodic Substance-related disorders (20 sources) Tobacco user; 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: [Nicotine dependence, unspecified, uncomplicated] Onset: 6 12-06-2022 Chronic Comment on above: Added secondary to d ocumentation in Social History. Unclassified (1 source) Unknown / UNK(Unknown) Onset: 7 Unclassified (1 source) Other persistent atrial fibrillation; 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: [Atrial fibrillation, persistent (HCC)] Onset: 2 Unclassified (7 sources) Mild pulmonary hypertension 09-11-2023 Comment on above: Added per Dr. Oumar richardson query response, per outpatient [facility]I policy. Past or Other Problems Problem Classification Problem Date Documented Date Episodic/Chronic Aortic; peripheral; and visceral artery aneurysms (9 sources) Abdominal aortic aneurysm, without rupture; 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: [Abdominal aortic aneurysm without rupture] Onset: 07-09-2016 Resolved: 06-22-2020 12-03-2021 Chronic Cardiac dysrhythmias (20 sources) Palpitations; 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: [Palpitations] Onset: 12-23-2019 09-19-2021 Episodic Coronary atherosclerosis and other heart disease (20 sources) Drug coated stent in circumflex branch of left coronary artery; 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: [Presence of coronary angioplasty implant and graft] Onset: 08-10-2015 03-03-2020 Episodic Genitourinary symptoms and ill-defined conditions (2 sources) Albuminuria ; 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: [Proteinuria, unspecified] Onset: 05-18-2018 Resolved: 06-22-2020 06-22-2020 Episodic Mycoses (20 sources) Tinea corporis; 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: [Tinea corporis] Onset: 09-26-2020 09-26-2020 Episodic Nutritional deficiencies (20 sources) Cobalamin deficiency; 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: [Deficiency of other specified B group vitamins] Onset: 01-09-2022 Episodic Other aftercare (20 sources) Long-term current use of anticoagulant; 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: [continuous churn buttermaker (current) use of anticoagulants] Onset: 09-19-2021 09-19-2021 Episodic Other aftercare (1 source) continuous churn buttermaker (current) use of anticoagulants; 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: [continuous churn buttermaker (current) use of anticoagulants] Onset: 08-08-2022 Episodic Other aftercare (2 sources) Long-term current use of drug therapy; 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: [Encounter for therapeutic drug level monitoring] Onset: 08-10-2015 Resolved: 06-22-2020 06-22-2020 Episodic Other circulatory disease (18 sources) History of cerebrovascular accident; 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: [Personal history of transient ischemic attack (TIA), and cerebral infarction without residual deficits] Onset: 09-03-2023 09-03-2023 Episodic Other connective tissue disease (3 sources) [...] externa, bilateral] Onset: 04-08-2018 04-08-2018 Episodic Other ear and sense organ disorders (2 sources) Impacted cerumen; 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: [Impacted cerumen, unspecified ear] Onset: 06-30-2014 Resolved: 06-22-2020 06-22-2020 Episodic Other eye disorders (20 sources) Lesion [...] of skin] Onset: 10-09-2021 10-09-2021 Episodic Other nervous system disorders (18 sources) Dysarthria; 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: [Dysarthria and anarthria] Onset: 09-09-2023 09-09-2023 Episodic Other non-epithelial cancer of skin (20 [...] nutritional; endocrine; and metabolic disorders (2 sources) Lipids abnormal; 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: [Disorder of lipoprotein metabolism, unspecified] Resolved: 06-22-2020 06-22-2020 Chronic Other nutritional; endocrine; and metabolic disorders (13 sources) Weight loss; 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: [Abnormal weight loss] Onset: 10-08-2022 10-08-2022 Episodic Other nutritional; endocrine; and metabolic disorders (1 source) Abnormal weight loss; 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: [Weight loss] Onset: 10-08-2022 Episodic Other screening for suspected conditions (not mental disorders or infectious disease) (20 sources) Hormone level - finding; Translations: [Other specified abnormal findings of blood chemistry] Onset: 12-30-2020 12-30-2020 Episodic Other upper respiratory disease (2 sources) Allergic rhinitis; Translations: [Allergic rhinitis, unspecified] Onset: 06-19-2016 Resolved: 06-22-2020 06-22-2020 Chronic Residual codes; unclassified (20 sources) Tobacco user; Translations: [Tobacco use] Onset: 08-10-2015 08-10-2015 Episodic Residual codes; unclassified (20 sources) History of repair of aneurysm of abdominal aorta; Translations: [Other specified postprocedural states] Onset: 08-10-2015 Resolved: 06-22-2020 08-10-2015 Episodic Residual codes; unclassified (20 sources) [...] Onset: 10-08-2022 10-08-2022 Episodic Residual codes; unclassified (20 sources) Amnesia; Translations: [Other amnesia] Onset: 12-24-2022 Episodic Residual codes; unclassified (1 source) Other specified postprocedural states; Translations: [Post-operative state] Onset: 04-10-2022 Episodic Residual codes; unclassified (2 sources) History of cardiac catheterization; Translations: [Other specified postprocedural states] Resolved: 06-22-2020 06-22-2020 Episodic Residual codes; unclassified (20 sources) Inadequate sleep hygiene; Translations: [Inadequate sleep hygiene] Onset: 09-09-2023 09-09-2023 Episodic Superficial injury; contusion (20 sources) Tick bite; Translations: [Insect bite (nonvenomous) of abdominal wall, initial encounter] Onset: 09-26-2020 09-26-2020 Episodic Tuberculosis (1 source) Personal history of tuberculosis; Translations: [Personal history of tuberculosis] Onset: 08-24-2022 Episodic Results Test Name Value Interpretation Reference Range Facil ity EMG 2 Extremitieson 03-01-20 [facility] EMG/NCS BLE 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 He was counseled to see his PCP right away for this in his daughter was counseled the same thing. They agreed and said they would call in the morning for an appointment. 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 He was counseled to see his PCP right away for this in his daughter was counseled the same thing. They agreed and said they would call in the morning for an appointment. Formerly [facility] 02-25-20 [facility] Case Information Case Priority: None Programs: -- Referral Source: Director Of Analytics Referral Reason: Care coordination Case Type: Transition Care Management Risk Score: -- Case Status: Enrolled (January 29, 2024) Date Assigned: January 28, 2024 Assigned By: Sangeeta Thao Date Enrolled: January 29, 2024 Assigned Primary Personnel: Sangeeta Thao Assigned Secondary Personnel: -- Case Physician: Nanci Jarvis MD Problems Ongoing Actinic keratosis Alzheimer's disease, unspecified Anemia BMI 29.0-29.9,adult BMI 30.0-30.9,adult Carotid stenosis, bilateral Chronic obstructive pulmonary disease (COPD) Chronic respiratory failure with hypoxia Coronary artery disease Dementia Dementia in other diseases classified elsewhere, unspecified severity, without behavioral disturbance, psychotic disturbance, mood disturbance, and anxiety DANIEL (generalized anxiety disorder) Gait disorder HFrEF (heart failure with reduced ejection fraction) Hospital discharge follow-up HTN (hypertension) Hyperlipidemia IFG (impaired fasting glucose) Loose stools Mild pulmonary hypertension Muscle weakness Neuropathy half-way resident Obesity due to excess calories Overweight Pacemaker Paroxysmal atrial fibrillation Peripheral vascular disease Smoker 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 Home Medications Adult nebulizer with mask and tubing, See Instructions albuterol, See Instructions albuterol-ipratropium, See Instructions Johanna amiodarone 200 mg Tab, Oral, Daily amiodarone 200 mg Tab, 200 mg= 1 tab(s), Oral, Daily apixaban 2.5 mg oral tablet, 2.5 mg= 1 tab(s), Oral, BID Aspirin Low Dose 81 mg oral tablet, chewable atorvastatin 40 mg Tab, 40 mg= 1 tab(s), Oral, Daily, 5 refills donepezil 10 mg Tab, 10 mg= 1 tab(s), Oral, Once a day (at bedtime) ezetimibe 10 mg Tab, 10 mg= 1 tab(s), Oral, Daily fenofibrate 54 mg oral tablet, 54 mg= 1 tab(s), Oral, Daily hydrALAZINE 10 mg Tab, 10 mg= 1 tab(s), Oral, TID isosorbide dinitrate 10 mg Tab, 10 mg= 1 tab(s), Oral, TID Lasix 40 mg Tab, 40 mg= 1 tab(s), Oral, BID loratadine 10 mg oral capsule, 10 mg= 1 cap(s), Oral, Daily memantine 10 mg Tab Metamucil metoprolol succinate 25 mg ER Tab, 25 mg= 1 tab(s), Oral, BID nicotine 21 mg/24 hr Transderm ER Film, 1 patch(es), Topical, Daily nitroglycerin 0.4 mg sublingual Tab, 0.4 mg= 1 tab(s), SubLingual, q5min, PRN Pantoprazole [address] Tab, 40 mg= 1 tab(s), Oral, BID, 5 refills Vitamin D3 2000 intl units oral Tab, 50 mcg, Oral, Daily Allergies No Known Medication Allergies Social History Alcohol - Denies Alcohol Use, 12/24/2022 Never., 02/05/2024 Substance Abuse - Denies Substance Abuse, 12/24/2022 Never., 02/05/2024 Tobacco - High Risk, 02/15/2023 Former smoker, quit more than 30 days ago Tobacco Use:. Household tobacco concerns: No., 02/16/2024 Family History Alcoholism: Father. Diabetes mellitus type 2: Father. Screenings and Assessments No screenings and assessments have been documented. Goals and Interventions Care Plan Progress Note Called patient for continued follow-up for transitional care management. Spoke with patient's daughter, Michelle, who reports patient is doing okay at this time. Michelle states patient is still having numbness/tingling to bilateral lower extremities and has follow up testing scheduled this month. Michelle denies patient is experiencing pain, denies chest pain, denies shortness of breath, denies swelling to lower extremities. Michelle voices patient is eating/drinking without issues or concerns; denies nausea/vomiting/diarrhe a. Michelle relays patient continues to smoke and almost got kicked out of the Assisted Living facility he resides at. Michelle states that patient was using Nicotine patches, which were covered by his insurance, but are now OTC and was told he had to pay out of pocket. Provided resource 4-234-HVYP-NOW as they can provide free patches or gum. Denies any questions or concerns today for PCP. Informed Michelle that this would be final outreach call for TCM program for patient and to notify the office with any needs/questions/concern /issues; she verbalizes understanding. Communication Events Date: February 25, 2024 Method: Phone call Type: Outbound Duration (min): 4 Outcome: Case discussion Contact Type: reimbursement coordinator Contact Name: Sangeeta Thao Notes: TCM #4 - Contact made with patient's daughter, Michelle, regarding patient status update. See TCM #4. Created By: Sangeeta Thao Date: February 18, 2024 Method: Phone call Type: Outbound Duration (min): 3 Outcome: Case discussion Contact Type: Care coord (more content not included)... Normal [facility] 02-18-20 [facility] Case Information Case Priority: None Programs: -- Referral Source: Director Of Analytics Referral Reason: Care coordination Case Type: Transition Care Management Risk Score: -- Case Status: Enrolled (January 29, 2024) Date Assigned: January 28, 2024 Assigned By: Sangeeta Thao Date Enrolled: January 29, 2024 Assigned Primary Personnel: Sangeeta Thao Assigned Secondary Personnel: -- Case Physician: Nanci Jarvis MD Problems Ongoing Actinic keratosis Alzheimer's disease, unspecified Anemia BMI 29.0-29.9,adult BMI 30.0-30.9,adult Carotid stenosis, bilateral Chronic obstructive pulmonary disease (COPD) Chronic respiratory failure with hypoxia Coronary artery disease Dementia Dementia in other diseases classified elsewhere, unspecified severity, without behavioral disturbance, psychotic disturbance, mood disturbance, and anxiety DANIEL (generalized anxiety disorder) Gait disorder HFrEF (heart failure with reduced ejection fraction) Hospital discharge follow-up HTN (hypertension) Hyperlipidemia IFG (impaired fasting glucose) Loose stools Mild pulmonary hypertension Muscle weakness Neuropathy half-way resident Obesity due to excess calories Overweight Pacemaker Paroxysmal atrial fibrillation Peripheral vascular disease Smoker 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 Home Medications Adult nebulizer with mask and tubing, See Instructions albuterol, See Instructions albuterol-ipratropium, See Instructions Johanna amiodarone 200 mg Tab, Oral, Daily amiodarone 200 mg Tab, 200 mg= 1 tab(s), Oral, Daily apixaban 2.5 mg oral tablet, 2.5 mg= 1 tab(s), Oral, BID Aspirin Low Dose 81 mg oral tablet, chewable atorvastatin 40 mg Tab, 40 mg= 1 tab(s), Oral, Daily, 5 refills donepezil 10 mg Tab, 10 mg= 1 tab(s), Oral, Once a day (at bedtime) ezetimibe 10 mg Tab, 10 mg= 1 tab(s), Oral, Daily fenofibrate 54 mg oral tablet, 54 mg= 1 tab(s), Oral, Daily hydrALAZINE 10 mg Tab, 10 mg= 1 tab(s), Oral, TID isosorbide dinitrate 10 mg Tab, 10 mg= 1 tab(s), Oral, TID Lasix 40 mg Tab, 40 mg= 1 tab(s), Oral, BID loratadine 10 mg oral capsule, 10 mg= 1 cap(s), Oral, Daily memantine 10 mg Tab Metamucil metoprolol succinate 25 mg ER Tab, 25 mg= 1 tab(s), Oral, BID nicotine 21 mg/24 hr Transderm ER Film, 1 patch(es), Topical, Daily nitroglycerin 0.4 mg sublingual Tab, 0.4 mg= 1 tab(s), SubLingual, q5min, PRN Pantoprazole [address] Tab, 40 mg= 1 tab(s), Oral, BID, 5 refills Vitamin D3 2000 intl units oral Tab, 50 mcg, Oral, Daily Allergies No Known Medication Allergies Social History Alcohol - Denies Alcohol Use, 12/24/2022 Never., 02/05/2024 Substance Abuse - Denies Substance Abuse, 12/24/2022 Never., 02/05/2024 Tobacco - High Risk, 02/15/2023 Former smoker, quit more than 30 days ago Tobacco Use:. Household tobacco concerns: No., 02/16/2024 Family History Alcoholism: Father. Diabetes mellitus type 2: Father. Screenings and Assessments No screenings and assessments have been documented. Goals and Interventions Care Plan Progress Note Called patient for continued follow-up for transitional care management. Spoke with patient's daughter, Michelle, who reports patient is doing okay at this time. Michelle conveys that patient is still experiencing numbness/tingling to bilateral lower extremities but not as bad and is scheduled for testing in February for the numbness/tingling. Michelle states that patient also followed up with Neonatal Critical Care Nurse and was offered Watchman device but patient is not interested in this. Michelle denies that patient is experiencing chest pain, denies shortness of breath. Michelle reports patient is eating too much and drinking without issues or concerns; denies nausea/vomiting/diarrhe a. Patient's needs are met through Assisted Living staff where he resides. Michelle denies any questions or concerns today for PCP regarding patient. Informed Michelle that another outreach call would be made next week for follow up of which she is agreeable to. Communication Events Date: February 18, 2024 Method: Phone call Type: Outbound Duration (min): 3 Outcome: Case discussion Contact Type: reimbursement coordinator Contact Name: Sangeeta Thao Notes: TCM #3 - Contact made with patient's daughter, Michelle, regarding patient status update. See TCM #3. Created By: Sangeeta Thao Date: February 10, 2024 Method: Phone call Type: Outbound Duration (min): 4 Outcome: Case discussion Contact Type: reimbursement coordinator Contact Name: Sangeeta Thao Notes: TCM #2 - Contact made with patient's daughter, Michelle, regarding patient status update. See TCM #2. Created By (more content not included)... Normal [facility] Heart and Vascular Office/Cl inic Noteon 02-16-2024 Heart and Vascular Office/Clinic Note Heart and Vascular Office/Clinic Note Chief Complaint 3 month f/u afib History of Present Illness The patient is an 88-year-old male with past cardiac history of longstanding persistent atrial fibrillation on no anticoagulation due to history of GI bleeding with significant anemia. He does have a history of CAD with prior PCI although cannot recall when his stents were placed. He did have abnormal stress test in 03/2023 and declined cardiac catheterization at that time. Upon inquiry, patient declines cardiac cath at this time. He does not have any chest pains or significant shortness of breath. He was seen by Elijah Turner last time in the office on January 21, 2024; he was found to be in atrial fibrillation with RVR Physical Exam Vitals & Measurements HR: 88(Peripheral) RR: 16 BP: 126/84 SpO2: 96% HT: 69 in HT: 175 cm WT: 96.6 kg WT: 212.52 lb BMI: 31.54 General: alert, no acute distress Neck: Supple, noJVD nocarotid bruit Cardiovascular: regular rate and rhythm, no murmur normal peripheral perfusion Respiratory: Lungs CTAB, respirations non labored Extremities: no edema left lower extremity. no edema right lower extremity Neurological: oriented x 4, LOC appropriate for age, speech normal Skin: Warm, dry, intact- no rash or concerning lesions Procedure (01/23/2024 16:29 EDT Echo Transthoracic Complete) Adult Echocardiogram Report Name: THANH COLEMAN Study Date: 01/23/2024 03:46 PM BP: 131/81 mmHg Patient Location: [id number] [id number] [facility] Bed(s) [facility] HR: 110 : 1935 Gender: Male Height: 71.5 in Age: 88 yrs Ethnicity: T Weight: 214 lb Reason For Study: Congestive Heart Failure BSA: 2.2 m2 History: HTN,Smoker-Yes,CAD,Pace maker/ICD,Atrial Fibrillation,Murmur,CHF ,COPD,Stents,Pulmonary HTN,[place] Ordering Physician: Wendi Performed By: Sophie Crawford, RUST Interpretation Summary The left ventricle is mildly dilated. Left ventricular ejection fraction is severely reduced. Ejection Fraction = 25-30%. There is severe global hypokinesis of the left ventricle. The left atrium is mildly dilated. There is mild mitral regurgitation. There is no pericardial effusion. [1] Cardiac Diagnostics (03/27/2023 15:27 EST NM Myocardial [...] filling pattern. Dilated aorta. [2] Assessment/Plan 1. PAF (paroxysmal atrial fibrillation) (I48.0: Paroxysmal atrial fibrillation) Continue amiodarone, low-dose Eliquis. I brought up an option of a Watchman device, the patient is telling me that he would give it a thought. Can stop aspirin. 2. CAD in [place] artery (I25.10: Atherosclerotic heart disease of [place] coronary artery without angina pectoris) The patient declined invasive assessment in the past. I was unable to elicit any symptoms of angina. 3. Cardiomyopathy (I42.9: Cardiomyopathy, unspecified) On hydralazine and isosorbide dinitrate, as well as metoprolol succinate. He appears to be well compensated from the CHF standpoint. He declined invasive assessment in the past. He does not appear interested in further invasive procedures. Follow-up No qualifying data available 6 months Problem List/Past Medical History Ongoing Actinic keratosis Alzheimer's disease, unspecified Anemia BMI 29.0-29.9,adult BMI 30.0-30.9,adult Carotid stenosis, bilateral Chronic obstructive pulmonary disease (COPD) Chronic respiratory failure with hypoxia Coronary artery disease Dementia Dementia in other diseases classified elsewhere, unspecified severity, without behavioral disturbance, psychotic disturbance, mood disturbance, and anxiety DANIEL (generalized anxiety disorder) Gait disorder HFrEF (heart failure with reduced ejection fraction) Hospital discharge follow-up HTN (hypertension) Hyperlipidemia IFG (impaired fasting glucose) Loose stools Mild pulmonary hypertension Muscle weakness Neuropathy half-way resident Obesity due to excess calories Overweight Pacemaker Paroxysmal atrial fibrillation Peripheral vascular disease Smoker Stage 3b chronic kidney disease (CKD) Vascular dementia without behavioral disturbance, psychotic disturbance, mood disturbance, or anxiety Vitamin D deficiency Historical No qual (more content not included)... Normal [facility] Comment on above: Result Comment: Elec tronically Signed By: Alma PILLAI, Brady Cuenca\.br\Date and Time Signed: 02/16/24 15:42 EDT Population [facility] 02-10-20 [facility] Case Information Case Priority: None Programs: -- Referral Source: Director Of Analytics Referral Reason: Care coordination Case Type: Transition Care Management Risk Score: -- Case Status: Enrolled (January 29, 2024) Date Assigned: January 28, 2024 Assigned By: Sangeeta Thao Date Enrolled: January 29, 2024 Assigned Primary Personnel: Sangeeta Thao Assigned Secondary Personnel: -- Case Physician: Nanci Jarvis MD Problems Ongoing Actinic keratosis Alzheimer's disease, unspecified Anemia BMI 29.0-29.9,adult BMI 30.0-30.9,adult Carotid stenosis, bilateral Chronic obstructive pulmonary disease (COPD) Chronic respiratory failure with hypoxia Coronary artery disease Dementia Dementia in other diseases classified elsewhere, unspecified severity, without behavioral disturbance, psychotic disturbance, mood disturbance, and anxiety DANIEL (generalized anxiety disorder) Gait disorder HFrEF (heart failure with reduced ejection fraction) Hospital discharge follow-up HTN (hypertension) Hyperlipidemia IFG (impaired fasting glucose) Loose stools Mild pulmonary hypertension Muscle weakness Neuropathy half-way resident Obesity due to excess calories Overweight Pacemaker Paroxysmal atrial fibrillation Peripheral vascular disease Smoker 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 Home Medications Adult nebulizer with mask and tubing, See Instructions albuterol, See Instructions albuterol-ipratropium, See Instructions Johanna amiodarone 200 mg Tab, Oral, Daily amiodarone 200 mg Tab, 200 mg= 1 tab(s), Oral, Daily apixaban 2.5 mg oral tablet, 2.5 mg= 1 tab(s), Oral, BID Aspirin Low Dose 81 mg oral tablet, chewable atorvastatin 40 mg Tab, 40 mg= 1 tab(s), Oral, Daily, 5 refills donepezil 10 mg Tab, 10 mg= 1 tab(s), Oral, Once a day (at bedtime) ezetimibe 10 mg Tab, 10 mg= 1 tab(s), Oral, Daily fenofibrate 54 mg oral tablet, 54 mg= 1 tab(s), Oral, Daily hydrALAZINE 10 mg Tab, 10 mg= 1 tab(s), Oral, TID isosorbide dinitrate 10 mg Tab, 10 mg= 1 tab(s), Oral, TID Lasix 40 mg Tab, 40 mg= 1 tab(s), Oral, BID loratadine 10 mg oral capsule, 10 mg= 1 cap(s), Oral, Daily memantine 10 mg Tab Metamucil metoprolol succinate 25 mg ER Tab, 25 mg= 1 tab(s), Oral, BID nicotine 21 mg/24 hr Transderm ER Film, 1 patch(es), Topical, Daily nitroglycerin 0.4 mg sublingual Tab, 0.4 mg= 1 tab(s), SubLingual, q5min, PRN Pantoprazole [address] Tab, 40 mg= 1 tab(s), Oral, BID, 5 refills Vitamin D3 2000 intl units oral Tab, 50 mcg, Oral, Daily Allergies No Known Medication Allergies Social History Alcohol - Denies Alcohol Use, 12/24/2022 Never., 02/05/2024 Substance Abuse - Denies Substance Abuse, 12/24/2022 Never., 02/05/2024 Tobacco - High Risk, 02/15/2023 Former smoker, quit more than 30 days ago Tobacco Use:. Household tobacco concerns: No., 02/05/2024 Family History Alcoholism: Father. Diabetes mellitus type 2: Father. Screenings and Assessments No screenings and assessments have been documented. Goals and Interventions Care Plan Progress Note Called patient for continued follow-up for transitional care management. Spoke with patient's daughter, Michelle regarding patient status update. Michelle reports visiting patient yesterday and states he is doing okay at this time. Michelle denies that patient is experiencing any chest pain, denies shortness of breath, denies swelling to lower extremities, denies numbness to extremities. Michelle states patient is eating/drinking without issues or concerns; denies nausea/vomiting/diarrhe a. Michelle voices patient is getting around with walker and has help/needs met through staff [facility]. Michelle has scheduled patient a follow up appointment for Dr. Martinez/Neurologist and Dr. Marquez/Neonatal Critical Care Nurse for 02/16/2024. Denies questions or concerns today for PCP. Informed Michelle that another outreach call would be made to her next week for follow up of which she is agreeable to. Communication Events Date: February 10, 2024 Method: Phone call Type: Outbound Duration (min): 4 Outcome: Case discussion Contact Type: reimbursement coordinator Contact Name: Keesha Sangeeta Notes: TCM #2 - Contact made with patient's daughter, Michelle, regarding patient status update. See TCM #2. Created By: Sangeeta Thao Date: January 29, 2024 Method: Phone call Type: Outbound Duration (min): 13 Outcome: Case discussion Contact Type: reimbursement coordinator Contact Name: Sangeeta Thao Notes: TCM #1 - Contact made with patient's daughter, Michelle, for patient's initial TCM call. See TCM #1. Created By: Sangeeta Thao Date: January 27, (more content not included)... Normal [facility] Ambulatory Visit Summaryon 1 Ambulatory Visit Summary Ambulatory Visit Summary THANH COLEMAN :1935 Visit Date:02/05/2024 Ambulatory Visit Instructions Your Diagnosis Actinic keratosis Immunization due Your Care Team Attending Physician - Nanci Jarvis MD Primary Care Physician - Nanci Jarvis MD This Is Your Medications List [facility] Prescription (Adult nebulizer with mask and tubing) albuterol albuterol-ipratropium amiodarone (amiodarone 200 mg Tab) amiodarone (amiodarone 200 mg Tab) amiodarone (amiodarone 200 mg Tab) apixaban (apixaban 2.5 mg oral tablet) aspirin (Aspirin Low Dose 81 mg oral tablet, chewable) atorvastatin (atorvastatin 40 mg Tab) cholecalciferol (Vitamin D3 2000 intl units oral Tab) donepezil (donepezil 10 mg Tab) ezetimibe (ezetimibe 10 mg Tab) fenofibrate (fenofibrate 54 mg oral tablet) fexofenadine (Johanna) furosemide (Lasix 40 mg Tab) hydrALAZINE (hydrALAZINE 10 mg Tab) isosorbide dinitrate (isosorbide dinitrate 10 mg Tab) loratadine (loratadine 10 mg oral capsule) memantine (memantine 10 mg Tab) metoprolol (metoprolol succinate 25 mg ER Tab) nicotine (nicotine 21 mg/24 hr Transderm ER Film) nitroglycerin (nitroglycerin 0.4 mg sublingual Tab) pantoprazole (Pantoprazole [address] Tab) psyllium (Metamucil) Procedures Performed Colonoscopy (02/17/2023), EGD - esophagogastroduodenosc opy (02/16/2023), Cardiac pacemaker. Discharge Vitals Heart Rate (Peripheral) 62 Blood Pressure 122/74 Height 182 cm Height 72 in Weight 96.8 kg Weight 212.96 lb BMI 29.22 What to do next Scheduled Follow-Up Appointments Friday 3:45 PM EDT With: Alma PILLAI, Brady Cuenca Where: [facility] 2024 2:30 PM EST With: Where: [facility] Medications What How Much When Why Instructions Unchanged albuterol See instructions albuterol sulfate 90mcg/ actuation aerosol powder - 2 puffs Q6hrs prn Unchanged albuterol-ipratropium See instructions 3 ml inhale q6h PRN SOB Unchanged amiodarone (amiodarone 200 mg Tab) 1 Tablets By Mouth 2 times a day Unchanged amiodarone (amiodarone 200 mg Tab) By Mouth Every day Unchanged amiodarone (amiodarone 200 mg Tab) 1 Tablets By Mouth Every day Taking 1 tab 200 mg daily beginning Unchanged apixaban (apixaban 2.5 mg oral tablet) 1 Tablets By Mouth 2 times a day Unchanged aspirin (Aspirin Low Dose 81 mg oral tablet, chewable) 30 tab(s), 0 Refill(s) Unchanged atorvastatin (atorvastatin 40 mg Tab) 1 Tablets By Mouth Every day Unchanged cholecalciferol (Vitamin D3 2000 intl units oral Tab) 50 Microgram By Mouth Every day Unchanged donepezil (donepezil 10 mg Tab) 1 Tablets By Mouth Once a day (at bedtime) Unchanged ezetimibe (ezetimibe 10 mg Tab) 1 Tablets By Mouth Every day Unchanged fenofibrate (fenofibrate 54 mg oral tablet) 1 Tablets By Mouth Every day Unchanged fexofenadine (Johanna) Unchanged furosemide (Lasix 40 mg Tab) 1 Tablets By Mouth 2 times a day Unchanged hydrALAZINE (hydrALAZINE 10 mg Tab) 1 Tablets By Mouth 3 times a day Unchanged isosorbide dinitrate (isosorbide dinitrate 10 mg Tab) 1 Tablets By Mouth 3 times a day Unchanged loratadine (loratadine 10 mg oral capsule) 1 Capsules By Mouth Every day Unchanged memantine (memantine 10 mg Tab) 30 tab(s), 0 Refill(s) Unchanged metoprolol (metoprolol succinate 25 mg ER Tab) 1 Tablets By Mouth 2 times a day Unchanged Misc Prescription (Adult nebulizer with mask and tubing) See instructions Chronic obstructive pulmonary disease (COPD) Adult nebulizer with mask and tubing, uses q4h prn Unchanged nicotine (nicotine 21 mg/ 24 hr Transderm ER Film) 1 Patches Topical Every day Encounter for smoking cessation counseling Unchanged nitroglycerin (nitroglycerin 0.4 mg sublingual Tab) 1 Tablets Sublingual Every 5 minutes as needed for for chest pain Unchanged pantoprazole (Pantoprazole [address] Tab) 1 Tablets By Mouth 2 times a day Unchanged psyllium (Metamucil) Medications and Immunizations Administered Given Fluzone High-Dose PF Prefilled Syringe , 0.5 mL, IntraMuscular. For: Immunization due influenza virus vaccine, inactivated, IntraMuscular Allergies No Known Medication Allergies Problems Ongoing - Any problem that you are currently receiving treatment for. Actinic keratosis Alzheimer's disease, unspecified Anemia BMI 30.0-30.9,adult Carotid stenosis, bilateral Chronic obstructive pulmonary disease (COPD) Chronic respiratory failure with hypoxia Coronary artery disease Dementia Dementia in other diseases classified elsewhere, unspecified severity, without behavioral disturbance, psychotic disturbance, mood disturbance, and anxiety DANIEL (generalized anxiety disorder) Gait disorder HTN (hypertension) Hyperlipidemia IFG (impaired fasting glucose) Loose stools Mild pulmonary hypertension Muscle weakness Neuropathy half-way resident Obesity due to excess (more content not included)... Normal [facility] Family Medicine Office/Clini c Noteon 02-05-2024 Family Medicine Office/Clinic Note Family Medicine Office/Clinic Note Chief Complaint tcm HPI Staff TCM: Hospital: [facility] Admission date: Discharge date: 01/27/24 Symptoms the patient presented with: a- fib, acute heart failure with reduced ejection fraction, Current concerns: feeling alright, tired and low energy, History of Present Illness The patient is an 88-year-old male presenting with hospital discharge follow-up and evaluation for lower extremity numbness. The patient was admitted to [facility] from 01/22 to 01/27/24 with lower extremity numbness, which started earlier that morning. During his hospital stay, he was found to be in atrial fibrillation with rapid ventricular response and was treated with a bolus of amiodarone. A subsequent echo revealed new reduced ejection fraction heart failure with a left ventricular ejection fraction of 25-30% and severe global hypokinesis. Additionally, the inferior vena cava was mildly dilated. Due to high fall risk, anticoagulation was initially not pursued, but Eliquis 2.5 mg was later started, alongside amiodarone 200 mg daily and increased Lasix to 40 mg twice daily for heart failure management. Isosorbide 10 mg thrice daily and hydralazine 10 mg thrice daily were also initiated. Metoprolol was reduced to 25 mg twice daily. Neurology was consulted regarding the leg numbness, which was attributed to mild edema, and recommended follow-up for a possible electromyography in two to four weeks. The patient was discharged in stable condition to return to assisted living. Currently, he reports improvement in numbness, denies swelling or chest pain, and states his blood pressure and heart rate are well-controlled. Review of Systems PHQ Score Initial Depression Screen Score: 2 SCORE Negative except as above Physical Exam Vitals & Measurements HR: 62(Peripheral) BP: 122/74 SpO2: 97% HT: 72 in HT: 182 cm WT: 96.8 kg WT: 212.96 lb BMI: 29.22 Gen: No acute distress, sitting comfortably in chair Cardio: RRR, no murmur/rubs/gallops Resp: CTAB, no wheezing/rales/rhonchi Psych: Pleasant, normal mood, normal affect Neuro: CN II-XII intact, uses walker for ambulation Skin: Actinic keratosis of right dorsal hand Procedure Procedure: Excision of skin lesion Pre-Procedure Diagnosis: Actinic keratosis Post-Procedure Diagnosis: Same PROCEDURE: Risks and benefits of the procedure were discussed with the patient. Patient gave verbal consent. Right dorsal hand was inspected. Area was cleaned with Betadine. Using a 25-gauge 5/8 inch needle, 1 cc of lidocaine with epinephrine was injected. Aspiration before injection did not show any blood. Nodule was excised with #11 blade. Silver nitrite stick used to stop the bleeding. Patient tolerated the procedure well with no complications. There was minimal blood loss. Return precautions were given and standard post procedure care was explained. Assessment/Plan 1. Hospital discharge follow-up (Z09: Encounter for follow-up examination after completed treatment for conditions other than malignant neoplasm) Patient's new medications from hospitalization includes Eliquis 2.5 mg twice daily, amiodarone 200 mg daily, Lasix 40 mg twice daily, isosorbide 10 mg 3 times daily, hydralazine 10 mg 3 times daily, metoprolol 25 mg twice daily Keep appointments with cardiology and neurology on 02/16/2024 2. HTN (hypertension) (I10: Essential (primary) hypertension) Stable Continue Hydralazine 10 mg 3 times daily, metoprolol 25 mg twice daily 3. Paroxysmal atrial fibrillation (I48.0: Paroxysmal atrial fibrillation) Keep appointment with cardiology on 02/16/2024 Continue Eliquis 2.5 mg twice daily, amiodarone 200 mg daily 4. HFrEF (heart failure with reduced ejection fraction) (I50.20: Unspecified systolic (congestive) heart failure) Keep appointment with cardiology on 02/16/2024 Cont Lasix 40 mg twice daily, isosorbide 10 mg 3 times daily, hydralazine 10 mg 3 times daily, metoprolol 25 mg twice daily 5. Actinic keratosis (L57.0: Actinic keratosis) actinic keratosis on right hand was removed today see procedure note 6. BMI 29.0-29.9,adult (Z68.29: Body mass index [BMI] [...] management will be followed at subsequent visits. 7. Overweight (E66.3: Overweight) increase whole foods, decrease processed foods exercise at least 2.5 hours weekly 8. Smoker (F17.200: Nicotine dependence, unspecified, uncomplicated) declines quitting at this time Immunization due (Z23: Encounter for immunization) flu shot given today Ordered: influenza virus vaccine, inactivated, 0.5 mL, Susp-Inj, IntraMuscular, Once, Stop date 02/05/24 16:00:00 EDT, Routine, Start date 02/05/24 16:00:00 EDT A (more content not included)... Normal [facility] Comment on above: Result Comment: Elec tronically Signed By: Nanci Jarvis MD\.br\Date and Time Signed: 02/05/24 16:07 EDT Population [facility] 01-29-20 [facility] Case Information Case Priority: None Programs: -- Referral Source: Director Of Analytics Referral Reason: Care coordination Case Type: Transition Care Management Risk Score: -- Case Status: Enrolled (January 29, 2024) Date Assigned: January 28, 2024 Assigned By: Sangeeta Thao Date Enrolled: January 29, 2024 Assigned Primary Personnel: Sangeeta Thao Assigned Secondary Personnel: -- Case Physician: Nanci Jarvis MD Problems Ongoing Alzheimer's disease, unspecified Anemia BMI 30.0-30.9,adult Carotid stenosis, bilateral Chronic obstructive pulmonary disease (COPD) Chronic respiratory failure with hypoxia Coronary artery disease Dementia Dementia in other diseases classified elsewhere, unspecified severity, without behavioral disturbance, psychotic disturbance, mood disturbance, and anxiety DANIEL (generalized anxiety disorder) Gait disorder HTN (hypertension) Hyperlipidemia IFG (impaired fasting glucose) Loose stools Mild pulmonary hypertension Muscle weakness Neuropathy half-way resident Obesity due to excess calories Overweight Pacemaker Paroxysmal atrial fibrillation Peripheral vascular disease Smoker 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 Home Medications Adult nebulizer with mask and tubing, See Instructions albuterol, See Instructions albuterol-ipratropium, See Instructions Johanna amiodarone 200 mg Tab, 200 mg= 1 tab(s), Oral, BID amiodarone 200 mg Tab, 200 mg= 1 tab(s), Oral, Daily apixaban 2.5 mg oral tablet, 2.5 mg= 1 tab(s), Oral, BID Aspirin Low Dose 81 mg oral tablet, chewable atorvastatin 40 mg Tab, 40 mg= 1 tab(s), Oral, Daily, 5 refills donepezil 10 mg Tab, 10 mg= 1 tab(s), Oral, Once a day (at bedtime) ezetimibe 10 mg Tab, 10 mg= 1 tab(s), Oral, Daily fenofibrate 54 mg oral tablet, 54 mg= 1 tab(s), Oral, Daily hydrALAZINE 10 mg Tab, 10 mg= 1 tab(s), Oral, TID isosorbide dinitrate 10 mg Tab, 10 mg= 1 tab(s), Oral, TID Lasix 40 mg Tab, 40 mg= 1 tab(s), Oral, BID memantine 10 mg Tab Metamucil metoprolol succinate 25 mg ER Tab, 25 mg= 1 tab(s), Oral, BID nicotine 21 mg/24 hr Transderm ER Film, 1 patch(es), Topical, Daily nitroglycerin 0.4 mg sublingual Tab, 0.4 mg= 1 tab(s), SubLingual, q5min, PRN Pantoprazole [address] Tab, 40 mg= 1 tab(s), Oral, BID, 5 refills Vitamin D3 2000 intl units oral Tab, 50 mcg, Oral, Daily Allergies No Known Medication Allergies Social History Alcohol - Denies Alcohol Use, 12/24/2022 Substance Abuse - Denies Substance Abuse, 12/24/2022 Tobacco - High Risk, 02/15/2023 4 or less cigarettes(less than 1/4 pack)/day in last 30 days Tobacco Use:. Never Smokeless Tobacco Use:. Cigarettes, Ready to change: No. Household tobacco concerns: No. Yes, 01/21/2024 Family History Alcoholism: Father. Diabetes mellitus type 2: Father. Screenings and Assessments No screenings and assessments have been documented. Goals and Interventions Care Plan Progress Note Admit Date: 01/23/2024 Date of Discharge: 01/27/2024 Follow-up appointment scheduled? Yes, with Dr. Nanci Jarvis on 02/05/2024 at 3pm. Did you understand your discharge instructions? Yes - Michelle, patient's daughter, [facility] facility has paperwork. Are you able to follow them? Yes - Patient lives in an Assisted Living facility and has nursing staff who administers patient's medications. Did you receive new medications? Yes: Apixaban 2.5mg, one tablet, BID, Hydralazine 10mg TID, Isosorbide dinitrate 10mg TID. Changed: Amiodarone 200mg BID then 200mg daily starting 02/09/2024, Furosemide 40mg BID, Metoprolol 25mg BID. Stop: Prednisone. Have you filled the Rx's? Yes Are you taking them as prescribed? Patient lives in an Assisted Living facility and has nursing staff who administers patient's medications. Are you having difficulty eating or swallowing your pills? No Are you having any stomach upset, diarrhea or constipation? No How are you sleeping? Michelle denies patient is experiencing any issues with sleep. Are you having any pain? Michelle denies patient is experiencing pain. Do you have everything you need at home to care for yourself? Patient resides in an Assisted Living facility and has needs met by staff. Do you have Home Health? No Called patient's daughter, Michelle (HIPPA contact) for patient's initial call for Transitional Care Management Program. Risk score is Moderate for readmission. Reviewed d/c instructions and dx of atrial fibrillation with RVR, acute heart failure with reduced ejection fraction, numbness, CAD, HLD, HTN, mild pulmonary HTN, COPD, carotid stenosis, bilateral, stage 3b CKD, dementi (more content not included)... Normal [facility] BMPon 01-27-2024 Anion gap [Moles/Vol] 10 mmol/L Normal 6-[address] [facility] Comment on above: Performed By: #### 2 [id number] #### [facility] [address] [place] [address] Calcium [Mass/Vol] 9.1 mg/dL Normal 8.9-11.[address] [facility] Comment on above: Performed By: #### 2 [id number] #### [facility] [address] [place] [address] Chloride [Moles/Vol] 100 mmol/L Low 101-[address] [facility] Comment on above: Performed By: #### 2 [id number] #### [facility] [address] [place] [address] CO2 [Moles/Vol] 36 mmol/L High 21-[address] [facility] Comment on above: Performed By: #### 2 056607 #### [facility] [address] [place] [address] Creatinine [Mass/Vol] 1.9 mg/dL High 0.5-1.[address] [facility] Comment on above: Performed By: #### 2 [id number] #### [facility] [address] [place] [address] Glucose [Mass/Vol] 98 mg/dL Normal 55-[address] [facility] Comment on above: Performed By: #### 2 085811 #### [facility] [address] [place] [address] Potassium [Moles/Vol] 4.1 mmol/L Normal 3.5-5.[address] [facility] Comment on above: Performed By: #### 2 048574 #### [facility] [address] [place] [address] Sodium [Moles/Vol] 142 mmol/L Normal 135-[address] [facility] Comment on above: Performed By: #### 2 [id number] #### [facility] [address] [place] [address] Urea nitrogen [Mass/Vol] 26 mg/dL High 5-[address] [facility] Comment on above: Performed By: #### 2 [id number] #### [facility] [address] [place] [address] Urea nitrogen/Creatinine [Mass ratio] 14 No Units Normal 10-[address] [facility] Comment on above: Performed By: #### 2 [id number] #### [facility] [address] [place] [address] CBC w/ Auto Diffon 4 Basophils/100 WBC (Bld) 0.6 % Normal 0.0-2.[address] [facility] Comment on above: Performed By: #### 2 [id number] ####[facility] [address] [place] [address] Basophils/Leukocyte s Auto (Bld) [Pure # fraction] 0.1 E9/L Normal 0.0-0.[address] [facility] Comment on above: Performed By: #### 2 568995 ####[address] [address] Eosinophils (Bld) [#/Vol] 0.2 E9/L Normal 0.0-0.[address] [facility] Comment on above: Performed By: #### 2 884884 ####[address] [address] Eosinophils/100 WBC (Bld) 2.9 % Normal 0.0-8.[address] [facility] Comment on above: Performed By: #### 2 356492 ####[address] [address] Erythrocyte distribution width (RBC) [Ratio] 19.7 % High 10.9-14.[address] [facility] Comment on above: Performed By: #### 2 385552 ####[address] [address] Hematocrit (Bld) [Volume fraction] 37.3 % Low 37.7-49.[address] [facility] Comment on above: Performed By: #### 2 498121 ####[address] [address] Hemoglobin (Bld) [Mass/Vol] 11.5 g/dL Low 13.5-17.[address] [facility] Comment on above: Performed By: #### 2 [id number] ####[address] [address] Hypochromia Auto Ql (Bld) PRESENT Invalid Interpretation Code [facility] Comment on above: Performed By: #### 2 527778 ####[address] [address] Lymphocytes (Bld) [#/Vol] 1.4 E9/L Normal 1.0-4.[address] [facility] Comment on above: Performed By: #### 2 654377 ####[address] [address] Lymphocytes/100 WBC (Bld) 16.3 % Normal 14.0-50.[address] [facility] Comment on above: Performed By: #### 2 622139 ####[facility] [address] [place] [address] MCH (RBC) [Entitic mass] 22.8 pg Low 27.0-34.[address] [facility] Comment on above: Performed By: #### 2 526077 ####[address] [address] MCHC (RBC) [Mass/Vol] 30.7 g/dL Low 31.4-36.[address] [facility] Comment on above: Performed By: #### 2 467860 ####[address] [address] MCV (RBC) [Entitic vol] 74.3 fL Low 80.0-100.[address] [facility] Comment on above: Performed By: #### 2 446393 ####[address] [address] Microcytes Ql (Bld) PRESENT Invalid Interpretation Code [facility] Comment on above: Performed By: #### 2 967334 ####[address] [address] Monocytes (Bld) [#/Vol] 0.8 E9/L Normal 0.2-1.[address] [facility] Comment on above: Performed By: #### 2 [id number] ####[address] [address] Neutrophils (Bld) [#/Vol] 6.0 E9/L Normal 2.0-7.[address] [facility] Comment on above: Performed By: #### 2 277632 ####[address] [address] Neutrophils/100 WBC (Bld) 70.5 % Normal 36.0-75.[address] [facility] Comment on above: Performed By: #### 2 774840 ####[address] [address] Platelet mean volume (Bld) [Entitic vol] 9.9 fL Normal 6.4-10.[address] [facility] Comment on above: Performed By: #### 2 109027 ####[facility] [address] [place] [address] Platelets (Bld) [#/Vol] 160.0 E9/L Normal 150.0-500.[address] [facility] Comment on above: Performed By: #### 2 999515 ####[facility] [address] [place] [address] RBC (Bld) [#/Vol] 5.0 E12/L Normal 4.3-5.[address] [facility] Comment on above: Performed By: #### 2 555254 ####[facility] [address] [place] [address] RBC size Nom (Bld) SEE MORPHOLOGY Invalid Interpretation Code [facility] Comment on above: Performed By: #### 2 071309 ####[facility] [address] [place] [address] WBC corrected for nucl RBC Auto (Bld) [#/Vol] 8.5 E9/L Normal 4.0-11.[address] [facility] Comment on above: Performed By: #### 2 938856 ####[facility] [address] [place] [address] CHEMISTRYOrdered By: SYSTEM SYSTEM on 01-27-2024 Anion gap [Moles/Vol] 10 mmol/L Normal 6 - 16 mEq/L Remisol Chem Calcium [Mass/Vol] 9.1 mg/dL Normal 8.9 - 11.1 mg/dL Rem[facility] Chem Chloride [Moles/Vol] 100 mmol/L Low 101 - 111 mmol/L Rem[facility] Chem CO2 [Moles/Vol] 36 mmol/L High 21 - 31 mmol/L Remis ol Chem Creatinine [Mass/Vol] 1.9 mg/dL High 0.5 - 1.3 mg/dL Remisol Chem eGFR 33 mL/min/1.73 m2 Low >=59mL/min /1.73 m2 Remisol Chem Glucose [Mass/Vol] 98 mg/dL Normal 55 - 199 mg/dL Re misol Chem Potassium [Moles/Vol] 4.1 mmol/L Normal 3.5 - 5.3 mmol/L Rem[facility] Chem Sodium [Moles/Vol] 142 mmol/L Normal 135 - 145 mmol/L Rem[facility] Chem Urea nitrogen [Mass/Vol] 26 mg/dL High 5 - 21 mg/dL [facility] Chem Urea nitrogen/Creatinine [Mass ratio] 14 mg/mg Normal 10 - 20 Remisol Chem HEMATOLOGYOrdered By: SYSTEM SYSTEM on 01-27-2024 Basophils/100 WBC (Bld) 0.6 % Normal 0.0 - 2.0 % Remisol Heme Basophils/Leukocyte s Auto (Bld) [Pure # fraction] 0.1 E9/L Normal 0.0 - 0.2 E9/L Rem[facility] Heme Eosinophils (Bld) [#/Vol] 0.2 E9/L Normal 0.0 - 0.5 E9/L Rem[facility] Heme Eosinophils/100 WBC (Bld) 2.9 % Normal 0.0 - 8.0 % Remisol Heme Erythrocyte distribution width (RBC) [Ratio] 19.7 % High 10.9 - 14.2 % Rem[facility] Heme Hematocrit (Bld) [Volume fraction] 37.3 % Low 37.7 - 49.0 % Remisol Heme Hemoglobin (Bld) [Mass/Vol] 11.5 g/dL Low 13.5 - 17.5 gm/dL Remisol Heme Hypochromia Auto Ql (Bld) PRESENT *NA* (01/27/24 5:49 AM) Invalid Interpretation Code Remisol Heme Lymphocytes (Bld) [#/Vol] 1.4 E9/L Normal 1.0 - 4.0 E9/L Remisol Heme Lymphocytes/100 WBC (Bld) 16.3 % Normal 14.0 - 50.0 % Remisol Heme MCH (RBC) [Entitic mass] 22.8 pg Low 27.0 - 34.0 pg Remisol Heme MCHC (RBC) [Mass/Vol] 30.7 g/dL Low 31.4 - 36.0 gm/dL Remisol Heme MCV (RBC) [Entitic vol] 74.3 fL Low 80.0 - 100.0 fL Remisol Heme Microcytes Ql (Bld) PRESENT *NA* (01/27/24 5:49 AM) Invalid Interpretation Code Remisol Heme Monocytes (Bld) [#/Vol] 0.8 E9/L Normal 0.2 - 1.0 E9/L Remisol Heme Monocytes/100 WBC (Bld) 9.7 % Normal 4.0 - 14.0 % Remisol Heme Neutrophils (Bld) [#/Vol] 6.0 E9/L Normal 2.0 - 7.5 E9/L Remisol Heme Neutrophils/100 WBC (Bld) 70.5 % Normal 36.0 - 75.0 % Remisol Heme Platelet mean volume (Bld) [Entitic vol] 9.9 fL Normal 6.4 - 10.8 fL Remisol Heme Platelets (Bld) [#/Vol] 160.0 E9/L Normal 150.0 - 500.0 E9/L Remisol Heme RBC (Bld) [#/Vol] 5.0 E12/L Normal 4.3 - 5.9 E12/L Re misol Heme RBC size Nom (Bld) SEE MORPHOLOGY *NA* (01/27/24 5:49 AM) Invalid Interpretation Code Remisol Heme WBC corrected for nucl RBC Auto (Bld) [#/Vol] 8.5 E9/L Normal 4.0 - 11.0 E9/L Remisol Heme Inpatient Patient Summaryon 01-27-2024 Inpatient Patient Summary Inpatient Patient Summary THANH COLEMAN :1935 Visit Date:01/23/2024 Inpatient Discharge Instructions Your Care Team Admitting Physician - Lavell Siegel DO Consulting Physician - Marquez Martinez MD [facility] Cardio, XXXX Mine PILLAI, Stew Reason for Your Visit my legs and arms were numb Your Diagnosis Atrial fibrillation with RVR Acute heart failure with reduced ejection fraction (HFrEF, <= 40%) Numbness Coronary artery disease Hyperlipidemia HTN (hypertension) Mild pulmonary hypertension Chronic obstructive pulmonary disease (COPD) Carotid stenosis, bilateral Stage 3b chronic kidney disease (CKD) Dementia Paresthesia Tachycardia Tests Performed Echo Transthoracic Complete XR Chest Single View This Is Your Medications List [facility] Prescription (Adult nebulizer with mask and tubing) albuterol albuterol-ipratropium amiodarone (amiodarone 200 mg Tab) amiodarone (amiodarone 200 mg Tab) apixaban (apixaban 2.5 mg oral tablet) aspirin (Aspirin Low Dose 81 mg oral tablet, chewable) atorvastatin (atorvastatin 40 mg Tab) cholecalciferol (Vitamin D3 2000 intl units oral Tab) donepezil (donepezil 10 mg Tab) ezetimibe (ezetimibe 10 mg Tab) fenofibrate (fenofibrate 54 mg oral tablet) fexofenadine (Johanna) furosemide (Lasix 40 mg Tab) hydrALAZINE (hydrALAZINE 10 mg Tab) isosorbide dinitrate (isosorbide dinitrate 10 mg Tab) memantine (memantine 10 mg Tab) metoprolol (metoprolol succinate 25 mg ER Tab) nicotine (nicotine 21 mg/24 hr Transderm ER Film) nitroglycerin (nitroglycerin 0.4 mg sublingual Tab) pantoprazole (Pantoprazole [address] Tab) psyllium (Metamucil) [Image Removed: STOP]Stop taking these medications predniSONE (predniSONE 20 mg Tab) Procedure History Colonoscopy (02/17/2023), EGD - esophagogastroduodenosc opy (02/16/2023), Cardiac pacemaker. Discharge Vitals Temperature (Axillary) 36.4 ?C Heart Rate (Monitored) 75 Respiratory Rate 16 Blood Pressure 149/80 Weight 99.7 kg What to do next Instructions From Your Doctor Event Name Event Result Pending Diagnostic Test Results None Discharge Instructions Please return to ER if symptoms change or worsen. Please follow-up with cardiology in 2 days at given appointment. Previously Scheduled Follow-Up Appointments Friday 3:45 PM EDT With: Alma PILLAI, Brady Cuenca Where: [facility] 2024 2:30 PM EST With: Where: [facility] New Follow Up Appointments after Discharge Follow Up with Nanci Jarvis MD, [facility], [facility] When: Where: [id number] Follow Up with Juan PILLAI, HALLEY Zayas When: Within 2 to 4 weeks Where: [facility] [place] [address]- Medications What How Much When Why Instructions Next Dose New apixaban (apixaban 2.5 mg oral tablet) 1 Tablets By Mouth 2 times a day Pickup at [facility]/pharmacy #[id number] 01/27/24 6pm New hydrALAZINE (hydrALAZINE 10 mg Tab) 1 Tablets By Mouth 3 times a day Pickup at [facility]/pharmacy #[id number] 01/27/24 6pm New isosorbide dinitrate (isosorbide dinitrate 10 mg Tab) 1 Tablets By Mouth 3 [id number]/27[facility]24 6pm Changed amiodarone (amiodarone 200 mg Tab) 1 Tablets By Mouth Every day Taking 1 tab 200 mg daily beginning Pickup at [facility]/pharmacy #[id number] 02/09/24 Changed amiodarone (amiodarone 200 mg Tab) 1 Tablets By Mouth 2 times a day Pickup at [facility]/pharmacy #[id number] 01/28/24 8am Changed furosemide (Lasix 40 mg Tab) 1 Tablets By Mouth 2 times a [facility] 01/27/24 6pm Changed metoprolol (metoprolol succinate 25 mg ER Tab) 1 Tablets By Mouth 2 times a [id number] 01/28/24 8am Unchanged albuterol See instructions albuterol sulfate 90mcg/ actuation aerosol powder - 2 puffs Q6hrs prn follow directions Unchanged albuterol-ipratropium See instructions 3 ml inhale q6h PRN SOB follow directions Unchanged aspirin (Aspirin Low Dose 81 mg oral tablet, chewable) daily 30 tab(s), 0 Refill(s) 01/28/24 8am Unchanged atorvastatin (atorvastatin 40 mg Tab) 1 Tablets By Mouth Every day 01/28/24 8am Unchanged cholecalciferol (Vitamin D3 2000 intl units oral Tab) 50 Microgram By Mouth Every day 01/28/24 8am Unchanged donepezil (donepezil 10 mg Tab) 1 Tablets By Mouth Once a day (at bedtime) 01/27/24 9pm Unchanged ezetimibe (ezetimibe 10 mg Tab) 1 Tablets By Mouth Every day 01/28/24 8am Unchanged fenofibrate (fenofibrate 54 mg oral tablet) 1 Tablets By Mouth Every day 01/28/24 8am Unchanged fexofenadine (Johanna) resume Unchanged memantine (memantine 10 mg Tab) 30 tab(s), 0 Refill(s) resume Unchanged Misc Prescription (Adult nebulizer with mask and tubing) See instructions Chronic obstructive pulmonary disease (COPD) Adult nebulizer with mask and tubing, uses q4h prn Unchanged nicotine (nicotine 21 mg/ 24 hr Transderm ER Film) 1 Patches Topical Every day Encounter for smo (more content not included)... Normal [facility] Interdisciplinary Note - Ron e Manageron 01-27-2024 Interdisciplinary Note - Statement Processor Interdisciplinary Note - Statement Processor CRM to room 324 Patient is awake , alert and oriented to CRM questions. [place] is [place]. Patient says they usually provide him transport. CRM verified they can typically assist with transport before 3 Pm , Would need to call [facility] [place] to verify [phone]. Per [facility] his daughter assist otherwise. Patient verified info with CRM such as insurance and PCP. Patient came in as inpatient, IMM completed on 01/22, this gets reviewed. Patient is here for A Fib with RVR. Patient has been changed to oral meds. He is assigned to Dr Siegel, see notes. Patient has cardiology on case. PT/OT cleared for no needs. Patient will be on Eliquis at [place]. Patient was provided CRM contact, stacey board updated. CRM following CRM will get updates from Dr Siegel today at [address] [facility] Comment on above: Result Comment: Elec tronically Signed By: Natalya Rivas\.br\Date and Time Signed: 01/27/24 09:10 EDT eGFRon 01-27-2024 eGFR 33 mL/min/1.73 m2 Low >=[address] [facility] Comment on above: Performed By: #### 1 [id number] #### [facility] [address] [place] [address] BMPon 01-26-2024 Anion gap [Moles/Vol] 9 mmol/L Normal 6-[address] [facility] Comment on above: Performed By: #### 2 [id number] #### [facility] [address] [place] [address] Calcium [Mass/Vol] 8.7 mg/dL Low 8.9-11.[address] [facility] Comment on above: Performed By: #### 2 [id number] #### [facility] [address] [place] [address] Chloride [Moles/Vol] 103 mmol/L Normal 101-[address] [facility] Comment on above: Performed By: #### 2 [id number] #### [facility] [address] [place] [address] CO2 [Moles/Vol] 35 mmol/L High 21-[address] [facility] Comment on above: Performed By: #### 2 [id number] #### [facility] [address] [place] [address] Creatinine [Mass/Vol] 1.7 mg/dL High 0.5-1.[address] [facility] Comment on above: Performed By: #### 2 [id number] #### [facility] [address] [place] [address] Glucose [Mass/Vol] 99 mg/dL Normal 55-[address] [facility] Comment on above: Performed By: #### 2 [id number] #### [facility] [address] [place] [address] Potassium [Moles/Vol] 3.6 mmol/L Normal 3.5-5.[address] [facility] Comment on above: Performed By: #### 2 [id number] #### [facility] [address] [place] [address] Sodium [Moles/Vol] 143 mmol/L Normal 135-[address] [facility] Comment on above: Performed By: #### 2 [id number] #### [facility] [address] [place] [address] Urea nitrogen [Mass/Vol] 21 mg/dL Normal 5-[address] [facility] Comment on above: Performed By: #### 2 [id number] #### [facility] [address] [place] [address] Urea nitrogen/Creatinine [Mass ratio] 12 No Units Normal 10-[address] [facility] Comment on above: Performed By: #### 2 [id number] #### [facility] [address] [place] [address] CBC w/ Auto Diffon 4 Basophils/100 WBC (Bld) 0.5 % Normal 0.0-2.[address] [facility] Comment on above: Performed By: #### 2 [id number] #### [facility] [address] [place] [address] Basophils/Leukocyte s Auto (Bld) [Pure # fraction] 0.0 E9/L Normal 0.0-0.[address] [facility] Comment on above: Performed By: #### 2 [id number] #### [facility] [address] [place] [address] Eosinophils (Bld) [#/Vol] 0.2 E9/L Normal 0.0-0.[address] [facility] Comment on above: Performed By: #### 2 [id number] #### [facility] [address] [place] [address] Eosinophils/100 WBC (Bld) 2.6 % Normal 0.0-8.[address] [facility] Comment on above: Performed By: #### 2 [id number] #### [facility] [address] [place] [address] Erythrocyte distribution width (RBC) [Ratio] 19.9 % High 10.9-14.[address] [facility] Comment on above: Performed By: #### 2 [id number] #### [facility] [address] [place] [address] Hematocrit (Bld) [Volume fraction] 34.6 % Low 37.7-49.[address] [facility] Comment on above: Performed By: #### 2 [id number] #### [facility] [address] [place] [address] Hemoglobin (Bld) [Mass/Vol] 11.1 g/dL Low 13.5-17.[address] [facility] Comment on above: Performed By: #### 2 [id number] #### [facility] [address] [place] [address] Hypochromia Auto Ql (Bld) PRESENT Invalid Interpretation Code [facility] Comment on above: Performed By: #### 2 [id number] #### [facility] [address] [place] [address] Lymphocytes (Bld) [#/Vol] 1.2 E9/L Normal 1.0-4.[address] [facility] Comment on above: Performed By: #### 2 [id number] #### [facility] [address] [place] [address] Lymphocytes/100 WBC (Bld) 12.8 % Low 14.0-50.[address] [facility] Comment on above: Performed By: #### 2 187007 #### [facility] [address] [place] [address] MCH (RBC) [Entitic mass] 23.6 pg Low 27.0-34.[address] [facility] Comment on above: Performed By: #### 2 [id number] #### [facility] [address] [place] [address] MCHC (RBC) [Mass/Vol] 32.2 g/dL Normal 31.4-36.[address] [facility] Comment on above: Performed By: #### 2 [id number] #### [facility] [address] [place] [address] MCV (RBC) [Entitic vol] 73.3 fL Low 80.0-100.[address] [facility] Comment on above: Performed By: #### 2 [id number] #### [facility] [address] [place] [address] Microcytes Ql (Bld) PRESENT Invalid Interpretation Code [facility] Comment on above: Performed By: #### 2 [id number] #### [facility] [address] [place] [address] Monocytes (Bld) [#/Vol] 0.8 E9/L Normal 0.2-1.[address] [facility] Comment on above: Performed By: #### 2 555872 #### [facility] [address] [place] [address] Neutrophils (Bld) [#/Vol] 6.9 E9/L Normal 2.0-7.[address] [facility] Comment on above: Performed By: #### 2 578016 #### [facility] [address] [place] [address] Neutrophils/100 WBC (Bld) 75.1 % High 36.0-75.[address] [facility] Comment on above: Performed By: #### 2 [id number] #### [facility] [address] [place] [address] Ovalocytes LM Ql (Bld) PRESENT Invalid Interpretation Code [facility] Comment on above: Performed By: #### 2 [id number] #### [facility] [address] [place] [address] Platelet 139.0 E9/L Low 150.0-500.[address] [facility] Comment on above: Performed By: #### 2 193703 #### [facility] [address] [place] [address] Platelet mean volume (Bld) [Entitic vol] 9.0 fL Normal 6.4-10.[address] [facility] Comment on above: Performed By: #### 2 [id number] #### [facility] [address] [place] [address] RBC (Bld) [#/Vol] 4.7 E12/L Normal 4.3-5.[address] [facility] Comment on above: Performed By: #### 2 998108 #### [facility] [address] [place] [address] RBC size Nom (Bld) SEE MORPHOLOGY Invalid Interpretation Code [facility] Comment on above: Performed By: #### 2 [id number] #### [facility] [address] [place] [address] WBC corrected for nucl RBC Auto (Bld) [#/Vol] 9.2 E9/L Normal 4.0-11.[address] [facility] Comment on above: Performed By: #### 2 [id number] #### [facility] [address] [place] [address] CHEMISTRYOrdered By: SYSTEM SYSTEM on 01-26-2024 Anion gap [Moles/Vol] 9 mmol/L Normal 6 - 16 mEq/L [facility] Calcium [Mass/Vol] 8.7 mg/dL Low 8.9 - 11.1 mg/dL [facility] Chloride [Moles/Vol] 103 mmol/L Normal 101 - 111 mmol/L [facility] CO2 [Moles/Vol] 35 mmol/L High 21 - 31 mmol/L Remis ol Chem Creatinine [Mass/Vol] 1.7 mg/dL High 0.5 - 1.3 mg/dL [facility] eGFR 38 mL/min/1.73 m2 Low >=59mL/min /1.73 m2 [facility] Glucose [Mass/Vol] 99 mg/dL Normal 55 - 199 mg/dL Re misol Chem Potassium [Moles/Vol] 3.6 mmol/L Normal 3.5 - 5.3 mmol/L [facility] Sodium [Moles/Vol] 143 mmol/L Normal 135 - 145 mmol/L [facility] Urea nitrogen [Mass/Vol] 21 mg/dL Normal 5 - 21 mg/dL [facility] Urea nitrogen/Creatinine [Mass ratio] 12 mg/mg Normal 10 - 20 [facility] HEMATOLOGYOrdered By: SYSTEM SYSTEM on 01-26-2024 Basophils/100 WBC (Bld) 0.5 % Normal 0.0 - 2.0 % [facility] Basophils/Leukocyte s Auto (Bld) [Pure # fraction] 0.0 E9/L Normal 0.0 - 0.2 E9/L [facility] Eosinophils (Bld) [#/Vol] 0.2 E9/L Normal 0.0 - 0.5 E9/L [facility] Eosinophils/100 WBC (Bld) 2.6 % Normal 0.0 - 8.0 % [facility] Erythrocyte distribution width (RBC) [Ratio] 19.9 % High 10.9 - 14.2 % [facility] Hematocrit (Bld) [Volume fraction] 34.6 % Low 37.7 - 49.0 % [facility] Hemoglobin (Bld) [Mass/Vol] 11.1 g/dL Low 13.5 - 17.5 gm/dL [facility] Hypochromia Auto Ql (Bld) PRESENT *NA* (01/26/24 6:09 AM) Invalid Interpretation Code [facility] Lymphocytes (Bld) [#/Vol] 1.2 E9/L Normal 1.0 - 4.0 E9/L [facility] Lymphocytes/100 WBC (Bld) 12.8 % Low 14.0 - 50.0 % [facility] MCH (RBC) [Entitic mass] 23.6 pg Low 27.0 - 34.0 pg [facility] MCHC (RBC) [Mass/Vol] 32.2 g/dL Normal 31.4 - 36.0 gm/dL [facility] MCV (RBC) [Entitic vol] 73.3 fL Low 80.0 - 100.0 fL [facility] Microcytes Ql (Bld) PRESENT *NA* (01/26/24 6:09 AM) Invalid Interpretation Code [facility] Monocytes (Bld) [#/Vol] 0.8 E9/L Normal 0.2 - 1.0 E9/L [facility] Monocytes/100 WBC (Bld) 9.0 % Normal 4.0 - 14.0 % [facility] Neutrophils (Bld) [#/Vol] 6.9 E9/L Normal 2.0 - 7.5 E9/L [facility] Neutrophils/100 WBC (Bld) 75.1 % High 36.0 - 75.0 % [facility] Ovalocytes LM Ql (Bld) PRESENT *NA* (01/26/24 6:09 AM) Invalid Interpretation Code [facility] Platelet 139.0 E9/L Low 150.0 - 500.0 E9/L [facility] Platelet mean volume (Bld) [Entitic vol] 9.0 fL Normal 6.4 - 10.8 fL [facility] RBC (Bld) [#/Vol] 4.7 E12/L Normal 4.3 - 5.9 E12/L Re misol Heme RBC size Nom (Bld) SEE MORPHOLOGY *NA* (01/26/24 6:09 AM) Invalid Interpretation Code [facility] WBC corrected for nucl RBC Auto (Bld) [#/Vol] 9.2 E9/L Normal 4.0 - 11.0 E9/L [facility] Interdisciplinary Note - Ron e Manageron 01-26-2024 Interdisciplinary Note - Statement Processor Interdisciplinary Note - Statement Processor CRM to room 324 Patient is awake , alert and oriented to CRM questions. Patient is from [facility]. Patient says they usually provide him transport. Patient verified info with CRM such as insurance and PCP. Patient came in as inpatient, IMM completed on 104, this gets reviewed. Patient is here for A Fib with RVR. Patient has been changed to oral meds. He is assigned to Dr Siegel, see notes. Patient has cardiology on case. PT/OT cleared for no needs. Patient will be on Eliquis at DC. Patient is a possible DC today. Patient was provided CRM contact, stacey board updated. CRM following CRM called daughter Michelle and left a VM at [phone] Caden Evans will need called to inform of DC at [phone] Per them they can assist with transport if its before 3 and available otherwise the daughter assist Normal [facility] Comment on above: Result Comment: Elec tronically Signed By: Natalya Rivas\.br\Date and Time Signed: 01/26/24 13:09 EDT eGFRon 01-26-2024 eGFR 38 mL/min/1.73 m2 Low >=[address] [facility] Comment on above: Performed By: #### 1 [id number] #### [facility] [address] [place] [address] BMPon 01-25-2024 Anion gap [Moles/Vol] 10 mmol/L Normal 6-[address] [facility] Comment on above: Order Comment: draw at 730 with scheduled PTT heb 01/25/2024 04:30:58 EDT Performed By: #### 2 [id number] #### [facility] [address] [place] [address] Calcium [Mass/Vol] 8.3 mg/dL Low 8.9-11.[address] [facility] Comment on above: Order Comment: draw at 730 with scheduled PTT heb 01/25/2024 04:30:58 EDT Performed By: #### 2 [id number] #### [facility] [address] [place] [address] Chloride [Moles/Vol] 104 mmol/L Normal 101-[address] [facility] Comment on above: Order Comment: draw at 730 with scheduled PTT heb 01/25/2024 04:30:58 EDT Performed By: #### 2 [id number] #### [facility] [address] [place] [address] CO2 [Moles/Vol] 33 mmol/L High 21-[address] [facility] Comment on above: Order Comment: draw at 730 with scheduled PTT heb 01/25/2024 04:30:58 EDT Performed By: #### 2 [id number] #### [facility] [address] [place] [address] Creatinine [Mass/Vol] 1.8 mg/dL High 0.5-1.[address] [facility] Comment on above: Order Comment: draw at 730 with scheduled PTT heb 01/25/2024 04:30:58 EDT Performed By: #### 2 [id number] #### [facility] [address] [place] [address] Glucose [Mass/Vol] 95 mg/dL Normal 55-[address] [facility] Comment on above: Order Comment: draw at 730 with scheduled PTT heb 01/25/2024 04:30:58 EDT Performed By: #### 2 [id number] #### [facility] [address] [place] [address] Potassium [Moles/Vol] 4.0 mmol/L Normal 3.5-5.[address] [facility] Comment on above: Order Comment: draw at 730 with scheduled PTT heb 01/25/2024 04:30:58 EDT Performed By: #### 2 [id number] #### [facility] [address] [place] [address] Sodium [Moles/Vol] 143 mmol/L Normal 135-[address] [facility] Comment on above: Order Comment: draw at 730 with scheduled PTT heb 01/25/2024 04:30:58 EDT Performed By: #### 2 [id number] #### [facility] [address] [place] [address] Urea nitrogen [Mass/Vol] 23 mg/dL High 5-[address] [facility] Comment on above: Order Comment: draw at 730 with scheduled PTT heb 01/25/2024 04:30:58 EDT Performed By: #### 2 [id number] #### [facility] [address] [place] [address] Urea nitrogen/Creatinine [Mass ratio] 13 No Units Normal 10-[address] [facility] Comment on above: Order Comment: draw at 730 with scheduled PTT heb 01/25/2024 04:30:58 EDT Performed By: #### 2 [id number] #### [facility] [address] [place] [address] CBC w/ Auto Diffon 4 Basophils/100 WBC (Bld) 0.6 % Normal 0.0-2.[address] [facility] Comment on above: Order Comment: draw at 730 with scheduled PTT heb 01/25/2024 04:30:58 EDT Performed By: #### 2 [id number] #### [facility] [address] [place] [address] Basophils/Leukocyte s Auto (Bld) [Pure # fraction] 0.0 E9/L Normal 0.0-0.[address] [facility] Comment on above: Order Comment: draw at 730 with scheduled PTT heb 01/25/2024 04:30:58 EDT Performed By: #### 2 [id number] #### [facility] [address] [place] [address] Eosinophils (Bld) [#/Vol] 0.2 E9/L Normal 0.0-0.[address] [facility] Comment on above: Order Comment: draw at 730 with scheduled PTT heb 01/25/2024 04:30:58 EDT Performed By: #### 2 [id number] #### [facility] [address] [place] [address] Eosinophils/100 WBC (Bld) 2.7 % Normal 0.0-8.[address] [facility] Comment on above: Order Comment: draw at 730 with scheduled PTT heb 01/25/2024 04:30:58 EDT Performed By: #### 2 [id number] #### [facility] [address] [place] [address] Erythrocyte distribution width (RBC) [Ratio] 19.6 % High 10.9-14.[address] [facility] Comment on above: Order Comment: draw at 730 with scheduled PTT heb 01/25/2024 04:30:58 EDT Performed By: #### 2 [id number] #### [facility] [address] [place] [address] Hematocrit (Bld) [Volume fraction] 35.9 % Low 37.7-49.[address] [facility] Comment on above: Order Comment: draw at 730 with scheduled PTT heb 01/25/2024 04:30:58 EDT Performed By: #### 2 [id number] #### [facility] [address] [place] [address] Hemoglobin (Bld) [Mass/Vol] 11.1 g/dL Low 13.5-17.[address] [facility] Comment on above: Order Comment: draw at 730 with scheduled PTT heb 01/25/2024 04:30:58 EDT Performed By: #### 2 [id number] #### [facility] [address] [place] [address] Hypochromia Auto Ql (Bld) PRESENT Invalid Interpretation Code [facility] Comment on above: Order Comment: draw at 730 with scheduled PTT b 01/25/2024 04:30:58 EDT Performed By: #### 2 [id number] #### [facility] [address] [place] [address] Lymphocytes (Bld) [#/Vol] 1.4 E9/L Normal 1.0-4.[address] [facility] Comment on above: Order Comment: draw at 730 with scheduled PTT heb 01/25/2024 04:30:58 EDT Performed By: #### 2 [id number] #### [facility] [address] [place] [address] Lymphocytes/100 WBC (Bld) 16.1 % Normal 14.0-50.[address] [facility] Comment on above: Order Comment: draw at 730 with scheduled PTT heb 01/25/2024 04:30:58 EDT Performed By: #### 2 [id number] #### [facility] [address] [place] [address] MCH (RBC) [Entitic mass] 23.0 pg Low 27.0-34.[address] [facility] Comment on above: Order Comment: draw at 730 with scheduled PTT heb 01/25/2024 04:30:58 EDT Performed By: #### 2 [id number] #### [facility] [address] [place] [address] MCHC (RBC) [Mass/Vol] 30.9 g/dL Low 31.4-36.[address] [facility] Comment on above: Order Comment: draw at 730 with scheduled PTT heb 01/25/2024 04:30:58 EDT Performed By: #### 2 [id number] #### [facility] [address] [place] [address] MCV (RBC) [Entitic vol] 74.4 fL Low 80.0-100.[address] [facility] Comment on above: Order Comment: draw at 730 with scheduled PTT heb 01/25/2024 04:30:58 EDT Performed By: #### 2 [id number] #### [facility] [address] [place] [address] Monocytes (Bld) [#/Vol] 0.9 E9/L Normal 0.2-1.[address] [facility] Comment on above: Order Comment: draw at 730 with scheduled PTT heb 01/25/2024 04:30:58 EDT Performed By: #### 2 [id number] #### [facility] [address] [place] [address] Neutrophils (Bld) [#/Vol] 6.2 E9/L Normal 2.0-7.[address] [facility] Comment on above: Order Comment: draw at 730 with scheduled PTT heb 01/25/2024 04:30:58 EDT Performed By: #### 2 [id number] #### [facility] [address] [place] [address] Neutrophils/100 WBC (Bld) 70.7 % Normal 36.0-75.[address] [facility] Comment on above: Order Comment: draw at 730 with scheduled PTT heb 01/25/2024 04:30:58 EDT Performed By: #### 2 [id number] #### [facility] [address] [place] [address] Ovalocytes LM Ql (Bld) PRESENT Invalid Interpretation Code [facility] Comment on above: Order Comment: draw at 730 with scheduled PTT heb 01/25/2024 04:30:58 EDT Performed By: #### 2 [id number] #### [facility] [address] [place] [address] Platelet mean volume (Bld) [Entitic vol] 10.1 fL Normal 6.4-10.[address] [facility] Comment on above: Order Comment: draw at 730 with scheduled PTT heb 01/25/2024 04:30:58 EDT Performed By: #### 2 [id number] #### [facility] [address] [place] [address] Platelets (Bld) [#/Vol] 138.0 E9/L Low 150.0-500.[address] [facility] Comment on above: Order Comment: draw at 730 with scheduled PTT heb 01/25/2024 04:30:58 EDT Performed By: #### 2 [id number] #### [facility] [address] [place] [address] RBC (Bld) [#/Vol] 4.8 E12/L Normal 4.3-5.[address] [facility] Comment on above: Order Comment: draw at 730 with scheduled PTT heb 01/25/2024 04:30:58 EDT Performed By: #### 2 [id number] #### [facility] [address] [place] [address] RBC size Nom (Bld) SEE MORPHOLOGY Invalid Interpretation Code [facility] Comment on above: Order Comment: draw at 730 with scheduled PTT heb 01/25/2024 04:30:58 EDT Performed By: #### 2 [id number] #### [facility] [address] [place] [address] WBC corrected for nucl RBC Auto (Bld) [#/Vol] 8.8 E9/L Normal 4.0-11.[address] [facility] Comment on above: Order Comment: draw at 730 with scheduled PTT heb 01/25/2024 04:30:58 EDT Performed By: #### 2 [id number] #### [facility] [address] [place] [address] CHEMISTRYOrdered By: SYSTEM SYSTEM on 01-25-2024 Anion gap [Moles/Vol] 10 mmol/L Normal 6 - 16 mEq/L [facility] Calcium [Mass/Vol] 8.3 mg/dL Low 8.9 - 11.1 mg/dL [facility] Chloride [Moles/Vol] 104 mmol/L Normal 101 - 111 mmol/L [facility] Chem CO2 [Moles/Vol] 33 mmol/L High 21 - 31 mmol/L Remis ol Chem Creatinine [Mass/Vol] 1.8 mg/dL High 0.5 - 1.3 mg/dL [facility] Chem eGFR 36 mL/min/1.73 m2 Low >=59mL/min /1.73 m2 [facility] Glucose [Mass/Vol] 95 mg/dL Normal 55 - 199 mg/dL Re misol Chem Potassium [Moles/Vol] 4.0 mmol/L Normal 3.5 - 5.3 mmol/L [facility] Sodium [Moles/Vol] 143 mmol/L Normal 135 - 145 mmol/L [facility] Urea nitrogen [Mass/Vol] 23 mg/dL High 5 - 21 mg/dL [facility] Urea nitrogen/Creatinine [Mass ratio] 13 mg/mg Normal 10 - 20 [facility] COAGULATIONOrdered By: Randy Asif on 01-25-2024 aPTT Coag (PPP) [Time] 111.0 s Invalid Interpretation Code 25.1 - 36.5 second(s) [facility] Comment on above: Result Comment: Resu lts Called To Jacey Nice/Dejuan By MELL And Read Back For Confirmation On 01/25/2024 08:05:26 EDT Results Verified By Repeat Analysis Interpretive Data: P arameter 15 days - 4 weeks 1 - 5 months 6 - 11 months 1 - 5 years 6 - 10 years 11 - 17 years PTT Mean: 35.4 (27.6-45.6) Mean: 33.5 (24.8-40.7) Mean: 32.4 (25.1-40.7) Mean: 31.6 (24.0-39.2) Mean: 31.6 (26.9-38.7) Mean: 31.0 (24.6-38.4) Pediatric Reference ranges were obtained from a study by Jose Antonio Saxena et al. prepared from 1437 samples obtained at 7 different centers using the same coagulation reagent and instrumentation as [facility]. Currently there are no coagulation studies available worldwide for children to 14 days, and no normal ranges. Heparin therapeutic range (represented by Anti-Factor Xa activity of 0.2 - 0.4 U/mL) corresponds to PTT of 56.6 - 109.0 sec. HEMATOLOGYOrdered By: SYSTEM SYSTEM on 01-25-2024 Basophils/100 WBC (Bld) 0.6 % Normal 0.0 - 2.0 % [facility] Basophils/Leukocyte s Auto (Bld) [Pure # fraction] 0.0 E9/L Normal 0.0 - 0.2 E9/L [facility] Eosinophils (Bld) [#/Vol] 0.2 E9/L Normal 0.0 - 0.5 E9/L [facility] Eosinophils/100 WBC (Bld) 2.7 % Normal 0.0 - 8.0 % [facility] Erythrocyte distribution width (RBC) [Ratio] 19.6 % High 10.9 - 14.2 % [facility] Hematocrit (Bld) [Volume fraction] 35.9 % Low 37.7 - 49.0 % [facility] Hemoglobin (Bld) [Mass/Vol] 11.1 g/dL Low 13.5 - 17.5 gm/dL [facility] Hypochromia Auto Ql (Bld) PRESENT *NA* (01/25/24 7:27 AM) Invalid Interpretation Code [facility] Lymphocytes (Bld) [#/Vol] 1.4 E9/L Normal 1.0 - 4.0 E9/L [facility] Lymphocytes/100 WBC (Bld) 16.1 % Normal 14.0 - 50.0 % [facility] MCH (RBC) [Entitic mass] 23.0 pg Low 27.0 - 34.0 pg [facility] MCHC (RBC) [Mass/Vol] 30.9 g/dL Low 31.4 - 36.0 gm/dL [facility] MCV (RBC) [Entitic vol] 74.4 fL Low 80.0 - 100.0 fL [facility] Monocytes (Bld) [#/Vol] 0.9 E9/L Normal 0.2 - 1.0 E9/L [facility] Monocytes/100 WBC (Bld) 9.9 % Normal 4.0 - 14.0 % [facility] Neutrophils (Bld) [#/Vol] 6.2 E9/L Normal 2.0 - 7.5 E9/L [facility] Neutrophils/100 WBC (Bld) 70.7 % Normal 36.0 - 75.0 % [facility] Ovalocytes LM Ql (Bld) PRESENT *NA* (01/25/24 7:27 AM) Invalid Interpretation Code [facility] Platelet mean volume (Bld) [Entitic vol] 10.1 fL Normal 6.4 - 10.8 fL [facility] Platelets (Bld) [#/Vol] 138.0 E9/L Low 150.0 - 500.0 E9/L [facility] RBC (Bld) [#/Vol] 4.8 E12/L Normal 4.3 - 5.9 E12/L Re misol Heme RBC size Nom (Bld) SEE MORPHOLOGY *NA* (01/25/24 7:27 AM) Invalid Interpretation Code [facility] WBC corrected for nucl RBC Auto (Bld) [#/Vol] 8.8 E9/L Normal 4.0 - 11.0 E9/L [facility] PTTon 01-25-2024 aPTT Coag (PPP) [Time] 111.0 second(s) Abnormal 25.1-36.[address] [facility] Comment on above: Result Comment: Resu lts Called To Jacey Nice/Dejuan By MELL And Read Back For Confirmation On 01/25/2024 08:05:26 EDT Results Verified By Repeat Analysis Parameter 15 days - 4 weeks 1 - 5 months 6 - 11 months 1 - 5 years 6 - 10 years 11 - 17 years PTT Mean: 35.4 (27.6-45.6) Mean: 33.5 (24.8-40.7) Mean: 32.4 (25.1-40.7) Mean: 31.6 (24.0-39.2) Mean: 31.6 (26.9-38.7) Mean: 31.0 (24.6-38.4) Pediatric Reference ranges were obtained from a study by so Wetzel al. prepared from 1437 samples obtained at 7 different centers using the same coagulation reagent and instrumentation as [facility]. Currently there are no coagulation studies available worldwide for children to 14 days, and no normal ranges. Heparin therapeutic range (represented by Anti-Factor Xa activity of 0.2 - 0.4 U/mL) corresponds to PTT of 56.6 - 109.0 sec. Performed By: #### 2 [id number] #### [facility] [address] [place] [address] aPTT Coag (PPP) [Time] 193.7 second(s) Abnormal 25.1-36.[address] [facility] Comment on above: Result Comment: Resu lts Called To Genevieve Calle By mildred And Read Back For Confirmation On 01/25/2024 00:15:53 EDT Results Verified By Repeat Analysis Parameter 15 days - 4 weeks 1 - 5 months 6 - 11 months 1 - 5 years 6 - 10 years 11 - 17 years PTT Mean: 35.4 (27.6-45.6) Mean: 33.5 (24.8-40.7) Mean: 32.4 (25.1-40.7) Mean: 31.6 (24.0-39.2) Mean: 31.6 (26.9-38.7) Mean: 31.0 (24.6-38.4) Pediatric Reference ranges were obtained from a study by so Wetzel al. prepared from 1437 samples obtained at 7 different centers using the same coagulation reagent and instrumentation as [facility]. Currently there are no coagulation studies available worldwide for children to 14 days, and no normal ranges. Heparin therapeutic range (represented by Anti-Factor Xa activity of 0.2 - 0.4 U/mL) corresponds to PTT of 56.6 - 109.0 sec. Performed By: #### 2 [id number] #### [facility] [address] [place] [address] eGFRon 01-25-2024 eGFR 36 mL/min/1.73 m2 Low >=[address] [facility] Comment on above: Performed By: #### 1 [id number] #### [facility] [address] [place] [address] BMPon 01-24-2024 Anion gap [Moles/Vol] 9 mmol/L Normal 6-[address] [facility] Comment on above: Performed By: #### 2 [id number] #### [facility] [address] [place] [address] Calcium [Mass/Vol] 7.9 mg/dL Low 8.9-11.[address] [facility] Comment on above: Performed By: #### 2 [id number] #### [facility] [address] [place] [address] Chloride [Moles/Vol] 105 mmol/L Normal 101-[address] [facility] Comment on above: Performed By: #### 2 [id number] #### [facility] [address] [place] [address] CO2 [Moles/Vol] 30 mmol/L Normal 21-[address] [facility] Comment on above: Performed By: #### 2 [id number] #### [facility] [address] [place] [address] Creatinine [Mass/Vol] 1.7 mg/dL High 0.5-1.[address] [facility] Comment on above: Performed By: #### 2 [id number] #### [facility] [address] [place] [address] Glucose [Mass/Vol] 100 mg/dL Normal 55-[address] [facility] Comment on above: Performed By: #### 2 [id number] #### [facility] [address] [place] [address] Potassium [Moles/Vol] 3.7 mmol/L Normal 3.5-5.[address] [facility] Comment on above: Performed By: #### 2 [id number] #### [facility] [address] [place] [address] Sodium [Moles/Vol] 140 mmol/L Normal 135-[address] [facility] Comment on above: Performed By: #### 2 [id number] #### [facility] [address] [place] [address] Urea nitrogen [Mass/Vol] 24 mg/dL High 5-[address] [facility] Comment on above: Performed By: #### 2 [id number] #### [facility] [address] [place] [address] Urea nitrogen/Creatinine [Mass ratio] 14 No Units Normal 10-[address] [facility] Comment on above: Performed By: #### 2 [id number] #### [facility] [address] [place] [address] CBC w/ Auto Diffon 4 Basophils/100 WBC (Bld) 2.2 % High 0.0-2.[address] [facility] Comment on above: Performed By: #### 2 [id number] #### [facility] [address] [place] [address] Basophils/Leukocyte s Auto (Bld) [Pure # fraction] 0.2 E9/L Normal 0.0-0.[address] [facility] Comment on above: Performed By: #### 2 [id number] #### [facility] [address] [place] [address] Eosinophils (Bld) [#/Vol] 0.3 E9/L Normal 0.0-0.[address] [facility] Comment on above: Performed By: #### 2 [id number] #### [facility] [address] [place] [address] Eosinophils/100 WBC (Bld) 3.0 % Normal 0.0-8.[address] [facility] Comment on above: Performed By: #### 2 [id number] #### [facility] [address] [place] [address] Erythrocyte distribution width (RBC) [Ratio] 19.3 % High 10.9-14.[address] [facility] Comment on above: Performed By: #### 2 [id number] #### [facility] [address] [place] [address] Hematocrit (Bld) [Volume fraction] 35.3 % Low 37.7-49.[address] [facility] Comment on above: Performed By: #### 2 [id number] #### [facility] [address] [place] [address] Hemoglobin (Bld) [Mass/Vol] 11.0 g/dL Low 13.5-17.[address] [facility] Comment on above: Performed By: #### 2 [id number] #### [facility] [address] [place] [address] Lymphocytes (Bld) [#/Vol] 1.4 E9/L Normal 1.0-4.[address] [facility] Comment on above: Performed By: #### 2 [id number] #### [facility] [address] [place] [address] Lymphocytes/100 WBC (Bld) 14.1 % Normal 14.0-50.[address] [facility] Comment on above: Performed By: #### 2 950776 #### [facility] [address] [place] [address] MCH (RBC) [Entitic mass] 22.9 pg Low 27.0-34.[address] [facility] Comment on above: Performed By: #### 2 [id number] #### [facility] [address] [place] [address] MCHC (RBC) [Mass/Vol] 31.0 g/dL Low 31.4-36.[address] [facility] Comment on above: Performed By: #### 2 474328 #### [facility] [address] [place] [address] MCV (RBC) [Entitic vol] 73.7 fL Low 80.0-100.[address] [facility] Comment on above: Performed By: #### 2 865963 #### [facility] [address] [place] [address] Microcytes Ql (Bld) PRESENT Invalid Interpretation Code [facility] Comment on above: Performed By: #### 2 [id number] #### [facility] [address] [place] [address] Monocytes (Bld) [#/Vol] 1.0 E9/L Normal 0.2-1.[address] [facility] Comment on above: Performed By: #### 2 [id number] #### [facility] [address] [place] [address] Neutrophils (Bld) [#/Vol] 7.0 E9/L Normal 2.0-7.[address] [facility] Comment on above: Performed By: #### 2 785232 #### [facility] [address] [place] [address] Neutrophils/100 WBC (Bld) 70.9 % Normal 36.0-75.[address] [facility] Comment on above: Performed By: #### 2 [id number] #### [facility] [address] [place] [address] Ovalocytes LM Ql (Bld) PRESENT Invalid Interpretation Code [facility] Comment on above: Performed By: #### 2 [id number] #### [facility] [address] [place] [address] Platelet mean volume (Bld) [Entitic vol] 9.2 fL Normal 6.4-10.[address] [facility] Comment on above: Performed By: #### 2 [id number] #### [facility] [address] [place] [address] Platelets (Bld) [#/Vol] 115.0 E9/L Low 150.0-500.[address] [facility] Comment on above: Performed By: #### 2 [id number] #### [facility] [address] [place] [address] Poikilocytosis Auto Ql (Bld) PRESENT Invalid Interpretation Code [facility] Comment on above: Performed By: #### 2 [id number] #### [facility] [address] [place] [address] RBC (Bld) [#/Vol] 4.8 E12/L Normal 4.3-5.[address] [facility] Comment on above: Performed By: #### 2 [id number] #### [facility] [address] [place] [address] RBC size Nom (Bld) SEE MORPHOLOGY Invalid Interpretation Code [facility] Comment on above: Performed By: #### 2 [id number] #### [facility] [address] [place] [address] WBC corrected for nucl RBC Auto (Bld) [#/Vol] 9.8 E9/L Normal 4.0-11.[address] [facility] Comment on above: Performed By: #### 2 [id number] #### [facility] [address] [place] [address] COAGULATIONOrdered By: Walker Kwan on 01-24-2024 aPTT Coag (PPP) [Time] 193.7 s Invalid Interpretation Code 25.1 - 36.5 second(s) [facility] Comment on above: Result Comment: Resu lts Called To Genevieve Calle By [facility] And Read Back For Confirmation On 01/25/2024 00:15:53 EDT Results Verified By Repeat Analysis Interpretive Data: [place] friedman 15 days - 4 weeks 1 - 5 months 6 - 11 months 1 - 5 years 6 - 10 years 11 - 17 years PTT Mean: 35.4 (27.6-45.6) Mean: 33.5 (24.8-40.7) Mean: 32.4 (25.1-40.7) Mean: 31.6 (24.0-39.2) Mean: 31.6 (26.9-38.7) Mean: 31.0 (24.6-38.4) Pediatric Reference ranges were obtained from a study by Jose Antonio Saxena et al. prepared from 1437 samples obtained at 7 different centers using the same coagulation reagent and instrumentation as [facility]. Currently there are no coagulation studies available worldwide for children to 14 days, and no normal ranges. Heparin therapeutic range (represented by Anti-Factor Xa activity of 0.2 - 0.4 U/mL) corresponds to PTT of 56.6 - 109.0 sec. COAGULATIONOrdered By: Van Waller on 01-24-2024 aPTT Coag (PPP) [Time] 48.6 s High 25.1 - 36.5 second(s) [facility] Comment on above: Interpretive Data: [place] friedman 15 days - 4 weeks 1 - 5 months 6 - 11 months 1 - 5 years 6 - 10 years 11 - 17 years PTT Mean: 35.4 (27.6-45.6) Mean: 33.5 (24.8-40.7) Mean: 32.4 (25.1-40.7) Mean: 31.6 (24.0-39.2) Mean: 31.6 (26.9-38.7) Mean: 31.0 (24.6-38.4) Pediatric Reference ranges were obtained from a study by Jose Antonio Saxena et al. prepared from 1437 samples obtained at 7 different centers using the same coagulation reagent and instrumentation as [facility]. Currently there are no coagulation studies available worldwide for children to 14 days, and no normal ranges. Heparin therapeutic range (represented by Anti-Factor Xa activity of 0.2 - 0.4 U/mL) corresponds to PTT of 56.6 - 109.0 sec. ED Note-Physicianon 01-24-20 ED Note-Physician ED Note-Physician Basic Information Time Seen: Sirisha Stefan 01/23/2024 10:04 Excellent Chief Complaint pt states that he is having numbness and tingling in his upper and lower extremities that started this morning when pt woke up. pt states he was seen by grain loader a few days ago who recommended he receive tx for afib, pt did not want to be seen then History of Present Illness 88-year-old male comes into the ED for evaluation of atrial fibrillation. He has a history of A-fib. He saw his grain loader a couple of days ago was found to be A-fib RVR in the office. They tried to admit him at that time but he declined wish to be discharged home. Per family some medication adjustments were done. He said progressive weakness fatigue prompting him to return to the ED today for evaluation and likely admission. He complains of generalized weakness and paresthesias. He complains of some shortness of breath. No acute chest pain. No fever, chills, nausea or vomiting. Review of Systems A 10 point review of systems is negative except as noted above. Medical and Surgical History: Reviewed and noted Social history: Lives at home Tobacco: Denies Physical Exam Vitals & Measurements T: 36.8 ?C(Oral) HR: 119(Peripheral) RR: 18 BP: 135/109 SpO2: 95% HT: 182 cm WT: 97.1 kg BMI: 29.31 Nurses notes and vital signs reviewed and patient is not hypoxic. General: The patient appears well and in no significant distress Patient is resting comfortably on the exam bed. Skin: Warm, dry, no pallor noted. Head: Atraumatic. Neck: No JVD. Eye: Normal conjunctiva. Ears, Nose, Mouth, and Throat: Moist mucous members. Cardiovascular: Strong distal pulses. Irregular rate. No peripheral edema. Chest wall: Respiratory: Respirations are nonlabored. Back: Normal range of motion, no CVA tenderness. Musculoskeletal: Normal ROM with no gross deformity. Gastrointestinal: Soft and nontender. Urological: Neurological: Awake and alert. No focal deficits. Follows commands. GCS 15. Psychiatric: Cooperative. Medical Decision Making Laboratory studies reviewed and noted. Acute on chronic renal findings. EKG with A-fib RVR. Chest x-ray of no acute infiltrates. Patient's recent cardiology notes are reviewed. They tried to admit him a couple of days ago for his A-fib but he declined. As a compromise they tried to orally load him with amiodarone. This was unsuccessful as he presents today with worsening weakness fatigue and A-fib. We have started on IV amiodarone, and case discussed the hospitalist for admission. Critical Care Time: 40 minutes, critical care time is separate from any procedures that are performed. The following was considered in the determination of critical care but not limited to the level medical decision-making, intensive cardiac and/or respiratory monitor, frequent vital sign monitoring, evaluation of laboratory studies, evaluation of a radiographic studies, oxygen monitoring and constant monitoring. Assessment/Plan 1. Atrial fibrillation with RVR (I48.91: Unspecified atrial fibrillation) Orders: Basic Metabolic Panel CBC w/ Auto Diff ECG 12 Lead Adult ED Cardiac Monitoring eGFR Extra SST Tube Oxygen Saturation Oxygen Therapy PT & PTT Saline Lock Insert Troponin 0 Hr. Troponin 1 Hr. XR Chest Single View Disposition Plan Patient Discharge Condition Disposition: Admitted to the hospital Condition: Improved and stable Counseled: Patient and/or family were counseled to workup, results, treatment plan and follow-up recommendations Discharge Prescription List Prescriptions No active prescription medications Follow-up No qualifying data available Attestation I performed a substantive part of the MDM during the patient?s E/M visit. I personally made or approved the documented management plan and acknowledge its risk of complications. (Independent Interpretation) My (EKG/X-Ray/US/CT) interpretation as above. (Discussion) Management/test interpretation discussed with APC. This report was transcribed using voice recognition software. Every effort was made to ensure accuracy, however, inadvertently computerized online marketing specialist mistakes may be present. Appropriate healthcare PPE was used in evaluating this patient. Problem List/Past Medical History Ongoing Alzheimer's disease, unspecified Anemia BMI 30.0-30.9,adult Carotid stenosis, bilateral Chronic obstructive pulmonary disease (COPD) Chronic respiratory failure with hypoxia Coronary artery disease Dementia in other diseases classified elsewhere, unspecified severity, without behavioral disturbance, psychotic disturbance, mood disturbance, and anxiety DANIEL (generalized anxiety disorder) Gait disorder Hyperlipidemia IFG (impaired fasting glucose) Loose stools Mild pulmonary hypertension Muscle weakness Neuropathy half-way resident Obesity due to excess calories Overweight Pacemaker Paroxysmal atrial fibrillation Perip (more content not included)... Normal [facility] Comment on above: Result Comment: Elec tronically Signed By: Willian Monroe PA-C\.br\Date and Time Signed: 01/23/24 11:15 EDT\.br\Electronically Co-Signed By: Stefan Grimm DO\.br\Date and Time Co-Signed: 01/24/24 07:13 EDT Extra [place] 01-24-2024 WB Tube Collected Yes Invalid Interpretation Code [facility] Comment on above: Performed By: #### 1 [id number] #### [facility] [address] [place] [address] HEMATOLOGYOrdered By: SYSTEM SYSTEM on 01-24-2024 Microcytes Ql (Bld) PRESENT *NA* (01/24/24 6:00 AM) Invalid Interpretation Code Remisol Heme Ovalocytes LM Ql (Bld) PRESENT *NA* (01/24/24 6:00 AM) Invalid Interpretation Code Remisol Heme Poikilocytosis Auto Ql (Bld) PRESENT *NA* (01/24/24 6:00 AM) Invalid Interpretation Code Remisol Heme Interdisciplinary Note - Maggie n 01-24-2024 Interdisciplinary Note - OT Interdisciplinary Note - OT OT ampa six clicks score = no further inpatient OT needs. Pt is Ind w/ basic adls after set up, Dist sup w/ transfers w/ [facility]. Pt has assist w/ all Iadls at [facility]. DC inpatient OT services, patient is in agreement. Normal [facility] PTTon 01-24-2024 aPTT Coag (PPP) [Time] 48.6 second(s) High 25.1-36.[address] [facility] Comment on above: Result Comment: Para meter 15 days - 4 weeks 1 - 5 months 6 - 11 months 1 - 5 years 6 - 10 years 11 - 17 years PTT Mean: 35.4 (27.6-45.6) Mean: 33.5 (24.8-40.7) Mean: 32.4 (25.1-40.7) Mean: 31.6 (24.0-39.2) Mean: 31.6 (26.9-38.7) Mean: 31.0 (24.6-38.4) Pediatric Reference ranges were obtained from a study by Jose Antonio Saxena et al. prepared from 1437 samples obtained at 7 different centers using the same coagulation reagent and instrumentation as [facility]. Currently there are no coagulation studies available worldwide for children to 14 days, and no normal ranges. Heparin therapeutic range (represented by Anti-Factor Xa activity of 0.2 - 0.4 U/mL) corresponds to PTT of 56.6 - 109.0 sec. Performed By: #### 2 [id number] #### [facility] [address] [place] [address] aPTT Coag (PPP) [Time] 88.5 second(s) Abnormal 25.1-36.[address] [facility] Comment on above: Result Comment: Resu lts Called To Jacey Nice By [email or web address] And Read Back For Confirmation On 01/24/2024 10:28:11 EDT Results Verified By Repeat Analysis Parameter 15 days - 4 weeks 1 - 5 months 6 - 11 months 1 - 5 years 6 - 10 years 11 - 17 years PTT Mean: 35.4 (27.6-45.6) Mean: 33.5 (24.8-40.7) Mean: 32.4 (25.1-40.7) Mean: 31.6 (24.0-39.2) Mean: 31.6 (26.9-38.7) Mean: 31.0 (24.6-38.4) Pediatric Reference ranges were obtained from a study by so Wetzel al. prepared from 1437 samples obtained at 7 different centers using the same coagulation reagent and instrumentation as [facility]. Currently there are no coagulation studies available worldwide for children to 14 days, and no normal ranges. Heparin therapeutic range (represented by Anti-Factor Xa activity of 0.2 - 0.4 U/mL) corresponds to PTT of 56.6 - 109.0 sec. Performed By: #### 2 [id number] #### [facility] [address] [place] [address] aPTT Coag (PPP) [Time] 170.1 second(s) Abnormal 25.1-36.[address] [facility] Comment on above: Result Comment: Resu lts Called To Mika Davalos_ By bab And Read Back For Confirmation On 01/24/2024 01:29:31 EDT Results Verified By Repeat Analysis Parameter 15 days - 4 weeks 1 - 5 months 6 - 11 months 1 - 5 years 6 - 10 years 11 - 17 years PTT Mean: 35.4 (27.6-45.6) Mean: 33.5 (24.8-40.7) Mean: 32.4 (25.1-40.7) Mean: 31.6 (24.0-39.2) Mean: 31.6 (26.9-38.7) Mean: 31.0 (24.6-38.4) Pediatric Reference ranges were obtained from a study by so Wetzel al. prepared from 1437 samples obtained at 7 different centers using the same coagulation reagent and instrumentation as [facility]. Currently there are no coagulation studies available worldwide for children to 14 days, and no normal ranges. Heparin therapeutic range (represented by Anti-Factor Xa activity of 0.2 - 0.4 U/mL) corresponds to PTT of 56.6 - 109.0 sec. Performed By: #### 2 [id number] #### [facility] [address] [place] [address] eGFRon 01-24-2024 eGFR 38 mL/min/1.73 m2 Low >=[address] [facility] Comment on above: Performed By: #### 1 [id number] #### [facility] [address] [place] [address] BMPon 01-23-2024 Anion gap [Moles/Vol] 10 mmol/L Normal 6-[address] [facility] Comment on above: Performed By: #### 2 [id number] #### [facility] [address] [place] [address] Calcium [Mass/Vol] 8.5 mg/dL Low 8.9-11.[address] [facility] Comment on above: Performed By: #### 2 [id number] #### [facility] [address] [place] [address] Chloride [Moles/Vol] 105 mmol/L Normal 101-[address] [facility] Comment on above: Performed By: #### 2 [id number] #### [facility] [address] [place] [address] CO2 [Moles/Vol] 32 mmol/L High 21-[address] [facility] Comment on above: Performed By: #### 2 [id number] #### [facility] [address] [place] [address] Creatinine [Mass/Vol] 2.0 mg/dL High 0.5-1.[address] [facility] Comment on above: Performed By: #### 2 [id number] #### [facility] [address] [place] [address] Glucose [Mass/Vol] 88 mg/dL Normal 55-[address] [facility] Comment on above: Performed By: #### 2 [id number] #### [facility] [address] [place] [address] Potassium [Moles/Vol] 3.8 mmol/L Normal 3.5-5.[address] [facility] Comment on above: Performed By: #### 2 [id number] #### [facility] [address] [place] [address] Sodium [Moles/Vol] 143 mmol/L Normal 135-[address] [facility] Comment on above: Performed By: #### 2 [id number] #### [facility] [address] [place] [address] Urea nitrogen [Mass/Vol] 28 mg/dL High 5-[address] [facility] Comment on above: Performed By: #### 2 [id number] #### [facility] [address] [place] [address] Urea nitrogen/Creatinine [Mass ratio] 14 No Units Normal 10-[address] [facility] Comment on above: Performed By: #### 2 [id number] #### [facility] [address] [place] [address] BNPon 01-23-2024 Natriuretic peptide B (Bld) [Mass/Vol] 108 pg/mL High 5-[address] [facility] Comment on above: Performed By: #### 1 [id number] #### [facility] [address] [place] [address] CBC w/ Auto Diffon 4 Basophils/100 WBC (Bld) 0.2 % Normal 0.0-2.[address] [facility] Comment on above: Performed By: #### 2 [id number] #### [facility] [address] [place] [address] Basophils/Leukocyte s Auto (Bld) [Pure # fraction] 0.0 E9/L Normal 0.0-0.[address] [facility] Comment on above: Performed By: #### 2 [id number] #### [facility] [address] [place] [address] Eosinophils (Bld) [#/Vol] 0.2 E9/L Normal 0.0-0.[address] [facility] Comment on above: Performed By: #### 2 [id number] #### [facility] [address] [place] [address] Eosinophils/100 WBC (Bld) 1.6 % Normal 0.0-8.[address] [facility] Comment on above: Performed By: #### 2 [id number] #### [facility] [address] [place] [address] Erythrocyte distribution width (RBC) [Ratio] 19.8 % High 10.9-14.[address] [facility] Comment on above: Performed By: #### 2 [id number] #### [facility] [address] [place] [address] Hematocrit (Bld) [Volume fraction] 39.5 % Normal 37.7-49.[address] [facility] Comment on above: Performed By: #### 2 [id number] #### [facility] [address] [place] [address] Hemoglobin (Bld) [Mass/Vol] 12.4 g/dL Low 13.5-17.[address] [facility] Comment on above: Performed By: #### 2 [id number] #### [facility] [address] [place] [address] Lymphocytes (Bld) [#/Vol] 1.3 E9/L Normal 1.0-4.[address] [facility] Comment on above: Performed By: #### 2 [id number] #### [facility] [address] [place] [address] Lymphocytes/100 WBC (Bld) 10.4 % Low 14.0-50.[address] [facility] Comment on above: Performed By: #### 2 [id number] #### [facility] [address] [place] [address] MCH (RBC) [Entitic mass] 23.1 pg Low 27.0-34.[address] [facility] Comment on above: Performed By: #### 2 [id number] #### [facility] [address] [place] [address] MCHC (RBC) [Mass/Vol] 31.3 g/dL Low 31.4-36.[address] [facility] Comment on above: Performed By: #### 2 [id number] #### [facility] [address] [place] [address] MCV (RBC) [Entitic vol] 73.7 fL Low 80.0-100.[address] [facility] Comment on above: Performed By: #### 2 [id number] #### [facility] [address] [place] [address] Monocytes (Bld) [#/Vol] 1.2 E9/L High 0.2-1.[address] [facility] Comment on above: Performed By: #### 2 [id number] #### [facility] [address] [place] [address] Neutrophils (Bld) [#/Vol] 10.0 E9/L High 2.0-7.[address] [facility] Comment on above: Performed By: #### 2 [id number] #### [facility] [address] [place] [address] Neutrophils/100 WBC (Bld) 78.1 % High 36.0-75.[address] [facility] Comment on above: Performed By: #### 2 [id number] #### [facility] [address] [place] [address] Ovalocytes LM Ql (Bld) PRESENT Invalid Interpretation Code [facility] Comment on above: Performed By: #### 2 [id number] #### [facility] [address] [place] [address] Platelet 169.0 E9/L Normal 150.0-500.[address] [facility] Comment on above: Performed By: #### 2 [id number] #### [facility] [address] [place] [address] Platelet mean volume (Bld) [Entitic vol] 10.0 fL Normal 6.4-10.[address] [facility] Comment on above: Performed By: #### 2 [id number] #### [facility] [address] [place] [address] RBC (Bld) [#/Vol] 5.4 E12/L Normal 4.3-5.[address] [facility] Comment on above: Performed By: #### 2 [id number] #### [facility] [address] [place] [address] RBC size Nom (Bld) SEE MORPHOLOGY Invalid Interpretation Code [facility] Comment on above: Performed By: #### 2 [id number] #### [facility] [address] [place] [address] WBC corrected for nucl RBC Auto (Bld) [#/Vol] 12.8 E9/L High 4.0-11.[address] [facility] Comment on above: Performed By: #### 2 [id number] #### [facility] [address] [place] [address] CHEMISTRYOrdered By: Pallavi Baugh on 01-23-2024 Natriuretic peptide B (Bld) [Mass/Vol] 108 pg/mL High 5 - 80 pg/mL [facility] [place] CHEMISTRYOrdered By: SYSTEM SYSTEM on 01-23-2024 Troponin HS 23.90 pg/mL Normal 15.90 - 38.40 pg/mL [facility] Comment on above: Interpretive Data: T he 95% CI (Confidence Interval) PPV (Positive Predictive Value) for myocardial infarction in females is 38 pg/mL, in males 51 pg/mL. The results should be used in conjunction with clinical conditions of myocardial infarction. (Access High Sensitivity Troponin I Instructions For Use, [employer], November 2017) Troponin HS 24.10 pg/mL Normal 15.90 - 38.40 pg/mL [facility] Comment on above: Interpretive Data: T he 95% CI (Confidence Interval) PPV (Positive Predictive Value) for myocardial infarction in females is 38 pg/mL, in males 51 pg/mL. The results should be used in conjunction with clinical conditions of myocardial infarction. (Access High Sensitivity Troponin I Instructions For Use, [employer], November 2017) COAGULATIONOrdered By: Santosh Baugh on 01-23-2024 INR Coag (PPP) [Relative time] 1.13 {INR} Invalid Interpretation Code [facility] Comment on above: Interpretive Data: I NR results are specifically intended to assess patients stabilized on long-term Anticoagulation therapy suggested INR s Less Intensive Anticoagulation 2.0 3.0 Conventional Range 3.0 4.5 PT Coag (PPP) [Time] 12.7 s High 9.4 - 12.5 second(s) [facility] Comment on above: Interpretive Data: 1 5 days - 4 weeks 1 - 5 months 6 -11 months 1 5 years 6 10 years 11 -17 years Mean: 11.2 (9.5 12.6) Mean: 11.0 (9.7 12.8) Mean: 11.0 (9.8 13.0) Mean: 11.3 (9.9 13.4) Mean: 11.7 (10.0 14.6) Mean: 11.8 (10.0 - 14.1) Pediatric Reference ranges were obtained from a study by so Wetzel al. prepared from 1437 samples obtained at 7 different centers using the same coagulation reagent and instrumentation as [facility]. Currently there are no coagulation studies available worldwide for children to 14 days, and no normal ranges. INR Coag (PPP) [Relative time] 1.06 {INR} Invalid Interpretation Code [facility] Comment on above: Interpretive Data: I NR results are specifically intended to assess patients stabilized on long-term Anticoagulation therapy suggested INR s Less Intensive Anticoagulation 2.0 3.0 Conventional Range 3.0 4.5 PT Coag (PPP) [Time] 11.9 s Normal 9.4 - 12.5 second(s) [facility] Comment on above: Interpretive Data: 1 5 days - 4 weeks 1 - 5 months 6 -11 months 1 5 years 6 10 years 11 -17 years Mean: 11.2 (9.5 12.6) Mean: 11.0 (9.7 12.8) Mean: 11.0 (9.8 13.0) Mean: 11.3 (9.9 13.4) Mean: 11.7 (10.0 14.6) Mean: 11.8 (10.0 - 14.1) Pediatric Reference ranges were obtained from a study by so Wetzel alSara prepared from 1437 samples obtained at 7 different centers using the same coagulation reagent and instrumentation as [facility]. Currently there are no coagulation studies available worldwide for children to 14 days, and no normal ranges. ED Clinical Summaryon 2023 ED Clinical Summary ED Clinical Summary [address] [address] ED Clinical Summary Person Information [facility]: [facility] Age[facility] 88 Years : 1935 Sex: Male Language: [place] PCP: Nanci Jarvis MD Marital Status: Visit Id: Visit Reason: Tachycardia; Paresthesia; DR TURNER WANTED HIM SEEN FOR AFIB Speciality: Acuity: 2 Enc Type: Inpatient Med Service: Medical Arrival: 01/23/2024 09:59:38 Discharge: LOS: 000 02:47 Checkin: 01/23/2024 09:59:38 Checkout: 01/23/2024 12:46:26 Dispo Type: Admitted as IP to this [facility] EVENTS: Event Name Event Status Request Date/Time Start Date/Time Complete Date/Time Arrive Complete 01/23/2024 09:59:38 01/23/2024 09:59:38 01/23/2024 09:59:38 Document Home Meds Request 01/23/2024 09:59:38 Triage Complete 01/23/2024 09:59:38 01/23/2024 10:10:44 01/23/2024 10:10:44 EKG Complete 01/23/2024 10:02:10 01/23/2024 10:08:54 Pending Labs Complete 01/23/2024 10:02:10 01/23/2024 11:34:31 Lab Complete 01/23/2024 10:02:10 01/23/2024 11:10:48 Patient Care Request 01/23/2024 10:02:10 RT Request 01/23/2024 10:02:10 X-Ray Complete 01/23/2024 10:02:10 01/23/2024 10:04:32 01/23/2024 10:34:14 Registration Complete 01/23/2024 10:03:09 01/23/2024 10:03:09 01/23/2024 10:03:09 Reg Complete Request 01/23/2024 10:03:09 Reg Bed Request Complete 01/23/2024 10:03:09 01/23/2024 10:03:09 01/23/2024 10:03:09 Bed Assign Complete 01/23/2024 10:03:22 01/23/2024 10:03:22 01/23/2024 10:03:22 Dr Exam Complete 01/23/2024 10:03:22 01/23/2024 10:04:41 01/23/2024 10:04:41 RN Exam Complete 01/23/2024 10:03:22 01/23/2024 10:39:42 01/23/2024 10:39:42 Registration Complete 01/23/2024 10:04:41 01/23/2024 11:35:11 01/23/2024 11:54:57 Dr Exam Complete 01/23/2024 10:07:56 01/23/2024 10:07:56 01/23/2024 10:07:56 Pending Labs Complete 01/23/2024 10:16:28 01/23/2024 10:16:28 01/23/2024 10:43:26 Lab Complete 01/23/2024 10:16:28 01/23/2024 10:16:28 01/23/2024 10:43:26 Wet Read Complete 01/23/2024 10:34:14 01/23/2024 10:44:13 01/23/2024 10:44:13 Pending Labs Complete 01/23/2024 10:43:41 01/23/2024 10:43:41 01/23/2024 10:43:41 Consult Request 01/23/2024 11:15:48 Meds Admin Request 01/23/2024 11:15:57 Hospitalist Consult Request 01/23/2024 11:15:57 Admit Request 01/23/2024 11:35:10 Patient Care Request 01/23/2024 11:35:10 Patient Care Request 01/23/2024 11:35:12 Patient Care Request 01/23/2024 11:35:12 Patient Care Request 01/23/2024 11:35:12 Patient Care Request 01/23/2024 11:35:12 Medicare Form Complete 01/23/2024 11:35:13 01/23/2024 11:55:05 Patient Care Request 01/23/2024 11:35:14 Patient Care Request 01/23/2024 11:35:14 Consult Request 01/23/2024 11:41:50 Inpatient Bed Ready Complete 01/23/2024 12:46:26 01/23/2024 12:46:26 01/23/2024 12:46:26 ADDRESS: [address] [place] [id number] [facility] DOC NOTES: MEDICAL INFORMATION: Prescriptions Given: Medications to Continue with No Changes Other Medications albuterol albuterol sulfate 90mcg/actuation aerosol powder - 2 puffs Q6hrs prn. albuterol-ipratropium 3 ml inhale q6h PRN SOB. amiodarone (amiodarone 200 mg Tab) 1 Tablets By Mouth As Directed. Patient to take 2 tablets twice daily x 7 days. Then patient can take 1 tablet twice daily x 7 days. And patient can take 1 tab daily ongoing from that.. Refills: 0. aspirin (Aspirin Low Dose 81 mg oral tablet, chewable) 30 tab(s), 0 Refill(s). atorvastatin (atorvastatin 40 mg Tab) 1 Tablets By Mouth every day. Refills: 5. cholecalciferol (Vitamin D3 2000 intl units oral Tab) 50 Microgram By Mouth every day. donepezil (donepezil 10 mg Tab) 1 Tablets By Mouth once a day (at bedtime). ezetimibe (ezetimibe 10 mg Tab) 1 Tablets By Mouth every day. fenofibrate (fenofibrate 54 mg oral tablet) 1 Tablets By Mouth every day. fexofenadine (Johanna) furosemide (furosemide 20 mg Tab) 1 Tablets By Mouth every day as needed Edema. memantine (memantine 10 mg Tab) 30 tab(s), 0 Refill(s). metoprolol (metoprolol succinate 100 mg ER Tab) 1 Tablets By Mouth 2 times a day. [facility] Prescription (Adult nebulizer with mask and tubing) Adult nebulizer with mask and tubing, uses q4h prn. Refills: 0. nicotine (nicotine 21 mg/24 hr Transderm ER Film) 1 Patches Topical every day. Refills: 0. nitroglycerin (nitroglycerin 0.4 mg sublingual Tab) 1 Tablets Sublingual every 5 minutes as needed for chest pain. pantoprazole (Pantoprazole [address] Tab) 1 Tablets By Mouth 2 times a day. Refills: 5. predniSONE (predniSONE 20 mg Tab) TAKE 1 TABLET BY MOUTH TWICE A DAY FOR 5 DAYS. psyllium (Metamucil) PATIENT EDUCATION INFORMATION: Instructions: Follow up: DIAGNOSIS: 1:Atrial fibrillation with RVR Normal [facility] ED Note-Nursingon 01-23-2024 ED Note-Nursing ED Note-Nursing VENECIA Dorsey at bedside at this time. Pt verbalizes leg numbness/tingling starting this morning. VENECIA Dorsey at bedside assessing pt during this time. Rapid response stroke not called per VENECIA Dorsey [facility] ED Patient Education Noteon 01-23-2024 ED Patient Education Note ED Patient Education Note Normal [facility] ED Patient Summaryon 024 ED Patient Summary ED Patient Summary [place] [id number] Patient Discharge Instructions Person Information Name: THANH COLEMAN Age: 88 Years Arrival Date: 01/23/2024 09:59:38 Discharge Diagnosis: 1:Atrial fibrillation with RVR Primary Care Physician: Nanci Jarvis MD Provider Information Primary Provider: Stefan Grimm DO Advanced Rn Cardiac Cath:Willian Monroe PA-C The exam and treatment you received in the Emergency Department were for an urgent problem and are not intended as complete care. It is important that you follow up with a doctor, nurse practitioner, or physician?s assistant to the director for ongoing care. If your symptoms become [...] opioids can be used to help relieve nvpsoumg-iy-wxpsar pain and are often prescribed following a [...] be struggling with addiction, tell your health manager care management and ask for guidance or call [facility]?S National Helpline at 0-549-045-XHIR. v Source: US Department of Health and Human Services/Center for Disease Control & Prevention [facility] Medications Gi (more content not included)... Normal [facility] Interdisciplinary Note - Ron e Manageron 01-23-2024 Interdisciplinary Note - Statement Processor Interdisciplinary Note - Statement Processor CRM did chart Review Patient is from [facility]. He came in with A FIB. Patient has cardiology and neurology consults. Patient has PT/OT evals pending. If the clear him he can DC back to [facility]. CRM did call [facility] to let them know of admit. There number is [phone]. Patient DC dates TBD. CRM following CRM is back on Friday Normal [facility] Comment on above: Result Comment: Elec tronically Signed By: Natalya Rivas\.br\Date and Time Signed: 01/23/24 15:06 EDT PTon 01-23-2024 INR Coag (PPP) [Relative time] 1.13 {INR} Invalid Interpretation Code [facility] Comment on above: Result Comment: INR results are specifically intended to assess patients stabilized on long-term Anticoagulation therapy suggested INR?s ?Less Intensive Anticoagulation? 2.0 ? 3.0 Conventional Range 3.0 ? 4.5 Performed By: #### 2 [id number] #### [facility] [address] [place] [address] PT Coag (PPP) [Time] 12.7 second(s) High 9.4-12.[address] [facility] Comment on above: Result Comment: 15 d ays - 4 weeks 1 - 5 months 6 -11 months 1 ? 5 years 6 ? 10 years 11 -17 years Mean: 11.2 (9.5 ? 12.6) Mean: 11.0 (9.7 ? 12.8) Mean: 11.0 (9.8 ? 13.0) Mean: 11.3 (9.9 ? 13.4) Mean: 11.7 (10.0 ? 14.6) Mean: 11.8 (10.0 - 14.1) Pediatric Reference ranges were obtained from a study by so Wetzel al. prepared from 1437 samples obtained at 7 different centers using the same coagulation reagent and instrumentation as [facility]. Currently there are no coagulation studies available worldwide for children to 14 days, and no normal ranges. Performed By: #### 2 [id number] #### [facility] [address] [place] [address] PT & PTTon 01-23-2024 aPTT Coag (PPP) [Time] 32.1 second(s) Normal 25.1-36.[address] [facility] Comment on above: Result Comment: Para meter 15 days - 4 weeks 1 - 5 months 6 - 11 months 1 - 5 years 6 - 10 years 11 - 17 years PTT Mean: 35.4 (27.6-45.6) Mean: 33.5 (24.8-40.7) Mean: 32.4 (25.1-40.7) Mean: 31.6 (24.0-39.2) Mean: 31.6 (26.9-38.7) Mean: 31.0 (24.6-38.4) Pediatric Reference ranges were obtained from a study by Jose Antonio Saxena et al. prepared from 1437 samples obtained at 7 different centers using the same coagulation reagent and instrumentation as [facility]. Currently there are no coagulation studies available worldwide for children to 14 days, and no normal ranges. Heparin therapeutic range (represented by Anti-Factor Xa activity of 0.2 - 0.4 U/mL) corresponds to PTT of 56.6 - 109.0 sec. Performed By: #### 1 [id number] #### [facility] [address] [place] [address] INR Coag (PPP) [Relative time] 1.06 {INR} Invalid Interpretation Code [facility] Comment on above: Result Comment: INR results are specifically intended to assess patients stabilized on long-term Anticoagulation therapy suggested INR?s ?Less Intensive Anticoagulation? 2.0 ? 3.0 Conventional Range 3.0 ? 4.5 Performed By: #### 1 [id number] #### [facility] [address] [place] [address] PT Coag (PPP) [Time] 11.9 second(s) Normal 9.4-12.[address] [facility] Comment on above: Result Comment: 15 d ays - 4 weeks 1 - 5 months 6 -11 months 1 ? 5 years 6 ? 10 years 11 -17 years Mean: 11.2 (9.5 ? 12.6) Mean: 11.0 (9.7 ? 12.8) Mean: 11.0 (9.8 ? 13.0) Mean: 11.3 (9.9 ? 13.4) Mean: 11.7 (10.0 ? 14.6) Mean: 11.8 (10.0 - 14.1) Pediatric Reference ranges were obtained from a study by so Wetzel al. prepared from 1437 samples obtained at 7 different centers using the same coagulation reagent and instrumentation as [facility]. Currently there are no coagulation studies available worldwide for children to 14 days, and no normal ranges. Performed By: #### 1 [id number] #### [facility] [address] [place] [address] PTTon 01-23-2024 aPTT Coag (PPP) [Time] 31.1 second(s) Normal 25.1-36.[address] [facility] Comment on above: Result Comment: Para meter 15 days - 4 weeks 1 - 5 months 6 - 11 months 1 - 5 years 6 - 10 years 11 - 17 years PTT Mean: 35.4 (27.6-45.6) Mean: 33.5 (24.8-40.7) Mean: 32.4 (25.1-40.7) Mean: 31.6 (24.0-39.2) Mean: 31.6 (26.9-38.7) Mean: 31.0 (24.6-38.4) Pediatric Reference ranges were obtained from a study by so Wetzel alSara prepared from 1437 samples obtained at 7 different centers using the same coagulation reagent and instrumentation as [facility]. Currently there are no coagulation studies available worldwide for children to 14 days, and no normal ranges. Heparin therapeutic range (represented by Anti-Factor Xa activity of 0.2 - 0.4 U/mL) corresponds to PTT of 56.6 - 109.0 sec. Performed By: #### 2 [id number] #### [facility] [address] [place] [address] Troponin 0 Hr.on 01-23-2024 Troponin HS 24.10 pg/mL Normal 15.90-38.[address] [facility] Comment on above: Result Comment: The 95% CI (Confidence Interval) PPV (Positive Predictive Value) for myocardial infarction in females is 38 pg/mL, in males 51 pg/mL. The results should be used in conjunction with clinical conditions of myocardial infarction. (Access High Sensitivity Troponin I Instructions For Use, [employer], November 2017) Performed By: #### 1 [id number] #### [facility] [address] [place] [address] Troponin 1 Hr.on 01-23-2024 Troponin HS 23.90 pg/mL Normal 15.90-38.[address] [facility] Comment on above: Result Comment: The 95% CI (Confidence Interval) PPV (Positive Predictive Value) for myocardial infarction in females is 38 pg/mL, in males 51 pg/mL. The results should be used in conjunction with clinical conditions of myocardial infarction. (Access High Sensitivity Troponin I Instructions For Use, [employer], November 2017) Performed By: #### 1 [id number] #### [facility] [address] [place] [address] XR Chest Single Viewon 01-22 XR Chest Single View Exam Date/Time: 01/23/2024 10:34 EDT Reason for Exam: Chest pain Report IMPRESSION: NO RADIOGRAPHIC EVIDENCE OF ACUTE INTRATHORACIC PROCESS. EXAM: XR Chest Single View History: Chest pain Technique: Portable AP view of the chest. Comparison: 02/15/2023 Findings: Atherosclerotic calcification of the thoracic aorta. Left-sided cardiac pacemaker is present. The cardiomediastinal silhouette is not significantly changed. No pneumothorax, pleural effusion, or consolidation. Hyperinflation of the lungs and increased bronchovascular markings suggesting COPD. No acute osseous abnormality. Ordering Provider: Willian Monroe FINAL REPORT Dictated: 01/23/2024 11:21 am Torrey Kelly DO Signed (Electronic Signature): 01/23/2024 11:21 am Signed by: Torrey Kelly DO Transcribed by: DP Technologist: DPR Technical Comments Radiation Dose: Ka,r in mGy = na DAP = na [facility] eGFRon 01-23-2024 eGFR 31 mL/min/1.73 m2 Low >=[address] [facility] Comment on above: Performed By: #### 1 [id number] #### [facility] [address] [place] [address] Heart and Vascular Office/Cl inic Noteon 01-21-2024 Heart and Vascular Office/Clinic Note Heart and Vascular Office/Clinic Note Chief Complaint Inpatient F/U [facility] History of Present Illness Patient is an 88-year-old male with past medical history for current smoker with 60-brpw-rett history, CKD stage III, COPD, CAD with prior PCI, AAA repair, chronic atrial fibrillation status post pacemaker placement, CVA, bilateral carotid stenosis. Patient comes into the office for follow-up on inpatient stay at [facility].. Patient comes in with his daughter, who provides some of the history today. Patient was initially sent to the ER due to pulse ox being 77%. He is at [facility] and they they want to be sent to him. Patient does admit to having more breathing issues at the time and his breathing overall has gotten better. He was also diagnosed with acute respiratory issues in addition to A-fib with RVR while he was in the hospital. Patient was started on diltiazem and then changed to metoprolol ER while in the hospital. He was discharged on metoprolol ER 100 mg twice daily. EKG in the office shows a heart rate of 128 and patient still in A-fib. Patient is not on anticoagulation for A-fib due to history of GI bleed while he was on Eliquis which led to a hemoglobin of 4.7. He is deemed not a good candidate for anticoagulation since that time. Patient is taking an aspirin 81 mg daily for anticoagulation at this time. Patient was also started on Lasix late in the hospital and continues to take that as he is gone back to assisted living. Patient reports that he is very tired and fatigued all the time right now. He states that he also is getting short of breath with exertion, even mild exertion. However, he states that breathing is better than it was prior to hospitalization he was short of breath with just sitting at that time. Patient states he is not having much if any swelling to his lower extremities and that is also better than when he was at the hospital previously. Patient denies heart palpitations, dizziness/lightheadedne ss, chest pain. NOTE FROM 11/14/2023: At last visit, patient saw Dr. Villeda [...] is following with device clinic here at [facility] and his last check was 10/30/2023. [...] no fever, no chills, no sweats, no weakness. Positive for fatigue Respiratory: yes shortness of breath, no cough Cardiovascular: no chest pain Neuro: no dizziness. no loss of consciousness Physical Exam Vitals & Measurements HR: 112(Peripheral) RR: 20 BP: 130/80 SpO2: 94% HT: 69 in HT: 175 cm WT: 96.0 kg WT: 211.2 lb BMI: 31.35 General: alert, no acute distress Cardiovascular: Tachycardic and irregularly-irregular rate and rhythm, no murmur normal peripheral [...] rest. 2. The patient has dynamic inferior hypoperfusio (more content not included)... [facility] Comment on above: Result Comment: Elec tronically Signed By: Johnny THOMAS, Elijah Ballesteros\.br\Date and Time Signed: 01/21/24 15:11 EDT [facility] [place] 01-19[place]20 [facility] Case Information Case Priority: None Programs: -- Referral Source: Director Of Analytics Referral Reason: Care coordination Case Type: Transition Care Management Risk Score: -- Case Status: Enrolled (January 19, 2024) Date Assigned: January 19, 2024 Assigned By: Sangeeta Thao Date Enrolled: January 19, 2024 Assigned Primary Personnel: Sangeeta Thao Assigned Secondary Personnel: -- Case Physician: Nanci Jarvis MD Problems Ongoing Alzheimer's disease, unspecified Anemia BMI 30.0-30.9,adult Carotid stenosis, bilateral Chronic obstructive pulmonary disease (COPD) Chronic respiratory failure with hypoxia Coronary artery disease Dementia in other diseases classified elsewhere, unspecified severity, without behavioral disturbance, psychotic disturbance, mood disturbance, and anxiety DANIEL (generalized anxiety disorder) Gait disorder Hyperlipidemia IFG (impaired fasting glucose) Loose stools Mild pulmonary hypertension Muscle weakness Neuropathy half-way resident Obesity due to excess calories Overweight Pacemaker Paroxysmal atrial fibrillation Peripheral vascular disease Smoker 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 Home Medications Adult nebulizer with mask and tubing, See Instructions albuterol-ipratropium, See Instructions Johanna atorvastatin 40 mg Tab, 40 mg= [...] 20 mg= 1 tab(s), Oral, Daily, PRN memantine 10 mg Tab Metamucil nicotine 21 mg/24 hr Transderm ER Film, 1 patch(es), Topical, Daily nitroglycerin 0.4 mg sublingual Tab, 0.4 mg= 1 tab(s), SubLingual, q5min, PRN Pantoprazole [address] Tab, 40 mg= 1 tab(s), Oral, BID, 5 refills Vitamin D3 2000 intl units oral Tab, 50 mcg, Oral, Daily Allergies No Known Medication Allergies Social History Alcohol - Denies Alcohol Use, 12/24/2022 Substance Abuse - Denies Substance Abuse, 12/24/2022 Tobacco - High Risk, 02/15/2023 4 or less cigarettes(less than 1/4 pack)/day in last 30 days Tobacco Use:. Never Smokeless Tobacco Use:. Cigarettes, Ready to change: No. Household tobacco concerns: No. Yes, 11/13/2023 Family History Alcoholism: Father. Diabetes mellitus type 2: Father. Screenings and Assessments 01/19/24 09:44:00 Result Name Value Comment Phone Call Monitoring Consent Agreed to continue call Phone Verification Patient Information Full name, street address and date of verified CM Program Enrollment Provides verbal consent for enrollment Goals and Interventions Care Plan Progress Note Admit Date: 01/13/2024 [facility] Date of Discharge: 01/16/2024 Follow-up appointment scheduled? Yes, with Dr. Nanci Jarvis on 01/23/2024 at 4pm Did you understand your discharge instructions? Yes Are you able to follow them? Yes Did you receive new medications? Yes - Prednisone 20mg BID x5 days, Metoprolol Succinate 100mg BID, Furosemide 40mg daily, Albuterol Sulfate 90mcg, two puffs, Q6hrs PRN Have you filled the Rx's? Patient's daughter, Michelle, has filled patient's prescriptions Are you taking them as prescribed? Patient resides at [facility] and has medications administered to him by nursing staff. Are you having difficulty eating or swallowing your pills? Unable to assess. See note below. Are you having any stomach upset, diarrhea or constipation? Unable to assess. See note below. How are you sleeping? Unable to assess. See note below. Are you having any pain? Unable to assess. See note below. Do you have everything you need at home to care for yourself? Patient resides at [facility] and patient's needs are met by staff. Do you have Home Health? No Called patient for initial call for Transitional Care Management Program. Spoke with patient's daughter, Michelle, for initial TCM call. No risk score available to review. Patient admitted to [facility] on 01/13/2024 and discharged to home - [facility] on 01/16/2024. Briefly spoke and confirmed with Ellen [facility] staff, that patient resides permanently at their facility. lElen states patient is doing good this morning with no complaints. Reviewed d/c instructions and dx of acute respiratory failure with hypercapnia, acute respiratory failure with hypoxia, COPD exacerbation, acute on chronic systolic heart failure, A-Fib with RVR, CAD, dementia, hyperlipemia. Unable to reconcile me (more content not included)... [facility] Heart and Vascular Office/Cl inic Noteon 11-14-2023 Heart and Vascular Office/Clinic Note Heart and Vascular Office/Clinic Note Chief Complaint 4 month F/U History of Present Illness Patient is an 88-year-old male with past medical history for current smoker with 96-dlsq-clin history, CKD stage III, COPD, CAD with [...] is following with device clinic here at [facility] and his last check was 10/30/2023. [...] pain (M79.669: Pain (more content not included)... [facility] Comment on above: Result Comment: Elec tronically Signed By: Elijah Turner PA-C\.johana\Date and Time Signed: 11/14/23 14:42 EDT Interdisciplinary Note - Soc patrice Barkley 10-07-2023 Interdisciplinary Note - Hedge Fund Manager Consult received due to patient being in need of transition to a new SNF. At the time of the consult, patient was in a SNF and there would have been a SW/exercise planner there to assist with identifying a new facility for patient, as they would have had to ensure a safe discharge plan. SW will remain available. [facility] Group Home Recordson 09-15 Group Home Records [id number]#1.00TI FF [facility] Group Home Recordson 09-11 Group Home Records [id number]#1.00TI FF [facility] Ambulatory Visit Summaryon 0 09-11-2023 Ambulatory [...] disturbance, psychotic disturbance, mood disturbance, or anxiety half-way resident Encounter for smoking cessation counseling Your [...] Encounter for smoking cessation counseling Pickup at [facility] Unchanged albuterol-ipratropium See instructions 3 ml [...] physician if questions or concerns Pharmacy Information [facility]: [address] [place], [place] [id number] [phone] Allergies No Known Medication Allergies Problems Ongoing [...] stools Mild pulmonary hypertension Muscle weakness Neuropathy half-way resident Genna (more content not included)... [facility] Pre-Visit Planningon 024 Pre-Visit Planning - From: Laurel Patel RN To: Nanci Jarivs MD; Sent: 09/10/2023 14:04:57 EDT Subject: Pre-Visit Planning Due Date/Time: 09/10/2023 14:04:00 EDT Caller Name: THANH COLEMAN; Caller Number: Bartolo , Ks Dr. Jarvis, *Based on your response below, [...] feel free to contact me at extension [phone]. Thank you! KENROY Pierce, RN, CCM, CCDS, CCDS-O From: Nanci Jarvis MD To: Laurel Patel RN; Sent: 09/11/2023 08:30:42 EDT Subject: RE: Pre-Visit Planning Caller Name: THANH COLEMAN; Caller Number: Bartolo , M please add the following to the problem list -Mild pulmonary hypertension Normal [address] [facility] Formson 09-03-2023 Forms [id number]#1.00T IFF [facility] Consultation Noteon 07-15-19 Consultation Note [id number]#1.[address] [facility] Physician Orderon 07-09-2023 Physician Order [id number]#1.00T IFF [facility] Physician Order [id number]#1.[address] [facility] Consent for Treatmenton 06-19 Consent for Treatment [id number]#1.00T IFF [facility] Heart and Vascular Office/Cl inic Noteon [...] placement. The patient was recently admitted to [facility] in [place] after being transferred from [facility] in the [facility] after presenting with new onset left-sided facial droop. Patient was found to have a CVA, and CT of his carotids demonstrated bilateral carotid stenosis of approximately 7 0%. Patient was treated with Eliquis and aspirin and subsequently discharged. He used to live in the [facility] but recently relocated back up to this area to be with his daughters and 4 assisted living. From a cardiac standpoint he denies any chest pain, angina, shortness of breath or dyspnea on exertion over baseline. He is compliant with his medications. He has had no presyncope or syncopal episodes. Patient claims that he had an echocardiogram in [facility] but he does not have that included [...] on 02/20/2023. He is currently in a jail. He is no longer on anticoagulation. Patient [...] of [place] (more content not included)... [facility] Comment on above: Result Comment: Elec tronically Signed By: RONAL PILLAI, Johnny Vega\.johana\Date and Time Signed: 07/07/23 16:28 EDT Physician Orderon 07-07-2023 Physician Order [id number]#1.[address] [facility] Consultation Noteon 07-01-19 Consultation Note [id number]#1.00T IFF [facility] Physician Orderon 06-20-2023 Physician Order [id number]#1.00T IFF [facility] Retail - Clinical Noteon Retail - Clinical Note [id number]#1.00T IFF [facility] Reminderson 05-22-2023 Reminders - From: Stanley Oliveros RN To: Stanley Oliveros RN; Sent: 05/22/2023 13:34:05 EST Show up: 05/22/2023 13:34:00 EST Subject: check transfer status Reminder/Recall Check pt's carelink transfer status and schedule 10/29/[address] [facility] Consent for Treatmenton 04-21 Consent for Treatment [id number]#1.00T IFF [facility] Formson 04-23-2023 Forms [id number]#1.00T IFF [facility] Formson 04-22-2023 Forms [id number]#1.00T IFF [facility] Auto Diffon 04-10-2023 Basophils/100 WBC (Bld) 1.3 % Normal 0.0-2.[address] [facility] Comment on above: Order Comment: Order Added by Discern Expert. Performed By: #### 1 [id number], [id number], [id number] #### [facility] [address] [place] [address] Basophils/Leukocyte s Auto (Bld) [Pure # fraction] 0.1 E9/L Normal 0.0-0.[address] [facility] Comment on above: Order Comment: Order Added by Discern Expert. Performed By: #### 1 [id number], 3153972, [id number] #### [facility] [address] [place] [address] Eosinophils/100 WBC (Bld) 3.5 % Normal 0.0-8.[address] [facility] Comment on above: Order Comment: Order Added by Discern Expert. Performed By: #### 1 8643201, 1118522, [id number] #### [facility] [address] [place] [address] Eosinophils/Leukocy rosanna Auto (Bld) [Pure # fraction] 0.2 E9/L Normal 0.0-0.[address] [facility] Comment on above: Order Comment: Order Added by Discern Expert. Performed By: #### 1 [id number], 7794462, [id number] #### [facility] [address] [place] [address] Lymphocytes/100 WBC (Bld) 26.6 % Normal 14.0-50.[address] [facility] Comment on above: Order Comment: Order Added by Cam Expert. Performed By: #### 1 0687674, 0214096, [id number] #### [facility] [address] [place] [address] Lymphocytes/Leukocy rosanna Auto (Bld) [Pure # fraction] 1.8 E9/L Normal 1.0-4.[address] [facility] Comment on above: Order Comment: Order Added by Cam Expert. Performed By: #### 1 8078958, 5108447, [id number] #### [facility] [address] [place] [address] Monocytes/100 WBC (Bld) 11.1 % Normal 4.0-14.[address] [facility] Comment on above: Order Comment: Order Added by Discern Expert. Performed By: #### 1 0758750, 0861451, [id number] #### [facility] [address] [place] [address] Monocytes/Leukocyte s Auto (Bld) [Pure # fraction] 0.7 E9/L Normal 0.2-1.[address] [facility] Comment on above: Order Comment: Order Added by Cam Expert. Performed By: #### 1 7860157, 6371866, 89538046 #### [facility] [address] [place] [address] Neutrophils/100 WBC (Bld) 57.5 % Normal 36.0-75.[address] [facility] Comment on above: Order Comment: Order Added by Discern Expert. Performed By: #### 1 [id number], 1606374, 16445689 #### [facility] [address] [place] [address] Neutrophils/Leukocy rosanna Auto (Bld) [Pure # fraction] 3.8 E9/L Normal 2.0-7.[address] [facility] Comment on above: Order Comment: Order Added by Discern Expert. Performed By: #### 1 2373606, 6987304, 52699125 #### [facility] [address] [place] [address] CBC w/ Auto Diffon 3 Erythrocyte distribution width (RBC) [Ratio] 20.9 % High 10.9-14.[address] [facility] Comment on above: Performed By: #### 1 [id number], 2506009, 42625886 #### [facility] [address] [place] [address] Hematocrit (Bld) [Volume fraction] 31.5 % Low 37.7-49.[address] [facility] Comment on above: Performed By: #### 1 7268592, 3246064, 25234256 #### [facility] [address] [place] [address] Hemoglobin (Bld) [Mass/Vol] 9.3 g/dL Low 13.5-17.[address] [facility] Comment on above: Performed By: #### 1 5984131, 3353934, 79071025 #### [facility] [address] [place] [address] MCH (RBC) [Entitic mass] 20.2 pg Low 27.0-34.[address] [facility] Comment on above: Performed By: #### 1 7861503, 3232872, 25985314 #### [facility] [address] [place] [address] MCHC (RBC) [Mass/Vol] 29.4 g/dL Low 31.4-36.[address] [facility] Comment on above: Performed By: #### 1 2452659, 2796375, 30247659 #### [facility] [address] [place] [address] MCV (RBC) [Entitic vol] 68.7 fL Low 80.0-100.[address] [facility] Comment on above: Performed By: #### 1 9964959, 3554315, 56580476 #### [facility] [address] [place] [address] Platelet mean volume (Bld) [Entitic vol] 9.0 fL Normal 6.4-10.[address] [facility] Comment on above: Performed By: #### 1 5932000, 2256227, 87972113 #### [facility] [address] [place] [address] Platelets (Bld) [#/Vol] 217.0 E9/L Normal 150.0-500.[address] [facility] Comment on above: Performed By: #### 1 7572124, 9835759, 10322008 #### [facility] [address] [place] [address] RBC (Bld) [#/Vol] 4.6 E12/L Normal 4.3-5.[address] [facility] Comment on above: Performed By: #### 1 0534271, 8929176, 23053165 #### [facility] [address] [place] [address] WBC corrected for nucl RBC Auto (Bld) [#/Vol] 6.6 E9/L Normal 4.0-11.[address] [facility] Comment on above: Performed By: #### 1 9680234, 0217520, 34137454 #### [facility] [address] [place] [address] Consent for Treatmenton 12-2 Consent for Treatment [id number]#1.00T IFF [facility] Consent for Treatment [id number]#1.00T IFF [facility] HEMATOLOGYOrdered By: Rishi Coulter on 04-10-2023 Anisocytosis Ql (Bld) Present (04/10/23 2:19 PM) Normal [facility] Erythrocyte distribution width (RBC) [Ratio] 20.9 % High 10.9 - 14.2 % [facility] Hematocrit (Bld) [Volume fraction] 31.5 % Low 37.7 - 49.0 % [facility] Hemoglobin (Bld) [Mass/Vol] 9.3 g/dL Low 13.5 - 17.5 gm/dL [facility] Hypochromia Auto Ql (Bld) Present (04/10/23 2:19 PM) Normal [facility] MCH (RBC) [Entitic mass] 20.2 pg [...] 1.8 E9/L Normal 1.0 - 4.0 E9/L [facility] Monocytes/100 WBC (Bld) 11.1 % Normal 4.0 - 14.0 % [facility] Monocytes/Leukocyte s Auto (Bld) [Pure # fraction] 0.7 E9/L Normal 0.2 - 1.0 E9/L [facility] Neutrophils/100 WBC (Bld) 57.5 % Normal 36.0 - 75.0 % [facility] Neutrophils/Leukocy rosanna Auto (Bld) [Pure # fraction] 3.8 E9/L Normal 2.0 - 7.5 E9/L [facility] Heart and Vascular Office/ in Noteon [...] placement. The patient was recently admitted to [facility] in [place] after being transferred from [facility] in the [facility] after presenting with new onset left-sided facial droop. Patient was found to have a CVA, and CT of his carotids demonstrated bilateral carotid stenosis of approximately 7 0%. Patient was treated with Eliquis and aspirin and subsequently discharged. He used to live in the [facility] but recently relocated back up to this area to be with his daughters and 4 assisted living. From a cardiac standpoint he denies any chest pain, angina, shortness of breath or dyspnea on exertion over baseline. He is compliant with his medications. He has had no presyncope or syncopal episodes. Patient claims that he had an echocardiogram in [facility] but he does not have that included [...] on 02/20/2023. He is currently in a jail. He is no longer on anticoagulation. Patient [...] probably not (more content not included)... Normal [facility] Comment on above: Result Comment: Elec tronically Signed By: RONAL PILLAI, Johnny Vega\.br\Date and Time Signed: 04/10/23 14:01 EST Morphon 04-10-2023 Anisocytosis Ql (Bld) Present Normal [facility] Comment on above: Order Comment: Order Added by Discern Expert. Performed By: #### 1 [id number], 2539223, 81569986 #### [facility] [address] [place] [address] Hypochromia Auto Ql (Bld) Present Normal [facility] Comment on above: Order Comment: Order Added by Discern Expert. Performed By: #### 1 8036147, 6211231, 76909711 #### [facility] [address] [place] [address] Microcytes Ql (Bld) Present Normal [facility] Comment on above: Order Comment: Order Added by Discern Expert. Performed By: #### 1 4969754, 3505769, 90892828 #### [facility] [address] [place] [address] Morphology Jose (Bld) [Interp] See Morphology Normal [facility] Comment on above: Order Comment: Order Added by Discern Expert. Result Comment: Resu lts are consistent with previous path review performed on 02-15-23. Reviewed by MA. Performed By: #### 1 2389736, 8145555, 95613524 #### [facility] [address] [place] [address] Ovalocytes LM Ql (Bld) Present Normal [facility] Comment on above: Order Comment: Order Added by Discern Expert. Performed By: #### 1 1621943, 0598258, 91423252 #### [facility] [address] [place] [address] Polychromasia LM Ql (Bld) Present Normal [facility] Comment on above: Order Comment: Order Added by Discern Expert. Performed By: #### 1 [id number], 8015327, 12546663 #### [facility] [address] [place] [address] Physician Orderon 04-10-2023 Physician Order [id number]#1.[address] [facility] Prescriptions/Work Noteson 1 06-04-2022 Prescriptions/Work Notes [id number]#1.[address] [facility] Stress EKG Tracingson 2022 Stress EKG Tracings [id number]#1.[address] [facility] NM Myocardial Spect Rest/Str ess 1 [...] Stress Dose (mCi Tc99M Cardiolite): 28.[address] [facility] Consent for Treatmenton Consent for Treatment [id number]#1.00T IFF [facility] Group Home Recordson 03-26 Group Home Records [id number]#1.00T IFF [facility] Retail - Clinical Noteon Retail - Clinical Note [id number]#1.00T IFF [facility] Retail - Clinical Noteon Retail - Clinical Note [id number]#1.00T IFF [facility] Outside Labson 03-18-2023 Outside Labs [id number]#1.00T IFF [facility] Consent for Procedure/Surger yon 03-14-2023 Consent for Procedure/Surgery [id number]#1.[address] [facility] Family Medicine Office/Clini c Noteon 03-14-2023 Family Medicine Office/Clinic Note Chief Complaint TCM HPI Staff TCM: Hospital:[facility] Admission date:02/21/23 Discharge date:03/10/23 Symptoms the patient presented with:PT/OT, paperwork Current concerns:issues with breathing and needing rx for nebulizer. overall check up for leaving jail. History of Present Illness The patient is coming in for hospital follow-up. He was seen at [facility]. He was admitted from 02/21/2023 to 03/10/2023. He does need a nebulizer. 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 He does see cardiology. He is accompanied by an adult female. The adult female states they need a prescription for a nebulizer. 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 The GI doctor was going to check with his grain loader because they want him to take iron [...] cigarettes a day. He was at the jail for 2 weeks and then he fell [...] artery disease (I25.10: Atherosclerotic heart disease of [place] coronary artery without angina pectoris) sees cardiology, [...] nebulizer script given cont albuterol prn Ordered: [facility] Prescription, Adult nebulizer with mask and tubing, See Instructions, 1 EA, 0, Adult nebulizer with mask and tubing, uses q4h prn, Supply 8. IFG (impaired fasting glucose) (R73.01: Impaired fasting glucose) diet controlled 9. DANIEL (generalized anxiety disorder) (F41.1: Generalized anxiety disorder) stable 10. Stage 3b chronic kidney disease (CKD) (N18.32: Chronic kidney disease, stage 3b) eGFR: 53 mL/min/1.73 m2 Low (11/02/23 06:16:00) Creatinine: 1.3 mg/dL (02/20/23 06:16:00) avoid nephrotoxic agents 11. Alzheimer's disease, unspecified (G30.9: Alzheimer's disease, unspecified) cont donepezil 10 mg, refilled today 12. D (more content not included)... [facility] Comment on above: Result Comment: Elec tronically Signed By: Nanci Jarvis MD\.br\Date and Time Signed: 03/14/23 10:25 EST Group Home Recordson 03-14 Group Home Records [id number]#1.00T IFF [facility] Home Records [id number]#1.00T IFF [facility] Group Home Records [id number]#1.00TI FF [facility] Ambulatory Visit Summaryon 1 05-11-2022 Ambulatory Visit Summary THANH COLEMAN :1935 Visit Date:03/11/2023 Ambulatory Visit Instructions Your Diagnosis Anemia Loose stools Your Care Team Attending Physician - Carlos Castro CNP Primary Care Physician - Nanci [...] AM EST With: Nanci Jarvis MD Where: [facility] Family Medicine [facility] Gastroenterology Office/Clin ic Noteon 03-11-2023 Gastroenterology Office/Clinic Note Chief Complaint Hospital Follow up. HPI Staff This is a 87 year old male who was seen as a consult on 02/15/23, presents today for a follow up inpatient. Patient had colonoscopy 02/17/23 and EGD 02/16/23. Patient is here today with hie daughter Michelle. Patient lives at [facility] living in [place]. He denies previous EGD or colonoscopy. History of Present Illness Patient is a 87-year-old male who presents for follow-up from inpatient stay at [facility] 02/15/23. Presents with his daughter today. Patient [...] colon prep. Follow-up With When Contact Information Carlos Castro CNP Within 1 to 2 weeks [...] 54 m (more content not included)... [facility] Comment on above: Result Comment: Elec tronically Signed By: Matthew EARL, Carlos Ballesteros\.br\Date and Time Signed: 03/11/23 13:19 EST Patient [...] Follow these instructions at home: ? Take xjop-fhd-wouhven and prescription medicines only as told by [...] provider. Document Revised: 02/19/2022 Document Reviewed: 03/14/2020 [employer] Patient Education ? 2022 [employer]. [facility] Pulmonary Function Studieson 03-10-2023 Pulmonary Function [...] BY: Tova Gore M.D. ca Dictated: 03/08/2023 [id number] Transcribed: 03/08/2023 cc:Johnny Villeda M.D. [facility] Comment on above: Result Comment: Elec tronically Signed By: Sofía PILLAI, Tova Finn\.br\Date and Time Signed: 03/10/23 09:16 EST Consent for Treatmenton 02-19 Consent for Treatment [id number]#1.00T IFF [facility] Outside Recordson 03-07-2023 Outside Records [id number]#1.[address] [facility] Pulmonary Function Testson 1 05-07-2022 Pulmonary Function Tests [id number]#1.[address] [facility] Coding Queryon 03-01-2023 Coding Query - From: Stephania Stephen RN To: Sourav Canales DO; Sent: 02/28/2023 10:32:06 EST ! Subject: Coding Query Due Date/Time: 03/01/2023 10:32:00 EST Caller Name: THANH COLEMAN; Caller Number: Bartolo , M Documentation per a legal consultant in the medical record indicates this [...] judgment of the documented diagnoses by the legal consultant, do you agree with the diagnosis? [___]Yes, I agree with the diagnosis documented by the legal consultant. [___]No, I do not agree with the diagnosis documented by the legal consultant. Reason: In responding to this request, please exercise your independent professional judgement. The fact that a question is asked does not imply that any particular answer is desired or expected. Thank you!stephania [id number] From: Sourav Canales DO To: Stephania Stephen RN; Sent: 03/01/2023 07:21:41 EST Subject: RE: Coding Query Caller Name: THANH COLEMAN; Caller Number: H , M Yes, I agree with the diagnosis documented by the legal consultant. [facility] Insurance Correspondenceon 1 04-30-2022 Insurance Correspondence [id number]#1.[address] [facility] Coding Queryon 02-27-2023 Coding Query - From: Stephania Stephen RN To: oSurav Canales DO; Sent: 02/20/2023 09:03:35 EDT ! [...] THANH COLEMAN; Caller Number: Bartolo , M Gastrointestinal hemorrhage, unspecified Normal [facility] Pre-Visit Planningon 023 Pre-Visit Planning - From: Jojo Watson To: Matheus PILLAI, Nanci; Sent: 02/24/2023 14:41:16 EST Subject: Pre-Visit Planning Due Date/Time: 02/24/2023 14:41:00 EST Caller Name: THANH COLEMAN; Caller Number: Bartolo , M Ks Dr. Jarvis. During an annual wellness pre-visit [...] feel free to contact me at extension [phone]. Thank you! Jojo Watson LPN From: Nanci Jarvis MD To: Jojo Watson; Sent: 02/25/2023 08:11:29 EST Subject: RE: Pre-Visit Planning Caller Name: THANH COLEMAN; Caller Number: Bartolo , M please add the following Chronic respiratory failure with hypoxia Normal [address] [place] [address] Discharge Instructionson Discharge Instructions [id number]#1.[address] [facility] Medication Listson Medication Lists [id number]#1.[address] [facility] Outside Cardiovascularon Outside Cardiovascular [id number]#1.[address] [facility] Transfer Documentson 023 Transfer Documents [id number]#1.[address] [facility] Transfer Documents [id number]#1.[address] [facility] Transfer Documents [id number]#1.[address] [facility] Ammoniaon 02-21-2023 Ammonia (P) [Moles/Vol] [address] [facility] Comment on above: Performed By: #### 1 [id number], 0528125, [id number] #### [facility] [address] [place] [address] C Urineon 02-21-2023 Bacteria identified Cx Nom [...] Locations R1: [facility] test [facility] at[facility], [address] [place] [address], [address]- , , [facility] Comment on above: Performed By: #### 2 [id number], [id number] ####[facility] [address] [place] [address] Discharge Note-Nursingon Discharge Note-Nursing [place], THANH :1935 Visit Date:02/15/2023 Inpatient Discharge Instructions Your [...] AM EST With: Nanci Jarvis MD Where: [facility] [address] [place] [address]- \.br\ Friday 3:45 PM EST \.br\ With: RONAL PILLAI, Johnny Vega\.br\ Where: Cardiology Clinic\.br\ New Follow Up Appointments after Discharge\.br\ Follow Up with Bela Suero When: 02/27/2023 10:00 AM EST\.br\ Comments:\.br\ Will be seeing Carlos Castro CNP at this appointment.\.br\ Where:\.br\ [address], [address]\.br\ [facility] 3\.br\ [place] [address]-\.br\ [phone] Business (1)\.br\ Follow Up with Nanci Jarvis When: 02/26/2023 10:00 AM EST\.br\ Where:\.br\ [address] [facility]\.br\ [place] [address]-\.br\ [phone] Business (1)\.br\ Medications\.br\ What How Much When [...] Tab) 50 Microgram By Mouth Every day 02/22 9am\.br\ Unchanged ezetimibe (ezetimibe 10 mg Tab) 1 Tablets By Mouth Every day 02/22 9am\.br\ Unchanged fenofibrate (fenofibrate 54 mg oral tablet) 1 Tablets By Mouth Every day 02/22 9a\.br\ Unchanged furosemide (furosemide 20 mg Tab) 1 Tablets By Mouth Every day as needed for Edema 02/22 9am\.br\ Unchanged nitroglycerin (nitroglycerin 0.4 mg sublingual Tab) [...] these instructions at home:\.br\ ? \.br\ Take miqq-ltl-uipajfn and prescription medicines only as told by [...] have enough red blood cells or enough [facility] Inpatient Clinical Summaryon 02-21-2023 Inpatient Clinical Summary [place] [id number] Clinical Summary Person Information: Name: THANH COLEMAN Age: 87 Years : 1935 Sex: Male PCP: Nanci Jarvis MD Marital Status: Phone: [phone] Race: White Ethnicity: Non- or Language: [place] Visit Id: Visit Reason: Tachycardia; Weakness or fatigue; poss asthenia Speciality: Acuity: Enc Type: Inpatient Med Service: Medical Arrival: 02/15/2023 13:33:36 Discharge: Dispo Type: Admitted as IP to this Hosp Address: [address] [place] [phone] Provider Notes: Diagnosis: 1:Acute blood loss anemia; [...] Team Members: Attending Physician: Lavell Siegel DO Consulting Physician: Bela Suero MD Referring Physician: Follow up: With: Address: When: Bela Suero [address] [facility], [address], [address] [phone] Business (1) 02/27/2023 10:00 AM Comments: Will be seeing Carlos Castro CNP at this appointment. With: Address: When: Nanci Jarvis [address] [place] [address] [phone] Business (1) 02/26/2023 10:00 AM Type Location Start [facility] ER/Hospital Follow Up [facility] 02/26/2023 10:00 AM 02/26/2023 10:20 AM Confirmed BADH Follow Up [facility] 02/27/2023 10:00 AM 02/27/2023 10:20 AM Conf[facility] 3:45 PM 03/14/2023 4:00 PM Confirmed Patient Education Information: Normal [facility] Inpatient Patient Summaryon 02-21-2023 Inpatient Patient Summary [address] [address] Patient Discharge Instructions PERSON INFORMATION Name: THANH COLEMAN Date of : 1935 Current Date: 02/21/2023 12:52:01 PHYSICIANS Admitting Physician: Lavell Siegel DO Primary Care Physician: Nanci Jarvis MD PCP Phone Number: [phone] Comment: Discharge Diagnosis: 1:Acute blood loss anemia; [...] Follow up: With: Address: When: Bela Suero [address] [place], [place] [address], [address], [address] [phone] Business () 02/27/2023 10:00 AM Comments: Will be seeing Carlos Castro CNP at this appointment. With: Address: When: Nanci Jarvis [address] [place] [phone] [employer] () 02/26/2023 10:00 AM In the event that this physician does not participate in your insurance network, please consult with your insurance company to find a nearby participating provider. Type Location Start [facility] ER/Hospital Follow Up [facility] 02/26/2023 10:00 AM 02/26/2023 10:20 AM Confirmed BADH Follow Up [facility] 02/27/2023 10:00 AM 02/27/2023 10:20 [...] every day. (more content not included)... Normal [facility] Interdisciplinary Note - Ron e Manageron 02-21-2023 Interdisciplinary Note - Statement Processor CRM to room to discuss DC Planning. Patient is drowsy and only opens his eyes to CRM once his name is spoken. Reported to CRM increased confusion and decreased mobility. Patient is from there [facility]. Patient [place] need transport [place] . Patient verified PCP, home DME and [...] SNF. Patient is now with referral to [facility] and he is pending precert. Patient would like a FWW and Toilet Riser, this will need arranged post SNF now.. . Patient was provided CRM contact, white board updated. Anticipated DC once cert obtained. CRM following Auth is back, Dr Canales called Daughter and provided her update of DC Normal [facility] Comment on above: Result Comment: Elec tronically Signed By: Natalya Rivas\.johana\Date and Time Signed: 02/21/23 13:10 EDT Auto Diffon 02-20-2023 Basophils/100 WBC (Bld) 1.0 % Normal 0.0-2.[address] [facility] Comment on above: Order Comment: Order Added by Discern Expert. Performed By: #### 2 825662, 9413029, 04576181, 4763610, 48253937 ####[facility] [address] [place] [address] Basophils/Leukocyte s Auto (Bld) [Pure # fraction] 0.1 E9/L Normal 0.0-0.[address] [facility] Comment on above: Order Comment: Order Added by Discern Expert. Performed By: #### 2 605807, 2105999, 45312381, 1182075, 52011882 ####[facility] [address] [place] [address] Eosinophils/100 WBC (Bld) 3.7 % Normal 0.0-8.[address] [facility] Comment on above: Order Comment: Order Added by Discern Expert. Performed By: #### 2 366900, 0231142, 47531294, 4767548, 77292169 ####[facility] [address] [place] [address] Eosinophils/Leukocy rosanna Auto (Bld) [Pure # fraction] 0.2 E9/L Normal 0.0-0.[address] [facility] Comment on above: Order Comment: Order Added by Discern Expert. Performed By: #### 2 167249, 3597242, 46508503, 3116367, 39574828 ####[facility] [address] [place] [address] Lymphocytes/100 WBC (Bld) 15.0 % Normal 14.0-50.[address] [facility] Comment on above: Order Comment: Order Added by Discern Expert. Performed By: #### 2 464143, 1034139, 49941865, 3294820, 24666757 ####[address] [address] Lymphocytes/Leukocy rosanna Auto (Bld) [Pure # fraction] 0.9 E9/L Low 1.0-4.[address] [facility] Comment on above: Order Comment: Order Added by Discern Expert. Performed By: #### 2 565052, 7465972, 96820720, 7418929, 14084396 ####[address] [address] Monocytes/100 WBC (Bld) 12.5 % Normal 4.0-14.[address] [facility] Comment on above: Order Comment: Order Added by Discern Expert. Performed By: #### 2 414330, 0929930, 89730042, 3220241, 53870708 ####[address] [address] Monocytes/Leukocyte s Auto (Bld) [Pure # fraction] 0.7 E9/L Normal 0.2-1.[address] [facility] Comment on above: Order Comment: Order Added by Discern Expert. Performed By: #### 2 415740, 7453154, 56762177, 4508821, 26852444 ####[address] [address] Neutrophils/100 WBC (Bld) 67.8 % Normal 36.0-75.[address] [facility] Comment on above: Order Comment: Order Added by Discern Expert. Performed By: #### 2 816788, 8625346, 75106794, 7721823, 46747454 ####[address] [address] Neutrophils/Leukocy rosanna Auto (Bld) [Pure # fraction] 3.9 E9/L Normal 2.0-7.[address] [facility] Comment on above: Order Comment: Order Added by Discern Expert. Performed By: #### 2 086658, 2945713, 48107219, 0657469, 42911034 ####[place] [address] [place] [address] CBC w/ Auto Diffon 3 Erythrocyte distribution width (RBC) [Ratio] 24.4 % High 10.9-14.[address] [facility] Comment on above: Performed By: #### 2 609698, 8171924, 34036956, 9533420, 05278746 ####[address] [address] Hematocrit (Bld) [Volume fraction] 27.1 % Low 37.7-49.[address] [facility] Comment on above: Performed By: #### 2 435407, 6108916, 66373490, 9360556, 32900640 ####[address] [address] Hemoglobin (Bld) [Mass/Vol] 8.3 g/dL Low 13.5-17.[address] [facility] Comment on above: Performed By: #### 2 181089, 8622852, 48161753, 2651530, 49794333 ####[address] [address] MCH (RBC) [Entitic mass] 23.2 pg Low 27.0-34.[address] [facility] Comment on above: Performed By: #### 2 337826, 5492037, 79546457, 2225335, 66322917 ####[address] [address] MCHC (RBC) [Mass/Vol] 30.4 g/dL Low 31.4-36.[address] [facility] Comment on above: Performed By: #### 2 119967, 2031094, 93934008, 4638163, 77827447 ####[address] [address] MCV (RBC) [Entitic vol] 76.4 fL Low 80.0-100.[address] [facility] Comment on above: Performed By: #### 2 824771, 6948354, 75500275, 4418919, 53177955 ####[address] [address] Platelet mean volume (Bld) [Entitic vol] 8.9 fL Normal 6.4-10.[address] [facility] Comment on above: Performed By: #### 2 597618, 8638648, 41602965, 6633383, 76343060 ####[address] [address] Platelets (Bld) [#/Vol] 153.0 E9/L Normal 150.0-500.[address] [facility] Comment on above: Performed By: #### 2 461807, 0023267, 53852692, 6497698, 27920107 ####[address] [address] RBC (Bld) [#/Vol] 3.6 E12/L Low 4.3-5.[address] [facility] Comment on above: Performed By: #### 2 949594, 2845277, 50553892, 8376948, 85954459 ####[address] [address] WBC corrected for nucl RBC Auto (Bld) [#/Vol] 5.8 E9/L Normal 4.0-11.[address] [facility] Comment on above: Performed By: #### 2 594127, 9784419, 29381961, 8124759, 68190258 ####[address] [address] CMPon 02-20-2023 Albumin [Mass/Vol] 3.2 g/dL Low 3.3-5.[address] [facility] Comment on above: Performed By: #### 2 328632, 4596386, 05774956, 6021647, 11952731 ####[address] [address] Albumin/Globulin (S) [Mass conc ratio] 1.0 Low 1.1-2.[address] [facility] Comment on above: Performed By: #### 2 219356, 0357034, 70934862, 2891720, 37954612 ####[facility] [address] [place] [address] ALP [Catalytic activity/Vol] 57 Int._Unit/L Normal 21-[address] [facility] Comment on above: Performed By: #### 2 709647, 4333964, 58899279, 4574906, 53766399 ####[facility] [address] [place] [address] ALT No additional P-5'-P [Catalytic activity/Vol] 48 Int._Unit/L High 6-[address] [facility] Comment on above: Performed By: #### 2 705195, 2951214, 42854834, 0575492, 52564305 ####[facility] [address] [place] [address] Anion gap [Moles/Vol] 4 mmol/L Low 6-[address] [facility] Comment on above: Performed By: #### 2 483833, 2835413, 21392055, 5089271, 55566851 ####[facility] [address] [place] [address] AST [Catalytic activity/Vol] 21 Int._Unit/L Normal 5-[address] [facility] Comment on above: Performed By: #### 2 101568, 9744250, 16268036, 1501987, 41010877 ####[facility] [address] [place] [address] Bilirubin [Mass/Vol] 0.9 mg/dL Normal 0.0-1.[address] [facility] Comment on above: Performed By: #### 2 868663, 5979632, 25949881, 3461004, 52958760 ####[facility] [address] [place] [address] Calcium [Mass/Vol] 8.7 mg/dL Low 8.9-11.[address] [facility] Comment on above: Performed By: #### 2 705348, 2495727, 32734897, 7080702, 19775025 ####[facility] [address] [place] [address] Chloride [Moles/Vol] 114 mmol/L High 101-[address] [facility] Comment on above: Performed By: #### 2 034219, 8573985, 74011508, 0984994, 71311755 ####[facility] [address] [place] [address] CO2 [Moles/Vol] 31 mmol/L Normal 21-[address] [facility] Comment on above: Performed By: #### 2 673113, 5197425, 80449990, 7683542, 67051691 ####[facility] [address] [place] [address] Creatinine [Mass/Vol] 1.3 mg/dL Normal 0.5-1.[address] [facility] Comment on above: Performed By: #### 2 277800, 6378762, 92821554, 4847089, 56957008 ####[facility] [address] [place] [address] Globulin (S) [Mass/Vol] 3.2 g/dL Normal 1.4-4.[address] [facility] Comment on above: Performed By: #### 2 623758, 4469882, 77945805, 2319503, 39783718 ####[facility] [address] [place] [address] Glucose [Mass/Vol] 97 mg/dL Normal 55-[address] [facility] Comment on above: Result Comment: If t his glucose result represents a fasting glucose, interpretation should refer to the following reference range: 55-99 mg/dL Performed By: #### 2 269322, 3159941, 99693332, 4770950, 98487094 ####[facility] [address] [place] [address] Potassium [Moles/Vol] 4.4 mmol/L Normal 3.5-5.[address] [facility] Comment on above: Performed By: #### 2 171158, 2765945, 59790320, 5201589, 86318452 ####[facility] [address] [place] [address] Protein [Mass/Vol] 6.4 g/dL Normal 6.0-7.[address] [facility] Comment on above: Performed By: #### 2 024062, 6748887, 67810287, 6395177, 85710820 ####[facility] [address] [place] [address] Sodium [Moles/Vol] 145 mmol/L Normal 135-[address] [facility] Comment on above: Performed By: #### 2 040337, 1236849, 81066349, 0750370, 53177542 ####[facility] [address] [place] [address] Urea nitrogen [Mass/Vol] 21 mg/dL Normal 5-[address] [facility] Comment on above: Performed By: #### 2 701279, 3850300, 44779719, 0774447, 87677950 ####[facility] [address] [place] [address] Urea nitrogen/Creatinine [Mass ratio] 16 No Units Normal 10-[address] [facility] Comment on above: Performed By: #### 2 293845, 1252066, 04837427, 0651218, 21169077 ####[facility] [address] [place] [address] Interdisciplinary Note - Ron e Manageron 02-20-2023 Interdisciplinary Note - Statement Processor CRM to room to discuss DC Planning. Patient is drowsy and only opens his eyes to CRM once his name is spoken. Reported to CRM increased confusion and decreased mobility. Dr Canales is aware of confusion and mobility concerns. Patient is from there [facility]. [place] need transport [place] . Patient verified PCP, home DME and [...] SNF. Patient is now with referral to [facility] and he is pending precert. Patient would like a FWW and Toilet Riser, this will need arranged post SNF now.. . Patient was provided CRM contact, stacey board updated. Anticipated DC 02/21 or 02/22? CRM following Daughter Michelle Called to provide an update. Normal [facility] Comment on above: Result Comment: Elec tronically Signed By: Natalya Rivas\.br\Date and Time Signed: 02/20/23 11:37 EDT Interdisciplinary Note - Nut ritionon 02-20-2023 Interdisciplinary Note - Nutrition Pt rescreened [...] nutrition needs identified at this time. Normal [facility] Comment on above: Result Comment: Elec tronically Signed By: Nichole MEYER, , Shelia\.br\Date and Time Signed: 02/20/23 09:13 EDT IntraOperative Documentson 1 04-22-2022 IntraOperative Documents [id number]#1.[address] [facility] IntraOperative Documents [id number]#1.[address] [facility] Lyteson 02-20-2023 Anion gap [Moles/Vol] 8 mmol/L Normal 6-[address] [facility] Comment on above: Performed By: #### 2 314043, 0313230 #### [facility] [address] [place] [address] Chloride [Moles/Vol] 109 mmol/L Normal 101-[address] [facility] Comment on above: Performed By: #### 2 089037, 5606724 #### [facility] [address] [place] [address] CO2 [Moles/Vol] 34 mmol/L High 21-[address] [facility] Comment on above: Performed By: #### 2 080816, 3298369 #### [facility] [address] [place] [address] Potassium [Moles/Vol] 4.0 mmol/L Normal 3.5-5.[address] [facility] Comment on above: Performed By: #### 2 375260, 6937876 #### [facility] [address] [place] [address] Sodium [Moles/Vol] 147 mmol/L High 135-[address] [facility] Comment on above: Performed By: #### 2 298134, 1111716 #### [facility] [address] [place] [address] Magnesiumon 02-20-2023 Magnesium [Mass/Vol] 1.9 mg/dL Normal 1.3-2.[address] [facility] Comment on above: Performed By: #### 2 479225, 8302568 #### [facility] [address] [place] [address] Main OR Intraoperative Recor don 02-20-2023 Main OR Intraoperative Record IntraOp Document Type FT Summary Primary Physician: Stefan Israel MD Finalized Date/Time: 02/20/23 13:48:50 Pt. Name: THANH COLEMAN/Sex: 1935 Male Med Rec #: [id number] Physician: Lavell Siegel DO Financial #: [id number] Pt. Type: I Room/Bed: [place] [address] Admit/Disch: 02/15/23 13:33:36 - Institution: Case Times [...] 1 Entry 2 Entry 3 Case Attendee Stefan Israel MD, John C. Workman RN, Natalie Role Performed Surgeon - Primary Anesthesiologist Imaging Account Manager - Primary Can Inspector Time In 02/17/23 07:24:00 02/17/23 07:24:00 02/17/23 [...] Stefan [place], Given Participants Stefan Blue Workman RN, Amish Estrada Kirstyn K Time Out Complete 02/17/23 07:28:00 [...] x 1 Primary Procedure Yes Primary Surgeon Lindy PILLAI, Stefan Kendrick Start 02/17/23 07:29:00 Stop 02/17/23 07:45:00 Anesthesia Type [...] tissue Entry 1 Skin Integrity Bruised, Cool, [place], Skin Abnormality No Intact Abnormality Location bilat. [...] Arm Position (more content not included)... Normal [facility] Message from Medicareon Message from Medicare [id number]#1.00T IFF Normal [facility] Monitor Recordon 02-20-2023 Monitor Record [id number]#1.[address] [facility] Monitor Record [id number]#1.[address] [facility] Monitor Record [id number] [facility] Monitor Record [id number] [facility] Monitor Record [id number]#1.[address] [facility] Morphon 02-20-2023 Anisocytosis Ql (Bld) Present Normal [facility] Comment on above: Order Comment: Order Added by Discern Expert. Performed By: #### 2 313871, 1017954, 23315279, 7143556, 29684095 ####[facility] [address] [place] [address] Hypochromia Auto Ql (Bld) Present Normal [facility] Comment on above: Order Comment: Order Added by Discern Expert. Performed By: #### 2 423996, 6668880, 69961109, 3694022, 90253069 ####[facility] [address] [place] [address] Microcytes Ql (Bld) Present Normal [facility] Comment on above: Order Comment: Order Added by Discern Expert. Performed By: #### 2 701632, 9279098, 19789029, 3539960, 56028107 ####[facility] [address] [place] [address] Morphology Jose (Bld) [Interp] See Morphology Normal [facility] Comment on above: Order Comment: Order Added by Discern Expert. Performed By: #### 2 214590, 1115903, 25909541, 6085457, 00843131 ####[facility] [address] [place] [address] Ovalocytes LM Ql (Bld) Present Normal [facility] Comment on above: Order Comment: Order Added by Discern Expert. Performed By: #### 2 114248, 1582558, 52201509, 9759698, 73464379 ####[facility] [address] [place] [address] Polychromasia LM Ql (Bld) Present Normal [facility] Comment on above: Order Comment: Order Added by Discern Expert. Performed By: #### 2 696555, 9401680, 31325349, 6159213, 11863329 ####[facility] [address] [place] [address] Schistocytes LM Ql (Bld) Present Normal [facility] Comment on above: Order Comment: Order Added by Cam Expert. Performed By: #### 2 504742, 3585696, 30987815, 2294371, 71033516 ####[facility] [address] [place] [address] Progress Note-Physicianon Progress Note-Physician Subjective Seen earlier [...] 06:16:00) Lymph Auto: 15 % (02/20/23 06:16:00) [place] Auto: 12.5 % (02/20/23 06:16:00) Eos Auto: 3.7 % (02/20/23 06:16:00) Basophil Auto: 1 % (02/20/23 06:16:00) Neutro Absolute: 3.9 E9/L (02/20/23 06:16:00) Lymph Absolute: 0.9 E9/L Low (02/20/23 06:16:00) [place] Absolute: 0.7 E9/L (02/20/23 06:16:00) Eos Absolute: 0.2 E9/L (02/20/23 06:16:00) Basophil Absolute: 0.1 E9/L (02/20/23 06:16:00) RBC Morph: See Morphology (02/20/23 06:16:00) Anisocytosis: Present (02/20/23 06:16:00) Microcyte: Present (02/20/23 06:16:00) Hypochromasia: Present (02/20/23 06:16:00) Polychromasia: Present (02/20/23 06:16:00) Schistocytes: Present (02/20/23 06:16:00) Ovalocytes: Present (02/20/23 06:16:00) Glucose Lvl: 97 [...] last day or so which may be ing. Work-up thus far is unremarkable including urinalysis and CBC and CMP this morning. His comorbidities include tobacco use, hypertension, hyperlipidemia, CAD status post stent placement, history of CVA, carotid artery stenosis, PAF status post pacemaker placement on Eliquis and obesity. 1. Acute blood loss a (more content not included)... Normal [facility] Comment on above: Result Comment: Elec tronically Signed By: Sourav Canales DO\Date and Time Signed: 02/20/23 15:08 EDT eGFRon 02-20-2023 GFR/1.73 sq M.predicted among non-blacks MDRD (S/P/Bld) [Vol rate/Area] 53 mL/min/1.73 m2 Low >=[address] [facility] Comment on above: Order Comment: Order added by Discern Expert. Result Comment: Cylinder Head Assembler jese kidney disease could be indicated at eGFR's of less than 60 mL/min/1.73m2. Kidney failure is indicated at less than 15 mL/min/1.73m2. Performed By: #### 1 2317624, 3749717, 48049109 #### [facility] [address] [place] [facility] [place] [address] BMPon 02-19-2023 Anion gap [Moles/Vol] 5 mmol/L Low 6-[address] [facility] Comment on above: Performed By: #### 2 932309, 40735680, 93375121 #### [facility] [address] [place] [address] Calcium [Mass/Vol] 8.2 mg/dL Low 8.9-11.[address] [facility] Comment on above: Performed By: #### 2 493405, 42591056, 15404021 #### [facility] [address] [place] [place] [address] Chloride [Moles/Vol] 110 mmol/L Normal 101-[address] [facility] Comment on above: Performed By: #### 2 693448, 54788288, 96719522 #### [facility] [address] [facility] [place] [address] CO2 [Moles/Vol] 31 mmol/L Normal 21-[address] [facility] Comment on above: Performed By: #### 2 843313, 02717314, 20667179 #### [facility] [address] [place] [address] Creatinine [Mass/Vol] 1.4 mg/dL High 0.5-1.[address] [facility] Comment on above: Performed By: #### 2 128887, 81528595, 18261700 #### [facility] [address] [place] [address] Glucose [Mass/Vol] 107 mg/dL Normal 55-[address] [facility] Comment on above: Result Comment: If t his glucose result represents a fasting glucose, interpretation should refer to the following reference range: 55-99 mg/dL Performed By: #### 2 268968, 09652117, 72217958 #### [facility] [address] [place] [address] Potassium [Moles/Vol] 4.3 mmol/L Normal 3.5-5.[address] [facility] Comment on above: Performed By: #### 2 265210, 85745756, 83094594 #### [facility] [address] [place] [address] Sodium [Moles/Vol] 142 mmol/L Normal 135-[address] [facility] Comment on above: Performed By: #### 2 913275, 49133585, 80747504 #### [facility] [address] [place] [address] Urea nitrogen [Mass/Vol] 17 mg/dL Normal 5-[address] [facility] Comment on above: Performed By: #### 2 284181, [id number], [id number] #### [facility] [address] [place] [address] Urea nitrogen/Creatinine [Mass ratio] 12 No Units Normal 10-[address] [facility] Comment on above: Performed By: #### 2 372918, 57721166, 52958499 #### [facility] [address] [place] [address] Consenton 02-19-2023 Consent [id number]#1.[address] [facility] Hct & Hgbon 02-19-2023 Hematocrit (Bld) [Volume fraction] 26.3 % Low 37.7-49.[address] [facility] Comment on above: Performed By: #### 2 448595, 18754028, 60443751 #### [facility] [address] [place] [address] Hemoglobin (Bld) [Mass/Vol] 8.1 g/dL Low 13.5-17.[address] [facility] Comment on above: Performed By: #### 2 679003, 87009502, 96257278 #### [facility] [address] [place] [address] Interdisciplinary Note - Ron e Manageron 02-19-2023 Interdisciplinary Note - Statement Processor CRM to room to discuss DC Planning. Patient is awake , alert and oriented. Patient daughter is in room. They prefer [facility] or [facility] to transport if they can at [place]. Patient is from there [place]. Patient verified [...] today, now with SNF recommendation Referral to [facility] which is next door to [facility] Normal [facility] Comment on above: Result Comment: Rene ocampo Signed By: Natalya Rivas\.johana\Date and Time Signed: 02/19/23 13:07 EDT Monitor Recordon 02-19-2023 Monitor Record [id number]#1.[address] [facility] Progress Note-Physicianon Progress Note-Physician Subjective Seen [...] mg/dL High (02/18/23 18:16:00) POC Device SN: [id number] (02/18/23 18:16:00) POC User ID: [id number] (02/18/23 18:16:00) POC Username: POC Username (02/18/23 [...] 40 mg IV push twice daily Ordered: [facility] Care/Day Moderate 35 Minutes 28370 2. GI bleed (K92.2: Gastrointestinal hemorrhage, unspecified) H&H stable Ordered: [facility] Care/Day Moderate 35 Minutes 62456 3. SUMMER (acute kidney injury) (N17.9: Acute kidney failure, unspecified) Serum creatinine better at 1.4 Ordered: [facility] Care/Day Moderate 35 Minutes 53791 4. Elevated troponin (R79.89: Other specified abnormal findings of blood chemistry) Stable Ordered: [facility] Care/Day Moderate 35 Minutes 49218 5. Dyspnea (R06.00: Dyspnea, unspecified) Satting in the 90 to 93% range on 3 L Ordered: [facility] Care/Day Moderate 35 Minutes 46380 6. Generalized weakness (R53.1: Weakness) Continue PT Ordered: [facility] Care/Day Moderate 35 Minutes 47969 7. Atelectasis of both lungs (J98.11: Atelectasis) ICS at the bedside Ordered: [facility] Care/Day Moderate 35 Minutes 75267 8. Carotid stenosis, bilateral (I65.23: Occlusion and stenosis of bilateral carotid arteries) Chronic; continue holding aspirin and Eliquis due to the GI blood loss anemia nicotine replacement therapy Ordered: [facility] Care/Day Moderate 35 Minutes 24460 9. Smoker (F17.200: Nicotine dependence, unspecified, uncomplicated) Ordered: [facility]/Day Moderate 35 Min (more content not included)... Normal [facility] Comment on above: Result Comment: Elec tronically Signed By: Sourav Canales DO.br\Date and Time Signed: 02/19/23 13:58 EDT UA With Cult Reflexon 2022 Bacteria LM Ql (Urine sed) 1+ /HPF Abnormal Trace [facility] Comment on above: Performed By: #### 2 600188, [id number] ####[facility] [address] [place] [address] Bilirubin Ql (U) Negative Normal Negative [facility] Comment on above: Performed By: #### 2 234571, 79808034 ####[facility] [address] [place] [address] Clarity (U) SL CLOUDY Invalid Interpretation Code [facility] Comment on above: Performed By: #### 2 685620, 42047832 ####[facility] [address] [place] [address] Color (U) YELLOW Normal Yellow [facility] Comment on above: Performed By: #### 2 119784, 75869499 ####[facility] [address] [place] [address] Epithelial cells.squamous LM.HPF (Urine sed) [#/Area] 0-2 Normal 0-[address] [facility] Comment on above: Performed By: #### 2 354234, 20663082 ####[facility] [address] [place] [address] Glucose Test strip (U) [Mass/Vol] Negative Normal Negative [facility] Comment on above: Performed By: #### 2 941878, 85022550 ####[facility] [address] [place] [address] Hemoglobin Ql (U) Negative Normal Negative [facility] Comment on above: Performed By: #### 2 273819, 97554157 ####[facility] [address] [place] [address] Ketones (U) [Mass/Vol] Negative Normal Negative [facility] Comment on above: Performed By: #### 2 410984, 78066099 ####[facility] [address] [place] [address] [place].plasma/Lith ium.RBC (Bld) [Mass ratio] 0-3 Normal 0-[address] [facility] Comment on above: Performed By: #### 2 547259, 63394934 ####[facility] [address] [place] [address] Nitrite Ql (U) Positive Abnormal Negative [facility] Comment on above: Performed By: #### 2 172021, 17712293 ####[facility] [address] [place] [address] pH (U) 6.5 [pH] Invalid Interpretation Code 5.0-9.[address] [facility] Comment on above: Performed By: #### 2 281818, 48942985 ####[facility] [address] [place] [address] Protein (U) [Mass/Vol] 1+ Abnormal Negative [facility] Comment on above: Performed By: #### 2 388202, 94096740 ####[facility] [address] [place] [address] Specific gravity (U) [Rel density] 1.025 Invalid Interpretation Code 1.005-1.[address] [facility] Comment on above: Performed By: #### 2 457646, 00685683 ####[facility] [address] [place] [address] Type of Urine collection method Clean Catch Normal [facility] Comment on above: Performed By: #### 2 343223, 80369625 ####[facility] [address] [place] [address] Urobilinogen Qn (U) 0.2 {Ken[place]'U}/dL Normal 0.0-1.[address] [facility] Comment on above: Performed By: #### 2 001429, 54774575 ####[address] [address] WBC Auto Ql (U) Negative Normal Negative [facility] Comment on above: Performed By: #### 2 608141, 03969953 ####[facility] [address] [place] [address] WBC casts LM.LPF (Urine sed) [#/Area] 0-[address] [facility] Comment on above: Performed By: #### 2 338750, 60931482 ####[facility] [address] [place] [address] WBC LM.HPF (Urine sed) [#/Area] 0-5 Normal 0-[address] [facility] Comment on above: Performed By: #### 2 651949, 74353542 ####[facility] [address] [place] [address] eGFRon 02-19-2023 GFR/1.73 sq M.predicted among non-blacks MDRD (S/P/Bld) [Vol rate/Area] 49 mL/min/1.73 m2 Low >=[address] [facility] Comment on above: Order Comment: Order added by Discern Expert. Result Comment: Cylinder Head Assembler jese kidney disease could be indicated at eGFR's of less than 60 mL/min/1.73m2. Kidney failure is indicated at less than 15 mL/min/1.73m2. Performed By: #### 2 156003, 99073882, 58821522 #### [facility] [address] [place] [address] BMPon 02-18-2023 Anion gap [Moles/Vol] 5 mmol/L Low 6-[address] [facility] Comment on above: Performed By: #### 2 149757, 82114485, 41348534, 3659602 ####[facility] [address] [place] [address] Calcium [Mass/Vol] 8.1 mg/dL Low 8.9-11.[address] [facility] Comment on above: Performed By: #### 2 922953, 07958595, 07510654, 6865770 ####[facility] [address] [place] [address] Chloride [Moles/Vol] 114 mmol/L High 101-[address] [facility] Comment on above: Performed By: #### 2 926425, 12884817, 21829529, 5773907 ####[facility] [address] [place] [address] CO2 [Moles/Vol] 28 mmol/L Normal 21-[address] [facility] Comment on above: Performed By: #### 2 909159, 96729708, 64408468, 2201196 ####[facility] [address] [place] [address] Creatinine [Mass/Vol] 1.7 mg/dL High 0.5-1.[address] [facility] Comment on above: Performed By: #### 2 794401, 07584501, 53702012, 1124254 ####[facility] [address] [place] [address] Glucose [Mass/Vol] 98 mg/dL Normal 55-[address] [facility] Comment on above: Result Comment: If t his glucose result represents a fasting glucose, interpretation should refer to the following reference range: 55-99 mg/dL Performed By: #### 2 962342, 15986588, 54472755, 4165365 ####[facility] [address] [place] [address] Potassium [Moles/Vol] 4.0 mmol/L Normal 3.5-5.[address] [facility] Comment on above: Performed By: #### 2 468989, 68233362, 07337446, 2238726 ####[facility] [address] [place] [address] Sodium [Moles/Vol] 143 mmol/L Normal 135-[address] [facility] Comment on above: Performed By: #### 2 735117, 41862827, 43584307, 5364579 ####[facility] [address] [place] [address] Urea nitrogen [Mass/Vol] 23 mg/dL High 5-[address] [facility] Comment on above: Performed By: #### 2 288129, 29185237, 62765283, 7973020 ####[facility] [address] [place] [address] Urea nitrogen/Creatinine [Mass ratio] 14 No Units Normal 10-[address] [facility] Comment on above: Performed By: #### 2 137040, 08547607, 17665364, 0793371 ####[facility] [address] [place] [address] CBC w/Indiceson 02-18-2023 Erythrocyte distribution width (RBC) [Ratio] 24.3 % High 10.9-14.[address] [facility] Comment on above: Performed By: #### 2 530218, 47573243, 38984026, 2496381 ####[facility] [address] [place] [address] Hematocrit (Bld) [Volume fraction] 25.6 % Low 37.7-49.[address] [facility] Comment on above: Performed By: #### 2 141258, 11694353, 53185874, 2711765 ####[facility] [address] [place] [address] Hemoglobin (Bld) [Mass/Vol] 7.9 g/dL Low 13.5-17.[address] [facility] Comment on above: Performed By: #### 2 523762, 42787330, 76418036, 9904727 ####[facility] [address] [place] [address] MCH (RBC) [Entitic mass] 23.4 pg Low 27.0-34.[address] [facility] Comment on above: Performed By: #### 2 748734, 68299474, 19807280, 6607933 ####[address] [address] MCHC (RBC) [Mass/Vol] 31.0 g/dL Low 31.4-36.[address] [facility] Comment on above: Performed By: #### 2 882039, 90346299, 35285332, 6521417 ####[address] [address] MCV (RBC) [Entitic vol] 75.7 fL Low 80.0-100.[address] [facility] Comment on above: Performed By: #### 2 981001, 92044816, 13557487, 1782487 ####[address] [address] Platelet mean volume (Bld) [Entitic vol] 9.2 fL Normal 6.4-10.[address] [facility] Comment on above: Performed By: #### 2 655203, 59959896, 47192624, 8815312 ####[address] [address] Platelets (Bld) [#/Vol] 184.0 E9/L Normal 150.0-500.[address] [facility] Comment on above: Performed By: #### 2 949269, 94794284, 80799653, 2384493 ####[address] [address] RBC (Bld) [#/Vol] 3.4 E12/L Low 4.3-5.[address] [facility] Comment on above: Performed By: #### 2 279237, 19316924, 96430292, 2967616 ####[facility] [address] [place] [address] WBC corrected for nucl RBC Auto (Bld) [#/Vol] 6.6 E9/L Normal 4.0-11.[address] [facility] Comment on above: Performed By: #### 2 758335, 73958408, 18812627, 3306205 ####[facility] [address] [place] [address] Capillary Glucose POCon 01-21 Glucose [Mass/Vol] 120 mg/dL High 55-[address] [facility] Comment on above: Result Comment: Emmanuelle saldivar RN/ Performed By: #### 1 3832678, 4893728, 36635778 #### [facility] [address] [place] [address] Insurance Correspondence Off iceon 02-18-2023 Insurance Correspondence Office [id number]#1.[address] [facility] Interdisciplinary Note - Ron e Manageron 02-18-2023 Interdisciplinary Note - Statement Processor Pt is awake in bed, previously rounded with Dr. Canales. Pt is aware of plan to stay in hospital, possible transfer to tertiary facility due to continued GI bleeding. Pt is from [facility] and plan to return at [place]. PT/OT= HH, pt states he does not need, has enough assistance at assisted living. Pt is on 3L oxygen, does not have home oxygen . PCP verified and insurance information reviewed and DME discussed. Contact information provided and white board updated. Normal [facility] Comment on above: Result Comment: Elec tronically Signed By: Sarah SPRAGUE, Jojo\.johana\Date and Time Signed: 02/18/23 10:36 EDT Monitor Recordon 02-18-2023 Monitor Record [id number]#1.[address] [facility] Monitor Record [id number]#1.[address] [facility] Monitor Record [id number]#1.[address] [facility] Morphon 02-18-2023 Anisocytosis Ql (Bld) Present Normal [facility] Comment on above: Order Comment: Order Added by Discern Expert. Performed By: #### 2 897198, 99402562, 25097689, 2463911 ####[facility] [address] [place] [address] Hypochromia Auto Ql (Bld) Present Normal [facility] Comment on above: Order Comment: Order Added by Discern Expert. Performed By: #### 2 197319, 24645295, 43382776, 6174503 ####[facility] [address] [place] [address] Microcytes Ql (Bld) Present Normal [facility] Comment on above: Order Comment: Order Added by Discern Expert. Performed By: #### 2 046076, 04944801, 39884165, 9792483 ####[facility] [address] [place] [address] Morphology Jose (Bld) [Interp] See Morphology Normal [facility] Comment on above: Order Comment: Order Added by Discern Expert. Performed By: #### 2 602556, 83590471, 89212486, 7246982 ####[facility] [address] [place] [address] Ovalocytes LM Ql (Bld) Present Normal [facility] Comment on above: Order Comment: Order Added by Discern Expert. Performed By: #### 2 443230, 17244537, 21858613, 4027212 ####[facility] [address] [place] [address] Polychromasia LM Ql (Bld) Present Normal [facility] Comment on above: Order Comment: Order Added by Discern Expert. Performed By: #### 2 200789, 38188095, 25757376, 2468069 ####[facility] [address] [place] [address] Outside Cardiovascularon Outside Cardiovascular [id number]#1.00T IFF Normal [facility] Progress Note-Nurseon 2022 Progress Note-Nurse This [...] of the patient and Dr. Canales informed. Normal [facility] Progress Note-Physicianon Progress Note-Physician Patient: THANH [...] At risk for falls / SNOMED CT 016882437 / Possible Problem added when Risk for Falls Careplan was initiated. Carotid stenosis, bilateral / SNOMED CT 0933982358 / Confirmed Smoker / SNOMED CT 610853077 / Confirmed Added secondary to documentation in Social History. Histories Procedure history: EGD - esophagogastroduodenosc opy (4160386302) on 02/16/2023 at 87 Years. Cardiac pacemaker (76764188). Social History Social & Psychosocial Habits Alcohol [...] adequate air exchange. Cardiovascular: Regular rhythm. Plan [place] [employer] Anesthesi[employer] (ASA) physical status classification: Class III, E. Anesthetic Preoperative Plan: Anesthesia General. [facility] Comment on above: Result Comment: Elec tronically Signed By: Boom Kolb Jr, DO\Sarabr\Date and Time Signed: 02/18/23 16:29 EDT Progress [...] when meets criteria ( To home ). [facility] Comment on above: Result Comment: Elec tronically Signed By: Boom Kolb Jr, DObr\Date and Time Signed: 02/18/23 16:29 EDT Progress [...] mg/dL (02/18/23 06:06:00) BUN: 23 mg/dL High (02/18/23 06:06:00) Creatinine: 1.7 mg/dL High (02/18/23 06:06:00) eGFR: 39 mL/min/1.73 m2 Low (02/18/23 06:06:00) BUN/Creat Ratio: 14 (02/18/23 06:06:00) Sodium Lvl: 143 mmol/L (02/18/23 06:06:00) Potassium Lvl: 4 mmol/L (02/18/23 06:06:00) Chloride: 114 mmol/L High (02/18/23 06:06:00) CO2: 28 mmol/L (02/18/23 06:06:00) AGAP: 5 [...] 40 mg IV push twice daily Ordered: [facility] Care/Day Moderate 35 Minutes 72775 2. GI bleed (K92.2: Gastrointestinal hemorrhage, unspecified) H&H did drop overnight but there is no overt signs of GI bleed and vital signs are stable Continue IV PPI as above Continue to hold aspirin and Eliquis Ordered: [facility] Care/Day Moderate 35 Minutes 41774 3. SUMMER (acute kidney injury) (N17.9: Acute kidney failure, unspecified) Creatinine did bump up to 1.7 Ordered: [facility] Care/Day Moderate 35 Minutes 77849 4. Elevated troponin (R79.89: Other specified abnormal findings of blood chemistry) May be secondary to type II ischemia secondary to acute blood loss; stable Ordered: [facility] Care/Day Moderate 35 Minutes 05623 5. Dyspnea (R06.00: Dyspnea, unspecified) On 3 L nasal cannula satting into the mid to upper 90s Ordered: [facility] Care/ (more content not included)... Normal [facility] Comment on above: Result Comment: Elec tronically Signed By: Sourav Canales DO\jhoana\Date and Time Signed: 02/18/23 14:14 EDT eGFRon 02-18-2023 GFR/1.73 sq M.predicted among non-blacks MDRD (S/P/Bld) [Vol rate/Area] 39 mL/min/1.73 m2 Low >=[address] [facility] Comment on above: Order Comment: Order added by Discern Expert. Result Comment: Cylinder Head Assembler jese kidney disease could be indicated at eGFR's of less than 60 mL/min/1.73m2. Kidney failure is indicated at less than 15 mL/min/1.73m2. Performed By: #### 2 765960, 92365306, 49569252, 2377232 ####[facility] [address] [place] [address] BMPon 02-17-2023 Anion gap [Moles/Vol] 8 mmol/L Normal 6-[address] [facility] Comment on above: Performed By: #### 1 9200428, 2811587, 61513724 #### [facility] [address] [place] [address] Calcium [Mass/Vol] 8.5 mg/dL Low 8.9-11.[address] [facility] Comment on above: Performed By: #### 1 2661609, 5023035, 64490593 #### [facility] [address] [place] [address] Chloride [Moles/Vol] 117 mmol/L High 101-[address] [facility] Comment on above: Performed By: #### 1 7945411, 0466707, 16205398 #### [facility] [address] [place] [address] CO2 [Moles/Vol] 26 mmol/L Normal 21-[address] [facility] Comment on above: Performed By: #### 1 9769195, 7738429, 75586076 #### [facility] [address] [place] [address] Creatinine [Mass/Vol] 1.6 mg/dL High 0.5-1.[address] [facility] Comment on above: Performed By: #### 1 2388246, 6625033, 09284392 #### [facility] [address] [place] [address] Glucose [Mass/Vol] 96 mg/dL Normal 55-[address] [facility] Comment on above: Result Comment: If t his glucose result represents a fasting glucose, interpretation should refer to the following reference range: 55-99 mg/dL Performed By: #### 1 4799319, 0682396, 72490154 #### [facility] [address] [place] [address] Potassium [Moles/Vol] 3.7 mmol/L Normal 3.5-5.[address] [facility] Comment on above: Performed By: #### 1 8176107, 2094706, 40008786 #### [facility] [address] [place] [address] Sodium [Moles/Vol] 147 mmol/L High 135-[address] [facility] Comment on above: Performed By: #### 1 9812635, 4314012, 17671982 #### [facility] [address] [place] [address] Urea nitrogen [Mass/Vol] 23 mg/dL High 5-[address] [facility] Comment on above: Performed By: #### 1 2428268, 1218114, 75772156 #### [facility] [address] [place] [address] Urea nitrogen/Creatinine [Mass ratio] 14 No Units Normal 10-[address] [facility] Comment on above: Performed By: #### 1 5698142, 2165692, 50196451 #### [facility] [address] [place] [address] Consenton 02-17-2023 Consent [id number]#1.[address] [facility] Hct & Hgbon 02-17-2023 Hematocrit (Bld) [Volume fraction] 26.8 % Low 37.7-49.[address] [facility] Comment on above: Performed By: #### 1 9021616, 2101513, 69476342 #### [facility] [address] [place] [address] Hemoglobin (Bld) [Mass/Vol] 8.4 g/dL Low 13.5-17.[address] [facility] Comment on above: Performed By: #### 1 4926140, 2431506, 99505512 #### [facility] [address] [place] [address] Interdisciplinary Note - Ron e Manageron 02-17-2023 Interdisciplinary Note - Statement Processor CRM to room to discuss DC Planning. Patient is awake , alert and oriented. Patient daughter is in room. They prefer [facility] to transport if they can at [place]. [...] need weaned off oxygen or desat at DC Normal [facility] Comment on above: Result Comment: Elec tronically Signed By: Natalya Rivas\.br\Date and Time Signed: 02/17/23 10:08 EDT Interdisciplinary Note - Maggie n 02-17-2023 Interdisciplinary Note - OT OT [facility] six clicks score 17/24 = SNF vs HH services. Patient requires Min A w/ LE self care and cga w/ transfers. Pt is mildly impulsive w/ functional tasks. Inpatient OT services to follow daily to progress as tolerates w/ self help tasks and transfers. Normal [facility] Main OR PACU I Recordon 01-21 Main OR PACU I Record PACU Phase I Document Type FT Summary Primary Physician: Stefan Israel MD Finalized Date/Time: 02/17/23 09:19:24 Pt. Name: THANH COLEMAN/Sex: 1935 Male Med Rec #: [id number] Physician: Lavell Siegel DO Financial #: [id number] Pt. Type: I Room/Bed: [place] [address] Admit/Disch: 02/15/23 13:33:36 - Institution: Case Times [...] Signed By: Darlin Rubi RN 02/17/23 09:19 [facility] Main OR Preoperative Recordo n 02-17-2023 Main OR Preoperative Record Holding Area Document Type FT Summary Primary Physician: Stefan Israel MD Finalized Date/Time: 02/17/23 06:54:52 Pt. Name: THANH COLEMAN /Sex: 1935 Male Med Rec #: [id number] Physician: Lavell Siegel DO Financial #: [id number] Pt. Type: I Room/Bed: [place] [address] Admit/Disch: 02/15/23 13:33:36 - Institution: Case Times [...] bedside nurse, pt finished colon prep by 6379, stool is liquid green /,RN Finalized By: Kerry Mares RN Document Signatures Signed By: Kerry Mares RN 02/17/23 06:[address] [facility] Message from Medicareon 01-21 Message from Medicare [id number]#1.00TI FF Normal [facility] Monitor Recordon 02-17-2023 Monitor Record [id number]#1.[address] [facility] Monitor Record [id number]#1.[address] [facility] Monitor Record [id number]#1.[address] [facility] Monitor Record [id number]#1.[address] [facility] Monitor Record [id number]#1.00TI FF Normal [facility] Monitor Record [id number]#1.[address] [facility] Monitor Record [id number]#1.[address] [facility] Operative Reporton 3 Operative Report Patient: CHRISS COLEMAN Age: 87 years Sex: Male : 1935 Associated Diagnoses: None Author: Stefan Israel MD Pre-Procedure Procedure Date 02/17/2023 09:34:00 . Procedure Type: Colonoscopy. Procedure provider Performed by Stefan Israel MD. Current history and physical Documented on chart. Colonoscopy ([id number]) on 02/17/2023 at 87 Years. EGD - esophagogastroduodenosc opy (9459816878) on 02/16/2023 at 87 Years. Cardiac pacemaker (53667438).. Past Medical History No active or resolved past medical history items have been selected or recorded.. Family History Diabetes mellitus type 2 Father Alcoholism Father . Procedure History Colonoscopy ([id number]) on 02/17/2023 at 87 Years. EGD - esophagogastroduodenosc opy ([id number]) on 02/16/2023 at 87 Years. Cardiac pacemaker ([id number]).. Colorectal neoplasm risk assessment Average risk. Informed [...] BID, # 60 EA, Refills(s) 5, Pharmacy: [facility] #37, 175, cm, 01/03/23 13:27:00 EDT, Height/Length Dosing, 88.4, kg, 01/03/23 13:27:00 EDT, Weight Dosing Pantoprazole [address] Tab: 40 mg = 1 tab(s), Oral, Daily, # 30 tab(s), Refills(s) 5, Pharmacy: [facility] #37, 175, cm, 01/03/23 13:27:00 EDT, Height/Length Dosing, 88.4, kg, 01/03/23 13:27:00 EDT, Weight Dosing atorvastatin 40 mg Tab: 40 mg = 1 tab(s), Oral, Daily, # 30 tab(s), Refills(s) 5, Pharmacy: [facility] #37, 175, cm, 01/03/23 13:27:00 EDT, Height/Length [...] bowel pr (more content not included)... Normal [facility] Comment on above: Result Comment: Elec tronically Signed By: Lindy PILLAI, Stefan Kendrick\.br\Date and Time Signed: 02/17/23 09:38 EDT Progress Note-Physicianon Progress Note-Physician Subjective S/P colonoscopy [...] artery disease (I25.10: Atherosclerotic heart disease of [place] coronary artery without angina pectoris) Status post stent placement; maintain Lipitor 13. History of cerebrovascular accident (Z86.73: Personal history of transient ischemic attack (TIA), and cerebral infarction without res (more content not included)... Normal [facility] Comment on above: Result Comment: Elec tronically Signed By: Sourav Canales DO\.br\Date and Time Signed: 02/17/23 13:34 EDT Progress Note-Physician Colonoscopy complete, no obvious [...] a center with interventional radiology capability Normal [facility] Comment on above: Result Comment: Elec tronically Signed By: Stefan Israel MD\.br\Date and Time Signed: 02/17/23 09:40 EDT eGFRon 02-17-2023 GFR/1.73 sq M.predicted among non-blacks MDRD (S/P/Bld) [Vol rate/Area] 41 mL/min/1.73 m2 Low >=59 [facility] Comment on above: Order Comment: Order added by Discern Expert. Result Comment: Cylinder Head Assembler jese kidney disease could be indicated at eGFR's of less than 60 mL/min/1.73m2. Kidney failure is indicated at less than 15 mL/min/1.73m2. Performed By: #### 1 [id number] #### [facility] [address] [place], [place] [id number] [facility] 01-14-2023 [facility] Telephone ([facility]) THANH COLEMAN ([id number]) 1935 M Date Time Provider Department 01/14/23 BOO MARINA [facility] During your visit today, we recorded the [...] Asymptomatic LV dysfunction [I51.9] 08/10/2015 History of WY (myocardial infarction) [I25.2] 08/10/2015 Stenosis of right [...] *12/30/2020 Hypertensive heart and kidney disease with ship's officer*07/02/2021 Palpitations [R00.2] 12/23/2019 Hypertensive chronic kidney disease [...] 10/08/2022 Weight (more content not included)... Normal [facility] CNOVon 12-16-2022 CNOV Office Visit (FAMSTP ) THANH COLEMAN ([id number]) 1935 M Date Time Provider Department 12/16/22 11:00 AM LUKE SUN FAMSTP During your visit today, we recorded the following information about you: Pulse Respiration Blood pressure Weight 91/minute 18/minute 120/78 86.7 kg Height 1.803 m Luke Sun DO 12/16/2022 1:59 PM Signed Subjective Thanh Coleman is a 87 year old male. Chief Complaint: Patient presents with: New Patient: New pt here to establish care Hospital follow up from [facility] dishjonathanged last FridayDEC [address] 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 Dyslipidemia Tobacco Use Disorder H/O Abdominal Aortic Aneurysm Repair Chronic Obstructive Pulmonary Disease (Hcc) Essential Hypertension Stage 3b Chronic Kidney Disease ([facility]) Cad (Coronary Artery Disease) Neuropathy Thrombocytopenia ([facility]) Hypertriglyceridemia Low Hdl (Under 40) Copd (Chronic Obstructive Pulmonary Disease) With Chronic Bronchitis ([facility]) 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 Atrial Flutter ([facility]) Chronic Combined Systolic and Diastolic Congestive Heart Failure ([facility]) Tinea Corporis Tick Bite of Abdomen Actinic [...] Foot, Bilateral Eyelid Lesion Atrial Fibrillation, Persistent ([facility]) Vitamin D Deficiency Vitamin B12 Deficiency 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 Including [place] Memory Loss, Short Term Gait Disorder Muscle Weakness Weight Loss Pvd (Peripheral Vascular Disease) ([facility]) Cva (Cerebral Vascular Accident) ([facility]) Atherosclerosis of Both Carotid Arteries Facial Weakness Abdominal Aortic Aneurysm (Aaa) ([facility]) Bradycardia Pacemaker Battery Depletion PAST MEDICAL HISTORY Diagnosis Date Anticoagulant long-term use Aortic aneurysm ([facility]) s/p repair AAA Atrial flutter ([facility]) 03/03/2020 CAD (coronary artery disease) pacemaker, hyperlipidemia, hyperlipidemia Chronic combined systolic and diastolic congestive heart failure ([facility]) 09/26/2020 CKD (chronic kidney disease) stage 3, GFR 30-59 ml/min ([facility]) 12/2015 COPD (chronic obstructive pulmonary disease) ([facility]) Essential hypertension 06/19/2016 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 08/10/2015 H/O right heart catheterization History of WY (myocardial infarction) 08/10/2015 Hyperlipidemia, unspecified 12/23/2019 Hypertensive [...] VESSEL 3-2008 x 2, drug eluting ILIAC PRINTED CIRCUIT LAYOUT TAPER W/WO STENT PACEMAKER DUAL CHAMBER TIER 0 [...] No Drug (more content not included)... Normal [facility] EMERGENCY REPORTon 3 EMERGENCY REPORT [facility] EMERGENCY ROOM REPORT NAME ACCOUNT SEX AGE ADMIT DISCHARGE PT MED. RECORD# NUMBER DATE DATE TYPE THANH COLEMAN [id number] Carina 87 12/05/22 3 [id number] ROOM: [facility] DATE OF : 1935 DICTATING PHYSICIAN: [...] MEDICAL HISTORY: Hypertension, hyperlipidemia, cardiac disease, previous WY and pacemaker. PAST SURGICAL HISTORY: No recent [...] discussed the case with Dr. Morejon from [facility]. The patient was accepted in transfer there to [facility]. DIAGNOSES: 1. Stroke with left facial droop. 2. Hypertension. 3. Carotid disease. 4. Tobacco use. PLAN/DISPOSITION: I have explained to the patient he needs transfer to prevent possible further stroke. He needs (more content not included)... Normal [facility] CNOVon 12-12-2022 [facility] THANH COLEMAN ([id number]) 1935 M Date Time Provider Department 12/12/22 1:00 PM ZORAIDA HODGE During your visit today, we recorded the following information about you: Pulse Respiration Blood pressure Weight 90/minute 20/minute 128/80 87.8 kg Zoraida Hodge APRN.RETAIL WAREHOUSE ASSOCIATE 12/13/2022 9:40 AM Signed Chief Complaint Patient presents with: Hospital F/U: Stroke, Dementia, needs 11/11 home care HPI Thanh Coleman is a 87 year old male who presents here today for Above Complaints.. Today: Was admitted to [facility] for stroke, has 75% blockage in his [...] Short term memory is 1/2 and 1/2. 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 Is [...] months and was reporting in her paperwork. television maintenance worker was aware as well and family was not informed. Neighbor was controlling and made it difficult for family to be involved in patient's care. Family is requesting guardianship. Was recommended that he move to assisted living and needs help making sure he takes his medications, etc. Seeing heart doctor in 4 days-Dr. Sun in [place]. Past medical history, appointments, medications, allergies reviewed. Previous Medical History PAST MEDICAL HISTORY Diagnosis Date Anticoagulant long-term use Aortic aneurysm ([facility]) s/p repair AAA Atrial flutter ([facility]) 03/03/2020 CAD (coronary artery disease) pacemaker, hyperlipidemia, hyperlipidemia Chronic combined systolic and diastolic congestive heart failure ([facility]) 09/26/2020 CKD (chronic kidney disease) stage 3, GFR 30-59 ml/min ([facility]) 12/2015 COPD (chronic obstructive pulmonary disease) ([facility]) Essential hypertension 06/19/2016 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 08/10/2015 H/O right heart catheterization History of WY (myocardial infarction) 08/10/2015 Hyperlipidemia, unspecified 12/23/2019 Hypertensive [...] VESSEL 3-2008 x 2, drug eluting ILIAC PRINTED CIRCUIT LAYOUT TAPER W/WO STENT PACEMAKER DUAL CHAMBER TIER 0 [...] HFA (VENTOL (more content not included)... Normal [facility] Rissa 12-12-2022 [facility] Telephone ([facility]) VIRGINIATHANH Shelton ([id number]) 1935 M Date Time Provider Department 12/12/22 CHERY FREITAS During your visit today, we recorded the following information about you: Chery Freitas, BJ 12/12/2022 3:49 PM Signed Andre called and briefly spoke with patient daughter Tiffany. Tiffany asks that Sw reach back out to her in the morning. Tiffany reports that she is driving home and there is high water in some areas, so wants to watch where she is going. Andre will try call again tomorrow morning. Chery Freitas, PRESIDENT & CEO [employer] 12/13/2022 10:21 AM Signed Andre spoke with patient daughter Tiffany about older adult programs. Tiffany notes that patient is staying with her right now in [place]. Patient has been a resident of [place], until now going to [place]. Tiffany notes that patient reports that he would like to be located between [place] and her sister Peggy. [place] would be in between. Tiffany reports that she has been able to stucco worker doing her medical billing. Concerns from patient stroke: falls/memory impairment. Andre and Tiffany discussed that some AL accept Medicaid/Waiver upon entry. Tiffany and Andre also discussed Guardianship and probate court. Discussed benefits by utilizing Elder Law Hearing Aid Specialist. Tiffany notes that one of her sisters used to be patient POLesli. This sister though now does not have contact with family. Andre discussed with Tiffany that Bilingual [employer] also may provide assistance for guardianship geriatric personal care aide needs. Andre provided Tiffany with AAA 9 phone number for [facility]. Patient has been [facility] resident and this would be a good [...] Asymptomatic LV dysfunction [I51.9] 08/10/2015 History of [place]Y (myocardial infarction) [I25.2] 08/10/2015 Stenosis of right [...] 3 c (more content not included)... Normal [facility] CASE MANAGEMon 12-10-2022 CASE MANAGEM HNO ID: [id number] Author: Mulu Willoughby RN Service: ? Author [...] 12/10/22 Destination: home Handoff Communication: Handoff to: [employer] Agent [employer] Agent Name/Phone: Dr Marina Additional Information: N/A Discharge Information Row Name Admission (Current) from 12/06/2022 in [facility] PEDS/ADULT Medical Follow-Up Appointment Specialty primary care Provider Name Dr Luke Sun Address [address] [place] [address], [place] [address] Appointment Date 12/16/22 Appointment Time 10:45AM Additional Instructions please arrive 15 minutes early, bring photo ID, insurance card, discharge instructions. Patient discharged this date home with daughter, Michelle, Mesha to transport home this date. Daughter, Michelle, resides in [place], [place], so family requested this CM to set up new PCP in [place], [place]. CM set patient up with new PCP. Since patient will be set up with new PCP, if family wanting skilled home care, home care will need set up through new PCP, or set up through [facility] casey saw operator since [facility] CM is the one who has set up current [facility] services. Since patient going from his home in [place] to [place], his current HHC company does not service the [place] area so HHC unable to be set up. Family notified. Family also provided assisted living facility list per request. Medications sent to [facility] outpatient pharmacy for family to bean picker machine operator on the way out of the hospital. No further needs noted. Case closed. SIGNATURE: Mulu Willoughby RN PATIENT NAME: Thanh Coleman DATE: December 10, 2022 TIME: 12:40 PM CONTACT #: [id number] [facility] 12-10-2022 [facility] HNO ID: [id number] Author: Rudy Bang MD Service: Hospital Medicine [...] Team: Attending Provider: Rudy Bang MD Attending: CHAGO COLBY Consulting: Young Magallon MD Attending: [...] He was transferred as an admission from [facility], where he went with a chief complaint of left-sided facial droop and slurred speech.In the ER, initial NIH was at 3. Teleneurology evaluated the patient and felt that the patient needed to be transferred to higher level of care for further neurological work-up. Therefore he was transferred to [facility]. CT brain showed no acute abnormalities. CTA head and neck showed mild irregular narrowing at right M1 segment of MCA. There was also hard plaque present at the carotid bulb and origin of the ICA bilaterally. 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 Here at [facility], the patient was evaluated by neurology. Per neurology, the patient is unable to get MRI, due to iliac stents. However, it is felt that this is unlikely to drying rack changer. It is thought that he had TIA [...] taking these medicat (more content not included)... [facility] THERAPY NTon 12-10-2022 THERAPY NT HNO ID: [id number] Author: Tracee Allen PTA Service: Physical Therapy Author Type: Washer And Crusher Tender Type: Therapy (PT/OT/Speech/Resp) Filed: 12/10/2022 12:59 PM Note Text: Attestation signed by Cristal Salazar PT at 12/10/2022 1:19 PM I reviewed and agree with the documentation corresponding to this therapy visit. SIGNATURE: Cristal Salazar PT DATE: December 10, 2022 TIME: 1:19 PM Physical Therapy Treatment SERVICE DATE: 12/10/2022 SERVICE TIME: 937 to 1010 ROOM: [place] [address] Total Joint Replacement Discharge Readiness: Not Applicable [...] Patient Lives With: Self/Alone Assistance Available: PRN, Learning And Development Intern Entry To Home: No Stairs Number Of Stairs To Bed/Bath: 0 Tub/Shower Type: tub/shower combo Laundry: aide completes Equipment Owned: Cane Prior Functional Level: Within Functional Limits Prior Functional Level Comments: pt reports independence with ADLs, STORYBOARD ARTIST completes IADLs, pt denies device use, denies [...] Unsteadiness on feet Interventions Provided: Therapeutic Activity (71020), (more content not included)... Normal [facility] CASE MANAGEMon 12-09-2022 CASE MANAGEM HNO ID: [id number] Author: Mulu Willoughby, RN Service: ? Author Type: Registered Nurse Type: Care Mgt Progress Note Filed: 12/09/2022 1:59 PM Note Text: CARE MANAGEMENT PROGRESS NOTE SERVICE DATE: 12/09/2022 SERVICE TIME: 1:48 PM LOS: 3 days Patient admitted from home alone for CVS workup d/t left facial droop, slurred speech. Neuro and vascular consults following. Pending echo. PT/OT recommending [facility] CM [facility] to find phone number for daughter, Ana Maria Church, as per daughterPeggy, Ana Maria has medical POA but Ana Maria has been unable to be found for 10+ years, last known where abouts were in [place]. [facility] CM phone numbers as follows; [phone] (Left VM, went straight to VM) [phone] CM called all numbers and all were [...] explained options of patient returning home with [facility] as previous to admission, or going home with a family member to manage medications/medical issues. Family concerned about patient returning home alone and will have discussion as to what is the best option. CM recommended family seek an elder law geriatric personal care aide to seek potential guardianship of patient due to confusion and also assisted living facility placement as patient has [place] medicaid with likely waiver program to pay for [facility]. Family to make decision on dc [...] SIGNATURE: Mulu Willoughby RN PATIENT NAME: Thanh Yee [place] DATE: December 09, 2022 TIME: 1:48 PM PAGER/CONTACT #: [phone] [facility] 12-09-2022 CNPN Telephone ([facility]) VIRGINIATHANH Shelton ([id number]) 1935 Date Time Provider Department 12/09/22 BOO MARINA [facility] During your visit today, we recorded the following information about you: Carina Keyes RN 12/11/2022 2:46 PM Addendum Daughter, Michelle Quach, reports patient was transported via ambulance to [facility] early Friday morning. [place] transferred patient to [facility] to r/o stroke. CT showed patient had stroke and blockage in the neck. MRI was not done b/c patient has stents, but he, or family do not know where the stents are. [facility] was doing an ECHO today when [...] to be addressed. Reports patient has a [facility] casey saw operator, and [facility] home casey saw operator. Reports the biggest problem is patient is not taking his medications correctly. Reports patient is confused and doesn't always know his family members. Reports patient is able to walk and able to take himself to the bathroom. Scheduled hosp f/u appt with Rug Cutter Helper on , this week. Ekta Mandujano APRN.MADY 12/12/2022 2:00 PM Signed Being addressed in office today. Closing this encounter. Thank you, Ekta Mandujano APRN.RETAIL WAREHOUSE ASSOCIATE Allergies As of Date: 12/09/2022 Noted Allergy Reaction DUST 05/29/2017 14 - Other: See Comments GRASS POLLEN 05/29/2017 14 - Other: See Comments MOLD SPORES 05/29/2017 14 - Other: See Comments Date Reviewed: 12/09/2022 Reviewed by: Maribel Liu RN - Fully Assessed Reason for Visit: [facility] 5 Main follow up [Other] [...] Asymptomatic LV dysfunction [I51.9] 08/10/2015 History of WY (myocardial infarction) [I25.2] 08/10/2015 Stenosis of right [...] 04/08/2018 Albuminuria (more content not included)... Normal [facility] ECHOon 12-09-2022 Echocardiography Echocardiography Report: Transthoracic Echo [facility] Date of service: 12/09/2022 1:58:22 PM Ordering [...] * * Final * * * CC [facility] [facility] : [id number] SUID Normal [facility] THERAPY NTon 12-09-2022 THERAPY NT HNO ID: [id number] Author: Sydnee Domingo PTA Service: Physical Therapy Author Type: Washer And Crusher Tender Type: Therapy (PT/OT/Speech/Resp) Filed: 12/09/2022 1:41 PM Note Text: Attestation signed by Young Henry, PT at 12/09/2022 6:19 PM I reviewed and agree with the documentation corresponding to this therapy visit. SIGNATURE: Young Henry, PT DATE: December 09, 2022 TIME: 6:19 PM PHYSICAL THERAPY MISSED VISIT SERVICE DATE: 12/09/2022 SERVICE TIME: 1338 to 1338 ROOM: [id number] Patient not seen due to Test / Procedure (Echo). SIGNATURE: Sydnee Domingo PTA PATIENT NAME: Thanh Coleman DATE: December 09, 2022 TIME: 1:41 PM [facility] THERAPY NTon 12-08-2022 THERAPY NT HNO ID: [id number] Author: Jayjay Nixon PTA Service: Physical Therapy Author Type: Washer And Crusher Tender Type: Therapy (PT/OT/Speech/Resp) Filed: 12/08/2022 9:38 AM Note Text: Attestation signed by Nataliya Flower PT at 12/08/2022 12:16 PM I reviewed and agree with the documentation corresponding to this therapy visit. SIGNATURE: Nataliya Flower PT DATE: December 08, 2022 TIME: 12:16 PM Physical Therapy Treatment SERVICE DATE: 12/08/2022 SERVICE TIME: 921 to 933 ROOM: [id number] Total Joint Replacement Discharge Readiness: Not Applicable [...] Patient Lives With: Self/Alone Assistance Available: PRN, Learning And Development Intern Entry To Home: No Stairs Number Of Stairs To Bed/Bath: 0 Tub/Shower Type: tub/shower combo Laundry: aide completes Equipment Owned: Cane Prior Functional Level: Within Functional Limits Prior Functional Level Comments: pt reports independence with ADLs, STORYBOARD ARTIST completes IADLs, pt denies device use, denies [...] Diagnosis: Reduced mobility-other Interventions Provided: Gait Training (41922) Gait Training (94231 (more content not included)... Normal [facility] Basic metabolic 2000 panelon 12-07-2022 Anion gap [Moles/Vol] 9 mmol/L Normal -16 [facility] Comment on above: Order Comment: Fariba vivar Type: BLOOD SPECIMEN Ordering Facility: [facility] Address: [address] [place] [address] Performed By: #### 5 7021-8, 85571-3 #### [facility] CLIA [id number] [address] [place] [address] [place] Calcium [Mass/Vol] 9.1 mg/dL Normal 8.5-10.5 [facility] Comment on above: Order Comment: Fariba vivar Type: BLOOD SPECIMEN Ordering Facility: [facility] Address: [address] [place] [address] Performed By: #### 5 7021-8, 24109-0 #### [facility] CLIA [id number] [address] [place] [address] [place] Chloride [Moles/Vol] 109 mmol/L High 98-107 [facility] Comment on above: Order Comment: Fariba vivar Type: BLOOD SPECIMEN Ordering Facility: [facility] Address: [address] [place] [address] Performed By: #### 5 7021-8, 12280-0 #### [facility] CLIA [id number] [address] [place] [address] [place] CO2 [Moles/Vol] 26 mmol/L Normal 21-32 [facility] Comment on above: Order Comment: Speci cb Type: BLOOD SPECIMEN Ordering Facility: [facility] Address: [address] [place] [address] Performed By: #### 5 7021-8, 72763-1 #### [facility] CLIA [id number] [address] [place] [address] [place] Creatinine [Mass/Vol] 1.28 mg/dL Normal 0.50-1.40 [facility] Comment on above: Order Comment: Speci men Type: BLOOD SPECIMEN Ordering Facility: [facility] Address: [address] [place] [address] Result Comment: Cristina ents receiving either N-Acetylcysteine (NAC) or Metamizole prior to venipuncture, may have falsely depressed results. Performed By: #### 5 7021-8, 14103-4 #### [facility] CLIA [id number] [address] [place] [address] [place] [facility] Creatinine and Glomerular filtration rate.predicted panel (S/P/Bld) 54 mL/min/1.73m??? Low >=60 [facility] Comment on above: Order Comment: Fariba vivar Type: BLOOD SPECIMEN [facility] Address: [address] [place] [address] Result Comment: Rosalba mated Glomerular Filtration Rate [...] actual GFR. Performed By: #### 5 7021-8, 98939-0 #### [facility] CLIA [id number] [address] [place] [address] [place] Glucose [Mass/Vol] 90 mg/dL Normal 70-100 [facility] Comment on above: Order Comment: Namitai cb Type: BLOOD SPECIMEN [facility] Address: [address] [id number] Result Comment: The [place] Diabetes [employer] (ADA) provides guidance for cutoff [...] Standards of Medical Care in Diabetes 2016, [employer]. Diabetes Care. 2016.39(Suppl 1). Results may be falsely elevated after the administration of Sulfapyridine. Results may be falsely depressed after the administration of Sulfasalazine. Performed By: #### 5 7021-8, 14822-6 #### [facility] CLIA [id number] [address] [place] [address] [place] Potassium [Moles/Vol] 3.9 mmol/L Normal 3.5-5.1 [facility] Comment on above: Order Comment: Speci men Type: BLOOD SPECIMEN [facility] Address: [address] Performed By: #### 5 7021-8, 86805-0 #### [facility] CLIA [id number] [address] [place] [address] [place] Sodium [Moles/Vol] 144 mmol/L Normal 136-145 [facility] Comment on above: Order Comment: Speci men Type: BLOOD SPECIMEN [facility] Address: [address] Performed By: #### 5 7021-8, 00795-7 #### [facility] CLIA [id number] [address] [place] [address] [place] Urea nitrogen [Mass/Vol] 22 mg/dL Normal 7-26 [facility] Comment on above: Order Comment: Speci men Type: BLOOD SPECIMEN [facility] Address: [address] [address] Performed By: #### 5 7021-8, 86106-7 #### [facility] CLIA [id number] [address] [place] [address] [place] CBC W Auto Differential pane l (Bld)on 12-07-2022 Basophils (Bld) [#/Vol] 0.07 10*3/uL Normal <0.11 [facility] Comment on above: Order Comment: Speci men Type: BLOOD SPECIMEN [facility] Address: [address] [address] Performed By: #### 5 7021-8, 88679-0 #### [facility] CLIA [id number] [address] [place] [address] [place] Basophils/100 WBC (Bld) 1.0 % Normal [facility] Comment on above: Order Comment: Speci men Type: BLOOD SPECIMEN [facility] Address: [address] [address] Performed By: #### 5 7021-8, 55842-8 #### [facility] CLIA [id number] [address] [place] [address] [place] Differential cell count method Nom (Bld) Auto Normal [facility] Comment on above: Order Comment: Speci men Type: BLOOD SPECIMEN [facility] Address: [address] [address] Performed By: #### 5 7021-8, 45912-4 #### [facility] CLIA [id number] [address] [place] [address] [place] Eosinophils (Bld) [#/Vol] 0.33 10*3/uL Normal <0.46 [facility] Comment on above: Order Comment: Speci men Type: BLOOD SPECIMEN [facility] Address: [address] [address] Performed By: #### 5 7021-8, 15893-0 #### [facility] CLIA [id number] [address] [place] [address] [place] Eosinophils/100 WBC (Bld) 4.5 % Normal [facility] Comment on above: Order Comment: Speci men Type: BLOOD SPECIMEN [facility] Address: [address] [place] [address] Performed By: #### 5 7021-8, 58915-0 #### [facility] CLIA [id number] [address] [place] [address] [place] Erythrocyte distribution width (RBC) [Ratio] 13.0 % Normal 11.5-15.0 [facility] Comment on above: Order Comment: Speci men Type: BLOOD SPECIMEN [facility] Address: [address] [place] [address] Performed By: #### 5 7021-8, 00251-1 #### [facility] CLIA [id number] [address] [place] [address] [place] Hematocrit (Bld) [Volume fraction] 37.9 % Low 39.0-51.0 [facility] Comment on above: Order Comment: Speci men Type: BLOOD SPECIMEN Ordering [facility] Address: [address] [place] [address] Performed By: #### 5 7021-8, 44863-9 #### [facility] CLIA [id number] [address] [place] [address] [place] Hemoglobin (Bld) [Mass/Vol] 12.2 g/dL Low 13.0-17.0 [facility] Comment on above: Order Comment: Speci men Type: BLOOD SPECIMEN [facility] Address: [address] [place] [address] Performed By: #### 5 7021-8, 26069-1 #### [facility] CLIA [id number] [address] [place] [address] [place] Immature granulocytes (Bld) [#/Vol] 0.04 10*3/uL Normal <0.10 [facility] Comment on above: Order Comment: Speci men Type: BLOOD SPECIMEN Ordering [facility] Address: [address] [address] Performed By: #### 5 7021-8, 25277-9 #### [facility] CLIA [id number] [address] [place] [address] [place] Immature granulocytes/100 WBC (Bld) 0.6 % Normal [facility] Comment on above: Order Comment: Speci men Type: BLOOD SPECIMEN Order[facility] Address: [address] [address] Performed By: #### 5 7021-8, 51136-8 #### [facility] CLIA [id number] [address] [place] [address] [place] Lymphocytes (Bld) [#/Vol] 1.57 10*3/uL Normal 1.00-4.00 [facility] Comment on above: Order Comment: Speci men Type: BLOOD SPECIMEN Order[facility] Address: [address] [address] Performed By: #### 5 7021-8, 91867-0 #### [facility] CLIA [id number] [address] [place] [address] [place] Lymphocytes/100 WBC (Bld) 21.6 % Normal [facility] Comment on above: Order Comment: Speci men Type: BLOOD SPECIMEN Order[facility] Address: [address] Performed By: #### 5 7021-8, 16760-9 #### [facility] CLIA [id number] [address] [place] [address] [place] MCH (RBC) [Entitic mass] 28.6 pg Normal 26.0-34.0 [facility] Comment on above: Order Comment: Speci men Type: BLOOD SPECIMEN Order[facility] Address: [address] Performed By: #### 5 7021-8, 50543-0 #### [facility] CLIA [id number] [address] [place] [address] [place] MCHC (RBC) [Mass/Vol] 32.2 g/dL Normal 30.5-36.0 [facility] Comment on above: Order Comment: Speci men Type: BLOOD SPECIMEN [facility] Address: [address] [address] Performed By: #### 5 7021-8, 62290-1 #### [facility] CLIA [id number] [address] [place] [address] [place] MCV (RBC) [Entitic vol] 89.0 fL Normal 80.0-100.0 [facility] Comment on above: Order Comment: Speci men Type: BLOOD SPECIMEN [facility] Address: [address] Performed By: #### 5 7021-8, 24395-8 #### [facility] CLIA [id number] [address] [place] [address] [place] Monocytes (Bld) [#/Vol] 0.77 10*3/uL Normal <0.87 [facility] Comment on above: Order Comment: Speci men Type: BLOOD SPECIMEN [facility] Address: [address] Performed By: #### 5 7021-8, 08987-7 #### [facility] CLIA [id number] [address] [place] [address] [place] Monocytes/100 WBC (Bld) 10.6 % Normal [facility] Comment on above: Order Comment: Speci men Type: BLOOD SPECIMEN Order[facility] Address: [address] Performed By: #### 5 7021-8, 86222-6 #### [facility] CLIA [id number] [address] [place] [address] [place] Neutrophils (Bld) [#/Vol] 4.48 10*3/uL Normal 1.45-7.50 [facility] Comment on above: Order Comment: Speci men Type: BLOOD SPECIMEN [facility] Address: [address] [place] [address] Performed By: #### 5 7021-8, 87361-4 #### [facility] CLIA [id number] [address] [place] [address] [place] Neutrophils/100 WBC (Bld) 61.7 % Normal [facility] Comment on above: Order Comment: Speci men Type: BLOOD SPECIMEN Order[facility] Address: [address] [place] [address] Performed By: #### 5 7021-8, 80071-2 #### [facility] CLIA [id number] [address] [place] [address] [place] Nucleated RBC (Bld) [#/Vol] 10*3/uL Normal <0.01 [facility] Comment on above: Order Comment: Speci men Type: BLOOD SPECIMEN Order[facility] Address: [address] [place] [address] Performed By: #### 5 7021-8, 44425-2 #### [facility] CLIA [id number] [address] [place] [address] [place] Nucleated RBC/100 WBC (Bld) [Ratio] 0.0 /100 WBC Normal [facility] Comment on above: Order Comment: Speci men Type: BLOOD SPECIMEN Ordering [facility] Address: [address] [place] [address] Performed By: #### 5 7021-8, 82637-6 #### [facility] CLIA [id number] [address] [place] [address] [place] Platelet mean volume (Bld) [Entitic vol] 11.2 fL Normal 9.0-12.7 [facility] Comment on above: Order Comment: Speci men Type: BLOOD SPECIMEN Order[facility] Address: [address] [id number] Performed By: #### 5 7021-8, 06313-5 #### [facility] CLIA [id number] [address] [place], [place] [address] [facility] [place] Platelets (Bld) [#/Vol] 175 10*3/uL Normal 150-400 [facility] Comment on above: Order Comment: Speci men Type: BLOOD SPECIMEN Order[facility] Address: [address] [place], [place] [address] Performed By: #### 5 7021-8, 92694-4 #### [facility] CLIA [id number] [address] [place] [address] [place] RBC (Bld) [#/Vol] 4.26 10*6/uL Normal 4.20-6.00 [facility] Comment on above: Order Comment: Speci men Type: BLOOD SPECIMEN Order[facility] Address: [address] [place], [place] [address] Performed By: #### 5 7021-8, 70761-1 #### [facility] CLIA [id number] [address] [place] [address] [place] WBC (Bld) [#/Vol] 7.26 10*3/uL Normal 3.70-11.00 [facility] Comment on above: Order Comment: Speci men Type: BLOOD SPECIMEN [facility] Address: [address] [place], [place] [address] Performed By: #### 5 7021-8, 52113-4 #### [facility] CLIA [id number] [address] [place], [place] [address] [facility] CONSULTon 12-07-2022 CONSULT HNO ID: [id number] Author: Sebas Garcia MD Service: Vascular Surgery [...] well known carotid disease previous work-up at [facility] . no films to resume review however are on our system. . 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 CKD (chronic kidney disease) stage 3, GFR 30-59 ml/min ([facility]) 12/2015 COPD (chronic obstructive pulmonary disease) ([facility]) Essential hypertension 06/19/2016 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 08/10/2015 H/O right heart catheterization History of [place] (myocardial infarction) 08/10/2015 Hyperlipidemia, unspecified 12/23/2019 Hypertensive chronic kidney disease with stage 1 through stage 4 chronic kidney disease, or unspecified chronic kidney disease 12/23/2019 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 ([facility]) 07/02/2021 Hypertriglyceridemia Low HDL (under 40) Neuropathy Palpitations 12/23/2019 Permanent atrial fibrillation ([facility]) 08/10/2015 Presence of cardiac pacemaker 08/10/2015 Presence of drug coated stent in left circumflex coronary artery 08/10/2015 Sick sinus syndrome (HCC) 08/10/2015 Stage 3b chronic kidney disease ([facility]) 12/21/2015 TB (pulmonary tuberculosis) Thrombocytopenia ([facility]) PAST SURGICAL HISTORY: PAST SURGICAL HISTORY Procedure Laterality Date ABD AORTIC ANEURYSM REPAIR CORONARY STENT EA VESSEL 3-2008 x 2, drug eluting ILIAC PRINTED CIRCUIT LAYOUT TAPER W/WO STENT PACEMAKER DUAL CHAMBER TIER 0 [...] mL in (more content not included)... Normal [facility] Magnesium SerPl-mCncon 12-07 Magnesium [Mass/Vol] 1.9 mg/dL Normal 1.6-2.6 [facility] Comment on above: Order Comment: Speci men Type: BLOOD SPECIMEN [facility] Address: [address] [place] [address] [place] [address] Performed By: #### 5 7021-8, 51238-9 #### [facility] CLIA [id number] [facility] [place] [address] [facility] THERAPY NTon 12-07-2022 THERAPY NT HNO ID: [id number] Author: Jayjay Nixon PTA Service: Physical Therapy Author Type: Washer And Crusher Tender Type: Therapy (PT/OT/Speech/Resp) Filed: 12/07/2022 9:51 AM Note Text: Attestation signed by Nataliya Flower PT at 12/07/2022 3:52 PM I reviewed and agree with the documentation corresponding to this therapy visit. SIGNATURE: Nataliya Flower, PT DATE: December 07, 2022 TIME: 3:52 PM Physical Therapy Treatment SERVICE DATE: 12/07/2022 SERVICE TIME: 935 ROOM: [address] [address] Total Joint Replacement Discharge Readiness: Not Applicable [...] Patient Lives With: Self/Alone Assistance Available: PRN, Learning And Development Intern Entry To Home: No Stairs Number Of Stairs To Bed/Bath: 0 Tub/Shower Type: tub/shower combo Laundry: aide completes Equipment Owned: Cane Prior Functional Level: Within Functional Limits Prior Functional Level Comments: pt reports independence with ADLs, STORYBOARD ARTIST completes IADLs, pt denies device use, denies [...] Device: None, Wheeled Walker Gait Distance (feet): [id number] Stairs Supervision Stairs Device: Rail Number of [...] exercises including ankle pumps, marches, and LAQ. -HLM: 7: Walk 25 feet or more Learning/Educational [...] INTERVENTIONS: Th (more content not included)... Normal [facility] Urinalysis complete panel (U )on 12-07-2022 Bacteria LM.HPF (Urine sed) [#/Area] None Seen Normal None Seen [facility] Comment on above: Order Comment: Speci men Type: BLOOD SPECIMEN [facility] Address: [address] [address] Performed By: #### 5 7021-8, 19074-7 #### [facility] CLIA [id number] [address] [place] [address] [place] Bilirubin Ql (U) Negative Normal Negative [facility] Comment on above: Order Comment: Speci men Type: BLOOD SPECIMEN [facility] Address: [address] [phone] Performed By: #### 5 7021-8, 20293-7 #### [facility] CLIA [id number] [address] [place] [address] [place] Clarity (Unsp spec) Clear Normal Clear [facility] Comment on above: Order Comment: Speci men Type: BLOOD SPECIMEN [facility] Address: [address] [address] Performed By: #### 5 7021-8, 74712-1 #### [facility] CLIA [id number] [address] [place] [address] [place] Color (U) Yellow Normal Yellow [facility] Comment on above: Order Comment: Speci men Type: BLOOD SPECIMEN [facility] Address: [address] [address] Performed By: #### 5 7021-8, 22465-0 #### [facility] CLIA [id number] [address] [place] [address] Epithelial cells LM.HPF (Urine sed) [#/Area] None Seen Normal [facility] Comment on above: Order Comment: Speci men Type: BLOOD SPECIMEN [facility] Address: [address] [address] Performed By: #### 5 7021-8, 08545-9 #### [facility] CLIA [id number] [address] [place] [address] [place] Glucose Test strip (U) [Mass/Vol] Negative Normal Negative [facility] Comment on above: Order Comment: Speci men Type: BLOOD SPECIMEN [facility] Address: [address] [address] Performed By: #### 5 7021-8, 52801-6 #### [facility] CLIA [id number] [address] [place] [address] [place] Hemoglobin Ql (U) 1+ Abnormal Negative [facility] Comment on above: Order Comment: Speci men Type: BLOOD SPECIMEN [facility] Address: [address] [address] Performed By: #### 5 7021-8, 45958-8 #### [facility] CLIA [id number] [address] [place] [address] [place] Ketones Ql (U) Negative Normal Negative [facility] Comment on above: Order Comment: Speci men Type: BLOOD SPECIMEN [facility] Address: [address] [address] Performed By: #### 5 7021-8, 19204-9 #### [facility] CLIA [id number] [address] [place] [address] [facility] [place] Leukocyte esterase Test strip Ql (U) Negative Normal Negative [facility] Comment on above: Order Comment: Speci men Type: BLOOD SPECIMEN [facility] Address: [address] [address] Performed By: #### 5 7021-8, 25690-5 #### [facility] CLIA [id number] [address] [place] [address] [place] Nitrite Ql (U) Negative Normal Negative [facility] Comment on above: Order Comment: Speci men Type: BLOOD SPECIMEN [facility] Address: [address] [address] Performed By: #### 5 7021-8, 64823-2 #### [facility] CLIA [id number] [address] [place] [address] [place] pH (U) 6.0 [pH] Normal 5.0-8.0 [facility] Comment on above: Order Comment: Speci men Type: BLOOD SPECIMEN [facility] Address: [address] [address] Performed By: #### 5 7021-8, 48306-9 #### [facility] CLIA [id number] [address] [place] [address] [place] Protein (U) [Mass/Vol] Negative Normal Negative [facility] Comment on above: Order Comment: Speci men Type: BLOOD SPECIMEN [facility] Address: [address] [address] Performed By: #### 5 7021-8, 93763-4 #### [facility] CLIA [id number] [address] [place] [address] [place] RBC LM.HPF (Urine sed) [#/Area] 0-3 /HPF Normal 0-3 /HPF [facility] Comment on above: Order Comment: Speci men Type: BLOOD SPECIMEN [facility] Address: [address] [place] [address] Performed By: #### 5 7021-8, 40556-1 #### [facility] CLIA [id number] [address] [place] [address] Specific gravity (U) [Rel density] 1.011 Normal 1.005-1.030 [facility] Comment on above: Order Comment: Speci men Type: BLOOD SPECIMEN [facility] Address: [address] [place] [address] Performed By: #### 5 7021-8, 48651-9 #### [facility] CLIA [id number] [address] [place] [address] Urobilinogen Ql (U) Negative Normal Negative [facility] Comment on above: Order Comment: Speci men Type: BLOOD SPECIMEN [facility] Address: [address] [place] [address] Performed By: #### 5 7021-8, 44230-5 #### [facility] CLIA [id number] [address] [place] [address] [place] WBC LM.HPF (Urine sed) [#/Area] 0-5 /HPF Normal 0-5 /HPF [facility] Comment on above: Order Comment: Speci men Type: BLOOD SPECIMEN [facility] Address: [address] [place] [address] Performed By: #### 5 7021-8, 15606-9 #### [facility] CLIA [id number] [address] [place] [address] [place] CASE MGT INIT Marina 2022 CASE MGT INIT WALDO HNO ID: [id number] Author: Mulu Willoughby RN Service: ? Author Type: Registered Nurse Type: Care Mgt Initial Assessment Filed: 12/06/2022 1:50 PM Note Text: CARE MANAGEMENT: ASSESSMENT AND DISCHARGE PLAN SERVICE DATE: December 06, 2022 SERVICE TIME: 1:15 PM PCP: Boo Marina DO Primary Contact: Extended Emergency Contact Information Primary Emergency Contact: Priyanka Tenorio Mobile Relation: Friend Secondary Emergency Contact: Peggy Harrington Mobile Relation: Daughter Admission Status: Inpatient Insurance Provider: [place] Discharge Planning requested by: Per Department Practice Potential Transition Plans To Be Determined Advance Directives Current Advance Directive: Health Care Power of Hearing Aid Specialist In Chart: No Current Living Arrangements and Support Lives with: Alone Type of Residence: Private Residence (House) Support: Home care staff How do you manage to accomplish the following: Independent: Ambulation;Bathe/Shower ;Dress;Meals/Meal Prep;Going to the bathroom;Transportation to appointments/community Dependent: Medication Management Current Services/Equipment Current Post-Acute Service(s): DME Current DME Type: Other: See Comment (electronic medication dispenser) Discharge Planning Patient Goal(s): General wellness [place] Explained: Are you interested in [...] form children for >6 years CM and RETAIL WAREHOUSE ASSOCIATE with jeramy, Nicole, performed chart review. It was discovered that [facility] through [facility] ([facility] be called [facility] CM got number for a casey saw operator through that [facility] agency through our [facility] liason, Sydni, here at hospital for a Lucinda Araujo ([phone]). There were documents from home care nurse, Ellen Taylor RN, expressing concern for patient mental capacity from 10/08/22 stating Tia [employer] Director Of Analytics calls and states that they are only [...] everything looks good. CM called CM with [facility], Lucinda Araujo ([phone]) in regards to patient. Lucinda explained that patient is active with [facility] once weekly for pill box fills. Ela expressed concern in regards to a neighbor, Nanci, as every time patient pill box alarms, the neighbor comes over to empty the pill box and takes certain pills out because the neighbor feels the medications harm the patient. Lucinda, the casey saw operator, states nursing staff have physically watched the neighbor do this and have educated the neighbor against this. EDUARDO asked Lucinda if APS has been called and she stated, No we didn't think it was that bad yet and we were instructed by her direction home casey saw operator, Balbina, not to call because it won't help. CM instructed Lucinda APS needs called by their [facility] agency as they are mandated reporters and they have witnessed things first hand. Lucinda stated she will call APS today. ____ Around 1200, EDUARDO notified that a daughter, Peggy, showed up to bedside. CM met with daughter whom reported she was called by the neighbor and notified about patient being admitted to hospital. Daughter, Peggy, reports there are 6 siblings including herself, none of which live close, everyone resides >3 hours away (more content not included)... Normal [facility] CBC W Auto Differential pane l (Bld)on 12-06-2022 Basophils (Bld) [#/Vol] 0.06 10*3/uL Normal <0.11 [facility] Comment on above: Order Comment: Speci men Type: BLOOD SPECIMEN [facility] Address: [address] [place] [address] Performed By: #### 5 7021-8, 73373-6 #### [facility] CLIA [id number] [address] [place] [address] [place] Basophils/100 WBC (Bld) 0.8 % Normal [facility] Comment on above: Order Comment: Speci men Type: BLOOD SPECIMEN Ordering [facility] Address: [address] [place] [address] Performed By: #### 5 7021-8, 32419-3 #### [facility] CLIA [id number] [address] [place] [address] [place] Differential cell count method Nom (Bld) Auto Normal [facility] Comment on above: Order Comment: Speci men Type: BLOOD SPECIMEN Ordering [facility] Address: [address] [address] Performed By: #### 5 7021-8, 62263-5 #### [facility] CLIA [id number] [address] [place] [address] [place] Eosinophils (Bld) [#/Vol] 0.35 10*3/uL Normal <0.46 [facility] Comment on above: Order Comment: Speci men Type: BLOOD SPECIMEN [facility] Address: [address] [place] [address] Performed By: #### 5 7021-8, 89976-0 #### [facility] CLIA [id number] [address] [place] [address] [place] Eosinophils/100 WBC (Bld) 4.6 % Normal [facility] Comment on above: Order Comment: Speci men Type: BLOOD SPECIMEN [facility] Address: [address] [place] [address] Performed By: #### 5 7021-8, 73549-3 #### [facility] CLIA [id number] [address] [place] [address] [place] Erythrocyte distribution width (RBC) [Ratio] 13.2 % Normal 11.5-15.0 [facility] Comment on above: Order Comment: Speci men Type: BLOOD SPECIMEN [facility] Address: [address] [place] [address] Performed By: #### 5 7021-8, 36642-0 #### [facility] CLIA [id number] [address] [place] [address] [place] Hematocrit (Bld) [Volume fraction] 40.8 % Normal 39.0-51.0 [facility] Comment on above: Order Comment: Speci men Type: BLOOD SPECIMEN [facility] Address: [address] [place] [address] Performed By: #### 5 7021-8, 41140-8 #### [facility] CLIA [id number] [address] [place] [address] [place] Hemoglobin (Bld) [Mass/Vol] 13.2 g/dL Normal 13.0-17.0 [facility] Comment on above: Order Comment: Speci men Type: BLOOD SPECIMEN [facility] Address: [address] [place] [address] Performed By: #### 5 7021-8, 74006-2 #### [facility] CLIA [id number] [address] [place] [address] [place] Immature granulocytes (Bld) [#/Vol] 0.05 10*3/uL Normal <0.10 [facility] Comment on above: Order Comment: Speci men Type: BLOOD SPECIMEN [facility] Address: [address] [address] Performed By: #### 5 7021-8, 40144-0 #### [facility] CLIA [id number] [address] [place] [address] [place] Immature granulocytes/100 WBC (Bld) 0.7 % Normal [facility] Comment on above: Order Comment: Speci men Type: BLOOD SPECIMEN Order[facility] Address: [address] [address] Performed By: #### 5 7021-8, 57270-0 #### [facility] CLIA [id number] [address] [place] [address] [place] Lymphocytes (Bld) [#/Vol] 1.66 10*3/uL Normal 1.00-4.00 [facility] Comment on above: Order Comment: Speci men Type: BLOOD SPECIMEN Order[facility] Address: [address] [address] Performed By: #### 5 7021-8, 56902-2 #### [facility] CLIA [id number] [address] [place] [address] [place] Lymphocytes/100 WBC (Bld) 21.9 % Normal [facility] Comment on above: Order Comment: Speci men Type: BLOOD SPECIMEN Order[facility] Address: [address] [address] Performed By: #### 5 7021-8, 81212-7 #### [facility] CLIA [id number] [address] [place] [address] [place] MCH (RBC) [Entitic mass] 28.8 pg Normal 26.0-34.0 [facility] Comment on above: Order Comment: Speci men Type: BLOOD SPECIMEN Order[facility] Address: [address] [place] [phone] Performed By: #### 5 7021-8, 14733-2 #### [facility] CLIA [id number] [address] [place] [address] [place] MCHC (RBC) [Mass/Vol] 32.4 g/dL Normal 30.5-36.0 [facility] Comment on above: Order Comment: Speci men Type: BLOOD SPECIMEN Ordering [facility] Address: [address] Performed By: #### 5 7021-8, 34746-1 #### [facility] CLIA [id number] [address] [place] [address] [place] MCV (RBC) [Entitic vol] 89.1 fL Normal 80.0-100.0 [facility] Comment on above: Order Comment: Speci men Type: BLOOD SPECIMEN Ordering [facility] Address: [address] Performed By: #### 5 7021-8, 91064-2 #### [facility] CLIA [id number] [address] [place] [address] [place] Monocytes (Bld) [#/Vol] 0.71 10*3/uL Normal <0.87 [facility] Comment on above: Order Comment: Speci men Type: BLOOD SPECIMEN Ordering [facility] Address: [address] Performed By: #### 5 7021-8, 18176-2 #### [facility] CLIA [id number] [address] [place] [address] [place] Monocytes/100 WBC (Bld) 9.4 % Normal [facility] Comment on above: Order Comment: Speci men Type: BLOOD SPECIMEN Ordering [facility] Address: [address] Performed By: #### 5 7021-8, 07834-2 #### [facility] CLIA [id number] [address] [place] [address] [place] Neutrophils (Bld) [#/Vol] 4.75 10*3/uL Normal 1.45-7.50 [facility] Comment on above: Order Comment: Speci men Type: BLOOD SPECIMEN Order[facility] Address: [address] [address] Performed By: #### 5 7021-8, 08648-7 #### [facility] CLIA [id number] [address] [place] [address] [place] Neutrophils/100 WBC (Bld) 62.6 % Normal [facility] Comment on above: Order Comment: Speci men Type: BLOOD SPECIMEN Order[facility] Address: [address] [place] [address] Performed By: #### 5 7021-8, 11528-0 #### [facility] CLIA [id number] [address] [place] [address] [place] Nucleated RBC (Bld) [#/Vol] 10*3/uL Normal <0.01 [facility] Comment on above: Order Comment: Speci men Type: BLOOD SPECIMEN Order[facility] Address: [address] [place] [address] Performed By: #### 5 7021-8, 39978-5 #### [facility] CLIA [id number] [address] [place] [address] [place] Nucleated RBC/100 WBC (Bld) [Ratio] 0.0 /100 WBC Normal [facility] Comment on above: Order Comment: Speci men Type: BLOOD SPECIMEN Order[facility] Address: [address] [place] [address] Performed By: #### 5 7021-8, 54851-5 #### [facility] CLIA [id number] [address] [place] [address] [place] Platelet mean volume (Bld) [Entitic vol] 11.3 fL Normal 9.0-12.7 [facility] Comment on above: Order Comment: Speci men Type: BLOOD SPECIMEN [facility] Address: [address] Performed By: #### 5 7021-8, 83640-0 #### [facility] CLIA [id number] [address] [place] [address] [place] Platelets (Bld) [#/Vol] 201 10*3/uL Normal 150-400 [facility] Comment on above: Order Comment: Speci men Type: BLOOD SPECIMEN Order[facility] Address: [address] Performed By: #### 5 7021-8, 83062-4 #### [facility] CLIA [id number] [address] [place] [address] [place] RBC (Bld) [#/Vol] 4.58 10*6/uL Normal 4.20-6.00 [facility] Comment on above: Order Comment: Speci men Type: BLOOD SPECIMEN Ordering [facility] Address: [address] [place], [place] [address] Performed By: #### 5 7021-8, 77711-7 #### [facility] CLIA [id number] [address] [place] [address] OF [facility] WBC (Bld) [#/Vol] 7.58 10*3/uL Normal 3.70-11.00 [facility] Comment on above: Order Comment: Speci men Type: BLOOD SPECIMEN [facility] Address: [address] [place], [place] [address] Performed By: #### 5 7021-8, 68423-3 #### [facility] CLIA [id number] [address] [place], [place] [address] [facility] CONSULTon 12-06-2022 CONSULT HNO ID: [id number] Author: Matias Lebron MD Service: Neurology General [...] left-sided facial droop. He was taken to [facility] where head CT was unremarkable. CTA demonstrated 70% stenosis of left ICA and greater than 70% stenosis of right ICA. Also mild narrowing in left M1. He was transferred here for further evaluation. His symptoms seem mostly resolved though he does have mild left nasolabial flattening. Patient does not recall having symptoms yesterday. He lives in [place] thought he was taken directly to a hospital in [place]. He does not know who his grain loader is or where their office is located. He said he knows he has been told he has memory issues but does not think it is an issue. He said it has been a while since he saw his grain loader and that is why he does not remember who exactly they are. 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 Normal [facility] CONSULT HNO ID: [id number] Author: Nicole Muniz, RIDGE.RETAIL WAREHOUSE ASSOCIATE Service: Neurology Stroke Author Type: Nurse Practitioner Type: Consults Filed: 12/06/2022 11:02 AM Note Text: Beach Attendant Note SERVICE DATE: 12/06/2022 SERVICE TIME: 10:10 AM PCP: Boo Marina DO REASON FOR STROKE EVALUATION: facial droop Subjective HPI: 87 year old WM who didn't answer the door for his home health aide yesterday. His neighbor (Priyanka), who lives across the [place], unlocked the door and he was found with left facial weakness and dysarthria. EMS was called. He was transported to [facility] and then transferred here for further evaluation. He continues with left facial weakness. No hemiparesis reported. CTA from [place] obtained yesterday reporting 70% stenosis of the left ICA and greater than 70% stenosis of the right ICA. I called his pharmacy ([facility]) who reported that they ship him blister packs of his medications. Lucinda Araujo RN Clinical Field Representative for his Home Care Agency says they [...] Diagnosis Date Anticoagulant long-term use Aortic aneurysm ([facility]) s/p repair AAA Atrial flutter ([facility]) 03/03/2020 CAD (coronary artery disease) pacemaker, hyperlipidemia, hyperlipidemia Chronic combined systolic and diastolic congestive heart failure ([facility]) 09/26/2020 CKD (chronic kidney disease) stage 3, GFR 30-59 ml/min ([facility]) 12/2015 COPD (chronic obstructive pulmonary disease) ([facility]) Essential hypertension 06/19/2016 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 Normal [facility] Comprehensive metabolic 2000 panelon 12-06-2022 Albumin [Mass/Vol] 3.4 g/dL Normal 3.2-5.0 [facility] Comment on above: Order Comment: Fariba vivar Type: BLOOD SPECIMEN [facility] Address: [address] [place] [address] Performed By: #### 2 4323-8, LIPJAME, , 3015-3 #### [facility] CLIA [id number] [address] [place] [address] [place] ALP [Catalytic activity/Vol] 68 U/L Normal 45-117 [facility] Comment on above: Order Comment: Fariba vivar Type: BLOOD SPECIMEN Order[facility] Address: [address] [place] [address] Performed By: #### 2 4323-8, LIPJAME, , 3015-3 #### [facility] CLIA [id number] [address] [place] [address] [place] ALT [Catalytic activity/Vol] 10 U/L Low 13-61 [facility] Comment on above: Order Comment: Fariba vivar Type: BLOOD SPECIMEN Order[facility] Address: [address] [place] [address] Result Comment: Resu lts may be falsely depressed after the administration of Sulfasalazine and/or Sulfapyridine. Performed By: #### 2 4323-8, LIPNF, , 3015-3 #### [facility] CLIA [id number] [address] [place], [place] [address] [place] Anion gap [Moles/Vol] 7 mmol/L Normal 5-16 [facility] Comment on above: Order Comment: Speci men Type: BLOOD SPECIMEN [facility] Address: [address] [place] [address] Performed By: #### 2 4323-8, LIPNF, 20131-0, 3015-3 #### [facility] CLIA [id number] [address] [place] [address] [place] AST [Catalytic activity/Vol] 15 U/L Normal 8-34 [facility] Comment on above: Order Comment: Speci men Type: BLOOD SPECIMEN [facility] Address: [address] [place] [address] Result Comment: Resu lts may be falsely depressed after the administration of Sulfasalazine and/or Sulfapyridine. Performed By: #### 2 4323-8, LIPNF, , 3015-3 #### [facility] CLIA [id number] [address] [place] [address] [place] Bilirubin [Mass/Vol] 0.6 mg/dL Normal 0.2-1.0 [facility] Comment on above: Order Comment: Speci men Type: BLOOD SPECIMEN [facility] Address: [address] [place] [address] Performed By: #### 2 4323-8, LIPNF, , 3015-3 #### [facility] CLIA [id number] [address] [place], [place] [address] [place] Calcium [Mass/Vol] 9.6 mg/dL Normal 8.5-10.5 [facility] Comment on above: Order Comment: Speci men Type: BLOOD SPECIMEN [facility] Address: [address] [place] [address] Performed By: #### 2 4323-8, LIPNF, , 3015-3 #### [facility] CLIA [id number] [address] [place] [address] [place] Chloride [Moles/Vol] 110 mmol/L High 98-107 [facility] Comment on above: Order Comment: Speci men Type: BLOOD SPECIMEN Order[facility] Address: [address] [place] [address] Performed By: #### 2 4323-8, LIPNF, 45082-6, 3015-3 #### [facility] CLIA [id number] [address] [place] [address] [place] CO2 [Moles/Vol] 27 mmol/L Normal 21-32 [facility] Comment on above: Order Comment: Speci men Type: BLOOD SPECIMEN [facility] Address: [address] [place] [address] Performed By: #### 2 4323-8, LIPNF, , 3015-3 #### [facility] CLIA [id number] [address] [place] [address] [place] Creatinine [Mass/Vol] 1.30 mg/dL Normal 0.50-1.40 [facility] Comment on above: Order Comment: Speci men Type: BLOOD SPECIMEN [facility] Address: [address] [place] [address] Result Comment: Cristina ents receiving either N-Acetylcysteine (NAC) or Metamizole prior to venipuncture, may have falsely depressed results. Performed By: #### 2 4323-8, LIPNF, , 3015-3 #### [facility] CLIA [id number] [address] [place] [address] [place] Creatinine and Glomerular filtration rate.predicted panel (S/P/Bld) 53 mL/min/1.73m??? Low >=60 [facility] Comment on above: Order Comment: Speci men Type: BLOOD SPECIMEN [facility] Address: [address] [place] [address] Result Comment: Rosalba mated Glomerular Filtration Rate [...] actual GFR. Performed By: #### 2 4323-8, LIPNF, 78213-9, 6-3 #### [facility] CLIA [id number] [address] [place], [place] [address] [place] Glucose [Mass/Vol] 94 mg/dL Normal 70-100 [facility] Comment on above: Order Comment: Specmarsha vivar Type: BLOOD SPECIMEN [facility] Address: [address] [id number] Result Comment: The [place] [employer] (ADA) provides guidance for cutoff [...] Standards of Medical Care in Diabetes 2016, [employer]. Diabetes Care. 2016.39(Suppl 1). Results may be falsely elevated after the administration of Sulfapyridine. Results may be falsely depressed after the administration of Sulfasalazine. Performed By: #### 2 4323-8, LIPNF, 04748-7, 3015-3 #### [facility] CLIA [id number] [address] [place], [place] [address] [place] Potassium [Moles/Vol] 3.5 mmol/L Normal 3.5-5.1 [facility] Comment on above: Order Comment: Fariba vivar Type: BLOOD SPECIMEN [facility] Address: [address] [place] [address] Performed By: #### 2 4323-8, LIPNF, , 6-3 #### [facility] CLIA [id number] [address] [place], [place] [address] [place] Protein [Mass/Vol] 6.6 g/dL Normal 6.0-8.5 [facility] Comment on above: Order Comment: Speci men Type: BLOOD SPECIMEN [facility] Address: [address] [place] [address] Performed By: #### 2 4323-8, LIPNF, 40293-3, 6-3 #### [facility] CLIA [id number] [address] [place], [place] [address] [place] Sodium [Moles/Vol] 144 mmol/L Normal 136-145 [facility] Comment on above: Order Comment: Speci men Type: BLOOD SPECIMEN [facility] Address: [address] [place] [address] Performed By: #### 2 4323-8, LIPNF, 17437-2, 3015-3 #### [facility] CLIA [id number] [address] [place], [place] [address] [place] Urea nitrogen [Mass/Vol] 23 mg/dL Normal 7-26 [facility] Comment on above: Order Comment: Speci men Type: BLOOD SPECIMEN [facility] Address: [address] [place] [address] Performed By: #### 2 4323-8, LIPNF, 07797-3, 6-3 #### [facility] CLIA [id number] [address] [place], [place] [address] [place] HIGH SENSITIVITY TROPONIN Io n 12-06-2022 Tropinin I.cardiac panel High sensitivity method 10.6 pg/mL Normal 0.0-54.0 [facility] Comment on above: Order Comment: Speci men Type: BLOOD SPECIMEN [facility] Address: [address] [place] [address] Result Comment: This assay uses different antibodies than our current assay, and assays, even by the same him specialists may recognize different regions of the antibody and cannot be used interchangeably. Expect results of this assay to run higher than the previous assay. Performed By: #### H STROP #### [facility] CLIA [id number] [address] [place] [address] [place] HISTORY PHYSICALon HISTORY PHYSICAL HNO ID: [id number] Author: Tracee Escalona APRN.RETAIL WAREHOUSE ASSOCIATE Service: Hospital Medicine Author Type: Nurse Practitioner [...] who presents as a direct admission from [facility] after he presented there with sided facial [...] cholesterol test Anticoagulant long-term use Aortic aneurysm ([facility]) s/p repair AAA Arteriosclerosis of coronary artery 12/23/2019 pacemaker, hyperlipidemia, hyperlipidemia At risk for stroke Atrial flutter ([facility]) 03/03/2020 CAD (coronary artery disease) pacemaker, hyperlipidemia, hyperlipidemia Chronic combined systolic and diastolic congestive heart failure ([facility]) 09/26/2020 CKD (chronic kidney disease) stage 3, GFR 30-59 ml/min ([facility]) 12/2015 COPD (chronic obstructive pulmonary disease) (HCC) Essential hypertension 06/19/2016 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 08/10/2015 H/O abdominal aortic aneurysm repair 08/10/2015 H/O right heart catheterization High blood pressure History of heart attack History of [place] (myocardial infarction) 08/10/2015 Hyperlipidemia, unspecified 12/23/2019 Hypertensive chronic kidney disease with stage 1 through stage 4 chronic kidney disease, or unspecified chronic kidney disease 12/23/2019 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 Normal [facility] HbA1c (Bld)on 12-06-2022 Average glucose Estimated from glycated hemoglobin (Bld) [Mass/Vol] 103 mg/dL Normal [facility] Comment on above: Order Comment: Fariba vivar Type: BLOOD SPECIMEN [facility] Address: [address] [place] [address] Result Comment: eAG: (Estimated average glucose) is a calculated value from HgbA1c and is medical detail representative of the average blood glucose level in the last 2-3 month period. Performed By: #### 5 7021-8, 01070-2 #### [facility] CLIA [id number] [address] [place] [address] [place] HbA1c (Bld) [Mass fraction] 5.2 % Normal 4.3-6.0 [facility] Comment on above: Order Comment: Fariba vivar Type: BLOOD SPECIMEN [facility] Address: [address] [place] [address] Result Comment: Amer ican Diabetes Association guidelines indicate that patients with HgbA1c in the range 5.7-6.4% are at increased risk for development of diabetes, and intervention by lifestyle modification may be beneficial. HgbA1c greater or equal to 6.5% is considered diagnostic of diabetes. Performed By: #### 5 7021-8, 98211-7 #### [facility] CLIA [id number] [address] [place] [address] OF [place] LIPID PANEL, NONFASTINGon Cholesterol [Mass/Vol] 103 mg/dL Normal <200 [facility] Comment on above: Order Comment: Fariba vivar Type: BLOOD SPECIMEN [facility] Address: [address] [place] [address] Result Comment: <200 mg/dL, Desirable 200-239 mg/dL, Borderline high >239 mg/dL, High Performed By: #### 2 4323-8, LIPNF, , 3015-3 #### [facility] CLIA [id number] [address] [place] [address] OF [facility] HDL CHOLESTEROL, NF 34 mg/dL Low >39 [facility] Comment on above: Order Comment: Fariba vivar Type: BLOOD SPECIMEN [facility] Address: [address] [place] [address] Result Comment: 40-5 9 mg/dL, Acceptable >59 mg/dL, High: Negative risk factor for coronary heart disease <40 mg/dL, Low: Positive risk factor for coronary heart disease Performed By: #### 2 4323-8, LIPNF, , 3015-3 #### [facility] CLIA [id number] [address] [place] [address] OF [facility] LDL CHOLESTEROL, NF 41 mg/dL Normal <100 [facility] Comment on above: Order Comment: Fariba vivar Type: BLOOD SPECIMEN [facility] Address: [address] [address] Result Comment: <100 mg/dL, Optimal 100-129 mg/dL, Near optimal/above optimal 130-159 mg/dL, Borderline high 160-189 mg/dL, High >189 mg/dL, Very high Secondary prevention optimal LDL Cholesterol levels are recommended to be < 70 mg/dL Performed By: #### 2 4323-8, LIPNF, 21693-3, 6-3 #### [facility] CLIA [id number] [address] [place] [address] OF [place] LDL/HDL RATIO, NF 1.21 mg/dL Normal <2.54 [facility] Comment on above: Order Comment: Speci men Type: BLOOD SPECIMEN [facility] Address: [address] [place] [address] Result Comment: Refe rence: 1. National Cholesterol Education Program ATP III Guideline At-A-Glance Quick Desk Reference: National Heart, Lung, and Blood [place]. National Institutes of Health. 2001: NIH Publication No. 01-3305. 2. An International Atherosclerosis Society position paper: global recommendations for the management of dyslipidemia: executive summary, Atherosclerosis. 2014: 232(2):410-413. Performed By: #### 2 4323-8, LIPNF, 88928-0, 3015-3 #### [facility] CLIA [id number] [address] [place] [address] [place] NON HDL CHOL, NF 69 mg/dL Normal <130 [facility] Comment on above: Order Comment: Speci men Type: BLOOD SPECIMEN [facility] Address: [address] [place] [address] Result Comment: <130 mg/dL, Optimal 130-159 mg/dL, Near optimal/above optimal 160-189 mg/dL, Borderline high 190-219 mg/dL, High >219 mg/dL, Very high Secondary prevention optimal non HDL Cholesterol levels are recommended to be <100 mg/dL Performed By: #### 2 4323-8, LIPNF, 00546-8, 6-3 #### [facility] CLIA [id number] [address] [place] [address] OF [place] T CHOL/HDL RATIO NF 3.03 mg/dL Normal <5.10 [facility] Comment on above: Order Comment: Speci men Type: BLOOD SPECIMEN [facility]ing [facility] Address: [address] [place] [address] Performed By: #### 2 4323-8, LIPNF, 41211-9, 6-3 #### [facility] CLIA [id number] [address] [place] [address] STATES OF [facility] TRIGLYCERIDES, NF 139 mg/dL Normal <150 [facility] Comment on above: Order Comment: Speci men Type: BLOOD SPECIMEN [facility]ing [facility] Address: [address] [place] [address] Result Comment: <150 mg/dL, Normal 150-199 mg/dL, Borderline high 200-499 mg/dL, High >499 mg/dL, Very high Performed By: #### 2 4323-8, LIPNF, 67080-4, 6-3 #### [facility] CLIA [id number] [address] [place] [address] VLDL CHOLESTEROL, NF 28 mg/dL Normal <30 [facility] Comment on above: Order Comment: Speci men Type: BLOOD SPECIMEN Ordering [facility] Address: [address] [place] [address] Performed By: #### 2 4323-8, LIPNF, 16989-8, 6-3 #### [facility] CLIA [id number] [address] [place] [address] OF [place] Magnesium SerPl-mCncon 12-06 Magnesium [Mass/Vol] 1.8 mg/dL Normal 1.6-2.6 [facility] Comment on above: Order Comment: Speci men Type: BLOOD SPECIMEN Ordering [facility] Address: [address] [place] [address] Performed By: #### 2 4323-8, LIPNF, 14724-3, 6-3 #### [facility] CLIA [id number] [address] [place], [place] [address] [facility] OF [place] THERAPY NTon 12-06-2022 THERAPY NT HNO ID: [id number] Author: Claritza Roman OTR/L Service: Occupational Therapy Author Type: Occupational Therapist Type: Therapy (PT/OT/Speech/Resp) Filed: 12/06/2022 1:59 PM Note Text: Occupational Therapy Evaluation SERVICE DATE: 12/06/2022 SERVICE TIME: 1331 to 1356 ROOM: [place] [address] Recommended Discharge Disposition: Home OT Recommended Discharge [...] Patient Lives With: Self/Alone Assistance Available: PRN, Learning And Development Intern Entry To Home: No Stairs Number Of Stairs To Bed/Bath: 0 Tub/Shower Type: tub/shower combo Laundry: aide completes Equipment Owned: Cane Prior Functional Level: Within Functional Limits Prior Functional Level Comments: pt reports independence with ADLs, 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 [facility] THERAPY NT HNO ID: [id number] Author: Malinda Yoo PT Service: ? Author Type: Physical Therapist Type: Therapy (PT/OT/Speech/Resp) Filed: 12/06/2022 10:49 AM Note Text: Physical Therapy Evaluation SERVICE DATE: 12/06/2022 SERVICE TIME: 1019 to 1035 ROOM: [place] [address] Total Joint Replacement Discharge Readiness: Not Applicable [...] Patient Lives With: Self/Alone Assistance Available: PRN, Learning And Development Intern (Pt reports an aide comes to perform [...] Reduced mobility-other Interventions Provided: Evaluation $ Evaluation-Low (38795) Billed Units: 1 unit Training AND Education Provided in: Benefits of In-Hospital Mobility, Discharge Planning, Falls Prevention, Gait Pattern, Reduction of Deviations, Home Safety, Transfers, Role of Physical Therapy The Following Therapeutic Skills Were Used: Cues for Sequencing/Proper Technique for Activity, Cuing Tactile, Cuing Verbal, Cuing Visual Skilled Treatment Time (minutes): 16 P (more content not included)... Normal [facility] TSH SerPl-aCncon 12-06-2022 TSH Qn 1.792 m[IU]/L Normal 0.358-3.740 [facility] Comment on above: Order Comment: Speci men Type: BLOOD SPECIMEN [facility] Address: [address] [place] [phone] Result Comment: 3rd generation ultra sensitive TSH. Performed By: #### 2 4323-8, LIPNF, 99497-2, 3016-3 #### [facility] CLIA [id number] [facility] [address] [place] CBC + DIFFon 12-05-2022 Baso # 0.00 x10EE3/UL Normal 0.00 - 0.10 [facility] Comment on above: Performed By: #### 2 08284 #### [facility],[address] [place] [address] Basophils/100 WBC (Bld) 0.1 % Normal 0.0 - 2.0 [facility] Comment on above: Performed By: #### 2 79213 #### [facility],[address] [place] [address] CBC + DIFF Normal [facility] Comment on above: Result Comment: CBC- COMPLETE BLOOD COUNT Performed By: #### 2 24553 #### [facility],[address] [place] [address] EO # 0.40 x10EE3/UL Normal 0.00 - 0.50 [facility] Comment on above: Performed By: #### 2 [address]2913 #### [place] [id number] Eosinophils/100 WBC (Bld) 5.1 % Normal 0.0 - 7.0 [facility] Comment on above: Performed By: #### 2 20695 #### [facility],[address] [place] [address] Erythrocyte distribution width (RBC) [Ratio] 14.3 % Normal 12.0 - 15.6 [facility] Comment on above: Performed By: #### 2 28503 #### [facility],[address] [place] [address] Hematocrit (Bld) [Volume fraction] 40.6 % Normal 40.0 - 52.0 [facility] Comment on above: Performed By: #### 2 17096 #### [facility],[address] [place], [place] [address] Hemoglobin (Bld) [Mass/Vol] 13.1 g/dL Normal 13.0 - 17.5 [facility] Comment on above: Performed By: #### 2 34157 #### [place] [address] Lymph # 1.60 x10EE3/UL Normal 0.80 - 2.80 [facility] Comment on above: Performed By: #### 2 14616 #### [facility],[address] [place] [address] Lymphocytes/100 WBC (Bld) 21.4 % Normal 20.0 - 45.0 [facility] Comment on above: Performed By: #### 2 72923 #### [facility],[address] [place] [address] MANUAL DIFF N/A Normal [facility] Comment on above: Performed By: #### 2 06741 #### [facility],[address] [place] [address] MCH (RBC) [Entitic mass] 29 pg Normal 27 - 33 [facility] Comment on above: Performed By: #### 2 48719 #### [place] [address] MCHC 32 X10 3 Normal 32 - 36 [facility] Comment on above: Performed By: #### 2 13609 #### [place] [address] MCV (RBC) [Entitic vol] 90 fL Normal 81 - 98 [facility] Comment on above: Performed By: #### 2 15014 #### [facility],[address] [place] [address] [place] # 0.90 x10EE3/UL Normal 0.20 - 1.00 [facility] Comment on above: Performed By: #### 2 17312 #### [address] [address] MONOS % 12.7 % High 0.0 - 10.0 [facility] Comment on above: Performed By: #### 2 55436 #### [facility],[address] [place], [place] [address] Morphology Jose (Bld) [Interp] N/A Normal [facility] Comment on above: Result Comment: {CD] Performed By: #### 2 99201 #### [facility],[address] [place] [address] Neut # 4.50 x10EE3/UL Normal 1.50 - 7.10 [facility] Comment on above: Performed By: #### 2 82409 #### [facility],[address] [place] [address] Neutrophils/100 WBC (Bld) 60.7 % Normal 46.0 - 76.0 [facility] Comment on above: Performed By: #### 2 51749 #### [facility],[address] [place] [address] PLATELET 209 x10EE3/UL Normal 150 - 450 [facility] Comment on above: Performed By: #### 2 67659 #### [place] [address] Platelet mean volume (Bld) [Entitic vol] 9.3 fL Normal 6.4 - 10.5 [facility] Comment on above: Result Comment: AUTO MATED DIFFERENTIAL Performed By: #### 2 77477 #### [facility],[address] [place] [address] RBC 4.54 x 10EE6/UL Normal 4.50 - 6.00 [facility] Comment on above: Performed By: #### 2 27502 #### [facility],[address] [place] [address] WBC 7.4 x 10EE3/UL Normal 4.5 - 10.8 [facility] Comment on above: Performed By: #### 2 87564 #### [facility],[address] [place] [address] CMP with eGFRon 12-05-2022 AGE 87 years Normal [facility] Comment on above: Performed By: #### 2 39621 #### [facility],[address] [place], [place] [address] Albumin [Mass/Vol] 3.4 g/dL Normal 3.4 - 5.0 [facility] Comment on above: Performed By: #### 2 04990 #### [facility],[address] [place], [place] [address] Albumin/Globulin [Mass ratio] 0.9 {ratio} Normal 0.9 - 1.6 [facility] Comment on above: Performed By: #### 2 29783 #### [facility],[address] [place] [address] ALK PHOS 69 U/L Normal 46 - 116 [facility] Comment on above: Performed By: #### 2 56658 #### [facility],[address] [place] [address] ALT [Catalytic activity/Vol] 8 U/L Low 16 - 63 [facility] Comment on above: Performed By: #### 2 21129 #### [facility],[address] [place] [address] Anion gap [Moles/Vol] 15 mmol/L Normal 10 - 20 [facility] Comment on above: Performed By: #### 2 38737 #### [facility],[address] [place] [address] AST [Catalytic activity/Vol] 21 U/L Normal 15 - 37 [facility] Comment on above: Performed By: #### 2 61346 #### [facility],[address] [place] [address] B/C RATIO 18 ratio Normal 0 - 30 [facility] Comment on above: Performed By: #### 2 34080 #### [facility],[address] [place] [address] Bilirubin [Mass/Vol] 0.3 mg/dL Normal 0.2 - 1.0 [facility] Comment on above: Performed By: #### 2 74782 #### [facility],[address] [place] [address] Calcium [Mass/Vol] 9.2 mg/dL Normal 8.5 - 10.1 [facility] Comment on above: Performed By: #### 2 07715 #### [facility],[address] [place], [place] [address] Chloride [Moles/Vol] 106 mmol/L Normal 98 - 107 [facility] Comment on above: Performed By: #### 2 26868 #### [facility],[address] [place] [address] CMP with eGFR Normal [facility] Comment on above: Result Comment: COMP REHENSIVE METABOLIC PANEL Performed By: #### 2 03626 #### [facility],[address] [place] [address] CO2 [Moles/Vol] 27.4 mmol/L Normal 21.0 - 32.0 [facility] Comment on above: Performed By: #### 2 13934 #### [facility],[address] [place], [place] [address] Creatinine [Mass/Vol] 1.31 mg/dL High 0.70 - 1.30 [facility] Comment on above: Performed By: #### 2 42710 #### [facility],[address] [place] [address] eGFR 52 ML/MINUTE Low 60 - 999 [facility] Comment on above: Performed By: #### 2 31491 #### [facility],[address] [place], [place] [address] GFR/1.73 sq M.predicted among non-blacks MDRD (S/P/Bld) [Vol rate/Area] mL/min/{1.73_m2} Normal 60 - 999 [facility] Comment on above: Result Comment: ACCO RDING TO THE NATIONAL KIDNEY DISEASE EDUCATION PROGRAM(NKDE), A NORMAL eGFR IS A VALUE GREATER THAN OR EQUAL TO 60 ML/MIN/1.73 SQ METERS. CHRONIC KIDNEY DISEASE: <60mL/MIN/1.73 SQ METERS KIDNEY FAILURE: <15mL/MIN/1.73 SQ METERS THIS TEST SHOULD ONLY BE USED FOR PATIENTS 18 YEARS OF AGE AND OLDER. Performed By: #### 2 20074 #### [facility],[address] [place] [address] Globulin (S) [Mass/Vol] 4.0 g/dL High 1.5 - 3.8 [facility] Comment on above: Performed By: #### 2 50124 #### [facility],[address] [place] [address] Glucose [Mass/Vol] 88 mg/dL Normal 74 - 106 [facility] Comment on above: Performed By: #### 2 35043 #### [facility],[address] [place] [address] Potassium [Moles/Vol] 4.1 mmol/L Normal 3.5 - 5.1 [facility] Comment on above: Performed By: #### 2 75807 #### [facility],[address] [place] [address] Protein [Mass/Vol] 7.4 g/dL Normal 6.4 - 8.2 [facility] Comment on above: Performed By: #### 2 02786 #### [facility],[address] [place] [address] Sodium [Moles/Vol] 144 mmol/L Normal 136 - 145 [facility] Comment on above: Performed By: #### 2 30773 #### [facility],[address] [place] [address] Urea nitrogen [Mass/Vol] 24 mg/dL High 7 - 18 [facility] Comment on above: Performed By: #### 2 31418 #### [facility],[address] [place] [address] Rissa 12-05-2022 MADYN Telephone ([facility] THANH COLEMAN ([id number]) 1935 M Date Time Provider Department 12/05/22 BOO MARINA During your visit today, we recorded the following information about you: Vivienne Villarreal RN 12/05/2022 2:49 PM Signed Lucinda SPRAGUEglassware selector with [facility] calls to let provider know that today when home health aide showed up to home patient was disoriented with slurred speech. 911 was contacted and patient was transported to [facility] where he is currently at for evaluation. CELESTINE Kaur Alyson, APRN.CNP 12/05/2022 3:37 PM Signed Noted. Thank you for update. Ekta Mandujano APRN.RETAIL WAREHOUSE ASSOCIATE Allergies As of Date: 12/05/2022 Noted Allergy [...] (FLONASE) 50 mcg/actuation nasal spray Use 1 Duncan in each nostril daily at bedtime. - [...] Asymptomatic LV dysfunction [I51.9] 08/10/2015 History of [place] (myocardial infarction) [I25.2] 08/10/2015 Stenosis of right [...] obstructive pul (more content not included)... Normal [facility] CT ANGIOGRAPHY HEAD W/CONTRA STon 12-05-2022 CT ANGIOGRAPHY HEAD W/CONTRAST [place] [address] Patient: THANH COLEMAN Phone#: : 1935 Age: 87 Gender: M Pt. Type: ER Account: [id number] Location: 052 Ordering: COLBY MURRAY Exam Date: 12/05/2022/16:46 Family Phys: DR. BOO MARINA D.O. Charge Code: 223630 Physician: Geary Order #: [id number] Dose#: 8.60 PROCEDURE: CT ANGIOGRAPHY HEAD WITH [...] 87 Gender: M Pt. Type: ER Account: [id number] Location: 052 Ordering: COLBY MURRAY Exam Date: 12/05/2022/16:46 Family Phys: DR. BOO MARINA D.O. Charge Code: 782755 Physician: Geary Order #: [id number] Dose#: 8.60 Dictated by: Francine Rosas MD on 12/05/2022 at 17:39 Approved by: Francine Rosas MD on 12/05/2022 at 17:[address] [facility] [address] ANGIOGRAPHY NECKon 2022 CT ANGIOGRAPHY [place] [address] Patient: THANH COLEMAN Phone#: : 1935 Age: 87 Gender: M Pt. Type: ER Account: [id number] Location: [facility] Ordering: COLBY MURRAY Exam Date: 12/05/2022/16:46 Family Phys: DR. BOO MARINA D.O. Charge Code: 214510 Physician: Geary Order #: [id number] Dose#: 8.60 PROCEDURE: CT ANGIOGRAPHY CAROTIDS WITH [...] 87 Gender: M Pt. Type: ER Account: [id number] Location: 052 Ordering: COLBY MURRAY Exam Date: 12/05/2022/16:46 Family Phys: DR. BOO MARINA D.O. Charge Code: 345395 Physician: Geary Order #: [id number] Dose#: 8.60 CONCLUSION: 1. Hard plaque is present at the carotid bulb in origin of the internal carotid arteries bilaterally. 2. There is severe narrowing at the origin of the right carotid artery, greater than 70%. Dictated by: Francine Rosas MD on 12/05/2022 at 17:30 Approved by: Francine Rosas MD on 12/05/2022 at 17:[address] [facility] [address] BRAIN W/O CONTRASTon 11-19 CT BRAIN W/O CONTRAST [place] [address] Patient: THANH COLEMAN Phone#: : 1935 Age: 87 Gender: M Pt. Type: ER Account: [id number] Location: 052 Ordering: COLBY MURRAY Exam Date: 12/05/2022/14:51 Family Phys: DR. BOO MARINA D.O. Charge Code: 158889 Physician: Geary Order #: [id number] Dose#: 52.30 mGy PROCEDURE: CT BRAIN WITHOUT [...] Rosas MD on 12/05/2022 at 15:03 Normal [facility] PROTHROMBIN TIME AND INRon 0 12-05-2022 INR Coag (PPP) [Relative time] 1.2 {INR} Normal 0.8 - 1.2 [facility] Comment on above: Result Comment: T [...] MECHANICAL HEART VALVES Performed By: #### 2 35141 #### [facility],[address] [place] [address] PROTHROMBIN TIME AND INR Normal [facility] Comment on above: Result Comment: PROT HROMBIN TIME AND INR Performed By: #### 2 04657 #### [facility],[address] [place] [address] PT-COUMADIN 14.1 sec Normal 9.3 - 14.1 [facility] Comment on above: Performed By: #### 2 88895 #### [facility],[address] [place], [place] [address] CNPLatanya 10-21-2022 CNPN Telephone ([facility]) THANH COLEMAN ([id number]) 1935 M Date Time Provider Department 10/21/22 [...] (FLONASE) 50 mcg/actuation nasal spray Use 1 Duncan in each nostril daily at bedtime. - [...] Asymptomatic LV dysfunction [I51.9] 08/10/2015 History of [place] (myocardial infarction) [I25.2] 08/10/2015 Stenosis of right [...] chronic kidney (more content not included)... Normal [facility] Basic metabolic 2000 panelon 10-18-2022 Anion gap [Moles/Vol] 16 mmol/L 9 - 18 mmol/L [facility] Calcium [Mass/Vol] 9.7 mg/dL 8.5 - 10.2 mg/dL [facility] Chloride [Moles/Vol] 103 mmol/L 97 - 105 mmol/L [facility] CO2 [Moles/Vol] 24 mmol/L 22 - 30 mmol/L [facility] Creatinine [Mass/Vol] 2.05 mg/dL High 0.73 - 1.22 mg/dL [facility] Estimated Glomerular Filtration Rate 31 mL/min/1.73m Low >=60 mL/min/1.73m [facility] Glucose [Mass/Vol] 90 mg/dL 74 - 99 mg/dL [facility] Potassium [Moles/Vol] 5.1 mmol/L 3.7 - 5.1 mmol/L [facility] Sodium [Moles/Vol] 143 mmol/L 136 - 144 mmol/L [facility] Urea nitrogen [Mass/Vol] 43 mg/dL High 9 - 24 mg/dL [facility] Anion gap [Moles/Vol] 16 mmol/L Normal 9-18 [facility] Comment on above: Order Comment: Speci men Type: BLOOD SPECIMENOrdering Facility: [facility] Address: [address] [place] [address] Performed By: #### 2 885-2, 21185-0 ####[facility] LABCLIA [id number] [place] [address] [place] Calcium [Mass/Vol] 9.7 mg/dL Normal 8.5-10.2 [facility] Comment on above: Order Comment: Speci men Type: BLOOD SPECIMENOrdering Facility: [facility] Address: [address] [place] [address] Performed By: #### 2 885-2, 07713-2 ####[facility] LABCLIA [id number] [place] [address] [place] Chloride [Moles/Vol] 103 mmol/L Normal 97-105 [facility] [facility] Comment on above: Order Comment: Speci men Type: BLOOD SPECIMENOrdering Facility: [facility] Address: [address] [place] [address] Performed By: #### 2 885-2, 12532-1 ####[facility] LABCLIA [id number] [place] [address] [place] CO2 [Moles/Vol] 24 mmol/L Normal 22-30 [facility] Comment on above: Order Comment: Speci men Type: BLOOD SPECIMENOrdering Facility: [facility] Address: [address] [place] [address] Performed By: #### 2 885-2, 94331-7 ####[facility] LABIA [id number] [address] [place] Creatinine [Mass/Vol] 2.05 mg/dL High 0.73-1.22 [facility] Comment on above: Order Comment: Namitai men Type: BLOOD SPECIMENOrdering Facility: [facility] Address: [address] [address] Performed By: #### 2 885-2, 54367-7 ####[facility] [id number] [address] [place] ESTIMATED GLOMERULAR FILTRATION RATE 31 mL/min/1.73m??? Low >=60 [facility] Comment on above: Order Comment: Fariba men Type: BLOOD SPECIMENOrdering Facility: [facility] Address: [address] [place] [address] Result Comment: Rosalba mated Glomerular Filtration Rate [...] actual GFR. Performed By: #### 2 885-2, 37498-7 ####[facility] LABIA [id number] [place] [address] [place] Glucose [Mass/Vol] 90 mg/dL Normal 74-99 [facility] Comment on above: Order Comment: Fariba vivar Type: BLOOD SPECIMENOrdering Facility: [facility] Address: [address] [place] [address] Result Comment: The [place] Diabetes Association (ADA) provides guidance for cutoff [...] Standards of Medical Care in Diabetes 2016, [place] [employer]. Diabetes Care. 2016.39(Suppl 1). Performed By: #### 2 885-2, 45796-8 ####[facility] LABCLIA [id number] [place] [address] [place] Potassium [Moles/Vol] 5.1 mmol/L Normal 3.7-5.1 [facility] Comment on above: Order Comment: Speci men Type: BLOOD SPECIMENOrdering Facility: [facility] Address: [address] [place] [address] Performed By: #### 2 885-2, 18666-3 ####[facility] LABCLIA [id number] [place] [address] [place] Sodium [Moles/Vol] 143 mmol/L Normal 136-144 [facility] Comment on above: Order Comment: Fariba vivar Type: BLOOD SPECIMENOrdering Facility: [facility] Address: [address] [place] [address] Performed By: #### 2 885-2, 01366-5 ####[facility] LABCLIA [id number] [place] [address] [place] Urea nitrogen [Mass/Vol] 43 mg/dL High 9-24 [facility] Comment on above: Order Comment: Namitai men Type: BLOOD SPECIMENOrdering Facility: [facility] Address: [address] [address] Performed By: #### 2 885-2, 66784-5 ####[facility] LABCLIA [id number] [place] [address] [place] PROTEIN ELECTROPHORESIS SERU M (P)on 10-18-2022 Albumin [Mass/Vol] 3.91 g/dL Normal 3.43-5.41 [facility] Comment on above: Order Comment: Speci men Type: BLOOD SPECIMENOrdering Facility: [facility] Address: [address] [place] [address] Performed By: #### L [id number] ####[facility] LABCLIA [id number] [place] [address] [place] Alpha 1 globulin Elph [Mass/Vol] 0.44 g/dL High 0.18-0.43 [facility] Comment on above: Order Comment: Speci men Type: BLOOD SPECIMENOrdering Facility: [facility] Address: [address] [place] [address] Performed By: #### L [id number] ####[facility] LABCLIA [id number] [address] [place] Alpha 2 globulin Elph [Mass/Vol] 0.90 g/dL Normal 0.42-0.98 [facility] Comment on above: Order Comment: Speci men Type: BLOOD SPECIMENOrdering Facility: [facility] Address: [address] [place], [place] [address] Performed By: #### L [id number] ####[facility] LABCLIA [id number] [place] [address] [place] Beta globulin Elph [Mass/Vol] 1.04 g/dL Normal 0.61-1.17 [facility] Comment on above: Order Comment: Speci men Type: BLOOD SPECIMENOrdering Facility: [facility] Address: [address] [place], [place] [address] Performed By: #### L [id number] ####[facility] LABCLIA [id number] [place] [address] [place] Gamma globulin Elph [Mass/Vol] 0.90 g/dL Normal 0.53-1.51 [facility] Comment on above: Order Comment: Speci men Type: BLOOD SPECIMENOrdering Facility: [facility] Address: [address] [address] Performed By: #### L [id number] ####[facility] LABCLIA [id number] [address] [place] M-PROTEIN LOCATION Normal [facility] Comment on above: Order Comment: Speci men Type: BLOOD SPECIMENOrdering Facility: [facility] Address: [address] [address] Result Comment: Not Applicable. Performed By: #### L [id number] ####[facility] LABCLIA [id number] [address] [place] Protein Fractions [Interp] No definitive M protein is identified on protein electrophoresis. Normal No definitive M protein is identified on protein electrophoresis. [facility] Comment on above: Order Comment: Speci men Type: BLOOD SPECIMENOrdering Facility: [facility] Address: [address] Performed By: #### L [id number] ####[facility] LABIA [id number] [address] Protein.monoclonal Elph [Mass/Vol] 0.00 g/dL Normal <=0.00 [facility] Comment on above: Order Comment: Speci men Type: BLOOD SPECIMENOrdering Facility: [facility] Address: [address] [place] [address] Performed By: #### L [id number] ####[facility] LABCLIA [id number] [address] [place] SPE STAFF REVIEW Reviewed by Heike Jenkins MD Normal [facility] Comment on above: Order Comment: Speci men Type: BLOOD SPECIMENOrdering Facility: [facility] Address: [address] Performed By: #### L [id number] ####[facility] LABCLIA [id number] [address] Prot SerPl-mCncon 10-18-2022 Protein [Mass/Vol] 7.2 g/dL Normal 6.3-8.0 [facility] Comment on above: Order Comment: Speci men Type: BLOOD SPECIMENOrdering Facility: [facility] Address: [address] [place] [address] Performed By: #### 2 885-2, 56206-8 ####[facility] LABCLIA [id number] [address] [facility] CO[facility] ([id number]) 1935 M Date Time Provider Department 10/17/22 [facility] During your visit today, we recorded the following information about you: Boo Marina DO 10/17/2022 9:45 AM Signed Please inform patient that his recent labs are showing high BUN and creatinine. He needs to have these repeated this week and get opinion by Cruise Counselor as soon as possible Avoid NSAIDs, needs to be drinking 40-60 oz of water a day as well as limiting sodium and eating renal diet. DO Wanda Lyles LPN 10/17/2022 11:41 AM Signed T/c to pt voicemail not set up yet. Will need to try back. Wanda Mccollum LPN 10/17/2022 2:02 PM Signed Spoke with pt [...] [R79.89] Order(s):BASIC METABOLIC PNL [SQBMP] Order #: [id number] FUTURE CONSULT TO NEPHROLOGY [9018] Order #: [id number]: 1 FUTURE Prescriptions as of 10/21/2022 - [...] (FLONASE) 50 mcg/actuation nasal spray Use 1 Duncan in each nostril daily at bedtime. - [...] Asymptomatic LV dysfunction [I51.9] 08/10/2015 History of [place] (myocardial infarction) [I25.2] 08/10/2015 Stenosis of right [...] (HCC) [I71.9 (more content not included)... Normal [facility] CBC W Auto Differential pane l (Bld)on 10-08-2022 Basophils (Bld) [#/Vol] 0.10 10*3/uL Normal <0.11 [facility] Comment on above: Order Comment: Speci men Type: BLOOD SPECIMENOrdering Facility: [facility] Address: [address] [place] [address] Performed By: #### 5 7021-8 ####[facility] LABCLIA [id number] [place] [address] [place] Basophils/100 WBC (Bld) 0.9 % Normal [facility] Comment on above: Order Comment: Speci men Type: BLOOD SPECIMENOrdering Facility: [facility] Address: [address] [place] [address] Performed By: #### 5 7021-8 ####[facility] LABCLIA [id number] [place] [address] [place] Differential cell count method Nom (Bld) Auto Normal [facility] Comment on above: Order Comment: Speci men Type: BLOOD SPECIMENOrdering Facility: [facility] Address: [address] [place] [address] Performed By: #### 5 7021-8 ####[facility] LABCLIA [id number] [place] [address] [place] Eosinophils (Bld) [#/Vol] 0.24 10*3/uL Normal <0.46 [facility] Comment on above: Order Comment: Speci men Type: BLOOD SPECIMENOrdering Facility: [facility] Address: [address] Performed By: #### 5 7021-8 ####[facility] LABCLIA [id number] [place] [address] [place] Eosinophils/100 WBC (Bld) 2.1 % Normal [facility] Comment on above: Order Comment: Speci men Type: BLOOD SPECIMENOrdering Facility: [facility] Address: [address] Performed By: #### 5 7021-8 ####[facility] LABCLIA [id number] [place] [address] [place] Erythrocyte distribution width (RBC) [Ratio] 13.6 % Normal 11.5-15.0 [facility] Comment on above: Order Comment: Speci men Type: BLOOD SPECIMENOrdering Facility: [facility] Address: [address] Performed By: #### 5 7021-8 ####[facility] LABCLIA [id number] [place] [address] [place] Hematocrit (Bld) [Volume fraction] 46.1 % Normal 39.0-51.0 [facility] Comment on above: Order Comment: Speci men Type: BLOOD SPECIMENOrdering Facility: [facility] Address: [address] Performed By: #### 5 7021-8 ####[facility] LABCLIA [id number] [place] [address] [place] Hemoglobin (Bld) [Mass/Vol] 14.4 g/dL Normal 13.0-17.0 [facility] Comment on above: Order Comment: Speci men Type: BLOOD SPECIMENOrdering Facility: [facility] Address: [address] Performed By: #### 5 7021-8 ####[facility] LABCLIA [id number] [place] [address] [place] Immature granulocytes (Bld) [#/Vol] 0.16 10*3/uL High <0.10 [facility] Comment on above: Order Comment: Speci men Type: BLOOD SPECIMENOrdering Facility: [facility] Address: [address] [place] [address] Performed By: #### 5 7021-8 ####[facility] LABCLIA [id number] [address] [place] Immature granulocytes/100 WBC (Bld) 1.4 % Normal [facility] Comment on above: Order Comment: Speci men Type: BLOOD SPECIMENOrdering Facility: [facility] Address: [address] [place] [address] Performed By: #### 5 7021-8 ####[facility] LABCLIA [id number] [place] [address] [place] Lymphocytes (Bld) [#/Vol] 2.46 10*3/uL Normal 1.00-4.00 [facility] Comment on above: Order Comment: Speci men Type: BLOOD SPECIMENOrdering Facility: [facility] Address: [address] [place] [address] Performed By: #### 5 7021-8 ####[facility] LABCLIA [id number] [place] [address] [place] Lymphocytes/100 WBC (Bld) 21.4 % Normal [facility] Comment on above: Order Comment: Speci men Type: BLOOD SPECIMENOrdering Facility: [facility] Address: [address] [place], [place] [address] Performed By: #### 5 7021-8 ####[facility] LABCLIA [id number] [place] [address] [place] MCH (RBC) [Entitic mass] 30.3 pg Normal 26.0-34.0 [facility] Comment on above: Order Comment: Speci men Type: BLOOD SPECIMENOrdering Facility: [facility] Address: [address] Performed By: #### 5 7021-8 ####[facility] LABIA [id number] [place] [address] [place] MCHC (RBC) [Mass/Vol] 31.2 g/dL Normal 30.5-36.0 [facility] Comment on above: Order Comment: Speci men Type: BLOOD SPECIMENOrdering Facility: [facility] Address: [address] Performed By: #### 5 7021-8 ####[facility] LABIA [id number] [place] [address] [place] MCV (RBC) [Entitic vol] 97.1 fL Normal 80.0-100.0 [facility] Comment on above: Order Comment: Speci men Type: BLOOD SPECIMENOrdering Facility: [facility] Address: [address] Performed By: #### 5 7021-8 ####[facility] LABIA [id number] [place] [address] [place] Monocytes (Bld) [#/Vol] 1.46 10*3/uL High <0.87 [facility] Comment on above: Order Comment: Speci men Type: BLOOD SPECIMENOrdering Facility: [facility] Address: [address] Performed By: #### 5 7021-8 ####[facility] LABIA [id number] [address] [place] Monocytes/100 WBC (Bld) 12.7 % Normal [facility] Comment on above: Order Comment: Speci men Type: BLOOD SPECIMENOrdering Facility: [facility] Address: [address] [place], [place] [address] Performed By: #### 5 7021-8 ####[facility] LABCLIA [id number] [place] [address] [place] Neutrophils (Bld) [#/Vol] 7.05 10*3/uL Normal 1.45-7.50 [facility] Comment on above: Order Comment: Speci men Type: BLOOD SPECIMENOrdering Facility: [facility] Address: [address] [place] [address] Performed By: #### 5 7021-8 ####[facility] LABIA [id number] [place] [address] [place] Neutrophils/100 WBC (Bld) 61.5 % Normal [facility] Comment on above: Order Comment: Speci men Type: BLOOD SPECIMENOrdering Facility: [facility] Address: [address] [place] [address] Performed By: #### 5 7021-8 ####[facility] LABIA [id number] [place] [address] [place] Nucleated RBC (Bld) [#/Vol] 10*3/uL Normal <0.01 [facility] Comment on above: Order Comment: Speci men Type: BLOOD SPECIMENOrdering Facility: [facility] Address: [address] [place], [place] [address] Performed By: #### 5 7021-8 ####[facility] LABIA [id number] [place] [address] [place] Nucleated RBC/100 WBC (Bld) [Ratio] 0.0 /100 WBC Normal [facility] Comment on above: Order Comment: Speci men Type: BLOOD SPECIMENOrdering Facility: [facility] Address: [address] [place] [address] Performed By: #### 5 7021-8 ####[facility] LABIA [id number] [place] [address] [place] Platelet mean volume (Bld) [Entitic vol] 11.9 fL Normal 9.0-12.7 [facility] Comment on above: Order Comment: Speci men Type: BLOOD SPECIMENOrdering Facility: [facility] Address: [address] [place] [address] Performed By: #### 5 7021-8 ####[facility] LABCLIA [id number] [place] [address] [place] Platelets (Bld) [#/Vol] 251 10*3/uL Normal 150-400 [facility] Comment on above: Order Comment: Speci men Type: BLOOD SPECIMENOrdering Facility: [facility] Address: [address] Performed By: #### 5 7021-8 ####[facility] LABIA [id number] [place] [address] [place] RBC (Bld) [#/Vol] 4.75 10*6/uL Normal 4.20-6.00 [facility] Comment on above: Order Comment: Speci men Type: BLOOD SPECIMENOrdering Facility: [facility] Address: [address] [place], [place] [address] Performed By: #### 5 7021-8 ####[facility] LABIA [id number] [place] [address] [place] WBC (Bld) [#/Vol] 11.47 10*3/uL High 3.70-11.00 [facility] Comment on above: Order Comment: Speci men Type: BLOOD SPECIMENOrdering Facility: [facility] Address: [address] [place], [place] [address] Performed By: #### 5 7021-8 ####[facility] LABIA [id number] [place] [address] [place] CNOVon 10-08-2022 CNOV Office Visit (FAMPWS ) THANH COLEMAN ([id number]) 1935 M Date Time Provider Department 10/08/22 2:20 PM BOO MARINA During your visit today, we recorded the following information about you: Temperature Pulse Respiration Blood pressure 97.6 degrees 64/minute 24/minute 85/49 Weight 89.8 kg Boo Marina, 10/08/2022 3:12 PM Addendum STOP the Sennakot for now since you are having loose stools. Only take this medication if you have constipation STOP the lisinopril 20 mg a day START the lisinopril 5 mg a day For blood pressure Boo Marina DO 10/08/2022 5:30 PM Signed CC: Thanh Coleman is a 87 year [...] clean apartment once per week. Uses pre-packaged [facility] for medicaiton management. No recent falls. Reports minimal support system as he is not in contact with his children much anymore even thought they live nearby. HLD -- Lipitor 40 mg daily, zetia 10 mg daily, and fenofibrate 54 mg daily. Stable. No symptoms. Willing to recheck with blood work. Hx of Afib -- Well controlled, on eliquis routinely. 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/2020 CKD (chronic kidney disease) stage 3, GFR 30-59 ml/min ([facility]) 12/2015 COPD (chronic obstructive pulmonary disease) ([facility]) Essential hypertension 06/19/2016 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 08/10/2015 H/O abdominal aortic aneurysm repair 08/10/2015 H/O right heart catheterization High blood pressure History of heart attack History of [place] (myocardial infarction) 08/10/2015 Hyperlipidemia, unspecified 12/23/2019 Hypertensive chronic kidney disease with stage 1 through stage 4 chronic kidney disease, or unspecified chronic kidney disease 12/23/2019 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 (HCC) 07/02/2021 Hypertriglyceridemia Low HDL (under 40) Neuropathy Palpitations 12/23/2019 Permanent atrial fibrillation ([facility]) 08/10/2015 Presence of cardiac pacemaker 08/10/2015 Presence of drug coated stent in left circumflex coronary artery 08/10/2015 Sick sinus syndrome (HCC) 08/10/2015 Stage 3b chronic kidney disease ([facility]) 12/21/2015 TB (pulmonary tuberculosis) Thrombocytopenia ([facility]) PAST SURGICAL HISTORY Procedure Laterality Date ABD AORTIC ANEURYSM REPAIR CORONARY STENT EA VESSEL 3-2008 x 2, drug eluting ILIAC PRINTED CIRCUIT LAYOUT TAPER W/WO STENT PACEMAKER DUAL CHAMBER TIER 0 [...] Apply to (more content not included)... Normal [facility] 10-08-2022 [facility] Telephone (ZAIDWS) THANH COLEMAN ([id number]) 1935 M Date Time Provider Department 10/08/22 BOO MARINA During your visit today, we recorded the following information about you: Boo Marina DO 10/08/2022 5:32 PM Signed Please call home health agency and let them know that I am concerned that he needs to be in a rehab facility such as at [facility] close to his home. He is struggling with her ADLs and IADLs at home, hygiene, has lost 15 lbs in 6 months and not doing great self care. DO Raya Lyles Ma 10/09/2022 3:00 PM Signed Spoke to [facility] and they agree he is struggling with ADLs. Advised he is not taking medication like he is supposed to. They did order him an alert med box. Nurse advised they do not have social work coordinator who can step in for patient to go to rehab facility. Called [place] [phone] and spoke to Balbina [phone]. Requested level of care assessment. Tia is going to look into this an call office back Raya Taylor RN 10/09/2022 4:00 PM Signed Tia [employer] calls and states that they are only [...] (FLONASE) 50 mcg/actuation nasal spray Use 1 Duncan in each nostril daily at bedtime. 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 Normal [facility] Telephone (PERVMN) VIRGINIATHANH Yee ([id number]) 1935 M Date Time Provider Department 10/08/22 [facility] During your visit today, we recorded the following information about you: Jojo Hwangnitza 10/08/2022 6:46 PM Signed October 08, 2022 Patient Contact Number: [phone] (home) Reason For Call: Followed up on consult order to [facility] dated 11/29/21 by Zoraida Hodge APRN, [facility] [address] STATUS: declined ( already scheduled / no answer / Scheduled, sent to Desk F14 / Declined / No Answer ) Pt had difficulty hearing me and was unable to schedule. Jojo [id number] Allergies As of Date: 10/08/2022 Noted Allergy [...] (FLONASE) 50 mcg/actuation nasal spray Use 1 Duncan in each nostril daily at bedtime. - [...] Asymptomatic LV dysfunction [I51.9] 08/10/2015 History of [place] (myocardial infarction) [I25.2] 08/10/2015 Stenosis of right [...] seasonal al (more content not included)... Normal [facility] metabolic 2000 panelon 10-08-2022 Albumin [Mass/Vol] 4.1 g/dL Normal 3.9-4.9 [facility] Comment on above: Order Comment: Speci men Type: BLOOD SPECIMENOrdering Facility: [facility] Address: [address] [place], [place] [address] Performed By: #### 3 024-7, 3016-3, 99024-0, 9 ####[facility] LABCLIA [id number] [place] [address] [place] ALP [Catalytic activity/Vol] 65 U/L Normal 38-113 [facility] Comment on above: Order Comment: Speci men Type: BLOOD SPECIMENOrdering Facility: [facility] Address: [address] [place] [address] Performed By: #### 3 024-7, 3016-3, 51219-5, 2131-12 ####[facility] LABCLIA [id number] [place] [address] [place] ALT [Catalytic activity/Vol] 13 U/L Normal 10-54 [facility] Comment on above: Order Comment: Speci men Type: BLOOD SPECIMENOrdering Facility: [facility] Address: [address] [place] [address] Performed By: #### 3 024-7, 3016-3, 05875-0, 2131-12 ####[facility] LABCLIA [id number] [place] [address] [place] Anion gap [Moles/Vol] 14 mmol/L Normal 9-18 [facility] Comment on above: Order Comment: Speci men Type: BLOOD SPECIMENOrdering Facility: [facility] Address: [address] [place] [address] Performed By: #### 3 024-7, 3016-3, 56411-1, 9 ####[facility] LABCLIA [id number] [place] [id number] [place] AST [Catalytic activity/Vol] 15 U/L Normal 14-40 [facility] Comment on above: Order Comment: Speci men Type: BLOOD SPECIMENOrdering Facility: [facility] Address: [address] [place] [address] Performed By: #### 3 024-7, 3016-3, 52069-5, 9 ####[facility] LABCLIA [id number] [place] [address] [place] Bilirubin [Mass/Vol] 0.4 mg/dL Normal 0.2-1.3 [facility] Comment on above: Order Comment: Speci men Type: BLOOD SPECIMENOrdering Facility: [facility] Address: [address] [place] [address] Performed By: #### 3 024-7, 3016-3, 28294-6, 2131-12 ####[facility] LABCLIA [id number] [place] [address] [place] Calcium [Mass/Vol] 10.2 mg/dL Normal 8.5-10.2 [facility] Comment on above: Order Comment: Speci men Type: BLOOD SPECIMENOrdering Facility: [facility] Address: [address] [place] [address] Performed By: #### 3 024-7, 3016-3, 52429-5, 2131-12 ####[facility] LABCLIA [id number] [place] [address] [place] Chloride [Moles/Vol] 103 mmol/L Normal 97-105 [facility] Comment on above: Order Comment: Speci men Type: BLOOD SPECIMENOrdering Facility: [facility] Address: [address] [place] [address] Performed By: #### 3 024-7, 3016-3, 85465-2, 9 ####[facility] LABCLIA [id number] [address] [place] CO2 [Moles/Vol] 23 mmol/L Normal 22-30 [facility] Comment on above: Order Comment: Speci men Type: BLOOD SPECIMENOrdering Facility: [facility] Address: [address] [place] [address] Performed By: #### 3 024-7, 3016-3, 22009-1, 2131-12 ####[facility] LABCLIA [id number] [address] STATES OF [facility] Creatinine [Mass/Vol] 3.49 mg/dL High 0.73-1.22 [facility] Comment on above: Order Comment: Speci men Type: BLOOD SPECIMENOrdering Facility: [facility] Address: [address] [place] [address] Performed By: #### 3 024-7, 3016-3, 54444-2, 2131-12 ####[facility] LABIA [id number] [address] STATES OF [facility] ESTIMATED GLOMERULAR FILTRATION RATE 16 mL/min/1.73m??? Low >=60 [facility] Comment on above: Order Comment: Speci men Type: BLOOD SPECIMENOrdering Facility: [facility] Address: [address] [place] [address] Result Comment: Rosalba mated Glomerular Filtration Rate [...] actual GFR. Performed By: #### 3 024-7, 3016-3, 26236-1, 2131-12 ####[facility] LABCLIA [id number] [place] [address] [place] Glucose [Mass/Vol] 89 mg/dL Normal 74-99 [facility] Comment on above: Order Comment: Speci men Type: BLOOD SPECIMENOrdering Facility: [facility] Address: [place] [id number] Result Comment: The [place] [employer] (ADA) provides guidance for cutoff [...] Standards of Medical Care in Diabetes 2016, [place] [employer]. Diabetes Care. 2016.39(Suppl 1). Performed By: #### 3 024-7, 3016-3, 09523-9, 2131-12 ####[facility] LABCLIA [id number] [place] [address] [place] Potassium [Moles/Vol] 5.2 mmol/L High 3.7-5.1 [facility] Comment on above: Order Comment: Fariba vivar Type: BLOOD SPECIMENOrdering Facility: [facility] Address: [address] [place], [place] [phone] Performed By: #### 3 024-7, 6-3, 63493-5, 2131-12 ####[facility] LABIA [id number] [place] [id number] [place] Protein [Mass/Vol] 7.4 g/dL Normal 6.3-8.0 [facility] Comment on above: Order Comment: Fariba vivar Type: BLOOD SPECIMENOrdering Facility: [facility] Address: [address] [place], [place] [phone] Performed By: #### 3 024-7, 3016-3, 66499-9, 9 ####[facility] LABCLIA [id number] [address] [facility] [place] Sodium [Moles/Vol] 140 mmol/L Normal 136-144 [facility] Comment on above: Order Comment: Speci men Type: BLOOD SPECIMENOrdering Facility: [facility] Address: [address] [place] [address] Performed By: #### 3 024-7, 3016-3, 72917-4, 2131-12 ####[facility] LABCLIA [id number] [place] [address] [place] Urea nitrogen [Mass/Vol] 47 mg/dL High 9-24 [facility] Comment on above: Order Comment: Speci men Type: BLOOD SPECIMENOrdering Facility: [facility] Address: [address] [place] [address] Performed By: #### 3 024-7, 6-3, , 2131-12 ####[facility] LABCLIA [id number] [place] [address] [place] T4 Free SerPl-mCncon 023 Free T4 [Mass/Vol] 1.3 ng/dL Normal 0.9-1.7 [facility] Comment on above: Order Comment: Speci men Type: BLOOD SPECIMENOrdering Facility: [facility] Address: [address] [place] [address] Performed By: #### 3 024-7, 3016-3, 40451-7, 2131-12 ####[facility] LABCLIA [id number] [place] [address] [place] TSH SerPl-aCncon 10-08-2022 TSH Qn 1.970 m[IU]/L Normal 0.270-4.200 [facility] Comment on above: Order Comment: Speci men Type: BLOOD SPECIMENOrdering Facility: [facility] Address: [address] [place] [address] Performed By: #### 3 024-7, 3016-3, , 2131-12 ####[facility] LABCLIA [id number] [place] [address] [place] Vit B12 SerPl-ncon 10-08- 023 Cobalamin (Vitamin B12) [Mass/Vol] 647 pg/mL Normal 232-1245 [facility] Comment on above: Order Comment: Speci men Type: BLOOD SPECIMENOrdering Facility: [facility] Address: [address] [place] [address] Performed By: #### 3 024-7, 3016-3, 36190-7, 2132-9 ####[facility] [id number] [address] [place] Rissa 09-20-2022 CNPN Telephone (FAMPWS) THANH COLEMAN ([id number]) 1935 M Date Time Provider Department 09/20/22 [facility] During your visit today, we recorded the following information about you: Vivienne Villarreal RN 09/20/2022 3:15 PM Signed [facility] calls to report patient was [...] to affected area three times daily. - lapxhsnx-snjggwnjg-bhks icidin (NEOMYCIN) 1.75 mg-10,000 unit-0.025mg/mL drop Apply 3 drops to each ear twice daily. - hgkdcpkx-sumezssjx-comk ocortisone (CORTISPORIN) 3.5-10,000-1 mg/mL-unit/mL-% otic suspension Use [...] (FLONASE) 50 mcg/actuation nasal spray Use 1 Duncan in each nostril daily at bedtime. - [...] Asymptomatic LV dysfunction [I51.9] 08/10/2015 History of [place] (myocardial infarction) [I25.2] 08/10/2015 Stenosis of right [...] Thrombocytopenia (H (more content not included)... Normal [facility] EMERGENCY REPORTon EMERGENCY REPORT [facility] EMERGENCY ROOM REPORT NAME ACCOUNT SEX AGE ADMIT DISCHARGE PT MED. RECORD# NUMBER DATE DATE TYPE THANH COLEMAN [id number] Carina 86 08/29/22 3 [id number] ROOM: ER DATE OF : 1935 DICTATING [...] known coronary artery disease with a previous [place]. Known CHF, hypertension. Had TB as an [...] is unclear, but I would think Guillain [place] would certainly need to be in the differential. Feel that admission where special availability would be indicated. He has been in [place] previously. I talked to Dr. Metcalf, the hospitalist there, who did accept the patient in transfer. DIAGNOSIS: 1. Bilateral leg weakness . 2. Urinary retention. Dictated By: Satnam Madrid MD 08/29/22 19:32 JOB #: [id number] Transcribed By: israel 08/29/22 20:59 Electronically signed by: CHEMO Madrid M.D. 09/12/22 07:31 Page 2 of 2 THANH COLEMAN Emergency Room Report Normal [facility] ([id number]) 1935 M Date Time Provider Department 09/10/22 BOO MARINA During your visit today, we recorded the following information about you: Carlos Miranda LPN 09/10/2022 11:26 AM Signed Patient friend Kavitha calling asking for order for Transfer bench to use sits outside tub and he can slide over to get in the tub to shower, his legs are very painful. Asking to have order faxed to attention of Balbina Morgan at [employer] fax number Is [phone] and also copy of last office notes to be faxed. Pending order Please advise Boo Marina DO 09/11/2022 8:28 PM Signed Order printed, please fax and notify DO Wanda Lyles LPN 09/13/2022 10:34 AM Signed Order and notes faxed as requested. Allergies As of Date: 09/10/2022 Noted Allergy Reaction DUST 05/29/2017 14 - Other: See Comments GRASS POLLEN 05/29/2017 14 - Other: See Comments MOLD SPORES 05/29/2017 14 - Other: See Comments Date Reviewed: 08/06/2022 Reviewed by: Juan Carlos Cuadra, OD - Fully Assessed Reason for Visit: Orders [681] Primary Visit Diagnosis:Neuropathy [G62.9] Other Visit Diagnosis:PVD (peripheral vascular disease) ([facility]) [I73.9] Order(s):TRANS BENCH W/WO COMM OPEN [[id number]] Order #: [id number] Prescriptions as of 09/13/2022 - Cholecalciferol, Vitamin [...] to affected area three times daily. - kpmzoqdl-xyriuxnyn-wttd icidin (NEOMYCIN) 1.75 mg-10,000 unit-0.025mg/mL drop Apply 3 drops to each ear twice daily. - runrhgft-qgpmqtqnk-hubq ocortisone (CORTISPORIN) 3.5-10,000-1 mg/mL-unit/mL-% otic suspension Use [...] (FLONASE) 50 mcg/actuation nasal spray Use 1 Duncan in each nostril daily at bedtime. - [...] Asymptomatic LV dysfunction [I51.9] 08/10/2015 History of [place] (myocardial infarction) [I25.2] 08/10/2015 Stenosis of right [...] of coron (more content not included)... Normal [facility] .Auto Diffon 09-04-2022 Basophil, Absolute 0.0 10 3/mcL Normal 0.0-0.3 [facility] ([place]) Comment on above: Performed By: #### Savannah KHAN, BMP #### [address] [address] Basophils/100 WBC (Bld) 0.1 % Normal 0.0-2.5 [facility] ([place]) Comment on above: Performed By: #### Savannah FR, BMP #### [address] [address] Eosinophil, Absolute 0.1 10 3/mcL Normal 0.0-0.7 [facility] ([place]) Comment on above: Performed By: #### G FR, BMP #### [address] [address] Eosinophils/100 WBC (Bld) 1.1 % Normal 0.0-6.0 [facility] ([place]) Comment on above: Performed By: #### G FR, BMP #### [address] [address] Lymphocyte, Absolute 1.8 10 3/mcL Normal 0.9-4.3 [facility] ([place]) Comment on above: Performed By: #### G FR, BMP #### [address] [address] Lymphocytes/100 WBC (Bld) 15.1 % Low 20.0-40.0 [facility] ([place] Comment on above: Performed By: #### G FR, BMP #### [address] [address] Monocyte, Absolute 1.1 10 3/mcL Normal 0.1-1.4 [facility] ([place]) Comment on above: Performed By: #### G FR, BMP #### [address] [address] Monocytes/100 WBC (Bld) 9.5 % Normal 2.0-13.0 [facility] ([place] Comment on above: Performed By: #### G FR, BMP #### [address] [address] Neutrophils/100 WBC (Bld) 74.2 % Normal 50.0-75.0 [facility] ([place] Comment on above: Performed By: #### G FR, BMP #### [address] [address] .GFRon 09-04-2022 GFR Non- 54 ml/min/1.73sqm Normal [facility] ([place] Comment on above: Result Comment: GFR Population [...] meters Performed By: #### P RO #### [address] [address] GFR >60 Normal [facility] ([place] Comment on above: Result Comment: GFR Population [...] meters Performed By: #### P RO #### [address] [address] .NEUABSon 09-04-2022 Neutrophil, Absolute 8.7 10 3/mcL High 2.3-8.1 [facility] ([place] Comment on above: Performed By: #### P RO #### [place] [address] CBCon 09-04-2022 Erythrocyte distribution width (RBC) [Ratio] 14.6 % Normal 11.5-15.5 [facility] ([place] Comment on above: Performed By: #### G FR, BMP #### [place] [address] Hematocrit (Bld) [Volume fraction] 42.0 % Normal 40.0-52.0 [facility] ([place] Comment on above: Performed By: #### G FR, BMP #### [place] [address] Hgb 13.1 G/dL Normal 13.0-17.5 [facility] ([place] Comment on above: Performed By: #### G FR, BMP #### [place] [address] MCH (RBC) [Entitic mass] 30.9 pg Normal 27.0-33.0 [facility] ([place] Comment on above: Performed By: #### G FR, BMP #### [place] [address] MCHC 31.2 G/dL Low 32.0-36.0 [facility] ([place] Comment on above: Performed By: #### [place] KHAN, BMP #### [address] [address] MCV (RBC) [Entitic vol] 99.0 fL Normal 81.0-100.0 [facility] ([place] Comment on above: Performed By: #### [place] KHAN, BMP #### [address] [address] Platelet 188 10 3/mcL Normal 150-450 [facility] ([place] Comment on above: Performed By: #### Savannah KHAN, BMP #### [place] [address] Platelet mean volume (Bld) [Entitic vol] 9.0 fL Normal 6.4-10.5 [facility] ([place] Comment on above: Performed By: #### Savannah KHAN, BMP #### [place] [address] RBC 4.24 10 6/mcL Low 4.50-6.00 [facility] ([place] Comment on above: Performed By: #### Savannah KHAN, BMP #### [place] [id number] WBC 11.8 10 3/mcL High 4.5-10.8 [facility] ([place] Comment on above: Performed By: #### Savannah KHAN, BMP #### [place] [address] CMPon 09-04-2022 Albumin Level 3.1 G/dL Low 3.2-4.8 [facility] ([place] Comment on above: Performed By: #### P RO #### [place] [address] Albumin/Globulin [Mass ratio] 1.0 {ratio} Normal 0.9-1.6 [facility] ([place] Comment on above: Performed By: #### P RO #### [place] [address] ALP [Catalytic activity/Vol] 52 U/L Normal 38-126 [facility] ([place] Comment on above: Performed By: #### P RO #### [address] [address] ALT [Catalytic activity/Vol] 28 U/L Normal 12-55 [facility] ([place] Comment on above: Performed By: #### P RO #### [address] [address] AST [Catalytic activity/Vol] 20 U/L Normal 8-34 [facility] ([place] Comment on above: Performed By: #### P RO #### [address] [address] Bili Total 0.30 mg/dL Normal 0.20-1.20 [facility] ([place]) Comment on above: Result Comment: Use of this assay is not recommended for patients undergoing treatment with eltrombopag due to the potential for falsely elevated results. Performed By: #### P RO #### [place] [id number] BUN/Creatinine Ratio 32.3 ratio High 10.0-22.0 [facility] ([place] Comment on above: Performed By: #### P RO #### [address] [address] Calcium [Mass/Vol] 9.0 mg/dL Normal 8.7-10.4 [facility] ([place]) Comment on above: Performed By: #### P RO #### [address] [address] Chloride [Moles/Vol] 109 mmol/L Normal 98-110 [facility] ([place] Comment on above: Performed By: #### P RO #### [address] [address] CO2 [Moles/Vol] 30 mmol/L Normal 22-32 [facility] ([place] Comment on above: Performed By: #### P RO #### [address] [address] Creatinine [Mass/Vol] 1.27 mg/dL Normal 0.60-1.40 [facility] ([place]) Comment on above: Performed By: #### P RO #### [place] [id number] Electrolyte Balance 5.0 mEq/L Normal 4.0-15.0 [facility] ([place]) Comment on above: Performed By: #### P RO #### [address] [address] Globulin 3.1 G/dL Normal 1.5-3.8 [facility] ([place] Comment on above: Performed By: #### P RO #### [address] [address] Glucose [Mass/Vol] 89 mg/dL Normal 82-115 [facility] ([place] Comment on above: Performed By: #### P RO #### [address] [address] Potassium [Moles/Vol] 4.5 mmol/L Normal 3.5-5.0 [facility] ([place] Comment on above: Performed By: #### P RO #### [address] [address] Sodium [Moles/Vol] 144 mmol/L Normal 136-145 [facility] ([place] Comment on above: Performed By: #### P RO #### [address] [address] Total Protein 6.2 G/dL Normal 5.7-8.2 [facility] ([place] Comment on above: Result Comment: No te - New Reference Range in effect 19 Performed By: #### P RO #### [address] [address] Urea nitrogen [Mass/Vol] 41.0 mg/dL High 8.0-22.0 [facility] ([place] Comment on above: Performed By: #### P RO #### [address] [address] MGon 09-04-2022 Magnesium [Mass/Vol] 1.9 mg/dL Normal 1.6-2.4 [facility] ([place] Comment on above: Performed By: #### P RO #### [address] [address] .GFRon 09-03-2022 GFR 58 ml/min/1.73sqm Normal [facility] ([place] Comment on above: Result Comment: GFR Population [...] meters Performed By: #### P RO #### [address] [address] GFR Non- 48 ml/min/1.73sqm Normal [facility] ([place] Comment on above: Result Comment: GFR Population [...] meters Performed By: #### P RO #### [address] [address] [facility] 09-03-2022 BUN/Creatinine Ratio 29.8 ratio High 10.0-22.0 [facility] ([place] Comment on above: Performed By: #### P RO #### [address] [address] Calcium [Mass/Vol] 8.9 mg/dL Normal 8.7-10.4 [facility] ([place] Comment on above: Performed By: #### P RO #### [address] [address] Chloride [Moles/Vol] 108 mmol/L Normal 98-110 [facility] ([place] Comment on above: Performed By: #### P RO #### [address] [address] CO2 [Moles/Vol] 26 mmol/L Normal 22-32 [facility] ([place] Comment on above: Performed By: #### P RO #### [address] [address] Creatinine [Mass/Vol] 1.41 mg/dL High 0.60-1.40 [facility] ([place] Comment on above: Performed By: #### P RO #### [address] [address] Electrolyte Balance 9.0 mEq/L Normal 4.0-15.0 [facility] ([place]) Comment on above: Performed By: #### P RO #### [address] [address] Glucose [Mass/Vol] 106 mg/dL Normal 82-115 [facility] ([place]) Comment on above: Performed By: #### P RO #### [place] [id number] Potassium [Moles/Vol] 4.6 mmol/L Normal 3.5-5.0 [facility] ([place] Comment on above: Result Comment: Spec imen slightly hemolyzed. Performed By: #### P RO #### [address] [address] Sodium [Moles/Vol] 143 mmol/L Normal 136-145 [facility] ([place]) Comment on above: Performed By: #### P RO #### [address] [address] Urea nitrogen [Mass/Vol] 42.0 mg/dL High 8.0-22.0 [facility] ([place] Comment on above: Performed By: #### P RO #### [address] [address] SPEon 09-03-2022 SPE Interpretation The total protein and/or albumin is/are decreased. This may occur in liver disease, malnutrition, malabsorption syndromes, selective renal loss and following removal of large effusions, hemodialysis or apheresis. Normal [facility] ([place] Comment on above: Result Comment: Elec tronically Signed by: CANDY JAMA 09/03/2022 14:50 EDT Performed By: #### B MP, GFR #### [place] [address] Albumin 3.1 G/dL Low 3.3-5.0 [facility] ([place] Comment on above: Performed By: #### B MP, GFR #### [place] [id number] Alpha 1 0.3 G/dL Normal 0.1-0.4 [facility] ([place] Comment on above: Performed By: #### B MP, GFR #### [place] [id number] Alpha 2 1.0 G/dL Normal 0.6-1.2 [facility] ([place] Comment on above: Performed By: #### B MP, GFR #### [address] [address] Beta 1.1 G/dL Normal 0.6-1.3 [facility] ([place] Comment on above: Performed By: #### B MP, GFR #### [place] [id number] Gamma 1.0 G/dL Normal 0.7-1.6 [facility] ([place] Comment on above: Performed By: #### B MP, GFR #### [address] [address] CNPLatanya 09-02-2022 MADYN Telephone (FAMPWS) THANH COLEMAN ([id number]) 1935 M Date Time Provider Department 09/02/22 BOO MARINA During your visit today, we recorded the following information about you: Sahara Pathak RN 09/02/2022 9:20 AM Signed [facility] and asked to have Pts last OV note faxed to them. Faxed to # [phone]. Allergies As of Date: 09/02/2022 Noted Allergy [...] to affected area three times daily. - bzvamobo-qauceaokn-xtxy icidin (NEOMYCIN) 1.75 mg-10,000 unit-0.025mg/mL drop Apply 3 drops to each ear twice daily. - xuhfouic-tqoovxasm-kail ocortisone (CORTISPORIN) 3.5-10,000-1 mg/mL-unit/mL-% otic suspension Use [...] (FLONASE) 50 mcg/actuation nasal spray Use 1 Duncan in each nostril daily at bedtime. - [...] Asymptomatic LV dysfunction [I51.9] 08/10/2015 History of [place] (myocardial infarction) [I25.2] 08/10/2015 Stenosis of right [...] (chronic obstruct (more content not included)... Normal [facility] IFESon 09-02-2022 IFES Interpretation Immunofixation electrophoresis of serum shows the presence of only polyclonal immunoglobulins (IgG,A,M,Gypsy and Lambda), No monoclonal protein detected. Normal [facility] ([place] Comment on above: Result Comment: Elec tronically Signed by: CANDY JAMA 09/02/2022 14:04 EDT Performed By: #### B MP, GFR #### [address] [address] .GFRon 09-01-2022 GFR >60 Normal [facility] ([place] Comment on above: Result Comment: GFR Population [...] Performed By: #### G FR, BMP #### [address] [address] GFR Non- 52 ml/min/1.73sqm Normal [facility] ([place] Comment on above: Result Comment: GFR Population [...] Performed By: #### G FR, BMP #### [address] [address] BMPon 09-01-2022 BUN/Creatinine Ratio 24.4 ratio High 10.0-22.0 [facility] ([place] Comment on above: Performed By: #### G FR, BMP #### [address] [address] Calcium [Mass/Vol] 8.7 mg/dL Normal 8.7-10.4 [facility] ([place]) Comment on above: Performed By: #### [place] KHAN, BMP #### [address] [address] Chloride [Moles/Vol] 109 mmol/L Normal 98-110 [facility] ([place] Comment on above: Performed By: #### [place] KHAN, BMP #### [address] [address] CO2 [Moles/Vol] 26 mmol/L Normal 22-32 [facility] ([place] Comment on above: Performed By: #### [place] KHAN, BMP #### [address] [address] Creatinine [Mass/Vol] 1.31 mg/dL Normal 0.60-1.40 [facility] ([place] Comment on above: Performed By: #### [place] KHAN, BMP #### [place] [id number] Electrolyte Balance 6.0 mEq/L Normal 4.0-15.0 [facility] ([place]) Comment on above: Performed By: #### Savannah KHAN, BMP #### [place] [id number] Glucose [Mass/Vol] 217 mg/dL High 82-115 [facility] ([place]) Comment on above: Performed By: #### Savannah KHAN, BMP #### [address] [address] Potassium [Moles/Vol] 4.6 mmol/L Normal 3.5-5.0 [facility] ([place]) Comment on above: Performed By: #### Savannah KHAN, BMP #### [address] [address] Sodium [Moles/Vol] 141 mmol/L Normal 136-145 [facility] ([place] Comment on above: Performed By: #### Savannah KHAN, BMP #### [address] [address] Urea nitrogen [Mass/Vol] 32.0 mg/dL High 8.0-22.0 [facility] ([place] Comment on above: Performed By: #### G FR, BMP #### [address] [address] .GFRon 08-31-2022 GFR >60 Normal [facility] ([place] Comment on above: Result Comment: GFR Population [...] Performed By: #### B MP, GFR #### [place] [address] GFR Non- 51 ml/min/1.73sqm Normal [facility] ([place]) Comment on above: Result Comment: GFR Population [...] Performed By: #### B MP, GFR #### [place] [address] ALDOon 08-31-2022 Aldolase 3.0 U/L Normal 1.5-8.1 [facility] ([place]) Comment on above: Result Comment: This test was developed and its performance characteristics determined by [facility] [place] ([facility]). It has not been cleared or approved by the FDA. [facility] is regulated under CLIA as qualified to perform high-complexity testing. This test is used for clinical purposes. It should not be regarded as investigational or for research. Performed By: [facility] [place] [address] [place] [address] Spinning Mule Tender: Reggie Seth III, M.D. CLIA#: [id number] Performed By: #### B MP, GFR #### [address] [address] [facility] BUN/Creatinine Ratio 20.3 ratio Normal 10.0-22.0 [facility] ([place] Comment on above: Performed By: #### B MP, GFR #### [address] [address] Calcium [Mass/Vol] 8.8 mg/dL Normal 8.7-10.4 [facility] ([place] Comment on above: Performed By: #### B MP, GFR #### [address] [address] Chloride [Moles/Vol] 111 mmol/L High 98-110 [facility] ([place] Comment on above: Performed By: #### B MP, GFR #### [address] [address] CO2 [Moles/Vol] 29 mmol/L Normal 22-32 [facility] ([place] Comment on above: Performed By: #### B MP, GFR #### [address] [address] Creatinine [Mass/Vol] 1.33 mg/dL Normal 0.60-1.40 [facility] ([place] Comment on above: Performed By: #### B MP, GFR #### [address] [address] Electrolyte Balance 1.0 mEq/L Low 4.0-15.0 [facility] ([place] Comment on above: Performed By: #### B MP, GFR #### [address] [address] Glucose [Mass/Vol] 155 mg/dL High 82-115 [facility] ([place] Comment on above: Performed By: #### B MP, GFR #### [place] [id number] Potassium [Moles/Vol] 4.2 mmol/L Normal 3.5-5.0 [facility] ([place] Comment on above: Performed By: #### B MP, GFR #### [place] [id number] Sodium [Moles/Vol] 141 mmol/L Normal 136-145 [facility] ([place] Comment on above: Performed By: #### B MP, GFR #### [place] [id number] Urea nitrogen [Mass/Vol] 27.0 mg/dL High 8.0-22.0 [facility] ([place] Comment on above: Performed By: #### B MP, GFR #### [place] [address] CRYOon 08-31-2022 Cryoglobulin Negative Normal Negative [facility] ([place] Comment on above: Performed By: #### B MP, GFR #### [place] [address] .Auto Diffon 08-30-2022 Basophil, Absolute 0.0 10 3/mcL Normal 0.0-0.3 [facility] ([place]) Comment on above: Performed By: #### C BC, GFR, BMP, ANEU, ADIFF #### [address] [address] Basophils/100 WBC (Bld) 0.6 % Normal 0.0-2.5 [facility] ([place] Comment on above: Performed By: #### C BC, GFR, BMP, ANEU, ADIFF #### [place] [id number] Eosinophil, Absolute 0.2 10 3/mcL Normal 0.0-0.7 [facility] ([place] Comment on above: Performed By: #### C BC, GFR, BMP, ANEU, ADIFF #### [address] [address] Eosinophils/100 WBC (Bld) 2.5 % Normal 0.0-6.0 [facility] ([place] Comment on above: Performed By: #### C BC, GFR, BMP, ANEU, ADIFF #### [address] [address] Lymphocyte, Absolute 1.3 10 3/mcL Normal 0.9-4.3 [facility] ([place]) Comment on above: Performed By: #### C BC, GFR, BMP, ANEU, ADIFF #### [address] [address] Lymphocytes/100 WBC (Bld) 15.7 % Low 20.0-40.0 [facility] ([place]) Comment on above: Performed By: #### C BC, GFR, BMP, ANEU, ADIFF #### [address] [address] Monocyte, Absolute 1.1 10 3/mcL Normal 0.1-1.4 [facility] ([place]) Comment on above: Performed By: #### C BC, GFR, BMP, ANEU, ADIFF #### [address] [address] Monocytes/100 WBC (Bld) 13.3 % High 2.0-13.0 [facility] ([place]) Comment on above: Performed By: #### C BC, GFR, BMP, ANEU, ADIFF #### [address] [address] Neutrophils/100 WBC (Bld) 67.9 % Normal 50.0-75.0 [facility] ([place]) Comment on above: Performed By: #### C BC, GFR, BMP, ANEU, ADIFF #### [address] [address] .GFRon 08-30-2022 GFR >60 Normal [facility] ([place]) Comment on above: Result Comment: GFR Population [...] C BC, GFR, BMP, ANEU, ADIFF #### [address] [address] GFR Non- 56 ml/min/1.73sqm Normal [facility] ([place]) Comment on above: Result Comment: GFR Population [...] C BC, GFR, BMP, ANEU, ADIFF #### [place] [address] .NEUABSon 08-30-2022 Neutrophil, Absolute 5.4 10 3/mcL Normal 2.3-8.1 [facility] ([place] Comment on above: Performed By: #### C BC, GFR, BMP, ANEU, ADIFF #### [address] [address] A1Con 08-30-2022 HbA1c (Bld) [Mass fraction] 5.5 % Normal 4.0-6.0 [facility] ([place] Comment on above: Performed By: #### B MP, GFR #### [address] [address] HbA1c (Bld) [Mass fraction] 5.5 % Normal 4.0-6.0 [facility] ([place] Comment on above: Performed By: #### B MP, GFR #### [address] [address] B12on 08-30-2022 Cobalamin (Vitamin B12) [Mass/Vol] 339 pg/mL Normal 211-911 [facility] ([place] Comment on above: Performed By: #### B MP, GFR #### [address] [address] BMPon 08-30-2022 BUN/Creatinine Ratio 20.5 ratio Normal 10.0-22.0 [facility] ([place] Comment on above: Performed By: #### C BC, GFR, BMP, ANEU, ADIFF #### [address] [address] Calcium [Mass/Vol] 8.6 mg/dL Low 8.7-10.4 [facility] ([place] Comment on above: Performed By: #### C BC, GFR, BMP, ANEU, ADIFF #### [address] [address] Chloride [Moles/Vol] 110 mmol/L Normal 98-110 [facility] ([place] Comment on above: Performed By: #### C BC, GFR, BMP, ANEU, ADIFF #### [address] [address] CO2 [Moles/Vol] 27 mmol/L Normal 22-32 [facility] ([place] Comment on above: Performed By: #### C BC, GFR, BMP, ANEU, ADIFF #### [address] [address] Creatinine [Mass/Vol] 1.22 mg/dL Normal 0.60-1.40 [facility] ([place]) Comment on above: Performed By: #### C BC, GFR, BMP, ANEU, ADIFF #### [address] [address] Electrolyte Balance 7.0 mEq/L Normal 4.0-15.0 [facility] ([place]) Comment on above: Performed By: #### C BC, GFR, BMP, ANEU, ADIFF #### [place] [id number] Glucose [Mass/Vol] 94 mg/dL Normal 82-115 [facility] ([place] Comment on above: Performed By: #### C BC, GFR, BMP, ANEU, ADIFF #### [place] [id number] Potassium [Moles/Vol] 4.0 mmol/L Normal 3.5-5.0 [facility] ([place] Comment on above: Performed By: #### C BC, GFR, BMP, ANEU, ADIFF #### [place] [id number] Sodium [Moles/Vol] 144 mmol/L Normal 136-145 [facility] ([place] Comment on above: Performed By: #### C BC, GFR, BMP, ANEU, ADIFF #### [place] [address] Urea nitrogen [Mass/Vol] 25.0 mg/dL High 8.0-22.0 [facility] ([place] Comment on above: Performed By: #### C BC, GFR, BMP, ANEU, ADIFF #### [address] [address] CBCon 08-30-2022 Erythrocyte distribution width (RBC) [Ratio] 14.0 % Normal 11.5-15.5 [facility] ([place] Comment on above: Performed By: #### C BC, GFR, BMP, ANEU, ADIFF #### [place] [id number] Hematocrit (Bld) [Volume fraction] 39.2 % Low 40.0-52.0 [facility] ([place] Comment on above: Performed By: #### C BC, GFR, BMP, ANEU, ADIFF #### [place] [id number] Hgb 13.0 G/dL Normal 13.0-17.5 [facility] ([place] Comment on above: Performed By: #### C BC, GFR, BMP, ANEU, ADIFF #### [place] [address] MCH (RBC) [Entitic mass] 30.4 pg Normal 27.0-33.0 [facility] ([place] Comment on above: Performed By: #### C BC, GFR, BMP, ANEU, ADIFF #### [place] [address] MCHC 33.3 G/dL Normal 32.0-36.0 [facility] ([place] Comment on above: Performed By: #### C BC, GFR, BMP, ANEU, ADIFF #### [place] [address] MCV (RBC) [Entitic vol] 91.5 fL Normal 81.0-100.0 [facility] ([place] Comment on above: Performed By: #### C BC, GFR, BMP, ANEU, ADIFF #### [place] [address] Platelet 161 10 3/mcL Normal 150-450 [facility] ([place] Comment on above: Performed By: #### C BC, GFR, BMP, ANEU, ADIFF #### [place] [address] Platelet mean volume (Bld) [Entitic vol] 8.9 fL Normal 6.4-10.5 [facility] ([place] Comment on above: Performed By: #### C BC, GFR, BMP, ANEU, ADIFF #### [place] [address] RBC 4.28 10 6/mcL Low 4.50-6.00 [facility] ([place] Comment on above: Performed By: #### C BC, GFR, BMP, ANEU, ADIFF #### [place] [address] WBC 8.0 10 3/mcL Normal 4.5-10.8 [facility] ([place] Comment on above: Performed By: #### C BC, GFR, BMP, ANEU, ADIFF #### [place] [address] CKon 08-30-2022 CK [Catalytic activity/Vol] 114 U/L Normal 7-185 [facility] ([place]) Comment on above: Performed By: #### B MP, GFR #### [place] [address] Rissa 08-30-2022 CNPN Telephone (FAMPWS) THANH COLEMAN ([id number]) 1935 M Date Time Provider Department 08/30/22 BOO MARINA FAMPWS During your visit today, we recorded the following information about you: Pam Goff RN 08/30/2022 2:09 PM Signed Jocelyn Lopez LPN with [facility] calling and requesting pt's most recent PCP OV note be faxed to her at [phone]. Contacted patient to verify services being received by this company and pt reports he does receive services from them and gives his consent to fax information as requested. Faxed as requested. Pma Goff RN Allergies As of Date: 08/30/2022 [...] to affected area three times daily. - cdqpsnks-wiaoxjyku-wzvr icidin (NEOMYCIN) 1.75 mg-10,000 unit-0.025mg/mL drop Apply 3 drops to each ear twice daily. - jtitywvp-dtfysubaz-vnrz ocortisone (CORTISPORIN) 3.5-10,000-1 mg/mL-unit/mL-% otic suspension Use [...] (FLONASE) 50 mcg/actuation nasal spray Use 1 Duncan in each nostril daily at bedtime. - [...] Asymptomatic LV dysfunction [I51.9] 08/10/2015 History of [place] (myocardial infarction) [I25.2] 08/10/2015 Stenosis of right [...] 06/22/2020 Neuropathy (HCC) [G62.9] Thrombocytopenia (HCC) [D69.6] Hypertr (more content not included)... Normal [facility] CRPon 08-30-2022 C-Reactive Protein 9.4 mg/dL High 0.0-1.0 [facility] ([place] Comment on above: Result Comment: No te - New Reference Range in effect 19 Performed By: #### B MP, GFR #### [address] [address] ESRon 08-30-2022 Erythrocyte Sed Rate 82 mm/hr High 0-20 [facility] ([place]) Comment on above: Performed By: #### B MP, GFR #### [address] [address] LIPIDon 08-30-2022 Cholesterol [Mass/Vol] 102 mg/dL Normal 50-199 [facility] ([place]) Comment on above: Result Comment: Chol esterol Reference Interval: Less than 200 Desirable 200-239 Borderline high risk 240 and above High risk Performed By: #### B MP, GFR #### [address] [address] Cholesterol in HDL [Mass/Vol] 33 mg/dL Low 40-59 [facility] ([place]) Comment on above: Performed By: #### B MP, GFR #### [address] [address] Cholesterol in LDL [Mass/Vol] 41 mg/dL Normal 0-129 [facility] ([place]) Comment on above: Performed By: #### B MP, GFR #### [address] [address] Triglyceride [Mass/Vol] 138 mg/dL Normal 3-149 [facility] ([place]) Comment on above: Performed By: #### B MP, GFR #### [address] [address] SPEon 08-30-2022 Total Protein 6.6 G/dL Normal 5.7-8.2 [facility] ([place]) Comment on above: Result Comment: No te - New Reference Range in effect 19 Performed By: #### B MP, GFR #### [place] [address] APTTon 08-29-2022 aPTT Coag (Bld) [Time] 29.6 s Normal 25.4 - 38.4 [facility] Comment on above: Performed By: #### 2 53823 #### [facility],[address] [place] [address] C-REACTIVE PROTEINon 023 CRP 4.30 mg/dl High 0.00 - 0.90 [facility] Comment on above: Performed By: #### 2 50717 #### [facility],[address] [place] [address] CBC + DIFFon 08-29-2022 Baso # 0.00 x10EE3/UL Normal 0.00 - 0.10 [facility] Comment on above: Performed By: #### 2 47726 #### [facility],[address] [place] [address] Basophils/100 WBC (Bld) 0.5 % Normal 0.0 - 2.0 [facility] Comment on above: Performed By: #### 2 45541 #### [address] [address] CBC + DIFF Normal [facility] Comment on above: Result Comment: CBC- COMPLETE BLOOD COUNT Performed By: #### 2 68888 #### [facility],[address] [place] [address] EO # 0.20 x10EE3/UL Normal 0.00 - 0.50 [facility] Comment on above: Performed By: #### 2 04713 #### [facility],[address] [place] [address] Eosinophils/100 WBC (Bld) 2.0 % Normal 0.0 - 7.0 [facility] Comment on above: Performed By: #### 2 09779 #### [facility],[address] [place] [address] Erythrocyte distribution width (RBC) [Ratio] 14.0 % Normal 12.0 - 15.6 [facility] Comment on above: Performed By: #### 2 49343 #### [facility],[address] [place] [address] Hematocrit (Bld) [Volume fraction] 46.0 % Normal 40.0 - 52.0 [facility] Comment on above: Performed By: #### 2 21069 #### [facility],[address] [place] [address] Hemoglobin (Bld) [Mass/Vol] 15.2 g/dL Normal 13.0 - 17.5 [facility] Comment on above: Performed By: #### 2 75181 #### [facility],[address] [place] [address] Lymph # 1.00 x10EE3/UL Normal 0.80 - 2.80 [facility] Comment on above: Performed By: #### 2 14090 #### [facility],[address] [place] [address] Lymphocytes/100 WBC (Bld) 11.3 % Low 20.0 - 45.0 [facility] Comment on above: Performed By: #### 2 94090 #### [facility],[address] [place] [address] MANUAL DIFF N/A Normal [facility] Comment on above: Performed By: #### 2 64394 #### [facility],[address] [place], [place] [address] MCH (RBC) [Entitic mass] 30 pg Normal 27 - 33 [facility] Comment on above: Performed By: #### 2 43034 #### [facility],[address] [place] [address] MCHC 33 X10 3 Normal 32 - 36 [facility] Comment on above: Performed By: #### 2 51246 #### [facility],[address] [place] [address] MCV (RBC) [Entitic vol] 92 fL Normal 81 - 98 [facility] Comment on above: Performed By: #### 2 89125 #### [facility],[address] [place] [address] [place] # 0.90 x10EE3/UL Normal 0.20 - 1.00 [facility] Comment on above: Performed By: #### 2 84618 #### [facility],[address] [place] [address] MONOS % 9.6 % Normal 0.0 - 10.0 [facility] Comment on above: Performed By: #### 2 99690 #### [facility],[address] [place] [address] Morphology Jose (Bld) [Interp] N/A Normal [facility] Comment on above: Performed By: #### 2 66458 #### [facility],[address] [place] [address] Neut # 7.00 x10EE3/UL Normal 1.50 - 7.10 [facility] Comment on above: Performed By: #### 2 92171 #### [facility],[address] [place] [address] Neutrophils/100 WBC (Bld) 76.6 % High 46.0 - 76.0 [facility] Comment on above: Performed By: #### 2 62082 #### [facility],[address] [place] [address] PLATELET 206 x10EE3/UL Normal 150 - 450 [facility] Comment on above: Performed By: #### 2 02929 #### [facility],[address] [place] [address] Platelet mean volume (Bld) [Entitic vol] 9.2 fL Normal 6.4 - 10.5 [facility] Comment on above: Result Comment: AUTO MATED DIFFERENTIAL Performed By: #### 2 93211 #### [facility],[address] [place] [address] RBC 5.03 x 10EE6/UL Normal 4.50 - 6.00 [facility] Comment on above: Performed By: #### 2 55615 #### [facility],[address] [place] [address] WBC 9.1 x 10EE3/UL Normal 4.5 - 10.8 [facility] Comment on above: Performed By: #### 2 99337 #### [facility],[address] [place] [address] CMP with eGFRon 08-29-2022 AGE 86 years Normal [facility] Comment on above: Performed By: #### 2 29299 #### [facility],[address] [place] [address] Albumin [Mass/Vol] 3.8 g/dL Normal 3.4 - 5.0 [facility] Comment on above: Performed By: #### 2 81316 #### [facility],[address] [place] [address] Albumin/Globulin [Mass ratio] 0.9 {ratio} Normal 0.9 - 1.6 [facility] Comment on above: Performed By: #### 2 25800 #### [facility],[address] [place] [address] ALK PHOS 84 U/L Normal 46 - 116 [facility] Comment on above: Performed By: #### 2 05468 #### [facility],[address] [place] [address] ALT [Catalytic activity/Vol] 16 U/L Normal 16 - 63 [facility] Comment on above: Performed By: #### 2 84843 #### [facility],[address] [place] [address] Anion gap [Moles/Vol] 9 mmol/L Low 10 - 20 [facility] Comment on above: Performed By: #### 2 05741 #### [facility],[address] [place] [address] AST [Catalytic activity/Vol] 19 U/L Normal 15 - 37 [facility] Comment on above: Performed By: #### 2 64581 #### [facility],[address] [place] [address] B/C RATIO 18 ratio Normal 0 - 30 [facility] Comment on above: Performed By: #### 2 09942 #### [facility],[address] [place] [address] Bilirubin [Mass/Vol] 0.8 mg/dL Normal 0.2 - 1.0 [facility] Comment on above: Performed By: #### 2 18023 #### [facility],[address] [place] [address] Calcium [Mass/Vol] 9.5 mg/dL Normal 8.5 - 10.1 [facility] Comment on above: Performed By: #### 2 88667 #### [facility],[address] [place] [address] Chloride [Moles/Vol] 94 mmol/L Low 98 - 107 [facility] Comment on above: Performed By: #### 2 99771 #### [facility],[address] [place] [address] CMP with eGFR Normal [facility] Comment on above: Result Comment: COMP REHENSIVE METABOLIC PANEL Performed By: #### 2 82111 #### [facility],[address] [place] [address] CO2 [Moles/Vol] 28.8 mmol/L Normal 21.0 - 32.0 [facility] Comment on above: Performed By: #### 2 47573 #### [facility],[address] [place] [address] Creatinine [Mass/Vol] 1.37 mg/dL High 0.70 - 1.30 [facility] Comment on above: Performed By: #### 2 34747 #### [facility],[address] [place] [address] eGFR 49 ML/MINUTE Low 60 - 999 [facility] Comment on above: Performed By: #### 2 36227 #### [address] [address] eGFR(AA) 60 ML/MINUTE Normal 60 - 999 [facility] Comment on above: Result Comment: ACCO RDING TO THE NATIONAL KIDNEY DISEASE EDUCATION PROGRAM(NKDE), A NORMAL eGFR IS A VALUE GREATER THAN OR EQUAL TO 60 ML/MIN/1.73 SQ METERS. CHRONIC KIDNEY DISEASE: <60mL/MIN/1.73 SQ METERS KIDNEY FAILURE: <15mL/MIN/1.73 SQ METERS THIS TEST SHOULD ONLY BE USED FOR PATIENTS 18 YEARS OF AGE AND OLDER. Performed By: #### 2 01478 #### [address] [address] Globulin (S) [Mass/Vol] 4.4 g/dL High 1.5 - 3.8 [facility] Comment on above: Performed By: #### 2 04935 #### [address] [address] Glucose [Mass/Vol] 102 mg/dL Normal 74 - 106 [facility] Comment on above: Performed By: #### 2 11631 #### [address] [address] Potassium [Moles/Vol] 3.8 mmol/L Normal 3.5 - 5.1 [facility] Comment on above: Performed By: #### 2 55149 #### [address] [address] Protein [Mass/Vol] 8.2 g/dL Normal 6.4 - 8.2 [facility] Comment on above: Performed By: #### 2 72755 #### [address],[place] [address] Sodium [Moles/Vol] 128 mmol/L Low 136 - 145 [facility] Comment on above: Performed By: #### 2 32019 #### [facility],[address] [place] [address] Urea nitrogen [Mass/Vol] 25 mg/dL High 7 - 18 [facility] Comment on above: Performed By: #### 2 41112 #### [facility],[address] [place] [address] CPKon 08-29-2022 CPK 30 U/L Low 39 - 308 [facility] Comment on above: Performed By: #### 2 82295 #### [facility],[address] [place] [address] CHEST/ABD/PELVIS C+on CT CHEST/ABD/PELVIS C+ [place] [address] Patient: THANH COLEMAN Phone#: : [phone] Age: 86 Gender: M Pt. Type: ER Account: [id number] Location: [facility] Ordering: SATNAM MADRID Exam Date: 08/29/2022/14:59 Family Phys: DR. BOO MARINA D.O. Charge Code: 142546 Physician: Geary Order #: [id number] Dose#: 26.10 mGy PROCEDURE: CT CHEST/ABD/PELVIS W COMPARISON: [facility], CT, CHEST/ABDOMEN/PELVIS W CON, 12/23/2019, 19:53. INDICATIONS: [...] 86 Gender: M Pt. Type: ER Account: [id number] Location: [facility] Ordering: SATNAM MADRID Exam Date: 08/29/2022/14:59 Family Phys: DR. BOO MARINA D.O. Charge Code: 444602 Physician: Geary Order #: [id number] Dose#: 26.10 mGy prior exam of 4.5 [...] Rosas MD on 08/29/2022 at 15:33 Normal [facility] LIPASEon 08-29-2022 Lipase [Catalytic activity/Vol] 88.0 U/L Normal 73.0 - 393 [facility] Comment on above: Performed By: #### 2 15364 #### [place] [address] PROTHROMBIN TIME AND INRon 0 08-29-2022 INR Coag (PPP) [Relative time] 1.1 {INR} Normal 0.8 - 1.2 [facility] Comment on above: Result Comment: T [...] MECHANICAL HEART VALVES Performed By: #### 2 56483 #### [facility],[address] [place] [address] PROTHROMBIN TIME AND INR Normal [facility] Comment on above: Result Comment: PROT HROMBIN TIME AND INR Performed By: #### 2 14405 #### [facility],[address] [place], [place] [address] PT-COUMADIN 13.2 sec Normal 9.3 - 14.1 [facility] Comment on above: Performed By: #### 2 06547 #### [facility],[address] [place], [place] [id number] SEDRATEon 08-29-2022 SEDRATE 53 mm/hr High 0 - 20 [facility] Comment on above: Performed By: #### 2 84051 #### [facility],[address] [place] [address] URINALYSISon 08-29-2022 Amorphous NONE Normal [facility] Comment on above: Performed By: #### 2 43620 #### [facility],[address] [place] [address] Bacteria 1+ Normal [facility] Comment on above: Performed By: #### 2 13794 #### [facility],[address] [place] [address] Bilirubin Ql (U) Negative Normal NORMAL: NEGATIVE [facility] Comment on above: Performed By: #### 2 26635 #### [facility],[address] [place] [address]27 Casts NONE Normal [facility] Comment on above: Performed By: #### 2 40365 #### [facility],[address] [place] [address] Clarity (U) clear Normal NORMAL: CLEAR [facility] Comment on above: Performed By: #### 2 20085 #### [facility],[address] [place] [address] 58480 Color (U) p.yel Normal NORMAL: YELLOW [facility] Comment on above: Performed By: #### 2 31285 #### [facility],[address] [place] [address] 98032 Crystals LM Nom (Urine sed) NONE Normal [facility] Comment on above: Performed By: #### 2 62445 #### [facility],[address] [place] [address] 55196 Epi Cells NONE Normal [facility] Comment on above: Performed By: #### 2 79889 #### [facility],[address] [place] [address] 38236 Glucose Ql (U) NORM Normal NORMAL: NORMAL [facility] Comment on above: Performed By: #### 2 50978 #### [facility],[address] [place] [address] 47127 Hemoglobin Ql (U) 50 Abnormal NORMAL: NEGATIVE [facility] Comment on above: Performed By: #### 2 45509 #### [facility],[address] [place] [address] 93483 Ketone Negative Normal NORMAL: NEGATIVE [facility] Comment on above: Performed By: #### 2 79007 #### [facility],[address] [place] [address] 93342 Leukocytes Negative Normal NORMAL: NEGATIVE [facility] Comment on above: Performed By: #### 2 85182 #### [facility],[address] [place] [address] 80221 Mucous NONE Normal [facility] Comment on above: Performed By: #### 2 63201 #### [facility],[address] [place] [address] 23147 Nitrite Ql (U) Negative Normal NORMAL: NEGATIVE [facility] Comment on above: Performed By: #### 2 51246 #### [facility],[address] [place] [address] 03147 pH (U) 8 [pH] Normal NORMAL: 5.0-8.0 [facility] Comment on above: Performed By: #### 2 49723 #### [facility],[address] [place] [address] 40648 Protein Ql (U) Negative Normal NORMAL: NEGATIVE [facility] Comment on above: Performed By: #### 2 20615 #### [facility],[address] [place] [address] 39357 Rbc 5-10 Normal 0-3/hpf [facility] Comment on above: Performed By: #### 2 45896 #### [facility],[address] [place] [address] 93977 Sp Cannon 1.010 Normal NORMAL: 1.010-1.030 [facility] Comment on above: Performed By: #### 2 34772 #### [facility],[address] [place] [address] Specimen Type Void Normal [facility] Comment on above: Performed By: #### 2 93192 #### [facility],[address] [place] [address] Urinalysis dipstick W Reflex Microscopic panel (U) SEE BELOW Normal [facility] Comment on above: Result Comment: MICR OSCOPIC Performed By: #### 2 98844 #### [facility],[address] [place] [address] Urobilinog NORM Normal NORMAL: NORMAL [facility] Comment on above: Performed By: #### 2 83734 #### [facility],[address] [place] [address] Wbc NONE Normal 0-5/hpf [facility] Comment on above: Performed By: #### 2 61603 #### [facility],[address] [place] [address] Yeast NONE Normal [facility] Comment on above: Performed By: #### 2 21000 #### [facility],[address] [place] [address] FOOT 2 VIEW RTon 08-24-2022 FOOT 2 VIEW [place] [address] Patient: THANH COLEMAN Phone#: : 1935 Age: 86 Gender: M Pt. Type: ER Account: [id number] Location: [facility] Ordering: DR. PICKERING IHEONUNEKWU Exam Date: 08/24/2022/0:53 Family Phys: DR. BOO MARINA D.O. Charge Code: 681710 Physician: Geary Order #: [id number] Dose#: PROCEDURE: X-RAY FOOT RT 2 VIEWS [...] Martinez MD on 08/24/2022 at 16:53 Normal [facility] TIBIA-FIBULA RTon 08-24-2022 TIBIA-FIBULA RT [place] [address] Patient: THANH COLEMAN Phone#: : 1935 Age: 86 Gender: M Pt. Type: ER Account: [id number] Location: [facility] Ordering: DR. LADAN HUERTASUNEKWU Exam Date: 08/24/2022/0:49 Family Phys: DR. BOO MARINA D.O. Charge Code: 838740 Physician: Geary Order #: [id number] Dose#: PROCEDURE: X-RAY TIB FIB RT 2 [...] Martinez MD on 08/24/2022 at 16:48 Normal [facility] EMERGENCY REPORTon EMERGENCY REPORT [facility] EMERGENCY ROOM REPORT NAME ACCOUNT SEX AGE ADMIT DISCHARGE PT MED. RECORD# NUMBER DATE DATE TYPE THANH COLEMAN [id number] M 86 08/08/22 2 [id number] ROOM: [facility] DATE OF : 1935 DICTATING PHYSICIAN: Mitra Wallace HISTORY OF PRESENT ILLNESS: The patient is [...] the patient having no significant dysmetria on obhybu-nx-fwzj testing. The patient does have baseline tremor [...] 80 without leukocytosis, Page 1 of 2 [facility]LEMANALD Emergency Room Report THANH COLEMAN : 1935 [...] be admitted for this. Dictated By: Mitra Wallace DO 08/08/22 02:20 JOB #: [id number] Transcribed By: am 08/08/22 08:00 Electronically signed by: Dr. Mitra Wallace DO 08/18/22 19:28 Page 2 of 2 [facility] Emergency Room Report Normal [facility] BMP with eGFRon 08-09-2022 AGE 86 years Normal [facility] Comment on above: Performed By: #### 2 55602 #### [facility],[address] [place] [address] 29251 Anion gap [Moles/Vol] 14 mmol/L Normal 10 - 20 [facility] Comment on above: Performed By: #### 2 08325 #### [facility],[address] [place] [address] 68212 BMP with eGFR Normal [facility] Comment on above: Result Comment: BASI C METABOLIC PANEL Performed By: #### 2 92195 #### [facility],[address] [place] [address] 15430 Calcium [Mass/Vol] 9.0 mg/dL Normal 8.5 - 10.1 [facility] Comment on above: Performed By: #### 2 23195 #### [facility],[address] [place] [address] 88822 Chloride [Moles/Vol] 103 mmol/L Normal 98 - 107 [facility] Comment on above: Performed By: #### 2 69533 #### [facility],[address] [place] [address] 08475 CO2 [Moles/Vol] 23.9 mmol/L Normal 21.0 - 32.0 [facility] Comment on above: Performed By: #### 2 90811 #### [facility],[address] [place] [address] 67872 Creatinine [Mass/Vol] 1.65 mg/dL High 0.70 - 1.30 [facility] Comment on above: Performed By: #### 2 75069 #### [facility],[address] [place] [address] 95007 eGFR 40 ML/MINUTE Low 60 - 999 [facility] Comment on above: Performed By: #### 2 23043 #### [facility],[address] [place] [address] 55655 eGFR(AA) 48 ML/MINUTE Low 60 - 999 [facility] Comment on above: Result Comment: ACCO RDING TO THE NATIONAL KIDNEY DISEASE EDUCATION PROGRAM(NKDE), A NORMAL eGFR IS A VALUE GREATER THAN OR EQUAL TO 60 ML/MIN/1.73 SQ METERS. CHRONIC KIDNEY DISEASE: <60mL/MIN/1.73 SQ METERS KIDNEY FAILURE: <15mL/MIN/1.73 SQ METERS THIS TEST SHOULD ONLY BE USED FOR PATIENTS 18 YEARS OF AGE AND OLDER. Performed By: #### 2 44032 #### [facility],[address] [place] [address] 96222 Glucose [Mass/Vol] 90 mg/dL Normal 74 - 106 [facility] Comment on above: Performed By: #### 2 06738 #### [address] [address] Potassium [Moles/Vol] 4.0 mmol/L Normal 3.5 - 5.1 [facility] Comment on above: Performed By: #### 2 09931 #### [address] [address] Sodium [Moles/Vol] 137 mmol/L Normal 136 - 145 [facility] Comment on above: Performed By: #### 2 63137 #### [address] [address] Urea nitrogen [Mass/Vol] 51 mg/dL High 7 - 18 [facility] Comment on above: Performed By: #### 2 94835 #### [address] [address] CBC + DIFFon 08-09-2022 Baso # 0.10 x10EE3/UL Normal 0.00 - 0.10 [facility] Comment on above: Performed By: #### 2 09675 #### [address] [address] Basophils/100 WBC (Bld) 0.6 % Normal 0.0 - 2.0 [facility] Comment on above: Performed By: #### 2 25435 #### [facility],[address] [place] [address] 93027 CBC + DIFF Normal [facility] Comment on above: Result Comment: CBC- COMPLETE BLOOD COUNT Performed By: #### 2 71283 #### [facility],[address] [place] [address] 87360 EO # 0.10 x10EE3/UL Normal 0.00 - 0.50 [facility] Comment on above: Performed By: #### 2 51840 #### [facility],[address] [place], [place] [address] Eosinophils/100 WBC (Bld) 1.6 % Normal 0.0 - 7.0 [facility] Comment on above: Performed By: #### 2 90438 #### [facility],[address] [place] [address] Erythrocyte distribution width (RBC) [Ratio] 14.4 % Normal 12.0 - 15.6 [facility] Comment on above: Performed By: #### 2 53835 #### [facility],[address] [place], [place] [address] Hematocrit (Bld) [Volume fraction] 39.9 % Low 40.0 - 52.0 [facility] Comment on above: Performed By: #### 2 25082 #### [facility],[address] [place], [place] [address] Hemoglobin (Bld) [Mass/Vol] 13.5 g/dL Normal 13.0 - 17.5 [facility] Comment on above: Performed By: #### 2 29747 #### [facility],[address] [place] [address] 09600 Lymph # 2.00 x10EE3/UL Normal 0.80 - 2.80 [facility] Comment on above: Performed By: #### 2 43490 #### [facility],[address] [place] [address] 04550 Lymphocytes/100 WBC (Bld) 21.9 % Normal 20.0 - 45.0 [facility] Comment on above: Performed By: #### 2 41355 #### [facility],[address] [place] [address] MANUAL DIFF N/A Normal [facility] Comment on above: Performed By: #### 2 12623 #### [facility],[address] [place] [address] MCH (RBC) [Entitic mass] 31 pg Normal 27 - 33 [facility] Comment on above: Performed By: #### 2 14254 #### [facility],[address] [place] [address] MCHC 34 X10 3 Normal 32 - 36 [facility] Comment on above: Performed By: #### 2 96870 #### [facility],[address] [place] [address] MCV (RBC) [Entitic vol] 93 fL Normal 81 - 98 [facility] Comment on above: Performed By: #### 2 65166 #### [facility],[address] [place] [address] [place]calm # 0.80 x10EE3/UL Normal 0.20 - 1.00 [facility] Comment on above: Performed By: #### 2 29687 #### [facility],[address] [place] [address] MONOS % 8.8 % Normal 0.0 - 10.0 [facility] Comment on above: Performed By: #### 2 06383 #### [facility],[address] [place] [address] Morphology Jose (Bld) [Interp] N/A Normal [facility] Comment on above: Performed By: #### 2 48871 #### [facility],[address] [place] [address] Neut # 6.00 x10EE3/UL Normal 1.50 - 7.10 [facility] Comment on above: Performed By: #### 2 89437 #### [facility],[address] [place] [address] Neutrophils/100 WBC (Bld) 67.1 % Normal 46.0 - 76.0 [facility] Comment on above: Performed By: #### 2 56708 #### [facility],[address] [place], [place] [address] PLATELET 171 x10EE3/UL Normal 150 - 450 [facility] Comment on above: Performed By: #### 2 81208 #### [facility],[address] [place] [address] Platelet mean volume (Bld) [Entitic vol] 9.8 fL Normal 6.4 - 10.5 [facility] Comment on above: Result Comment: AUTO MATED DIFFERENTIAL Performed By: #### 2 87289 #### [facility],[address] [place] [address] RBC 4.30 x 10EE6/UL Low 4.50 - 6.00 [facility] Comment on above: Performed By: #### 2 17252 #### [facility],[address] [place] [address] WBC 8.9 x 10EE3/UL Normal 4.5 - 10.8 [facility] Comment on above: Performed By: #### 2 65078 #### [facility],[address] [place] [address] BMP with eGFRon 08-08-2022 AGE 86 years Normal [facility] Comment on above: Performed By: #### 2 18847 #### [facility],[address] [place], [place] [address] Anion gap [Moles/Vol] 15 mmol/L Normal - [facility] Comment on above: Performed By: #### 2 24538 #### [facility],[address] [place] [address] BMP with eGFR Normal [facility] Comment on above: Result Comment: BASI C METABOLIC PANEL Performed By: #### 2 69150 #### [facility],[address] [place] [address] 69202 Calcium [Mass/Vol] 9.2 mg/dL Normal 8.5 - 10.1 [facility] Comment on above: Performed By: #### 2 29702 #### [facility],[address] [place] [address] 55267 Chloride [Moles/Vol] 106 mmol/L Normal 98 - 107 [facility] Comment on above: Performed By: #### 2 30074 #### [facility],[address] [place] [address] 89848 CO2 [Moles/Vol] 26.0 mmol/L Normal 21.0 - 32.0 [facility] Comment on above: Performed By: #### 2 02367 #### [facility],[address] [place] [address] 23146 Creatinine [Mass/Vol] 1.49 mg/dL High 0.70 - 1.30 [facility] Comment on above: Performed By: #### 2 37384 #### [facility],[address] [place] [address] 65233 eGFR 45 ML/MINUTE Low 60 - 999 [facility] Comment on above: Performed By: #### 2 66796 #### [facility],[address] [place] [address] 42393 eGFR(AA) 54 ML/MINUTE Low 60 - 999 [facility] Comment on above: Result Comment: ACCO RDING TO THE NATIONAL KIDNEY DISEASE EDUCATION PROGRAM(NKDE), A NORMAL eGFR IS A VALUE GREATER THAN OR EQUAL TO 60 ML/MIN/1.73 SQ METERS. CHRONIC KIDNEY DISEASE: <60mL/MIN/1.73 SQ METERS KIDNEY FAILURE: <15mL/MIN/1.73 SQ METERS THIS TEST SHOULD ONLY BE USED FOR PATIENTS 18 YEARS OF AGE AND OLDER. Performed By: #### 2 33964 #### [facility],[address] [place] [address] 79164 Glucose [Mass/Vol] 92 mg/dL Normal 74 - 106 [facility] Comment on above: Performed By: #### 2 81763 #### [facility],[address] [place] [address] 14334 Potassium [Moles/Vol] 4.2 mmol/L Normal 3.5 - 5.1 [facility] Comment on above: Performed By: #### 2 09579 #### [facility],[address] [place] [address] 00333 Sodium [Moles/Vol] 143 mmol/L Normal 136 - 145 [facility] Comment on above: Performed By: #### 2 04045 #### [facility],[address] [place] [address] 10921 Urea nitrogen [Mass/Vol] 34 mg/dL High 7 - 18 [facility] Comment on above: Performed By: #### 2 89018 #### [facility],[address] [place] [address] 88303 CBC + DIFFon 08-08-2022 Baso # 0.10 x10EE3/UL Normal 0.00 - 0.10 [facility] Comment on above: Performed By: #### 2 46585 #### [facility],[address] [place] [address] 80472 Basophils/100 WBC (Bld) 1.0 % Normal 0.0 - 2.0 [facility] Comment on above: Performed By: #### 2 61239 #### [facility],[address] [place] [address] 94419 CBC + DIFF Normal [facility] Comment on above: Result Comment: CBC- COMPLETE BLOOD COUNT Performed By: #### 2 82801 #### [facility],[address] [place] [address] 98661 EO # 0.30 x10EE3/UL Normal 0.00 - 0.50 [facility] Comment on above: Performed By: #### 2 81778 #### [facility],[address] [place] [address] 61957 Eosinophils/100 WBC (Bld) 3.0 % Normal 0.0 - 7.0 [facility] Comment on above: Performed By: #### 2 98952 #### [facility],[address] [place], [place] [address] Erythrocyte distribution width (RBC) [Ratio] 13.9 % Normal 12.0 - 15.6 [facility] Comment on above: Performed By: #### 2 97012 #### [facility],[address] [place] [address] Hematocrit (Bld) [Volume fraction] 45.6 % Normal 40.0 - 52.0 [facility] Comment on above: Performed By: #### 2 19523 #### [facility],[address] [place] [address] Hemoglobin (Bld) [Mass/Vol] 15.2 g/dL Normal 13.0 - 17.5 [facility] Comment on above: Performed By: #### 2 96772 #### [facility],[address] [place] [address] 08472 Lymph # 1.20 x10EE3/UL Normal 0.80 - 2.80 [facility] Comment on above: Performed By: #### 2 91255 #### [facility],[address] [place] [address] 21586 Lymphocytes/100 WBC (Bld) 13.6 % Low 20.0 - 45.0 [facility] Comment on above: Performed By: #### 2 48751 #### [facility],[address] [place] [address] 72965 MANUAL DIFF N/A Normal [facility] Comment on above: Performed By: #### 2 89271 #### [facility],[address] [place] [address] 08646 MCH (RBC) [Entitic mass] 31 pg Normal 27 - 33 [facility] Comment on above: Performed By: #### 2 36489 #### [facility],[address] [place] [address] MCHC 33 X10 3 Normal 32 - 36 [facility] Comment on above: Performed By: #### 2 23814 #### [facility],[address] [place] [address] 43610 MCV (RBC) [Entitic vol] 92 fL Normal 81 - 98 [facility] Comment on above: Performed By: #### 2 88222 #### [facility],[address] [place] [address] [place] # 0.90 x10EE3/UL Normal 0.20 - 1.00 [facility] Comment on above: Performed By: #### 2 36155 #### [facility],[address] [place] [address] MONOS % 10.9 % High 0.0 - 10.0 [facility] Comment on above: Performed By: #### 2 40340 #### [facility],[address] [place], [place] [address] Morphology Jose (Bld) [Interp] N/A Normal [facility] Comment on above: Performed By: #### 2 29591 #### [facility],[address] [place] [address] Neut # 6.00 x10EE3/UL Normal 1.50 - 7.10 [facility] Comment on above: Performed By: #### 2 44887 #### [facility],[address] [place], [place] [address] Neutrophils/100 WBC (Bld) 71.5 % Normal 46.0 - 76.0 [facility] Comment on above: Performed By: #### 2 75747 #### [facility],[address] [place], [place] [address] PLATELET 177 x10EE3/UL Normal 150 - 450 [facility] Comment on above: Performed By: #### 2 17808 #### [facility],[address] [place] [address] 04721 Platelet mean volume (Bld) [Entitic vol] 9.3 fL Normal 6.4 - 10.5 [facility] Comment on above: Result Comment: AUTO MATED DIFFERENTIAL Performed By: #### 2 98055 #### [facility],[address] [place] [address] 27999 RBC 4.94 x 10EE6/UL Normal 4.50 - 6.00 [facility] Comment on above: Performed By: #### 2 73073 #### [facility],[address] [place] [address] 00231 WBC 8.4 x 10EE3/UL Normal 4.5 - 10.8 [facility] Comment on above: Performed By: #### 2 86732 #### [facility],[address] [place] [address] CORONAVIRUS PCR - [facility] 08-08-2022 SARS-CoV-2 (COVID-19) RNA LAURA+probe Ql (Unsp spec) Negative Normal NORMAL: NEGATIVE [facility] Comment on above: Performed By: #### 2 42735 #### [facility],[address] [place], [place] [address] SEND TO IC? NO Normal [facility] Comment on above: Result Comment: RESU LTS FAXED TO INFECTION CONTROL. SARS-CoV-2 THIS TEST IS BEING USED UNDER THE FDA EUA PROCEDURE. THIS ASSAY HAS BEEN VALIDATED IN THE [facility] FOR USE WITH NASOPHARYNGEAL SPECIMENS IN [facility]. INTERPRETIVE DATA LABORATORY TEST RESULTS SHOULD ALWAYS [...] PUBLIC HEALTH AUTHORITIES. Performed By: #### 2 14462 #### [place] [address] KNEE 2 VIEWS RTon 08-08-2022 KNEE 2 VIEWS RT [place] [address] Patient: THANH COLEMAN Phone#: : 1935 Age: 86 Gender: M Pt. Type: ER Account: [id number] Location: [facility] Ordering: DR. MITRA WALLACE Exam Date: 08/08/2022/1:22 Family Phys: DR. BOO MARINA D.O. Charge Code: 946968 Physician: Geary Order #: [id number] Dose#: PROCEDURE: X-RAY KNEE RT 2 VIEWS [...] Rosas MD on 08/08/2022 at 7:06 Normal [facility] SEDRATEon 08-08-2022 SEDRATE 80 mm/hr High 0 - 20 [facility] Comment on above: Performed By: #### 2 79032 #### [facility],[address] [place] [address] 01054 Rissa 07-23-2022 [place] Telephone (TRACIE) THANH COLEMAN ([id number]) 1935 M Date Time Provider Department 07/23/22 [...] Attempted to notify Cell phone off. Celi Landers LPN 07/24/2022 4:08 PM Signed Attempted to reach pt, recording states 'the [employer] customer is not avail at this time, try again later.' Celi Landers LPN Allergies As of Date: 07/23/2022 Noted Allergy Reaction DUST 05/29/2017 14 - Other: See Comments GRASS POLLEN 05/29/2017 14 - Other: See Comments MOLD SPORES 05/29/2017 14 - Other: See Comments Date Reviewed: 07/08/2022 Reviewed by: Ekta Mandujano APRN.CNP - Fully Assessed Reason for Visit: Results [...] to affected area three times daily. - rthhyjmm-datufopsx-ifhv icidin (NEOMYCIN) 1.75 mg-10,000 unit-0.025mg/mL drop Apply 3 drops to each ear twice daily. - sosdguje-aevxqrzba-msyp ocortisone (CORTISPORIN) 3.5-10,000-1 mg/mL-unit/mL-% otic suspension Use [...] (FLONASE) 50 mcg/actuation nasal spray Use 1 Duncan in each nostril daily at bedtime. - [...] Asymptomatic LV dysfunction [I51.9] 08/10/2015 History of [place] (myocardial infarction) [I25.2] 08/10/2015 Stenosis of right [...] (HCC) [J4*10/ (more content not included)... Normal [facility] 25(OH)D3 SerPl-mCncon 2022 25-hydroxyvitamin D3 [Mass/Vol] 26.8 ng/mL Low 31.0-80.0 [facility] Comment on above: Order Comment: Speci men Type: BLOOD SPECIMENOrdering Facility: [facility] Address: [address] [place] [address] Result Comment: Clas sification of 25 OH Vitamin D status: Deficiency/Insufficiency: < or = 30 ng/ml. Sufficiency/Optimal Levels: 31-80 ng/mL Toxicity: > 100 ng/mL. Test performed by chemiluminescent immunoassay. Performed By: #### 1 989-3 ####[facility] LABCLIA [id number] [place] [address] [place] CBC W Auto Differential pane l (Bld)on 07-22-2022 Basophils (Bld) [#/Vol] 0.07 10*3/uL Normal <0.11 [facility] Comment on above: Order Comment: Speci men Type: BLOOD SPECIMENOrdering Facility: [facility] Address: [address] [place] [address] Performed By: #### 5 7021-8 ####[facility]CLIA [id number] [address] STATES OF [facility] Basophils/100 WBC (Bld) 0.9 % Normal [facility] Comment on above: Order Comment: Speci men Type: BLOOD SPECIMENOrdering Facility: [facility] Address: [address] [place] [address] Performed By: #### 5 7021-8 ####[facility]CLIA [id number] [place] [address] [place] Differential cell count method Nom (Bld) Auto Normal [facility] Comment on above: Order Comment: Speci men Type: BLOOD SPECIMENOrdering Facility: [facility] Address: [address] [place] [address] Performed By: #### 5 7021-8 ####[facility]CLIA [id number] [place] [address] [place] Eosinophils (Bld) [#/Vol] 0.27 10*3/uL Normal <0.46 [facility] Comment on above: Order Comment: Speci men Type: BLOOD SPECIMENOrdering Facility: [facility] Address: [address] [place] [address] Performed By: #### 5 7021-8 ####[facility]CLIA [id number] [address] [place] Eosinophils/100 WBC (Bld) 3.4 % Normal [facility] Comment on above: Order Comment: Speci men Type: BLOOD SPECIMENOrdering Facility: [facility] Address: [address] [place] [address] Performed By: #### 5 7021-8 ####[facility] LABCLIA [id number] [address] [place] Erythrocyte distribution width (RBC) [Ratio] 13.8 % Normal 11.5-15.0 [facility] Comment on above: Order Comment: Speci men Type: BLOOD SPECIMENOrdering Facility: [facility] Address: [address] [place], [place] [address] Performed By: #### 5 7021-8 ####[facility] LABIA [id number] [address] [place] Hematocrit (Bld) [Volume fraction] 47.8 % Normal 39.0-51.0 [facility] Comment on above: Order Comment: Speci men Type: BLOOD SPECIMENOrdering Facility: [facility] Address: [address] [place], [place] [address] Performed By: #### 5 7021-8 ####[facility] LABCLIA [id number] [place] [address] [place] Hemoglobin (Bld) [Mass/Vol] 15.3 g/dL Normal 13.0-17.0 [facility] Comment on above: Order Comment: Speci men Type: BLOOD SPECIMENOrdering Facility: [facility] Address: [address] Performed By: #### 5 7021-8 ####[facility] LABCLIA [id number] [place] [address] [place] Immature granulocytes (Bld) [#/Vol] 0.04 10*3/uL Normal <0.10 [facility] Comment on above: Order Comment: Speci men Type: BLOOD SPECIMENOrdering Facility: [facility] Address: [address] Performed By: #### 5 7021-8 ####[facility] LABCLIA [id number] [place] [address] [place] Immature granulocytes/100 WBC (Bld) 0.5 % Normal [facility] - [place] Comment on above: Order Comment: Speci men Type: BLOOD SPECIMENOrdering Facility: [facility] Address: [address] Performed By: #### 5 7021-8 ####[facility] LABCLIA [id number] [place] [address] [place] Lymphocytes (Bld) [#/Vol] 1.61 10*3/uL Normal 1.00-4.00 [facility] [place] Comment on above: Order Comment: Speci men Type: BLOOD SPECIMENOrdering Facility: [facility] Address: [address] Performed By: #### 5 7021-8 ####[facility] LABCLIA [id number] [place] [address] [place] Lymphocytes/100 WBC (Bld) 20.1 % Normal [facility] [place] Comment on above: Order Comment: Speci men Type: BLOOD SPECIMENOrdering Facility: [facility] Address: [address] Performed By: #### 5 7021-8 ####[facility] [id number] [place] [address] [place] MCH (RBC) [Entitic mass] 30.6 pg Normal 26.0-34.0 [facility] [place] Comment on above: Order Comment: Speci men Type: BLOOD SPECIMENOrdering Facility: [facility] Address: [address] [place] [address] Performed By: #### 5 7021-8 ####[facility] [id number] [address] STATES OF [facility] MCHC (RBC) [Mass/Vol] 32.0 g/dL Normal 30.5-36.0 [facility] [place] Comment on above: Order Comment: Speci men Type: BLOOD SPECIMENOrdering Facility: [facility] Address: [address] [place] [address] Performed By: #### 5 7021-8 ####[facility] [id number] [address] [place] OF [facility] MCV (RBC) [Entitic vol] 95.6 fL Normal 80.0-100.0 [facility] [place] Comment on above: Order Comment: Speci men Type: BLOOD SPECIMENOrdering Facility: [facility] Address: [address] [place] [address] Performed By: #### 5 7021-8 ####[facility] [id number] [address] [place] Monocytes (Bld) [#/Vol] 0.94 10*3/uL High <0.87 [facility] [place] Comment on above: Order Comment: Speci men Type: BLOOD SPECIMENOrdering Facility: [facility] Address: [address] [place] [address] Performed By: #### 5 7021-8 ####[facility] [id number] [address] Monocytes/100 WBC (Bld) 11.8 % Normal [facility] [place] Comment on above: Order Comment: Speci men Type: BLOOD SPECIMENOrdering Facility: [facility] Address: [address] Performed By: #### 5 7021-8 ####[facility] LABCLIA [id number] [place] [address] [place] Neutrophils (Bld) [#/Vol] 5.07 10*3/uL Normal 1.45-7.50 [facility] [place] Comment on above: Order Comment: Speci men Type: BLOOD SPECIMENOrdering Facility: [facility] Address: [address] [place], [place] [address] Performed By: #### 5 7021-8 ####[facility] LABCLIA [id number] [place] [address] [place] Neutrophils/100 WBC (Bld) 63.3 % Normal [facility] [place] Comment on above: Order Comment: Speci men Type: BLOOD SPECIMENOrdering Facility: [facility] Address: [address] [place], [place] [address] Performed By: #### 5 7021-8 ####[facility] LABCLIA [id number] [place] [address] [place] Nucleated RBC (Bld) [#/Vol] 10*3/uL Normal <0.01 [facility] [place] Comment on above: Order Comment: Speci men Type: BLOOD SPECIMENOrdering Facility: [facility] Address: [address] Performed By: #### 5 7021-8 ####[facility] LABCLIA [id number] [place] [address] [place] Nucleated RBC/100 WBC (Bld) [Ratio] 0.0 /100 WBC Normal [facility] [place] Comment on above: Order Comment: Speci men Type: BLOOD SPECIMENOrdering Facility: [facility] Address: [address] Performed By: #### 5 7021-8 ####[facility] LABCLIA [id number] [place] [address] [place] Platelet mean volume (Bld) [Entitic vol] 12.4 fL Normal 9.0-12.7 [facility] [place] Comment on above: Order Comment: Speci men Type: BLOOD SPECIMENOrdering Facility: [facility] Address: [address] [place] [address] Performed By: #### 5 7021-8 ####[facility] LABIA [id number] [place] [address] [place] Platelets (Bld) [#/Vol] 144 10*3/uL Low 150-400 [facility] [place] Comment on above: Order Comment: Speci men Type: BLOOD SPECIMENOrdering Facility: [facility] Address: [address] [place], [place] [address] Performed By: #### 5 7021-8 ####[facility] LABIA [id number] [place] [address] [place] RBC (Bld) [#/Vol] 5.00 10*6/uL Normal 4.20-6.00 [facility] Comment on above: Order Comment: Speci men Type: BLOOD SPECIMENOrdering Facility: [facility] Address: [address] [place] [phone] Performed By: #### 5 7021-8 ####[facility] LABIA [id number] [place] [address] [place] WBC (Bld) [#/Vol] 8.00 10*3/uL Normal 3.70-11.00 [facility] Comment on above: Order Comment: Speci men Type: BLOOD SPECIMENOrdering Facility: [facility] Address: [address] [place], [place] [address] Performed By: #### 5 7021-8 ####[facility] LABCLIA [id number] [place] [address] [place] Comprehensive metabolic 2000 panelon 07-22-2022 Albumin [Mass/Vol] 4.2 g/dL Normal 3.9-4.9 [facility] Comment on above: Order Comment: Speci men Type: BLOOD SPECIMENOrdering Facility: [facility] Address: [address] [place], [place] [address] Performed By: #### 2 4331-1, 87564-9 ####[facility] LABCLIA [id number] [place] [address] [place] ALP [Catalytic activity/Vol] 60 U/L Normal 38-113 [facility] [place] Comment on above: Order Comment: Speci men Type: BLOOD SPECIMENOrdering Facility: [facility] Address: [address] [place], [place] [address] Performed By: #### 2 4331-1, 67841-0 ####[facility] LABCLIA [id number] [address] [place] ALT [Catalytic activity/Vol] 13 U/L Normal 10-54 [facility] [place] Comment on above: Order Comment: Speci men Type: BLOOD SPECIMENOrdering Facility: [facility] Address: [address] [place], [place] [address] Performed By: #### 2 4331-1, 98043-0 ####[facility] LABCLIA [id number] [place] [address] [place] Anion gap [Moles/Vol] 12 mmol/L Normal 9-18 [facility] [place] Comment on above: Order Comment: Speci men Type: BLOOD SPECIMENOrdering Facility: [facility] Address: [address] [place], [place] [address] Performed By: #### 2 4331-1, 74169-6 ####[facility] LABCLIA [id number] [place] [address] [place] AST [Catalytic activity/Vol] 18 U/L Normal 14-40 [facility] [place] Comment on above: Order Comment: Speci men Type: BLOOD SPECIMENOrdering Facility: [facility] Address: [address] Performed By: #### 2 433-1, ####[facility] LABCLIA [id number] [place] [address] [place] Bilirubin [Mass/Vol] 0.6 mg/dL Normal 0.2-1.3 [facility] [place] Comment on above: Order Comment: Speci men Type: BLOOD SPECIMENOrdering Facility: [facility] Address: [address] Performed By: #### 2 4331-1, ####[facility] LABCLIA [id number] [place] [address] [place] Calcium [Mass/Vol] 9.8 mg/dL Normal 8.5-10.2 [facility] Comment on above: Order Comment: Speci men Type: BLOOD SPECIMENOrdering Facility: [facility] Address: [address] Performed By: #### 2 4331-1, ####[facility] LABCLIA [id number] [place] [address] [place] Chloride [Moles/Vol] 103 mmol/L Normal 97-105 [facility] [place] Comment on above: Order Comment: Speci men Type: BLOOD SPECIMENOrdering Facility: [facility] Address: [address] Performed By: #### 2 4331-1, ####[facility] LABCLIA [id number] [place] [address] [place] CO2 [Moles/Vol] 27 mmol/L Normal 22-30 [facility] [place] Comment on above: Order Comment: Speci men Type: BLOOD SPECIMENOrdering Facility: [facility] Address: [address] [place] [address] Performed By: #### 2 4331-1, 47979-8 ####[facility] [id number] [place] [address] [place] Creatinine [Mass/Vol] 1.59 mg/dL High 0.73-1.22 [facility] [place] Comment on above: Order Comment: Fariba vivar Type: BLOOD SPECIMENOrdering Facility: [facility] Address: [address] [place] [address] Performed By: #### 2 4331-1, 12637-0 ####[facility] [id number] [place] [address] [place] ESTIMATED GLOMERULAR FILTRATION RATE 42 mL/min/1.73m??? Low >=60 [facility] [place] Comment on above: Order Comment: Fariba vivar Type: BLOOD SPECIMENOrdering Facility: [facility] Address: [address] [place] [address] Result Comment: Rosalba mated Glomerular Filtration Rate [...] actual GFR. Performed By: #### 2 4331-1, 53487-4 ####[facility] [id number] [place] [address] [place] Glucose [Mass/Vol] 81 mg/dL Normal 74-99 [facility] Comment on above: Order Comment: Fariba vivar Type: BLOOD SPECIMENOrdering Facility: [facility] Address: [address] [place] [address] Result Comment: The [place] Diabetes Association (ADA) provides guidance for cutoff [...] Standards of Medical Care in Diabetes 2016, [place] Diabetes Association. Diabetes Care. 2016.39(Suppl 1). Performed By: #### 2 433-, ####[facility] LABCLIA [id number] [place] [address] [place] Potassium [Moles/Vol] 4.7 mmol/L Normal 3.7-5.1 [facility] [place] Comment on above: Order Comment: Speci men Type: BLOOD SPECIMENOrdering Facility: [facility] Address: [address] [place] [address] Performed By: #### 2 43304-21, ####[facility] LABIA [id number] [place] [address] [place] Protein [Mass/Vol] 7.5 g/dL Normal 6.3-8.0 [facility] Comment on above: Order Comment: Speci men Type: BLOOD SPECIMENOrdering Facility: [facility] Address: [address] [place] [address] Performed By: #### 2 43304-21, ####[facility] LABCLIA [id number] [place] [address] [place] Sodium [Moles/Vol] 142 mmol/L Normal 136-144 [facility] Comment on above: Order Comment: Speci men Type: BLOOD SPECIMENOrdering Facility: [facility] Address: [address] [place] [address] Performed By: #### 2 43304-21, ####[facility] LABCLIA [id number] [address] [place] Urea nitrogen [Mass/Vol] 29 mg/dL High 9-24 [facility] [place] Comment on above: Order Comment: Fariba vivar Type: BLOOD SPECIMENOrdering Facility: [facility] Address: [address] [place] [address] Performed By: #### 2 4331-1, 74197-2 ####[facility] LABCLIA [id number] [place] [address] [place] HbA1c (Bld)on 07-22-2022 Average glucose Estimated from glycated hemoglobin (Bld) [Mass/Vol] 111 mg/dL Normal [facility] [place] Comment on above: Order Comment: Fariba vivar Type: BLOOD SPECIMENOrdering Facility: [facility] Address: [address] [place] [address] Result Comment: eAG: (Estimated average glucose) is a calculated value from HgbA1c and is medical detail representative of the average blood glucose level in the last 2-3 month period. Performed By: #### 5 5454-3 ####[facility] LABCLIA [id number] [address] [place] HbA1c (Bld) [Mass fraction] 5.5 % Normal 4.3-5.6 [facility] [place] Comment on above: Order Comment: Fariba vivar Type: BLOOD SPECIMENOrdering Facility: [facility] Address: [address] [place] [address] Result Comment: Amer ican Diabetes Association guidelines indicate that patients with HgbA1c in the range 5.7-6.4% are at increased risk for development of diabetes, and intervention by lifestyle modification may be beneficial. HgbA1c greater or equal to 6.5% is considered diagnostic of diabetes. Performed By: #### 5 5454-3 ####[facility] LABCLIA [id number] [place] [address] [place] Lipid 1996 panelon 3 Cholesterol [Mass/Vol] 117 mg/dL Normal <200 [facility] [place] Comment on above: Order Comment: Fariba vivar Type: BLOOD SPECIMENOrdering Facility: [facility] Address: [address] Result Comment: <200 mg/dL, Desirable 200-239 mg/dL, Borderline high >239 mg/dL, High Performed By: #### 2 4331-1, 28463-5 ####[facility] LABCLIA [id number] [address] OF [facility] Cholesterol in HDL [Mass/Vol] 39 mg/dL Low >39 [facility] [place] Comment on above: Order Comment: Speci men Type: BLOOD SPECIMENOrdering Facility: [facility] Address: [address] [place] [address] Result Comment: 40-5 9 mg/dL, Acceptable >59 mg/dL, High: Negative risk factor for coronary heart disease <40 mg/dL, Low: Positive risk factor for coronary heart disease Performed By: #### 2 4331-1, ####[facility] LABCLIA [id number] [address] [place] Cholesterol in LDL [Mass/Vol] 50 mg/dL Normal <100 [facility] [place] Comment on above: Order Comment: Namitai men Type: BLOOD SPECIMENOrdering Facility: [facility] Address: [address] [place] [address] Result Comment: <100 mg/dL, Optimal 100-129 mg/dL, Near optimal/above optimal 130-159 mg/dL, Borderline high 160-189 mg/dL, High >189 mg/dL, Very high Secondary prevention optimal LDL Cholesterol levels are recommended to be < 70 mg/dL Performed By: #### 2 4331-1, 31463-2 ####[facility] LABCLIA [id number] [address] [place] Cholesterol in LDL/Cholesterol in HDL [Mass ratio] 1.28 {ratio} Normal <2.54 [facility] [place] Comment on above: Order Comment: Speci men Type: BLOOD SPECIMENOrdering Facility: [facility] Address: [address] [place], [place] [address] Result Comment: Refe rence: 1. National Cholesterol Education Program ATP III Guideline At-A-Glance Quick Desk Reference: National Heart, Lung, and Blood [place]. National Institutes of Health. 2001: NIH Publication No. 01-3305. 2. An International Atherosclerosis Society position paper: global recommendations for the management of dyslipidemia: executive summary, Atherosclerosis. 2014: 232(2):410-413. Performed By: #### 2 4331-1, 39260-7 ####[facility] LABCLIA [id number] [place] [address] [place] Cholesterol in VLDL [Mass/Vol] 28 mg/dL Normal <30 [facility] [place] Comment on above: Order Comment: Namitai men Type: BLOOD SPECIMENOrdering Facility: [facility] Address: [address] [place] [address] Performed By: #### 2 4331-, 17385-6 ####[facility] LABCLIA [id number] [address] [place] Cholesterol non HDL [Mass/Vol] 78 mg/dL Normal <130 [facility] [place] Comment on above: Order Comment: Fariba vivar Type: BLOOD SPECIMENOrdering Facility: [facility] Address: [address] [place] [address] Result Comment: <130 mg/dL, Optimal 130-159 mg/dL, Near optimal/above optimal 160-189 mg/dL, Borderline high 190-219 mg/dL, High >219 mg/dL, Very high Secondary prevention optimal non HDL Cholesterol levels are recommended to be <100 mg/dL Performed By: #### 2 4331-1, 97352-4 ####[facility] LABCLIA [id number] [place] [address] [place] Cholesterol.total/C holesterol in HDL [Mass ratio] 3.00 {ratio} Normal <5.10 [facility] [place] Comment on above: Order Comment: Namitai men Type: BLOOD SPECIMENOrdering Facility: [facility] Address: [address] [place] [address] Performed By: #### 2 4331-1, 27338-1 ####[facility] LABCLIA [id number] [place] [address] [place] FASTING TIME 12 hrs Normal [facility] [place] Comment on above: Order Comment: Speci men Type: BLOOD SPECIMENOrdering Facility: [facility] Address: [address] [place] [address] Performed By: #### 2 4331-1, 32374-0 ####[facility] LABCLIA [id number] [place] [address] [place] Triglyceride [Mass/Vol] 139 mg/dL Normal <150 [facility] [place] Comment on above: Order Comment: Speci men Type: BLOOD SPECIMENOrdering Facility: [facility] Address: [address] [place] [address] Result Comment: <150 mg/dL, Normal 150-199 mg/dL, Borderline high 200-499 mg/dL, High >499 mg/dL, Very high Performed By: #### 2 4331-1, 54942-3 ####[facility] LABIA [id number] [place] [address] [place] PSA/PROSTSPECAG SCRNon 07-22 Prostate specific Ag [Mass/Vol] 1.03 ng/mL Normal <2.60 [facility] [place] Comment on above: Order Comment: Speci men Type: BLOOD SPECIMENOrdering Facility: [facility] Address: [address] [place] [address] Result Comment: Tota l PSA test methodology used is the Electrochemiluminescence Immunoassay by [employer]. Total PSA values by differing methodologies cannot be interchanged. Performed By: #### P SAS1 ####[facility] LABCLIA [id number] [place] [address] [place] CNCOon 07-17-2022 CNCO Letter Text Normal [facility] CNOVon 07-08-2022 CNOV Office Visit (FAMPWS ) THANH COLEMAN ([id number]) 1935 M Date Time Provider Department 07/08/22 1:20 PM EKTA MANDUJANO During your visit today, we recorded the following information about you: Pulse Respiration Blood pressure Weight 80/minute 14/minute 120/68 94.2 kg Ekta Mandujano, [employer] 07/08/2022 2:58 PM Signed Chief Complaint Patient [...] clean apartment once per week. Uses pre-packaged [facility] for medicaiton management. No recent falls. [...] Afib -- Well controlled, on eliquis routinely. 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 Past medical history, appointments, medications, allergies reviewed. 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/2020 CKD (chronic kidney disease) stage 3, GFR 30-59 ml/min ([facility]) 12/2015 COPD (chronic obstructive pulmonary disease) ([facility]) Essential hypertension 06/19/2016 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 08/10/2015 H/O abdominal aortic aneurysm repair 08/10/2015 H/O right heart catheterization High blood pressure History of heart attack History of [place] (myocardial infarction) 08/10/2015 Hyperlipidemia, unspecified 12/23/2019 Hypertensive chronic kidney disease with stage 1 through stage 4 chronic kidney disease, or unspecified chronic kidney disease 12/23/2019 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 ([facility]) 07/02/2021 Hypertriglyceridemia Low HDL (under 40) Neuropathy Palpitations 12/23/2019 Permanent atrial fibrillation ([facility]) 08/10/2015 Presence of cardiac pacemaker 08/10/2015 Presence of drug coated stent in left circumflex coronary artery 08/10/2015 Sick sinus syndrome (HCC) 08/10/2015 Stage 3b chronic kidney disease ([facility]) 12/21/2015 TB (pulmonary tuberculosis) Thrombocytopenia ([facility]) Previous Surgical History PAST SURGICAL HISTORY Procedure Laterality Date ABD AORTIC ANEURYSM REPAIR CORONARY STENT EA VESSEL 3-2009 x 2, drug eluting ILIAC PRINTED CIRCUIT LAYOUT TAPER W/WO STENT PACEMAKER DUAL CHAMBER TIER 0 [...] Apply 1 (more content not included)... Normal [facility] 07-03-2022 [facility] THANH COLEMAN ([id number]) 1935 M Date Time Provider Department 07/03/22 BOO MARINA [facility] During your visit today, we recorded the following information about you: Vivienne Villarreal RN 07/03/2022 2:44 PM Signed Jocelyn with [facility] calls to let provider know that on [...] to affected area three times daily. - fplqccys-eukcrjiak-dnep icidin (NEOMYCIN) 1.75 mg-10,000 unit-0.025mg/mL drop Apply 3 drops to each ear twice daily. - fxwkqoxq-qhhkursvz-khrx ocortisone (CORTISPORIN) 3.5-10,000-1 mg/mL-unit/mL-% otic suspension Use [...] (FLONASE) 50 mcg/actuation nasal spray Use 1 Duncan in each nostril daily at bedtime. - [...] Asymptomatic LV dysfunction [I51.9] 08/10/2015 History of [place] (myocardial infarction) [I25.2] 08/10/2015 Stenosis of right [...] disease ( (more content not included)... Normal [facility] .Auto Diffon 04-23-2022 Basophil, Absolute 0.1 10 3/mcL Normal 0.0-0.3 [facility] ([place]) Comment on above: Performed By: #### P RO #### [address] [address] Basophils/100 WBC (Bld) 0.7 % Normal 0.0-2.5 [facility] ([place]) Comment on above: Performed By: #### P RO #### [address] [address] Eosinophil, Absolute 0.3 10 3/mcL Normal 0.0-0.7 [facility] ([place]) Comment on above: Performed By: #### P RO #### [address] [address] Eosinophils/100 WBC (Bld) 3.7 % Normal 0.0-6.0 [facility] ([place]) Comment on above: Performed By: #### P RO #### [address] [address] Lymphocyte, Absolute 1.5 10 3/mcL Normal 0.9-4.3 [facility] ([place]) Comment on above: Performed By: #### P RO #### [address] [address] Lymphocytes/100 WBC (Bld) 19.7 % Low 20.0-40.0 [facility] ([place]) Comment on above: Performed By: #### P RO #### [address] [address] Monocyte, Absolute 0.7 10 3/mcL Normal 0.1-1.4 [facility] ([place]) Comment on above: Performed By: #### P RO #### [address] [address] Monocytes/100 WBC (Bld) 9.8 % Normal 2.0-13.0 [facility] ([place]) Comment on above: Performed By: #### P RO #### [address] [address] Neutrophils/100 WBC (Bld) 66.1 % Normal 50.0-75.0 [facility] [place] ([place] Comment on above: Performed By: #### P RO #### [address] [address] .GFRon 04-23-2022 GFR 50 ml/min/1.73sqm Normal [facility] [place] ([place] Comment on above: Result Comment: GFR Population [...] Performed By: #### B MP, GFR #### [address] [address] GFR Non- 41 ml/min/1.73sqm Normal [facility] [place] Comment on above: Result Comment: GFR Population [...] Performed By: #### B MP, GFR #### [address] [address] .NEUABSon 04-23-2022 Neutrophil, Absolute 5.0 10 3/mcL Normal 2.3-8.1 [facility] [place] ([place] Comment on above: Performed By: #### P RO #### [address] [address] ABO/Rh (Gel)on 04-23-2022 ABO/Rh Interp Positive Invalid Interpretation Code [facility] [place] ([place] Comment on above: Performed By: #### B MP, GFR #### [address] [address] ABS (Gel)on 04-23-2022 ABSC Interp (Gel) Negative Normal [facility] [place] ([place] Comment on above: Performed By: #### B MP, GFR #### [address] [address] BMPon 04-23-2022 BUN/Creatinine Ratio 21.2 ratio Normal 10.0-22.0 [facility] [place] ([place] Comment on above: Performed By: #### B MP, GFR #### [address] [address] Calcium [Mass/Vol] 9.8 mg/dL Normal 8.7-10.4 [facility] [place] ([place] Comment on above: Performed By: #### B MP, GFR #### [address] [address] Chloride [Moles/Vol] 111 mmol/L High 98-110 [facility] [place] ([place] Comment on above: Performed By: #### B MP, GFR #### [address] [address] CO2 [Moles/Vol] 28 mmol/L Normal 22-32 [facility] [place] ([place] Comment on above: Performed By: #### B MP, GFR #### [address] [address] Creatinine [Mass/Vol] 1.60 mg/dL High 0.60-1.40 [facility] [place] ([place] Comment on above: Performed By: #### B MP, GFR #### [address] [address] Electrolyte Balance 6.0 mEq/L Normal 4.0-15.0 [facility] ([place] Comment on above: Performed By: #### B MP, GFR #### [address] [address] Glucose [Mass/Vol] 97 mg/dL Normal 82-115 [facility] [place] ([place] Comment on above: Performed By: #### B MP, GFR #### [place] [id number] Potassium [Moles/Vol] 4.4 mmol/L Normal 3.5-5.0 [facility] [place] ([place] Comment on above: Performed By: #### B MP, GFR #### [address] [address] Sodium [Moles/Vol] 145 mmol/L Normal 136-145 [facility] [place] ([place] Comment on above: Performed By: #### B MP, GFR #### [address] [address] Urea nitrogen [Mass/Vol] 34.0 mg/dL High 8.0-22.0 [facility] [place] ([place] Comment on above: Performed By: #### B MP, GFR #### [address] [address] CBCon 04-23-2022 Erythrocyte distribution width (RBC) [Ratio] 14.5 % Normal 11.5-15.5 [facility] [place] ([place] Comment on above: Performed By: #### P RO #### [address] [address] Hematocrit (Bld) [Volume fraction] 50.5 % Normal 40.0-52.0 [facility] [place] ([place] Comment on above: Performed By: #### P RO #### [place] [address] Hgb 16.7 G/dL Normal 13.0-17.5 [facility] [place] ([place] Comment on above: Performed By: #### P RO #### [place] [address] MCH (RBC) [Entitic mass] 30.7 pg Normal 27.0-33.0 [facility] [place] Comment on above: Performed By: #### P RO #### [place] [address] MCHC 33.2 G/dL Normal 32.0-36.0 [facility] [place] Comment on above: Performed By: #### P RO #### [place] [address] MCV (RBC) [Entitic vol] 92.4 fL Normal 81.0-100.0 [facility] [place] ([place] Comment on above: Performed By: #### P RO #### [place] [address] Platelet 116 10 3/mcL Low 150-450 [facility] [place] Comment on above: Performed By: #### P RO #### [place] [address] Platelet mean volume (Bld) [Entitic vol] 9.8 fL Normal 6.4-10.5 [facility] [place] Comment [place] above: Performed By: #### P RO #### [place] [address] RBC 5.46 10 6/mcL Normal 4.50-6.00 [facility] [place] ([place] Comment on above: Performed By: #### P RO #### [place] [id number] WBC 7.5 10 3/mcL Normal 4.5-10.8 [facility] [place] ([place] Comment [place] above: Performed By: #### P RO #### [place] [address] LABORATORYOrdered By: Kateryna Khan on 04-23-2022 INR Coag (PPP) [Relative time] 1.1 {INR} Invalid Interpretation Code Auto Coag SS PT Coag (PPP) [Time] 12.9 s Invalid Interpretation Code 9.0 - 14.9 seconds AH Auto Coag SS LABORATORYOrdered By: Khanh Mascorro on 04-23-2022 ABO and Rh group Nom (Bld) Blood group A Rh(D) positive Invalid Interpretation Code BB Auto SS Blood group antibody screen Ql NEG (04/23/22 9:24 AM) Invalid Interpretation Code BB Auto SS LABORATORYOrdered By: [employer] on 04-23-2022 Basophils (Bld) [#/Vol] 0.1 103/mcL Invalid Interpretation Code 0.0 - 0.3 10^3/mcL Workflow SS Basophils/100 WBC (Bld) 0.7 % Invalid Interpretation Code 0.0 - 2.5 % Workflow SS Calcium [Mass/Vol] 9.8 mg/dL Invalid [...] mg/dL ADM SS Hematocrit (Bld) [Volume fraction] 50.5 [...] 145 mEq/L ADM SS Urea nitrogen [Mass/Vol] 34.0 mg/dL Invalid Interpretation Code 8.0 - 22.0 mg/dL ADM SS Urea nitrogen/Creatinine [Mass ratio] 21.2 ratio Invalid Interpretation Code 10.0 - 22.0 ratio AH ADM SS WBC (Bld) [#/Vol] 7.5 103/mcL Invalid Interpretation Code 4.5 - 10.8 10^3/mcL AH Workflow SS PROon 04-23-2022 INR Coag (PPP) [Relative time] 1.1 {INR} Normal [facility] [place] ([place] Comment on above: Result Comment: The [employer] (CHEST, 1992, 102:312S-25S) recommended therapeutic range for oral anticoagulant therapy is: LOW RISK: Prophylaxis of venous thrombosis INR: 2.0-3.0 Treatment of pulmonary embolism 2.0-3.0 Prevention of systemic embolism 2.0-3.0 HIGH RISK: Mechanical prosthetic valves 2.5-3.5 Performed By: #### P RO #### [address] [address] PT Coag (PPP) [Time] 12.9 s Normal 9.0-14.9 [facility] [place] ([place] Comment on above: Result Comment: Effe ctive 11/03/07, Protime results may be affected by some antibiotics (i.e. Ciprofloxacin, Azithromycin, Bactrim) which may potentiate the action of oral anticoagulants, with further increases in Protime/INR. Performed By: #### P RO #### [address] [address] [facility] CO[facility] ([id number]) 1935 M Date Time Provider Department 04/12/22 [...] swab must be used, eSwab is preferred ([place] No. [id number]). This test was developed and its performance characteristics determined by the [facility]'s [facility] [place] ([facility]). It has not been cleared or approved by the FDA. [facility] is regulated under CLIA as qualified to [...] to affected area three times daily. - myxvpubc-ncrnhsyxp-wwtl icidin (NEOMYCIN) 1.75 mg-10,000 unit-0.025mg/mL drop Apply 3 drops to each ear twice daily. - kjnqyvfh-saritraoe-tvzx ocortisone (CORTISPORIN) 3.5-10,000-1 mg/mL-unit/mL-% otic suspension Use [...] (FLONASE) 50 mcg/actuation nasal spray Use 1 Duncan in each nostril daily at bedtime. 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 Normal [facility] CNPNon 04-11-2022 CNPN Telephone (OPHTBE) THANH COLEMAN ([id number]) 1935 M Date Time Provider Department 04/11/22 [...] swab must be used, eSwab is preferred ([place] No. [id number]). Pt doing well Covered with oral Doxycycline, [...] to affected area three times daily. - efzqviwz-nfsbsgymy-wily icidin (NEOMYCIN) 1.75 mg-10,000 unit-0.025mg/mL drop Apply 3 drops to each ear twice daily. - ibpzzhwr-pyeqwhdse-zgej ocortisone (CORTISPORIN) 3.5-10,000-1 mg/mL-unit/mL-% otic suspension Use [...] (FLONASE) 50 mcg/actuation nasal spray Use 1 Duncan in each nostril daily at bedtime. - [...] Asymptomatic LV dysfunction [I51.9] 08/10/2015 History of [place] (myocardial infarction) [I25.2] 08/10/2015 Stenosis of right [...] (chronic obstructive (more content not included)... Normal [facility] Bacteria Wnd Culton 04-10-20 Bacteria identified Cx Nom (Wound) [...] , Intermediate >4 , Resistant >8 Abnormal [facility] Comment on above: Performed By: #### 6 [id number] ####[facility] LABCLIA [id number] [address] OF [facility] CNOVon 04-08-2022 CNOV Office Visit (FAMPWS ) VIRGINIATHANH E ([id number]) 1935 M Date Time Provider Department 04/08/22 3:00 PM ZORAIDA HODGE During your visit today, we recorded the following information about you: Pulse Respiration Blood pressure Weight 72/minute 16/minute 110/70 96.8 kg Zoraida Hodge APRN.[employer]TA[employer] WAREHOUSE ASSOCIATE 04/10/2022 4:48 PM Signed Chief Complaint Patient presents with: F/U 3 Month HPI Thanh Nakia Coleman is a 86 [...] hyperlipidemia At risk for stroke Atrial flutter ([facility]) 03/03/2020 CAD (coronary artery disease) pacemaker, hyperlipidemia, hyperlipidemia Chronic combined systolic and diastolic congestive heart failure (HCC) 09/26/2020 CKD (chronic kidney disease) stage 3, GFR 30-59 ml/min ([facility]) 12/2015 COPD (chronic obstructive pulmonary disease) ([facility]) Essential hypertension 06/19/2016 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 08/10/2015 H/O abdominal aortic aneurysm repair 08/10/2015 H/O right heart catheterization High blood pressure History of heart attack History of [place] (myocardial infarction) 08/10/2015 Hyperlipidemia, unspecified 12/23/2019 Hypertensive chronic kidney disease with stage 1 through stage 4 chronic kidney disease, or unspecified chronic kidney disease 12/23/2019 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 ([facility]) 07/02/2021 Hypertriglyceridemia Low HDL (under 40) Neuropathy Palpitations 12/23/2019 Permanent atrial fibrillation ([facility]) 08/10/2015 Presence of cardiac pacemaker 08/10/2015 Presence of drug coated stent in left circumflex coronary artery 08/10/2015 Sick sinus syndrome ([facility]) 08/10/2015 Stage 3b chronic kidney disease ([facility]) 12/21/2015 TB (pulmonary tuberculosis) Thrombocytopenia (HCC) Previous Surgical History PAST SURGICAL HISTORY Procedure Laterality Date ABD AORTIC ANEURYSM REPAIR CORONARY STENT EA VESSEL 3-2008 x 2, drug eluting ILIAC PRINTED CIRCUIT LAYOUT TAPER W/WO STENT PACEMAKER DUAL CHAMBER TIER 0 [...] Apply to affected area three times daily. dtswhzpb-apxmbfdqe-priu icidin (NEOMYCIN) 1.75 mg-10,000 unit-0.025mg/mL drop Apply 3 drops to each ear twice daily. ipectuxb-kicxdvcih-aezb ocortisone (CORTISPORIN) 3.5-10,000-1 mg/mL-unit/mL-% otic suspension Use [...] 2 Puffs (more content not included)... [facility] THANH COLEMAN ([id number]) 1935 M Date Time Provider Department 03/13/22 BOO MARINA During your visit today, we recorded the following information about you: Ellen Taylor RN 03/13/2022 8:42 AM Signed Jocelyn from [facility] calls and states that she had faxed over a plan of care that she needs provider to sign and fax back. Jocelyn states to make sure to fax all 3 pages back. CELESTINE Nguyen RN 03/18/2022 10:13 AM Signed Jocelyn with [facility] calls to check on status of request. Jocelyn giving a second fax number to fax POC to if first one doesn't go through. Fax number is [phone]. CELESTINE Kaur LPN 03/18/2022 3:06 PM Signed [...] to affected area three times daily. - mwbbhbja-tcrvybgco-yqjx icidin (NEOMYCIN) 1.75 mg-10,000 unit-0.025mg/mL drop Apply 3 drops to each ear twice daily. - fquaktcp-vffqikzia-kcqf ocortisone (CORTISPORIN) 3.5-10,000-1 mg/mL-unit/mL-% otic suspension Use [...] (FLONASE) 50 mcg/actuation nasal spray Use 1 Duncan in each nostril daily at bedtime. - [...] Asymptomatic LV dysfunction [I51.9] 08/10/2015 History of [place] (myocardial infarction) [I25.2] 08/10/2015 Stenosis of right [...] [I10] 07/29/2016 (more content not included)... Normal [facility] EMERGENCY REPORTon 2 EMERGENCY REPORT [facility] EMERGENCY ROOM REPORT NAME ACCOUNT SEX AGE ADMIT DISCHARGE PT MED. RECORD# NUMBER DATE DATE TYPE THANH COLEMAN [id number] M 86 02/26/22 02/26/22 3 [id number] ROOM: ER DATE OF : 1935 DICTATING [...] Cass Wharton MD 02/26/22 16:14 JOB #: [id number] Transcribed By: israel 02/26/22 19:06 Electronically signed by: Cass Wharton M.D. 03/03/22 19:05 Page 1 of 1 THANH COLEMAN Emergency Room Report Normal [facility] EMERGENCY REPORT [facility] EMERGENCY ROOM REPORT NAME ACCOUNT SEX AGE ADMIT DISCHARGE PT MED. RECORD# NUMBER DATE DATE TYPE THANH COLEMAN [id number] M 86 02/26/22 02/26/22 3 [id number] ROOM: ER DATE OF : 1935 DICTATING PHYSICIAN: Cass Wharton CHIEF COMPLAINT: Postoperative bleeding. 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 This afternoon it started bleeding and he could not get it stopped so he came to the Emergency Department. He indicates he is on Eliquis as well as Coumadin and did not stop the medication for the surgery. He is due to follow up with Plastic Surgery at the [facility] tomorrow for revision of the surgery. He [...] of 2 THANH COLEMAN Emergency Room Report [place] : 1935 and they include: 1. He is to keep the Gelfoam on until seen tomorrow. 2. If any further bleeding hold direct pressure for at least 15 minutes. 3. Follow up with his plastic surgeon tomorrow as scheduled. Dictated By: Cass Wharton MD 02/26/22 16:08 JOB #: [id number] Transcribed By: israel 02/26/22 18:10 Electronically signed by: Cass Wharton M.D. 03/03/22 19:04 Page 2 of 2 THANH COLEMAN Emergency Room Report Normal [facility] 03-01-2022 MADYN Telephone (OPHTLN) VIRGINIAYNESTHANH E ([id number]) 1935 M Date Time Provider Department 03/01/22 JACKY SANCHEZ During your visit today, we recorded the following information about you: Jacky Sanchez APRN.[facility] 03/05/2022 1:56 PM Addendum Returning patient's phone call regarding eye patch. Discussed with and patient that it's ok the patch came off. He needs to start using the ointment four times a day. Offered to be seen today, patient declined. Offered to video, patient declined. They will send us a photo of the eye to Nupur's email ([email or web address]) Patient states he is doing well, no [...] 24 hours or soonest available appointment. Thanh Coelman consented to this telephone encounter. The following [...] to affected area three times daily. - ugpiuugb-kofnyyqnq-ruxn icidin (NEOMYCIN) 1.75 mg-10,000 unit-0.025mg/mL drop Apply 3 drops to each ear twice daily. - zwhsnmnn-abbatidmg-qqxm ocortisone (CORTISPORIN) 3.5-10,000-1 mg/mL-unit/mL-% otic suspension Use [...] (FLONASE) 50 mcg/actuation nasal spray Use 1 Duncan in each nostril daily at bedtime. 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 Normal [facility] CNPNon 02-28-2022 CNPN Telephone (OPHTMN) THANH COLEMAN ([id number]) 1935 M Date Time Provider Department 02/28/22 AKILAH ESPINOSA During your visit today, we recorded the [...] Assessed Reason for Visit: Post Op Call [[id number]] Prescriptions as of 02/28/2022 - erythromycin (ROMYCIN) [...] to affected area three times daily. - hivohuwj-zopugywtp-yolm icidin (NEOMYCIN) 1.75 mg-10,000 unit-0.025mg/mL drop Apply 3 drops to each ear twice daily. - rexhzamb-uutlefges-wbqa ocortisone (CORTISPORIN) 3.5-10,000-1 mg/mL-unit/mL-% otic suspension Use [...] (FLONASE) 50 mcg/actuation nasal spray Use 1 Duncan in each nostril daily at bedtime. - [...] Asymptomatic LV dysfunction [I51.9] 08/10/2015 History of [place] (myocardial infarction) [I25.2] 08/10/2015 Stenosis of right [...] 3 chronic kidney disease (HCC) [N18.30] 10/08/2017 03/ (more content not included)... [facility] VIRGIINATHANH Yee ([id number]) 1935 M Date Time Provider Department 02/28/22 ANA MARIA JOLLYJamie During your visit today, we recorded the [...] Assessed Reason for Visit: Post Op Call [[id number]] Prescriptions as of 02/28/2022 - erythromycin (ROMYCIN) [...] to affected area three times daily. - ajirqglc-jrwteirnv-uckg icidin (NEOMYCIN) 1.75 mg-10,000 unit-0.025mg/mL drop Apply 3 drops to each ear twice daily. - plggrfem-bljgccpdi-zsrc ocortisone (CORTISPORIN) 3.5-10,000-1 mg/mL-unit/mL-% otic suspension Use [...] (FLONASE) 50 mcg/actuation nasal spray Use 1 Duncan in each nostril daily at bedtime. - [...] Asymptomatic LV dysfunction [I51.9] 08/10/2015 History of [place] (myocardial infarction) [I25.2] 08/10/2015 Stenosis of right [...] [Z9*07/29/2016 06/22/2020 (more content not included)... Normal [facility] CNPN Telephone (OPHTMN) THANH COLEMAN ([id number]) 1935 M Date Time Provider Department 02/28/22 CAMRYN DAVILA During your visit today, we recorded the following information about you: Nupur [facility] 02/28/2022 4:17 PM Signed They'd like to have his post op at the [address] location on Fri instead of at the [place] Location on Friday. The [address] schedule is locked. They were looking at coming in anytime after 3:00 for his follow up. Okay to add? Nupur [facility] 03/01/2022 8:36 AM Signed Camryn Davila MD You; Jacky Sanchez APRN.[employer]TAIL WAREHOUSE ASSOCIATE; Job Morrison PA-C; Pamela Dave MD; Akilah Espinosa PA-C; Ana Cespedes; Luke Nuñez 15 hours ago (4:34 PM) Ok sure ok to add 4:15pm Sammy Ayala Nupur [facility] 03/01/2022 8:36 AM Signed Attempted to call the patient back but the mailbox was full and not accepting messages. Nupurher [facility] 03/01/2022 1:30 PM Signed His is calling today stating that his bandage came off in bed last night. She tried to put it back on and use the tape, but it's not really staying. What should she do? 's cell: [phone] Nupur [facility] 03/01/2022 1:56 PM Signed Jacky Sanchez APRN.RETAIL WAREHOUSE ASSOCIATE You; Camryn Davila MD; Job Morrison PA-C; [...] MD You; Job Morrison PA-C; Jacky Sanchez APRN.RETAIL WAREHOUSE ASSOCIATE; Pamela Dave MD; Akilah Espinosa PA-C 14 minutes ago (1:40 PM) Have him come to [place] to see me today Or I think [...] to affected area three times daily. - nebryszy-rctgvmrbh-fdem icidin (NEOMYCIN) 1.75 mg-10,000 unit-0.025mg/mL drop Apply 3 drops to each ear twice daily. - vswjtpjx-nwlccskpu-actv ocortisone (CORTISPORIN) 3.5-10,000-1 mg/mL-unit/mL-% otic suspension Use [...] (FLONASE) 50 mcg/actuation nasal spray Use 1 Duncan in each nostril daily at bedtime. - [...] Asymptomatic LV dysfunction [I51.9] 08/10/2015 History of [place] (myocardial infarction) [I25.2] 08/10/2015 Stenosis of right (more content not included)... Normal [facility] ANES POSTPROC EVALon 022 ANES POSTPROC EVAL HNO ID: [id number] Author: Juan Carlos Huffman MD Service: Anesthesiology Author Type: Physician Type: Anesthesia Postprocedure Evaluation Filed: 02/27/2022 1:31 PM Note Text: POST ANESTHESIA EVALUATION NOTE : 1935 Procedure Summary Date: 02/27/22 Room / Location: AV OR / AV OR Anesthesia Start: 1021 Anesthesia Stop: 1134 Procedures: EXCISION/REPAIR EYELID W/ADJACENT TISSUE TRANSFER /UP [...] February 27, 2022 TIME: 1:31 PM CSN: [id number] [facility] ANES PRE-OPon 02-27-2022 ANES PRE-OP HNO ID: [id number] Author: Juan Carlos Huffman MD Service: Anesthesiology [...] CM OR LESS (Left: Face) Location: AV OR01 / AV OR Surgeons: Camryn Davila MD [...] kidney disease (HCC) NEURO-PSYCH (+) History of [place] (myocardial infarction) PULMONARY (+) Chronic obstructive pulmonary [...] and consent discussed: yes. Patient / Responsible Libertarian agrees to proceed: yes Patient / Surrogate agrees to blood products: blood products not planned Significant changes in the patient condition since the History and Physical, not otherwise documented in primary service progress note: no. Potential Anesthesia issues that may suggest increased risk of complications or contraindication to planned procedure: none. Vitals Value Taken Time BP Pulse 111 02/27/22856 Resp 18 02/27/22856 Temp 36.1 ?C (97 ?F) 02/27/22856 SpO2 99 % 02/27/22856 Facility-Administered Medications as of 02/27/2022 Medication Dose [...] to affected area three times daily. - jghvhucr-ymflxdywz-bqvp icidin (NEOMYCIN) 1.75 mg-10,000 unit-0.025mg/mL drop Apply 3 drops to each ear twice daily. - cvxykqpm-hgwskxhmz-ypvc ocortisone (CORTISPORIN) 3.5-10,000-1 mg/mL-unit/mL-% otic suspension Use [...] mouth once daily. (more content not included)... [facility] BRIEF OP NOTon 02-27-2022 BRIEF OP NOT HNO ID: [id number] Author: Camryn Davila MD Service: Ophthalmology Author Type: Physician Type: Brief Op Note Filed: 02/27/2022 11:30 AM Note Text: BRIEF OP NOTE LOG ID: [id number] Surgery/Procedure Date: 02/27/2022 Incision/Procedure Start Time: 10:35 AM Incision Close/Procedure End Time: 11:28AM Surgeon(s)/Proceduralis t(s) and Can Inspector(s): Surgeon(s) and Role: * Camryn Davila MD [...] DATE: February 27, 2022 TIME: PAGER/CONTACT #: [facility] Rissa 02-27-2022 CNPN Telephone (CARDMN) THANH COLEMAN ([id number]) 1935 M Date Time Provider Department 02/27/22 JAYJAY SWEENEY During your visit today, we recorded the following information about you: Ana Thomas RN 02/27/2022 12:13 PM Signed Called patient, no answer, unable to leave message, will attempt again later. Per Dr Sweeney: BRYAN This pt's PPM was at the elective [...] change to be rescheduled with us. thanks bryan Thomas RN 02/28/2022 4:50 PM Signed Called patient, no answer, unable to leave message, will attempt again later. Ana Thomas RN 03/01/2022 3:22 PM Signed Spoke to patient who reports getting device done locally, he thinks at [place]. Patient asks if he still needs home [...] to affected area three times daily. - nkwefklj-ktuattvuc-gujm icidin (NEOMYCIN) 1.75 mg-10,000 unit-0.025mg/mL drop Apply 3 drops to each ear twice daily. - jdlffams-tofayaeum-tdqu ocortisone (CORTISPORIN) 3.5-10,000-1 mg/mL-unit/mL-% otic suspension Use [...] (FLONASE) 50 mcg/actuation nasal spray Use 1 Duncan in each nostril daily at bedtime. - [...] Asymptomatic LV dysfunction [I51.9] 08/10/2015 History of [place] (myocardial infarction) [I25.2] 08/10/2015 Stenosis of right [...] 06/19/2016 06/22/2020 (more content not included)... [facility] VIRGINIATHANH Shelton ([id number]) 1935 M Date Time Provider Department 02/27/22 [...] to affected area three times daily. - gtkzxlqb-lidprndeo-olqr icidin (NEOMYCIN) 1.75 mg-10,000 unit-0.025mg/mL drop Apply 3 drops to each ear twice daily. - pggavihb-nglfqizjh-hsdc ocortisone (CORTISPORIN) 3.5-10,000-1 mg/mL-unit/mL-% otic suspension Use [...] (FLONASE) 50 mcg/actuation nasal spray Use 1 Duncan in each nostril daily at bedtime. - [...] Asymptomatic LV dysfunction [I51.9] 08/10/2015 History of [place] (myocardial infarction) [I25.2] 08/10/2015 Stenosis of right [...] Coronary a (more content not included)... [facility] THANH COLEMAN ([id number]) 1935 M Date Time Provider Department 02/27/22 BENITA MCCORMACK During your visit today, we recorded the following information about you: Benita Mccormack MD 02/27/2022 2:24 PM Signed Called bowl attendant ([place], [place]) to discuss patient's post-op instructions for resuming anticoagulation. Patient's grain loader is Dr. Shen. Discussed with Bee Flores [...] to affected area three times daily. - dpsnszik-zfrbwizgr-khnw icidin (NEOMYCIN) 1.75 mg-10,000 unit-0.025mg/mL drop Apply 3 drops to each ear twice daily. - aotcnisa-btcbyzvjt-aopc ocortisone (CORTISPORIN) 3.5-10,000-1 mg/mL-unit/mL-% otic suspension Use [...] (FLONASE) 50 mcg/actuation nasal spray Use 1 Duncan in each nostril daily at bedtime. - [...] Asymptomatic LV dysfunction [I51.9] 08/10/2015 History of [place] (myocardial infarction) [I25.2] 08/10/2015 Stenosis of right [...] 06/19/2016 S (more content not included)... Normal [facility] HISTORY PHYSICALon HISTORY PHYSICAL HNO ID: [id number] Author: Benita Mccormack MD Service: Ophthalmology Author [...] General: Denies fevers, chills, unexplained weight loss ZOOLOGY PROFESSOR: Denies headache, weakness, numbness, tingling Resp: Denies cough, pneumonia in past 6 months, shortness of breath. CV: Denies angina, recent [place]/PCI/CABG, dyspnea on exertion, peripheral edema Abdomen: Denies diarrhea, constipation, melena, hematemesis, ascities Endo: Denies recent steroid use and diabetes Hematologic: Denies easy bruising/bleeding, antiplatelet/anticoagul ation use. Denies history of cancer. PM 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/2020 CKD (chronic kidney disease) stage 3, GFR 30-59 ml/min ([facility]) 12/2015 COPD (chronic obstructive pulmonary disease) ([facility]) Essential hypertension 06/19/2016 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 08/10/2015 H/O abdominal aortic aneurysm repair 08/10/2015 H/O right heart catheterization High blood pressure History of heart attack History of [place] (myocardial infarction) 08/10/2015 Hyperlipidemia, unspecified 12/23/2019 Hypertensive [...] (HCC) 08/10/2015 Stage 3b chronic kidney disease ([facility]) 12/21/2015 TB (pulmonary tuberculosis) Thrombocytopenia ([facility]) PSH PAST SURGICAL HISTORY Procedure Laterality Date ABD AORTIC ANEURYSM REPAIR CORONARY STENT EA VESSEL 3-2008 x 2, drug eluting ILIAC PRINTED CIRCUIT LAYOUT TAPER W/WO STENT PACEMAKER DUAL CHAMBER TIER 0 [...] area three times daily.Disp: 60 mLRfl: 2 oquerlnz-xgvolcsht-wdlv icidin (NEOMYCIN) 1.75 mg-10,000 unit-0.025mg/mL dropApply 3 drops to each ear twice daily.Disp: 10 mLRfl: 2 vykytbja-vjjemffhu-ejeg ocortisone (CORTISPORIN) 3.5-10,000-1 mg/mL-unit/mL-% otic suspensionUse 4 Drops in the ears four times daily.Disp: 10 mLRfl: 2 warf (more content not included)... Normal [facility] HISTORY PHYSICAL HNO ID: [id number] Author: Pallavi Barrett PA-C Service: ? Author Type: Physician Can Inspector Type: HANDP Filed: 02/27/2022 10:10 AM Note [...] cholesterol test Anticoagulant long-term use Aortic aneurysm ([facility]) s/p repair AAA Arteriosclerosis of coronary artery 12/23/2019 pacemaker, hyperlipidemia, hyperlipidemia At risk for stroke Atrial flutter ([facility]) 03/03/2020 CAD (coronary artery disease) pacemaker, hyperlipidemia, hyperlipidemia Chronic combined systolic and diastolic congestive heart failure ([facility]) 09/26/2020 CKD (chronic kidney disease) stage 3, GFR 30-59 ml/min ([facility]) 12/2015 COPD (chronic obstructive pulmonary disease) ([facility]) Essential hypertension 06/19/2016 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 08/10/2015 H/O abdominal aortic aneurysm repair 08/10/2015 H/O right heart catheterization High blood pressure History of heart attack History of [place] (myocardial infarction) 08/10/2015 Hyperlipidemia, unspecified 12/23/2019 Hypertensive chronic kidney disease with stage 1 through stage 4 chronic kidney disease, or unspecified chronic kidney disease 12/23/2019 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 mskacbvv-bkcrblxqs-swki icidin (NEOMYCIN) 1.75 mg-10,000 unit-0.025mg/mL drop Apply 3 drops to each ear twice daily. marouwha-iosrhbyxv-duwd ocortisone (CORTISPORIN) 3.5-10,000-1 mg/mL-unit/mL-% otic suspension Use [...] (FLONASE) 50 mcg/actuation nasal spray Use 1 Duncan in each nostril daily at bedtime. aspirin, [...] See Comments REVIEW (more content not included)... [facility] OPERATIVE NOon 02-27-2022 OPERATIVE NO HNO ID: [id number] Author: Camryn Davila MD Service: Ophthalmology Author Type: Physician Type: Operative Report Filed: 02/27/2022 11:42 AM Note Text: OPERATIVE/PROCEDURE REPORT LOG ID: [id number] Surgery/Procedure Date: 02/27/2022 Incision/Procedure Start Time: 10:35 AM Incision Close/Procedure End Time: 11:28 AM Surgeon(s)/Proceduralis t(s) and Can Inspector(s): Surgeon(s) and Role: * Camryn Davila MD [...] repair a full thickness eyelid defect Anesthesia: [facility] Procedure Details: After the risks and benefits [...] SIGNATURE: Camryn Davila MD PATIENT NAME: Thanh E [place] DATE: February 27, 2022 TIME: PAG[facility] Office [facility] ([facility] ) VIRGINIATHANH Shelton ([id number]) 1935 M Date Time Provider Department 02/26/22 9:40 AM ANA MARIA JOLLY [facility] During your visit today, we recorded the following information about you: Ana Maria Jolly MD 02/26/2022 1:01 PM Signed MOHS MICROGRAPHIC OPERATIVE REPORT - 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 DAVILA) SERVICE DATE: 02/26/2022 SERVICE TIME: 939 LOCATION: [address] [place] [address] REFERRING PROVIDER: Dr Kang PROCEDURE START TIME: 939 PROCEDURE END TIME: 114 SURGEON: Dr. Ana Maria Jolly RESIDENT: Dr. [...] possible retained foreign bodies accounted for. 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 Normal [facility] Rissa 02-26-2022 CNPN Telephone (PANEWL) THANH COLEMAN ([id number]) 1935 M Date Time Provider Department 02/26/22 OSTO NAILS During your visit today, we recorded [...] to affected area three times daily. - wczszxob-wnmmijtja-wxbj icidin (NEOMYCIN) 1.75 mg-10,000 unit-0.025mg/mL drop Apply 3 drops to each ear twice daily. - gezzmnck-uuvauotha-evlp ocortisone (CORTISPORIN) 3.5-10,000-1 mg/mL-unit/mL-% otic suspension Use [...] (FLONASE) 50 mcg/actuation nasal spray Use 1 Duncan in each nostril daily at bedtime. - [...] Asymptomatic LV dysfunction [I51.9] 08/10/2015 History of [place] (myocardial infarction) [I25.2] 08/10/2015 Stenosis of right [...] [S30.861A, W57.XXXA (more content not included)... Normal [facility] CNPN Telephone (PANEWL) THANH COLEMAN ([id number]) 1935 M Date Time Provider Department 02/26/22 SOTO NAILS During your visit today, we recorded the following information about you: Soto Nails RN 02/26/2022 1:12 PM Signed PACC appt 02-25-22 and NO SHOW. No appts available today for procedure scheduled tomorrow, 02-27-[address] Per Malathi Brody: HANDP to be completed on DOS. Received message from Sangeeta-site safety coordinator: Please note for pt instructions- since he was not aware to stop pt did take his eliquis today, but Dr Davila is aware and said to just have him stop tomorrow. ADDENDUM 02/26/22: Ok per Dr. Sweeney to hold Eliquis. Jacky Sanchez APRN.[facility] [employer] PPM-check in [facility] 11-17-21 BATTERY STATUS: KYLAH was triggered [...] to affected area three times daily. - ulsyarpt-tkpbxflht-baya icidin (NEOMYCIN) 1.75 mg-10,000 unit-0.025mg/mL drop Apply 3 drops to each ear twice daily. - ktxzwrhx-iqbolbmym-pvjg ocortisone (CORTISPORIN) 3.5-10,000-1 mg/mL-unit/mL-% otic suspension Use [...] (FLONASE) 50 mcg/actuation nasal spray Use 1 Duncan in each nostril daily at bedtime. - [...] Asymptomatic LV dysfunction [I51.9] 08/10/2015 History of [place] (myocardial infarction) [I25.2] 08/10/2015 Stenosis of right [...] COPD (chroni (more content not included)... Normal [facility] NURSING PROGon 02-26-2022 NURSING PROG HNO ID: [id number] Author: Soto Nails RN Service: Anesthesiology Author Type: Registered Nurse Type: Nursing Progress Note Filed: 02/26/2022 12:50 PM Note Text: PATIENT PREOPERATIVE INSTRUCTIONS Dr. Davila has scheduled you for your procedure at this surgery center: [facility]: [phone] --[address] [place] [address]. Please enter through the entrance closest to [...] Dr. Sweeney to hold Eliquis. Jacky Sanchez APRN.RETAIL WAREHOUSE ASSOCIATE Important Reminders: - If you use CPAP/BIPAP, [...] Procedures: - YOU MUST HAVE A RESPONSIBLE SENIOR POWER SCHEDULER TAKE YOU HOME. A RADIO PERFORMER OR PAPER CAP MACHINE OPERATOR CANNOT BE MADE A RESPONSIBLE SENIOR POWER SCHEDULER. - We recommend that a responsible person [...] Advance Directive, please fax a copy to [phone] or email to [email or web address] for it [...] your chart that day. Soto Nails RN [facility] SURGICAL PATHOLOGYon CASE REPORT Normal [facility] Comment on above: Order Comment: Speci cb Type: TISSUE SPECIMENOrdering Facility: [facility] Address: [address] [place] [phone] Result Comment: Surg [facility] Pathology Report Case: [id number] Authorizing Provider: Ana Maria Jolly MD Collected: 02/26/2022 11:52 AM Ordering Location: Dermatology Received: 02/26/2022 09:30 PM Pathologist: Baldemar Nails MD, PhD Specimen: SKIN SHAVE BIOPSY, A) left neck, R/O BCC Performed By: #### S ####[facility] LABCLIA [id number] [place] [address] [place] CLINICAL HISTORY n/a Normal [facility] Comment on above: Order Comment: Speci men Type: TISSUE SPECIMENOrdering Facility: [facility] Address: [address] [place] [phone] Performed By: #### S ####[facility] LABCLIA [id number] [address] FINAL DIAGNOSIS Normal [facility] Comment on above: Order Comment: Speci men Type: TISSUE SPECIMENOrdering Facility: [facility] Address: [address] [place] [address] Result Comment: Lesli. Nikita stratton, left neck, shave biopsy: -Chronic folliculitis. AF/CK 02/27/2022 Performed By: #### S ####[facility] LABIA [id number] [address] OF [facility] FINAL PERFORMING LAB Normal [facility] Comment on above: Order Comment: Speci men Type: TISSUE SPECIMENOrdering Facility: [facility] Address: [address] [place] [address] Result Comment: Diag nostic interpretation performed at [facility], [address] [place] [address] CLIA# [id number] Deputy Editor In Chief: Reggie Seth M.D. Performed By: #### S ####[facility] LABIA [id number] [address] GROSS DESCRIPTION Normal [facility] Comment on above: Order Comment: Speci men Type: TISSUE SPECIMENOrdering Facility: [facility] Address: [address] [place] [address] Result Comment: Lesli. Nikita STRATTON SHAVE BIOPSY Received in alcoholic formalin is a 0.8 x 0.6 x 0.2 cm shave of skin. On the skin surface there is a 0.8 cm morgan, slightly elevated area. The specimen is bisected. Totally submitted in one cassette. Gross examination performed at [facility], [address] [place] [address] 02/27/2022 12:54 AM Performed By: #### S ####[facility] LABCLIA [id number] [address] [address] [facility] Rissa 02-25-2022 PAXTON Telephone (PANEWO) VIRGINIATHANH Yee ([id number]) 1935 M Date Time Provider Department 02/25/22 [...] to affected area three times daily. - ffyvrshq-fgpzkfwsz-brci icidin (NEOMYCIN) 1.75 mg-10,000 unit-0.025mg/mL drop Apply 3 drops to each ear twice daily. - dwubdqeo-qhwzogshg-gcfk ocortisone (CORTISPORIN) 3.5-10,000-1 mg/mL-unit/mL-% otic suspension Use [...] (FLONASE) 50 mcg/actuation nasal spray Use 1 Duncan in each nostril daily at bedtime. - [...] Asymptomatic LV dysfunction [I51.9] 08/10/2015 History of [place] (myocardial infarction) [I25.2] 08/10/2015 Stenosis of right [...] 10/08/2017 0 (more content not included)... Normal [facility] CBC W Auto Differential pane l (Bld)on 01-08-2022 Abs Immature Gran 0.03 k/uL <0.10 k/uL [facility] Basophils (Bld) [#/Vol] 0.07 10*3/uL <0.11 k/uL [facility] Basophils/100 WBC (Bld) 1.0 % [facility] Differential cell count method Nom (Bld) Auto [facility] Eosinophils (Bld) [#/Vol] 0.43 10*3/uL <0.46 k/uL [facility] Eosinophils/100 WBC (Bld) 5.9 % [facility] Erythrocyte distribution width (RBC) [Ratio] 13.5 % 11.5 - 15.0 % [facility] Hematocrit (Bld) [Volume fraction] 48.5 % 39.0 - 51.0 % [facility] Hemoglobin (Bld) [Mass/Vol] 15.6 g/dL 13.0 - 17.0 g/dL [facility] Immature Gran % 0.4 % [facility] Lymphocytes (Bld) [#/Vol] 2.21 10*3/uL 1.00 - 4.00 k/uL [facility] Lymphocytes/100 WBC (Bld) 30.5 % [facility] MCH (RBC) [Entitic mass] 31.3 pg 26.0 - 34.0 pg [facility] MCHC (RBC) [Mass/Vol] 32.2 g/dL 30.5 - 36.0 g/dL [facility] MCV (RBC) [Entitic vol] 97.4 fL 80.0 - 100.0 fL [facility] Monocytes (Bld) [#/Vol] 0.70 10*3/uL <0.87 k/uL [facility] Monocytes/100 WBC (Bld) 9.7 % [facility] Neutrophils (Bld) [#/Vol] 3.80 10*3/uL 1.45 - 7.50 k/uL [facility] Neutrophils/100 WBC (Bld) 52.5 % [facility] Nucleated RBC (Bld) [#/Vol] <0.01 k/uL [facility] Nucleated RBC/100 WBC (Bld) [Ratio] 0.0 /100 WBC [facility] Platelet mean volume (Bld) [Entitic vol] 12.7 fL 9.0 - 12.7 fL [facility] Platelets (Bld) [#/Vol] 135 10*3/uL Low 150 - 400 k/uL [facility] RBC (Bld) [#/Vol] 4.98 10*6/uL 4.20 - 6.00 m/uL [facility] WBC (Bld) [#/Vol] 7.24 10*3/uL 3.70 - 11.00 k/u L [facility] Comprehensive metabolic 2000 panelon 01-08-2022 Albumin [Mass/Vol] 4.3 g/dL 3.9 - 4.9 g/dL [facility] ALP [Catalytic activity/Vol] 54 U/L 38 - 113 U/L [facility] ALT [Catalytic activity/Vol] 21 U/L 10 - 54 U/L [facility] Anion gap [Moles/Vol] 11 mmol/L 9 - 18 mmol/L [facility] AST [Catalytic activity/Vol] 25 U/L 14 - 40 U/L [facility] Bilirubin [Mass/Vol] 0.5 mg/dL 0.2 - 1.3 mg/dL [facility] Calcium [Mass/Vol] 9.7 mg/dL 8.5 - 10.2 mg/dL [facility] Chloride [Moles/Vol] 104 mmol/L 97 - 105 mmol/L [facility] CO2 [Moles/Vol] 27 mmol/L 22 - 30 mmol/L [facility] Creatinine [Mass/Vol] 1.80 mg/dL High 0.73 - 1.22 mg/dL [facility] Estimated Glomerular Filtration Rate 36 mL/min/1.73m Low >=60 mL/min/1.73m [facility] Glucose [Mass/Vol] 117 mg/dL High 74 - 99 mg/dL [facility] Potassium [Moles/Vol] 4.5 mmol/L 3.7 - 5.1 mmol/L [facility] Protein [Mass/Vol] 7.3 g/dL 6.3 - 8.0 g/dL [facility] Sodium [Moles/Vol] 142 mmol/L 136 - 144 mmol/L [facility] Urea nitrogen [Mass/Vol] 29 mg/dL High 9 - 24 mg/dL [facility] NT PRO BNPon 01-08-2022 Natriuretic peptide.B prohormone N-Terminal [Mass/Vol] 1295 pg/mL High <450 pg/mL [facility] VITAMIN B12 BLOODon 01-09-20 Cobalamin (Vitamin B12) [Mass/Vol] 353 pg/mL 232 - 1,245 pg/mL [facility] VITAMIN D 25 HYDROXYon 01-08 25-hydroxyvitamin D3 [Mass/Vol] 27.3 ng/mL Low 31.0 - 80.0 ng/mL [facility] XR CHEST 2 VIEWSon XR CHEST 2 VIEWS ORIGINAL EXAMINATION: TWO [...] Date: 12/05/2021 6:35:07 AM Ordering Provider: KAREEM Mena [facility] ([place]) .Auto Diffon 12-04-2021 Basophil, Absolute 0.1 10 3/mcL Normal 0.0-0.3 [facility] ([place]) Comment on above: Performed By: #### CHLOE SINGH #### [address] [address] Basophils/100 WBC (Bld) 0.9 % Normal 0.0-2.5 [facility] ([place] Comment on above: Performed By: #### G CHLOE KHAN #### [address] [address] Eosinophil, Absolute 0.4 10 3/mcL Normal 0.0-0.7 [facility] ([place] Comment on above: Performed By: #### G FR, BMP #### [address] [address] Eosinophils/100 WBC (Bld) 4.5 % Normal 0.0-6.0 [facility] ([place] Comment on above: Performed By: #### G FR, BMP #### [address] [address] Lymphocyte, Absolute 1.9 10 3/mcL Normal 0.9-4.3 [facility] ([place] Comment on above: Performed By: #### G FR, BMP #### [address] [address] Lymphocytes/100 WBC (Bld) 24.0 % Normal 20.0-40.0 [facility] ([place] Comment on above: Performed By: #### G FR, BMP #### [address] [address] Monocyte, Absolute 0.9 10 3/mcL Normal 0.1-1.4 [facility] ([place] Comment on above: Performed By: #### G FR, BMP #### [address] [address] Monocytes/100 WBC (Bld) 11.1 % Normal 2.0-13.0 [facility] ([place] Comment on above: Performed By: #### G FR, BMP #### [address] [address] Neutrophils/100 WBC (Bld) 59.5 % Normal 50.0-75.0 [facility] ([place] Comment on above: Performed By: #### G FR, BMP #### [address] [address] .GFRon 12-04-2021 GFR Non- 37 ml/min/1.73sqm Normal [facility] ([place] Comment on above: Result Comment: GFR Population [...] Performed By: #### [place] KHAN, BMP #### [address] [address] GFR 45 ml/min/1.73sqm Normal [facility] ([place] Comment on above: Result Comment: GFR Population [...] Performed By: #### [place] KHAN, BMP #### [address] [address] .MDWon 12-04-2021 Monocyte Distribution Width Not performed Normal 0.00-20.00 [facility] ([place] Comment on above: Result Comment: MDW testing performed only on adult ER patients between the ages of 18-89 years. Performed By: #### [place] KHAN, BMP #### [address] [address] .NEUABSon 12-04-2021 Neutrophil, Absolute 4.8 10 3/mcL Normal 2.3-8.1 [facility] ([place] Comment on above: Performed By: #### [place] KHAN, BMP #### [address] [address] ABO/Rh (Gel)on 12-04-2021 ABO/Rh Interp Positive Invalid Interpretation Code [facility] [place] Comment on above: Performed By: #### [place] KHAN, BMP #### [address] [address] ABS (Gel)on 12-04-2021 ABSC Interp (Gel) Negative Normal [facility] ([place] Comment on above: Performed By: #### [place] KHAN, BMP #### [address] [address] BMPon 12-04-2021 BUN/Creatinine Ratio 25.3 ratio High 10.0-22.0 [facility] ([place] Comment on above: Performed By: #### Svaannah KHAN, BMP #### [address] [address] Calcium [Mass/Vol] 9.6 mg/dL Normal 8.7-10.4 [facility] [place] ([place] Comment on above: Performed By: #### [place] KHAN, BMP #### [address] [address] Chloride [Moles/Vol] 112 mmol/L High 98-110 [facility] ([place] Comment on above: Performed By: #### [place] KHAN, BMP #### [address] [address] CO2 [Moles/Vol] 30 mmol/L Normal 22-32 [facility] ([place] Comment on above: Performed By: #### [place] KHAN, BMP #### [address] [address] Creatinine [Mass/Vol] 1.74 mg/dL High 0.60-1.40 [facility] ([place] Comment on above: Performed By: #### [place] KHAN, BMP #### [address] [address] Electrolyte Balance 5.0 mEq/L Normal 4.0-15.0 [facility] ([place]) Comment on above: Performed By: #### [place]annah KHAN, BMP #### [place] [id number] Glucose [Mass/Vol] 93 mg/dL Normal 82-115 [facility] ([place] Comment on above: Performed By: #### G FR, BMP #### [address] [address] Potassium [Moles/Vol] 4.1 mmol/L Normal 3.5-5.0 [facility] ([place] Comment on above: Performed By: #### G FR, BMP #### [address] [address] Sodium [Moles/Vol] 147 mmol/L High 136-145 [facility] ([place] Comment on above: Performed By: #### G , BMP #### [address] [address] Urea nitrogen [Mass/Vol] 44.0 mg/dL High 8.0-22.0 [facility] ([place] Comment on above: Performed By: #### [place]annah KHAN, BMP #### [place] [id number] CBCon 12-04-2021 Erythrocyte distribution width (RBC) [Ratio] 14.2 % Normal 11.5-15.5 [facility] ([place] Comment on above: Performed By: #### [place] KHAN, BMP #### [address] [address] Hematocrit (Bld) [Volume fraction] 48.0 % Normal 40.0-52.0 [facility] ([place] Comment on above: Performed By: #### [place] KHAN, BMP #### [address] [address] Hgb 16.0 G/dL Normal 13.0-17.5 [facility] ([place] Comment on above: Performed By: #### G FR, BMP #### [address] [address] MCH (RBC) [Entitic mass] 31.4 pg Normal 27.0-33.0 [facility] ([place] Comment on above: Performed By: #### G FR, BMP #### [place] [id number] MCHC 33.3 G/dL Normal 32.0-36.0 [facility] ([place] Comment on above: Performed By: #### G FR, BMP #### [address] [address] MCV (RBC) [Entitic vol] 94.3 fL Normal 81.0-100.0 [facility] [place] Comment on above: Performed By: #### G FR, BMP #### [address] [address] Platelet 122 10 3/mcL Low 150-450 [facility] ([place] Comment on above: Performed By: #### G FR, BMP #### [address] [address] Platelet mean volume (Bld) [Entitic vol] 9.7 fL Normal 6.4-10.5 [facility] ([place] Comment on above: Performed By: #### [place] FR, BMP #### [place] [address] RBC 5.09 10 6/mcL Normal 4.50-6.00 [facility] ([place] Comment on above: Performed By: #### G FR, BMP #### [address] [address] WBC 8.1 10 3/mcL Normal 4.5-10.8 [facility] ([place] Comment on above: Performed By: #### G FR, BMP #### [address] [address] LABORATORYOrdered By: Ginny Anderson on 12-04-2021 ABO and Rh group Nom (Bld) Blood group A Rh(D) positive Invalid Interpretation Code AH BB Auto SS Blood group antibody screen Ql NEG (12/04/21 7:41 AM) Invalid Interpretation Code AH BB Auto SS LABORATORYOrdered By: SYSTEM SYSTEM [...] Invalid Interpretation Code 13.0 - 17.5 G/dL Workflow SS Lymphocytes (Bld) [#/Vol] 1.9 103/mcL Invalid Interpretation Code 0.9 - 4.3 10^3/mcL Workflow SS Lymphocytes/100 WBC (Bld) 24.0 % Invalid Interpretation Code 20.0 - 40.0 % Workflow SS MCH (RBC) [Entitic mass] 31.4 pg Invalid Interpretation Code 27.0 - 33.0 pg Workflow SS MCHC 33.3 G/dL Invalid Interpretation Code 32.0 - 36.0 G/dL Workflow SS MCV (RBC) [Entitic vol] 94.3 fL Invalid Interpretation Code 81.0 - 100.0 fL Workflow SS Monocyte distribution width Auto (Bld) [Entitic vol] Not Performed 1 *NA* (12/04/21 7:41 AM) Invalid Interpretation Code 0.00 - 20.00 Hematology S Comment on above: Result Comment: MDW testing performed only on adult ER patients between the ages of 18-89 years. Monocytes (Bld) [#/Vol] 0.9 103/mcL Invalid Interpretation Code 0.1 - 1.4 10^3/mcL Workflow SS Monocytes/100 WBC (Bld) 11.1 % Invalid Interpretation Code 2.0 - 13.0 % Workflow SS Neutrophils (Bld) [#/Vol] 4.8 103/mcL Invalid Interpretation Code 2.3 - 8.1 10^3/mcL Workflow SS Neutrophils/100 WBC (Bld) 59.5 % Invalid Interpretation Code 50.0 - 75.0 % Workflow SS Platelet mean volume (Bld) [Entitic vol] 9.7 fL Invalid Interpretation Code 6.4 - 10.5 fL Workflow SS Platelets (Bld) [#/Vol] 122 103/mcL Invalid Interpretation Code 150 - 450 10^3/mcL Workflow SS Potassium [Moles/Vol] 4.1 mmol/L Invalid Interpretation Code 3.5 - 5.0 mEq/L ADM SS RBC (Bld) [#/Vol] 5.09 106/mcL Invalid Interpretation Code 4.50 - 6.00 10^6/mcL Workflow SS Sodium [Moles/Vol] 147 mmol/L Invalid Interpretation Code 136 - 145 mEq/L ADM SS Urea nitrogen [Mass/Vol] 44.0 mg/dL Invalid Interpretation Code 8.0 - 22.0 mg/dL ADM SS Urea nitrogen/Creatinine [Mass ratio] 25.3 ratio Invalid Interpretation Code 10.0 - 22.0 ratio ADM SS WBC 8.1 103/mcL Invalid Interpretation Code 4.5 - 10.8 10^3/mcL Workflow SS No Panel Informationon 11-20 BLANK _ [facility] Implant Date 08/17/2012 [facility] Model 5086MRI CapSureFix M RI SureScan [facility] PACEMAKER REMOTE CHECKon Battery Voltage (volts) 2.8 V [facility] Filipe RA Sensing Amplitude (mvolts) 0.15 mV [facility] Filipe RA Sensing Blanking Period (ms) 150 ms [facility] Filipe RA Sensing Polarity BI [facility] Filipe RV Pacing Amplitude (volts) 2 V [facility] Filipe RV Pacing Polarity BI [facility] Filipe RV Pacing Pulse Width (ms) 0.4 ms [facility] Filipe RV Sensing Amplitude (mvolts) 2.8 mV [facility] Filipe RV Sensing Blanking Period (ms) 200 ms [facility] Filipe RV Sensing Polarity UNI [facility] Hysteresis Rate (bpm) DISABLED [facility] Lead1 Mfg MDT [facility] Lead2 Mfg MDT [facility] Location RA [facility] Location RV [facility] Lower Rate (bpm) 65 {beats}/min [facility] Model [id number] [facility] Pacing Mode VVI [facility] PM-Device Mfg ANNA [facility] PM-Percent Pacing (A) 0 % [facility] PM-Percent Pacing (V) 98.41 % [facility] RA Bipolar Impedance ohms 361 ohm [facility] RA Unipolar Impedance ohms 285 ohm [facility] RV Bipolar Impedance ohms 551 ohm [facility] RV Unipolar Impedance 475 ohm [facility] Serial Number [id number] [facility] Serial Number [id number] [facility] Serial Number [id number] [facility] Thresh RA Capture Amplitude (volts) 1.125 V [facility] Thresh RA Capture Duration (ms) 0.4 ms [facility] Thresh RA Sensing Amplitude (mvolts) 0.5 mV [facility] Thresh RV Capture Amplitude (volts) 0.75 V [facility] Thresh RV Capture Duration (ms) 0.4 ms [facility] Thresh RV Sensing Amplitude (mvolts) 11.25 mV [facility] No Panel Informationon 09-13 BLANK _ [facility] Implant Date 08/17/2012 [facility] Model 5086MRI CapSureFix M RI SureScan [facility] PACEMAKER REMOTE CHECKon AV Delay Adaptive Paced Minimum (ms) 180 ms [facility] AV Delay Adaptive Status DISABLED [facility] Battery Voltage (volts) 2.81 V [facility] Filipe RA Pacing Amplitude (volts) 2.25 V [facility] Filipe RA Pacing Polarity BI [facility] Filipe RA Pacing Pulse Width (ms) 0.4 ms [facility] Filipe RA Sensing Amplitude (mvolts) 0.15 mV [facility] Filipe RA Sensing Blanking Period (ms) 150 ms [facility] Filipe RA Sensing Polarity BI [facility] Filipe RA Sensing Refractory Period (ms) Auto [facility] Filipe RV Pacing Amplitude (volts) 2 V [facility] Filipe RV Pacing Polarity BI [facility] Filipe RV Pacing Pulse Width (ms) 0.4 ms [facility] Filipe RV Sensing Amplitude (mvolts) 2.8 mV [facility] Filipe RV Sensing Blanking Period (ms) 200 ms [facility] Filipe RV Sensing Polarity UNI [facility] Hysteresis Rate (bpm) DISABLED [facility] Lead1 Mfg MDT [facility] Lead2 Mfg MDT [facility] Location RA [facility] Location RV [facility] Lower Rate (bpm) 60 {beats}/min [facility] Max Sensor Rate (bmp) 110 {beats}/min [facility] Model [id number] DUNN [facility] Pacing Mode DDIR [facility] PM-Device Mfg MDT [facility] PM-Percent Pacing (A) 19.72 % [facility] PM-Percent Pacing (V) 41.17 % [facility] PM-PVC Intervention ENABLED [facility] PM-Rate Modulation Acceleration Reaction 30 s [facility] PM-Rate Modulation ADL Rate (bpm) 95 {beats}/min [facility] PM-Rate Modulation Deceleration Exercise [facility] PM-Rate Modulation [place] 3 [facility] PM-Rate Modulation Threshold MediumLow [facility] RA Bipolar Impedance ohms 380 ohm [facility] RA Unipolar Impedance ohms 304 ohm [facility] RV Bipolar Impedance ohms 570 ohm [facility] RV Unipolar Impedance 475 ohm [facility] Serial Number [id number] [facility] Serial Number [id number] [facility] Serial Number [id number] [facility] Thresh RA Capture Amplitude (volts) 1.125 V [facility] Thresh RA Capture Duration (ms) 0.4 ms [facility] Thresh RA Sensing Amplitude (mvolts) 1 mV [facility] Thresh RV Capture Amplitude (volts) 0.75 V [facility] Thresh RV Capture Duration (ms) 0.4 ms [facility] Thresh RV Sensing Amplitude (mvolts) 14.25 mV [facility] No Panel Informationon 09-04 BLANK _ [facility] Implant Date 08/17/2012 [facility] Model 5086MRI CapSureFix M RI SureScan [facility] PACEMAKER REMOTE CHECKon AV Delay Adaptive Paced Minimum (ms) 180 ms [facility] AV Delay Adaptive Status DISABLED [facility] Battery Voltage (volts) 2.81 V [facility] Filipe RA Pacing Amplitude (volts) 2.25 V [facility] Filipe RA Pacing Polarity BI [facility] Filipe RA Pacing Pulse Width (ms) 0.4 ms [facility] Filipe RA Sensing Amplitude (mvolts) 0.15 mV [facility] Filipe RA Sensing Blanking Period (ms) 150 ms [facility] Filipe RA Sensing Polarity BI [facility] Filipe RA Sensing Refractory Period (ms) Auto [facility] Filipe RV Pacing Amplitude (volts) 2 V [facility] Filipe RV Pacing Polarity BI [facility] Filipe RV Pacing Pulse Width (ms) 0.4 ms [facility] Filipe RV Sensing Amplitude (mvolts) 2.8 mV [facility] Filipe RV Sensing Blanking Period (ms) 200 ms [facility] Filipe RV Sensing Polarity UNI [facility] Hysteresis Rate (bpm) DISABLED [facility] Lead1 Mfg MDT [facility] Lead2 Mfg MDT [facility] Location RA [facility] Location RV [facility] Lower Rate (bpm) 60 {beats}/min [facility] Max Sensor Rate (bmp) 110 {beats}/min [facility] Model [id number] DUNN [facility] Pacing Mode DDIR [facility] PM-Device Mfg MDT [facility] PM-Percent Pacing (A) 94.79 % [facility] PM-Percent Pacing (V) 98.22 % [facility] PM-PVC Intervention ENABLED [facility] PM-Rate Modulation Acceleration Reaction 30 s [facility] PM-Rate Modulation ADL Rate (bpm) 95 {beats}/min [facility] PM-Rate Modulation Deceleration Exercise [facility] PM-Rate Modulation Liberty 3 [facility] PM-Rate Modulation Threshold MediumLow [facility] RA Bipolar Impedance ohms 361 ohm [facility] RA Unipolar Impedance ohms 304 ohm [facility] RV Bipolar Impedance ohms 532 ohm [facility] RV Unipolar Impedance 456 ohm [facility] Serial Number [id number] [facility] Serial Number [id number] [facility] Serial Number [id number] [facility] Thresh RA Capture Amplitude (volts) 1.125 V [facility] Thresh RA Capture Duration (ms) 0.4 ms [facility] Thresh RA Sensing Amplitude (mvolts) 0.625 mV [facility] Thresh RV Capture Amplitude (volts) 0.75 V [facility] Thresh RV Capture Duration (ms) 0.4 ms [facility] Thresh RV Sensing Amplitude (mvolts) 15.25 mV [facility] No Panel Informationon 08-16 BLANK _ [facility] Implant Date 08/17/2012 [facility] Model 5086MRI CapSureFix M RI SureScan [facility] PACEMAKER REMOTE CHECKon AV Delay Adaptive Paced Minimum (ms) 180 ms [facility] AV Delay Adaptive Status DISABLED [facility] Battery Voltage (volts) 2.82 V [facility] Filipe RA Pacing Amplitude (volts) 2.25 V [facility] Filipe RA Pacing Polarity BI [facility] Filipe RA Pacing Pulse Width (ms) 0.4 ms [facility] Filipe RA Sensing Amplitude (mvolts) 0.15 mV [facility] Filipe RA Sensing Blanking Period (ms) 150 ms [facility] Filipe RA Sensing Polarity BI [facility] Filipe RA Sensing Refractory Period (ms) Auto [facility] Filipe RV Pacing Amplitude (volts) 2 V [facility] Filipe RV Pacing Polarity BI [facility] Filipe RV Pacing Pulse Width (ms) 0.4 ms [facility] Filipe RV Sensing Amplitude (mvolts) 2.8 mV [facility] Filipe RV Sensing Blanking Period (ms) 200 ms [facility] Filipe RV Sensing Polarity UNI [facility] Hysteresis Rate (bpm) DISABLED [facility] Lead1 Mfg T [facility] Lead2 Mfg T [facility] Location RA [facility] Location RV [facility] Lower Rate (bpm) 60 {beats}/min [facility] Max Sensor Rate (bmp) 110 {beats}/min [facility] Model [id number] DUNN [facility] Pacing Mode DDIR [facility] PM-Device Fabby CASTILLO [facility] PM-Percent Pacing (A) 53.9 % [facility] PM-Percent Pacing (V) 69.39 % [facility] PM-PVC Intervention ENABLED [facility] PM-Rate Modulation Acceleration Reaction 30 s [facility] PM-Rate Modulation ADL Rate (bpm) 95 {beats}/min [facility] PM-Rate Modulation Deceleration Exercise [facility] PM-Rate Modulation [place] 3 [facility] PM-Rate Modulation Threshold MediumLow [facility] RA Bipolar Impedance ohms 361 ohm [facility] RA Unipolar Impedance ohms 304 ohm [facility] RV Bipolar Impedance ohms 532 ohm [facility] RV Unipolar Impedance 456 ohm [facility] Serial Number [id number] [facility] Serial Number [id number] [facility] Serial Number [id number] [facility] Thresh RA Capture Amplitude (volts) 1.125 V [facility] Thresh RA Capture Duration (ms) 0.4 ms [facility] Thresh RA Sensing Amplitude (mvolts) 0.875 mV [facility] Thresh RV Capture Amplitude (volts) 0.75 V [facility] Thresh RV Capture Duration (ms) 0.4 ms [facility] Thresh RV Sensing Amplitude (mvolts) 14.125 mV [facility] XR Hand - left PA and Latera l and Obliqueon 06-18-2021 IMPRESSION: 1. Osseous demineralization. 2. Mild degenerative changes Child Support Investigator: [facility] Transcribe Date/Time: Jun 18 2021 11:15A Dictated by : RAGHU SORIA MD This examination was interpreted and the report reviewed and electronically signed by: RAGHU SORIA MD on Jun 18 2021 11:16AM [facility] DIVISION OF RADIOLOGY * * *Final Report* * * DATE OF EXAM: Jun 15 2021 2:12PM WOX [id number] - XR HAND 3V PA/LAT/OBL LT / PROCEDURE REASON: Swelling of left hand * * * * Physician Interpretation * * * * CLINICAL INDICATION: Hand swelling TECHNIQUE: 3 view radiographic study of the left hand COMPARISON: None FINDINGS: Osseous demineralization. Mild radiocarpal joint space narrowing. Mild joint space narrowing of the third metacarpal phalangeal joint. Scattered joint space narrowing of the interphalangeal joints. No acute fracture or dislocation identified. DIVISION OF RADIOLOGY Provider, Lillian Stacie Lees - 06/18/2021 * * *Final Report* * * DATE OF EXAM: Jun 15 2021 2:12PM WOX [id number] - XR HAND 3V PA/LAT/OBL LT / PROCEDURE REASON: Swelling of left hand * * * * Physician Interpretation * * * * CLINICAL INDICATION: Hand swelling TECHNIQUE: 3 view radiographic study of the left hand COMPARISON: None FINDINGS: Osseous demineralization. Mild radiocarpal joint space narrowing. Mild joint space narrowing of the third metacarpal phalangeal joint. Scattered joint space narrowing of the interphalangeal joints. No acute fracture or dislocation identified. IMPRESSION IMPRESSION: 1. Osseous demineralization. 2. 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 which is overall stable allowing for difference in film technique Child Support Investigator: [facility] Transcribe Date/Time: Jun 26 2020 2:06P Dictated by : CARLOS PHILLIPS MD This examination was interpreted and the report reviewed and electronically signed by: CARLOS PHILLIPS MD on Jun 26 2020 2:11PM [facility] DIVISION OF RADIOLOGY * * *Final Report* * * DATE OF EXAM: Jun 26 2020 2:03PM WOX [id number] - XR CHEST 2V FRONTAL/LAT / PROCEDURE REASON: Rhonchi * * * * Physician Interpretation * * * * EXAMINATION: CHEST RADIOGRAPH (2 VIEW FRONTAL & LATERAL) CLINICAL HISTORY: Rhonchi. MQ: XC2_6 EXAM DATE/TIME: 06/26/2020 2:03 PM COMPARISON: Comparison is made to prior chest dated 07 July 2017 and 12/27/2015. 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 There is no focal consolidation or acute pleural process. There is no vascular redistribution to suggest pulmonary edema.. Cardiomediastinal silhouette: Unchanged mediastinum with enlarged cardiac silhouette and unfolded enlarged thoracic aorta. Bones and soft tissues: The bony structures are intact. DIVISION OF RADIOLOGY Provider, Gualberto Lees - 06/26/2020 * * *Final Report* * * DATE OF EXAM: Jun 26 2020 2:03PM WOX [id number] - XR CHEST 2V FRONTAL/LAT / PROCEDURE REASON: Rhonchi * * * * Physician Interpretation * * * * EXAMINATION: CHEST RADIOGRAPH (2 VIEW FRONTAL & LATERAL) CLINICAL HISTORY: Rhonchi. MQ: XC2_6 EXAM DATE/TIME: 06/26/2020 2:03 PM COMPARISON: Comparison is made to prior chest dated 07 July 2017 and 12/27/2015. 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 There is no focal consolidation or acute pleural process. There is no vascular redistribution to suggest pulmonary edema.. Cardiomediastinal silhouette: Unchanged mediastinum with enlarged cardiac silhouette and unfolded enlarged thoracic aorta. Bones and soft tissues: The bony structures are intact. 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 which is overall stable allowing for difference in film technique Child Support Investigator: [facility] Transcribe Date/Time: Jun 26 2020 2:06P Dictated by : CARLOS PHILLIPS MD This examination was interpreted and the report reviewed and electronically signed by: CARLOS PHILLIPS MD on Jun 26 2020 2:11PM EST [facility] Radiology Study observation (narrative) [facility] XR Chest PA and LateralOrder ed By: [facility] Provider on 06-26-2020 [facility] Coronavirus 2019on COVID 19 Result 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 [facility] Comment on above: Result Comment: Posi tive for This test was developed and its performance characteristics determined by [facility]'s [facility] [place]. This test has been authorized by FDA [...] developed and its performance characteristics determined by [facility]'s [facility] [place]. This test has been authorized by FDA [...] developed and its performance characteristics determined by [facility] [place]. This test has been authorized by FDA [...] developed and its performance characteristics determined by [facility] [place]. This test has been authorized by FDA under an Emergency Use Authorization (EUA). This test has been validated in accordance with the FDA's Guidance Document Policy for Diagnostics Testing in Laboratories Certified to Perform High Complexity Testing under CLIA prior to Emergency use Authorization for Coronavirus Disease 2019 during the Public Health Emergency issued on June 19, 2019. COVID 19 Source EXERCISE PLANNER Normal [facility] Comment on above: Result Comment: Naso pharyngeal Corrected on 04/26 AT 0234: Previously reported as EXERCISE PLANNER SWAB Swab Corrected on 04/26 AT 0234: Previously reported as EXERCISE PLANNER SWAB ANES POSTPROC EVALon 020 ANES POSTPROC EVAL HNO ID: [id number] Author: Jose Soriano Service: ? Author Type: Anesthesiologist Type: Anesthesia Postprocedure Evaluation Filed: 03/03/2020 11:03 AM Note Text: POST ANESTHESIA EVALUATION NOTE : 1935 Procedure Summary Date: 03/03/20 Room / Location: [place] CATH PACU / [place] CATH Anesthesia Start: 1039 Anesthesia Stop: 1053 Procedure: CARDIOVERSION EXTERNAL ELECTIVE (N/A ) Diagnosis: [...] March 03, 2020 TIME: 11:03 AM CSN: [id number] [facility] ANES PRE-OPon 03-03-2020 ANES PRE-OP HNO ID: [id number] Author: Jose Soriano Service: ? Author Type: [...] chronic kidney disease NEURO-PSYCH (+) History of [place] (myocardial infarction) (+) History of heart attack [...] (FLONASE) 50 mcg/actuation nasal spray Use 1 Duncan in each nostril daily at bedtime. - [...] March 03, 2020 TIME: 10:29 AM CSN: [id number] Normal [facility] Basic Metabolic Panlon 03-03 Anion gap [Moles/Vol] 13 mmol/L Normal 9-18 [facility] Comment on above: Performed By: #### C MARK BMP ####[facility] [phone] Calcium [Mass/Vol] 9.6 mg/dL Normal 8.5-10.2 [facility] Comment on above: Performed By: #### C MARK, BMP ####[facility] M[address]br9318 [phone] Chloride [Moles/Vol] 107 mmol/L High 97-105 [facility] Comment on above: Performed By: #### C MARK BMP ####[facility] [address] [place] [address] CO2 [Moles/Vol] 26 mmol/L Normal 22-30 [facility] Comment on above: Performed By: #### C BC, BMP ####[facility] [address] [place] [address] Creatinine [Mass/Vol] 1.39 mg/dL High 0.73-1.22 [facility] Comment on above: Performed By: #### C BC, BMP ####[facility] [address] [place] [address] eGFR- Amer. 59 [facility] Comment on above: Performed By: #### C MARK, BMP ####[facility] [address] [place] [address] GFR/1.73 sq M predicted among non-blacks MDRD (S/P/Bld) [Vol rate/Area] 49 . [facility] Comment on above: Result Comment: eGFR [...] reflect actual GFR. Performed By: #### C BC, BMP ####[facility] [address]ves[address]721[address]5160 Glucose [Mass/Vol] 103 mg/dL High 74-99 [facility] Comment on above: Result Comment: The [place] [employer] (ADA) provides guidance for cutoff [...] Standards of Medical Care in Diabetes 2016, [place] [employer]. Diabetes Care. 2016.39(Suppl 1). Performed By: #### C BC, BMP ####[facility] [address] [place] [address] Potassium [Moles/Vol] 4.4 mmol/L Normal 3.7-5.1 [facility] Comment on above: Performed By: #### C BC, BMP ####[facility] [address] [place] [address] Sodium [Moles/Vol] 146 mmol/L High 136-144 [facility] Comment on above: Performed By: #### C BC, BMP ####[facility] [address] [place] [address] Urea nitrogen [Mass/Vol] 28 mg/dL High 9-24 [facility] Comment on above: Performed By: #### C BC, BMP ####[place] [address] CBCon 03-03-2020 Absolute nRBC <0.01 Normal <0.01 [facility] Comment on above: Performed By: #### C BC, BMP ####[place] [address] Erythrocyte distribution width (RBC) [Ratio] 13.2 % Normal 11.5-15.0 [facility] Comment on above: Performed By: #### C BC, BMP ####[place] [address] Hematocrit (Bld) [Volume fraction] 52.6 % High 39.0-51.0 [facility] Comment on above: Performed By: #### C BC, BMP ####[place] [address] Hemoglobin (Bld) [Mass/Vol] 16.4 g/dL Normal 13.0-17.0 [facility] Comment on above: Performed By: #### C BC, BMP ####[place] [address] MCH (RBC) [Entitic mass] 29.4 pG Normal 26.0-34.0 [facility] Comment on above: Performed By: #### C BC, BMP ####[facility] [address] [place] [address] MCHC (RBC) [Mass/Vol] 31.2 g/dL Normal 30.5-36.0 [facility] Comment on above: Performed By: #### Jamie FLORES, BMP ####[facility] [address] [place] [address] MCV (RBC) [Entitic vol] 94.3 fL Normal 80.0-100.0 [facility] Comment on above: Performed By: #### Jamie FLORES, BMP ####[facility] [address] [place] [address] Platelet mean volume (Bld) [Entitic vol] 12.2 fL Normal 9.0-12.7 [facility] Comment on above: Performed By: #### Jamie FLORES, BMP ####[facility] [address] [place] [address] Platelets (Bld) [#/Vol] 123 10*3/uL Low 150-400 [facility] Comment on above: Result Comment: No c lot detected. Performed By: #### Jamie FLORES, BMP ####[facility] [address] [place] [address] RBC (Bld) [#/Vol] 5.58 10*6/uL Normal 4.20-6.00 [facility] Comment on above: Performed By: #### Jamie FLORES, BMP ####[facility] [address] [place] [address] WBC (Bld) [#/Vol] 8.55 10*3/uL Normal 3.70-11.00 [facility] Comment on above: Performed By: #### Jamie FLORES, BMP ####[facility] [address] [place] [address] HISTORY PHYSICALon 0 HISTORY PHYSICAL HNO ID: [id number] Author: Merline Noland Service: Cardiovascular Disease Author [...] kidney disease) stage 3, GFR 30-59 ml/min ([facility]) 12/2015 - COPD (chronic obstructive pulmonary disease) ([facility]) - H/O right heart catheterization - High blood pressure - History of heart attack - Hypertriglyceridemia - Low HDL (under 40) - Neuropathy - TB (pulmonary tuberculosis) - Thrombocytopenia ([facility]) PAST SURGICAL HISTORY Procedure Laterality Date - ABD AORTIC ANEURYSM REPAIR - CORONARY STENT EA VESSEL 3-2008 x 2, drug eluting - ILIAC PRINTED CIRCUIT LAYOUT TAPER W/WO STENT - PACEMAKER DUAL CHAMBER TIER [...] at 0800 No Yes Sig: Use 1 Duncan in each nostril daily at bedtime. 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 SIGNATURE: Merline Noland MD [facility] PATIENT NAME: Thanh Coleman DATE: March 03, 2020 TIME: 9:07 AM Cell phone #: [phone] [facility] NURSING PROGon 03-03-2020 NURSING PROG HNO ID: [id number] Author: Santo (Rn) CELESTINE Willams Service: Nursing Author Type: Registered Nurse Type: Nursing Progress Note Filed: 03/03/2020 9:26 AM Note Text: 12 lead ekg complete . Labs drawn and sent [facility] OPERATIVE NOon 03-03-2020 OPERATIVE NO HNO ID: [id number] Author: Merline Noland Service: Cardiovascular Testing Author Type: Physician Type: Operative Report Filed: 03/03/2020 10:53 AM Note Text: OPERATIVE/PROCEDURE REPORT LOG ID: [id number] Surgery/Procedure Date: 03/03/2020 Incision/Procedure Start Time: 10:41 AM Incision Close/Procedure End Time: 10:45 AM Surgeon(s)/Proceduralis t(s) and Can Inspector(s): Surgeon(s) and Role: * Merline Noland - [...] or fellow trainee. SIGNATURE: Merline Noland MD [facility] PATIENT NAME: Thanh Coleman DATE: March 03, 2020 TIME: 10:51 AM MOBILE / CONTACT #: [phone] [facility] HOSPon 02-22-2020 HOSP Patient:Thanh Coleman MRN: Height:5' 10 (1.778 [...] [Z95.5] Asymptomatic LV dysfunction [I51.9] History of W[place] (myocardial infarction) [I25.2] Stenosis of right carotid [...] for the following basenames: K,HCT Progress Notes ([facility]): Delphine Nur Rambo 02/25/2020 3:05 PM Signed Patient has been identified by name and date of : Yes Pending Prescriptions Disp Refills ATORVASTATIN 40 MG TABLET 90 tablet 3 Sig: Take 1 tablet by mouth once daily. MEENA: No RX INSTRUCTIONS: Patient aware RX will be sent to pharmacy. No need to notify patient. Delphine Nur Rambo Last ov: 12/2019 Last refill; 03/2019 Nov: 03/2020 Progress Notes ([facility]): Jayjay Sweeney MD, MD 02/21/2020 4:20 PM Signed presented to device clinic today - in AFL with RVR at 150 bpm. Not acutely symptomatic Reviewed management - agreed to the following Increase Amio to 200 mg daily Increase Metoprolol to 50 mg BId Repeat DCC attempted - tentatively scheduled for 03-03-20. 2 week nurse follow up after that with EKG to assess rhythm control. Jayjay Sweeney MD [facility] ANES POSTPROC EVALon 020 ANES POSTPROC EVAL HNO ID: [id number] Author: Jose Soriano Service: ? Author Type: Anesthesiologist Type: Anesthesia Postprocedure Evaluation Filed: 01/14/2020 2:04 PM Note Text: POST ANESTHESIA EVALUATION NOTE : 1935 Procedure Summary Date: 01/14/20 Room / Location: [facility] PACU / [facility] Anesthesia Start: 1250 Anesthesia Stop: 1301 Procedure: [...] January 14, 2020 TIME: 2:04 PM CSN: [id number] [facility] ANES PRE-OPon 01-14-2020 ANES PRE-OP HNO ID: [id number] Author: Jose Soriano Service: ? Author Type: [...] chronic kidney disease NEURO-PSYCH (+) History of W[place] (myocardial infarction) (+) History of heart attack [...] (FLONASE) 50 mcg/actuation nasal spray Use 1 Duncan in each nostril daily at bedtime. - [...] January 14, 2020 TIME: 11:41 AM CSN: [id number] Normal [facility] HISTORY PHYSICALon 0 HISTORY PHYSICAL HNO ID: [id number] Author: Tk Zambrano DO Service: Cardiovascular Medicine [...] kidney disease) stage 3, GFR 30-59 ml/min ([facility]) 12/2015 - COPD (chronic obstructive pulmonary disease) ([facility]) ? - H/O right heart catheterization ? - High blood pressure ? - History of heart attack ? - Hypertriglyceridemia ? - Low HDL (under 40) ? - Neuropathy ([facility]) ? - TB (pulmonary tuberculosis) ? - Thrombocytopenia (HCC) ? ? PAST SURGICAL HISTORY PAST SURGICAL HISTORY Procedure Laterality Date - ABD AORTIC ANEURYSM REPAIR ? ? - CORONARY STENT EA VESSEL ? 3-2008 ? x 2, drug eluting - ILIAC PRINTED CIRCUIT LAYOUT TAPER W/WO STENT ? ? - PACEMAKER DUAL [...] (FLONASE) 50 mcg/actuation nasal spray Use 1 Duncan in each nostril daily at bedtime. - [...] JVD, carotids well felt, no bruits. CARDIAC: [place] palpable in the 5th intercostal space mid [...] antegrade flow noted. Technologist: Tiffany Ahuja RVT, [facility] Ordering physician: YONI TAPIA Interpreting physician: [...] (mg/dL) Date Value 04/01/2019 211 ? Normal [facility] OPERATIVE NOon 01-14-2020 OPERATIVE NO HNO ID: [id number] Author: Tk Zambrano DO Service: Cardiovascular Medicine Author Type: Physician Type: Operative Report Filed: 01/14/2020 1:01 PM Note Text: OPERATIVE/PROCEDURE REPORT LOG ID: [id number] Surgery/Procedure Date: 01/14/2020 Incision/Procedure Start Time: Incision Close/Procedure End Time: Surgeon(s)/Proceduralis t(s) and Can Inspector(s): Surgeon(s) and Role: * Tk Zambrano DO - [facility] No Additional Staff Procedure(s): DC Cardioversion Anesthesia: [...] or fellow trainee. SIGNATURE: Tk Zambrano DO [facility] PATIENT NAME: Thanh Coleman DATE: January 14, 2020 TIME: 1:01 PM MOBILE / CONTACT #: [facility] PT EDon 01-14-2020 PT ED HNO ID: [id number] Author: Johnna StylesRnAugusto Wang RN Service: Nursing Author Type: Registered Nurse Type: [...] Signed By: Johnna Wang RN In Department: [facility] CONTENT DEVELOPMENT MANAGER [facility] PT ED HNO ID: [id number] Author: Coral StylesRnAugusto Manzo RN Service: ? Author Type: Registered Nurse [...] Signed By: Coral Manzo RN In Department: [facility] CONTENT DEVELOPMENT MANAGER Normal [facility] HOSPon 01-04-2020 HOSP Patient:Thanh Coleman MRN: Height:5' [...] [Z95.5] Asymptomatic LV dysfunction [I51.9] History of W[place] (myocardial infarction) [I25.2] Stenosis of right carotid [...] kidney disease) stage 3, GFR 30-59 ml/min ([facility]) [N18.3] CAD (coronary artery disease) [I25.10] Aortic [...] 48.5 % 12/23/2019 55 39 Progress Notes ([facility]): Leslie Matute RN 01/05/2020 5:09 PM Signed Stephania @ [facility] calling to report she saw patient today for evaluation of home care needs. His BP was 107/64 HR 120 and irregularly irregular. Patient is asymptomatic. She is aware patient is scheduled for cardioversion on 01/13. Leslie Marina DO 01/05/2020 5:13 PM Signed Noted Boo Marina DO Progress Notes ([facility]): Lucrecia Kruger, RN, RN 01/03/2020 1:33 PM Signed Pt scheduled for cardioversion 01/12 at 1pm in [place]. Reminded to be NPO after midnight and continue to take eliquis every day and to let us know if he misses a dose. Pt states understanding. Transferred to program scheduler to schedule covid testing. Lucrecia Kruger RN, RN 01/03/2020 1:57 PM Signed Pt called to reschedule cardioversion to the 25th d/t ride [facility] STRESS TEST EXERCISEon 07-07 STRESS TEST EXERCISE NAME : VIRGINIATHANH Shelton PID : [id number] : 1935 Gender : Male Race : ORD : [id number] Procedure Date : Jul 08 2019 13:03:23 [...] Test Reason : CAD without Angina Location :RSL Overread By : [facility] Edited By : Keli Ovalle Referred By : LUKE BEACH Acquired by : BRITTANY HOBBS [facility] CNPLatanya 07-07-2019 CNPN Telephone ([facility]) THANH COLEMAN ([id number]) 1935 M Date Time Provider Department 07/07/19 SANGEETA MERINO (CELESTINE) [facility] During your visit today, we recorded [...] Fully Assessed Reason for Visit: Reminder Call [5840] Prescriptions as of 07/07/2019 Sig: PERFLUTREN LIPID [...] d* FLUTICASONE PROPIONATE 50 MCG* Use 1 Duncan in each nostril d* PACERONE 100 MG [...] Asymptomatic LV dysfunction [I51.9] 08/10/2015 History of WY (myocardial infarction) [I25.2] 08/10/2015 Stenosis of right [...] Encounter Status:Closed by SANGEETA MERINO on 07/07/19 [facility] 07-05-2019 [facility] Telephone ([facility]) THANH COLEMAN ([id number]) 1935 M Date Time Provider Department 07/05/19 SANGEETA MERINO (CELESTINE) [facility] During your visit today, we recorded the following information about you: Allergies As of Date: 07/05/2019 Noted Allergy Reaction DUST 05/29/2017 14 - Other: See Comments GRASS POLLEN 05/29/2017 14 - Other: See Comments MOLD SPORES 05/29/2017 14 - Other: See Comments Date Reviewed: 06/21/2019 Reviewed by: Darlin Magallon - Fully Assessed Reason for Visit: Reminder Call [9012] Prescriptions as of 07/05/2019 Sig: PERFLUTREN LIPID [...] d* FLUTICASONE PROPIONATE 50 MCG* Use 1 Duncan in each nostril d* PACERONE 100 MG [...] Asymptomatic LV dysfunction [I51.9] 08/10/2015 History of WY (myocardial infarction) [I25.2] 08/10/2015 Stenosis of right [...] Encounter Status:Closed by [facility] Office Visit (AGCARDWST) S THANH LOPEZ ([id number]) 1935 MDate Time Provider Department06/16/17 3:00 PM YONI TAPIA AGCARDWST During your visit [...] - metBeta isha for ASHD with prior WY or prior LVEFANDlt;40 (NQF 0070) - N/ABeta [...] with treatment plan.This note was generated using Dragon voice recognition system, and there may besome [...] (FLONASE) 50 mcg/actuation nasal spray Use 1 Duncan in each nostrildaily at bedtime.atorvastatin (LIPITOR) 40 [...] the study.Electronically Signed:Yoni Tapia MDFebruary 2017 3:10 [facility]: Jose Lyles MD 06/16/2017 3:10 PM SignedLIFESTYLE [...] programs in your area.Referring Provider: YONI TAPIA [[id number]]Allergies As of Date: 06/16/2017 Noted Allergy ReactionDUST 05/29/2017 14 - Other: See CommentsGRASS POLLEN 05/29/2017 14 - Other: See CommentsMOLD SPORES 05/29/2017 14 - Other: See CommentsDate Reviewed: 06/16/2017Reviewed by: Juan Carlos (Rn) CELESTINE Hammond - Fully AssessedReason for Visit: Follow Up [171]Primary Visit Diagnosis:PAF (paroxysmal atrial fibrillation) ([facility]) [I48.0]Order(s):ECG B/O W INTERP (MED OFFICE) [ECG06] Order #: [id number] as of 06/16/2017 Sig: AMIODARONE 100 MG TABLET Take 1 tablet by mouth once d* AMOXICILLIN 875 MG-POTASSIUM * Take 1 tablet by mouth twice * LISINOPRIL 20 MG TABLET TAKE ONE TABLET BY MOUTH ONCE* KLOR-CON M10 MEQ TABLET,EXTEN* TAKE ONE TABLET BY MOUTH ONCE* FLUTICASONE 50 MCG/ACTUATION * Use 1 Duncan in each nostril d* ATORVASTATIN 40 MG [...] LV dysfunction [I51.9] INVALID FOR* History of [place] (myocardial infarction) [I25.2] INVALID FOR* Stenosis of [...] the following areas and commit to making mcfp changes. EAT A WHOLE FOOD, PLANT BASED [...] SmartForms filed during this visit:Extended VitalsEncounter Number: [id number] Status:Closed by YONI TAPIA MD on 06/16/17 [facility] PROGRESSon 06-16-2017 PROGRESS HNO ID: [id number]: Yoni Dunaway: (none)Author Type: PhysicianType: Progress NotesFiled: [...] - metBeta isha for ASHD with prior WY or prior LVEF<40 (NQF 0070) - N/ABeta [...] with treatment plan.This note was generated using [employer] voice recognition system, and theremay be some [...] (FLONASE) 50 mcg/actuation nasal spray Use 1 Duncan in eachnostril daily at bedtime.atorvastatin (LIPITOR) 40 [...] fraction. Heartrate was 120 during the study.Electronically Signed:Yoni Tapia MDSoutheastern Arizona Behavioral Health Servicesuary 2017 3:10 [facility]: DO Trina Lyles [facility] Rissa 06-11-2017 [facility] Telephone (AGCARDWST) THANH Shelton AMS ([id number]) 1935 [facility] YONI TAPIAARDHENRI During your visit today, we recorded the [...] d* FLUTICASONE 50 MCG/ACTUATION * Use 1 Duncan in each nostril d* ATORVASTATIN 40 MG [...] LV dysfunction [I51.9] INVALID FOR* History of WY (myocardial infarction) [I25.2] INVALID FOR* Stenosis of [...] FOR* Status:Closed by CELI CORNELIUS on 06/12/17 [facility] CNOVon 05-29-2017 CNOV Office Visit (AGCARDWST) S JESSICATHANH ([id number]) 1935 MDate Time Provider Department05/29/17 1:30 PM [...] - metBeta isha for ASHD with prior [place] or prior LVEFANDlt;40 (NQF 0070) - N/ABeta [...] The indication for this is not clear tome.I advised him to continue his other medication. [...] with treatment plan.This note was generated using [employer] voice recognition system, and there may besome incorrect words, spellings, and punctuation that were not noted inchecking the note before saving.DIAGNOSIS FOR VISIT:ASHDHypertensionH ISTORY OF PRESENT ILLNESSThanh Coleman is a 81-year-old gentleman who is seen in follow-up for multiplecardiac issues, as noted above. He was previously a patient of Dr. Patel.He reports that he has been very active. He is shoveling snow. He denies chestdiscomfort. Exercise tolerance has been stable. He's had no orthopnea. Hedenies edema, syncope, palpitations, TIAs, amaurosis and claudication.He has developed some numbness in his toes. He has not discussed this withprimary care . He is not known to be diabetic.He reportedly had pacemaker evaluation done earlier this week at [place].ALLERGIES:ALLERG IESAllergen Reactions- Dust Other: See Comments- Grass Pollen Other: See Comments- Mold Spores Other: See CommentsCURRENT OUTPATIENT MEDICATIONS:amiodarone (PACERONE) 100 mg tablet Take 1 tablet by mouth once daily.lisinopril (ZESTRIL, PRINIVIL) 20 mg tablet TAKE ONE TABLET BY MOUTH ONCE DAILYKLOR-CON M10 10 mEq tablet TAKE ONE TABLET BY MOUTH ONCE DAILYfluticasone (FLONASE) 50 mcg/actuation nasal spray Use 1 Duncan in each nostrildaily at bedtime.atorvastatin (LIPITOR) 40 [...] ml/min 12/2015- COPD (chronic obstructive pulmonary disease) ([facility])- H/O right heart catheterization- High blood pressure- History of heart attack- Hypertriglyceridemia- Low HDL (under 40)- Neuropathy ([facility])- TB (pulmonary tuberculosis)- Thrombocytopenia ([facility])PAST SURGICAL HISTORYProcedure Laterality Date- ABD AORTIC ANEURYSM REPAIR- CORONARY STENT EA VESSEL 3-2008 x 2, drug eluting- ILIAC PRINTED CIRCUIT LAYOUT TAPER W/WO STENT- PACEMAKER DUAL CHAMBER TIER 0 [...] is no evidence ofischemia.Electronical ly Signed:Yoni Tapia MDFebruary 2017 2:03 [facility]:Jose Lyles MD 05/29/2017 2:03 PM SignedLIFESTYLE CHANGEA [...] programs in your area.Referring Provider: YONI TAPIA [[id number]]Allergies As of Date: 05/29/2017 Noted Allergy ReactionDUST [...] W INTERP (MED OFFICE) [ECG06] Order #: [id number] US ABD AORTA COMPLETE VAS LAB [[id number]] Order #: [id number] FUTURE ECHO [[id number]] Order #: [id number]: 1 FUTUREPrescriptions as of 05/29/2017 Sig: AMIODARONE 100 MG TABLET Take 1 tablet by mouth once d* LISINOPRIL 20 MG TABLET TAKE ONE TABLET BY MOUTH ONCE* KLOR-CON M10 MEQ TABLET,EXTEN* TAKE ONE TABLET BY MOUTH ONCE* FLUTICASONE 50 MCG/ACTUATION * Use 1 Duncan in each nostril d* ATORVASTATIN 40 MG [...] 05/29/2017 1:37 PM >> HUDSON HAGEN LPN [facility] May 29, 2017 1:37 PM Not takingProblem List As Of Date 05/29/2017 Noted Resolved Chronic rhinitis [J31.0] INVALID FOR* Cerumen impaction [H61.20] INVALID FOR* Chronic otitis externa [H60.60] INVALID FOR* Presence of drug coated stent in left circumfle*INVALID FOR* Asymptomatic LV dysfunction [I51.9] INVALID FOR* History of [place] (myocardial infarction) [I25.2] INVALID FOR* Stenosis of [...] the following areas and commit to making termite control technician changes. EAT A WHOLE FOOD, PLANT BASED [...] Status:Closed by YONI TAPIA MD on 05/29/17 [facility] PROGRESSon 05-29-2017 PROGRESS HNO ID: [id number]: Yoni Dunaway: (none)Author Type: PhysicianType: Progress NotesFiled: [...] - metBeta isha for ASHD with prior WY or prior LVEF<40 (NQF 0070) - N/ABeta isha for HF with prior LVEF<40 (NQF 0083) - N/AACE-I or ARB for ASHD with DM or prior LVEF<40 (NQF 0066) - metStatin therapy for ASHD or FHL or DM - metBMI documented and plan if >25 (NQF 0421) - lifestyle recommendation formTobacco use screening and referral (NQ 0028) - lifestyle recommendationformRecom mendation for whole [...] with treatment plan.This note was generated using [employer] voice recognition system, and theremay be some [...] pacemaker evaluation done earlier this week at [place].ALLERGIES:ALLERG IESAllergen Reactions- Dust Other: See Comments- Grass Pollen Other: See Comments- Mold Spores Other: See CommentsCURRENT OUTPATIENT MEDICATIONS:amiodarone (PACERONE) 100 mg tablet Take 1 tablet by mouth once daily.lisinopril (ZESTRIL, PRINIVIL) 20 mg tablet TAKE ONE TABLET BY MOUTH ONCEDAILYKLOR-CON M10 10 mEq tablet TAKE ONE TABLET BY MOUTH ONCE DAILYfluticasone (FLONASE) 50 mcg/actuation nasal spray Use 1 Duncan in eachnostril daily at bedtime.atorvastatin (LIPITOR) 40 [...] ml/min 12/2015- COPD (chronic obstructive pulmonary disease) ([facility])- H/O right heart catheterization- High blood pressure- History of heart attack- Hypertriglyceridemia- Low HDL (under 40)- Neuropathy ([facility])- TB (pulmonary tuberculosis)- Thrombocytopenia ([facility])PAST SURGICAL HISTORYProcedure Laterality Date- ABD AORTIC ANEURYSM REPAIR- CORONARY STENT EA VESSEL 3-2008 x 2, drug eluting- ILIAC PRINTED CIRCUIT LAYOUT TAPER W/WO STENT- PACEMAKER DUAL CHAMBER TIER 0 [...] evidenceof ischemia.Electronically Signed:Yoni Tapia MDFebruary 2017 2:03 PMCC:DO Trina Lyles [facility] OBSOLETEon 05-14-2017 OBSOLETE Refill (AGCARDWST) Nikita LOPEZTHANH ([id number]) 1935 MDate Time Provider Department05/14/17 YONI TAPIA AGCARDWST During your visit today, [...] daily. MEENA: No Authorizing Provider: YONI TAPIA MDAergies As of Date: 05/14/2017(No Known Allergies)Date Reviewed: [...] d* FLUTICASONE 50 MCG/ACTUATION * Use 1 Duncan in each nostril d* ATORVASTATIN 40 MG [...] LV dysfunction [I51.9] INVALID FOR* History of WY (myocardial infarction) [I25.2] INVALID FOR* Stenosis of [...] Status:Closed by HUDSON HAGEN LPN on 05/14/17 [facility] Sinus/Facial Boneon 04-29-19 Sinus/Facial Bone [facility] [address] [facility] [place], [place] [address]Nrnwk/Facial BoneMR#: [id number] Acct: [id number]: THANH COLEMAN Rep #: [id number]: 1935 M 81 From: Cedric Lee MDPCP: Boo Marina DO Status: REG CLIStudy: Sinus/Facial Bone Date of Exam: 04/29/17Exam# [id number] Ordering Dr: Turner Syed MDSTUDY: CT MAXILLOFACIAL [...] bilateralorbital contents are normal. ORDE R #: [id number] CT/Sinus/Facial BoneIMPRESSION:Sinusiti s as described above.Electronically Signed:Cedric Lee MD at 14:28 ESTTel [phone], Service support , ZU: Randell Syed MD; Boo Marina DO Child Support Investigator:Signed Normal [facility] No Panel Information [facility] Vital Signs Date Time Vital Sign Value Performing Clinician Facility 03-22-2024 11:35-0500 Body height 180.3 cm Eric Willoughby DPM Work Phone: [facility] 03-22-2024 11:35-0500 Body mass index (BMI) [Ratio] 30.68 kg/m2 Eric Willoughby DPM Work Phone: [facility] 03-22-2024 11:35-0500 Body weight 99.79 kg Eric Willoughby DPM Work Phone: [facility] 03-22-2024 11:35-0500 Respiratory rate 18 /min Eric Willoughby DPM Work Phone: [facility] 03-15-2024 10:43-0500 Body height 180.3 cm Eric Willoughby DPM Work Phone: [facility] 03-15-2024 10:43-0500 Body mass index (BMI) [Ratio] 30.68 kg/m2 Eric Willoughby DPM Work Phone: [facility] 03-15-2024 10:43-0500 Body weight 99.79 kg Eric Willoughby DPM Work Phone: [facility] 03-15-2024 10:43-0500 Respiratory rate 18 /min Eric Willoughby DPM Work Phone: [facility] 03-12-2024 16:13-0500 Body height 180.3 cm Eric Willoughby DPM Work Phone: [facility] 03-12-2024 16:13-0500 Body mass index (BMI) [Ratio] 30.68 kg/m2 Eric Willoughby DPM Work Phone: [facility] 03-12-2024 16:13-0500 Body weight 99.79 kg Eric Willoughby DPM Work Phone: [facility] 03-09-2024 14:55-0500 Body height 180.3 cm Pamela Silvestre DO Work Phone: [facility] 03-09-2024 14:55-0500 Body mass index (BMI) [Ratio] 30.68 kg/m2 Pamela Silvestre DO Work Phone: [facility] 03-09-2024 14:55-0500 Body weight 99.79 kg Pamela Silvestre DO Work Phone: [facility] 03-09-2024 14:55-0500 Diastolic blood pressure 76 mm[Hg] Pamela Silvestre DO Work Phone: [facility] 03-09-2024 14:55-0500 Heart rate 82 /min Pamela Silvestre DO Work Phone: [facility] 03-09-2024 14:55-0500 SaO2% (BldA) [Mass fraction] 91 % Pamela Silvestre DO Work Phone: [facility] 03-09-2024 14:55-0500 Systolic blood pressure 122 mm[Hg] Pamela Silvestre DO Work Phone: [facility] 02-16-2024 15:08-0400 Diastolic blood pressure 84 mm[Hg] Brady Kirnus [facility] 02-16-2024 15:08-0400 Heart rate 88 /min Brady Kirnus [facility] 02-16-2024 15:08-0400 Respiratory rate 16 /min Brady Kirnus [facility] 02-16-2024 15:08-0400 SaO2% (BldA) [Mass fraction] 96 % Brady Kirnus [facility] 02-16-2024 15:08-0400 Systolic blood pressure 126 mm[Hg] Brady Kirnus [facility] 02-16-2024 13:42-0400 Body height 177.8 cm Natalie Plummerr EXERCISE PLANNER Work Phone: [facility] 02-16-2024 13:42-0400 Body mass index (BMI) [Ratio] 30.42 kg/m2 Natalie Ysabelmor EXERCISE PLANNER Work Phone: [facility] 02-16-2024 13:42-0400 Body weight 96.16 kg Natalie Ysabelmor EXERCISE PLANNER Work Phone: [facility] 02-16-2024 13:42-0400 Diastolic blood pressure 70 mm[Hg] Natalie Ysabelmor EXERCISE PLANNER Work Phone: [facility] 02-16-2024 13:42-0400 Heart rate 80 /min Natalie Ysabelmor EXERCISE PLANNER Work Phone: [facility] 02-16-2024 13:42-0400 Systolic blood pressure 130 mm[Hg] Natalie Ysabelmor EXERCISE PLANNER Work Phone: [facility] 02-05-2024 15:12-0400 Blood Pressure Location Nanci Gudimella [facility] 02-05-2024 15:12-0400 Diastolic blood pressure 74 mm[Hg] Nanci Gudimella [facility] 02-05-2024 15:12-0400 Heart rate 62 /min Nanci Gudimella [facility] 02-05-2024 15:12-0400 SaO2% (BldA) [Mass fraction] 97 % Nanci Gudimella [facility] 02-05-2024 15:12-0400 Systolic blood pressure 122 mm[Hg] Nanci Gudimella [facility] 01-27-2024 17:29-0400 Hourly Rounding Lavell Paster [facility] 01-27-2024 17:29-0400 Promise to Return Lavell Paster [facility] 01-27-2024 16:06-0400 Hourly Rounding Lavell Paster [facility] 01-27-2024 16:06-0400 Promise to Return Lavell Paster [facility] 01-27-2024 15:21-0400 Hourly Rounding Lavell Paster [facility] 01-27-2024 15:21-0400 Promise to Return Lavell Paster [facility] 01-27-2024 11:51-0400 Heart rate 75 /min Lavell Paster [facility] 01-27-2024 11:51-0400 SaO2% (BldA) [Mass fraction] 91 % Lavell Paster [facility] 01-27-2024 11:51-0400 Diastolic blood pressure 80 mm[Hg] Lavell Paster [facility] 01-27-2024 11:51-0400 Mean blood pressure 103 mm[Hg] Lavell Paster [facility] 01-27-2024 11:51-0400 Systolic blood pressure 149 mm[Hg] Lavell Paster [facility] 01-27-2024 11:51-0400 Body temperature 97.52 [degF] Lavell Paster [facility] 01-27-2024 08:43-0400 Diastolic blood pressure 72 mm[Hg] Lavell Paster [facility] 01-27-2024 08:43-0400 Heart rate 88 /min Lavell Paster [facility] 01-27-2024 08:43-0400 Systolic blood pressure 113 mm[Hg] Lavell Paster [facility] 01-27-2024 07:38-0400 Heart rate 59 /min Lavell Paster [facility] 01-27-2024 07:38-0400 SaO2% (BldA) [Mass fraction] 90 % Lavell Paster [facility] 01-27-2024 07:37-0400 Body temperature 97.34 [degF] Lavell Paster [facility] 01-27-2024 07:37-0400 Diastolic blood pressure 72 mm[Hg] Lavell Paster [facility] 01-27-2024 07:37-0400 Mean blood pressure 86 mm[Hg] Lavell Paster [facility] 01-27-2024 07:37-0400 Systolic blood pressure 113 mm[Hg] Lavell Paster [facility] 01-26-2024 23:56-0400 Body temperature 98.24 [degF] Lavell Paster [facility] 01-26-2024 23:56-0400 Heart rate 60 /min Lavell Paster [facility] 01-26-2024 23:56-0400 Respiratory rate 16 /min Lavell Paster [facility] 01-26-2024 23:56-0400 SaO2% (BldA) [Mass fraction] 93 % Lavell Paster [facility] 01-26-2024 20:35-0400 Heart rate 90 /min Lavell Paster [facility] 01-26-2024 19:32-0400 Respiratory rate 16 /min Lavell Paster [facility] 01-26-2024 19:32-0400 Mean blood pressure 92 mm[Hg] Lavell Paster [facility] 01-26-2024 19:32-0400 Body temperature 97.52 [degF] Lavell Paster [facility] 01-26-2024 16:00-0400 Respiratory rate 18 /min Lavell Paster [facility] 01-26-2024 09:03-0400 Heart rate 87 /min Lavell Paster [facility] 01-26-2024 08:05-0400 Body temperature 97.34 [degF] Lavell Paster [facility] 01-26-2024 03:49-0400 Blood Pressure Location Lavell Paster [facility] 01-26-2024 03:49-0400 Body temperature 98.24 [degF] Lavell Paster [facility] 01-26-2024 03:49-0400 Mean blood pressure 83 mm[Hg] Lavell Hopkinsr [facility] 01-25-2024 23:54-0400 Blood Pressure Location Lavell Siegel [facility] 01-25-2024 23:54-0400 Mean blood pressure 92 mm[Hg] Lavell Hopkinsr [facility] 01-25-2024 14:00-0400 Mean blood pressure 85 mm[Hg] Lavell Hopkinsr [facility] 01-23-2024 13:15-0400 Heart rate 112 /min Lavell Siegel [facility] 01-23-2024 10:03-0400 Heart rate 119 /min Lavell Siegel [facility] 01-21-2024 13:39-0400 Blood Pressure Location Elijah Turner [facility] 01-21-2024 13:39-0400 Diastolic blood pressure 80 mm[Hg] Elijah Turner [facility] 01-21-2024 13:39-0400 Heart rate 112 /min Elijah Turner [facility] 01-21-2024 13:39-0400 Respiratory rate 20 /min Elijah Turner [facility] 01-21-2024 13:39-0400 SaO2% (BldA) [Mass fraction] 94 % Elijah Turner [facility] 01-21-2024 13:39-0400 Systolic blood pressure 130 mm[Hg] Elijah Turner [facility] 11-13-2023 16:00-0400 Diastolic blood pressure 52 mm[Hg] Elijah Turner [facility] 11-13-2023 16:00-0400 Mean blood pressure 94 mm[Hg] Elijah Turner [facility] 11-13-2023 16:00-0400 Systolic blood pressure 178 mm[Hg] Elijah Turner [facility] 11-13-2023 15:48-0400 Blood Pressure Location Elijah Turner [facility] 11-13-2023 15:48-0400 Diastolic blood pressure 80 mm[Hg] Elijah Turner [facility] 11-13-2023 15:48-0400 Heart rate 76 /min Elijah Turner [facility] 11-13-2023 15:48-0400 Respiratory rate 18 /min Elijah Turner [facility] 11-13-2023 15:48-0400 SaO2% (BldA) [Mass fraction] 94 % Elijah Turner [facility] 11-13-2023 15:48-0400 Systolic blood pressure 169 mm[Hg] Elijah Turner [facility] 09-11-2023 15:10-0400 Blood Pressure Location Nanci Gudimella [facility] 09-11-2023 15:10-0400 Body temperature 98.78 [degF] Nanci Gudimella [facility] 09-11-2023 15:10-0400 Diastolic blood pressure 82 mm[Hg] Nanci Gudimella [facility] 09-11-2023 15:10-0400 Heart rate 63 /min Nanci Gudimella [facility] 09-11-2023 15:10-0400 Respiratory rate 15 /min Nanci Gudimella [facility] 09-11-2023 15:10-0400 SaO2% (BldA) [Mass fraction] 92 % Nanci Gudimella [facility] 09-11-2023 15:10-0400 Systolic blood pressure 138 mm[Hg] Nanci Gudimella [facility] 07-07-2023 15:43-0400 Diastolic blood pressure 78 mm[Hg] Johnny VILLEDA [facility] 07-07-2023 15:43-0400 Heart rate 86 /min Johnny VILLEDA [facility] 07-07-2023 15:43-0400 SaO2% (BldA) [Mass fraction] 97 % Johnny VILLEDA [facility] 07-07-2023 15:43-0400 Systolic blood pressure 122 mm[Hg] Johnny VILLEDA [facility] 04-10-2023 13:40-0500 Blood Pressure Location Johnny VILLEDA [facility] 04-10-2023 13:40-0500 Diastolic blood pressure 50 mm[Hg] Johnny VILLEDA [facility] 04-10-2023 13:40-0500 Heart rate 100 /min Johnny VILLEDA [facility] 04-10-2023 13:40-0500 SaO2% (BldA) [Mass fraction] 100 % Johnny VILLEDA [facility] 04-10-2023 13:40-0500 Systolic blood pressure 89 mm[Hg] Johnny VILLEDA [facility] 03-14-2023 09:33-0500 Blood Pressure Location Nanci Gudimella [facility] 03-14-2023 09:33-0500 Diastolic blood pressure 60 mm[Hg] Nanci Gudimella [facility] 03-14-2023 09:33-0500 Heart rate 97 /min Nanci Gudimella [facility] 03-14-2023 09:33-0500 SaO2% (BldA) [Mass fraction] 98 % Nanci Gudimella [facility] 03-14-2023 09:33-0500 Systolic blood pressure 160 mm[Hg] Nanci Gudimella [facility] 03-11-2023 12:52-0500 Blood Pressure Location Carlosbartolo TurnerMatthew [facility] 03-11-2023 12:52-0500 Body temperature 97.88 [degF] Carlosbartolo TurnerMatthew [facility] 03-11-2023 12:52-0500 Diastolic blood pressure 51 mm[Hg] Carlos Matthew [facility] 03-11-2023 12:52-0500 Heart rate 69 /min Carlosbartolo TurnerMatthew [facility] 03-11-2023 12:52-0500 Systolic blood pressure 117 mm[Hg] Carlos Matthew [facility] 02-11-2023 15:39-0400 Diastolic blood pressure 76 mm[Hg] Johnny VILLEDA [facility] 02-11-2023 15:39-0400 Heart rate 105 /min Johnny VILLEDA [facility] 02-11-2023 15:39-0400 SaO2% (BldA) [Mass fraction] 98 % Johnny VILLEDA [facility] 02-11-2023 15:39-0400 Systolic blood pressure 126 mm[Hg] Johnny VILLEDA [facility] 01-03-2023 13:18-0400 Diastolic blood pressure 64 mm[Hg] Johnny VILLEDA [facility] 01-03-2023 13:18-0400 Heart rate 88 /min Johnny VILLEDA [facility] 01-03-2023 13:18-0400 SaO2% (BldA) [Mass fraction] 97 % Johnny VILLEDA [facility] 01-03-2023 13:18-0400 Systolic blood pressure 126 mm[Hg] Johnny VILLEDA [facility] 12-24-2022 13:56-0400 Blood Pressure Location Nanci Gudimella [facility] 12-24-2022 13:56-0400 Diastolic blood pressure 84 mm[Hg] Nanci Gudimella [facility] 12-24-2022 13:56-0400 Heart rate 68 /min Nanci Gudimella [facility] 12-24-2022 13:56-0400 SaO2% (BldA) [Mass fraction] 97 % Nanci Gudimella [facility] 12-24-2022 13:56-0400 Systolic blood pressure 120 mm[Hg] Nanci Gudimella [facility] 12-16-2022 10:25-0400 Body height 180.3 cm Luke Sun DO Work Phone: [place] [address]-28-2023 10:25-0400 Body weight 86.73 kg Luke Sun DO Work Phone: [facility] 12-16-2022 10:25-0400 Diastolic blood pressure 78 mm[Hg] Luke Sun DO Work Phone: [facility] 12-16-2022 10:25-0400 Heart rate 91 /min Luke Sun DO Work Phone: [facility] 12-16-2022 10:25-0400 Respiratory rate 18 /min Luke Sun DO Work Phone: [facility] 12-16-2022 10:25-0400 SaO2% (BldA) [Mass fraction] 99 % Luke Sun DO Work Phone: [facility] 12-16-2022 10:25-0400 Systolic blood pressure 120 mm[Hg] Luke Sun DO Work Phone: [facility] 12-12-2022 13:20-0400 Body weight 87.82 kg Zoraida Nvaeen DESIGN SALES CONSULTANT.RETAIL WAREHOUSE ASSOCIATE Work Phone: [facility] 12-12-2022 13:20-0400 Diastolic blood pressure 80 mm[Hg] Zoraida Naveen DESIGN SALES CONSULTANT.RETAIL WAREHOUSE ASSOCIATE Work Phone: [facility] 12-12-2022 13:20-0400 Heart rate 90 /min Zoraida Naveen DESIGN SALES CONSULTANT.RETAIL WAREHOUSE ASSOCIATE Work Phone: [facility] 12-12-2022 13:20-0400 Respiratory rate 20 /min Zoraida Naveen DESIGN SALES CONSULTANT.RETAIL WAREHOUSE ASSOCIATE Work Phone: [facility] 12-12-2022 13:20-0400 SaO2% (BldA) [Mass fraction] 97 % Zoraida Naveen DESIGN SALES CONSULTANT.RETAIL WAREHOUSE ASSOCIATE Work Phone: [facility] 12-12-2022 13:20-0400 Systolic blood pressure 128 mm[Hg] Zoraida Naveen DESIGN SALES CONSULTANT.RETAIL WAREHOUSE ASSOCIATE Work Phone: [facility] 03-20-2023 13:27-0400 Body weight 94.17 kg Ekta Mandujano DESIGN SALES CONSULTANT.RETAIL WAREHOUSE ASSOCIATE Work Phone: [facility] 07-08-2022 13:27-0400 Diastolic blood pressure 68 mm[Hg] Ekta Mandujano DESIGN SALES CONSULTANT.RETAIL WAREHOUSE ASSOCIATE Work Phone: [facility] 07-08-2022 13:27-0400 Heart rate 80 /min Ekta Mandujano DESIGN SALES CONSULTANT.RETAIL WAREHOUSE ASSOCIATE Work Phone: [facility] 07-08-2022 13:27-0400 Respiratory rate 14 /min Ekta Mandujano DESIGN SALES CONSULTANT.RETAIL WAREHOUSE ASSOCIATE Work Phone: [facility] 07-08-2022 13:27-0400 Systolic blood pressure 120 mm[Hg] Ekta Mandujano DESIGN SALES CONSULTANT.RETAIL WAREHOUSE ASSOCIATE Work Phone: [facility] 04-24-2022 09:03-0500 Body temperature 97.88 [degF] KAREEM SHEN MD [address] 04-24-2022 09:03-0500 Diastolic Blood Pressure Non-Invasive 66 1 KAREEM SHEN MD [address] 04-24-2022 09:03-0500 Heart rate 66 /min KAREEM SHEN MD [address] 04-24-2022 09:03-0500 Respiratory rate 18 /min KAREEM SHEN MD [address] 04-24-2022 09:03-0500 Systolic Blood Pressure Non-Invasive 120 1 KAREEM SHEN MD [facility] 04-24-2022 03:30-0500 Body temperature 98.06 [degF] KAREEM SHEN MD [address] 04-24-2022 03:30-0500 Diastolic Blood Pressure Non-Invasive 61 1 KAREEM SHEN MD [address] 04-24-2022 03:30-0500 Heart rate 65 /min KAREEM SHEN MD [facility] 04-24-2022 03:30-0500 Reason For Taking VItal Signs KAREEM SHEN MD [address] [place] [address] 04-24-2022 03:30-0500 Respiratory rate 16 /min KAREEM SHEN MD [address] [place] [address] 04-24-2022 03:30-0500 Systolic Blood Pressure Non-Invasive 110 1 KAREEM SHEN MD [address] [place] [address] 04-24-2022 02:35-0500 Heart rate 64 /min KAREEM SHEN MD [address] [place] [address] 04-24-2022 02:35-0500 Respiratory rate 16 /min KAREEM SHEN MD [address] [place] [address] 04-23-2022 23:05-0500 Heart rate 60 /min KAREEM SHEN MD [address] [place] [address] 04-23-2022 21:31-0500 Heart rate 86 /min KAREEM SHEN MD [address] [place] [address] 04-23-2022 21:26-0500 Diastolic Blood Pressure Non-Invasive 70 1 KAREEM SHEN MD [address] [place] [address] 04-23-2022 21:26-0500 Heart rate 83 /min KAREEM SHEN MD [address] [place] [address] 04-23-2022 21:26-0500 Systolic Blood Pressure Non-Invasive 124 1 KAREEM SHEN MD [address] [place] [address] 04-23-2022 19:30-0500 Body temperature 97.52 [degF] KAREEM SHEN MD [address] [place] [address] 04-23-2022 19:30-0500 Reason For Taking VItal Signs KAREEM SHEN MD [address] [place] [address] 04-23-2022 14:15-0500 Body temperature 97.34 [degF] KAREEM SHEN MD [address] [place] [address] 04-23-2022 14:05-0500 Respiratory Rate - Anes 0 br/min KAREEM SHEN MD [address] [place] [address] 04-23-2022 14:00-0500 Respiratory Rate - Anes 11 br/min KAREEM SHEN MD [address] [place] [address] 04-23-2022 13:55-0500 Respiratory Rate - Anes 31 br/min KAREEM SHEN MD [address] [place] [address] 04-23-2022 13:40-0500 Body temperature 96.24 [degF] KAREEM SHEN MD [address] [place] [address] 04-23-2022 13:35-0500 Body temperature 96.69 [degF] KAREEM SHEN MD [address] [place] [address] 04-23-2022 13:30-0500 Body temperature 96.53 [degF] KAREEM SHEN MD [address] [place] [address] 04-23-2022 09:28-0500 Blood Pressure Cuff Size KAREEM SHEN MD [address] [place] [address] 04-23-2022 09:28-0500 Blood Pressure Location KAREEM SHEN MD [address] [place] [address] 04-23-2022 09:28-0500 Blood Pressure Method KAREEM SHEN MD [address] [place] [address] 04-23-2022 09:28-0500 Body height 180 cm KAREEM SHEN MD [address] [place] [address] 04-23-2022 09:28-0500 Body temperature 97.88 [degF] KAREEM SHEN MD [address] [place] [address] 04-23-2022 09:28-0500 Body weight 97.3 kg KAREEM SHEN MD [address] [place] [address] 04-23-2022 09:28-0500 Body weight 30.03 kg/m2 KAREEM SHEN MD [address] [place] [address] 04-23-2022 09:28-0500 Heart rate 93 /min KAREEM SHEN MD [address] [place] [address] 01-07-2022 15:04-0400 Body temperature 96.8 [degF] Boo Marina DO Work Phone: [facility] 01-07-2022 15:04-0400 Body weight 96.16 kg Boo Marina DO Work Phone: [facility] 01-07-2022 15:04-0400 Diastolic blood pressure 60 mm[Hg] Boo Marina DO Work Phone: [facility] 01-07-2022 15:04-0400 Heart rate 64 /min Boo Marina DO Work Phone: [facility] 01-07-2022 15:04-0400 Respiratory rate 24 /min Boo Marina DO Work Phone: [facility] 01-07-2022 15:04-0400 Systolic blood pressure 100 mm[Hg] Boo Marina DO Work Phone: [facility] 12-05-2021 10:03-0400 Heart rate 62 /min KAREEM SHEN MD [facility] 12-05-2021 09:45-0400 Heart rate 62 /min KAREEM SHEN MD [address] 12-05-2021 09:45-0400 Reason For Taking VItal Signs KAREEM SHEN MD [facility] 12-05-2021 04:30-0400 Body temperature 96.8 [degF] KAREEM SHEN MD [facility] 12-05-2021 04:30-0400 Diastolic Blood Pressure NBP 66 1 KAREEM SHEN MD [facility] 12-05-2021 04:30-0400 Heart rate 61 /min KAREEM SHEN MD [facility] 12-05-2021 04:30-0400 Reason For Taking VItal Signs KAREEM SHEN MD [facility] 12-05-2021 04:30-0400 Respiratory rate 18 /min KAREEM SHEN MD [facility] 12-05-2021 04:30-0400 Systolic Blood Pressure NBP 144 1 KAREEM SHEN MD [address] [place] [address] 12-05-2021 03:40-0400 Heart rate 60 /min KAREEM SHEN MD [address] [place] [address] 12-05-2021 03:40-0400 Reason For Taking VItal Signs KAREEM SHEN MD [address] [place] [address] 12-04-2021 19:37-0400 Body temperature 97.52 [degF] KAREEM SHEN MD [address] [place] [address] 12-04-2021 19:37-0400 Diastolic Blood Pressure NBP 64 1 KAREEM SHEN MD [address] [place] [address] 12-04-2021 19:37-0400 Respiratory rate 18 /min KAREEM SHEN MD [address] [place] [address] 12-04-2021 19:37-0400 Systolic Blood Pressure NBP 113 1 KAREEM SHEN MD [address] [place] [address] 12-04-2021 17:50-0400 Heart rate 60 /min KAREEM SHEN MD [address] [place] [address] 12-04-2021 17:13-0400 Heart rate 62 /min KAREEM SHEN MD [address] [place] [address] 12-04-2021 17:11-0400 Diastolic blood pressure 72 mm[Hg] KAREEM SHEN MD [address] [place] [address] 12-04-2021 17:11-0400 Mean blood pressure 94 mm[Hg] KAREEM SHEN MD [address] [place] [address] 12-04-2021 17:11-0400 Systolic blood pressure 137 mm[Hg] KAREEM SHEN MD [address] [place] [address] 12-04-2021 12:45-0400 diastolic 66 mm[Hg] KAREEM SHEN MD [address] [place] [address] 12-04-2021 12:45-0400 systolic 131 mm[Hg] KAREEM SHEN MD [address] [place] [address] 12-04-2021 12:26-0400 diastolic 66 mm[Hg] KAREEM SHEN MD [address] [place] [address] 12-04-2021 12:26-0400 Respiratory rate 16 /min KAREEM SHEN MD [address] [place] [address] 12-04-2021 12:26-0400 systolic 129 mm[Hg] KAREEM SHEN MD [address] [place] [address] 12-04-2021 12:15-0400 diastolic 72 mm[Hg] KAREEM SHEN MD [address] [place] [address] 12-04-2021 12:15-0400 systolic 130 mm[Hg] KAREEM SHEN MD [address] [place] [address] 12-04-2021 07:42-0400 Body height 182.9 cm KAREEM SHEN MD [address] [place] [address] 12-04-2021 07:42-0400 Body temperature 98.06 [degF] KAREEM SHEN MD [address] [place] [address] 12-04-2021 07:42-0400 Body weight 95.1 kg KAREEM SHEN MD [address] [place] [address] 09-28-2021 14:06-0400 Body weight 96.16 kg Zoraida Russoman DESIGN SALES CONSULTANT.RETAIL WAREHOUSE ASSOCIATE Work Phone: [facility] 09-28-2021 14:06-0400 Diastolic blood pressure 68 mm[Hg] Zoraida Naveen DESIGN SALES CONSULTANT.RETAIL WAREHOUSE ASSOCIATE Work Phone: [facility] 09-28-2021 14:06-0400 Heart rate 79 /min Zoraida Naveen DESIGN SALES CONSULTANT.RETAIL WAREHOUSE ASSOCIATE Work Phone: [facility] 09-28-2021 14:06-0400 Respiratory rate 16 /min Zoraida Naveen DESIGN SALES CONSULTANT.RETAIL WAREHOUSE ASSOCIATE Work Phone: [facility] 09-28-2021 14:06-0400 SaO2% (BldA) [Mass fraction] 95 % Zoraida Naveen DESIGN SALES CONSULTANT.RETAIL WAREHOUSE ASSOCIATE Work Phone: [facility] 09-28-2021 14:06-0400 Systolic blood pressure 102 mm[Hg] Zoraida Hodge RIDGE.RETAIL WAREHOUSE ASSOCIATE Work Phone: [facility] Encounters Encounter Date Encounter Type Care Provider Facility Start: 03-22-2024 End: 03-22-2024 Bamboo flowsheet Eric Willoughby DPM Work Phone: [facility] Start: 03-22-2024 End: 03-22-2024 Bamboo flowsheet Eric Willoughby DPM Work Phone: [facility] Start: 03-22-2024 End: 03-22-2024 Postop follow up visit related to original px Eric Willoughby DPM Work Phone: [facility] Comment on above: Acute gout of left f oot, unspecified cause (Primary Dx); Hallux rigidus of right foot; Hallux rigidus of left foot; Other polyneuropathy Start: 03-22-2024 End: 03-22-2024 ambulatory ERIC WILLOUGHBY Not Available Start: 03-15-2024 End: 03-15-2024 Office outpatient visit 15 minutes Eric Willoughby DPM Work Phone: [facility] Comment on above: Acute gout of left f oot, unspecified cause (Primary Dx); Abscess, toe, left; Capsulitis of metatarsophalangeal (MTP) joint of right foot; Onychocryptosis; Hallux rigidus of right foot; Hallux rigidus of left foot; Capsulitis of metatarsophalangeal (MTP) joint of left foot; Other polyneuropathy Start: 03-15-2024 End: 03-15-2024 ambulatory ERIC WILLOUGHBY Not Available Start: 03-12-2024 End: 03-12-2024 Office outpatient visit 15 minutes Eric Willoughby DPM Work Phone: [facility] Comment on above: Capsulitis of metata rsophalangeal (MTP) joint of right foot (Primary Dx); Hallux rigidus of left foot; Hallux rigidus of right foot; Capsulitis of metatarsophalangeal (MTP) joint of left foot; Other polyneuropathy; Abscess, toe, left; Onychocryptosis; Toe pain, left Start: 03-12-2024 End: 03-12-2024 ambulatory ERIC Lesli INDY Not Available Start: 03-12-2024 End: 03-12-2024 Bamboo flowsheet Ericnikita Willoughby DPM Work Phone: [facility] Start: 03-12-2024 End: 03-12-2024 Bamboo flowsheet Eric Lesli Willoughby DPM Work Phone: [facility] Start: 03-09-2024 End: 03-09-2024 Office outpatient visit 25 minutes Pam[facility]vestre DO [facility] Comment on above: Cerebral infarction, unspecified mechanism (CMS/HCC) (Primary Dx); Alzheimer disease (CMS/HCC); Atrial fibrillation, unspecified type (CMS/HCC); Inadequate sleep hygiene; Peripheral neuropathy, idiopathic; Weakness; Debility Start: 03-09-2024 End: 03-09-2024 ambulatory PAMELA SILVESTRE Not Available Start: 03-09-2024 End: 03-09-2024 Bamboo flowsheet Pamela Silvestre DO Work [facility] Start: 03-09-2024 End: 03-09-2024 Bamboo flowsheet Pamela [facility]vest[facility] DO [facility] Start: 03-01-2024 End: 03-01-2024 ambulatory PAMELA SILVESTRE Not Available Start: 03-01-2024 End: 03-01-2024 Patient encounter procedure Pamela [facility]vestre DO [facility] Comment on above: Idiopathic periphera l neuropathy (Primary Dx); Paresthesias Start: 03-01-2024 End: 03-01-2024 Bamboo flowsheet Pamela Silvestre DO [facility] Start: 03-01-2024 End: 03-01-2024 Bamboo flowsheet Pamela Silvestre DO Work Phone: [facility] Start: 02-16-2024 End: 02-16-2024 ambulatory MD Brady Marquez Facility:[facility] Start: 02-16-2024 End: 02-16-2024 Patient encounter procedure Brady Marquez [facility] Start: 02-16-2024 End: 02-16-2024 Bamboo flowsheet Natalie Plummerr EXERCISE PLANNER Work Phone: [facility] Start: 02-16-2024 End: 02-16-2024 Bamboo flowsheet Natalie Ysabelmor EXERCISE PLANNER Work Phone: [facility] Start: 02-16-2024 End: 02-16-2024 Office outpatient visit 40 minutes Natalie Del Rio EXERCISE PLANNER Work Phone: [facility] Comment on above: Paresthesias (Primar y Dx); Memory loss; Atrial fibrillation, unspecified type (CMS/HCC); Cerebral infarction, unspecified mechanism (CMS/HCC) Start: 02-16-2024 End: 02-16-2024 ambulatory NATALIE DEL RIO Not Available Start: 02-05-2024 End: 02-05-2024 ambulatory Nanci Jarvis Facility:[facility] Start: 02-05-2024 End: 02-05-2024 Patient encounter procedure Nanci Jarvis [facility] [place] Start: 01-28-2024 End: 03-03-2024 ambulatory Nanci Jarvis Facility:CD:[id number] Start: 01-23-2024 ambulatory MD Nanci Jarvis Facility:[facility] Start: 01-23-2024 End: 01-27-2024 Evaluation and management of inpatient Lavell Andre Siegel Facility:[facility] Start: 01-23-2024 Emergency department patient visit Stefan Sirisha Facility:[facility] Start: 01-23-2024 End: 01-27-2024 Evaluation and management of inpatient Lavell Andre Siegel [facility] Start: 01-21-2024 End: 01-21-2024 ambulatory WILLIAM Turner Facility:[facility] Start: 01-21-2024 End: 01-21-2024 Patient encounter procedure Elijah Turner [facility] Start: 01-19-2024 End: 01-26-2024 ambulatory MD Nanci Jarvis Facility:CD:[id number] Start: 01-06-2024 End: 01-06-2024 Bamboo flowsheet Zahra Arenas MD Work Phone: [facility] Start: 01-06-2024 End: 01-06-2024 Bamboo flowsheet Zahra Arenas MD Work Phone: [facility] Start: 01-06-2024 End: 01-06-2024 ambulatory ZAHRA ARENAS Not Available Start: 11-17-2023 End: 11-17-2023 ambulatory NATALIE DEL RIO Not Available Start: 11-13-2023 End: 11-13-2023 ambulatory WILLIAM Turner Facility:[facility] Start: 11-13-2023 End: 11-13-2023 Patient encounter procedure Elijah Turner [facility] Start: 10-30-2023 End: 10-30-2023 ambulatory MD Johnny VILLEDA Facility:[facility] Start: 10-30-2023 End: 10-30-2023 Patient encounter procedure Lavell Winters [facility] Start: 09-11-2023 End: 09-11-2023 ambulatory MD Nanci Jarvis Facility:[facility] Start: 09-11-2023 End: 09-11-2023 Patient encounter procedure Nanci Jarvis [facility] Start: 09-10-2023 End: 09-10-2023 ambulatory ERIC WILLOUGHBY Not Available Start: 09-04-2023 End: 09-04-2023 ambulatory NATALIE DEL RIO Not Available Start: 08-27-2023 End: 08-27-2023 ambulatory ERIC Ballesteros BROWN Not Available Start: 08-13-2023 End: 08-13-2023 ambulatory ERIC Ballesteros BROWN Not Available Start: 07-22-2023 End: 07-22-2023 ambulatory ERIC Ballesteros BROWN Not Available Start: 07-07-2023 End: 07-07-2023 ambulatory MD Johnny VILLEDA Facility:[facility] Start: 07-07-2023 End: 07-07-2023 Patient encounter procedure Johnny VILLEDA [facility] Start: 05-01-2023 End: 05-01-2023 ambulatory MD Johnny VILLEDA Facility:[facility] Start: 04-10-2023 End: 04-10-2023 ambulatory MD Johnny VILLEDA Facility:[facility] Start: 04-10-2023 End: 04-10-2023 Patient encounter procedure Johnny VILLEDA [facility] Start: 03-27-2023 End: 03-27-2023 ambulatory MD Johnny VILLEDA Facility:[facility] Start: 03-27-2023 End: 03-27-2023 Patient encounter procedure Johnny VILLEDA [facility] Start: 03-14-2023 End: 03-14-2023 ambulatory MD Nanci Jarvis Facility:[facility] Start: 03-14-2023 End: 03-14-2023 Patient encounter procedure Nanci Jarvis [facility] Start: 03-12-2023 ambulatory MD Johnny VILLEDA [facility] ty:[facility] Start: 03-11-2023 End: 03-11-2023 ambulatory [facility] Start: 03-11-2023 End: 03-11-2023 Patient encounter procedure Carlos Castro [facility] Start: 03-07-2023 End: 03-07-2023 ambulatory MD Johnny VILLEDA Facility:[facility] Start: 03-07-2023 End: 03-07-2023 Patient encounter procedure Johnny VILLEDA [facility] Start: 02-27-2023 ambulatory Carlos Castro Lun[place] ty:[place] Start: 02-26-2023 End: 02-26-2023 ambulatory MD Nanci Jarvis Facility:[facility] Start: 02-26-2023 End: 02-26-2023 Patient encounter procedure Nanci Judimelnikolas [facility] Start: 02-17-2023 ambulatory MD Johnny Colon ty:[facility] Jhon[facility] Start: 02-11-2023 End: 02-11-2023 Patient encounter procedure Johnny VILLEDA [facility] Start: 01-14-2023 Telephone encounter Boo armstrong DO Work Phone: [facility] Start: 01-03-2023 End: 01-03-2023 Patient encounter procedure Johnny VILLEDA [facility] Start: 12-24-2022 End: 12-24-2022 [facility] Start: 12-18-2022 ambulatory Femi cleary RN [facility] Start: 12-18-2022 Follow-up encounter Femi England RN Stage Director Management Comment on above: Transition Of Care ( TCM Follow-up day 8) Start: 12-16-2022 End: 12-16-2022 Evaluation and management of inpatient LUKE SUN Facility:[id number] Start: 12-16-2022 End: 12-16-2022 Office outpatient new 60 minutes Luke Sun DO Work Phone: [facility] Comment on above: 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) (Primary Dx); Pain and swelling of toe of right foot; Chronic combined systolic and diastolic congestive heart failure (HCC); Stage 3b chronic kidney disease (HCC) Start: 12-12-2022 End: 12-13-2022 ambulatory BOO MARINA Facility:[facility] Start: 12-12-2022 Telephone encounter Chery Marte Start: 12-12-2022 End: 12-12-2022 Patient encounter procedure Zoraida Hodge APRN.RETAIL WAREHOUSE ASSOCIATE Work Phone: [facility] [place] Comment on above: Memory changes (Prim noel Dx); Age-related physical debility; Ischemic stroke (HCC); Forgetfulness; DANIEL (generalized anxiety disorder); Mental disability; Hypertriglyceridemia Start: 12-11-2022 Patient Outreach Femi guillory RN Stage Director Management Comment on above: Transition Of Care ( [facility] d/ 12/10/22) Start: 12-10-2022 End: 12-10-2022 Evaluation and management of inpatient TRACEE ESCALONA Facility:[id number] Start: 12-09-2022 Telephone encounter Boo armstrong DO Work Phone: [facility] [place] Comment on above: [facility] 5 Main follow up Start: 12-06-2022 Evaluation and manag ement of inpatient COLBY Vega WAYNE Facility:[id number] Start: 12-05-2022 End: 12-06-2022 Emergency department patient visit BOO PENA [facility] Start: 12-05-2022 Telephone encounter Boo L G arrison DO Work Phone: [facility] [place] Comment on above: Patient Update Start: 12-03-2022 Refill Boo Shipley son DO Work Phone: [facility] [place] Comment on above: Refill Request Start: 10-21-2022 Telephone encounter Zoraida Cohen DESIGN SALES CONSULTANT.RETAIL WAREHOUSE ASSOCIATE Work Phone: [facility] [place] Comment on above: Results Start: 10-18-2022 End: 10-19-2022 ambulatory BOO L MARINA Facility:[facility] Start: 10-17-2022 Telephone encounter Boo Nuñez arrison DO Work Phone: [facility] [place] Comment on above: Results Start: 10-09-2022 Refill Boo Shipley son DO Work Phone: [facility] [place] Comment on above: Refill Request Start: 10-08-2022 End: 10-09-2022 ambulatory BOO L MARINA Facility:[facility] Start: 10-08-2022 End: 10-08-2022 ambulatory BOO L MARINA Facility:[facility] Start: 10-08-2022 Telephone encounter [facility] Provider Tiffany salamancaar Heather Comment on above: Appointment (/) Start: 09-20-2022 Telephone encounter Boo Hernandez G arrison DO Work Phone: [facility] [place] Comment on above: Patient Update Start: 09-02-2022 Telephone encounter Boo Hernandze G arrison DO Work Phone: [facility] [place] Comment on above: Fax Last OV note Start: 08-30-2022 Telephone encounter Boo David G arrison DO Work Phone: [facility] [place] Comment on above: Request Start: 08-30-2022 End: 09-04-2022 ambulatory BOO MARINA DO Facility:A Start: 08-29-2022 End: 08-29-2022 Emergency department patient visit SATNAM MADRID [facility] Start: 08-24-2022 End: 08-24-2022 Emergency department patient visit BOO PENA [facility] Start: 08-08-2022 End: 08-09-2022 ambulatory CLEM PILLAI [facility] Start: 08-06-2022 End: 08-06-2022 ambulatory JUAN CARLOS CUADRA Facility:[facility] Start: 07-23-2022 Telephone encounter Zoraida Hoffmann hawaalicia RIDGE.RETAIL WAREHOUSE ASSOCIATE Work Phone: [facility] [place] Comment on above: Results Start: 07-22-2022 End: 07-23-2022 ambulatory EKTA MANDUJANO Facility:[facility] Start: 07-08-2022 End: 07-09-2022 ambulatory EKTA MANDUJANO Facility:[facility] Start: 07-08-2022 End: 07-08-2022 Patient encounter procedure Ekta Mandujano DESIGN SALES CONSULTANT.RETAIL WAREHOUSE ASSOCIATE Work Phone: [facility] [place] Comment on above: Essential hypertensi on (Primary Dx); COPD (chronic obstructive pulmonary disease) with chronic bronchitis (HCC); Hypertriglyceridemia; Vitamin D deficiency; Dyslipidemia; Atrial fibrillation, persistent (HCC); Screening for prostate cancer; DANIEL (generalized anxiety disorder) Start: 07-03-2022 Telephone encounter Boo armstrong DO Work Phone: [facility] [place] Comment on above: Patient Update Start: 05-22-2022 Refill Boo watkins DO Work Phone: [facility] [place] Comment on above: Refill Request Start: 04-24-2022 Refill Boo watkins DO Work Phone: [facility] [place] Comment on above: Refill Request Start: 04-23-2022 End: 04-24-2022 ambulatory KAREEM SHEN MD Facility:A Start: 04-23-2022 End: 04-24-2022 Observation KAREEM SHEN MD [facility] Start: 04-12-2022 Telephone encounter Job bridges PA-C Work Phone: Ophthalmology Comment on above: Patient Update Start: 04-10-2022 End: 04-10-2022 ambulatory BOO MARINA Facility:[facility] Start: 04-10-2022 End: 04-10-2022 Patient encounter procedure Camryn Davila MD Work Phone: Ophthalmology Comment on above: Post-operative state (Primary Dx); Wound dehiscence Start: 04-08-2022 End: 04-08-2022 ambulatory BOO MARINA Facility:[facility] Start: 03-25-2022 End: 03-25-2022 ambulatory BOO MARINA Facility:[facility] Start: 03-13-2022 Telephone encounter Boo armstrong DO Work Phone: [facility] [place] Comment on above: Plan of Care Start: 03-06-2022 End: 03-06-2022 ambulatory CAMRYN DAVILA Facility:[facility] Start: 03-01-2022 Refill Ekta meneses DESIGN SALES CONSULTANT.RETAIL WAREHOUSE ASSOCIATE Work Phone: [facility] [place] Comment on above: Refill Request Start: 03-01-2022 Telephone encounter Jacky Cortes mmad DESIGN SALES CONSULTANT.RETAIL WAREHOUSE ASSOCIATE Work Phone: Ophthalmology Comment on above: Returning Patient's Call Refill Request Start: 02-28-2022 Telephone encounter Akilah pérez PA-C Work Phone: Ophthalmology Comment on above: Post Op Call Follow Up Start: 02-27-2022 Telephone encounter Jayjay smith MD Work Phone: Cardiology Comment on above: Patient Update Medication Problem Start: 02-27-2022 End: 02-27-2022 ambulatory CAMRYN DAVILA Facility:[facility] Start: 02-26-2022 End: 02-26-2022 Emergency department patient visit CASS PILLAI [facility] Start: 02-26-2022 End: 02-26-2022 ambulatory ANA MARIA JOLLY Facility:[facility] Start: 02-25-2022 End: 02-25-2022 ambulatory Camryn Davila MD Work Phone: Ophthalmology Comment on above: Basal cell carcinoma (BCC) of skin of left lower eyelid including canthus (Primary Dx) Start: 02-25-2022 End: 02-25-2022 Telemedicine consultation with patient Camryn Davila MD Work Phone: [facility] Start: 02-19-2022 Orders Only Jacky Sanchez APRN.RETAIL WAREHOUSE ASSOCIATE Work Phone: [facility] Comment on above: Basal cell carcinoma (BCC) of skin of left lower eyelid including canthus (Primary Dx) Start: 02-13-2022 Telephone encounter Camryn Davila MD Work Phone: Ophthalmology Comment on above: Question Start: 02-01-2022 Telephone encounter Young paz MD Work Phone: Dermatology Comment on above: Results Start: 01-29-2022 End: 01-29-2022 Patient encounter procedure Juan Carlos Aldrich Cris OD Work Phone: Ophthalmology Comment on above: [...] Telephone encounter Boo armstrong DO Work Phone: [facility] [place] Comment on above: Results Start: 01-07-2022 End: 01-07-2022 Patient encounter procedure Boo Marina DO Work Phone: [facility] [place] Comment on above: Chronic combined sys tolic [...] kidney disease (HCC) Start: 12-07-2021 Refill Ekta meneses APRN.RETAIL WAREHOUSE ASSOCIATE Work Phone: [facility] [place] Comment on above: Refill Request Start: 12-07-2021 Refill Boo watkins DO Work Phone: [facility] Comment on above: Refill Request Start: 12-04-2021 End: 12-05-2021 ambulatory KAREEM SHEN MD Facility:A Start: 12-04-2021 End: 12-05-2021 Observation KAREEM SHEN MD [facility] Start: 11-30-2021 Telephone encounter Boo armstrong DO Work Phone: [facility] [place] Comment on above: Fax Requested Start: 11-29-[address] [place] DESIGN SALES CONSULTANT.RETAIL WAREHOUSE ASSOCIATE Work Phone: [facility] [place] Comment on above: Results Start: 11-17-2021 Follow-up encounter Jayjay smith MD Work Phone: [facility] Start: 11-17-2021 Pacemaker Remote F/U Jayjay Johnson MD Work Phone: [facility] Department Start: 10-16-2021 Telephone encounter Giuliana Moore RN C ardiology Comment on above: Patient Update Start: 10-12-2021 Refill Ekta Downeydaniel mensees DESIGN SALES CONSULTANT.RETAIL WAREHOUSE ASSOCIATE Work Phone: [facility] [place] Comment on above: Refill Request Start: 10-12-2021 Refill Boo watkins DO Work Phone: [facility] [place] Comment on above: Refill Request Start: 10-10-2021 Telephone encounter Boo armstrong DO Work Phone: [facility] [place] Comment on above: Results [...] 10-01-2021 ambulatory Boo watkins DO Work Phone: [facility] [place] Comment on above: Blood Pressure Start: 09-28-2021 End: 09-28-2021 Patient encounter procedure Zoraida Hodge DESIGN SALES CONSULTANT.RETAIL WAREHOUSE ASSOCIATE Work Phone: [facility] [place] Comment on above: Numbness of toes (Pr imary Dx); Neuropathy; Eczema of both external ears; Chronic eczematous otitis externa of both ears Start: 09-28-2021 Telephone encounter Zoraida Cohen DESIGN SALES CONSULTANT.RETAIL WAREHOUSE ASSOCIATE Work Phone: [facility] [place] Comment on above: pharmacy questioning ear drop rx Start: 09-27-2021 ambulatory Boo watkins DO Work Phone: [facility] [place] Comment on above: Musculoskeletal Prob eugenio Start: 09-14-2021 Refill Ekta meneses DESIGN SALES CONSULTANT.RETAIL WAREHOUSE ASSOCIATE Work Phone: [facility] [place] Comment on above: Refill Request Start: 09-12-2021 Telephone encounter Jayjay smith MD Work Phone: Cardiology Comment on above: Appointment (Patient can't come to [place]) Start: 09-11-2021 Follow-up encounter Jayjay smith MD Work Phone: [facility] Start: 09-11-2021 Pacemaker Remote F/U Jayjay Johnson MD Work Phone: [facility] Start: 09-11-2021 Telephone encounter Boo armstrong DO Work Phone: [facility] [place] Comment on above: Appt concerns Start: 09-03-2021 Follow-up encounter Jayjay smith MD Work Phone: [facility] Start: 09-03-2021 Pacemaker Remote F/U Jayjay Johnson MD Work Phone: [facility] Start: 08-22-2021 Orders Only Jayjay schrader MD Work Phone: Cardiology Comment on above: Chronic systolic con gestive heart failure (HCC) (Primary Dx) Schedule Surgery (ad d CS lead to PPM) Start: 08-20-2021 Chart abstracting Jayjay rodríguez MD Work Phone: Cardiology Start: 08-15-2021 Follow-up encounter Jayjay smith MD Work Phone: [facility] Start: 08-15-2021 Pacemaker Remote F/U Jayjay Johnson MD Work Phone: [facility] Start: 07-12-2021 Telephone encounter Boo armstrong DO Work Phone: [facility] Comment on above: Plan of Care Start: 06-15-2021 End: 06-15-2021 Subsequent hospital visit by physician Xr [facility] Work Phone: Radiology Comment on above: Swelling of left lara d [M79.89] Start: 06-26-2020 End: 06-26-2020 Subsequent hospital visit by physician Xr [facility] Work Phone: Radiology Comment on above: Rhonchi [R09.89] Start: 12-10-2017 Ambulatory YONI TANANA Facility :[facility] Start: 06-16-2017 End: 06-16-2017 [facility] Start: 05-29-2017 End: 05-29-2017 [facility] Start: 04-29-2017 Ambulatory [facility] Facility:[facility] Procedures Date Procedure Procedure Detail Performing Clinician Start: 03-01-2024 End: 03-01-2024 Needle emg ea extremty w/paraspinl area complete Natalie Del Rio NP Work Phone: Start: 01-06-2024 End: 01-06-2024 [facility] medical xm&esperanza brooks new pt 1/> vst Cicatricial ectropion of left lower eyelid Zahra Arenas MD Work Phone: Comment on above: 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 COVID-19 BIVALENT BOOSTER VACCINE, AGE 12+ YR Boo Marina DO Work Phone: Start: 01-07-2022 INFLUENZA SEASONAL QUADRIVALENT HIGH DOSE AGE 65+ Boo Marnia DO Work Phone: Start: 11-17-2021 PACEMAKER REMOTE CHECK Jayjay Sweeney MD Work Phone: Start: 09-11-2021 PACEMAKER REMOTE CHECK Jayjay Sweeney MD Work Phone: Start: 09-03-2021 PACEMAKER REMOTE CHECK Jayjay Sweeney MD Work Phone: Start: 08-15-2021 PACEMAKER REMOTE CHECK Jayjay Sweeney MD Work Phone: Start: 06-15-2021 Radex hand minimum 3 views Ekta Mandujano DESIGN SALES CONSULTANT.RETAIL WAREHOUSE ASSOCIATE Work Phone: Start: 06-26-2020 Radiologic exam chest 2 views Boo armstrong DO Work Phone: Start: 03-03-2020 Cardioversion KAREEM SHEN MD Comment on above: 12/2019 Cardiac pacemaker, d evice (physical object) KAREEM SHEN MD Comment on above: 08-17-2012- [facility]- Now followmarsha hough with Dr. Shen as of 12-03-2021. [employer] PPM Advisa- A2DR01, SN: [id number]. RA lead 5086, SN: [id number]. RV lead 5086, SN: [id number] Cardiac pacemaker, d evice (physical object) KAREEM SHEN MD Comment on above: 08-17-2012- [facility]- Now followi gianluca with Dr. Shen as of 12-03-2021. [employer] PPM Advisa- A2DR01, SN: [id number]. RA lead 5086, SN: [id number]. RV lead 5086, SN: [id number] 12-04-2021 Upgrade to GLASSWARE VERIFIER-P LV lead added 4798, SN: [id number]. Cardiac pacemaker, d evice (physical object) Nanci [...] Author Start: 12-07-2025 DIABETES SCREEN DIABETES SCREEN [facility] Start: 12-07-2025 Diabetes Screening Diabetes Screening [facility] Start: 10-18-2025 DIABETES SCREEN DIABETES SCREEN [facility] Start: 10-08-2025 DIABETES SCREEN DIABETES SCREEN [facility] Start: 07-22-2025 DIABETES SCREEN DIABETES SCREEN [facility] Start: 01-07-2025 DIABETES SCREEN DIABETES SCREEN [facility] Start: 10-08-2024 DIABETES SCREEN DIABETES SCREEN [facility] Start: 07-04-2024 DIABETES SCREEN DIABETES SCREEN [facility] Start: 06-03-2024 End: 06-03-2024 Patient encounter procedure 06/03/2024 4:20 PM EST Office Visit [facility] [place] [address] [place] [id number] Natalie Del Rio NP [address] [facility] [address] [place], [place] [facility] Start: 04-05-2024 End: 04-05-2024 Patient encounter procedure 04/05/2024 4:50 PM EST Office Visit [facility] [address] [place] [address] Eric Willoughby DPM [address] [address] [facility] Start: 03-30-2024 End: 03-30-2024 Patient encounter procedure 03/30/2024 4:30 PM EST Office Visit [facility] [address] [place] [address] Eric Willoughby DPCarina [address] [address] [facility] [place] [facility] Start: 03-22-2024 End: 03-22-2024 Patient encounter procedure 03/22/2024 11:20 AM EST Office Visit [facility] [address] [place] [address] Eric Willoughby DPM [address] [address] Acute gout of left foot, unspecified cause (Primary Dx); Hallux rigidus of right foot; Hallux rigidus of left foot; Other polyneuropathy [facility] Comment on above: Acute gout of left foot, unspecified cau se (Primary Dx); Hallux rigidus of right foot; Hallux rigidus of left foot; Other polyneuropathy Start: 03-12-2024 End: 03-12-2024 Patient encounter procedure [facility] Comment on above: Hallux rigidus of left foot (Primary Dx) ; Hallux rigidus of right foot; Capsulitis of metatarsophalangeal (MTP) joint of right foot; Capsulitis of metatarsophalangeal (MTP) joint of left foot; Other polyneuropathy Start: 03-09-2024 End: 03-09-2024 Patient encounter procedure [facility] [address] Comment on above: Arrived Start: 03-01-2024 End: 03-01-2024 Patient encounter procedure 03/01/2024 4:00 PM EST [facility] [address] [place] [address] Pamela Peguero DO [address] [place] [address] [facility] Start: 02-24-2024 End: 02-23-2025 EMG 2 Extremities EMG 2 Extremities Neurology Routine Paresthesias Expected: 02/24/2024 (Approximate), Expires: 02/23/2025 [facility] Work Phone: Comment on above: Expected: 02/24/2024 (Approximate), Expi res: 02/23/2025 Start: 02-16-2024 End: 02-16-2024 Patient encounter procedure 02/16/2024 1:40 PM EDT Office Visit [facility] [address] [address] [place] [address] Natalie Del Rio, YANELIS [address] [place], [place] Arrived [facility] [address] Comment on above: Arrived Start: 12-21-2023 Covid-19 Vaccine () Covid-19 Vaccine () [facility] Start: 12-21-2023 Influenza vaccination Influ[facility] Start: 12-07-2023 Hepatitis B surface antibody level LDL CHOLESTEROL [facility] Start: 07-23-2023 Hepatitis B surface antibody level LDL CHOLESTEROL [facility] Start: 07-09-2023 Urine microalbumin profile [facility] jese Comment on above: Postponed from 09/29/1954 (Declined at t his time) Start: 12-20-2022 Covid-19 Vaccine () Covid-19 Vaccine () [facility] Start: 12-20-2022 Influenza vaccination [facility] Start: 07-08-2022 End: 09-07-2022 25-hydroxyvitamin D3 [Mass/volume] in Serum or Plasma VITAMIN D 25 HYDROXY Lab Routine Vitamin D deficiency Expected: 07/08/2022, Expires: 09/07/2022 [facility] Work Phone: Comment on above: Expected: 07/08/2022, Expires: 3 Start: 07-08-2022 End: 09-07-2022 CBC W Auto Differential panel - Blood CBC + DIFF Lab Routine Essential hypertension Expected: 07/08/2022, Expires: 09/07/2022 [facility] Work Phone: Comment on above: Expected: 07/08/2022, Expires: 3 Start: 07-08-2022 End: 09-07-2022 Comprehensive metabolic 2000 panel - Serum or Plasma COMP METABOLIC PANEL Lab Routine Essential hypertension Expected: 07/08/2022, Expires: 09/07/2022 [facility] Work Phone: Comment on above: Expected: 07/08/2022, Expires: 3 Start: 07-08-2022 End: 09-07-2022 Hemoglobin A1c in Blood HGB A1C Lab Routine Hypertriglyceridemia Dyslipidemia Expected: 07/08/2022, Expires: 09/07/2022 [facility] Work Phone: Comment on above: Expected: 07/08/2022, Expires: 3 Start: 07-08-2022 End: 09-07-2022 Lipid 1996 panel - Serum or Plasma LIPID PANEL BASIC Lab Routine Hypertriglyceridemia Dyslipidemia Expected: 07/08/2022, Expires: 09/07/2022 [facility] Work Phone: Comment on above: Expected: 07/08/2022, Expires: 3 Start: 07-08-2022 End: 09-07-2022 PSA/PROSTSPECAG SCRN PSA/PROSTSPECAG SCRN Lab Routine Screening for prostate cancer Expected: 07/08/2022, Expires: 09/07/2022 [facility] Work Phone: Comment on above: Expected: 07/08/2022, Expires: Start: 07-04-2022 Hepatitis B surface antibody level LDL CHOLESTEROL [facility] Start: 06-15-2022 Urine microalbumin profile DTAP,TDAP,TD (1 - Tdap) [facility] Comment on above: Postponed from 09/29/1954 (Declined at t his time) Start: 05-11-2022 COVID-19 VACCINE (7 - Moderna series) COVID-19 VACCINE (7 - Moderna series) [facility] Start: 04-21-2022 DEPRESSION ASSESSMENT DEPRESSION ASSESSMENT [facility] Start: 12-20-2021 Influenza vaccination INFLUENZA (#1) [facility] Start: 08-22-2021 End: 08-22-2022 SARS-CoV-2 (COVID-19) RNA [Presence] in Respiratory specimen by LAURA with probe detection PRE-PROCEDURE & PRE-OPERATIVE COVID Microbiology Routine Chronic systolic congestive heart failure (HCC) Expected: 08/22/2021, Expires: 08/22/2022 [facility] Work Phone: Comment on above: Expected: 08/22/2021, Expires: 3 Start: 08-02-2021 COVID-19 VACCINE (4 - Booster for Moderna series) COVID-19 VACCINE (4 - Booster for Moderna series) [facility] Start: 04-21-2021 ADVANCE DIRECTIVE DISCUSSION ADVANCE DIRECTIVE DISCUSSION [facility] Start: 04-21-2021 DEPRESSION ASSESSMENT DEPRESSION ASSESSMENT [facility] Start: 12-20-2017 SHINGRIX VACCINE (2 of 2) SHINGRIX VACCINE (2 of 2) [facility] Start: 09-29-2010 RSV Vaccine (1 - 1-dose 75+ series) RSV Vaccine (1 - 1-dose 75+ series) [facility] Start: 1995 RSV Vaccine (1 - 1-dose 60+ series) RSV Vaccine (1 - 1-dose 60+ series) [facility] Start: 09-29-1954 Urine microalbumin profile [facility] Start: 09-29-1953 Depression Screening Depression Screening [facility] Bacteria identified in Wound by Culture WOUND CULTURE AND GRAM STAIN Microbiology Routine Post-operative state Wound dehiscence 04/10/2022 3:59 PM EST [facility] Work Phone: End: 09-28-2022 PVR ANK PRESS [facility] PVR ANK PRESS [facility] Vascular Lab Routine Numbness of toes Neuropathy 1 Occurrences starting 09/28/2021 until 09/28/2022 [facility] Work Phone: Comment on above: 1 Occurrences starting 09/28/2021 until 09/28/2022 SURGICAL PATHOLOGY S KIN ONLY SURGICAL PATHOLOGY SKIN ONLY Lab Routine Neoplasm of unspecified behavior of bone, soft tissue, and skin Release Upon Ordering for 1 Occurrences starting 01/29/2022 [facility] Work Phone: Comment on above: Release Upon Ordering for 1 Occurrences starting 01/29/2022 [facility] Immunizations Immunization Date Immunization Notes Care Provider Fa cili 02-25-2024 influenza virus vaccine, unspecified formulation Pamela Peguero DO Work Phone: [facility] 02-05-2024 influenza, high dose seasonal, preservative-free; Translations: [Fluzone High Dose Vaccine] Nanci Gudimella [facility] 12-24-2022 influenza, high dose seasonal, preservative-free Nanci Gudimella [facility] 12-24-2022 influenza virus vaccine, unspecified formulation Zahra Arenas MD Work Phone: [facility] 01-09-2022 COVID-19 booster vaccine, age 12+ yr, bivalent ([employer]) [employer] DO Work Phone: [facility] Work Phone: Comment on above: Result Comment: 2022: [id number] 01-07-2022 influenza virus vaccine, unspecified formulation Nanci Gudimella [facility] 01-07-2022 influenza, high-dose , quadrivalent vaccine (FLUZONE HIGH DOSE QUADRIVALENT) [employer] Work Phone: [facility] Work Phone: 04-03-2021 SARS-CoV-2 (COVID-19 ) mRNA-1273 vaccine Nanci Gudimella [facility] 12-29-2020 influenza virus vaccine, unspecified formulation Nanci Gudimella [facility] 12-29-2020 influenza, high-dose , quadrivalent vaccine (FLUZONE HIGH DOSE QUADRIVALENT) Boo Marina DO Work Phone: [facility] Work Phone: 06-22-2020 COVID-19 vaccine, fu ll dose (MODERNA) Zoraida Hodge APRN.RETAIL WAREHOUSE ASSOCIATE Work Phone: [facility] Work Phone: 06-21-2020 COVID-19 vaccine, fu ll dose (MODERNA) Boo Marina DO Work Phone: [facility] Work Phone: 05-25-2020 COVID-19 vaccine, fu ll dose (MODERNA) Zoraida Hodge APRN.RETAIL WAREHOUSE ASSOCIATE Work Phone: [facility] Work Phone: 05-24-2020 COVID-19 vaccine, fu ll dose (MODERNA) Boo Marina DO Work Phone: [facility] Work Phone: 12-15-2019 influenza virus vaccine, unspecified formulation Nanci Gudimella [facility] 12-15-2019 influenza, high-dose , quadrivalent vaccine (FLUZONE HIGH DOSE QUADRIVALENT) Zoraida Hodge APRN.RETAIL WAREHOUSE ASSOCIATE Work Phone: [facility] Work Phone: 12-14-2019 influenza, high dose seasonal, preservative-free Boo Marina DO Work Phone: [facility] Work Phone: 01-05-2019 influenza virus vaccine, unspecified formulation Nanci Gudimella [facility] 01-05-2019 influenza, high dose seasonal, preservative-free Boo Marina DO Work Phone: [facility] 02-24-2018 zoster vaccine recombinant Zoraida Hodge APRN.RETAIL WAREHOUSE ASSOCIATE Work Phone: [facility] Work Phone: 01-07-2018 influenza virus vaccine, unspecified formulation Nanci Gudimella [facility] 01-07-2018 influenza, high dose seasonal, preservative-free Boo Marina DO Work Phone: [facility] Work Phone: 10-25-2017 zoster vaccine recombinant Boo Marina DO Work Phone: [facility] 02-04-2017 influenza virus vaccine, unspecified formulation Nanci Gudimella [facility] 02-04-2017 influenza, high dose seasonal, preservative-free Zoraida Hodge DESIGN SALES CONSULTANT.RETAIL WAREHOUSE ASSOCIATE Work Phone: [facility] Work Phone: 06-19-2016 pneumococcal conjuga te vaccine, 13 valent Boo Marina DO Work Phone: [facility] Work Phone: 02-20-2016 influenza virus vaccine, unspecified formulation Nanci Gudimella [facility] 02-20-2016 influenza, high dose seasonal, preservative-free Boo Marina DO Work Phone: [facility] 01-19-2015 pneumococcal polysaccharide vaccine, 23 valent Jayjay Sweeney MD Work Phone: [facility] Work Phone: Payers Date Payer Category Payer Medicare (Managed Care) 1.2. [id number] 2020 Medicaid MEDICAID [facility] MEDICAID [id number] 2020-Present [phone] [address] [place] [address] Medicaid [id number] 2019 Medicaid [id number] 2019 Medicaid [id number] 2019 Medicare UHC MEDICARE UHC DUAL COMPLETE HMO SNP [id number] 2019-Present [phone] [address] [place] [address] Medicare [id number] 2019 Medicare [id number] 2019 Unknown [id number] 2017 Medicare [id number] 1935 Unknown [id number] 2.16.840.1.452923.3.579.2.6 27 1935 Unknown [id number] 2.16.840.1.422653.3.579.2.6 27 1935 Unknown [id number] 2.16.840.1.900891.3.579.2.6 27 1935 Unknown [id number] 2.16.840.1.330480.3.579.2.6 51 1935 Unknown [id number] 2.16.840.1.226433.3.579.2.6 51 1935 Unknown [id number] 2.16.840.1.798878.3.579.2.6 51 1935 Unknown [id number] 2.16.840.1.164627.3.579.2.6 51 1935 Unknown [id number] 2.16.840.1.367331.3.579.2.6 51 1935 Unknown [id number] 2.16.840.1.692973.3.579.2.7 27 1935 Unknown [id number] 2.16.840.1.710008.3.579.2.7 27 1935 Unknown [id number] 2.16.840.1.888982.3.579.2.7 27 1935 Unknown [id number] 2.16.840.1.578423.3.579.2.7 1935 Unknown [id number] 2.16.840.1.721007.3.579.2.7 1935 Unknown [id number] 2.16.840.1.413061.3.579.2.7 1935 Unknown [id number] 2.16.840.1.196421.3.579.2.7 1935 Unknown [id number] 2.16.840.1.464594.3.579.2.7 1935 Unknown [id number] 2.16.840.1.176162.3.579.2.7 1935 Unknown [id number] 2.16.840.1.143451.3.579.2.7 1935 Unknown [id number] 2.16.840.1.442531.3.579.2.7 1935 Unknown [id number] 2.16.840.1.092715.3.579.2.7 1935 Unknown [id number] 2.16.840.1.810693.3.579.2.7 1935 Unknown [id number] 2.16.840.1.111025.3.579.2.7 1935 Unknown [id number] 2.16.840.1.671622.3.579.2.7 1935 Unknown [id number] 2.16.840.1.677502.3.579.2.7 1935 Unknown [id number] 2.16.840.1.413878.3.579.2.7 1935 Unknown [id number] 2.16.840.1.068945.3.579.2.7 1935 Unknown [id number] 2.16.840.1.018593.3.579.2.7 6 Unknown [id number] 2.16.840.1.227996.3.579.2.7 27 1935 Unknown [id number] 2.16.840.1.710145.3.579.2.7 27 1935 Unknown [id number] 2.16.840.1.722116.3.579.2.7 27 1935 Unknown [id number] 2.16.840.1.319187.3.579.2.1 259 1935 Unknown [id number] 2.16.840.1.901421.3.579.2.1 259 1935 Unknown [id number] 2.16.840.1.191857.3.579.2.1 259 1935 Unknown [id number] 2.16.840.1.091438.3.579.2.1 259 1935 Unknown [id number] 2.16.840.1.764938.3.579.2.1 259 1935 Unknown [id number] 2.16.840.1.204343.3.579.2.1 259 1935 Unknown [id number] 2.16.840.1.596948.3.579.2.1 259 1935 Unknown [id number] 2.16.840.1.733389.3.579.2.1 259 1935 Unknown [id number] 2.16.840.1.487305.3.579.2.1 259 1935 Unknown [id number] 2.16.840.1.980934.3.579.2.1 259 1935 Unknown [id number] 2.16.840.1.982061.3.579.2.1 259 1935 Unknown [id number] 2.16.840.1.166493.3.579.2.1 259 1935 Unknown [id number] 2.16.840.1.631240.3.579.2.1 259 Medicare [id number] Social History Date Type Detail Facility Start: 11-30-2019 End: 11-17-2023 Tobacco smoking status NHIS Smokes tobacco daily [facility] History of tobacco use Cigarette Smoker C [facility] Start: 06-26-2020 End: 07-04-2021 Alcohol intake Current non-drinker of alcohol (finding) [facility] Start: 11-30-2019 End: 01-07-2022 Tobacco Comment PK EVERY 3 DAYS [facility] Start: 1935 Sex Assigned At Not on file [facility] Start: 05-27-2020 End: 03-06-2022 Exposure to SARS-CoV-2 (event) Not sure [facility] Work Phone: Start: 08-12-2021 End: 08-22-2021 Exposure to SARS-CoV-2 (event) Unable to assess [facility] Start: 11-30-2019 End: 11-17-2023 Tobacco use and exposure Smokeless tobacco non-user [facility] Tobacco Nicotine Use: unknown. [facility] Tobacco smoking status [facility] Start: 10-08-2022 End: 11-17-2023 History of Social function [facility] Work Phone: Start: 10-08-2022 End: 11-17-2023 Tobacco use panel [facility] Work Phone: Adult Depression Screening Assessment 1 [facility] Work Phone: (I/We) worried wheame er (my/our) food would run out before (I/we) got money to buy more. Never true [facility] Do you belong to any clubs or organizations such as protestant groups, unions, fraternal or athletic groups, or school groups? No [facility] Are you now , , , , never or living with a partner? [facility] How often to you hav e a drink containing alcohol? Never [facility] Do you feel stress - tense, restless, nervous, or anxious, or unable to sleep at night because your mind is troubled all the time - these days [OSQ] Only a little [facility] Start: 12-24-2022 End: 03-14-2023 Tobacco smoking status Heavy tobacco smoker (finding) [facility] Start: 04-10-2023 End: 01-21-2024 Tobacco smoking status Light tobacco smoker (finding) [facility] Start: 02-05-2024 End: 02-16-2024 Tobacco smoking status Ex-smoker (finding) [facility] Start: 11-17-2023 End: 01-06-2024 Alcoholic beverage intake Lifetime non-drinker (finding) [facility] Functional Status Date Assessment Result Facility 02-16-2024 Functional Status N/A [facility] 02-05-2024 Functional Status N/A [facility] 01-23-2024 Functional Status No [facility] 01-23-2024 Functional Status [facility] 01-21-2024 Functional Status N/A [facility] 11-13-2023 Functional Status No [facility] 09-11-2023 Functional Status N/A [facility] 07-07-2023 Functional Status N/A [facility] 04-10-2023 Functional Status No [facility] 03-14-2023 Functional Status N/A [facility] 03-11-2023 Functional Status N/A [facility] 02-11-2023 Functional Status No [facility] 01-03-2023 Functional Status No [facility] 12-24-2022 Functional Status N/A [facility] 04-24-2022 Functional Status Ambulating in loepz, Ambulating in room [facility] 04-24-2022 Functional Status Breakfast Percent 100 A [facility] 04-24-2022 Functional Status Room located n ear nursing station, Room check performed [facility] 04-23-2022 Functional Status [facility] 04-23-2022 Functional Status [facility] 01-03-2023 Functional Status [facility] 04-23-2022 Functional Status Patient Identi fied Identification band, Verbal [facility] 04-23-2022 Functional Status [facility] 04-23-2022 Functional Status Maintained [facility] 12-05-2021 Functional Status Ambulating in lopez, Ambulating in room [facility] 12-05-2021 Functional Status Room located n ear nursing station, Door open, Reoriented [facility] 12-05-2021 Functional Status [facility] 12-04-2021 Functional Status [facility] 12-04-2021 Functional Status [facility] 12-04-2021 Functional Status Patient Identi fied Identification band, Verbal [facility] 12-04-2021 Functional Status Maintained, More than 8 hours [facility] Mental Status Date Assessment Result Facility 04-24-2022 Mental Status Orientation Oriented x 4, F orgetful [facility] 04-24-2022 [facility] Status [facility] 12-05-2021 Mental Status [facility]ed x [facility] 12-05-2021 Mental Status [facility] 12-04-2021 Mental Status [facility] 12-04-2021 Mental Status [facility] Clinical Notes 01-14-2020 to 03-22-2024 Eric Willoughby, GRETA - 03/22/2024 11:20 AM Lola Willoughby, GRETA - 03/15/2024 10:40 AM Lola Willoughby DPM - 03/12/2024 4:20 PM Glen Peguero DO - 03/09/2024 3:00 PM EST Note Date & Type Note Facility 03-22-2024 History of Present illness Narrative Patient: Thanh Coleman : 1935 PCP: Oni Jarvis MD SUBJECTIVE Patient presents 10 days I&D of the left 2nd toenail. Patient had had intense redness and pain to left 2nd toe on previous visit with bright red hot swollen 2nd toe . Patient has been taking oral antibiotics Denies treatment Patient denies n/f/v/c. 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 Patient presents today for follow up of capsulitis and synovitis to the right and left first MPJ capsule with hallux rigidus Currently they rate their pain on a 1-10 scale a 1 with hx of steroid injections in the past. Allergies: Allergies Allergen Reactions Banana Itching Dust Mite Extract Unknown Grass Pollen(K-O-R-T-Swt Rui) Unknown Molds & Smuts Unknown Past Medical History: Past Medical History: Diagnosis Date A-fib ([facility]) CAD (coronary artery disease) ([facility]) Carotid artery stenosis CHF (congestive heart failure) ([facility]) Chronic kidney disease, stage 3 ([facility]) ([facility]) History of being hospitalized 11/2022 stroke Hyperlipidemia ([facility]) Hypertension ([facility]) 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 Stroke ([facility]) Medications: Current Outpatient Medications: albuterol HFA 90 mcg/act inhaler, INHALE 2 PUFFS EVERY 6 HOURS NEEDED FOR WHEEZE OR FOR SHORTNESS OF BREATH, Disp: , Rfl: amiodarone (Pacerone) 200 MG tablet, Take 200 mg by mouth Daily, Disp: , Rfl: aspirin 81 MG EC tablet, Take 1 tablet (81 mg) by mouth Daily, Disp: 30 tablet, Rfl: 11 atorvastatin (Lipitor) 40 MG tablet, Take 40 mg by mouth Daily, Disp: , Rfl: cephalexin (Keflex) 500 MG capsule, Take 1 capsule (500 mg) by mouth in the morning and 1 capsule (500 mg) in the evening and 1 capsule (500 mg) before bedtime. Do all this for 10 days. Take one tablet by mouth three times daily., Disp: 30 capsule, Rfl: 0 cholecalciferol (Vitamin D-3) 50 MCG (1999 UT) capsule, Take 2,000 Units by mouth in the morning., Disp: , Rfl: clindamycin (Cleocin) 300 MG capsule, Take 1 capsule (300 mg) by mouth in the morning and 1 capsule (300 mg) in the evening and 1 capsule (300 mg) before bedtime. Do all this for 10 days., Disp: 30 capsule, Rfl: 0 donepezil (Aricept) 10 MG tablet, Take 10 mg by mouth at bedtime, Disp: , Rfl: Eliquis 2.5 MG tablet, Take 2.5 mg by mouth in the morning and 2.5 mg before bedtime., Disp: , Rfl: ezetimibe (Zetia) 10 MG tablet, Take 10 mg by mouth in the morning., Disp: , Rfl: fenofibrate (Tricor) 54 MG tablet, Take 54 mg by mouth in the morning., Disp: , Rfl: fexofenadine (Johanna) 60 MG tablet, Take 60 mg by mouth in the morning and 60 mg before bedtime. (Patient not taking: Reported on 02/16/2024), Disp: , Rfl: furosemide (Lasix) 40 MG tablet, Take 40 mg by mouth in the morning and 40 mg before bedtime., Disp: , Rfl: gabapentin (Neurontin) 300 MG capsule, Take 300 mg by mouth in the morning and 300 mg in the evening and 300 mg before bedtime. (Patient not taking: Reported on 02/16/2024), Disp: , Rfl: hydrALAZINE (Apresoline) 10 MG tablet, Take 10 mg by mouth in the morning and 10 mg in the evening and 10 mg before bedtime., Disp: , Rfl: ipratropium-albuterol (Duo-Neb) 0.5-2.5 mg/3 mL nebulizer solution, Take 3 mL by nebulization every 8 (eight) hours if needed for shortness of breath, Disp: , Rfl: isosorbide dinitrate (Isordil) 10 MG tablet, Take 10 mg by mouth in the morning and 10 mg in the evening and 10 mg before bedtime., Disp: , Rfl: loratadine (Claritin) 10 MG tablet, Take 10 mg by mouth Daily, Disp: , Rfl: memantine (Namenda) 10 MG tablet, Take 10 mg by mouth Daily, Disp: , Rfl: methylPREDNISolone (Medrol Dospak) 4 MG tablets, Follow schedule on MEDROL PACK package instructions to be used as directed, Disp: 21 tablet, Rfl: 0 metoprolol succinate XL (Toprol-XL) 100 MG 24 hr tablet, Take 100 mg by mouth in the morning and 100 mg before bedtime., Disp: , Rfl: nicotine (Nicoderm, Step 2) 14 MG/24HR patch, Place 1 patch on the skin 1 (one) time each day at the same time, Disp: , Rfl: nitroglycerin (Nitrostat) 0.4 MG SL tablet, Place 0.4 mg under the tongue, Disp: , Rfl: pantoprazole (ProtoNix) 40 MG EC tablet, Take 40 mg by mouth in the morning and 40 mg before bedtime., Disp: , Rfl: PSYLLIUM HUSK PO, Take 0.4 g by mouth in the morning and 0.4 g before bedtime., Disp: , Rfl: Reguloid 0.52 g capsule, 2 capsules Daily (Patient not taking: Reported on 02/16/2024), Disp: , Rfl: Social History: Social History Socioeconomic History Marital status: Spouse name: Not on file Number of children: Not on file Years of education: Not on file Highest education level: Not on file Occupational History Not on file Tobacco Use Smoking status: Every Day Current packs/day: 0.50 Average packs/day: 0.5 packs/day for 56.0 years (28.0 ttl pk-yrs) Types: Cigarettes Smokeless tobacco: Never Vaping Use Vaping status: Unknown Substance and Sexual Activity Alcohol use: Never Drug use: Never Sexual activity: Defer Other Topics Concern Not on file Social History Narrative Not on file Social Drivers of Health Financial Resource Strain: Low Risk (12/16/2022) Received from [facility] Overall Financial Resource Strain (CARDIA) Difficulty of Paying Living Expenses: Not hard at all Food Insecurity: No Food Insecurity (12/11/2022) Received from [facility] Hunger Vital Sign Worried About Running Out of Food in the Last Year: Never true Ran Out of Food in the Last Year: Never true Transportation Needs: No Transportation Needs (12/11/2022) Received from [facility] PRAPARE - Transportation Lack of Transportation (Medical): No Lack of Transportation (Non-Medical): No Physical Activity: Inactive (12/16/2022) Received from [facility] Exercise Vital Sign Days of Exercise per Week: 0 days Minutes of Exercise per Session: 0 min Stress: No Stress Concern Present (12/16/2022) Received from [facility] [employer] - Occupational Stress Questionnaire Feeling of Stress : Only a little Social Connections: Socially Isolated (12/16/2022) Received from [facility] Social Connection and Isolation Panel [NHANES] Frequency of Communication with Friends and Family: Once a week Frequency of Social Gatherings with Friends and Family: Once a week Attends Yazidi Services: Never Active Member of Clubs or Organizations: No Attends Club or Organization Meetings: Never Marital Status: Intimate Partner Violence: Not on file Housing Stability: Low Risk (12/16/2022) Received from [facility] Housing Stability Vital Sign Unable to Pay for Housing in the Last Year: No Number of Places Lived in the Last Year: 1 Unstable Housing in the Last Year: No ROS: GI: denies abdominal pain or ulcerations with anti-inflammatory medication Cardiovascular: denies CP, palpitations, irregular rhythms. Positive history of pacemaker and CAD in the past Muscle skeletal: Denies any back issues OBJECTIVE LE EXAM: DERM: Negative hair growth to b/l feet with good skin turgor noted. Negative openings in skin. 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 20 degrees inversion and 10 degrees eversion STJ b/l. Ankle ROM less than 10 degrees b/l. Minimal pain on palpation to medial right ankle capsule and gutter region Range of motion 1st MPJ less than 15 degrees dorsiflexion bilaterally with crepitus Minimal pain on palpation of the plantar aspect of the left 1st MPJ capsule region and sesamoid apparatus Negative pain on palpation left 2nd toenail Positive pain on palpation to the left 2nd DIPJ region ASSESSMENT 1. Acute gout of left foot, unspecified cause 2. Hallux rigidus of right foot 3. Hallux rigidus of left foot 4. Other polyneuropathy PLAN Patient to continue with oral anti - inflammatories as needed for pain and recommended OTC medications such as tylenol or Ibuprofen Patient to finish oral antibiotics Pt to d/c abx. Patient to continue with OTC oral anti - inflammatories as needed for pain. Pt to keep DSD on area of interest while in shoegear, otherwise may expose to air in a clean environment. Pt was given steroid injection to the medial and lateral capsular ligaments of the left 2nd toe DIPJ Injection consisted of a 2:1 mixture of xylocaine 2%plain and kenalog 10 for a total of 3ccs. Informed pt of risks and benefits of procedure including infection,damage or rupture to soft tissue structures and steroid flare. Pt understood and consented. This is the patients 1st injection. Procedure unrelated to prior procedure Eric Willoughby DPM documented in this encounter [facility] 03-15-2024 History of Present illness Narrative Patient: Thanh Coleman : 1935 PCP: Oni Jarvis MD SUBJECTIVE Patient presents 3 days I&D of the left 2nd toenail. Patient states intense redness and pain to left 2nd toe less than 12 hours postprocedure and woke up with bright red hot swollen 2nd toe . Patient has been taking oral antibiotics Denies treatment Patient denies n/f/v/c. Rates pain up to a 9/10 Patient has hallux rigidus with DJD to bilateral great digits He was to purchase OTC gel inserts and states some improvement to his forefoot regions but also states numbness to the forefoot region in the past. Patient presents today for follow up of capsulitis and synovitis to the right and left first MPJ capsule Currently they rate their pain on a 1-10 scale a 3 with hx of steroid injections in the past. Allergies: Allergies Allergen Reactions Banana Itching Dust Mite Extract Unknown Grass Pollen(K-O-R-T-Swt Rui) Unknown Molds & Smuts Unknown Past Medical History: Past Medical History: Diagnosis Date A-fib ([facility]) CAD (coronary artery disease) ([facility]) Carotid artery stenosis CHF (congestive heart failure) ([facility]) Chronic kidney disease, stage 3 (HCC) ([facility]) History of being hospitalized 11/2022 stroke Hyperlipidemia ([facility]) Hypertension ([facility]) 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 Stroke ([facility]) Medications: Current Outpatient Medications: albuterol HFA 90 mcg/act inhaler, INHALE 2 PUFFS EVERY 6 HOURS NEEDED FOR WHEEZE OR FOR SHORTNESS OF BREATH, Disp: , Rfl: amiodarone (Pacerone) 200 MG tablet, Take 200 mg by mouth Daily, Disp: , Rfl: aspirin 81 MG EC tablet, Take 1 tablet (81 mg) by mouth Daily, Disp: 30 tablet, Rfl: 11 atorvastatin (Lipitor) 40 MG tablet, Take 40 mg by mouth Daily, Disp: , Rfl: cephalexin (Keflex) 500 MG capsule, Take 1 capsule (500 mg) by mouth in the morning and 1 capsule (500 mg) in the evening and 1 capsule (500 mg) before bedtime. Do all this for 10 days. Take one tablet by mouth three times daily., Disp: 30 capsule, Rfl: 0 cholecalciferol (Vitamin D-3) 50 MCG (2000 UT) capsule, Take 2,000 Units by mouth in the morning., Disp: , Rfl: donepezil (Aricept) 10 MG tablet, Take 10 mg by mouth at bedtime, Disp: , Rfl: Eliquis 2.5 MG tablet, Take 2.5 mg by mouth in the morning and 2.5 mg before bedtime., Disp: , Rfl: ezetimibe (Zetia) 10 MG tablet, Take 10 mg by mouth in the morning., Disp: , Rfl: fenofibrate (Tricor) 54 MG tablet, Take 54 mg by mouth in the morning., Disp: , Rfl: fexofenadine (Johanna) 60 MG tablet, Take 60 mg by mouth in the morning and 60 mg before bedtime. (Patient not taking: Reported on 02/16/2024), Disp: , Rfl: furosemide (Lasix) 40 MG tablet, Take 40 mg by mouth in the morning and 40 mg before bedtime., Disp: , Rfl: gabapentin (Neurontin) 300 MG capsule, Take 300 mg by mouth in the morning and 300 mg in the evening and 300 mg before bedtime. (Patient not taking: Reported on 02/16/2024), Disp: , Rfl: hydrALAZINE (Apresoline) 10 MG tablet, Take 10 mg by mouth in the morning and 10 mg in the evening and 10 mg before bedtime., Disp: , Rfl: ipratropium-albuterol (Duo-Neb) 0.5-2.5 mg/3 mL nebulizer solution, Take 3 mL by nebulization every 8 (eight) hours if needed for shortness of breath, Disp: , Rfl: isosorbide dinitrate (Isordil) 10 MG tablet, Take 10 mg by mouth in the morning and 10 mg in the evening and 10 mg before bedtime., Disp: , Rfl: loratadine (Claritin) 10 MG tablet, Take 10 mg by mouth Daily, Disp: , Rfl: memantine (Namenda) 10 MG tablet, Take 10 mg by mouth Daily, Disp: , Rfl: methylPREDNISolone (Medrol Dospak) 4 MG tablets, Follow schedule on MEDROL PACK package instructions to be used as directed (Patient not taking: Reported on 02/16/2024), Disp: 21 tablet, Rfl: 0 metoprolol succinate XL (Toprol-XL) 100 MG 24 hr tablet, Take 100 mg by mouth in the morning and 100 mg before bedtime., Disp: , Rfl: nicotine (Nicoderm, Step 2) 14 MG/24HR patch, Place 1 patch on the skin 1 (one) time each day at the same time, Disp: , Rfl: nitroglycerin (Nitrostat) 0.4 MG SL tablet, Place 0.4 mg under the tongue, Disp: , Rfl: pantoprazole (ProtoNix) 40 MG EC tablet, Take 40 mg by mouth in the morning and 40 mg before bedtime., Disp: , Rfl: PSYLLIUM HUSK PO, Take 0.4 g by mouth in the morning and 0.4 g before bedtime., Disp: , Rfl: Reguloid 0.52 g capsule, 2 capsules Daily (Patient not taking: Reported on 02/16/2024), Disp: , Rfl: Social History: Social History Socioeconomic History Marital status: Spouse name: Not on file Number of children: Not on file Years of education: Not on file Highest education level: Not on file Occupational History Not on file Tobacco Use Smoking status: Every Day Current packs/day: 0.50 Average packs/day: 0.5 packs/day for 56.0 years (28.0 ttl pk-yrs) Types: Cigarettes Smokeless tobacco: Never Vaping Use Vaping status: Unknown Substance and Sexual Activity Alcohol use: Never Drug use: Never Sexual activity: Defer Other Topics Concern Not on file Social History Narrative Not on file Social Drivers of Health Financial Resource Strain: Low Risk (12/16/2022) Received from [facility] Overall Financial Resource Strain (CARDIA) Difficulty of Paying Living Expenses: Not hard at all Food Insecurity: No Food Insecurity (12/11/2022) Received from [facility] Hunger Vital Sign Worried About Running Out of Food in the Last Year: Never true Ran Out of Food in the Last Year: Never true Transportation Needs: No Transportation Needs (12/11/2022) Received from [facility] PRAPARE - Transportation Lack of Transportation (Medical): No Lack of Transportation (Non-Medical): No Physical Activity: Inactive (12/16/2022) Received from [facility] Exercise Vital Sign Days of Exercise per Week: 0 days Minutes of Exercise per Session: 0 min Stress: No Stress Concern Present (12/16/2022) Received from [facility] [employer] - Occupational Stress Questionnaire Feeling of Stress : Only a little Social Connections: Socially Isolated (12/16/2022) Received from [facility] Social Connection and Isolation Panel [NHANES] Frequency of Communication with Friends and Family: Once a week Frequency of Social Gatherings with Friends and Family: Once a week Attends Yazidi Services: Never Active Member of Clubs or Organizations: No Attends Club or Organization Meetings: Never Marital Status: Intimate Partner Violence: Not on file Housing Stability: Low Risk (12/16/2022) Received from [facility] Housing Stability Vital Sign Unable to Pay for Housing in the Last Year: No Number of Places Lived in the Last Year: 1 Unstable Housing in the Last Year: No ROS: GI: denies abdominal pain or ulcerations with anti-inflammatory medication Cardiovascular: denies CP, palpitations, irregular rhythms. Positive history of pacemaker and CAD in the past Muscle skeletal: Denies any back issues OBJECTIVE LE EXAM: DERM: Negative hair growth to b/l feet with good skin turgor noted. Negative openings in skin. Edema left 1st MPJ region Edema to right ankle region Left 2nd toenail region has positive erythema and swelling with negative streaking particularly at the DIPJ region of flexion deformity with slight white granules present VASC: Palpable pedal pulsed b/l with warm to cool tibia to toes b/l NEURO: 5.07 [place] Tammie monofilament test intact to digits and forefoot bilaterally 125Hz tuning fork diminished to 1st MPJ bilaterally ORTHO: +5/5 DF/PF/IN/EV right, +5/5 DF/PF/IN/EV left. 20 degrees inversion and 10 degrees eversion STJ b/l. Ankle ROM less than 10 degrees b/l. Positive pain on palpation to medial right ankle capsule and gutter region Range of motion 1st MPJ less than 15 degrees dorsiflexion bilaterally with crepitus Minimal pain on palpation of the plantar aspect of the left 1st MPJ capsule region and sesamoid apparatus Positive palpation left 2nd toenail Positive palpation to the left 2nd DIPJ region ASSESSMENT 1. Acute gout of left foot, unspecified cause 2. Abscess, toe, left 3. Capsulitis of metatarsophalangeal (MTP) joint of right foot 4. Onychocryptosis 5. Hallux rigidus of right foot 6. Hallux rigidus of left foot 7. Capsulitis of metatarsophalangeal (MTP) joint of left foot 8. Other polyneuropathy PLAN Patient to continue with oral anti - inflammatories as needed for pain and recommended OTC medications such as tylenol or Ibuprofen Continue with oral antibiotics with new antibiotics written Betadine applied daily to the left 2nd toe Patient placed on Medrol Dosepak for suspected gouty arthritis has infection usually does not set in within 12 hours of procedure to this degree or 2 this Range of pain Eric Willoughby DPM documented in this encounter [facility] 03-12-2024 History of Present illness Narrative Patient: Thanh Coleman : 1935 PCP: Oni Jarvis MD SUBJECTIVE Patient presents today with daughter with complaints of left 2nd toenail ingrown toenail that is been present for the past few weeks and states it is achy in nature as noted pus-like drainage from the area. Denies treatment Patient denies n/f/v/c. Patient has hallux rigidus with DJD to bilateral great digits He was to purchase OTC gel inserts and states some improvement to his forefoot regions but also states numbness to the forefoot region in the past. Patient presents today for follow up of capsulitis and synovitis to the right and left first MPJ capsule Currently they rate their pain on a 1-10 scale a 1 with hx of steroid injections in the past. Allergies: Allergies Allergen Reactions Banana Itching Dust Mite Extract Unknown Grass Pollen(K-O-R-T-Swt Rui) Unknown Molds & Smuts Unknown Past Medical History: Past Medical History: Diagnosis Date A-fib ([facility]) CAD (coronary artery disease) ([facility]) Carotid artery stenosis CHF (congestive heart failure) ([facility]) Chronic kidney disease, stage 3 (HCC) ([facility]) History of being hospitalized 11/2022 stroke Hyperlipidemia ([facility]) Hypertension ([facility]) 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 Stroke ([facility]) Medications: Current Outpatient Medications: albuterol HFA 90 mcg/act inhaler, INHALE 2 PUFFS EVERY 6 HOURS NEEDED FOR WHEEZE OR FOR SHORTNESS OF BREATH, Disp: , Rfl: amiodarone (Pacerone) 200 MG tablet, Take 200 mg by mouth Daily, Disp: , Rfl: aspirin 81 MG EC tablet, Take 1 tablet (81 mg) by mouth Daily, Disp: 30 tablet, Rfl: 11 atorvastatin (Lipitor) 40 MG tablet, Take 40 mg by mouth Daily, Disp: , Rfl: cholecalciferol (Vitamin D-3) 50 MCG (1999 UT) capsule, Take 2,000 Units by mouth in the morning., Disp: , Rfl: donepezil (Aricept) 10 MG tablet, Take 10 mg by mouth at bedtime, Disp: , Rfl: Eliquis 2.5 MG tablet, Take 2.5 mg by mouth in the morning and 2.5 mg before bedtime., Disp: , Rfl: ezetimibe (Zetia) 10 MG tablet, Take 10 mg by mouth in the morning., Disp: , Rfl: fenofibrate (Tricor) 54 MG tablet, Take 54 mg by mouth in the morning., Disp: , Rfl: fexofenadine (Johanna) 60 MG tablet, Take 60 mg by mouth in the morning and 60 mg before bedtime. (Patient not taking: Reported on 02/16/2024), Disp: , Rfl: furosemide (Lasix) 40 MG tablet, Take 40 mg by mouth in the morning and 40 mg before bedtime., Disp: , Rfl: gabapentin (Neurontin) 300 MG capsule, Take 300 mg by mouth in the morning and 300 mg in the evening and 300 mg before bedtime. (Patient not taking: Reported on 02/16/2024), Disp: , Rfl: hydrALAZINE (Apresoline) 10 MG tablet, Take 10 mg by mouth in the morning and 10 mg in the evening and 10 mg before bedtime., Disp: , Rfl: ipratropium-albuterol (Duo-Neb) 0.5-2.5 mg/3 mL nebulizer solution, Take 3 mL by nebulization every 8 (eight) hours if needed for shortness of breath, Disp: , Rfl: isosorbide dinitrate (Isordil) 10 MG tablet, Take 10 mg by mouth in the morning and 10 mg in the evening and 10 mg before bedtime., Disp: , Rfl: loratadine (Claritin) 10 MG tablet, Take 10 mg by mouth Daily, Disp: , Rfl: memantine (Namenda) 10 MG tablet, Take 10 mg by mouth Daily, Disp: , Rfl: methylPREDNISolone (Medrol Dospak) 4 MG tablets, Follow schedule on MEDROL PACK package instructions to be used as directed (Patient not taking: Reported on 02/16/2024), Disp: 21 tablet, Rfl: 0 metoprolol succinate XL (Toprol-XL) 100 MG 24 hr tablet, Take 100 mg by mouth in the morning and 100 mg before bedtime., Disp: , Rfl: nicotine (Nicoderm, Step 2) 14 MG/24HR patch, Place 1 patch on the skin 1 (one) time each day at the same time, Disp: , Rfl: nitroglycerin (Nitrostat) 0.4 MG SL tablet, Place 0.4 mg under the tongue, Disp: , Rfl: pantoprazole (ProtoNix) 40 MG EC tablet, Take 40 mg by mouth in the morning and 40 mg before bedtime., Disp: , Rfl: PSYLLIUM HUSK PO, Take 0.4 g by mouth in the morning and 0.4 g before bedtime., Disp: , Rfl: Reguloid 0.52 g capsule, 2 capsules Daily (Patient not taking: Reported on 02/16/2024), Disp: , Rfl: Social History: Social History Socioeconomic History Marital status: Spouse name: Not on file Number of children: Not on file Years of education: Not on file Highest education level: Not on file Occupational History Not on file Tobacco Use Smoking status: Every Day Current packs/day: 0.50 Average packs/day: 0.5 packs/day for 56.0 years (28.0 ttl pk-yrs) Types: Cigarettes Smokeless tobacco: Never Vaping Use Vaping status: Unknown Substance and Sexual Activity Alcohol use: Never Drug use: Never Sexual activity: Defer Other Topics Concern Not on file Social History Narrative Not on file Social Drivers of Health Financial Resource Strain: Low Risk (12/16/2022) Received from [facility] Overall Financial Resource Strain (CARDIA) Difficulty of Paying Living Expenses: Not hard at all Food Insecurity: No Food Insecurity (12/11/2022) Received from [facility] Hunger Vital Sign Worried About Running Out of Food in the Last Year: Never true Ran Out of Food in the Last Year: Never true Transportation Needs: No Transportation Needs (12/11/2022) Received from [facility] PRAPARE - Transportation Lack of Transportation (Medical): No Lack of Transportation (Non-Medical): No Physical Activity: Inactive (12/16/2022) Received from [facility] Exercise Vital Sign Days of Exercise per Week: 0 days Minutes of Exercise per Session: 0 min Stress: No Stress Concern Present (12/16/2022) Received from [facility] [employer] - Occupational Stress Questionnaire Feeling of Stress : Only a little Social Connections: Socially Isolated (12/16/2022) Received from [facility] Social Connection and Isolation Panel [NHANES] Frequency of Communication with Friends and Family: Once a week Frequency of Social Gatherings with Friends and Family: Once a week Attends Yazidi Services: Never Active Member of Clubs or Organizations: No Attends Club or Organization Meetings: Never Marital Status: Intimate Partner Violence: Not on file Housing Stability: Low Risk (12/16/2022) Received [facility] Housing Stability Vital Sign Unable to Pay for Housing in the Last Year: No Number of Places Lived in the Last Year: 1 Unstable Housing in the Last Year: No ROS: GI: denies abdominal pain or ulcerations with anti-inflammatory medication Cardiovascular: denies CP, palpitations, irregular rhythms. Positive history of pacemaker and CAD in the past Muscle skeletal: Denies any back issues OBJECTIVE LE EXAM: DERM: Negative hair growth to b/l feet with good skin turgor noted. Negative openings in skin. Edema left 1st MPJ region Edema to right ankle region Left 2nd toenail region has positive erythema and positive serous sanguinous drainage VASC: Palpable pedal pulsed b/l with warm to cool tibia to toes b/l NEURO: 5.07 [place] Tammie monofilament test intact to digits and forefoot bilaterally 125Hz tuning fork diminished to 1st MPJ bilaterally ORTHO: +5/5 DF/PF/IN/EV right, +5/5 DF/PF/IN/EV left. 20 degrees inversion and 10 degrees eversion STJ b/l. Ankle ROM less than 10 degrees b/l. Positive pain on palpation to medial right ankle capsule and gutter region Range of motion 1st MPJ less than 15 degrees dorsiflexion bilaterally with crepitus Minimal pain on palpation of the plantar aspect of the left 1st MPJ capsule region and sesamoid apparatus Positive palpation left 2nd toenail ASSESSMENT 1. Hallux rigidus of left foot 2. Hallux rigidus of right foot 3. Capsulitis of metatarsophalangeal (MTP) joint of right foot 4. Capsulitis of metatarsophalangeal (MTP) joint of left foot 5. Other polyneuropathy 6. Abscess, toe, left 7. Onychocryptosis 8. Toe pain, left PLAN Patient to continue with oral anti - inflammatories as needed for pain and recommended OTC medications such as tylenol or Ibuprofen Patient to continue with oral anti - inflammatories as needed for pain and recommended OTC medications such as tylenol or Ibuprofen Discussed possible treatment options including a permanent nail avulsion and patient may consider in the future. Performed I and D of abcess with total removal of nail to access infection to the left second toenail. Pt informed of risks and benefits of procedure including infection,pain,bleeding, reoccurance. Pt consents. Next, 3cc of xylocaine 2% plain injected into affected digit for anesthesia. The affected toe was prepped and draped in usual sterile manner and offending nail was removed with minimal blood loss and positive serosanguinous drainage noted. Wound then was flushed with NSS and DSD applied to digit. Pt is to have a prescription for an antibiotic. Eric Willoughby DPM documented in this encounter [facility] 03-09-2024 History of Present illness Narrative Chief Complaint Patient presents with Numbness Stroke Subjective The patient is here post EMG BLE. He has a history of bilateral feet pain, numbness and tingling from his knees distally. He states that the redness to his toe I snot any worse, He continues with memory problems that are stable. HE scored 25/30 on his MMSE but it is sounds like he has more difficulty on day-to-day functioning and short-term memory. The memory is about the same, no worse no better. His grain loader took him off of the ASA and just on the Eliquis. He is not exercising. His foot doctor did not want to see him as surgery was the only thing he could do for the feet until now when he has to see him for the toe around 4:20. HE is now in assisted living. Updated MMSE 22/29, he could not draw picture due to shaking. He is tolerating the Aricept and Namenda. He does try to minimize naps to maximize nighttime sleep Past Medical History: Diagnosis Date A-fib (CMS/HCC) CAD (coronary artery disease) (CMS/HCC) Carotid artery stenosis CHF (congestive heart failure) (CMS/HCC) Chronic kidney disease, stage 3 (HCC) (CMS/HCC) History of being hospitalized 11/2022 stroke Hyperlipidemia (CMS/HCC) Hypertension (CMS/HCC) Myocardial infarct (CMS/HCC) x4 Stroke (CMS/HCC) Past Surgical History: Procedure Laterality Date CARDIAC PACEMAKER PLACEMENT CAROTID STENT stents Family History Problem Relation Name Age of Onset Tuberculosis Mother Diabetes Father Social History Tobacco Use Smoking status: Every Day Current packs/day: 0.50 Average packs/day: 0.5 packs/day for 56.0 years (28.0 ttl pk-yrs) Types: Cigarettes Smokeless tobacco: Never Substance Use Topics Alcohol use: Never Allergies: Banana, Dust mite extract, Grass pollen(k-[id number]-t-swt rui), and Molds & smuts General: No fever or chills HEENT: No nasal congestion or runny nose Pulmonary: No shortness of breath or cough Cardiovascular: No chest pain or palpitations GI: No nausea or vomiting : No dysuria or hematuria Musculoskeletal: No new aches or pains or muscle weakness Infectious: no recurrent fevers or infections Dermatologic: No rashes or skin lesions Neurologic: No new headaches or dizziness other than in HPI Vitals: 03/09/24 1455 BP: 122/76 Pulse: 82 SpO2: 91% Body mass index is 30.68 kg/m . weight: 220 lb Neurologic exam: Mental status: Awake, alert to person, place and time. Recent and remote memory are impaired Attention and concentration are normal. Fund of knowledge is below average HEENT: NC/AT Cranial nerves: CN II: Visual acuity is normal. Visual tomlinson full to confrontation. CN III, IV, : pupils equal round and reactive to light. Extraocular movements intact. No ptosis present. CN V: Facial sensation is normal. CN VII: Full and symmetric facial movement. CN VIII: Hearing is normal to finger rub bilaterally: CN IX and X: Palate elevates symmetrically. Normal gag reflex. CN XI: Shoulder shrug is normal bilaterally. CN XII: Tongue is midline without atrophy or fasciculation. Speech: no aphasia, mild dysarthria Pronator drift: Negative bilateral upper extremity Coordination: Intact, no signs of dysmetria Good finger to nose and rapid alternating movements Sensory: Sensation is intact to light, temperature and vibratory touch throughout four extremities. Pinprick intact in all four extremities. Motor: LUE 5/5 RUE 5/5 LLE 4/5 RLE 5/5 Tone: Physiologic, no tremor, bradykinesia or rigidity DTR: Biceps, BR 2/4 Patellar 1/4 No spasticity Gait: Walker today for stability Romberg's x Assessment/Plan Diagnoses and all orders for this visit: Cerebral infarction, unspecified mechanism (CMS/HCC) Alzheimer disease (CMS/HCC) Atrial fibrillation, unspecified type (CMS/HCC) Inadequate sleep hygiene Peripheral neuropathy, idiopathic Weakness Debility 88-year-old male who was in the hospital on 12/06/22 for a cerebral infarct versus TIA with slurred speech and left facial droop. Patient had a known history of atrial fibrillation. He was on aspirin and Eliquis. Cardiology recently took him off of the aspirin. I think it may be beneficial to stay on 81 mg a day but we will let them take the lead. If he has further events he definitely needs to get back on the aspirin 81 mg daily I understand were trying to reduce any risk of fall and bleed. Patient does have carotid stenosis and that is being monitored by Cardiology CTA 70% stenosis at the left ICA and greater than 70% stenosis of the right ICA. He had mild narrowing of his left M1 segment. His CT was nonacute. He was unable to have an MRI due to the fact that he has iliac stents and is unclear when and where these were placed He has risk factors including age male atrial fibrillation tobacco abuse hypertension hyperlipidemia coronary artery disease peripheral vascular disease carotid stenosis and pacemaker. He has stopped smoking now due to assisted living policy. . He has bilateral foot pain numbness and tingling. 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 The gabapentin has been stopped as he is not having the pain any longer. He is still wobbly on his feet needs to be doing more exercises and has some underlying weakness and debility. He needs to go to the rug cutter helper as he has a potentially ingrown toenail that is causing erythema to his toe and he has an appointment on Friday He reportedly was recommended to have a vena cava filter however he has refused to have it He has underlying memory problems as appears to be more of a mild cognitive impairment that maybe transforming into a dementia process.. His last MMSE was (from ) HE is now in assisted living. Updated MMSE , He is tolerating the Aricept and Namenda. He does have some poor sleep hygiene and needs to let nap less and sleep better at night increasing his daytime exercise would help with that too. . Review and summary of old records: lab work triglycerides of 139 cholesterol 103 HDL 34 LDL 41 and hemoglobin A1c of 5.2. echo 01/2024 EF 60-65%, no mention of thrombus, mass, or vegetation, normal LV and RV, pacemaker RV, no significant valve disease, mild PA HTN Cardio note 07/08/2023 states pt presented to the ER 02/16/2023 with a Hgb 4.7, black tarry stools, SOB, fatigue and weakness. Last Hgb 8.3 02/20/2023. Stress test 03/27/2023 abnormal, pt declined cardiac cath. Cardio decided pacemaker was pacing well and asymptomatic from afib standpoint and would remain off eliquis due to anemia history. At one point in time he was on apixaban 2.5 mg daily and aspirin 81 mg daily along with a statin and Zetia. He then no longer had the asa or eliquis in his med list. Apparently, he did not go with orders for either to [facility] we were told. 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 I did obtain the cardio note as he had seen them the week before the last visit. Cardio did not feel he needed to continue the Eliquis. See note above. He did state that he had a GI bleed in January 2023. I was able to find those records. GI note from February 2023 was reviewed. He was admitted for a hemoglobin of 4.5. 02/16/2023 normal EGD, colonoscopy did not reveal active bleeding, however 17 polyps were found and unable to be removed. He was to have a repeat colonscopy in 3 months. He denied taking blood thinners at that visit. Dtg was with him for this GI visit. He was ordered iron studies to assess for JANNIE. He needed to have his follow up colonoscopy to ensure no bleeding and then benefit vs risk on taking asa. Between visits Dtg was made aware that he was not on either of these meds. He had not had follow up with GI. She was informed he was to have follow up and repeat colonoscopy. She stated he did not have a GI provider. She was called back and reminded that they did see Carlos Castro CNP, at [facility] and should call this office young. She was also to come to the next follow up and did not. She stated she did not know about it. We then did discuss his multiple risk factors for stroke and patient and daughter decided to take the baby aspirin daily and monitor for signs and symptoms of bleeding. . . . Plan EMG showed severe sensory motor neuropathy Keep apt with podiatry on Friday Continue the atorvastatin and Zetia Continue eliquis Allergy stopped the aspirin. I would typically recommend continuing it due the fact that he had this TIA and he has a carotid stenosis. If he has further events we definitely need to restart it. Exercising every day and use the walker. We will need to periodically monitor the carotid Stenosis (70% on the left and greater than 70% on the right), can leave to cardio continue with cardiology Continue with no smoking Iontrol secondary stroke risk factors More active during the day Minimize napping to maximize nighttime sleep cont the Aricept 10 mg daily continue Namenda 10mg QHS MMSE at next visit Consider neuropsych testing This was discussed with the patient, all questions were answered and they agreed with the treatment plan. The patient is to call with any worsening of the condition or new symptoms. Return to clinic: 3 months documented in this encounter [facility] 03-01-2024 History of Present illness Narrative Images from the original note were not included. Reason for Appointment: EMG Patient: Thanh Coleman : 1935 EMG Computer: [email or web address] Referring Physician: Dr. Pamela Peguero EMG: BLE supercharger mechanic: Tonia Bailey CMA Office Location: [place] Reason for EMG: c/o paresthesia in the legs from the knees down. Ambulates with a walker. Stiffness in the legs. No hx of DM, Takes Eliquis and ASA Comments: Procedure explained to the patient who expressed understanding documented in this encounter [facility] 02-16-2024 History of Present illness Narrative Images from the original note were not included. Chief Complaint Patient presents with Numbness Tingling Stroke Memory Loss Subjective Don is a resident at [facility]. Patient was seen as an inpatient at [facility] after waking up one morning to lower extremity numbness from his knees down. No weakness. Patient is back to baseline. He denies any vision changes or slurred speech. It was found that the patient does have Afib. Cardiology did change up his medications. He states the leg numbness is not as bad as it was in the hospital. Past Medical History: Diagnosis Date A-fib ([facility]) CAD (coronary artery disease) ([facility]) Carotid artery stenosis CHF (congestive heart failure) ([facility]) Chronic kidney disease, stage 3 ([facility]) ([facility]) History of being hospitalized 11/2022 stroke Hyperlipidemia ([facility]) Hypertension ([facility]) 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 Stroke ([facility]) Past Surgical History: Procedure Laterality Date CARDIAC PACEMAKER PLACEMENT CAROTID STENT stents Family History Problem Relation Name Age of Onset Tuberculosis Mother Diabetes Father Social History Tobacco Use Smoking status: Every Day Current packs/day: 0.50 Average packs/day: 0.5 packs/day for 56.0 years (28.0 ttl pk-yrs) Types: Cigarettes Smokeless tobacco: Never Substance Use Topics Alcohol use: Never Allergies: Banana, Dust mite extract, Grass pollen([id number] rui), and Molds & smuts General: No fever or chills HEENT: No nasal congestion or runny nose Pulmonary: No shortness of breath or cough Cardiovascular: No chest pain or palpitations GI: No nausea or vomiting : No dysuria or hematuria Musculoskeletal: No new aches or pains or muscle weakness Infectious: no recurrent fevers or infections Dermatologic: No rashes or skin lesions Neurologic: No new headaches or dizziness other than in HPI Vitals: 02/16/24 1342 BP: 130/70 Pulse: 80 Body mass index is 30.42 kg/m . weight: 212 lb Neurologic exam: Mental status: Awake, alert to person, place and time. Recent and remote memory are impaired Attention and concentration are normal. Fund of knowledge is below average HEENT: NC/AT Cranial nerves: CN II: Visual acuity is normal. Visual tomlinson full to confrontation. CN III, IV, : pupils equal round and reactive to light. Extraocular movements intact. No ptosis present. CN V: Facial sensation is normal. CN VII: Full and symmetric facial movement. CN VIII: Hearing is normal to finger rub bilaterally: CN IX and X: Palate elevates symmetrically. Normal gag reflex. CN XI: Shoulder shrug is normal bilaterally. CN XII: Tongue is midline without atrophy or fasciculation. Speech: no aphasia, mild dysarthria Pronator drift: Negative bilateral upper extremity Coordination: Intact, no signs of dysmetria Good finger to nose and rapid alternating movements Sensory: Sensation is intact to light, temperature and vibratory touch throughout four extremities. Pinprick intact in all four extremities. Motor: LUE 5/5 RUE 5/5 LLE 4/5 RLE 5/5 Tone: Physiologic, no tremor, bradykinesia or rigidity DTR: Biceps, BR 2/4 Patellar 1/4 No spasticity Gait: Walker today for stability Romberg's x Assessment/Plan Diagnoses and all orders for this visit: Paresthesias - EMG 2 Extremities; Future Memory loss Atrial fibrillation, unspecified type (CMS/HCC) Cerebral infarction, unspecified mechanism (CMS/HCC) 88-year-old male who was in the hospital on 12/06/22 for a cerebral infarct versus TIA with slurred speech and left facial droop. Patient had a known history of atrial fibrillation. He had been having some memory issues prior to that. He was found to have on CT a 70% stenosis at the left ICA and greater than 70% stenosis of the right ICA. He had mild narrowing of his left M1 segment. His CT was nonacute. He was unable to have an MRI due to the fact that he has iliac stents and is unclear when and where these were placed so it unclear if there are MRI compatible or not. To clear the patient to TIA or stroke since we cannot get the MRI regardless he was maximally treated for stroke. He then was no longer on asa or eliquis as noted below. He has risk factors including age male atrial fibrillation tobacco abuse hypertension hyperlipidemia coronary artery disease peripheral vascular disease carotid stenosis and pacemaker. He has stopped smoking now due to assisted living policy. . He has a history of bilateral feet pain, numbness and tingling from his knees distally. We were monitoring this. He was gabapentin and no longer is listed in his medications. He was told he has arthritis by rug cutter helper. He then presented to the ER 01/27/24 with bilateral numbness and tingling in upper and lower extremities. He had seen cardio a few days prior and was recommended to be admitted for treatment of afib and did not go. He had been off Eliquis. His echo revealed an ejection fraction of 25-30 percent, severe global hypokinesis of LV, IVC was mildly dilated. He was treated for afib and discharged on p.o. amiodarone as well as Eliquis 2.5 amongst other medicines by Cardiology for his heart failure. He continued his asa and statin as well. Neuro recommended EMG in 2-4 weeks as he had some mild edema in lower legs. H&H 11.5/37.3, GFR 33. I will now order EMG BLE. . He continues with memory problems that are stable. He was having issues prior to all of this. HE scored 25/30 on his MMSE but it is sounds like he has more difficulty on day-to-day functioning and short-term memory. HE is now in assisted living. Updated MMSE , he could not draw picture due to shaking. He is tolerating the Aricept and Namenda. He does try to minimize naps to maximize nighttime sleep but he will still sleep some during the day. He does complain of fatigue and no energy despite sleeping well. This is stable. . Review and summary of old records: lab work triglycerides of 139 cholesterol 103 HDL 34 LDL 41 and hemoglobin A1c of 5.2. echo 01/2024 EF 60-65%, no mention of thrombus, mass, or vegetation, normal LV and RV, pacemaker RV, no significant valve disease, mild PA HTN Cardio note 07/08/2023 states pt presented to the ER 02/16/2023 with a Hgb 4.7, black tarry stools, SOB, fatigue and weakness. Last Hgb 8.3 02/20/2023. Stress test 03/27/2023 abnormal, pt declined cardiac cath. Cardio decided pacemaker was pacing well and asymptomatic from afib standpoint and would remain off eliquis due to anemia history. At one point in time he was on apixaban 2.5 mg daily and aspirin 81 mg daily along with a statin and Zetia. He then no longer had the asa or eliquis in his med list. Apparently, he did not go with orders for either to [facility] we were told. 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 I did obtain the cardio note as he had seen them the week before the last visit. Cardio did not feel he needed to continue the Eliquis. See note above. He did state that he had a GI bleed in January 2023. I was able to find those records. GI note from February 2023 was reviewed. He was admitted for a hemoglobin of 4.5. 02/16/2023 normal EGD, colonoscopy did not reveal active bleeding, however 17 polyps were found and unable to be removed. He was to have a repeat colonscopy in 3 months. He denied taking blood thinners at that visit. Dtg was with him for this GI visit. He was ordered iron studies to assess for JANNIE. He needed to have his follow up colonoscopy to ensure no bleeding and then benefit vs risk on taking asa. Between visits Dtg was made aware that he was not on either of these meds. He had not had follow up with GI. She was informed he was to have follow up and repeat colonoscopy. She stated he did not have a GI provider. She was called back and reminded that they did see Carlos Castro CNP, at [facility] and should call this office young. She was also to come to the next follow up and did not. She stated she did not know about it. We then did discuss his multiple risk factors for stroke and patient and daughter decided to take the baby aspirin daily and monitor for signs and symptoms of bleeding. . . . Plan Hospital records reviewed: ED note, neuro consult, DC summary, echo, labs noted Reviewed Caden Evans paperwork sent Order EMG BLE Continue the atorvastatin and Zetia Continue baby asa and eliquis We will need to periodically monitor the carotid Stenosis (70% on the left and greater than 70% on the right), can leave to cardio continue with cardiology Continue with no smoking Increase home exercise program Control secondary stroke risk factors More active during the day Minimize napping to maximize nighttime sleep cont the Aricept 10 mg daily continue Namenda 10mg QHS Monitor for any progression Consider neuropsych testing This was discussed with the patient, all questions were answered and they agreed with the treatment plan. The patient is to call with any worsening of the condition or new symptoms. Return to clinic: 4-6 weeks with daughter present documented in this encounter [facility] 01-29-2024 Hospital Discharge instructions Follow Up Care 01/29/2024 10:27:46 With:Nanci Jarvis MD, [facility], MED Address: [address] [place] [phone] Business (1) When:03/31/2021 [facility] Medicine [place] 01-27-2024 Note Discharge Summary Admission and Discharge Information Admit Date/Time:01/23/2024 11:35 Admitting Physician - Lavell Siegel DO Consulting Physician - Marquez Martinez MD [facility] Cardio, XXXX Mine PILLAI, Stew Admitting Diagnoses: Discharge Diagnoses 1. Atrial fibrillation with RVR, 01/23/2024 2. Acute heart failure with reduced ejection fraction (HFrEF, <= 40%), 01/24/2024 3. Numbness, 01/23/2024 4. Coronary artery disease, 01/23/2024 5. Hyperlipidemia, 01/23/2024 6. HTN (hypertension), 01/23/2024 7. Mild pulmonary hypertension, 01/23/2024 8. Chronic obstructive pulmonary disease (COPD), 01/23/2024 9. Carotid stenosis, bilateral, 01/23/2024 10. Stage 3b chronic kidney disease (CKD), 01/23/2024 11. Dementia, 01/23/2024 Paresthesia, 01/23/2024 Tachycardia, 01/23/2024 Procedure History Colonoscopy (02/17/2023), EGD - esophagogastroduodenoscopy (02/16/2023), Cardiac pacemaker. Hospital Course 88-year-old male with past medical history of dementia, carotid stenosis, COPD, chronic respiratory failure, DANIEL, HLD, pulmonary hypertension, paroxysmal A-fib status post pacemaker, CKD 3B, presented to ER on 01/22 due to lower extremity numbness that started earlier that morning. Patient denies any chest pain, palpitations, shortness of breath, nausea vomiting diarrhea, fever chills, urinary symptoms or other symptoms at this time. History is limited due to patient's history of dementia. 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 Patient is not on anticoagulation due to high fall risk. In ED patient was found to be in A-fib RVR. Patient was given bolus dose of amiodarone. Patient's creatinine was 2.0, BBC 12.8, EKG showed A-fib RVR, chest x-ray negative for acute processes. Patient was admitted for further workup and treatment. Cardiology was consulted and followed patient. Amiodarone was eventually stopped. However was restarted after echo. Echo found patient had new reduced ejection fraction heart failure with EF 25 to 30%. Severe global hypokinesis of LV. IVC was mildly dilated. Patient was switched to IV Lasix. Patient diuresed well. Patient was eventually switched over to p.o. Lasix. Patient was started on p.o. amiodarone as well as Eliquis 2.5 mg per cardiology. Due to reduced ejection fraction heart failure patient was also started on isosorbide 3 times daily, hydralazine 3 times daily, metoprolol was reduced. Patient's symptoms improved. Because patient's initial complaint on arrival was leg numbness neurology was consulted and followed patient. Neurology stated was likely due to mild edema and should follow-up with neurology in 2 to 4 weeks for possible EMG. PT/OT did work with patient and stated he was able to walk and complete daily activities by himself. Due to dementia did require monitoring. Patient stable to go back to assisted living. Patient's symptoms improved throughout stay. Diagnosis and treatment plan was discussed with patient as well as daughter who agreed except the plan of treatment. Patient stable at discharge. Medication changes Eliquis 2.5 mg twice daily Amiodarone loading dose then 200 mg daily Lasix was changed to 40 mg twice daily due to HFrEF Isosorbide 10 mg 3 times daily due to HFrEF Hydralazine 10 mg 3 times daily due to HFrEF Metoprolol decreased to 25 mg twice daily Follow-up appointments Cardiology in 2 to 3 weeks PCP 3 to 5 days Neurology 2 to 4 weeks for EMG Discharge time 36 minutes which included extensive conversation with patient as well as daughter about diagnosis and treatment plan. Along with communication with consultants, nursing, case management. Services Consulted Consult to Cardiology - Ordered -- 01/23/24 11:41:00 EDT, afib RVR, seen in office on 01/20 started on amio, Consult and Co-manage, [facility] Consult to Neurology - Ordered -- 01/23/24 14:21:00 EDT, lower extremity numbness, Consult and Co-manage Physical Exam Vitals & Measurements T: 36.4 ?C(Axillary) TMIN: 36.3 ?C(Axillary) TMAX: 36.8 ?C(Oral) HR: 75(Monitored) RR: 16 BP: 149/80 SpO2: 91% WT: 99.7 kg General: NAD Skin: Warm, dry, hematomoa right forearm Head: No trauma, normocephalic Neck: Trachea midline, supple, negative for JVD Eye: Conjunctive are clear, clear sclera , EOMI ENMT: oral mucosa moist, no lesions or edema nose or external ears Cardiovascular: IRR, S1-S2 present, negative for murmurs rubs or gallops Respiratory: Lungs clear to auscultation, bilateral symmetric movement, negative for wheezes rales or rhonchi Chest wall: no deformity. Gastrointestinal: Abdomen soft, bowel sounds present, nontender to palpation Back: No tenderness Extremities: Range of motion intact, no edema Neurological: awake, alert, speech normal, cranial nerves II through XII intact, no sensory defects, alert and oriented x3 Psychiatric: cooperative, affect a (more content not included)... [facility] Comment on above: Result Comment: Elec tronically Signed By: Lavell Siegel DO\.br\Date and Time Signed: 01/27/24 15:45 EDT 01-27-2024 Evaluation + Plan note Extrac michael from: Title:Discharge Note Author:Lavell Siegel DO Date:01/27/24 Discharge To, Anticipated II - Home independently Prescriptions Adult nebulizer with mask and tubing, See Instructions amiodarone 200 mg Tab, 200 mg= 1 tab(s), Oral, BID amiodarone 200 mg Tab, 200 mg= 1 tab(s), Oral, Daily apixaban 2.5 mg oral tablet, 2.5 mg= 1 tab(s), Oral, BID atorvastatin 40 mg Tab, 40 mg= 1 tab(s), Oral, Daily, 5 refills hydrALAZINE 10 mg Tab, 10 mg= 1 tab(s), Oral, TID isosorbide dinitrate 10 mg Tab, 10 mg= 1 tab(s), Oral, TID Lasix 40 mg Tab, 40 mg= 1 tab(s), Oral, BID metoprolol succinate 25 mg ER Tab, 25 mg= 1 tab(s), Oral, BID nicotine 21 mg/24 hr Transderm ER Film, 1 patch(es), Topical, Daily Pantoprazole [address] Tab, 40 mg= 1 tab(s), Oral, BID, 5 refills Home albuterol, See Instructions albuterol-ipratropium, See Instructions Johanna Aspirin Low Dose 81 mg oral tablet, chewable donepezil 10 mg Tab, 10 mg= 1 tab(s), Oral, Once a day (at bedtime) ezetimibe 10 mg Tab, 10 mg= 1 tab(s), Oral, Daily fenofibrate 54 mg oral tablet, 54 mg= 1 tab(s), Oral, Daily memantine 10 mg Tab Metamucil nitroglycerin 0.4 mg sublingual Tab, 0.4 mg= 1 tab(s), SubLingual, q5min, PRN Vitamin D3 2000 intl units oral Tab, 50 mcg, Oral, Daily With When Contact Information Nanci Jarvis MD, [facility], MED [phone] Additional Instructions: Juan PILLAI, HALLEY Zayas Within 2 to 4 weeks [place] [phone] [email or web address] [address]- Additional Instructions: Atrial Fibrillation, [id number] Extracted from: Title:Progress/SOAP Note Author:Alma PILLAI, Mikha il D Date:01/27/24 1. Atrial fibrillation with RVR (I48.91: Unspecified atrial fibrillation) The patient is AV paced now. Continue low-dose Eliquis. Continue amiodarone. Continue metoprolol succinate. 2. Acute heart failure with reduced ejection fraction (HFrEF, <= 40%) (I50.21: Acute systolic (congestive) heart failure) Appears more normovolemic by physical exam. Can switch to p.o. Lasix. Can add low-dose hydralazine/isosorbide dinitrate for afterload reduction. No indication for ACEI due to renal failure The patient declined invasive assessment in the past. 3. Numbness (R20.0: Anesthesia of skin) 4. Coronary artery disease (I25.10: Atherosclerotic heart disease of [place] coronary artery without angina pectoris) Continue statin. Continue low-dose aspirin. 5. Hyperlipidemia (E78.5: Hyperlipidemia, unspecified) 6. HTN (hypertension) (I10: Essential (primary) hypertension) 7. Mild pulmonary hypertension (I27.20: Pulmonary hypertension, unspecified) 8. Chronic obstructive pulmonary disease (COPD) (J44.9: Chronic obstructive pulmonary disease, unspecified) 9. Carotid stenosis, bilateral (I65.23: Occlusion and stenosis of bilateral carotid arteries) 10. Stage 3b chronic kidney disease (CKD) (N18.32: Chronic kidney disease, stage 3b) 11. Dementia (F03.90: Unspecified dementia, unspecified severity, without behavioral disturbance, psychotic disturbance, mood disturbance, and anxiety) Extracted from: Title:APSO Note Author:Lavell Sieegl DO e:01/26/24 1. Atrial fibrillation with RVR (I48.91: Unspecified atrial fibrillation) improved hx of pacemaker Amiodarone 200mg for 2 weeks then 200 mg daily per cardio Cardio consulted following eliquis 2.5mg bid Metoprolol 25 mg twice daily Telemetry Ordered: [facility] Care/Day Moderate 35 Minutes [id number] 2. Acute heart failure with reduced ejection fraction (HFrEF, <= 40%) (I50.21: Acute systolic (congestive) heart failure) Echo shows EF of 25 to 30%. Severe global hypokinesis of LV. IVC mildly dilated. -This is reduced since last echo Strict I's and O's, daily weights lasix 40mg BID will switch to PO Discussed treatment plan with grain loader in length. 3. Numbness (R20.0: Anesthesia of skin) neuro consulted and saw patient like 2/2 neuropathy will need o/p EMG 4. Coronary artery disease (I25.10: Atherosclerotic heart disease of [place] coronary artery without angina pectoris) ASA Statin 5. Hyperlipidemia (E78.5: Hyperlipidemia, unspecified) Statin 6. HTN (hypertension) (I10: Essential (primary) hypertension) monitor metop 7. Mild pulmonary hypertension (I27.20: Pulmonary hypertension, unspecified) appears RVSP as increased to 51 mmhg pt now has moderated pulm hypertension 8. Chronic obstructive pulmonary disease (COPD) (J44.9: Chronic obstructive pulmonary disease, unspecified) duonebs PRN 9. Carotid stenosis, bilateral (I65.23: Occlusion and stenosis of bilateral carotid arteries) Statin Aspirin 10. Stage 3b chronic kidney disease (CKD) (N18.32: Chronic kidney disease, stage 3b) Baseline creatinine 1.7-1.9 11. Dementia (F03.90: Unspecified dementia, unspecified severity, without behavioral disturbance, psychotic disturbance, mood disturbance, and anxiety) Memantine Donepezil Orders: amiodarone, 200 mg = 1 tab(s), Tab, Oral, BID for 14 day(s), Stop date 02/08/24 10:29:00 EDT, Routine, Start date 01/25/24 10:30:00 EDT apixaban, 2.5 mg = 1 tab(s), Tab, Oral, BID, Routine, Start date 01/25/24 10:30:00 EDT furosemide, 20 mg = 2 mL, Injection, IV Push, Once, Stop date 01/25/24 10:00:00 EDT, Routine, Start date 01/25/24 10:00:00 EDT, 01/25/24 9:49:00 EDT furosemide, 40 mg = 4 mL, Injection, IV Push, BID, Routine, Start date 01/25/24 17:00:00 EDT, 01/25/24 9:51:00 EDT Basic Metabolic Panel Basic Metabolic Panel CBC w/ Auto Diff CBC w/ Auto Diff eGFR Extracted from: Title:Progress/SOAP Note Author:Aura Blount MD Date:01/25/24 1. Atrial fibrillation with RVR (I48.91: Unspecified atrial fibrillation) Patient continues to be in A-fib Recommend continuing loading with p.o. amiodarone 200 mg twice daily for 14 days followed by 200 mg a day Recommend switching from IV heparin to Eliquis 2.5 mg twice daily for thromboembolic prophylaxis (H&H has been stable on heparin infusion) Continue metoprolol tartrate 25 mg twice daily 2. Acute heart failure with reduced ejection fraction (HFrEF, <= 40%) (I50.21: Acute systolic (congestive) heart failure) Patient has bilateral basilar crackles-will plan to continue with IV Lasix (40 mg twice daily) for another 24 hours Daily basic metabolic panel with magnesium Strict input output charting and daily weight 3. Numbness (R20.0: Anesthesia of skin) 4. Coronary artery disease (I25.10: Atherosclerotic heart disease of [place] coronary artery without angina pectoris) Continue aspirin 81 mg a day, Lipitor 40 mg a day and Zetia 10 mg a day 5. Hyperlipidemia (E78.5: Hyperlipidemia, unspecified) 6. HTN (hypertension) (I10: Essential (primary) hypertension) 7. Mild pulmonary hypertension (I27.20: Pulmonary hypertension, unspecified) 8. Chronic obstructive pulmonary disease (COPD) (J44.9: Chronic obstructive pulmonary disease, unspecified) 9. Carotid stenosis, bilateral (I65.23: Occlusion and stenosis of bilateral carotid arteries) 10. Stage 3b chronic kidney disease (CKD) (N18.32: Chronic kidney disease, stage 3b) 11. Dementia (F03.90: Unspecified dementia, unspecified severity, without behavioral disturbance, psychotic disturbance, mood disturbance, and anxiety) Extracted from: Title:APSO Note Author:Lavell Siegel DO Arben e:01/25/24 1. Atrial fibrillation with RVR (I48.91: Unspecified atrial fibrillation) improved hx of pacemaker Amiodarone drip since 01/22, will switch to PO Cardio consulted following Heparin drip will switch to PO eliquis Metoprolol 25 mg twice daily Telemetry Ordered: [facility] Care/Day Moderate 35 Minutes [id number] 2. Acute heart failure with reduced ejection fraction (HFrEF, <= 40%) (I50.21: Acute systolic (congestive) heart failure) Echo shows EF of 25 to 30%. Severe global hypokinesis of LV. IVC mildly dilated. -This is reduced since last echo Strict I's and O's, daily weights Will continue diuresing with 40 mg IV twice daily today and likely switch to p.o. tomorrow. Discussed treatment plan with grain loader in length. 3. Numbness (R20.0: Anesthesia of skin) neuro consulted and saw patient like 2/2 neuropathy will need o/p EMG 4. Coronary artery disease (I25.10: Atherosclerotic heart disease of [place] coronary artery without angina pectoris) ASA Statin 5. Hyperlipidemia (E78.5: Hyperlipidemia, unspecified) Statin 6. HTN (hypertension) (I10: Essential (primary) hypertension) Monitor Metop 7. Mild pulmonary hypertension (I27.20: Pulmonary hypertension, unspecified) appears RVSP as increased to 51 mmhg pt now has moderated pulm hypertension 8. Chronic obstructive pulmonary disease (COPD) (J44.9: Chronic obstructive pulmonary disease, unspecified) duonebs PRN 9. Carotid stenosis, bilateral (I65.23: Occlusion and stenosis of bilateral carotid arteries) Statin Aspirin 10. Stage 3b chronic kidney disease (CKD) (N18.32: Chronic kidney disease, stage 3b) Baseline creatinine 1.7-1.9 11. Dementia (F03.90: Unspecified dementia, unspecified severity, without behavioral disturbance, psychotic disturbance, mood disturbance, and anxiety) Memantine Donepezil Orders: amiodarone, 200 mg = 1 tab(s), Tab, Oral, BID for 14 day(s), Stop date 02/08/24 20:59:00 EDT, Routine, Start date 01/25/24 21:00:00 EDT, 01/25/24 9:51:00 EDT apixaban, 2.5 mg = 1 tab(s), Tab, Oral, BID, Routine, Start date 01/25/24 21:00:00 EDT, 01/25/24 10:18:00 EDT furosemide, 20 mg = 2 mL, Injection, IV Push, Once, Stop date 01/25/24 10:00:00 EDT, Routine, Start date 01/25/24 10:00:00 EDT, 01/25/24 9:49:00 EDT furosemide, 40 mg = 4 mL, Injection, IV Push, BID, Routine, Start date 01/25/24 17:00:00 EDT, 01/25/24 9:51:00 EDT heparin, 5,000 unit(s) = 1 mL, Injection, IV Push, Once, Stop date 01/24/24 18:00:00 EDT, Start date 01/24/24 18:00:00 EDT Basic Metabolic Panel Basic Metabolic Panel CBC w/ Auto Diff CBC w/ Auto Diff eGFR Elevate Head of Bed PTT PTT Extracted from: Title:Progress/SOAP Note Author:Aura Blount MD Date:01/24/24 1. Atrial fibrillation with RVR (I48.91: Unspecified atrial fibrillation) Continue IV amiodarone Continue heparin infusion -Continue p.o. metoprolol tartrate 25 mg twice daily Start p.o. amiodarone 200 mg twice daily (with food) If patient has stable H&H without any significant downtrend we will switch from heparin to NOAC from tomorrow morning 2. Acute heart failure with reduced ejection fraction (HFrEF, <= 40%) (I50.21: Acute systolic (congestive) heart failure) Clinically no significant volume overload Stop IV Lasix Start p.o. Lasix 40 mg twice daily Daily basic metabolic panel 3. Numbness (R20.0: Anesthesia of skin) 4. Coronary artery disease (I25.10: Atherosclerotic heart disease of [place] coronary artery without angina pectoris) Continue home dose of aspirin 81 mg a day Continue Lipitor 40 mg a day Continue Zetia 10 mg a day DC fenofibrate 5. Hyperlipidemia (E78.5: Hyperlipidemia, unspecified) 6. HTN (hypertension) (I10: Essential (primary) hypertension) 7. Mild pulmonary hypertension (I27.20: Pulmonary hypertension, unspecified) 8. Chronic obstructive pulmonary disease (COPD) (J44.9: Chronic obstructive pulmonary disease, unspecified) 9. Carotid stenosis, bilateral (I65.23: Occlusion and stenosis of bilateral carotid arteries) 10. Stage 3b chronic kidney disease (CKD) (N18.32: Chronic kidney disease, stage 3b) 11. Dementia (F03.90: Unspecified dementia, unspecified severity, without behavioral disturbance, psychotic disturbance, mood disturbance, and anxiety) Extracted from: Title:APSO Note Author:Lavell Siegel DO Arben e:01/24/24 1. Atrial fibrillation with RVR (I48.91: Unspecified atrial fibrillation) improved hx of pacemaker Amiodarone drip since 01/22 Cardio consulted following Heparin drip Metoprolol 25 mg twice daily Telemetry Ordered: [facility] Hospital Care/Day High 50 Minutes [id number] 2. Acute heart failure with reduced ejection fraction (HFrEF, <= 40%) (I50.21: Acute systolic (congestive) heart failure) Echo shows EF of 25 to 30%. Severe global hypokinesis of LV. IVC mildly dilated. -This is reduced since last echo Strict I's and O's, daily weights Lasix 20 mg IV twice daily 3. Numbness (R20.0: Anesthesia of skin) Neurology consulted Possible MRI Likely secondary to neuropathy 4. Coronary artery disease (I25.10: Atherosclerotic heart disease of [place] coronary artery without angina pectoris) Aspirin Statin 5. Hyperlipidemia (E78.5: Hyperlipidemia, unspecified) Statin Zetia 6. HTN (hypertension) (I10: Essential (primary) hypertension) Monitor Metoprolol 7. Mild pulmonary hypertension (I27.20: Pulmonary hypertension, unspecified) appears RVSP as increased to 51 mmhg pt now has moderated pulm hypertension 8. Chronic obstructive pulmonary disease (COPD) (J44.9: Chronic obstructive pulmonary disease, unspecified) duonebs PRN 9. Carotid stenosis, bilateral (I65.23: Occlusion and stenosis of bilateral carotid arteries) Statin Aspirin 10. Stage 3b chronic kidney disease (CKD) (N18.32: Chronic kidney disease, stage 3b) Baseline creatinine 1.7-1.9 Creatinine has improved to 1.7 from 2.0 on admission 11. Dementia (F03.90: Unspecified dementia, unspecified severity, without behavioral disturbance, psychotic disturbance, mood disturbance, and anxiety) Memantine Donepezil Orders: acetaminophen, 650 mg = 2 tab(s), Tab, Oral, q6hr PRN Pain, Routine, Start date 01/23/24 14:20:00 EDT, 01/23/24 14:20:00 EDT furosemide, 20 mg = 2 mL, Injection, IV Push, BID, Routine, Start date 01/23/24 17:00:00 EDT, 01/23/24 16:37:00 EDT heparin, 7,768 unit(s) = 0.78 mL, Injection, IV Push, Once, Stop date 01/23/24 19:00:00 EDT, Routine, Start date 01/23/24 19:00:00 EDT, Maximum 10,000 units. Use table #1 on Reference Text., 01/23/24 18:08:00 EDT heparin 25,000 unit(s) [18 unit/kg/hr] + Dextrose 5% in Water intravenous solution 500 mL, 500 mL, IV, 34.96 mL/hr, Routine, Start date 01/23/24 18:08:00 EDT, 14.3 hour(s), Total volume (mL): 500, Titrate per high intensity heparin protocol (Table 3 on reference text), 97.1 kg, Max INITIAL rate = 2000 unit(s)/hr (40 mL/hr). May go above thi... metoprolol, 25 mg = 1 tab(s), Tab-ER, Oral, BID, Routine, Start date 01/23/24 21:00:00 EDT, 01/23/24 16:37:00 EDT morphine, 2 mg = 1 mL, Injection, IV Push, q4hr PRN Pain for 5 day(s), Stop date 01/28/24 14:19:00 EDT, Routine, Start date 01/23/24 14:20:00 EDT, 01/23/24 14:20:00 EDT ondansetron, 4 mg = 2 mL, Injection, IV Push, q6hr PRN Nausea, Routine, Start date 01/23/24 14:20:00 EDT, 01/23/24 14:20:00 EDT senna, 17.2 mg = 2 tab(s), Tab, Oral, BID PRN Other (see comment), Routine, Start date 01/23/24 14:20:00 EDT, 01/23/24 14:20:00 EDT B-Type Natriuretic Peptide Basic Metabolic Panel Basic Metabolic Panel Below the Knee Intermittent Pneumatic Compression Device Cardiac Diet Cardiac Monitoring CBC w/ Auto Diff CBC w/ Auto Diff Communication Order Physician to Nursing Consult to Cardiology Consult to Neurology Echo Transthoracic Complete Education Fall Risk eGFR Elevate Head of Bed Occupational Therapy Evaluate Patient, Develop a Plan of Care and Implement Plan Physical Therapy Evaluate Patient, Develop a Plan of Care and Implement Plan Precautions PT PTT PTT Referral to Resource Center Resuscitation Status - DNR CCA (Comfort Care Arrest) Vital Signs Weight Extracted from: Title:Consult Note- Neurology Author:Vicki Reyes RN Date:01/24/24 patient is an 88-year-old ma le with history of lower extremity numbness over the past several weeks which has improved. Patient does not have any significant sensory loss on today's neurological exam. Patient does have diminished reflexes. Patient may have a peripheral nerve process such as peripheral neuropathy or polyradiculopathy contributing to his symptoms. I recommend patient evaluation with physical therapy for assessment of strength and balance. I recommend obtaining an EMG as an outpatient to assess for peripheral nerve process. The patient does not have findings consistent with an intracranial process contributing to his symptoms. The patient can follow-up with adult outpatient neurology clinic. 1. Atrial fibrillation with RVR, (I48.91: Unspecified atrial fibrillation)Atrial fibrillation 2. Numbness (R20.0: Anesthesia of skin) 3. Coronary artery disease (I25.10: Atherosclerotic heart disease of [place] coronary artery without angina pectoris) 4. Hyperlipidemia (E78.5: Hyperlipidemia, unspecified) 5. Mild pulmonary hypertension (I27.20: Pulmonary hypertension, unspecified) 6. Chronic obstructive pulmonary disease (COPD) (J44.9: Chronic obstructive pulmonary disease, unspecified) 7. Carotid stenosis, bilateral (I65.23: Occlusion and stenosis of bilateral carotid arteries) 8. Stage 3b chronic kidney disease (CKD) (N18.32: Chronic kidney disease, stage 3b) 9. Dementia (F03.90: Unspecified dementia, unspecified severity, without behavioral disturbance, psychotic disturbance, mood disturbance, and anxiety) Encounter for smoking cessation counseling (Z71.6: Tobacco abuse counseling) HTN (hypertension) (I10: Essential (primary) hypertension) Extracted from: Title:Admission H & P Author:Lavell Siegel DO Date:01/23/24 DVT PPx Patient will be admi tted under inpatient status due to estimated length of stay greater than 2 midnights. All images, labs, EKGs were reviewed 1. Atrial fibrillation with RVR (I48.91: Unspecified atrial fibrillation) Status post amiodarone in ER Consult cardio Metoprolol Not on anticoagulation due to high bleed risk Telemetry Check echo Ordered: Initial Hospital Care/Day Moderate 55 Minutes 23095 2. Numbness (R20.0: Anesthesia of skin) Consult neurology consider MRI likely 2/2 neuropathy 3. Coronary artery disease (I25.10: Atherosclerotic heart disease of [place] coronary artery without angina pectoris) Aspirin Statin 4. Hyperlipidemia (E78.5: Hyperlipidemia, unspecified) Statin Zetia 5. Mild pulmonary hypertension (I27.20: Pulmonary hypertension, unspecified) Patient normally on Lasix 20 mg as needed at home 6. Chronic obstructive pulmonary disease (COPD) (J44.9: Chronic obstructive pulmonary disease, unspecified) DuoNebs as needed 7. Carotid stenosis, bilateral (I65.23: Occlusion and stenosis of bilateral carotid arteries) Statin Aspirin 8. Stage 3b chronic kidney disease (CKD) (N18.32: Chronic kidney disease, stage 3b) Baseline creatinine 1.7-1.99 creatinine 2.0 on admission 9. Dementia (F03.90: Unspecified dementia, unspecified severity, without behavioral disturbance, psychotic disturbance, mood disturbance, and anxiety) Memantine donepezil Orders: acetaminophen, 650 mg = 2 tab(s), Tab, Oral, q6hr PRN Pain, Routine, Start date 01/23/24 14:20:00 EDT, 01/23/24 14:20:00 EDT heparin, 5,000 unit(s) = 1 mL, Injection, SubCutaneous, BID for 30 day(s), Stop date 02/22/24 20:59:00 EST, Routine, Start date 01/23/24 21:00:00 EDT, 01/23/24 14:20:00 EDT morphine, 2 mg = 1 mL, Injection, IV Push, q4hr PRN Pain for 5 day(s), Stop date 01/28/24 14:19:00 EDT, Routine, Start date 01/23/24 14:20:00 EDT, 01/23/24 14:20:00 EDT ondansetron, 4 mg = 2 mL, Injection, IV Push, q6hr PRN Nausea, Routine, Start date 01/23/24 14:20:00 EDT, 01/23/24 14:20:00 EDT senna, 17.2 mg = 2 tab(s), Tab, Oral, BID PRN Other (see comment), Routine, Start date 01/23/24 14:20:00 EDT, 01/23/24 14:20:00 EDT B-Type Natriuretic Peptide Basic Metabolic Panel Below the Knee Intermittent Pneumatic Compression Device Cardiac Diet Cardiac Monitoring CBC w/ Auto Diff Consult to Cardiology Consult to Neurology Echo Transthoracic Complete Education Fall Risk Elevate Head of Bed Occupational Therapy Evaluate Patient, Develop a Plan of Care and Implement Plan Physical Therapy Evaluate Patient, Develop a Plan of Care and Implement Plan Precautions Resuscitation Status - DNR CCA (Comfort Care Arrest) Vital Signs Weight Extracted from: Title:Consult Note Author:Stew Blount MD Arben e:01/23/24 1. Atrial fibrillation with RVR (I48.91: Unspecified atrial fibrillation) Continue home dose of Toprol-XL 100 mg twice daily Continue aspirin 81 mg a day DC amiodarone for now (patient presents with new onset bilateral lower extremity numbness)-once acute stroke has been ruled out can plan to start amiodarone if needed for rate control. Patient has a high [id number] 2 score, especially given his prior history of strokes we will recommend heparin along with amiodarone if needed. Recommend echocardiogram to assess LV systolic function Check proBNP level 2. History of CAD status post PCI Patient denies chest pain at the time of my visit or prior to this ER visit Troponin x 2-negative Clinical presentation not suggestive of acute coronary syndrome Continue home dose of atorvastatin 40 mg a day and Zetia 10 mg a day 3. Bilateral lower extremity numbness-further evaluation and management as per primary team/neurology service. Extracted from: Title:ED Note Author:Willian Monroe PA-C te:01/23/24 1. Atrial fibrillation with RVR (I48.91: Unspecified atrial fibrillation) Orders: Basic Metabolic Panel CBC w/ Auto Diff ECG 12 Lead Adult ED Cardiac Monitoring eGFR Extra SST Tube Oxygen Saturation Oxygen Therapy PT & PTT Saline Lock Insert Troponin 0 Hr. Troponin 1 Hr. XR Chest Single View Future Appointments Appointment Date:02/16/2024 03:45:00 PM Scheduled Provider:Alma PILLAI, Brady Cuenca Location:[facility] Appointment Type:Cardiology Follow Up ([facility]) Appointment Date:04/22/2024 02:30:00 PM Scheduled Provider: Location:.[facility]ARD[facility] Appointment Type:NCV Pacemaker ([place]) Future Scheduled Tests Laboratory* TIBC Calculated 03/11/23 * CBC w/ Auto Diff 02/11/23 * Ferritin 03/11/23 * Folate Level 03/11/23 * Iron Level 03/11/23 * Iron Percent Saturation 03/11/23 * Transferrin 03/11/23 [facility] 10-08-2024 NoteProgress Note-Physician Subjective The patient reports some weakness. He denies any chest pain or shortness of breath. Telemetry demonstrates AV paced rhythm. Review of Systems ROS - Provider Constitutional: no fever, no chills, no sweats, no weakness Respiratory: no shortness of breath, no cough Cardiovascular: no chest pain Neuro: no dizziness. no loss of consciousness Objective Vitals & Measurements T: 36.4 ?C(Axillary) TMIN: 36.3 ?C(Axillary) TMAX: 36.8 ?C(Oral) HR: 75(Monitored) RR: 16 BP: 149/80 SpO2: 91% WT: 99.7 kg Intake & Output This visit (24 hour periods starting at 07:00 EDT) 01/27/24 * 01/26/24 01/25/24 Total Summary Intake mL -- 754 695.39 Output mL -- 2,095 3,030 Fluid Balance -- -1,341 -2,334.61 Intake (5) Oral Intake mL -- 750 500 Sodium Chloride 0.9% intravenous solution 500 mL mL -- -- 18.16 amiodarone 360 mg [0.5 mg/min] + Dextrose 5% in Water intravenous solution 200 mL mL -- -- 70.56 furosemide mL -- 4 6 heparin 25,000 unit(s) [18 unit/kg/hr] + Dextrose 5% in Water intravenous solution 500 mL mL -- -- 100.67 Total -- 754 695.39 Output (1) Urine Voided mL -- 2,095 3,030 Total -- 2,095 3,030 Counts (0) * This column has not completed the indicated time period. Physical Exam General: alert, no acute distress Neck: Supple, noJVD nocarotid bruit Cardiovascular: regular rate and rhythm, no murmur normal peripheral perfusion Respiratory: Lungs CTAB, respirations non labored Extremities: no edema left lower extremity. no edema right lower extremity Neurological: oriented x 4, LOC appropriate for age, speech normal Skin: Warm, dry, intact- no rash or concerning lesions Lab Results WBC: 8.5 E9/L (01/27/24 05:49:00) RBC: 5 E12/L (01/27/24 05:49:00) HGB: 11.5 gm/dL Low (01/27/24 05:49:00) Hct: 37.3 % Low (01/27/24 05:49:00) MCV: 74.3 fL Low (01/27/24 05:49:00) MCH: 22.8 pg Low (01/27/24 05:49:00) MCHC: 30.7 gm/dL Low (01/27/24 05:49:00) RDW: 19.7 % High (01/27/24 05:49:00) Platelet: 160 E9/L (01/27/24 05:49:00) MPV: 9.9 fL (01/27/24 05:49:00) Neutro Auto: 70.5 % (01/27/24 05:49:00) Lymph Auto: 16.3 % (01/27/24 05:49:00) [place] Auto: 9.7 % (01/27/24 05:49:00) Eos Auto: 2.9 % (01/27/24 05:49:00) Basophil Auto: 0.6 % (01/27/24 05:49:00) Neutro Absolute: 6 E9/L (01/27/24 05:49:00) Lymph Absolute: 1.4 E9/L (01/27/24 05:49:00) [place] Absolute: 0.8 E9/L (01/27/24 05:49:00) Eos Absolute: 0.2 E9/L (01/27/24 05:49:00) Basophil Absolute: 0.1 E9/L (01/27/24 05:49:00) RBC Morph: SEE MORPHOLOGY (01/27/24 05:49:00) Microcyte: PRESENT (01/27/24 05:49:00) Hypochromasia: PRESENT (01/27/24 05:49:00) Glucose Lvl: 98 mg/dL (01/27/24 05:49:00) BUN: 26 mg/dL High (01/27/24 05:49:00) Creatinine: 1.9 mg/dL High (01/27/24 05:49:00) eGFR: 33 mL/min/1.73 m2 Low (01/27/24 05:49:00) BUN/Creat Ratio: 14 (01/27/24 05:49:00) Sodium Lvl: 142 mmol/L (01/27/24 05:49:00) Potassium Lvl: 4.1 mmol/L (01/27/24 05:49:00) Chloride: 100 mmol/L Low (01/27/24 05:49:00) CO2: 36 mmol/L High (01/27/24 05:49:00) AGAP: 10 mEq/L (01/27/24 05:49:00) Calcium Lvl: 9.1 mg/dL (01/27/24 05:49:00) Assessment/Plan 1. Atrial fibrillation with RVR (I48.91: Unspecified atrial fibrillation) The patient is AV paced now. Continue low-dose Eliquis. Continue amiodarone. Continue metoprolol succinate. 2. Acute heart failure with reduced ejection fraction (HFrEF, <= 40%) (I50.21: Acute systolic (congestive) heart failure) Appears more normovolemic by physical exam. Can switch to p.o. Lasix. Can add low-dose hydralazine/isosorbide dinitrate for afterload reduction. No indication for ACEI due to renal failure The patient declined invasive assessment in the past. 3. Numbness (R20.0: Anesthesia of skin) 4. Coronary artery disease (I25.10: Atherosclerotic heart disease of [place] coronary artery withoutangina pectoris) Continue statin. Continue low-dose aspirin. 5. Hyperlipidemia (E78.5: Hyperlipidemia, unspecified) 6. HTN (hypertension) (I10: Essential (primary) hypertension) 7. Mild pulmonary hypertension (I27.20: Pulmonary hypertension, unspecified) 8. Chronic obstructive pulmonary disease (COPD) (J44.9: Chronic obstructive pulmonary disease, unspecified) 9. Carotid stenosis, bilateral (I65.23: Occlusion and stenosis of bilateral carotid arteries) 10. Stage 3b chronic kidney disease (CKD) (N18.32: Chronic kidney disease, stage 3b) 11. Dementia (F03.90: Unspecified dementia, unspecified severity, without behavioral disturbance, psychotic disturbance, mood disturbance, and anxiety) Problem List/Past Medical History Ongoing Alzheimer's disease, unspecified Anemia BMI 30.0-30.9,adult Carotid stenosis, bilateral Chronic obstructive pulmonary disease (COPD) Chronic respiratory failure with hypoxia Coronary artery disease Dementia Dementia in other diseases classified elsewhere, unspecified severity, (more content not included)...[facility]Result Comment: Electronically Signed By: Alma PILLAI, Brady Badillo.[email or web address]\Date and Time Signed: 01/27/24 12:51 [id number] NoteProgress Note - Nutrition 5 day nutrition rescreen completed. PT does not have risk factors that indicate a full nutrition assessment. PO intake noted as 100% of meals. Will monitor LOS. [facility] Hospital Discharge instructions Patient Education 01/26/2024 12:00:39 Atrial Fibrillation, [id number] Atrial Fibrillation Atrial fibrillation (AFib) is a type of heartbeat that is irregular or fast. If you have AFib, yourheart beats without any order. This makes it hard for your heart to pump blood in a normal way. AFib may come and go, or it may become a long-lasting problem. If AFib is not treated, it can put you at higher risk for stroke, heart failure, and other heart problems. What are the causes? AFib may be caused by diseases that damage the heart's electrical system. They include: High blood pressure. Heart failure. Heart valve diseases. Heart surgery. Diabetes. Thyroid disease. Kidney disease. Lung diseases, such as pneumonia or COPD. Sleep apnea. Sometimes the cause is not known. What increases the risk? You are more likely to develop AFib if: You are older. You exercise often and very hard. You have a family history of AFib. You are male. You are . You are overweight. You smoke. You drink a lot of alcohol. What are the signs or symptoms? Common symptoms of this condition include: A feeling that your heart is beating very fast. Chest pain or discomfort. Feeling short of breath. Suddenly feeling light-headed or weak. Getting tired easily during activity. Fainting. Sweating. In some cases, there are no symptoms. How is this treated? Medicines to: ?Prevent blood clots. ?Treat heart rate or heart rhythm problems. Using devices, such as a pacemaker, to correct heart rhythm problems. Doing surgery to remove the part of the heart that sends bad signals. Closing an area where clots can form in the heart (left atrial appendage). In some cases, your doctor will treat other underlying conditions. Follow these instructions at home: Medicines Take myxs-hyt-bdjuidg and prescription medicines only as told by your doctor. Do not take any new medicines without first talking to your doctor. If you are taking blood thinners: ?Talk with your doctor before taking aspirin or NSAIDs, such as ibuprofen. ?Take your medicines as told. Take them at the same time each day. ?Do not do things that could hurt or bruise you. Be careful to avoid falls. ?Wear an alert bracelet or carry a card that says you take blood thinners. Lifestyle Do not smoke or use any products that contain nicotine or tobacco. If you need help quitting, ask your doctor. Eat heart-healthy foods. Talk with your doctor about the right eating plan for you. Exercise regularly as told by your doctor. Do not drink alcohol. Lose weight if you are overweight. General instructions If you have sleep apnea, treat it as told by your doctor. Do not use diet pills unless your doctor says they are safe for you. Diet pills may make heart problems worse. Keep all follow-up visits. Your doctor will check your heart rate and rhythm regularly. Contact a doctor if: You notice a change in the speed, rhythm, or strength of your heartbeat. You are taking a blood-thinning medicine and you get more bruising. You get tired more easily when you move or exercise. You have a sudden change in weight. Get help right away if: You have pain in your chest. You have trouble breathing. You have side effects of blood thinners, such as blood in your vomit, poop (stool), or pee (urine),or bleeding that cannot stop. You have any signs of a stroke. BE FAST is an easy way to remember the main warning signs: ?B - Balance. Dizziness, sudden trouble walking, or loss of balance. ?E - Eyes. Trouble seeing or a change in how you see. ?F - Face. Sudden weakness or loss of feeling in the face. The face or eyelid may droop on one side. ?A - Arms.Weakness or loss of feeling in an arm. This happens suddenly and usually on one side of the body. ?S - Speech. Sudden trouble speaking, slurred speech, or trouble understanding what people say. ?T - Time.Time to call emergency services. Write down what time symptoms started. You have other signs of a stroke, such as: ?A sudden, very bad headache with no known cause. ?Feeling like you may vomit (nausea). ?Vomiting. ?A seizure. These symptoms may be an emergency. Get help right away. Call 911. Do not wait to see if the symptoms will go away. Do not drive yourself to the hospital. This information is not intended to replace advice given to you by your health care provider. Make sure you discuss any questions you have with your health care provider. Document Revised: 12/25/2022 Document Reviewed: 12/25/2022 Elsevier Patient Education 2023 [employer]. Follow Up Care 01/23/2024 10:01:08 With:Nanci Jarvsi MD, [facility], [facility] Address: [phone] When: Unknown With:Juan PILLAI, HALLEY Zayas Address: [address] [address] [place] [address]- When:2 to 4 weeks [facility] 10-07-2024 NoteProgress Note-Physician Assessment/Plan 1. Atrial fibrillation with RVR (I48.91: Unspecified atrial fibrillation) improved hx of pacemaker Amiodarone 200mg for 2 weeks then 200 mg daily per cardio Cardio consulted following eliquis 2.5mg bid Metoprolol 25 mg twice daily Telemetry Ordered: [facility] Care/Day Moderate 35 Minutes [id number] 2. Acute heart failure with reduced ejection fraction (HFrEF, <= 40%) (I50.21: Acute systolic (congestive) heart failure) Echo shows EF of 25 to 30%. Severe global hypokinesis of LV. IVC mildly dilated. -This is reduced since last echo Strict I's and O's, daily weights lasix 40mg BID will switch to PO Discussed treatment plan with grain loader in length. 3. Numbness (R20.0: Anesthesia of skin) neuro consulted and saw patient like 2/2 neuropathy will need o/p EMG 4. Coronary artery disease (I25.10: Atherosclerotic heart disease of [place] coronary artery withoutangina pectoris) ASA Statin 5. Hyperlipidemia (E78.5: Hyperlipidemia, unspecified) Statin 6. HTN (hypertension) (I10: Essential (primary) hypertension) monitor metop 7. Mild pulmonary hypertension (I27.20: Pulmonary hypertension, unspecified) appears RVSP as increased to 51 mmhg pt now has moderated pulm hypertension 8. Chronic obstructive pulmonary disease (COPD) (J44.9: Chronic obstructive pulmonary disease, unspecified) duonebs PRN 9. Carotid stenosis, bilateral (I65.23: Occlusion and stenosis of bilateral carotid arteries) Statin Aspirin 10. Stage 3b chronic kidney disease (CKD) (N18.32: Chronic kidney disease, stage 3b) Baseline creatinine 1.7-1.9 11. Dementia (F03.90: Unspecified dementia, unspecified severity, without behavioral disturbance, psychotic disturbance, mood disturbance, and anxiety) Memantine Donepezil Orders: amiodarone, 200 mg = 1 tab(s), Tab, Oral, BID for 14 day(s), Stop date 02/08/24 10:29:00 EDT, Routine, Start date 01/25/24 10:30:00 EDT apixaban, 2.5 mg = 1 tab(s), Tab, Oral, BID, Routine, Start date 01/25/24 10:30:00 EDT furosemide, 20 mg = 2 mL, Injection, IV Push, Once, Stop date 01/25/24 10:00:00 EDT, Routine, Startdate 01/25/24 10:00:00 EDT, 01/25/24 9:49:00 EDT furosemide, 40 mg = 4 mL, Injection, IV Push, BID, Routine, Start date 01/25/24 17:00:00 EDT, 01/25/24 9:51:00 EDT Basic Metabolic Panel Basic Metabolic Panel CBC w/ Auto Diff CBC w/ Auto Diff eGFR Subjective Patient seen and examined. sitting up in bed eating breakfast. afebrile. good urine output overnight. Objective Vitals & Measurements T: 36.3 ?C(Oral) TMIN: 36.3 ?C(Oral) TMAX: 36.8 ?C(Oral) HR: 89(Monitored) RR: 20 BP: 120/77 SpO2: 92% WT: 99.4 kg Intake & Output This visit (24 hour periods starting at 07:00 EDT) 01/26/24 * 01/25/24 01/24/24 Total Summary Intake mL 4 695.39 1,127.01 Output mL -- 3,030 1,960 Fluid Balance 4 -2,334.61 -832.99 Intake (6) Oral Intake mL -- 500 100 Sodium Chloride 0.9% intravenous solution 500 mL mL -- 18.16 138.26 amiodarone 360 mg [0.5 mg/min] + Dextrose 5% in Water intravenous solution 200 mL mL -- 70.56 319.48 furosemide mL 4 6 4 heparin mL -- -- 1 heparin 25,000 unit(s) [18 unit/kg/hr] + Dextrose 5% in Water intravenous solution 500 mL mL -- 100.67 564.27 Total 4 695.39 1,127.01 Output (1) Urine Voided mL -- 3,030 1,960 Total -- 3,030 1,960 Counts (1) Stool Count -- -- 1 * This column has not completed the indicated time period. Physical Exam General: NAD Skin: Warm, dry, hematomoa right forearm Head: No trauma, normocephalic Neck: Trachea midline, supple, negative for JVD Eye: Conjunctive are clear, clear sclera , EOMI ENMT: oral mucosa moist, no lesions or edema nose or external ears Cardiovascular: IRR, S1-S2 present, negative for murmurs rubs or gallops Respiratory: Lungs clear to auscultation, bilateral symmetric movement, negative for wheezes rales or rhonchi Chest wall: no deformity. Gastrointestinal: Abdomen soft, bowel sounds present, nontender to palpation Back: No tenderness Extremities: Range of motion intact, no edema Neurological: awake, alert, speech normal, cranial nerves II through XII intact, no sensory defects, alert and oriented x3 Psychiatric: cooperative, affect appropriate for age, pleasant Lab Results WBC: 9.2 E9/L (01/26/24 06:09:00) RBC: 4.7 E12/L (01/26/24 06:09:00) HGB: 11.1 gm/dL Low (01/26/24 06:09:00) Hct: 34.6 % Low (01/26/24 06:09:00) MCV: 73.3 fL Low (01/26/24 06:09:00) MCH: 23.6 pg Low (01/26/24 06:09:00) MCHC: 32.2 gm/dL (01/26/24 06:09:00) RDW: 19.9 % High (01/26/24 06:09:00) Platelet: 139 E9/L Low (01/26/24 06:09:00) MPV: 9 fL (01/26/24 06:09:00) Neutro Auto: 75.1 % High (01/26/24 06:09:00) Lymph Auto: 12.8 % Low (01/26/24 06:09:00) [place] Auto: 9 % (01/26/24 06:09:00) Eos Auto: 2.6 % (01/26/24 06:09:00) Basophil Auto: 0.5 % (1 (more content not included)...[facility]Result Comment: Electronically Signed By: Lavell Siegel DO\Date and Time Signed: 01/26/24 09:08 [id number] NoteProgress Note-Physician Subjective Patient is sitting at bedside and eating breakfast. Does not report any complaints of chest pain orshortness of breath. Objective Vitals & Measurements T: 36.4 ?C(Axillary) TMIN: 36.4 ?C(Axillary) TMAX: 36.5 ?C(Axillary) HR: 87(Monitored) RR: 16 BP: 151/84 SpO2: 93% WT: 101.7 kg Intake & Output This visit (24 hour periods starting at 07:00 EDT) 01/25/24 * 01/24/24 01/23/24 Total Summary Intake mL 2 1,127.01 1,385.91 Output mL -- 1,960 -- Fluid Balance 2 -832.99 1,385.91 Intake (7) Dextrose 5% in Water, amiodarone mL -- -- 100 Oral Intake mL -- 100 550 Sodium Chloride 0.9% intravenous solution 500 mL mL -- 138.26 170.06 amiodarone 360 mg [0.5 mg/min] + Dextrose 5% in Water intravenous solution 200 mL mL -- 319.48 192.43 furosemide mL 2 4 2 heparin mL -- 1 0.78 heparin 25,000 unit(s) [18 unit/kg/hr] + Dextrose 5% in Water intravenous solution 500 mL mL -- 564.27 370.64 Total 2 1,127.01 1,385.91 Output (1) Urine Voided mL -- 1,960 -- Total -- 1,960 -- Counts (2) Stool Count -- 1 -- Urine Count -- -- 5 * This column has not completed the indicated time period. Physical Exam HEENT- mild pallor,no icterus, no cyanosis Neck- no JVD Chest-bibasilar crackles + CVS-soft S1-S2. No murmur Extremities-bilateral trace ankle edema Neuro- alert, oriented x 3 Lab Results WBC: 8.8 E9/L (01/25/24:27:00) RBC: 4.8 E12/L (01/25/24 07:27:00) HGB: 11.1 gm/dL Low (01/25/24:27:00) Hct: 35.9 % Low (01/25/24::00) MCV: 74.4 fL Low (01/25/24::00) MCH: 23 pg Low (01/25/24::00) MCHC: 30.9 gm/dL Low (01/25/24::00) RDW: 19.6 % High (01/25/24::00) Platelet: 138 E9/L Low (01/25/24::00) MPV: 10.1 fL (01/25/24::00) Neutro Auto: 70.7 % (01/25/24::00) Lymph Auto: 16.1 % (01/25/24::00) [place] Auto: 9.9 % (01/25/24::00) Eos Auto: 2.7 % (01/25/24::00) Basophil Auto: 0.6 % (01/25/24::00) Neutro Absolute: 6.2 E9/L (01/25/24::00) Lymph Absolute: 1.4 E9/L (01/25/24:27:00) [place] Absolute: 0.9 E9/L (01/25/24:27:00) Eos Absolute: 0.2 E9/L (01/25/24:27:00) Basophil Absolute: 0 E9/L (01/25/24:27:00) RBC Morph: SEE MORPHOLOGY (01/25/24::00) Hypochromasia: PRESENT (01/25/24::00) Ovalocytes: PRESENT (01/25/24::00) PTT: 111 second(s) Critical (01/25/24:27:00) Glucose Lvl: 95 mg/dL (01/25/24 07:27:00) BUN: 23 mg/dL High (01/25/24:27:00) Creatinine: 1.8 mg/dL High (01/25/24::00) eGFR: 36 mL/min/1.73 m2 Low (01/25/24::) BUN/Creat Ratio: 13 (01/25/24::) Sodium Lvl: 143 mmol/L (01/25/24::00) Potassium Lvl: 4 mmol/L (01/25/24::) Chloride: 104 mmol/L (01/25/24::00) CO2: 33 mmol/L High (01/25/24::) AGAP: 10 mEq/L (01/25/24::) Calcium Lvl: 8.3 mg/dL Low (01/25/24::) Assessment/Plan 1. Atrial fibrillation with RVR (I48.91: Unspecified atrial fibrillation) Patient continues to be in A-fib Recommend continuing loading with p.o. amiodarone 200 mg twice daily for 14 days followed by 200 mga day Recommend switching from IV heparin to Eliquis 2.5 mg twice daily for thromboembolic prophylaxis (H&H has been stable on heparin infusion) Continue metoprolol tartrate 25 mg twice daily 2. Acute heart failure with reduced ejection fraction (HFrEF, <= 40%) (I50.21: Acute systolic (congestive) heart failure) Patient has bilateral basilar crackles-will plan to continue with IV Lasix (40 mg twice daily) for another 24 hours Daily basic metabolic panel with magnesium Strict input output charting and daily weight 3. Numbness (R20.0: Anesthesia of skin) 4. Coronary artery disease (I25.10: Atherosclerotic heart disease of [place] coronary artery withoutangina pectoris) Continue aspirin 81 mg a day, Lipitor 40 mg a day and Zetia 10 mg a day 5. Hyperlipidemia (E78.5: Hyperlipidemia, unspecified) 6. HTN (hypertension) (I10: Essential (primary) hypertension) 7. Mild pulmonary hypertension (I27.20: Pulmonary hypertension, unspecified) 8. Chronic obstructive pulmonary disease (COPD) (J44.9: Chronic obstructive pulmonary disease, unspecified) 9. Carotid stenosis, bilateral (I65.23: Occlusion and stenosis of bilateral carotid arteries) 10. Stage 3b chronic kidney disease (CKD) (N18.32: Chronic kidney disease, stage 3b) 11. Dementia (F03.90: Unspecified dementia, unspecified severity, without behavioral disturbance, psychotic disturbance, mood disturbance, and anxiety) Problem List/Past Medical History Ongoing Alzheimer's disease, unspecified Anemia BMI 30.0-30.9,adult Carotid stenosis, bilateral Chronic obstructive pulmonary disease (COPD) Chronic respiratory failure with hypoxia Coronary artery disease Dementia Dementia in other diseases classified elsewhere, unspecified severity, without behavioral distu (more content not included)...[facility] Comment on above:Result Comment: Electronically Signed By: Mine PILLAI, Stew\.br\Date and Time Signed: 01/25/24 11:36 [id number] NoteProgress Note-Physician Assessment/Plan 1. Atrial fibrillation with RVR (I48.91: Unspecified atrial fibrillation) improved hx of pacemaker Amiodarone drip since 01/22, will switch to PO Cardio consulted following Heparin drip will switch to PO eliquis Metoprolol 25 mg twice daily Telemetry Ordered: [facility] Care/Day Moderate 35 Minutes [id number] 2. Acute heart failure with reduced ejection fraction (HFrEF, <= 40%) (I50.21: Acute systolic (congestive) heart failure) Echo shows EF of 25 to 30%. Severe global hypokinesis of LV. IVC mildly dilated. -This is reduced since last echo Strict I's and O's, daily weights Will continue diuresing with 40 mg IV twice daily today and likely switch to p.o. tomorrow. Discussed treatment plan with grain loader in length. 3. Numbness (R20.0: Anesthesia of skin) neuro consulted and saw patient like 2/2 neuropathy will need o/p EMG 4. Coronary artery disease (I25.10: Atherosclerotic heart disease of [place] coronary artery withoutangina pectoris) ASA Statin 5. Hyperlipidemia (E78.5: Hyperlipidemia, unspecified) Statin 6. HTN (hypertension) (I10: Essential (primary) hypertension) Monitor Metop 7. Mild pulmonary hypertension (I27.20: Pulmonary hypertension, unspecified) appears RVSP as increased to 51 mmhg pt now has moderated pulm hypertension 8. Chronic obstructive pulmonary disease (COPD) (J44.9: Chronic obstructive pulmonary disease, unspecified) duonebs PRN 9. Carotid stenosis, bilateral (I65.23: Occlusion and stenosis of bilateral carotid arteries) Statin Aspirin 10. Stage 3b chronic kidney disease (CKD) (N18.32: Chronic kidney disease, stage 3b) Baseline creatinine 1.7-1.9 11. Dementia (F03.90: Unspecified dementia, unspecified severity, without behavioral disturbance, psychotic disturbance, mood disturbance, and anxiety) Memantine Donepezil Orders: amiodarone, 200 mg = 1 tab(s), Tab, Oral, BID for 14 day(s), Stop date 02/08/24 20:59:00 EDT, Routine, Start date 01/25/24 21:00:00 EDT, 01/25/24 9:51:00 EDT apixaban, 2.5 mg = 1 tab(s), Tab, Oral, BID, Routine, Start date 01/25/24 21:00:00 EDT, 01/25/24 10:18:00 EDT furosemide, 20 mg = 2 mL, Injection, IV Push, Once, Stop date 01/25/24 10:00:00 EDT, Routine, Startdate 01/25/24 10:00:00 EDT, 01/25/24 9:49:00 EDT furosemide, 40 mg = 4 mL, Injection, IV Push, BID, Routine, Start date 01/25/24 17:00:00 EDT, 01/25/24 9:51:00 EDT heparin, 5,000 unit(s) = 1 mL, Injection, IV Push, Once, Stop date 01/24/24 18:00:00 EDT, Start date 01/24/24 18:00:00 EDT Basic Metabolic Panel Basic Metabolic Panel CBC w/ Auto Diff CBC w/ Auto Diff eGFR Elevate Head of Bed PTT PTT Subjective Patient seen and examined. Patient sitting up eating breakfast. Patient states legs feel better. Noother complaints at this time. HR better controlled. pt did have small hematoma drip heparin drip infiltrate yesterday evening. Objective Vitals & Measurements T: 36.5 ?C(Axillary) TMIN: 36.4 ?C(Oral) TMAX: 36.5 ?C(Axillary) HR: 81(Monitored) RR: 16 BP: 116/72 SpO2: 93% WT: 101.7 kg Intake & Output This visit (24 hour periods starting at 07:00 EDT) 01/25/24 * 01/24/24 01/23/24 Total Summary Intake mL -- 1,127.01 1,385.91 Output mL -- 1,960 -- Fluid Balance -- -832.99 1,385.91 Intake (7) Dextrose 5% in Water, amiodarone mL -- -- 100 Oral Intake mL -- 100 550 Sodium Chloride 0.9% intravenous solution 500 mL mL -- 138.26 170.06 amiodarone 360 mg [0.5 mg/min] + Dextrose 5% in Water intravenous solution 200 mL mL -- 319.48 192.43 furosemide mL -- 4 2 heparin mL -- 1 0.78 heparin 25,000 unit(s) [18 unit/kg/hr] + Dextrose 5% in Water intravenous solution 500 mL mL -- 564.27 370.64 Total -- 1,127.01 1,385.91 Output (1) Urine Voided mL -- 1,960 -- Total -- 1,960 -- Counts (2) Stool Count -- 1 -- Urine Count -- -- 5 * This column has not completed the indicated time period. Physical Exam General: NAD Skin: Warm, dry, hematomoa right forearm Head: No trauma, normocephalic Neck: Trachea midline, supple, negative for JVD Eye: Conjunctive are clear, clear sclera , EOMI ENMT: oral mucosa moist, no lesions or edema nose or external ears Cardiovascular: IRR, S1-S2 present, negative for murmurs rubs or gallops Respiratory: Lungs clear to auscultation, bilateral symmetric movement, negative for wheezes rales or rhonchi Chest wall: no deformity. Gastrointestinal: Abdomen soft, bowel sounds present, nontender to palpation Back: No tenderness Extremities: Range of motion intact, no edema Neurological: awake, alert, speech normal, cranial nerves II through XII intact, no sensory defects, alert and oriented x3 Psychiatric: cooperative, affect appropriate for age, pleasant Lab Results WBC: 8.8 E9/L (01/25/24 07:27:00) RBC: 4.8 E12/L (01/25/24 07:27:00) HGB: 11.1 gm (more content not included)...[facility]:Result Comment: Electronically Signed By: Lavell Siegel DO\Date and Time Signed: 01/25/24 10:21 [id number] NoteProgress Note-Physician Subjective Patient is laying in bed. Does not appear in any acute cardiorespiratory distress. Does not report any complaints of chest pain, shortness of breath or palpitations. Echocardiogram done yesterday showed severe LV systolic dysfunction with EF around 30% (this is a change compared to echocardiogram from 2022 when his EF was 60%). After review of echocardiogram results patient was started on IV amiodarone for rate/rhythm controlfor A-fib with RVR. Patient was also started on heparin infusion for thromboembolic prophylaxis. He also received doses of IV Lasix-reviewed with nursing-input and outputs were not charted but as per nursing patient has had good urine output and has been going to the bathroom frequently. Objective Vitals & Measurements T: 36.5 ?C(Axillary) TMIN: 36.5 ?C(Axillary) TMAX: 37.1 ?C(Axillary) HR: 71(Monitored) RR: 18 BP: 110/66 SpO2: 94% HT: 182 cm WT: 101.7 kg Intake & Output This visit (24 hour periods starting at 07:00 EDT) 01/24/24 * 01/23/24 01/22/24 Total Summary Intake mL 2 1,385.91 -- Output mL 600 -- -- Fluid Balance -598 1,385.91 -- Intake (7) Dextrose 5% in Water, amiodarone mL -- 100 -- Oral Intake mL -- 550 -- Sodium Chloride 0.9% intravenous solution 500 mL mL -- 170.06 -- amiodarone 360 mg [0.5 mg/min] + Dextrose 5% in Water intravenous solution 200 mL mL -- 192.43 -- furosemide mL 2 2 -- heparin mL -- 0.78 -- heparin 25,000 unit(s) [18 unit/kg/hr] + Dextrose 5% in Water intravenous solution 500 mL mL -- 370.64 -- Total 2 1,385.91 -- Output (1) Urine Voided mL 600 -- -- Total 600 -- -- Counts (2) Stool Count 1 -- -- Urine Count -- 5 -- * This column has not completed the indicated time period. Physical Exam HEENT- mild pallor,no icterus, no cyanosis Neck- no JVD Chest-good air entry bilaterally without any crackles CVS-soft S1-S2. No murmur Extremities-bilateral trace ankle edema Neuro- alert, oriented x 3 Lab Results WBC: 9.8 E9/L (01/24/24 06:00:00) RBC: 4.8 E12/L (01/24/24 06:00:00) HGB: 11 gm/dL Low (01/24/24 06:00:00) Hct: 35.3 % Low (01/24/24 06:00:00) MCV: 73.7 fL Low (01/24/24 06:00:00) MCH: 22.9 pg Low (01/24/24 06:00:00) MCHC: 31 gm/dL Low (01/24/24 06:00:00) RDW: 19.3 % High (01/24/24 06:00:00) Platelet: 115 E9/L Low (01/24/24 06:00:00) MPV: 9.2 fL (01/24/24 06:00:00) Neutro Auto: 70.9 % (01/24/24 06:00:00) Lymph Auto: 14.1 % (01/24/24 06:00:00) [place] Auto: 9.8 % (01/24/24 06:00:00) Eos Auto: 3 % (01/24/24 06:00:00) Basophil Auto: 2.2 % High (01/24/24 06:00:00) Neutro Absolute: 7 E9/L (01/24/24 06:00:00) Lymph Absolute: 1.4 E9/L (01/24/24 06:00:00) [place] Absolute: 1 E9/L (01/24/24 06:00:00) Eos Absolute: 0.3 E9/L (01/24/24 06:00:00) Basophil Absolute: 0.2 E9/L (01/24/24 06:00:00) RBC Morph: SEE MORPHOLOGY (01/24/24 06:00:00) Microcyte: PRESENT (01/24/24 06:00:00) Poikilocytosis: PRESENT (01/24/24 06:00:00) Ovalocytes: PRESENT (01/24/24 06:00:00) PT: 12.7 second(s) High (01/23/24 16:57:00) INR: 1.13 (01/23/24 16:57:00) PTT: 88.5 second(s) Critical (01/24/24 09:48:00) Glucose Lvl: 100 mg/dL (01/24/24 06:00:00) BUN: 24 mg/dL High (01/24/24 06:00:00) Creatinine: 1.7 mg/dL High (01/24/24 06:00:00) eGFR: 38 mL/min/1.73 m2 Low (01/24/24 06:00:00) BUN/Creat Ratio: 14 (01/24/24 06:00:00) Sodium Lvl: 140 mmol/L (01/24/24 06:00:00) Potassium Lvl: 3.7 mmol/L (01/24/24 06:00:00) Chloride: 105 mmol/L (01/24/24 06:00:00) CO2: 30 mmol/L (01/24/24 06:00:00) AGAP: 9 mEq/L (01/24/24 06:00:00) Calcium Lvl: 7.9 mg/dL Low (01/24/24 06:00:00) BNP: 108 pg/mL High (01/23/24 14:18:00) Assessment/Plan 1. Atrial fibrillation with RVR (I48.91: Unspecified atrial fibrillation) Continue IV amiodarone Continue heparin infusion -Continue p.o. metoprolol tartrate 25 mg twice daily Start p.o. amiodarone 200 mg twice daily (with food) If patient has stable H&H without any significant downtrend we will switch from heparin to NOACfrom tomorrow morning 2. Acute heart failure with reduced ejection fraction (HFrEF, <= 40%) (I50.21: Acute systolic (congestive) heart failure) Clinically no significant volume overload Stop IV Lasix Start p.o. Lasix 40 mg twice daily Daily basic metabolic panel 3. Numbness (R20.0: Anesthesia of skin) 4. Coronary artery disease (I25.10: Atherosclerotic heart disease of [place] coronary artery withoutangina pectoris) Continue home dose of aspirin 81 mg a day Continue Lipitor 40 mg a day Continue Zetia 10 mg a day DC fenofibrate 5. Hyperlipidemia (E78.5: Hyperlipidemia, unspecified) 6. HTN (hypertension) (I10: Essential (primary) hypertension) 7. Mild pulmonary hypertension (I27.20: Pulmonary hypertension, unspecified) 8. Chronic obstructive pulmonary disease (COPD) (J44.9: Chronic obstructive pulmonary disease, unspecified) 9. Carotid st (more content not included)...[facility]Result Comment: Electronically Signed By: Mine PILLAI, Stew\.br\Date and Time Signed: 01/24/24 12:28 [id number] NoteProgress Note-Physician Assessment/Plan 1. Atrial fibrillation with RVR (I48.91: Unspecified atrial fibrillation) improved hx of pacemaker Amiodarone drip since 01/22 Cardio consulted following Heparin drip Metoprolol 25 mg twice daily Telemetry Ordered: [facility] Care/Day High 50 Minutes [id number] 2. Acute heart failure with reduced ejection fraction (HFrEF, <= 40%) (I50.21: Acute systolic (congestive) heart failure) Echo shows EF of 25 to 30%. Severe global hypokinesis of LV. IVC mildly dilated. -This is reduced since last echo Strict I's and O's, daily weights Lasix 20 mg IV twice daily 3. Numbness (R20.0: Anesthesia of skin) Neurology consulted Possible MRI Likely secondary to neuropathy 4. Coronary artery disease (I25.10: Atherosclerotic heart disease of [place] coronary artery withoutangina pectoris) Aspirin Statin 5. Hyperlipidemia (E78.5: Hyperlipidemia, unspecified) Statin Zetia 6. HTN (hypertension) (I10: Essential (primary) hypertension) Monitor Metoprolol 7. Mild pulmonary hypertension (I27.20: Pulmonary hypertension, unspecified) appears RVSP as increased to 51 mmhg pt now has moderated pulm hypertension 8. Chronic obstructive pulmonary disease (COPD) (J44.9: Chronic obstructive pulmonary disease, unspecified) duonebs PRN 9. Carotid stenosis, bilateral (I65.23: Occlusion and stenosis of bilateral carotid arteries) Statin Aspirin 10. Stage 3b chronic kidney disease (CKD) (N18.32: Chronic kidney disease, stage 3b) Baseline creatinine 1.7-1.9 Creatinine has improved to 1.7 from 2.0 on admission 11. Dementia (F03.90: Unspecified dementia, unspecified severity, without behavioral disturbance, psychotic disturbance, mood disturbance, and anxiety) Memantine Donepezil Orders: acetaminophen, 650 mg = 2 tab(s), Tab, Oral, q6hr PRN Pain, Routine, Start date 01/23/24 14:20:00 EDT, 01/23/24 14:20:00 EDT furosemide, 20 mg = 2 mL, Injection, IV Push, BID, Routine, Start date 01/23/24 17:00:00 EDT, 01/23/24 16:37:00 EDT heparin, 7,768 unit(s) = 0.78 mL, Injection, IV Push, Once, Stop date 01/23/24 19:00:00 EDT, Routine, Start date 01/23/24 19:00:00 EDT, Maximum 10,000 units. Use table #1 on Reference Text., 01/22/2418:08:00 EDT heparin 25,000 unit(s) [18 unit/kg/hr] + Dextrose 5% in Water intravenous solution 500 mL, 500 mL, IV, 34.96 mL/hr, Routine, Start date 01/23/24 18:08:00 EDT, 14.3 hour(s), Total volume (mL): 500, Titrate per high intensity heparin protocol (Table 3 on reference text), 97.1 kg, Max INITIAL rate = 2000 unit(s)/hr (40 mL/hr). May go above thi... metoprolol, 25 mg = 1 tab(s), Tab-ER, Oral, BID, Routine, Start date 01/23/24 21:00:00 EDT, 01/23/24 16:37:00 EDT morphine, 2 mg = 1 mL, Injection, IV Push, q4hr PRN Pain for 5 day(s), Stop date 01/28/24 14:19:00 EDT, Routine, Start date 01/23/24 14:20:00 EDT, 01/23/24 14:20:00 EDT ondansetron, 4 mg = 2 mL, Injection, IV Push, q6hr PRN Nausea, Routine, Start date 01/23/24 14:20:00 EDT, 01/23/24 14:20:00 EDT senna, 17.2 mg = 2 tab(s), Tab, Oral, BID PRN Other (see comment), Routine, Start date 01/23/24 14:20:00 EDT, 01/23/24 14:20:00 EDT B-Type Natriuretic Peptide Basic Metabolic Panel Basic Metabolic Panel Below the Knee Intermittent Pneumatic Compression Device Cardiac Diet Cardiac Monitoring CBC w/ Auto Diff CBC w/ Auto Diff Communication Order Physician to Nursing Consult to Cardiology Consult to Neurology Echo Transthoracic Complete Education Fall Risk eGFR Elevate Head of Bed Occupational Therapy Evaluate Patient, Develop a Plan of Care and Implement Plan Physical Therapy Evaluate Patient, Develop a Plan of Care and Implement Plan Precautions PT PTT PTT Referral to [facility] Resuscitation Status - DNR CCA (Comfort Care Arrest) Vital Signs Weight Subjective Patient seen and examined. Afebrile. Rate controlled. On heparin drip and amiodarone drip since 01/22. Patient denies any chest pain, palpitations, or other symptoms at this time. Objective Vitals & Measurements T: 36.6 ?C(Axillary) TMIN: 36.6 ?C(Axillary) TMAX: 37.1 ?C(Axillary) HR: 76(Monitored) RR: 18 BP: 98/62 SpO2: 96% HT: 182 cm WT: 101.7 kg Intake & Output This visit (24 hour periods starting at 07:00 EDT) 01/24/24 * 01/23/24 01/22/24 Total Summary Intake mL 2 1,385.91 -- Output mL -- -- -- Fluid Balance 2 1,385.91 -- Intake (7) Dextrose 5% in Water, amiodarone mL -- 100 -- Oral Intake mL -- 550 -- Sodium Chloride 0.9% intravenous solution 500 mL mL -- 170.06 -- amiodarone 360 mg [0.5 mg/min] + Dextrose 5% in Water intravenous solution 200 mL mL -- 192.43 -- furosemide mL 2 2 -- heparin mL -- 0.78 -- heparin 25,000 unit(s) [18 unit/kg/hr] + Dextrose 5% in Water intravenous solution 500 mL mL -- 370.64 -- Total 2 1,385.91 -- Output (0) Counts (1) Urine Count -- 5 -- * Thi (more content not included)...[facility]: Result Comment: Electronically Signed By: Lavell Siegel DO.johana\Date and Time Signed: 01/24/24 10:22 [id number] NoteConsultation Note Chief Complaint my legs and arms were numb Reason for Consultation lower extremity numbness History of Present Illness the patient is a 88-year-old male who I was asked to see in neurological consultation for lower extremity numbness. The patient has a reported past medical history of dementia, carotid stenosis, COPD, chronic respiratory failure, hyperlipidemia, pulmonary hypertension, paroxysmal atrial fibrillation requiring pacemaker. The patient reports that he awoke with lower extremity numbness below the knees approximately 3 weeks ago. He states that the symptoms were not accompanied with significant weakness. He denies any bowel or bladder symptoms associated with the symptoms. He denies any back pain.He states that these symptoms have improved and are predominantly back to normal. The patient denies any unilateral numbness or weakness. Patient denies any vision changes, or speech changes. The patient is ambulating independently. The patient was found to be in atrial fibrillation with RVR. The patient was admitted for further evaluation. Review of Systems Constitutional: no fever, no [...] noncontributory. Physical Exam Vitals & Measurements T: 36.7 ?C(Oral) TMIN: 36.7 ?C(Oral) TMAX: 37.1 ?C(Axillary) HR: 95(Monitored) RR: 18 BP: 106/69 SpO2: 93% HT: 182 cm WT: 101.7 kg The patient is awake and alert. The patient is oriented x3. Language is intact including comprehension and fluency, fund of knowledge and memory impaired Cranial nerves: Pupils are equal round and reactive to light and accommodation, extraocular movements intact, visual tomlinson are full to confrontation, face is symmetric bilaterally, sensations intactin the face, palate elevates bilaterally, tongue protrudes midline, hearing is intact to finger rub, shoulder shrug is symmetric Motor exam: Strength testing is 5 out of 5 MRC scale strength in all 4 extremities. Deep tendon reflexes are 1+ and symmetric. Tone is normal throughout. Plantar reflexes flexor bilaterally Sensory exam: Sensations intact to light touch and pinprick sensation in all 4 extremities Cerebellar exam: [id number] reveals no ataxia. Gait is normal The neurological exam was performed by a healthcare professional which was witnessed and supervisedby me via video telemedicine visit consented to by the patient or appropriate patient medical detail representative. Assessment/Plan patient is an 88-year-old male with history of lower extremity numbness over the past several weekswhich has improved. Patient does not have any significant sensory loss on today's neurological exam. Patient does have diminished reflexes. Patient may have a peripheral nerve process such as peripheral neuropathy or polyradiculopathy contributing to his symptoms. I recommend patient evaluation with physical therapy for assessment of strength and balance. I recommend obtaining an EMG as an outpatient to assess for peripheral nerve process. The patient does not have findings consistent with an intracranial process contributing to his symptoms. The patient can follow-up with adult outpatient neurology clinic. 1. Atrial fibrillation with RVR, (I48.91: Unspecified atrial fibrillation)Atrial fibrillation 2. Numbness (R20.0: Anesthesia of skin) 3. Coronary artery disease (I25.10: Atherosclerotic heart disease of [place] coronary artery withoutangina pectoris) 4. Hyperlipidemia (E78.5: Hyperlipidemia, unspecified) 5. Mild pulmonary hypertension (I27.20: Pulmonary hypertension, unspecified) 6. Chronic obstructive pulmonary disease (COPD) (J44.9: Chronic obstructive pulmonary disease, unspecified) 7. Carotid stenosis, bilateral (I65.23: Occlusion and stenosis of bilateral carotid arteries) 8. Stage 3b chronic kidney disease (CKD) (N18.32: Chronic kidney disease, stage 3b) 9. Dementia (F03.90: Unspecified dementia, unspecified severity, without behavioral disturbance, psychotic disturbance, mood disturbance, and anxiety) Encounter for smoking cessation counseling (Z71.6: Tobacco abuse counseling) HTN (hypertension) (I10: Essential (primary) hypertension) Problem List/Past Medical History Ongoing Alzheimer's disease, unspecified Anemia BMI 30.0-30.9,adult Carotid stenosis, bilateral Chronic obstructive pulmonary disease (COPD) Chronic respiratory failure with hypoxia Coronary artery disease Dementia Dementia in other diseases classified elsewhere, unspecified severity, without behavioral disturbance, psychotic disturbance, mood disturbance, and anxiety DANIEL (generalized anxiety disorder) Gait disorder Hyperlipidemia IFG (impaired fasting glucose) Loose stools Mild pulmonary hyperten (more content not included)...[facility]:Result Comment: Electronically Signed By: Amy SPRAGUE, Vicki Ballesteros\.br\Date and Time Signed: 01/24/24 07:12 EDT\.br\Electronically Co- Signed By: Marquez Martinez MD\.br\Date and Time Co-Signed: 01/23/2409:28 EDT 01-24-2024 NoteConsultation Note Chief Complaint my legs and arms were numb Reason for Consultation lower extremity numbness History of Present Illness the patient is a 88-year-old male who I was asked to see in neurological consultation for lower extremity numbness. The patient has a reported past medical history of dementia, carotid stenosis, COPD, chronic respiratory failure, hyperlipidemia, pulmonary hypertension, paroxysmal atrial fibrillation requiring pacemaker. The patient reports that he awoke with lower extremity numbness below the knees approximately 3 weeks ago. He states that the symptoms were not accompanied with significant weakness. He denies any bowel or bladder symptoms associated with the symptoms. He denies any back pain.He states that these symptoms have improved and are predominantly back to normal. The patient denies any unilateral numbness or weakness. Patient denies any vision changes, or speech changes. The patient is ambulating independently. The patient was found to be in atrial fibrillation with RVR. The patient was admitted for further evaluation. Review of Systems Constitutional: no fever, no [...] noncontributory. Physical Exam Vitals & Measurements T: 36.7 ?C(Oral) TMIN: 36.7 ?C(Oral) TMAX: 37.1 ?C(Axillary) HR: 95(Monitored) RR: 18 BP: 106/69 SpO2: 93% HT: 182 cm WT: 101.7 kg The patient is awake and alert. The patient is oriented x3. Language is intact including comprehension and fluency, fund of knowledge and memory impaired Cranial nerves: Pupils are equal round and reactive to light and accommodation, extraocular movements intact, visual tomlinson are full to confrontation, face is symmetric bilaterally, sensations intactin the face, palate elevates bilaterally, tongue protrudes midline, hearing is intact to finger rub, shoulder shrug is symmetric Motor exam: Strength testing is 5 out of 5 MRC scale strength in all 4 extremities. Deep tendon reflexes are 1+ and symmetric. Tone is normal throughout. Plantar reflexes flexor bilaterally Sensory exam: Sensations intact to light touch and pinprick sensation in all 4 extremities Cerebellar exam: [id number] reveals no ataxia. Gait is normal The neurological exam was performed by a healthcare professional which was witnessed and supervisedby me via video telemedicine visit consented to by the patient or appropriate patient medical detail representative. Assessment/Plan patient is an 88-year-old male with history of lower extremity numbness over the past several weekswhich has improved. Patient does not have any significant sensory loss on today's neurological exam. Patient does have diminished reflexes. Patient may have a peripheral nerve process such as peripheral neuropathy or polyradiculopathy contributing to his symptoms. I recommend patient evaluation with physical therapy for assessment of strength and balance. I recommend obtaining an EMG as an outpatient to assess for peripheral nerve process. The patient does not have findings consistent with an intracranial process contributing to his symptoms. The patient can follow-up with adult outpatient neurology clinic. 1. Atrial fibrillation with RVR, (I48.91: Unspecified atrial fibrillation)Atrial fibrillation 2. Numbness (R20.0: Anesthesia of skin) 3. Coronary artery disease (I25.10: Atherosclerotic heart disease of [place] coronary artery withoutangina pectoris) 4. Hyperlipidemia (E78.5: Hyperlipidemia, unspecified) 5. Mild pulmonary hypertension (I27.20: Pulmonary hypertension, unspecified) 6. Chronic obstructive pulmonary disease (COPD) (J44.9: Chronic obstructive pulmonary disease, unspecified) 7. Carotid stenosis, bilateral (I65.23: Occlusion and stenosis of bilateral carotid arteries) 8. Stage 3b chronic kidney disease (CKD) (N18.32: Chronic kidney disease, stage 3b) 9. Dementia (F03.90: Unspecified dementia, unspecified severity, without behavioral disturbance, psychotic disturbance, mood disturbance, and anxiety) Encounter for smoking cessation counseling (Z71.6: Tobacco abuse counseling) HTN (hypertension) (I10: Essential (primary) hypertension) Problem List/Past Medical History Ongoing Alzheimer's disease, unspecified Anemia BMI 30.0-30.9,adult Carotid stenosis, bilateral Chronic obstructive pulmonary disease (COPD) Chronic respiratory failure with hypoxia Coronary artery disease Dementia Dementia in other diseases classified elsewhere, unspecified severity, without behavioral disturbance, psychotic disturbance, mood disturbance, and anxiety DANIEL (generalized anxiety disorder) Gait disorder Hyperlipidemia IFG (impaired fasting glucose) Loose stools Mild pulmonary hyperten (more content not included)...[facility] HospitalComment on above:Result Comment: Electronically Signed By: Amy SPRAGUE, Vciki Balelsteros\.br\Date and Time Signed: 01/24/24 07:12 EDT\.br\Electronically Co- Signed By: Marquez Martinez MD\.br\Date and Time Co-Signed: 01/23/2409:28 EDT 01-24-2024 NoteInterdisciplinary Note - PT PT evaluation completed with an AM-PAC six clicks score of 20/24. Pt. is able to complete sit<>stand transfers with supervision. Pt. ambulates 72 ft. with FWW and CGA progressing to supervision. No loss of balance or safety concerns noted with mobility at this time. Pt. is functioning at his baseline level. No further PT needs.[facility] NoteEchocardiology Procedure Exam Date/Time Accession # Ordering Echo Transthoracic 01/23/2024 16:29 EDT [id number] Lavell Siegel DO CPT code [id number] Reason for Exam (Echo Transthoracic Complete) afib;Other (please specify) Report [facility] [address] [place] [address] Adult Echocardiogram Report Name: THANH COLEMAN Study Date: 01/23/2024 03:46 PM BP: 131/81 mmHg Patient Location: 3S S324 01 [facility] Bed(s) [facility] HR: 110 : 1935 Gender: Male Height: 71.5 in Age: 88 yrs Ethnicity: T Weight: 214 lb Reason For Study: Congestive Heart Failure BSA: 2.2 m2 History: HTN,Smoker-Yes,CAD,Pacemaker/ICD,Atrial Fibrillation,Murmur,CHF,COPD,Stents,Pulmonary HTN,[place] Ordering Physician: Wendi Performed By: Sophie Crawford RDCS Interpretation Summary The left ventricle is mildly dilated. Left ventricular ejection fraction is severely reduced. Ejection Fraction = 25-30%. There is severe global hypokinesis of the left ventricle. The left atrium is mildly dilated. There is mild mitral regurgitation. There is no pericardial effusion. Procedure A complete two-dimensional transthoracic echocardiogram was performed (2D, M- mode, spectral and color flow Doppler). Left Ventricle The left ventricle is mildly dilated. Left ventricular ejection fraction is severely reduced. Ejection Fraction = 25- 30%. There is severe global hypokinesis of the left ventricle. Echocardiology Report Left Atrium The left atrium is mildly dilated. Right Atrium There is a catheter/pacemaker lead seen in the RA cavity. Right Ventricle The right ventricular systolic function is normal. Pacer/Defibrillator wire noted in Right Ventricle. The right ventricle is normal size. Aortic Valve Focal calcification. No aortic regurgitation. There is no aortic stenosis. Mitral Valve The mitral valve is grossly normal. There is mild mitral regurgitation. No mitral valve stenosis. Tricuspid Valve Not well visualized. There is mild tricuspid regurgitation. No evidence of tricuspid stenosis. Arteries The aortic root is not well visualized. The aortic arch was not well visualized on this exam. Venous The IVC is mildly dilated with an abnormal respiratory collapse, suggestive of increased right atrial pressure. Effusion There is no pericardial effusion. MMode/2D Measurements & Calculations RVDd: 3.4 cm LVIDd: 5.6 cm FS: 13.2 % Ao root diam: 3.4 cm IVSd: 1.2 cm LVIDs: 4.8 cm EDV(Teich): 150.5 ml Ao root area: 8.8 cm2 LVPWd: 0.94 cm ESV(Teich): 108.4 ml LA dimension: 4.2 cm EF(Teich): 28.0 % asc Aorta Diam: 3.7 cm LVOT diam: 2.1 cm LVLd ap4: 8.9 cm EDV(MOD-sp2): 141.0 ml LVOT area: 3.3 cm2 EDV(MOD-sp4): 155.0 ml ESV(MOD-sp2): 109.0 ml LVLs ap4: 8.4 cm EF(MOD-sp2): 22.7 % ESV(MOD-sp4): 105.0 ml EF(MOD-sp4): 32.3 % SV(MOD-sp4): 50.0 ml TAPSE: 2.0 cm IVC Diam: 2.7 cm RVIDd/LVIDd: 0.61 EF (MOD-bp): 26.3 % LA Vol Index: 34.0 ml/m2 Doppler Measurements & Calculations MV E max malick: 106.6 cm/sec MV dec time: 0.11 sec Ao V2 max: 177.2 cm/sec LV V1 max P.4 mmHg Ao max P.6 mmHg LV V1 max: 105.0 cm/sec REJI(V,D): 2.0 cm2 Echocardiology Report TR max malick: 302.8 cm/sec RAP systole: 15.0 mmHg AV VR: 0.59 TR max P.7 mmHg RVSP(TR): 51.7 mmHg FINAL REPORT Dictated: 01/23/2024 3:46 pm Stew Blount MD Signed (Electronic Signature): 01/23/2024 4:45 pm Signed by: Stew Blount MD Transcribed by: Technologist: [facility]10-04-[facility] Note History and Physical Basic Information Admit Date/Time:01/23/2024 11:35 Chief Complaint my legs and arms were numb History of Present Illness 88-year-old male with past medical history of dementia, carotid stenosis, COPD, chronic respiratoryfailure, DANIEL, HLD, pulmonary hypertension, paroxysmal A-fib status post pacemaker, CKD 3B, presented to ER on 01/22 due to lower extremity numbness that started earlier that morning. Patient denies any chest pain, palpitations, shortness of breath, nausea vomiting diarrhea, fever chills, urinary symptoms or other symptoms at this time. History is limited due to patient's history of dementia. 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 Patient is not on anticoagulation due to high fall risk. In ED patient was found to be in A-fib RVR. Patient was given bolus dose of amiodarone. Patient's creatinine was 2.0, BBC 12.8, EKG showed A-fib RVR, chest x-ray negative for acute processes. Patient's daughter is POA and brought in DNR CCA paperwork. Review of Systems Scoring Palmer Fall Risk Score: 85 High (01/23/24) Physical Exam Vitals & Measurements T: 36.9 ?C(Oral) TMIN: 36.8 ?C(Oral) TMAX: 36.9 ?C(Oral) HR: 112(Peripheral) RR: 16 BP: 135/79 SpO2: 95% HT: 182 cm WT: 97.1 kg General: NAD Skin: Warm, dry Head: No trauma, normocephalic Neck: Trachea midline, supple, negative for JVD Eye: Conjunctive are clear, clear sclera , EOMI ENMT: oral mucosa moist, no lesions or edema nose or external ears Cardiovascular: IRR, S1-S2 present, negative for murmurs rubs or gallops Respiratory: Lungs clear to auscultation, bilateral symmetric movement, negative for wheezes rales or rhonchi Chest wall: no deformity. Gastrointestinal: Abdomen soft, bowel sounds present, nontender to palpation Back: No tenderness Extremities: Range of motion intact, no edema Neurological: awake, alert, speech normal, cranial nerves II through XII intact, no sensory defects, alert and oriented x3 Psychiatric: cooperative, affect appropriate for age, pleasant Lab Results WBC: 12.8 E9/L High (01/23/24 10:12:00) RBC: 5.4 E12/L (01/23/24 10:12:00) HGB: 12.4 gm/dL Low (01/23/24 10:12:00) Hct: 39.5 % (01/23/24 10:12:00) MCV: 73.7 fL Low (01/23/24 10:12:00) MCH: 23.1 pg Low (01/23/24 10:12:00) MCHC: 31.3 gm/dL Low (01/23/24 10:12:00) RDW: 19.8 % High (01/23/24 10:12:00) Platelet: 169 E9/L (01/23/24 10:12:00) MPV: 10 fL (01/23/24 10:12:00) Neutro Auto: 78.1 % High (01/23/24 10:12:00) Lymph Auto: 10.4 % Low (01/23/24 10:12:00) [place] Auto: 9.7 % (01/23/24 10:12:00) Eos Auto: 1.6 % (01/23/24 10:12:00) Basophil Auto: 0.2 % (01/23/24 10:12:00) Neutro Absolute: 10 E9/L High (01/23/24 10:12:00) Lymph Absolute: 1.3 E9/L (01/23/24 10:12:00) [place] Absolute: 1.2 E9/L High (01/23/24 10:12:00) Eos Absolute: 0.2 E9/L (01/23/24 10:12:00) Basophil Absolute: 0 E9/L (01/23/24 10:12:00) RBC Morph: SEE MORPHOLOGY (01/23/24 10:12:00) Ovalocytes: PRESENT (01/23/24 10:12:00) PT: 11.9 second(s) (01/23/24 10:12:00) INR: 1.06 (01/23/24 10:12:00) PTT: 32.1 second(s) (01/23/24 10:12:00) Glucose Lvl: 88 mg/dL (01/23/24 10:12:00) BUN: 28 mg/dL High (01/23/24 10:12:00) Creatinine: 2 mg/dL High (01/23/24 10:12:00) eGFR: 31 mL/min/1.73 m2 Low (01/23/24 10:12:00) BUN/Creat Ratio: 14 (01/23/24 10:12:00) Sodium Lvl: 143 mmol/L (01/23/24 10:12:00) Potassium Lvl: 3.8 mmol/L (01/23/24 10:12:00) Chloride: 105 mmol/L (01/23/24 10:12:00) CO2: 32 mmol/L High (01/23/24 10:12:00) AGAP: 10 mEq/L (01/23/24 10:12:00) Calcium Lvl: 8.5 mg/dL Low (01/23/24 10:12:00) Troponin HS: 23.9 pg/mL (01/23/24 10:59:00) Assessment/Plan DVT PPx?Patient will be admitted under inpatient status due to estimated length of stay greater than 2 midnights. All images, labs, EKGs were reviewed 1. Atrial fibrillation with RVR (I48.91: Unspecified atrial fibrillation) Status post amiodarone in ER Consult cardio Metoprolol Not on anticoagulation due to high bleed risk Telemetry Check echo Ordered: Initial Hospital Care/Day Moderate 55 Minutes [id number] 2. Numbness (R20.0: Anesthesia of skin) Consult neurology consider MRI likely 2/2 neuropathy 3. Coronary artery disease (I25.10: Atherosclerotic heart disease of [place] coronary artery withoutangina pectoris) Aspirin Statin 4. Hyperlipidemia (E78.5: Hyperlipidemia, unspecified) Statin Zetia 5. Mild pulmonary hypertension (I27.20: Pulmonary hypertension, unspecified) Patient normally on Lasix 20 mg as needed at home 6. Chronic obstructive pulmonary disease (COPD) (J44.9: Chronic obstructive pulmonary disease, unspecified) DuoNebs as needed 7. Carotid stenosis, bilateral (I65.23: Occlusion and stenosis of bilateral carotid arteries) Statin Aspirin 8. Stage 3b chronic kidney disease (CKD) (N18.32: Chronic kidney disease, stage 3b) Baselin (more content not included)...[facility]:Result Comment: Electronically Signed By: Lavell Siegel DO\.br\Date and Time Signed: 01/23/24 15:04 [id number] NoteConsultation Note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 heart failure atrial fibrillation and CVA resenting [...] came in today using a walker and isaccompanied by his daughter. Today patient feels better. He is able to balance well not concerned about getting physical therapy but was concerned about the long drive it took to get here for his daughter's. Patient lives in [place] and so this is 2 hours away from home. Today patient's concern wasfar more about his right second toe pain and swelling. Patient believes this is happened may be a couple days ago. In addition to a mass on the lateral side of his foot close to his ankle. Patient could not wear shoe but was able to wear a sock and tolerate manipulation. The history is provided by the patient and medical records. No interpreter and translator was used. Review of Systems Constitutional: Positive [...] Patient needs to follow-up with neurologist and grain loader however given his long commute we suggested [...] Stable LUKE SUN DO documented in this encounterFairfield Medical Center08-25-2023 Miscellaneous Notes* Telephone Encounter - Chery Freitas MSW - 12/13/2022 10:07 AM EDT Andre spoke with patient daughter Tiffany about older adult programs. Tiffany notes that patient is staying with her right now in [place]. Patient has been a resident of [facility], until now going to [place]. Tiffany notes that patient reports that he would like to be located between [place] and [facility]. Ty would be in between. Tiffany reports that she has been able to stucco worker doing her medical billing. Concerns from patient stroke: falls/memory impairment. Andre and Tiffany discussed that some AL accept Medicaid/Waiver upon entry. Tiffany and Andre also discussed Guardianship and probate court. Discussed benefits by utilizing [employer]. Tiffany notes that one of her sisters used to be patient POLesli. This sister though now does not have contact with family. Andre discussed with Tiffany that [employer] also may provide assistance for guardianship geriatric personal care aide needs. Andre provided Tiffany with AAA 9 phone number for [facility]. Patient has been [facility] resident and this would be a good place to start searching for patient resources. Andre provided Tiffany with her direct number for further patient care needs. Tiffany also noted that she would pass along ANDRE direct number to her sister Peggy. Peggy is listed as a patient contact as well. * Telephone Encounter - Chery Freitas MSW - 12/12/2022 3:47 PM EDT Andre called and briefly spoke with patient daughter Tiffany. Tiffany asks that Sw reach back out to her in the morning. Tiffany reports that she is driving home and there is high water in some areas, so wants to watch where she is going. Andre will try call again tomorrow morning. documented in this encounterFairfield Medical Center08-24-2023 NoteHNO ID: [id number] Author: Zoraida Hodge APRN.RETAIL WAREHOUSE ASSOCIATE Service: ? Author Type: Nurse Practitioner Type: Progress Notes Filed: 12/13/2022 9:40 AM Note Text: Chief Complaint Patient presents with: Hospital F/U: Stroke, Dementia, needs 11/11 home care HPI Thanh Coleman is a 87 year old male who presents here today for Above Complaints.. Today: Was admitted to [facility] for stroke, has 75% blockage in his [...] Short term memory is 1/2 and 1/2. prison memory is confused, specifically with people. Is [...] months and was reporting in her paperwork. television maintenance worker was aware as well and family was not informed. Neighbor was controlling and made it difficult for family to be involved in patient's care. Family is requesting guardianship. Was recommended that he move to assisted living and needs help making sure he takes his medications, etc. Seeing heart doctor in 4 days-Dr. Sun in [place]. Past medical history, appointments, medications, allergies reviewed. Previous Medical History PAST MEDICAL HISTORY Diagnosis Date Anticoagulant long-term use Aortic aneurysm ([facility]) s/p repair AAA Atrial flutter ([facility]) 03/03/2020 CAD (coronary artery disease) pacemaker, hyperlipidemia, hyperlipidemia Chronic combined systolic and diastolic congestive heart failure ([facility]) 09/26/2020 CKD (chronic kidney disease) stage 3, GFR 30-59 ml/min ([facility]) 12/2015 COPD (chronic obstructive pulmonary disease) ([facility]) Essential hypertension 06/19/2016 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 08/10/2015 H/O right heart catheterization History of [place] (myocardial infarction) 08/10/2015 Hyperlipidemia, unspecified 12/23/2019 Hypertensive chronic kidney disease with stage 1 through stage 4 chronic kidney disease, or unspecified chronic kidney disease 12/23/2019 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 Social Histor (more content not included)...[facility]08-24-2023 Miscellaneous Notes* Telephone Encounter - Ekta Mandujano APRN.CNP - 12/12/2022 2:00 PM EDT Being addressed in office today. Closing this encounter. Thank you, Ekta Mandujano APRN.RETAIL WAREHOUSE ASSOCIATE * Telephone Encounter - Carina Keyes RN - 12/09/2022 4:56 PM EDT Daughter, Michelle Quach, reports patient was transported via ambulance to [facility] early Friday morning. [place] transferred patient to [facility] to r/o stroke. CT showed patient had stroke and blockage in the neck. MRI was not done b/c patient has stents, but he, or family do not know where the stents are. Bibiana was doing an ECHO today when family left. Hospital informed family today, patient will be d/c'd tomorrow, and will need 24/7 care. Family is trying to work onthis. Reports patient needs a dementia test, so family can file for guardianship, and make needed decisions. Reports patient may need to go to assisted living. Reports patient still drives, so that will need to be addressed. Reports patient has a [facility] casey saw operator, and [facility] home casey saw operator. Reports the biggest problem is patient is not taking his medications correctly. Reports patient is confused and doesn't always know his family members. Reports patient is able to walk and able to take himself to the bathroom. Scheduled hosp f/u appt with Rug Cutter Helper on , this week. documented in this encounterFairfield Medical Center08-24-2023 History of Present illness Narrative* Zoraida Hodge APRN.CNP - 12/12/2022 1:38 PM EDT Chief Complaint Patient presents with: Hospital F/U: Stroke, Dementia, needs 24/7 home care HPI Thanh Coleman is a 87 year old male who presents here today for Above Complaints.. Today: Was admitted to [facility] for stroke, has 75% blockage in his [...] Short term memory is 1/2 and 1/2. 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 Is [...] months and was reporting in her paperwork. television maintenance worker was aware as well and family was not informed. Neighbor was controlling and made it difficult for family to be involved in patient's care. Family is requesting guardianship. Was recommended that he move to assisted living and needs help making sure he takes his medications, etc. Seeing heart doctor in 4 days-Dr. Sun in [place]. Past medical history, appointments, medications, allergies reviewed. Previous Medical History PAST MEDICAL HISTORY Diagnosis Date Anticoagulant long-term use Aortic aneurysm ([facility]) s/p repair AAA Atrial flutter ([facility]) 03/03/2020 CAD (coronary artery disease) pacemaker, hyperlipidemia, hyperlipidemia Chronic combined systolic and diastolic congestive heart failure ([facility]) 09/26/2020 CKD (chronic kidney disease) stage 3, GFR 30-59 ml/min ([facility]) 12/2015 COPD (chronic obstructive pulmonary disease) ([facility]) Essential hypertension 06/19/2016 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 (Patient not taking: [...] it says. Score 1 point only if he/sheactually closes his/her eyes. Max score=1 Patient's score=1 Writing: Give the patient a blank piece of paper and ask him/her to write a sentence. Do not dictate a sentence; it is to be written spontaneously. It must contain a subject and verb and be sensible.Correct grammar and punctuation are not necessary. Max [...] patient's recent hospitalization with not realizing date, dayof the week because blended together in hospital. [...] (c) 1974, 1997 [employer] Used withpermission. References: 1. Folstein MF, Folstein SE, Jeremy NE. Mini-Mental State: a practical method for grading the cognitive state of patients for the clinician. J Psychiatr Res. 1975; 12:189-198. 2. JR Mary Lou, Leonardo MF, Mini-Mental State Examination (MMSE). Psychopharm Bull. 1988;24:689-692. 3. Judah JT, Urbano FJ, Lakshmi RD, Kash A, Jose Miguel F. Neuropsychological function in Alzheimer's disease: pattern of impairment and rates of progression. Arch Neurol. 1988;45:263-268. 4. Kirt JOHNSON, Phoebe B,Dewayne S-P, Vinnie PILLAI. Predictors of cognitive and functional progression in patients with probable Alzheimer's disease. Neurology. 1992;42:3227-1164. General Appearance: Well appearing, alert, in no [...] - EZETIMIBE 10 MG TABLET Zoraida Hodge APRN.RETAIL WAREHOUSE ASSOCIATE documented in this encounterFairfield Medical Center08-23-2023 NotePatient Outreach ([facility]) THANH COLEMAN ([id number]) 1935 M Date Time Provider Department 12/11/22 FEMI OLIVERA During your visit today, we recorded the following information about you: Femi Olivera RN 12/11/2022 10:54 AM Signed TCM Home Visit Referral Source of Stratification: [facility] Hospital Admission Status: Discharged Readmission Risk Score: [...] you Future Appts 12/12 [facility] 12/[address] [facility] 01/14 [facility] Patient states [...] Network Status: In-Network Discharge Pt discharged from [facility] on 12/10/22. Admitted for: CVA slurred speech It is thought that he had TIA versus small stroke. Contact made with patient: Yes Hi my name is Femi Olivera RN and I am calling from the [facility] on behalf of your PCP, Boo Marina, [...] like to speak with a social work steam and power superintendent to help give you support for any [...] I will send your request to a program scheduler who will contact and assist you with [...] Department as usual but (more content not included)...[facility]08-23-2023 NoteHNO ID: [id number] Author: Femi Olivera RN Service: ? Author Type: Registered Nurse Type: Progress Notes Filed: 12/11/2022 10:54 AM Note Text: TCM Home Visit Referral Source of Stratification: [facility] Hospital Admission Status: Discharged Readmission Risk Score: [...] you Future Appts 12/12 [facility] 12/[address] [facility] [address] [facility] 01/14 [facility] Patient states is feeling better Slurred [...] Network Status: In-Network Discharge Pt discharged from [facility] on 12/10/22. Admitted for: CVA slurred speech It is thought that he had TIA versus small stroke. Contact made with patient: Yes Hi my name is Femi Olivera RN and I am calling from the [facility] on behalf of your PCP, Boo Marina, [...] like to speak with a social work steam and power superintendent to help give you support for any [...] I will send your request to a program scheduler who will contact and assist you with [...] way if possible). MERT Education Ordered -: [facility]08-23-2023 History of Present illness Narrative* Femi Olivera RN - 12/11/2022 10:40 AM EDT TCM Home Visit Referral Source of Stratification: [facility] Hospital Admission Status: Discharged Readmission Risk Score: [...] you [facility] Patient states is feeling better Slurred [...] Network Status: In-Network Discharge Pt discharged from [facility] on 12/10/22. Admitted for: CVA slurred speech It is thought that he had TIA versus small stroke. Contact made with patient: Yes Hi my name is Femi Olivera RN and I am calling from the [facility] on behalf of your PCP, Boo Marina, [...] like to speak with a social work steam and power superintendent to help give you support for any [...] provider to ensure you have safely transitioned home.If you are agreeable, I will send your request to a program scheduler who will contact and assist you with that appointment. This will give you an opportunity to ask any questions or address any concerns youmay have with your PCP. Inform the patient [...] unless instructed to do so. For any non- emergency symptoms, call your Doctor s office to get instructions on how to manage (we might recommend a telephone or virtualvisit). For emergency symptoms, proceed to Emergency Department as usual but inform them of cough and fever symptoms YOUNG if present (or call on the way if possible). MERT Education Ordered -: No documented in this encounterFairfield Medical Center08-21-2023 NoteHNO ID: [id number] Author: Anil Red, PhD Service: Psychology Author Type: Psychologist Type: Progress Notes Filed: 12/09/2022 10:21 AM Note Text: Reason for referral: Confusion and agitation. I reviewed the patient's records and got a report from the nurse in charge of his care. I met with the patient. He was cooperative. He knew he was at [facility] and he knew also it was Friday [...] there were no issues that required specific attention.[facility] 12-09-2022 NoteHNO ID: [id number] Author: Rudy Bang MD Service: Hospital Medicine [...] no acute complaints at this time. Per social work coordinator, her family is working on discharge plan [...] He was transferred as an admission from [facility] in hospital, where he went with a chief complaint of left-sided facial droop and slurred speech. In the ER, initial NIH was at 3. Teleneurology evaluated the patient and felt that the patient needed to be transferred to higher level of care for further neurological work-up. Therefore he was transferred to [facility]. CT brain showed no acute abnormalities. 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 It is thought that he had TIA [...] for stroke prophylaxis for A-fib. - Per social work coordinator, likely discharge home tomorrow after discussion with [...] (aspirin non-enteric coated 81mg ORAL OR 300mg NE) See Hyperspace for full Linked Orders Report. 81 mg PO/FT DAILY Given, 12/09 0847 12/06/22 0305 -- 12/06/22 0315 activity - mobilize patient (tn,oh) Plan of care discussed with: SIGNATURE: Rudy Bang MD PATIENT NAME: Thanh Coleman DATE: December 09, 2022 TIME: 9:19 AM etx [id number] Affairs Roseburg [facility] System08-20-2023 NoteHNO ID: [id number] Author: Dennis Navarrete MD Service: General Internal [...] Diagnosis Date Anticoagulant long-term use Aortic aneurysm ([facility]) s/p repair AAA Atrial flutter ([facility]) 03/03/2020 CAD (coronary artery disease) pacemaker, hyperlipidemia, hyperlipidemia Chronic combined systolic and diastolic congestive heart failure ([facility]) 09/26/2020 CKD (chronic kidney disease) stage 3, GFR 30-59 ml/min ([facility]) 12/2015 COPD (chronic obstructive pulmonary disease) ([facility]) Essential hypertension 06/19/2016 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 08/10/2015 H/O right heart catheterization History of [place] (myocardial infarction) 08/10/2015 Hyperlipidemia, unspecified 12/23/2019 Hypertensive chronic kidney disease with stage 1 through stage 4 chronic kidney disease, or unspecified chronic kidney disease 12/23/2019 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 ([facility]) 07/02/2021 Hypertriglyceridemia Low HDL (under 40) Neuropathy Palpitations 12/23/2019 Permanent atrial fibrillation ([facility]) 08/10/2015 Presence of cardiac pacemaker 08/10/2015 Presence of drug coated stent in left circumflex coronary artery 08/10/2015 Sick sinus syndrome ([facility]) 08/10/2015 Stage 3b chronic kidney disease ([facility]) 12/21/2015 TB (pulmonary tuberculosis) Thrombocytopenia (HCC) PAST SURGICAL HISTORY Procedure Laterality Date ABD AORTIC ANEURYSM REPAIR CORONARY STENT EA VESSEL 3-2008 x 2, drug eluting ILIAC PRINTED CIRCUIT LAYOUT TAPER W/WO STENT PACEMAKER DUAL CHAMBER TIER 0 [...] Oral 89 16 96 (more content not included)...[facility]08-19-2023 NoteHNO ID: [id number] Author: Dennis Navarrete MD Service: General Internal Medicine Author Type: Physician Type: Progress Notes Filed: 12/07/2022 10:30 AM Note Text: INTERNAL MEDICINE progress SERVICE DATE: 12/07/2022 SERVICE TIME: 0730 PRIMARY CARE PHYSICIAN: Boo Marina DO Subjective HISTORY OF PRESENT ILLNESS: no new complaints overnight. Denies pain or shortness of breath. 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 08/10/2015 H/O right heart catheterization History of [place] (myocardial infarction) 08/10/2015 Hyperlipidemia, unspecified 12/23/2019 Hypertensive chronic kidney disease with stage 1 through stage 4 chronic kidney disease, or unspecified chronic kidney disease 12/23/2019 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 ([facility]) 07/02/2021 Hypertriglyceridemia Low HDL (under 40) Neuropathy Palpitations 12/23/2019 Permanent atrial fibrillation ([facility]) 08/10/2015 Presence of cardiac pacemaker 08/10/2015 Presence of drug coated stent in left circumflex coronary artery 08/10/2015 Sick sinus syndrome ([facility]) 08/10/2015 Stage 3b chronic kidney disease ([facility]) 12/21/2015 TB (pulmonary tuberculosis) Thrombocytopenia ([facility]) PAST SURGICAL HISTORY Procedure Laterality Date ABD AORTIC ANEURYSM REPAIR CORONARY STENT EA VESSEL 3-2008 x 2, drug eluting ILIAC PRINTED CIRCUIT LAYOUT TAPER W/WO STENT PACEMAKER DUAL CHAMBER TIER 0 [...] 139/73 36.6 ?C (97.9 (more content not included)...[place] [id number] NoteHNO ID: [id number] Author: Sydni Magallon RN Service: Care Management Author Type: Registered Nurse Type: Allied Health Filed: 12/06/2022 12:22 PM Note Text: ANCILLARY HOME HEALTH LIAISON PROGRESS NOTE SERVICE DATE: 12/06/2022 SERVICE TIME: 1219 Patient is active with [facility] Care out of [place]. They are not in [employer] so any paperwork needs to be faxed to [phone]. Lucinda Araujo is the RN Clinical Field Representative and can be reached at [phone]. Will follow and update [facility] with d/c plans. SIGNATURE: Sydni Magallon RN PATIENT NAME: Thanh Coleman DATE: December 06, 2022 TIME: 12:19 PM PAGER/CONTACT #: [phone] Affairs [facility]08-17-2023 Miscellaneous Notes* Telephone Encounter - Ekta Mandujano APRN.CNP - 12/05/2022 3:37 PM EDT Noted. Thank you for update. Ekta Mandujano APRN.MADY * Telephone Encounter - Vivienne Villarreal RN - 12/05/2022 2:43 PM EDT Lucinda SPRAGUEglassware selector with [facility] calls to let provider know that today when home health aide showed up to home patient was disoriented with slurred speech. 911 was contacted and patient was transported to [facility] where he is currently at for evaluation. Vivienne Villarreal RN documented in this encounterFairfield Medical Center08-15-2023 Miscellaneous Notes* Telephone Encounter - Vivienne Villarreal RN - 12/03/2022 4:46 PM EDT Patient has been identified by [...] you. Vivienne Villarreal RN documented in this encounterFairfield Medical Center07-03-2023 Miscellaneous Notes* Telephone Encounter - Graciela Manzano LPN - 10/21/2022 5:18 PM EDT Pt. informed. * Telephone Encounter - Zoraida Hodge APRN.CNP - 10/21/2022 3:32 PM EDT Please let him know that his kidney function has improved. He does still need to get in to see nephrology as soon as he can as well as continue to push fluids as she instructed in her previous telephone message. Zoraida Hodge APRN.CNP documented in this encounterFairfield Medical Center06-29-2023 Miscellaneous Notes* Telephone Encounter - Wanda Mccollum LPN - 10/17/2022 1:59 PM EDT Spoke with pt gave information provided. Explained these are kidney function labs. Importance of getting more water in as suggested by doctor and cuitting as much salt out of diet as possible. He voices understanding and will come for labs tomorrow. Please assist in getting in with nephrology young as Suggests. * Telephone Encounter - Wanda Mccollum LPN - 10/17/2022 11:41 AM EDT T/c to pt voicemail not set up yet. Will need to try back. * Telephone Encounter - Boo Marina DO - 10/17/2022 9:44 AM EDT Please inform patient that his recent labs are showing high BUN and creatinine. He needs to have these repeated this week and get opinion by Cruise Counselor as soon as possible Avoid NSAIDs, needs to be drinking 40-60 oz of water a day as well as limiting sodium and eating renal diet. Boo Marina DO documented in this encounterFairfield Medical Center06-21-2023 Miscellaneous Notes* Telephone Encounter - Pam Goff RN - 10/09/2022 10:02 AM EDT Medication refill requested by Pharmacy Please review [...] (FLONASE) 50 mcg/actuation nasal spray Use 1 Duncan in each nostril daily at bedtime. aspirin, enteric coated (ASPIRIN, ENTERIC COATED) 81 mg EC tablet Take 81 mg by mouth once daily. Magnesium 250 mg tab Take 250 mg by mouth once daily. Pam Goff RN documented in this encounterFairfield Medical Center06-20-2023 Miscellaneous Notes* Telephone Encounter - Jojo Arango - 10/08/2022 6:41 PM EDT October 08, 2022 Patient Contact Number: [phone] (home) Reason For Call: Followed up on consult order to [facility] dated 11/29/21 by Zoraida Hodge APRN, CMP STATUS: declined ( already scheduled / no answer / Scheduled, sent to Desk F14 / Declined / No Answer ) Pt had difficulty hearing me and was unable to schedule. Jojo [id number] documented in this encounterFairfield Medical Center06-20-2023 NoteHNO ID: [id number] Author: Boo Marina, DO Service: ? Author Type: Physician Type: Progress Notes Filed: 10/08/2022 5:30 PM Note Text: CC: Tahnh Coleman is a 87 year old male [...] clean apartment once per week. Uses pre-packaged [facility] for medicaiton management. No recent falls. Reports minimal support system as he is not in contact with his children much anymore even thought they live nearby. HLD -- Lipitor 40 mg daily, zetia 10 mg daily, and fenofibrate 54 mg daily. Stable. No symptoms. Willing to recheck with blood work. Hx of Afib -- Well controlled, on eliquis routinely. 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/2020 CKD (chronic kidney disease) stage 3, GFR 30-59 ml/min ([facility]) 12/2015 COPD (chronic obstructive pulmonary disease) ([facility]) Essential hypertension 06/19/2016 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 aspirin, enteric coated (ASPIRIN, ENTERIC COATED) 81 mg EC tablet Take 81 mg by mouth once daily. Magnesium 250 mg tab Take 250 mg by chris (more content not included)...[facility]06-02-2023 Miscellaneous Notes* Telephone Encounter - Vivienne Villarreal RN - 09/20/2022 3:12 PM EDT [facility] calls to report patient was admitted to their services today for HH d/t previous HHcompany closing. They will be faxing over HH orders with a request for PT eval and TX for ambulation d/t weakness and leg pain. No verbal call back needed if provider agrees forms can be faxed back to number on request. Vivienne Villarreal RN documented in this encounterFair[facility]05-15-2023 Miscellaneous Notes* Telephone Encounter - Sahara Pathak RN - 09/02/2022 9:15 AM EDT Jocelyn with [facility] called and asked to have Pts last OV note faxed to them. Faxed to # [phone]. documented in this encounterFairfield Medical Center05-12-2023 Miscellaneous Notes* Telephone Encounter - Pam Goff RN - 08/30/2022 2:02 PM EDT Jocelyn Lopez LPN with [facility] calling and requesting pt's most recent PCP OV note be faxed to her at [phone]. Contacted patient to verify services being received by this company and pt reports he does receive services from them and gives his consent to fax information as requested. Faxed as requested. Pam Goff RN documented in this encounterFairfield Medical Center04-23-2023 [facility] NAME ACCOUNT SEX AGE ADMIT DISCHARGE PT MED. RECORD# NUMBER DATE DATE TYPE THANH COLEMAN [id number] Carina 86 08/08/22 2 [id number] ROOM: [facility] DATE OF : [birth year] DICTATING PHYSICIAN: Clem [...] III. (6) History of tuberculosis in the 1950s. He had a lobe removed, but he [...] Cardioversion. (3) Abdominal aortic aneurysm repair at [facility] in [place]. 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 This was done in [place]. (5) Back surgery. MEDICATIONS: (1) Aspirin 81 [...] of 4 THANH COLEMAN History & Physical VIRGINIATHAHN :1935 signs of temporal arteritis at this point. (more content not included)...[facility]04-23-[facility] NAME ACCOUNT SEX AGE ADMIT DISCHARGE PT MED. RECORD# NUMBER DATE DATE TYPE THANH COLEMAN [id number] M 86 08/08/22 08/09/22 2 [id number] ROOM: [facility] DATE OF : 1935 ATTENDING PHYSICIAN: Clem [...] be checked as an outpatient. If the telephone maintainer decides to place him on steroids, he [...] of 2 THANH COLEMAN Discharge Summary THANH [place] : 1935 function, especially with the meloxicam. [...] Clem Carrion MD 08/09/22 13:19 JOB #: [id number] Transcribed By: madonna 08/09/22 14:13 Electronically signed by: E-Sign: CLEM CARRION MD 08/11/22 16:27 Page 2 of 2 THANH COLEMAN [facility]Hol[facility] 08-[facility]-2022 NoteHNO ID: [id number] Author: Juan Carlos Cuadra OD Service: ? Author Type: PASTRY WRAPPER Type: Progress Notes Filed: 08/06/2022 2:56 PM [...] Carlos Cuadra, OD August 06, 2022 2:54 [facility]04-05-2023 Miscellaneous Notes* Telephone Encounter - Celi Landers LPN - 07/24/2022 4:06 PM EDT Attempted to reach pt, recording states 'the Jessica customer is not avail at this time, try again later.' Celi Landers LPN * Telephone Encounter - Graciela Manzano LPN - 07/24/2022 9:39 AM EDT Attempted to notify Cell phone off. * Telephone Encounter - Zoraida Hodge APRN.CNP - 07/23/2022 9:07 PM EDT Please let Thanh know that we received [...] Provider: ZORAIDA HODGE APRN.CNP documented in this encounterFairfield Medical Center03-20-2023 NoteHNO ID: [id number] Author: Ekta Mandujano APRN.CNP Service: ? Author [...] clean apartment once per week. Uses pre-packaged [facility] for medicaiton management. No recent falls. [...] Afib -- Well controlled, on eliquis routinely. 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 Past medical history, appointments, medications, allergies reviewed. 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/2020 CKD (chronic kidney disease) stage 3, GFR 30-59 ml/min ([facility]) 12/2015 COPD (chronic obstructive pulmonary disease) ([facility]) Essential hypertension 06/19/2016 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 08/10/2015 H/O abdominal aortic aneurysm repair 08/10/2015 H/O right heart catheterization High blood pressure History of heart attack History of [place] (myocardial infarction) 08/10/2015 Hyperlipidemia, unspecified 12/23/2019 Hypertensive [...] VESSEL 3-2008 x 2, drug eluting ILIAC PRINTED CIRCUIT LAYOUT TAPER W/WO STENT PACEMAKER DUAL CHAMBER TIER 0 [...] shampoo Apply to affected (more content not included)...[facility]03-20-2023 History of Present illness Narrative* Ekta Mandujano APRN.RETAIL WAREHOUSE ASSOCIATE - 07/08/2022 1:20 PM EDT Chief Complaint Patient presents with: 3 month [...] breath, palpitations, dizziness, leg edema, headaches, or visionchanges. Last 14 Encounter BP Readings: Date: BP: 07/08/2022 120/68 04/08/2022 110/70 02/27/2022 156/89 02/20/2022 141/74 01/07/2022 100/60 10/08/2021 90/60 09/28/2021 102/68 07/04/2021 100/60 06/21/2021 122/76 06/15/2021 124/60 04/23/2021 114/60 12/29/2020 90/60 10/30/2020 110/60 10/19/2020 100/66 Mood--- Zoloft 50 mg daily. Stable and well controlled on this regimen. ADLs-- Lives alone in his apartment. Has [employer] clean apartment once per week. Uses pre-packaged [facility] for medicaiton management. No recent falls. [...] Afib -- Well controlled, on eliquis routinely. 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 Past medical history, appointments, medications, allergies reviewed. 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/2020 CKD (chronic kidney disease) stage 3, GFR 30-59 ml/min ([facility]) 12/2015 COPD (chronic obstructive pulmonary disease) ([facility]) Essential hypertension 06/19/2016 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 08/10/2015 H/O abdominal aortic aneurysm repair 08/10/2015 H/O right heart catheterization High blood pressure History of heart attack History of [place] (myocardial infarction) 08/10/2015 Hyperlipidemia, unspecified 12/23/2019 Hypertensive chronic kidney disease with stage 1 through stage 4 chronic kidney disease, or unspecified chronic kidney disease 12/23/2019 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 stage 3b chronic kidney disease ([facility]) 07/02/2021 Hypertriglyceridemia Low HDL (under 40) Neuropathy Palpitations 12/23/2019 Permanent atrial fibrillation ([facility]) 08/10/2015 Presence of cardiac pacemaker 08/10/2015 Presence of drug coated stent in left circumflex coronary artery 08/10/2015 Sick sinus syndrome ([facility]) 08/10/2015 Stage 3b chronic kidney disease ([facility]) 12/21/2015 TB (pulmonary tuberculosis) Thrombocytopenia ([facility]) Previous Surgical History PAST SURGICAL HISTORY Procedure Laterality Date ABD AORTIC ANEURYSM REPAIR CORONARY STENT EA VESSEL 3-2008 x 2, drug eluting ILIAC PRINTED CIRCUIT LAYOUT TAPER W/WO STENT PACEMAKER DUAL CHAMBER TIER 0 [...] Apply to affected area three times daily. pspacllk-euszfvyqm-qshavcoget (NEOMYCIN) 1.75 mg-10,000 unit-0.025mg/mL drop Apply 3 drops to each ear twice daily. sfadaymk-jjddvqozd-rlgornmbozhvhm (CORTISPORIN) 3.5-10,000-1 mg/mL-unit/mL-% otic suspension Use 4 [...] (FLONASE) 50 mcg/actuation nasal spray Use 1 Duncan in each nostril daily at bedtime. aspirin, [...] starch, healthy oil intake (olive oil), healthy protein(fish) along the lines of the Mediterranean diet. [...] Patient agreeable to treatment plan. Ekta Schmidt APRN.MADY [address] [place] [address] documented in this encounterFairfield Medical Center03-15-2023 Miscellaneous Notes* Telephone Encounter - Ekta Mandujano APRN.CNP - 07/03/2022 6:36 PM EDT Agree with below. Ekta Mandujano APRN.MADY * Telephone Encounter - Vivienne Villarreal RN - 07/03/2022 2:36 PM EDT Jocelyn with [facility] calls to let provider know that on Friday06/30/2022 patient had a fall. Patient was lying down, woke up, went to get up and his legs gave out, falling to the ground landing onknees then buttocks. Patient reports knee was hurting prior to falling. Jocelyn reports knee is slightly swollen, warm to touch, and patient is having difficulty standing andwalking. Patient is able to walk around his [...] time. Vivienne Villarreal RN documented in this encounterFairfield Medical Center02-01-2023 Miscellaneous Notes* Telephone Encounter - Pam Goff RN - 05/22/2022 10:15 AM EST Patient has been identified by name and [...] you. Pam Goff RN documented in this encounterFairfield Medical Center01-04-2023 Miscellaneous Notes* Telephone Encounter - Carlos Miranda PERIPATOLOGIST - 04/24/2022 3:19 PM EST Patient has been identified by name and [...] BP: 04/08/2022 110/70 Please advise. Thank you. Carlos Miranda LPN documented in this encounterFairfield Medical Center01-04-2023 Hospital Discharge instructions Patient Education 04/24/2022 08:45:43 [...] need to report the following to your converter operator: Any draining or oozing from the site [...] Document Reviewed: 04/08/2014 ExitCare Patient Information 2014 [employer]. This information is not intended to replace advicegiven to you by your health care provider. Make sure you discuss any questions you have with your health care provider. Follow Up Care 03/07/2022 15:16:39 With:KAREEM SHEN MD Address: [address] [place] [address]- [phone] When:06/06/2022 14:30:00 [facility] 01-04-2023 Summary of episode note Discharge Instructions Thank you for allowing [facility] to assist you with your healthcare needs. The following is importantdischarge information regarding your hospital visit. Your Care Team BOO MARINA DO Your Diagnosis A-fib, Atrial fibrillation What to do next Scheduled Follow-Up Appointments Appointment Type When Where Contact InformationCV Remote Procedure HM 06/06/2022 10:00 AM EST [facility] CV OV 06/06/2022 02:30 PM EST [facility] Follow Up Appointments Follow Up with KAREEM SHEN MD When 06/06/2022 02:30 PM EST Where: [address] [place] [address]- [phone] The Following Activity and Diet Have Been [...] withyour home medications. What How Much When Why [...] need to report the following to your converter operator: Any draining or oozing from the site [...] Document Reviewed: 04/08/2014 ExitCare Patient Information 2015 [employer]. This information is not intended to replace advicegiven to you by your health care provider. Make sure you discuss any questions you have with your health care provider. Additional Information VACCINATE! IT SAVES LIVES! Members of the community who have not yet received the COVID-19 vaccine and would like to receive it can visit one of [facility] vaccine clinics. There are many vaccine clinic locations within the [facility]. For locations and available times, please visit [email or web address] It is important to note that some COVID mobile vaccine clinics are held outdoors and may be canceled in rainy or stormy conditions. To learn more about pediatric vaccinations (ages 5-11), we invite you to visit the [facility] webpage. [email or web address]/[email or web address] [email or web address].htmlTo learn more about the COVID-19 vaccine, we invite you to visit the [facility] website for a list of frequently asked questions. [email or web address].pdf [facility] Patient Portal Access Instructions: Stay connected with your healthcare team and access your personal medical information anytime with the [facility] Patient Portal.If you would like a full copy of your medical records, please contact the [facility] Medical Records Department, Friday through Friday between 8a.m. and 4:30p.m. Please follow the directions below to access the portal: 1.Access the email account you provided upon registration to the hospital.2.Look for an invitation email from [facility].3.Open the email and access the invitation link: Accept Invitation to [facility]4.Fill in the required tomlinson to create your account. Sign into [email or web address] with your username and password that you [...] you will allow to register on the [facility] Patient Portal for access to your information. You can also access the [facility] Patient Portal on the ClickGanic ketan. Simply click on Health Records under The Rowing Team and then click on the Catmoji logo. HOW TO SAFELY DISPOSE OF PRESCRIPTION [...] Call your local pharmacy or go to [email or web address] to find one close to you.3.Make use of household items: Use cat litter or old coffee grounds to dispose medications if other options arenot available. Mix your drugs with these household products, seal them in an airtight container andthrow it into the garbage. Call [facility]: [phone] to be sure your drugs can be [...] aware that I should contact my doctor. Patient/Occupational Rehabilitation Aide Signature: Date/Time: Relationship to Patient: Witness Name/Signature: Date/Time: [facility] [id number] Discharge summary Date of Service 04/24/22 Discharge Diagnosis A-fib (I48.91 - ICD-10-CM) Atrial fibrillation (I48.91 - ICD-10-CM) Additional Orders: Ordered: Discharge,04/24/22 8:32:00 EST, Discharged to: Home Ordered: Discharge Activity,May Shower, No heavy lifting for 3 days (nothing > 20 lbs), 238:32:00 EST Hospital Course HPI: 86-year-old with history of CAD, s/p PCI (2008) cardiac pacemaker upgraded to GLASSWARE VERIFIER-P on 12/04/21(previously dual chamber), HTN, HLP, PAD, carotid artery [...] 20 mEq oral tablet, extended release)1 tab(s) bymouth once a day. Take with food. Follow Up Follow Up with KAREEM SHEN MD When 06/06/2022 02:30 PM EST Where: [address] [facility] [place] [address]- [phone] Follow Up Labs/Studies Discharge Labs No Follow-up Labs Discharge Studies No Follow-up Studies Discharge Diet resume prior Discharge Activity Discharge Activity - Ordered -- May Shower, No heavy lifting for 3 days (nothing > 20 lbs), 04/24/22 8:32:00 EST Condition on Discharge stable Discharge Disposition home Information Provided To patient Digitally Signed by KAREEM SHEN MD on 04/24/2022 08:36 AM [facility] [id number] History and physical note Date of Service 04/23/2022 Chief Complaint a-fib -- here for ablation History of Present Illness 86-year-old with history of CAD, s/p PCI (2008) cardiac pacemaker upgraded to GLASSWARE VERIFIER-P on 12/04/21 (previously dual chamber), HTN, HLP, [...] s/p PCI (2008) cardiac pacemaker upgraded to GLASSWARE VERIFIER-P on 12/04/21 (previously dual chamber), HTN, HLP, [...] dysfunction. No CHF on exam today 3. GLASSWARE VERIFIER-P . [employer]tronic. Will reprogram after the procedure 4. Comorbid disease as above. Kareem Shen MD Cardiac Electrophysiology [phone] Problem List/Past Medical History Ongoing A-fib AAA [...] KAREEM SHEN MD on 04/24/2022 08:35 AM [facility] [id number] Evaluation + Plan noteExtracted from: Title:History and Physical Author:KAREEM SHEN MD Date:04/23/22 86-year-old with history of CAD, s/p PCI (2008) cardiac pacemaker upgraded to GLASSWARE VERIFIER-P on 12/04/21 (previously dual chamber), HTN, HLP, [...] dysfunction. No CHF on exam today 3. GLASSWARE VERIFIER-P . [employer]. Will reprogram after the procedure 4. Comorbid disease as above. Kareem Shen MD Cardiac Electrophysiology [phone] Future Appointments Appointment Date:06/06/2022 10:00:00 AM Scheduled Provider: Location:[facility] Appointment Type:CV Remote Procedure Appointment Date:06/06/2022 02:30:00 PM Scheduled Provider: Location:[facility] Appointment Type:CV OV [facility] 01-03-2023 Anesthesiology Consult note Patient: THANH COLEMAN [...] AAA (abdominal aortic aneurysm) / SNOMED CT 992486940 / Confirmed A-fib / SNOMED CT 77472297 / Confirmed Bradycardia / SNOMED CT 71473378 / Confirmed CKD (chronic kidney disease) / SNOMED CT 3495231256 / Confirmed Hypercholesterolemia / SNOMED CT 82524106 / Confirmed LV dysfunction / SNOMED CT 9512550966 / Confirmed, Active Problems (6) A-fib AAA (abdominal aortic aneurysm) Bradycardia CKD (chronic kidney disease) Hypercholesterolemia LV dysfunction Histories Past Medical History: Resolved Pacemaker at end of battery life ([id number]): Resolved. Procedure history: Cardioversion ([id number]) on 03/03/2020 at 84 Years. Comments: 11/22/2021 15:28 Pallavi Hernandez RN 12/2019 Echocardiogram ([id number]). Comments: 11/22/2021 15:26 Pallavi Hernandez RN CONCLUSION: [...] pressure is 38 mm Hg. Cardiac pacemaker ([id number]). Comments: 12/18/2021 10:29 Erlinda Hoffman RN. 12-04-2021 Upgrade to GLASSWARE VERIFIER-P LV lead added 4798, SN: [id number]. 12/03/2021 10:59 Erlinda Hoffman RN. 08-17-2012- [facility]- Now following with Dr. Shen as of 12-03-2021. [employer]onic PPM Advisa- A2DR01, SN: [id number]. RA lead 5086, SN: [id number]. RV lead 5086, SN: [id number] Hernia ([id number]). Comments: 12/03/2021 11:01 Elizabeth Atwood PERIPATOLOGIST Hernia Repair Lung ([id number]). 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 Comments: 03/07/2022 14:14 EST - BroDigna white PERIPATOLOGIST removal under left eye Social History Social [...] Weight Lbs 214.1 lb Weight Method Actual [place] Body Weight 74.99 kg Body Mass Index [...] records, Reviewed prior records. Assessment and Plan [place] [employer] of Anesthesiologists (ASA) physical status classification: [...] SILVIA KEENE MD on 04/23/2022 10:53 AM [facility] [id number] Miscellaneous Notes* Telephone Encounter - Job Morrison PA-C - 04/12/2022 11:29 AM EST Called pt with updated culture results. He states he is doing well, currently on Doxycycline. Will call back if any new or worsening symptoms. WOUND CULTURE Moderate Staphylococcus aureus Abnormal For wound culture, tissue or aspirates are superior to swab specimens. If a swab must be used, eSwab is preferred ([place] No. [id number]). This test was developed and its performance characteristics determined by the [facility] [place] ([facility]). It has not been cleared or approved by the FDA. -[facility] is regulated under CLIA as qualified to [...] Susceptible Job Morrison PA-C documented in this encounterFairfield Medical Center12-21-2022 NoteHNO ID: [id number] Author: Camryn Davila MD Service: ? Author [...] PA-C acting as a scribe for Camryn Davial MD. 04/10/2022 3:42 PM. I have confirmed [...] Camryn Davila MD, April 10, 2022 3:42 PM.[facility]12-21-2022 Instructions* Patient Instructions* Camryn Davila MD - [...] checks every 6 mo documented in this encounterFairfield Medical Center12-21-2022 History of Present illness Narrative* Camryn Davila MD - 04/10/2022 3:45 PM EST Pt. her for po visit. Healing well per pt. No pain or problems. A/P: 1. 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 documented in this encounterFairfield Medical Center12-19-2022 NoteHNO ID: [id number] Author: Zoraida Hodge APRN.RETAIL WAREHOUSE ASSOCIATE Service: ? Author Type: Nurse Practitioner Type: [...] cholesterol test Anticoagulant long-term use Aortic aneurysm ([facility]) s/p repair AAA Arteriosclerosis of coronary artery 12/23/2019 pacemaker, hyperlipidemia, hyperlipidemia At risk for stroke Atrial flutter ([facility]) 03/03/2020 CAD (coronary artery disease) pacemaker, hyperlipidemia, hyperlipidemia Chronic combined systolic and diastolic congestive heart failure ([facility]) 09/26/2020 CKD (chronic kidney disease) stage 3, GFR 30-59 ml/min ([facility]) 12/2015 COPD (chronic obstructive pulmonary disease) ([facility]) Essential hypertension 06/19/2016 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 08/10/2015 H/O abdominal aortic aneurysm repair 08/10/2015 H/O right heart catheterization High blood pressure History of heart attack History of [place] (myocardial infarction) 08/10/2015 Hyperlipidemia, unspecified 12/23/2019 Hypertensive [...] circumflex coronary artery 08/10/2015 Sick sinus syndrome ([facility]) 08/10/2015 Stage 3b chronic kidney disease ([facility]) 12/21/2015 TB (pulmonary tuberculosis) Thrombocytopenia (HCC) Previous Surgical History PAST SURGICAL HISTORY Procedure Laterality Date ABD AORTIC ANEURYSM REPAIR CORONARY STENT EA VESSEL 3-2008 x 2, drug eluting ILIAC PRINTED CIRCUIT LAYOUT TAPER W/WO STENT PACEMAKER DUAL CHAMBER TIER 0 [...] Apply to affected area three times daily. eqynsqjx-nsjatcgow-qhpdzrkarn (NEOMYCIN) 1.75 mg-10,000 unit-0.025mg/mL drop Apply 3 drops to each ear twice daily. szmhznzd-hypejikzw-chophrveniknlv (CORTISPORIN) 3.5-10,000-1 mg/mL-unit/mL-% otic suspension Use 4 [...] (FLONASE) 50 mcg/actuation nasal spray Use 1 Duncan in each nostril daily at bedtime. aspirin, enteric coated (ASPIRIN, ENTERIC COATED) 81 mg EC tablet Take 81 mg b (more content not included)...[facility]12-05-2022 NoteHNO ID: [id number] Author: Camryn Davila MD Service: ? Author [...] more week, then stop. Patient lives in [facility], 2 hrs away Patient will try to get photo sent in to [email or web address] In person appt 04/10/22 Sooner if issues I spent 5-10 minutes minutes providing this service. The patient or patient?s medical detail representative consented to this telephone encounter. I reviewed all pertinent data.[facility]11-28-2022 Miscellaneous Notes* Telephone Encounter - Wanda Mccollum LPN - 03/18/2022 3:05 PM EST Forms were faxed to other fax number below. * Telephone Encounter - Vivienne Villarreal RN - 03/18/2022 10:10 AM EST Jocelyn with [employer] calls to check on status of request. Jocelyn giving a second fax number to faxPOC to if first one doesn't go through. Fax number is [phone]. Vivienne Villarreal RN * Telephone Encounter - Ellen Taylor RN - 03/13/2022 8:41 AM EST Jocelyn from [employer] calls and states that she had faxed over a plan of care that she needs provider to sign and fax back. Jocelyn states to make sure to fax all 3 pages back. Ellen Taylor RN documented in this encounterFairfield Medical Center11-16-2022 NoteHNO ID: [id number] Author: Camryn Davila MD Service: ? Author [...] using erythromycin ointment twice a day ; [facility] patient taking erythromycin ointment to left lower lid skin graft and right postauricular incision four times a day x 1 week then twice daily x 1 more week, then stop. Warm compresses twice a day x 2 wks Patient lives in [facility], 2 hrs away Patient will have friend send photo in 1 week Friday ([email or web address]) or via [employer] Set up telephone call (patient without smart [...] Camryn Davila MD, March 06, 2022 4:12 PM.[facility]11-11-2022 Miscellaneous Notes* Telephone Encounter - Ellen Taylor [...] of Last Labs: 10/08/2021 documented in this encounterFairfield Medical Center11-11-2022 Miscellaneous Notes* Telephone Encounter - Nupur Grant Flora - 03/01/2022 1:55 PM EST Images from the original note were not included. Jacky Sanchez APRN.MADY You; Camryn Davila MD; Job Morrison PA-C; [...] MD You; Job Morrison PA-C; Jacky Sanchez APRN.RETAIL WAREHOUSE ASSOCIATE; Pamela Dave MD; Akilah Espinosa PA-C 14 minutes ago (1:40 PM) Have him come to [place] to see me today Or I think job in [place] Before 2:30pm * Telephone En[facility] - [facility] - 03/01/2022 1:28 PM EST His is calling today stating that his bandage came off in bed last night. She tried to put it back on and use the tape, but it's not really staying. What should she do? 's cell: [phone] * Telephone Encounter - Nupur Hines - 03/01/2022 8:36 AM EST Attempted to call the patient back but the mailbox was full and not accepting messages. Electronically signed by Nupurher [facility] at 03/01/2022 8:36 AM EST * Telephone Encounter - [facility]up[facility]her [facility] - 03/01/2022 8:36 AM EST Images from the original note were not included. Camryn Davila MD You; Jacky Sanchez APRN.CNP; Job Morrison PA-C; Pamela Dave MD; Akilah Espinosa PA-C; Ana Cespedes; Luke Lange Mgr 15 hours ago (4:34 PM) Ok sure ok to add 4:15pm Thanks C Electronically signed by Nupurher [facility] at 03/01/2022 8:36 AM EST * Telephone Encounter - Nupur Rudy [facility] - 02/28/2022 4:16 PM EST They'd like to have his post op at the [address] location on Fri instead of at the [place] [facility] on Friday. The [place] schedule is locked. They were looking at coming in anytime after 3:00 for his follow up. Okay to add? Electronically signed by Nupurher [facility] at 02/28/2022 4:17 PM EST documented in this encounterFairfield Medical Center11-11-2022 Miscellaneous Notes* Telephone Encounter - Jacky Sanchez [...] aphoto of the eye to Nupur's email ([email or web address]) Patient states he is doing well, no issues. All questions answered, return precautions given. Call office at with any questions or concerns. Jacky Sanchez APRN.CNP documented in this encounterFairfield Medical Center11-10-2022 Miscellaneous Notes* Telephone Encounter - Hallie Sánchez [...] additional treatment needed. Thanks documented in this encounterFairfield Medical Center11-10-2022 Miscellaneous Notes* Telephone Encounter - Akilah Espinosa PA-C - 02/28/2022 8:48 AM EST POD#1 Attempted to call and check on patient. Went straight to voicemail and mailbox is full. Call office at with any questions or concerns. Akilah Espinosa PA-C February 28, 2022 documented in this encounterFairfield Medical Center11-09-2022 Miscellaneous Notes* Telephone Encounter - Pamela Dave MD - 02/27/2022 8:38 PM EST Called patient re: restarting Eliquis after oculoplastic surgery earlier today. Informed patient that he should restart it 2 days after surgery. He understood. documented in this encounterFairfield Medical Center11-09-2022 Miscellaneous Notes* Telephone Encounter - Ana Thomas RN - 02/27/2022 12:10 PM EST Called patient, no answer, unable to leave message, will attempt again later. Per Dr Sweeney: BRYAN This pt's PPM was at the elective [...] change to be rescheduled with us. thanks bryan Thomas RN documented in this encounterFairfield Medical Center11-08-2022 NoteHNO ID: [id number] Author: Ana Maria Jolly MD Service: ? 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 DAVILA) SERVICE DATE: 02/26/2022 SERVICE TIME: 939 LOCATION: [address] [place] [address] REFERRING PROVIDER: Dr Kang PROCEDURE START TIME: [...] Available at Bedside: Inside pathology report # [id number] Pre-op Size: 1.1 cm - 2 cm, [...] well. TOTAL OPERATIVE TIME: (more content not included)...[facility] 02-25-2022 NoteHNO ID: [id number] Author: Camryn Davila MD Service: ? Author [...] types. Coordinated mohs surgery with dr. Jolly ([facility]) 02/26/22 02/27/22 [facility] REJ Discussed Mohs surgery Will coordinate [...] have stopped before; will try and contact grain loader to see if can hold ; patient has h/o afib ADDENDUM 02/26/22: Ok per Dr. Sweeney to hold Eliquis. Jacky Sanchez APRN.RETAIL WAREHOUSE ASSOCIATE Avoid aspirin, ibuprofen, nsaids, vitamin e , fish oil 2 wks prior and 1 wk post Stop Eliquis 2 days prior and 5 days post if ok with grain loader - Dr. Sweeney Nothing to eat or drink 8 hrs prior to surgery except medicines day of with small sip of water Will need coal tram driver due to anesthesia The patient was offered a surgery/procedure at a [facility] facility. The surgeon/proceduralist and patient have discussed [...] interaction for the medical decision making. Thanh Keens has consented to this virtual visit. Chief [...] documented and reviewed. Total Time Spent: 5-10 minutesSelect [facility] History of Present illness Narrative* Camryn Davila [...] types. [facility] 02/26/22 02/27/22 [facility] REJ Discussed Mohs surgery Will coordinate [...] have stopped before; will try and contact grain loader to see if can hold ; patient has h/o afib Avoid aspirin, ibuprofen, nsaids, vitamin e , fish oil 2 wks prior and 1 wk post Stop Eliquis 2 days prior and 5 days post if ok with grain loader Stop Coumadin 5 days prior and restart day of surgery if ok with cardiology Nothing to eat or drink 8 hrs prior to surgery except medicines day of with small sip of water Will need coal tram driver due to anesthesia The patient was offered a surgery/procedure at a [facility] facility. The surgeon/proceduralist and patient have discussed [...] been documented and reviewed. documented in this encounterFairfield Medical Center10-27-2022 Miscellaneous Notes* [facility] En[facility] - 02/14/2022 2:14 PM EDT Images from the original note were not included. Ana Maria Jolly MD You; Camryn Davila MD; Job Morrison PA-C; Amy Mccloud; Jacky Sanchez APRN.RETAIL WAREHOUSE ASSOCIATE; Ln Opht Surg Business Process Engineer; Avw Mohs Nurse Pool; yr Mohs Clinical Pool 11 minutes ago (2:02 PM) All- I have Mohs slots on 03/05, 03/07, and 03/08 in [place]. Let me know if any of these is most convenient with Dr. Davila's OR schedule and we will book patient for Mohs. Ana Maria Christianson * Telephone Encounter - Nupur Hines - 02/14/2022 1:49 PM EDT Images from the original note were not included. MD Cj Scott; Job Morrison PA-C; Amy Mccloud; Jacky Sanchez APRN.RETAIL WAREHOUSE ASSOCIATE; Ln Opht Surg Business Process Engineer; Ana Maria Jolly MD; Avw Mohs Nurse Pool 1 minute ago (1:47 PM) FINAL DIAGNOSIS A. Skin, left malar cheek, shave biopsy: - Basal cell carcinoma, nodular and trichoepitheliomatous types. Please coordiante mohs recon with me I think Dr. Jolly/s office? B, please place surg request Thanks C * Telephone Encounter - Nupur Rudy [facility] - 02/14/2022 10:27 AM EDT The patient has an appt with Dr. Davila set for 03/01 at the [facility]. Electronically signed by Nupurher [facility] at 02/14/2022 10:27 AM EDT * Telephone Encounter - Nupur Rud[facility] - 02/14/2022 10:26 AM EDT Images from the original note were not included. WILLIAM Dowling; Amy Mccloud; Jacky Sanchez APRN.RETAIL WAREHOUSE ASSOCIATE; Camryn Davila MD 2 hours ago (7:58 AM) When is Mohs scheduled? Dr. Davila has not seen the patient, can we please get him scheduled to see her. Can add to a day with less than 50pts, do not triple book Thanks Job Electronically signed by [facility] at 02/14/2022 10:26 AM EDT * Telephone Encounter - Amy Mccloud - 02/13/2022 3:[address] Jolly's office will be doing surgery on patient and requests MOHS to be coordinated at time of surgery. Please advise documented in [place] [address]-26-2022 Miscellaneous Notes* Telephone Encounter - Hallie Sánchez [...] at time of biopsy documented in this encounterFairfield Medical Center10-11-2022 History of Present illness Narrative* Young Kang [...] cholesterol test Anticoagulant long-term use Aortic aneurysm ([facility]) s/p repair AAA Arteriosclerosis of coronary artery 12/23/2019 pacemaker, hyperlipidemia, hyperlipidemia At risk for stroke Atrial flutter ([facility]) 03/03/2020 CAD (coronary artery disease) pacemaker, hyperlipidemia, hyperlipidemia Chronic combined systolic and diastolic congestive heart failure ([facility]) 09/26/2020 CKD (chronic kidney disease) stage 3, GFR 30-59 ml/min ([facility]) 12/2015 COPD (chronic obstructive pulmonary disease) ([facility]) Essential hypertension 06/19/2016 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 08/10/2015 H/O abdominal aortic aneurysm repair 08/10/2015 H/O right heart catheterization High blood pressure History of heart attack History of [place] (myocardial infarction) 08/10/2015 Hyperlipidemia, unspecified 12/23/2019 Hypertensive chronic kidney disease with stage 1 through stage 4 chronic kidney disease, or unspecified chronic kidney disease 12/23/2019 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 stage 3b chronic kidney disease ([facility]) 07/02/2021 Hypertriglyceridemia Low HDL (under 40) Neuropathy Palpitations 12/23/2019 Permanent atrial fibrillation ([facility]) 08/10/2015 Presence of cardiac pacemaker 08/10/2015 Presence of drug coated stent in left circumflex coronary artery 08/10/2015 Sick sinus syndrome ([facility]) 08/10/2015 Stage 3b chronic kidney disease ([facility]) 12/21/2015 TB (pulmonary tuberculosis) Thrombocytopenia ([facility]) Social History Tobacco Use Smoking status: [...] Apply to affected area three times daily. bfylxmyj-cmsfpatfv-vgrflolsbl (NEOMYCIN) 1.75 mg-10,000 unit-0.025mg/mL drop Apply 3 drops to each ear twice daily. tgoxtumq-mgvjzhgyc-apbawrovvrpydu (CORTISPORIN) 3.5-10,000-1 mg/mL-unit/mL-% otic suspension Use 4 [...] (FLONASE) 50 mcg/actuation nasal spray Use 1 Duncan in each nostril daily at bedtime. aspirin, [...] Past Histories independently gathered by the clinical support team member and the remaining scribed note accurately describes my personal service to the patient. 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 documented in this encounterFairfield Medical Center09-22-2022 Miscellaneous Notes* Telephone Encounter - Tamera Delarosa Ma - 01/10/2022 11:29 AM EDT Referral, demo, labs, ov faxed to Dr. Sydni Wallace's office. Pt notified, will have Dr. Wallace's office call pt to schedule. Tamera Delarosa Ma * Telephone Encounter - Ana Lilia Eason Pss - 01/10/2022 11:14 AM EDT Patient returned office call and would like to have order faxed to [facility] for scheduling. Patient doesn't want to travel outside of [place]. * Telephone Encounter - Tamera Delarosa Ma - 01/10/2022 11:11 AM EDT Pt notified and transferred to PSS to set up Nephrology appt. Tamera Delarosa Ma * Telephone Encounter - Boo Marina DO - 01/09/2022 8:25 PM EDT Please inform patient that his labs are showing that his serum creatinine renal function is continuing to be impaired, showing around stage 3-b chronic kidney disease concerns. Would recommend that he follows up with Cruise Counselor. BNP is elevated but stable, he has a known history of systolic chronic heart failure. Also his vitamin D levels are low. He needs to be taking vitamin D3 2000 international unit(s) oncea day supplement with a meal. Boo Marina DO documented in this encounterFairfield Medical Center09-21-2022 History of Present illness Narrative* Boo Marina DO - 01/09/2022 7:15 AM EDT CC: Thahn Coleman is a 86 year old male [...] smoking, refuses to quit. Continues to see Neonatal Critical Care Nurse regularly, denies any new symptoms as above. Recently had pacemaker replacement about [address] Shen, tolerated procedure well CKD, stage 3, no new changes in symptoms, asymptomatic. Has had some tingling in feet, mostly in toes distally, comes and goes. No leg cramping or sorenesswith ambulation. Is a long time smoker. Has been seen by EXERCISE PLANNER and an ANTONIA/PVR is ordered for him to have completed. 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/2020 CKD (chronic kidney disease) stage 3, GFR 30-59 ml/min ([facility]) 12/2015 COPD (chronic obstructive pulmonary disease) ([facility]) Essential hypertension 06/19/2016 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 08/10/2015 H/O abdominal aortic aneurysm repair 08/10/2015 H/O right heart catheterization High blood pressure History of heart attack History of [place] (myocardial infarction) 08/10/2015 Hyperlipidemia, unspecified 12/23/2019 Hypertensive chronic kidney disease with stage 1 through stage 4 chronic kidney disease, or unspecified chronic kidney disease 12/23/2019 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 stage 3b chronic kidney disease ([facility]) 07/02/2021 Hypertriglyceridemia Low HDL (under 40) Neuropathy Palpitations 12/23/2019 Permanent atrial fibrillation ([facility]) 08/10/2015 Presence of cardiac pacemaker 08/10/2015 Presence of drug coated stent in left circumflex coronary artery 08/10/2015 Sick sinus syndrome (HCC) 08/10/2015 Stage 3b chronic kidney disease (HCC) 12/21/2015 TB (pulmonary tuberculosis) Thrombocytopenia (HCC) PAST SURGICAL HISTORY Procedure Laterality Date ABD AORTIC ANEURYSM REPAIR CORONARY STENT EA VESSEL 3-2009 x 2, drug eluting ILIAC PRINTED CIRCUIT LAYOUT TAPER W/WO STENT PACEMAKER DUAL CHAMBER TIER 0 [...] Apply to affected area three times daily. tvkdmgze-aiilzobwz-mqttcshhyn (NEOMYCIN) 1.75 mg-10,000 unit-0.025mg/mL drop Apply 3 drops to each ear twice daily. skgbqajf-ctcbnepvk-cdfofxnegtritv (CORTISPORIN) 3.5-10,000-1 mg/mL-unit/mL-% otic suspension Use 4 [...] (FLONASE) 50 mcg/actuation nasal spray Use 1 Duncan in each nostril daily at bedtime. aspirin, [...] vaccine - ICD9: V04.89, ICD10: Z23 - AskU-Sijibang.comNTECH COVID-19 BIVALENT BOOSTER VACCINE, AGE 12+ YR [...] had recent pacemaker replacement surgery, f/u with Neonatal Critical Care Nurse - NT PRO BNP - COMP METABOLIC [...] 374.9, ICD10: H02.9 - needs to see Electrical Maintenance Engineer or canvas repairer for removal as d/w him again today [...] plan. See patient instructions. Boo Marina DO [address] [place] [address] documented in this encounterFairfield Medical Center08-19-2022 Miscellaneous Notes* Telephone Encounter - Francesca [facility] - 12/07/2021 2:55 PM EDT Patient has [...] this request. No need to notify patient. Francesca [facility] Electronically signed by [facility] at 12/07/2021 2:57 PM EDT documented in this encounterFairfield Medical Center08-19-2022 Miscellaneous Notes* Telephone Encounter - Amy Hernandez [...] advise. Amy Hernandez LPN documented in this encounterFairfield Medical Center08-17-2022 Summary of episode note Discharge Instructions Thank you for allowing [facility] to assist you with your healthcare needs. The following is importantdischarge information regarding your hospital visit. Your Care Team BOO MARINA DO What to do next Scheduled Follow-Up Appointments Appointment Type When Where Contact InformationCV OV Incision Check 12/18/2021 10:45 AM EDT [facility] CV Office Procedure ICD 03/06/2022 11:15 AM EST [facility] CV Remote Procedure HM 06/06/2022 10:00 AM EST [facility] Follow Up Appointments Follow Up with KAREEM SHEN MD When 03/06/2022 11:15 AM EST Why: This is your hospital follow up in the Device Clinic. Where: [address] [facility] [address] [place] [address]- [phone] Follow Up with KAREEM SHEN MD When 12/18/2021 10:45 AM EDT Why: This is your incision check in the Device Clinic. Where: [address] [address] [facility] [address] [place] [address]- [phone] The Following Activity and Diet Have Been [...] sends information from the device to your grain loader (heart doctor) office. How will I get [...] where you sleep. The monitor will automatically bean picker machine operator heart signals and send the information to [...] you have questions. [facility]: [phone] Ask for the Device Clinic or cabello-in extension [phone] or [phone] when prompted. Device Clinic Location: [facility] (not the physician office building). Enter the [place] lobby and take the elevators to the 2nd [...] Your device card will tell you the him specialists. Using the search box: [employer]: Lattitude Communicator quick start Patient Help: [employer]ellow[employer]: MyCareLink quick start Patient Help: [employer] Kush[employer] ([place]): [email or web address] quick start Patient Help: Other important information [...] lists the implant date, device model, and him specialists of your pacemaker. This information is not intended to replace advice given to you by your health care provider. Make sure you discuss any questions you have with your health care provider. Document Released: 12/30/2012 Document Revised: 03/10/2019 Document Reviewed: 03/10/2019 [employer] Patient Education 2020 [employer]. Additional Information VACCINATE! IT SAVES LIVES! Members of the community who have not yet received the COVID-19 vaccine and would like to receive it can visit one of [facility] vaccine clinics. There are many vaccine clinic locations within the [facility]. For locations and available times, please visit [email or web address] It is important to note that some COVID mobile vaccine clinics are held outdoors and may be canceled in rainy or stormy conditions. To learn more about pediatric vaccinations (ages 5-11), we invite you to visit the [facility] webpage. [email or web address] [email or web address] learn more about the COVID-19 vaccine, we invite you to visit the [facility] website for a list of frequently asked questions. [email or web address] [employer] Patient Portal Access Instructions: Stay connected with your healthcare team and access your personal medical information anytime with the [facility] Patient Portal.If you would like a full copy of your medical records, please contact the [facility] Medical Records Department, Friday through Friday between 8a.m. and 4:30p.m. Please follow the directions below to access the portal: 1.Access the email account you provided upon registration to the [facility].2.Look for an invitation email from [facility].3.Open the email and access the invitation link: Accept Invitation to [facility]4.Fill in the required tomlinson to create your account. Sign into [email or web address] with your username and password that you [...] you will allow to register on the [employer] Patient Portal for access to your information. You can also access the [employer] Patient Portal on the Gift Card Combo. Simply click on Health Records under The Rowing Team and then click on the [employer] logo. HOW TO SAFELY DISPOSE OF PRESCRIPTION [...] Call your local pharmacy or go to [email or web address] to find one close to you.3.Make use of household items: Use cat litter or old coffee grounds to dispose medications if other options arenot available. Mix your drugs with these household products, seal them in an airtight container andthrow it into the garbage. Call [facility]: [phone] to be sure your drugs can be [...] aware that I should contact my doctor. Patient/Occupational Rehabilitation Aide Signature: Date/Time: Relationship to Patient: Witness Name/Signature: Date/Time: [id number] Discharge instructions Patient Education 12/05/2021 07:21:25 [...] sends information from the device to your grain loader (heart doctor) office. How will I get [...] where you sleep. The monitor will automatically bean picker machine operator heart signals and send the information to [...] you have questions. [facility]: [phone] Ask for the Device Clinic or cabello-in extension [phone] or [phone] when prompted. Device Clinic Location: [facility] (not the physician office building). Enter the [facility] and take the elevators to the 2nd [...] Your device card will tell you the him specialists. Using the search box: [employer]: Natalia Communicator quick start Patient Help: [employer]: MyCareLink [...] lists the implant date, device model, and him specialists of your pacemaker. This information is not intended to replace advice given to you by your health care provider. Make sure you discuss any questions you have with your health care provider. Document Released: 12/30/2012 Document Revised: 03/10/2019 Document Reviewed: 03/10/2019 [employer] Patient Education 2020 [employer] Follow Up Care 12/03/2021 12:07:27 With:KAREEM SHEN MD Address: [address] [place] [address]- [phone] When:12/18/2021 10:45:00 Comments:This is your incision check in the Device Clinic. With:KAREEM SHEN MD Address: [address] [place] [address]- [phone] When:03/06/2022 11:15:00 Comments:This is your hospital follow up in the Device Clinic. [facility] 08-17-2022 Note ORIGINAL EXAMINATION: TWO XRAY VIEWS [...] Sign Date: 12/05/2021 6:35:07 AM Ordering Provider: [facility]08-16-2022 Note ORIGINAL EXAMINATION: TWO XRAY [...] Sign Date: 12/05/2021 6:35:07 AM Ordering Provider: [facility]08-12-2022 Miscellaneous Notes* Telephone Encounter - Vivienne Villarreal RN - 11/30/2021 4:27 PM EDT [facility] calls to request most recent OV note and pacemaker information. Patient is a self referral for pacemaker check/replacement. Faxed per request to [phone]. Vivienne Villarreal RN documented in this encounterFairfield [facility] Center08-11-2022 Miscellaneous Notes* Telephone Encounter - Vivienne Villarreal [...] him to schedule this appointment. Zoraida Hodge APRN.CNP documented in this encounterFairfield Medical Center07-05-2022 Miscellaneous Notes* Telephone Encounter - Ana Herndon [...] meal. Boo Marina DO documented in this encounterFairfield Medical Center06-28-2022 Miscellaneous Notes* Telephone Encounter - Giuliana Moore RN - 10/16/2021 4:50 PM EDT I was following up with patient due to canceled generator change out. Patient states that due to gas prices, he is unable to come to [place] and that is why he canceled 09/25/21 procedure. Patient was asked if he has rescheduled? He stated that he was under the impression that [facility] was going to reschedule him closer to home. Patient was educated that [facility] EP service provides services to the [facility] and that Dr. Sweeney does not perform procedures at [facility]. Patient stated that he will need to find a provider, to perform gen change procedure with CS vs LBB lead implant. Update sent to Dr. Sweeney. documented in this encounterFairfield Medical Center06-24-2022 Miscellaneous Notes* Telephone Encounter - Vivienne Villarreal [...] you. Vivienne Villarreal RN documented in this encounterFairfield Medical Center06-24-2022 Miscellaneous Notes* Telephone Encounter - Anil Perry LPN - 10/12/2021 3:12 PM EDT Patient phones requesting refills as follows: Pending Prescriptions Disp Refills LISINOPRIL 20 MG TABLET 30 tablet Sig: TAKE 1 TABLET BY MOUTH DAILY MEENA: Yes YUDELKA 10/08/21 NOV 01/07/22 Please review and advise. Anil Perry LPN documented in this encounterFairfield Medical Center06-21-2022 History of Present illness Narrative* Luh Rojas, OD - 10/09/2021 2:43 PM EDT 1. Eyelid lesion 11x9mm lesion upper cheek/below lower eyelid [facility] Recommended consultation with Dr. Davila [...] 09, 2021 2:43 PM documented in this encounterFairfield Medical Center06-13-2022 Miscellaneous Notes* Telephone Encounter - Boo Marina [...] but [facility] so has not scheduled. Leslie Matute RN Reason for Disposition [1] Systolic BP < 80 AND [2] NOT dizzy, lightheaded or weak Answer Assessment - Initial Assessment Questions 1. BLOOD PRESSURE :DENA Cowan @ [facility] calling to report Low BP [...] dizzy or lightheaded. Protocols used: LOW BLOOD [id number] documented in this encounterFairfield Medical Center06-10-2022 Miscellaneous Notes* Telephone Encounter - Zoraida Hodge APRN.CNP - 09/28/2021 4:13 PM EDT The following approved medication requests have been transmitted electronically. Signed Prescriptions Disp Refills zclxqkwq-tkijktlmf-jfimhbshkustlz (CORTISPORIN) 3.5-10,000-1 mg/mL-unit/mL-% otic suspension 10 mL 2 Sig: Use 4 Drops in the ears four times daily. Authorizing Provider: ZORAIDA HODGE APRN.CNP * Telephone Encounter - Carlos Miranda LPN - 09/28/2021 3:25 PM EDT Irena from [facility] pharmacy calling the drop that was sent in for patient is an eye drop. Asking if you wanted the Zlmhkjuz-kuahohqyv-wbdpatmkuwjhri for the ears? Please advise documented in this encounterFairfield Medical Center06-10-2022 History of Present illness Narrative* Zoraida Hodge [...] cholesterol test Anticoagulant long-term use Aortic aneurysm ([facility]) s/p repair AAA Arteriosclerosis of coronary artery 12/23/2019 pacemaker, hyperlipidemia, hyperlipidemia At risk for stroke Atrial flutter ([facility]) 03/03/2020 CAD (coronary artery disease) pacemaker, hyperlipidemia, hyperlipidemia Chronic combined systolic and diastolic congestive heart failure ([facility]) 09/26/2020 CKD (chronic kidney disease) stage 3, GFR 30-59 ml/min ([facility]) 12/2015 COPD (chronic obstructive pulmonary disease) ([facility]) Essential hypertension 06/19/2016 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 08/10/2015 H/O abdominal aortic aneurysm repair 08/10/2015 H/O right heart catheterization High blood pressure History of heart attack History of [place] (myocardial infarction) 08/10/2015 Hyperlipidemia, unspecified 12/23/2019 Hypertensive chronic kidney disease with stage 1 through stage 4 chronic kidney disease, or unspecified chronic kidney disease 12/23/2019 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 stage 3b chronic kidney disease (HCC) 07/02/2021 Hypertriglyceridemia Low HDL (under 40) Neuropathy Palpitations 12/23/2019 Permanent atrial fibrillation ([facility]) 08/10/2015 Presence of cardiac pacemaker 08/10/2015 Presence of drug coated stent in left circumflex coronary artery 08/10/2015 Sick sinus syndrome ([facility]) 08/10/2015 Stage 3b chronic kidney disease ([facility]) 12/21/2015 TB (pulmonary tuberculosis) Thrombocytopenia ([facility]) Previous Surgical History PAST SURGICAL HISTORY Procedure Laterality Date ABD AORTIC ANEURYSM REPAIR CORONARY STENT EA VESSEL 3-2008 x 2, drug eluting ILIAC PRINTED CIRCUIT LAYOUT TAPER W/WO STENT PACEMAKER DUAL CHAMBER TIER 0 [...] (FLONASE) 50 mcg/actuation nasal spray Use 1 Duncan in each nostril daily at bedtime. aspirin, [...] 10,000 UNIT-GRAMICIDIN 0.025MG/ML EYE DROPS Zoraida Hodge APRN.RETAIL WAREHOUSE ASSOCIATE documented in this encounterFairfield Medical Center06-09-2022 Miscellaneous Notes* Telephone Encounter - Vivienne Villarreal [...] on your feet. 7. OTHER SYMPTOMS: None nurse (Jocelyn) reports patient has an equally strong pulse to both feet. No discoloration or warmth noted. Afebrile. Protocols used: NEUROLOGIC [id number] documented in this encounterFairfield Medical Center05-27-2022 Miscellaneous Notes* Telephone Encounter - Ana Thomas RN - 09/14/2021 12:07 PM EDT Spoke to patient who reports not [facility] change out due tocost prohibitive. Asking about [facility]. Will discuss with Dr Sweeney and update patient accordingly. Ana Thomas RN * Telephone Encounter - Prisca PichardoDexter - 09/12/2021 2:54 PM EDT September 12, 2021 Patient Contact Number: [phone] Patient last seen within the last year: Yes Reason For Call: Other Issue: Upcoming Surgery- Patient called to speak with Nurse or Dr. Sweeney- He has some concerns & questions. Physician:Jayjay Sweeney MD Patient was informed that non-urgent calls may be returned within the next two business days. Yes Prisca Grove documented in this encounterFairfield Medical Center05-27-2022 Miscellaneous Notes* Telephone Encounter - Amy Hernandez LPN - 09/14/2021 10:52 AM EDT Patient phones requesting refills as follows: Pending Prescriptions Disp Refills FUROSEMIDE 20 MG TABLET 30 tablet Sig: TAKE 1 TABLET BY MOUTH DAILY AFTER BREAKFAST *FOR SWELLING MEENA: Yes YUDELKA-07/04/21 Labs-07/04/21 NOV-10/08/21 med filled 04/05/21 Please review and advise. Amy Hernandez LPN documented in this encounterFairfield Medical Center05-25-2022 Miscellaneous Notes* Telephone Encounter - Graciela Manzano LPN - 09/12/2021 4:40 PM EDT Pt. informed. Graciela Manzano LPN * Telephone Encounter - Boo Marina DO - 09/11/2021 3:22 PM EDT This will need to be addressed by Neonatal Critical Care Nurse group as I can't do these procedures in primary care Boo Marina DO * Telephone Encounter - Raya Teixeira Ma - 09/11/2021 1:[address] Marina did review his appointment history 09/21 patient is getting EKG/Xray/and pacemaker checked with cardio. Than 09/25 patient is having surgery for pacemaker removal. Kiara/Brit can not do these since invasive. [facility] said in order to do [...] [facility] Patient noticed there are several appts for him in [place]. Reports there is absolutely no way he can go to [place]- reports he has no money for gas. Asking pcp to call him to discuss this: [phone]. Asking if he can get thesetests done closer to home? documented in this encounterFairfield Medical Center05-04-2022 Miscellaneous Notes* Telephone Encounter - Kaylyn Loza [...] length of case: 1 HOUR Device Company: [employer] Patient: No Type of Bed: LESS THAN 23 HOURS Medication to be stopped(please specify medication/timeframe): Yes hold Eliquis 1 full day prior. documented in this encounterFairfield Medical Center05-02-2022 History of Present illness Narrative* Jayjay Sweeney MD - 08/20/2021 8:39 AM EDT device at [facility] RV pacing 60%. EF 45% by OSH TTE. Proceed with generator change with possible LV or LBB lead addition if SC vein is patent. hold Eliquis 1 full day prior. Jayjay Sweeney MD documented in this encounterFairfield Medical Center03-24-2022 Miscellaneous Notes* Telephone Encounter - Eliza Kay Ma - 07/12/2021 3:44 PM EDT POC was faxed 07/04. Will refax today. 07/12 * Telephone Encounter - Sahara Pathak RN - 07/12/2021 3:23 PM EDT Faith from [facility] called in and reports that she faxed over and POC on 06/29/21. The POC was for 06/28/21 through 08/26/21. She is asking if provider can approve and fax back to the number on the papers. If it cannot be found call her back. Thank you. documented in this encounterFairfield Medical Center02-25-2022 History of Present illness Narrative* Michelle Patiño, RT(R) - 06/15/2021 2:00 PM EST Radiology Service Progress Note PATIENT NAME: Thanh Coleman DATE OF SERVICE: June 15, 2021 TIME: 2:04 PM PATIENT IDENTITY VERIFICATION COMPLETED USING TWO (2) IDENTIFIERS: Name and Date of confirmedby patient verbally. FALL SCREENING: Has the patient had 2 falls in the last year or 1 fall with injury or currently using an Ambulatory Assistive Device (Walker, Cane, Wheelchair, Crutches, etc.)? No PATIENT GENDER DATA: Male PATIENT RELEVANT IMPLANT DATA REVIEWED: Not Applicable RADIOLOGY DEPARTMENT: General X-ray: Exam(s) Completed: Upper Extremity X- Ray(s): Hand, left PERIPHERAL IV DATA: Not applicable SIGNED BY: RT Forrest(R) June 15, 2021 2:04 PM documented in this encounterFairfield Medical Center03-08-2021 History of Present illness Narrative* Kerri BianchiRt), Rekha - 06/26/2020 2:00 PM EST Radiology Service Progress Note PATIENT NAME: Thanh Coleman DATE OF SERVICE: June 26, 2020 TIME: 1:56 PM PATIENT IDENTITY VERIFICATION COMPLETED USING TWO (2) IDENTIFIERS: Name and Date of confirmedby patient verbally. FALL SCREENING: Has the patient had 2 falls in the last year or 1 fall with injury or currently using an Ambulatory Assistive Device (Walker, Cane, Wheelchair, Crutches, etc.)? No PATIENT GENDER DATA: Male PATIENT RELEVANT IMPLANT DATA REVIEWED: Yes RADIOLOGY DEPARTMENT: General X-ray: Exam(s) Completed: Chest X-Ray PERIPHERAL IV DATA: Not applicable SIGNED BY: RT Arnold June 26, 2020 1:56 PM documented in this encounterFairfield Medical Center09-25-2020 History of Past illness Narrative* Problem Noted [...] of this encounter (statuses as of 07/12/2021) [facility] Narrative* Problem Noted [...] of this encounter (statuses as of 08/16/2021) [facility] Past [facility] Narrative* Problem Noted [...] of this encounter (statuses as of 08/20/2021) [facility] of Past illness Narrative* Problem Noted [...] of this encounter (statuses as of 08/22/2021) [facility] Past illness Narrative* Problem Noted [...] of this encounter (statuses as of 08/22/2021) [facility] Narrative* Problem Noted [...] of this encounter (statuses as of 09/04/2021) [facility] Narrative* Problem Noted [...] of this encounter (statuses as of 09/12/2021) [facility] Narrative* Problem Noted [...] of this encounter (statuses as of 09/13/2021) [facility] Narrative* Problem Noted [...] of this encounter (statuses as of 09/14/2021) [facility] Narrative* Problem Noted [...] of this encounter (statuses as of 09/14/2021) [facility] Narrative* Problem Noted [...] of this encounter (statuses as of 09/28/2021) [facility] Narrative* Problem Noted [...] of this encounter (statuses as of 09/28/2021) [facility] Narrative* Problem Noted [...] of this encounter (statuses as of 10/01/2021) [facility] Narrative* Problem Noted [...] of this encounter (statuses as of 10/09/2021) [facility] Narrative* Problem Noted [...] of this encounter (statuses as of 10/12/2021) [facility] Narrative* Problem Noted [...] of this encounter (statuses as of 10/15/2021) [facility] Narrative* Problem Noted [...] of this encounter (statuses as of 10/16/2021) [facility] Narrative* Problem Noted [...] of this encounter (statuses as of 10/23/2021) [facility] Narrative* Problem Noted [...] of this encounter (statuses as of 11/20/2021) [facility] Narrative* Problem Noted [...] of this encounter (statuses as of 11/29/2021) [facility] Narrative* Problem Noted [...] of this encounter (statuses as of 11/30/2021) [facility] Narrative* Problem Noted [...] of this encounter (statuses as of 12/07/2021) [facility] Narrative* Problem Noted [...] of this encounter (statuses as of 12/07/2021) [facility]* Problem Noted [...] of this encounter (statuses as of 12/07/2021) [facility]* Problem Noted [...] of this encounter (statuses as of 01/09/2022) [facility]* Problem Noted [...] of this encounter (statuses as of 01/10/2022) [facility]* Problem Noted [...] of this encounter (statuses as of 01/29/2022) [facility]* Problem Noted [...] of this encounter (statuses as of 01/29/2022) [facility]* Problem Noted [...] of this encounter (statuses as of 02/13/2022) [facility]* Problem Noted [...] of this encounter (statuses as of 02/14/2022) [facility]* Problem Noted [...] of this encounter (statuses as of 02/19/2022) [facility]* Problem Noted [...] of this encounter (statuses as of 02/25/2022) [facility]* Problem Noted [...] of this encounter (statuses as of 02/27/2022) [facility]* Problem Noted [...] of this encounter (statuses as of 02/28/2022) [facility]* Problem Noted [...] of this encounter (statuses as of 03/01/2022) [place] [address]-25-2020 History of Past illness Narrative* Problem Noted [...] of this encounter (statuses as of 03/01/2022) [facility]* Problem Noted [...] of this encounter (statuses as of 03/01/2022) [facility]* Problem Noted [...] of this encounter (statuses as of 03/05/2022) [facility]* Problem Noted [...] of this encounter (statuses as of 03/18/2022) [facility]* Problem Noted [...] of this encounter (statuses as of 04/10/2022) [facility]* Problem Noted [...] of this encounter (statuses as of 04/14/2022) [facility]* Problem Noted [...] of this encounter (statuses as of 04/26/2022) [facility]* Problem Noted [...] of this encounter (statuses as of 05/22/2022) [facility] Problem Noted [...] of this encounter (statuses as of 07/04/2022) [facility]* Problem Noted [...] of this encounter (statuses as of 07/08/2022) [facility] Problem Noted [...] of this encounter (statuses as of 07/25/2022) [facility]* Problem Noted [...] of this encounter (statuses as of 08/30/2022) [facility]* Problem Noted [...] of this encounter (statuses as of 09/02/2022) [facility]* Problem Noted [...] of this encounter (statuses as of 09/27/2022) [facility]* Problem Noted [...] of this encounter (statuses as of 10/09/2022) [facility] Problem Noted [...] of this encounter (statuses as of 10/09/2022) [facility]* Problem Noted [...] of this encounter (statuses as of 10/22/2022) [facility]* Problem Noted [...] of this encounter (statuses as of 10/22/2022) [facility] Problem Noted [...] of this encounter (statuses as of 12/04/2022) [facility] Problem Noted [...] of this encounter (statuses as of 12/06/2022) [facility]* Problem Noted [...] of this encounter (statuses as of 12/11/2022) [facility]* Problem Noted [...] of this encounter (statuses as of 12/12/2022) [facility]* Problem Noted [...] of this encounter (statuses as of 12/13/2022) [facility]* Problem Noted [...] of this encounter (statuses as of 12/13/2022) [facility]* Problem Noted [...] of this encounter (statuses as of 12/16/2022) [facility]* Problem Noted [...] pressure 07/30/19 17 History of heart attack 0 07/2020 documented as of this encounter (statuses as of 12/18/2022) [facility] N[facility]* Problem Noted [...] of this encounter (statuses as of 02/25/2023) [facility] Future App[facility]ments Appointment Date:12/18/2021 10:45:00 AM Scheduled Provider: Location:[facility] Appointment Type:CV OV Incision Check Appointment Date:03/06/2022 11:15:00 AM Scheduled Provider: Location:[facility] Appointment Type:CV Office Procedure ICD Appointment Date:06/06/2022 10:00:00 AM Scheduled Provider: Location:[facility] Appointment Type:CV Remote Procedure [facility] Evaluation + Plan [facility] Evaluation + Plan note Future Appointments Appointment Date:02/11/2023 03:45:00 PM Scheduled Provider:Johnny VILLEDA MD Location:[facility]iology [facility] Appointment Type:Cardiology Follow Up ([facility]) Future Scheduled Tests Laboratory* Lipid Panel 01/03/23 Radiology* [facility] Appointment Date:03/14/2023 03:45:00 PM Scheduled Provider:Johnny VILLEDA MD [facility] Appointment Type:Cardiology Follow Up (FT) Future Scheduled Tests Laboratory* CBC w/ Auto Diff 02/11/23 Radiology* NM Myocardial Spect Rest/Stress 1 Day [facility] Future App[facility]ments Appointment Date:03/11/2023 01:00:00 PM Scheduled Provider:Carlos Castro CNP [place] [facility] Appointment Type:BADH Follow Up Appointment Date:03/14/2023 03:45:00 PM Scheduled Provider:Johnny VILLEDA MD [facility] Appointment Type:Cardiology Follow Up (FT) Future Scheduled Tests Laboratory* CBC w/ Auto Diff 02/11/23 Radiology* NM Myocardial Spect Rest/Stress 1 Day 02/11/23 [facility] Evaluation + Plan note Future Appointments Appointment Date:03/11/2023 01:00:00 PM Scheduled Provider:Carlos Castro CNP Location:[facility] Appointment Type:BADH Follow Up Appointment Date:03/27/2023 01:00:00 PM Scheduled Provider: Location:[facility] Appointment Type:NM Myocard Spect Multi Rest/Stress-Res Appointment Date:03/27/2023 02:00:00 PM Scheduled Provider: Location:[facility] Appointment Type:NM Myocard Spect Multi Rest/Stress - R Appointment Date:03/27/2023 02:30:00 PM Scheduled Provider: Location:[facility] Appointment Type:NM Myocard Spect Multi Rest/Stress-Str Appointment Date:03/27/2023 03:30:00 PM Scheduled Provider: Location:[facility] Appointment Type:NM Myocar Spect Multi Rest/Stress - St Future Scheduled Tests Laboratory* CBC w/ Auto Diff 02/11/23 Radiology* NM Myocardial Spect Rest/Stress 1 Day [facility] Appointment Date:03/14/2023 09:40:00 AM Scheduled Provider:Nanci Jarvis MD Location:[facility] Appointment Type[facility] Follow Up w/TCM Appointment Date:03/27/2023 01:00:00 PM Scheduled Provider: Location:[facility] Appointment Type:NM Myocard Spect Multi Rest/Stress-Res Appointment Date:03/27/2023 02:00:00 PM Scheduled Provider: Location:[facility] Appointment Type:NM Myocard Spect Multi Rest/Stress - R Appointment Date:03/27/2023 02:30:00 PM Scheduled Provider: [facility] Appointment Type:NM Myocard Spect Multi Rest/Stress-Str Appointment Date:03/27/2023 03:30:00 PM Scheduled Provider: [facility] Appointment Type:NM Myocar Spect Multi Rest/Stress - St Appointment Date:04/10/2023 01:30:00 PM Scheduled Provider:Johnny VILLEDA MD [facility]:Cardiology Follow Up (FT) Appointment Date:05/07/2023 10:45:00 AM Scheduled Provider: Location:[facility] Appointment Type:Surgery FT Future Scheduled Tests Laboratory* TIBC Calculated 03/11/23 * CBC w/ Auto Diff 02/11/23 * Ferritin 03/11/23 * Folate Level 03/11/23 * Iron Level 03/11/23 * Iron Percent Saturation 03/11/23 * Transferrin 03/11/23 Radiology* NM Myocardial Spect Rest/Stress 1 Day 03/27/23 [facility] Evaluation + Plan note Future Appointments Appointment Date:03/27/2023 01:00:00 PM Scheduled Provider: Location[facility] Appointment Type:NM Myocard Spect Multi Rest/Stress-Res Appointment Date:03/27/2023 02:00:00 PM Scheduled Provider: [facility] Appointment Type:NM Myocard Spect Multi Rest/Stress - R Appointment Date:03/27/2023 02:30:00 PM Scheduled Provider: [facility] Appointment Type:NM Myocard Spect Multi Rest/Stress-Str Appointment Date:03/27/2023 03:30:00 PM Scheduled Provider: [facility] Appointment Type:NM Myocar Spect Multi Rest/Stress - St Appointment Date:04/10/2023 01:30:00 PM Scheduled Provider:Johnny VILLEDA MD [facility] Appointment Type:Cardiology Follow Up (FT) Future Scheduled Tests Laboratory* TIBC Calculated 03/11/23 * CBC w/ Auto Diff 02/11/23 * Ferritin 03/11/23 * Folate Level 03/11/23 * Iron Level 03/11/23 * Iron Percent Saturation 03/11/23 * Transferrin 03/11/23 Radiology* NM Myocardial Spect Rest/Stress 1 Day 03/27/23 [facility] [place] Evaluation + Plan note Future Appointments Appointment Date:04/10/2023 01:30:00 PM Scheduled Provider:Johnny VILLEDA MD [facility] Appointment Type:Cardiology Follow Up (FT) Future Scheduled Tests Laboratory* TIBC Calculated 03/11/23 * CBC w/ Auto Diff 02/11/23 * Ferritin 03/11/23 * Folate Level 03/11/23 * Iron Level 03/11/23 * Iron Percent Saturation 03/11/23 * Transferrin 03/11/23 [facility]ments Appointment Date:07/07/2023 03:45:00 PM Scheduled Provider:Johnny VILLEDA MD [facility] Appointment Type:Cardiology Follow Up (FT) Future Scheduled Tests Laboratory* TIBC Calculated 03/11/23 * CBC w/ Auto Diff 02/11/23 * Ferritin 03/11/23 * Folate Level 03/11/23 * Iron Level 03/11/23 * Iron Percent Saturation 03/11/23 * Transferrin 03/11/23 [facility]ments Appointment Date:10/30/2023 02:30:00 PM Scheduled Provider: [facility] Type:NCV Pacemaker (FT) Future Scheduled Tests Laboratory* TIBC Calculated 03/11/23 * CBC w/ Auto Diff 02/11/23 * Ferritin 03/11/23 * Folate Level 03/11/23 * Iron Level 03/11/23 * Iron Percent Saturation 03/11/23 * Transferrin 03/11/23 [facility] Future App[facility]ments Appointment Date:11/13/2023 03:30:00 PM Scheduled Provider:Elijah Turner PA-C [facility] Type:Cardiology Follow Up (FT) Appointment Date:04/22/2024 02:30:00 PM Scheduled Provider: [facility] Appoint[facility] Type:NCV Pacemaker (FT) Future Scheduled Tests Laboratory* TIBC Calculated 03/11/23 * CBC w/ Auto Diff 02/11/23 * Ferritin 03/11/23 * Folate Level 03/11/23 * Iron Level 03/11/23 * Iron Percent Saturation 03/11/23 * Transferrin 03/11/23 [facility] App[facility]ments Appointment Date:02/16/2024 03:45:00 PM Scheduled Provider:Brady Marquez MD [facility]Cardiology Follow Up (FT) Appointment Date:04/22/2024 02:30:00 PM Scheduled Provider: [facility] Appoint[facility] Type:NCV Pacemaker (FT) Future Scheduled Tests Laboratory* TIBC Calculated 03/11/23 * CBC w/ Auto Diff 02/11/23 * Ferritin 03/11/23 * Folate Level 03/11/23 * Iron Level 03/11/23 * Iron Percent Saturation 03/11/23 * Transferrin 03/11/23 [facility] Evaluation + Plan note Future Appointments Appointment Date:01/23/2024 04:00:00 PM Scheduled Provider:Nanci Jarvis MD Location:[facility] Appointment Type: ER/Hospital Follow Up Appointment Date:01/28/2024 02:45:00 PM Scheduled Provider:Elijah Turner PA-C [facility] Type:Cardiology Follow Up (FT) Appointment Date:02/16/2024 03:45:00 PM Scheduled Provider:Brady Marquez MD Location[facility] Appointment Type:Cardiology Follow Up (FT) Appointment Date:04/22/2024 02:30:00 PM Scheduled Provider: [facility] Appointment Type:NCV Pacemaker (FT) Future Scheduled Tests Laboratory* TIBC Calculated 03/11/23 * CBC w/ Auto Diff 02/11/23 * Ferritin 03/11/23 * Folate Level 03/11/23 * Iron Level 03/11/23 * Iron Percent Saturation 03/11/23 * Transferrin 03/11/23 [facility] evaluation + Plan note Future Appointments Appointment Date:04/22/2024 02:30:00 PM Scheduled Provider: [facility] Appointment Type:NCV Pacemaker (FT) Appointment Date:08/16/2024 03:45:00 PM Scheduled Provider:Brady Marquez MD Location[facility] Appointment Type:Cardiology Follow Up (FT) Future Scheduled Tests Laboratory* TIBC Calculated 03/11/23 * Ferritin 03/11/23 * Folate Level 03/11/23 * Iron Level 03/11/23 * Iron Percent Saturation 03/11/23 * Transferrin 03/11/23 [facility] Evaluation note* Diagnosis Chronic systolic congestive heart failure (HCC)- Primary Chronic systolic heart failure [facility] Diagnosis Numbness of toes- Primary Disturbance of skin sensation Neuropathy Mononeuritis of unspecified site 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 [facility] Diagnosis Eczema of both external ears- Primary Chronic eczematous otitis externa of both ears [facility] Diagnosis Eyelid lesion- Primary Unspecified disorder of eyelid Squamous blepharitis of upper and lower eyelids of both eyes Pseudophakia of both eyes Lens replaced by other means Right epiretinal membrane Macular puckering of 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 [facility] Diagnosis Atrial fibrillation, persistent (HCC) Atrial fibrillation [facility] Diagnosis Numbness of toes- Primary Disturbance of skin sensation Neuropathy Mononeuritis of unspecified site Paresthesia of foot, bilateral PVD (peripheral vascular disease) (HCC) Peripheral vascular disease, unspecified [facility] Dyslipidemia Other and unspecified hyperlipidemia Atrial fibrillation, persistent (HCC) Atrial fibrillation [facility] Diagnosis Chronic combined systolic and diastolic [...] kidney disease (HCC) [facility] Diagnosis Elevated serum creatinine- Primary Other nonspecific findings on examination of blood Stage 3b chronic kidney disease (HCC) [facility] Diagnosis Intermediate stage nonexudative age-related macular degeneration of both eyes- Primary Corneal guttata of both eyes Eyelid lesion Unspecified disorder of eyelid Squamous blepharitis of upper and lower eyelids of both eyes Pseudophakia of both eyes Lens replaced by other means Right epiretinal membrane Macular puckering of retina Vitreous degeneration and detachment of both eyes [facility] Diagnosis Neoplasm of unspecified behavior of bone, soft tissue, and skin- Primary [facility] Diagnosis Basal cell carcinoma (BCC) of skin of left lower eyelid including canthus- Primary [facility] Diagnosis Basal cell carcinoma (BCC) of skin of left lower eyelid including canthus- Primary Basal cell carcinoma (BCC) of skin of left lower eyelid including canthus [facility] Diagnosis Hypertriglyceridemia Pure hyperglyceridemia [facility] Diagnosis Hypertriglyceridemia Pure hyperglyceridemia [facility]* Diagnosis Post-operative state- Primary Other postprocedural status Wound dehiscence Disruption of external operation (surgical) wound [facility] Diagnosis Atrial fibrillation, persistent (HCC) Atrial fibrillation [facility] Diagnosis Essential hypertension- Primary Unspecified essential [...] Generalized anxiety disorder [facility] Diagnosis Elevated serum creatinine- Primary Other nonspecific findings on examination of blood [facility] Diagnosis DANIEL (generalized anxiety disorder) Generalized anxiety disorder [facility] Diagnosis Memory changes- Primary Memory loss Age-related physical debility 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 of psychosis Ischemic stroke (HCC) Forgetfulness Other general symptoms DANIEL (generalized anxiety disorder) Generalized anxiety disorder Mental disability Unspecified intellectual disabilities Hypertriglyceridemia Pure hyperglyceridemia [facility]* Diagnosis 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)- Primary Pain and swelling of toe of right foot Chronic combined systolic and diastolic congestive heart failure (HCC) Chronic combined systolic and diastolic heart failure Stage 3b chronic kidney disease (HCC) [facility] Diagnosis Swelling of left hand [facility] Diagnosis Rhonchi Abnormal chest sounds [facility] Diagnosis Paresthesias- Primary Disturbance of skin sensation Memory loss Atrial fibrillation, unspecified type (CMS/HCC) Cerebral infarction, unspecified mechanism (CMS/HCC) [facility] Diagnosis Idiopathic peripheral neuropathy- Primary Unspecified hereditary and idiopathic peripheral neuropathy Paresthesias Disturbance of skin sensation Hallux rigidus of left foot- Primary Hallux rigidus of right foot Capsulitis of metatarsophalangeal (MTP) joint of right foot Capsulitis of metatarsophalangeal (MTP) joint of left foot Other polyneuropathy [facility]* Diagnosis Cerebral infarction, unspecified mechanism (CMS/HCC)- Primary Alzheimer disease (CMS/HCC) Alzheimer's disease Atrial fibrillation, unspecified type (CMS/HCC) Inadequate sleep hygiene Other specific disorder of sleep of nonorganic origin Peripheral neuropathy, idiopathic Weakness Other malaise and fatigue Debility Unspecified debility Hallux rigidus of left foot- Primary Hallux rigidus of right foot Capsulitis of metatarsophalangeal (MTP) joint of right foot Capsulitis of metatarsophalangeal (MTP) joint of left foot Other polyneuropathy [facility] Diagnosis Capsulitis of metatarsophalangeal (MTP) joint of right foot- Primary Hallux rigidus of left foot Hallux rigidus of right foot Capsulitis of metatarsophalangeal (MTP) joint of left foot Other polyneuropathy Abscess, toe, left Onychocryptosis Ingrowing nail Toe pain, left Pain in soft tissues of limb [facility] Diagnosis Acute gout of left foot, unspecified cause- Primary Abscess, toe, left Capsulitis of metatarsophalangeal (MTP) joint of right foot Onychocryptosis Ingrowing nail Hallux rigidus of right foot Hallux rigidus of left foot Capsulitis of metatarsophalangeal (MTP) joint of left foot Other polyneuropathy [facility] Diagnosis Acute gout of left foot, unspecified cause- Primary Hallux rigidus of right foot Hallux rigidus of left foot Other polyneuropathy [facility]* Diagnosis 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 [facility] Narrative No data available for this section [facility] Hospital Discharge instructions No data available for this section [facility] KAREEM SHEN MD: SIGN, VERIFY Event Display: Pacemaker Removal to [employer] VERIFIER-P - CV Authored Date: [id number] [facility] Note* KAREEM SHEN MD: SIGN, VERIFY Event Display: Ablation RF-CARTO - CV [facility] Progress note No data available for this section [facility] Reason for referral (narrative)* Outpatient Procedure (Routine) - Authorized Specialty Diagnoses / Procedures Referred By Shani xavier Referred To [facility] Diagnoses Numbness of toes Neuropathy Procedures PVR ANK PRESS [facility] NON-INVAS PHYSIOLOGIC STD EXTREMITY ART 2 LEVEL Zoraida Hodge APRN.CNP [address] [place] [address] [facility] [address] [place] [id number] Referral ID Status Reason Start Date Expiration Date Visits Requested Visits Authorized [id number] Authorized Auto-Generat ed Referral 09/28/2021 04/20/2022 1 1 [facility] for referral (narrative) Referred by: Nanci Jarvis MD [facility] Reason for referral (narrative)* Diagnostic Procedure Only (Routine) - Closed Specialty Diagnoses / Procedures Referred By Shani xavier Referred To Contact XR IMAGING Diagnoses Swelling of left hand Procedures XR HAND GENERAL 3V PA/LAT/OBL LEFT RADEX HAND MINIMUM 3 VIEWS Boo Marina DO [address] [place] [address] [place] [address] Referral ID Status Reason Start Date Expiration Date V isits Requested Visits Authorized [id number] Closed Auto-Generate d Referral 06/15/2021 04/20/2022 1 1 [facility] for visit Narrative* Diagnostic Procedure Only (Routine) - Closed Specialty Diagnoses / Procedures Referred By Contac t Referred To Contact XR IMAGING Diagnoses Swelling of left hand Procedures XR HAND GENERAL 3V PA/LAT/OBL LEFT RADEX HAND MINIMUM 3 VIEWS Boo Marina, DO [address] [place] [address] [place] [address] Referral ID Status Reason Start Date Expiration Date V isits Requested Visits Authorized [id number] Closed Auto-Generate d Referral 06/15/2021 04/20/2022 1 1 [facility] Summary Purpose Family History No Family History [...] FoundNo Family History Records Found Advance Directives Documents on File Type Date Recorded Patient Occupational Rehabilitation Aide Expl anation Advance Directive(s) 02/25/2020 11:53 AM Advance Directive(s) 01/14/2020 10:59 AM Documents on File Type Date Recorded Patient Occupational Rehabilitation Aide Expl anation Advance Directive(s) 02/25/2020 11:53 AM Advance Directive(s) 01/14/2020 10:59 AM Latest Code Status on File Code Status Date Activated Date Inactivated Comments Full Code 12/06/2022 3:06 AM 12/10/2022 8:54 PM Question Answer Comments Full Code Order Discussed With: Patient Date Activated Date Inactivated Comments 12/06/2022 3:06 AM 12/10/2022 8:54 PM Question Answer Comments Full Code Order Discussed With: Patient Reason for Referral Specialty Diagnoses / Procedures Referred By Contac t Referred To Contact Vascular Medicine Diagnoses Numbness of toes Neuropathy Paresthesia of foot, bilateral PVD (peripheral vascular disease) (HCC) Procedures CONSULT TO VASCULAR MEDICINE OFFICE/OUTPATIENT [facility] 60-74 MINUTES Zoraida Hodge APRN.[employer] [address] [place] [address] Referral ID Status Reason Start Date Expiration Date Visits Requested Visits Authorized [id number] Pending Review PCP Requested Referral 11/29/2021 11/29/2022 1 1 Specialty Diagnoses / Procedures Referred By Contac t Referred To Contact Nephrology Diagnoses Elevated serum creatinine Stage 3b chronic kidney disease (HCC) Procedures CONSULT TO NEPHROLOGY OFFICE/OUTPATIENT [facility] 60-74 MINUTES Boo Marina, DO [address] [place] [address] Referral ID Status Reason Start Date Expiration Date Visits Requested Visits Authorized [id number] Pending Review PCP Requested Referral 01/09/2022 01/09/2023 1 1 Specialty Diagnoses / Procedures Referred By Contac t Referred To Contact Nephrology Diagnoses Elevated serum creatinine Procedures CONSULT TO NEPHROLOGY OFFICE/OUTPATIENT [facility] 60-74 MINUTES Boo Marina, DO [address] [place] [address] Referral ID Status Reason Start Date Expiration Date Visits Requested Visits Authorized [id number] Authorized PCP Requested Referral 10/17/2022 10/17/2023 1 1 Medications Administered Section Active Administered Medications - up to 3 most recent administrations Medication Order MAR Action Action Date Dose Rate Site fluorescein-benoxinate 0.25-0.4 % 1 Drop (FLURESS) 1 Drop, BOTH EYES, DIRECTED, Starting on Fri01/29/22 at 1430, Until Fri01/30/22 at 0159, Administer for applanation tonometry. In the event of a Fluress shortage, administer [place]-Fluor 1 drop into both eyes as directed [...] section and content) DATE CREATED AUTHOR 10/10/2017 [facility] DATE CREATED AUTHOR AUTHOR'S ORGANIZ ATION 10/10/2017 [facility] DATE CREATED AUTHOR AUTHOR'S ORGANIZ ATION 10/13/2017 [facility] DATE CREATED AUTHOR AUTHOR'S ORGANIZ ATION 10/14/2017 [facility] DATE CREATED AUTHOR AUTHOR'S ORGANIZ ATION 03/03/2020 [facility] DATE CREATED AUTHOR AUTHOR'S ORGANIZ ATION 04/27/2020 [facility] DATE CREATED AUTHOR AUTHOR'S ORGANIZ ATION 02/28/2022 [facility] DATE CREATED AUTHOR AUTHOR'S ORGANIZ ATION 09/04/2022 [facility] ([place]) DATE CREATED AUTHOR AUTHOR'S ORGANIZ ATION 12/15/2022 [facility] DATE CREATED AUTHOR AUTHOR'S ORGANIZ ATION 12/16/2022 [facility] nt DATE CREATED AUTHOR AUTHOR'S ORGANIZ ATION 02/24/2023 [facility] DATE CREATED AUTHOR AUTHOR'S ORGANIZ ATION 01/25/2024 [facility] DATE CREATED AUTHOR AUTHOR'S ORGANIZ ATION 01/26/2024 [facility] DATE CREATED AUTHOR AUTHOR'S ORGANIZ ATION 01/28/2024 [facility] DATE CREATED AUTHOR AUTHOR'S ORGANIZ ATION 02/17/2024 [facility] DATE CREATED AUTHOR AUTHOR'S ORGANIZ ATION 03/04/2024 [facility] DATE CREATED AUTHOR AUTHOR'S ORGANIZ ATION 03/23/2024 [facility] EPIC Source Comments (unrecognize d section and content) In the event this informatio n is protected by the Federal Confidentiality of Alcohol and Drug Abuse Patient Records regulations: The Federal rules restrict any use of the information to criminally investigate or prosecute any alcohol or drug abuse patient.[facility] the event this information is protected by the Federal Confidentiality of Alcohol and Drug Abuse Patient Records regulations: The Federal rules restrict any use of the information to criminally investigate or prosecute any alcohol or drug abuse patient.[facility] the event this information is protected by the Federal Confidentiality of Alcohol and Drug Abuse Patient Records regulations: The Federal rules restrict any use of the information to criminally investigate or prosecute any alcohol or drug abuse patient.[facility] the event this information is protected by the Federal Confidentiality of Alcohol and Drug Abuse Patient Records regulations: The Federal rules restrict any use of the information to criminally investigate or prosecute any alcohol or drug abuse patient.[facility] the event this information is protected by the Federal Confidentiality of Alcohol and Drug Abuse Patient Records regulations: The Federal rules restrict any use of the information to criminally investigate or prosecute any alcohol or drug abuse patient.[facility] the event this information is protected by the Federal Confidentiality of Alcohol and Drug Abuse Patient Records regulations: The Federal rules restrict any use of the information to criminally investigate or prosecute any alcohol or drug abuse patient.[facility] the event this information is protected by the Federal Confidentiality of Alcohol and Drug Abuse Patient Records regulations: The Federal rules restrict any use of the information to criminally investigate or prosecute any alcohol or drug abuse patient.[facility] Center[facility] the event this information is protected by the Federal Confidentiality of Alcohol and Drug Abuse Patient Records regulations: The Federal rules restrict any use of the information to criminally investigate or prosecute any alcohol or drug abuse patient.[facility] CenterIn the event this information is protected by the Federal Confidentiality of Alcohol and Drug Abuse Patient Records regulations: The Federal rules restrict any use of the information to criminally investigate or prosecute any alcohol or drug abuse patient.[facility] CenterIn the event this information is protected by the Federal Confidentiality of Alcohol and Drug Abuse Patient Records regulations: The Federal rules restrict any use of the information to criminally investigate or prosecute any alcohol or drug abuse patient.[facility] CenterIn the event this information is protected by the Federal Confidentiality of Alcohol and Drug Abuse Patient Records regulations: The Federal rules restrict any use of the information to criminally investigate or prosecute any alcohol or drug abuse patient.[facility] CenterIn the event this information is protected by the Federal Confidentiality of Alcohol and Drug Abuse Patient Records regulations: The Federal rules restrict any use of the information to criminally investigate or prosecute any alcohol or drug abuse patient.[facility] CenterIn the event this information is protected by the Federal Confidentiality of Alcohol and Drug Abuse Patient Records regulations: The Federal rules restrict any use of the information to criminally investigate or prosecute any alcohol or drug abuse patient.[facility] CenterIn the event this information is protected by the Federal Confidentiality of Alcohol and Drug Abuse Patient Records regulations: The Federal rules restrict any use of the information to criminally investigate or prosecute any alcohol or drug abuse patient.[facility] CenterIn the event this information is protected by the Federal Confidentiality of Alcohol and Drug Abuse Patient Records regulations: The Federal rules restrict any use of the information to criminally investigate or prosecute any alcohol or drug abuse patient.[facility] CenterIn the event this information is protected by the Federal Confidentiality of Alcohol and Drug Abuse Patient Records regulations: The Federal rules restrict any use of the information to criminally investigate or prosecute any alcohol or drug abuse patient.[facility] CenterIn the event this information is protected by the Federal Confidentiality of Alcohol and Drug Abuse Patient Records regulations: The Federal rules restrict any use of the information to criminally investigate or prosecute any alcohol or drug abuse patient.[facility] CenterIn the event this information is protected by the Federal Confidentiality of Alcohol and Drug Abuse Patient Records regulations: The Federal rules restrict any use of the information to criminally investigate or prosecute any alcohol or drug abuse patient.[facility] CenterIn the event this information is protected by the Federal Confidentiality of Alcohol and Drug Abuse Patient Records regulations: The Federal rules restrict any use of the information to criminally investigate or prosecute any alcohol or drug abuse patient.[facility] CenterIn the event this information is protected by the Federal Confidentiality of Alcohol and Drug Abuse Patient Records regulations: The Federal rules restrict any use of the information to criminally investigate or prosecute any alcohol or drug abuse patient.[facility] CenterIn the event this information is protected by the Federal Confidentiality of Alcohol and Drug Abuse Patient Records regulations: The Federal rules restrict any use of the information to criminally investigate or prosecute any alcohol or drug abuse patient.[facility] CenterIn the event this information is protected by the Federal Confidentiality of Alcohol and Drug Abuse Patient Records regulations: The Federal rules restrict any use of the information to criminally investigate or prosecute any alcohol or drug abuse patient.[facility] CenterIn the event this information is protected by the Federal Confidentiality of Alcohol and Drug Abuse Patient Records regulations: The Federal rules restrict any use of the information to criminally investigate or prosecute any alcohol or drug abuse patient.[facility] CenterIn the event this information is protected by the Federal Confidentiality of Alcohol and Drug Abuse Patient Records regulations: The Federal rules restrict any use of the information to criminally investigate or prosecute any alcohol or drug abuse patient.[facility] CenterIn the event this information is protected by the Federal Confidentiality of Alcohol and Drug Abuse Patient Records regulations: The Federal rules restrict any use of the information to criminally investigate or prosecute any alcohol or drug abuse patient.[facility] CenterIn the event this information is protected by the Federal Confidentiality of Alcohol and Drug Abuse Patient Records regulations: The Federal rules restrict any use of the information to criminally investigate or prosecute any alcohol or drug abuse patient.[facility] CenterIn the event this information is protected by the Federal Confidentiality of Alcohol and Drug Abuse Patient Records regulations: The Federal rules restrict any use of the information to criminally investigate or prosecute any alcohol or drug abuse patient.[facility] the event this information is protected by the Federal Confidentiality of Alcohol and Drug Abuse Patient Records regulations: The Federal rules restrict any use of the information to criminally investigate or prosecute any alcohol or drug abuse patient.[facility] CenterIn the event this information is protected by the Federal Confidentiality of Alcohol and Drug Abuse Patient Records regulations: The Federal rules restrict any use of the information to criminally investigate or prosecute any alcohol or drug abuse patient.[facility] CenterIn the event this information is protected by the Federal Confidentiality of Alcohol and Drug Abuse Patient Records regulations: The Federal rules restrict any use of the information to criminally investigate or prosecute any alcohol or drug abuse patient.[facility] CenterIn the event this information is protected by the Federal Confidentiality of Alcohol and Drug Abuse Patient Records regulations: The Federal rules restrict any use of the information to criminally investigate or prosecute any alcohol or drug abuse patient.[facility] CenterIn the event this information is protected by the Federal Confidentiality of Alcohol and Drug Abuse Patient Records regulations: The Federal rules restrict any use of the information to criminally investigate or prosecute any alcohol or drug abuse patient.[facility] CenterIn the event this information is protected by the Federal Confidentiality of Alcohol and Drug Abuse Patient Records regulations: The Federal rules restrict any use of the information to criminally investigate or prosecute any alcohol or drug abuse patient.[facility] CenterIn the event this information is protected by the Federal Confidentiality of Alcohol and Drug Abuse Patient Records regulations: The Federal rules restrict any use of the information to criminally investigate or prosecute any alcohol or drug abuse patient.[facility] CenterIn the event this information is protected by the Federal Confidentiality of Alcohol and Drug Abuse Patient Records regulations: The Federal rules restrict any use of the information to criminally investigate or prosecute any alcohol or drug abuse patient.[facility] CenterIn the event this information is protected by the Federal Confidentiality of Alcohol and Drug Abuse Patient Records regulations: The Federal rules restrict any use of the information to criminally investigate or prosecute any alcohol or drug abuse patient.[facility] CenterIn the event this information is protected by the Federal Confidentiality of Alcohol and Drug Abuse Patient Records regulations: The Federal rules restrict any use of the information to criminally investigate or prosecute any alcohol or drug abuse patient.[facility] CenterIn the event this information is protected by the Federal Confidentiality of Alcohol and Drug Abuse Patient Records regulations: The Federal rules restrict any use of the information to criminally investigate or prosecute any alcohol or drug abuse patient.[facility] CenterIn the event this information is protected by the Federal Confidentiality of Alcohol and Drug Abuse Patient Records regulations: The Federal rules restrict any use of the information to criminally investigate or prosecute any alcohol or drug abuse patient.[facility] CenterIn the event this information is protected by the Federal Confidentiality of Alcohol and Drug Abuse Patient Records regulations: The Federal rules restrict any use of the information to criminally investigate or prosecute any alcohol or drug abuse patient.[facility] CenterIn the event this information is protected by the Federal Confidentiality of Alcohol and Drug Abuse Patient Records regulations: The Federal rules restrict any use of the information to criminally investigate or prosecute any alcohol or drug abuse patient.[facility] CenterIn the event this information is protected by the Federal Confidentiality of Alcohol and Drug Abuse Patient Records regulations: The Federal rules restrict any use of the information to criminally investigate or prosecute any alcohol or drug abuse patient.[facility] CenterIn the event this information is protected by the Federal Confidentiality of Alcohol and Drug Abuse Patient Records regulations: The Federal rules restrict any use of the information to criminally investigate or prosecute any alcohol or drug abuse patient.[facility] CenterIn the event this information is protected by the Federal Confidentiality of Alcohol and Drug Abuse Patient Records regulations: The Federal rules restrict any use of the information to criminally investigate or prosecute any alcohol or drug abuse patient.[facility] CenterIn the event this information is protected by the Federal Confidentiality of Alcohol and Drug Abuse Patient Records regulations: The Federal rules restrict any use of the information to criminally investigate or prosecute any alcohol or drug abuse patient.[facility] CenterIn the event this information is protected by the Federal Confidentiality of Alcohol and Drug Abuse Patient Records regulations: The Federal rules restrict any use of the information to criminally investigate or prosecute any alcohol or drug abuse patient.[facility] CenterIn the event this information is protected by the Federal Confidentiality of Alcohol and Drug Abuse Patient Records regulations: The Federal rules restrict any use of the information to criminally investigate or prosecute any alcohol or drug abuse patient.[facility] CenterIn the event this information is protected by the Federal Confidentiality of Alcohol and Drug Abuse Patient Records regulations: The Federal rules restrict any use of the information to criminally investigate or prosecute any alcohol or drug abuse patient.[facility] CenterIn the event this information is protected by the Federal Confidentiality of Alcohol and Drug Abuse Patient Records regulations: The Federal rules restrict any use of the information to criminally investigate or prosecute any alcohol or drug abuse patient.[facility] CenterIn the event this information is protected by the Federal Confidentiality of Alcohol and Drug Abuse Patient Records regulations: The Federal rules restrict any use of the information to criminally investigate or prosecute any alcohol or drug abuse patient.[facility] CenterIn the event this information is protected by the Federal Confidentiality of Alcohol and Drug Abuse Patient Records regulations: The Federal rules restrict any use of the information to criminally investigate or prosecute any alcohol or drug abuse patient.[facility] CenterIn the event this information is protected by the Federal Confidentiality of Alcohol and Drug Abuse Patient Records regulations: The Federal rules restrict any use of the information to criminally investigate or prosecute any alcohol or drug abuse patient.[facility] CenterIn the event this information is protected by the Federal Confidentiality of Alcohol and Drug Abuse Patient Records regulations: The Federal rules restrict any use of the information to criminally investigate or prosecute any alcohol or drug abuse patient.[facility] CenterIn the event this information is protected by the Federal Confidentiality of Alcohol and Drug Abuse Patient Records regulations: The Federal rules restrict any use of the information to criminally investigate or prosecute any alcohol or drug abuse patient.[facility] CenterIn the event this information is protected by the Federal Confidentiality of Alcohol and Drug Abuse Patient Records regulations: The Federal rules restrict any use of the information to criminally investigate or prosecute any alcohol or drug abuse patient.[facility] CenterIn the event this information is protected by the Federal Confidentiality of Alcohol and Drug Abuse Patient Records regulations: The Federal rules restrict any use of the information to criminally investigate or prosecute any alcohol or drug abuse patient.[facility] CenterIn the event this information is protected by the Federal Confidentiality of Alcohol and Drug Abuse Patient Records regulations: The Federal rules restrict any use of the information to criminally investigate or prosecute any alcohol or drug abuse patient.[facility] CenterIn the event this information is protected by the Federal Confidentiality of Alcohol and Drug Abuse Patient Records regulations: The Federal rules restrict any use of the information to criminally investigate or prosecute any alcohol or drug abuse patient.[facility] CenterIn the event this information is protected by the Federal Confidentiality of Alcohol and Drug Abuse Patient Records regulations: The Federal rules restrict any use of the information to criminally investigate or prosecute any alcohol or drug abuse patient.[facility] CenterIn the event this information is protected by the Federal Confidentiality of Alcohol and Drug Abuse Patient Records regulations: The Federal rules restrict any use of the information to criminally investigate or prosecute any alcohol or drug abuse patient.[facility] CenterIn the event this information is protected by the Federal Confidentiality of Alcohol and Drug Abuse Patient Records regulations: The Federal rules restrict any use of the information to criminally investigate or prosecute any alcohol or drug abuse patient.[facility] CenterIn the event this information is protected by the Federal Confidentiality of Alcohol and Drug Abuse Patient Records regulations: The Federal rules restrict any use of the information to criminally investigate or prosecute any alcohol or drug abuse patient.[facility] CenterIn the event this information is protected by the Federal Confidentiality of Alcohol and Drug Abuse Patient Records regulations: The Federal rules restrict any use of the information to criminally investigate or prosecute any alcohol or drug abuse patient.[facility] CenterIn the event this information is protected by the Federal Confidentiality of Alcohol and Drug Abuse Patient Records regulations: The Federal rules restrict any use of the information to criminally investigate or prosecute any alcohol or drug abuse patient.[facility] CenterIn the event this information is protected by the Federal Confidentiality of Alcohol and Drug Abuse Patient Records regulations: The Federal rules restrict any use of the information to criminally investigate or prosecute any alcohol or drug abuse patient.[facility] CenterIn the event this information is protected by the Federal Confidentiality of Alcohol and Drug Abuse Patient Records regulations: The Federal rules restrict any use of the information to criminally investigate or prosecute any alcohol or drug abuse patient.[facility] Reason for Visit (unrecogniz ed section and content) Reason Comments Plan of Care Reason Comments Schedule Surgery add CS lead to PPM Reason Comments Appt concerns Reason Comments Refill Request Reason Comments Appointment Patient can't come t o [place] Reason Comments Numbness bilateral feet x day s Ear Problem dry skin on bilatera l ears Specialty Diagnoses / Procedures Referred By Shani Referred To Contact Family Practice / FAMILY MEDICINE Diagnoses Numbness/tingling bilateral toes--See Triage Note Procedures 4C EST Self Zoraida Hodge, [employer] [address] [place] [address] Referral ID Status Reason Start Date Expiration Date Visits Re quested Visits Authorized [id number] Closed 09/28/2021 04/20/2022 1 1 Reason Comments pharmacy questioning ear drop rx Reason Comments Blood Pressure Reason Comments Lump Specialty Diagnoses / Procedures Referred By Contjuan Referred To Contact Ophthalmology Diagnoses Eyelid lesion Procedures CONSULT TO OPHTHALMOLOGY OFFICE/OUTPATIENT NEW HIGH MDM 60-74 MINUTES Boo Marina, DO [address] [place] [address] Referral ID Status Reason Start Date Expiration Date V isits Requested Visits Authorized [id number] Closed PCP Requested Referral 10/08/2021 10/08/2022 1 1 Reason Onset Date Comments Refill Request 10/12/2021 Reason Comments Patient Update Reason Comments Results Reason Comments Results Reason Comments Fax Requested Reason Comments Musculoskeletal Problem Reason Onset Date Comments F/U 3 Month Immunizations 01/07/2022 Flu vaccination Specialty Diagnoses / Procedures Referred By Contac t Referred To Contact Family Medicine / FAMILY MEDICINE Diagnoses 3 Month follow-up Procedures 4C EST Self Boo Marina, DO [address] [place] [address] Referral ID Status Reason Start Date Expiration Date Visits Re quested Visits Authorized [id number] Closed 01/07/2022 04/20/2022 1 1 Reason Comments [...] Onset Date Comments Transition Of Care 12/11/2022 [facility] d/c 12/10/22 Reason Comments [facility] 5 Main follow up Reason Comments Hospital F/U Stroke, Dementia, ne eds 11/11 home care Reason Comments New Patient New pt here to [facility] follow up from [facility] last FridayDEC [address] [facility] Reason Onset Date Comments Transition Of Care 12/18/2022 TCM Follow-up day 8 Specialty Diagnoses / Procedures Referred By Contac t Referred To Contact Radiology / RADIO GENERAL [facility] Diagnoses Rhonchi [R09.89] Procedures RADIOLOGIC EXAM CHEST 2 VIEWS XR CHEST Boo Marina, DO [address] [place] [address] Radio General [facility] [address] [place] [address] Referral ID Status Reason Start Date Expiration Date V isits Requested Visits Authorized [id number] Closed OON/Self Pay Override 06/26/2020 09/24/2020 1 1 Reason Comments Numbness Tingling Stroke Memory Loss Reason Comments Numbness Stroke Reason Comments Ingrown Toenail Reason Comments Follow-up 3D POST AVULSION- PO SS INFECTION Reason Comments Follow-up 10d avulsion, lt gou t Reason Comments Eyelid Problem Care Teams (unrecognized sec tion and content) Chemical Etching Processor Relationship Specialty Start Date End Date Boo Marina, DO [address] [place] [address] PCP - General Family Practice 05/27/16 Chemical Etching Processor Relationship Specialty Start Date End Date Boo Marina, DO [address] [place] [address] PCP - General Family Practice 05/27/16 Chemical Etching Processor Relationship Specialty Start Date End Date Boo Marina DO [address] [place] [address] PCP - General Family Practice 05/27/16 Chemical Etching Processor Relationship Specialty Start Date End Date Boo Marina, DO [address] [place] [address] PCP - General Family Practice 05/27/16 Chemical Etching Processor Relationship Specialty Start Date End Date Boo Marina, DO [address] [place] [address] PCP - General Family Practice 05/27/16 Chemical Etching Processor Relationship Specialty Start Date End Date Boo Marina, DO [address] [place] [address] PCP - General Family Practice 05/27/16 Chemical Etching Processor Relationship Specialty Start Date End Date Boo Marina, DO [address] [place] [address] PCP - General Family Practice 05/27/16 Chemical Etching Processor Relationship Specialty Start Date End Date Boo Marina, DO [address] [place] [address] PCP - General Family Practice 05/27/16 Chemical Etching Processor Relationship Specialty Start Date End Date Boo Marina, DO [address] [place] [address] PCP - General Family Practice 05/27/16 Chemical Etching Processor Relationship Specialty Start Date End Date Boo Marina, DO [address] [place] [address] PCP - General Family Practice 05/27/16 Chemical Etching Processor Relationship Specialty Start Date End Date Boo Marina, DO [address] [place] [address] PCP - General Family Practice 05/27/16 Luke Beach, DO [address] [address] Specialty Glass Deposition Tender Cardiology 09/19/21 Chemical Etching Processor Relationship Specialty Start Date End Date Boo Marina, DO [address] [place] [address] PCP - General Family Practice 05/27/16 Luke Beach, DO [address] [address] Specialty Glass Deposition Tender Cardiology 09/19/21 Chemical Etching Processor Relationship Specialty Start Date End Date Boo Marina, DO [address] [place] [address] PCP - General Family Practice 05/27/16 Luke Beach, DO [address] [address] Specialty Glass Deposition Tender Cardiology 09/19/21 Chemical Etching Processor Relationship Specialty Start Date End Date Boo Marina, DO [address] [place] [address] PCP - General Family Practice 05/27/16 Luke Beach, DO [address] [address] Specialty Glass Deposition Tender Cardiology 09/19/21 Chemical Etching Processor Relationship Specialty Start Date End Date Boo Marina, DO [address] [place] [address] PCP - General Family Practice 05/27/16 Luke Beach, DO [address] [address] Specialty Glass Deposition Tender Cardiology 09/19/21 Chemical Etching Processor Relationship Specialty Start Date End Date Boo Marina, DO [address] [place] [address] PCP - General Family Practice 05/27/16 Luek Beach, DO [address] [address] Specialty Glass Deposition Tender Cardiology 09/19/21 Chemical Etching Processor Relationship Specialty Start Date End Date Boo Marina, DO [address] [place] [address] PCP - General Family Practice 05/27/16 Luke Beach, DO [address] [address] Specialty Glass Deposition Tender Cardiology 09/19/21 Chemical Etching Processor Relationship Specialty Start Date End Date Boo Marina, DO [address] [place] [address] PCP - General Family Practice 05/27/16 Luke Beach, DO [address] [address] Specialty Glass Deposition Tender Cardiology 09/19/21 Chemical Etching Processor Relationship Specialty Start Date End Date Boo Marina, DO [address] [place] [address] PCP - General Family Practice 05/27/16 Luke Beach, DO [address] [address] Specialty Glass Deposition Tender Cardiology 09/19/21 Chemical Etching Processor Relationship Specialty Start Date End Date Boo Marina, DO [address] [place] [address] PCP - General Family Practice 05/27/16 Luke Beach, DO [address] [address] Specialty Glass Deposition Tender Cardiology 09/19/21 Chemical Etching Processor Relationship Specialty Start Date End Date Boo Marina, DO [address] [place] [address] PCP - General Family Practice 05/27/16 Luke Beach, DO [address] [address] Specialty Glass Deposition Tender Cardiology 09/19/21 Chemical Etching Processor Relationship Specialty Start Date End Date Boo Marina, DO [address] [place] [address] PCP - General Family Practice 05/27/16 Luke Beach, DO [address] [address] Specialty Glass Deposition Tender Cardiology 09/19/21 Chemical Etching Processor Relationship Specialty Start Date End Date Boo Marina, DO [address] [place] [address] PCP - General Family Medicine 05/27/16 Luke Beach, DO [address] [address] Specialty Glass Deposition Tender Cardiology 09/19/21 Chemical Etching Processor Relationship Specialty Start Date End Date Boo Marina, DO [address] [place] [address] PCP - General Family Medicine 05/27/16 Luke Beach, DO [address] [address] Specialty Glass Deposition Tender Cardiology 09/19/21 Chemical Etching Processor Relationship Specialty Start Date End Date Boo Marina, DO [address] [place] [address] PCP - General Family Medicine 05/27/16 Luke Beach, DO [address] [address] Specialty Glass Deposition Tender Cardiology 09/19/21 Chemical Etching Processor Relationship Specialty Start Date End Date Boo Marina, DO [address] [place] [address] PCP - General Family Medicine 05/27/16 Luke Beach, DO [address] [address] Specialty Glass Deposition Tender Cardiology 09/19/21 Chemical Etching Processor Relationship Specialty Start Date End Date Boo Marina, DO [address] [place] [address] PCP - General Family Medicine 05/27/16 Luke Beach, DO [address] [address] Specialty Glass Deposition Tender Cardiology 09/19/21 Chemical Etching Processor Relationship Specialty Start Date End Date Boo Marina, DO [address] [place] [address] PCP - General Family Medicine 05/27/16 Luke Beach, DO [address] [address] Specialty Glass Deposition Tender Cardiology 09/19/21 Chemical Etching Processor Relationship Specialty Start Date End Date Boo Marina, DO [address] [place] [address] PCP - General Family Medicine 05/27/16 Luke Beach, DO [address] [address] Specialty Glass Deposition Tender Cardiology 09/19/21 Chemical Etching Processor Relationship Specialty Start Date End Date Boo Marina, DO [address] [place] [address] PCP - General Family Medicine 05/27/16 Luke Beach, DO [address] [address] Specialty Glass Deposition Tender Cardiology 09/19/21 Chemical Etching Processor Relationship Specialty Start Date End Date Boo Marina, DO [address] [place] [address] PCP - General Family Medicine 05/27/16 Luke Beach, DO [address] [address] Specialty Glass Deposition Tender Cardiology 09/19/21 Chemical Etching Processor Relationship Specialty Start Date End Date Boo Marina, DO [address] [place] [address] PCP - General Family Medicine 05/27/16 Luke Beach, DO [address] [address] Specialty Glass Deposition Tender Cardiology 09/19/21 Chemical Etching Processor Relationship Specialty Start Date End Date Boo Marina, DO [address] [place] [address] PCP - General Family Medicine 05/27/16 Luke Beach, DO [address] [address] Specialty Glass Deposition Tender Cardiology 09/19/21 Chemical Etching Processor Relationship Specialty Start Date End Date Boo Marina, DO [address] [place] [address] PCP - General Family Medicine 05/27/16 Luke Beach, DO [address] [address] Specialty Glass Deposition Tender Cardiology 09/19/21 Chemical Etching Processor Relationship Specialty Start Date End Date Boo Marina, [address] [place] [address] PCP - General Family Medicine 05/27/16 Luke Beach, DO [address] [address] Specialty Glass Deposition Tender Cardiology 09/19/21 Chemical Etching Processor Relationship Specialty Start Date End Date Boo Marina, [address] [place] [address] PCP - General Family Medicine 05/27/16 Luke Beach, DO [address] [address] Specialty Glass Deposition Tender Cardiology 09/19/21 Chemical Etching Processor Relationship Specialty Start Date End Date Boo Marina DO [address] [place] [address] PCP - General Family Medicine 05/27/16 Luke Beach DO [address] [address] Specialty Glass Deposition Tender Cardiology 09/19/21 Chemical Etching Processor Relationship Specialty Start Date End Date Boo Marina DO [address] [place] [address] PCP - General Family Medicine 05/27/16 Luke Beach DO [address] [address] Specialty Glass Deposition Tender Cardiology 09/19/21 Chemical Etching Processor Relationship Specialty Start Date End Date Boo Marina DO [address] [place] [address] PCP - General Family Medicine 05/27/16 Luke Beach DO [address] [address] Specialty Glass Deposition Tender Cardiology 09/19/21 Femi Olivera, cryptographic vulnerability analyst Sr. Manager 12/10/22 01/10/23 Chemical Etching Processor Relationship Specialty Start Date End Date Boo Marina DO [address] [place] [address] PCP - General Family Medicine 05/27/16 Luke Beach DO [address] [address] Specialty Glass Deposition Tender Cardiology 09/19/21 Femi Olivera, cryptographic vulnerability analyst Sr. Manager 12/10/22 01/10/23 Chemical Etching Processor Relationship Specialty Start Date End Date Boo Marina DO [address] [place] [address] PCP - General Family Medicine 05/27/16 Luke Beach DO [address] [address] Specialty Glass Deposition Tender Cardiology 09/19/21 Femi Olivera, cryptographic vulnerability analyst Sr. Manager 12/10/22 01/10/23 Chemical Etching Processor Relationship Specialty Start Date End Date Boo Marina DO [address] [place] [address] PCP - General Family Medicine 05/27/16 Luke Beach DO [address] [address] Specialty Glass Deposition Tender Cardiology 09/19/21 Femi Olivera, cryptographic vulnerability analyst Sr. Manager 12/10/22 01/10/23 Chemical Etching Processor Relationship Specialty Start Date End Date Luke Sun DO [address] [place] [address] PCP - General Primary Care 12/16/22 Luke Beach DO [address] [address] Specialty Glass Deposition Tender Cardiology 09/19/21 Femi Olivera, cryptographic vulnerability analyst Sr. Manager 12/10/22 01/10/23 Chemical Etching Processor Relationship Specialty Start Date End Date Luke Sun DO [address] [place] [address] PCP - General Primary Care 12/16/22 Luke Beach DO [address] [address] Specialty Glass Deposition Tender Cardiology 09/19/21 Femi Olivera, cryptographic vulnerability analyst Sr. Manager 12/10/22 01/10/23 Chemical Etching Processor Relationship Specialty Start Date End Date Luke Sun DO [address] [place] [address] PCP - General Primary Care 12/16/22 Luke Beach DO [address] [address] Specialty Glass Deposition Tender Cardiology 09/19/21 Chemical Etching Processor Relationship Specialty Start Date End Date Boo Marina DO [address] [place] [address] PCP - General Family Medicine 05/27/16 12/15/22 Chemical Etching Processor Relationship Specialty Start Date End Date Boo Marina DO [address] [place] [address] PCP - General Family Medicine 05/27/16 12/15/22 Chemical Etching Processor Relationship Specialty Start Date End Date Oni Jarvis MD [address] [place] [address] PCP - General Family Medicine 07/22/23 Chemical Etching Processor Relationship Specialty Start Date End Date Oni Jarvis MD [address] [place] [address] PCP - General Family Medicine 07/22/23 Chemical Etching Processor Relationship Specialty Start Date End Date Oni Jarvis MD [address] [place] [address] PCP - General Family Medicine 07/22/23 Chemical Etching Processor Relationship Specialty Start Date End Date Oni Jarvis MD [address] [place] [id number] PCP - General Family Medicine 07/22/23 Chemical Etching Processor Relationship Specialty Start Date End Date Oni Jarvis MD [address] [place] [id number] PCP - General Family Medicine 07/22/23 Chemical Etching Processor Relationship Specialty Start Date End Date Oni Jarvis MD [address] [place], [place] [id number] PCP - General Family Medicine 07/22/23 Chemical Etching Processor Relationship Specialty Start Date End Date Oni Jarvis MD [address] [place], [place] [id number] PCP - General Family Medicine 07/22/23 Chemical Etching Processor Relationship Specialty Start Date End Date nOi Jarvis MD [address] [place], [place] [id number] PCP - General Family Medicine 07/22/23 Chemical Etching Processor Relationship Specialty Start Date End Date Oni Jarvis MD [address] [place], [place] [id number] PCP - General Family Medicine 07/22/23 Chemical Etching Processor Relationship Specialty Start Date End Date Oni Jarvis MD [address] [place], [place] [id number] PCP - General Family Medicine 07/22/23 Chemical Etching Processor Relationship Specialty Start Date End Date Oni Jarvis MD [address] [place], [place] [id number] PCP - General Family Medicine 07/22/23 Care Team (unrecognized sect ion and content) Care Team Personnel Name: BOO MARINA DO Member Role: Primary Care Physician Address: Address: [address] [place] [address]- Care Team Related Persons Name: PRIYANKA TENORIO Care Team Personnel Name: BOO MARINA DO Member Role: Primary Care Physician Address: Address: [address] [place] [address]- Care Team Related Persons Name: PRIYANKA TENORIO FOR RECORDS PERTAINING TO PATIENTS WHO ARE [...] BE BASED ON THE PRIMARY CLINICAL RECORDS. [employer] provides no warranty or guarantee of the accuracy or completeness of information in this document.
[2024-04-06 20:49] LABS: Basophils Absolute Auto 0.1 10^3/uL (0.0-0.1); Basophils Percent Auto 1.3 % (0.2-2.0); Eosinophils Absolute Auto 0.3 10^3/uL (0.0-0.7); Eosinophils Percent Auto 4.6 % (0.9-7.0); Hematocrit 38.5 % (42.0-54.0); Hemoglobin 10.9 g/dL (14.0-18.0); Immature Granulocytes Abs Auto 0.02 10^3/uL (0.00-0.03); Immature Granulocytes Pct Auto 0.4 % (0.0-0.5); Lymphocytes Absolute Auto 1.4 10^3/uL (1.2-3.8); Lymphocytes Percent Auto 26.2 % (20.5-60.0); Mean Corpuscular HGB Conc 28.3 g/dL (29.9-35.2); Mean Corpuscular Hemoglobin 22.9 pg (25.9-34.0); Mean Corpuscular Volume 80.9 fL (80.0-94.0); Mean Platelet Volume 10.8 fL (9.5-13.5); Monocytes Absolute Auto 0.7 10^3/uL (0.3-0.8); Monocytes Percent Auto 12.8 % (1.7-12.0); Neutrophils Percent Auto 54.7 % (43.0-75.0); Platelet Count 150 10^3/uL (150-450); Red Cell Distribution Width 16.9 % (11.0-15.0); White Blood Count 5.5 10^3/uL (4.0-11.0)
[2024-04-06 20:58] LABS: Anion Gap 7.8; BUN Creatinine Ratio 10.9; Calcium 8.9 mg/dL (8.5-10.1); Carbon Dioxide 32.4 mmol/L (21.0-32.0); Chloride 109 mmol/L (98-107); Estimated GFR (African America 40 (>=60 mL/min/1.73m^2); Estimated GFR (Non-African Ame 33 (>=60 mL/min/1.73m^2); Glucose 111 mg/dL (74-106); Potassium 4.2 mmol/L (3.5-5.1); Sodium 145 mmol/L (136-145)
[2024-04-06 21:01] LABS: Red Blood Count 4.76 10^6/uL (4.70-6.10)
== END 2024-04-06 22:04 | disposition home or self-care (01) ==
PROVIDERS: Emergency Provider Student in an Organized Health Care Education/Training Program
DX: H81.10 Benign paroxysmal vertigo, unspecified ear (principal); I10 Essential (primary) hypertension; Z87.891 Personal history of nicotine dependence
CPT/HCPCS: 36415; 80048; 85025; 93005; 99285